=== PATIENT | female | born 1955 | race Caucasian/White ===

== ENCOUNTER → 2018-08-05 07:28 | Outpatient (CLI) | payer MEDICARE, SELFPAY ==
--- NOTE | 2018-08-05 07:38 | CT_ITS ---
STUDY: LOW DOSE CT LUNG CANCER SCREENING REASON FOR EXAM: Female, 63 years old. Patient has a 80 pack-year smoking history. RADIATION DOSAGE (If Supplied By Facility): CTDIvol = ( 2.01 ) mGy, DLP = ( 64.19 ) mGycm TECHNIQUE: No contrast was administered. Low dose technique was utilized (average mAS-38 and kVp 120). 1.25 mm axial source images with a slice interval of 1.25-mm were reconstructed in lung windows. 2.5 mm axial source images with a slice interval of 2.5-mm were reconstructed in lung windows. 5.0 mm axial source images with a slice interval of 5.0-mm were reconstructed in soft tissue windows. Nodule measured using lung windows on PACS and/or independent workstation with automated measurement of minimum and maximum diameter. Nodule measurement reported as average diameter rounded to the nearest whole number. Growth is defined as an increase ins size of greater than 1.5 mm. COMPARISON: None. NODULES: No suspicious nodules seen. Emphysema: Mild degree of emphysematous changes. Aorta: Atherosclerotic plaques of the aortic arch. A vascular stent is seen in the proximal portion of the left subclavian artery. Coronary arteries: Coronary artery calcification. Mediastinal nodes: Small benign-appearing mediastinal lymph nodes. Other chest and abdominal findings: Degenerative changes of the thoracic vertebrae. CT/Low Dose CT Lung Screening IMPRESSION: Lung-RADS category 2 - Continue annual screening with LDCT in 12 months. IMPORTANT NOTES FOR USE: ACR Lung-RADS Version 1.0 Assessment Categories Release Date: February 15, 2014 Category: Coded 0-4 bases on nodule(s) with highest degree of suspicion. Negative screen is defined as categories 1 and 2; a positive screen is defined as categories 3 and 4. Category 3 and 4A nodules that are unchanged on interval CT should be coded as category 2, and individuals returned to screening in 12 months. Category 4X: Category 3 or 4 nodules with additional imaging findings that increase the suspicion of lung cancer, such as spiculation, GGN that doubles in size in 1 year, enlarged lymph notes, etc. Category Modifiers: S (significant finding unrelated to lung cancer) and C (prior history of treated lung cancer) may be added to the 0-4 Lung-RADS Electronically Signed: Nick Cosme MD at 9:35 EDT Tel [phone], Service support ,
== END ==
PROVIDERS: Family Provider Family Medicine; PCP Family Medicine; Referring Provider Family Medicine; Visit Provider Family Medicine
DX: Z87.891 Personal history of nicotine dependence (principal)
CPT/HCPCS: G0297

== ENCOUNTER 2021-07-15 12:16 | Emergency (ER) | payer MEDICARE, SELFPAY ==
[2021-07-15 12:17] VITALS: BP 155/85; PULSE 73; RESP 16; TEMP 36.6; O2SAT 98; BMI 26.6
--- NOTE | 2021-07-15 12:50 | EDS_ITS ---
HPI History of Present Illness Chief Complaint: General Illness Narrative Narrative: 66-year-old female presenting with generalized fatigue, nausea, crampy abdominal pain, headache. Patient states that she initially started having symptoms about 2 weeks ago initially had a fever which is now resolved. She does still have chills and body aches. She denies chest pain. She admits to rhinorrhea and nasal congestion but does not have a significant cough or shortness of breath. Patient states that she has been able to keep down fluids. She is making urine. she states she has been constipated. Patient states that she did meet with her boss who did a rapid Covid today prior to arrival and this was negative. [facility] Medical History FHx: carotid endarterectomy HTN (hypertension) Hyperlipidemia Kidney stone Home Medications amlodipine 5 mg PO DAILY 07/15/21 [History Last Taken Unknown] carvedilol 25 mg PO BID 07/15/21 [History Last Taken Unknown] clopidogrel 75 mg PO DAILY 07/15/21 [History Last Taken Unknown] eszopiclone 3 mg PO QHS 07/15/21 [History Last Taken Unknown] losartan 100 mg PO DAILY 07/15/21 [History Last Taken Unknown] ondansetron 4 mg PO Q8H PRN PRN #14 tab 07/15/21 [Rx Last Taken Unknown] Allergy/AdvReac Type Severity Reaction Status Date / Time codeine AdvReac Nausea/Vom/ Verified 07/15/21 12:18 Diarrhea tramadol AdvReac HALLUCINATI Verified 07/15/21 12:18 ONS Surgical History History of cardiac catheterization History of coronary artery stent placement Hx of cholecystectomy S/P CABG x 1 Social History Smoking Status: Former smoker ROS ROS ED Constitutional Constitutional ED: Reports chills and fever(s) Eyes Eyes: Denies blurry vision or diplopia ENT ENT ED: Reports rhinorrhea and other Details: Nasal congestion Cardiovascular Cardiovascular: Denies chest pain or palpitations Respiratory/Chest Respiratory/Chest: Reports cough; Denies dyspnea or sputum Gastrointestinal Gastrointestinal: Reports abdominal pain, constipation and nausea Genitourinary Genitourinary ED: Denies dysuria Musculoskeletal Musculoskeletal: Reports myalgias; Denies arthralgias, back pain or neck pain Integumentary Denies Abrasions or rash Neurologic Neurologic: Reports headache(s); Denies paresthesias EXAM Physical Exam Const Vital Signs: 07/15/21 12:17 07/15/21 12:45 07/15/21 14:50 Temperature 97.9 F 97.8 F Temperature Source Temporal Oral Pulse Rate 73 71 Respiratory Rate 16 18 Respiratory Effort Short of Breath Respiratory Pattern Normal Blood Pressure 155/85 H 134/77 H Blood Pressure Mean 108 96 Pulse Ox 98 94 Oxygen Delivery Method Room Air Room Air 07/15/21 15:27 Temperature Temperature Source Pulse Rate 68 Respiratory Rate 18 Respiratory Effort Respiratory Pattern Blood Pressure 139/68 H Blood Pressure Mean Pulse Ox Oxygen Delivery Method Positive well nourished General Appearance ED: NAD; Negative for pallor HEENT Reports moist mucous membranes Negative for trauma Eyes PERRL and EOMs intact bilaterally Resp normal respiratory effort and clear to auscultation bilaterally Cardio regular rate and regular rhythm GI non-distended GI Narrative: No focal tenderness. Abdomen nonperitoneal. Palpation: soft Extremity normal to inspection Neuro oriented x3 Sensorium / Orientation: alert Psych mental status grossly normal Skin no rashes or lesions noted General Skin Exam: Negative for jaundice or pallor MDM MDM MDM Narrative Medical decision making narrative: Patient presenting with viral symptoms as well as abdominal pain. I did obtain lab work and she has no leukocytosis and her hemoglobin hematocrit are stable. Renal function and electrolytes unremarkable. LFTs are normal. Lipase is negative. Procalcitonin is negative. Urinalysis urinalysis is negative for infection. Chest x-ray on my interp retation shows no acute cardiopulmonary process and the radiologist does agree. CT of the abdomen pelvis is negative for acute intra-abdominal process. Patient is tested for COVID-19 and this is also negative. She feels improved with Toradol and Zofran. At this point I feel she has a negative work-up and she is safe to be discharged home. She is given return precautions. She will be given a prescription for Zofran for home. Impression: 1. Viral syndrome 2. Abdominal pain Lab Data Attestation: I reviewed the patient's lab results. Labs: Laboratory Results - last 24 hr 07/15/21 07/15/21 07/15/21 13:00 13:00 13:00 WBC 6.4 RBC 3.65 L Hgb 11.2 L Hct 34.4 L MCV 94.2 MCH 30.7 MCHC 32.6 RDW Std Deviation 51.7 H RDW Coeff of Dave 15.0 H Plt Count 202 MPV 12.6 H Immature Gran % (Auto) 0.500 Neut % (Auto) 63.5 Lymph % (Auto) 24.2 [place] % (Auto) 7.5 Eos % (Auto) 4.1 Baso % (Auto) 0.2 Absolute Neuts (auto) 4.0 Absolute Lymphs (auto) 1.54 Nucleated RBC % 0 Sodium 139 Potassium 4.3 Chloride 107 Carbon Dioxide 26.0 Anion Gap 6 BUN 16 Creatinine 1.10 H Estim Creat Clear Calc 36.94 Est GFR (MDRD) Af Amer 64 Est GFR (MDRD) Non-Af 53 L BUN/Creatinine Ratio 14.5 Glucose 93 Calcium 10.0 Total Bilirubin 0.40 AST 24 ALT 21 Alkaline Phosphatase 105 Total Protein 8.6 H Albumin 3.9 Globulin 4.7 H Albumin/Globulin Ratio 0.8 L Lipase 231 Procalcitonin < 0.04 Urine Color Urine Clarity Urine pH Ur Specific [place] Urine Protein Urine Glucose (UA) Urine Ketones Urine Occult Blood Urine Nitrite Urine Bilirubin Urine Urobilinogen Ur Leukocyte Esterase Urine RBC Urine WBC Ur Squamous Epith Cells Urine Bacteria Urine Mucus COVID-19 (TL) 07/15/21 07/15/21 13:11 14:20 WBC RBC Hgb Hct MCV MCH MCHC RDW Std Deviation RDW Coeff of Dave Plt Count MPV Immature Gran % (Auto) Neut % (Auto) Lymph % (Auto) [place] % (Auto) Eos % (Auto) Baso % (Auto) Absolute Neuts (auto) Absolute Lymphs (auto) Nucleated RBC % Sodium Potassium Chloride Carbon Dioxide Anion Gap BUN Creatinine Estim Creat Clear Calc Est GFR (MDRD) Af Amer Est GFR (MDRD) Non-Af BUN/Creatinine Ratio Glucose Calcium Total Bilirubin AST ALT Alkaline Phosphatase Total Protein Albumin Globulin Albumin/Globulin Ratio Lipase Procalcitonin Urine Color Yellow Urine Clarity Clear Urine pH 6.5 Ur Specific [place] 1.010 Urine Protein Negative Urine Glucose (UA) Normal Urine Ketones Negative Urine Occult Blood Negative Urine Nitrite Negative Urine Bilirubin Negative Urine Urobilinogen Normal Ur Leukocyte Esterase Negative Urine RBC 0 SEEN Urine WBC 0 SEEN Ur Squamous Epith Cells 0 SEEN Urine Bacteria 0 SEEN Urine Mucus 0 SEEN COVID-19 (TL) Not Detected Radiography Diagnostic Testing: Radiology Impression Abdomen/Pelvis CT 07/15/21 13:04 IMPRESSION: No acute abnormality. Severe coronary artery disease and atherosclerosis. Electronically Signed: Feli Reeves MD at 15:06 EDT Tel , Service support , Chest X-Ray 07/15/21 13:04 IMPRESSION: Cardiomegaly with no acute or active cardiopulmonary disease. Electronically Signed: Venkata Alcaraz MD at 14:51 EDT , Service support , Discharge Plan Triage Chief Complaint: General Illness ED Provider: Yasir Byrnes Dx/Rx/DC Orders Instructions: Understanding Headache Pain, ED Abdominal Pain Unkn Cause Fem, ED Viral Syndrome (Adult) Prescriptions: New ondansetron 4 mg tablet,disintegrating 4 mg PO Q8H PRN PRN (Reason: Nausea) Qty: 14 RF: 0 No Action carvedilol 25 mg tablet 25 mg PO BID RF: 0 clopidogrel 75 mg tablet 75 mg PO DAILY RF: 0 amlodipine 5 mg tablet 5 mg PO DAILY RF: 0 losartan 100 mg tablet 100 mg PO DAILY RF: 0 eszopiclone 3 mg tablet 3 mg PO QHS RF: 0 Primary Care Provider: Markell Harris NP Referrals: Markell Harris NP, CAT SCANNER OPERATOR-C [Primary Care Provider] - Disposition Disposition: Home, Self Care Discharge Date/Time: 07/15/21 15:29
--- NOTE | 2021-07-15 13:04 | CT_ITS ---
STUDY: CT ABDOMEN AND PELVIS WITH CONTRAST REASON FOR EXAM: Female, 66 years old. Abdominal pain RADIATION DOSAGE (If Supplied By Facility): CTDIvol = ( 14.65 ) mGy, DLP = ( 754.75 ) mGycm TECHNIQUE: CT images were obtained from the dome of the diaphragm to the symphysis pubis without oral contrast. IV 100mL Isovue-370 was administered. Sagittal and coronal images were reconstructed. Individualized dose optimization techniques were used for this CT. COMPARISON: None. FINDINGS: The visualized lung bases are unremarkable. Coronary arteries are severely diseased with stents in the LAD and RCA. Normal liver. There is mild physiologic range extrahepatic biliary dilation. Gallbladder is removed.. Normal spleen. Normal pancreas. Normal bilateral adrenal glands. Normal right kidney. Normal left kidney. There are simple bilateral renal cysts not requiring further diagnostic evaluation. There is no intestinal obstruction. Appendix is not seen. There is sigmoid diverticulosis without diverticulitis. Aorta is normal caliber with heavy calcified plaque burden without aneurysm or stenosis. Normal urinary bladder. Uterus is removed. Normal abdominal wall. There are chronic compression deformities of superior endplates of L1 and L4. CT/Abdomen/Pelvis W IV Cont ONLY IMPRESSION: No acute abnormality. Severe coronary artery disease and atherosclerosis. Electronically Signed: Feli Reeves MD at 15:06 EDT Tel , Service support ,
--- NOTE | 2021-07-15 13:04 | RAD_ITS ---
STUDY: X-RAY CHEST REASON FOR EXAM: Female, 66 years old. Cough. TECHNIQUE: Single frontal view of the chest. COMPARISON: None. FINDINGS: The lungs are clear and expanded. There is no demonstrated pleural abnormality. Cardiomegaly with aortic tortuosity. Normal mediastinum and juventino. Normal visualized pulmonary arteries. There is no demonstrated abnormality of the visualized soft tissue structures of the upper abdomen. RAD/Chest 1 View (Portable) IMPRESSION: Cardiomegaly with no acute or active cardiopulmonary disease. Electronically Signed: Venkata Alcaraz MD at 14:51 EDT , Service support ,
[2021-07-15 13:18] LABS: Absolute Lymphocyte Count 1.54 X10^3/uL (0.83-4.51); Basophil# 0.01 X10^3/uL; Basophil% 0.2 % (0-1); Eosinophil# 0.26 X10^3/uL; Eosinophils% 4.1 % (0-5); Hematocrit 34.4 % (37-47); Hemoglobin 11.2 g/dL (12.0-15.0); Lymphocyte # 1.54 X10^3/ul (0.83-4.51); Lymphocyte % 24.2 % (19-41); Mean Corp Hgb Conc 32.6 g/dL (32-36); Mean Corpuscular Hgb 30.7 pg (27.0-32.0); Mean Corpuscular Volume 94.2 fL (81-99); Mean Platelet Vol. 12.6 fl (6.2-12.0); Monocyte# 0.48 X10^3/uL; Monocyte% 7.5 % (0-10); NRBC Flagged by Analyzer 0 % (0-5); Neutrophil # 4.04 X10^3/uL (2.7-7.7); Neutrophil % 63.5 % (47-70); Platelet Count 202 K/mm3 (150-450); RBC Distribution Width SD 51.7 fl (35.1-43.9); Red Blood Count 3.65 M/mm3 (4.2-5.4); White Blood Count 6.4 K/mm3 (4.4-11.0)
[2021-07-15] MEDS: Ondansetron 4 MG/2 ML Vial IV (13:18)
[2021-07-15] MEDS: Ketorolac 15 MG/ML Vial IV (13:18)
[2021-07-15 13:37] LABS: ALB/GLOB Ratio 0.8 RATIO (0.9-2.4); AST(SGOT) 24 U/L (15-37); Alanine Aminotransfer ALT/SGPT 21 U/L (13-56); Albumin, Serum 3.9 g/dL (3.2-5.0); Alkaline Phosphatase 105 U/L (45-117); Anion Gap 6 (5-15); BUN 16 mg/dL (7-18); BUN/Creat Ratio 14.5 RATIO (10-20); Chloride 107 mmol/L (98-107); EST Glomerular Filtration Rate 53 mL/min (>60); Est Glom Filt Rate - Afr Amer 64 mL/min (>60); Estimated Creatinine Clearance 36.94 ml/min; Globulin 4.7 g/dL (2.2-4.2); Glucose 93 mg/dL (74-106); Lipase 231 U/L (73-393); Potassium 4.3 mmol/L (3.5-5.1); Protein, Total 8.6 g/dL (6.4-8.2); Sodium Level 139 mmol/L (136-145)
[2021-07-15 14:02] LABS: Procalcitonin < 0.04 ng/mL (0.00-0.09)
[2021-07-15 14:50] VITALS: BP 134/77; PULSE 71; RESP 18; TEMP 36.6; O2SAT 94
[2021-07-15 14:58] LABS: Bacteria 0 SEEN /hpf (None Seen); Mucous, Urine 0 SEEN /hpf (<or=2+); Red Blood Cells-Urine 0 SEEN /hpf (0-5); Squamous Epithelial Cells - UA 0 SEEN /hpf (5-10); White Blood Cells 0 SEEN /hpf (0-5)
[2021-07-15 15:02] LABS: Color, Urine Yellow (Yellow); Glucose, Dipstick Normal (Normal); Ketone-Dipstick Negative (Negative); Leukocyte Esterase-Dipstick Negative /ul (Negative); Nitrite-Dipstick Negative (Negative); Occult Blood-Urine Negative /ul (Negative); Protein-Dipstick Negative (Negative); Urine Bilirubin Dipstick Negative (Negative); Urine Clarity Clear (Clear); Urine Urobilinogen Normal (Normal); Urine pH 6.5 (5.0 - 8.0)
[2021-07-15 15:27] VITALS: BP 139/68; PULSE 68; RESP 18
== END 2021-07-15 15:29 | disposition home or self-care (01) ==
PROVIDERS: Emergency Provider Student in an Organized Health Care Education/Training Program; PCP Nurse Practitioner Primary Care
DX: B34.9 Viral infection, unspecified (principal); R05 Cough; M79.10 Myalgia, unspecified site; R10.9 Unspecified abdominal pain; R11.0 Nausea; Z20.822 Contact with and (suspected) exposure to COVID-19; R51.9 Headache, unspecified; R09.81 Nasal congestion; J34.89 Other specified disorders of nose and nasal sinuses; K59.00 Constipation, unspecified; Z79.899 Other long term (current) drug therapy; Z79.02 Long term (current) use of antithrombotics/antiplatelets; Z95.5 Presence of coronary angioplasty implant and graft; Z95.1 Presence of aortocoronary bypass graft; Z87.891 Personal history of nicotine dependence
CPT/HCPCS: 71045; 74177; 80053; 81001; 83690; 84145; 85025; 87635; 96374; 96375; 99284; Q9967; U0005; A4216; J2405; U0003

== ENCOUNTER 2024-04-19 13:08 | Emergency (ER) | payer MEDICARE, SELFPAY ==
[2024-04-19] VITALS (7 sets, daily range): BP systolic 132–163; BP diastolic 58–115; PULSE 64–93; RESP 14–17; TEMP 36.3–37.2; O2SAT 94–98; BMI 26.1
[2024-04-19 13:40] LABS: Absolute Lymphocyte Count 0.74 X10^3/uL (0.83-4.51); Absolute Neutrophil Count 13.1 X10^3/uL (2.0-7.7); Basophil# 0.01 X10^3/uL; Basophil% 0.1 % (0-1); Hematocrit 30.1 % (37-47); Hemoglobin 9.9 g/dL (12.0-15.0); Lymphocyte # 0.74 X10^3/ul (0.83-4.51); Mean Corp Hgb Conc 32.9 g/dL (32-36); Mean Corpuscular Hgb 31.4 pg (27.0-32.0); Mean Corpuscular Volume 95.6 fL (81-99); Mean Platelet Vol. 11.5 fl (6.2-12.0); Monocyte# 0.79 X10^3/uL; Monocyte% 5.4 % (0-10); NRBC Flagged by Analyzer 0 % (0-5); Neutrophil % 88.9 % (47-70); Platelet Count 200 K/mm3 (150-450); RBC Distribution Width CV 15.9 % (11.6-14.6); RBC Distribution Width SD 55.2 fl (35.1-43.9); Red Blood Count 3.15 M/mm3 (4.2-5.4); White Blood Count 14.7 K/mm3 (4.4-11.0)
[2024-04-19 13:58] LABS: ALB/GLOB Ratio 0.5 RATIO (0.9-2.4); AST(SGOT) 34 U/L (15-37); Alanine Aminotransfer ALT/SGPT 41 U/L (13-56); Albumin, Serum 2.8 g/dL (3.2-5.0); Alkaline Phosphatase 153 U/L (45-117); Anion Gap 12 (5-15); BUN 29 mg/dL (7-18); Calcium,Total 9.7 mg/dL (8.5-10.1); Chloride 93 mmol/L (98-107); Creatinine, Serum 1.45 mg/dL (0.55-1.02); EST Glomerular Filtration Rate 38 mL/min (>60); Est Glom Filt Rate - Afr Amer 46 mL/min (>60); Estimated Creatinine Clearance 30.64 ml/min; Globulin 5.4 g/dL (2.2-4.2); Glucose 124 mg/dL (74-106); Lipase 43 U/L (13-75); Potassium 4.4 mmol/L (3.5-5.1); Protein, Total 8.2 g/dL (6.4-8.2); Sodium Level 128 mmol/L (136-145)
--- NOTE | 2024-04-19 14:11 | CT_ITS ---
STUDY: CT Abdomen And Pelvis W/ Contrast Injection 04/19/2024 3:03 PM REASON FOR EXAM: Female, 68 years old. Abdominal pain llq abdominal pain Individualized dose optimization techniques were used for this CT. COMPARISON: 07.15.21 TECHNIQUE: CT Abdomen And Pelvis W/ Contrast Injection IV 70mL Isovue-370 FINDINGS: There are atherosclerotic calcifications of visualized coronary arteries. There are bilateral pleural effusions. There is intrahepatic ductal dilation. There is non-visualization of the gallbladder, which may be secondary to either contraction or a prior cholecystectomy. Normal spleen. Normal pancreas. Dilated common bile duct at 9 mm. Normal bilateral adrenal glands. There are hypodensities in the right kidney. These are consistent for cysts. No follow up required. There are hypodensities in the left kidney. These are consistent for cysts. No follow up required. Normal visualized stomach. Normal small intestine. There are multiple colonic diverticula consistent with diverticulosis. There is non-visualization of the appendix. There are calcifications of the abdominal aorta. This is consistent for atherosclerotic disease. There is NO abdominal aortic aneurysm. Vascular workup can be obtained based on clinical correlation. Normal inferior vena cava. Subcentimeter mesenteric lymph nodes. Normal urinary bladder. There is absence of the uterus consistent with a prior hysterectomy. Normal abdominal wall. Normal osseous structures. CT/Abdomen/Pelvis W IV Cont ONLY IMPRESSION: (NOT LISTED IN ORDER OF SIGNIFICANCE) Dilated common bile duct. MRCP can better evaluate. There is intrahepatic ductal dilation. Stable bilateral renal cysts. Other findings as above. Electronically Signed: Herman Trujillo MD at 15:07 EDT ,
--- NOTE | 2024-04-19 14:14 | EX.ED.DYSGE1 ---
HPI History of Present Illness Chief Complaint: Abd Pain Narrative Narrative: Patient presenting here today with multiple complaints. She states that initially she had an injury to the left hip a few months ago when she fell in the shower and she has been having pain in this left hip since then. She had it imaged initially and she is actually had an MRI as well. She states it continues to hurt when she walks but she is able to ambulate. Initially it was thought maybe she broke the hip but she never had an identified hip fracture. She states that her primary care physician wrote her for some narcotic pain medication but she stopped taking it because it was making her constipated. She has not had a bowel movement in 5 days. She states has been trying laxatives without any relief. Patient states she also has had a fever of with a Tmax of 100.9 over the last couple days. She states when she coughs she does have some green sputum. She does feel rundown. Family states she is not eating and drinking much the last few days. No urinary or vaginal complaints. Denies chest pain or shortness of breath. Patient states that even though she already had an MRI her primary care sent her back for a CT of the hip with IV contrast. This also showed What looked like arthritis. [facility] Medical History Kidney stone FHx: carotid endarterectomy Hyperlipidemia HTN (hypertension) Home Medications ?Medication ?Instructions ?Recorded ?Last Taken ?Type amlodipine 5 mg tablet 5 mg PO DAILY 07/15/21 04/13/24 History carvedilol 25 mg tablet 25 mg PO BID 07/15/21 04/06/24 History clopidogrel 75 mg tablet 75 mg PO DAILY 07/15/21 04/13/24 History eszopiclone 3 mg tablet 3 mg PO QHS 07/15/21 04/06/24 History losartan 100 mg tablet 100 mg PO DAILY 07/15/21 04/06/24 History ondansetron 4 mg disintegrating 4 mg PO Q8H PRN PRN Nausea #14 tabs 07/15/21 04/06/24 Rx tablet Allergy/AdvReac Type Severity Reaction Status Date / Time codeine AdvReac Nausea/Vom/ Verified 04/19/24 15:11 Diarrhea tramadol AdvReac HALLUCINATI Verified 04/19/24 15:11 ONS Surgical History Hx of cholecystectomy S/P CABG x 1 History of coronary artery stent placement History of cardiac catheterization Social History Smoking Status: Former smoker ROS ROS ED Constitutional Constitutional ED: Reports chills and fever(s); Denies sweats Eyes Eyes: Denies blurry vision or change in vision ENT ENT ED: Denies ear pain or sore throat Cardiovascular Cardiovascular: Denies chest pain, palpitations or racing heartbeat Respiratory/Chest Respiratory/Chest: Reports cough; Denies dyspnea, dyspnea on exertion or sputum Gastrointestinal Gastrointestinal: Reports abdominal pain, constipation and nausea; Denies diarrhea or vomiting Genitourinary Genitourinary ED: Denies dysuria, hematuria or urinary frequency Musculoskeletal Musculoskeletal: Denies arthralgias, myalgias or neck pain Integumentary Denies abscess, Abrasions or rash Neurologic Neurologic: Denies headache(s), paresthesias or weakness Psychiatric Psychiatric: Denies anxiety, depression, suicidal ideation or suicidal thoughts Endocrine Endocrinology: Denies polydipsia or polyuria EXAM Physical Exam Const Vital Signs: 04/19/24 13:09 04/19/24 13:09 04/19/24 13:10 Temperature 97.3 F L 97.3 F L Temperature Source Oral Oral Pulse Rate 93 89 93 Respiratory Rate 14 14 14 Blood Pressure 163/115 H 163/115 H 163/115 H Blood Pressure Mean 131 131 131 Pulse Ox 97 97 97 Oxygen Delivery Method Room Air Room Air Room Air 04/19/24 14:10 04/19/24 15:00 04/19/24 15:08 Temperature 98.9 F 98.6 F 98.6 F Temperature Source Temporal Oral Oral Pulse Rate 64 87 87 Respiratory Rate 16 17 17 Blood Pressure 132/76 H 134/58 H 134/58 H Blood Pressure Mean 94 83 83 Pulse Ox 98 95 95 Oxygen Delivery Method Room Air Room Air Room Air 04/19/24 16:00 Temperature 98.6 F Temperature Source Oral Pulse Rate 89 Respiratory Rate 17 Blood Pressure 144/66 H Blood Pressure Mean 92 Pulse Ox 94 Oxygen Delivery Method Room Air Positive well nourished General Appearance ED: NAD; Negative for pallor HEENT Reports moist mucous membranes Eyes PERRL and EOMs intact bilaterally Chest Wall inspection of chest normal Resp normal respiratory effort and clear to auscultation bilaterally Auscultation: Negative for rales, rhonchi or wheezes Cardio regular rate and regular rhythm GI normal to inspection, nondistended, normoactive bowel sounds Extremity Extremity Narrative: There is mild tenderness to palpation to the left hip. Unable to there is some internally actually rotated with minimal limitation. Patient is able to flex the hip on the bed yesterday. On any difficulty. Past no rashes or bruising. Neuro oriented x3 and CN's II-XII intact bilaterally Sensorium / Orientation: alert Psych mental status grossly normal Skin no rashes or lesions noted General Skin Exam: Negative for jaundice or pallor MDM MDM MDM Narrative Medical decision making narrative: Patient presenting with hip pain. She is already had an MRI and a CT. I was able to log into [employer], and I was able to find pertinent medical records available for review to compare to the patient's current lab/imaging/workup. CT head. 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 I cannot find the MRI image. Her CBC showed a white blood cell count of 12.7. Hemoglobin was 10. Platelets were 243. She had an ESR of 109 and a CRP of 5.8. Today her CBC shows a leukocytosis of 14.7. Hemoglobin 9.9 and near her baseline. Creatinine is elevated today at 1.45. Baseline creatinine appears to be 1.27. Patient is given IV fluids. She is given Reglan for nausea. She declines analgesia as she is concerned it might be making her more constipated. Patient presenting with right flank pain. Differential includes colitis, diverticulitis, gastritis, pancreatitis, constipation, UTI, pyelonephritis, renal calculi, ureteral calculi, bowel obstruction, malignancy, dehydration, electrolyte abnormalities. CBC will be obtained to assess white blood cell count, hemoglobin, platelets. CMP to assess renal function, electrolytes, liver function, glucose. Lipase to assess for pancreatitis. Urinalysis to assess for UTI. I held off on imaging of the hip today because she just had a CT scan which I could find. It does appear that she has advanced osteonecrosis based on the CT scan. I do not believe she has a septic hip however. Lipase is normal today. LFTs appear normal. CT of the abdomen pelvis interpreted as dilated common bile ducts and intrahepatic ducts however the patient does have any pain in this region. Her LFTs are normal with exception of an alkaline phosphatase of 153. Patient does not have a gallbladder. COVID, RSV, influenza are negative. I have not found a source of her fever but we discussed this it could be viral. I will send her home with some nausea medicine. I recommended laxatives that she is not having bowel movements. Tylenol and ibuprofen for fevers and myalgias. She has an orthopedic appointment next week for her hip. 1. Abdominal pain 2. Febrile illness 3. Leukocytosis 4. Left hip osteonecrosis Lab Data Attestation: I reviewed the patient's lab results. Labs: Laboratory Results - last 24 hr 04/19/24 04/19/24 13:32 14:27 WBC 14.7 H RBC 3.15 L Hgb 9.9 L Hct 30.1 L MCV 95.6 MCH 31.4 MCHC 32.9 RDW Std Deviation 55.2 H RDW Coeff of Dave 15.9 H Plt Count 200 MPV 11.5 Immature Gran % (Auto) 0.600 Neut % (Auto) 88.9 H Lymph % (Auto) 5.0 L [place] % (Auto) 5.4 Eos % (Auto) 0.0 Baso % (Auto) 0.1 Absolute Neuts (auto) 13.1 H Absolute Lymphs (auto) 0.74 L Nucleated RBC % 0 Sodium 128 L Potassium 4.4 Chloride 93 L Carbon Dioxide 23.0 Anion Gap 12 BUN 29 H Creatinine 1.45 H Estim Creat Clear Calc 30.64 Est GFR (MDRD) Af Amer 46 L Est GFR (MDRD) Non-Af 38 L BUN/Creatinine Ratio 20.0 Glucose 124 H Calcium 9.7 Total Bilirubin 0.80 AST 34 ALT 41 Alkaline Phosphatase 153 H Total Protein 8.2 Albumin 2.8 L Globulin 5.4 H Albumin/Globulin Ratio 0.5 L Lipase 43 Urine Color Yellow Urine Clarity Sl. Cloudy Urine pH 5.0 Ur Specific [place] 1.015 Urine Protein 100 H Urine Glucose (UA) Normal Urine Ketones Negative Urine Occult Blood 50 H Urine Nitrite Negative Urine Bilirubin Negative Urine Urobilinogen Normal Ur Leukocyte Esterase 500 H Urine RBC 0 SEEN Urine WBC 25-50 SEEN Ur Squamous Epith Cells 5-10 SEEN Urine Bacteria 2+ Fine Granular Casts 0-5 SEEN Urine Mucus 0 SEEN Radiography Diagnostic Testing: Clinical Impression(s) from Imaging Studies Abdomen/Pelvis CT 04/19/24 14:11 IMPRESSION: (NOT LISTED IN ORDER OF SIGNIFICANCE) Dilated common bile duct. MRCP can better evaluate. There is intrahepatic ductal dilation. Stable bilateral renal cysts. Other findings as above. Electronically Signed: Herman rTujillo MD at 15:07 EDT , Chest X-Ray 04/19/24 14:43 IMPRESSION: There are no acute findings. Electronically Signed: Herman Trujillo MD at 15:00 EDT , Discharge Plan Triage Chief Complaint: Abd Pain Other Complaint: Back Fever ED Provider: Yasir Byrnes Dx/Rx/DC Orders Prescriptions: No Action carvedilol 25 mg tablet 25 mg PO BID Patient Comments: TAKE 1 TABLET BY MOUTH TWICE DAILY. clopidogrel 75 mg tablet 75 mg PO DAILY Patient Comments: TAKE 1 TABLET BY MOUTH EVERY DAY amlodipine 5 mg tablet 5 mg PO DAILY Patient Comments: TAKE 1 TABLET BY MOUTH EVERY DAY losartan 100 mg tablet 100 mg PO DAILY Patient Comments: TAKE 1 TABLET BY MOUTH EVERY DAY eszopiclone 3 mg tablet 3 mg PO QHS Patient Comments: TAKE ONE TABLET BY MOUTH AT BEDTIME NEEDED FOR INSOMNIA ondansetron 4 mg tablet,disintegrating 4 mg PO Q8H PRN PRN (Reason: Nausea) Qty: 14 0RF Primary Care Provider: Markell Harris NP Referrals: Markell Harris ROOFING SUPERVISOR, ROOFING SUPERVISOR-C [Primary Care Provider] - Print Language: [place] Islander
[2024-04-19] MEDS: 0.9% Normal Saline (1000mL) 1,000 ML 999 ML IV (14:29)
[2024-04-19] MEDS: Metoclopramide 10 MG/2 ML Vial IV (14:29)
[2024-04-19 14:33] LABS: Mucous, Urine 0 SEEN /hpf (<or=2+); Red Blood Cells-Urine 0 SEEN /hpf (0-5)
[2024-04-19 14:34] LABS: Color, Urine Yellow (Yellow); Glucose, Dipstick Normal (Normal); Ketone-Dipstick Negative (Negative); Leukocyte Esterase-Dipstick 500 /ul (Negative); Nitrite-Dipstick Negative (Negative); Occult Blood-Urine 50 /ul (Negative); Protein-Dipstick 100 mg/dl (Negative); Specific Gravity, Urine 1.015 (1.002-1.030); Urine Bilirubin Dipstick Negative (Negative); Urine Clarity Sl. Cloudy (Clear); Urine Urobilinogen Normal (Normal)
[2024-04-19 14:41] LABS: Bacteria 2+ /hpf (None Seen); Squamous Epithelial Cells - UA 5-10 SEEN /hpf (5-10)
[2024-04-19 14:42] LABS: Fine Granular Cast- Urine 0-5 SEEN /lpf (0-5); White Blood Cells 25-50 SEEN /hpf (0-5)
--- NOTE | 2024-04-19 14:43 | RAD_ITS ---
STUDY: XR Chest 1 View 04/19/2024 2:36 PM REASON FOR EXAM: Female, 68 years old. fever COMPARISON: 07/15/2021 TECHNIQUE: XR Chest 1 View FINDINGS: There is no demonstrated pleural abnormality. Normal heart size. Normal mediastinum. Normal juventino. Prominent appearing increased interstitial lung markings. Normal visualized pulmonary arteries. There is atherosclerotic calcification of the aortic arch with tortuosity. There are diffuse degenerative changes of the visualized thoracic spine. There is degenerative osteoarthritis of the bilateral shoulders. There are no acute findings of the upper abdomen. RAD/Chest 1 View IMPRESSION: There are no acute findings. Electronically Signed: Herman Trujillo MD at 15:00 EDT ,
== END 2024-04-19 16:28 | disposition home or self-care (01) ==
PROVIDERS: Emergency Provider Student in an Organized Health Care Education/Training Program; PCP Nurse Practitioner Primary Care; Visit Provider Student in an Organized Health Care Education/Training Program
DX: R10.9 Unspecified abdominal pain (principal); M87.852 Other osteonecrosis, left femur; R50.9 Fever, unspecified; M79.10 Myalgia, unspecified site; R11.0 Nausea; K59.00 Constipation, unspecified; I10 Essential (primary) hypertension; E78.5 Hyperlipidemia, unspecified; R05.9 Cough, unspecified; D72.829 Elevated white blood cell count, unspecified; Z11.52 Encounter for screening for COVID-19; Z79.02 Long term (current) use of antithrombotics/antiplatelets; Z79.899 Other long term (current) drug therapy; Z87.891 Personal history of nicotine dependence; Z95.1 Presence of aortocoronary bypass graft; Z95.5 Presence of coronary angioplasty implant and graft
CPT/HCPCS: 71045; 74177; 80053; 81001; 83690; 85025; 87631; 96361; 96374; 99285; Q9967; A4216

== ENCOUNTER 2024-08-16 17:47 | Observation (INO) | payer MEDICARE, SELFPAY ==
[2024-08-16 17:48] VITALS: BP 125/74; PULSE 77; RESP 18; TEMP 35.9; O2SAT 95; BMI 24.1
--- NOTE | 2024-08-16 18:09 | CT_ITS ---
EXAM: CT HEAD WITHOUT INTRAVENOUS CONTRAST CLINICAL INDICATION: confusion TECHNIQUE: Multiple axial images were obtained of the head without intravenous contrast. This CT exam was performed using one or more of the following dose reduction techniques: automated exposure control, adjustment of the mA and/or kV according to patient size, and/or use of iterative reconstruction technique. RADIATION DOSE: CTDIvol = 44.99 mGy, DLP = 779.24 mGy-cm. COMPARISON: No relevant prior studies available. FINDINGS: BRAIN AND EXTRA-AXIAL SPACES: Mild patchy low attenuation deep periventricular and subcortical chronic white matter changes. Minimal cerebral volume loss. No intra- or extra-axial hemorrhage. No evidence of acute infarct. No intracranial mass or mass effect. There is preservation of the nolasco/white matter interface. Posterior fossa structures are unremarkable. No hydrocephalus. Basal cisterns are patent. BONES/JOINTS: See below. SINUSES: Moderate mucosal thickening filling roughly half of the left maxillary sinus, no fluid levels. Remainder of the completely included paranasal sinuses are well aerated. Large defect in the cartilaginous nasal septum, 1.8 cm AP. MASTOID AIR CELLS: Unremarkable. Clear. ORBITS: Visualized globes, extraocular muscles, optic nerves and retrobulbar fat appear unremarkable. CT/Brain/Head without Contrast IMPRESSION: No acute findings in the head/brain. Mild chronic changes. Electronically Signed: Lois Beckett MD at 21:08 EDT ,
--- NOTE | 2024-08-16 18:09 | EKG12_ITS ---
Test Reason : CONFUSED Blood Pressure : / mmHG Vent. Rate : 071 BPM Atrial Rate : 071 BPM P-R Int : 148 ms QRS Dur : 084 ms QT Int : 434 ms P-R-T Axes : 014 052 063 degrees QTc Int : 471 ms Normal sinus rhythm Normal ECG Confirmed by REGINA ROGERS, RANJITH ([id number]), television news video editor ANN WHITE ([id number]) on 08/18/2024 7:54:27 AM Referred By: Confirmed By:RANJITH TAPIA MD
--- NOTE | 2024-08-16 18:14 | NURSING ---
NO OLD EKGS
--- NOTE | 2024-08-16 18:15 | EX.ED.DYSGE1 ---
HPI <JOSE Ruvalcaba - Last Filed: 08/16/24 22:11> History of Present Illness Chief Complaint: Confusion Narrative Narrative: Patient is a 69-year-old female with history of hypertension, recently had a right hip replacement presents to the [facility] with her daughter for confusion. Patient states that she is currently on oxycodone for pain, she took 1 at roughly 5 PM. She then was staring at the wall, started crying, asking for her mother and was not answering the daughter. Patient states that she sometimes does get sleepy on oxycodone however this was different. They then brought her to the emergency department. Patient does have a pale appearance however did not complain of any other problems. Patient that she has been having dark stools recently. Denies any fever or chills. PFSH <JOSE Ruvalcaba - Last Filed: 08/16/24 22:11> PFSH Medical History Kidney stone FHx: carotid endarterectomy Hyperlipidemia HTN (hypertension) Home Medications ?Medication ?Instructions ?Recorded ?Last Taken ?Type amlodipine 5 mg tablet 5 mg PO DAILY 07/15/21 04/13/24 History carvedilol 25 mg tablet 25 mg PO BID 07/15/21 04/06/24 History clopidogrel 75 mg tablet 75 mg PO DAILY 07/15/21 04/13/24 History eszopiclone 3 mg tablet 3 mg PO QHS 07/15/21 04/06/24 History ondansetron 4 mg disintegrating 4 mg PO Q8H PRN PRN Nausea #14 tabs 07/15/21 04/06/24 Rx tablet apixaban 5 mg tablet (Eliquis) 5 mg PO BID 08/16/24 Unknown History doxycycline hyclate 100 mg capsule 100 mg PO Q12.TCU 08/16/24 Unknown History duloxetine 60 mg capsule,delayed 60 mg PO DAILY 08/16/24 Unknown History release ferrous sulfate PO 08/16/24 Unknown History oxycodone 5 mg tablet 5 - 10 mg PO Q4H PRN PRN pain 08/16/24 Unknown History pantoprazole 40 mg tablet,delayed 40 mg PO DAILY 08/16/24 Unknown History release trazodone 50 mg tablet 50 mg PO QHS 08/16/24 Unknown History verapamil 120 mg tablet,extended 120 mg PO DAILY 08/16/24 Unknown History release Allergy/AdvReac Type Severity Reaction Status Date / Time codeine AdvReac Nausea/Vom/ Verified 08/16/24 17:57 Diarrhea Surgical History Hx of cholecystectomy S/P CABG x 1 History of coronary artery stent placement History of cardiac catheterization Social History Smoking Status: Former smoker ROS <JOSE Ruvalcaba - Last Filed: 08/16/24 22:11> ROS ED ROS Narrative Constitutional: Negative for fever, chills, weight loss. Positive for weakness Eyes: Negative for vision loss, vision change, double vision ENT: Negative for any sore throat, ear pain, congestion Cardiovascular: Negative for any chest pain, tightness, palpitations Respiratory: Negative for any cough, sputum production, hemoptysis, dyspnea, dyspnea on exertion, orthopnea Gastrointestinal: Negative for any abdominal pain, nausea, vomiting, diarrhea, constipation, blood in stool, blood in vomit. Positive for dark stool : Negative for any urinary frequency, dysuria, retention, blood in urine Muscle skeletal: Negative for any neck pain, back pain Neurological: Negative for any headache, syncope, dizziness. Positive for confusion Skin: Negative for any rashes, itching, abrasions, lacerations Psychiatric: Negative for any depression, anxiety, stress, suicidal ideation, homicidal ideation Hematologic: Negative for any excessive bruising, easy bleeding EXAM <JOSE Ruvalcaba - Last Filed: 08/16/24 22:11> Physical Exam Narrative Exam Narrative: Vital signs reviewed. Patient on my initial evaluation had stable vital signs. Patient is alert and orient x 4. Patient does have a significant pale appearance. HEET: Head normocephalic atraumatic, TMs clear bilaterally. Posterior pharynx is clear, dry mucous membranes. Nares clear bilaterally. Pale conjunctiva Neck: Supple with no lymphadenopathy or tenderness. No signs of meningismus. Cardiac: Regular rate and rhythm no murmurs gallops or rubs, equal peripheral pulses bilaterally. Respiratory: Lungs clear to auscultation bilaterally. No chest tenderness. Abdomen: Soft, nontender, nondistended. No abdominal bruit or pulsatile masses. No hepatosplenomegaly Extremities: No peripheral edema, no signs of gross trauma or deformity. Active full range of motion of all extremities. Neuro: Cranial nerves II through XII intact, no focal neurological deficits. Skin: Clean dry and intact with no rash, purpura, petechiae, vesicles or pustules. Backs/flank: No CVA tenderness, no midline spinal tenderness, no deformity. Psych: Normal mood and affect. No SI, HI or acute psychosis. Rectal: Rectal exam completed with female nurse mauro Alegria, there was no dried blood, there was no stool in the rectal vault, there is no stool in my finger. Const Vital Signs: 08/16/24 17:48 08/16/24 19:58 08/16/24 20:45 Temperature 96.7 F L Temperature Source Oral Pulse Rate 77 76 Pulse Rate [Lying] 74 Pulse Rate [Sitting (for 1 minute prior to obtaining)] 79 Pulse Rate [Standing (for 1 minute prior to obtaining)] 80 Respiratory Rate 18 18 Blood Pressure 125/74 H 114/71 Blood Pressure [Lying] 105/84 H Blood Pressure [Sitting (for 1 minute prior to obtaining)] 115/68 Blood Pressure [Standing (for 1 minute prior to obtaining)] 115/62 Blood Pressure Mean 91 85 Blood Pressure Mean [Lying] 91 Blood Pressure Mean [Sitting (for 1 minute prior to obtaining)] 83 Blood Pressure Mean [Standing (for 1 minute prior to obtaining)] 79 Pulse Ox 95 96 Oxygen Delivery Method Room Air Room Air 08/16/24 22:35 Temperature 98.1 F Temperature Source Pulse Rate 75 Pulse Rate [Lying] Pulse Rate [Sitting (for 1 minute prior to obtaining)] Pulse Rate [Standing (for 1 minute prior to obtaining)] Respiratory Rate 17 Blood Pressure 119/78 Blood Pressure [Lying] Blood Pressure [Sitting (for 1 minute prior to obtaining)] Blood Pressure [Standing (for 1 minute prior to obtaining)] Blood Pressure Mean 91 Blood Pressure Mean [Lying] Blood Pressure Mean [Sitting (for 1 minute prior to obtaining)] Blood Pressure Mean [Standing (for 1 minute prior to obtaining)] Pulse Ox 99 Oxygen Delivery Method Positive well nourished and well developed General Appearance ED: well developed <Dr. Gary Pascual MD - Last Filed: 08/16/24 22:51> Physical Exam Const Vital Signs: 08/16/24 17:48 08/16/24 19:58 08/16/24 20:45 Temperature 96.7 F L Temperature Source Oral Pulse Rate 77 76 Pulse Rate [Lying] 74 Pulse Rate [Sitting (for 1 minute prior to obtaining)] 79 Pulse Rate [Standing (for 1 minute prior to obtaining)] 80 Respiratory Rate 18 18 Blood Pressure 125/74 H 114/71 Blood Pressure [Lying] 105/84 H Blood Pressure [Sitting (for 1 minute prior to obtaining)] 115/68 Blood Pressure [Standing (for 1 minute prior to obtaining)] 115/62 Blood Pressure Mean 91 85 Blood Pressure Mean [Lying] 91 Blood Pressure Mean [Sitting (for 1 minute prior to obtaining)] 83 Blood Pressure Mean [Standing (for 1 minute prior to obtaining)] 79 Pulse Ox 95 96 Oxygen Delivery Method Room Air Room Air 08/16/24 22:35 Temperature 98.1 F Temperature Source Pulse Rate 75 Pulse Rate [Lying] Pulse Rate [Sitting (for 1 minute prior to obtaining)] Pulse Rate [Standing (for 1 minute prior to obtaining)] Respiratory Rate 17 Blood Pressure 119/78 Blood Pressure [Lying] Blood Pressure [Sitting (for 1 minute prior to obtaining)] Blood Pressure [Standing (for 1 minute prior to obtaining)] Blood Pressure Mean 91 Blood Pressure Mean [Lying] Blood Pressure Mean [Sitting (for 1 minute prior to obtaining)] Blood Pressure Mean [Standing (for 1 minute prior to obtaining)] Pulse Ox 99 Oxygen Delivery Method [facility] <JOSE Ruvalcaba - Last Filed: 08/16/24 22:11> [facility] Lab Data Labs: Laboratory Results - last 24 hr 08/16/24 08/16/24 18:30 20:00 WBC 11.1 H RBC 2.85 L Hgb 8.8 L Hct 27.7 L MCV 97.2 MCH 30.9 MCHC 31.8 L RDW Std Deviation 55.2 H RDW Coeff of Dave 15.9 H Plt Count 357 MPV 11.1 Immature Gran % (Auto) 0.600 Neut % (Auto) 73.8 H Lymph % (Auto) 14.6 L [place] % (Auto) 7.0 Eos % (Auto) 3.8 Baso % (Auto) 0.2 Absolute Neuts (auto) 8.2 H Absolute Lymphs (auto) 1.62 Nucleated RBC % 0.3 PT 16.7 H INR 1.4 Sodium 135 L Potassium 4.6 Chloride 100 Carbon Dioxide 28.0 Anion Gap 7 BUN 20 H Creatinine 1.31 H Estim Creat Clear Calc 32.26 Est GFR (MDRD) Af Amer 51 L Est GFR (MDRD) Non-Af 43 L BUN/Creatinine Ratio 15.3 Glucose 108 H Lactic Acid 1.1 Calcium 9.5 Total Bilirubin 0.70 AST 32 ALT 18 Alkaline Phosphatase 190 H Troponin I High Sens 6 Total Protein 7.9 Albumin 2.9 L Globulin 5.0 H Albumin/Globulin Ratio 0.6 L Lipase 31 Urine Color Yellow Urine Clarity Clear Urine pH 6.0 Ur Specific Center 1.015 Urine Protein 15 H Urine Glucose (UA) Normal Urine Ketones Negative Urine Occult Blood Negative Urine Nitrite Negative Urine Bilirubin Negative Urine Urobilinogen Normal Ur Leukocyte Esterase 25 H Urine RBC 0 SEEN Urine WBC 5-10 SEEN Ur Squamous Epith Cells 5-10 SEEN Urine Bacteria 1+ Urine Mucus 0 SEEN Radiography Diagnostic Testing: Clinical Impression(s) from Imaging Studies Brain CT 08/16/24 18:09 IMPRESSION: No acute findings in the head/brain. Mild chronic changes. Electronically Signed: Lois Beckett MD at 21:08 EDT , Chest X-Ray 08/16/24 18:35 IMPRESSION: No acute findings in the chest. Electronically Signed: Lois Beckett MD at 19:55 EDT , EKG Normal sinus rhythm, rate 71 bpm: Attestation: I personally reviewed and interpreted this EKG as follows: Interpretation: Sinus Rhythm Comments: Normal sinus rhythm, rate 71 bpm, WA interval 148 ms, QRS duration 84 ms, no acute ST elevation, no acute infarct noted. Treatment and Re-Evaluation :: Differential diagnosis includes however is not limited to: CVA, TIA, electrolyte abnormality, anemia, narcotic medication side effect Patient appears to be in no obvious respiratory distress, patient is pale however does not look toxic. Presenting to the emergency department after a confusion like episode, daughter admits she took a Percocet at 5 PM however this was different. Patient will receive a CT scan of the brain, chest x-ray, cardiac workup as well as laboratory values. Stool occult will be sent. All radiologic examinations were read, reviewed by the emergency department attending. From these reads, a plan of care will be put in place. Patient's CBC shows slight leukocytosis with white blood count 11.1, hemoglobin is 8.8, 4 months ago was 9.9, patient's PT/INR shows a PT of 16.7 INR 1.4 this is stable. Creatinine is 1.3, this appears stable and chronic. Patient's BUN is 20, lipase was negative. Patient's stool occult was negative, urinalysis was negative for any infection. Patient CT scan of the brain was negative for any acute process. Two-view chest x-ray was negative. I did perform orthostatic vital signs, these were negative. However secondary the patient's hemoglobin, symptoms, on Eliquis and history of black stools, we may need to get further lab values from [facility]. <Dr. Gary Pascual MD - Last Filed: 08/16/24 22:51> [facility] Narrative Medical decision making narrative: I have personally performed a face to face assessment of the patient and have reviewed the SHAHBAZ Note. I performed a substantive portion of the visit including all aspects of the following. My ray findings include: History is seemed acutely confused with significant dysarthria, later determined that this occurred maybe an hour after she took 2 Percocet which has happened with that before as far as the speech is concerned. She also admits that her speech is better now, but feeling weak and tired and having black tarry stools without bright red blood, takes Eliquis no abdominal pain, nausea, vomiting. Recent hip replacement doing well. No focal neurologic symptoms right now. Exam is alert and oriented x 3, excellent speech, family agrees it is back to baseline. Nonfocal neurologic exam. Abdomen soft nontender nondistended. No respiratory distress. Medical Decison Making 1 view chest x-ray on my interpretation negative for pneumothorax, pneumonia, free air under the diaphragm. We are obtaining a CT. I reviewed the images and the report which I agree with, it is negative for nothing acute. I do not think she is having an acute stroke or in need of emergent CT angiography of the head or neck. Suspicious for upper GI bleed with patient on apixaban. Awaiting labs and Hemoccult although there was no specimen on TIGRE. Hemoccult was negative but there is no specimen. BUN is 20. Last labs taken. These 2 were 4 months ago. I was able to obtain some old labs from her perioperative period, this was at [facility] where she had her surgery. Her hemoglobin was 8.9 and her BUN was 30 with a creatinine 1.7. This was on 08/05, 11 days ago. We did orthostatics, they are negative. I reevaluated the patient. My plan was to repeat her rectal, or see if we can stimulate her bowels to have a bowel movement and retest since she is anticoagulated for reason of pulmonary emboli and I am not comfortable discontinuing her anticoagulants if she does not truly have GI bleeding. However on reexamination, discussing with her and the daughter, she is currently somewhat delirious. This is new in the past couple hours. She does not have any focal neurologic symptoms or deficits. However she tells me that she is on iron pills that she has been on since April and her stools have been black and tarry ever since then. The daughter states she is not on iron pills, which the nurse agrees is not on her medication list, and that she is not talking clearly and none of this is true to her knowledge. Furthermore she is talking about her own father who is long past, and hallucinating about crumbs on the nearby bedside commode that she wants to get out of bed and clean up. Given this I think admitting her to the hospital for further evaluation and testing is warranted in addition to monitoring stools for occult blood and monitoring her H&H. Discussed with hospitalist. Other additions or changes: [None] History & Record Review Additional record(s) reviewed:: Prior labs Lab Data Labs: Laboratory Results - last 24 hr 08/16/24 08/16/24 18:30 20:00 WBC 11.1 H RBC 2.85 L Hgb 8.8 L Hct 27.7 L MCV 97.2 MCH 30.9 MCHC 31.8 L RDW Std Deviation 55.2 H RDW Coeff of Dave 15.9 H Plt Count 357 MPV 11.1 Immature Gran % (Auto) 0.600 Neut % (Auto) 73.8 H Lymph % (Auto) 14.6 L [place] % (Auto) 7.0 Eos % (Auto) 3.8 Baso % (Auto) 0.2 Absolute Neuts (auto) 8.2 H Absolute Lymphs (auto) 1.62 Nucleated RBC % 0.3 PT 16.7 H INR 1.4 Sodium 135 L Potassium 4.6 Chloride 100 Carbon Dioxide 28.0 Anion Gap 7 BUN 20 H Creatinine 1.31 H Estim Creat Clear Calc 32.26 Est GFR (MDRD) Af Amer 51 L Est GFR (MDRD) Non-Af 43 L BUN/Creatinine Ratio 15.3 Glucose 108 H Lactic Acid 1.1 Calcium 9.5 Total Bilirubin 0.70 AST 32 ALT 18 Alkaline Phosphatase 190 H Troponin I High Sens 6 Total Protein 7.9 Albumin 2.9 L Globulin 5.0 H Albumin/Globulin Ratio 0.6 L Lipase 31 Urine Color Yellow Urine Clarity Clear Urine pH 6.0 Ur Specific Center 1.015 Urine Protein 15 H Urine Glucose (UA) Normal Urine Ketones Negative Urine Occult Blood Negative Urine Nitrite Negative Urine Bilirubin Negative Urine Urobilinogen Normal Ur Leukocyte Esterase 25 H Urine RBC 0 SEEN Urine WBC 5-10 SEEN Ur Squamous Epith Cells 5-10 SEEN Urine Bacteria 1+ Urine Mucus 0 SEEN Radiography Diagnostic Testing: Clinical Impression(s) from Imaging Studies Brain CT 08/16/24 18:09 IMPRESSION: No acute findings in the head/brain. Mild chronic changes. Electronically Signed: Lois Beckett MD at 21:08 EDT , Chest X-Ray 08/16/24 18:35 IMPRESSION: No acute findings in the chest. Electronically Signed: Lois Beckett MD at 19:55 EDT , Management Discussion w/another healthcare provider: Hospitalist Discharge Plan Dx/Rx/DC Orders Clinical Impression: Acute encephalopathy, Anemia, Anticoagulated, Hx of pulmonary embolus Disposition Disposition: Acute Care Hospital [facility]
--- OUTSIDE RECORDS SUMMARY | 2024-08-16 18:17 | XMS RPT_ITS | CCD ---
Author Organization [facility] Care Team Providers Care [employer] Name Role Phone EARL ORO, LUIS Primary Care Physician [phone] EARL ORO, LUIS Attending Unavailabl e BALTES CABLEWAY OPERATOR-DRUM SANDER, [facility] Care Unavailabl e BALTES CABLEWAY OPERATOR-DRUM SANDER, LUIS Attending Unavailabl e BALTES CABLEWAY OPERATOR-DRUM SANDER, [facility] Care Unavailabl e BALTES CABLEWAY OPERATOR-DRUM SANDER, [facility] Care Unavailabl e BALTES CABLEWAY OPERATOR-DRUM SANDER, LUIS Attending UnavailAGUILAR Collins MD Attending Unavaila ble BALTES CABLEWAY OPERATOR-DRUM SANDER, [facility] Unavailabl yvonne JESUS MD, DR PHILLIPS Consulting Unavailab Amanuel ROGERS, CRISTIAN Admitting Unavailable ISIDORO GARLAND MD, DR JAIDEN CHENG Consulting Unavailpalmira YANG MD, CHRISTIAN Consulting Taurus MAYORGA MD, ROXY Gong Consulting Unavailable EARL SMITHN-ESAU, LUIS Attending Unavailabl e BALTES CABLEWAY OPERATOR-DRUM SANDER, [facility] Care Unavailabl e JYOTI CABLEWAY OPERATOR-DRUM SANDERVELMA Attending Unavailab le BALTES CABLEWAY OPERATOR-DRUM SANDER, [facility] Care Unavailabl e BALTES CABLEWAY OPERATOR-DRUM SANDER, [facility] Care Unavailabl e CARMELA MONSON, DR TATIANA Chavis Attending Unavailabl e BALTES CABLEWAY OPERATOR-DRUM SANDER, [facility] Care Unavailabl e SHWETHA KIM Attending Unavailable CANDIDA CABLEWAY OPERATOR-DRUM SANDEROKSANA Consulting Unavaila ble MELISSATES CABLEWAY OPERATOR-DRUM SANDER, [facility] Care Unavailabl e KULWINDER CABLEWAY OPERATOR-DRUM SANDERMEGAN Admitting Unavail VENTURA Crews DO Attending Taurus VELASCO MD, DR ONOFRE Attending Unavailabl e BALTES CABLEWAY OPERATOR-DRUM SANDER, [facility] Care Unavailabl yvonne ALANIS MD, DR STRONG Attending Unavailab le BALTES CABLEWAY OPERATOR-DRUM SANDER, [facility] Care Unavailabl e BALTES CABLEWAY OPERATOR-DRUM SANDER, LUIS Primary Care Unavailabl e YADYWon , ZULY Attending Unavailable BALTES CABLEWAY OPERATOR-[facility], LUIS Attending Unavailabl e BALTES CABLEWAY OPERATOR-[facility], LUIS Primary Care Unavailabl e BALTES CABLEWAY OPERATOR-[facility], LUIS Attending Unavailabl e BALTES CABLEWAY OPERATOR-[facility], [place] Primary Care Unavailabl e Baltes DRUM SANDER, Sallis Primary Care Provider [phone] Velma Reynolds CNP Unavailable JASWINDER SCHMIDT Referring Unavailable BALTES, LUIS Primary Care Unavailable JASWINDER SCHMIDT Attending Unavailable BALTES, LUIS Primary Care Unavailable BALTES CABLEWAY OPERATOR-[facility], [place] Primary Care Unavailabl yvonne PEDRO MD, DR MAGED Chavis Attending Unavailab noemi PEDRO MD, DR MAGED Chavis Admitting Unavailab noemi PEDRO MD, DR MAGED Chavis Attending Unavailab le BALTES CABLEWAY OPERATOR-[facility], [place] Primary Care Unavailabl e BALTES CABLEWAY OPERATOR-[facility], LUIS Consulting Unavailabl e KENNEN CABLEWAY OPERATOR-[facility], SIMA Diaz Consulting Luigi PEDRO MD, DR MAGED Chavis Attending Unavailab le BALTES CABLEWAY OPERATOR-[facility], [place] Primary Care Unavailabl e Allergies Allergy Classification Reported Allergen(s) Allergy Type Date of Onset Reaction(s) Facility (20 sources) Codeine; Translations: [codeine] Drug Allergy 6 nausea [facility] (20 sources) Lisinopril; Translations: [lisinopril] Drug Allergy 0 Other: See Comments [facility] (20 sources) traMADol; Translations: [tramadol] Drug Allergy confusion, Unknown [facility] (2 sources) altram [Other] Propensity to adverse reactions 7 Mental Status Change [facility] (1 source) OTHER; Translations: [OTHER] Propensity to adverse reactions (disorder) 7 [facility] Repository Medications Current Medications Medication Drug Class(es) Dates Sig (Normalized) Sig (Original) acetaminophen 1000 mg oral tablet (20 sources) Start: 08-05-2024 take 1 tablet by mouth once daily Tylenol Dose : 1,000 mg = 2 tab(s), Oral, TID, not to exceed 3000 mg/day, 0 Refill(s) Start Date: 08/05/24 Status: Ordered Start: 01-05-2020 take 2 tablets by [facility] every six hours acetaminophen (TYLENOL) 325 mg tablet Take 2 tablets by mouth every 6 hours. 01/05/2020 Active Start: 07-27-2019 Tylenol Extra Strength 500 mg oral tablet Dose : 1,000 mg = 2 tab(s), Oral, QID, PRN for pain, 0 Refill(s) Start Date: 07/27/19 Status: Ordered amLODIPine 5 mg oral tablet (7 sources) Dihydropyridine Calcium Channel Bandar Start: 07-19-2021 amLODIPine 5 mg oral tablet Dose : 5 mg = 1 tab(s), Oral, qDay, # 90 tab(s), 3 Refill(s), Pharmacy: [facility] #[id number], 155, cm, 05/22/21 13:28:00 EDT, Height, kg, 05/22/21 13:28:00 EDT, Dosing Weight Start Date: 07/19/21 Status: Ordered apixaban 5 mg oral tablet (4 sources) Factor Xa Inhibitor Start: 05-26-2024 Eliquis 5 mg oral tablet Dose : 5 mg = 1 tab(s), Oral, BID, # 60 tab(s), 3 Refill(s), Pharmacy: [facility]/pharmacy #[id number], 155, cm, 05/26/24 14:11:00 EDT, Height, 56.7, kg, 05/26/24 14:11:00 EDT, Dosing Weight Start Date: 05/26/24 Status: Ordered Start: 04-30-2024 Eliquis 5 mg o ral tablet Dose : 5 mg = 1 tab(s), Oral, BID, # 60 tab(s), 0 Refill(s), Pharmacy: [facility]/pharmacy #[id number], 155, cm, 04/24/24 4:14:00 EDT, Height, 65.6, kg, 04/24/24 4:14:00 EDT, Dosing Weight Start Date: 04/30/24 Status: Ordered aspirin 81 mg chewable tablet (11 sources) Platelet Aggregation Inhibitor, Nonsteroidal Anti-inflammatory Drug Start: 03-11-2023 aspirin 81 mg oral tablet, chewable Dose : 81 mg = 1 tab(s), Oral, Daily, # 30 tab(s), 11 Refill(s), Pharmacy: [facility] #[id number], 155, cm, 03/11/23 8:04:00 EDT, Height Start Date: 03/11/23 Status: Ordered atorvastatin 40 mg oral tablet (20 sources) HMG-CoA Reductase Inhibitor Start: 01-05-2020 atorvastatin 40 mg oral tablet Dose : 40 mg = 1 tab(s), Oral, qHS, # 90 tab(s), 3 Refill(s), Pharmacy: [facility], 156, cm, 07/22/24 15:12:00 EDT, Height, kg, 07/22/24 15:12:00 EDT, Dosing Weight Start Date: 07/23/24 Status: Ordered benzonatate 100 mg oral capsule (1 source) Non-narcotic Antitussive Start: 02-27-2024 End: 03-05-2024 take 1-2 capsules by mouth every eight hours as needed for cough benzonatate 100 mg oral capsule See Instructions, PRN as needed for cough, Take 1-2 caps by mouth q8h as needed for cough. do not crush or chew, # 30 cap(s), 0 Refill(s), 03/05/24 5:01:00 PM EDT, Pharmacy: [facility]/pharmacy #[id number], Cough, 159, cm, 02/27/24 16:14:00 EDT, Height, kg, 02/27/24 16:14:00 EDT, Dosing Weight Start Date: 02/27/24 Stop Date: 03/05/24 Status: Ordered calcium carbonate 1500 mg oral tablet (10 sources) Start: 08-29-2023 calcium (as carbonate) 600 mg oral tablet Dose : 1,200 mg = 2 tab(s), Oral, qDay, PRN for control of stomach acid, 0 Refill(s) Start Date: 08/29/23 Status: Ordered 24 HR calcium carbonate 1500 MG / cholecalciferol 500 UNT Extended Release Oral Tablet (6 sources) Vitamin D Start: 08-10-2020 take 1 tablet by mouth once daily in the morning calcium-vitamin D 600 mg-500 intl units (12.5 mcg) oral tablet, extended release Dose = 2 tab(s), Oral, qAM, # 180 tab(s), 0 Refill(s), [id number], Osteopenia Hypocalcemia, 156.21, cm, 08/10/20 8:55:00 EDT, Height, kg, 08/10/20 8:55:00 EDT, Dosing Weight Start Date: 08/10/20 Status: Ordered carvedilol 12.5 mg oral tablet (20 sources) alpha-Adrenergic Bandar, beta-Adrenergic Bandar Start: 07-23-2024 carvedilol 12.5 mg oral tablet Dose : 12.5 mg = 1 tab(s), Oral, BIDM, # 180 tab(s), 3 Refill(s), Pharmacy: [facility], 156, cm, 07/22/24 15:12:00 EDT, Height, kg, 07/22/24 15:12:00 EDT, Dosing Weight Start Date: 07/23/24 Status: Ordered Start: 04-21-2024 carvedilol 12. 5 mg oral tablet Dose : 12.5 mg = 1 tab(s), Oral, BIDM, # 60 tab(s), 0 Refill(s), Pharmacy: [facility]/pharmacy #[id number], 155, cm, 04/20/24 0:46:00 EDT, Height, kg, 04/20/24 0:46:00 EDT, Dosing Weight Start Date: 04/21/24 Status: Ordered Start: 04-27-2021 take 1 tablet by terence twice daily carvedilol 25 mg oral tablet 1 tab(s), Oral, BID, # 180 tab(s), 1 Refill(s), [id number], 157.5, cm, 12/09/23 14:45:00 EST, Height, kg, 12/09/23 14:45:00 EST, Dosing Weight Start Date: 01/31/24 Status: Ordered cefdinir 300 mg oral capsule (1 source) Cephalosporin Antibacterial Start: 04-30-2024 End: 05-14-2024 cefdinir 300 mg oral capsule Dose : 300 mg = 1 cap(s), Oral, q12h, X 14 day(s), # 28 cap(s), 0 Refill(s), 05/14/24 11:48:00 AM EDT, Pharmacy: [facility]/pharmacy #[id number], 155, cm, 04/24/24 4:14:00 EDT, Height, 65.6, kg, 04/24/24 4:14:00 EDT, Dosing Weight Start Date: 04/30/24 Stop Date: 05/14/24 Status: Ordered Clobetasol (11 sources) Corticosteroid Start: 09-17-2022 clobetasol 0.0 5% topical cream Apply 1 juli, Topical, BID, for two weeks then slowly taper down to 1-2 times per week, # 60 gram(s), 3 Refill(s), Pharmacy: [facility] #[id number], Cream, 155, cm, 09/17/22 15:08:00 EST, Height, 62.2 Start Date: 09/17/22 Status: Ordered clopidogrel 75 mg oral tablet (20 sources) [id number] Platelet Inhibitor Start: 07-23-2024 clopidogrel 75 mg oral tablet Dose : 75 mg = 1 tab(s), Oral, qDay, # 90 tab(s), 3 Refill(s), Pharmacy: [facility], 156, cm, 07/22/24 15:12:00 EDT, Height, kg, 07/22/24 15:12:00 EDT, Dosing Weight Start Date: 07/23/24 Status: Ordered Start: 04-24-2017 clopidogrel 75 mg oral tablet Dose : 75 mg = 1 tab(s), Oral, qDay, # 90 tab(s), 3 Refill(s), Pharmacy: [facility] #[id number], 162.6, cm, 03/03/24 16:53:00 EDT, Height, kg, 03/10/24 12:27:00 EDT, Dosing Weight Start Date: 04/06/24 Status: Ordered docusate sodium 100 mg oral tablet (2 sources) Start: 05-21-2024 take 1 dose by mouth twice daily as needed for constipation Dulcolax Stool Softener Dose : 100 mg =, Oral, BID, PRN constipation, 0 Refill(s) Start Date: 05/21/24 Status: Ordered doxycycline hyclate 100 mg oral capsule (1 source) Tetracycline-class Drug Start: 08-05-2024 End: 08-19-2024 doxycycline hyclate 100 mg oral capsule Dose : 100 mg = 1 cap(s), Oral, q12h, X 14 day(s), # 28 cap(s), 0 Refill(s), 08/19/24 9:35:00 AM EDT, Pharmacy: [facility] #[id number], 156, cm, 08/04/24 13:56:00 EDT, Height, 57, kg, 08/04/24 13:56:00 EDT, Dosing Weight Start Date: 08/05/24 Stop Date: 08/19/24 Status: Ordered DULoxetine 60 mg delayed release oral capsule (20 sources) Serotonin and Norepinephrine Reuptake Inhibitor Start: 02-17-2007 DULoxetine 60 mg oral delayed release capsule Dose : 60 mg = 1 cap(s), Oral, qDay, # 90 cap(s), 3 Refill(s), Pharmacy: [facility]/pharmacy #[id number], Depression, 162.6, cm, 03/03/24 16:53:00 EDT, Height, kg, 03/10/24 12:27:00 EDT, Dosing Weight Start Date: 03/20/24 Status: Ordered eszopiclone 3 mg oral tablet (20 sources) Start: 11-29-2023 End: 08-19-2024 eszopiclone 3 mg oral tablet Dose : 3 mg = 1 tab(s), Oral, qHS, OARRS reviewed 05/21, may fill 05/25, # 90 tab(s), 0 Refill(s), Pharmacy: [facility] #[id number], Insomnia, 153.16, cm, 05/21/24 15:05:00 EDT, Height, 57.6, kg, 05/21/24 14:57:00 EDT, Dosing Weight Start Date: 05/21/24 Stop Date: 08/19/24 Status: Ordered Start: 05-29-2023 End: 08-27-2023 eszopiclone 3 mg oral tablet Dose : 3 mg = 1 tab(s), Oral, qHS, OARRS reviewed on 05/29, may fill 06/04., # 90 tab(s), 0 Refill(s), Pharmacy: [facility] #[id number], Insomnia, 155, cm, 05/29/23 15:50:00 EDT, Height, 61.4, kg, 05/29/23 15:50:00 EDT, Dosing Weight Start Date: 05/29/23 Stop Date: 08/27/23 Status: Ordered Start: 09-06-2022 End: 12-05-2022 eszopiclone 3 mg oral tablet Dose : 3 mg = 1 tab(s), Oral, qHS, OARRS reviewed 09/08, may fill 09/08, X 90 day(s), # 90 tab(s), 0 Refill(s), 12/05/22 16:32:00 EST, Pharmacy: [facility] #[id number], Insomnia, 157.5, cm, 09/06/22 15:55:00 EST, Height, 61.8, kg, 09/06/22 15:55:00 EST, Do... Start Date: 09/06/22 Stop Date: 12/05/22 Status: Ordered Start: 01-31-2022 End: 08-26-2022 eszopiclone 3 mg oral tablet Dose : 3 mg = 1 tab(s), Oral, qHS, OARRS reviewed 05/01/22. May refill today, X 30 day(s), # 30 tab(s), 0 Refill(s), 08/26/22 17:05:00 EST, Pharmacy: [facility] #[id number], Insomnia, 157.5, cm, 05/16/22 14:19:00 EDT, Height, 60, kg, 05/16/22 14:19:00 EDT,... Start Date: 07/27/22 Stop Date: 08/26/22 Status: Ordered ferrous sulfate 325 mg delayed release oral tablet (1 source) Start: 07-22-2024 ferrous sulfat e 325 mg (65 mg elemental iron) oral delayed release tablet Dose : 325 mg = 1 tab(s), Oral, qDay, this could be BID, 0 Refill(s) Start Date: 07/22/24 Status: Ordered folic acid 1 mg oral tablet (1 source) Start: 07-22-2024 folic acid 1 m g oral tablet Dose : 1 mg = 1 tab(s), Oral, qDay, 0 Refill(s) Start Date: 07/22/24 Status: Ordered 12 hr guaiFENesin 600 mg extended release oral tablet (1 source) Start: 02-27-2024 End: 03-08-2024 guaiFENesin 600 mg oral tablet, extended release Dose : 600 mg = 1 tab(s), Oral, q12h, X 10 day(s), # 20 tab(s), 0 Refill(s), 03/08/24 5:01:00 PM EDT, Pharmacy: [facility]acy #[id number], Acute rhinosinusitis Cough, 159, cm, 02/27/24 16:14:00 EDT, Height, kg, 02/27/24 16:14:00 EDT, Dosing Weight Start Date: 02/27/24 Stop Date: 03/08/24 Status: Ordered losartan potassium 100 mg oral tablet (19 sources) Angiotensin 2 Receptor Bandar Start: 04-29-2024 take 0.5 tablet by mouth once daily losartan 100 mg oral tablet See Instructions, 1/2 tab(s) Oral Daily, 0 Refill(s) Start Date: 04/29/24 Status: Ordered Start: 01-02-2024 losartan 100 m g oral tablet Dose : 50 mg = 0.5 tab(s), Oral, qDay, # 45 tab(s), 3 Refill(s), Pharmacy: [facility] #[id number], 157.5, cm, 12/09/23 14:45:00 EST, Height, kg, 12/09/23 14:45:00 EST, Dosing Weight Start Date: 01/02/24 Status: Ordered Start: 01-31-2022 losartan 100 m g oral tablet Dose : 100 mg = 1 tab(s), Oral, qDay, # 90 tab(s), 1 Refill(s), Pharmacy: [facility] #[id number], 155, cm, 12/06/22 15:28:00 EST, Height, kg, 12/10/22 15:43:00 EST, Dosing Weight Start Date: 02/21/23 Status: Ordered nitrofurantoin, macrocrystals 25 mg / nitrofurantoin, monohydrate 75 mg oral capsule (2 sources) Nitrofuran Antibacterial Start: 01-31-2022 End: 02-05-2022 Macrobid 100 mg oral capsule Dose : 100 mg = 1 cap(s), Oral, BID, Take with food, X 5 day(s), # 10 cap(s), 0 Refill(s), 02/05/22 9:18:00 EDT, Pharmacy: [facility] #[id number], UTI symptoms, 157.5, cm, 01/31/22 9:01:00 EDT, Height, 61.8 Start Date: 01/31/22 Stop Date: 02/05/22 Status: Ordered nitroglycerin 0.4 mg sublingual tablet (11 sources) Nitrate Vasodilator Start: 11-10-2019 nitroglycerin 0.4 mg sublingual tablet 0.4 mg Dose = 1 tab(s), Sublingual, q5min, PRN for chest pain, # 25 tab(s), 1 Refill(s), [id number] Start Date: 11/10/19 Status: Ordered oxyCODONE hydrochloride 5 mg oral tablet (1 source) Opioid Agonist Start: 08-05-2024 End: 08-12-2024 take 1-2 tablets by mouth every four hours as needed for pain oxyCODONE 5 mg oral tablet ( IMMEDIATE release ) See Instructions, PRN as needed for pain, 1-2 tab(s) Oral q4h, # 42 tab(s), 0 Refill(s), 08/12/24 9:36:00 AM EDT, Pharmacy: [facility] #[id number], S/P total left hip arthroplasty, 156, cm, 08/04/24 13:56:00 EDT, Height, 57, kg, 08/04/24 13:56:00 EDT, Dosing Weight Start Date: 08/05/24 Stop Date: 08/12/24 Status: Ordered pantoprazole 40 mg delayed release oral tablet (1 source) Proton Pump Inhibitor Start: 07-22-2024 pantoprazole 40 mg oral enteric coated tablet Dose : 40 mg = 1 tab(s), Oral, qDay, 0 Refill(s) Start Date: 07/22/24 Status: Ordered polyethylene glycol 3350 38827 mg powder for oral solution (10 sources) Osmotic Laxative Start: 08-29-2023 take 17 doses by mouth once daily MiraLax oral powder for reconstitution Dose : 17 gram(s) =, Oral, qDay, 0 Refill(s) Start Date: 08/29/23 Status: Ordered traZODone hydrochloride 50 mg oral tablet (20 sources) Serotonin Reuptake Inhibitor Start: 07-22-2024 End: 07-17-2025 traZODone 50 mg oral tablet Dose : 50 mg = 1 tab(s), Oral, qHS, # 90 tab(s), 3 Refill(s), Pharmacy: [facility]acy #[id number], Insomnia, 156, cm, 07/22/24 15:12:00 EDT, Height, kg, 07/22/24 15:12:00 EDT, Dosing Weight Start Date: 07/22/24 Stop Date: 07/17/25 Status: Ordered Start: 02-02-2023 End: 08-01-2023 traZODone 50 mg oral tablet Dose : 50 mg = 1 tab(s), Oral, qHS, # 90 tab(s), 3 Refill(s), Pharmacy: [facility] #[id number], Insomnia, 155, cm, 05/29/23 15:50:00 EDT, Height, kg, 05/29/23 15:50:00 EDT, Dosing Weight Start Date: 07/10/23 Status: Ordered Start: 10-27-2021 End: 04-25-2022 traZODone 50 mg oral tablet Dose : 50 mg = 1 tab(s), Oral, qHS, # 90 tab(s), 1 Refill(s), Pharmacy: [facility] #[id number], Insomnia, 157.5, cm, 08/08/21 10:36:00 EDT, Height, kg, 08/08/21 10:36:00 EDT, Dosing Weight Start Date: 10/27/21 Stop Date: 04/25/22 Status: Ordered verapamil hydrochloride 120 mg extended release oral tablet (9 sources) Calcium Channel Bandar Start: 07-23-2024 take 1 tablet by mouth every hour, then take 1 tablet by mouth once daily verapamil 120 mg/12 hours oral tablet, extended release Dose : 120 mg = 1 tab(s), Oral, qDay, # 90 tab(s), 3 Refill(s), Pharmacy: [facility], 156, cm, 07/22/24 15:12:00 EDT, Height, kg, 07/22/24 15:12:00 EDT, Dosing Weight Start Date: 07/23/24 Status: Ordered Start: 01-01-2024 take 1 tablet by terenec once daily verapamil 120 mg/12 hours oral tablet, extended release 1 tab(s), Oral, qDay, # 90 tab(s), 3 Refill(s), Pharmacy: [facility] #[id number], 157.5, cm, 12/09/23 14:45:00 EST, Height, kg, 12/09/23 14:45:00 EST, Dosing Weight Start Date: 01/01/24 Status: Ordered Start: 06-04-2023 take 1 tablet by terence once daily verapamil 120 mg/12 hours oral tablet, extended release 1 tab(s), Oral, qDay, # 90 tab(s), 1 Refill(s), Pharmacy: [facility] #[id number], 155, cm, 05/29/23 15:50:00 EDT, Height, kg, 05/29/23 15:50:00 EDT, Dosing Weight Start Date: 06/04/23 Status: Ordered Start: 04-18-2023 take 1 tablet [address] [facility] once daily verapamil 120 mg/12 hours oral tablet, extended release 1 tab(s), Oral, qDay, # 30 tab(s), 0 Refill(s), Pharmacy: [id number], 155, cm, 03/28/23 13:14:00 EDT, Height, kg, 03/28/23 13:14:00 EDT, Dosing Weight Start Date: 04/18/23 Status: Ordered Start: 08-30-2022 take 1 tablet by terence every hour, then take 1 tablet by mouth once daily verapamil 120 mg/12 hours oral tablet, extended release Dose : 120 mg = 1 tab(s), Oral, qDay, # 30 tab(s), 4 Refill(s), [id number], 157.5, cm, 08/30/22 13:23:00 EST, Height, kg, 08/30/22 13:23:00 EST, Dosing Weight Start Date: 08/30/22 Status: Ordered Vitamin B12 500 mcg oral tab let (10 sources) Start: 11-29-2023 End: 11-23-2024 Vitamin B12 500 mcg oral tab let Dose : 1,000 mcg = 2 tab(s), Oral, qDay, # 180 tab(s), 3 Refill(s), Pharmacy: [facility] #[id number], B12 deficiency anemia, 157.5, cm, 11/29/23 13:31:00 EST, Height, kg, 11/29/23 13:26:00 EST, Dosing Weight Start Date: 11/29/23 Stop Date: 11/23/24 Status: Ordered Vitamin D3 125 mcg (5000 int l units) oral capsule (10 sources) Start: 08-29-2023 Vitamin D3 125 mcg (5000 intl units) oral capsule Dose : 125 mcg = 1 cap(s), Oral, qDay, 0 Refill(s) Start Date: 08/29/23 Status: Ordered Completed/Discontinued Medications Medication Drug Class(es) Dates Sig (Normalized) Sig (Original) fluticasone propionate 0.05 mg/actuat metered dose nasal spray (8 sources) Corticosteroid Start: 02-27-2024 End: 03-28-2024 take 100 ug nasal route once daily fluticasone 50 mcg/inh NASAL spray 100 mcg Dose = 2 spray(s), Nostril, each, qDay, shake well before using, # 16 gram(s), 0 Refill(s), Pharmacy: [facility] #[id number], Acute rhinosinusitis Bilateral serous otitis media, 159, cm, 02/27/24 16:14:00 EDT, Height, kg, 02/27/24 16:14:00 EDT, Dosing Weight Start Date: 02/27/24 Stop Date: 03/28/24 Status: Ordered ondansetron 4 mg disintegrating oral tablet (8 sources) Serotonin-3 Receptor Antagonist Start: 02-27-2024 End: 03-01-2024 ondansetron 4 mg oral tablet, disintegrating Dose : 4 mg = 1 tab(s), Oral, q6hr, PRN as needed for nausea/vomiting, # 12 tab(s), 0 Refill(s), Pharmacy: [facility] #[id number], Nausea with vomiting, 159, cm, 02/27/24 16:14:00 EDT, Height, kg, 02/27/24 16:14:00 EDT, Dosing Weight Start Date: 02/27/24 Stop Date: 03/01/24 Status: Ordered Problems Active Problems Problem Classification Problem Date Documented Date Episodic/Chronic Acute and unspecified renal failure (1 source) Acute renal failure syndrome; Translations: [Acute kidney failure, unspecified] Episodic Acute posthemorrhagic anemia (2 sources) Acute posthemorrhagic anemia; Translations: [Acute posthemorrhagic anemia] 01-05-2020 Episodic Bacterial infection; unspecified site (1 source) Bacteremia; Translations: [Bacteremia] Episodic Chronic kidney disease (18 sources) Chronic kidney disease; Translations: [Chronic kidney disease, unspecified] Onset: 4 Chronic Chronic obstructive pulmonary disease and bronchiectasis (10 sources) Bronchitis 10-01-2023 Episodic Complications of surgical procedures or medical care (2 sources) Hypotension following procedure; Translations: [Postprocedural hypotension] 01-05-2020 Episodic Coronary atherosclerosis and other heart disease (20 sources) Coronary arteriosclerosis; Translations: [Coronary atherosclerosis] Onset: 0 05-10-2020 Chronic Coronary atherosclerosis and other heart disease (20 sources) Patient post percutaneous transluminal coronary angioplasty; Translations: [Aortocoronary bypass graft present] 07-08-2020 Episodic Deficiency and other anemia (1 source) Anemia of chronic renal failure; Translations: [Anemia in chronic kidney disease] Chronic Deficiency and other anemia (20 sources) Anemia; Translations: [Anemia, unspecified] Onset: 4 05-01-2022 Episodic Deficiency and other anemia (10 sources) Nutritional anemia 08-29-2023 Episodic Deficiency and other anemia (3 sources) Megaloblastic anemia due to vitamin B>12< deficiency; Translations: [Vitamin B12 deficiency anemia, unspecified] Onset: 4 Episodic Essential hypertension (20 sources) Essential hypertension; Translations: [Hypertensive disorder] Onset: 4 07-17-2021 Chronic Comment on above: active prior to hosp ital admissiion without ischemic sx or cardiac limitations. Pt denies recent changes in cardiac standpoint or change in medical managament. EKG NSR, old inf, ant Q waves and lateral t wave flattening. No prior EKG present for comparison. took metoprolol yesterday am Fluid and electrolyte disorders (5 sources) Hypo-osmolality and or hyponatremia; Translations: [Hypo-osmolality and hyponatremia] Onset: 4 Episodic Genitourinary symptoms and ill-defined conditions (4 sources) Increased frequency of urination; Translations: [Frequency of micturition] Onset: 4 Episodic Headache; including migraine (20 sources) Headache 03-23-2014 Episodic Hypertension with complications and secondary hypertension (1 source) Chronic kidney disease due to hypertension; Translations: [Hypertensive chronic kidney disease with stage 1 through stage 4 chronic kidney disease, or unspecified chronic kidney disease] Chronic Malaise and fatigue (1 source) Asthenia; Translations: [Weakness] Onset: 4 Episodic Mood disorders (20 sources) Depressive disorder; Translations: [Depression, unspecified] 03-23-2014 Chronic Nausea and vomiting (1 source) Nausea and vomiting; Translations: [Nausea with vomiting, unspecified] Onset: 4 Episodic Occlusion or stenosis of precerebral arteries (20 sources) Carotid artery stenosis; Translations: [Bilateral stenosis of carotid arteries] Onset: 0 11-10-2019 Chronic Open wounds of extremities (1 source) Laceration of hand without foreign body; Translations: [Laceration without foreign body of unspecified hand, initial encounter] Onset: 4 Episodic Osteoarthritis (20 sources) Osteoarthritis; Translations: [Unspecified osteoarthritis, unspecified site] Onset: 4 07-17-2019 Chronic Other and ill-defined heart disease (17 sources) Heart disease 05-16-2022 Chronic Other and unspecified benign neoplasm (19 sources) Lipoma (clinical) 05-01-2022 Episodic Other bone disease and musculoskeletal deformities (3 sources) Avascular necrosis of bone of hip; 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] 05-22-2024 Chronic Other bone disease and musculoskeletal deformities (20 sources) Osteopenia 07-31-2019 Episodic Other connective tissue disease (1 source) Hip joint prosthesis present; Translations: [Presence of left artificial hip joint] Onset: 4 Chronic Other gastrointestinal disorders (20 sources) Irritable bowel syndrome 03-23-2014 Chronic Other gastrointestinal disorders (20 sources) Constipation 03-23-2014 Episodic Other inflammatory condition of skin (2 sources) Lupus erythematosus; Translations: [Discoid lupus erythematosus] Onset: 7 04-30-2024 Chronic Other lower respiratory disease (20 sources) Dyspnea 11-10-2019 Episodic Other lower respiratory disease (1 source) Hypoxemia; Translations: [Hypoxemia] Onset: 4 Episodic Other nervous system disorders (20 sources) Thoracic outlet syndrome 07-17-2019 Chronic Other nervous system disorders (2 sources) Acute postoperative pain; Translations: [Other acute postprocedural pain] 01-05-2020 Episodic Other non-traumatic joint disorders (1 source) Pain of left hip joint; Translations: [Pain in left hip] Onset: 4 Episodic Other upper respiratory disease (20 sources) Seasonal allergy 03-23-2014 Chronic Other upper respiratory infections (1 source) Acute sinusitis, unspecified; Translations: [Acute sinusitis, unspecified] Onset: 4 Episodic Otitis media and related conditions (1 source) Non-suppurative otitis media; Translations: [Unspecified nonsuppurative otitis media, bilateral] Onset: 4 Episodic Pneumonia (except that caused by tuberculosis or sexually transmitted disease) (2 sources) Pneumonia; Translations: [Pneumonia, unspecified organism] Onset: 4 Episodic Prolapse of female genital organs (13 sources) Cystocele 12-06-2022 Chronic Pulmonary heart disease (6 sources) Other pulmonary embolism without acute cor pulmonale; Translations: [Pulmonary embolism] Onset: 4 Episodic Residual codes; unclassified (20 sources) Insomnia; Translations: [Insomnia, unspecified] Onset: 4 05-09-2021 Episodic Respiratory failure; insufficiency; arrest (adult) (1 source) Acute respiratory failure; Translations: [Acute respiratory failure with hypoxia] Episodic Spondylosis; intervertebral disc disorders; other back problems (20 sources) Spasm of back muscles; Translations: [Sciatica] Onset: 4 07-17-2019 Episodic Unclassified (20 sources) Eye glasses, device (physical object) 03-23-2014 Unclassified (20 sources) Patient encounter status 01-11-2021 Unclassified (13 sources) Drug therapy finding 03-06-2023 Unclassified (1 source) Single subsegmental pulmonary embolism without acute cor pulmonale; Translations: [Single subsegmental pulmonary embolism without acute cor pulmonale (HCC)] Onset: Urinary tract infections (2 sources) Tubulointerstitial nephritis; Translations: [Tubulo-interstitial nephritis, not specified as acute or chronic] Episodic Past or Other Problems Problem Classification Problem Date Documented Da te Episodic/Chronic Abdominal hernia (2 sources) Incisional hernia; Translations: [Incisional hernia without obstruction or gangrene] Onset: 02-22-2006 04-30-2024 Episodic Abdominal pain (4 sources) Generalized abdominal pain; Translations: [Generalized abdominal pain] Onset: 02-22-2006 04-30-2024 Episodic Allergic reactions (2 sources) Radiation-induced dermatosis; Translations: [Other skin changes due to chronic exposure to nonionizing radiation] Onset: 02-18-2007 04-30-2024 Episodic Calculus of urinary tract (20 sources) Kidney stone Onset: 10-21-2007 07-09-2018 Episodic Gastritis and duodenitis (6 sources) Acute hemorrhagic gastritis; Translations: [Acute gastritis with bleeding] Onset: 02-22-2006 04-30-2024 Episodic Gastrointestinal hemorrhage (2 sources) Hematochezia; Translations: [Melena] Onset: 02-22-2006 04-30-2024 Episodic Neoplasms of unspecified nature or uncertain behavior (2 sources) Neoplasm of uncertain behavior of skin; Translations: [Neoplasm of uncertain behavior of skin] Onset: 02-27-2007 04-30-2024 Episodic Other inflammatory condition of skin (2 sources) Lichen planus; Translations: [Lichen planus, unspecified] Onset: 02-27-2007 04-30-2024 Episodic Other screening for suspected conditions (not mental disorders or infectious disease) (2 sources) Encounter for screening for osteoporosis; Translations: [Encounter for screening for osteoporosis] Onset: 2023 Episodic Other skin disorders (3 sources) Eruption; Translations: [Rash and other nonspecific skin eruption] Onset: 02-18-2007 Episodic Other skin disorders (2 sources) Actinic keratosis; Translations: [Actinic keratosis] Onset: 02-18-2007 04-30-2024 Episodic Other skin disorders (2 sources) Disorder of skin pigmentation; Translations: [Disorder of pigmentation, unspecified] Onset: 02-18-2007 04-30-2024 Episodic Other skin disorders (2 sources) Scar conditions and fibrosis of skin; Translations: [Scar conditions and fibrosis of skin] Onset: 04-22-2007 04-30-2024 Episodic Results Test Name Value Interpretation Reference Range Facility Final Surgical Pathology Rep miguel 08-06-2024 Final Surgical Pathology Report . Pathology Reports Accession: Collected Date/Time: Received Date/Time: Pathologist: [id number] 08/04/2024 12:09 EDT 08/05/2024 09:58 EDT MICHAEL SKINNER MD Final Surgical Pathology Report DIAGNOSIS: LEFT FEMORAL HEAD: - OSTEONECROSIS WITH SUBARTICULAR COLLAPSE AND TEARING OF THE ARTICULAR CARTILAGE CLINICAL INFORMATION: . Procedure: DIRECT ANTERIOR LEFT TOTAL HIP ARTHROPLASTY Preoperative diagnosis: OTHER OSTEONECROSIS, LEFT FEMUR. UNILATERAL PRIMARY OSTEOARTHRITIS, LEFT HIP Postoperative diagnosis: OTHER OSTEONECROSIS, LEFT FEMUR. UNILATERAL PRIMARY OSTEOARTHRITIS, LEFT HIP SPECIMEN: A LEFT FEMORAL HEAD GROSS DESCRIPTION: All parts labelled with patient name and [id number] Received in formalin labelled left femoral head Is a predominantly round femoral head measuring 4.5 x 4.5 x 4 cm. Articular surface is remarkable for a flap of tissue pulled away from the underlying bone. The femoral head is cleanly transected at the femoral head-neck. Sectioning of the femoral head reveals beneath the flap of articular surface is yellow chalky friable bone measuring 3.5 x 1.8 x 2 cm. Following decalcification. RS-1 Nolan Berg, Pathologists' Indirect Fire Infantryman (ASCP) Performed by NOLAN BERG MICROSCOPIC DESCRIPTION: The microscopic examination is performed, except in the case of Gross Only. Electronically Signed by Pathology Report verified by [facility] [place] MICHAEL SKINNER Sign out Date: 08/06/2024 13:02 Performing Lab: [facility] [place], [address] [place] [address] Pathology Dept Disclaimer If ancillary studies were utilized, the following Laboratory Developed Test (LDT) disclaimer will apply: Under CLIA requirements, [facility] [place] [facility] is qualified to perform high complexity testing. For all ancillary stains, positive and negative controls stain appropriately. Performance characteristics of immunohistochemical and chromogenic in-situ hybridization tests have been determined by [facility] [place] [facility]. These tests are used for clinical purposes, They should not be regarded as investigational or for research. Normal [facility] .Auto Diffon 08-05-2024 Basophil, Absolute 0.0 10 3/mcL Normal 0.0-0.2 [facility] Comment on above: Performed By: #### M RSAPCR #### [address] [address] Basophils/100 WBC (Bld) 0.4 % Normal 0.0-2.5 [facility] Comment on above: Performed By: #### M RSAPCR #### [address] [address] Eosinophil, Absolute 0.0 10 3/mcL Normal 0.0-0.7 [facility] Comment on above: Performed By: #### M RSAPCR #### [address] [address] Eosinophils/100 WBC (Bld) 0.0 % Normal 0.0-7.0 [facility] Comment on above: Performed By: #### M RSAPCR #### [address] [address] Lymphocyte, Absolute 0.8 10 3/mcL Low 0.9-4.3 [facility] Comment on above: Performed By: #### M RSAPCR #### [address] [address] Lymphocytes/100 WBC (Bld) 6.8 % Low 20.0-40.0 [facility] Comment on above: Performed By: #### M RSAPCR #### [address] [address] Monocyte, Absolute 0.6 10 3/mcL Normal 0.1-1.4 [facility] Comment on above: Performed By: #### M RSAPCR #### [address] [address] Monocytes/100 WBC (Bld) 5.3 % Normal 2.0-13.0 [facility] Comment on above: Performed By: #### M RSAPCR #### [address] [address] Neutrophils/100 WBC (Bld) 87.5 % High 50.0-75.0 [facility] Comment on above: Performed By: #### M RSAPCR #### [address] [address] .GFRon 08-05-2024 GFR 35 ml/min/1.73sqm Normal [facility] Comment on above: Result Comment: GFR Population mean for , Non- Americans Ages 20-29 = 116 mL/min/1.73 sq.m. Ages 30-39 = 107 mL/min/1.73 sq.m. Ages 40-49 = 99 mL/min/1.73 sq.m. Ages 50-59 = 93 mL/min/1.73 sq.m. Ages 60-69 = 85 mL/min/1.73 sq.m. Ages 70+ = 75 mL/min/1.73 sq.m. Chronic Kidney Disease: Less than 60 mL/min/1.73 square meters End Stage Renal Disease: Less than 15 mL/min/1.73 square meters Performed By: #### M RSAPCR #### [address] [address] GFR Non- 29 ml/min/1.73sqm Normal [facility] Comment on above: Result Comment: GFR Population mean for , Non- Americans Ages 20-29 = 116 mL/min/1.73 sq.m. Ages 30-39 = 107 mL/min/1.73 sq.m. Ages 40-49 = 99 mL/min/1.73 sq.m. Ages 50-59 = 93 mL/min/1.73 sq.m. Ages 60-69 = 85 mL/min/1.73 sq.m. Ages 70+ = 75 mL/min/1.73 sq.m. Chronic Kidney Disease: Less than 60 mL/min/1.73 square meters End Stage Renal Disease: Less than 15 mL/min/1.73 square meters Performed By: #### M RSAPCR #### [address] [address] .NEUABSon 08-05-2024 Neutrophil, Absolute 9.7 10 3/mcL High 2.3-8.1 [facility] Comment on above: Performed By: #### M RSAPCR #### [address] [address] BMPon 08-05-2024 BUN/Creatinine Ratio 17 ratio Normal 7-27 [facility] Comment on above: Performed By: #### M RSAPCR #### [address] [address] Calcium [Mass/Vol] 9.5 mg/dL Normal 8.4-10.2 [facility] Comment on above: Performed By: #### M RSAPCR #### [address] [address] Chloride [Moles/Vol] 101 mmol/L Normal 98-107 [facility] Comment on above: Performed By: #### M RSAPCR #### [address] [address] CO2 [Moles/Vol] 25 mmol/L Normal 23-31 [facility] Comment on above: Performed By: #### M RSAPCR #### [address] [address] Creatinine [Mass/Vol] 1.72 mg/dL High 0.55-1.02 [facility] Comment on above: Result Comment: Test ing performed on Siemens Dimension EXL analyzer using a modified kinetic Lona technique. Performed By: #### M RSAPCR #### [address] [address] Electrolyte Balance 11.0 mEq/L Normal 4.0-15.0 [facility] Comment on above: Performed By: #### M RSAPCR #### [address] [address] Glucose [Mass/Vol] 158 mg/dL High 83-110 [facility] Comment on above: Performed By: #### M RSAPCR #### [address] [address] Potassium [Moles/Vol] 4.9 mmol/L Normal 3.5-5.1 [facility] Comment on above: Performed By: #### M RSAPCR #### [address] [address] Sodium [Moles/Vol] 137 mmol/L Normal 136-145 [facility] Comment on above: Performed By: #### M RSAPCR #### [place] [id number] Urea nitrogen [Mass/Vol] 30 mg/dL High 7-18 [facility] Comment on above: Performed By: #### M RSAPCR #### [address] [address] CBCon 08-05-2024 Erythrocyte distribution width (RBC) [Ratio] 16.5 % High 11.5-15.5 [facility] Comment on above: Performed By: #### M RSAPCR #### [place] [id number] Hematocrit (Bld) [Volume fraction] 27.2 % Low 34.0-46.0 [facility] Comment on above: Performed By: #### M RSAPCR #### [place] [address] Hgb 8.9 G/dL Low 12.0-16.0 [facility] Comment on above: Performed By: #### M RSAPCR #### [place] [id number] MCH (RBC) [Entitic mass] 31.9 pg Normal 27.0-33.0 [facility] Comment on above: Performed By: #### M RSAPCR #### [place] [address] MCHC 32.8 G/dL Normal 32.0-36.0 [facility] Comment on above: Performed By: #### M RSAPCR #### [place] [id number] MCV (RBC) [Entitic vol] 97.1 fL Normal 80.0-99.0 [facility] Comment on above: Performed By: #### M RSAPCR #### [place] [id number] Platelet 205 10 3/mcL Normal 150-450 [facility] Comment on above: Performed By: #### M RSAPCR #### [address] [address] Platelet mean volume (Bld) [Entitic vol] 10.3 fL Normal 6.6-10.5 [facility] Comment on above: Performed By: #### M RSAPCR #### [address] [address] RBC 2.80 10 6/mcL Low 4.10-5.30 [facility] Comment on above: Performed By: #### M RSAPCR #### [address] [address] WBC 11.1 10 3/mcL High 4.5-10.8 [facility] Comment on above: Performed By: #### M RSAPCR #### [place] [address] LABORATORYOrdered By: SYSTEM SYSTEM on 08-05-2024 Basophils (Bld) [#/Vol] 0.0 103/mcL Normal 0.0 - 0.2 10^3/mcL AO Workflow SS Basophils/100 WBC (Bld) 0.4 % Normal 0.0 - 2.5 % AO Workflow SS Calcium [Mass/Vol] 9.5 mg/dL Normal 8.4 - 10. 2 mg/dL AO ADM SS Chloride [Moles/Vol] 101 mmol/L Normal 98 - 10 7 mmol/L AO ADM SS CO2 [Moles/Vol] 25 mmol/L Normal 23 - 31 mmol/L AO ADM SS Creatinine [Mass/Vol] 1.72 mg/dL High 0.55 - 1.02 mg/dL AO ADM SS Comment on above: Interpretive Data: T esting performed on Siemens Dimension EXL analyzer using a modified kinetic Lona technique. Electrolyte Balance 11.0 mEq/L Normal 4.0 - 15 .0 mEq/L AO ADM SS Eosinophil, Absolute 0.0 103/mcL Normal 0.0 - 0 .7 10^3/mcL AO Workflow SS Eosinophils/100 WBC (Bld) 0.0 % Normal 0.0 - 7.0 % AO Workflow SS Erythrocyte distribution width (RBC) [Ratio] 16.5 % High 11.5 - 15.5 % AO Workflow SS GFR/1.73 sq M.predicted among blacks MDRD (S/P/Bld) [Vol rate/Area] 35 ml/min/1.73sqm Invalid Interpretation Code AO Chemistry S Comment on above: Interpretive Data: GFR Population mean for , Non- Americans Ages 20-29 = 116 mL/min/1.73 sq.m. Ages 30-39 = 107 mL/min/1.73 sq.m. Ages 40-49 = 99 mL/min/1.73 sq.m. Ages 50-59 = 93 mL/min/1.73 sq.m. Ages 60-69 = 85 mL/min/1.73 sq.m. Ages 70+ = 75 mL/min/1.73 sq.m. Chronic Kidney Disease: Less than 60 mL/min/1.73 square meters End Stage Renal Disease: Less than 15 mL/min/1.73 square meters GFR/1.73 sq M.predicted among non-blacks MDRD (S/P/Bld) [Vol rate/Area] 29 ml/min/1.73sqm Invalid Interpretation Code AO Chemistry S Comment on above: Interpretive Data: GFR Population mean for , Non- Americans Ages 20-29 = 116 mL/min/1.73 sq.m. Ages 30-39 = 107 mL/min/1.73 sq.m. Ages 40-49 = 99 mL/min/1.73 sq.m. Ages 50-59 = 93 mL/min/1.73 sq.m. Ages 60-69 = 85 mL/min/1.73 sq.m. Ages 70+ = 75 mL/min/1.73 sq.m. Chronic Kidney Disease: Less than 60 mL/min/1.73 square meters End Stage Renal Disease: Less than 15 mL/min/1.73 square meters Glucose [Mass/Vol] 158 mg/dL High 83 - 110 mg/dL AO ADM SS Hematocrit (Bld) [Volume fraction] 27.2 % Low 34.0 - 46.0 % AO Workflow SS Hemoglobin (Bld) [Mass/Vol] 8.9 G/dL Low 12.0 - 16.0 G/dL AO Workflow SS Lymphocytes (Bld) [#/Vol] 0.8 103/mcL Low 0.9 - 4.3 10^3/mcL AO Workflow SS Lymphocytes/100 WBC (Bld) 6.8 % Low 20.0 - 40.0 % AO Workflow SS MCH (RBC) [Entitic mass] 31.9 pg Normal 27.0 - 33.0 pg AO Workflow SS MCHC 32.8 G/dL Normal 32.0 - 36.0 G/dL AO Workflow SS MCV (RBC) [Entitic vol] 97.1 fL Normal 80.0 - 99.0 fL AO Workflow SS Monocytes (Bld) [#/Vol] 0.6 103/mcL Normal 0.1 - 1.4 10^3/mcL AO Workflow SS Monocytes/100 WBC (Bld) 5.3 % Normal 2.0 - 13.0 % AO Workflow SS Neutrophils (Bld) [#/Vol] 9.7 103/mcL High 2.3 - 8.1 10^3/mcL AO Workflow SS Neutrophils/100 WBC (Bld) 87.5 % High 50.0 - 75.0 % AO Workflow SS Platelet mean volume (Bld) [Entitic vol] 10.3 fL Normal 6.6 - 10.5 fL AO Workflow SS Platelets (Bld) [#/Vol] 205 103/mcL Normal 150 - 450 10^3/mcL AO Workflow SS Potassium [Moles/Vol] 4.9 mmol/L Normal 3.5 - 5.1 mmol/L AO ADM SS RBC (Bld) [#/Vol] 2.80 106/mcL Low 4.10 - 5.3 0 10^6/mcL AO Workflow SS Sodium [Moles/Vol] 137 mmol/L Normal 136 - 145 mmol/L AO ADM SS Urea nitrogen [Mass/Vol] 30 mg/dL High 7 - 18 mg/dL AO ADM SS Urea nitrogen/Creatinine [Mass ratio] 17 ratio Normal 7 - 27 ratio AO ADM SS WBC (Bld) [#/Vol] 11.1 103/mcL High 4.5 - 10.8 10^3/mcL AO Workflow SS ABO/Rh (Gel)on 08-04-2024 ABO/Rh Interp Positive Invalid Interpretation Code [facility] Comment on above: Performed By: #### M RSAPCR #### [address] [address] ABS (Gel)on 08-04-2024 ABSC Interp (Gel) Negative Normal [facility] Comment on above: Performed By: #### M RSAPCR #### [address] [address] LABORATORYOrdered By: Komal Vega on 08-04-2024 ABO and Rh group Nom (Bld) Blood group A Rh(D) positive Invalid Interpretation Code AO BB Auto SS Blood group antibody screen Ql Negative ABSC (08/04/24 9:38 AM) Normal AO BB Auto SS XR FLUORO 1-2 HRS TECH TIMEo n 08-04-2024 XR FLUORO 1-2 HRS TECH TIME ORIGINAL Images acquired, not reported on this accession number. Normal [facility] XR HIP LEFT W/PELVIS 4 VIEWS on 08-04-2024 XR HIP LEFT W/PELVIS 4 VIEWS ORIGINAL HISTORY: Arthroplasty COMPARISON: No FINDINGS: There is an arthroplasty in near anatomic alignment. There is no radiographic evidence of loosening or failure of hardware. There is gas in the overlying soft tissues. IMPRESSION: Left hip arthroplasty with immediate postoperative changes. Interpreted by: Go Valdes MD Preliminary Report By: Go Valdes MD Electronically signed By Go Valdes MD Dictated Date: 08/04/2024 1:19:36 PM Prelim Date: 08/04/2024 1:20:15 PM Sign Date: 08/04/2024 1:20:15 PM Ordering Provider: MAGED PEDRO Normal [facility] MRSAPCRon 07-15-2024 MRSA (PCR) Not detected Normal Not Detected [facility] Comment on above: Result Comment: [place] [id number] Performed By: #### M RSAPCR #### [place] [address] MRSA PCR Int Normal [facility] Comment on above: Result Comment: MRSA DNA not detected by Real-Time Polymerase Chain Reaction (PCR). A negative result may be due to intermittent colonization. Colonization may vary depending on patient treatment, patient status, or exposure to high-risk environments. As with all PCR based in vitro diagnostic tests, extremely low levels of target below the limit of detection of the assay may be detected, but results may not be reproducible. See Below Performed By: #### M RSAPCR #### [place] [address] .Auto Diffon 07-14-2024 Basophil, Absolute 0.0 10 3/mcL Normal 0.0-0.2 [facility] Comment on above: Performed By: #### A LAW, ALB, CBC, BMP, ADIFF, GFR, ABOGEL, ABSGEL #### [address] [address] Basophils/100 WBC (Bld) 0.3 % Normal 0.0-2.5 [facility] Comment on above: Performed By: #### A LAW, ALB, CBC, BMP, ADIFF, GFR, ABOGEL, ABSGEL #### [address] [address] Eosinophil, Absolute 0.2 10 3/mcL Normal 0.0-0.7 [facility] Comment on above: Performed By: #### A LAW, ALB, CBC, BMP, ADIFF, GFR, ABOGEL, ABSGEL #### [address] [address] Eosinophils/100 WBC (Bld) 2.9 % Normal 0.0-7.0 [facility] Comment on above: Performed By: #### A LAW, ALB, CBC, BMP, ADIFF, GFR, ABOGEL, ABSGEL #### [address] [address] Lymphocyte, Absolute 1.5 10 3/mcL Normal 0.9-4.3 [facility] Comment on above: Performed By: #### A LAW, ALB, CBC, BMP, ADIFF, GFR, ABOGEL, ABSGEL #### [address] [address] Lymphocytes/100 WBC (Bld) 25.5 % Normal 20.0-40.0 [facility] Comment on above: Performed By: #### A LAW, ALB, CBC, BMP, ADIFF, GFR, ABOGEL, ABSGEL #### [address] [address] Monocyte, Absolute 0.6 10 3/mcL Normal 0.1-1.4 [facility] Comment on above: Performed By: #### A LAW, ALB, CBC, BMP, ADIFF, GFR, ABOGEL, ABSGEL #### [address] [address] Monocytes/100 WBC (Bld) 10.1 % Normal 2.0-13.0 [facility] Comment on above: Performed By: #### A LAW, ALB, CBC, BMP, ADIFF, GFR, ABOGEL, ABSGEL #### [address] [address] Neutrophils/100 WBC (Bld) 61.2 % Normal 50.0-75.0 [facility] Comment on above: Performed By: #### A LAW, ALB, CBC, BMP, ADIFF, GFR, ABOGEL, ABSGEL #### [address] [address] .GFRon 07-14-2024 GFR 51 ml/min/1.73sqm Normal [facility] Comment on above: Result Comment: GFR Population mean for , Non- Americans Ages 20-29 = 116 mL/min/1.73 sq.m. Ages 30-39 = 107 mL/min/1.73 sq.m. Ages 40-49 = 99 mL/min/1.73 sq.m. Ages 50-59 = 93 mL/min/1.73 sq.m. Ages 60-69 = 85 mL/min/1.73 sq.m. Ages 70+ = 75 mL/min/1.73 sq.m. Chronic Kidney Disease: Less than 60 mL/min/1.73 square meters End Stage Renal Disease: Less than 15 mL/min/1.73 square meters Performed By: #### A LAW, ALB, CBC, BMP, ADIFF, GFR, ABOGEL, ABSGEL #### [place] [address] [place], [place] [address] GFR Non- 42 ml/min/1.73sqm Normal [facility] Comment on above: Result Comment: GFR Population mean for , Non- Americans Ages 20-29 = 116 mL/min/1.73 sq.m. Ages 30-39 = 107 mL/min/1.73 sq.m. Ages 40-49 = 99 mL/min/1.73 sq.m. Ages 50-59 = 93 mL/min/1.73 sq.m. Ages 60-69 = 85 mL/min/1.73 sq.m. Ages 70+ = 75 mL/min/1.73 sq.m. Chronic Kidney Disease: Less than 60 mL/min/1.73 square meters End Stage Renal Disease: Less than 15 mL/min/1.73 square meters Performed By: #### A LAW, ALB, CBC, BMP, ADIFF, GFR, ABOGEL, ABSGEL #### [address] [address] .NEUABSon 07-14-2024 Neutrophil, Absolute 3.5 10 3/mcL Normal 2.3-8.1 [facility] Comment on above: Performed By: #### A LAW, ALB, CBC, BMP, ADIFF, GFR, ABOGEL, ABSGEL #### [address] [address] ABO/Rh (Gel)on 07-14-2024 ABO/Rh Interp Positive Invalid Interpretation Code [facility] Comment on above: Performed By: #### A LAW, ALB, CBC, BMP, ADIFF, GFR, ABOGEL, ABSGEL #### [address] [address] ABS (Gel)on 07-14-2024 ABSC Interp (Gel) Negative Normal [facility] Comment on above: Performed By: #### A LAW, ALB, CBC, BMP, ADIFF, GFR, ABOGEL, ABSGEL #### [address] [address] ALBon 07-14-2024 Albumin Level 3.8 G/dL Normal 3.4-4.8 [facility] Comment on above: Performed By: #### A LAW, ALB, CBC, BMP, ADIFF, GFR, ABOGEL, ABSGEL #### [address] [address] BMPon 07-14-2024 BUN/Creatinine Ratio 9 ratio Normal 7-27 [facility] Comment on above: Performed By: #### A LAW, ALB, CBC, BMP, ADIFF, GFR, ABOGEL, ABSGEL #### [address] [address] Calcium [Mass/Vol] 9.8 mg/dL Normal 8.4-10.2 [facility] Comment on above: Performed By: #### A LAW, ALB, CBC, BMP, ADIFF, GFR, ABOGEL, ABSGEL #### [address] [address] Chloride [Moles/Vol] 105 mmol/L Normal 98-107 [facility] Comment on above: Performed By: #### A LAW, ALB, CBC, BMP, ADIFF, GFR, ABOGEL, ABSGEL #### [address] [address] CO2 [Moles/Vol] 27 mmol/L Normal 23-31 [facility] Comment on above: Performed By: #### A LAW, ALB, CBC, BMP, ADIFF, GFR, ABOGEL, ABSGEL #### [address] [address] Creatinine [Mass/Vol] 1.26 mg/dL High 0.55-1.02 [facility] Comment on above: Result Comment: Test ing performed on Siemens Dimension EXL analyzer using a modified kinetic Lona technique. Performed By: #### A LAW, ALB, CBC, BMP, ADIFF, GFR, ABOGEL, ABSGEL #### [address] [address] Electrolyte Balance 7.0 mEq/L Normal 4.0-15.0 [facility] Comment on above: Performed By: #### A LAW, ALB, CBC, BMP, ADIFF, GFR, ABOGEL, ABSGEL #### [address] [address] Glucose [Mass/Vol] 85 mg/dL Normal 83-110 [facility] Comment on above: Performed By: #### A LAW, ALB, CBC, BMP, ADIFF, GFR, ABOGEL, ABSGEL #### [address] [address] Potassium [Moles/Vol] 4.4 mmol/L Normal 3.5-5.1 [facility] Comment on above: Performed By: #### A LAW, ALB, CBC, BMP, ADIFF, GFR, ABOGEL, ABSGEL #### [address] [address] Sodium [Moles/Vol] 139 mmol/L Normal 136-145 [facility] Comment on above: Performed By: #### A LAW, ALB, CBC, BMP, ADIFF, GFR, ABOGEL, ABSGEL #### [place] [id number] Urea nitrogen [Mass/Vol] 11 mg/dL Normal 7-18 [facility] Comment on above: Performed By: #### A LAW, ALB, CBC, BMP, ADIFF, GFR, ABOGEL, ABSGEL #### [place] [id number] CBCon 07-14-2024 Erythrocyte distribution width (RBC) [Ratio] 17.4 % High 11.5-15.5 [facility] Comment on above: Order Comment: Pre-A dmission Testing Performed By: #### A LAW, ALB, CBC, BMP, ADIFF, GFR, ABOGEL, ABSGEL #### [address] [address] Hematocrit (Bld) [Volume fraction] 33.1 % Low 34.0-46.0 [facility] Comment on above: Order Comment: Pre-A dmission Testing Performed By: #### A LAW, ALB, CBC, BMP, ADIFF, GFR, ABOGEL, ABSGEL #### [address] [address] Hgb 11.0 G/dL Low 12.0-16.0 [facility] Comment on above: Order Comment: Pre-A dmission Testing Performed By: #### A LAW, ALB, CBC, BMP, ADIFF, GFR, ABOGEL, ABSGEL #### [address] [address] MCH (RBC) [Entitic mass] 31.7 pg Normal 27.0-33.0 [facility] Comment on above: Order Comment: Pre-A dmission Testing Performed By: #### A LAW, ALB, CBC, BMP, ADIFF, GFR, ABOGEL, ABSGEL #### [address] [address] MCHC 33.1 G/dL Normal 32.0-36.0 [facility] Comment on above: Order Comment: Pre-A dmission Testing Performed By: #### A LAW, ALB, CBC, BMP, ADIFF, GFR, ABOGEL, ABSGEL #### [address] [address] MCV (RBC) [Entitic vol] 95.7 fL Normal 80.0-99.0 [facility] Comment on above: Order Comment: Pre-A dmission Testing Performed By: #### A LAW, ALB, CBC, BMP, ADIFF, GFR, ABOGEL, ABSGEL #### [address] [address] Platelet 226 10 3/mcL Normal 150-450 [facility] Comment on above: Order Comment: Pre-A dmission Testing Performed By: #### A LAW, ALB, CBC, BMP, ADIFF, GFR, ABOGEL, ABSGEL #### [address] [address] Platelet mean volume (Bld) [Entitic vol] 10.1 fL Normal 6.6-10.5 [facility] Comment on above: Order Comment: Pre-A dmission Testing Performed By: #### A LAW, ALB, CBC, BMP, ADIFF, GFR, ABOGEL, ABSGEL #### [address] [address] RBC 3.46 10 6/mcL Low 4.10-5.30 [facility] Comment on above: Order Comment: Pre-A dmission Testing Performed By: #### A LAW, ALB, CBC, BMP, ADIFF, GFR, ABOGEL, ABSGEL #### [address] [address] WBC 5.8 10 3/mcL Normal 4.5-10.8 [facility] Comment on above: Order Comment: Pre-A dmission Testing Performed By: #### A LAW, ALB, CBC, BMP, ADIFF, GFR, ABOGEL, ABSGEL #### [place] [address] [place], [place] [address] LABORATORYOrdered By: Wilma Lawler on 07-14-2024 ABO and Rh group Nom (Bld) Blood group A Rh(D) positive Invalid Interpretation Code AO BB Auto SS Blood group antibody screen Ql Negative ABSC (07/14/24 1:03 PM) Normal AO BB Auto SS LABORATORYOrdered By: SYSTEM SYSTEM on 07-14-2024 Albumin BCP dye [Mass/Vol] 3.8 G/dL Normal 3.4 - 4.8 G/dL AO ADM SS Basophils (Bld) [#/Vol] 0.0 103/mcL Normal 0.0 - 0.2 10^3/mcL AO Workflow SS Basophils/100 WBC (Bld) 0.3 % Normal 0.0 - 2.5 % AO Workflow SS Calcium [Mass/Vol] 9.8 mg/dL Normal 8.4 - 10. 2 mg/dL AO ADM SS Chloride [Moles/Vol] 105 mmol/L Normal 98 - 10 7 mmol/L AO ADM SS CO2 [Moles/Vol] 27 mmol/L Normal 23 - 31 mmol/L AO ADM SS Creatinine [Mass/Vol] 1.26 mg/dL High 0.55 - 1.02 mg/dL AO ADM SS Comment on above: Interpretive Data: T esting performed on Siemens Dimension EXL analyzer using a modified kinetic Lona technique. Electrolyte Balance 7.0 mEq/L Normal 4.0 - 15 .0 mEq/L AO ADM SS Eosinophil, Absolute 0.2 103/mcL Normal 0.0 - 0 .7 10^3/mcL AO Workflow SS Eosinophils/100 WBC (Bld) 2.9 % Normal 0.0 - 7.0 % AO Workflow SS Erythrocyte distribution width (RBC) [Ratio] 17.4 % High 11.5 - 15.5 % AO Workflow SS GFR/1.73 sq M.predicted among blacks MDRD (S/P/Bld) [Vol rate/Area] 51 ml/min/1.73sqm Invalid Interpretation Code AO Chemistry S Comment on above: Interpretive Data: GFR Population mean for , Non- Americans Ages 20-29 = 116 mL/min/1.73 sq.m. Ages 30-39 = 107 mL/min/1.73 sq.m. Ages 40-49 = 99 mL/min/1.73 sq.m. Ages 50-59 = 93 mL/min/1.73 sq.m. Ages 60-69 = 85 mL/min/1.73 sq.m. Ages 70+ = 75 mL/min/1.73 sq.m. Chronic Kidney Disease: Less than 60 mL/min/1.73 square meters End Stage Renal Disease: Less than 15 mL/min/1.73 square meters GFR/1.73 sq M.predicted among non-blacks MDRD (S/P/Bld) [Vol rate/Area] 42 ml/min/1.73sqm Invalid Interpretation Code AO Chemistry S Comment on above: Interpretive Data: GFR Population mean for , Non- Americans Ages 20-29 = 116 mL/min/1.73 sq.m. Ages 30-39 = 107 mL/min/1.73 sq.m. Ages 40-49 = 99 mL/min/1.73 sq.m. Ages 50-59 = 93 mL/min/1.73 sq.m. Ages 60-69 = 85 mL/min/1.73 sq.m. Ages 70+ = 75 mL/min/1.73 sq.m. Chronic Kidney Disease: Less than 60 mL/min/1.73 square meters End Stage Renal Disease: Less than 15 mL/min/1.73 square meters Glucose [Mass/Vol] 85 mg/dL Normal 83 - 110 mg/dL AO ADM SS Hematocrit (Bld) [Volume fraction] 33.1 % Low 34.0 - 46.0 % AO Workflow SS Hemoglobin (Bld) [Mass/Vol] 11.0 G/dL Low 12.0 - 16.0 G/dL AO Workflow SS Lymphocytes (Bld) [#/Vol] 1.5 103/mcL Normal 0.9 - 4.3 10^3/mcL AO Workflow SS Lymphocytes/100 WBC (Bld) 25.5 % Normal 20.0 - 40.0 % AO Workflow SS MCH (RBC) [Entitic mass] 31.7 pg Normal 27.0 - 33.0 pg AO Workflow SS MCHC 33.1 G/dL Normal 32.0 - 36.0 G/dL AO Workflow SS MCV (RBC) [Entitic vol] 95.7 fL Normal 80.0 - 99.0 fL AO Workflow SS Monocytes (Bld) [#/Vol] 0.6 103/mcL Normal 0.1 - 1.4 10^3/mcL AO Workflow SS Monocytes/100 WBC (Bld) 10.1 % Normal 2.0 - 13.0 % AO Workflow SS Neutrophils (Bld) [#/Vol] 3.5 103/mcL Normal 2.3 - 8.1 10^3/mcL AO Workflow SS Neutrophils/100 WBC (Bld) 61.2 % Normal 50.0 - 75.0 % AO Workflow SS Platelet mean volume (Bld) [Entitic vol] 10.1 fL Normal 6.6 - 10.5 fL AO Workflow SS Platelets (Bld) [#/Vol] 226 103/mcL Normal 150 - 450 10^3/mcL AO Workflow SS Potassium [Moles/Vol] 4.4 mmol/L Normal 3.5 - 5.1 mmol/L AO ADM SS RBC (Bld) [#/Vol] 3.46 106/mcL Low 4.10 - 5.3 0 10^6/mcL AO Workflow SS Sodium [Moles/Vol] 139 mmol/L Normal 136 - 145 mmol/L AO ADM SS Urea nitrogen [Mass/Vol] 11 mg/dL Normal 7 - 18 mg/dL AO ADM SS Urea nitrogen/Creatinine [Mass ratio] 9 ratio Normal 7 - 27 ratio AO ADM SS WBC (Bld) [#/Vol] 5.8 103/mcL Normal 4.5 - 10.8 10^3/mcL AO Workflow SS CNPYanet 06-25-2024 CNPN Telephone (HEMSTEPHANIE) -------- HERB VALDES ([id number]) 1955 F Date Time Provider Department 06/25/24 JASWINDER SCHMIDT During your visit today, we recorded the following information about you: Jaswinder Schmidt DO 06/25/2024 4:08 PM Signed Can let her know that the blood work we did the day of the office visit was suggestive that she still may have ongoing blood clots and she had been off the Eliquis. I spoke with Dr. Pedro. He does not feel comfortable doing her surgery at [facility] so he recommended a referral to a [facility] orthopedic surgeon. We could refer her to see someone at [place] or [facility]. Soonest appointment would be best. Tell her to continue Eliquis for now. Once she is reevaluated for surgery we can devise a plan to bridge her through with anticoagulation. DO Domitila Kelly Kara, LPN 06/25/2024 4:32 PM Signed TC to pt, no answer, no VM set up. Will try again later. Jenna Ramesh LPN 06/26/2024 10:50 AM Signed TC to pt and discussed, she is agreeable to this. She will continue Eliquis and see a [facility] ortho. PSS please assist pt in scheduling with a [facility] ortho to move forward with hip relplacement surgery as Dr Pedro does not feel comfortable doing at [facility].JESSICA Kraus Stephanie 06/26/2024 11:17 AM Signed ATC patient but no answer and voicemail is full. Meghna Griffith 07/01/2024 9:16 AM Signed Spoke with patient. She states he has an appointment this Saturday with Dr. Pedro to discuss. She will call back and schedule with [facility] orth if needed. Patient informed of order/referral. Jaswinder Schmidt DO 08/03/2024 8:33 AM Signed I received a form for surgical clearance for her. See if she is still taking apixaban. DO Eladio Kelly Melanie, LPN 08/03/2024 8:40 AM Signed Attempted to contact patient; VM full, unable to leave a message. JESSICA Mi Heather 08/03/2024 9:24 AM Signed Patient called back. States she NO longer taking that medication. Maribeth Lopez 08/03/2024 1:05 PM Signed Rodrigo called and stated they are needing the surgical clearance SAL because patient is on for surgery tomorrow. I did tell him we were waiting to hear back from the patient but we will get on this as quickly as possible. Maribeth Flores Fabi Sandra FabiMaribeth 08/03/2024 4:44 PM Signed 's office called again stating that there has been some issue getting the surgery clearance form faxed to them so to have Herb cleared for the surgery tomorrow needs to speak with via a phone call. Please call 's cell phone at [phone] when able tonight so Herb can still have surgery tomorrow. Maribeth Flores Tracy Olmedo LPN 08/03/2024 4:[address] Pedro would like to speak with you today concerning surgical clearance for tomorrow. cell number [phone] please call. JESSICA Serna Paul A, DO 08/03/2024 5:14 PM Signed Spoke with Dr. Pedro. I called patient. She was taking apixaban consistently up until last . Held it after that. Surgical clearance provided. We faxed the form to his office. Jaswinder Schmidt DO Allergies As of Date: 06/25/2024 Noted Allergy Reaction LISINOPRIL 01/01/2020 14 - Other: See Comments Comments: Low blood pressure altram [Other] 02/17/2007 1 - Mental Status Change CODEINE 02/22/2006 Date Reviewed: 06/17/2024 Reviewed by: Jaswinder Schmidt DO - Fully Assessed Reason for Visit: Follow Up [171] Primary Visit Diagnosis:Avascular necrosis of bone of left hip (HCC) [M87.052] Order(s):CONSULT TO ORTHOPAEDICS [9026] Order #: [id number]: 1 FUTURE Prescriptions as of 08/04/2024 - acetaminophen (TYLENOL) 325 mg tablet Take 2 tablets by mouth every 6 hours. - atorvastatin (LIPITOR) 40 mg tablet Take 1 tablet by mouth once daily. - clopidogrel (PLAVIX) 75 mg tablet Take 1 tablet by mouth once daily. - carvedilol (COREG) 25 mg tablet Take 25 mg by mouth twice daily with meals. - losartan (COZAAR) 100 mg tablet Take 100 mg by mouth once daily. - traZODone (DESYREL) 50 mg tablet Take 50 mg by mouth daily at bedtime. - eszopiclone (LUNESTA) 3 mg tab Take 3 mg by mouth daily at bedtime. - duloxetine (CYMBALTA) 60 mg ORAL CpDR Take 60 mg by mouth once daily. Problem List As Of Date 06/25/2024 Noted Resolved ACUTE GASTRITIS W HEMORRHAGE [K29.01] 02/22/2006 ABDOMINAL PAIN( Generalized) [R10.84] 02/22/2006 INCISIONAL HERNIA [K43.2] 02/22/2006 MELENA, BLOOD IN STOOL [K92.1] 02/22/2006 ABDOMINAL PAIN UNSPEC SITE [R10.9] 03/19/2006 ACUTE GASTRITIS W/O HEMORRHAGE [K29.00] 03/19/2006 DUODENITIS W/O HEMORRHAGE [K29.80] 03/19/2006 ACTINIC KERATOSIS [L57.0] 02/18/2007 CHR SOLAR SKIN DAMAGE NOS [L57.8] 02/18/2007 EXANTHEM///NONSPECIF SKIN ERUPT NEC [R21] 02/18/2007 LUPUS ERYTHEMATOSUS [L93.0] 02/18/2007 SO (more content not included)... Normal [facility] BETA 2 GLYCOPROTEIN, IGGon 0 06-17-2024 Beta 2 glycoprotein 1 IgG IA Qn <9 Normal <20 [facility] Comment on above: Order Comment: Speci men Type: BLOOD SPECIMEN Ordering Facility: [facility] Address: [address] [place] [address] Result Comment: <20 SGU Negative 20-80 SGU Low Positive >80 SGU High Positive These results were obtained with the 1Rebelva QUANTA Lite B2 GPI IgG ARNULFO. B2 GPI IgG values obtained with different manufacturers' assay methods may not be used interchangeably. The magnitude of the reported IgG levels cannot be correlated to an endpoint titer. Performed By: #### B ETAErnst, FREEDOMGISRA, JEAN, 5076-5 #### [facility] CLIA [id number] [address] [place] [address] [place] BETA 2 GLYCOPROTEIN, IGMon 0 06-17-2024 Beta 2 glycoprotein 1 IgM IA Qn 13 SMU Normal <20 [facility] Comment on above: Order Comment: Asaf reyna Type: BLOOD SPECIMEN Ordering Facility: [facility] Address: [address] [place] [address] Result Comment: <20 SMU Negative 20-80 SMU Low Positive >80 [facility]U High positive These results were obtained with the Inova QUANTA Lite B2 GPI IgM ARNULFO. B2 GPI IgM values obtained with different manufacturers' assay methods may not be used interchangeably. The magnitude of the reported IgM levels cannot be correlated to an endpoint titer. Performed By: #### B ETA2M, BETA2G, CARDIRanijt, CARDI, 5076-5 #### [facility] CLIA [id number] [address] [place] [address] [place] CARDIOLIPIN IGG ABSon 2023 Cardiolipin IgG IA Qn (S) <9.0 Normal <15.0 [facility] Comment on above: Order Comment: Asaf reyna Type: BLOOD SPECIMEN Ordering Facility: [facility] Address: [address] [place] [address] Result Comment: <15 GPL Negative 15-20 GPL Indeterminate >20 GPL Positive The following results were obtained with the Inova QUANTA Lite GUI IgG III ARNULFO. Cardiolipin IgG values obtained with the different manufacturers' assay methods may not be used interchangeably. The magnitude of the reported IgG levels cannot be correlated to an endpoint titer. Performed By: #### B ETA2M, BETA2G, CARDIRanjit, CARDI, 5076-5 #### [facility] CLIA [id number] [address] [place] [address] [place] CARDIOLIPIN IGM ABSon 2023 Cardiolipin IgM IA Qn (S) 14.6 MPL High <12.5 [facility] Comment on above: Order Comment: Asaf reyna Type: BLOOD SPECIMEN Ordering Facility: [facility] Address: [address] [place] [address] Result Comment: <12. 5 MPL Negative 12.5-20 MPL Indeterminate >20 MPL Positive The following results were obtained with the Inova QUANTA Lite GUI IgM III ARNULFO. Cardiolipin IgM values obtained with the different manufacturers' assay methods may not be used interchangeably. The magnitude of the reported IgM levels cannot be correlated to an endpoint titer. ??? Performed By: #### B MASOOD NICHOLE CARDIM, CARDIG, 5076-5 #### [facility] CLIA [id number] [address] [place] [address] OF [place] CNOVSPon 06-17-2024 CNOVSP Visit (SP) Office (HEMAWS) -------- HERB VALDES ([id number]) 1955 F Date Time Provider Department 06/17/24 2:00 PM JASWINDER SCHMIDT During your visit today, we recorded the following information about you: Temperature Pulse Blood pressure Weight 96.7 degrees 71/minute 127/73 57.4 kg Height 1.55 m Jaswinder Schmidt DO 06/17/2024 3:54 PM Signed Patient referred by Dr. Elliott for h/o PE. The impression and plan will be communicated by way of the shared electronic record or faxed under separate cover letter. HPI: The patient is a 68-year-old female with a past medical history as outlined below. The patient recalls today that she had been having symptoms of urinary urgency about 3 weeks prior to her hospitalization on 04/23. She did not have dysuria or gross hematuria. She was taken to the ED at [facility] on 04/19/2020 for 4 complaints of left hip pain (originally started when she fell in the shower a few months previous), low-grade fever with Tmax of 100.9 in the preceding few days as well as feeling generalized fatigue and malaise. Family related that she had not been eating or drinking much in the last few days. She underwent a CT scan of the abdomen pelvis which showed a dilated common bile duct. There was intrahepatic ductal dilation. She was noted to have stable bilateral renal cysts. A chest x-ray was reported as having no acute findings. On April 23, she evidently was disoriented and fell in the bathtub when trying to get out of it. She was then taken to the ED at [facility] that night. CTA of the chest on 04/23/2024 demonstrated a filling defect within the right upper lobe anterior segmental branch distally. Main pulmonary artery was noted to be normal in caliber. There was no evidence of right heart strain. No adenopathy was appreciated. There were trace left and small right pleural effusions with adjacent atelectasis and right middle and lower lobe consolidation. Diffuse groundglass opacities appreciated throughout the lungs bilaterally with scattered interlobar septal thickening. She was transferred to [facility]. She was also diagnosed with E. coli bladder infection and septicemia, chronic kidney disease stage III, anemia and hyponatremia that resolved at the time of discharge. She self discontinued apixaban on May 27 or May 28 because she wants to have the hip replacement surgery. Seeing Dr. Maged Pedro at [facility]. Denies cough and shortness of breath presently. Was advised to use a walker but isn't. PAST MEDICAL HISTORY No date: Abdominal pain, unspecified site 1998: Acute gastritis without mention of hemorrhage No date: Discoid lupus erythematosus 1998: Diverticulosis of colon (without mention of hemorrhage) No date: Duodenitis without mention of hemorrhage No date: History of nephrolithiasis No date: Peripheral vascular disease, unspecified ([facility]) Comment: Peripheral vascular disease 2012: S/P CABG x 1 No date: S/P coronary artery stent placement No date: Stricture of artery ([facility]) Comment: left subclavian No date: Unspecified essential hypertension Comment: Essential hypertension PAST SURGICAL HISTORY 2004: BYP OTH/THN VEIN COMMON-IPSILATERAL CAROTID Comment: Carotid Endarectomy - Left 2012: CABG (1) VEIN GRAFT AND ARTERIAL GRAFT 1972: CHOLECYSTECTOMY 1998: COLONOSCOPY Comment: diverticulosis 03/19/06: COLONOSCOPY FLX DX W/COLLJ SPEC WHEN PFRMD 1997: EGD Comment: Gastritis 03/19/06: EGD TRANSORAL BIOPSY SINGLE/MULTIPLE 1981: PAST SURGICAL HISTORY OF Comment: blocked bowel No date: PAST SURGICAL HISTORY OF Comment: heart stents 08/2000: STENT ARTERIAL EXTREMITY Comment: subclavian 1989: TOTAL ABDOMINAL HYSTERECT W/WO RMVL TUBE OVARY Comment: Hysterectomy, JEANNA ALLERGIES Allergen Reactions Lisinopril Other: See Comments Low blood pressure Altram [Other] Mental Status Change Codeine Current Outpatient Medications Medication Sig acetaminophen (TYLENOL) 325 mg tablet Take 2 tablets by mouth every 6 hours. atorvastatin (LIPITOR) 40 mg tablet Take 1 tablet by mouth once daily. clopidogrel (PLAVIX) 75 mg tablet Take 1 tablet by mouth once daily. carvedilol (COREG) 25 mg tablet Take 25 mg by mouth twice daily with meals. traZODone (DESYREL) 50 mg tablet Take 50 mg by mouth daily at bedtime. eszopiclone (LUNESTA) 3 mg tab Take 3 mg by mouth daily at bedtime. duloxetine (CYMBALTA) 60 mg ORAL CpDR Take 60 mg by mouth once daily. losartan (COZAAR) 100 mg tablet Take 100 mg by mouth once daily. (Patient not taking: Reported on 06/17/2024) No current facility-administered medications for this visit. Social History Tobacco Use Smoking status: Former Current packs/day: 0.00 Average packs/day: 1 pack/day for 30.0 years (30.0 ttl pk-yrs) Types: Cigarettes Start date: 1980 Quit date: 2010 Y (more content not included)... Normal [facility] Cardiolipin IgA Ser IA-aCnco n 06-17-2024 Cardiolipin IgA IA Qn (S) <9.0 Normal <12.0 [facility] Comment on above: Order Comment: Speci men Type: BLOOD SPECIMEN Ordering Facility: [facility] Address: [address] [place] [address] Result Comment: <12 APL Negative 12-20 APL Indeterminate >20 APL Positive The following results were obtained with the 1Rebelva QUANTA Lite GUI IgA III ARNULFO. Cardiolipin IgA values obtained with the different manufacturers' assay methods may not be used interchangeably. The magnitude of the reported IgA levels cannot be correlated to an endpoint titer. Performed By: #### B ETA2M, BETA2G, CARDIRanjit, CARDITara, 5076-5 #### [facility] CLIA [id number] [address] [place] [address] [place] D dimer FEU PPP-mCncon 06-17 Fibrin D-dimer FEU (PPP) [Mass/Vol] 1260 ng/mL FEU High <500 [facility] Comment on above: Order Comment: Speci men Type: BLOOD SPECIMENOrdering Facility: [facility] Address: [address] [place] [address] Result Comment: Froz en Plasma Aliquot Performed By: #### 4 8065-7 ####[facility] [id number] [facility] [address] OF [facility] [id number] [address] OF [place]#### [address]-0, 14523-1 ####[facility] [id number] [address] OF [place] D-DIMEROrdered By: Lien herrera on 06-17-2024 Fibrin D-dimer FEU (PPP) [Mass/Vol] 1260 High [facility] Comment on above: Frozen Plasma Aliquo t Fibrin D-dimer FEU (PPP) [Ma ss/Vol]Ordered By: Lien Art on 06-17-2024 D Dimer Age-related Cutoff 700 ng/mL FEU [facility] Interpretation and review of laboratory results Abnormal [facility] 500 ng/mL FEU is the D Dimer cutoff to exclude DVT (deep vein thrombosis) and PE (pulmonary embolism) in patients with a low pre test probability. Supplemental Comment: In patients over 50 years with a low pre test probability for DVT and/or PE, an age adjusted D dimer cutoff can be calculated as [age x 10] ng/mL FEU. For example, a patient of 88 years would have an age adjusted D dimer cutoff of 880 ng/mL FEU. For patients with a suspected DVT, a D dimer level below 500 ng/mL FEU has a negative predictive value of >98.9%, a sensitivity of >96.9% and a specificity of >35.7%. For patients with a suspected PE, a D dimer level below 500 ng/mL FEU has a negative predictive value of >98.5%, and a sensitivity of >96.5% and a specificity of >38.8%. Reference: Sheldon M, et al. KACIE 2014 311:1117 and Van Ashley N, et al. [facility]a Int Med 2016 165:253. [facility] Fibrin D-dimer FEU (PPP) [Ma ss/Vol]on 06-17-2024 D DIMER AGE-RELATED CUTOFF 700 ng/mL FEU Normal [facility] Comment on above: Order Comment: Speci men Type: BLOOD SPECIMENOrdering Facility: [facility] Address: [address] [place] [address] Performed By: #### 4 8065-7 ####[facility] [id number] [place] [id number] [place] [address] [place]#### 72389-7, 55382-4 ####[facility] [id number] [place] [address] [place] LUPUS PANELon 06-17-2024 aPTT Coag (Bld) [Time] 42.1 s Normal 30.2-43.0 [facility] Comment on above: Order Comment: Speci men Type: BLOOD SPECIMENOrdering Facility: [facility] Address: [address] [place] [address] Performed By: #### L UPPL ####[facility] LABCLIA [id number] [address] [place] aPTT Coag (Bld) [Time] 36.2 s Normal 31.5-38.3 [facility] Comment on above: Order Comment: Speci men Type: BLOOD SPECIMENOrdering Facility: [facility] Address: [address] [place] [address] Performed By: #### L UPPL ####[facility] LABIA [id number] [place] [id number] [place] aPTT Coag (Bld) [Time] 34.3 s Normal 24.0-35.1 [facility] Comment on above: Order Comment: Speci men Type: BLOOD SPECIMENOrdering Facility: [facility] Address: [address] [place] [address] Performed By: #### L UPPL ####[facility] LABCLIA [id number] [place] [address] [place] aPTT W excess hexagonal phase phospholipid Coag (PPP) [Time] 48.9 seconds Normal 34.0-51.8 [facility] Comment on above: Order Comment: Speci men Type: BLOOD SPECIMENOrdering Facility: [facility] Address: [address] [place] [address] Performed By: #### L UPPL ####[facility] LABCLIA [id number] [place] [address] [place] Coagulation factor X activated act Coag Qn (PPP) <0.10 Normal <0.10 [facility] Comment on above: Order Comment: Speci men Type: BLOOD SPECIMENOrdering Facility: [facility] Address: [address] [place] [address] Result Comment: This test was developed and its performance characteristics determined by [facility] [place] ([facility]). It has not been cleared or approved by the FDA. RT-PLMI is regulated under CLIA as qualified to perform high-complexity testing. This test is used for clinical purposes. It should not be regarded as investigational or for research. Performed By: #### L UPPL ####[facility] LABCLIA [id number] [address] [place] Delta dRVVT Coag (PPP) [Time diff] 0.7 delta seconds Normal <7.1 [facility] Comment on above: Order Comment: Speci men Type: BLOOD SPECIMENOrdering Facility: [facility] Address: [address] [place] [address] Performed By: #### L UPPL ####[facility] [id number] [place] [address] [place] dRVVT Coag (PPP) [Time] 42.9 s Normal 32.0-45.7 [facility] Comment on above: Order Comment: Speci men Type: BLOOD SPECIMENOrdering Facility: [facility] Address: [address] [place] [address] Performed By: #### L UPPL ####[facility] [id number] [place] [address] [place] dRVVT factor substitution immediately after 1:2 addition of normal plasma Coag (PPP) [Time] 37.7 seconds Normal 32.0-45.7 [facility] Comment on above: Order Comment: Speci men Type: BLOOD SPECIMENOrdering Facility: [facility] Address: [address] [place] [address] Performed By: #### L UPPL ####[facility] [id number] [place] [address] [place] dRVVT W excess hexagonal phase phospholipid actual/normal Coag (PPP) [Relative time] 48.2 seconds High 34.2-47.9 [facility] Comment on above: Order Comment: Speci men Type: BLOOD SPECIMENOrdering Facility: [facility] Address: [address] [place] [address] Performed By: #### L UPPL ####[facility] [id number] [place] [address] [place] dRVVT/dRVVT.excess phospholipid Coag (PPP) [Ratio] 1.10 Normal <1.32 [facility] Comment on above: Order Comment: Speci men Type: BLOOD SPECIMENOrdering Facility: [facility] Address: [address] [place] [address] Performed By: #### L UPPL ####[facility] [id number] [place] [address] [place] PLATELET NEUT 0.0 Seconds Normal <1.9 [facility] Comment on above: Order Comment: Asaf reyna Type: BLOOD SPECIMENOrdering Facility: [facility] Address: [address] [place] [address] Performed By: #### L UPPL ####[facility] LABCLIA [id number] [address] [place] Thrombin time Coag (PPP) [Time] 17.8 seconds Normal <18.6 [facility] Comment on above: Order Comment: Asaf reyna Type: BLOOD SPECIMENOrdering Facility: [facility] Address: [address] [place] [address] Performed By: #### L UPPL ####[facility] LABCLIA [id number] [address] [place] PT panel Coag (PPP)on 2023 INR Coag (PPP) [Relative time] 1.0 {INR} Normal 0.9-1.3 [facility] Comment on above: Order Comment: Asaf reyna Type: BLOOD SPECIMEN Ordering Facility: [facility] Address: [address] [place] [address] Result Comment: Adri min K Antagonist (VKA) Therapeutic Range: INR 2 to 3 (Target INR of 2.5) Note: For patients treated with VKA drugs, such as warfarin, the [place] [employer] 2012 Guideline recommends a therapeutic INR range of 2 to 3 (target INR of 2.5). This recommendation includes high-risk patients with antiphospholipid syndrome with previous arterial or venous thromboembolism, current-generation mechanical or bioprosthetic aortic heart valve replacement. Note: Patients with mechanical aortic valve replacement and additional risk factors for thromboembolic events (atrial fibrillation, previous thromboembolism, LV dysfunction, hypercoagulable conditions) or an older generation mechanical AVR (i.e., ball in-Cage) or any mechanical MVR should have a INR therapeutic range of 2.5 to 3.5 (target INR of 3). Roly HUTCHISON, et al. Chest 2012, 141:7S-47S Huseyin RA, et al. [facility] 2017, 70: 252-289 Performed By: #### 4 8065-7 #### [facility] LAB CLIA [id number] [address] [place] [address] [place] [facility] CLIA [id number] [address] [place] [address] [place] #### 03838-5, 96318-4 #### [facility] CLIA [id number] [address] [place] [address] [place] PT Coag (PPP) [Time] 10.5 s Normal <13.1 [facility] Comment on above: Order Comment: Speci men Type: BLOOD SPECIMEN Ordering Facility: [facility] Address: [address] [place] [address] Performed By: #### 4 8065-7 #### [facility] LAB CLIA [id number] [address] [place] [address] [place] [facility] CLIA [id number] [address] [place] [address] [place] #### 80240-7, 40708-0 #### [facility] CLIA [id number] [address] [place] [address] [place] aPTT PPPon 06-17-2024 aPTT Coag (PPP) [Time] 26.8 s Normal 23.0-32.4 [facility] Comment on above: Order Comment: Speci men Type: BLOOD SPECIMEN [facility] Address: [address] [place] [address] Performed By: #### 4 8065-7 #### [facility] LAB CLIA [id number] [address] [place] [address] [place] [facility] CLIA [id number] [address] [place] [address] #### 45585-1, 22954-6 #### [facility] CLIA [id number] [address] [place] [address] NM MYOCARDIAL SPECT STRESS/R ESTon 06-02-2024 NM MYOCARDIAL SPECT STRESS/REST ORIGINAL NM MYOCARDIAL SPECT STRESS/REST CLINICAL STATEMENT: SOB, angina, CAD TECHNIQUE: Lexiscan dose:0.4 mg Radiopharmaceutical (stress): Tc-99m Sestamibi Dose:30.9 mCi Radiopharmaceutical (rest): Tc-99m Sestamibi Dose:10.6 mCi SPECT acquisition and processing Reconstruction and reorientation of SPECT images into short axis, vertical and horizontal long axis planes Quantitative LVEF assessment COMPARISON:08/14/2022 REPORT:The LEFT ventricle is normal in size. On gated imaging the ejection fraction is normal at greater than 70% with normal wall motion. On stress images there is a decrease in the uptake of activity in the anterior and anteroseptal wall extending to the apex. There is no significant improvement in the uptake of activity in this area on rest images. There otherwise is relatively homogenous uptake of activity in other areas the myocardium. IMPRESSION: 1. No evidence of significant inducible ischemia or prior myocardial infarction. 2. Normal ejection fraction of greater than 70% with normal wall motion. 3. Breast tissue attenuation artifact. 4. Compared to the prior study there has been no significant interval change. Interpreted By: Wilbur Velasco MD Preliminary Report By: Wilbur Velasco MD Electronically Signed By: Wilbur Velasco MD Dictated Date: 06/02/2024 12:29:09 PM Prelim Date: 06/02/2024 12:29:09 PM Sign Date: 06/02/2024 12:32:18 PM Ordering Provider:Velma Francisco [facility] ([place]) No Panel Informationon 05-16 Culture Urine 10,000 - 50,000 cfu/ ml Mixed growth consistent with normal urogenital katelynn. [facility] .Auto Diffon 04-30-2024 Basophil, Absolute 0.1 10 3/mcL Normal 0.0-0.3 [facility] ([place]) Comment on above: Performed By: #### C BC, BMP, ADIFF, ANEU, GFR ####[address] [address] Basophils/100 WBC (Bld) 0.6 % Normal 0.0-2.5 [facility] ([place]) Comment on above: Performed By: #### C BC, BMP, ADIFF, ANEU, GFR ####[address] [address] Eosinophil, Absolute 0.0 10 3/mcL Normal 0.0-0.7 [facility] ([place]) Comment on above: Performed By: #### C BC, BMP, ADIFF, ANEU, GFR ####[address] [address] Eosinophils/100 WBC (Bld) 0.2 % Normal 0.0-6.0 [facility] ([place]) Comment on above: Performed By: #### C BC, BMP, ADIFF, ANEU, GFR ####[address] [address] Lymphocyte, Absolute 1.4 10 3/mcL Normal 0.9-4.3 [facility] ([place]) Comment on above: Performed By: #### C BC, BMP, ADIFF, ANEU, GFR ####[address] [address] Lymphocytes/100 WBC (Bld) 9.1 % Low 20.0-40.0 [facility] ([place]) Comment on above: Performed By: #### C BC, BMP, ADIFF, ANEU, GFR ####[address] [address] Monocyte, Absolute 0.6 10 3/mcL Normal 0.1-1.4 [facility] ([place]) Comment on above: Performed By: #### C BC, BMP, ADIFF, ANEU, GFR ####[address] [address] Monocytes/100 WBC (Bld) 4.3 % Normal 2.0-13.0 [facility] ([place]) Comment on above: Performed By: #### C BC, BMP, ADIFF, ANEU, GFR ####[address] [address] Neutrophils/100 WBC (Bld) 85.8 % High 50.0-75.0 [facility] ([place]) Comment on above: Performed By: #### C BC, BMP, ADIFF, ANEU, GFR ####[address] [address] .CRYBF Path Reviewon 024 CRYPF Path Review Negative Normal [facility] ([place]) Comment on above: Result Comment: Elec tronically signed by: MICHAEL SKINNER 04.30.2024 13:49 EDT Performed By: #### C RYBFPR, CRYBF, SYNCT ####[place] [address] .GFRon 04-30-2024 GFR >60 Normal [facility] ([place]) Comment on above: Result Comment: GFR Population mean for , Non- Americans Ages 20-29 = 116 mL/min/1.73 sq.m. Ages 30-39 = 107 mL/min/1.73 sq.m. Ages 40-49 = 99 mL/min/1.73 sq.m. Ages 50-59 = 93 mL/min/1.73 sq.m. Ages 60-69 = 85 mL/min/1.73 sq.m. Ages 70+ = 75 mL/min/1.73 sq.m. Chronic Kidney Disease: Less than 60 mL/min/1.73 square meters End Stage Renal Disease: Less than 15 mL/min/1.73 square meters Performed By: #### C BC, BMP, ADIFF, ANEU, GFR ####[address] [address] GFR Non- >60 Normal [facility] ([place]) Comment on above: Result Comment: GFR Population mean for , Non- Americans Ages 20-29 = 116 mL/min/1.73 sq.m. Ages 30-39 = 107 mL/min/1.73 sq.m. Ages 40-49 = 99 mL/min/1.73 sq.m. Ages 50-59 = 93 mL/min/1.73 sq.m. Ages 60-69 = 85 mL/min/1.73 sq.m. Ages 70+ = 75 mL/min/1.73 sq.m. Chronic Kidney Disease: Less than 60 mL/min/1.73 square meters End Stage Renal Disease: Less than 15 mL/min/1.73 square meters Performed By: #### C BC, BMP, ADIFF, ANEU, GFR ####[address] [address] .NEUABSon 04-30-2024 Neutrophil, Absolute 12.9 10 3/mcL High 2.3-8.1 A [facility] ([place]) Comment on above: Performed By: #### C BC, BMP, ADIFF, ANEU, GFR ####[place] [address] BMPon 04-30-2024 BUN/Creatinine Ratio 10.0 ratio Normal 10.0-22.0 [facility] ([place]) Comment on above: Performed By: #### C BC, BMP, ADIFF, ANEU, GFR ####[place] [address] Calcium [Mass/Vol] 8.5 mg/dL Low 8.7-10.4 [facility] ([place]) Comment on above: Performed By: #### C BC, BMP, ADIFF, ANEU, GFR ####[place] [address] Chloride [Moles/Vol] 100 mmol/L Normal 98-110 [facility] ([place]) Comment on above: Performed By: #### C BC, BMP, ADIFF, ANEU, GFR ####[place] [address] CO2 [Moles/Vol] 27 mmol/L Normal 22-32 [facility] ([place]) Comment on above: Performed By: #### C BC, BMP, ADIFF, ANEU, GFR ####[place] [address] Creatinine [Mass/Vol] 0.70 mg/dL Normal 0.50-1.20 [facility] ([place]) Comment on above: Performed By: #### C BC, BMP, ADIFF, ANEU, GFR ####[place] [address] Electrolyte Balance 12.0 mEq/L Normal 4.0-15.0 [facility] ([place]) Comment on above: Performed By: #### C BC, BMP, ADIFF, ANEU, GFR ####[place] [address] Glucose [Mass/Vol] 157 mg/dL High 82-115 [facility] ([place]) Comment on above: Performed By: #### C BC, BMP, ADIFF, ANEU, GFR ####[place] [address] Potassium [Moles/Vol] 3.6 mmol/L Normal 3.5-5.0 [facility] ([place]) Comment on above: Performed By: #### C BC, BMP, ADIFF, ANEU, GFR ####[place] [address] Sodium [Moles/Vol] 139 mmol/L Normal 136-145 [facility] ([place]) Comment on above: Performed By: #### C BC, BMP, ADIFF, ANEU, GFR ####[place] [address] Urea nitrogen [Mass/Vol] 7.0 mg/dL Low 8.0-22.0 [facility] ([place]) Comment on above: Performed By: #### C BC, BMP, ADIFF, ANEU, GFR ####[place] [address] CBCon 04-30-2024 Erythrocyte distribution width (RBC) [Ratio] 17.9 % High 11.5-15.5 [facility] ([place]) Comment on above: Performed By: #### C BC, BMP, ADIFF, ANEU, GFR ####[place] [address] Hematocrit (Bld) [Volume fraction] 32.8 % Low 34.0-46.0 [facility] ([place] Comment on above: Performed By: #### C BC, BMP, ADIFF, ANEU, GFR ####[place] [address] Hgb 10.9 G/dL Low 12.0-16.0 [facility] ([place] Comment on above: Performed By: #### C BC, BMP, ADIFF, ANEU, GFR ####[place] [address] MCH (RBC) [Entitic mass] 31.3 pg Normal 27.0-33.0 [facility] ([place]) Comment on above: Performed By: #### C BC, BMP, ADIFF, ANEU, GFR ####[place] [address] MCHC 33.2 G/dL Normal 32.0-36.0 [facility] ([place]) Comment on above: Performed By: #### C BC, BMP, ADIFF, ANEU, GFR ####[place] [address] MCV (RBC) [Entitic vol] 94.3 fL Normal 80.0-99.0 [facility] ([place]) Comment on above: Performed By: #### C BC, BMP, ADIFF, ANEU, GFR ####[place] [address] Platelet 353 10 3/mcL Normal 150-450 [facility] ([place]) Comment on above: Performed By: #### C BC, BMP, ADIFF, ANEU, GFR ####[place] [address] Platelet mean volume (Bld) [Entitic vol] 9.1 fL Normal 6.6-10.5 [facility] ([place]) Comment on above: Performed By: #### C BC, BMP, ADIFF, ANEU, GFR ####[place] [address] RBC 3.48 10 6/mcL Low 4.10-5.30 [facility] ([place]) Comment on above: Performed By: #### C BC, BMP, ADIFF, ANEU, GFR ####[place] [address] WBC 15.0 10 3/mcL High 4.5-10.8 [facility] ([place]) Comment on above: Performed By: #### C BC, BMP, ADIFF, ANEU, GFR ####[place] [address] LABORATORYOrdered By: SYSTEM SYSTEM on 04-30-2024 Basophils (Bld) [#/Vol] 0.1 103/mcL Normal 0.0 - 0.3 10^3/mcL AH Workflow SS Basophils/100 WBC (Bld) 0.6 % Normal 0.0 - 2.5 % AH Workflow SS Calcium [Mass/Vol] 8.5 mg/dL Low 8.7 - 10. 4 mg/dL AH ADM SS Chloride [Moles/Vol] 100 mmol/L Normal 98 - 11 0 mEq/L ADM SS CO2 [Moles/Vol] 27 mmol/L Normal 22 - 32 mEq/L ADM SS Creatinine [Mass/Vol] 0.70 mg/dL Normal 0.50 - 1.20 mg/dL AH ADM SS Electrolyte Balance 12.0 mEq/L Normal 4.0 - 15 .0 mEq/L AH ADM SS Eosinophils (Bld) [#/Vol] 0.0 103/mcL Normal 0.0 - 0.7 10^3/mcL AH Workflow SS Eosinophils/100 WBC (Bld) 0.2 % Normal 0.0 - 6.0 % AH Workflow SS Erythrocyte distribution width (RBC) [Ratio] 17.9 % High 11.5 - 15.5 % AH Workflow SS GFR/1.73 sq M.predicted among blacks MDRD (S/P/Bld) [Vol rate/Area] ml/min/1.73sqm Invalid Interpretation Code Chemistry S Comment on above: Interpretive Data: GFR Population mean for , Non- Americans Ages 20-29 = 116 mL/min/1.73 sq.m. Ages 30-39 = 107 mL/min/1.73 sq.m. Ages 40-49 = 99 mL/min/1.73 sq.m. Ages 50-59 = 93 mL/min/1.73 sq.m. Ages 60-69 = 85 mL/min/1.73 sq.m. Ages 70+ = 75 mL/min/1.73 sq.m. Chronic Kidney Disease: Less than 60 mL/min/1.73 square meters End Stage Renal Disease: Less than 15 mL/min/1.73 square meters GFR/1.73 sq M.predicted among non-blacks MDRD (S/P/Bld) [Vol rate/Area] ml/min/1.73sqm Invalid Interpretation Code Chemistry S Comment on above: Interpretive Data: GFR Population mean for , Non- Americans Ages 20-29 = 116 mL/min/1.73 sq.m. Ages 30-39 = 107 mL/min/1.73 sq.m. Ages 40-49 = 99 mL/min/1.73 sq.m. Ages 50-59 = 93 mL/min/1.73 sq.m. Ages 60-69 = 85 mL/min/1.73 sq.m. Ages 70+ = 75 mL/min/1.73 sq.m. Chronic Kidney Disease: Less than 60 mL/min/1.73 square meters End Stage Renal Disease: Less than 15 mL/min/1.73 square meters Glucose [Mass/Vol] 157 mg/dL High 82 - 115 mg/dL ADM SS Hematocrit (Bld) [Volume fraction] 32.8 % Low 34.0 - 46.0 % AH Workflow SS Hemoglobin (Bld) [Mass/Vol] 10.9 G/dL Low 12.0 - 16.0 G/dL AH Workflow SS Lymphocytes (Bld) [#/Vol] 1.4 103/mcL Normal 0.9 - 4.3 10^3/mcL AH Workflow SS Lymphocytes/100 WBC (Bld) 9.1 % Low 20.0 - 40.0 % AH Workflow SS MCH (RBC) [Entitic mass] 31.3 pg Normal 27.0 - 33.0 pg AH Workflow SS MCHC 33.2 G/dL Normal 32.0 - 36.0 G/dL AH Workflow SS MCV (RBC) [Entitic vol] 94.3 fL Normal 80.0 - 99.0 fL AH Workflow SS Monocytes (Bld) [#/Vol] 0.6 103/mcL Normal 0.1 - 1.4 10^3/mcL AH Workflow SS Monocytes/100 WBC (Bld) 4.3 % Normal 2.0 - 13.0 % AH Workflow SS Neutrophils (Bld) [#/Vol] 12.9 103/mcL High 2.3 - 8.1 10^3/mcL AH Workflow SS Neutrophils/100 WBC (Bld) 85.8 % High 50.0 - 75.0 % AH Workflow SS Platelet mean volume (Bld) [Entitic vol] 9.1 fL Normal 6.6 - 10.5 fL AH Workflow SS Platelets (Bld) [#/Vol] 353 103/mcL Normal 150 - 450 10^3/mcL AH Workflow SS Potassium [Moles/Vol] 3.6 mmol/L Normal 3.5 - 5.0 mEq/L AH ADM SS RBC (Bld) [#/Vol] 3.48 106/mcL Low 4.10 - 5.3 0 10^6/mcL AH Workflow SS Sodium [Moles/Vol] 139 mmol/L Normal 136 - 145 mEq/L AH ADM SS Urea nitrogen [Mass/Vol] 7.0 mg/dL Low 8.0 - 22.0 mg/dL AH ADM SS Urea nitrogen/Creatinine [Mass ratio] 10.0 ratio Normal 10.0 - 22.0 ratio AH ADM SS WBC (Bld) [#/Vol] 15.0 103/mcL High 4.5 - 10.8 10^3/mcL AH Workflow SS .GFRon 04-29-2024 GFR >60 Normal [facility] ([place]) Comment on above: Result Comment: GFR Population mean for , Non- Americans Ages 20-29 = 116 mL/min/1.73 sq.m. Ages 30-39 = 107 mL/min/1.73 sq.m. Ages 40-49 = 99 mL/min/1.73 sq.m. Ages 50-59 = 93 mL/min/1.73 sq.m. Ages 60-69 = 85 mL/min/1.73 sq.m. Ages 70+ = 75 mL/min/1.73 sq.m. Chronic Kidney Disease: Less than 60 mL/min/1.73 square meters End Stage Renal Disease: Less than 15 mL/min/1.73 square meters Performed By: #### H FP, BMP, MORPH, CBC, DIFF, GFR ####[place] [address] GFR Non- >60 Normal [facility] ([place]) Comment on above: Result Comment: GFR Population mean for , Non- Americans Ages 20-29 = 116 mL/min/1.73 sq.m. Ages 30-39 = 107 mL/min/1.73 sq.m. Ages 40-49 = 99 mL/min/1.73 sq.m. Ages 50-59 = 93 mL/min/1.73 sq.m. Ages 60-69 = 85 mL/min/1.73 sq.m. Ages 70+ = 75 mL/min/1.73 sq.m. Chronic Kidney Disease: Less than 60 mL/min/1.73 square meters End Stage Renal Disease: Less than 15 mL/min/1.73 square meters Performed By: #### H FP, BMP, MORPH, CBC, DIFF, GFR ####[address] [address] .Manual Diffon 04-29-2024 Bands 2.0 % Normal 0.0-5.0 [facility] ([place]) Comment on above: Performed By: #### H FP, BMP, MORPH, CBC, DIFF, GFR ####[place] [address] Basophil %, Manual 0.0 % Normal 0.0-2.5 [facility] ([place]) Comment on above: Performed By: #### H FP, BMP, MORPH, CBC, DIFF, GFR ####[place] [address] Basophil, Abs Manual 0.0 10 3/mcL Normal 0.0-0.3 [facility] ([place]) Comment on above: Performed By: #### H FP, BMP, MORPH, CBC, DIFF, GFR ####[place] [address] Eosinophil %, Manual 2.0 % Normal 0.0-6.0 [facility] ([place]) Comment on above: Performed By: #### H FP, BMP, MORPH, CBC, DIFF, GFR ####[place] [address] Eosinophil, Abs Manual 0.3 10 3/mcL Normal 0.0-0.7 [facility] ([place]) Comment on above: Performed By: #### H FP, BMP, MORPH, CBC, DIFF, GFR ####[place] [address] Lymphocyte %, Manual 5.0 % Low 20.0-40.0 [facility] ([place]) Comment on above: Performed By: #### H FP, BMP, MORPH, CBC, DIFF, GFR ####[address] [address] Lymphocyte, Abs Manual 0.9 10 3/mcL Normal 0.9-4.3 [facility] ([place]) Comment on above: Performed By: #### H FP, BMP, MORPH, CBC, DIFF, GFR ####[place] [address] Monocyte %, Manual 4.0 % Normal 2.0-13.0 [facility] ([place]) Comment on above: Performed By: #### H FP, BMP, MORPH, CBC, DIFF, GFR ####[place] [address] Monocyte, Abs Manual 0.7 10 3/mcL Normal 0.1-1.4 [facility] ([place]) Comment on above: Performed By: #### H FP, BMP, MORPH, CBC, DIFF, GFR ####[address] [address] Myelocyte 1.0 % Normal [facility] ([place]) Comment on above: Performed By: #### H FP, BMP, MORPH, CBC, DIFF, GFR ####[address] [address] Neutrophil %, Manual 86.0 % High 50.0-75.0 [facility] ([place]) Comment on above: Performed By: #### H FP, BMP, MORPH, CBC, DIFF, GFR ####[address] [address] Neutrophil, Abs Manual 15.5 10 3/mcL High 2.3-8.1 [facility] ([place]) Comment on above: Performed By: #### H FP, BMP, MORPH, CBC, DIFF, GFR ####[address] [address] Nucleated RBC 0.0 /100 WBC Normal [facility] ([place]) Comment on above: Performed By: #### H FP, BMP, MORPH, CBC, DIFF, GFR ####[place] [address] .Morphon 04-29-2024 Anisocytosis Ql (Bld) 1+ Normal [facility] ([place]) Comment on above: Performed By: #### H FP, BMP, MORPH, CBC, DIFF, GFR ####[place] [address] Large Platelets Few Normal [facility] ([place]) Comment on above: Performed By: #### H FP, BMP, MORPH, CBC, DIFF, GFR ####[place] [address] Ovalocytes 1+ Normal [facility] ([place]) Comment on above: Performed By: #### H FP, BMP, MORPH, CBC, DIFF, GFR ####[place] [address] Platelet Estimate Normal Normal [facility] ([place]) Comment on above: Performed By: #### H FP, BMP, MORPH, CBC, DIFF, GFR ####[place] [address] Poik 1+ Normal [facility] ([place]) Comment on above: Performed By: #### H FP, BMP, MORPH, CBC, DIFF, GFR ####[place] [address] Polychrom 1+ Normal [facility] ([place]) Comment on above: Performed By: #### H FP, BMP, MORPH, CBC, DIFF, GFR ####[place] [address] Tear Cell 1+ Normal [facility] [facility] ([place]) Comment on above: Performed By: #### H FP, BMP, MORPH, CBC, DIFF, GFR ####[place] [address] Toxic Gran [facility] ([place]) Comment on above: Performed By: #### H FP, BMP, MORPH, CBC, DIFF, GFR ####[place] [address] BMPon 04-29-2024 BUN/Creatinine Ratio 10.5 ratio Normal 10.0-22.0 [facility] ([place]) Comment on above: Performed By: #### H FP, BMP, MORPH, CBC, DIFF, GFR ####[address] [address] Calcium [Mass/Vol] 8.3 mg/dL Low 8.7-10.4 [facility] ([place]) Comment on above: Performed By: #### H FP, BMP, MORPH, CBC, DIFF, GFR ####[place] [address] Chloride [Moles/Vol] 108 mmol/L Normal 98-110 [facility] ([place]) Comment on above: Performed By: #### H FP, BMP, MORPH, CBC, DIFF, GFR ####[place] [address] CO2 [Moles/Vol] 27 mmol/L Normal 22-32 [facility] ([place]) Comment on above: Performed By: #### H FP, BMP, MORPH, CBC, DIFF, GFR ####[place] [address] Creatinine [Mass/Vol] 0.86 mg/dL Normal 0.50-1.20 [facility] ([place]) Comment on above: Performed By: #### H FP, BMP, MORPH, CBC, DIFF, GFR ####[address] [address] Electrolyte Balance 6.0 mEq/L Normal 4.0-15.0 [facility] ([place]) Comment on above: Performed By: #### H FP, BMP, MORPH, CBC, DIFF, GFR ####[address] [address] Glucose [Mass/Vol] 92 mg/dL Normal 82-115 [facility] ([place]) Comment on above: Performed By: #### H FP, BMP, MORPH, CBC, DIFF, GFR ####[place] [address] Potassium [Moles/Vol] 3.5 mmol/L Normal 3.5-5.0 [facility] ([place]) Comment on above: Performed By: #### H FP, BMP, MORPH, CBC, DIFF, GFR ####[place] [address] Sodium [Moles/Vol] 141 mmol/L Normal 136-145 [facility] ([place]) Comment on above: Performed By: #### H FP, BMP, MORPH, CBC, DIFF, GFR ####[place] [address] Urea nitrogen [Mass/Vol] 9.0 mg/dL Normal 8.0-22.0 [facility] ([place]) Comment on above: Performed By: #### H FP, BMP, MORPH, CBC, DIFF, GFR ####[place] [address] CBCon 04-29-2024 Erythrocyte distribution width (RBC) [Ratio] 17.3 % High 11.5-15.5 [facility] ([place]) Comment on above: Performed By: #### H FP, BMP, MORPH, CBC, DIFF, GFR ####[place] [address] Hematocrit (Bld) [Volume fraction] 30.6 % Low 34.0-46.0 [facility] ([place]) Comment on above: Performed By: #### H FP, BMP, MORPH, CBC, DIFF, GFR ####[place] [address] Hgb 10.2 G/dL Low 12.0-16.0 [facility] ([place]) Comment on above: Performed By: #### H FP, BMP, MORPH, CBC, DIFF, GFR ####[place] [address] MCH (RBC) [Entitic mass] 31.5 pg Normal 27.0-33.0 [facility] ([place]) Comment on above: Performed By: #### H FP, BMP, MORPH, CBC, DIFF, GFR ####[place] [address] MCHC 33.3 G/dL Normal 32.0-36.0 [facility] ([place]) Comment on above: Performed By: #### H FP, BMP, MORPH, CBC, DIFF, GFR ####[place] [address] MCV (RBC) [Entitic vol] 94.7 fL Normal 80.0-99.0 [facility] ([place]) Comment on above: Performed By: #### H FP, BMP, MORPH, CBC, DIFF, GFR ####[place] [address] Platelet 337 10 3/mcL Normal 150-450 [facility] ([place]) Comment on above: Performed By: #### H FP, BMP, MORPH, CBC, DIFF, GFR ####[place] [address] Platelet mean volume (Bld) [Entitic vol] 9.0 fL Normal 6.6-10.5 [facility] ([place]) Comment on above: Performed By: #### H FP, BMP, MORPH, CBC, DIFF, GFR ####[place] [address] RBC 3.23 10 6/mcL Low 4.10-5.30 [facility] ([place]) Comment on above: Performed By: #### H FP, BMP, MORPH, CBC, DIFF, GFR ####[place] [address] WBC 17.7 10 3/mcL High 4.5-10.8 [facility] ([place]) Comment on above: Performed By: #### H FP, BMP, MORPH, CBC, DIFF, GFR ####[place] [address] CRYBFon 04-29-2024 Crystal BF Sp Synovial fluid Normal [facility] ([place]) Comment on above: Order Comment: Left hip synovial fluid IR aspiration Performed By: #### C RYBFPR, CRYBF, SYNCT ####[place] [address] HFPon 04-29-2024 Bili Indirect 0.2 mg/dL Normal 0.1-10.0 [facility] ([place]) Comment on above: Performed By: #### H FP, BMP, MORPH, CBC, DIFF, GFR ####[place] [address] Albumin Level 2.1 G/dL Low 3.2-4.8 [facility] ([place] Comment on above: Performed By: #### H FP, BMP, MORPH, CBC, DIFF, GFR ####[address] [address] Albumin/Globulin [Mass ratio] 0.6 {ratio} Low 0.9-1.6 [facility] ([place]) Comment on above: Performed By: #### H FP, BMP, MORPH, CBC, DIFF, GFR ####[place] [address] ALP [Catalytic activity/Vol] 276 U/L High 38-126 [facility] ([place]) Comment on above: Performed By: #### H FP, BMP, MORPH, CBC, DIFF, GFR ####[place] [address] ALT [Catalytic activity/Vol] 110 U/L High 10-49 [facility] ([place]) Comment on above: Performed By: #### H FP, BMP, MORPH, CBC, DIFF, GFR ####[place] [address] AST [Catalytic activity/Vol] 74 U/L High 8-34 [facility] ([place]) Comment on above: Performed By: #### H FP, BMP, MORPH, CBC, DIFF, GFR ####[place] [address] Bili Direct 0.2 mg/dL Normal 0.0-0.4 [facility] ([place]) Comment on above: Result Comment: Use of this assay is not recommended for patients undergoing treatment with eltrombopag due to the potential for falsely elevated results. Performed By: #### H FP, BMP, MORPH, CBC, DIFF, GFR ####[place] [address] Bili Total 0.40 mg/dL Normal 0.20-1.20 [facility] ([place]) Comment on above: Result Comment: Use of this assay is not recommended for patients undergoing treatment with eltrombopag due to the potential for falsely elevated results. Performed By: #### H FP, BMP, MORPH, CBC, DIFF, GFR ####[facility] [place] [place] [address] Globulin 3.6 G/dL Normal 1.5-3.8 [facility] ([place]) Comment on above: Performed By: #### H FP, BMP, MORPH, CBC, DIFF, GFR ####[place] [id number] [address] [place] [address] Total Protein 5.7 G/dL Normal 5.7-8.2 [facility] ([place]) Comment on above: Result Comment: No te - New Reference Range in effect 20 Performed By: #### H FP, BMP, MORPH, CBC, DIFF, GFR ####[place] [id number] [address] [place] [address] LABORATORYOrdered By: Tracy Champion on 04-29-2024 Appearance (Body fld) Cloudy (04/29/24 1:44 PM) Normal AH Manual Heme SS Color (Body fld) Colorless (04/29/24 1:44 PM) Normal AH Manual Heme SS Comment (synovial) See Below 2 (04/29/24 1:44 PM) Normal AH Manual Heme SS Comment on above: Result Comment: Cell count is approximate due to debris and/or cell clumps seen. Fluid Nom (Body fld) Synovial fluid (04/29/24 1:44 PM) Normal AH Manual Heme SS WBC (Body fld) [#/Vol] 270 10*3/uL High 0 - 199 /mm3 AH Manual Heme SS LABORATORYOrdered By: Mary Lou Fontaine on 04-29-2024 Cells Counted Total (Unsp spec) [#] 100 1 Invalid Interpretation Code AH Manual Heme SS Lymphocytes/100 WBC (Body fld) 14 % Invalid Interpretation Code AH Manual Heme SS Monocytes+Macrophage s/100 WBC (Body fld) 10 % Invalid Interpretation Code AH Manual Heme SS Neutrophils/100 WBC (Body fld) 75 % High 0 - 24 % AH Manual Heme SS Synovial Lining Cell (synovial) 1 % Invalid Interpretation Code AH Manual Heme SS LABORATORYOrdered By: MICHAEL SKINNER on 04-29-2024 CRYPF Path Review Negative Invalid Interpretation Code AH Path Review Subsection LABORATORYOrdered By: SYSTEM SYSTEM on 04-29-2024 Albumin BCP dye [Mass/Vol] 2.1 G/dL Low 3.2 - 4.8 G/dL ADM SS Albumin/Globulin [Mass ratio] 0.6 {ratio} Low 0.9 - 1.6 ratio ADM SS ALP [Catalytic activity/Vol] 276 U/L High 38 - 126 U/L ADM SS ALT No additional P-5'-P [Catalytic activity/Vol] 110 U/L High 10 - 49 U/L ADM SS Anisocytosis Ql (Bld) 1+ *NA* (04/29/24 5:25 AM) Invalid Interpretation Code Workflow SS AST [Catalytic activity/Vol] 74 U/L High 8 - 34 U/L ADM SS Band form neutrophils/100 WBC (Bld) 2.0 % Normal 0.0 - 5.0 % Workflow SS Basophils (Bld) [#/Vol] 0.0 103/mcL Normal 0.0 - 0.3 10^3/mcL Workflow SS Basophils/100 WBC (Bld) 0.0 % Normal 0.0 - 2.5 % Workflow SS Bili Indirect 0.2 mg/dL Normal 0.1 - 10.0 mg/dL Chemistry S Bilirubin [Mass/Vol] 0.40 mg/dL Normal 0.20 - 1.20 mg/dL ADM SS Comment on above: Interpretive Data: U se of this assay is not recommended for patients undergoing treatment with eltrombopag due to the potential for falsely elevated results. Bilirubin.conjugated [Mass/Vol] 0.2 mg/dL Normal 0.0 - 0.4 mg/dL ADM SS Comment on above: Interpretive Data: U se of this assay is not recommended for patients undergoing treatment with eltrombopag due to the potential for falsely elevated results. Calcium [Mass/Vol] 8.3 mg/dL Low 8.7 - 10. 4 mg/dL ADM SS Chloride [Moles/Vol] 108 mmol/L Normal 98 - 11 0 mEq/L ADM SS CO2 [Moles/Vol] 27 mmol/L Normal 22 - 32 mEq/L ADM SS Creatinine [Mass/Vol] 0.86 mg/dL Normal 0.50 - 1.20 mg/dL AH ADM SS Electrolyte Balance 6.0 mEq/L Normal 4.0 - 15 .0 mEq/L AH ADM SS Eosinophils (Bld) [#/Vol] 0.3 103/mcL Normal 0.0 - 0.7 10^3/mcL AH Workflow SS Eosinophils/100 WBC (Bld) 2.0 % Normal 0.0 - 6.0 % AH Workflow SS Erythrocyte distribution width (RBC) [Ratio] 17.3 % High 11.5 - 15.5 % AH Workflow SS GFR/1.73 sq M.predicted among blacks MDRD (S/P/Bld) [Vol rate/Area] ml/min/1.73sqm Invalid Interpretation Code Faveous Chemistry S Comment on above: Interpretive Data: GFR Population mean for , Non- Americans Ages 20-29 = 116 mL/min/1.73 sq.m. Ages 30-39 = 107 mL/min/1.73 sq.m. Ages 40-49 = 99 mL/min/1.73 sq.m. Ages 50-59 = 93 mL/min/1.73 sq.m. Ages 60-69 = 85 mL/min/1.73 sq.m. Ages 70+ = 75 mL/min/1.73 sq.m. Chronic Kidney Disease: Less than 60 mL/min/1.73 square meters End Stage Renal Disease: Less than 15 mL/min/1.73 square meters GFR/1.73 sq M.predicted among non-blacks MDRD (S/P/Bld) [Vol rate/Area] ml/min/1.73sqm Invalid Interpretation Code Faveous Chemistry S Comment on above: Interpretive Data: GFR Population mean for , Non- Americans Ages 20-29 = 116 mL/min/1.73 sq.m. Ages 30-39 = 107 mL/min/1.73 sq.m. Ages 40-49 = 99 mL/min/1.73 sq.m. Ages 50-59 = 93 mL/min/1.73 sq.m. Ages 60-69 = 85 mL/min/1.73 sq.m. Ages 70+ = 75 mL/min/1.73 sq.m. Chronic Kidney Disease: Less than 60 mL/min/1.73 square meters End Stage Renal Disease: Less than 15 mL/min/1.73 square meters Globulin 3.6 G/dL Normal 1.5 - 3.8 G/dL AH ADM SS Glucose [Mass/Vol] 92 mg/dL Normal 82 - 115 mg/dL AH ADM SS Hematocrit (Bld) [Volume fraction] 30.6 % Low 34.0 - 46.0 % AH Workflow SS Hemoglobin (Bld) [Mass/Vol] 10.2 G/dL Low 12.0 - 16.0 G/dL AH Workflow SS Large Platelets Few *NA* (04/29/24 5:25 AM) Invalid Interpretation Code AH Workflow SS Lymphocytes (Bld) [#/Vol] 0.9 103/mcL Normal 0.9 - 4.3 10^3/mcL AH Workflow SS Lymphocytes/100 WBC (Bld) 5.0 % Low 20.0 - 40.0 % AH Workflow SS MCH (RBC) [Entitic mass] 31.5 pg Normal 27.0 - 33.0 pg AH Workflow SS MCHC 33.3 G/dL Normal 32.0 - 36.0 G/dL AH Workflow SS MCV (RBC) [Entitic vol] 94.7 fL Normal 80.0 - 99.0 fL AH Workflow SS Monocytes (Bld) [#/Vol] 0.7 103/mcL Normal 0.1 - 1.4 10^3/mcL AH Workflow SS Monocytes/100 WBC (Bld) 4.0 % Normal 2.0 - 13.0 % AH Workflow SS Myelocytes/100 WBC (Bld) 1.0 % Invalid Interpretation Code AH Workflow SS Neutrophils (Bld) [#/Vol] 15.5 103/mcL High 2.3 - 8.1 10^3/mcL AH Workflow SS Neutrophils/100 WBC (Bld) 86.0 % High 50.0 - 75.0 % AH Workflow SS Nucleated RBC 0.0 /100 WBC Invalid Interpretation Code AH Workflow SS Ovalocytes LM Ql (Bld) 1+ *NA* (04/29/24 5:25 AM) Invalid Interpretation Code AH Workflow SS Platelet mean volume (Bld) [Entitic vol] 9.0 fL Normal 6.6 - 10.5 fL AH Workflow SS Platelets (Bld) [#/Vol] 337 103/mcL Normal 150 - 450 10^3/mcL AH Workflow SS Platelets LM Ql (Bld) Normal *NA* (04/29/24 5:25 AM) Invalid Interpretation Code AH Workflow SS Poikilocytosis LM Ql (Bld) 1+ *NA* (04/29/24 5:25 AM) Invalid Interpretation Code AH Workflow SS Polychromasia LM Ql (Bld) 1+ *NA* (04/29/24 5:25 AM) Invalid Interpretation Code AH Workflow SS Potassium [Moles/Vol] 3.5 mmol/L Normal 3.5 - 5.0 mEq/L AH ADM SS Protein [Mass/Vol] 5.7 G/dL Normal 5.7 - 8.2 G/dL AH ADM SS Comment on above: Interpretive Data: * *Note - New Reference Range in effect 20 RBC (Bld) [#/Vol] 3.23 106/mcL Low 4.10 - 5.3 0 10^6/mcL AH Workflow SS Sodium [Moles/Vol] 141 mmol/L Normal 136 - 145 mEq/L AH ADM SS Tear Cell 1+ *NA* (04/29/24 5:25 AM) Invalid Interpretation Code AH Workflow SS Toxic Gran 1+ *NA* (04/29/24 5:25 AM) Invalid Interpretation Code AH Workflow SS Urea nitrogen [Mass/Vol] 9.0 mg/dL Normal 8.0 - 22.0 mg/dL AH ADM SS Urea nitrogen/Creatinine [Mass ratio] 10.5 ratio Normal 10.0 - 22.0 ratio AH ADM SS WBC (Bld) [#/Vol] 17.7 103/mcL High 4.5 - 10.8 10^3/mcL AH Workflow SS No Panel Informationon 04-29 Culture Body Fluid No growth to date [facility] GS Unsedimented No organisms seen. [facility] SYNCTon 04-29-2024 Cells Counted (synovial) 100 Normal [facility] ([place]) Comment on above: Order Comment: Left hip synovial fluid IR aspiration Performed By: #### C MANUEL CRYBF, SYNCT ####[facility] [place] [place] [address] Lymphocytes/100 WBC (Bld) 14 % Normal [facility] ([place]) Comment on above: Order Comment: Left hip synovial fluid IR aspiration Performed By: #### C MANUEL, CRYBF, SYNCT ####[address] [address] Mononuclear Cell % (synovial) 10 % Normal [facility] ([place]) Comment on above: Order Comment: Left hip synovial fluid IR aspiration Performed By: #### C RYBFPR, CRYBF, SYNCT ####[address] [address] Neutrophils/100 WBC (Bld) 75 % High 0-24 [facility] ([place]) Comment on above: Order Comment: Left hip synovial fluid IR aspiration Performed By: #### C RYBFPR, CRYBF, SYNCT ####[address] [address] Synovial Lining Cell (synovial) 1 % Normal [facility] ([place]) Comment on above: Order Comment: Left hip synovial fluid IR aspiration Performed By: #### C RYBFPR, CRYBF, SYNCT ####[address] [address] Clarity (U) Cloudy Normal [facility] ([place]) Comment on above: Order Comment: Left hip synovial fluid IR aspiration Performed By: #### C RYBFPR, CRYBF, SYNCT ####[address] [address] Color (U) Colorless Normal [facility] ([place]) Comment on above: Order Comment: Left hip synovial fluid IR aspiration Performed By: #### C RYBFPR, CRYBF, SYNCT ####[address] [address] Comment (synovial) See Below Normal [facility] ([place]) Comment on above: Order Comment: Left hip synovial fluid IR aspiration Result Comment: Cell count is approximate due to debris and/or cell clumps seen. Performed By: #### C RYBFPR, CRYBF, SYNCT ####[address] [address] White Blood Cells (synovial) 270 /mm3 High 0-199 [facility] ([place]) Comment on above: Order Comment: Left hip synovial fluid IR aspiration Performed By: #### C RYBFPR, CRYBF, SYNCT ####[address] [address] .GFRon 04-28-2024 GFR >60 Normal [facility] ([place]) Comment on above: Result Comment: GFR Population mean for , Non- Americans Ages 20-29 = 116 mL/min/1.73 sq.m. Ages 30-39 = 107 mL/min/1.73 sq.m. Ages 40-49 = 99 mL/min/1.73 sq.m. Ages 50-59 = 93 mL/min/1.73 sq.m. Ages 60-69 = 85 mL/min/1.73 sq.m. Ages 70+ = 75 mL/min/1.73 sq.m. Chronic Kidney Disease: Less than 60 mL/min/1.73 square meters End Stage Renal Disease: Less than 15 mL/min/1.73 square meters Performed By: #### B MP, DIFF, CBC, GFR, MORPH ####[address] [address] GFR Non- 60 ml/min/1.73sqm Normal [facility] ([place]) Comment on above: Result Comment: GFR Population mean for , Non- Americans Ages 20-29 = 116 mL/min/1.73 sq.m. Ages 30-39 = 107 mL/min/1.73 sq.m. Ages 40-49 = 99 mL/min/1.73 sq.m. Ages 50-59 = 93 mL/min/1.73 sq.m. Ages 60-69 = 85 mL/min/1.73 sq.m. Ages 70+ = 75 mL/min/1.73 sq.m. Chronic Kidney Disease: Less than 60 mL/min/1.73 square meters End Stage Renal Disease: Less than 15 mL/min/1.73 square meters Performed By: #### B MP, DIFF, CBC, GFR, MORPH ####[address] [address] .Manual Diffon 04-28-2024 Basophil %, Manual 0.0 % Normal 0.0-2.5 [facility] ([place]) Comment on above: Performed By: #### B MP, DIFF, CBC, GFR, MORPH ####[address] [address] Basophil, Abs Manual 0.0 10 3/mcL Normal 0.0-0.3 [facility] ([place]) Comment on above: Performed By: #### B MP, DIFF, CBC, GFR, MORPH ####[address] [address] Eosinophil %, Manual 1.0 % Normal 0.0-6.0 [facility] ([place]) Comment on above: Performed By: #### B MP, DIFF, CBC, GFR, MORPH ####[address] [address] Eosinophil, Abs Manual 0.2 10 3/mcL Normal 0.0-0.7 [facility] ([place]) Comment on above: Performed By: #### B MP, DIFF, CBC, GFR, MORPH ####[address] [address] Lymphocyte %, Manual 8.0 % Low 20.0-40.0 [facility] ([place] Comment on above: Performed By: #### B MP, DIFF, CBC, GFR, MORPH ####[address] [address] Lymphocyte, Abs Manual 1.5 10 3/mcL Normal 0.9-4.3 [facility] ([place]) Comment on above: Performed By: #### B MP, DIFF, CBC, GFR, MORPH ####[address] [address] Monocyte %, Manual 4.0 % Normal 2.0-13.0 [facility] ([place] Comment on above: Performed By: #### B MP, DIFF, CBC, GFR, MORPH ####[address] [address] Monocyte, Abs Manual 0.8 10 3/mcL Normal 0.1-1.4 [facility] ([place]) Comment on above: Performed By: #### B MP, DIFF, CBC, GFR, MORPH ####[address] [address] Myelocyte 2.0 % Normal [facility] ([place] Comment on above: Performed By: #### B MP, DIFF, CBC, GFR, MORPH ####[place] [address] Neutrophil %, Manual 85.0 % High 50.0-75.0 [facility] ([place] Comment on above: Performed By: #### B MP, DIFF, CBC, GFR, MORPH ####[place] [address] Neutrophil, Abs Manual 16.4 10 3/mcL High 2.3-8.1 [facility] ([place]) Comment on above: Performed By: #### B MP, DIFF, CBC, GFR, MORPH ####[place] [address] Nucleated RBC 1.0 /100 WBC Normal [facility] ([place]) Comment on above: Performed By: #### B MP, DIFF, CBC, GFR, MORPH ####[place] [address] .[place] 04-28-2024 Anisocytosis Ql (Bld) 1+ Normal [facility] ([place] Comment on above: Performed By: #### B MP, DIFF, CBC, GFR, MORPH ####[place] [address] Hypochrom 1+ Normal [facility] ([place] Comment on above: Performed By: #### B MP, DIFF, CBC, GFR, MORPH ####[place] [address] Ovalocytes 1+ Normal [facility] ([place] Comment on above: Performed By: #### B MP, DIFF, CBC, GFR, MORPH ####[place] [address] Platelet Estimate Normal Normal [facility] ([place] Comment on above: Performed By: #### B MP, DIFF, CBC, GFR, MORPH ####[place] [address] Poik 1+ Normal [facility] ([place] Comment on above: Performed By: #### B MP, DIFF, CBC, GFR, MORPH ####[place] [address] Polychrom 1+ Normal [facility] ([place] Comment on above: Performed By: #### B MP, DIFF, CBC, GFR, MORPH ####[place] [address] BMPon 04-28-2024 BUN/Creatinine Ratio 10.8 ratio Normal 10.0-22.0 [facility] ([place] Comment on above: Performed By: #### B MP, DIFF, CBC, GFR, MORPH ####[place] [address] Calcium [Mass/Vol] 8.2 mg/dL Low 8.7-10.4 [facility] ([place] Comment on above: Performed By: #### B MP, DIFF, CBC, GFR, MORPH ####[place] [address] Chloride [[place]oles/Vol] 109 mmol/L Normal 98-110 [facility] ([place] Comment on above: Performed By: #### B MP, DIFF, CBC, GFR, MORPH ####[place] [address] CO2 [Moles/Vol] 24 mmol/L Normal 22-32 [facility] ([place] Comment on above: Performed By: #### B MP, DIFF, CBC, GFR, MORPH ####[place] [address] Creatinine [Mass/Vol] 0.93 mg/dL Normal 0.50-1.20 [facility] ([place] Comment on above: Performed By: #### B MP, DIFF, CBC, GFR, MORPH ####[place] [address] Electrolyte Balance 8.0 mEq/L Normal 4.0-15.0 [facility] ([place] Comment on above: Performed By: #### B MP, DIFF, CBC, GFR, MORPH ####[place] [address] Glucose [Mass/Vol] 75 mg/dL Low 82-115 [facility] ([place] Comment on above: Performed By: #### B MP, DIFF, CBC, GFR, MORPH ####[address] [address] Potassium [Moles/Vol] 3.6 mmol/L Normal 3.5-5.0 [facility] ([place] Comment on above: Performed By: #### B MP, DIFF, CBC, GFR, MORPH ####[address] [address] Sodium [Moles/Vol] 141 mmol/L Normal 136-145 [facility] ([place] Comment on above: Performed By: #### B MP, DIFF, CBC, GFR, MORPH ####[place] [address] Urea nitrogen [Mass/Vol] 10.0 mg/dL Normal 8.0-22.0 [facility] ([place] Comment on above: Performed By: #### B MP, DIFF, CBC, GFR, MORPH ####[place] [address] CBCon 04-28-2024 Erythrocyte distribution width (RBC) [Ratio] 17.6 % High 11.5-15.5 [facility] ([place] Comment on above: Performed By: #### B MP, DIFF, CBC, GFR, MORPH ####[place] [address] Hematocrit (Bld) [Volume fraction] 27.2 % Low 34.0-46.0 [facility] ([place] Comment on above: Performed By: #### B MP, DIFF, CBC, GFR, MORPH ####[place] [address] Hgb 9.2 G/dL Low 12.0-16.0 [facility] ([place] Comment on above: Performed By: #### B MP, DIFF, CBC, GFR, MORPH ####[place] [address] MCH (RBC) [Entitic mass] 32.2 pg Normal 27.0-33.0 [facility] ([place] Comment on above: Performed By: #### B MP, DIFF, CBC, GFR, MORPH ####[place] [address] MCHC 33.9 G/dL Normal 32.0-36.0 [facility] ([place] Comment on above: Performed By: #### B MP, DIFF, CBC, GFR, MORPH ####[place] [address] MCV (RBC) [Entitic vol] 94.9 fL Normal 80.0-99.0 [facility] ([place] Comment on above: Performed By: #### B MP, DIFF, CBC, GFR, MORPH ####[place] [address] Platelet 318 10 3/mcL Normal 150-450 [facility] ([place]) Comment on above: Performed By: #### B MP, DIFF, CBC, GFR, MORPH ####[place] [address] Platelet mean volume (Bld) [Entitic vol] 9.4 fL Normal 6.6-10.5 [facility] ([place] Comment on above: Performed By: #### B MP, DIFF, CBC, GFR, MORPH ####[place] [address] RBC 2.86 10 6/mcL Low 4.10-5.30 [facility] ([place]) Comment on above: Performed By: #### B MP, DIFF, CBC, GFR, MORPH ####[place] [address] WBC 19.4 10 3/mcL High 4.5-10.8 [facility] ([place] Comment on above: Performed By: #### B MP, DIFF, CBC, GFR, MORPH ####[place] [address] LABORATORYOrdered By: SYSTEM SYSTEM on 04-28-2024 Anisocytosis Ql (Bld) 1+ *NA* (04/28/24 5:03 AM) Invalid Interpretation Code AH Workflow SS Basophils (Bld) [#/Vol] 0.0 103/mcL Normal 0.0 - 0.3 10^3/mcL AH Workflow SS Basophils/100 WBC (Bld) 0.0 % Normal 0.0 - 2.5 % AH Workflow SS Calcium [Mass/Vol] 8.2 mg/dL Low 8.7 - 10. 4 mg/dL ADM SS Chloride [Moles/Vol] 109 mmol/L Normal 98 - 11 0 mEq/L ADM SS CO2 [Moles/Vol] 24 mmol/L Normal 22 - 32 mEq/L ADM SS Creatinine [Mass/Vol] 0.93 mg/dL Normal 0.50 - 1.20 mg/dL ADM SS Electrolyte Balance 8.0 mEq/L Normal 4.0 - 15 .0 mEq/L ADM SS Eosinophils (Bld) [#/Vol] 0.2 103/mcL Normal 0.0 - 0.7 10^3/mcL Workflow SS Eosinophils/100 WBC (Bld) 1.0 % Normal 0.0 - 6.0 % Workflow SS Erythrocyte distribution width (RBC) [Ratio] 17.6 % High 11.5 - 15.5 % Workflow SS GFR/1.73 sq M.predicted among blacks MDRD (S/P/Bld) [Vol rate/Area] ml/min/1.73sqm Invalid Interpretation Code [facility] Chemistry S Comment on above: Interpretive Data: GFR Population mean for , Non- Americans Ages 20-29 = 116 mL/min/1.73 sq.m. Ages 30-39 = 107 mL/min/1.73 sq.m. Ages 40-49 = 99 mL/min/1.73 sq.m. Ages 50-59 = 93 mL/min/1.73 sq.m. Ages 60-69 = 85 mL/min/1.73 sq.m. Ages 70+ = 75 mL/min/1.73 sq.m. Chronic Kidney Disease: Less than 60 mL/min/1.73 square meters End Stage Renal Disease: Less than 15 mL/min/1.73 square meters GFR/1.73 sq M.predicted among non-blacks MDRD (S/P/Bld) [Vol rate/Area] 60 ml/min/1.73sqm Invalid Interpretation Code [facility] Chemistry S Comment on above: Interpretive Data: GFR Population mean for , Non- Americans Ages 20-29 = 116 mL/min/1.73 sq.m. Ages 30-39 = 107 mL/min/1.73 sq.m. Ages 40-49 = 99 mL/min/1.73 sq.m. Ages 50-59 = 93 mL/min/1.73 sq.m. Ages 60-69 = 85 mL/min/1.73 sq.m. Ages 70+ = 75 mL/min/1.73 sq.m. Chronic Kidney Disease: Less than 60 mL/min/1.73 square meters End Stage Renal Disease: Less than 15 mL/min/1.73 square meters Glucose [Mass/Vol] 75 mg/dL Low 82 - 115 mg/dL AH ADM SS Hematocrit (Bld) [Volume fraction] 27.2 % Low 34.0 - 46.0 % AH Workflow SS Hemoglobin (Bld) [Mass/Vol] 9.2 G/dL Low 12.0 - 16.0 G/dL AH Workflow SS Hypochromia Ql (Bld) 1+ *NA* (04/28/24 5:03 AM) Invalid Interpretation Code Workflow SS Lymphocytes (Bld) [#/Vol] 1.5 103/mcL Normal 0.9 - 4.3 10^3/mcL AH Workflow SS Lymphocytes/100 WBC (Bld) 8.0 % Low 20.0 - 40.0 % AH Workflow SS MCH (RBC) [Entitic mass] 32.2 pg Normal 27.0 - 33.0 pg AH Workflow SS MCHC 33.9 G/dL Normal 32.0 - 36.0 G/dL AH Workflow SS MCV (RBC) [Entitic vol] 94.9 fL Normal 80.0 - 99.0 fL AH Workflow SS Monocytes (Bld) [#/Vol] 0.8 103/mcL Normal 0.1 - 1.4 10^3/mcL AH Workflow SS Monocytes/100 WBC (Bld) 4.0 % Normal 2.0 - 13.0 % AH Workflow SS Myelocytes/100 WBC (Bld) 2.0 % Invalid Interpretation Code Workflow SS Neutrophils (Bld) [#/Vol] 16.4 103/mcL High 2.3 - 8.1 10^3/mcL AH Workflow SS Neutrophils/100 WBC (Bld) 85.0 % High 50.0 - 75.0 % AH Workflow SS Nucleated RBC 1.0 /100 WBC Invalid Interpretation Code Workflow SS Ovalocytes LM Ql (Bld) 1+ *NA* (04/28/24 5:03 AM) Invalid Interpretation Code AH Workflow SS Platelet mean volume (Bld) [Entitic vol] 9.4 fL Normal 6.6 - 10.5 fL AH Workflow SS Platelets (Bld) [#/Vol] 318 103/mcL Normal 150 - 450 10^3/mcL AH Workflow SS Platelets LM Ql (Bld) Normal *NA* (04/28/24 5:03 AM) Invalid Interpretation Code AH Workflow SS Poikilocytosis LM Ql (Bld) 1+ *NA* (04/28/24 5:03 AM) Invalid Interpretation Code AH Workflow SS Polychromasia LM Ql (Bld) 1+ *NA* (04/28/24 5:03 AM) Invalid Interpretation Code AH Workflow SS Potassium [Moles/Vol] 3.6 mmol/L Normal 3.5 - 5.0 mEq/L AH ADM SS RBC (Bld) [#/Vol] 2.86 106/mcL Low 4.10 - 5.3 0 10^6/mcL AH Workflow SS Sodium [Moles/Vol] 141 mmol/L Normal 136 - 145 mEq/L AH ADM SS Urea nitrogen [Mass/Vol] 10.0 mg/dL Normal 8.0 - 22.0 mg/dL AH ADM SS Urea nitrogen/Creatinine [Mass ratio] 10.8 ratio Normal 10.0 - 22.0 ratio AH ADM SS WBC (Bld) [#/Vol] 19.4 103/mcL High 4.5 - 10.8 10^3/mcL AH Workflow SS .GFRon 04-27-2024 GFR Non- 57 ml/min/1.73sqm Normal [facility] ([place]) Comment on above: Result Comment: GFR Population mean for , Non- Americans Ages 20-29 = 116 mL/min/1.73 sq.m. Ages 30-39 = 107 mL/min/1.73 sq.m. Ages 40-49 = 99 mL/min/1.73 sq.m. Ages 50-59 = 93 mL/min/1.73 sq.m. Ages 60-69 = 85 mL/min/1.73 sq.m. Ages 70+ = 75 mL/min/1.73 sq.m. Chronic Kidney Disease: Less than 60 mL/min/1.73 square meters End Stage Renal Disease: Less than 15 mL/min/1.73 square meters Performed By: #### C ORT, GFR, TSHR, MORPH, BMP, CBC, DIFF ####[address] [address] GFR >60 Normal [facility] ([place]) Comment on above: Result Comment: GFR Population mean for , Non- Americans Ages 20-29 = 116 mL/min/1.73 sq.m. Ages 30-39 = 107 mL/min/1.73 sq.m. Ages 40-49 = 99 mL/min/1.73 sq.m. Ages 50-59 = 93 mL/min/1.73 sq.m. Ages 60-69 = 85 mL/min/1.73 sq.m. Ages 70+ = 75 mL/min/1.73 sq.m. Chronic Kidney Disease: Less than 60 mL/min/1.73 square meters End Stage Renal Disease: Less than 15 mL/min/1.73 square meters Performed By: #### C ORT, GFR, TSHR, MORPH, BMP, CBC, DIFF ####[place] [address] .Manual Diffon 04-27-2024 Bands 1.0 % Normal 0.0-5.0 [facility] ([place]) Comment on above: Performed By: #### C ORT, GFR, TSHR, MORPH, BMP, CBC, DIFF ####[place] [address] Basophil %, Manual 0.0 % Normal 0.0-2.5 [facility] ([place]) Comment on above: Performed By: #### C ORT, GFR, TSHR, MORPH, BMP, CBC, DIFF ####[place] [id number] Basophil, Abs Manual 0.0 10 3/mcL Normal 0.0-0.3 [facility] ([place]) Comment on above: Performed By: #### C ORT, GFR, TSHR, MORPH, BMP, CBC, DIFF ####[place] [address] Eosinophil %, Manual 2.0 % Normal 0.0-6.0 [facility] ([place]) Comment on above: Performed By: #### C ORT, GFR, TSHR, MORPH, BMP, CBC, DIFF ####[address] [address] Eosinophil, Abs Manual 0.4 10 3/mcL Normal 0.0-0.7 [facility] ([place]) Comment on above: Performed By: #### C ORT, GFR, TSHR, MORPH, BMP, CBC, DIFF ####[place] [id number] Lymphocyte %, Manual 4.0 % Low 20.0-40.0 [facility] ([place]) Comment on above: Performed By: #### C ORT, GFR, TSHR, MORPH, BMP, CBC, DIFF ####[address] [address] Lymphocyte, Abs Manual 0.9 10 3/mcL Normal 0.9-4.3 [facility] ([place]) Comment on above: Performed By: #### C ORT, GFR, TSHR, MORPH, BMP, CBC, DIFF ####[place] [address] Metamyelocyte 1.0 % Normal [facility] ([place]) Comment on above: Performed By: #### C ORT, GFR, TSHR, MORPH, BMP, CBC, DIFF ####[place] [address] Monocyte %, Manual 2.0 % Normal 2.0-13.0 [facility] ([place]) Comment on above: Performed By: #### C ORT, GFR, TSHR, MORPH, BMP, CBC, DIFF ####[address] [address] Monocyte, Abs Manual 0.5 10 3/mcL Normal 0.1-1.4 [facility] ([place]) Comment on above: Performed By: #### C ORT, GFR, TSHR, MORPH, BMP, CBC, DIFF ####[address] [address] Neutrophil %, Manual 90.0 % High 50.0-75.0 [facility] ([place]) Comment on above: Performed By: #### C ORT, GFR, TSHR, MORPH, BMP, CBC, DIFF ####[place] [address] Neutrophil, Abs Manual 20.2 10 3/mcL High 2.3-8.1 [facility] ([place]) Comment on above: Performed By: #### C ORT, GFR, TSHR, MORPH, BMP, CBC, DIFF ####[place] [address] Nucleated RBC 0.0 /100 WBC Normal [facility] ([place]) Comment on above: Performed By: #### C ORT, GFR, TSHR, MORPH, BMP, CBC, DIFF ####[place] [address] .Morphon 04-27-2024 Anisocytosis Ql (Bld) 1+ Normal [facility] ([place]) Comment on above: Performed By: #### C ORT, GFR, TSHR, MORPH, BMP, CBC, DIFF ####[place] [address] Ovalocytes 1+ Normal [facility] ([place]) Comment on above: Performed By: #### C ORT, GFR, TSHR, MORPH, BMP, CBC, DIFF ####[place] [address] Platelet Estimate Normal Normal [facility] ([place]) Comment on above: Performed By: #### C ORT, GFR, TSHR, MORPH, BMP, CBC, DIFF ####[place] [address] Poik 1+ Normal [facility] ([place]) Comment on above: Performed By: #### C ORT, GFR, TSHR, MORPH, BMP, CBC, DIFF ####[place] [address] BMPon 04-27-2024 BUN/Creatinine Ratio 13.5 ratio Normal 10.0-22.0 [facility] ([place]) Comment on above: Performed By: #### C ORT, GFR, TSHR, MORPH, BMP, CBC, DIFF ####[place] [address] Calcium [Mass/Vol] 8.0 mg/dL Low 8.7-10.4 [facility] ([place]) Comment on above: Performed By: #### C ORT, GFR, TSHR, MORPH, BMP, CBC, DIFF ####[address] [address] Chloride [Moles/Vol] 109 mmol/L Normal 98-110 [facility] ([place]) Comment on above: Performed By: #### C ORT, GFR, TSHR, MORPH, BMP, CBC, DIFF ####[address] [address] CO2 [Moles/Vol] 24 mmol/L Normal 22-32 [facility] ([place]) Comment on above: Performed By: #### C ORT, GFR, TSHR, MORPH, BMP, CBC, DIFF ####[address] [address] Creatinine [Mass/Vol] 0.96 mg/dL Normal 0.50-1.20 [facility] ([place]) Comment on above: Performed By: #### C ORT, GFR, TSHR, MORPH, BMP, CBC, DIFF ####[address] [address] Electrolyte Balance 5.0 mEq/L Normal 4.0-15.0 [facility] ([place]) Comment on above: Performed By: #### C ORT, GFR, TSHR, MORPH, BMP, CBC, DIFF ####[address] [address] Glucose [Mass/Vol] 81 mg/dL Low 82-115 [facility] ([place]) Comment on above: Performed By: #### C ORT, GFR, TSHR, MORPH, BMP, CBC, DIFF ####[address] [address] Potassium [Moles/Vol] 3.6 mmol/L Normal 3.5-5.0 [facility] ([place]) Comment on above: Performed By: #### C ORT, GFR, TSHR, MORPH, BMP, CBC, DIFF ####[address] [address] Sodium [Moles/Vol] 138 mmol/L Normal 136-145 [facility] ([place]) Comment on above: Performed By: #### C ORT, GFR, TSHR, MORPH, BMP, CBC, DIFF ####[place] [address] Urea nitrogen [Mass/Vol] 13.0 mg/dL Normal 8.0-22.0 [facility] ([place]) Comment on above: Performed By: #### C ORT, GFR, TSHR, MORPH, BMP, CBC, DIFF ####[place] [address] CBCon 04-27-2024 Erythrocyte distribution width (RBC) [Ratio] 17.7 % High 11.5-15.5 [facility] ([place]) Comment on above: Performed By: #### C ORT, GFR, TSHR, MORPH, BMP, CBC, DIFF ####[place] [address] Hematocrit (Bld) [Volume fraction] 25.1 % Low 34.0-46.0 [facility] ([place]) Comment on above: Performed By: #### C ORT, GFR, TSHR, MORPH, BMP, CBC, DIFF ####[place] [address] Hgb 8.3 G/dL Low 12.0-16.0 [facility] ([place]) Comment on above: Performed By: #### C ORT, GFR, TSHR, MORPH, BMP, CBC, DIFF ####[place] [address] MCH (RBC) [Entitic mass] 31.4 pg Normal 27.0-33.0 [facility] ([place]) Comment on above: Performed By: #### C ORT, GFR, TSHR, MORPH, BMP, CBC, DIFF ####[place] [address] MCHC 33.3 G/dL Normal 32.0-36.0 [facility] ([place]) Comment on above: Performed By: #### C ORT, GFR, TSHR, MORPH, BMP, CBC, DIFF ####[place] [address] MCV (RBC) [Entitic vol] 94.4 fL Normal 80.0-99.0 [facility] ([place]) Comment on above: Performed By: #### C ORT, GFR, TSHR, MORPH, BMP, CBC, DIFF ####[place] [address] Platelet 298 10 3/mcL Normal 150-450 [facility] ([place]) Comment on above: Performed By: #### C ORT, GFR, TSHR, MORPH, BMP, CBC, DIFF ####[place] [address] Platelet mean volume (Bld) [Entitic vol] 9.7 fL Normal 6.6-10.5 [facility] ([place]) Comment on above: Performed By: #### C ORT, GFR, TSHR, MORPH, BMP, CBC, DIFF ####[place] [address] RBC 2.66 10 6/mcL Low 4.10-5.30 [facility] ([place]) Comment on above: Performed By: #### C ORT, GFR, TSHR, MORPH, BMP, CBC, DIFF ####[place] [address] WBC 22.3 10 3/mcL High 4.5-10.8 [facility] ([place]) Comment on above: Performed By: #### C ORT, GFR, TSHR, MORPH, BMP, CBC, DIFF ####[place] [address] CORTon 04-27-2024 Cortisol Level 21.0 mcg/dL Normal [facility] ([place]) Comment on above: Result Comment: Jelani isol AM Reference Range 6.5-26.0 mcg/dL Cortisol PM Reference Range 3.5-15.0 mcg/dL Performed By: #### C ORT, GFR, TSHR, MORPH, BMP, CBC, DIFF ####[place] [address] CT ABDOMEN/PELVIS W/CONTRAST on 04-27-2024 CT ABDOMEN/PELVIS W/CONTRAST ORIGINAL EXAMINATION: CT OF THE ABDOMEN AND PELVIS WITH CONTRAST 04/27/2024 8:12 pm TECHNIQUE: CT of the abdomen and pelvis was performed with the administration of intravenous contrast. Multiplanar reformatted images are provided for review. Automated exposure control, iterative reconstruction, and/or weight based adjustment of the mA/kV was utilized to reduce the radiation dose to as low as reasonably achievable. COMPARISON: CTA chest 12/23/2019. Bilateral renal ultrasounds 04/26/2024. HISTORY: ORDERING SYSTEM PROVIDED HISTORY: Reason for Exam: PT STATES ABD PAIN, N/V pyelonephritis, renal mass? FINDINGS: Small bilateral pleural effusions with adjacent atelectasis. The liver is within normal limits for size. No abnormal enhancement. Intra and extrahepatic bile duct dilation is appreciated, similar in appearance to the study from 12/23/2019. Status post cholecystectomy. The spleen, pancreas and adrenal glands are unremarkable. Redemonstration of multiple exophytic cysts arising from the bilateral kidneys. The previously described rounded midpole renal lesion visualized on prior CT demonstrates intermediate fluid density without appreciable septation or soft tissue component. No hydroureteronephrosis or nephroureterolithiasis is identified bilaterally. No significant perinephric stranding. Symmetric parenchymal enhancement. The urinary bladder is incompletely distended. Status post hysterectomy. The stomach is largely decompressed. Bowel gas is noted to the level of the rectum in nonobstructive pattern. Status post appendectomy. No dilated loops of small large bowel are identified. Contrast material is appreciated throughout the bowel. Diverticulosis without acute inflammation. No free air. Trace free fluid and perihepatic ascites. No abdominal or pelvic adenopathy. Extensive calcified atherosclerotic plaque without aneurysm. Vascular structures otherwise unremarkable. Synovial enhancement and effusion is appreciated at the left hip joint. IMPRESSION: 1. Intermediate fluid density cyst within the right renal midpole favored to represent a complex cyst however evaluation is limited on this single phase study. No appreciable soft tissue component. No evidence of pyelonephritis. 2. Left hip effusion with synovial enhancement. Cannot exclude septic arthritis. Consider fluid sampling. 3. Small bilateral pleural effusions with adjacent atelectasis. 4. Trace ascites. 5. Stable intra and extrahepatic bile duct dilation. 6. Sigmoid diverticulosis. Interpreted by: Luis Crump Preliminary Report By: Luis Crump Electronically signed By Luis Crump Dictated Date: 04/27/2024 8:25:55 PM Prelim Date: 04/27/2024 8:45:58 PM Sign Date: 04/27/2024 8:45:58 PM Ordering Provider: AGUILAR Francisco [facility] ([place]) LABORATORYOrdered By: SYSTEM SYSTEM on 04-27-2024 Anisocytosis Ql (Bld) 1+ *NA* (04/27/24 4:55 AM) Invalid Interpretation Code AH Workflow SS Band form neutrophils/100 WBC (Bld) 1.0 % Normal 0.0 - 5.0 % AH Workflow SS Basophils (Bld) [#/Vol] 0.0 103/mcL Normal 0.0 - 0.3 10^3/mcL AH Workflow SS Basophils/100 WBC (Bld) 0.0 % Normal 0.0 - 2.5 % AH Workflow SS Cortisol [Mass/Vol] 21.0 ug/dL Invalid Interpretation Code AH ADM SS Comment on above: Interpretive Data: C ortisol AM Reference Range 6.5-26.0 mcg/dL Cortisol PM Reference Range 3.5-15.0 mcg/dL Eosinophils (Bld) [#/Vol] 0.4 103/mcL Normal 0.0 - 0.7 10^3/mcL AH Workflow SS Eosinophils/100 WBC (Bld) 2.0 % Normal 0.0 - 6.0 % AH Workflow SS Lymphocytes (Bld) [#/Vol] 0.9 103/mcL Normal 0.9 - 4.3 10^3/mcL AH Workflow SS Lymphocytes/100 WBC (Bld) 4.0 % Low 20.0 - 40.0 % AH Workflow SS Metamyelocytes/100 WBC (Bld) 1.0 % Invalid Interpretation Code AH Workflow SS Monocytes (Bld) [#/Vol] 0.5 103/mcL Normal 0.1 - 1.4 10^3/mcL AH Workflow SS Monocytes/100 WBC (Bld) 2.0 % Normal 2.0 - 13.0 % AH Workflow SS Neutrophils (Bld) [#/Vol] 20.2 103/mcL High 2.3 - 8.1 10^3/mcL AH Workflow SS Neutrophils/100 WBC (Bld) 90.0 % High 50.0 - 75.0 % AH Workflow SS Nucleated RBC 0.0 /100 WBC Invalid Interpretation Code AH Workflow SS Ovalocytes LM Ql (Bld) 1+ *NA* (04/27/24 4:55 AM) Invalid Interpretation Code AH Workflow SS Platelets LM Ql (Bld) Normal *NA* (04/27/24 4:55 AM) Invalid Interpretation Code AH Workflow SS Poikilocytosis LM Ql (Bld) 1+ *NA* (04/27/24 4:55 AM) Invalid Interpretation Code AH Workflow SS TSH Qn 4.494 mIU/mL Normal 0.550 - 4.780 mIU/mL AH ADM SS Comment on above: Interpretive Data: * *Note - New Reference Range in effect 20 TSHRon 04-27-2024 TSH 4.494 mIU/mL Normal 0.550-4.780 [facility] ([place]) Comment on above: Result Comment: No te - New Reference Range in effect 20 Performed By: #### C ORT, GFR, TSHR, MORPH, BMP, CBC, DIFF ####[address] [address] .GFRon 04-26-2024 GFR Non- 51 ml/min/1.73sqm Normal [facility] ([place]) Comment on above: Result Comment: GFR Population mean for , Non- Americans Ages 20-29 = 116 mL/min/1.73 sq.m. Ages 30-39 = 107 mL/min/1.73 sq.m. Ages 40-49 = 99 mL/min/1.73 sq.m. Ages 50-59 = 93 mL/min/1.73 sq.m. Ages 60-69 = 85 mL/min/1.73 sq.m. Ages 70+ = 75 mL/min/1.73 sq.m. Chronic Kidney Disease: Less than 60 mL/min/1.73 square meters End Stage Renal Disease: Less than 15 mL/min/1.73 square meters Performed By: #### C BC, BMP, DIFF, GFR, MORPH ####[address] [address] GFR >60 Normal [facility] ([place]) Comment on above: Result Comment: GFR Population mean for , Non- Americans Ages 20-29 = 116 mL/min/1.73 sq.m. Ages 30-39 = 107 mL/min/1.73 sq.m. Ages 40-49 = 99 mL/min/1.73 sq.m. Ages 50-59 = 93 mL/min/1.73 sq.m. Ages 60-69 = 85 mL/min/1.73 sq.m. Ages 70+ = 75 mL/min/1.73 sq.m. Chronic Kidney Disease: Less than 60 mL/min/1.73 square meters End Stage Renal Disease: Less than 15 mL/min/1.73 square meters Performed By: #### C BC, BMP, DIFF, GFR, MORPH ####[place] [address] .Manual Diffon 04-26-2024 Bands 1.0 % Normal 0.0-5.0 [facility] ([place]) Comment on above: Performed By: #### C BC, BMP, DIFF, GFR, MORPH ####[place] [address] Basophil %, Manual 0.0 % Normal 0.0-2.5 [facility] ([place]) Comment on above: Performed By: #### C BC, BMP, DIFF, GFR, MORPH ####[place] [address] Basophil, Abs Manual 0.0 10 3/mcL Normal 0.0-0.3 [facility] ([place]) Comment on above: Performed By: #### C BC, BMP, DIFF, GFR, MORPH ####[place] [address] Eosinophil %, Manual 2.0 % Normal 0.0-6.0 [facility] ([place]) Comment on above: Performed By: #### C BC, BMP, DIFF, GFR, MORPH ####[place] [address] Eosinophil, Abs Manual 0.5 10 3/mcL Normal 0.0-0.7 [facility] ([place]) Comment on above: Performed By: #### C BC, BMP, DIFF, GFR, MORPH ####[place] [address] Lymphocyte %, Manual 5.0 % Low 20.0-40.0 [facility] ([place]) Comment on above: Performed By: #### C BC, BMP, DIFF, GFR, MORPH ####[address] [address] Lymphocyte, Abs Manual 1.3 10 3/mcL Normal 0.9-4.3 [facility] ([place]) Comment on above: Performed By: #### C BC, BMP, DIFF, GFR, MORPH ####[address] [address] Metamyelocyte 1.0 % Normal [facility] ([place]) Comment on above: Performed By: #### C BC, BMP, DIFF, GFR, MORPH ####[address] [address] Monocyte %, Manual 3.0 % Normal 2.0-13.0 [facility] ([place]) Comment on above: Performed By: #### C BC, BMP, DIFF, GFR, MORPH ####[address] [address] Monocyte, Abs Manual 0.8 10 3/mcL Normal 0.1-1.4 [facility] ([place]) Comment on above: Performed By: #### C BC, BMP, DIFF, GFR, MORPH ####[address] [address] Neutrophil %, Manual 88.0 % High 50.0-75.0 [facility] ([place]) Comment on above: Performed By: #### C BC, BMP, DIFF, GFR, MORPH ####[address] [address] Neutrophil, Abs Manual 23.7 10 3/mcL High 2.3-8.1 [facility] ([place]) Comment on above: Performed By: #### C BC, BMP, DIFF, GFR, MORPH ####[address] [address] Nucleated RBC 1.0 /100 WBC Normal [facility] ([place]) Comment on above: Performed By: #### C BC, BMP, DIFF, GFR, MORPH ####[place] [address] .Morphon 04-26-2024 Anisocytosis Ql (Bld) 1+ Normal [facility] ([place]) Comment on above: Performed By: #### C BC, BMP, DIFF, GFR, MORPH ####[place] [address] Ovalocytes 1+ Normal [facility] ([place]) Comment on above: Performed By: #### C BC, BMP, DIFF, GFR, MORPH ####[place] [address] Platelet Estimate Normal Normal [facility] ([place]) Comment on above: Performed By: #### C BC, BMP, DIFF, GFR, MORPH ####[place] [address] Poik 1+ Normal [facility] ([place]) Comment on above: Performed By: #### C BC, BMP, DIFF, GFR, MORPH ####[place] [address] Toxic Gran 1+ Normal [facility] ([place]) Comment on above: Performed By: #### C BC, BMP, DIFF, GFR, MORPH ####[place] [address] APTTon 04-26-2024 aPTT Coag (Bld) [Time] 55.4 s High 25.0-35.0 [facility] ([place]) Comment on above: Result Comment: For Heparin anticoagulation therapy, the recommended therapeutic range is: 54-77 seconds (APTT Correlation with Anti-Xa therapeutic range of 0.3-0.7 units/ml). PLEASE REFERENCE THE PHARMACY PROTOCOL FOR DOSING. Performed By: #### C BC, BMP, DIFF, GFR, MORPH ####[place] [address] Heparin dose (APTT) Heparin IV Normal [facility] ([place]) Comment on above: Performed By: #### C BC, BMP, DIFF, GFR, MORPH ####[place] [address] BMPon 04-26-2024 BUN/Creatinine Ratio 17.0 ratio Normal 10.0-22.0 [facility] ([place]) Comment on above: Performed By: #### C BC, BMP, DIFF, GFR, MORPH ####[address] [address] Calcium [Mass/Vol] 8.3 mg/dL Low 8.7-10.4 [facility] ([place]) Comment on above: Performed By: #### C BC, BMP, DIFF, GFR, MORPH ####[place] [id number] Chloride [Moles/Vol] 105 mmol/L Normal 98-110 [facility] ([place]) Comment on above: Performed By: #### C BC, BMP, DIFF, GFR, MORPH ####[address] [address] CO2 [Moles/Vol] 23 mmol/L Normal 22-32 [facility] ([place]) Comment on above: Performed By: #### C BC, BMP, DIFF, GFR, MORPH ####[place] [address] Creatinine [Mass/Vol] 1.06 mg/dL Normal 0.50-1.20 [facility] ([place]) Comment on above: Performed By: #### C BC, BMP, DIFF, GFR, MORPH ####[address] [address] Electrolyte Balance 8.0 mEq/L Normal 4.0-15.0 [facility] ([place]) Comment on above: Performed By: #### C BC, BMP, DIFF, GFR, MORPH ####[address] [address] Glucose [Mass/Vol] 87 mg/dL Normal 82-115 [facility] ([place]) Comment on above: Performed By: #### C BC, BMP, DIFF, GFR, MORPH ####[address] [address] Potassium [Moles/Vol] 3.6 mmol/L Normal 3.5-5.0 [facility] ([place]) Comment on above: Performed By: #### C BC, BMP, DIFF, GFR, MORPH ####[place] [address] Sodium [Moles/Vol] 136 mmol/L Normal 136-145 [facility] ([place]) Comment on above: Performed By: #### C BC, BMP, DIFF, GFR, MORPH ####[place] [address] Urea nitrogen [Mass/Vol] 18.0 mg/dL Normal 8.0-22.0 [facility] ([place]) Comment on above: Performed By: #### C BC, BMP, DIFF, GFR, MORPH ####[place] [address] CBCon 04-26-2024 Erythrocyte distribution width (RBC) [Ratio] 17.6 % High 11.5-15.5 [facility] ([place]) Comment on above: Performed By: #### C BC, BMP, DIFF, GFR, MORPH ####[place] [address] Hematocrit (Bld) [Volume fraction] 27.5 % Low 34.0-46.0 [facility] ([place]) Comment on above: Performed By: #### C BC, BMP, DIFF, GFR, MORPH ####[place] [address] Hgb 9.0 G/dL Low 12.0-16.0 [facility] ([place]) Comment on above: Performed By: #### C BC, BMP, DIFF, GFR, MORPH ####[place] [address] MCH (RBC) [Entitic mass] 31.1 pg Normal 27.0-33.0 [facility] ([place]) Comment on above: Performed By: #### C BC, BMP, DIFF, GFR, MORPH ####[place] [address] MCHC 32.7 G/dL Normal 32.0-36.0 [facility] ([place]) Comment on above: Performed By: #### C BC, BMP, DIFF, GFR, MORPH ####[place] [address] MCV (RBC) [Entitic vol] 94.9 fL Normal 80.0-99.0 [facility] ([place]) Comment on above: Performed By: #### C BC, BMP, DIFF, GFR, MORPH ####[address] [address] Platelet 276 10 3/mcL Normal 150-450 [facility] ([place]) Comment on above: Performed By: #### C BC, BMP, DIFF, GFR, MORPH ####[place] [address] Platelet mean volume (Bld) [Entitic vol] 10.0 fL Normal 6.6-10.5 [facility] ([place]) Comment on above: Performed By: #### C BC, BMP, DIFF, GFR, MORPH ####[place] [address] RBC 2.89 10 6/mcL Low 4.10-5.30 [facility] ([place]) Comment on above: Performed By: #### C BC, BMP, DIFF, GFR, MORPH ####[place] [address] WBC 26.7 10 3/mcL High 4.5-10.8 [facility] ([place]) Comment on above: Performed By: #### C BC, BMP, DIFF, GFR, MORPH ####[address] [address] LABORATORYOrdered By: Juan on 04-26-2024 aPTT Coag (Bld) [Time] 55.4 s High 25.0 - 35.0 seconds [facility] Comment on above: Interpretive Data: F or Heparin anticoagulation therapy, the recommended therapeutic range is: 54-77 seconds (APTT Correlation with Anti-Xa therapeutic range of 0.3-0.7 units/ml). PLEASE REFERENCE THE PHARMACY PROTOCOL FOR DOSING. Heparin dose (APTT) Heparin IV (04/26/24 6:24 AM) Normal AH Coagulation S LABORATORYOrdered By: SYSTEM SYSTEM on 04-26-2024 Band form neutrophils/100 WBC (Bld) 1.0 % Normal 0.0 - 5.0 % AH Workflow SS Metamyelocytes/100 WBC (Bld) 1.0 % Invalid Interpretation Code Workflow SS Toxic Gran 1+ *NA* (04/26/24 6:24 AM) Invalid Interpretation Code Workflow SS US RENALon 04-26-2024 US RENAL ORIGINAL EXAMINATION: ULTRASOUND OF THE KIDNEYS 04/26/2024 1:44 pm COMPARISON: 05/24/2022 HISTORY: ORDERING SYSTEM PROVIDED HISTORY: Reason for Exam: bacteremia, UTI FINDINGS: Right and left kidneys measure 11.5 x 5.8 x 5.4 cm, and 10.5 x 4.4 x 5.1 cm respectively. The right kidney demonstrates a new isoechoic mass measuring 3.0 x 3.1 x 2.4 cm which does not display significant vascular flow. There is some posterior wall enhancement and through transmission but this does not reflect a simple cyst. There are 3 discrete simple cysts in the right kidney which are unchanged from prior study. There is a solitary 1.2 cm left renal cyst which is stable. There is no shadowing stone or hydronephrosis. Urinary bladder contains a volume of 59 mL of urine without bladder wall abnormality. IMPRESSION: 1. New 3.1 cm isoechoic mass in the right kidney. This does not display significant vascular flow. This may reflect a complex cyst, pyelonephritis, or a solid renal mass. 2. Stable bilateral renal cysts. Interpreted by: Ren Salcedo DO Preliminary Report By: Ren Salcedo DO Electronically signed By Ren Salcedo DO Dictated Date: 04/26/2024 1:45:54 PM Prelim Date: 04/26/2024 1:56:29 PM Sign Date: 04/26/2024 1:56:29 PM Ordering Provider: [facility] ([place]) XR ABDOMEN 2 VIEWS W/ DECUB/ ERECTon 04-26-2024 XR ABDOMEN 2 VIEWS W/ DECUB/ERECT ORIGINAL EXAMINATION: TWO XRAY VIEWS OF THE ABDOMEN 04/26/2024 2:51 pm COMPARISON: None. HISTORY: ORDERING SYSTEM PROVIDED HISTORY: Reason for Exam: abd pain FINDINGS: Nonspecific bowel gas pattern without evidence of obstruction. No abnormal calcifications. No acute osseous abnormality. IMPRESSION: No evidence of bowel obstruction. Interpreted by: Ren Salcedo DO Preliminary Report By: Ren Salcedo DO Electronically signed By Ren Salcedo DO Dictated Date: 04/26/2024 3:23:05 PM Prelim Date: 04/26/2024 3:24:13 PM Sign Date: 04/26/2024 3:24:13 PM Ordering Provider: [facility] ([place]) .GFRon 04-25-2024 GFR Non- 42 ml/min/1.73sqm Normal [facility] ([place]) Comment on above: Result Comment: GFR Population mean for , Non- Americans Ages 20-29 = 116 mL/min/1.73 sq.m. Ages 30-39 = 107 mL/min/1.73 sq.m. Ages 40-49 = 99 mL/min/1.73 sq.m. Ages 50-59 = 93 mL/min/1.73 sq.m. Ages 60-69 = 85 mL/min/1.73 sq.m. Ages 70+ = 75 mL/min/1.73 sq.m. Chronic Kidney Disease: Less than 60 mL/min/1.73 square meters End Stage Renal Disease: Less than 15 mL/min/1.73 square meters Performed By: #### G FR, BMP ####[place] [address] GFR 51 ml/min/1.73sqm Normal [facility] ([place]) Comment on above: Result Comment: GFR Population mean for , Non- Americans Ages 20-29 = 116 mL/min/1.73 sq.m. Ages 30-39 = 107 mL/min/1.73 sq.m. Ages 40-49 = 99 mL/min/1.73 sq.m. Ages 50-59 = 93 mL/min/1.73 sq.m. Ages 60-69 = 85 mL/min/1.73 sq.m. Ages 70+ = 75 mL/min/1.73 sq.m. Chronic Kidney Disease: Less than 60 mL/min/1.73 square meters End Stage Renal Disease: Less than 15 mL/min/1.73 square meters Performed By: #### G FR, BMP ####[place] [id number] .Manual Diffon 04-25-2024 Bands 1.0 % Normal 0.0-5.0 [facility] ([place]) Comment on above: Performed By: #### M ORPH, DIFF, CBC ####[address] [address] Basophil %, Manual 0.0 % Normal 0.0-2.5 [facility] ([place]) Comment on above: Performed By: #### M ORPH, DIFF, CBC ####[address] [address] Basophil, Abs Manual 0.0 10 3/mcL Normal 0.0-0.3 [facility] ([place]) Comment on above: Performed By: #### M ORPH, DIFF, CBC ####[address] [address] Eosinophil %, Manual 1.0 % Normal 0.0-6.0 [facility] ([place]) Comment on above: Performed By: #### M ORPH, DIFF, CBC ####[address] [address] Eosinophil, Abs Manual 0.2 10 3/mcL Normal 0.0-0.7 [facility] ([place]) Comment on above: Performed By: #### M ORPH, DIFF, CBC ####[address] [address] Lymphocyte %, Manual 11.0 % Low 20.0-40.0 [facility] ([place]) Comment on above: Performed By: #### M ORPH, DIFF, CBC ####[address] [address] Lymphocyte, Abs Manual 2.7 10 3/mcL Normal 0.9-4.3 [facility] ([place]) Comment on above: Performed By: #### M ORPH, DIFF, CBC ####[address] [address] Monocyte %, Manual 1.0 % Low 2.0-13.0 [facility] ([place]) Comment on above: Performed By: #### M ORPH, DIFF, CBC ####[address] [address] Monocyte, Abs Manual 0.2 10 3/mcL Normal 0.1-1.4 [facility] ([place]) Comment on above: Performed By: #### M ORPH, DIFF, CBC ####[place] [address] Neutrophil %, Manual 86.0 % High 50.0-75.0 [facility] ([place] Comment on above: Performed By: #### M ORPH, DIFF, CBC ####[place] [address] Neutrophil, Abs Manual 20.9 10 3/mcL High 2.3-8.1 [facility] ([place]) Comment on above: Performed By: #### M ORPH, DIFF, CBC ####[place] [address] Nucleated RBC 0.0 /100 WBC Normal [facility] ([place]) Comment on above: Performed By: #### M ORPH, DIFF, CBC ####[place] [address] .Morphon 04-25-2024 Anisocytosis Ql (Bld) 1+ Normal [facility] ([place]) Comment on above: Performed By: #### M ORPH, DIFF, CBC ####[place] [address] Ovalocytes 1+ Normal [facility] ([place]) Comment on above: Performed By: #### M ORPH, DIFF, CBC ####[place] [address] Platelet Estimate Normal Normal [facility] ([place] Comment on above: Performed By: #### M ORPH, DIFF, CBC ####[place] [address] Poik 1+ Normal [facility] ([place]) Comment on above: Performed By: #### M ORPH, DIFF, CBC ####[place] [address] Polychrom 1+ Normal [facility] ([place]) Comment on above: Performed By: #### M ORPH, DIFF, CBC ####[place] [address] ABO/Rh (Gel)on 04-25-2024 ABO/Rh Interp Positive Invalid Interpretation Code [facility] ([place]) Comment on above: Performed By: #### A JEF ASHFORD ####[place] [address] ABS (Gel)on 04-25-2024 ABSC Interp (Gel) Negative Normal [facility] ([place]) Comment on above: Performed By: #### A JEF ASHFORD ####[place] [address] APTTon 04-25-2024 aPTT Coag (Bld) [Time] 54.6 s High 25.0-35.0 [facility] ([place]) Comment on above: Result Comment: For Heparin anticoagulation therapy, the recommended therapeutic range is: 54-77 seconds (APTT Correlation with Anti-Xa therapeutic range of 0.3-0.7 units/ml). PLEASE REFERENCE THE PHARMACY PROTOCOL FOR DOSING. Heparin dose (APTT) Heparin IV Normal [facility] ([place]) aPTT Coag (Bld) [Time] 65.7 s High 25.0-35.0 [facility] ([place]) Comment on above: Result Comment: For Heparin anticoagulation therapy, the recommended therapeutic range is: 54-77 seconds (APTT Correlation with Anti-Xa therapeutic range of 0.3-0.7 units/ml). PLEASE REFERENCE THE PHARMACY PROTOCOL FOR DOSING. Heparin dose (APTT) Heparin IV Normal [facility] ([place]) aPTT Coag (Bld) [Time] 74.8 s High 25.0-35.0 [facility] ([place]) Comment on above: Result Comment: For Heparin anticoagulation therapy, the recommended therapeutic range is: 54-77 seconds (APTT Correlation with Anti-Xa therapeutic range of 0.3-0.7 units/ml). PLEASE REFERENCE THE PHARMACY PROTOCOL FOR DOSING. Performed By: ###FAIZAN NIXON ####[place] [address] Heparin dose (APTT) Heparin IV Normal [facility] ([place]) Comment on above: Performed By: #### FAIZAN LAMB ####[place] [address] BCIDon 04-25-2024 Acinetobacter michi-baumanii complex Not detected Normal Not Detected [facility] ([place]) Comment on above: Performed By: #### B JARET ####[place] [address] Bacteroides fragilis Not detected Normal Not Detected [facility] ([place]) Comment on above: Performed By: #### B JARET ####[place] [address] BCID Comment See Comment Normal [facility] ([place]) Comment on above: Result Comment: Anti microbial resistance can occur via multiple mechanisms. A Not Detected result for antimicrobial resistance gene(s) does not indicate antimicrobial susceptibility. Culture identification and susceptibility results to follow. If BCID panel was negative ( Not Detected ) for all targets, this does not exclude a blood stream infection. Our blood culture system detected growth. Culture identification and susceptibility testing (if appropriate) to follow. Performed By: #### B JARET ####[place] [address] Virginie albicans Not detected Normal Not Detected [facility] ([place]) Comment on above: Performed By: #### B JARET ####[place] [address] Virginie auris Not detected Normal Not Detected [facility] ([place]) Comment on above: Performed By: #### B JARET ####[place] [address] Virginie glabrata Not detected Normal Not Detected [facility] ([place] Comment on above: Performed By: #### B JARET ####[place] [address] Virginie krusei Not detected Normal Not Detected [facility] ([place] Comment on above: Performed By: #### B JARET ####[place] [address] Virginie parapsilosis Not detected Normal Not Detected [facility] ([place] Comment on above: Performed By: #### B JARET ####[place] [address] Virginie tropicalis Not detected Normal Not Detected [facility] ([place] Comment on above: Performed By: #### B JARET ####[address] [place] [address] Cryptococcus neoformans-gattii Not detected Normal Not Detected [facility] ([place]) Comment on above: Performed By: #### B JARET ####[place] [address] CTX-M (ESBL) Not detected Normal Not Detected [facility] ([place] Comment on above: Performed By: #### B JARET ####[place] [address] E. Coli Detected Abnormal Not Detected [facility] ([place] Comment on above: Performed By: #### B JARET ####[place] [address] Enterobacter cloacae Complex Not detected Normal Not Detected [facility] ([place] Comment on above: Performed By: #### B JARET ####[place] [address] Enterobacterales Detected Abnormal Not Detected [facility] ([place] Comment on above: Performed By: #### B JARET ####[place] [address] Enterococcus faecalis Not detected Normal Not Detected [facility] ([place] Comment on above: Performed By: #### B JARET ####[place] [address] Enterococcus faecium Not detected Normal Not Detected [facility] ([place] Comment on above: Performed By: #### B JARET ####[place] [address] Haemophilus influenzae Not detected Normal Not Detected [facility] ([place] Comment on above: Performed By: #### B JARET ####[place] [address] IMP (Carbapenemase) Not detected Normal Not Detected [facility] ([place] Comment on above: Performed By: #### B JARET ####[place] [address] Klebsiella aerogenes Not detected Normal Not Detected [facility] ([place] Comment on above: Performed By: #### B JARET ####[place] [address] Klebsiella oxytoca Not detected Normal Not Detected [facility] ([place] Comment on above: Performed By: #### B JARET ####[place] [address] Klebsiella pneumoniae group Not detected Normal Not Detected [facility] ([place] Comment on above: Performed By: #### B JARET ####[place] [address] KPC (Carbapenemase) Not detected Normal Not Detected [facility] ([place] Comment on above: Performed By: #### B JARET ####[place] [address] Listeria monocytogenes Not detected Normal Not Detected [facility] ([place] Comment on above: Performed By: #### B JARET ####[place] [address] MCR-1 (Colistin Resistance) Not detected Normal Not Detected [facility] ([place] Comment on above: Performed By: #### B JARET ####[place] [address] Mec A/C Not Applicable Normal Not Detected [facility] ([place] Comment on above: Performed By: #### B JARET ####[place] [address] Mec A/C-MREJ (MRSA) Not Applicable Normal Not Detected [facility] ([place] Comment on above: Performed By: #### B JARET ####[place] [address] NDM (Carbapenemase) Not detected Normal Not Detected [facility] ([place] Comment on above: Performed By: #### B JARET ####[place] [address] Neisseria meningitidis (Encapsalated) Not detected Normal Not Detected [facility] ([place] Comment on above: Performed By: #### B JARET ####[place] [address] OXA-48 like (Carbapenemase) Not detected Normal Not Detected [facility] ([place] Comment on above: Performed By: #### B JARET ####[place] [address] Proteus Not detected Normal Not Detected [facility] ([place] Comment on above: Performed By: #### B JARET ####[place] [address] Pseudomonas aeruginosa Not detected Normal Not Detected [facility] ([place] Comment on above: Performed By: #### B JARET ####[place] [address] S. agalactiae Org specific cx Ql (Vag fld) Not detected Normal Not Detected [facility] ([place] Comment on above: Performed By: #### B JARET ####[place] [address] Salmonella species Not detected Normal Not Detected [facility] ([place] Comment on above: Performed By: #### B JARET ####[place] [address] Serratia marcescens Not detected Normal Not Detected [facility] ([place] Comment on above: Performed By: #### B JARET ####[place] [address] Staphylococcus Not detected Normal Not Detected [facility] ([place] Comment on above: Performed By: #### B JARET ####[place] [address] Staphylococcus aureus Not detected Normal Not Detected [facility] ([place]) Comment on above: Result Comment: If S taphylococcus aureus is Detected , an Infectious Disease physician consult is required on identification. Performed By: #### B JARET ####[place] [address] Staphylococcus epidermidis Not detected Normal Not Detected [facility] ([place]) Comment on above: Performed By: #### B JARET ####[place] [address] Staphylococcus lugdunensis Not detected Normal Not Detected [facility] ([place] Comment on above: Performed By: #### B JARET ####[place] [address] Stenotrophomonas maltophilia Not detected Normal Not Detected [facility] ([place] Comment on above: Performed By: #### B JARET ####[place] [address] Streptococcus Not detected Normal Not Detected [facility] ([place] Comment on above: Performed By: #### B JARET ####[place] [address] Streptococcus pneumoniae Not detected Normal Not Detected [facility] ([place] Comment on above: Performed By: #### B JARET ####[place] [address] Streptococcus pyogenes Not detected Normal Not Detected [facility] ([place] Comment on above: Performed By: #### B JARET ####[place] [address] Van A/B Not Applicable Normal Not Detected [facility] ([place] Comment on above: Performed By: #### B JARET ####[place] [address] VIM (Carbapenemase) Not detected Normal Not Detected [facility] ([place] Comment on above: Performed By: #### B JARET ####[place] [address] BMPon 04-25-2024 BUN/Creatinine Ratio 21.4 ratio Normal 10.0-22.0 [facility] ([place]) Comment on above: Performed By: #### G FR, BMP ####[place] [address] Calcium [Mass/Vol] 7.6 mg/dL Low 8.7-10.4 [facility] ([place]) Comment on above: Performed By: #### G FR, BMP ####[place] [address] Chloride [Moles/Vol] 100 mmol/L Normal 98-110 [facility] ([place] Comment on above: Performed By: #### G FR, BMP ####[place] [id number] CO2 [Moles/Vol] 19 mmol/L Low 22-32 [facility] ([place]) Comment on above: Performed By: #### G FR, BMP ####[address] [address] Creatinine [Mass/Vol] 1.26 mg/dL High 0.50-1.20 [facility] ([place]) Comment on above: Performed By: #### Tara SAMPSON, BMP ####[place] [address] Electrolyte Balance 9.0 mEq/L Normal 4.0-15.0 [facility] ([place] Comment on above: Performed By: #### Tara SAMPSON, BMP ####[place] [address] Glucose [Mass/Vol] 105 mg/dL Normal 82-115 [facility] ([place] Comment on above: Performed By: #### Tara SAMPSON, BMP ####[place] [address] Potassium [Moles/Vol] 3.8 mmol/L Normal 3.5-5.0 [facility] ([place] Comment on above: Performed By: #### Tara SAMPSON, BMP ####[place] [address] Sodium [Moles/Vol] 128 mmol/L Low 136-145 [facility] ([place] Comment on above: Performed By: #### Tara SAMPSON, BMP ####[place] [address] Urea nitrogen [Mass/Vol] 27.0 mg/dL High 8.0-22.0 [facility] ([place] Comment on above: Performed By: #### Tara SAMPSON, BMP ####[place] [address] CBCon 04-25-2024 Erythrocyte distribution width (RBC) [Ratio] 17.1 % High 11.5-15.5 [facility] ([place]) Comment on above: Performed By: #### M ORPH, DIFF, CBC ####[address] [address] Hematocrit (Bld) [Volume fraction] 19.4 % Low 34.0-46.0 [facility] ([place] Comment on above: Performed By: #### M ORPH, DIFF, CBC ####[address] [address] Hgb 6.3 G/dL Critically abnormal 12.0-16.0 [facility] ([place] Comment on above: Performed By: #### M ORPH, DIFF, CBC ####[address] [address] MCH (RBC) [Entitic mass] 31.3 pg Normal 27.0-33.0 [facility] ([place] Comment on above: Performed By: #### M ORPH, DIFF, CBC ####[address] [address] MCHC 32.6 G/dL Normal 32.0-36.0 [facility] ([place] Comment on above: Performed By: #### M ORPH, DIFF, CBC ####[address] [address] MCV (RBC) [Entitic vol] 95.9 fL Normal 80.0-99.0 [facility] ([place] Comment on above: Performed By: #### M ORPH, DIFF, CBC ####[address] [address] Platelet 236 10 3/mcL Normal 150-450 [facility] ([place]) Comment on above: Performed By: #### M ORPH, DIFF, CBC ####[address] [address] Platelet mean volume (Bld) [Entitic vol] 9.6 fL Normal 6.6-10.5 [facility] ([place]) Comment on above: Performed By: #### M ORPH, DIFF, CBC ####[address] [address] RBC 2.02 10 6/mcL Low 4.10-5.30 [facility] ([place]) Comment on above: Performed By: #### M ORPH, DIFF, CBC ####[address] [address] WBC 24.1 10 3/mcL High 4.5-10.8 [facility] ([place] Comment on above: Performed By: #### M ORPH, DIFF, CBC ####[facility] [place] [place] [address] HHon 04-25-2024 Hematocrit (Bld) [Volume fraction] 25.8 % Low 34.0-46.0 [facility] ([place] Comment on above: Performed By: #### O SMOS #### [facility] [place] [address] [place] [address] Hgb 8.6 G/dL Low 12.0-16.0 [facility] ([place] Comment on above: Performed By: #### O SMOS #### [facility] [place] [address] [place] [address] LABORATORYOrdered By: Luis E Duke on 04-25-2024 Osmolality (U) [Osmolality] 111 mosm/kg Low 390 - 1090 mOsm/kg Manual Chem SS Sodium (U) [Moles/Vol] mEq/L Invalid Interpretation Code ADM SS LABORATORYOrdered By: Jonathan Catherine on 04-25-2024 aPTT Coag (Bld) [Time] 54.6 s High 25.0 - 35.0 seconds [facility] SS Comment on above: Interpretive Data: F or Heparin anticoagulation therapy, the recommended therapeutic range is: 54-77 seconds (APTT Correlation with Anti-Xa therapeutic range of 0.3-0.7 units/ml). PLEASE REFERENCE THE PHARMACY PROTOCOL FOR DOSING. Heparin dose (APTT) Heparin IV (04/25/24 3:09 PM) Normal AH Coagulation S LABORATORYOrdered By: Noah Nash on 04-25-2024 aPTT Coag (Bld) [Time] 65.7 s High 25.0 - 35.0 seconds [facility] SS Comment on above: Interpretive Data: F or Heparin anticoagulation therapy, the recommended therapeutic range is: 54-77 seconds (APTT Correlation with Anti-Xa therapeutic range of 0.3-0.7 units/ml). PLEASE REFERENCE THE PHARMACY PROTOCOL FOR DOSING. Heparin dose (APTT) Heparin IV (04/25/24 8:48 AM) Normal AH Coagulation S LABORATORYOrdered By: Chucho Garcia on 04-25-2024 ABO and Rh group Nom (Bld) Blood group A Rh(D) positive Invalid Interpretation Code AH BB Auto SS Blood group antibody screen Ql Negative ABSC (04/25/24 5:47 AM) Normal AH BB Auto SS LABORATORYOrdered By: Tylor Ford on 04-25-2024 RBC Product Ready RBC Ready for Pickup (04/25/24 3:13 AM) Normal AH BB Manual SS LABORATORYOrdered By: SYSTEM SYSTEM on 04-25-2024 Polychromasia LM Ql (Bld) 1+ *NA* (04/25/24 2:44 AM) Invalid Interpretation Code AH Workflow SS NAURon 04-25-2024 U Sodium <10 Normal [facility] ([place]) Comment on above: Performed By: #### O BRANDEE BARRY ####[place] [id number] [address] [place] [address] No Panel Informationon 04-25 Microscopic examination of blood, culture Blood Culture: No Growth at 5 days. [facility] [place] Microscopic examination of blood, culture Blood Culture: No Growth at 5 days. [facility] [place] OSMOUon 04-25-2024 U Osmolality 111 mOsm/kg Low 390-1090 [facility] ([place] Comment on above: Performed By: #### O BRANDEE BARRY ####[address] [address] RBC (Product)on 04-25-2024 RBC Product Ready RBC Ready for Pickup Normal [facility] ([place]) Comment on above: Performed By: #### R BCP #### [address] [address] .GFRon 04-24-2024 GFR 47 ml/min/1.73sqm Normal [facility] ([place]) Comment on above: Result Comment: GFR Population mean for , Non- Americans Ages 20-29 = 116 mL/min/1.73 sq.m. Ages 30-39 = 107 mL/min/1.73 sq.m. Ages 40-49 = 99 mL/min/1.73 sq.m. Ages 50-59 = 93 mL/min/1.73 sq.m. Ages 60-69 = 85 mL/min/1.73 sq.m. Ages 70+ = 75 mL/min/1.73 sq.m. Chronic Kidney Disease: Less than 60 mL/min/1.73 square meters End Stage Renal Disease: Less than 15 mL/min/1.73 square meters Performed By: #### G FR, TROPHS, MG, HFP, LIPID, BMP ####[place] [address] GFR Non- 38 ml/min/1.73sqm Normal [facility] ([place] Comment on above: Result Comment: GFR Population mean for , Non- Americans Ages 20-29 = 116 mL/min/1.73 sq.m. Ages 30-39 = 107 mL/min/1.73 sq.m. Ages 40-49 = 99 mL/min/1.73 sq.m. Ages 50-59 = 93 mL/min/1.73 sq.m. Ages 60-69 = 85 mL/min/1.73 sq.m. Ages 70+ = 75 mL/min/1.73 sq.m. Chronic Kidney Disease: Less than 60 mL/min/1.73 square meters End Stage Renal Disease: Less than 15 mL/min/1.73 square meters Performed By: #### G FR, TROPHS, MG, HFP, LIPID, BMP ####[place] [address] .Manual Diffon 04-24-2024 Bands 2.0 % Normal 0.0-5.0 [facility] ([place]) Comment on above: Performed By: #### O SMOS #### [place] [address] Basophil %, Manual 0.0 % Normal 0.0-2.5 [facility] ([place] Comment on above: Performed By: #### O SMOS #### [place] [address] Basophil, Abs Manual 0.0 10 3/mcL Normal 0.0-0.3 [facility] ([place]) Comment on above: Performed By: #### O SMOS #### [place] [address] Eosinophil %, Manual 0.0 % Normal 0.0-6.0 [facility] ([place] Comment on above: Performed By: #### O SMOS #### [address] [address] Eosinophil, Abs Manual 0.0 10 3/mcL Normal 0.0-0.7 [facility] ([place] Comment on above: Performed By: #### O SMOS #### [address] [address] Lymphocyte %, Manual 5.0 % Low 20.0-40.0 [facility] ([place] Comment on above: Performed By: #### O SMOS #### [address] [address] Lymphocyte, Abs Manual 1.6 10 3/mcL Normal 0.9-4.3 [facility] ([place] Comment on above: Performed By: #### O SMOS #### [address] [address] Monocyte %, Manual 1.0 % Low 2.0-13.0 [facility] ([place] Comment on above: Performed By: #### O SMOS #### [address] [address] Monocyte, Abs Manual 0.3 10 3/mcL Normal 0.1-1.4 [facility] ([place] Comment on above: Performed By: #### O SMOS #### [address] [address] Myelocyte 1.0 % Normal [facility] ([place]) Comment on above: Performed By: #### O SMOS #### [address] [address] Neutrophil %, Manual 91.0 % High 50.0-75.0 [facility] ([place]) Comment on above: Performed By: #### O SMOS #### [address] [address] Neutrophil, Abs Manual 29.4 10 3/mcL High 2.3-8.1 [facility] ([place]) Comment on above: Performed By: #### O SMOS #### [address] [address] Nucleated RBC 1.0 /100 WBC Normal [facility] ([place]) Comment on above: Performed By: #### O SMOS #### [place] [address] .Morphon 04-24-2024 Anisocytosis Ql (Bld) 1+ Normal [facility] ([place]) Comment on above: Performed By: #### O SMOS #### [place] [address] Hypochrom 1+ Normal [facility] ([place]) Comment on above: Performed By: #### O SMOS #### [place] [address] Ovalocytes 1+ Normal [facility] ([place]) Comment on above: Performed By: #### O SMOS #### [place] [address] Platelet Estimate Normal Normal [facility] ([place]) Comment on above: Performed By: #### O SMOS #### [place] [address] Poik 1+ Normal [facility] ([place] Comment on above: Performed By: #### O SMOS #### [place] [address] Polychrom 1+ Normal [facility] ([place] Comment on above: Performed By: #### O SMOS #### [place] [address] Toxic Gran 1+ Normal [facility] ([place] Comment on above: Performed By: #### O SMOS #### [place] [address] APTTon 04-24-2024 aPTT Coag (Bld) [Time] 87.6 s High 25.0-35.0 [facility] ([place]) Comment on above: Result Comment: For Heparin anticoagulation therapy, the recommended therapeutic range is: 54-77 seconds (APTT Correlation with Anti-Xa therapeutic range of 0.3-0.7 units/ml). PLEASE REFERENCE THE PHARMACY PROTOCOL FOR DOSING. Heparin dose (APTT) Heparin IV Normal [facility] ([place]) aPTT Coag (Bld) [Time] 147.9 s Critically abnormal 25.0-35.0 [facility] ([place]) Comment on above: Order Comment: recol lect Result Comment: For Heparin anticoagulation therapy, the recommended therapeutic range is: 54-77 seconds (APTT Correlation with Anti-Xa therapeutic range of 0.3-0.7 units/ml). PLEASE REFERENCE THE PHARMACY PROTOCOL FOR DOSING. Heparin dose (APTT) Heparin IV Normal [facility] ([place] Comment on above: Order Comment: recol lect aPTT Coag (Bld) [Time] 145.4 s Critically abnormal 25.0-35.0 [facility] ([place] Comment on above: Result Comment: For Heparin anticoagulation therapy, the recommended therapeutic range is: 54-77 seconds (APTT Correlation with Anti-Xa therapeutic range of 0.3-0.7 units/ml). PLEASE REFERENCE THE PHARMACY PROTOCOL FOR DOSING. Heparin dose (APTT) Heparin IV Normal [facility] ([place]) aPTT Coag (Bld) [Time] 125.7 s Critically abnormal 25.0-35.0 [facility] ([place] Comment on above: Result Comment: For Heparin anticoagulation therapy, the recommended therapeutic range is: 54-77 seconds (APTT Correlation with Anti-Xa therapeutic range of 0.3-0.7 units/ml). PLEASE REFERENCE THE PHARMACY PROTOCOL FOR DOSING. Performed By: #### O SMOS #### [address] [address] Heparin dose (APTT) Coumadin PO Normal [facility] ([place]) Comment on above: Performed By: #### O SMOS #### [address] [address] BMPon 04-24-2024 BUN/Creatinine Ratio 17.6 ratio Normal 10.0-22.0 [facility] ([place] Comment on above: Performed By: #### G FR, TROPHS, MG, HFP, LIPID, BMP ####[address] [address] Calcium [Mass/Vol] 7.6 mg/dL Low 8.7-10.4 [facility] ([place]) Comment on above: Performed By: #### G FR, TROPHS, MG, HFP, LIPID, BMP ####[address] [address] Chloride [Moles/Vol] 100 mmol/L Normal 98-110 [facility] ([place]) Comment on above: Performed By: #### G FR, TROPHS, MG, HFP, LIPID, BMP ####[address] [address] CO2 [Moles/Vol] 17 mmol/L Low 22-32 [facility] ([place]) Comment on above: Performed By: #### G FR, TROPHS, MG, HFP, LIPID, BMP ####[address] [address] Creatinine [Mass/Vol] 1.36 mg/dL High 0.50-1.20 [facility] ([place]) Comment on above: Performed By: #### G FR, TROPHS, MG, HFP, LIPID, BMP ####[place] [address] Electrolyte Balance 12.0 mEq/L Normal 4.0-15.0 [facility] ([place]) Comment on above: Performed By: #### G FR, TROPHS, MG, HFP, LIPID, BMP ####[place] [address] Glucose [Mass/Vol] 111 mg/dL Normal 82-115 [facility] ([place]) Comment on above: Performed By: #### G FR, TROPHS, MG, HFP, LIPID, BMP ####[place] [address] Potassium [Moles/Vol] 4.0 mmol/L Normal 3.5-5.0 [facility] ([place] Comment on above: Performed By: #### G FR, TROPHS, MG, HFP, LIPID, BMP ####[place] [address] Sodium [Moles/Vol] 129 mmol/L Low 136-145 [facility] ([place] Comment on above: Performed By: #### G FR, TROPHS, MG, HFP, LIPID, BMP ####[place] [address] Urea nitrogen [Mass/Vol] 24.0 mg/dL High 8.0-22.0 [facility] ([place] Comment on above: Performed By: #### G FR, TROPHS, MG, HFP, LIPID, BMP ####[place] [address] CBCon 04-24-2024 Erythrocyte distribution width (RBC) [Ratio] 17.0 % High 11.5-15.5 [facility] ([place] Comment on above: Performed By: #### R BCP #### [place] [address] Hematocrit (Bld) [Volume fraction] 22.1 % Low 34.0-46.0 [facility] ([place] Comment on above: Performed By: #### R BCP #### [place] [address] Hgb 7.3 G/dL Low 12.0-16.0 [facility] ([place] Comment on above: Performed By: #### R BCP #### [place] [address] MCH (RBC) [Entitic mass] 31.7 pg Normal 27.0-33.0 [facility] ([place] Comment on above: Performed By: #### R BCP #### [place] [address] MCHC 33.2 G/dL Normal 32.0-36.0 [facility] ([place] Comment on above: Performed By: #### R BCP #### [place] [address] MCV (RBC) [Entitic vol] 95.6 fL Normal 80.0-99.0 [facility] ([place]) Comment on above: Performed By: #### R BCP #### [place] [address] Platelet 231 10 3/mcL Normal 150-450 [facility] ([place]) Comment on above: Performed By: #### R BCP #### [place] [id number] Platelet mean volume (Bld) [Entitic vol] 9.7 fL Normal 6.6-10.5 [facility] ([place]) Comment on above: Performed By: #### R BCP #### [place] [address] RBC 2.31 10 6/mcL Low 4.10-5.30 [facility] ([place]) Comment on above: Performed By: #### R BCP #### [place] [address] WBC 31.7 10 3/mcL High 4.5-10.8 [facility] ([place] Comment on above: Performed By: #### R BCP #### [place] [address] CVFLURVon 04-24-2024 FLU A PCR Negative Normal Negative [facility] ([place]) Comment on above: Performed By: #### C VFLURV ####[place] [address] FLU B PCR Negative Normal Negative [facility] ([place] Comment on above: Performed By: #### C VFLURV ####[place] [address] RSV PCR Negative Normal Negative [facility] ([place]) Comment on above: Performed By: #### C VFLURV ####[place] [address] SARS-CoV-2 (COVID-19) RNA TL+probe Ql (Unsp spec) Negative Normal Negative [facility] ([place]) Comment on above: Result Comment: This test has been authorized by FDA under an EUA for use by authorized laboratories and has not been FDA cleared or approved. Results from the Xpert Xpress SARS-CoV-2/Flu/RSV or Xpert Xpress SARS-CoV-2 only test should be correlated with the clinical history, epidemiological data, and other data available to the clinician evaluating the patient. Performance of the Xpert Xpress SARS-CoV-2/Flu/RSV or Xpert Xpress SARS-CoV-2 only test has only been established in nasopharyngeal swab specimens. Erroneous test results might occur from improper specimen collection; failure to follow the recommended sample collection, handling, and storage procedures; technical error; or sample mix-up.False negative results may occur if virus is present at levels below the analytical limit of detection. Viral nucleic acid may persist in vivo, independent of virus viability. Detection of analyte target(s) does not imply that the corresponding virus(es) are infectious or are the causative agents for clinical symptoms.Recent patient exposure to FluMist or other live attenuated influenza vaccines may cause inaccurate positive results. Performed By: #### C VFLURV ####[place] [address] Robbin 04-24-2024 Ferritin [Mass/Vol] 440.5 ng/mL High 8.0-252.0 [facility] ([place]) Comment on above: Performed By: #### F ERR, FES ####[place] [address] FESon 04-24-2024 Iron [Mass/Vol] 26 ug/dL Low 50-170 [facility] ([place]) Comment on above: Performed By: #### F ERR, FES ####[place] [address] Iron Sat 15 % Normal [facility] ([place]) Comment on above: Performed By: #### F ERR, FES ####[place] [address] TIBC 168 mcg/dL Low 250-500 [facility] ([place] Comment on above: Performed By: #### F ERR, FES ####[place] [address] HFPon 04-24-2024 Bili Indirect 0.2 mg/dL Normal 0.1-10.0 [facility] ([place]) Comment on above: Performed By: #### G FR, TROPHS, MG, HFP, LIPID, BMP ####[place] [address] Albumin Level 2.0 G/dL Low 3.2-4.8 [facility] ([place] Comment on above: Performed By: #### G FR, TROPHS, MG, HFP, LIPID, BMP ####[address] [address] Albumin/Globulin [Mass ratio] 0.6 {ratio} Low 0.9-1.6 [facility] ([place] Comment on above: Performed By: #### G FR, TROPHS, MG, HFP, LIPID, BMP ####[address] [address] ALP [Catalytic activity/Vol] 151 U/L High 38-126 [facility] ([place] Comment on above: Performed By: #### G FR, TROPHS, MG, HFP, LIPID, BMP ####[address] [address] ALT [Catalytic activity/Vol] 350 U/L High 10-49 [facility] ([place] Comment on above: Performed By: #### G FR, TROPHS, MG, HFP, LIPID, BMP ####[address] [address] AST [Catalytic activity/Vol] 595 U/L High 8-34 [facility] ([place]) Comment on above: Performed By: #### G FR, TROPHS, MG, HFP, LIPID, BMP ####[place] [address] Bili Direct 0.3 mg/dL Normal 0.0-0.4 [facility] ([place]) Comment on above: Result Comment: Use of this assay is not recommended for patients undergoing treatment with eltrombopag due to the potential for falsely elevated results. Performed By: #### G FR, TROPHS, MG, HFP, LIPID, BMP ####[place] [address] Bili Total 0.50 mg/dL Normal 0.20-1.20 [facility] ([place] Comment on above: Result Comment: Use of this assay is not recommended for patients undergoing treatment with eltrombopag due to the potential for falsely elevated results. Performed By: #### G FR, TROPHS, MG, HFP, LIPID, BMP ####[place] [address] Globulin 3.4 G/dL Normal 1.5-3.8 [facility] ([place] Comment on above: Performed By: #### G FR, TROPHS, MG, HFP, LIPID, BMP ####[place] [id number] [address] [place] [address] Total Protein 5.4 G/dL Low 5.7-8.2 [facility] ([place] Comment on above: Result Comment: No te - New Reference Range in effect 20 Performed By: #### G FR, TROPHS, MG, HFP, LIPID, BMP ####[place] [id number] [address] [place] [id number] LABORATORYOrdered By: SYSTEM SYSTEM on 04-24-2024 Troponin I.cardiac DL <= 0.01 ng/mL [Mass/Vol] 370 ng/L High 0 - 34 ng/L ADM Comment on above: Interpretive Data: High Sensitive Troponin I Reference Ranges: Female: 0-34 ng/L Male: 0-54 ng/L Testing performed on [employer] IM analyzer using direct chemiluminescent technology. Troponin I.cardiac DL <= 0.01 ng/mL [Mass/Vol] 374 ng/L High 0 - 34 ng/L ADM Comment on above: Interpretive Data: High Sensitive Troponin I Reference Ranges: Female: 0-34 ng/L Male: 0-54 ng/L Testing performed on [employer] IM analyzer using direct chemiluminescent technology. Ferritin [Mass/Vol] 440.5 ng/mL High 8.0 - 25 2.0 ng/mL ADM SS Iron [Mass/Vol] 26 ug/dL Low 50 - 170 mcg/dL ADM SS Iron binding capacity [Mass/Vol] 168 mcg/dL Low 250 - 500 mcg/dL ADM SS Iron saturation [Mass fraction] 15 % Invalid Interpretation Code ADM SS Troponin I.cardiac DL <= 0.01 ng/mL [Mass/Vol] 456 ng/L High 0 - 34 ng/L ADM SS Comment on above: Interpretive Data: High Sensitive Troponin I Reference Ranges: Female: 0-34 ng/L Male: 0-54 ng/L Testing performed on [employer] IM analyzer using direct chemiluminescent technology. Albumin BCP dye [Mass/Vol] 2.0 G/dL Low 3.2 - 4.8 G/dL ADM SS Albumin/Globulin [Mass ratio] 0.6 {ratio} Low 0.9 - 1.6 ratio AH ADM SS ALP [Catalytic activity/Vol] 151 U/L High 38 - 126 U/L ADM SS ALT No additional P-5'-P [Catalytic activity/Vol] 350 U/L High 10 - 49 U/L ADM SS AST [Catalytic activity/Vol] 595 U/L High 8 - 34 U/L ADM SS Bili Indirect 0.2 mg/dL Normal 0.1 - 10.0 mg/dL Chemistry S Bilirubin [Mass/Vol] 0.50 mg/dL Normal 0.20 - 1.20 mg/dL ADM SS Comment on above: Interpretive Data: U se of this assay is not recommended for patients undergoing treatment with eltrombopag due to the potential for falsely elevated results. Bilirubin.conjugated [Mass/Vol] 0.3 mg/dL Normal 0.0 - 0.4 mg/dL ADM SS Comment on above: Interpretive Data: U se of this assay is not recommended for patients undergoing treatment with eltrombopag due to the potential for falsely elevated results. Globulin 3.4 G/dL Normal 1.5 - 3.8 G/dL ADM SS Hypochromia Ql (Bld) 1+ *NA* (04/24/24 5:26 AM) Invalid Interpretation Code Workflow SS Magnesium [Mass/Vol] 1.6 mg/dL Normal 1.6 - 2 .4 mg/dL ADM SS Myelocytes/100 WBC (Bld) 1.0 % Invalid Interpretation Code Workflow SS Protein [Mass/Vol] 5.4 G/dL Low 5.7 - 8.2 G/dL ADM SS Comment on above: Interpretive Data: * *Note - New Reference Range in effect 20 Toxic Gran 1+ *NA* (04/24/24 5:26 AM) Invalid Interpretation Code Workflow SS LABORATORYOrdered By: Tim Muhammad on 04-24-2024 Osmolality (U) [Osmolality] 315 mosm/kg Low 390 - 1090 mOsm/kg Manual Chem SS LABORATORYOrdered By: Megan brown on 04-24-2024 Osmolality [Osmolality] 269 mosm/kg Low 275 - 300 mOsm/kg Manual Chem SS LABORATORYOrdered By: Pili Solano on 04-24-2024 Cholesterol [Mass/Vol] 71 mg/dL Normal 50 - 199 mg/dL ADM SS Comment on above: Interpretive Data: C holesterol Reference Interval: Less than 200 Desirable 200-239 Borderline high risk 240 and above High risk Cholesterol in HDL [Mass/Vol] 8 mg/dL Low 40 - 59 mg/dL ADM SS Cholesterol in LDL [Mass/Vol] 44 mg/dL Normal 0 - 129 mg/dL ADM SS Triglyceride [Mass/Vol] 96 mg/dL Normal 3 - 149 mg/dL ADM SS LABORATORYOrdered By: Fabienne Moraes on 04-24-2024 FLUAV RNA TL+probe Ql (Resp) Negative (04/24/24 4:37 AM) Normal Negative AH Auto Viro/Sero SS FLUBV RNA TL+probe Ql (Resp) Negative (04/24/24 4:37 AM) Normal Negative AH Auto Viro/Sero SS RSV PCR Negative (04/24/24 4:37 AM) Normal Negative AH Auto Viro/Sero SS SARS-CoV-2 (COVID-19) RNA TL+probe Ql (Resp) Negative 17 (04/24/24 4:37 AM) Normal Negative AH Auto Viro/Sero SS Comment on above: Interpretive Data: T his test has been authorized by FDA under an EUA for use by authorized laboratories and has not been FDA cleared or approved. Results from the Xpert Xpress SARS-CoV-2/Flu/RSV or Xpert Xpress SARS-CoV-2 only test should be correlated with the clinical history, epidemiological data, and other data available to the clinician evaluating the patient. Performance of the Xpert Xpress SARS-CoV-2/Flu/RSV or Xpert Xpress SARS-CoV-2 only test has only been established in nasopharyngeal swab specimens. Erroneous test results might occur from improper specimen collection; failure to follow the recommended sample collection, handling, and storage procedures; technical error; or sample mix-up.False negative results may occur if virus is present at levels below the analytical limit of detection. Viral nucleic acid may persist in vivo, independent of virus viability. Detection of analyte target(s) does not imply that the corresponding virus(es) are infectious or are the causative agents for clinical symptoms.Recent patient exposure to FluMist or other live attenuated influenza vaccines may cause inaccurate positive results. LIPIDon 04-24-2024 Cholesterol [Mass/Vol] 71 mg/dL Normal 50-199 [facility] ([place]) Comment on above: Result Comment: Chol esterol Reference Interval: Less than 200 Desirable 200-239 Borderline high risk 240 and above High risk Performed By: #### G FR, TROPHS, MG, HFP, LIPID, BMP ####[place] [address] Cholesterol in HDL [Mass/Vol] 8 mg/dL Low 40-59 [facility] ([place] Comment on above: Performed By: #### G FR, TROPHS, MG, HFP, LIPID, BMP ####[place] [address] Cholesterol in LDL [Mass/Vol] 44 mg/dL Normal 0-129 [facility] ([place]) Comment on above: Performed By: #### G FR, TROPHS, MG, HFP, LIPID, BMP ####[place] [address] Triglyceride [Mass/Vol] 96 mg/dL Normal 3-149 [facility] ([place] Comment on above: Performed By: #### G FR, TROPHS, MG, HFP, LIPID, BMP ####[place] [address] MGon 04-24-2024 Magnesium [Mass/Vol] 1.6 mg/dL Normal 1.6-2.4 [facility] ([place] Comment on above: Performed By: #### G FR, TROPHS, MG, HFP, LIPID, BMP ####[place] [address] OSMOSon 04-24-2024 Osmolality [Osmolality] 269 mosm/kg Low 275-300 [facility] ([place] Comment on above: Performed By: #### O SMOS ####[place] [address] OSMOUon 04-24-2024 U Osmolality 315 mOsm/kg Low 390-1090 [facility] ([place]) Comment on above: Performed By: #### O SMOS #### [place] [address] TROPHSon 04-24-2024 High Sensitivity Troponin I 370 ng/L High 0-34 [facility] ([place] Comment on above: Result Comment: High Sensitive Troponin I Reference Ranges: Female: 0-34 ng/L Male: 0-54 ng/L Testing performed on [employer] IM analyzer using direct chemiluminescent technology. Performed By: #### T EVELIO ####[address] [address] High Sensitivity Troponin I 374 ng/L High 0-34 [facility] ([place] Comment on above: Result Comment: High Sensitive Troponin I Reference Ranges: Female: 0-34 ng/L Male: 0-54 ng/L Testing performed on [employer] IM analyzer using direct chemiluminescent technology. Performed By: #### T EVELIO ####[place] [address] High Sensitivity Troponin I 456 ng/L High 0-34 [facility] ([place] Comment on above: Result Comment: High Sensitive Troponin I Reference Ranges: Female: 0-34 ng/L Male: 0-54 ng/L Testing performed on [employer] IM analyzer using direct chemiluminescent technology. Performed By: #### T EVELIO ####[place] [address] High Sensitivity Troponin I 611 ng/L High 0-34 [facility] ([place] Comment on above: Result Comment: High Sensitive Troponin I Reference Ranges: Female: 0-34 ng/L Male: 0-54 ng/L Testing performed on [employer] IM analyzer using direct chemiluminescent technology. Performed By: #### G FR, TROPHS, MG, HFP, LIPID, BMP ####[place] [id number] .GFRon 04-23-2024 GFR 38 ml/min/1.73sqm Normal [facility] ([place]) Comment on above: Result Comment: GFR Population mean for , Non- Americans Ages 20-29 = 116 mL/min/1.73 sq.m. Ages 30-39 = 107 mL/min/1.73 sq.m. Ages 40-49 = 99 mL/min/1.73 sq.m. Ages 50-59 = 93 mL/min/1.73 sq.m. Ages 60-69 = 85 mL/min/1.73 sq.m. Ages 70+ = 75 mL/min/1.73 sq.m. Chronic Kidney Disease: Less than 60 mL/min/1.73 square meters End Stage Renal Disease: Less than 15 mL/min/1.73 square meters Performed By: #### M DW, MORPH, TROPHS, PBNP, DIFF, LAC, CBC, BMP, GFR ####[address] [place], [place] [address] GFR Non- 31 ml/min/1.73sqm Normal [facility] ([place]) Comment on above: Result Comment: GFR Population mean for , Non- Americans Ages 20-29 = 116 mL/min/1.73 sq.m. Ages 30-39 = 107 mL/min/1.73 sq.m. Ages 40-49 = 99 mL/min/1.73 sq.m. Ages 50-59 = 93 mL/min/1.73 sq.m. Ages 60-69 = 85 mL/min/1.73 sq.m. Ages 70+ = 75 mL/min/1.73 sq.m. Chronic Kidney Disease: Less than 60 mL/min/1.73 square meters End Stage Renal Disease: Less than 15 mL/min/1.73 square meters Performed By: #### M DW, MORPH, TROPHS, PBNP, DIFF, LAC, CBC, BMP, GFR ####[address] [place], [place] [address] .MDWon 04-23-2024 Monocyte Distribution Width 23.84 High 0.00-20.00 [facility] ([place]) Comment on above: Result Comment: For adults in ED, MDW>20.0 may be associated with a higher risk of sepsis during the first 12hrs of hospital admission The predictive value of MDW for identifying sepsis in patients with hematological abnormalities has not been established Performed By: #### M DW, MORPH, TROPHS, PBNP, DIFF, LAC, CBC, BMP, GFR ####[address] [place], [place] [address] .Manual Diffon 04-23-2024 Bands 3.0 % Normal 0.0-5.0 [facility] ([place] Comment on above: Performed By: #### M DW, MORPH, TROPHS, PBNP, DIFF, LAC, CBC, BMP, GFR ####[address] [place], [place] [address] Basophil %, Manual 0.0 % Normal 0.0-2.5 [facility] ([place] Comment on above: Performed By: #### M DW, MORPH, TROPHS, PBNP, DIFF, LAC, CBC, BMP, GFR ####[address] [place], [place] [address] Basophil, Abs Manual 0.0 10 3/mcL Normal 0.0-0.2 [facility] ([place]) Comment on above: Performed By: #### M DW, MORPH, TROPHS, PBNP, DIFF, LAC, CBC, BMP, GFR ####[address] [place], [place] [address] Eosinophil %, Manual 0.0 % Normal 0.0-7.0 [facility] ([place] Comment on above: Performed By: #### M DW, MORPH, TROPHS, PBNP, DIFF, LAC, CBC, BMP, GFR ####[address] [place], [place] [address] Eosinophil, Abs Manual 0.0 10 3/mcL Normal 0.0-0.4 [facility] ([place] Comment on above: Performed By: #### M DW, MORPH, TROPHS, PBNP, DIFF, LAC, CBC, BMP, GFR ####[address] [place], [place] [address] Lymphocyte %, Manual 7.0 % Low 10.0-50.0 [facility] ([place] Comment on above: Performed By: #### M DW, MORPH, TROPHS, PBNP, DIFF, LAC, CBC, BMP, GFR ####[address] [place], [place] [address] Lymphocyte, Abs Manual 1.7 10 3/mcL Normal 0.8-3.9 [facility] ([place] Comment on above: Performed By: #### M DW, MORPH, TROPHS, PBNP, DIFF, LAC, CBC, BMP, GFR ####[address] [place], [place] [address] Monocyte %, Manual 3.0 % Normal 1.7-13.0 [facility] ([place] Comment on above: Performed By: #### M DW, MORPH, TROPHS, PBNP, DIFF, LAC, CBC, BMP, GFR ####[address] [place], [place] [address] Monocyte, Abs Manual 0.7 10 3/mcL Normal 0.2-1.0 [facility] ([place] Comment on above: Performed By: #### M DW, MORPH, TROPHS, PBNP, DIFF, LAC, CBC, BMP, GFR ####[address] [place], [place] [address] Neutrophil %, Manual 87.0 % High 37.0-80.0 [facility] ([place] Comment on above: Performed By: #### M DW, MORPH, TROPHS, PBNP, DIFF, LAC, CBC, BMP, GFR ####[address] [place], [place] [address] Neutrophil, Abs Manual 21.1 10 3/mcL High 2.9-6.2 [facility] ([place] Comment on above: Performed By: #### M DW, MORPH, TROPHS, PBNP, DIFF, LAC, CBC, BMP, GFR ####[address] [place], [place] [address] Nucleated RBC 0.0 /100 WBC Normal [facility] ([place] Comment on above: Performed By: #### M DW, MORPH, TROPHS, PBNP, DIFF, LAC, CBC, BMP, GFR ####[address] [place], [place] [address] .Morphon 04-23-2024 Anisocytosis Ql (Bld) 1+ Normal [facility] ([place] Comment on above: Performed By: #### M DW, MORPH, TROPHS, PBNP, DIFF, LAC, CBC, BMP, GFR ####[address] [place], [place] [address] Hypochrom 1+ Normal [facility] ([place] Comment on above: Performed By: #### M DW, MORPH, TROPHS, PBNP, DIFF, LAC, CBC, BMP, GFR ####[address] [place], [place] [address] Ovalocytes 1+ Normal [facility] ([place] Comment on above: Performed By: #### M DW, MORPH, TROPHS, PBNP, DIFF, LAC, CBC, BMP, GFR ####[address] [place], [place] [address] Platelet Estimate Normal Normal [facility] ([place] Comment on above: Performed By: #### M DW, MORPH, TROPHS, PBNP, DIFF, LAC, CBC, BMP, GFR ####[address] [place], [place] [id number] APTTon 04-23-2024 aPTT Coag (Bld) [Time] 30.0 s Normal 25.0-35.0 [facility] ([place]) Comment on above: Result Comment: For Heparin anticoagulation therapy, the recommended therapeutic range is: 45.4-75.9 seconds. Patients on heparin therapy may have an extreme result. Performed By: #### P RO ####Shahla [address] [place], [place] [address] Heparin dose (APTT) Unknown Normal [facility] ([place]) Comment on above: Performed By: #### P RO ####Shahla [address] [place], [place] [address] BMPon 04-23-2024 BUN/Creatinine Ratio 15 ratio Normal 7-27 [facility] ([place]) Comment on above: Performed By: #### M DW, MORPH, TROPHS, PBNP, DIFF, LAC, CBC, BMP, GFR ####Shahla [address] [place], [place] [address] Calcium [Mass/Vol] 8.6 mg/dL Normal 8.4-10.2 [facility] ([place]) Comment on above: Performed By: #### M DW, MORPH, TROPHS, PBNP, DIFF, LAC, CBC, BMP, GFR ####Shahla [address] [place], [place] [address] Chloride [Moles/Vol] 93 mmol/L Low 98-107 [facility] ([place]) Comment on above: Performed By: #### M DW, MORPH, TROPHS, PBNP, DIFF, LAC, CBC, BMP, GFR ####Shahla [address] [place], [place] [address] CO2 [Moles/Vol] 20 mmol/L Low 23-31 [facility] ([place]) Comment on above: Performed By: #### M DW, MORPH, TROPHS, PBNP, DIFF, LAC, CBC, BMP, GFR ####Shahla [address] [place], [place] [address] Creatinine [Mass/Vol] 1.62 mg/dL High 0.55-1.02 [facility] ([place]) Comment on above: Performed By: #### M DW, MORPH, TROPHS, PBNP, DIFF, LAC, CBC, BMP, GFR ####Shahla [address] [place], [place] [address] Electrolyte Balance 15.0 mEq/L Normal 4.0-15.0 [facility] ([place]) Comment on above: Performed By: #### M DW, MORPH, TROPHS, PBNP, DIFF, LAC, CBC, BMP, GFR ####Shahla [address] [place], [place] [address] Glucose [Mass/Vol] 119 mg/dL High 83-110 [facility] ([place]) Comment on above: Performed By: #### M DW, MORPH, TROPHS, PBNP, DIFF, LAC, CBC, BMP, GFR ####Shahla [address] [place], [place] [address] Potassium [Moles/Vol] 4.4 mmol/L Normal 3.5-5.1 [facility] ([place]) Comment on above: Performed By: #### M DW, MORPH, TROPHS, PBNP, DIFF, LAC, CBC, BMP, GFR ####Shahla [address] [place], [place] [address] Sodium [Moles/Vol] 128 mmol/L Low 136-145 [facility] ([place] Comment on above: Performed By: #### M DW, MORPH, TROPHS, PBNP, DIFF, LAC, CBC, BMP, GFR ####Shahla [address] [place], [place] [address] Urea nitrogen [Mass/Vol] 25 mg/dL High 7-18 [facility] ([place]) Comment on above: Performed By: #### M DW, MORPH, TROPHS, PBNP, DIFF, LAC, CBC, BMP, GFR ####Shahla [address] [place], [place] [address] CBCon 04-23-2024 Erythrocyte distribution width (RBC) [Ratio] 16.2 % High 11.5-14.5 [facility] ([place]) Comment on above: Performed By: #### M DW, MORPH, TROPHS, PBNP, DIFF, LAC, CBC, BMP, GFR ####Sh[address] [place], [place] [address] Hematocrit (Bld) [Volume fraction] 22.7 % Low 37.0-47.0 [facility] ([place]) Comment on above: Performed By: #### M DW, MORPH, TROPHS, PBNP, DIFF, LAC, CBC, BMP, GFR ####Shahla [address] [place], [place] [address] Hgb 7.6 G/dL Low 12.0-16.0 [facility] ([place]) Comment on above: Performed By: #### M DW, MORPH, TROPHS, PBNP, DIFF, LAC, CBC, BMP, GFR ####Shahla [address] [place], [place] [address] MCH (RBC) [Entitic mass] 32.3 pg High 27.0-31.2 [facility] ([place]) Comment on above: Performed By: #### M DW, MORPH, TROPHS, PBNP, DIFF, LAC, CBC, BMP, GFR ####Shahla [address] [place], [place] [address] MCHC 33.3 G/dL Normal 33.0-37.0 [facility] ([place]) Comment on above: Performed By: #### M DW, MORPH, TROPHS, PBNP, DIFF, LAC, CBC, BMP, GFR ####Shahla [address] [place], [place] [address] MCV (RBC) [Entitic vol] 96.8 fL High 80.0-94.0 [facility] ([place]) Comment on above: Performed By: #### M DW, MORPH, TROPHS, PBNP, DIFF, LAC, CBC, BMP, GFR ####Shahla [address] [place], [place] [address] Platelet 250 10 3/mcL Normal 130-400 [facility] ([place]) Comment on above: Performed By: #### M DW, MORPH, TROPHS, PBNP, DIFF, LAC, CBC, BMP, GFR ####Shahla [address] [place], [place] [address] Platelet mean volume (Bld) [Entitic vol] 9.4 fL Normal 7.4-10.4 [facility] ([place]) Comment on above: Performed By: #### M DW, MORPH, TROPHS, PBNP, DIFF, LAC, CBC, BMP, GFR ####Shahla [address] [place], [place] [address] RBC 2.35 10 6/mcL Low 4.20-5.40 [facility] ([place]) Comment on above: Performed By: #### M DW, MORPH, TROPHS, PBNP, DIFF, LAC, CBC, BMP, GFR ####Shahla [address] [place], [place] [address] WBC 23.5 10 3/mcL High 4.6-10.8 [facility] ([place]) Comment on above: Performed By: #### M DW, MORPH, TROPHS, PBNP, DIFF, LAC, CBC, BMP, GFR ####Shahla [address] [place], [place] [address] CT ANGIOGRAPHY CHEST W/CONTR [place] 04-23-2024 CT ANGIOGRAPHY CHEST W/CONTRAST ORIGINAL EXAMINATION: CTA OF THE CHEST 04/23/2024 11:05 pm TECHNIQUE: CTA of the chest was performed after the administration of intravenous contrast. Multiplanar reformatted images are provided for review. MIP images are provided for review. Automated exposure control, iterative reconstruction, and/or weight based adjustment of the mA/kV was utilized to reduce the radiation dose to as low as reasonably achievable. COMPARISON: CT PE 12/23/2019. HISTORY: ORDERING SYSTEM PROVIDED HISTORY: Reason for Exam: difficulty breathing; suspect PE FINDINGS: Pulmonary Arteries: Pulmonary arteries are adequately opacified for evaluation. The filling defect is appreciated within the right upper lobe anterior segmental branch distally.. Main pulmonary artery is normal in caliber. No evidence of right heart strain. Mediastinum: No evidence of mediastinal lymphadenopathy. The heart and pericardium demonstrate no acute abnormality. There is no acute abnormality of the thoracic aorta, which demonstrates moderate calcified atherosclerotic changes. Lungs/pleura: The tracheobronchial tree is patent without intraluminal mass or obstruction. Trace left and small right pleural effusions are appreciated with adjacent atelectasis and some right middle and lower lobe consolidation. Diffuse ground-glass opacities are appreciated throughout the bilateral lungs with scattered interlobular septal thickening. No pneumothoraces. Upper Abdomen: Limited images of the upper abdomen are unremarkable. Soft Tissues/Bones: No acute bone or soft tissue abnormality. IMPRESSION: 1. Distal right upper lobe anterior segmental pulmonary embolus. No evidence of pulmonary arterial dilation or right heart strain. 2. Small right and trace left pleural effusions with adjacent atelectasis and right lower and middle lobe consolidations. Suggest follow-up 8-12 weeks after resolution of acute symptoms to ensure resolution. Critical results were called by Dr. Luis Crump to Dr. Velasco on 04/23/2024 at 23:17. Interpreted by: Luis Crump Preliminary Report By: Luis Crump Electronically signed By Luis Crump Dictated Date: 04/23/2024 11:06:27 PM Prelim Date: 04/23/2024 11:18:34 PM Sign Date: 04/23/2024 11:18:34 PM Ordering Provider: [facility] ([place]) LABORATORYOrdered By: Isabel Julien on 04-23-2024 aPTT Coag (PPP) [Time] 30.0 s Normal 25.0 - 35.0 seconds AO [facility] SS Comment on above: Interpretive Data: F or Heparin anticoagulation therapy, the recommended therapeutic range is: 45.4-75.9 seconds. Patients on heparin therapy may have an extreme result. Heparin dose (APTT) Unknown (04/23/24 11:31 PM) Normal AO Coagulation S INR Coag (PPP) [Relative time] 1.4 {INR} Invalid Interpretation Code AO [facility] SS Comment on above: Interpretive Data: Won kendrick [employer] (CHEST, 1991, [id number]) recommended therapeutic range for oral anticoagulant therapy is: LOW RISK: Prophylaxis of venous thrombosis INR: 2.0-3.0 Treatment of pulmonary embolism 2.0-3.0 Prevention of systemic embolism 2.0-3.0 HIGH RISK: Mechanical prosthetic valves 2.5-3.5 PT Coag (PPP) [Time] 16.2 s High 9.0 - 1 4.4 seconds AO [facility] SS LABORATORYOrdered By: SYSTEM SYSTEM on 04-23-2024 Troponin I.cardiac DL <= 0.01 ng/mL [Mass/Vol] 478 ng/L High 0 - 51 ng/L AO ADM SS Comment on above: Interpretive Data: H igh Sensitive Troponin I Reference Ranges: Female: 0-51 ng/L Male: 0-76 ng/L Testing performed on [employer] using a homogeneous sandwich chemiluminescent immunoassay based on [employer] technology. Anisocytosis Ql (Bld) 1+ *NA* (04/23/24 9:31 PM) Invalid Interpretation Code AO Workflow SS Bands 3.0 % Normal 0.0 - 5.0 % AO Workflow S S Basophil %, Manual 0.0 % Normal 0.0 - 2.5 % AO Wo rkflow SS Basophil, Abs Manual 0.0 103/mcL Normal 0.0 - 0 .2 10^3/mcL AO Workflow SS Calcium [Mass/Vol] 8.6 mg/dL Normal 8.4 - 10. 2 mg/dL AO ADM SS Chloride [Moles/Vol] 93 mmol/L Low 98 - 10 7 mmol/L AO ADM SS CO2 [Moles/Vol] 20 mmol/L Low 23 - 31 mmol/L AO ADM SS Creatinine [Mass/Vol] 1.62 mg/dL High 0.55 - 1.02 mg/dL AO ADM SS Electrolyte Balance 15.0 mEq/L Normal 4.0 - 15 .0 mEq/L AO ADM SS Eosinophil %, Manual 0.0 % Normal 0.0 - 7.0 % AO Workflow SS Eosinophils (Bld) [#/Vol] 0.0 103/mcL Normal 0.0 - 0.4 10^3/mcL AO Workflow SS Erythrocyte distribution width (RBC) [Ratio] 16.2 % High 11.5 - 14.5 % AO Workflow SS GFR/1.73 sq M.predicted among blacks MDRD (S/P/Bld) [Vol rate/Area] 38 ml/min/1.73sqm Invalid Interpretation Code AO Chemistry S Comment on above: Interpretive Data: GFR Population mean for , Non- Americans Ages 20-29 = 116 mL/min/1.73 sq.m. Ages 30-39 = 107 mL/min/1.73 sq.m. Ages 40-49 = 99 mL/min/1.73 sq.m. Ages 50-59 = 93 mL/min/1.73 sq.m. Ages 60-69 = 85 mL/min/1.73 sq.m. Ages 70+ = 75 mL/min/1.73 sq.m. Chronic Kidney Disease: Less than 60 mL/min/1.73 square meters End Stage Renal Disease: Less than 15 mL/min/1.73 square meters GFR/1.73 sq M.predicted among non-blacks MDRD (S/P/Bld) [Vol rate/Area] 31 ml/min/1.73sqm Invalid Interpretation Code AO Chemistry S Comment on above: Interpretive Data: GFR Population mean for , Non- Americans Ages 20-29 = 116 mL/min/1.73 sq.m. Ages 30-39 = 107 mL/min/1.73 sq.m. Ages 40-49 = 99 mL/min/1.73 sq.m. Ages 50-59 = 93 mL/min/1.73 sq.m. Ages 60-69 = 85 mL/min/1.73 sq.m. Ages 70+ = 75 mL/min/1.73 sq.m. Chronic Kidney Disease: Less than 60 mL/min/1.73 square meters End Stage Renal Disease: Less than 15 mL/min/1.73 square meters Glucose [Mass/Vol] 119 mg/dL High 83 - 110 mg/dL AO ADM SS Hematocrit (Bld) [Volume fraction] 22.7 % Low 37.0 - 47.0 % AO Workflow SS Hemoglobin (Bld) [Mass/Vol] 7.6 G/dL Low 12.0 - 16.0 G/dL AO Workflow SS Hypochromia Ql (Bld) 1+ *NA* (04/23/24 9:31 PM) Invalid Interpretation Code AO Workflow SS Lactate [Moles/Vol] 1.9 mmol/L Normal 0.4 - 2. 0 mmol/L AO ADM SS Lymphocyte %, Manual 7.0 % Low 10.0 - 50.0 % AO Workflow SS Lymphocyte, Abs Manual 1.7 103/mcL Normal 0.8 - 3.9 10^3/mcL AO Workflow SS MCH (RBC) [Entitic mass] 32.3 pg High 27.0 - 31.2 pg AO Workflow SS MCHC 33.3 G/dL Normal 33.0 - 37.0 G/dL AO Workflow SS MCV (RBC) [Entitic vol] 96.8 fL High 80.0 - 94.0 fL AO Workflow SS Monocyte %, Manual 3.0 % Normal 1.7 - 13. 0 % AO Workflow SS Monocyte distribution width Auto (Bld) [Entitic vol] 23.84 1 High 0.00 - 20.00 AO Workflow SS Comment on above: Result Comment: For adults in ED, MDW>20.0 may be associated with a higher risk of sepsis during the first 12hrs of hospital admission The predictive value of MDW for identifying sepsis in patients with hematological abnormalities has not been established Monocyte, Abs Manual 0.7 103/mcL Normal 0.2 - 1 .0 10^3/mcL AO Workflow SS Natriuretic peptide.B prohormone N-Terminal [Mass/Vol] 73918 pg/mL High 0 - 125 pg/mL AO ADM SS Comment on above: Interpretive Data: N T-proBNP results of less than 300 pg/mL effectively rules out acute congestive heart failure with 99% negative predictive value. Neutrophil %, Manual 87.0 % High 37.0 - 80.0 % AO Workflow SS Neutrophil, Abs Manual 21.1 103/mcL High 2.9 - 6.2 10^3/mcL AO Workflow SS Nucleated RBC 0.0 /100 WBC Invalid Interpretation Code AO Workflow SS Ovalocytes LM Ql (Bld) 1+ *NA* (04/23/24 9:31 PM) Invalid Interpretation Code AO Workflow SS Platelet Estimate Normal *NA* (04/23/24 9:31 PM) Invalid Interpretation Code AO Workflow SS Platelet mean volume (Bld) [Entitic vol] 9.4 fL Normal 7.4 - 10.4 fL AO Workflow SS Platelets (Bld) [#/Vol] 250 103/mcL Normal 130 - 400 10^3/mcL AO Workflow SS Potassium [Moles/Vol] 4.4 mmol/L Normal 3.5 - 5.1 mmol/L AO ADM SS RBC (Bld) [#/Vol] 2.35 106/mcL Low 4.20 - 5.4 0 10^6/mcL AO Workflow SS Sodium [Moles/Vol] 128 mmol/L Low 136 - 145 mmol/L AO ADM SS Troponin I.cardiac DL <= 0.01 ng/mL [Mass/Vol] 468 ng/L High 0 - 51 ng/L AO ADM SS Comment on above: Interpretive Data: H igh Sensitive Troponin I Reference Ranges: Female: 0-51 ng/L Male: 0-76 ng/L Testing performed on [employer] using a homogeneous sandwich chemiluminescent immunoassay based on [employer] technology. Urea nitrogen [Mass/Vol] 25 mg/dL High 7 - 18 mg/dL AO ADM SS Urea nitrogen/Creatinine [Mass ratio] 15 ratio Normal 7 - 27 ratio AO ADM SS WBC (Bld) [#/Vol] 23.5 103/mcL High 4.6 - 10.8 10^3/mcL AO Workflow SS LABORATORYOrdered By: Fabienne Moraes on 04-23-2024 ACINETOBACTER CALCOACETICUS-TONE JOCE COMPLEX DNA:PRTHR:PT:BLD.POS GROWTH:ORD:NON-PROBE .AMP.TAR Not Detected *NA* (04/23/24 9:31 PM) Invalid Interpretation Code Not Detected AH Auto Microbiology GL SS BACTERIAL METHICILLIN RESISTANCE MECA+MECC GENES+SCCMEC+ORFX JUNCTION:PRTHR:PT:IS OLATE/SPECIMEN:ORD:M OLGEN Not Applicable *NA* (04/23/24 9:31 PM) Invalid Interpretation Code Not Detected AH Auto Microbiology GL SS BACTEROIDES FRAGILIS DNA:PRTHR:PT:BLD.POS GROWTH:ORD:NON-PROBE .AMP.TAR Not Detected *NA* (04/23/24 9:31 PM) Invalid Interpretation Code Not Detected AH Auto Microbiology GL SS BCID Comment See Comment 2 (04/23/24 9:31 PM) Normal AH Auto Microbiology GL SS Comment on above: Interpretive Data: A ntimicrobial resistance can occur via multiple mechanisms. A Not Detected result for antimicrobial resistance gene(s) does not indicate antimicrobial susceptibility. Culture identification and susceptibility results to follow. If BCID panel was negative ( Not Detected ) for all targets, this does not exclude a blood stream infection. Our blood culture system detected growth. Culture identification and susceptibility testing (if appropriate) to follow. C. albicans DNA TL+non-probe Ql (Pos bld culture) Not Detected *NA* (04/23/24 9:31 PM) Invalid Interpretation Code Not Detected AH Auto Microbiology GL SS C. glabrata DNA TL+non-probe Ql (Pos bld culture) Not Detected *NA* (04/23/24 9:31 PM) Invalid Interpretation Code Not Detected AH Auto Microbiology GL SS C. krusei DNA TL+non-probe Ql (Pos bld culture) Not Detected *NA* (04/23/24 9:31 PM) Invalid Interpretation Code Not Detected AH Auto Microbiology GL SS C. parapsilosis DNA TL+non-probe Ql (Pos bld culture) Not Detected *NA* (04/23/24 9:31 PM) Invalid Interpretation Code Not Detected AH Auto Microbiology GL SS C. tropicalis DNA TL+non-probe Ql (Pos bld culture) Not Detected *NA* (04/23/24 9:31 PM) Invalid Interpretation Code Not Detected AH Auto Microbiology GL SS VIRGINIE AURIS DNA:PRTHR:PT:BLD.POS GROWTH:ORD:NON-PROBE .AMP.TAR Not Detected *NA* (04/23/24 9:31 PM) Invalid Interpretation Code Not Detected AH Auto Microbiology GL SS Carbapenem resistance jun OXA-48-like gene Molgen Ql (Islt/Spec) Not Detected *NA* (04/23/24 9:31 PM) Invalid Interpretation Code Not Detected AH Auto Microbiology GL SS Carbapenem resistance blaIMP gene Molgen Ql (Islt/Spec) Not Detected *NA* (04/23/24 9:31 PM) Invalid Interpretation Code Not Detected AH Auto Microbiology GL SS Carbapenem resistance blaKPC gene Molgen Ql (Islt/Spec) Not Detected *NA* (04/23/24 9:31 PM) Invalid Interpretation Code Not Detected AH Auto Microbiology GL SS Carbapenem resistance blaNDM gene Molgen Ql (Islt/Spec) Not Detected *NA* (04/23/24 9:31 PM) Invalid Interpretation Code Not Detected AH Auto Microbiology GL SS Carbapenem resistance blaVIM gene Molgen Ql (Islt/Spec) Not Detected *NA* (04/23/24 9:31 PM) Invalid Interpretation Code Not Detected AH Auto Microbiology GL SS Cephalosporin resistance jun(CTX-M) gene [employer]gen Ql (Islt/Spec) Not Detected *NA* (04/23/24 9:31 PM) Invalid Interpretation Code Not Detected AH Auto Microbiology GL SS Colistin resistance mcr-1 gene Molgen Ql (Islt/Spec) Not Detected *NA* (04/23/24 9:31 PM) Invalid Interpretation Code Not Detected AH Auto Microbiology GL SS CRYPTOCOCCUS GATTII+NEOFORMANS DNA:PRTHR:PT:BLD.POS GROWTH:ORD:NON-PROBE .AMP.TAR Not Detected *NA* (04/23/24 9:31 PM) Invalid Interpretation Code Not Detected AH Auto Microbiology GL SS E. cloacae complex DNA TL+non-probe Ql (Pos bld culture) Not Detected *NA* (04/23/24 9:31 PM) Invalid Interpretation Code Not Detected AH Auto Microbiology GL SS E. coli DNA TL+non-probe Ql (Pos bld culture) Detected *ABN* (04/23/24 9:31 PM) Invalid Interpretation Code Not Detected AH Auto Microbiology GL SS ENTEROBACTERALES DNA:PRTHR:PT:BLD.POS GROWTH:ORD:NON-PROBE .AMP.TAR Detected *ABN* (04/23/24 9:31 PM) Invalid Interpretation Code Not Detected AH Auto Microbiology GL SS ENTEROCOCCUS FAECALIS DNA:PRTHR:PT:BLD.POS GROWTH:ORD:NON-PROBE .AMP.TAR Not Detected *NA* (04/23/24 9:31 PM) Invalid Interpretation Code Not Detected AH Auto Microbiology GL SS ENTEROCOCCUS FAECIUM DNA:PRTHR:PT:BLD.POS GROWTH:ORD:NON-PROBE .AMP.TAR Not Detected *NA* (04/23/24 9:31 PM) Invalid Interpretation Code Not Detected AH Auto Microbiology GL SS H. influenzae DNA TL+non-probe Ql (Pos bld culture) Not Detected *NA* (04/23/24 9:31 PM) Invalid Interpretation Code Not Detected AH Auto Microbiology GL SS K. oxytoca DNA TL+non-probe Ql (Pos bld culture) Not Detected *NA* (04/23/24 9:31 PM) Invalid Interpretation Code Not Detected AH Auto Microbiology GL SS KLEBSIELLA AEROGENES DNA:PRTHR:PT:BLD.POS GROWTH:ORD:NON-PROBE .AMP.TAR Not Detected *NA* (04/23/24 9:31 PM) Invalid Interpretation Code Not Detected AH Auto Microbiology GL SS KLEBSIELLA PNEUMONIAE+KLEBSIELL A VARIICOLA+KLEBSIELLA QUASIPNEUMONIAE DNA:PRTHR:PT:BLD.POS GROWTH:ORD:NON-PROBE .AMP.TAR Not Detected *NA* (04/23/24 9:31 PM) Invalid Interpretation Code Not Detected AH Auto Microbiology GL SS L. monocytogenes DNA TL+non-probe Ql (Pos bld culture) Not Detected *NA* (04/23/24 9:31 PM) Invalid Interpretation Code Not Detected AH Auto Microbiology GL SS Methicillin resistance mecA+mecC genes Molgen Ql (Islt/Spec) Not Applicable *NA* (04/23/24 9:31 PM) Invalid Interpretation Code Not Detected AH Auto Microbiology GL SS N. meningitidis DNA TL+non-probe Ql (Pos bld culture) Not Detected *NA* (04/23/24 9:31 PM) Invalid Interpretation Code Not Detected AH Auto Microbiology GL SS P. aeruginosa DNA TL+non-probe Ql (Pos bld culture) Not Detected *NA* (04/23/24 9:31 PM) Invalid Interpretation Code Not Detected AH Auto Microbiology GL SS Proteus sp DNA TL+non-probe Ql (Pos bld culture) Not Detected *NA* (04/23/24 9:31 PM) Invalid Interpretation Code Not Detected AH Auto Microbiology GL SS S. agalactiae DNA TL+non-probe Ql (Pos bld culture) Not Detected *NA* (04/23/24 9:31 PM) Invalid Interpretation Code Not Detected AH Auto Microbiology GL SS S. aureus DNA TL+non-probe Ql (Pos bld culture) Not Detected 3 *NA* (04/23/24 9:31 PM) Invalid Interpretation Code Not Detected AH Auto Microbiology GL SS Comment on above: Interpretive Data: I f Staphylococcus aureus is Detected , an Infectious Disease physician consult is required on identification. S. marcescens DNA TL+non-probe Ql (Pos bld culture) Not Detected *NA* (04/23/24 9:31 PM) Invalid Interpretation Code Not Detected AH Auto Microbiology GL SS S. pneumoniae DNA TL+non-probe Ql (Pos bld culture) Not Detected *NA* (04/23/24 9:31 PM) Invalid Interpretation Code Not Detected AH Auto Microbiology GL SS S. pyogenes DNA TL+non-probe Ql (Pos bld culture) Not Detected *NA* (04/23/24 9:31 PM) Invalid Interpretation Code Not Detected AH Auto Microbiology GL SS SALMONELLA SP DNA:PRTHR:PT:BLD.POS GROWTH:ORD:NON-PROBE .AMP.TAR Not Detected *NA* (04/23/24 9:31 PM) Invalid Interpretation Code Not Detected AH Auto Microbiology GL SS STAPHYLOCOCCUS EPIDERMIDIS DNA:PRTHR:PT:BLD.POS GROWTH:ORD:NON-PROBE .AMP.TAR Not Detected *NA* (04/23/24 9:31 PM) Invalid Interpretation Code Not Detected AH Auto Microbiology GL SS STAPHYLOCOCCUS LUGDUNENSIS DNA:PRTHR:PT:BLD.POS GROWTH:ORD:NON-PROBE .AMP.TAR Not Detected *NA* (04/23/24 9:31 PM) Invalid Interpretation Code Not Detected AH Auto Microbiology GL SS Staphylococcus sp DNA TL+non-probe Ql (Pos bld culture) Not Detected *NA* (04/23/24 9:31 PM) Invalid Interpretation Code Not Detected AH Auto Microbiology GL SS STENOTROPHOMONAS MALTOPHILIA DNA:PRTHR:PT:BLD.POS GROWTH:ORD:NON-PROBE .AMP.TAR Not Detected *NA* (04/23/24 9:31 PM) Invalid Interpretation Code Not Detected AH Auto Microbiology GL SS Streptococcus sp DNA TL+non-probe Ql (Pos bld culture) Not Detected *NA* (04/23/24 9:31 PM) Invalid Interpretation Code Not Detected AH Auto Microbiology GL SS Vancomycin resistance Colleen + vanB genes [employer]gen Ql (Islt/Spec) Not Applicable *NA* (04/23/24 9:31 PM) Invalid Interpretation Code Not Detected AH Auto Microbiology GL SS LACon 04-23-2024 Lactic Acid Lvl 1.9 mmol/L Normal 0.4-2.0 [facility] ([place]) Comment on above: Performed By: #### M DW, MORPH, TROPHS, PBNP, DIFF, LAC, CBC, BMP, GFR ####Shahla [address] [place] [id number] No Panel Informationon 04-23 GSANA Gram Negative [facility] Microscopic examination of blood, culture Culture has been received in lab and is no growth to date. Routine cultures are held for 5 days. [facility] PBNPon 04-23-2024 Natriuretic peptide B (Bld) [Mass/Vol] 59495 pg/mL High 0-125 [facility] ([place]) Comment on above: Result Comment: NT-p roBNP results of less than 300 pg/mL effectively rules out acute congestive heart failure with 99% negative predictive value. Performed By: #### M DW, MORPH, TROPHS, PBNP, DIFF, LAC, CBC, BMP, GFR ####Shahla [address] [place], [place] [address] PROon 04-23-2024 PT Coag (PPP) [Time] 16.2 s High 9.0-14.4 [facility] ([place]) Comment on above: Performed By: #### P RO ####[place] [address] [place], [place] [address] PT International Ratio 1.4 Normal [facility] ([place]) Comment on above: Result Comment: [employer] (CHEST, 1992, 102:[id number]) recommended therapeutic range for oral anticoagulant therapy is: LOW RISK: Prophylaxis of venous thrombosis INR: 2.0-3.0 Treatment of pulmonary embolism 2.0-3.0 Prevention of systemic embolism 2.0-3.0 HIGH RISK: Mechanical prosthetic valves 2.5-3.5 Performed By: #### P RO ####[place] [address] [place], [place] [address] TROPHSon 04-23-2024 High Sensitivity Troponin I 478 ng/L High 0-51 [facility] ([place]) Comment on above: Result Comment: High Sensitive Troponin I Reference Ranges: Female: 0-51 ng/L Male: 0-76 ng/L Testing performed on [employer] using a homogeneous sandwich chemiluminescent immunoassay based on [employer] technology. Performed By: #### T ROPHS ####[place] [address] [place], [place] [address] High Sensitivity Troponin I 468 ng/L High 0-51 [facility] ([place]) Comment on above: Result Comment: High Sensitive Troponin I Reference Ranges: Female: 0-51 ng/L Male: 0-76 ng/L Testing performed on [employer] using a homogeneous sandwich chemiluminescent immunoassay based on [employer] technology. Performed By: #### M DW, MORPH, TROPHS, PBNP, DIFF, LAC, CBC, BMP, GFR ####Shahla [address] [place], [place] [address] XR CHEST 1 VIEWon 04-23-2024 XR CHEST 1 VIEW ORIGINAL EXAMINATION: ONE XRAY VIEW OF THE CHEST 04/23/2024 9:42 pm COMPARISON: Radiograph of the chest April 19, 2024 HISTORY: ORDERING SYSTEM PROVIDED HISTORY: Reason for Exam: sob FINDINGS: Cardiomediastinal silhouette is unchanged in size. Costophrenic angles are sharp. No radiographic pneumothorax. Lower lung field opacities and atelectasis. Osseous structures grossly unchanged. IMPRESSION: Lower lung field opacities and atelectasis. If concern for pneumonia, findings could be related. Correlate clinically and follow-up to resolution. Interpreted by: Antoni West Preliminary Report By: Antoni West Electronically signed By Antoni West Dictated Date: 04/23/2024 9:48:31 PM Prelim Date: 04/23/2024 9:49:22 PM Sign Date: 04/23/2024 9:49:22 PM Ordering Provider: [place] [facility] ([place]) .Auto Diffon 04-21-2024 Basophil, Absolute 0.0 10 3/mcL Normal 0.0-0.2 [facility] ([place]) Comment on above: Performed By: #### B 12 ####[address] [address]#### GFR, CBC, ANEU, BMP, MG, ADIFF ####Shahla [address] [place], [place] [address] Basophils/100 WBC (Bld) 0.3 % Normal 0.0-2.5 [facility] ([place]) Comment on above: Performed By: #### B 12 ####[address] [address]#### GFR, CBC, ANEU, BMP, MG, ADIFF ####[facility] [place], [place] [address] Eosinophil, Absolute 0.0 10 3/mcL Normal 0.0-0.4 [facility] ([place]) Comment on above: Performed By: #### B 12 ####[place] [address]#### GFR, CBC, ANEU, BMP, MG, ADIFF ####[facility] [place], [place] [address] Eosinophils/100 WBC (Bld) 0.4 % Normal 0.0-7.0 [facility] ([place]) Comment on above: Performed By: #### B 12 ####[place] [address]#### GFR, CBC, ANEU, BMP, MG, ADIFF ####[address] [address] Lymphocyte, Absolute 0.8 10 3/mcL Normal 0.8-3.9 [facility] ([place]) Comment on above: Performed By: #### B 12 ####[place] [address]#### GFR, CBC, ANEU, BMP, MG, ADIFF ####[address] [address] Lymphocytes/100 WBC (Bld) 7.6 % Low 10.0-50.0 [facility] ([place]) Comment on above: Performed By: #### B 12 ####[place] [address]#### GFR, CBC, ANEU, BMP, MG, ADIFF ####[facility] [place], [place] [address] Monocyte, Absolute 1.0 10 3/mcL Normal 0.2-1.0 [facility] ([place]) Comment on above: Performed By: #### B 12 ####[place] [address]#### GFR, CBC, ANEU, BMP, MG, ADIFF ####[address] [address] Monocytes/100 WBC (Bld) 8.8 % Normal 1.7-13.0 [facility] ([place]) Comment on above: Performed By: #### B 12 ####[address] [address]#### GFR, CBC, ANEU, BMP, MG, ADIFF ####Shahla [address] [place], [place] [address] Neutrophils/100 WBC (Bld) 82.9 % High 37.0-80.0 [facility] ([place]) Comment on above: Performed By: #### B 12 ####[address] [address]#### GFR, CBC, ANEU, BMP, MG, ADIFF ####[facility] [place], [place] [address] .GFRon 04-21-2024 GFR Non- 48 ml/min/1.73sqm Normal [facility] ([place]) Comment on above: Result Comment: GFR Population mean for , Non- Americans Ages 20-29 = 116 mL/min/1.73 sq.m. Ages 30-39 = 107 mL/min/1.73 sq.m. Ages 40-49 = 99 mL/min/1.73 sq.m. Ages 50-59 = 93 mL/min/1.73 sq.m. Ages 60-69 = 85 mL/min/1.73 sq.m. Ages 70+ = 75 mL/min/1.73 sq.m. Chronic Kidney Disease: Less than 60 mL/min/1.73 square meters End Stage Renal Disease: Less than 15 mL/min/1.73 square meters Performed By: #### B 12 ####[address] [address]#### GFR, CBC, ANEU, BMP, MG, ADIFF ####[facility] [place], [place] [address] GFR 58 ml/min/1.73sqm Normal [facility] ([place]) Comment on above: Result Comment: GFR Population mean for , Non- Americans Ages 20-29 = 116 mL/min/1.73 sq.m. Ages 30-39 = 107 mL/min/1.73 sq.m. Ages 40-49 = 99 mL/min/1.73 sq.m. Ages 50-59 = 93 mL/min/1.73 sq.m. Ages 60-69 = 85 mL/min/1.73 sq.m. Ages 70+ = 75 mL/min/1.73 sq.m. Chronic Kidney Disease: Less than 60 mL/min/1.73 square meters End Stage Renal Disease: Less than 15 mL/min/1.73 square meters Performed By: #### B 12 ####[address] [address]#### GFR, CBC, ANEU, BMP, MG, ADIFF ####[place] [address] [place], [place] [address] .NEUABSon 04-21-2024 Neutrophil, Absolute 9.2 10 3/mcL High 2.9-6.2 [facility] ([place]) Comment on above: Performed By: #### B 12 ####[place] [address]#### GFR, CBC, ANEU, BMP, MG, ADIFF ####[place] [address] [place], [place] [address] B12on 04-21-2024 Cobalamin (Vitamin B12) [Mass/Vol] 1197 pg/mL High 211-911 [facility] ([place]) Comment on above: Performed By: #### B 12 ####[place] [address]#### GFR, CBC, ANEU, BMP, MG, ADIFF ####[place] [address] [place], [place] [address] BMPon 04-21-2024 BUN/Creatinine Ratio 17 ratio Normal 7-27 [facility] ([place]) Comment on above: Performed By: #### B 12 ####[address] [address]#### GFR, CBC, ANEU, BMP, MG, ADIFF ####[place] [address] [place], [place] [address] Calcium [Mass/Vol] 8.3 mg/dL Low 8.4-10.2 [facility] ([place]) Comment on above: Performed By: #### B 12 ####[place] [address]#### GFR, CBC, ANEU, BMP, MG, ADIFF ####[place] [address] [place], [place] [address] Chloride [Moles/Vol] 102 mmol/L Normal 98-107 [facility] ([place]) Comment on above: Performed By: #### B 12 ####[place] [address]#### GFR, CBC, ANEU, BMP, MG, ADIFF ####[place] [address] [place] [address] CO2 [Moles/Vol] 21 mmol/L Low 23-31 [facility] ([place]) Comment on above: Performed By: #### B 12 ####[place] [address]#### GFR, CBC, ANEU, BMP, MG, ADIFF ####[place] [address] [place], [place] [address] Creatinine [Mass/Vol] 1.13 mg/dL High 0.55-1.02 [facility] ([place]) Comment on above: Performed By: #### B 12 ####[place] [address]#### GFR, CBC, ANEU, BMP, MG, ADIFF ####[place] [address] [place], [place] [address] Electrolyte Balance 11.0 mEq/L Normal 4.0-15.0 [facility] ([place]) Comment on above: Performed By: #### B 12 ####[place] [address]#### GFR, CBC, ANEU, BMP, MG, ADIFF ####[place] [address] [place], [place] [address] Glucose [Mass/Vol] 91 mg/dL Normal 83-110 [facility] ([place]) Comment on above: Performed By: #### B 12 ####[place] [address]#### GFR, CBC, ANEU, BMP, MG, ADIFF ####[place] [place], [place] [address] Potassium [Moles/Vol] 4.1 mmol/L Normal 3.5-5.1 [facility] ([place]) Comment on above: Performed By: #### B 12 ####[place] [address]#### GFR, CBC, ANEU, BMP, MG, ADIFF ####Sh[place]la [address] [place], [place] [address] Sodium [Moles/Vol] 134 mmol/L Low 136-145 [facility] ([place]) Comment on above: Performed By: #### B 12 ####[place] [address]#### GFR, CBC, ANEU, BMP, MG, ADIFF ####[place] [address] [place], [place] [address] Urea nitrogen [Mass/Vol] 19 mg/dL High 7-18 [facility] ([place]) Comment on above: Performed By: #### B 12 ####[place] [address]#### GFR, CBC, ANEU, BMP, MG, ADIFF ####[place] [address] [place], [place] [address] CBCon 04-21-2024 Erythrocyte distribution width (RBC) [Ratio] 16.4 % High 11.5-14.5 [facility] ([place]) Comment on above: Performed By: #### B 12 ####[place] [address]#### GFR, CBC, ANEU, BMP, MG, ADIFF ####Sh[place] [address] [place], [place] [address] Hematocrit (Bld) [Volume fraction] 23.8 % Low 37.0-47.0 [facility] ([place]) Comment on above: Performed By: #### B 12 ####[place] [address]#### GFR, CBC, ANEU, BMP, MG, ADIFF ####[place] [address] [place], [place] [address] Hgb 8.1 G/dL Low 12.0-16.0 [facility] ([place] Comment on above: Performed By: #### B 12 ####[place] [address]#### GFR, CBC, ANEU, BMP, MG, ADIFF ####[place] [address] [place], [place] [address] MCH (RBC) [Entitic mass] 32.5 pg High 27.0-31.2 [facility] ([place]) Comment on above: Performed By: #### B 12 ####[place] [address]#### GFR, CBC, ANEU, BMP, MG, ADIFF ####[facility] [place] [id number] MCHC 33.8 G/dL Normal 33.0-37.0 [facility] ([place]) Comment on above: Performed By: #### B 12 ####[place] [address]#### GFR, CBC, ANEU, BMP, MG, ADIFF ####[facility] [place], [place] [address] MCV (RBC) [Entitic vol] 96.1 fL High 80.0-94.0 [facility] ([place]) Comment on above: Performed By: #### B 12 ####[place] [address]#### GFR, CBC, ANEU, BMP, MG, ADIFF ####[facility] [place] [id number] Platelet 170 10 3/mcL Normal 130-400 [facility] ([place]) Comment on above: Performed By: #### B 12 ####[place] [address]#### GFR, CBC, ANEU, BMP, MG, ADIFF ####Sh[place]la [address] [place], [place] [address] Platelet mean volume (Bld) [Entitic vol] 9.3 fL Normal 7.4-10.4 [facility] ([place]) Comment on above: Performed By: #### B 12 ####[place] [address]#### GFR, CBC, ANEU, BMP, MG, ADIFF ####[place] [address] [place] [address] RBC 2.48 10 6/mcL Low 4.20-5.40 [facility] ([place]) Comment on above: Performed By: #### B 12 ####[place] [address]#### GFR, CBC, ANEU, BMP, MG, ADIFF ####[place] [address] [place] [address] WBC 11.1 10 3/mcL High 4.6-10.8 [facility] ([place]) Comment on above: Performed By: #### B 12 ####[place] [address]#### GFR, CBC, ANEU, BMP, MG, ADIFF ####[place] [address] [place] [address] LABORATORYOrdered By: SYSTEM SYSTEM on 04-21-2024 Basophil, Absolute 0.0 103/mcL Normal 0.0 - 0.2 10^3/mcL AO Workflow SS Basophils/100 WBC (Bld) 0.3 % Normal 0.0 - 2.5 % AO Workflow SS Cobalamin (Vitamin B12) [Mass/Vol] 1197 pg/mL High 211 - 911 pg/mL AH ADM SS Eosinophil, Absolute 0.0 103/mcL Normal 0.0 - 0 .4 10^3/mcL AO Workflow SS Eosinophils/100 WBC (Bld) 0.4 % Normal 0.0 - 7.0 % AO Workflow SS Erythrocyte distribution width (RBC) [Ratio] 16.4 % High 11.5 - 14.5 % AO Workflow SS GFR/1.73 sq M.predicted among blacks MDRD (S/P/Bld) [Vol rate/Area] 58 ml/min/1.73sqm Invalid Interpretation Code AO Chemistry S Comment on above: Interpretive Data: GFR Population mean for , Non- Americans Ages 20-29 = 116 mL/min/1.73 sq.m. Ages 30-39 = 107 mL/min/1.73 sq.m. Ages 40-49 = 99 mL/min/1.73 sq.m. Ages 50-59 = 93 mL/min/1.73 sq.m. Ages 60-69 = 85 mL/min/1.73 sq.m. Ages 70+ = 75 mL/min/1.73 sq.m. Chronic Kidney Disease: Less than 60 mL/min/1.73 square meters End Stage Renal Disease: Less than 15 mL/min/1.73 square meters GFR/1.73 sq M.predicted among non-blacks MDRD (S/P/Bld) [Vol rate/Area] 48 ml/min/1.73sqm Invalid Interpretation Code AO Chemistry S Comment on above: Interpretive Data: GFR Population mean for , Non- Americans Ages 20-29 = 116 mL/min/1.73 sq.m. Ages 30-39 = 107 mL/min/1.73 sq.m. Ages 40-49 = 99 mL/min/1.73 sq.m. Ages 50-59 = 93 mL/min/1.73 sq.m. Ages 60-69 = 85 mL/min/1.73 sq.m. Ages 70+ = 75 mL/min/1.73 sq.m. Chronic Kidney Disease: Less than 60 mL/min/1.73 square meters End Stage Renal Disease: Less than 15 mL/min/1.73 square meters Hematocrit (Bld) [Volume fraction] 23.8 % Low 37.0 - 47.0 % AO Workflow SS Hemoglobin (Bld) [Mass/Vol] 8.1 G/dL Low 12.0 - 16.0 G/dL AO Workflow SS Lymphocyte, Absolute 0.8 103/mcL Normal 0.8 - 3 .9 10^3/mcL AO Workflow SS Lymphocytes/100 WBC (Bld) 7.6 % Low 10.0 - 50.0 % AO Workflow SS MCH (RBC) [Entitic mass] 32.5 pg High 27.0 - 31.2 pg AO Workflow SS MCHC 33.8 G/dL Normal 33.0 - 37.0 G/dL AO Workflow SS MCV (RBC) [Entitic vol] 96.1 fL High 80.0 - 94.0 fL AO Workflow SS Monocyte, Absolute 1.0 103/mcL Normal 0.2 - 1.0 10^3/mcL AO Workflow SS Monocytes/100 WBC (Bld) 8.8 % Normal 1.7 - 13.0 % AO Workflow SS Neutrophil, Absolute 9.2 103/mcL High 2.9 - 6 .2 10^3/mcL AO Workflow SS Neutrophils/100 WBC (Bld) 82.9 % High 37.0 - 80.0 % AO Workflow SS Platelet mean volume (Bld) [Entitic vol] 9.3 fL Normal 7.4 - 10.4 fL AO Workflow SS Platelets (Bld) [#/Vol] 170 103/mcL Normal 130 - 400 10^3/mcL AO Workflow SS RBC (Bld) [#/Vol] 2.48 106/mcL Low 4.20 - 5.4 0 10^6/mcL AO Workflow SS WBC (Bld) [#/Vol] 11.1 103/mcL High 4.6 - 10.8 10^3/mcL AO Workflow SS LABORATORYOrdered By: Komal Vega on 04-21-2024 Calcium [Mass/Vol] 8.3 mg/dL Low 8.4 - 10. 2 mg/dL AO Chemistry S Chloride [Moles/Vol] 102 mmol/L Normal 98 - 10 7 mmol/L AO Chemistry S CO2 [Moles/Vol] 21 mmol/L Low 23 - 31 mmol/L AO Chemistry S Creatinine [Mass/Vol] 1.13 mg/dL High 0.55 - 1.02 mg/dL AO Chemistry S Electrolyte Balance 11.0 mEq/L Normal 4.0 - 15 .0 mEq/L AO Chemistry S Glucose [Mass/Vol] 91 mg/dL Normal 83 - 110 mg/dL AO Chemistry S Magnesium [Mass/Vol] 1.8 mg/dL Normal 1.8 - 2 .4 mg/dL AO Chemistry S Potassium [Moles/Vol] 4.1 mmol/L Normal 3.5 - 5.1 mmol/L AO Chemistry S Sodium [Moles/Vol] 134 mmol/L Low 136 - 145 mmol/L AO Chemistry S Urea nitrogen [Mass/Vol] 19 mg/dL High 7 - 18 mg/dL AO Chemistry S Urea nitrogen/Creatinine [Mass ratio] 17 ratio Normal 7 - 27 ratio AO Chemistry S MGon 04-21-2024 Magnesium [Mass/Vol] 1.8 mg/dL Normal 1.8-2.4 [facility] ([place]) Comment on above: Performed By: #### B 12 ####[address] [address]#### GFR, CBC, ANEU, BMP, MG, ADIFF ####[facility] [place], [place] [address] .Auto Diffon 04-20-2024 Basophil, Absolute 0.0 10 3/mcL Normal 0.0-0.2 [facility] ([place]) Comment on above: Performed By: #### R BCP #### [address] [address] Basophils/100 WBC (Bld) 0.2 % Normal 0.0-2.5 [facility] ([place]) Comment on above: Performed By: #### R BCP #### [address] [address] Eosinophil, Absolute 0.0 10 3/mcL Normal 0.0-0.4 [facility] ([place]) Comment on above: Performed By: #### R BCP #### [address] [address] Eosinophils/100 WBC (Bld) 0.0 % Normal 0.0-7.0 [facility] ([place]) Comment on above: Performed By: #### R BCP #### [address] [address] Lymphocyte, Absolute 1.0 10 3/mcL Normal 0.8-3.9 [facility] ([place]) Comment on above: Performed By: #### R BCP #### [address] [address] Lymphocytes/100 WBC (Bld) 8.7 % Low 10.0-50.0 [facility] ([place]) Comment on above: Performed By: #### R BCP #### [address] [address] Monocyte, Absolute 1.0 10 3/mcL Normal 0.2-1.0 [facility] ([place]) Comment on above: Performed By: #### R BCP #### [address] [address] Monocytes/100 WBC (Bld) 8.8 % Normal 1.7-13.0 [facility] ([place]) Comment on above: Performed By: #### R BCP #### [address] [address] Neutrophils/100 WBC (Bld) 82.3 % High 37.0-80.0 [facility] ([place]) Comment on above: Performed By: #### R BCP #### [address] [address] .GFRon 04-20-2024 GFR 53 ml/min/1.73sqm Normal [facility] ([place]) Comment on above: Result Comment: GFR Population mean for , Non- Americans Ages 20-29 = 116 mL/min/1.73 sq.m. Ages 30-39 = 107 mL/min/1.73 sq.m. Ages 40-49 = 99 mL/min/1.73 sq.m. Ages 50-59 = 93 mL/min/1.73 sq.m. Ages 60-69 = 85 mL/min/1.73 sq.m. Ages 70+ = 75 mL/min/1.73 sq.m. Chronic Kidney Disease: Less than 60 mL/min/1.73 square meters End Stage Renal Disease: Less than 15 mL/min/1.73 square meters Performed By: #### R BCP #### [address] [address] GFR Non- 44 ml/min/1.73sqm Normal [facility] ([place]) Comment on above: Result Comment: GFR Population mean for , Non- Americans Ages 20-29 = 116 mL/min/1.73 sq.m. Ages 30-39 = 107 mL/min/1.73 sq.m. Ages 40-49 = 99 mL/min/1.73 sq.m. Ages 50-59 = 93 mL/min/1.73 sq.m. Ages 60-69 = 85 mL/min/1.73 sq.m. Ages 70+ = 75 mL/min/1.73 sq.m. Chronic Kidney Disease: Less than 60 mL/min/1.73 square meters End Stage Renal Disease: Less than 15 mL/min/1.73 square meters Performed By: #### R BCP #### [address] [address] .NEUABSon 04-20-2024 Neutrophil, Absolute 9.2 10 3/mcL High 2.9-6.2 [facility] ([place]) Comment on above: Performed By: #### R BCP #### [place] [id number] BMPon 04-20-2024 BUN/Creatinine Ratio 18 ratio Normal 7-27 [facility] ([place]) Comment on above: Performed By: #### R BCP #### [place] [id number] Calcium [Mass/Vol] 8.4 mg/dL Normal 8.4-10.2 [facility] ([place]) Comment on above: Performed By: #### R BCP #### [address] [address] Chloride [Moles/Vol] 95 mmol/L Low 98-107 [facility] ([place]) Comment on above: Performed By: #### R BCP #### [place] [id number] CO2 [Moles/Vol] 22 mmol/L Low 23-31 [facility] ([place]) Comment on above: Performed By: #### R BCP #### [address] [address] Creatinine [Mass/Vol] 1.22 mg/dL High 0.55-1.02 [facility] ([place]) Comment on above: Performed By: #### R BCP #### [place] [id number] Electrolyte Balance 11.0 mEq/L Normal 4.0-15.0 [facility] ([place]) Comment on above: Performed By: #### R BCP #### [address] [address] Glucose [Mass/Vol] 91 mg/dL Normal 83-110 [facility] ([place]) Comment on above: Performed By: #### R BCP #### [place] [id number] Potassium [Moles/Vol] 3.8 mmol/L Normal 3.5-5.1 [facility] ([place]) Comment on above: Performed By: #### R BCP #### [address] [address] Sodium [Moles/Vol] 128 mmol/L Low 136-145 [facility] ([place]) Comment on above: Performed By: #### R BCP #### [place] [id number] Urea nitrogen [Mass/Vol] 22 mg/dL High 7-18 [facility] ([place]) Comment on above: Performed By: #### R BCP #### [place] [id number] CBCon 04-20-2024 Erythrocyte distribution width (RBC) [Ratio] 16.5 % High 11.5-14.5 [facility] ([place]) Comment on above: Performed By: #### R BCP #### [address] [address] Hematocrit (Bld) [Volume fraction] 26.2 % Low 37.0-47.0 [facility] ([place]) Comment on above: Performed By: #### R BCP #### [place] [id number] Hgb 8.9 G/dL Low 12.0-16.0 [facility] ([place]) Comment on above: Performed By: #### R BCP #### [place] [id number] MCH (RBC) [Entitic mass] 32.7 pg High 27.0-31.2 [facility] ([place]) Comment on above: Performed By: #### R BCP #### [place] [id number] MCHC 33.9 G/dL Normal 33.0-37.0 [facility] ([place]) Comment on above: Performed By: #### R BCP #### [address] [address] MCV (RBC) [Entitic vol] 96.6 fL High 80.0-94.0 [facility] ([place]) Comment on above: Performed By: #### R BCP #### [place] [address] Platelet 171 10 3/mcL Normal 130-400 [facility] ([place]) Comment on above: Performed By: #### R BCP #### [place] [address] Platelet mean volume (Bld) [Entitic vol] 9.2 fL Normal 7.4-10.4 [facility] ([place]) Comment on above: Performed By: #### R BCP #### [place] [address] RBC 2.72 10 6/mcL Low 4.20-5.40 [facility] ([place]) Comment on above: Performed By: #### R BCP #### [place] [id number] WBC 11.2 10 3/mcL High 4.6-10.8 [facility] ([place]) Comment on above: Performed By: #### R BCP #### [place] [address] LABORATORYOrdered By: Wilma Lawler on 04-20-2024 Hemoglobin.gastroint estinal Ql (Stl) Negative (04/20/24 8:35 PM) Normal Negative AO Rapid Testing SS LABORATORYOrdered By: Wilma Ziegler on 04-20-2024 Osmolality (U) [Osmolality] 321 mosm/kg Low 390 - 1090 mOsm/kg AH Manual Chem SS Osmolality [Osmolality] 270 mosm/kg Low 275 - 300 mOsm/kg Manual Chem SS LABORATORYOrdered By: SYSTEM SYSTEM on 04-20-2024 Sodium (U) [Moles/Vol] 10 mmol/L Low 20 - 110 mmol/L AO ADM SS Basophil, Absolute 0.0 103/mcL Normal 0.0 - 0.2 10^3/mcL AO Workflow SS Basophils/100 WBC (Bld) 0.2 % Normal 0.0 - 2.5 % AO Workflow SS Calcium [Mass/Vol] 8.4 mg/dL Normal 8.4 - 10. 2 mg/dL AO ADM SS Chloride [Moles/Vol] 95 mmol/L Low 98 - 10 7 mmol/L AO ADM SS CO2 [Moles/Vol] 22 mmol/L Low 23 - 31 mmol/L AO ADM SS Creatinine [Mass/Vol] 1.22 mg/dL High 0.55 - 1.02 mg/dL AO ADM SS Electrolyte Balance 11.0 mEq/L Normal 4.0 - 15 .0 mEq/L AO ADM SS Eosinophil, Absolute 0.0 103/mcL Normal 0.0 - 0 .4 10^3/mcL AO Workflow SS Eosinophils/100 WBC (Bld) 0.0 % Normal 0.0 - 7.0 % AO Workflow SS Erythrocyte distribution width (RBC) [Ratio] 16.5 % High 11.5 - 14.5 % AO Workflow SS GFR/1.73 sq M.predicted among blacks MDRD (S/P/Bld) [Vol rate/Area] 53 ml/min/1.73sqm Invalid Interpretation Code AO Chemistry S Comment on above: Interpretive Data: GFR Population mean for , Non- Americans Ages 20-29 = 116 mL/min/1.73 sq.m. Ages 30-39 = 107 mL/min/1.73 sq.m. Ages 40-49 = 99 mL/min/1.73 sq.m. Ages 50-59 = 93 mL/min/1.73 sq.m. Ages 60-69 = 85 mL/min/1.73 sq.m. Ages 70+ = 75 mL/min/1.73 sq.m. Chronic Kidney Disease: Less than 60 mL/min/1.73 square meters End Stage Renal Disease: Less than 15 mL/min/1.73 square meters GFR/1.73 sq M.predicted among non-blacks MDRD (S/P/Bld) [Vol rate/Area] 44 ml/min/1.73sqm Invalid Interpretation Code AO Chemistry S Comment on above: Interpretive Data: GFR Population mean for , Non- Americans Ages 20-29 = 116 mL/min/1.73 sq.m. Ages 30-39 = 107 mL/min/1.73 sq.m. Ages 40-49 = 99 mL/min/1.73 sq.m. Ages 50-59 = 93 mL/min/1.73 sq.m. Ages 60-69 = 85 mL/min/1.73 sq.m. Ages 70+ = 75 mL/min/1.73 sq.m. Chronic Kidney Disease: Less than 60 mL/min/1.73 square meters End Stage Renal Disease: Less than 15 mL/min/1.73 square meters Glucose [Mass/Vol] 91 mg/dL Normal 83 - 110 mg/dL AO ADM SS Hematocrit (Bld) [Volume fraction] 26.2 % Low 37.0 - 47.0 % AO Workflow SS Hemoglobin (Bld) [Mass/Vol] 8.9 G/dL Low 12.0 - 16.0 G/dL AO Workflow SS Lymphocyte, Absolute 1.0 103/mcL Normal 0.8 - 3 .9 10^3/mcL AO Workflow SS Lymphocytes/100 WBC (Bld) 8.7 % Low 10.0 - 50.0 % AO Workflow SS Magnesium [Mass/Vol] 1.8 mg/dL Normal 1.8 - 2 .4 mg/dL AO ADM SS MCH (RBC) [Entitic mass] 32.7 pg High 27.0 - 31.2 pg AO Workflow SS MCHC 33.9 G/dL Normal 33.0 - 37.0 G/dL AO Workflow SS MCV (RBC) [Entitic vol] 96.6 fL High 80.0 - 94.0 fL AO Workflow SS Monocyte, Absolute 1.0 103/mcL Normal 0.2 - 1.0 10^3/mcL AO Workflow SS Monocytes/100 WBC (Bld) 8.8 % Normal 1.7 - 13.0 % AO Workflow SS Neutrophil, Absolute 9.2 103/mcL High 2.9 - 6 .2 10^3/mcL AO Workflow SS Neutrophils/100 WBC (Bld) 82.3 % High 37.0 - 80.0 % AO Workflow SS Platelet mean volume (Bld) [Entitic vol] 9.2 fL Normal 7.4 - 10.4 fL AO Workflow SS Platelets (Bld) [#/Vol] 171 103/mcL Normal 130 - 400 10^3/mcL AO Workflow SS Potassium [Moles/Vol] 3.8 mmol/L Normal 3.5 - 5.1 mmol/L AO ADM SS RBC (Bld) [#/Vol] 2.72 106/mcL Low 4.20 - 5.4 0 10^6/mcL AO Workflow SS Sodium [Moles/Vol] 128 mmol/L Low 136 - 145 mmol/L AO ADM SS Troponin I.cardiac DL <= 0.01 ng/mL [Mass/Vol] 47 ng/L Normal 0 - 51 ng/L AO ADM SS Comment on above: Interpretive Data: H igh Sensitive Troponin I Reference Ranges: Female: 0-51 ng/L Male: 0-76 ng/L Testing performed on [employer] using a homogeneous sandwich chemiluminescent immunoassay based on [employer] technology. Urea nitrogen [Mass/Vol] 22 mg/dL High 7 - 18 mg/dL AO ADM SS Urea nitrogen/Creatinine [Mass ratio] 18 ratio Normal 7 - 27 ratio AO ADM SS WBC (Bld) [#/Vol] 11.2 103/mcL High 4.6 - 10.8 10^3/mcL AO Workflow SS MGon 04-20-2024 Magnesium [Mass/Vol] 1.8 mg/dL Normal 1.8-2.4 [facility] ([place]) Comment on above: Performed By: #### R BCP #### [place] [address] NAURon 04-20-2024 Sodium [Moles/Vol] 10 mmol/L Low 20-110 [facility] ([place]) Comment on above: Performed By: #### N AUR ####[place]ahla [address] [address]#### OSMOU ####[address] [address] No Panel Informationon 04-20 Culture Urine >100,000 cfu/ml Escherichia coli ILIR to follow [facility] OCC (LAB)on 04-20-2024 Occult Blood Fecal Negative Normal Negative [facility] ([place]) Comment on above: Performed By: #### O CC ####[place] [address] [place], [place] [address] OSMOSon 04-20-2024 Osmolality [Osmolality] 270 mosm/kg Low 275-300 [facility] ([place]) Comment on above: Performed By: #### O SMOS #### [address] [address] OSMOUon 04-20-2024 U Osmolality 321 mOsm/kg Low 390-1090 [facility] ([place]) Comment on above: Performed By: #### N AUR ####[address] [address]#### OSMOU ####[address] [address] TROPHSon 04-20-2024 High Sensitivity Troponin I 47 ng/L Normal 0-51 [facility] ([place]) Comment on above: Result Comment: High Sensitive Troponin I Reference Ranges: Female: 0-51 ng/L Male: 0-76 ng/L Testing performed on [employer] using a homogeneous sandwich chemiluminescent immunoassay based on [employer] technology. Performed By: #### R BCP #### [place] [address] .Auto Diffon 04-19-2024 Basophil, Absolute 0.0 10 3/mcL Normal 0.0-0.2 [facility] ([place]) Comment on above: Performed By: #### C MP, ADIFF, CK, CBC, GFR, MDW, ANEU, TROPHS, LIP ####Shahla [address] [place], [place] [address] Basophils/100 WBC (Bld) 0.4 % Normal 0.0-2.5 [facility] ([place]) Comment on above: Performed By: #### C MP, ADIFF, CK, CBC, GFR, MDW, ANEU, TROPHS, LIP ####Shahla [address] [place], [place] [address] Eosinophil, Absolute 0.0 10 3/mcL Normal 0.0-0.4 [facility] ([place]) Comment on above: Performed By: #### C MP, ADIFF, CK, CBC, GFR, MDW, ANEU, TROPHS, LIP ####Shahla [address] [place], [place] [address] Eosinophils/100 WBC (Bld) 0.1 % Normal 0.0-7.0 [facility] ([place]) Comment on above: Performed By: #### C MP, ADIFF, CK, CBC, GFR, MDW, ANEU, TROPHS, LIP ####Shahla [address] [place], [place] [address] Lymphocyte, Absolute 0.9 10 3/mcL Normal 0.8-3.9 [facility] ([place]) Comment on above: Performed By: #### C MP, ADIFF, CK, CBC, GFR, MDW, ANEU, TROPHS, LIP ####Shahla [address] [place], [place] [address] Lymphocytes/100 WBC (Bld) 7.2 % Low 10.0-50.0 [facility] ([place]) Comment on above: Performed By: #### C MP, ADIFF, CK, CBC, GFR, MDW, ANEU, TROPHS, LIP ####Shahla [address] [place], [place] [address] Monocyte, Absolute 1.2 10 3/mcL High 0.2-1.0 [facility] ([place]) Comment on above: Performed By: #### C MP, ADIFF, CK, CBC, GFR, MDW, ANEU, TROPHS, LIP ####Shahla [address] [place], [place] [address] Monocytes/100 WBC (Bld) 9.9 % Normal 1.7-13.0 [facility] ([place]) Comment on above: Performed By: #### C MP, ADIFF, CK, CBC, GFR, MDW, ANEU, TROPHS, LIP ####Shahla [address] [place], [place] [address] Neutrophils/100 WBC (Bld) 82.4 % High 37.0-80.0 [facility] ([place]) Comment on above: Performed By: #### C MP, ADIFF, CK, CBC, GFR, MDW, ANEU, TROPHS, LIP ####Shahla [address] [place], [place] [address] .GFRon 04-19-2024 GFR 48 ml/min/1.73sqm Normal [facility] ([place]) Comment on above: Result Comment: GFR Population mean for , Non- Americans Ages 20-29 = 116 mL/min/1.73 sq.m. Ages 30-39 = 107 mL/min/1.73 sq.m. Ages 40-49 = 99 mL/min/1.73 sq.m. Ages 50-59 = 93 mL/min/1.73 sq.m. Ages 60-69 = 85 mL/min/1.73 sq.m. Ages 70+ = 75 mL/min/1.73 sq.m. Chronic Kidney Disease: Less than 60 mL/min/1.73 square meters End Stage Renal Disease: Less than 15 mL/min/1.73 square meters Performed By: #### C MP, ADIFF, CK, CBC, GFR, MDW, ANEU, TROPHS, LIP ####Shahla [address] [place], [place] [address] GFR Non- 40 ml/min/1.73sqm Normal [facility] ([place]) Comment on above: Result Comment: GFR Population mean for , Non- Americans Ages 20-29 = 116 mL/min/1.73 sq.m. Ages 30-39 = 107 mL/min/1.73 sq.m. Ages 40-49 = 99 mL/min/1.73 sq.m. Ages 50-59 = 93 mL/min/1.73 sq.m. Ages 60-69 = 85 mL/min/1.73 sq.m. Ages 70+ = 75 mL/min/1.73 sq.m. Chronic Kidney Disease: Less than 60 mL/min/1.73 square meters End Stage Renal Disease: Less than 15 mL/min/1.73 square meters Performed By: #### C MP, ADIFF, CK, CBC, GFR, MDW, ANEU, TROPHS, LIP ####Shahla [address] [place], [place] [address] .Won 04-19-2024 Monocyte Distribution Width Not performed Normal 0.00-20.00 [facility] ([place]) Comment on above: Result Comment: W testing performed only on adult ER patients between the ages of 18-89 years. Performed By: #### C MP, ADIFF, CK, CBC, GFR, MDW, ANEU, TROPHS, LIP ####Shahla [address] [place], [place] [address] .NEUABSon 04-19-2024 Neutrophil, Absolute 9.8 10 3/mcL High 2.9-6.2 [facility] ([place]) Comment on above: Performed By: #### C MP, ADIFF, CK, CBC, GFR, MDW, ANEU, TROPHS, LIP ####Shahla [address] [place], [place] [address] .Urinalysis Microscopic (AO) on 04-19-2024 UA RBC 0-5 Abnormal None Seen [facility] ([place]) Comment on above: Performed By: #### U A, UAMICAO ####Shahla [address] [place] [address] UA Squam Epithelial 0-5 Abnormal None Seen [facility] ([place]) Comment on above: Performed By: #### U A, UAMICAO ####Shahla [address] [place] [address] UA WBC 0-5 Abnormal None Seen [facility] ([place]) Comment on above: Performed By: #### U A, UAMICAO ####Shahla [address] [place] [id number] CBCon 04-19-2024 Erythrocyte distribution width (RBC) [Ratio] 16.4 % High 11.5-14.5 [facility] ([place]) Comment on above: Performed By: #### C MP, ADIFF, CK, CBC, GFR, MDW, ANEU, TROPHS, LIP ####Shahla [address] [place], [place] [address] Hematocrit (Bld) [Volume fraction] 26.7 % Low 37.0-47.0 [facility] ([place]) Comment on above: Performed By: #### C MP, ADIFF, CK, CBC, GFR, MDW, ANEU, TROPHS, LIP ####Shahla [address] [place] [id number] Hgb 8.9 G/dL Low 12.0-16.0 [facility] ([place]) Comment on above: Performed By: #### C MP, ADIFF, CK, CBC, GFR, MDW, ANEU, TROPHS, LIP ####Sahhla [address] [place], [place] [address] MCH (RBC) [Entitic mass] 32.1 pg High 27.0-31.2 [facility] ([place]) Comment on above: Performed By: #### C MP, ADIFF, CK, CBC, GFR, MDW, ANEU, TROPHS, LIP ####Shahla [address] [place], [place] [address] MCHC 33.5 G/dL Normal 33.0-37.0 [facility] ([place]) Comment on above: Performed By: #### C MP, ADIFF, CK, CBC, GFR, MDW, ANEU, TROPHS, LIP ####Shahla [address] [place], [place] [address] MCV (RBC) [Entitic vol] 96.0 fL High 80.0-94.0 [facility] ([place]) Comment on above: Performed By: #### C MP, ADIFF, CK, CBC, GFR, MDW, ANEU, TROPHS, LIP ####Shahla [address] [place], [place] [address] Platelet 183 10 3/mcL Normal 130-400 [facility] ([place]) Comment on above: Performed By: #### C MP, ADIFF, CK, CBC, GFR, MDW, ANEU, TROPHS, LIP ####Shahla [address] [place], [place] [address] Platelet mean volume (Bld) [Entitic vol] 9.0 fL Normal 7.4-10.4 [facility] ([place]) Comment on above: Performed By: #### C MP, ADIFF, CK, CBC, GFR, MDW, ANEU, TROPHS, LIP ####Shahla [address] [place], [place] [address] RBC 2.79 10 6/mcL Low 4.20-5.40 [facility] ([place]) Comment on above: Performed By: #### C MP, ADIFF, CK, CBC, GFR, MDW, ANEU, TROPHS, LIP ####Shahla [address] [place], [place] [address] WBC 11.9 10 3/mcL High 4.6-10.8 [facility] ([place]) Comment on above: Performed By: #### C MP, ADIFF, CK, CBC, GFR, MDW, ANEU, TROPHS, LIP ####Shahla [address] [place], [place] [address] CKon 04-19-2024 CK [Catalytic activity/Vol] 108 U/L Normal 26-192 [facility] ([place]) Comment on above: Performed By: #### C MP, ADIFF, CK, CBC, GFR, MDW, ANEU, TROPHS, LIP ####Shahla [address] [place], [place] [address] CMPon 04-19-2024 Albumin Level 2.7 G/dL Low 3.4-4.8 [facility] ([place]) Comment on above: Performed By: #### C MP, ADIFF, CK, CBC, GFR, MDW, ANEU, TROPHS, LIP ####Shahla [address] [place], [place] [address] Albumin/Globulin [Mass ratio] 0.7 {ratio} Low 1.1-2.5 [facility] ([place]) Comment on above: Performed By: #### C MP, ADIFF, CK, CBC, GFR, MDW, ANEU, TROPHS, LIP ####Shahla [address] [place], [place] [address] ALP [Catalytic activity/Vol] 146 U/L High 40-135 [facility] ([place]) Comment on above: Performed By: #### C MP, ADIFF, CK, CBC, GFR, MDW, ANEU, TROPHS, LIP ####Shahla [address] [place], [place] [address] ALT [Catalytic activity/Vol] 40 U/L Normal 14-59 [facility] ([place]) Comment on above: Performed By: #### C MP, ADIFF, CK, CBC, GFR, MDW, ANEU, TROPHS, LIP ####Shahla [address] [place], [place] [address] AST [Catalytic activity/Vol] 33 U/L Normal 10-40 [facility] ([place]) Comment on above: Performed By: #### C MP, ADIFF, CK, CBC, GFR, MDW, ANEU, TROPHS, LIP ####Shahla [address] [place], [place] [address] Bili Total 0.6 mg/dL Normal 0.2-1.0 [facility] ([place]) Comment on above: Result Comment: Use of this assay is not recommended for patients undergoing treatment with eltrombopag due to the potential for falsely elevated results. Performed By: #### C MP, ADIFF, CK, CBC, GFR, MDW, ANEU, TROPHS, LIP ####Shahla [address] [place], [place] [address] BUN/Creatinine Ratio 21 ratio Normal 7-27 [facility] ([place]) Comment on above: Performed By: #### C MP, ADIFF, CK, CBC, GFR, MDW, ANEU, TROPHS, LIP ####Shahla [address] [place], [place] [address] Calcium [Mass/Vol] 8.9 mg/dL Normal 8.4-10.2 [facility] ([place]) Comment on above: Performed By: #### C MP, ADIFF, CK, CBC, GFR, MDW, ANEU, TROPHS, LIP ####Shahla [address] [place], [place] [address] Chloride [Moles/Vol] 92 mmol/L Low 98-107 [facility] ([place]) Comment on above: Performed By: #### C MP, ADIFF, CK, CBC, GFR, MDW, ANEU, TROPHS, LIP ####Shahla [address] [place], [place] [address] CO2 [Moles/Vol] 24 mmol/L Normal 23-31 [facility] ([place]) Comment on above: Performed By: #### C MP, ADIFF, CK, CBC, GFR, MDW, ANEU, TROPHS, LIP ####Shahla [address] [place], [place] [address] Creatinine [Mass/Vol] 1.32 mg/dL High 0.55-1.02 [facility] ([place]) Comment on above: Performed By: #### C MP, ADIFF, CK, CBC, GFR, MDW, ANEU, TROPHS, LIP ####Shahla [address] [place], [place] [address] Electrolyte Balance 11.0 mEq/L Normal 4.0-15.0 [facility] ([place]) Comment on above: Performed By: #### C MP, ADIFF, CK, CBC, GFR, MDW, ANEU, TROPHS, LIP ####Shahla [address] [place], [place] [address] Globulin 4.1 G/dL Normal [facility] ([place]) Comment on above: Performed By: #### C MP, ADIFF, CK, CBC, GFR, MDW, ANEU, TROPHS, LIP ####Shahla [address] [place], [place] [address] Glucose [Mass/Vol] 95 mg/dL Normal 83-110 [facility] ([place]) Comment on above: Performed By: #### C MP, ADIFF, CK, CBC, GFR, MDW, ANEU, TROPHS, LIP ####Shahla [address] [place], [place] [address] Potassium [Moles/Vol] 4.0 mmol/L Normal 3.5-5.1 [facility] ([place]) Comment on above: Performed By: #### C MP, ADIFF, CK, CBC, GFR, MDW, ANEU, TROPHS, LIP ####Shahla [address] [place], [place] [address] Sodium [Moles/Vol] 127 mmol/L Low 136-145 [facility] ([place]) Comment on above: Performed By: #### C MP, ADIFF, CK, CBC, GFR, MDW, ANEU, TROPHS, LIP ####Shahla [address] [place], [place] [address] Total Protein 6.8 G/dL Normal 6.4-8.2 [facility] ([place]) Comment on above: Performed By: #### C MP, ADIFF, CK, CBC, GFR, MDW, ANEU, TROPHS, LIP ####Shahla [address] [place], [place] [address] Urea nitrogen [Mass/Vol] 28 mg/dL High 7-18 [facility] ([place]) Comment on above: Performed By: #### C MP, ADIFF, CK, CBC, GFR, MDW, ANEU, TROPHS, LIP ####Shahla [address] [place], [place] [address] CT HEAD OR BRAIN W/O CONTRAS Ton 04-19-2024 CT HEAD OR BRAIN W/O CONTRAST ORIGINAL EXAMINATION: CT OF THE HEAD WITHOUT CONTRAST04/19/2024 11:11 pm TECHNIQUE: CT of the head was performed without the administration of intravenous contrast. Automated exposure control, iterative reconstruction, and/or weight based adjustment of the mA/kV was utilized to reduce the radiation dose to as low as reasonably achievable. COMPARISON: CT head 01/23/2016 HISTORY: ORDERING SYSTEM PROVIDED HISTORY: No acute intracranial abnormality. Reason for Exam: head injury FINDINGS: There is no intracranial hemorrhage, mass effect or abnormal extra-axial fluid collection. There is no CT evidence for acute large territorial infarction. Patchy supratentorial white matter hypodensities consistent with moderate chronic microvascular angiopathy. Punctate focus within the inferior left putamen (image 14, series 2), not significantly changed, compatible with a remote lacunar infarct. The ventricles are unremarkable for patient age. The skull base and calvarium demonstrate no acute abnormality. Complete opacification of the left maxillary sinus. Moderate opacification of the left ethmoid sinuses. Some opacification within the left frontal ethmoidal recess. Minimal mucosal thickening of the left sphenoid sinus and to even lesser degree the right sphenoid sinus. Pneumatized pterygoid plates. Mastoid air cells are predominantly clear. IMPRESSION: No acute intracranial abnormality. Left-sided paranasal sinus disease. I have personally reviewed the images of this examination and agree with the resident's findings and interpretation. Interpreted by: Italo Fitzpatrick DO Preliminary Report By: Srikanth Doll Electronically signed By Italo Fitzpatrick DO Dictated Date: 04/19/2024 11:21:59 PM Prelim Date: 04/19/2024 11:31:35 PM Sign Date: 04/19/2024 11:38:20 PM Ordering Provider: KARAN [facility]) CT SPINE CERVICAL W/O CONTRA Forrest 04-19-2024 CT SPINE CERVICAL W/O CONTRAST ORIGINAL EXAMINATION: CT OF THE CERVICAL SPINE WITHOUT CONTRAST04/19/2024 11:[address] CERVICAL SPINE WITHOUT CONTRAST TECHNIQUE: CT of the cervical spine was performed without the administration of intravenous contrast. Multiplanar reformatted images are provided for review. Automated exposure control, iterative reconstruction, and/or weight based adjustment of the mA/kV was utilized to reduce the radiation dose to as low as reasonably achievable. COMPARISON: None available HISTORY: ORDERING SYSTEM PROVIDED HISTORY: Reason for Exam: fall FINDINGS: The cervical vertebral bodies are in normal alignment without acute fracture or subluxation. The vertebral body heights are maintained. There is a decrease within C4-C6 with adjacent endplate hypertrophy. The paraspinal soft tissues are within normal limits. The lung apices are clear. IMPRESSION: 1. No acute osseous injury. 2. Degenerative changes C4-C5 and C5-C6. Interpreted by: Trung Parrish MD Preliminary Report By: Trung Parrish MD Electronically signed By Trung Parrish MD Dictated Date: 04/19/2024 11:31:17 PM Prelim Date: 04/19/2024 11:32:28 PM Sign Date: 04/19/2024 11:32:28 PM Ordering Provider: KARAN [facility]) CVFLURVon 04-19-2024 FLU A PCR Negative Normal Negative [facility]) Comment on above: Performed By: #### C VFLURV ####Shahla [address] [place], [place] [address] FLU B PCR Negative Normal Negative [facility]) Comment on above: Performed By: #### C VFLURV ####Shahla [address] [place], [place] [address] RSV PCR Negative Normal Negative [facility]) Comment on above: Performed By: #### C VFLURV ####Shahla [address] [place], [place] [address] SARS-CoV-2 (COVID-19) RNA TL+probe Ql (Unsp spec) Negative Normal Negative [facility] ([place]) Comment on above: Result Comment: Resu lts from the Xpert Xpress CoV-2/Flu/RSV plus test should be correlated with the clinical history, epidemiological data, and other data available to the clinical evaluating the patient. Performance of the Xpert Xpress CoV-2/Flu/RSV plus test has only been established in nasopharyngeal swab specimen. Erroneous test results might occur from improper specimen collection, failure to follow the recommended sample collection, handling and storage procedures, technical error, or sample mix-up. False negative results may occur if a virus is present at a level below the analytical limit of detection. Viral nucleic acid may persist in vivo, independent of virus viability. Detection of analyte target(s) does not imply that the corresponding virus(es) are infectious or are the causative agents for clinical symptoms. Recent patient exposure to FluMist or other live attenuated influenza vaccines may cause inaccurate positive results. Performed By: #### C [facility] ####Shahla [address] [place], [place] [address] LABORATORYOrdered By: SYSTEM SYSTEM on 04-19-2024 Basophil, Absolute 0.0 103/mcL Normal 0.0 - 0.2 10^3/mcL AO Workflow SS Basophils/100 WBC (Bld) 0.4 % Normal 0.0 - 2.5 % AO Workflow SS Eosinophil, Absolute 0.0 103/mcL Normal 0.0 - 0 .4 10^3/mcL AO Workflow SS Eosinophils/100 WBC (Bld) 0.1 % Normal 0.0 - 7.0 % AO Workflow SS Erythrocyte distribution width (RBC) [Ratio] 16.4 % High 11.5 - 14.5 % AO Workflow SS Hematocrit (Bld) [Volume fraction] 26.7 % Low 37.0 - 47.0 % AO Workflow SS Hemoglobin (Bld) [Mass/Vol] 8.9 G/dL Low 12.0 - 16.0 G/dL AO Workflow SS Lymphocyte, Absolute 0.9 103/mcL Normal 0.8 - 3 .9 10^3/mcL AO Workflow SS Lymphocytes/100 WBC (Bld) 7.2 % Low 10.0 - 50.0 % AO Workflow SS MCH (RBC) [Entitic mass] 32.1 pg High 27.0 - 31.2 pg AO Workflow SS MCHC 33.5 G/dL Normal 33.0 - 37.0 G/dL AO Workflow SS MCV (RBC) [Entitic vol] 96.0 fL High 80.0 - 94.0 fL AO Workflow SS Monocyte distribution width Auto (Bld) [Entitic vol] Not Performed 1 *NA* (04/19/24 10:18 PM) Invalid Interpretation Code 0.00 - 20.00 AO Hematology S Comment on above: Result Comment: MDW testing performed only on adult ER patients between the ages of 18-89 years. Monocyte, Absolute 1.2 103/mcL High 0.2 - 1.0 10^3/mcL AO Workflow SS Monocytes/100 WBC (Bld) 9.9 % Normal 1.7 - 13.0 % AO Workflow SS Neutrophil, Absolute 9.8 103/mcL High 2.9 - 6 .2 10^3/mcL AO Workflow SS Neutrophils/100 WBC (Bld) 82.4 % High 37.0 - 80.0 % AO Workflow SS Platelet mean volume (Bld) [Entitic vol] 9.0 fL Normal 7.4 - 10.4 fL AO Workflow SS Platelets (Bld) [#/Vol] 183 103/mcL Normal 130 - 400 10^3/mcL AO Workflow SS RBC (Bld) [#/Vol] 2.79 106/mcL Low 4.20 - 5.4 0 10^6/mcL AO Workflow SS WBC (Bld) [#/Vol] 11.9 103/mcL High 4.6 - 10.8 10^3/mcL AO Workflow SS Albumin BCP dye [Mass/Vol] 2.7 G/dL Low 3.4 - 4.8 G/dL AO ADM SS Albumin/Globulin [Mass ratio] 0.7 {ratio} Low 1.1 - 2.5 ratio AO ADM SS ALP [Catalytic activity/Vol] 146 U/L High 40 - 135 U/L AO ADM SS ALT With P-5'-P [Catalytic activity/Vol] 40 U/L Normal 14 - 59 U/L AO ADM SS AST With P-5'-P [Catalytic activity/Vol] 33 U/L Normal 10 - 40 U/L AO ADM SS Bilirubin [Mass/Vol] 0.6 mg/dL Normal 0.2 - 1 .0 mg/dL AO ADM SS Comment on above: Interpretive Data: U se of this assay is not recommended for patients undergoing treatment with eltrombopag due to the potential for falsely elevated results. Calcium [Mass/Vol] 8.9 mg/dL Normal 8.4 - 10. 2 mg/dL AO ADM SS Chloride [Moles/Vol] 92 mmol/L Low 98 - 10 7 mmol/L AO ADM SS CK [Catalytic activity/Vol] 108 U/L Normal 26 - 192 U/L AO ADM SS CO2 [Moles/Vol] 24 mmol/L Normal 23 - 31 mmol/L AO ADM SS Creatinine [Mass/Vol] 1.32 mg/dL High 0.55 - 1.02 mg/dL AO ADM SS Electrolyte Balance 11.0 mEq/L Normal 4.0 - 15 .0 mEq/L AO ADM SS GFR/1.73 sq M.predicted among blacks MDRD (S/P/Bld) [Vol rate/Area] 48 ml/min/1.73sqm Invalid Interpretation Code AO Chemistry S Comment on above: Interpretive Data: GFR Population mean for , Non- Americans Ages 20-29 = 116 mL/min/1.73 sq.m. Ages 30-39 = 107 mL/min/1.73 sq.m. Ages 40-49 = 99 mL/min/1.73 sq.m. Ages 50-59 = 93 mL/min/1.73 sq.m. Ages 60-69 = 85 mL/min/1.73 sq.m. Ages 70+ = 75 mL/min/1.73 sq.m. Chronic Kidney Disease: Less than 60 mL/min/1.73 square meters End Stage Renal Disease: Less than 15 mL/min/1.73 square meters GFR/1.73 sq M.predicted among non-blacks MDRD (S/P/Bld) [Vol rate/Area] 40 ml/min/1.73sqm Invalid Interpretation Code AO Chemistry S Comment on above: Interpretive Data: GFR Population mean for , Non- Americans Ages 20-29 = 116 mL/min/1.73 sq.m. Ages 30-39 = 107 mL/min/1.73 sq.m. Ages 40-49 = 99 mL/min/1.73 sq.m. Ages 50-59 = 93 mL/min/1.73 sq.m. Ages 60-69 = 85 mL/min/1.73 sq.m. Ages 70+ = 75 mL/min/1.73 sq.m. Chronic Kidney Disease: Less than 60 mL/min/1.73 square meters End Stage Renal Disease: Less than 15 mL/min/1.73 square meters Globulin 4.1 G/dL Invalid Interpretation Code AO ADM SS Glucose [Mass/Vol] 95 mg/dL Normal 83 - 110 mg/dL AO ADM SS Lipase [Catalytic activity/Vol] 66 U/L Normal 16 - 77 U/L AO ADM SS Potassium [Moles/Vol] 4.0 mmol/L Normal 3.5 - 5.1 mmol/L AO ADM SS Protein [Mass/Vol] 6.8 G/dL Normal 6.4 - 8.2 G/dL AO ADM SS Sodium [Moles/Vol] 127 mmol/L Low 136 - 145 mmol/L AO ADM SS Troponin I.cardiac DL <= 0.01 ng/mL [Mass/Vol] 60 ng/L High 0 - 51 ng/L AO ADM SS Comment on above: Interpretive Data: H igh Sensitive Troponin I Reference Ranges: Female: 0-51 ng/L Male: 0-76 ng/L Testing performed on [employer] using a homogeneous sandwich chemiluminescent immunoassay based on [employer] technology. Urea nitrogen [Mass/Vol] 28 mg/dL High 7 - 18 mg/dL AO ADM SS Urea nitrogen/Creatinine [Mass ratio] 21 ratio Normal 7 - 27 ratio AO ADM SS LABORATORYOrdered By: Isabel Julien on 04-19-2024 Appearance (U) Clear (04/19/24 9:27 PM) Normal Clear AO Auto Urine SS Bilirubin Ql (U) Negative (04/19/24 9:27 PM) Normal Negative AO Auto Urine SS Color (U) Yellow (04/19/24 9:27 PM) Normal AO Auto Urine SS FLUAV RNA TL+probe Ql (Resp) Negative (04/19/24 9:27 PM) Normal Negative AO Auto Urine SS FLUBV RNA TL+probe Ql (Resp) Negative (04/19/24 9:27 PM) Normal Negative AO Auto Urine SS Glucose Test strip (U) [Mass/Vol] Negative Normal Negative AO Auto Urine SS Hemoglobin Auto test strip (U) [Mass/Vol] Moderate *ABN* (04/19/24 9:27 PM) Invalid Interpretation Code Negative AO Auto Urine SS Ketones Ql (U) Negative Normal Negative AO Auto Ur ine SS RSV RNA TL+probe Ql (Resp) Negative (04/19/24 9:27 PM) Normal Negative AO Auto Urine SS SARS-CoV-2 (COVID-19) RNA TL+probe Ql (Resp) Negative 5 (04/19/24 9:27 PM) Normal Negative AO Auto Urine SS Comment on above: Interpretive Data: R esults from the Xpert Xpress CoV-2/Flu/RSV plus test should be correlated with the clinical history, epidemiological data, and other data available to the clinical evaluating the patient. Performance of the Xpert Xpress CoV-2/Flu/RSV plus test has only been established in nasopharyngeal swab specimen. Erroneous test results might occur from improper specimen collection, failure to follow the recommended sample collection, handling and storage procedures, technical error, or sample mix-up. False negative results may occur if a virus is present at a level below the analytical limit of detection. Viral nucleic acid may persist in vivo, independent of virus viability. Detection of analyte target(s) does not imply that the corresponding virus(es) are infectious or are the causative agents for clinical symptoms. Recent patient exposure to FluMist or other live attenuated influenza vaccines may cause inaccurate positive results. UA Leuk Est Negative (04/19/24 9:27 PM) Normal Negative AO Auto Urine SS UA Nitrite Negative (04/19/24 9:27 PM) Normal Negative AO Auto Urine SS UA pH 5.5 (04/19/24 9:27 PM) Normal 5.0 - 8.0 AO Auto Urine SS UA Protein 30 mg/dL Normal Negative AO Auto Urine SS UA RBC 0-5 /HPF Invalid Interpretation Code None Seen AO Auto Urine SS UA Spec Grav 1.010 *ABN* (04/19/24 9:27 PM) Invalid Interpretation Code 1.015-1.025 AO Auto Urine SS UA Specimen Type Clean Catch (04/19/24 9:27 PM) Normal AO Auto Urine SS UA Squam Epithelial 0-5 /HPF Invalid Interpretation Code None Seen AO Auto Urine SS UA Urobilinogen 0.2 E.U./dL Normal 0.2-1.0 AO Auto Urine SS WBC LM.HPF (Urine sed) [#/Area] 0-5 /HPF Invalid Interpretation Code None Seen AO Auto Urine SS LIPon 04-19-2024 Lipase Level 66 U/L Normal 16-77 [facility] ([place]) Comment on above: Performed By: #### C MP, ADIFF, CK, CBC, GFR, MDW, ANEU, TROPHS, LIP ####Shahla [address] [place], [place] [address] TROPHSon 04-19-2024 High Sensitivity Troponin I 60 ng/L High 0-51 [facility] ([place]) Comment on above: Result Comment: High Sensitive Troponin I Reference Ranges: Female: 0-51 ng/L Male: 0-76 ng/L Testing performed on [employer] using a homogeneous sandwich chemiluminescent immunoassay based on [employer] technology. Performed By: #### C MP, ADIFF, CK, CBC, GFR, MDW, ANEU, TROPHS, LIP ####Shahla [address] [place], [place] [address] UAon 04-19-2024 Color (U) Yellow Normal [facility] ([place]) Comment on above: Performed By: #### U A, [place] ####Shahla [address] [place], [place] [address] Glucose (U) [Mass/Vol] Negative Normal Negative [facility] ([place]) Comment on above: Performed By: #### U A, [place] ####Shahla [address] [place], [place] [address] Ketones Ql (U) Negative Normal Negative [facility] ([place]) Comment on above: Performed By: #### U A, UAMICAO ####[address] [place], [place] [address] UA Appear Clear Normal Clear [facility] ([place]) Comment on above: Performed By: #### U A, UAMICAO ####[address] [place], [place] [address] UA Blood Moderate Abnormal Negative [facility] ([place]) Comment on above: Performed By: #### U A, UAMICAO ####[address] [place], [place] [address] UA Leuk Est Negative Normal Negative [facility] ([place]) Comment on above: Performed By: #### U A UAMICAO ####[address] [place], [place] [address] UA Nitrite Negative Normal Negative [facility] ([place]) Comment on above: Performed By: #### U Palmira UAMICAO ####[address] [place], [place] [address] UA pH 5.5 Normal 5.0 - 8.0 [facility] ([place]) Comment on above: Performed By: #### U Palmira UAMICAO ####[address] [place], [place] [address] UA Protein 30 mg/dL Normal Negative [facility] ([place]) Comment on above: Performed By: #### U Palmira UAMICAO ####[address] [place], [place] [address] UA Spec Grav 1.010 Abnormal 1.015-1.025 [facility] ([place]) Comment on above: Performed By: #### Kristen Chavis UAMICAO ####[address] [place], [place] [address] UA Specimen Type Clean Catch Normal [facility] ([place]) Comment on above: Performed By: #### Kristen Chavis UAMICAO ####[address] [place], [place] [address] UA Urobilinogen 0.2 E.U./dL Normal 0.2-1.0 [facility] ([place]) Comment on above: Performed By: #### U Palmira UAMICAO ####[address] [place], [place] [address] Urobilinogen (U) [Mass/Vol] Negative Normal Negative [facility] ([place]) Comment on above: Performed By: #### U Palmira UAMICAO ####[address] [place], [place] [address] XR CHEST 1 VIEWon 04-19-2024 XR CHEST 1 VIEW ORIGINAL EXAMINATION: ONE XRAY VIEW OF THE CHEST04/19/2024 11:09 pm COMPARISON: Chest radiograph 12/23/2019 HISTORY: ORDERING SYSTEM PROVIDED HISTORY: Reason for Exam: chest pain FINDINGS: The cardiomediastinal silhouette is stable. Atherosclerotic calcification of the aortic knob. There is no pulmonary vascular congestion. There is no focal consolidation. No significant volume pleural effusion. No pneumothorax. IMPRESSION: No acute cardiopulmonary process. I have personally reviewed the images of this examination and agree with the resident's findings and interpretation. Interpreted by: Italo Fitzpatrick DO Preliminary Report By: Srikanth Doll Electronically signed By Italo Fitzpatrick DO Dictated Date: 04/19/2024 11:19:42 PM Prelim Date: 04/19/2024 11:20:43 PM Sign Date: 04/19/2024 11:32:35 PM Ordering Provider: KARAN [facility] ([place]) XR HIP LEFT W/PELVIS 4 VIEWS on 04-19-2024 XR HIP LEFT W/PELVIS 4 VIEWS ORIGINAL EXAMINATION: 2 XRAY VIEW OF THE PELVIS AND 2 XRAY VIEWS LEFT HIP04/19/2024 11:10 pm COMPARISON: Hip radiograph 02/17/2024, CT hip 04/16/2024 HISTORY: ORDERING SYSTEM PROVIDED HISTORY: Reason for Exam: pain FINDINGS: No acute fracture or dislocation. The pelvic ring is intact. Sclerosis with slight cortical irregularity of the left femoral head in keeping with known avascular necrosis seen to better advantage on the recent CT. Varying degrees of multifocal degenerative change. Contrast is present within the urinary bladder. IMPRESSION: No acute fracture dislocation. Avascular necrosis of the left femoral head, seen to better advantage on the recent CT. I have personally reviewed the images of this examination and agree with the resident's findings and interpretation. Interpreted by: Italo Fitzpatrick DO Preliminary Report By: Srikanth Doll Electronically signed By Italo Fitzpatrick DO Dictated Date: 04/19/2024 11:14:42 PM Prelim Date: 04/19/2024 11:19:35 PM Sign Date: 04/19/2024 11:31:45 PM Ordering Provider: KARAN [facility] ([place]) .Auto Diffon 04-16-2024 Basophil, Absolute 0.1 10 3/mcL Normal 0.0-0.2 [facility]) Comment on above: Performed By: #### C RP, ESR, CBC, ANEU, ADIFF ####[facility] [place], [place] [address] Basophils/100 WBC (Bld) 0.4 % Normal 0.0-2.5 [facility] ([place]) Comment on above: Performed By: #### C RP, ESR, CBC, ANEU, ADIFF ####[address] [place], [place] [address] Eosinophil, Absolute 0.1 10 3/mcL Normal 0.0-0.4 [facility] ([place]) Comment on above: Performed By: #### C RP, ESR, CBC, ANEU, ADIFF ####[address] [place], [place] [address] Eosinophils/100 WBC (Bld) 0.5 % Normal 0.0-7.0 [facility] ([place]) Comment on above: Performed By: #### C RP, ESR, CBC, ANEU, ADIFF ####[address] [place], [place] [address] Lymphocyte, Absolute 1.3 10 3/mcL Normal 0.8-3.9 [facility] ([place]) Comment on above: Performed By: #### C RP, ESR, CBC, ANEU, ADIFF ####[address] [place], [place] [address] Lymphocytes/100 WBC (Bld) 10.0 % Normal 10.0-50.0 [facility] ([place]) Comment on above: Performed By: #### C RP, ESR, CBC, ANEU, ADIFF ####[address] [place], [place] [address] Monocyte, Absolute 1.0 10 3/mcL Normal 0.2-1.0 [facility] ([place]) Comment on above: Performed By: #### C RP, ESR, CBC, ANEU, ADIFF ####[address] [place], [place] [address] Monocytes/100 WBC (Bld) 8.0 % Normal 1.7-13.0 [facility] ([place]) Comment on above: Performed By: #### C RP, ESR, CBC, ANEU, ADIFF ####[address] [place], [place] [address] Neutrophils/100 WBC (Bld) 81.1 % High 37.0-80.0 [facility] ([place]) Comment on above: Performed By: #### C RP, ESR, CBC, ANEU, ADIFF ####[address] [place], [place] [address] .NEUABSon 04-16-2024 Neutrophil, Absolute 10.3 10 3/mcL High 2.9-6.2 A [facility] ([place]) Comment on above: Performed By: #### C RP, ESR, CBC, ANEU, ADIFF ####[address] [place], [place] [address] CBCon 04-16-2024 Erythrocyte distribution width (RBC) [Ratio] 16.8 % High 11.5-14.5 [facility] ([place]) Comment on above: Performed By: #### C RP, ESR, CBC, ANEU, ADIFF ####[address] [place], [place] [address] Hematocrit (Bld) [Volume fraction] 30.2 % Low 37.0-47.0 [facility] ([place]) Comment on above: Performed By: #### C RP, ESR, CBC, ANEU, ADIFF ####[address] [place], [place] [address] Hgb 10.0 G/dL Low 12.0-16.0 [facility] ([place]) Comment on above: Performed By: #### C RP, ESR, CBC, ANEU, ADIFF ####[address] [place], [place] [address] MCH (RBC) [Entitic mass] 32.5 pg High 27.0-31.2 [facility] ([place]) Comment on above: Performed By: #### C RP, ESR, CBC, ANEU, ADIFF ####[address] [place], [place] [address] MCHC 33.3 G/dL Normal 33.0-37.0 [facility] ([place]) Comment on above: Performed By: #### C RP, ESR, CBC, ANEU, ADIFF ####[address] [place], [place] [address] MCV (RBC) [Entitic vol] 97.6 fL High 80.0-94.0 [facility] ([place]) Comment on above: Performed By: #### C RP, ESR, CBC, ANEU, ADIFF ####[address] [place], [place] [address] Platelet 243 10 3/mcL Normal 130-400 [facility] ([place]) Comment on above: Performed By: #### C RP, ESR, CBC, ANEU, ADIFF ####[address] [place], [place] [address] Platelet mean volume (Bld) [Entitic vol] 9.1 fL Normal 7.4-10.4 [facility] ([place]) Comment on above: Performed By: #### C RP, ESR, CBC, ANEU, ADIFF ####[address] [place], [place] [address] RBC 3.09 10 6/mcL Low 4.20-5.40 [facility] ([place]) Comment on above: Performed By: #### C RP, ESR, CBC, ANEU, ADIFF ####[address] [place], [place] [address] WBC 12.7 10 3/mcL High 4.6-10.8 [facility] ([place]) Comment on above: Performed By: #### C RP, ESR, CBC, ANEU, ADIFF ####[address] [place], [place] [address] CRPon 04-16-2024 C-Reactive Protein 5.8 mg/dL High 0.0-0.3 [facility] ([place]) Comment on above: Performed By: #### C RP, ESR, CBC, ANEU, ADIFF ####[address] [place], [place] [address] CT HIP W/O CONTRAST LEFTon 0 04-16-2024 CT HIP W/O CONTRAST LEFT ORIGINAL EXAMINATION: CT OF THE LEFT HIP WITHOUT CONTRAST04/16/2024 2:19 pm COMPARISON: Radiographs 02/17/2024 TECHNIQUE: CT of the left hip was performed without the administration of intravenous contrast. Multiplanar reformatted images are provided for review. Automated exposure control, iterative reconstruction, and/or weight based adjustment of the mA/kV was utilized to reduce the radiation dose to as low as reasonably achievable. HISTORY: ORDERING SYSTEM PROVIDED HISTORY: Reason for Exam: UNILATERAL PRIMARY OSTEOARTHRITIS LEFT HIP, PAIN LEFT HIP, rule out possible fracture, no history of trauma FINDINGS: There are findings of advanced avascular necrosis in the left femoral head with multiple serpiginous areas of sclerosis in subchondral bone with interspersed subchondral lucent areas also. There is mild cortical collapse in the femoral head best seen on the coronal images. The abnormality involves more than 70% of the articular surface of the femoral head. No acute or aggressive skeletal abnormality is seen. There is mild osteoarthritis of the hip with acetabular marginal spurring but no significant joint space narrowing. There is small to moderate hip joint effusion. There is mild trochanteric enthesopathy and enthesopathy of the posterior margin of the HL tuberosity. Ischial tuberosity. The musculature around the hip is unremarkable and noncontributory. No indicators of femoroacetabular and ischiofemoral impingement. The included pelvic organs show sigmoid diverticulosis and moderate stool in the sigmoid colon and rectum. IMPRESSION: Advanced avascular necrosis in the left femoral head with mild cortical collapse. Mild osteoarthritis and joint effusion. There is subtle sclerosis in the right femoral head on the spotter image and 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 Suggest right hip CT or MRI 2 clarify and exclude this possibility. Interpreted by: Wolf Kenney MD Preliminary Report By: Wolf Kenney MD Electronically signed By Wolf Kenney MD Dictated Date: 04/16/2024 3:29:38 PM Prelim Date: 04/16/2024 3:37:27 PM Sign Date: 04/16/2024 3:37:27 PM Ordering Provider: SHWETHA Francisco [facility] ([place]) ESRon 04-16-2024 Erythrocyte Sed Rate 109 mm/hr High 0-30 [facility] ([place]) Comment on above: Performed By: #### C RP, ESR, CBC, ANEU, ADIFF ####[address] [place], [place] [address] XR HAND MINIMUM 3 VIEWS LEFT on 03-03-2024 XR HAND MINIMUM 3 VIEWS LEFT ORIGINAL EXAMINATION: THREE XRAY VIEWS OF THE LEFT HAND 03/03/2024 4:21 pm COMPARISON: None. HISTORY: ORDERING SYSTEM PROVIDED HISTORY: Reason for Exam: pain FINDINGS: There is no evidence of acute fracture. There is normal alignment. No acute joint abnormality. No focal osseous lesion. No focal soft tissue abnormality. IMPRESSION: No acute osseous abnormality. Interpreted by: Michael Singh Preliminary Report By: Michael Singh Electronically signed By Michael Singh Dictated Date: 03/03/2024 4:30:57 PM Prelim Date: 03/03/2024 4:32:59 PM Sign Date: 03/03/2024 4:32:59 PM Ordering Provider: AKI [facility] ([place]) XR SPINE LUMBAR AP/LATon XR SPINE LUMBAR AP/LAT ORIGINAL EXAMINATION: AP and lateral 3 XRAY VIEWS OF THE LUMBAR SPINE02/21/2024 12:06 pm COMPARISON: CT abdomen pelvis 07/09/2018 HISTORY: ORDERING SYSTEM PROVIDED HISTORY: Reason for Exam: radicular pain, FINDINGS: There are 5 lumbar-type vertebral bodies with normal AP alignment. Mild superior endplate compression deformity of L1 and L4 are nonacute. There is disc space narrowing with endplate spurring at L1-2 and some calcification of the disc, chronic findings. Lower lumbar facet arthropathy. Symmetric SI joints. Moderate calcification of aorta. IMPRESSION: No acute findings. Chronic changes as described above. Interpreted by: Wolf Kenney MD Preliminary Report By: Wolf Kenney MD Electronically signed By Wolf Kenney MD Dictated Date: 02/24/2024 4:18:05 PM Prelim Date: 02/24/2024 4:20:13 PM Sign Date: 02/24/2024 4:20:13 PM Ordering Provider: [facility] ([place]) XR HIP 2-3 VIEWS LEFTon 04-3 XR HIP 2-3 VIEWS LEFT ORIGINAL EXAMINATION: 2 XRAY VIEWS OF THE LEFT HIP 02/17/2024 11:56 am COMPARISON: None. HISTORY: ORDERING SYSTEM PROVIDED HISTORY: Reason for Exam: pain FINDINGS: No acute fracture or dislocation is identified. Soft tissue calcifications noted. Mild joint space loss and spurring. There is no radiopaque foreign body. IMPRESSION: Mild degenerative changes. No fracture Interpreted by: Ren Gastelum MD Preliminary Report By: Ren Gastelum MD Electronically signed By Ren Gastelum MD Dictated Date: 02/18/2024 10:37:18 AM Prelim Date: 02/18/2024 10:38:19 AM Sign Date: 02/18/2024 10:38:19 AM Ordering Provider: LUIS Francisco [facility] ([place]) .Auto Diffon 02-17-2024 Basophil, Absolute 0.0 10 3/mcL Normal 0.0-0.2 [facility] ([place]) Comment on above: Performed By: #### O SMOS #### [address] [address] Basophils/100 WBC (Bld) 0.2 % Normal 0.0-2.5 [facility] ([place]) Comment on above: Performed By: #### O SMOS #### [address] [address] Eosinophil, Absolute 0.1 10 3/mcL Normal 0.0-0.4 [facility] ([place]) Comment on above: Performed By: #### O SMOS #### [address] [address] Eosinophils/100 WBC (Bld) 0.7 % Normal 0.0-7.0 [facility] ([place]) Comment on above: Performed By: #### O SMOS #### [address] [address] Lymphocyte, Absolute 1.5 10 3/mcL Normal 0.8-3.9 [facility] ([place]) Comment on above: Performed By: #### O SMOS #### [address] [address] Lymphocytes/100 WBC (Bld) 17.3 % Normal 10.0-50.0 [facility] ([place]) Comment on above: Performed By: #### O SMOS #### [address] [address] Monocyte, Absolute 0.6 10 3/mcL Normal 0.2-1.0 [facility] ([place]) Comment on above: Performed By: #### O SMOS #### [address] [address] Monocytes/100 WBC (Bld) 7.2 % Normal 1.7-13.0 [facility] ([place]) Comment on above: Performed By: #### O SMOS #### [address] [address] Neutrophils/100 WBC (Bld) 74.6 % Normal 37.0-80.0 [facility] ([place]) Comment on above: Performed By: #### O SMOS #### [address] [address] .GFRon 02-17-2024 GFR 50 ml/min/1.73sqm Normal [facility] ([place]) Comment on above: Result Comment: GFR Population mean for , Non- Americans Ages 20-29 = 116 mL/min/1.73 sq.m. Ages 30-39 = 107 mL/min/1.73 sq.m. Ages 40-49 = 99 mL/min/1.73 sq.m. Ages 50-59 = 93 mL/min/1.73 sq.m. Ages 60-69 = 85 mL/min/1.73 sq.m. Ages 70+ = 75 mL/min/1.73 sq.m. Chronic Kidney Disease: Less than 60 mL/min/1.73 square meters End Stage Renal Disease: Less than 15 mL/min/1.73 square meters Performed By: #### O SMOS #### [address] [address] GFR Non- 42 ml/min/1.73sqm Normal [facility] ([place]) Comment on above: Result Comment: GFR Population mean for , Non- Americans Ages 20-29 = 116 mL/min/1.73 sq.m. Ages 30-39 = 107 mL/min/1.73 sq.m. Ages 40-49 = 99 mL/min/1.73 sq.m. Ages 50-59 = 93 mL/min/1.73 sq.m. Ages 60-69 = 85 mL/min/1.73 sq.m. Ages 70+ = 75 mL/min/1.73 sq.m. Chronic Kidney Disease: Less than 60 mL/min/1.73 square meters End Stage Renal Disease: Less than 15 mL/min/1.73 square meters Performed By: #### O SMOS #### [address] [address] .NEUABSon 02-17-2024 Neutrophil, Absolute 6.4 10 3/mcL High 2.9-6.2 [facility] ([place]) Comment on above: Performed By: #### O SMOS #### [address] [address] BMPon 02-17-2024 BUN/Creatinine Ratio 20 ratio Normal 7-27 [facility] ([place]) Comment on above: Performed By: #### O SMOS #### [place] [id number] Calcium [Mass/Vol] 9.2 mg/dL Normal 8.4-10.2 [facility] ([place]) Comment on above: Performed By: #### O SMOS #### [place] [address] Chloride [Moles/Vol] 104 mmol/L Normal 98-107 [facility] ([place]) Comment on above: Performed By: #### O SMOS #### [place] [address] CO2 [Moles/Vol] 25 mmol/L Normal 23-31 [facility] ([place]) Comment on above: Performed By: #### O SMOS #### [place] [address] Creatinine [Mass/Vol] 1.27 mg/dL High 0.55-1.02 [facility] ([place]) Comment on above: Performed By: #### O SMOS #### [place] [id number] Electrolyte Balance 12.0 mEq/L Normal 4.0-15.0 [facility] ([place]) Comment on above: Performed By: #### O SMOS #### [place] [address] Glucose [Mass/Vol] 111 mg/dL High 83-110 [facility] ([place]) Comment on above: Performed By: #### O SMOS #### [address] [address] Potassium [Moles/Vol] 4.3 mmol/L Normal 3.5-5.1 [facility] ([place]) Comment on above: Performed By: #### O SMOS #### [address] [address] Sodium [Moles/Vol] 141 mmol/L Normal 136-145 [facility] ([place]) Comment on above: Performed By: #### O SMOS #### [address] [address] Urea nitrogen [Mass/Vol] 25 mg/dL High 7-18 [facility] ([place]) Comment on above: Performed By: #### O SMOS #### [address] [address] CBCon 02-17-2024 Erythrocyte distribution width (RBC) [Ratio] 16.5 % High 11.5-14.5 [facility] ([place]) Comment on above: Performed By: #### O SMOS #### [address] [address] Hematocrit (Bld) [Volume fraction] 33.3 % Low 37.0-47.0 [facility] ([place]) Comment on above: Performed By: #### O SMOS #### [address] [address] Hgb 11.1 G/dL Low 12.0-16.0 [facility] ([place]) Comment on above: Performed By: #### O SMOS #### [address] [address] MCH (RBC) [Entitic mass] 31.9 pg High 27.0-31.2 [facility] ([place]) Comment on above: Performed By: #### O SMOS #### [address] [address] MCHC 33.5 G/dL Normal 33.0-37.0 [facility] ([place]) Comment on above: Performed By: #### O SMOS #### [address] [address] MCV (RBC) [Entitic vol] 95.2 fL High 80.0-94.0 [facility] ([place]) Comment on above: Performed By: #### O SMOS #### [address] [address] Platelet 239 10 3/mcL Normal 130-400 [facility] ([place]) Comment on above: Performed By: #### O SMOS #### [address] [address] Platelet mean volume (Bld) [Entitic vol] 9.8 fL Normal 7.4-10.4 [facility] ([place]) Comment on above: Performed By: #### O SMOS #### [place] [id number] RBC 3.49 10 6/mcL Low 4.20-5.40 [facility] ([place]) Comment on above: Performed By: #### O SMOS #### [address] [address] WBC 8.6 10 3/mcL Normal 4.6-10.8 [facility] ([place]) Comment on above: Performed By: #### O SMOS #### [address] [address] LABORATORYOrdered By: SYSTEM SYSTEM on 02-17-2024 Basophil, Absolute 0.0 103/mcL Normal 0.0 - 0.2 10^3/mcL AO Workflow SS Basophils/100 WBC (Bld) 0.2 % Normal 0.0 - 2.5 % AO Workflow SS Calcium [Mass/Vol] 9.2 mg/dL Normal 8.4 - 10. 2 mg/dL AO ADM SS Chloride [Moles/Vol] 104 mmol/L Normal 98 - 10 7 mmol/L AO ADM SS CO2 [Moles/Vol] 25 mmol/L Normal 23 - 31 mmol/L AO ADM SS Creatinine [Mass/Vol] 1.27 mg/dL High 0.55 - 1.02 mg/dL AO ADM SS Electrolyte Balance 12.0 mEq/L Normal 4.0 - 15 .0 mEq/L AO ADM SS Eosinophil, Absolute 0.1 103/mcL Normal 0.0 - 0 .4 10^3/mcL AO Workflow SS Eosinophils/100 WBC (Bld) 0.7 % Normal 0.0 - 7.0 % AO Workflow SS Erythrocyte distribution width (RBC) [Ratio] 16.5 % High 11.5 - 14.5 % AO Workflow SS GFR/1.73 sq M.predicted among blacks MDRD (S/P/Bld) [Vol rate/Area] 50 ml/min/1.73sqm Invalid Interpretation Code AO Chemistry S Comment on above: Interpretive Data: GFR Population mean for , Non- Americans Ages 20-29 = 116 mL/min/1.73 sq.m. Ages 30-39 = 107 mL/min/1.73 sq.m. Ages 40-49 = 99 mL/min/1.73 sq.m. Ages 50-59 = 93 mL/min/1.73 sq.m. Ages 60-69 = 85 mL/min/1.73 sq.m. Ages 70+ = 75 mL/min/1.73 sq.m. Chronic Kidney Disease: Less than 60 mL/min/1.73 square meters End Stage Renal Disease: Less than 15 mL/min/1.73 square meters GFR/1.73 sq M.predicted among non-blacks MDRD (S/P/Bld) [Vol rate/Area] 42 ml/min/1.73sqm Invalid Interpretation Code AO Chemistry S Comment on above: Interpretive Data: GFR Population mean for , Non- Americans Ages 20-29 = 116 mL/min/1.73 sq.m. Ages 30-39 = 107 mL/min/1.73 sq.m. Ages 40-49 = 99 mL/min/1.73 sq.m. Ages 50-59 = 93 mL/min/1.73 sq.m. Ages 60-69 = 85 mL/min/1.73 sq.m. Ages 70+ = 75 mL/min/1.73 sq.m. Chronic Kidney Disease: Less than 60 mL/min/1.73 square meters End Stage Renal Disease: Less than 15 mL/min/1.73 square meters Glucose [Mass/Vol] 111 mg/dL High 83 - 110 mg/dL AO ADM SS Hematocrit (Bld) [Volume fraction] 33.3 % Low 37.0 - 47.0 % AO Workflow SS Hemoglobin (Bld) [Mass/Vol] 11.1 G/dL Low 12.0 - 16.0 G/dL AO Workflow SS Lymphocyte, Absolute 1.5 103/mcL Normal 0.8 - 3 .9 10^3/mcL AO Workflow SS Lymphocytes/100 WBC (Bld) 17.3 % Normal 10.0 - 50.0 % AO Workflow SS MCH (RBC) [Entitic mass] 31.9 pg High 27.0 - 31.2 pg AO Workflow SS MCHC 33.5 G/dL Normal 33.0 - 37.0 G/dL AO Workflow SS MCV (RBC) [Entitic vol] 95.2 fL High 80.0 - 94.0 fL AO Workflow SS Monocyte, Absolute 0.6 103/mcL Normal 0.2 - 1.0 10^3/mcL AO Workflow SS Monocytes/100 WBC (Bld) 7.2 % Normal 1.7 - 13.0 % AO Workflow SS Neutrophil, Absolute 6.4 103/mcL High 2.9 - 6 .2 10^3/mcL AO Workflow SS Neutrophils/100 WBC (Bld) 74.6 % Normal 37.0 - 80.0 % AO Workflow SS Platelet mean volume (Bld) [Entitic vol] 9.8 fL Normal 7.4 - 10.4 fL AO Workflow SS Platelets (Bld) [#/Vol] 239 103/mcL Normal 130 - 400 10^3/mcL AO Workflow SS Potassium [Moles/Vol] 4.3 mmol/L Normal 3.5 - 5.1 mmol/L AO ADM SS RBC (Bld) [#/Vol] 3.49 106/mcL Low 4.20 - 5.4 0 10^6/mcL AO Workflow SS Sodium [Moles/Vol] 141 mmol/L Normal 136 - 145 mmol/L AO ADM SS Urea nitrogen [Mass/Vol] 25 mg/dL High 7 - 18 mg/dL AO ADM SS Urea nitrogen/Creatinine [Mass ratio] 20 ratio Normal 7 - 27 ratio AO ADM SS WBC (Bld) [#/Vol] 8.6 103/mcL Normal 4.6 - 10.8 10^3/mcL AO Workflow SS [place] 08-30-2023 Gastrin 76.7 pg/mL Normal <115.0 [facility] ([place]) Comment on above: Result Comment: The Gastrin test was performed using the Siemens Immulite chemiluminescent immunometric method. Results obtained with different assay methods or kits cannot be used interchangeably. Performed By: [address] [address] Reinforcement Maker: Lucio Chairez III, M.D. CLIA#: [id number] Performed By: #### G AST, RETO ####[address] [place], [place] [address] RETO (AO)on 08-29-2023 Immature Retic Fraction 0.45 IRF Normal 0.20-0.46 [facility] ([place]) Comment on above: Performed By: #### G AST, RETO ####[address] [place], [place] [address] Reticulocytes, Auto 1.0 % Normal 0.2-2.3 [facility] ([place]) Comment on above: Performed By: #### G AST, RETO ####[address] [place], [place] [address] METon 08-06-2023 Methylmalonic Acid, Blood 0.42 umol/l High <=0.40 [facility] ([place]) Comment on above: Result Comment: This test was developed and its performance characteristics determined by [facility] [place] ([facility]). It has not been cleared or approved by the FDA. [facility] is regulated under CLIA as qualified to perform high-complexity testing. This test is used for clinical purposes. It should not be regarded as investigational or for research. Performed By: [address] [address] Reinforcement Maker: Lucio Chairez III, M.D. CLIA#: [id number] Performed By: #### R BCP #### [address] [address] .Auto Diffon 08-01-2023 Basophil, Absolute 0.0 10 3/mcL Normal 0.0-0.2 [facility] ([place] Comment on above: Performed By: #### M MA, ANEU, CBC, GFR, ADIFF, BMP ####Rita [place] [address]#### HOMO ####[address] [address] Basophils/100 WBC (Bld) 0.4 % Normal 0.0-2.5 [facility] ([place]) Comment on above: Performed By: #### Ranjit MA, ANEU, CBC, GFR, ADIFF, BMP ####[place] [address]#### HOMO ####[address] [address] Eosinophil, Absolute 0.1 10 3/mcL Normal 0.0-0.4 [facility] ([place]) Comment on above: Performed By: #### Ranjit MA, ANEU, CBC, GFR, ADIFF, BMP ####[place] [address]#### HOMO ####[address] [address] Eosinophils/100 WBC (Bld) 1.2 % Normal 0.0-7.0 [facility] ([place]) Comment on above: Performed By: #### Ranjit MA, ANEU, CBC, GFR, ADIFF, BMP ####[place] [address]#### HOMO ####[address] [address] Lymphocyte, Absolute 1.7 10 3/mcL Normal 0.8-3.9 [facility] ([place]) Comment on above: Performed By: #### Ranjit MA, ANEU, CBC, GFR, ADIFF, BMP ####[place] [address]#### HOMO ####[address] [address] Lymphocytes/100 WBC (Bld) 17.7 % Normal 10.0-50.0 [facility] ([place]) Comment on above: Performed By: #### Ranjit MA, ANEU, CBC, GFR, ADIFF, BMP ####[place] [address]#### HOMO ####[address] [address] Monocyte, Absolute 0.8 10 3/mcL Normal 0.2-1.0 [facility] ([place]) Comment on above: Performed By: #### Ranjit MA, ANEU, CBC, GFR, ADIFF, BMP ####Shahla [id number] [place], [place] [address]#### HOMO ####[address] [address] Monocytes/100 WBC (Bld) 7.8 % Normal 1.7-13.0 [facility] ([place]) Comment on above: Performed By: #### Ranjit MA, ANEU, CBC, GFR, ADIFF, BMP ####[address] [address]#### HOMO ####[address] [address] Neutrophils/100 WBC (Bld) 72.9 % Normal 37.0-80.0 [facility] ([place]) Comment on above: Performed By: #### M MA, ANEU, CBC, GFR, ADIFF, BMP ####[address] [address]#### HOMO ####[address] [address] .GFRon 08-01-2023 GFR Non- 41 ml/min/1.73sqm Normal [facility] ([place]) Comment on above: Result Comment: GFR Population mean for , Non- Americans Ages 20-29 = 116 mL/min/1.73 sq.m. Ages 30-39 = 107 mL/min/1.73 sq.m. Ages 40-49 = 99 mL/min/1.73 sq.m. Ages 50-59 = 93 mL/min/1.73 sq.m. Ages 60-69 = 85 mL/min/1.73 sq.m. Ages 70+ = 75 mL/min/1.73 sq.m. Chronic Kidney Disease: Less than 60 mL/min/1.73 square meters End Stage Renal Disease: Less than 15 mL/min/1.73 square meters Performed By: #### M MA, ANEU, CBC, GFR, ADIFF, BMP ####[place] [address]#### HOMO ####[address] [address] GFR 50 ml/min/1.73sqm Normal [facility] ([place]) Comment on above: Result Comment: GFR Population mean for , Non- Americans Ages 20-29 = 116 mL/min/1.73 sq.m. Ages 30-39 = 107 mL/min/1.73 sq.m. Ages 40-49 = 99 mL/min/1.73 sq.m. Ages 50-59 = 93 mL/min/1.73 sq.m. Ages 60-69 = 85 mL/min/1.73 sq.m. Ages 70+ = 75 mL/min/1.73 sq.m. Chronic Kidney Disease: Less than 60 mL/min/1.73 square meters End Stage Renal Disease: Less than 15 mL/min/1.73 square meters Performed By: #### Ranjit GARDNER, ANEU, CBC, GFR, ADIFF, BMP ####[place] [address]#### HOMO ####[place] [address] .NEUABSon 08-01-2023 Neutrophil, Absolute 7.0 10 3/mcL High 2.9-6.2 [facility] ([place]) Comment on above: Performed By: #### Ranjit GARDNER ANEU, CBC, GFR, ADIFF, BMP ####[place] [address]#### HOMO ####[place] [address] BMPon 08-01-2023 BUN/Creatinine Ratio 12 ratio Normal 7-27 [facility] ([place]) Comment on above: Performed By: #### Ranjit MA, ANEU, CBC, GFR, ADIFF, BMP ####[place] [address]#### HOMO ####[place] [address] Calcium [Mass/Vol] 9.4 mg/dL Normal 8.4-10.2 [facility] ([place]) Comment on above: Performed By: #### Ranjit GARDNER ANEU, CBC, GFR, ADIFF, BMP ####[place] [address]#### HOMO ####[place] [address] Chloride [Moles/Vol] 105 mmol/L Normal 98-107 [facility] ([place]) Comment on above: Performed By: #### Ranjit GARDNER, ANEU, CBC, GFR, ADIFF, BMP ####[place] [address]#### HOMO ####[place] [address] CO2 [Moles/Vol] 28 mmol/L Normal 23-31 [facility] ([place]) Comment on above: Performed By: #### Ranjit GARDNER ANEU, CBC, GFR, ADIFF, BMP ####[place] [address]#### HOMO ####[place] [address] Creatinine [Mass/Vol] 1.29 mg/dL High 0.55-1.02 [facility] ([place]) Comment on above: Performed By: #### Ranjit GARDNER ANEU, CBC, GFR, ADIFF, BMP ####[place] [address]#### HOMO ####[place] [address] Electrolyte Balance 9.0 mEq/L Normal 4.0-15.0 [facility] ([place]) Comment on above: Performed By: #### Ranjit GARDNER ANEU, CBC, GFR, ADIFF, BMP ####[place] [address]#### HOMO ####[place] [address] Glucose [Mass/Vol] 97 mg/dL Normal 83-110 [facility] ([place]) Comment on above: Performed By: #### Ranjit GARDNER, ANEU, CBC, GFR, ADIFF, BMP ####[address] [address]#### HOMO ####[address] [address] Potassium [Moles/Vol] 4.9 mmol/L Normal 3.5-5.1 [facility] ([place]) Comment on above: Performed By: #### Ranjit GARDNER, ANEU, CBC, GFR, ADIFF, BMP ####[place] [address]#### HOMO ####[place] [address] Sodium [Moles/Vol] 142 mmol/L Normal 136-145 [facility] ([place]) Comment on above: Performed By: #### Ranjit GARDNER, ANEU, CBC, GFR, ADIFF, BMP ####[place] [address]#### HOMO ####[place] [address] Urea nitrogen [Mass/Vol] 15 mg/dL Normal 7-18 [facility] ([place]) Comment on above: Performed By: #### Ranjit GARDNER, ANEU, CBC, GFR, ADIFF, BMP ####[place] [address]#### HOMO ####[place] [address] CBCon 08-01-2023 Erythrocyte distribution width (RBC) [Ratio] 16.3 % High 11.5-14.5 [facility] ([place]) Comment on above: Performed By: #### Ranjit MA, ANEU, CBC, GFR, ADIFF, BMP ####[place] [address]#### HOMO ####[address] [address] Hematocrit (Bld) [Volume fraction] 33.4 % Low 37.0-47.0 [facility] ([place]) Comment on above: Performed By: #### M MA, ANEU, CBC, GFR, ADIFF, BMP ####[place] [address]#### HOMO ####[place] [address] Hgb 11.0 G/dL Low 12.0-16.0 [facility] ([place]) Comment on above: Performed By: #### Ranjit GARDNER, ANEU, CBC, GFR, ADIFF, BMP ####[place] [address]#### HOMO ####[place] [address] MCH (RBC) [Entitic mass] 31.4 pg High 27.0-31.2 [facility] ([place]) Comment on above: Performed By: #### Ranjit GARDNER, ANEU, CBC, GFR, ADIFF, BMP ####[place] [address]#### HOMO ####[place] [address] MCHC 32.9 G/dL Low 33.0-37.0 [facility] ([place]) Comment on above: Performed By: #### Ranjit GARDNER ANEU, CBC, GFR, ADIFF, BMP ####[place] [address]#### HOMO ####[place] [address] MCV (RBC) [Entitic vol] 95.4 fL High 80.0-94.0 [facility] ([place]) Comment on above: Performed By: #### Ranjit GARDNER, ANEU, CBC, GFR, ADIFF, BMP ####[place] [address]#### HOMO ####[place] [address] Platelet 229 10 3/mcL Normal 130-400 [facility] ([place]) Comment on above: Performed By: #### Ranjit GARDNER, ANEU, CBC, GFR, ADIFF, BMP ####[place] [address]#### HOMO ####[place] [address] Platelet mean volume (Bld) [Entitic vol] 10.0 fL Normal 7.4-10.4 [facility] ([place]) Comment on above: Performed By: #### M KENDRA, ANEU, CBC, GFR, ADIFF, BMP ####[id number] [place] [address]#### HOMO ####[place] [address] RBC 3.50 10 6/mcL Low 4.20-5.40 [facility] ([place]) Comment on above: Performed By: #### Ranjit GARDNER, ANEU, CBC, GFR, ADIFF, BMP ####[place]la [id number] [place] [address]#### HOMO ####[place] [address] WBC 9.6 10 3/mcL Normal 4.6-10.8 [facility] ([place]) Comment on above: Performed By: #### Ranjit GARDNER, ANEU, CBC, GFR, ADIFF, BMP ####[place] [address]#### HOMO ####[place] [address] FEon 08-01-2023 Iron [Mass/Vol] 54 ug/dL Normal 50-170 [facility] ([place]) Comment on above: Performed By: #### F E, FERR ####[place] [id number] [place] [id number] [place] 08-01-2023 Ferritin [Mass/Vol] 74.0 ng/mL Normal 8.0-252.0 [facility] ([place]) Comment on above: Performed By: #### F E, FERR ####[place]la [id number] [place] [address] HOMOon 08-01-2023 Homocysteine 16.4 umol/l High 3.7-13.9 [facility] ([place]) Comment on above: Result Comment: No te - New Reference Range in effect 20 Performed By: #### R BCP #### [place] [address] LABORATORYOrdered By: SYSTEM SYSTEM on 08-01-2023 Basophil, Absolute 0.0 103/mcL Invalid Interpretation Code 0.0 - 0.2 10^3/mcL AO Workflow SS Basophils/100 WBC (Bld) 0.4 % Invalid Interpretation Code 0.0 - 2.5 % AO Workflow SS Calcium [Mass/Vol] 9.4 mg/dL Invalid Interpretation Code 8.4 - 10.2 mg/dL AO ADM SS Chloride [Moles/Vol] 105 mmol/L Invalid Interpretation Code 98 - 107 mmol/L AO ADM SS CO2 [Moles/Vol] 28 mmol/L Invalid Interpretation Code 23 - 31 mmol/L AO ADM SS Creatinine [Mass/Vol] 1.29 mg/dL Invalid Interpretation Code 0.55 - 1.02 mg/dL AO ADM SS Electrolyte Balance 9.0 mEq/L Invalid Interpretation Code 4.0 - 15.0 mEq/L AO ADM SS Eosinophil, Absolute 0.1 103/mcL Invalid Interpretation Code 0.0 - 0.4 10^3/mcL AO Workflow SS Eosinophils/100 WBC (Bld) 1.2 % Invalid Interpretation Code 0.0 - 7.0 % AO Workflow SS Erythrocyte distribution width (RBC) [Ratio] 16.3 % Invalid Interpretation Code 11.5 - 14.5 % AO Workflow SS Ferritin [Mass/Vol] 74.0 ng/mL Invalid Interpretation Code 8.0 - 252.0 ng/mL AO ADM SS GFR/1.73 sq M.predicted among blacks MDRD (S/P/Bld) [Vol rate/Area] 50 ml/min/1.73sqm Invalid Interpretation Code AO Chemistry S Comment on above: Interpretive Data: GFR Population mean for , Non- Americans Ages 20-29 = 116 mL/min/1.73 sq.m. Ages 30-39 = 107 mL/min/1.73 sq.m. Ages 40-49 = 99 mL/min/1.73 sq.m. Ages 50-59 = 93 mL/min/1.73 sq.m. Ages 60-69 = 85 mL/min/1.73 sq.m. Ages 70+ = 75 mL/min/1.73 sq.m. Chronic Kidney Disease: Less than 60 mL/min/1.73 square meters End Stage Renal Disease: Less than 15 mL/min/1.73 square meters GFR/1.73 sq M.predicted among non-blacks MDRD (S/P/Bld) [Vol rate/Area] 41 ml/min/1.73sqm Invalid Interpretation Code AO Chemistry S Comment on above: Interpretive Data: GFR Population mean for , Non- Americans Ages 20-29 = 116 mL/min/1.73 sq.m. Ages 30-39 = 107 mL/min/1.73 sq.m. Ages 40-49 = 99 mL/min/1.73 sq.m. Ages 50-59 = 93 mL/min/1.73 sq.m. Ages 60-69 = 85 mL/min/1.73 sq.m. Ages 70+ = 75 mL/min/1.73 sq.m. Chronic Kidney Disease: Less than 60 mL/min/1.73 square meters End Stage Renal Disease: Less than 15 mL/min/1.73 square meters Glucose [Mass/Vol] 97 mg/dL Invalid Interpretation Code 83 - 110 mg/dL AO ADM SS Hematocrit (Bld) [Volume fraction] 33.4 % Invalid Interpretation Code 37.0 - 47.0 % AO Workflow SS Hemoglobin (Bld) [Mass/Vol] 11.0 G/dL Invalid Interpretation Code 12.0 - 16.0 G/dL AO Workflow SS Homocysteine [Moles/Vol] 16.4 umol/L Invalid Interpretation Code 3.7 - 13.9 umol/L AH ADM SS Comment on above: Interpretive Data: * *Note - New Reference Range in effect 20 Iron [Mass/Vol] 54 ug/dL Invalid Interpretation Code 50 - 170 mcg/dL AO ADM SS Lymphocyte, Absolute 1.7 103/mcL Invalid Interpretation Code 0.8 - 3.9 10^3/mcL AO Workflow SS Lymphocytes/100 WBC (Bld) 17.7 % Invalid Interpretation Code 10.0 - 50.0 % AO Workflow SS MCH (RBC) [Entitic mass] 31.4 pg Invalid Interpretation Code 27.0 - 31.2 pg AO Workflow SS MCHC 32.9 G/dL Invalid Interpretation Code 33.0 - 37.0 G/dL AO Workflow SS MCV (RBC) [Entitic vol] 95.4 fL Invalid Interpretation Code 80.0 - 94.0 fL AO Workflow SS Monocyte, Absolute 0.8 103/mcL Invalid Interpretation Code 0.2 - 1.0 10^3/mcL AO Workflow SS Monocytes/100 WBC (Bld) 7.8 % Invalid Interpretation Code 1.7 - 13.0 % AO Workflow SS Neutrophil, Absolute 7.0 103/mcL Invalid Interpretation Code 2.9 - 6.2 10^3/mcL AO Workflow SS Neutrophils/100 WBC (Bld) 72.9 % Invalid Interpretation Code 37.0 - 80.0 % AO Workflow SS Platelet mean volume (Bld) [Entitic vol] 10.0 fL Invalid Interpretation Code 7.4 - 10.4 fL AO Workflow SS Platelets (Bld) [#/Vol] 229 103/mcL Invalid Interpretation Code 130 - 400 10^3/mcL AO Workflow SS Potassium [Moles/Vol] 4.9 mmol/L Invalid Interpretation Code 3.5 - 5.1 mmol/L AO ADM SS RBC (Bld) [#/Vol] 3.50 106/mcL Invalid Interpretation Code 4.20 - 5.40 10^6/mcL AO Workflow SS Sodium [Moles/Vol] 142 mmol/L Invalid Interpretation Code 136 - 145 mmol/L AO ADM SS Urea nitrogen [Mass/Vol] 15 mg/dL Invalid Interpretation Code 7 - 18 mg/dL AO ADM SS Urea nitrogen/Creatinine [Mass ratio] 12 ratio Invalid Interpretation Code 7 - 27 ratio AO ADM SS WBC (Bld) [#/Vol] 9.6 103/mcL Invalid Interpretation Code 4.6 - 10.8 10^3/mcL AO Workflow SS MA MAMMOGRAM SCREENING BILAT ERAL W/TOMOon 06-25-2023 MA MAMMOGRAM SCREENING BILATERAL W/ANTHONY ORIGINAL FROM: [address] [address] PROCEDURE FOR: HERB VALDES [address] [place] [id number] Home: PID#: [id number] Exam#: [id number] : 1955 Age: 68 TO: LUIS ELLIOTT APRN [facility] [place], [place] [address] Fax: NO FAX EXAMINATION: SCREENING DIGITAL BILATERAL MAMMOGRAM WITH TOMOSYNTHESIS, 2023 2:07 pm TECHNIQUE: Screening mammography of the bilateral breasts was performed with tomosynthesis. 2D standard and 3D tomosynthesis combination imaging performed through both breasts in the MLO and CC projection. Computer aided detection was utilized in the interpretation of this exam. COMPARISON: 05/01/2021, 07/24/2019 HISTORY: Breast cancer screening. FINDINGS: BREAST DENSITY: Heterogeneously dense There are benign appearing calcifications in both breasts. There are no significant masses or calcifications. IMPRESSION: No mammographic evidence of malignancy. Continued screening with annual mammograms is recommended. BIRADS: MAMMOGRAM BI-RADS: 2: Benign finding RECALL: 1 year screening RECALL TYPE: mammo LETTER SENT: Normal BI-RADS 1 and 2 Interpreted by: Trung Austin MD Preliminary Report By: Trung Austin MD Electronically signed By Trung Austin MD Dictated Date: 06/25/2023 7:11:18 PM Prelim Date: 06/25/2023 7:12:43 PM Sign Date: 06/25/2023 7:12:43 PM Ordering Provider: LUIS ELLIOTT Sheet Metal Operator: RIA JOHNSON RT (R)(M) letter sent: Normal BI-RADS 1 and 2 Mammogram BI-RADS: 2 Benign Normal [facility] ([place]) BD BONE DENSITY DEXA AXIAL S [facility] 2023 BD BONE DENSITY DEXA AXIAL SKELETON ORIGINAL EXAMINATION: BONE DENSITOMETRY 2023 3:18 pm TECHNIQUE: A bone density dual x-ray absorptiometry (DEXA) scan was performed of the lumbar spine and left hip. COMPARISON: 05/01/2021. HISTORY: ORDERING SYSTEM PROVIDED HISTORY: Reason for Exam: Osteoporosis Screening FINDINGS: T Score Left Femoral Neck: -1.4 Left Femoral Neck: 0.775 (g/cm2) T Score Left Hip: -2.2 Left Hip: 0.607 (g/cm2) T Score Lumbar Spine: -1.7 Lumbar Spine: 0.857 (g/cmd2) BMD change from previous hip:-1.7% BMD change from previous lumbar Spine: 3% FRAX: 10 year fracture risk assessment Major osteoporotic fracture: 20% Hip fracture: 4% IMPRESSION: Osteopenia by WHO criteria. *By the World Health Organization criteria: (Comparing with young normal sex matched population) - Normal: T-score at or above -1 SD (standard deviation) - Osteopenia: T-score between -1 and -2.5 SD - Osteoporosis: T-score at or below -2.5 SD Interpreted by: Trung Maldonado DO Preliminary Report By: Trung Maldonado DO Electronically signed By Trung Maldonado DO Dictated Date: 2023 3:44:16 PM Prelim Date: 2023 3:45:59 PM Sign Date: 2023 3:45:59 PM Ordering Provider: LUIS ELLIOTT [facility] ([place]) LABORATORYOrdered By: Shanna Albarado on 05-29-2023 Albumin DL <= 20 mg/L (U) [Mass/Vol] 3685 mcg/dL Invalid Interpretation Code AO ADM SS Albumin/Creatinine DL <= 20 mg/L (U) [Mass ratio] 14 mcg/mg Invalid Interpretation Code 0 - 30 mcg/mg AO ADM SS Creatinine (U) [Mass/Vol] 271.0 mg/dL Invalid Interpretation Code 28.0 - 117.0 mg/dL AO ADM SS LABORATORYOrdered By: Shanna Albarado on 09-10-2022 Albumin BCP dye [Mass/Vol] 3.9 G/dL Invalid Interpretation Code 3.4 - 4.8 G/dL AO ADM SS Albumin/Globulin [Mass ratio] 1.1 {ratio} Invalid Interpretation Code 1.1 - 2.5 ratio AO ADM SS ALP [Catalytic activity/Vol] 106 U/L Invalid Interpretation Code 40 - 135 U/L AO ADM SS ALT With P-5'-P [Catalytic activity/Vol] 19 U/L Invalid Interpretation Code 14 - 59 U/L AO ADM SS AST With P-5'-P [Catalytic activity/Vol] 18 U/L Invalid Interpretation Code 10 - 40 U/L AO ADM SS Bilirubin [Mass/Vol] 0.4 mg/dL Invalid Interpretation Code 0.2 - 1.0 mg/dL AO ADM SS Calcium [Mass/Vol] 9.3 mg/dL Invalid Interpretation Code 8.4 - 10.2 mg/dL AO ADM SS Chloride [Moles/Vol] 103 mmol/L Invalid Interpretation Code 98 - 107 mmol/L AO ADM SS CO2 [Moles/Vol] 27 mmol/L Invalid Interpretation Code 23 - 31 mmol/L AO ADM SS Creatinine [Mass/Vol] 1.12 mg/dL Invalid Interpretation Code 0.55 - 1.02 mg/dL AO ADM SS Electrolyte Balance 9.0 mEq/L Invalid Interpretation Code 4.0 - 15.0 mEq/L AO ADM SS Globulin 3.6 G/dL Invalid Interpretation Code AO ADM SS Glucose [Mass/Vol] 98 mg/dL Invalid Interpretation Code 80 - 115 mg/dL AO ADM SS Potassium [Moles/Vol] 4.5 mmol/L Invalid Interpretation Code 3.5 - 5.1 mmol/L AO ADM SS Protein [Mass/Vol] 7.5 G/dL Invalid Interpretation Code 6.4 - 8.2 G/dL AO ADM SS Sodium [Moles/Vol] 139 mmol/L Invalid Interpretation Code 136 - 145 mmol/L AO ADM SS Urea nitrogen [Mass/Vol] 17 mg/dL Invalid Interpretation Code 7 - 18 mg/dL AO ADM SS Urea nitrogen/Creatinine [Mass ratio] 15 ratio Invalid Interpretation Code 7 - 27 ratio AO ADM SS LABORATORYOrdered By: Tylor Ford on 09-10-2022 Appearance (U) Clear (09/10/22 3:13 PM) Invalid Interpretation Code Clear AO Auto Urine SS Bilirubin Ql (U) Negative (09/10/22 3:13 PM) Invalid Interpretation Code Negative AO Auto Urine SS Color (U) Yellow (09/10/22 3:13 PM) Invalid Interpretation Code AO Auto Urine SS Glucose Test strip (U) [Mass/Vol] Negative Invalid Interpretation Code Negativemg/ dL AO Auto Urine SS Hemoglobin Auto test strip (U) [Mass/Vol] Trace *ABN* (09/10/22 3:13 PM) Invalid Interpretation Code Negative AO Auto Urine SS Ketones Ql (U) Negative Invalid Interpretation Code Negativemg/ dL AO Auto Urine SS UA Leuk Est Small *ABN* (09/10/22 3:13 PM) Invalid Interpretation Code Negative AO Auto Urine SS UA Nitrite Negative (09/10/22 3:13 PM) Invalid Interpretation Code Negative AO Auto Urine SS UA pH 5.5 (09/10/22 3:13 PM) Invalid Interpretation Code 5.0 - 8.0 AO Auto Urine SS UA Protein Negative Invalid Interpretation Code Negativemg/ dL AO Auto Urine SS UA RBC None Seen /HPF Invalid Interpretation Code None Seen/HPF AO Auto Urine SS UA Spec Grav 1.020 (09/10/22 3:13 PM) Invalid Interpretation Code 1.015-1.025 AO Auto Urine SS UA Specimen Type Clean Catch (09/10/22 3:13 PM) Invalid Interpretation Code AO Auto Urine SS UA Squam Epithelial 0-5 /HPF Invalid Interpretation Code None Seen/HPF AO Auto Urine SS UA Urobilinogen 0.2 E.U./dL Invalid Interpretation Code 0.2-1.0E.U. /dL AO Auto Urine SS WBC LM.HPF (Urine sed) [#/Area] 0-5 /HPF Invalid Interpretation Code None Seen/HPF AO Auto Urine SS LABORATORYOrdered By: Tylor Vasquez on 09-10-2022 Basophil, Absolute 0.0 103/mcL Invalid Interpretation Code 0.0 - 0.2 10^3/mcL AO Workflow SS Basophils/100 WBC (Bld) 0.5 % Invalid Interpretation Code 0.0 - 2.5 % AO Workflow SS Eosinophil, Absolute 0.1 103/mcL Invalid Interpretation Code 0.0 - 0.4 10^3/mcL AO Workflow SS Eosinophils/100 WBC (Bld) 1.9 % Invalid Interpretation Code 0.0 - 7.0 % AO Workflow SS Erythrocyte distribution width (RBC) [Ratio] 16.1 % Invalid Interpretation Code 11.5 - 14.5 % AO Workflow SS Hematocrit (Bld) [Volume fraction] 33.1 % Invalid Interpretation Code 37.0 - 47.0 % AO Workflow SS Hemoglobin (Bld) [Mass/Vol] 11.1 G/dL Invalid Interpretation Code 12.0 - 16.0 G/dL AO Workflow SS Lymphocyte, Absolute 1.9 103/mcL Invalid Interpretation Code 0.8 - 3.9 10^3/mcL AO Workflow SS Lymphocytes/100 WBC (Bld) 26.6 % Invalid Interpretation Code 10.0 - 50.0 % AO Workflow SS MCH (RBC) [Entitic mass] 31.1 pg Invalid Interpretation Code 27.0 - 31.2 pg AO Workflow SS MCHC 33.4 G/dL Invalid Interpretation Code 33.0 - 37.0 G/dL AO Workflow SS MCV (RBC) [Entitic vol] 93.2 fL Invalid Interpretation Code 80.0 - 94.0 fL AO Workflow SS Monocyte, Absolute 0.6 103/mcL Invalid Interpretation Code 0.2 - 1.0 10^3/mcL AO Workflow SS Monocytes/100 WBC (Bld) 7.7 % Invalid Interpretation Code 1.7 - 13.0 % AO Workflow SS Neutrophil, Absolute 4.6 103/mcL Invalid Interpretation Code 2.9 - 6.2 10^3/mcL AO Workflow SS Neutrophils/100 WBC (Bld) 63.3 % Invalid Interpretation Code 37.0 - 80.0 % AO Workflow SS Platelet mean volume (Bld) [Entitic vol] 10.2 fL Invalid Interpretation Code 7.4 - 10.4 fL AO Workflow SS Platelets (Bld) [#/Vol] 167 103/mcL Invalid Interpretation Code 130 - 400 10^3/mcL AO Workflow SS RBC (Bld) [#/Vol] 3.55 106/mcL Invalid Interpretation Code 4.20 - 5.40 10^6/mcL AO Workflow SS WBC (Bld) [#/Vol] 7.3 103/mcL Invalid Interpretation Code 4.6 - 10.8 10^3/mcL AO Workflow SS LABORATORYOrdered By: SYSTEM SYSTEM on 09-10-2022 GFR 58 ml/min/1.73sqm Invalid Interpretation Code AO Chemistry S GFR Non- 48 ml/min/1.73sqm Invalid Interpretation Code AO Chemistry S LABORATORYOrdered By: Tylor Vasquez on 05-02-2022 Appearance (U) Clear (05/02/22 1:57 PM) Invalid Interpretation Code Clear AO Auto Urine SS Bacteria LM.HPF (Urine sed) [#/Area] Trace /HPF Invalid Interpretation Code AO Auto Urine SS Bilirubin Ql (U) Negative (05/02/22 1:57 PM) Invalid Interpretation Code Negative AO Auto Urine SS Color (U) Yellow (05/02/22 1:57 PM) Invalid Interpretation Code AO Auto Urine SS Glucose Test strip (U) [Mass/Vol] Negative Invalid Interpretation Code Negativemg/ dL AO Auto Urine SS Hemoglobin Auto test strip (U) [Mass/Vol] Negative (05/02/22 1:57 PM) Invalid Interpretation Code Negative AO Auto Urine SS Ketones Ql (U) Negative Invalid Interpretation Code Negativemg/ dL AO Auto Urine SS UA Leuk Est Small *ABN* (05/02/22 1:57 PM) Invalid Interpretation Code Negative AO Auto Urine SS UA Nitrite Negative (05/02/22 1:57 PM) Invalid Interpretation Code Negative AO Auto Urine SS UA pH 6.5 (05/02/22 1:57 PM) Invalid Interpretation Code 5.0 - 8.0 AO Auto Urine SS UA Protein Negative Invalid Interpretation Code Negativemg/ dL AO Auto Urine SS UA RBC 0-5 /HPF Invalid Interpretation Code None Seen/HPF AO Auto Urine SS UA Spec Grav 1.025 (05/02/22 1:57 PM) Invalid Interpretation Code 1.015-1.025 AO Auto Urine SS UA Specimen Type Clean Catch (05/02/22 1:57 PM) Invalid Interpretation Code AO Auto Urine SS UA Squam Epithelial 10-15 /HPF Invalid Interpretation Code None Seen/HPF AO Auto Urine SS UA Urobilinogen 0.2 E.U./dL Invalid Interpretation Code 0.2-1.0E.U. /dL AO Auto Urine SS WBC LM.HPF (Urine sed) [#/Area] 0-5 /HPF Invalid Interpretation Code None Seen/HPF AO Auto Urine SS LABORATORYOrdered By: Orly Parsons on 05-01-2022 Basophil, Absolute 0.0 103/mcL Invalid Interpretation Code 0.0 - 0.2 10^3/mcL AO Workflow SS Basophils/100 WBC (Bld) 1.0 % Invalid Interpretation Code 0.0 - 2.5 % AO Workflow SS Eosinophil, Absolute 0.1 103/mcL Invalid Interpretation Code 0.0 - 0.4 10^3/mcL AO Workflow SS Eosinophils/100 WBC (Bld) 2.0 % Invalid Interpretation Code 0.0 - 7.0 % AO Workflow SS Erythrocyte distribution width (RBC) [Ratio] 15.5 % Invalid Interpretation Code 11.5 - 14.5 % AO Workflow SS Hematocrit (Bld) [Volume fraction] 34.1 % Invalid Interpretation Code 37.0 - 47.0 % AO Workflow SS Hemoglobin (Bld) [Mass/Vol] 11.4 G/dL Invalid Interpretation Code 12.0 - 16.0 G/dL AO Workflow SS Lymphocyte, Absolute 1.3 103/mcL Invalid Interpretation Code 0.8 - 3.9 10^3/mcL AO Workflow SS Lymphocytes/100 WBC (Bld) 22.0 % Invalid Interpretation Code 10.0 - 50.0 % AO Workflow SS MCH (RBC) [Entitic mass] 31.7 pg Invalid Interpretation Code 27.0 - 31.2 pg AO Workflow SS MCHC 33.6 G/dL Invalid Interpretation Code 33.0 - 37.0 G/dL AO Workflow SS MCV (RBC) [Entitic vol] 94.5 fL Invalid Interpretation Code 80.0 - 94.0 fL AO Workflow SS Monocyte, Absolute 0.5 103/mcL Invalid Interpretation Code 0.2 - 1.0 10^3/mcL AO Workflow SS Monocytes/100 WBC (Bld) 8.4 % Invalid Interpretation Code 1.7 - 13.0 % AO Workflow SS Neutrophil, Absolute 4.1 103/mcL Invalid Interpretation Code 2.9 - 6.2 10^3/mcL AO Workflow SS Neutrophils/100 WBC (Bld) 66.3 % Invalid Interpretation Code 37.0 - 80.0 % AO Workflow SS Platelet Estimate Normal (05/01/22 10:36 AM) Invalid Interpretation Code AO Hematology S Platelet mean volume (Bld) [Entitic vol] 11.5 fL Invalid Interpretation Code 7.4 - 10.4 fL AO Workflow SS Platelets (Bld) [#/Vol] 188 103/mcL Invalid Interpretation Code 130 - 400 10^3/mcL AO Workflow SS RBC (Bld) [#/Vol] 3.61 106/mcL Invalid Interpretation Code 4.20 - 5.40 10^6/mcL AO Workflow SS WBC 6.2 103/mcL Invalid Interpretation Code 4.6 - 10.8 10^3/mcL AO Workflow SS LABORATORYOrdered By: Zohreh Rene on 01-31-2022 Appearance (U) Clear (01/31/22 9:49 AM) Invalid Interpretation Code Clear AO Auto Urine SS Bilirubin Ql (U) Negative (01/31/22 9:49 AM) Invalid Interpretation Code Negative AO Auto Urine SS Color (U) Yellow (01/31/22 9:49 AM) Invalid Interpretation Code AO Auto Urine SS Glucose Test strip (U) [Mass/Vol] Negative Invalid Interpretation Code Negativemg/ dL AO Auto Urine SS Hemoglobin Auto test strip (U) [Mass/Vol] Negative (01/31/22 9:49 AM) Invalid Interpretation Code Negative AO Auto Urine SS Ketones Ql (U) Negative Invalid Interpretation Code Negativemg/ dL AO Auto Urine SS UA Leuk Est Trace *ABN* (01/31/22 9:49 AM) Invalid Interpretation Code Negative AO Auto Urine SS UA Nitrite Negative (01/31/22 9:49 AM) Invalid Interpretation Code Negative AO Auto Urine SS UA pH 6.0 (01/31/22 9:49 AM) Invalid Interpretation Code 5.0 - 8.0 AO Auto Urine SS UA Protein Negative Invalid Interpretation Code Negativemg/ dL AO Auto Urine SS UA RBC None Seen /HPF Invalid Interpretation Code None Seen/HPF AO Auto Urine SS UA Spec Grav 1.025 (01/31/22 9:49 AM) Invalid Interpretation Code 1.015-1.025 AO Auto Urine SS UA Specimen Type Clean Catch (01/31/22 9:49 AM) Invalid Interpretation Code AO Auto Urine SS UA Squam Epithelial 0-5 /HPF Invalid Interpretation Code None Seen/HPF AO Auto Urine SS UA Urobilinogen 0.2 E.U./dL Invalid Interpretation Code 0.2-1.0E.U. /dL AO Auto Urine SS WBC LM.HPF (Urine sed) [#/Area] 0-5 /HPF Invalid Interpretation Code None Seen/HPF AO Auto Urine SS LABORATORYOrdered By: Cristian Jalloh on 01-31-2022 Albumin BCP dye [Mass/Vol] 3.8 G/dL Invalid Interpretation Code 3.4 - 4.8 G/dL AO ADM SS Albumin/Globulin [Mass ratio] 1.0 {ratio} Invalid Interpretation Code 1.1 - 2.5 ratio AO ADM SS ALP [Catalytic activity/Vol] 105 U/L Invalid Interpretation Code 40 - 135 U/L AO ADM SS ALT With P-5'-P [Catalytic activity/Vol] 18 U/L Invalid Interpretation Code 14 - 59 U/L AO ADM SS AST With P-5'-P [Catalytic activity/Vol] 20 U/L Invalid Interpretation Code 10 - 40 U/L AO ADM SS Bilirubin [Mass/Vol] 0.4 mg/dL Invalid Interpretation Code 0.2 - 1.0 mg/dL AO ADM SS Calcium [Mass/Vol] 9.2 mg/dL Invalid Interpretation Code 8.4 - 10.2 mg/dL AO ADM SS Chloride [Moles/Vol] 107 mmol/L Invalid Interpretation Code 98 - 107 mmol/L AO ADM SS Cholesterol [Mass/Vol] 154 mg/dL Invalid Interpretation Code 0 - 200 mg/dL AO ADM SS Cholesterol in HDL [Mass/Vol] 43 mg/dL Invalid Interpretation Code 40 - 60 mg/dL AO ADM SS Cholesterol in LDL [Mass/Vol] 89 mg/dL Invalid Interpretation Code 0 - 130 mg/dL AO ADM SS CO2 [Moles/Vol] 29 mmol/L Invalid Interpretation Code 23 - 31 mmol/L AO ADM SS Creatinine [Mass/Vol] 1.25 mg/dL Invalid Interpretation Code 0.55 - 1.02 mg/dL AO ADM SS Electrolyte Balance 7.0 mEq/L Invalid Interpretation Code 4.0 - 15.0 mEq/L AO ADM SS Globulin 3.7 G/dL Invalid Interpretation Code AO ADM SS Glucose [Mass/Vol] 94 mg/dL Invalid Interpretation Code 80 - 115 mg/dL AO ADM SS Potassium [Moles/Vol] 4.6 mmol/L Invalid Interpretation Code 3.5 - 5.1 mmol/L AO ADM SS Protein [Mass/Vol] 7.5 G/dL Invalid Interpretation Code 6.4 - 8.2 G/dL AO ADM SS Sodium [Moles/Vol] 143 mmol/L Invalid Interpretation Code 136 - 145 mmol/L AO ADM SS Triglyceride [Mass/Vol] 112 mg/dL Invalid Interpretation Code 0 - 150 mg/dL AO ADM SS Urea nitrogen [Mass/Vol] 19 mg/dL Invalid Interpretation Code 7 - 18 mg/dL AO ADM SS Urea nitrogen/Creatinine [Mass ratio] 15 ratio Invalid Interpretation Code 7 - 27 ratio AO ADM SS LABORATORYOrdered By: Komal Vega on 01-31-2022 Basophil, Absolute 0.00 103/mcL Invalid Interpretation Code 0.00 - 0.19 10^3/mcL AO Auto Heme SS Basophils/100 WBC (Bld) 0.7 % Invalid Interpretation Code 0.0 - 2.5 % AO Auto Heme SS Eosinophil, Absolute 0.20 103/mcL Invalid Interpretation Code 0.00 - 0.40 10^3/mcL AO Auto Heme SS Eosinophils/100 WBC (Bld) 2.6 % Invalid Interpretation Code 0.0 - 7.0 % AO Auto Heme SS Erythrocyte distribution width (RBC) [Ratio] 16.6 % Invalid Interpretation Code 11.5 - 14.5 % AO Auto Heme SS Hematocrit (Bld) [Volume fraction] 31.9 % Invalid Interpretation Code 37.0 - 47.0 % AO Auto Heme SS Hemoglobin (Bld) [Mass/Vol] 10.6 G/dL Invalid Interpretation Code 12.0 - 16.0 G/dL AO Auto Heme SS Lymphocyte, Absolute 1.50 103/mcL Invalid Interpretation Code 0.77 - 3.85 10^3/mcL AO Auto Heme SS Lymphocytes/100 WBC (Bld) 26.1 % Invalid Interpretation Code 10.0 - 50.0 % AO Auto Heme SS MCH (RBC) [Entitic mass] 30.4 pg Invalid Interpretation Code 27.0 - 31.2 pg AO Auto Heme SS MCHC (RBC) [Mass/Vol] 33.1 G/dL Invalid Interpretation Code 33.0 - 37.0 G/dL AO Auto Heme SS MCV (RBC) [Entitic vol] 91.7 fL Invalid Interpretation Code 80.0 - 94.0 fL AO Auto Heme SS Monocyte, Absolute 0.60 103/mcL Invalid Interpretation Code 0.15 - 1.00 10^3/mcL AO Auto Heme SS Monocytes/100 WBC (Bld) 10.3 % Invalid Interpretation Code 1.7 - 13.0 % AO Auto Heme SS Neutrophil, Absolute 3.50 103/mcL Invalid Interpretation Code 2.85 - 6.16 10^3/mcL AO Auto Heme SS Neutrophils/100 WBC (Bld) 60.3 % Invalid Interpretation Code 37.0 - 80.0 % AO Auto Heme SS Platelet mean volume (Bld) [Entitic vol] 10.4 fL Invalid Interpretation Code 7.4 - 10.4 fL AO Auto Heme SS Platelets (Bld) [#/Vol] 186 103/mcL Invalid Interpretation Code 130 - 400 10^3/mcL AO Auto Heme SS RBC (Bld) [#/Vol] 3.48 106/mcL Invalid Interpretation Code 4.20 - 5.40 10^6/mcL AO Auto Heme SS WBC (Bld) [#/Vol] 5.80 103/mcL Invalid Interpretation Code 4.60 - 10.80 10^3/mcL AO Auto Heme SS LABORATORYOrdered By: SYSTEM SYSTEM on 01-31-2022 GFR 52 ml/min/1.73sqm Invalid Interpretation Code AO Chemistry S GFR Non- 43 ml/min/1.73sqm Invalid Interpretation Code AO Chemistry S No Panel Informationon 01-31 Culture Urine 10,000 - 50,000 cfu/ ml Multiple bacterial morphotypes present. Probable Contamination. Suggest recollection if clinically indicated. [facility] Vital Signs Date Time Vital Sign Value Performing Clinician Facility 08-05-2024 11:50-0400 Body temperature 97.7 [degF] DR MAGED PEDRO MD [facility] 08-05-2024 11:50-0400 Diastolic Blood Pressure Non-Invasive 89 mm[Hg] DR MAGED PEDRO MD [facility] 08-05-2024 11:50-0400 Heart rate 78 /min DR MAGED PEDRO MD [facility] 08-05-2024 11:50-0400 Reason For Taking VItal Signs DR MAGED PEDRO MD [facility] 08-05-2024 11:50-0400 Respiratory rate 18 /min DR MAGED PEDRO MD [facility] 08-05-2024 11:50-0400 Systolic Blood Pressure Non-Invasive 159 mm[Hg] DR MAGED PEDRO MD [facility] 08-05-2024 07:10-0400 Body temperature 97.7 [degF] DR MAGED PEDRO MD [facility] 08-05-2024 07:10-0400 Diastolic Blood Pressure Non-Invasive 76 mm[Hg] DR MAGED PEDRO MD [facility] 08-05-2024 07:10-0400 Heart rate 79 /min DR MAGED PEDRO MD [facility] 08-05-2024 07:10-0400 Respiratory rate 16 /min DR MAGED PEDRO MD [facility] 08-05-2024 07:10-0400 Systolic Blood Pressure Non-Invasive 126 mm[Hg] DR MAGED PEDRO MD [facility] 08-05-2024 04:21-0400 Body temperature 97.88 [degF] DR MAGED PEDRO MD [facility] 08-05-2024 04:21-0400 Diastolic Blood Pressure Non-Invasive 72 mm[Hg] DR MAGED PEDRO MD [facility] 08-05-2024 04:21-0400 Heart rate 58 /min DR MAGED PEDRO MD [facility] 08-05-2024 04:21-0400 Respiratory rate 16 /min DR MAGED PEDRO MD [facility] 08-05-2024 04:21-0400 Systolic Blood Pressure Non-Invasive 107 mm[Hg] DR MAGED PEDRO MD [facility] 08-04-2024 22:53-0400 Heart rate 78 /min DR MAGED PDERO MD [facility] 08-04-2024 21:20-0400 Heart rate 78 /min DR MAGED PEDRO MD [facility] 08-04-2024 14:10-0400 Heart rate 70 /min DR MAGED PEDRO MD [facility] 08-04-2024 13:56-0400 Body height [address] MAGED PEDRO MD [facility] 08-04-2024 13:56-0400 Body weight [address] MAGED PEDRO MD [facility] 08-04-2024 13:56-0400 Body weight 23.42 kg/m2 DR MAGED PEDRO MD [facility] 08-04-2024 12:40-0400 Body temperature 96.8 [degF] DR MAGED PEDRO MD [facility] 08-04-2024 12:35-0400 Respiratory Rate - Anes 0 br/min DR MAGED PEDRO MD [facility] 08-04-2024 12:30-0400 Respiratory Rate - Anes 12 br/min DR MAGED PEDRO MD [facility] 08-04-2024 12:25-0400 Respiratory Rate - Anes 12 br/min DR MAGED PEDRO MD [facility] 08-04-2024 09:11-0400 Body height [address] MAGED PEDRO MD [facility] 08-04-2024 09:11-0400 Body temperature 97.16 [degF] DR MAGED PEDRO MD [facility] 08-04-2024 09:11-0400 Body weight [address] MAGED PEDRO MD [facility] 07-14-2024 12:52-0400 Blood Pressure Cuff Size DR MAGED PEDRO MD [facility] 07-14-2024 12:52-[address] MAGED PEDRO MD [facility] 07-14-2024 12:52-[address] MAGED Jimenez [facility] 07-14-2024 12:52-0400 Body height [address] MAGED PEDRO MD [facility] 07-14-2024 12:52-0400 Body weight 57.[address] MAGED PEDRO MD [facility] 07-14-2024 12:52-0400 Body weight 24.06 kg/m2 DR MAGED PEDRO MD [facility] 07-14-2024 12:52-0400 Diastolic Blood Pressure Non-Invasive 88 mm[Hg] DR MAGED PEDRO MD [facility] 07-14-2024 12:52-0400 Heart rate 67 /min DR MAGED PEDRO MD [facility] 07-14-2024 12:52-0400 Systolic Blood Pressure Non-Invasive 167 mm[Hg] DR MAGED PEDRO MD [facility] 06-17-2024 13:58-0400 Body height 155 cm Jaswinder Masci DO Work Phone: [facility] 06-17-2024 13:58-0400 Body mass index (BMI) [Ratio] 23.88 kg/m2 Jaswinder Masci DO Work Phone: [facility] 06-17-2024 13:58-0400 Body temperature 96.69 [degF] Jaswinder Masci DO Work Phone: [facility] 06-17-2024 13:58-0400 Body weight 57.38 kg Jaswinder Masci DO Work Phone: [facility] 06-17-2024 13:58-0400 Diastolic blood pressure 73 mm[Hg] Jaswinder Masci DO Work Phone: [facility] 06-17-2024 13:58-0400 Heart rate 71 /min Jaswinder Masci DO Work Phone: [facility] 06-17-2024 13:58-0400 SaO2% (BldA) [Mass fraction] 99 % Jaswinder Masci DO Work Phone: [facility] 06-17-2024 13:58-0400 Systolic blood pressure 127 mm[Hg] Jaswinder Masci DO Work Phone: [facility] 04-30-2024 14:34-0400 Blood Pressure Cuff Size CRISTIAN SOTO MD [facility] 04-30-2024 14:34-0400 Blood Pressure Location CRISTIAN SOTO MD [facility] 04-30-2024 14:34-0400 Blood Pressure Method CRISTIAN SOTO MD [facility] 04-30-2024 14:34-0400 Body temperature 98.06 [degF] CRISTIAN SOTO MD [facility] 04-30-2024 14:34-0400 Diastolic Blood Pressure Non-Invasive 70 mm[Hg] CRISTIAN SOTO MD [facility] 04-30-2024 14:34-0400 Heart rate 89 /min CRISTIAN SOTO MD [facility] 04-30-2024 14:34-0400 Reason For Taking VItal Signs CRISTIAN SOTO MD [facility] 04-30-2024 14:34-0400 Systolic Blood Pressure Non-Invasive 180 mm[Hg] CRISTIAN SOTO MD [facility] 04-30-2024 09:49-0400 Body temperature 97.88 [degF] CRISTIAN SOTO MD [facility] 04-30-2024 09:49-0400 Diastolic Blood Pressure Non-Invasive 82 mm[Hg] CRISTIAN SOTO MD [facility] 04-30-2024 09:49-0400 Heart rate 81 /min CRISTIAN SOTO MD [facility] 04-30-2024 09:49-0400 Reason For Taking VItal Signs CRISTIAN SOTO MD [facility] 04-30-2024 09:49-0400 Systolic Blood Pressure Non-Invasive 162 mm[Hg] CRISTIAN SOTO MD [facility] 04-30-2024 09:30-0400 Blood Pressure Cuff Size CRISTIAN SOTO MD [facility] 04-30-2024 09:30-0400 Blood Pressure Location CRISTIAN SOTO MD [address] [place] [address] 04-30-2024 09:30-0400 Blood Pressure Method CRISTIAN SOTO MD [address] [place] [address] 04-30-2024 09:30-0400 Diastolic Blood Pressure Non-Invasive 82 mm[Hg] CRISTIAN SOTO MD [address] [place] [address] 04-30-2024 09:30-0400 Systolic Blood Pressure Non-Invasive 162 mm[Hg] CRISTIAN SOTO MD [address] [place] [address] 04-30-2024 07:41-0400 Blood Pressure Cuff Size CRISTIAN SOTO MD [address] [place] [address] 04-30-2024 07:41-0400 Blood Pressure Location CRISTIAN SOTO MD [address] [place] [address] 04-30-2024 07:41-0400 Blood Pressure Method CRISTIAN SOTO MD [facility] 04-30-2024 06:40-0400 Body temperature 97.88 [degF] CRISTIAN SOTO MD [address] [place] [address] 04-30-2024 06:40-0400 Heart rate 81 /min CRISTIAN SOTO MD [facility] [place] 04-30-2024 06:40-0400 Reason For Taking VItal Signs CRISTIAN SOTO MD [address] [place] [address] 04-29-2024 21:29-0400 Heart rate 72 /min CRISTIAN SOTO MD [address] [place] [address] 04-29-2024 21:29-0400 Respiratory rate 18 /min CRISTIAN SOTO MD [facility] 04-29-2024 14:51-0400 Body temperature 97.16 [degF] CRISTIAN SOTO MD [facility] 04-29-2024 14:51-0400 Respiratory rate 20 /min CRISTIAN SOTO MD [facility] 04-29-2024 07:06-0400 Respiratory rate 18 /min CRISTIAN SOTO MD [address] [place] [address] 04-26-2024 17:22-0400 Heart rate 73 /min CRISTIAN SOTO MD [address] [place] [address] 04-26-2024 11:58-0400 Heart rate 72 /min CRISTIAN SOTO MD [address] [place] [address] 04-26-2024 09:41-0400 Heart rate 70 /min CRISTIAN SOTO MD [address] [place] [address] 04-25-2024 15:23-0400 Body temperature 96.26 [degF] CRISTIAN SOTO MD [address] [place] [address] 04-25-2024 15:23-0400 Signs/Symptoms Transfusion Reaction CRISTIAN SOTO MD [address] [place] [address] 04-25-2024 14:35-0400 Body temperature 95 [degF] CRISTIAN SOTO MD [facility] 04-25-2024 14:35-0400 Diastolic blood pressure 58 mm[Hg] CRISTIAN SOTO MD [address] [place] [address] 04-25-2024 14:35-0400 Systolic blood pressure 116 mm[Hg] CRISTIAN SOTO MD [address] [place] [address] 04-25-2024 14:23-0400 Signs/Symptoms Transfusion Reaction No CRISTIAN SOTO MD [address] [place] [address] 04-25-2024 14:13-0400 Signs/Symptoms Transfusion Reaction CRISTIAN SOTO MD [facility] 04-25-2024 12:13-0400 Body temperature 95.18 [degF] CRISTIAN SOTO MD [facility] 04-24-2024 10:42-0400 Body temperature 97.7 [degF] CRISTIAN SOTO MD [facility] 04-24-2024 04:14-0400 Body height 155 cm CRISTIAN SOTO MD [facility] 04-24-2024 04:14-0400 Body weight 65.6 kg CRISTIAN SOTO MD [facility] 04-24-2024 04:14-0400 Body weight 27.3 kg/m2 CRISTIAN SOTO MD [facility] 04-24-2024 03:00-0400 Diastolic Blood Pressure Non-Invasive 84 mm[Hg] DR KINGSTON VELASCO MD [facility] 04-24-2024 03:00-0400 Respiratory rate 24 /min DR KINGSTON VELASCO MD [facility] 04-24-2024 03:00-0400 Systolic Blood Pressure Non-Invasive 171 mm[Hg] DR KINGSTON VELASCO MD [facility] 04-24-2024 02:55-0400 Respiratory rate 26 /min DR KINGSTON VELASCO MD [facility] 04-24-2024 02:28-0400 Blood Pressure Cuff Size DR KINGSTON VELASCO MD [facility] 04-24-2024 02:28-[address] KINGSTON VELASCO MD [facility] 04-24-2024 02:28-[address] KINGSTON VELASCO MD [facility] 04-24-2024 02:28-0400 Diastolic Blood Pressure Non-Invasive 95 mm[Hg] DR KINGSTON VELASCO MD [facility] 04-24-2024 02:28-0400 Heart rate 89 /min DR KINGSTON VELASCO MD [facility] 04-24-2024 02:28-0400 Respiratory rate 20 /min DR KINGSTON VELASCO MD [facility] 04-24-2024 02:28-0400 Systolic Blood Pressure Non-Invasive 178 mm[Hg] DR KINGSTON VELASCO MD [facility] 04-24-2024 01:11-0400 Blood Pressure Cuff Size DR KINGSTON VELASCO MD [facility] 04-24-2024 01:11-[address] KINGSTON VELASCO MD [facility] 04-24-2024 01:11-[address] KINGSTON VELASCO MD [facility] 04-24-2024 01:11-0400 Diastolic Blood Pressure Non-Invasive 77 mm[Hg] DR KINGSTON VELASCO MD [facility] 04-24-2024 01:11-0400 Heart rate 90 /min DR KINGSTON VELASCO MD [facility] 04-24-2024 01:11-0400 Systolic Blood Pressure Non-Invasive 157 mm[Hg] DR KINGSTON VELASCO MD [facility] 04-23-2024 20:03-0400 Body height [address] KINGSTON VELASCO MD [facility] 04-23-2024 20:03-0400 Body temperature 98.24 [degF] DR KINGSTON VELASCO MD [facility] 04-23-2024 20:03-0400 Body weight [address] KINGSTON VELASCO MD [facility] 04-21-2024 11:19-0400 Body temperature 98.24 [degF] MEGAN MIRAMONTES [employer] [facility] 04-21-2024 11:19-0400 Diastolic Blood Pressure Non-Invasive 88 mm[Hg] MEGAN MIRAMONTES [employer] OPERATOR[employer] [facility] 04-21-2024 11:19-0400 Heart rate 75 /min MEGAN MIRAMONTES [employer] OPERATOR[employer] [facility] 04-21-2024 11:19-0400 Respiratory rate 20 /min MEGAN MIRAMONTES [employer] OPERATOR[employer] [facility] 04-21-2024 11:19-0400 Systolic Blood Pressure Non-Invasive 130 mm[Hg] MEGAN MIRAMONTES [employer] OPERATOR[employer] [facility] 04-21-2024 07:44-0400 Blood Pressure Cuff Size MEGAN MIRAMONTES [employer] OPERATOR[employer] [facility] 04-21-2024 07:44-0400 Blood Pressure Location MEGAN MIRAMONTES [employer] OPERATOR[employer] [facility] 04-21-2024 07:44-0400 Blood Pressure Method MEGAN MIRAMONTES [employer] OPERATOR[employer] [facility] 04-21-2024 07:44-0400 Diastolic Blood Pressure Non-Invasive 78 mm[Hg] MEGAN MIRAMONTES [employer] OPERATOR[employer] [facility] 04-21-2024 07:44-0400 Systolic Blood Pressure Non-Invasive 124 mm[Hg] MEGAN MIRAMONTES [employer] OPERATOR[employer] [facility] 04-21-2024 07:30-0400 Body temperature 98.24 [degF] MEGAN MIRAMONTES [employer] OPERATOR[employer] [facility] 04-21-2024 07:30-0400 Diastolic Blood Pressure Non-Invasive 65 mm[Hg] MEGAN MIRAMONTES [employer] OPERATOR[employer] [facility] 04-21-2024 07:30-0400 Heart rate 78 /min MEGAN MIRAMONTES [employer] OPERATOR[employer] [facility] 04-21-2024 07:30-0400 Respiratory rate 20 /min MEGAN MIRAMONTES [employer] OPERATOR[employer] [facility] 04-21-2024 07:30-0400 Systolic Blood Pressure Non-Invasive 99 mm[Hg] MEGAN MIRAMONTES [employer] OPERATOR[employer] [facility] 04-21-2024 03:30-0400 Body temperature 97.7 [degF] MEGAN MIRAMONTES [employer] OPERATOR[employer] [facility] 04-21-2024 03:30-0400 Heart rate 76 /min MEGAN MIRAMONTES [employer] OPERATOR[employer] [facility] 04-21-2024 03:30-0400 Reason For Taking VItal Signs MEGAN MIRAMONTES [employer] OPERATOR[employer] [facility] 04-21-2024 03:30-0400 Respiratory rate 20 /min MEGAN MIRAMONTES [employer] OPERATOR[employer] [facility] 04-20-2024 23:13-0400 Heart rate 69 /min MEGAN MIRAMONTES [employer] OPERATOR[employer] [facility] 04-20-2024 23:13-0400 Reason For Taking VItal Signs MEGAN MIRAMONTES [employer] OPERATOR[employer] [facility] 04-20-2024 19:32-0400 Blood Pressure Cuff Size MEGAN MIRAMONTES [employer] OPERATOR[employer] [facility] 04-20-2024 19:32-0400 Blood Pressure Location MEGAN MIRAMONTES [employer] OPERATOR[employer] [facility] 04-20-2024 19:32-0400 Blood Pressure Method MEGAN MIRAMONTES [employer] OPERATOR[employer] [facility] 04-20-2024 19:24-0400 Reason For Taking VItal Signs MEGAN MIRAMONTES C[employer] OPERATOR[employer] [facility] 04-20-2024 03:34-0400 Heart rate 85 /min MEGAN MIRAMONTES [employer] OPERATOR[employer] [facility] 04-20-2024 00:46-0400 Body height 155 cm MEGAN MIRAMONTES [employer] OPERATOR[employer] [facility] 04-20-2024 00:46-0400 Body weight 61.9 kg MEGAN MIRAMONTES [employer] OPERATOR[employer] [facility] 04-20-2024 00:46-0400 Body weight 25.76 kg/m2 MEGAN MIRAMONTES C[employer] OPERATOR[employer] [facility] 04-20-2024 00:34-0400 Heart rate 86 /min MEGAN MIRAMONTES [employer] OPERATOR[employer] [facility] 04-19-2024 23:40-0400 Heart rate 91 /min MEGAN MIRAMONTES C[employer] OPERATOR[employer] [facility] 04-19-2024 22:20-0400 Heart rate 83 /min MEGAN MIRAMONTES C[employer] OPERATOR[employer] [facility] 06-25-2024 16:43-0400 Body height [address] TAE ALANIS MD [facility] 04-14-2024 16:43-0400 Body temperature 96.8 [degF] DR TAE ALANIS MD [facility] 04-14-2024 16:43-0400 Body weight [address] TAE ALANIS MD [facility] 04-14-2024 16:43-0400 Diastolic Blood Pressure Non-Invasive 66 mm[Hg] DR TAE ALANIS MD [facility] 04-14-2024 16:43-0400 Heart rate 75 /min DR TAE ALANIS MD [facility] 04-14-2024 16:43-0400 Respiratory rate 18 /min DR TAE ALANIS MD [facility] 04-14-2024 16:43-0400 Systolic Blood Pressure Non-Invasive 106 mm[Hg] DR TAE ALANIS MD [facility] 03-03-2024 16:40-0400 Body height 162.6 cm ZULY MASTERSROSENDA DO [facility] 03-03-2024 16:40-0400 Body temperature 97.16 [degF] ZULY FROMRUTH ANNT DO [facility] [facility] 03-03-2024 16:40-0400 Body weight 62 kg ZULY FROMRUTH ANNT DO [facility] 03-03-2024 16:40-0400 Diastolic Blood Pressure Non-Invasive 74 mm[Hg] ZULY FROMMELT DO [facility] 03-03-2024 16:40-0400 Heart rate 111 /min ZULY CASH DO [facility] 03-03-2024 16:40-0400 Respiratory rate 20 /[facility] 03-03-2024 16:40-0400 Systolic Blood Pressure Non-Invasive 120 mm[Hg] [facility] 05-29-2022 08:38-0400 Diastolic blood pressure 74 mm[Hg] DR APRIL PABON MD [facility] 05-29-2022 08:38-0400 Heart rate 60 /min DR APRIL PABON MD [facility] 05-29-2022 08:38-0400 Mean blood pressure 90 mm[Hg] DR APRIL PABON MD [facility] 05-29-2022 08:38-0400 Respiratory rate 16 /min DR APRIL PABON MD [facility] 05-29-2022 08:38-0400 Systolic blood pressure 122 mm[Hg] DR APRIL PABON MD [facility] Encounters Encounter Date Encounter Type Care Provider Facility Start: 08-06-2024 ambulatory LUIS ELLIOTT CABLEWAY OPERATOR-DRUM SANDER Fa cility:[facility] Start: 08-04-2024 End: 08-05-[address] MAGED PEDRO MD Facility:[facility] Start: 08-04-2024 End: 08-05-[address] MAGED PEDRO MD [facility] Start: 07-14-2024 End: 07-14-[address] MAGED PEDRO MD [facility] Start: 07-14-2024 End: 07-14-[address] MAGED PEDRO MD Facility:[facility] Start: 06-25-2024 End: 08-04-2024 Telephone encounter Jaswinder Schmidt DO Work Phone: Hematology/Oncology Comment on above: Follow Up Start: 06-17-2024 End: 06-17-2024 ambulatory Jaswinder Schmidt DO Work Phone: Hematology/Oncology Comment on above: Single subsegmental pulmonary embolism without acute cor pulmonale (HCC) (Primary Dx) Start: 06-17-2024 End: 06-17-2024 Patient encounter procedure Jaswinder Schmidt DO Work Phone: Hematology/Oncology Start: 06-02-2024 End: 06-02-2024 ambulatory VELMA REYNOLDS CABLEWAY OPERATOR-DRUM SANDER Facility:B Start: 05-16-2024 End: 05-20-2024 ambulatory LUIS ELLIOTT CABLEWAY OPERATOR-DRUM SANDER Facility:[facility] Start: 05-16-2024 End: 05-20-[address] TATIANA CASEY DO [facility] Start: 05-01-2024 End: 06-02-2024 ambulatory LUIS ELLIOTT CABLEWAY OPERATOR-DRUM SANDER Facility:R Start: 04-24-2024 End: 04-30-2024 Evaluation and management of inpatient CRISTIAN SOTO MD [facility] Start: 04-23-2024 End: 04-24-2024 Emergency department patient visit DR KINGSTON VELASCO MD [facility] Start: 04-19-2024 End: 04-21-2024 Evaluation and management of inpatient MEGAN MIRAMONTES CABLEWAY OPERATOR-DRUM SANDER [facility] Start: 04-16-2024 End: 04-16-2024 ambulatory LUIS ELLIOTT CABLEWAY OPERATOR-DRUM SANDER Facility:[facility] Start: 04-14-2024 End: 04-14-2024 Emergency department patient visit DR TAE ALANIS MD [facility] Start: 03-03-2024 End: 03-03-2024 Emergency department patient visit ZULY CASH DO [facility] Start: 02-21-2024 End: 02-21-2024 ambulatory LUIS BALTES CABLEWAY OPERATOR-DRUM SANDER Facility:B Start: 02-21-2024 End: 02-21-2024 Patient encounter procedure LUIS BALTES CABLEWAY OPERATOR-DRUM SANDER [facility] Start: 02-17-2024 End: 02-17-2024 ambulatory LUIS BALTES CABLEWAY OPERATOR-DRUM SANDER Facility:B Start: 02-17-2024 End: 02-17-2024 Patient encounter procedure LUIS BALTES CABLEWAY OPERATOR-DRUM SANDER [facility] Start: 08-29-2023 End: 08-29-2023 ambulatory LUIS BALTES CABLEWAY OPERATOR-DRUM SANDER Facility:B Start: 08-01-2023 End: 08-01-2023 ambulatory LUIS BALTES CABLEWAY OPERATOR-DRUM SANDER Facility:B Start: 08-01-2023 End: 08-01-2023 Patient encounter procedure LUIS BALTES CABLEWAY OPERATOR-DRUM SANDER [facility] Start: 2023 End: 2023 ambulatory LUIS BALTES CABLEWAY OPERATOR-DRUM SANDER Facility:B Start: 2023 End: 2023 Patient encounter procedure LUIS BALTES CABLEWAY OPERATOR-DRUM SANDER [facility] Start: 05-29-2023 End: 06-02-2023 Outreach Lab LUIS BALTES CABLEWAY OPERATOR-DRUM SANDER [facility] Start: 09-10-2022 End: 09-10-2022 Patient encounter procedure LUIS BALTES CABLEWAY OPERATOR-DRUM SANDER [facility] Start: 08-14-2022 End: 08-14-2022 Patient encounter procedure VELMA REYNOLDS CABLEWAY OPERATOR-DRUM SANDER [facility] Start: 05-29-2022 End: 05-29-[address] APRIL PABON MD [facility] Start: 05-24-2022 End: 05-24-2022 Patient encounter procedure LUIS TORRESFAITH CABLEWAY OPERATOR-DRUM SANDER [facility] Start: 05-02-2022 End: 05-02-2022 Patient encounter procedure LUIS TORRESFAITH CABLEWAY OPERATOR-DRUM SANDER [facility] Start: 05-01-2022 End: 05-01-2022 Patient encounter procedure LUIS EARL CABLEWAY OPERATOR-DRUM SANDER [facility] Start: 01-31-2022 End: 02-04-2022 Outreach Lab LUIS ELLIOTT CABLEWAY OPERATOR-DRUM SANDER [facility] Start: 01-31-2022 End: 01-31-2022 Patient encounter procedure LUIS TORRESFAITH CABLEWAY OPERATOR-DRUM SANDER [facility] Procedures Date Procedure Procedure Detail Performing Clinician Start: 08-04-2024 Total replacement of left hip joint DR MAGED PEDRO MD Start: 03-11-2023 Cardiac catheterization LUIS ELLIOTT CABLEWAY OPERATOR-DRUM SANDER Start: 03-11-2023 Placement of stent LUIS ELLIOTT CABLEWAY OPERATOR-DRUM SANDER Start: 01-04-2020 Endarterectomy LUIS CUEVAS CABLEWAY OPERATOR-DRUM SANDER Start: 02-06-2017 Nerve conduction study LUIS ELLIOTT CABLEWAY OPERATORMoney360 Comment on above: [facility];abn Start: 12-12-2016 CT angiography of ne ck vessels LUIS ELLIOTT CABLEWAY OPERATOR-Robert Applebaum MD Comment on above: [facility] Start: 11-14-2016 Duplex ultrasound (qualifier value) LUIS ELLIOTT CABLEWAY OPERATORMoney360 Comment on above: abn Start: 10-21-2007 Lithotripsy LUIS Patterson CABLEWAY OPERATORMoney360 Start: 09-06-2000 Lipid 1996 panel - S rach or Plasma Jaswinder Schmidt DO Work Phone: Abdominal hysterectomy LUIS ELLIOTT CABLEWAY OPERATORMoney360 Carotid artery struc ture (body structure) LUIS ELLIOTT CABLEWAY OPERATORMoney360 Comment on above: left side x2 section LUIS ELLIOTT CABLEWAY OPERATORMoney360 Cholecystectomy LUIS ELLIOTT CABLEWAY OPERATORMoney360 Colonoscopy LUIS ELLIOTT APR NMoney360 Coronary artery bypa ss graft CABG - Coronary artery bypass graft( Confirmed ) 1 LUIS ELLIOTT CABLEWAY OPERATORMoney360 Comment on above: prior to CABG, pt st awads she had multiple stents placed for CAD. Remains on plavix for stent/[place] patency Coronary artery bypa ss graft x 1 LUIS ELLIOTT CABLEWAY OPERATORMoney360 Coronary stent site (finding) LUIS ELLIOTT CABLEWAY OPERATORMoney360 History of carotid endarterectomy History of carotid endarterectomy( Confirmed ) LUIS ELLIOTT CABLEWAY OPERATORMoney360 History of coronary artery bypass grafting Hx of CABG( Confirmed ) LUIS ELLIOTT CABLEWAY OPERATORMoney360 History of percutane ous transluminal coronary angioplasty History of PTCA( Confirmed ) LUIS ELLIOTT CABLEWAY OPERATORMoney360 History of percutane ous transluminal coronary angioplasty CRISTIAN SOTO MD [facility] Plan of Treatment Date Care Activity Detail Author Start: 03-03-2034 Urine microalbumin profile DTaP,Tdap,Td Vaccine (2 - Td or Tdap) [facility] Start: 2028 RSV Vaccine (1 - 1-d ose 75+ series) RSV Vaccine (1 - 1-dose 75+ series) [facility] Start: 06-17-2025 BP Controlled (<130/80) BP Controlle d (<130/80) [facility] Start: 12-18-2024 End: 12-18-2024 ambulatory 12/18/2024 2:30 PM EST Visit (SP) Office Hematology/Oncology [address] [place] [address] Jaswinder Schmidt DO [address] [place] [address] 6 MO OV* Hematology/Oncology Comment on above: 6 MO OV* Start: 06-21-2024 Covid-19 Vaccine ( season) Covid-19 Vaccine ( season) [facility] Start: 06-21-2024 Influenza vaccination Influenza Vacc ine (#1) [facility] Start: 06-17-2024 End: 09-16-[address] [facility] Work Phone: Comment on above: Expected: 06/17/2024 , Expires: 09/16/2024 Start: 10-21-2023 Advance Directive Discussion Advance Directive Discussion [facility] Start: 06-21-2023 Covid-19 Vaccine ( season) Covid-19 Vaccine ( season) [facility] Start: 2023 Pneumococcal Vaccine : 65+ (3 of 3 - PPSV23 or PCV20) Pneumococcal Vaccine: 65+ (3 of 3 - PPSV23 or PCV20) [facility] Start: 01-04-2023 Diabetes Screening Diabetes Screenin g [facility] Start: 2018 Screening for osteoporosis Bone Density Screening [facility] Start: 06-09-2016 Shingrix Vaccine (2 of 3) Shingrix Vaccine (2 of 3) [facility] Start: 2013 RSV Vaccine (1 - 1-d ose 60+ series) RSV Vaccine (1 - 1-dose 60+ series) [facility] Start: 09-06-2005 Lipid panel Lipid Screening [facility] Start: 2003 Screening for malign ant neoplasm of lung Lung Cancer Screening [facility] Start: 09-06-2001 Hepatitis B surface antibody level LDL Cholesterol [facility] Start: 1998 Screening for malign ant neoplasm of colon [facility] Start: 1993 Screening for malign ant neoplasm of breast Mammogram Screening [facility] Start: 1971 Annual PCP Team Wall Cleaner lili Disease Visit Annual PCP Team Chronic Disease Visit [facility] Start: 1971 Anxiety Screening Anxiety Screening [facility] Start: 1971 Depression Screening Depression Scre ening [facility] Start: 1971 Hepatitis C screening Hepatitis C Sc kelton [facility] Immunizations Immunization Date Immunization Notes Care Provider Fa roshan 07-15-2024 influenza virus vacc ine, unspecified formulation DR MAGED PEDRO MD [facility] 03-03-2024 tetanus toxoid, redu vani diphtheria toxoid, and acellular pertussis vaccine, adsorbed ZULY FROMROSENDA DO [facility] 07-07-2023 influenza virus vacc ine, unspecified formulation LUIS ELLIOTT CABLEWAY OPERATOR-DRUM SANDER [facility] 07-10-2022 influenza virus vacc ine, unspecified formulation VELMA REYNOLDS CABLEWAY OPERATOR-DRUM SANDER [facility] 07-31-2021 SARS-CoV-2 mRNA (tozinameran) vaccine LUIS ELLIOTT CABLEWAY OPERATOR-DRUM SANDER [facility] 11-22-2020 SARS-CoV-2 mRNA (tozinameran) vaccine LUIS ELLIOTT CABLEWAY OPERATOR-DRUM SANDER [facility] 11-01-2020 SARS-CoV-2 mRNA (topravinnameran) vaccine LUIS ELLIOTT CABLEWAY OPERATOR-DRUM SANDER [facility] 07-08-2020 influenza virus vacc ine, unspecified formulation LUIS ELLIOTT CABLEWAY OPERATOR-DRUM SANDER [facility] 06-15-2019 influenza virus vacc ine, unspecified formulation LUIS BALFAITH CABLEWAY OPERATOR-DRUM SANDER [facility] 2018 influenza virus vacc ine, unspecified formulation LUIS ELLIOTT CABLEWAY OPERATOR-DRUM SANDER [facility] 2018 pneumococcal conjuga te vaccine, 13 valent LUIS ELLIOTT CABLEWAY OPERATOR-DRUM SANDER [facility] 06-28-2017 influenza virus vacc ine, unspecified formulation LUIS ELLIOTT CABLEWAY OPERATOR-DRUM SANDER [facility] 08-10-2016 influenza virus vacc ine, unspecified formulation LUIS ELLIOTT CABLEWAY OPERATOR-DRUM SANDER [facility] 04-14-2016 zoster vaccine, live LUIS BA LTES CABLEWAY OPERATOR-DRUM SANDER [facility] 10-21-2014 zoster vaccine, live LUIS BA LTES CABLEWAY OPERATOR-DRUM SANDER [facility] 09-19-2014 zoster vaccine, live LUIS BA LTES CABLEWAY OPERATOR-DRUM SANDER [facility] 10-21-2012 pneumococcal conjuga te vaccine, 13 valent LUIS ELLIOTT CABLEWAY OPERATOR-DRUM SANDER [facility] 10-21-2012 pneumococcal polysaccharide vaccine, 23 valent LUIS ELLIOTT CABLEWAY OPERATOR-DRUM SANDER [facility] 09-19-2012 pneumococcal polysaccharide vaccine, 23 valent LUIS ELLIOTT CABLEWAY OPERATOR-DRUM SANDER [facility] Payers Date Payer Category Payer Medicare [id number] 2019 Medicare UHC AARP MEDICAR E [facility] MEDICARE PPO [id number] 2019-Present [phone] [address] [address] [place] [address] PPO [id number] 2019 Private Health Insurance [id number] 1955 Unknown [id number] 1955 Unknown [id number] .[id number] Unknown [id number] 1953 Unknown [id number] .62 1953 Unknown [id number] .627 1953 Unknown [id number] [id number] .62 1953 Unknown [id number] .627 1953 Unknown [id number] .627 1953 Unknown [id number] [id number] .627 1953 Unknown [id number] [id number] .627 1953 Unknown [id number] .1955 Unknown [id number] [id number] .7 1953 Unknown [id number] .1955 Unknown [id number] [id number] .7 1955 Unknown [id number] Social History Date Type Detail Facility Start: 07-17-2019 End: 12-06-2022 Tobacco smoking status Ex-smoker (finding) [facility] Comment on above: Quit in 2011 Sex Assigned At Female [facility] Start: 10-21-1980 End: 10-21-2010 History of tobacco use Current smoker [facility] Start: 10-21-1980 End: 10-21-2010 History of tobacco use Cigarette Smoker [facility] Start: 12-04-2019 End: 06-17-2024 Cigarettes smoked current (pack per day) - Reported 1 [facility] Work Phone: Start: 12-04-2019 Tobacco use and exposure Smokeless tobacco non-user [facility] Start: 06-17-2024 Alcoholic beverage intake Current non-drinker of alcohol (finding) [facility] Start: 01-05-2020 End: 06-17-2024 Tobacco use panel [facility] Work Phone: How hard is it for y ou to pay for the very basics like food, housing, medical care, and heating Not hard at all [facility] Work Phone: (I/We) worried wheth er (my/our) food would run out before (I/we) got money to buy more. Never true [facility] Start: 1955 Sex assigned at Not on file [facility] Medical Equipment Procedure Code Equipment Code Equipment Origin al Text Equipment Identifier Dates Graft 4-7mm Standard Rn [facility] 40cm Vascular Line Sterile - [id number] Start: 01-04-2020 Patch Bovine Pericardial Vascular Duravess 8x8 - [id number] Start: 01-04-2020 Comment on above: Description: bovine pericardial patch Functional Status Date Assessment Result Facility 08-05-2024 Functional Status Nurse Smiley medrano q2hrs Performed Other: 7a-12p [facility] 08-05-2024 Functional Status Independent [facility] 08-05-2024 Functional Status Identified as high risk, Fall ID band on, Room located near nursing station, Door open, Non-Slip footwear [facility] 08-05-2024 Functional Status [facility] 08-05-2024 Functional Status [facility] 08-05-2024 Functional Status [facility] 08-04-2024 Functional Status [facility] 08-04-2024 Functional Status [facility] 08-04-2024 Functional Status Single level home [facility] 08-04-2024 Functional Status [facility] 08-04-2024 Functional Status Maintained [facility] 07-14-2024 Functional Status Sensory Deficits None A [facility] 04-30-2024 Functional Status Room check performed [facility] 04-30-2024 Functional Status Lunch Percent 25 [facility] 04-30-2024 Functional Status [facility] 04-30-2024 Functional Status 25 [facility] 04-30-2024 Functional Status [facility] 04-30-2024 Functional Status [facility] 04-30-2024 Functional Status [facility] 04-30-2024 Functional Status Done [facility] 04-29-2024 Functional Status 25 [facility] 04-29-2024 Functional Status [facility] 04-29-2024 Functional Status [facility] 04-28-2024 Functional Status [facility] 04-28-2024 Functional Status Supervision [facility] 04-28-2024 Functional Status [facility] 04-27-2024 Functional Status [facility] 04-27-2024 Functional Status [facility] 04-27-2024 Functional Status [facility] 04-27-2024 Functional Status Hospital bed [facility] 04-26-2024 Functional Status [facility] 04-25-2024 Functional Status Assistive Equi pment elevated on pillows [facility] 04-24-2024 Functional Status Independent [facility] 04-24-2024 Functional Status Single level home [facility] 04-24-2024 Functional Status Sensory Deficits None A [facility] 04-23-2024 Functional Status Awake, Lights dimmed, Resting [facility] 04-21-2024 Functional Status Nurse Smiley medrano q2hrs Performed Other: 7AM - 1PM [facility] 04-21-2024 Functional Status bilateral knee high removed/off [facility] 04-21-2024 Functional Status Identified as high risk, Bed alert on, Non-Slip footwear, Room check performed [facility] 04-21-2024 Functional Status Shahla [facility] 04-21-2024 Functional Status Shahla [facility] 04-20-2024 Functional Status Shahla [facility] 04-20-2024 Functional Status Shahla arellano [facility] 04-20-2024 Functional Status 25 Shahla arellano [facility] 04-20-2024 Functional Status Single level home [facility] 04-20-2024 Functional Status Shahla arellano [facility] 04-20-2024 Functional Status Shahla arellano [facility] 04-20-2024 Functional Status Shahla arellano [facility] 04-20-2024 Functional Status Sensory Deficits None [facility] 03-03-2024 Functional Status Independent Shahla arellano [facility] 05-29-2022 Functional Status Independent Shahla arellano Mental Status Date Assessment Result Facility 08-05-2024 [facility] 08-04-2024 Mental Status [facility] 08-04-2024 Mental Status [facility] 04-30-2024 Mental Status Orientation Oriented x 4 [facility] 04-29-2024 Mental Status [facility] 04-29-2024 Mental Status [facility] 04-28-2024 Mental Status Orientation Asse ssment Oriented x 4 [facility] 04-28-2024 Mental Status [facility] 04-27-2024 Mental Status [facility] 04-23-2024 Mental Status Orientation Oriented x 4 [facility] 04-21-2024 Mental Status Oriented x 4 [facility] 04-20-2024 Mental Status [facility] 04-20-2024 [facility] Status [facility] 03-03-2024 Mental Status Orientation Orie nted x 4, Not oriented to person, Not oriented to place [facility] Clinical Notes 05-29-2022 to 08-05-2024 Telephone Encounter - Jaswinder Schmidt DO - 08/03/2024 5:13 PM EDTTelephone Encounter - Jaswinder Schmidt, - 08/03/2024 5:13 PM EDTTelephone Encounter - Kailee Chavezela JESSICA Patterson - 08/03/2024 4:42 PM EDT Note Date & Type Note Facility 08-05-2024 Hospital Discharge instructions Patient Education 08/05/2024 10:18:25 Total Hip Replacement, Anterior, Care After, Xheq-yh-Caop Total Hip Replacement, Anterior, Care After This sheet gives you information about how to care for yourself after your procedure. Your doctor may also give you more specific instructions. If you have problems or questions, contact your doctor. What can I expect after the procedure? After the procedure, it is common to have: Pain. Stiffness. Discomfort. Follow these instructions at home: Medicines Take zdia-cle-qcyncyp and prescription medicines only as told by your doctor. If you were prescribed a medicine to thin your blood (anticoagulant), take it as told by your doctor. Surgery cut care Follow instructions from your doctor about how to take care of your cut (incision) from surgery. Make sure you: ?Wash your hands with soap and water before you change your bandage (dressing). If you cannot use soap and water, use alcohol-based hand care process manager. ?Change your bandage as told by your doctor. ?Leave stitches (sutures), skin glue, or skin tape (adhesive) strips in place. They may need to stay in place for 2 weeks or longer. If tape strips get loose and curl up, you may trim the loose edges. Do not remove tape strips completely unless your doctor tells you to do that. Check your surgical cut every day for signs of infection. Check for: ?Redness, swelling, or pain. ?Fluid or blood. ?Warmth. ?Pus or a bad smell. Bathing Do not take baths, swim, or use a hot tub until your doctor says it is okay. Keep the bandage dry until your doctor says it can be removed. Managing pain, stiffness, and swelling If directed, put ice on the hip area. ?Put ice in a plastic bag. ?Place a towel between your skin and the bag. ?Leave the ice on for 20 minutes, 2 3 times a day. Move your toes often to avoid stiffness and to lessen swelling. Raise (elevate) your leg above the level of your heart while you are sitting or lying down. Activity Rest as told by your doctor. Do not sit for a long time without moving. Get up to take short walks every 1 2 hours. This is important. Ask for help if you feel weak or unsteady. Do exercises as told by your doctor or physical therapist. Use a walker, crutches, or a cane as told by your doctor. ?You may use your legs to support (bear) your body weight as told by your doctor. Follow instructions about how much weight you may safely support on your affected leg (weight-bearing restrictions). ?A physical therapist may show you how to get out of a bed and chair and how to go up and down stairs. You will first do this with a walker, crutches, or a cane. Then you will do it without any of these devices. ?Once you are able to walk without a limp, you may stop using a walker, crutches, or cane. Return to your normal activities as told by your doctor. Ask your doctor what activities are safe for you. Safety To help prevent falls: ?Keep floors clear of objects you may trip over. ?Place items that you may need within easy reach. Wear an apron or tool belt with pockets for carrying objects. This leaves your hands free to help with your balance. Driving Do not drive or use heavy machinery while taking prescription pain medicine. Ask your doctor when it is safe to drive. General instructions Wear compression stockings as told by your doctor. These help to prevent blood clots and reduce swelling in your legs. Keep doing breathing exercises as told by your doctor. This helps prevent lung infection. If you are taking prescription pain medicine, take actions to prevent or treat constipation. Your doctor may suggest that you: ?Drink enough fluid to keep your pee (urine) pale yellow. ?Eat foods that are high in fiber. These include fresh fruits and vegetables, whole grains, and beans. ?Limit foods that are high in fat and sugar. These include fried or sweet foods. ?Take an bpnn-ufq-phamtnm or prescription medicine for constipation. Do not use any products that have nicotine or tobacco in them, such as cigarettes and e-cigarettes. These can delay bone healing. If you need help quitting, ask your doctor. Tell your doctor if you plan to have dental work. Also: ?Tell your dentist about your joint replacement. ?Ask your doctor if there are instructions you need to follow before dental care and routine cleanings. Keep all follow-up visits as told by your doctor. This is important. Contact a doctor if: You have a fever or chills. You have a cough. You feel short of breath. Your medicine is not helping your pain. You have any of these at or near your cut from surgery: ?Redness, swelling, or pain. ?Fluid or blood. ?An area that feels warm when you touch it. ?Pus or a bad smell. Get help right away if: You have very bad pain. You have trouble breathing. You have chest pain. You have redness, swelling, pain, and warmth in your calf or leg. Summary Follow instructions from your doctor about how to take care of your surgery cut (incision). Do not take baths, swim, or use a hot tub until your doctor says it is okay. Use crutches, a walker, or a cane as told by your doctor. If you were prescribed a medicine to thin your blood (anticoagulant), take it as told by your doctor. This information is not intended to replace advice given to you by your health care provider. Make sure you discuss any questions you have with your health care provider. Document Released: 01/21/2019 Document Revised: 02/15/2020 Document Reviewed: 01/21/2019 [employer] Patient Education 2020 [employer] 08/05/2024 09:34:27 5 - [facility] Post-op Instruction 05/2017 ([id number]) [facility] Post-operative Instructions PLEASE FOLLOW [facility] POST-OP INSTRUCTIONS GIVEN WATCH FOR SIGNS OF INFECTION: call the office ([phone]) if experencing any of the following: (Usually appears 36-48 hours after surgery) Increased temperature (101 degrees Fahrenheit or higher) Redness or swelling Increased uncontrolled pain Foul odor or drainage Calf discomfort Significant swelling Or if having any chest pain, shortness of breath, or difficulty breathing or swallowing call the office or go the nearest Emergency Room. If you have any questions, please call your doctor at the number listed on your follow up instructions. Form: 338A ([id number]) R: 02/24 Follow Up Care 07/06/2024 09:57:10 With:LUIS ELLIOTT Address: [address] [place] [phone] When:08/14/2024 12:30:00 Comments:This is your post-op appointment with PCP to go over labwork results. Please have your labs drawn a few days prior to this appointment. With:TUSHAR SHIELDS PA-C, Orthopedic Address: [address] [place] [address] [address] [facility], [place] [phone] When:08/18/2024 14:00:00 Comments:This is your post-op appointment. Follow-up as scheduled. [facility] 08-05-2024 Note Discharge Instructions Thank you for allowing [facility] to assist you with your healthcare needs. The following is important discharge information regarding your hospital visit. Your Care Team Maged Pedro MD Your Diagnosis Anemia B12 deficiency anemia CAD - Coronary artery disease Chronic kidney disease CKD (chronic kidney disease), stage III Depression History of pulmonary embolism HYPERTENSION, ESSENTIAL Insomnia Insomnia Osteoarthritis S/P total left hip arthroplasty What to do next Instructions From Your Doctor Stable for me Scheduled Follow-Up Appointments 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 When With Where Contact Information StatusPC OV Hospital Follow-Up 08/14/2024 12:30 PM EDT LUIS ELLIOTT [address] [phone] Confirmed PC OV 08/26/2024 02:00 PM EST LUIS ELLIOTT [address] [phone] Confirmed Follow Up Appointments Follow Up with LUIS ELLIOTT When:08/14/2024 12:30 PM EDT Where:[address] [place] [phone] Additional Information: This is your post-op appointment with PCP to go over labwork results. Please have your labs drawn a few days prior to this appointment. Follow Up with TUSHAR SHIELDS PA-C, Orthopedic When:08/18/2024 02:00 PM EDT Where:[address] [facility] [address] [facility], [place] [phone] Additional Information: This is your post-op appointment. Follow-up as scheduled. The Following Activity and Diet Have Been Ordered for You No qualifying data available. No qualifying data available. The Following Treatments Have Been Ordered for You Discharge Labs Discharge Outpatient Labwork - Ordered -- CBC and BMP, Anemia and chronic kidney disease, follow-up within: 1-2 weeks, Results Notify to: LUIS ELLIOTT, 08/05/24 9:33:00 EDT Discharge Radiology No qualifying data available. Other Therapies No qualifying data available. Post Acute Orders No qualifying data available. Allergies codeine nausea lisinopril Cough Medications Please ask your primary doctor or pharmacist before taking any other medication not listed, including over the counter drugs, herbal medications, vitamins and or supplements as they may interact with your home medications. What How Much When Why Instructions Last Dose New doxycycline (doxycycline hyclate 100 mg oral capsule) 1 cap by mouth Every 12 hours Duration: 14 Days Pickup at [facility] #[id number] New oxyCODONE (oxyCODONE 5 mg oral tablet ( IMMEDIATE release )) See instructions S/P total left hip arthroplasty 1-2 tab(s) Oral q4h, As needed for as needed for pain Pickup at [facility] #[id number] Changed acetaminophen (Tylenol) 1,000 Milligram by mouth Three (3) times a day not to exceed 3000 mg/ day Unchanged apixaban (Eliquis 5 mg oral tablet) 1 tab(s) by mouth Two (2) times a day Unchanged atorvastatin (atorvastatin 40 mg oral tablet) 1 tab(s) by mouth Daily at bedtime Unchanged calcium carbonate (calcium (as carbonate) 600 mg oral tablet) 2 tab(s) by mouth Once a day as needed for for control of stomach acid Unchanged carvedilol (carvedilol 12.5 mg oral tablet) 1 tab(s) by mouth Twice daily with meals Unchanged cholecalciferol (Vitamin D3 125 mcg (5000 intl units) oral capsule) 1 cap by mouth Once a day Unchanged clopidogrel (clopidogrel 75 mg oral tablet) 1 tab(s) by mouth Once a day Unchanged cyanocobalamin (Vitamin B12 500 mcg oral tablet) 2 tab(s) by mouth Once a day B12 deficiency anemia Duration: 90 Days Unchanged docusate (Dulcolax Stool Softener) 100 Milligram by mouth Two (2) times a day as needed for constipation Unchanged DULoxetine (DULoxetine 60 mg oral delayed release capsule) 1 cap by mouth Once a day Depression Unchanged eszopiclone (eszopiclone 3 mg oral tablet) 1 tab(s) by mouth Daily at bedtime Insomnia Duration: 90 Days OARRS reviewed 05/21, february fill 05/25 Unchanged ferrous sulfate (ferrous sulfate 325 mg (65 mg elemental iron) oral delayed release tablet) 1 tab(s) by mouth Once a day this could be BID Unchanged fluticasone nasal (fluticasone 50 mcg/ inh NASAL spray) 2 spray(s) each nostril Once a day Acute rhinosinusitis Bilateral serous otitis media Duration: 30 Days shake well before using Unchanged folic acid (folic acid 1 mg oral tablet) 1 tab(s) by mouth Once a day Unchanged ondansetron (ondansetron 4 mg oral tablet, disintegrating) 1 tab(s) by mouth Every 6 hours as needed for as needed for nausea/vomiting Nausea with vomiting Duration: 3 Days Unchanged pantoprazole (pantoprazole 40 mg oral enteric coated tablet) 1 tab(s) by mouth Once a day Unchanged polyethylene glycol 3350 (MiraLax oral powder for reconstitution) 17 gram(s) by mouth Once a day Unchanged traZODone (traZODone 50 mg oral tablet) 1 tab(s) by mouth Daily at bedtime Insomnia Duration: 90 Days Unchanged verapamil (verapamil 120 mg/ 12 hours oral tablet, extended release) 1 tab(s) by mouth Once a day Pharmacy Information [id number]: [address] [place], [place] [phone] What How Much When Comments Stop Taking traMADol (traMADol 50 mg oral tablet) 1 tab(s) by mouth Every 12 hours as needed for for pain Please take this list to your next doctor s visit. Bring all medications you take, including over the counter medications, herbals and other supplements with you to your doctor s visit. Patients and families are reminded to discard old lists and to update any records with all medication providers or retail pharmacies. Medication Leaflets oxycodone (ox i KOE done) Oxaydo, OxyCONTIN, Roxicodone, RoxyBond, Xtampza ER What is the most important information I should know about oxycodone? MISUSE OF OPIOID MEDICINE CAN CAUSE ADDICTION, OVERDOSE, OR . Fatal side effects may occur if you also drink alcohol or use other drugs that cause drowsiness or slow breathing. Using opioid medicine during may cause life-threatening withdrawal symptoms in the . What is oxycodone? Oxycodone is an opioid pain medication used to treat moderate to severe pain. Oxycodone is usually given after other treatments did not work or were not tolerated. Extended-release oxycodone is for damcth-phv-qdviy treatment of severe and chronic pain that requires longer treatment. This medicine is not for use on an as-needed basis. Oxycodone may also be used for purposes not listed in this medication guide. What should I discuss with my healthcare provider before taking oxycodone? You should not use oxycodone if you are allergic to it, or if you have severe asthma, breathing problems or a stomach or bowel obstruction (including paralytic ileus). Tell your doctor if you have ever had: other breathing problems, sleep apnea (breathing that stops during sleep); a head injury, brain tumor, high pressure inside the skull, or seizures, drug or alcohol addiction, or mental illness; if you have used an MAO inhibitor in the past 14 days, such as isocarboxazid, linezolid, methylene blue injection, phenelzine, or tranylcypromine; urination problems, problems with your gallbladder, pancreas, thyroid, or adrenal gland; or liver or kidney disease. Most forms of oxycodone are not approved for use in people under 18 years old. The extended-release tablets should not be given to a child younger than 11 years old. Tell your doctor if you also use stimulant medicine, opioid medicine, herbal products, or medicine for depression, mental illness, Parkinson's disease, migraine headaches, serious infections, or prevention of nausea and vomiting. An interaction with oxycodone could cause a serious condition called serotonin syndrome. May harm an unborn baby. Tell your doctor if you are or plan to become . If you use oxycodone during , your baby could be born with life-threatening withdrawal symptoms, and may need medical treatment for several weeks. Do not breastfeed. Oxycodone in breast milk can cause life-threatening side effects in a nursing baby. Long-term oxycodone may affect fertility in men or women. could be harder to achieve while either parent is using this medicine. How should I take oxycodone? Follow the directions on your prescription label and read all medication guides or instruction sheets. Never use oxycodone in larger amounts, or for longer than prescribed. Tell your doctor if you feel an increased urge to use more of this medicine. Never share opioid medicine with another person, especially someone with a history of drug addiction. MISUSE CAN CAUSE ADDICTION, OVERDOSE, OR . Keep the medicine where others cannot get to it. Selling or giving away this medicine is against the law. Never crush a pill or use the liquid to inhale the mixture or inject it into your vein. This could result in . Your dose needs may change if you switch to a different brand, strength, or form of this medicine. Avoid medication errors by using exactly as directed on the label, or as prescribed by your doctor. Stop taking all other nihbtk-sgn-vkuwh opioid pain medicines when you start taking extended-release oxycodone. Swallow the extended-release forms whole to avoid exposure to a potentially fatal overdose. Do not crush, chew, break, open, or dissolve. Take the extended-release capsules with food. Read and carefully follow the instructions for use on how to prepare and take this medicine if you cannot swallow extended release capsules whole or you use a feeding tube. Ask your doctor or pharmacist if you don't understand these instructions. Measure liquid medicine with the supplied measuring device (not a kitchen spoon). You may be given other medications to help prevent or treat certain side effects. You may have withdrawal symptoms if you stop using oxycodone suddenly. Ask your doctor before stopping the medicine. Store at room temperature away from moisture and heat. Keep your medicine in a place where no one can use it improperly. Do not keep leftover medicine. Just one dose can cause in someone using it accidentally or improperly. Ask your pharmacist about a drug take-back program, or flush the unused medicine down the toilet. What happens if I miss a dose? Since oxycodone is used for pain, you are not likely to miss a dose. Skip any missed dose if it is almost time for your next dose. Do not use two doses at one time. What happens if I overdose? Seek emergency medical attention or call the Poison Help line at . An overdose can be fatal, especially in a child or person using opioid medicine without a prescription. Your doctor may recommend you get naloxone (a medicine to reverse an opioid overdose) and keep it with you at all times. A person caring for you can give the naloxone if you stop breathing or don't wake up. Your caregiver must still get emergency medical help and may need to perform CPR (cardiopulmonary resuscitation) on you while waiting for help to arrive. Anyone can buy naloxone from a pharmacy or local health department. Make sure any person caring for you knows where you keep naloxone and how to use it. What should I avoid while taking oxycodone? Do not drink alcohol or any products that contain alcohol. Dangerous side effects or could occur. Avoid driving or hazardous activity until you know how this medicine will affect you. Dizziness or drowsiness can causing falls, accidents, or severe injuries. Also avoid getting up too fast from a sitting or lying position, or you may feel dizzy. What are the possible side effects of oxycodone? Get emergency medical help if you have signs of an allergic reaction: hives, difficult breathing, swelling of your face, lips, tongue, or throat. Opioid medicine can slow or stop your breathing, and may occur, especially if you drink alcohol or use other drugs that cause drowsiness or slow breathing. A person caring for you should give naloxone and/or seek emergency medical attention if you have slow breathing with long pauses, blue colored lips, or if you are hard to wake up. Call your doctor at once if you have: slow heart rate, weak pulse, fainting, slow breathing (breathing may stop); chest pain, fast or pounding heartbeats; a seizure, extreme drowsiness; or decreased adrenal gland hormones--nausea, vomiting, stomach pain, loss of appetite, feeling tired or light-headed, muscle or joint pain, skin discoloration, craving salty foods. Serious breathing problems may be more likely in older adults and in those who are debilitated or have wasting syndrome or chronic breathing disorders. Seek medical attention right away if you have symptoms of serotonin syndrome, such as: agitation, hallucinations, fever, sweating, shivering, fast heart rate, muscle stiffness, twitching, loss of coordination, nausea, vomiting, or diarrhea. Common side effects may include: sleep problems (insomnia), itching; drowsiness, headache, dizziness, tiredness; or constipation, stomach pain, nausea, vomiting. This is not a complete list of side effects and others may occur. Call your doctor for medical advice about side effects. You may report side effects to FDA at 7-786-YAU-3947. What other drugs will affect oxycodone? You may have a fatal oxycodone overdose if you start or stop using certain medicines. Tell your doctor about all your medications. Tell your doctor about all your medications especially if you use medicine to treat HIV, antibiotic, antifungal medication, or seizure medication. Many other drugs can be dangerous when used with opioid medicine. Tell your doctor if you also use: medicine for allergies, asthma, blood pressure, motion sickness, irritable bowel, or overactive bladder; other opioid medicines, a benzodiazepine sedative like Valium, Klonopin, or Xanax; sleep medicine, muscle relaxers, or other drugs that make you drowsy; or drugs that affect serotonin, such as antidepressants, stimulants, or medicine for migraines or Parkinson's disease. This list is not complete and many other drugs may affect oxycodone. This includes prescription and ogos-ezv-ggzuqmw medicines, vitamins, and herbal products. Not all possible drug interactions are listed here. Where can I get more information? Your doctor or pharmacist can provide more information about oxycodone. Remember, keep this and all other medicines out of the reach of children, never share your medicines with others, and use this medication only for the indication prescribed. Every effort has been made to ensure that the information provided by [employer]') is accurate, up-to-date, and complete, but no guarantee is made to that effect. Drug information contained herein may be time sensitive. [employer] information has been compiled for use by healthcare practitioners and consumers in the [place] and therefore [employer] does not warrant that uses outside of the [place] are appropriate, unless specifically indicated otherwise. [employer]'s drug information does not endorse drugs, diagnose patients or recommend therapy. [employer] drug information is an informational resource designed to assist licensed healthcare practitioners in caring for their patients and/or to serve consumers viewing this service as a supplement to, and not a substitute for, the expertise, skill, knowledge and judgment of healthcare practitioners. The absence of a warning for a given drug or drug combination in no way should be construed to indicate that the drug or drug combination is safe, effective or appropriate for any given patient. [facility] does not assume any responsibility for any aspect of healthcare administered with the aid of information [facility] provides. The information contained herein is not intended to cover all possible uses, directions, precautions, warnings, drug interactions, allergic reactions, or adverse effects. If you have questions about the drugs you are taking, check with your doctor, nurse or pharmacist. Copyright 7044-2999 [facility] [employer]. Version: 17.. Revision Date: 11/12/2023. doxycycline (oral/injection) (DOX steph carroll) Acticlate, Adoxa, Alodox, Avidoxy, Doryx, Doryx MPC, Lymepak, Mondoxyne NL, Monodox, Morgidox, Morgidox [id number], Morgidox [id number], Okebo, Oracea, Targadox, Vibramycin, Vibramycin Monohydrate What is the most important information I should know about doxycycline? You should not take this medicine if you are allergic to any tetracycline antibiotic. Children younger than 8 years old should use doxycycline only in cases of severe or life-threatening conditions. This medicine can cause permanent yellowing or graying of the teeth in children Using doxycycline during could harm the unborn baby or cause permanent tooth discoloration later in the baby's life. What is doxycycline? Doxycycline is a tetracycline antibiotic that Doxycycline is used to treat many different bacterial infections, such as acne, urinary tract infections, intestinal infections, eye infections, gonorrhea, chlamydia, periodontitis (gum disease), and others. Doxycycline is also used to treat blemishes, bumps, and acne-like lesions caused by rosacea. Doxycycline will not treat facial redness caused by rosacea. Some forms of doxycycline are used to prevent malaria, to treat anthrax, or to treat infections caused by mites, ticks, or lice. Doxycycline may also be used for purposes not listed in this medication guide. What should I discuss with my healthcare provider before taking doxycycline? You should not take this medicine if you are allergic to doxycycline or other tetracycline antibiotics such as demeclocycline, minocycline, tetracycline, or tigecycline. Tell your doctor if you have ever had: liver disease; kidney disease; asthma or sulfite allergy; increased pressure inside your skull; or if you also take isotretinoin, seizure medicine, or a blood thinner such as warfarin (Coumadin). If you are using doxycycline to treat gonorrhea, your doctor may test you to make sure you do not also have syphilis, another sexually transmitted disease. Taking this medicine during may affect tooth and bone development in the unborn baby. Taking doxycycline during the last half of can cause permanent tooth discoloration later in the baby's life. Tell your doctor if you are or if you become . Doxycycline can make control pills less effective. Ask your doctor about using a non-hormonal control (condom, diaphragm with spermicide) to prevent . Doxycycline can pass into breast milk and may affect bone and tooth development in a nursing . Do not breastfeed while you are taking doxycycline. Doxycycline can cause permanent yellowing or graying of the teeth in children younger than 8 years old. Children should use doxycycline only in cases of severe or life-threatening conditions such as anthrax or [place] spotted fever. The benefit of treating a serious condition may outweigh any risks to the child's tooth development. How should I take doxycycline? Follow all directions on your prescription label and read all medication guides or instruction sheets. Use the medicine exactly as directed. Take doxycycline with a full glass of water. Drink plenty of liquids while you are taking doxycycline. Read and carefully follow any Instructions for Use provided with your medicine. Ask your doctor or pharmacist if you do not understand these instructions. Most brands of doxycyline may be taken with food or milk if the medicine upsets your stomach. Different brands of doxycycline may have different instructions about taking them with or without food. Take Oracea on an empty stomach, at least 1 hour before or 2 hours after a meal. You may need to split a doxycycline tablet to get the correct dose. Follow your doctor's instructions. Swallow a delayed-release capsule or tablet whole. Do not crush, chew, break, or open it. Measure liquid medicine with the dosing syringe provided, or with a special dose-measuring spoon or medicine cup. If you do not have a dose-measuring device, ask your pharmacist for one. If you take doxycycline to prevent malaria: Start taking the medicine 1 or 2 days before entering an area where malaria is common. Continue taking the medicine every day during your stay and for at least 4 weeks after you leave the area. Doxycycline is usually given by injection only if you are unable to take the medicine by mouth. A healthcare provider will give you this injection as an infusion into a vein. Use this medicine for the full prescribed length of time, even if your symptoms quickly improve. Skipping doses can increase your risk of infection that is resistant to medication. Doxycycline will not treat a viral infection such as the flu or a common cold. Store at room temperature away from moisture, heat, and light. Throw away any unused medicine after the expiration date on the label has passed. Using doxycycline can cause damage to your kidneys. What happens if I miss a dose? Take the medicine as soon as you can, but skip the missed dose if it is almost time for your next dose. Do not take two doses at one time. What happens if I overdose? Seek emergency medical attention or call the Poison Help line at . What should I avoid while taking doxycycline? Do not take iron supplements, multivitamins, calcium supplements, antacids, or laxatives within 2 hours before or after taking doxycycline. Avoid taking any other antibiotics with doxycycline unless your doctor has told you to. Doxycycline could make you sunburn more easily. Avoid sunlight or tanning beds. Wear protective clothing and use sunscreen (SPF 30 or higher) when you are outdoors. Antibiotic medicines can cause diarrhea, which may be a sign of a new infection. If you have diarrhea that is watery or bloody, call your doctor. Do not use anti-diarrhea medicine unless your doctor tells you to. What are the possible side effects of doxycycline? Get emergency medical help if you have signs of an allergic reaction (hives, difficult breathing, swelling in your face or throat) or a severe skin reaction (fever, sore throat, burning in your eyes, skin pain, red or purple skin rash that spreads and causes blistering and peeling). Seek medical treatment if you have a serious drug reaction that can affect many parts of your body. Symptoms may include: skin rash, fever, swollen glands, flu-like symptoms, muscle aches, severe weakness, unusual bruising, or yellowing of your skin or eyes. This reaction may occur several weeks after you began using doxycycline. Call your doctor at once if you have: severe stomach pain, diarrhea that is watery or bloody; throat irritation, trouble swallowing; chest pain, irregular heart rhythm, feeling short of breath; little or no urination; low white blood cell counts--fever, chills, swollen glands, body aches, weakness, pale skin, easy bruising or bleeding; increased pressure inside the skull--severe headaches, ringing in your ears, dizziness, nausea, vision problems, pain behind your eyes; or signs of liver or pancreas problems--loss of appetite, upper stomach pain (that may spread to your back), tiredness, nausea or vomiting, fast heart rate, dark urine, jaundice (yellowing of the skin or eyes). Common side effects may include: nausea, vomiting, upset stomach, loss of appetite; mild diarrhea; skin rash or itching; darkened skin color; or vaginal itching or discharge. This is not a complete list of side effects and others may occur. Call your doctor for medical advice about side effects. You may report side effects to FDA at 1-689-FEW-7278. What other drugs will affect doxycycline? Sometimes it is not safe to use certain medications at the same time. Some drugs can affect your blood levels of other drugs you take, which may increase side effects or make the medications less effective. Other drugs may affect doxycycline, including prescription and efxn-umc-ysebmfs medicines, vitamins, and herbal products. Tell your doctor about all your current medicines and any medicine you start or stop using. Where can I get more information? Your pharmacist can provide more information about doxycycline. Remember, keep this and all other medicines out of the reach of children, never share your medicines with others, and use this medication only for the indication prescribed. Every effort has been made to ensure that the information provided by [employer]. ('[employer]') is accurate, up-to-date, and complete, but no guarantee is made to that effect. Drug information contained herein may be time sensitive. [employer] information has been compiled for use by healthcare practitioners and consumers in the [place] and therefore [employer] does not warrant that uses outside of the [place] are appropriate, unless specifically indicated otherwise. [employer]'s drug information does not endorse drugs, diagnose patients or recommend therapy. [employer]'s drug information is an informational resource designed to assist licensed healthcare practitioners in caring for their patients and/or to serve consumers viewing this service as a supplement to, and not a substitute for, the expertise, skill, knowledge and judgment of healthcare practitioners. The absence of a warning for a given drug or drug combination in no way should be construed to indicate that the drug or drug combination is safe, effective or appropriate for any given patient. [facility] does not assume any responsibility for any aspect of healthcare administered with the aid of information [facility] provides. The information contained herein is not intended to cover all possible uses, directions, precautions, warnings, drug interactions, allergic reactions, or adverse effects. If you have questions about the drugs you are taking, check with your doctor, nurse or pharmacist. Copyright 9118-0225 [employer]. Version: .. Revision Date: 06/26/2023. Education Materials Total Hip Replacement, Anterior, Care After This sheet gives you information about how to care for yourself after your procedure. Your doctor may also give you more specific instructions. If you have problems or questions, contact your doctor. What can I expect after the procedure? After the procedure, it is common to have: Pain. Stiffness. Discomfort. Follow these instructions at home: Medicines Take phkn-bzn-uzqbydl and prescription medicines only as told by your doctor. If you were prescribed a medicine to thin your blood (anticoagulant), take it as told by your doctor. Surgery cut care Follow instructions from your doctor about how to take care of your cut (incision) from surgery. Make sure you: ? Wash your hands with soap and water before you change your bandage (dressing). If you cannot use soap and water, use alcohol-based hand care process manager. ? Change your bandage as told by your doctor. ? Leave stitches (sutures), skin glue, or skin tape (adhesive) strips in place. They may need to stay in place for 2 weeks or longer. If tape strips get loose and curl up, you may trim the loose edges. Do not remove tape strips completely unless your doctor tells you to do that. Check your surgical cut every day for signs of infection. Check for: ? Redness, swelling, or pain. ? Fluid or blood. ? Warmth. ? Pus or a bad smell. Bathing Do not take baths, swim, or use a hot tub until your doctor says it is okay. Keep the bandage dry until your doctor says it can be removed. Managing pain, stiffness, and swelling If directed, put ice on the hip area. ? Put ice in a plastic bag. ? Place a towel between your skin and the bag. ? Leave the ice on for 20 minutes, 2 3 times a day. Move your toes often to avoid stiffness and to lessen swelling. Raise (elevate) your leg above the level of your heart while you are sitting or lying down. Activity Rest as told by your doctor. Do not sit for a long time without moving. Get up to take short walks every 1 2 hours. This is important. Ask for help if you feel weak or unsteady. Do exercises as told by your doctor or physical therapist. Use a walker, crutches, or a cane as told by your doctor. ? You may use your legs to support (bear) your body weight as told by your doctor. Follow instructions about how much weight you may safely support on your affected leg (weight-bearing restrictions). ? A physical therapist may show you how to get out of a bed and chair and how to go up and down stairs. You will first do this with a walker, crutches, or a cane. Then you will do it without any of these devices. ? Once you are able to walk without a limp, you may stop using a walker, crutches, or cane. Return to your normal activities as told by your doctor. Ask your doctor what activities are safe for you. Safety To help prevent falls: ? Keep floors clear of objects you may trip over. ? Place items that you may need within easy reach. Wear an apron or tool belt with pockets for carrying objects. This leaves your hands free to help with your balance. Driving Do not drive or use heavy machinery while taking prescription pain medicine. Ask your doctor when it is safe to drive. General instructions Wear compression stockings as told by your doctor. These help to prevent blood clots and reduce swelling in your legs. Keep doing breathing exercises as told by your doctor. This helps prevent lung infection. If you are taking prescription pain medicine, take actions to prevent or treat constipation. Your doctor may suggest that you: ? Drink enough fluid to keep your pee (urine) pale yellow. ? Eat foods that are high in fiber. These include fresh fruits and vegetables, whole grains, and beans. ? Limit foods that are high in fat and sugar. These include fried or sweet foods. ? Take an gmxj-izd-taltwng or prescription medicine for constipation. Do not use any products that have nicotine or tobacco in them, such as cigarettes and e-cigarettes. These can delay bone healing. If you need help quitting, ask your doctor. Tell your doctor if you plan to have dental work. Also: ? Tell your dentist about your joint replacement. ? Ask your doctor if there are instructions you need to follow before dental care and routine cleanings. Keep all follow-up visits as told by your doctor. This is important. Contact a doctor if: You have a fever or chills. You have a cough. You feel short of breath. Your medicine is not helping your pain. You have any of these at or near your cut from surgery: ? Redness, swelling, or pain. ? Fluid or blood. ? An area that feels warm when you touch it. ? Pus or a bad smell. Get help right away if: You have very bad pain. You have trouble breathing. You have chest pain. You have redness, swelling, pain, and warmth in your calf or leg. Summary Follow instructions from your doctor about how to take care of your surgery cut (incision). Do not take baths, swim, or use a hot tub until your doctor says it is okay. Use crutches, a walker, or a cane as told by your doctor. If you were prescribed a medicine to thin your blood (anticoagulant), take it as told by your doctor. This information is not intended to replace advice given to you by your health care provider. Make sure you discuss any questions you have with your health care provider. Document Released: 01/21/2019 Document Revised: 02/15/2020 Document Reviewed: 01/21/2019 Elsevier Patient Education 2020 [employer] [facility] Post-operative Instructions PLEASE FOLLOW [facility] POST-OP INSTRUCTIONS GIVEN WATCH FOR SIGNS OF INFECTION: call the office ([phone]) if experencing any of the following: (Usually appears 36-48 hours after surgery) Increased temperature (101 degrees Fahrenheit or higher) Redness or swelling Increased uncontrolled pain Foul odor or drainage Calf discomfort Significant swelling Or if having any chest pain, shortness of breath, or difficulty breathing or swallowing call the office or go the nearest Emergency Room. If you have any questions, please call your doctor at the number listed on your follow up instructions. Form: 338A (33921) R: 02/24 Additional Information VACCINATE! IT SAVES LIVES! Members of the community who have not yet received the COVID-19 vaccine and would like to receive it can visit one of [facility] vaccine clinics. There are many vaccine clinic locations within the [facility]. For locations and available times, please visit [email or web address] .[email or web address] It is important to note that some COVID mobile vaccine clinics are held outdoors and may be canceled in rainy or stormy conditions. To learn more about pediatric vaccinations (ages 5-11), we invite you to visit the [facility] webpage. [email or web address]-[email or web address] -[email or web address]-Questions.html To learn more about the COVID-19 vaccine, we invite you to visit the CDC website for a list of frequently asked questions.https://www.cdc.gov/coron avirus/2019-ncov/vaccines/faq.html [employer] [facility] Patient Portal Access Instructions: Stay connected with your healthcare team and access your personal medical information anytime with the [employer] Patient Portal. Please follow the directions below to create your [facility] account: 1.Access the email account you provided upon registration to the hospital/physician office.2.Look for an invitation email from [facility].3.Open the email and access the invitation link: Accept Invitation to [email or web address].4.Fill in the required del real to create your account. To access your account, visit [email or web address]. Click the blue button labeled Access Patient Portal and then log in with the username and password that you created in the steps above. You will be able to view your test results, lab results, a summary of your visits, upcoming appointments and more. There is also a convenient messaging option where you can send secure messages to your provider. In addition, you will have the ability to download any documents or summaries to your computer and/or send the information securely to a physician. Remember that your healthcare information is confidential, so carefully consider who you will allow to register on the [facility] Patient Portal for access to your information. You can also access the [facility] Patient Portal on the [facility] juli. Simply click on Patient Portal and then log into your account. If you would like to receive a full copy of your medical records, please contact the [facility] Medical Records Department by calling [phone], Saturday through Saturday between 8 a.m. and 4:30 p.m. HOW TO SAFELY DISPOSE OF PRESCRIPTION MEDICATIONS Please use one of the following methods to safely dispose of your unused medications. 1.Use a drug disposal kit: the drug disposal pouch allows you to safely discard your old and unused drugs. Ask your nurse to give you one when you are discharged.2.Visit a local take-back location: Many local pharmacies and police departments have programs that collect old and unwanted prescription drugs. Call your local pharmacy or go to http://Likelii/5E9Cd3v to find one close to you.3.Make use of household items: Use cat litter or old coffee grounds to dispose medications if other options are not available. Mix your drugs with these household products, seal them in an airtight container and throw it into the garbage. Call [facility]: [phone] to be sure your drugs can be disposed of in this way. Some medicines may require a different approach.4.Never flush your medications down the toilet. IF YOU HAVE BEEN PRESCRIBED AN OPIOID FOR PAIN If you have been prescribed an opioid (such as hydrocodone, oxycodone or morphine), it is critical to understand the possible side effects and risks of opioid pain medications. Even when taken as directed, opioids can have several side effects including: Tolerance, meaning you might need to take more of a medication for the same pain relief. Nausea, vomiting and/or constipation. Sleepiness, dizziness, dry mouth, confusion, depression or itching. Physical dependence, meaning you have withdrawal symptoms when a medication is stopped, can develop within a few days. KNOW YOUR RESPONSIBILITIES It is important to know exactly how much and how often to take the opioid pain medications you are prescribed. Never take opioids in higher amounts or more often than prescribed. Do not combine opioids with alcohol or other drugs that cause drowsiness, such as benzodiazepines, also known as benzos, including diazepam and alprazolam, muscle relaxants or sleep aids. Never sell or share prescription opioids. This is illegal. Store opioids in a secure place and out of reach of others (including children, family, friends and visitors). The last page of this document has been signed and retained as a CHART COPY. Signatures Patient Education Materials Total Hip Replacement, Anterior, Care After, Bani-vx-Ijar 5 - [facility] Post-op Instruction 05/2017 (22813) Medication Leaflets oxycodone, doxycycline (oral/injection) My discharge plan and instructions have been reviewed and explained to me and I,EHRB VALDES understand my current condition and have read and understand these discharge instructions. I have received a written copy of the plan/instructions. If I have questions, I am aware that I should contact my doctor. Patient/Settlement Clerk Signature: ____ Date/Time: Relationship to Patient: __ Witness Name/Signature: Date/Time: [facility] 08-05-2024 Note Date of Service August 05, 2024 Subjective The patient was sitting in bed upon examination. Patient denies any chest pain, shortness of breath, dizziness, lightheadedness, nausea or vomiting, or calf pain. No adverse overnight events. Pain has been controlled on medications. Patient states she is doing very well this morning and is very pleased with outcome of surgery at this time. The pain she was having prior to surgery is significantly improved. She does complain of soreness in the thigh. Patient also has a sore on her left buttock region that she is currently on antibiotic postoperatively. She also was treated preoperatively on our anemia protocol with ferrous sulfate and folic acid. Patient does have chronic kidney disease and history of pulmonary embolism. She is currently on Eliquis. Objective Vitals and Measurements T: 36.5 C (Oral) TMIN: 36.0 C (Temporal Artery) TMAX: 36.6 C (Oral) HR: 79 (Monitored) RR: 16 BP: 126/76 SpO2: 99% HT: 156 cm WT: 57 kg BMI: 23.42 Intake and Output 7AM Yesterday to 7AM Today Intake and Output (Last 24 hours) Intake Administration Information 985.31 Supplement Intake 600.00 Output Intra-Op EBL 150.00 Urine Count 4.00 Total Summary Total Intake 1585.31 Total Output 150.00 Fluid Balance 1435.31 Physical Exam Vital signs stable, afebrile SCD's and TARUN Hose in place bilaterally Patient is able to plantarflex and dorsiflex actively Sensation is intact to saphenous, sural, superficial and deep peroneal, and tibial distribution Dressings are clean dry and intact Negative signs and symptoms of DVT, negative Homans bilaterally Weight Dosing Weight: 57 kg (08/04/24) Dosing Weight: 57 kg (08/04/24) Medications Medications (28) Active Scheduled: (17) acetaminophen 500 mg Tablet 1,000 mg 2 tab(s), Oral, q6h apixaban 5 mg tablet 5 mg 1 tab(s), Oral, BID atorvastatin 40 mg tablet 40 mg 1 tab(s), Oral, qHS bacitracin/neomycin/polymyxin B topical 400 units-3.5 mg-5000 units/g Ointment 1 juli, Topical, BID carvedilol 12.5 mg tablet 12.5 mg 1 tab(s), Oral, BIDM dexamethasone 10 mg/mL (1mL) SDV 10 mg 1 mL, IV Push, AsDirected docusate sodium 100 mg Capsule 100 mg 1 cap(s), Oral, BID docusate-senna (Senokot S) 50 mg-8.6 mg Tablet 2 tab(s), Oral, BID doxycycline hyclate 100 mg Capsule 100 mg 1 cap(s), Oral, q12h duloxetine [address] capsule 60 mg 2 cap(s), Oral, qDay famotidine 20 mg tablet 20 mg 1 tab(s), Oral, qDay magnesium hydroxide 8% Suspension 30 mL UD 30 mL, Oral, Daily multivitamin (Myadec) with minerals Therapeutic Multiple Vitamins with Minerals Tablet 1 tab(s), Oral, qDayM pantoprazole 20 mg EC tablet 40 mg 2 tab(s), Oral, qDay polyethylene glycol 3350 - UD packet 17 gram(s) 15 mL, Oral, qDay traZODONE 50 mg Tablet 50 mg 1 tab(s), Oral, qHS verapamil 120 mg ER tablet 120 mg 1 tab(s), Oral, qDay Continuous: (0) PRN: (11) acetaminophen 325 mg Tablet 650 mg 2 tab(s), Oral, q4h diphenhydramine 25 mg tablet 25 mg 1 tab(s), Oral, q6h diphenhyDRAMINE 50 mg/mL (1 mL) INJ 25 mg 0.5 mL, IV Push, q6h ketorolac 30 mg/mL (1 mL) vial 15 mg 0.5 mL, IV Push, q6h morphine 2 mg/mL 1 mL syringe 2 mg 1 mL, IV Push, q1h ondansetron 2 mg/ 1 mL 2 mL INJ 4 mg 2 mL, IV Push, q8h oxycodone 5 mg tablet (immediate release) 5 mg 1 tab(s), Oral, q4h oxycodone 5 mg tablet (immediate release) 10 mg 2 tab(s), Oral, q4h prochlorperazine 10 mg/2 mL vial 5 mg 1 mL, IV Push, q6h sodium biphosphate-sodium phosphate 19 gm-7 gm Enema 133 mL, Rectal, qDay zolpidem 5 mg tablet 10 mg 2 tab(s), Oral, qHS Lab Results 08/05 05:46 WBC: 11.1 H Hgb: 8.9 L Hct: 27.2 L Platelet: 205 Neutrophil %: 87.5 H Glucose Level: 158 H Sodium Level: 137 Potassium Level: 4.9 BUN: 30 H Creatinine Lvl (s): 1.72 H EKG No qualifying data available. Assessment/Plan B12 deficiency anemia CAD - Coronary artery disease CKD (chronic kidney disease), stage III Depression History of pulmonary embolism HYPERTENSION, ESSENTIAL Insomnia Insomnia Osteoarthritis 1. Status post left direct anterior total hip arthroplasty postop day #1 2. Continue pain medications: Tylenol and oxycodone. Due to the chronic kidney disease and anticoagulant we are not able to use nonsteroidal anti-inflammatories. Patient reports that she does not have any tramadol at home. I did advise her of not combining to narcotics. We also had to change her pharmacy as her pharmacy in [place] did not have any narcotics for discharge. 3. DVT prophylaxis: Patient is resuming her Eliquis postoperatively and will continue this management by her primary care provider. 4. Physical therapy: Weightbearing as tolerated with walker. Continue anterior hip precautions 5. H & H: 8.9/27.2, asymptomatic. Preoperatively patient was found to be with anemia with her preoperative hemoglobin at 11.0. She currently is asymptomatic and her vitals are stable. She is currently on ferrous sulfate and folic acid. I will have her follow-up with her primary care provider 12 to 14 days postoperatively with repeat labs. I would defer to the primary care provider for further treatment. She voiced understanding and agreement. 6. Reactive Leukocytosis: currently 11.1, afebrile. No clinical signs of infection. 7. Patient will continue with doxycycline for 2 weeks postoperatively due to sore on her left buttock region. I discussed with the patient potential side effects with the doxycycline including hypersensitivity to the sunlight and must take appropriate precautions. Also recommended probiotic while taking the antibiotic for 2 weeks postoperatively. I will have patient follow-up with her primary care provider for continued management of this. Patient was also instructed to use triple antibiotic ointment over this area and do daily cleanses. Patient voiced understanding and agreement. 8. Encouraged incentive spirometry 9. Continue postoperative medical management per medicine 10. Postoperative constipation: Discussed with the patient to continue stool softener until first bowel movement. After first bowel movement patient can then take as needed. They were also instructed that if they are not able to have a bowel movement within 3 days they are to contact our office for change of medication. Patient voiced understanding. 11. Disposition: Plan will be for discharge home this afternoon as long as she remains stable medically, tolerates therapy, and pain is adequately controlled. We will send her medications to [facility]. Due to shortage of pain medication at [facility] we did need to make a change. Case management is currently on board for switching her over to home health physical therapy. I did advise her after 2-3 weeks she be transitioned over to outpatient therapy. She voiced understanding. Home health order will be placed on chart. Patient will follow-up per postoperative instructions. Upon discharge she will contact our office. Case management is involved with setting up postoperative follow-ups with primary care provider. I have reviewed the [place] Automated Rx Reporting System (OARRS) report for this patient for refill pattern and other prescriber involvement as part of the appropriate surveillance for the provision of acute and chronic controlled medications. The report was requested and reviewed on the date of this entry, and was considered in the prescribing process This dictation was created using voice recognition software. Phonetic and/or grammatical errors may exist. Digitally Signed by JAMES MORALES PA-C on 08/05/2024 09:32 AM [facility] 08-05-2024 Pastoral care Progress note Pastoral Care Note Entered On: 08/05/2024 9:00 EDT Performed On: 08/05/2024 8:59 EDT by James Moralez Pastoral Care Type of Pastoral Visit : Initial visit Spiritual Care Visit Initiated by : Pharmaceutical Process Engineer Spiritual Care Reason for Visit : General Spiritual Assessment : Not using [employer] Spiritual Care Emotional Assessment : Optimistic Spiritual Care Intervention : Supportive presence Spiritual Plan of Care : Spiritual Care Declined Pastoral Care Comments : patient states that she is fine, will be going home, and has no concerns Pastoral Care Visit Length : 5 minute(s) James Moralez - 08/05/2024 8:59 EDT Digitally Signed by James Moralez on 08/05/2024 08:59 AM [facility] 08-04-2024 Note ORIGINAL HISTORY: Arthroplasty COMPARISON: No FINDINGS: There is an arthroplasty in near anatomic alignment. There is no radiographic evidence of loosening or failure of hardware. There is gas in the overlying soft tissues. IMPRESSION: Left hip arthroplasty with immediate postoperative changes. Interpreted by: Go Valdes MD Preliminary Report By: Go Valdes MD Electronically signed By Go Valdes MD Dictated Date: 08/04/2024 1:19:36 PM Prelim Date: 08/04/2024 1:20:15 PM Sign Date: 08/04/2024 1:20:15 PM Ordering Provider: MAGED PEDRO [facility] 08-04-2024 Note ORIGINAL Images acquired, not reported on this accession number. [facility] 08-04-2024 Anesthesiology Consult note Patient: HERB VALDES Age: 69 years Sex: Female : 1955 Associated Diagnoses: None Author: LOBITO CRUZ Preoperative Information Time of last food or liquid consumption: 08/04/2024 00:00:00 Anesthesia history Patient's history: negative. Family's history: negative. Review of Systems Ear/Nose/Mouth/Throat: Negative. Respiratory: Shortness of breath. Cardiovascular: anemia, CABG, CAD, HTN. Gastrointestinal: Negative. Genitourinary: CKD. Endocrine: Negative. Musculoskeletal: OA. Integumentary: Negative. Neurologic: Negative. Health Status Allergies: Allergic Reactions (Selected) Severity Not Documented Codeine- Nausea. Lisinopril- Cough., Allergies (2) ActiveSeverityReaction codeinenausea lisinoprilCough Current medications: (Selected) Inpatient Medications Ordered Betadine 10% topical solution: 17.5 mL, mL/hr, Topical (INT), PREOP pharm Cyklokapron IVPB: 2,000 mg, 20 mL, 0 mL/hr, Topical, PREOP pharm Decadron: 10 mg, 1 mL, IV Push, AsDirected LR 1000 mL: 125 mL/hr, Intravenous, Stop: 08/05/24 17:59:00 EDT Naropin 100 mg + Toradol 15 mg + morphine 2.5 mg + EPINEPHrine 0.3 m mg, 20 mL, mL/hr, Other, PREOP pharm Naropin 100 mg + Toradol 15 mg + morphine 2.5 mg + EPINEPHrine 0.3 m mg, 20 mL, mL/hr, Other, PREOP pharm ceFAZolin: 2 gram(s), 200 mL/hr, IV Piggyback, PREOP pharm Outpatient Medications Pending Complete cyanocobalamin 1000 mcg/mL injectable solution: 1,000 mcg, 1 mL, Intramuscular, qWeek Prescriptions Prescribed DULoxetine 60 mg oral delayed release capsule: 60 mg, 1 cap(s), Oral, qDay, 90 cap(s), 3 Refill(s) Eliquis 5 mg oral tablet: 5 mg, 1 tab(s), Oral, BID, 60 tab(s), 3 Refill(s) Vitamin B12 500 mcg oral tablet: 1,000 mcg, 2 tab(s), Oral, qDay, for 90 day(s), 180 tab(s), 3 Refill(s) atorvastatin 40 mg oral tablet: 40 mg, 1 tab(s), Oral, qHS, 90 tab(s), 3 Refill(s) carvedilol 12.5 mg oral tablet: 12.5 mg, 1 tab(s), Oral, BIDM, 180 tab(s), 3 Refill(s) clopidogrel 75 mg oral tablet: 75 mg, 1 tab(s), Oral, qDay, 90 tab(s), 3 Refill(s) eszopiclone 3 mg oral tablet: 3 mg, 1 tab(s), Oral, qHS, for 90 day(s), OARRS reviewed 05/21, february fill 05/25, 90 tab(s), 0 Refill(s) fluticasone 50 mcg/inh NASAL spray: 100 mcg, 2 spray(s), Nostril, each, qDay, for 30 day(s), shake well before using, 16 gram(s), 0 Refill(s) ondansetron 4 mg oral tablet, disintegratin mg, 1 tab(s), Oral, q6hr, for 3 day(s), PRN: as needed for nausea/vomiting, 12 tab(s), 0 Refill(s) traZODone 50 mg oral tablet: 50 mg, 1 tab(s), Oral, qHS, for 90 day(s), 90 tab(s), 3 Refill(s) verapamil 120 mg/12 hours oral tablet, extended release: 120 mg, 1 tab(s), Oral, qDay, 90 tab(s), 3 Refill(s) Documented Medications Documented Dulcolax Stool Softener: 100 mg, Oral, BID, PRN: constipation, 0 Refill(s) MiraLax oral powder for reconstitution: 17 gram(s), Oral, qDay, 0 Refill(s) Tylenol Extra Strength 500 mg oral tablet: 1,000 mg, 2 tab(s), Oral, QID, PRN: for pain, 0 Refill(s) Vitamin D3 125 mcg (5000 intl units) oral capsule: 125 mcg, 1 cap(s), Oral, qDay, 0 Refill(s) calcium (as carbonate) 600 mg oral tablet: 1,200 mg, 2 tab(s), Oral, qDay, PRN: for control of stomach acid, 0 Refill(s) ferrous sulfate 325 mg (65 mg elemental iron) oral delayed release tablet: 325 mg, 1 tab(s), Oral, qDay, this could be BID, 0 Refill(s) folic acid 1 mg oral tablet: 1 mg, 1 tab(s), Oral, qDay, 0 Refill(s) pantoprazole 40 mg oral enteric coated tablet: 40 mg, 1 tab(s), Oral, qDay, 0 Refill(s) traMADol 50 mg oral tablet: 50 mg, 1 tab(s), Oral, q12h, PRN: for pain, 0 Refill(s), Medications (7) Active Scheduled: (6) ceFAZolin 2 gram(s), IV Piggyback, PREOP pharm dexamethasone 10 mg/mL (1mL) SDV 10 mg 1 mL, IV Push, AsDirected povidone iodine topical 17.5 mL, Topical (INT), PREOP pharm ropivacaine 100 mg + ketorolac 15 mg + morphine 2.5 mg + epinephrine 0.3 mg 100 mg 20 mL, Other, PREOP pharm ropivacaine 100 mg + ketorolac 15 mg + morphine 2.5 mg + epinephrine 0.3 mg 100 mg 20 mL, Other, PREOP pharm tranexamic acid 2,000 mg 20 mL, Topical, PREOP pharm Continuous: (1) Lactated Ringers 1000 mL 1,000 mL, Intravenous, 125 mL/hr PRN: (0) Problem list: Medical Anemia / SNOMED CT 982853133 / Confirmed Bronchitis / SNOMED CT 60713330 / Confirmed CABG - Coronary artery bypass graft / SNOMED CT 776561788 / Confirmed CAD - Coronary artery disease / SNOMED CT 7136775615 / Confirmed Carotid stenosis, bilateral / SNOMED CT 521195119 / Confirmed CKD (chronic kidney disease) / SNOMED CT 6072564190 / Confirmed Constipation / SNOMED CT 05599063 / Confirmed Cystocele with prolapse / SNOMED CT 874046269 / Confirmed Depression / SNOMED CT 727732131 / Confirmed High risk medication use / SNOMED CT 165802941 / Confirmed SOB (shortness of breath) / SNOMED CT 521782088 / Confirmed HYPERTENSION, ESSENTIAL / SNOMED CT 83301565 / Confirmed Glasses / SNOMED CT 0102976954 / Confirmed Headache / SNOMED CT 09723010 / Confirmed Heart disease / SNOMED CT 37975965 / Confirmed History of carotid endarterectomy / SNOMED CT 5073667464 / Confirmed Hx of CABG / SNOMED CT 6396347844 / Confirmed History of PTCA / SNOMED CT 6634645194 / Confirmed Hypertension / SNOMED CT [id number] / Confirmed Insomnia / SNOMED CT 577810693 / Confirmed Irritable bowel syndrome / SNOMED CT 18525963 / Confirmed Nephrolithiasis / SNOMED CT 612543455 / Confirmed Lipoma / SNOMED CT 555947959 / Confirmed B12 deficiency anemia / SNOMED CT 944085854 / Confirmed Osteoarthritis / SNOMED CT 4195915729 / Confirmed Osteonecrosis of hip / SNOMED CT 8214223540 / Confirmed Osteopenia of femoral neck / SNOMED CT 790690509 / Confirmed Preop cardiovascular exam / SNOMED CT 574006680 / Confirmed Medicare annual wellness visit, subsequent / SNOMED CT 614959069 / Confirmed S/P PTCA (PERCUTANEOUS TRANSLUMINAL CORONARY ANGIOPLASTY) / SNOMED CT 5190954170 / Confirmed Pulmonary emboli / SNOMED CT 67870483 / Confirmed Seasonal allergy / SNOMED CT 5005276716 / Confirmed Spasm of back muscles / SNOMED CT 624072868 / Confirmed Thoracic outlet syndrome / SNOMED CT 227267494 / Confirmed, Active Problems (35) Anemia B12 deficiency anemia Bronchitis CABG - Coronary artery bypass graft CAD - Coronary artery disease Carotid stenosis, bilateral Chest pain CKD (chronic kidney disease) Constipation Cystocele with prolapse Depression Glasses Headache Heart disease High risk medication use History of carotid endarterectomy History of PTCA Hx of CABG Hypertension HYPERTENSION, ESSENTIAL Insomnia Irritable bowel syndrome Lipoma Medicare annual wellness visit, subsequent Nephrolithiasis Osteoarthritis Osteonecrosis of hip Osteopenia of femoral neck Preop cardiovascular exam Pulmonary emboli S/P PTCA (PERCUTANEOUS TRANSLUMINAL CORONARY ANGIOPLASTY) Seasonal allergy SOB (shortness of breath) Spasm of back muscles Thoracic outlet syndrome Histories Past Medical History: Active Nephrolithiasis (915706433): Onset in 2007 at 52 years. Hypertension ([id number]) Comments: 03/24/2014 EDT 0:25 EDT MARCI MALDONADO MD active prior to hospital admissiion without ischemic sx or cardiac limitations. Pt denies recent changes in cardiac standpoint or change in medical managament. EKG NSR, old inf, ant Q waves and lateral t wave flattening. No prior EKG present for comparison. took metoprolol yesterday am CABG - Coronary artery bypass graft (757257529) Comments: 03/24/2014 EDT 0:27 MARCI PURVIS MD prior to CABG, pt states she had multiple stents placed for CAD. Remains on plavix for stent/shasta patency Seasonal allergy (1543309850) Constipation (29243308) Irritable bowel syndrome (12551661) Headache (44690569) Glasses (0722808814) Depression (622602432) Resolved Bowel obstruction ([id number] ): Resolved. Comments: 03/24/2014 EDT 0:12 MARCI PURVIS MD Admitted earlier today with Abdominal pain, CT scan with suggestion for Bowel obtruction. Insomnia (691538572): Resolved. Chest pain in adult (98384903): Resolved. Family History: Heart disease Mother Sister Brother Cancer Father Sister Brother Procedure history: Cardiac catheterization (10769684) on 03/11/2023 at 67 Years. Placement of stent ([id number]) on 03/11/2023 at 67 Years. Endarterectomy (3045312584) on 01/04/2020 at 64 Years. Nerve conduction study (68659660) on 02/06/2017 at 61 Years. Comments: 12/22/2020 7:[address] [facility];abn CT angiography of neck ([id number]) on 12/12/2016 at 61 Years. Comments: 12/22/2020 8:01 Sharri Whitfield LPN [facility] Duplex ultrasound, carotid (145133544) on 11/14/2016 at 61 Years. Comments: 12/22/2020 8:06 Sharri Whitfield LPN abn Lithotripsy (029711004) in 2008 at 53 Years. section (09868483). Cholecystectomy (57472582). CABG x 1 - Coronary artery bypass graft x 1 (312273813). Colonoscopy (696858258). Abdominal hysterectomy (023118192). Coronary stent site (664664604). Carotid artery (146929017). Comments: 07/09/2018 21:07 EDT - MARCK Mcfadden left side x2 US - Ultrasound carotid (610522649). 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 - 05/21/2024 15:03 - Sharri Ochoa LPN Physical Examination Vital Signs 08/04/2024 11:15 EDT Heart Rate Monitored 71 bpm bpm Respiratory Rate - Anes 0 br/min br/min 08/04/2024 11:10 EDT Heart Rate Monitored 100 bpm bpm Respiratory Rate - Anes 0 br/min br/min Systolic Blood Pressure Non-Invasive 150 mmHg mmHg Diastolic Blood Pressure Non-Invasive 65 mmHg mmHg 08/04/2024 11:05 EDT Respiratory Rate - Anes 0 br/min br/min Systolic Blood Pressure Non-Invasive 145 mmHg mmHg Diastolic Blood Pressure Non-Invasive 71 mmHg mmHg 08/04/2024 9:11 EDT Temperature Temporal Artery 36.2 DegC Peripheral Pulse Rate 76 bpm Respiratory Rate 12 br/min LOW Systolic Blood Pressure Non-Invasive 123 mmHg Diastolic Blood Pressure Non-Invasive 73 mmHg Vital Signs (last 24 hrs) Last Charted Temp Wrtvduyl90.2 DegC (AUG 04 09:11) Heart Rate Fegcjdvcz39 bpm (AUG 04 11:15) LVW573 mmHg (AUG 04 11:10) DBP65 mmHg (AUG 04 11:10) Measurements from flowsheet : Measurements 08/04/2024 9:11 EDT Height 156 cm Admission Weight 57 kg [place] Body Weight 48.76 kg Admission Body Mass Index 23.42 m2 Pain assessment: Pain Assessment 08/04/2024 9:53 EDT Primary Pain Intensity 8 08/04/2024 9:11 EDT Primary Pain Location Hip Primary Pain Laterality Left Primary Pain Intensity 8 Primary Pain Quality Stabbing Pain Scale Type 0-10 Pain scale . General: Alert and oriented. Airway: Normal temporomandibular joint mobility. Mallampati classification: I (soft palate, fauces, uvula, pillars visible). Head: Normocephalic. Dentition Evaluation: Dentures, lower, Dentures, upper. Neck: Supple. Respiratory: Lungs are clear to auscultation. Cardiovascular: Normal rate. Heart Sounds: Normal. Gastrointestinal: Soft. Musculoskeletal Normal range of motion. Integumentary: Intact. Neurologic: Alert, Oriented. Review / Management Results review: No qualifying data available , Lab results 08/04/2024 11:24 EDT SN - AK - Route of Administration Local SN - AK - Route of Administration Local SN - AK - By (Single) SN - AK - By (Single) SN - AK - By (Single) SN - AK - By (Single) 08/04/2024 11:15 EDT Heart Rate Monitored 71 bpm bpm Respiratory Rate - Anes 0 br/min br/min Oxygen Saturation 85 % % 08/04/2024 11:10 EDT Heart Rate Monitored 100 bpm bpm Respiratory Rate - Anes 0 br/min br/min Systolic Blood Pressure Non-Invasive 150 mmHg mmHg Diastolic Blood Pressure Non-Invasive 65 mmHg mmHg 08/04/2024 11:07 EDT SN - XI - X-Ray Type C-Arm 08/04/2024 11:07 EDT SN - Proc - Anesthesia Type Spinal, Local SN - Proc - Actual Procedure DIRECT ANTERIOR LEFT TOTAL HIP ARTHROPLASTY 08/04/2024 11:07 EDT SN - Irl - Irrigant Normal Saline SN - Irl - Irrigant Sterile Water SN - Irl - Irrigant Normal Saline SN - IrI - Volume In 450 mL SN - IrI - Volume In 500 mL SN - Irl - Additive IRRIGATION CHG 0.05% IRRISEPT 12/ [id number] SN - Irl - Additive BETADINE (POVIDONE IODINE) SOLUT SN - IrI - Volume Out 450 mL SN - IrI - Volume Out 50 mL 08/04/2024 11:06 EDT SN - PP - Body Position Supine Standard Intra-op 08/04/2024 11:06 EDT SN - Assess - LOC Alert, Awake SN - Assess - Orientation Oriented X 3 SN - Assess - Post-op Skin Integrity Intact/Dry 08/04/2024 11:05 EDT Respiratory Rate - Anes 0 br/min br/min Systolic Blood Pressure Non-Invasive 145 mmHg mmHg Diastolic Blood Pressure Non-Invasive 71 mmHg mmHg 08/04/2024 10:52 EDT SN - GCD - ASA Class 3 SN - GCD - Post-operative Diagnosis OTHER OSTEONECROSIS, LEFT FEMUR. UNILATERAL PRIMARY OSTEOARTHRITIS, LEFT HIP SN - GCD - Case Level Level 5 08/04/2024 10:52 EDT SN - Cul - Culture Type No Specimen per Surgeon 08/04/2024 10:51 EDT SN - CAt - Case Attendee SN - CAt - Case Attendee SN - CAt - Case Attendee SN - CAt - Case Attendee SN - CAt - Case Attendee SN - CAt - Case Attendee SN - CAt - Case Attendee SN - CAt - Case Attendee SN - CAt - Case Attendee SN - CAt - Case Attendee SN - CAt - Case Attendee SN - CAt - Case Attendee SN - CAt - Case Attendee SN - CAt - Case Attendee SN - CAt - Role Performed Primary Surgeon SN - CAt - Role Performed CHERRY DIPPER SN - CAt - Role Performed Scrub 1 SN - CAt - Role Performed Clinical Support Tech 1 SN - CAt - Role Performed Bid Writer 1 SN - CAt - Role Performed Physician Indirect Fire Infantryman SN - CAt - Role Performed Allergist/Md 08/04/2024 10:03 EDT SN - Preop - CTm Pt in SDS Room 08/04/2024 8:58 SN - Preop - CTm Pt Ready for OR/Proced 08/04/2024 9:58 08/04/2024 10:03 EDT citric acid-sodium citrate Not Done: Other (Not Done) 08/04/2024 9:53 EDT Primary Pain Intensity 8 celecoxib 400 mg mg oxyCODONE 10 mg mg 08/04/2024 9:52 EDT famotidine 20 mg mg Lactated Ringers Injection 1,000 mL mL 08/04/2024 9:50 EDT Forearm Right 22 gauge Peripheral IV Activity: Insert new site Peripheral IV Dressing Condition: Clean, Dry, Intact Peripheral IV Dressing Activity: Transparent dressing Peripheral IV Line Status/Patency: Continuous infusion Peripheral IV Site Condition: No complications Peripheral IV Number of Attempts: 5 08/04/2024 9:38 EDT ABO/Rh Interp A POS ABSC Interp (Gel) Negative ABSC 08/04/2024 9:11 EDT Height 156 cm Admission Weight 57 kg [place] Body Weight 48.76 kg Admission Body Mass Index 23.42 m2 Temperature Temporal Artery 36.2 DegC Peripheral Pulse Rate 76 bpm Respiratory Rate 12 br/min LOW Systolic Blood Pressure Non-Invasive 123 mmHg Diastolic Blood Pressure Non-Invasive 73 mmHg Primary Pain Location Hip Primary Pain Laterality Left Primary Pain Intensity 8 Primary Pain Quality Stabbing Pain Scale Type 0-10 Pain scale Heart Rhythm Regular Dorsalis Pedis Pulse, Left 2+ Normal Dorsalis Pedis Pulse, Right 2+ Normal Respirations Unlabored Respiratory Pattern Regular All Lobes Breath Sounds Clear Oxygen Therapy Room air Oxygen Saturation 98 % Abdomen Description Non-distended, Soft Bowel Sounds All Quadrants Present Skin Temperature Warm Skin Description [place] Skin Integrity Intact Mucous Membrane Color [place] Neurological Symptoms Patient denies Characteristics of Speech Clear Level of Consciousness Alert Strength All Extremities Strong Affect/Behavior Appropriate, Calm, Cooperative Orientation Oriented x 4 Standard Safety ID band on, Allergy Band on, Call device within reach, Bed in low position, Wheels locked, Non-Slip footwear 08/04/2024 9:08 EDT Designated Person #1 We May Share [facility] Zita [phone] Designated Person #1 Relationship Daughter Privacy Restrictions Requested None Status N/A Sensory Deficits None Sleep Apnea Snore No Sleep Apnea Tired No Sleep Apnea Obstruction No Sleep Apnea Pressure Yes Sleep Apnea BMI No Sleep Apnea Age Yes Sleep Apnea Neck No Sleep Apnea Gender No Sleep Apnea Score 2 Diagnosed With Sleep Apnea No Advanced Directives Yes Advance Directive Type [place] Durable Power [place] Personnel [place] Declaration (Living Will) Advance Directive Location Unable to obtain copy Infectious Disease Symptoms Patient states no symptoms Infectious Disease Recent Exposure No Alcohol and Drug Use No Employee of Institutional Living No Health Care Employee No History of Exposure to TB No History of Positive Chest X-Ray for TB No History of Positive TB Skin Test No Homeless No Known Immunosuppression No Recent Immigrant No Resident of Institutional Living No Bloody Sputum No Fatigue No Fever No Loss of Appetite No Night Sweats No Persistent Cough > 3 Weeks No Weight Loss No Patient Aware Date/Time Of Surgery Yes Pre-Op Patient Education NPO after midnight, No makeup, No jewelry, Responsible Democrat, Aware of surgery location, Pre-op education done, 1 bottle CHG wash with instructions given, Instructed to take ordered medications, Total Joint Replacement/Colorectal Book Given, SSI prevention handout given SN - Preprocedure Comments Spoke with patient, Verbalizes/Nonverbally indicates understanding, Other: carvedilolol Barriers to Learning None evident Teaching Method Explanation Preferred Spoken Language Liberian Preferred Written Language Liberian Teaching Evaluation Verbalizes/Nonverbally indicates understanding Total Joint Book Given Yes Safety Brochure Information Reviewed Unable to complete Shahla Engle Video Viewed No Patient's Current Physicians Patient's Current Physicians Discharge To, Anticipated Home independently Prev Test Positive/Diagnosis w/COVID-19 No Current Quarantine/Isolated any Illness No Any Contact with Sick Animals/Birds No Traveled Anywhere in Last 30 Days No Lost Weight Unintentionally Recently No Eat Poorly Due to Decreased Appetite No Total MST Score 0 N/A Personal Devices, Patient Valuables Dentures, lower, Dentures, upper, Glasses Anesthesia/Transfusions Prior anesthesia Admission Note-Nursing Same Day Patient History 08/04/2024 8:58 EDT Urinary Elimination Voiding, no difficulties IV Present Present Allergies Yes Anesthesia Extension Set Applied Yes Consent Form Signed Yes Patient Dressed In Hospital gown CHG Preoperative Wash/Wipe Night before procedure, Day of procedure Preop Nasal Swab Povidone-Iodine CHG Skin Prep Completed for Eligible Surgery History & Physical Update On Chart Yes History & Physical On Chart Yes Obstructive Sleep Apnea Assess Completed Yes Belongings At Bedside Glasses, Necklace, Pants, Shirt, Shoes, Socks Personal Home Medications Received No home medications were brought in NPO Status Maintained Allergy Band on and Verified Yes Patient ID Band on and Verified Yes Implants Verified Yes Pacemaker/AICD Verified Yes Site Verified by Patient/Family Yes Anesthesia Consent Signed Yes Blood Consent Signed Yes Last Fluid Intake 08/03/2024 22:00 Last Food Intake 08/03/2024 22:00 08/04/2024 8:06 EDT IHC At-Risk Indicator YES 08/04/2024 7:06 EDT IHC At-Risk Indicator YES . Assessment and Plan [place] [employer] Anesthesiologists (ASA) physical status classification: Class III. Anesthetic Preoperative Plan Premedication: intravenous. Anesthetic technique: Spinal. Induction: intravenously. Maintenance airway: 40%fm. Special Monitoring. Postoperative pain management: Per surgeon. Risks discussed. Informed consent: signed by patient. Digitally Signed by LOBITO CRUZ on 08/04/2024 11:30 AM [facility] 08-03-2024 Telephone encounter Note Spoke with Dr. Pedro. I called patient. She was taking apixaban consistently up until last . Held it after that. Surgical clearance provided. We faxed the form to his office. Jaswinder Schmidt DO [facility] 08-03-2024 Miscellaneous Notes Spoke with Dr. Pedro. I called patient. She was taking apixaban consistently up until last . Held it after that. Surgical clearance provided. We faxed the form to his office. Jaswinder Schmidt DO DR. Pedro would like to speak with you today concerning surgical clearance for tomorrow. cell number [phone] please call. Tracy Chavez LPN 's office called again stating that there has been some issue getting the surgery clearance form faxed to them so to have Herb cleared for the surgery tomorrow needs to speak with via a phone call. Please call 's cell phone at [phone] when able tonight so Herb can still have surgery tomorrow. Maribeth Belles Pss Rodrigo called and stated they are needing the surgical clearance SAL because patient is on for surgery tomorrow. I did tell him we were waiting to hear back from the patient but we will get on this as quickly as possible. Maribeth Flores Pss Patient called back. States she NO longer taking that medication. Attempted to contact patient; VM full, unable to leave a message. Lynette Hendricks LPN I received a form for surgical clearance for her. See if she is still taking apixaban. Jaswinder Schmidt DO Spoke with patient. She states he has an appointment this Saturday with Dr. Pedro to discuss. She will call back and schedule with [facility] orth if needed. Patient informed of order/referral. ATC patient but no answer and voicemail is full. Moon Ruggiero TC to pt and discussed, she is agreeable to this. She will continue Eliquis and see a [facility] ortho. PSS please assist pt in scheduling with a [facility] ortho to move forward with hip relplacement surgery as Dr Pedro does not feel comfortable doing at [facility].Jenna Ramesh LPN TC to pt, no answer, no VM set up. Will try again later. Can let her know that the blood work we did the day of the office visit was suggestive that she still may have ongoing blood clots and she had been off the Eliquis. I spoke with Dr. Pedro. He does not feel comfortable doing her surgery at [facility] so he recommended a referral to a [facility] [facility]. We could refer her to see someone at [place] or [facility]. Soonest appointment would be best. Tell her to continue Eliquis for now. Once she is reevaluated for surgery we can devise a plan to bridge her through with anticoagulation. Jaswinder Schmidt DO documented in this encounter [facility] 08-03-[address] Pedro would like to speak with you today concerning surgical clearance for tomorrow. cell number [phone] please call. Tracy Chavez LPN [facility] 08-03-2024 Telephone encounter Note 's office called again stating that there has been some issue getting the surgery clearance form faxed to them so to have Hreb cleared for the surgery tomorrow needs to speak with via a phone call. Please call 's cell phone at [phone] when able tonight so Herb can still have surgery tomorrow. Maribeth Dunlap [facility] 08-03-2024 Telephone encounter Note Rodrigo called and stated they are needing the surgical clearance SAL because patient is on for surgery tomorrow. I did tell him we were waiting to hear back from the patient but we will get on this as quickly as possible. Maribeth Flores Pss [facility] 08-03-2024 Telephone encounter Note Patient called back. States she NO longer taking that medication. [facility] 08-03-2024 Telephone encounter Note Attempted to contact patient; VM full, unable to leave a message. Lynette Hendricks LPN [facility] 08-03-2024 Telephone encounter Note I received a form for surgical clearance for her. See if she is still taking apixaban. Jaswinder Schmidt DO [facility] 07-01-2024 Telephone encounter Note Spoke with patient. She states he has an appointment this Saturday with Dr. Pedro to discuss. She will call back and schedule with [facility] orth if needed. Patient informed of order/referral. [facility] Work Phone: 06-26-2024 Telephone encounter Note ATC patient but no answer and voicemail is full. Moon Ruggiero [facility] 06-26-2024 Telephone encounter Note TC to pt and discussed, she is agreeable to this. She will continue Eliquis and see a [facility] ortho. PSS please assist pt in scheduling with a [facility] ortho to move forward with hip relplacement surgery as Dr Pedro does not feel comfortable doing at [facility].Jenna Ramesh LPN [facility] 06-25-2024 Telephone encounter Note TC to pt, no answer, no VM set up. Will try again later. [facility] 06-25-2024 Telephone encounter Note Can let her know that the blood work we did the day of the office visit was suggestive that she still may have ongoing blood clots and she had been off the Eliquis. I spoke with Dr. Pedro. He does not feel comfortable doing her surgery at [facility] so he recommended a referral to a [facility] orthopedic surgeon. We could refer her to see someone at [place] or [facility]. Soonest appointment would be best. Tell her to continue Eliquis for now. Once she is reevaluated for surgery we can devise a plan to bridge her through with anticoagulation. Jaswinder Schmidt DO [facility] 06-17-2024 Note HNO ID: [id number] Author: JASWINDER SCHMIDT DO Service: ? Author Type: Physician Type: Progress Notes Filed: 06/17/2024 15:54 Note Text: Patient referred by Dr. Elliott for h/o PE. The impression and plan will be communicated by way of the shared electronic record or faxed under separate cover letter. HPI: The patient is a 68-year-old female with a past medical history as outlined below. The patient recalls today that she had been having symptoms of urinary urgency about 3 weeks prior to her hospitalization on 04/23. She did not have dysuria or gross hematuria. She was taken to the ED at [facility] on 04/19/2020 for 4 complaints of left hip pain (originally started when she fell in the shower a few months previous), low-grade fever with Tmax of 100.9 in the preceding few days as well as feeling generalized fatigue and malaise. Family related that she had not been eating or drinking much in the last few days. She underwent a CT scan of the abdomen pelvis which showed a dilated common bile duct. There was intrahepatic ductal dilation. She was noted to have stable bilateral renal cysts. A chest x-ray was reported as having no acute findings. On April 23, she evidently was disoriented and fell in the bathtub when trying to get out of it. She was then taken to the ED at [facility] that night. CTA of the chest on 04/23/2024 demonstrated a filling defect within the right upper lobe anterior segmental branch distally. Main pulmonary artery was noted to be normal in caliber. There was no evidence of right heart strain. No adenopathy was appreciated. There were trace left and small right pleural effusions with adjacent atelectasis and right middle and lower lobe consolidation. Diffuse groundglass opacities appreciated throughout the lungs bilaterally with scattered interlobar septal thickening. She was transferred to [facility]. She was also diagnosed with E. coli bladder infection and septicemia, chronic kidney disease stage III, anemia and hyponatremia that resolved at the time of discharge. She self discontinued apixaban on May 27 or May 28 because she wants to have the hip replacement surgery. Seeing Dr. Maged Pedro at [facility]. Denies cough and shortness of breath presently. Was advised to use a walker but isn't. PAST MEDICAL HISTORY No date: Abdominal pain, unspecified site 1998: Acute gastritis without mention of hemorrhage No date: Discoid lupus erythematosus 1998: Diverticulosis of colon (without mention of hemorrhage) No date: Duodenitis without mention of hemorrhage No date: History of nephrolithiasis No date: Peripheral vascular disease, unspecified (HCC) Comment: Peripheral vascular disease 2012: S/P CABG x 1 No date: S/P coronary artery stent placement No date: Stricture of artery (HCC) Comment: left subclavian No date: Unspecified essential hypertension Comment: Essential hypertension PAST SURGICAL HISTORY 2004: BYP OTH/THN VEIN COMMON-IPSILATERAL CAROTID Comment: Carotid Endarectomy - Left 2012: CABG (1) VEIN GRAFT AND ARTERIAL GRAFT 1972: CHOLECYSTECTOMY 1998: COLONOSCOPY Comment: diverticulosis 03/19/06: COLONOSCOPY FLX DX W/COLLJ SPEC WHEN PFRMD 1997: EGD Comment: Gastritis 03/19/06: EGD TRANSORAL BIOPSY SINGLE/MULTIPLE 1981: PAST SURGICAL HISTORY OF Comment: blocked bowel No date: PAST SURGICAL HISTORY OF Comment: heart stents 08/2000: STENT ARTERIAL EXTREMITY Comment: subclavian 1989: TOTAL ABDOMINAL HYSTERECT W/WO RMVL TUBE OVARY Comment: Hysterectomy, JEANNA ALLERGIES Allergen Reactions Lisinopril Other: See Comments Low blood pressure Altram [Other] Mental Status Change Codeine Current Outpatient Medications Medication Sig acetaminophen (TYLENOL) 325 mg tablet Take 2 tablets by mouth every 6 hours. atorvastatin (LIPITOR) 40 mg tablet Take 1 tablet by mouth once daily. clopidogrel (PLAVIX) 75 mg tablet Take 1 tablet by mouth once daily. carvedilol (COREG) 25 mg tablet Take 25 mg by mouth twice daily with meals. traZODone (DESYREL) 50 mg tablet Take 50 mg by mouth daily at bedtime. eszopiclone (LUNESTA) 3 mg tab Take 3 mg by mouth daily at bedtime. duloxetine (CYMBALTA) 60 mg ORAL CpDR Take 60 mg by mouth once daily. losartan (COZAAR) 100 mg tablet Take 100 mg by mouth once daily. (Patient not taking: Reported on 06/17/2024) No current facility-administered medications for this visit. Social History Tobacco Use Smoking status: Former Current packs/day: 0.00 Average packs/day: 1 pack/day for 30.0 years (30.0 ttl pk-yrs) Types: Cigarettes Start date: 1980 Quit date: 2010 Years since quittin.6 Smokeless tobacco: Never Vaping Use Vaping status: Never Used Substance Use Topics Alcohol use: No Drug use: No Family History Problem Relation Age of Onset Heart Mother Cancer Father floor of mouth Cancer Sister floor of mouth Lung Cancer Sister (more content not included)... [facility] 06-17-2024 History of Present illness Narrative Patient referred by Dr. Elliott for h/o PE. The impression and plan will be communicated by way of the shared electronic record or faxed under separate cover letter. HPI: The patient is a 68-year-old female with a past medical history as outlined below. The patient recalls today that she had been having symptoms of urinary urgency about 3 weeks prior to her hospitalization on 04/23. She did not have dysuria or gross hematuria. She was taken to the ED at [facility] on 04/19/2020 for 4 complaints of left hip pain (originally started when she fell in the shower a few months previous), low-grade fever with Tmax of 100.9 in the preceding few days as well as feeling generalized fatigue and malaise. Family related that she had not been eating or drinking much in the last few days. She underwent a CT scan of the abdomen pelvis which showed a dilated common bile duct. There was intrahepatic ductal dilation. She was noted to have stable bilateral renal cysts. A chest x-ray was reported as having no acute findings. On April 23, she evidently was disoriented and fell in the bathtub when trying to get out of it. She was then taken to the ED at [facility] that night. CTA of the chest on 04/23/2024 demonstrated a filling defect within the right upper lobe anterior segmental branch distally. Main pulmonary artery was noted to be normal in caliber. There was no evidence of right heart strain. No adenopathy was appreciated. There were trace left and small right pleural effusions with adjacent atelectasis and right middle and lower lobe consolidation. Diffuse groundglass opacities appreciated throughout the lungs bilaterally with scattered interlobar septal thickening. She was transferred to [facility]. She was also diagnosed with E. coli bladder infection and septicemia, chronic kidney disease stage III, anemia and hyponatremia that resolved at the time of discharge. She self discontinued apixaban on May 27 or May 28 because she wants to have the hip replacement surgery. Seeing Dr. Maged Pedro at [facility] [place]. Denies cough and shortness of breath presently. Was advised to use a walker but isn't. PAST MEDICAL HISTORY No date: Abdominal pain, unspecified site 1998: Acute gastritis without mention of hemorrhage No date: Discoid lupus erythematosus 1998: Diverticulosis of colon (without mention of hemorrhage) No date: Duodenitis without mention of hemorrhage No date: History of nephrolithiasis No date: Peripheral vascular disease, unspecified (HCC) Comment: Peripheral vascular disease 2012: S/P CABG x 1 No date: S/P coronary artery stent placement No date: Stricture of artery (HCC) Comment: left subclavian No date: Unspecified essential hypertension Comment: Essential hypertension PAST SURGICAL HISTORY 2004: BYP OTH/THN VEIN COMMON-IPSILATERAL CAROTID Comment: Carotid Endarectomy - Left 2012: CABG (1) VEIN GRAFT & ARTERIAL GRAFT 1972: CHOLECYSTECTOMY 1998: COLONOSCOPY Comment: diverticulosis 03/19/06: COLONOSCOPY FLX DX W/COLLJ SPEC WHEN PFRMD 1997: EGD Comment: Gastritis 03/19/06: EGD TRANSORAL BIOPSY SINGLE/MULTIPLE 1980: PAST SURGICAL HISTORY OF Comment: blocked bowel No date: PAST SURGICAL HISTORY OF Comment: heart stents 08/2000: STENT ARTERIAL EXTREMITY Comment: subclavian 1989: TOTAL ABDOMINAL HYSTERECT W/WO RMVL TUBE OVARY Comment: Hysterectomy, JEANNA ALLERGIES Allergen Reactions Lisinopril Other: See Comments Low blood pressure Altram [Other] Mental Status Change Codeine Current Outpatient Medications Medication Sig acetaminophen (TYLENOL) 325 mg tablet Take 2 tablets by mouth every 6 hours. atorvastatin (LIPITOR) 40 mg tablet Take 1 tablet by mouth once daily. clopidogrel (PLAVIX) 75 mg tablet Take 1 tablet by mouth once daily. carvedilol (COREG) 25 mg tablet Take 25 mg by mouth twice daily with meals. traZODone (DESYREL) 50 mg tablet Take 50 mg by mouth daily at bedtime. eszopiclone (LUNESTA) 3 mg tab Take 3 mg by mouth daily at bedtime. duloxetine (CYMBALTA) 60 mg ORAL CpDR Take 60 mg by mouth once daily. losartan (COZAAR) 100 mg tablet Take 100 mg by mouth once daily. (Patient not taking: Reported on 06/17/2024) No current facility-administered medications for this visit. Social History Tobacco Use Smoking status: Former Current packs/day: 0.00 Average packs/day: 1 pack/day for 30.0 years (30.0 ttl pk-yrs) Types: Cigarettes Start date: 1980 Quit date: 2011 Years since quittin.6 Smokeless tobacco: Never Vaping Use Vaping status: Never Used Substance Use Topics Alcohol use: No Drug use: No Family History Problem Relation Age of Onset Heart Mother Cancer Father floor of mouth Cancer Sister floor of mouth Lung Cancer Sister Lung Cancer Sister Heart Sister No Known Problems Sister Depression Brother other (cancer throat) Brother Heart Brother Cancer Brother Heart Paternal Grandmother other (cancer stomach) Paternal Grandfather ROS: Constitutional: No fever. No drenching night sweats. Normal appetite. Neuro: No recent HALL, vertigo, dizziness. No symptoms of sensory neuropathy. HEENT: No recent change in voice, vision or hearing. Resp: No cough, wheeze of hemoptysis. No shortness of breath at rest. CVS: No exertional chest pain, PND or orthopnea. GI: No reflux, n/v, change in bowel habits. No abdominal pain, bloating or distension. No black or bloody stools. : No dysuria or gross hematuria. Endo: No hot flashes. Musculoskeletal: Left hip pain. Derm: Longstanding history of patchy, small erythematous lesions. Heme: No unusual bleeding and unexplained bruising. Psych: Normal mood. PHYSICAL EXAM: Vitals: Blood pressure 127/73, pulse 71, temperature (!) 35.9 C (96.7 F), temperature source Temporal, height 155 cm (5' 1.02 ), weight 57.4 kg (126 lb 8 oz), SpO2 99%. Well-appearing and in no acute distress. EYES: Sclerae are anicteric bilaterally. LYMPHATIC: There is no palpable cervical or supraclavicular adenopathy. RESPIRATORY: Inspiratory breath sounds are of normal intensity in all del real. No rales, wheezes or rhonchi. CARDIOVASCULAR: Rhythm is regular. No murmur. ABDOMEN: The abdomen is nondistended. Extremities: No swelling or edema. SKIN: Widespread small erythematous patches measuring 1 to 1-1/2 cm particularly forearms and legs. MUSCULOSKELETAL: Antalgic gait from left hip pain. .ASSESSMENT/PLAN: (I26.93) Single subsegmental pulmonary embolism without acute cor pulmonale (HCC) (primary encounter diagnosis) Assessment: -The patient is a 68-year-old female, former smoker with history of coronary artery disease and peripheral vascular disease who was hospitalized in April for E. coli sepsis, radiographic findings of multifocal pneumonia/pneumonitis and a PE in the anterior segmental branch of the distal right upper lobe pulmonary artery. -Provoked PE--she was in [facility] ED with fever 4 days prior to diagnosis PE. -Discussed with her today that typically we would recommend 3 to 6 months of anticoagulation for a provoked pulmonary embolism. Unfortunately she self discontinued apixaban about 3 weeks ago and has continued Plavix. No respiratory symptoms currently. Plan: -Check D-dimer and lupus anticoagulant panel today (history of discoid lupus). -Restart apixaban today. -Will discuss timing of surgery with Dr. Pedro. I spent a total of 60 minutes on the date of the service which included preparing to see the patient, [id number] patient care, completing clinical documentation, obtaining and/or reviewing separately obtained history, performing a medically appropriate examination, counseling and educating the patient/family/caregiver, ordering medications, tests, or procedures, communicating with other HCPs (not separately reported), and communicating results to the patient/family/caregiver. Jaswinder Schmidt DO documented in this encounter [facility] 05-17-2024 Note . MICRO - Microbiology PROCEDURE: Urine Culture [*1] SOURCE: Urine, Clean Catch BODY SITE: COLLECTED DATE/TIME: 05/16/2024 09:17 EDT RECEIVED DATE/TIME: 05/16/2024 15:47 EDT START DATE/TIME: 05/16/2024 15:47 EDT FREE TEXT SOURCE: FINAL REPORTS Final Report [] Verified Date/Time/Personnel: 05/17/2024 14:17 EDT 10,000 - 50,000 cfu/ml Mixed growth consistent with normal urogenital katelynn. Performing Locations *1: This test was performed at: [address], [facility] , [facility] ([place]) 05-06-2024 Note ORIGINAL PROCEDURE: LEFT HIP ASPIRATION UNDER FLUOROSCOPY CLINICAL STATEMENT: Left hip pain hip pain, known joint effusion noted on recent CT abdomen and pelvis SENIOR CHEMICAL PROCESS ENGINEER: Samantha Gil PA-C ANESTHESIA: Local ASPIRATE: 20 mL cloudy yellow synovial fluid FLUOROSCOPY: 0.2 minutes AIR KERMA DOSE: 1 mGy The procedure, risks, and alternatives, were discussed and all questions were answered. Written informed consent obtained. Accompanying paperwork was verified for accuracy. Directed history and physical exam performed prior to the procedure. Medication reconciliation performed by nursing personnel. Procedure was performed using a cap, sterile gloves, sterile towels, hand hygiene and chlorhexidine for cutaneous antisepsis. The patient was positioned supine on the table and prepped and draped in usual sterile fashion. A critical pause was performed with assisting personnel just prior to the procedure with the patient's identity confirmed using 2 identifiers, confirming site and side. 2% lidocaine was injected into the puncture site for local anesthesia. A 22-gauge spinal needle was then used to access the joint cavity by anterior approach. Once access needle was in the appropriate position, synovial fluid was aspirated from the joint. This was documented with fluoroscopic image. Synovial fluid sample was submitted to lab for analysis. COMPLICATIONS: None EBL: Minimal PATIENT CONDITION: Stable, unchanged IMPRESSION: Successful fluoroscopic guided left hip aspiration. The procedure was performed by Samantha Gil PA-C. I concur with the contents of her report. Interpreted by: Love Cutler MD Preliminary Report By: Samantha Gil PA-C Electronically signed By Love Cutler MD Dictated Date: 04/29/2024 3:46:55 PM Prelim Date: 04/29/2024 3:49:03 PM Sign Date: 05/06/2024 3:01:40 PM Ordering Provider: [facility] 05-06-2024 Note . MICRO - Microbiology PROCEDURE: Culture Body Fluid with Gram Stain [O1 *1] SOURCE: Body Fluid, BODY SITE: Miscellaneous COLLECTED DATE/TIME: 04/29/2024 13:44 EDT RECEIVED DATE/TIME: 04/29/2024 14:04 EDT START DATE/TIME: 04/29/2024 14:04 EDT FREE TEXT SOURCE: synovial fluid left hip FINAL REPORTS Final Report [] Verified Date/Time/Personnel: 05/06/2024 07:29 EDT No aerobes or anaerobes isolated at 7 days. PRELIMINARY REPORTS Preliminary Report [] Verified Date/Time/Personnel: 04/30/2024 09:49 EDT No growth to date Preliminary Report [] Verified Date/Time/Personnel: 04/29/2024 14:59 EDT Culture has been received in lab and is no growth to date. Routine cultures are held for 5 days. STAINS GS [] Verified Date/Time/Personnel: 04/29/2024 14:52 EDT Unsedimented No organisms seen. Order Comments O1: Culture Body Fluid with Gram Stain (Body Fluid Culture with Gram Stain) Left hip synovial fluid IR aspiration Performing Locations *1: This test was performed at: [facility] [place], [address] [place] [address], [id number] , [facility] ([place]) 04-30-2024 Hospital Discharge instructions Patient Education 04/30/2024 12:34:47 Pulmonary Embolism Pulmonary Embolism A pulmonary embolism (PE) is a sudden blockage or decrease of blood flow in one or both lungs. Most blockages come from a blood clot that forms in the vein of a lower leg, thigh, or arm (deep vein thrombosis, DVT) and travels to the lungs. A clot is blood that has thickened into a gel or solid. PE is a dangerous and life-threatening condition that needs to be treated right away. What are the causes? This condition is usually caused by a blood clot that forms in a vein and moves to the lungs. In rare cases, it may be caused by air, fat, part of a tumor, or other tissue that moves through the veins and into the lungs. What increases the risk? The following factors may make you more likely to develop this condition: Experiencing a traumatic injury, such as breaking a hip or leg. Having: ?A spinal cord injury. ?Orthopedic surgery, especially hip or knee replacement. ?Any major surgery. ?A stroke. ?DVT. ?Blood clots or blood clotting disease. ?Long-term (chronic) lung or heart disease. ?Cancer treated with chemotherapy. ?A central venous catheter. Taking medicines that contain estrogen. These include control pills and hormone replacement therapy. Being: ?. ?In the period of time after your baby is delivered (). ?Older than age 60. ?Overweight. ?A smoker, especially if you have other risks. What are the signs or symptoms? Symptoms of this condition usually start suddenly and include: Shortness of breath during activity or at rest. Coughing, coughing up blood, or coughing up blood-tinged mucus. Chest pain that is often worse with deep breaths. Rapid or irregular heartbeat. Feeling light-headed or dizzy. Fainting. Feeling anxious. Fever. Sweating. Pain and swelling in a leg. This is a symptom of DVT, which can lead to PE. How is this diagnosed? This condition may be diagnosed based on: Your medical history. A physical exam. Blood tests. CT pulmonary angiogram. This test checks blood flow in and around your lungs. Ventilation-perfusion scan, also called a lung VQ scan. This test measures air flow and blood flow to the lungs. An ultrasound of the legs. How is this treated? Treatment for this condition depends on many factors, such as the cause of your PE, your risk for bleeding or developing more clots, and other medical conditions you have. Treatment aims to remove, dissolve, or stop blood clots from forming or growing larger. Treatment may include: Medicines, such as: ?Blood thinning medicines (anticoagulants) to stop clots from forming. ?Medicines that dissolve clots (thrombolytics). Procedures, such as: ?Using a flexible tube to remove a blood clot (embolectomy) or to deliver medicine to destroy it (catheter-directed thrombolysis). ?Inserting a filter into a large vein that carries blood to the heart (inferior vena cava). This filter (vena cava filter) catches blood clots before they reach the lungs. ?Surgery to remove the clot (surgical embolectomy). This is rare. You may need a combination of immediate, long-term (up to 3 months after diagnosis), and extended (more than 3 months after diagnosis) treatments. Your treatment may continue for several months (maintenance therapy). You and your health care provider will work together to choose the treatment program that is best for you. Follow these instructions at home: Medicines Take [id number] and prescription medicines only as told by your health care provider. If you are taking an anticoagulant medicine: ?Take the medicine every day at the same time each day. ?Understand what foods and drugs interact with your medicine. ?Understand the side effects of this medicine, including excessive bruising or bleeding. Ask your health care provider or pharmacist about other side effects. General instructions Wear a medical alert bracelet or carry a medical alert card that says you have had a PE and lists what medicines you take. Ask your health care provider when you may return to your normal activities. Avoid sitting or lying for a long time without moving. Maintain a healthy weight. Ask your health care provider what weight is healthy for you. Do not use any products that contain nicotine or tobacco, such as cigarettes, e-cigarettes, and chewing tobacco. If you need help quitting, ask your health care provider. Talk with your health care provider about any travel plans. It is important to make sure that you are still able to take your medicine while on trips. Keep all follow-up visits as told by your health care provider. This is important. Contact a health care provider if: You missed a dose of your blood thinner medicine. Get help right away if: You have: ?New or increased pain, swelling, warmth, or redness in an arm or leg. ?Numbness or tingling in an arm or leg. ?Shortness of breath during activity or at rest. ?A fever. ?Chest pain. ?A rapid or irregular heartbeat. ?A severe headache. ?Vision changes. ?A serious fall or accident, or you hit your head. ?Stomach (abdominal) pain. ?Blood in your vomit, stool, or urine. ?A cut that will not stop bleeding. You cough up blood. You feel light-headed or dizzy. You cannot move your arms or legs. You are confused or have memory loss. These symptoms may represent a serious problem that is an emergency. Do not wait to see if the symptoms will go away. Get medical help right away. Call your local emergency services (871 in the [place] Do not drive yourself to the hospital. Summary A pulmonary embolism (PE) is a sudden blockage or decrease of blood flow in one or both lungs. PE is a dangerous and life-threatening condition that needs to be treated right away. Treatments for this condition usually include medicines to thin your blood (anticoagulants) or medicines to break apart blood clots (thrombolytics). If you are given blood thinners, it is important to take the medicine every day at the same time each day. Understand what foods and drugs interact with any medicines that you are taking. If you have signs of PE or DVT, call your local emergency services (911 in the [place] This information is not intended to replace advice given to you by your health care provider. Make sure you discuss any questions you have with your health care provider. Document Released: 10/04/2001 Document Revised: 07/15/2019 Document Reviewed: 07/15/2019 [employer] Patient Education 2020 [employer]. Follow Up Care 04/23/2024 23:53:31 With:JAIDEN ABDUL BA, MD, Infectious Disease, Infectious Disease Group Address: [facility] [id number] [place] [address]- [phone] When:Within 2 Week(s) With:KAYDEN SANDERS DO, Orthopedic Address: [address] [place] [address] [phone] When:Within 3 Week(s) With:LUIS ELLIOTT Address: [address] [place] [address]- Business (1) When:1-2 days Comments:Please call the office to schedule a hospital follow-up appointment. With:SHWETHA WATTERS MD, Orthopedic Address: [address] [facility], [place] [address]- [phone] When:Within 2 Week(s) Comments:for L hip AVN With:[facility] Address:Unknown When: Unknown Comments:They will call you before they come out. Call [phone] with any questions or concerns. Home Physical and occupational therapy will resume and an RN has been added. [facility] 04-30-2024 Discharge summary Date of Service 04/30/2024 Discharge Diagnosis 1. Acute hypoxic respiratory failure secondary to acute PE, improving. 2. Acute pulmonary emboli. 3. E. coli UTI. 4. Pyelonephritis. 5. Complex right renal cyst. 6. Bacteremia with E. coli. 7. Chronic kidney disease stage III. 8. Acute over chronic anemia. 9. Acute hyponatremia, resolved. 10. Left hip osteoarthritis with left hip effusion. 11. Sigmoid diverticulosis. Tubulo-interstitial nephritis, not specified as acute or chronic (N12 - ICD-10-CM) Other pulmonary embolism without acute cor pulmonale (I26.99 - ICD-10-CM) Pneumonia, unspecified organism (J18.9 - ICD-10-CM) Acute respiratory failure with hypoxia (J96.01 - ICD-10-CM) Bacteremia (R78.81 - ICD-10-CM) Urinary tract infection, site not specified (N39.0 - ICD-10-CM) Hypo-osmolality and hyponatremia (E87.1 - ICD-10-CM) Acidosis, unspecified (E87.20 - ICD-10-CM) Acute kidney failure, unspecified (N17.9 - ICD-10-CM) Presence of aortocoronary bypass graft (Z95.1 - ICD-10-CM) Presence of coronary angioplasty implant and graft (Z95.5 - ICD-10-CM) Anemia in chronic kidney disease (D63.1 - ICD-10-CM) Depression, unspecified (F32.A - ICD-10-CM) Atherosclerotic heart disease of kashia coronary artery without angina pectoris (I25.10 - ICD-10-CM) Chronic kidney disease, stage 3 unspecified (N18.30 - ICD-10-CM) Dehydration (E86.0 - ICD-10-CM) Hypertensive chronic kidney disease with stage 1 through stage 4 chronic kidney disease, or unspecified chronic kidney disease (I12.9 - ICD-10-CM) Acute rhinosinusitis (J01.90 - ICD-10-CM) B12 deficiency anemia (D51.9 - ICD-10-CM) Bilateral serous otitis media (H65.93 - ICD-10-CM) Depression (F32.9 - ICD-10-CM) Insomnia (G47.00 - ICD-10-CM) Insomnia (G47.00 - ICD-10-CM) Additional Orders: Other status: BMP,04/30/24 5:00:00 EDT, Next AM Draw (one day only), Blood, Once, Preferred Lab: [facility], Stop date 04/30/24 5:00:00 EDT(Complete) Other status: CBC,04/30/24 5:00:00 EDT, Next AM Draw (one day only), Blood, Once, Preferred Lab: [facility], Stop date 04/30/24 5:00:00 EDT(Complete) Other status: Consult Home Health - OT,04/30/24 11:59:00 EDT, Home Therapy Order: OT Eval & Treat, Home Therapy Instruction: Full weight bearing, Reason: General Debility(Complete) Other status: Consult Home Health - PT,04/30/24 11:59:00 EDT, Home Therapy Order: PT Eval & Treat, Reason: General Debility, Home Therapy Instruction: Full weight bearing(Complete) Other status: Consult Home Health - RN,04/30/24 11:59:00 EDT, Reason: Disease management(Complete) Ordered: Discharge,04/30/24 11:59:00 EDT, Discharged to: Home Ordered: Discharge Activity,Resume your pre-hospitalization activity, 04/30/24 11:59:00 EDT Ordered: Discharge Diet,Type of Diet: Regular, 04/30/24 11:59:00 EDT Ordered: Eliquis 5 mg oral tablet,Dose : 5 mg = 1 tab(s), Oral, BID, # 60 tab(s), 0 Refill(s), Pharmacy: [facility]/pharmacy #[id number], 155, cm, 04/24/24 4:14:00 EDT, Height, 65.6, kg, 04/24/24 4:14:00 EDT, Dosing Weight Ordered: cefdinir 300 mg oral capsule,Dose : 300 mg = 1 cap(s), Oral, q12h, X 14 day(s), # 28 cap(s), 0 Refill(s), 05/14/24 11:48:00 EDT, Pharmacy: [facility]/pharmacy #[id number], 155, cm, 04/24/24 4:14:00 EDT, Height, 65.6, kg, 04/24/24 4:14:00 EDT, Dosing Weight Hospital Course 68-year-old female with multiple medical problems listed above presented to the hospital with shortness of breath was found to have acute pulmonary emboli, started on heparin drip then transition to Eliquis, patient was found to have E. coli bacteremia and UTI, was started on IV antibiotics, infectious disease team is consulted, recommended to continue with IV Rocephin, CAT scan of abdomen pelvis showed complex right renal cyst, urology team evaluated the patient, and also CAT scan showed left hip effusion, patient underwent IR aspiration of the joint on 2023, fluid analysis was not concerning for any septic joint etiology according to the orthopedic team who recommended to follow-up as an outpatient, and they signed off. Physical therapy and Occupational Therapy evaluated the patient, they recommended home physical therapy and Occupational Therapy. Patient was examined and evaluated by me today, she was awake alert and oriented x 3, denying any chest pain shortness of breath cough fever chills, denied any abdominal pain nausea or vomiting, no headache lightheadedness or dizziness, patient was tolerating diet fairly well, patient will be discharged home today, the discharge antibiotic plan was discussed with infectious disease team who recommended cefdinir for 2 weeks, and close follow-up as an outpatient. Allergies Ultram confusion codeine nausea lisinopril Cough traMADol Unknown Procedures Left hip joint effusion aspiration on 04/29/2024 Consults Consult to Physician - Ordered -- 04/24/24 4:12:00 EDT, ALAN JESUS MD, Routine, nstemi, t wave inversion on ekg/elevated troponin Consult to Physician - Ordered -- 04/25/24 8:10:00 EDT, ROXY MAYORGA MD, Routine, avascular necrosis of the hip Consult to Physician - Ordered -- 04/26/24 8:53:00 EDT, CHRISTIAN YANG MD, Routine, uti, bactermia Consult to Physician - Ordered -- 04/28/24 13:43:00 EDT, ROXY MAYORGA MD, Routine, ct scan with concern of hip septic joint Imaging Results and Diagnostics Please see Cerner Objective Vitals and Measurements T: 36.6 C (Oral) TMIN: 36.2 C (Axillary) TMAX: 36.7 C (Oral) HR: 81 RR: 18 BP: 162/82 SpO2: 97% Weight Dosing Weight: 65.6 kg (04/24/24) Head: atraumatic normocephalic Neck: supple no JVD Lungs: clear to auscultation bilaterally, no wheezes no accessory muscle use. Heart: S1-S2 regular rate and rhythm, no murmurs Abdomen: soft nontender nondistended, bowel sounds are present all 4 quadrants Lower extremities: no cyanosis, no chronic skin changes, pulse palpable +1 bilaterally, no edema Skin: showed no rash Neurological: patient is awake alert and oriented 3, no focal neurological deficit. Pending Labs and Studies None Code Status Code Status - Ordered -- 04/24/24 4:05:00 EDT, Full Code, Constant Order Admission Date 04/24/2024 Discharge Date 04/30/2024 Medications New Prescription apixaban (Eliquis 5 mg oral tablet)1 tab(s) by mouth two (2) times a day. Refills: 0. cefdinir (cefdinir 300 mg oral capsule)1 cap by mouth every 12 hours for 14 Days. Refills: 0. Unchanged acetaminophen (Tylenol Extra Strength 500 mg oral tablet)2 tab(s) by mouth four (4) times a day as needed for pain. aspirin (aspirin 81 mg oral tablet, chewable)1 tab(s) by mouth every day. Refills: 11. atorvastatin (atorvastatin 40 mg oral tablet)1 tab(s) by mouth daily at bedtime. Refills: 3. calcium carbonate (calcium (as carbonate) 600 mg oral tablet)2 tab(s) by mouth once a day as needed for control of stomach acid. carvedilol (carvedilol 12.5 mg oral tablet)1 tab(s) by mouth twice daily with meals. Refills: 0. cholecalciferol (Vitamin D3 125 mcg (5000 intl units) oral capsule)1 cap by mouth once a day. clobetasol topical (clobetasol 0.05% topical cream)1 application Topical two (2) times a day. for two weeks then slowly taper down to 1-2 times per week. Refills: 3. clopidogrel (clopidogrel 75 mg oral tablet)1 tab(s) by mouth once a day. Refills: 3. cyanocobalamin (Vitamin B12 500 mcg oral tablet)2 tab(s) by mouth once a day for 90 Days. Refills: 3. DULoxetine (DULoxetine 60 mg oral delayed release capsule)1 cap by mouth once a day. Refills: 3. eszopiclone (eszopiclone 3 mg oral tablet)1 tab(s) by mouth daily at bedtime for 90 Days. OARRS reviewed 02/19, may fill 02/25. Refills: 0. fluticasone nasal (fluticasone 50 mcg/inh NASAL spray)2 spray(s) each nostril once a day for 30 Days. shake well before using. Refills: 0. losartan (losartan 100 mg oral tablet)1/2 tab(s) Oral Daily. ondansetron (ondansetron 4 mg oral tablet, disintegrating)1 tab(s) by mouth every 6 hours as needed as needed for nausea/vomiting for 3 Days. Refills: 0. polyethylene glycol 3350 (MiraLax oral powder for reconstitution)17 gram(s) by mouth once a day. traZODone (traZODone 50 mg oral tablet)1 tab(s) by mouth daily at bedtime. Refills: 3. Follow Up Follow Up with JAIDEN ABDUL BA, MD, Infectious Disease, Infectious Disease Group When:In 2 weeks Where:[facility] [id number] [place] [address]- [phone] Follow Up with KAYDEN SANDERS DO, Orthopedic When:In 3 weeks Where:[address] [facility], [place] [address]- [phone] Follow Up with LUIS ELLIOTT When:Within 1-2 days Where:[address] [place] [address]- Business (1) Additional Information: Please call the office to schedule a hospital follow-up appointment. Follow Up with SHWETHA WATTERS MD, Orthopedic When:In 2 weeks Where:[address] [facility], [place] [address]- [phone] Additional Information: for L hip AVN Follow Up with [facility] Additional Information: They will call you before they come out. Call [phone] with any questions or concerns. Home Physical and occupational therapy will resume and an RN has been added. Follow Up Appointments No qualifying data available. Follow Up Labs/Studies Discharge Labs No Follow-up Labs Discharge Studies No Follow-up Studies Discharge Diet Discharge Diet - Ordered -- Type of Diet: Regular, 04/30/24 11:59:00 EDT Discharge Activity Discharge Activity - Ordered -- Resume your pre-hospitalization activity, 04/30/24 11:59:00 EDT Condition on Discharge stable Readmission Risk/Palliative Score No qualifying data available. Discharge Disposition home Time Spent 32 min Digitally Signed by RYAN CAMPBELL MD on 04/30/2024 02:09 PM [facility] 04-30-2024 Note Discharge Instructions Thank you for allowing [facility] to assist you with your healthcare needs. The following is important discharge information regarding your hospital visit. 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-[facility] [address] [place] [phone] Confirmed CV OV 06/15/2024 03:00 PM EDT VELMA REYNOLDS [facility] Confirmed Follow Up Appointments Follow Up with JAIDEN ABUDL BA, MD, Infectious Disease, Infectious Disease Group When:In 2 weeks Where:[facility] [id number] [place] [address]- [phone] Follow Up with KAYDEN SANDERS DO, Orthopedic When:In 3 weeks Where:[address] [facility], [place] [address]- [phone] Follow Up with LUIS ELLIOTT When:Within 1-2 days Where:[address] [place] [phone]- Business (1) Additional Information: Please call the office to schedule a hospital follow-up appointment. Follow Up with SHWETHA WATTERS MD, Orthopedic When:In 2 weeks Where:[address] [facility], [place] [address]- [phone] Additional Information: for L hip AVN Follow Up with [facility] Additional Information: They will call you before they come out. Call [phone] with any questions or concerns. Home Physical and occupational therapy will resume and an RN has been added. The Following Activity and Diet Have Been Ordered for You Discharge Activity - Ordered -- Resume your pre-hospitalization activity, 04/30/24 11:59:00 EDT Discharge Diet - Ordered -- Type of Diet: Regular, 04/30/24 11:59:00 EDT The Following Equipment Has Been Ordered for You No qualifying data available. The Following Treatments Have Been Ordered for You Discharge Labs No qualifying data available. Discharge Radiology No qualifying data available. Other Therapies No qualifying data available. Post Acute Orders No qualifying data available. Someone Will Contact You Regarding These Home Health Referrals Consult Home Health - OT - Ordered -- 04/30/24 11:59:00 EDT, Home Therapy Order: OT Eval & Treat, Home Therapy Instruction: Full weight bearing, Reason: General Debility Consult Home Health - PT - Ordered -- 04/30/24 11:59:00 EDT, Home Therapy Order: PT Eval & Treat, Reason: General Debility, Home Therapy Instruction: Full weight bearing Consult Home Health - RN - Ordered -- 04/30/24 11:59:00 EDT, Reason: Disease management Allergies Ultram confusion codeine nausea lisinopril Cough traMADol Unknown Medications Please ask your primary doctor or pharmacist before taking any other medication not listed, including over the counter drugs, herbal medications, vitamins and or supplements as they may interact with your home medications. What How Much When Why Instructions Last Dose New apixaban (Eliquis 5 mg oral tablet) 1 tab(s) by mouth Two (2) times a day Pickup at [facility]/pharmacy #[id number] New cefdinir (cefdinir 300 mg oral capsule) 1 cap by mouth Every 12 hours Duration: 14 Days Pickup at [facility]/pharmacy #[id number] Unchanged acetaminophen (Tylenol Extra Strength 500 mg oral tablet) 2 tab(s) by mouth Four (4) times a day as needed for for pain Unchanged aspirin (aspirin 81 mg oral tablet, chewable) 1 tab(s) by mouth Every day Unchanged atorvastatin (atorvastatin 40 mg oral tablet) 1 tab(s) by mouth Daily at bedtime Unchanged calcium carbonate (calcium (as carbonate) 600 mg oral tablet) 2 tab(s) by mouth Once a day as needed for for control of stomach acid Unchanged carvedilol (carvedilol 12.5 mg oral tablet) 1 tab(s) by mouth Twice daily with meals Unchanged cholecalciferol (Vitamin D3 125 mcg (5000 intl units) oral capsule) 1 cap by mouth Once a day Unchanged clobetasol topical (clobetasol 0.05% topical cream) 1 application Topical Two (2) times a day Lichen sclerosus for two weeks then slowly taper down to 1-2 times per week Unchanged clopidogrel (clopidogrel 75 mg oral tablet) 1 tab(s) by mouth Once a day Unchanged cyanocobalamin (Vitamin B12 500 mcg oral tablet) 2 tab(s) by mouth Once a day B12 deficiency anemia Duration: 90 Days Unchanged DULoxetine (DULoxetine 60 mg oral delayed release capsule) 1 cap by mouth Once a day Depression Unchanged eszopiclone (eszopiclone 3 mg oral tablet) 1 tab(s) by mouth Daily at bedtime Insomnia Duration: 90 Days OARRS reviewed 02/19, may fill 02/25 Unchanged fluticasone nasal (fluticasone 50 mcg/ inh NASAL spray) 2 spray(s) each nostril Once a day Acute rhinosinusitis Bilateral serous otitis media Duration: 30 Days shake well before using Unchanged losartan (losartan 100 mg oral tablet) See instructions 10/22 tab(s) Oral Daily Unchanged ondansetron (ondansetron 4 mg oral tablet, disintegrating) 1 tab(s) by mouth Every 6 hours as needed for as needed for nausea/vomiting Nausea with vomiting Duration: 3 Days Unchanged polyethylene glycol 3350 (MiraLax oral powder for reconstitution) 17 gram(s) by mouth Once a day Unchanged traZODone (traZODone 50 mg oral tablet) 1 tab(s) by mouth Daily at bedtime Insomnia Pharmacy Information [facility]/pharmacy #[id number]: [address], [place] [phone] Please take this list to your next doctor s visit. Bring all medications you take, including over the counter medications, herbals and other supplements with you to your doctor s visit. Patients and families are reminded to discard old lists and to update any records with all medication providers or retail pharmacies. Medication Leaflets cefdinir ( mark carter) What is the most important information I should know about cefdinir? Do not take this medicine if you are allergic to cefdinir, or to similar antibiotics, such as Ceftin, Cefzil, Keflex, and others. What is cefdinir? Cefdinir is a cephalosporin (SEF a low spor in) antibiotic that is used to treat many different types of infections caused by bacteria. Cefdinir may also be used for purposes not listed in this medication guide. What should I discuss with my healthcare provider before taking cefdinir? You should not take this medicine if you are allergic to cefdinir or any other cephalosporin antibiotic (cefadroxil, cefprozil, cefazolin, cefalexin, Keflex, and others). Tell your doctor if you have ever had: kidney disease (or if you are on dialysis); intestinal problems, such as colitis; or an allergy to any drugs (especially penicillins). Cefdinir liquid contains sucrose. Talk to your doctor before using this form of cefdinir if you have diabetes. Tell your doctor if you are or . How should I take cefdinir? Follow all directions on your prescription label and read all medicine guides or instruction sheets. Use the medicine exactly as directed. Shake the oral suspension (liquid) before you measure a dose. Use the dosing syringe provided, or use a medicine dose-measuring device (not a kitchen spoon). You may take cefdinir with or without food. Use this medicine for the full prescribed length of time, even if your symptoms quickly improve. Skipping doses can increase your risk of infection that is resistant to medication. Cefdinir will not treat a viral infection such as the flu or a common cold. Cefdinir can affect the results of certain medical tests. Tell any doctor who treats you that you are using cefdinir. Store at room temperature away from moisture and heat. Throw away any unused cefdinir liquid that is older than 10 days. What happens if I miss a dose? Take the medicine as soon as you can, but skip the missed dose if it is almost time for your next dose. Do not take two doses at one time. What happens if I overdose? Seek emergency medical attention or call the Poison Help line at . Overdose symptoms may include nausea, vomiting, stomach pain, diarrhea, or a seizure. What should I avoid while taking cefdinir? Avoid using antacids or mineral supplements that contain aluminum, magnesium, or iron within 2 hours before or after taking cefdinir. Antacids or iron can make it harder for your body to absorb cefdinir. This does not include baby formula fortified with iron. Antibiotic medicines can cause diarrhea, which may be a sign of a new infection. If you have diarrhea that is watery or bloody, call your doctor before using anti-diarrhea medicine. What are the possible side effects of cefdinir? Get emergency medical help if you have signs of an allergic reaction (hives, difficult breathing, swelling in your face or throat) or a severe skin reaction (fever, sore throat, burning eyes, skin pain, red or purple skin rash with blistering and peeling). Call your doctor at once if you have: severe stomach pain, diarrhea that is watery or bloody (even if it occurs months after your last dose); fever, chills, body aches, flu symptoms; pale skin, easy bruising, unusual bleeding; seizure (convulsions); fever, weakness, confusion; dark colored urine, jaundice (yellowing of the skin or eyes); or kidney problems--little or no urination, swelling in your feet or ankles, feeling tired or short of breath. Common side effects may include: nausea, vomiting, stomach pain, diarrhea; vaginal itching or discharge; headache; or rash (including diaper rash in an taking liquid cefdinir. This is not a complete list of side effects and others may occur. Call your doctor for medical advice about side effects. You may report side effects to FDA at 8-842-SKJ-3848. What other drugs will affect cefdinir? Tell your doctor about all your other medicines, especially: probenecid; or vitamin or mineral supplements that contain iron. This list is not complete. Other drugs may affect cefdinir, including prescription and kalo-xvt-cgcyxci medicines, vitamins, and herbal products. Not all possible drug interactions are listed here. Where can I get more information? Your pharmacist can provide more information about cefdinir. Remember, keep this and all other medicines out of the reach of children, never share your medicines with others, and use this medication only for the indication prescribed. Every effort has been made to ensure that the information provided by [employer] ('[employer]') is accurate, up-to-date, and complete, but no guarantee is made to that effect. Drug information contained herein may be time sensitive. [employer] information has been compiled for use by healthcare practitioners and consumers in the [place] and therefore [employer] does not warrant that uses outside of the [place] are appropriate, unless specifically indicated otherwise. [employer] drug information does not endorse drugs, diagnose patients or recommend therapy. [employer] drug information is an informational resource designed to assist licensed healthcare practitioners in caring for their patients and/or to serve consumers viewing this service as a supplement to, and not a substitute for, the expertise, skill, knowledge and judgment of healthcare practitioners. The absence of a warning for a given drug or drug combination in no way should be construed to indicate that the drug or drug combination is safe, effective or appropriate for any given patient. [employer] does not assume any responsibility for any aspect of healthcare administered with the aid of information [employer] provides. The information contained herein is not intended to cover all possible uses, directions, precautions, warnings, drug interactions, allergic reactions, or adverse effects. If you have questions about the drugs you are taking, check with your doctor, nurse or pharmacist. Copyright 0922-5537 [employer]. Version: 9.01. Revision Date: 05/24/2023. apixaban (a PIX a ban) Andrew What is the most important information I should know about apixaban? Apixaban increases your risk of severe or fatal bleeding, especially if you take certain medicines at the same time (including some cdcy-dft-ojioobx medicines). Tell your doctor about all medicines you have recently used. Call your doctor at once if you have signs of bleeding such as: easy bruising, unusual bleeding, unexpected pain or swelling, feeling very weak or dizzy, bleeding gums, nosebleeds, heavy menstrual bleeding, blood in your urine or stools, coughing up blood or vomit that looks like coffee grounds, or any bleeding that will not stop. Apixaban can cause a very serious blood clot around your spinal cord that can lead to long-term or permanent paralysis. This type of blood clot can occur during a spinal tap or spinal anesthesia (epidural), especially if you have a genetic spinal defect, if you use a spinal catheter, if you've had spinal surgery or repeated spinal taps, or if you use other drugs that can affect blood clotting. Get emergency medical help if you have symptoms of a spinal cord blood clot such as tingling, numbness, or muscle weakness especially in your legs and feet. Do not stop taking apixaban unless your doctor tells you to. Stopping suddenly can increase your risk of blood clot or stroke. What is apixaban? Apixaban is used to lower the risk of stroke caused by a blood clot in people with a heart rhythm disorder called atrial fibrillation. Apixaban is also used after hip or knee replacement surgery to prevent a type of blood clot called deep vein thrombosis (DVT), which can lead to blood clots in the lungs (pulmonary embolism). Apixaban is also used to treat DVT or pulmonary embolism (PE), and to lower your risk of having a repeat DVT or PE. Apixaban may also be used for purposes not listed in this medication guide. What should I discuss with my healthcare provider before taking apixaban? You should not take apixaban if you are allergic to it, or if you have active bleeding from a surgery, injury, or other cause. Apixaban may cause you to bleed more easily, especially if you have a bleeding disorder that is inherited or caused by disease. Tell your doctor if you have an artificial heart valve, or if you have ever had: bleeding problems; antiphospholipid syndrome, especially if you have a triple positive antibody test; or liver or kidney disease. Apixaban can cause a very serious blood clot around your spinal cord if you undergo a spinal tap or receive spinal anesthesia (epidural). This type of blood clot could cause long-term paralysis, and may be more likely to occur if: you have a spinal catheter in place or if a catheter has been recently removed; you have a history of spinal surgery or repeated spinal taps; you have recently had a spinal tap or epidural anesthesia; you take aspirin or other NSAIDs (nonsteroidal anti-inflammatory drugs)--ibuprofen (Advil, Motrin), naproxen (Aleve), diclofenac, indomethacin, meloxicam, and others; or you are using other medicines to treat or prevent blood clots. Taking apixaban may increase the risk of bleeding while you are or during your delivery. Tell your doctor if you are or plan to become . Do not breastfeed. How should I take apixaban? Follow all directions on your prescription label and read all medication guides or instruction sheets. Your doctor may occasionally change your dose. Use the medicine exactly as directed. You may take apixaban with or without food. If you cannot swallow a tablet whole, crush it and mix with water, apple juice, or applesauce. Swallow the mixture right away without chewing. A crushed tablet mixture may also be given through a nasogastric (NG) feeding tube. Read and carefully follow any Instructions for Use provided with your medicine. Apixaban can make it easier for you to bleed, even from a minor injury. Seek medical attention if you have bleeding that will not stop. Tell your doctor if you have a planned surgery or dental work. You may need to stop taking apixaban for a short time. Do not stop taking apixaban unless your doctor tells you to. If you stop taking apixaban for any reason, your doctor may prescribe another medicine to prevent blood clots. Store at room temperature away from moisture and heat. What happens if I miss a dose? Take the missed dose on the same day you remember it. Take your next dose at the regular time and stay on your twice-daily schedule. Do not take two doses at one time. Get your prescription refilled before you run out of medicine completely. What happens if I overdose? Seek emergency medical attention or call the Poison Help line at . What should I avoid while taking apixaban? Avoid activities that may increase your risk of bleeding or injury. Use extra care while shaving or brushing your teeth. What are the possible side effects of apixaban? Get emergency medical help if you have signs of an allergic reaction: hives; chest pain, wheezing, difficult breathing; feeling light-headed; swelling of your face, lips, tongue, or throat. Also seek emergency medical attention if you have symptoms of a spinal blood clot such as tingling, numbness, or muscle weakness especially in your legs and feet. Call your doctor at once if you have: easy bruising, unusual bleeding (nose, mouth, vagina, or rectum), bleeding from wounds or needle injections, any bleeding that will not stop; heavy menstrual bleeding; headache, dizziness, weakness, feeling like you might pass out; urine that looks red, pink, or brown; or black or bloody stools, coughing up blood or vomit that looks like coffee grounds. This is not a complete list of side effects and others may occur. Call your doctor for medical advice about side effects. You may report side effects to FDA at 4-162-ZHD-6629. What other drugs will affect apixaban? Sometimes it is not safe to use certain medications at the same time. Some drugs can affect your blood levels of other drugs you take, which may increase side effects or make the medications less effective. Many other drugs (including some sqql-oio-whczqcv medicines) can increase your risk of bleeding or blood clots. Tell your doctor about all medicines you have recently used, especially: any other medicines to treat or prevent blood clots; a blood thinner such as heparin or warfarin (Coumadin, Jantoven); an antidepressant; or aspirin or other NSAID (nonsteroidal anti-inflammatory drug) used intermediate accountant. This list is not complete and many other drugs may affect apixaban. This includes prescription and hbne-jrk-xgvukeg medicines, vitamins, and herbal products. Not all possible drug interactions are listed here. Where can I get more information? Your pharmacist can provide more information about apixaban. Remember, keep this and all other medicines out of the reach of children, never share your medicines with others, and use this medication only for the indication prescribed. Every effort has been made to ensure that the information provided by [employer]. ('[employer]') is accurate, up-to-date, and complete, but no guarantee is made to that effect. Drug information contained herein may be time sensitive. [employer] information has been compiled for use by healthcare practitioners and consumers in the [place] and therefore [employer] does not warrant that uses outside of the [place] are appropriate, unless specifically indicated otherwise. [employer] drug information does not endorse drugs, diagnose patients or recommend therapy. [employer] drug information is an informational resource designed to assist licensed healthcare practitioners in caring for their patients and/or to serve consumers viewing this service as a supplement to, and not a substitute for, the expertise, skill, knowledge and judgment of healthcare practitioners. The absence of a warning for a given drug or drug combination in no way should be construed to indicate that the drug or drug combination is safe, effective or appropriate for any given patient. [employer] does not assume any responsibility for any aspect of healthcare administered with the aid of information [employer] provides. The information contained herein is not intended to cover all possible uses, directions, precautions, warnings, drug interactions, allergic reactions, or adverse effects. If you have questions about the drugs you are taking, check with your doctor, nurse or pharmacist. Copyright 4130-3543 [employer]. Version: 6.01. Revision Date: 06/13/2021. Education Materials Pulmonary Embolism A pulmonary embolism (PE) is a sudden blockage or decrease of blood flow in one or both lungs. Most blockages come from a blood clot that forms in the vein of a lower leg, thigh, or arm (deep vein thrombosis, DVT) and travels to the lungs. A clot is blood that has thickened into a gel or solid. PE is a dangerous and life-threatening condition that needs to be treated right away. What are the causes? This condition is usually caused by a blood clot that forms in a vein and moves to the lungs. In rare cases, it may be caused by air, fat, part of a tumor, or other tissue that moves through the veins and into the lungs. What increases the risk? The following factors may make you more likely to develop this condition: Experiencing a traumatic injury, such as breaking a hip or leg. Having: ? A spinal cord injury. ? Orthopedic surgery, especially hip or knee replacement. ? Any major surgery. ? A stroke. ? DVT. ? Blood clots or blood clotting disease. ? Long-term (chronic) lung or heart disease. ? Cancer treated with chemotherapy. ? A central venous catheter. Taking medicines that contain estrogen. These include control pills and hormone replacement therapy. Being: ? . ? In the period of time after your baby is delivered (). ? Older than age 60. ? Overweight. ? A smoker, especially if you have other risks. What are the signs or symptoms? Symptoms of this condition usually start suddenly and include: Shortness of breath during activity or at rest. Coughing, coughing up blood, or coughing up blood-tinged mucus. Chest pain that is often worse with deep breaths. Rapid or irregular heartbeat. Feeling light-headed or dizzy. Fainting. Feeling anxious. Fever. Sweating. Pain and swelling in a leg. This is a symptom of DVT, which can lead to PE. How is this diagnosed? This condition may be diagnosed based on: Your medical history. A physical exam. Blood tests. CT pulmonary angiogram. This test checks blood flow in and around your lungs. Ventilation-perfusion scan, also called a lung VQ scan. This test measures air flow and blood flow to the lungs. An ultrasound of the legs. How is this treated? Treatment for this condition depends on many factors, such as the cause of your PE, your risk for bleeding or developing more clots, and other medical conditions you have. Treatment aims to remove, dissolve, or stop blood clots from forming or growing larger. Treatment may include: Medicines, such as: ? Blood thinning medicines (anticoagulants) to stop clots from forming. ? Medicines that dissolve clots (thrombolytics). Procedures, such as: ? Using a flexible tube to remove a blood clot (embolectomy) or to deliver medicine to destroy it (catheter-directed thrombolysis). ? Inserting a filter into a large vein that carries blood to the heart (inferior vena cava). This filter (vena cava filter) catches blood clots before they reach the lungs. ? Surgery to remove the clot (surgical embolectomy). This is rare. You may need a combination of immediate, long-term (up to 3 months after diagnosis), and extended (more than 3 months after diagnosis) treatments. Your treatment may continue for several months (maintenance therapy). You and your health care provider will work together to choose the treatment program that is best for you. Follow these instructions at home: Medicines Take noxx-rqp-edlsyny and prescription medicines only as told by your health care provider. If you are taking an anticoagulant medicine: ? Take the medicine every day at the same time each day. ? Understand what foods and drugs interact with your medicine. ? Understand the side effects of this medicine, including excessive bruising or bleeding. Ask your health care provider or pharmacist about other side effects. General instructions Wear a medical alert bracelet or carry a medical alert card that says you have had a PE and lists what medicines you take. Ask your health care provider when you may return to your normal activities. Avoid sitting or lying for a long time without moving. Maintain a healthy weight. Ask your health care provider what weight is healthy for you. Do not use any products that contain nicotine or tobacco, such as cigarettes, e-cigarettes, and chewing tobacco. If you need help quitting, ask your health care provider. Talk with your health care provider about any travel plans. It is important to make sure that you are still able to take your medicine while on trips. Keep all follow-up visits as told by your health care provider. This is important. Contact a health care provider if: You missed a dose of your blood thinner medicine. Get help right away if: You have: ? New or increased pain, swelling, warmth, or redness in an arm or leg. ? Numbness or tingling in an arm or leg. ? Shortness of breath during activity or at rest. ? A fever. ? Chest pain. ? A rapid or irregular heartbeat. ? A severe headache. ? Vision changes. ? A serious fall or accident, or you hit your head. ? Stomach (abdominal) pain. ? Blood in your vomit, stool, or urine. ? A cut that will not stop bleeding. You cough up blood. You feel light-headed or dizzy. You cannot move your arms or legs. You are confused or have memory loss. These symptoms may represent a serious problem that is an emergency. Do not wait to see if the symptoms will go away. Get medical help right away. Call your local emergency services (911 in the [place] Do not drive yourself to the hospital. Summary A pulmonary embolism (PE) is a sudden blockage or decrease of blood flow in one or both lungs. PE is a dangerous and life-threatening condition that needs to be treated right away. Treatments for this condition usually include medicines to thin your blood (anticoagulants) or medicines to break apart blood clots (thrombolytics). If you are given blood thinners, it is important to take the medicine every day at the same time each day. Understand what foods and drugs interact with any medicines that you are taking. If you have signs of PE or DVT, call your local emergency services (911 in the [place] This information is not intended to replace advice given to you by your health care provider. Make sure you discuss any questions you have with your health care provider. Document Released: 10/04/2001 Document Revised: 07/15/2019 Document Reviewed: 07/15/2019 [employer] Patient Education 2020 [employer]. Additional Information VACCINATE! IT SAVES LIVES! Members of the community who have not yet received the COVID-19 vaccine and would like to receive it can visit one of [facility] vaccine clinics. There are many vaccine clinic locations within the [facility]. For locations and available times, please visit [email or web address].[place] .gov/. It is important to note that some COVID mobile vaccine clinics are held outdoors and may be canceled in rainy or stormy conditions. To learn more about pediatric vaccinations (ages 5-11), we invite you to visit the [facility] webpage. [email or web address]-[email or web address] -[email or web address]-Questions.[email or web address] To learn more about the COVID-19 vaccine, we invite you to visit the CDC website for a list of frequently asked questions.https://www.cdc.gov/coron avirus/2019-ncov/vaccines/faq.html [facility] Patient Portal Access Instructions: Stay connected with your healthcare team and access your personal medical information anytime with the [employer] Patient Portal. Please follow the directions below to create your [facility] account: 1.Access the email account you provided upon registration to the hospital/physician office.2.Look for an invitation email from [facility].3.Open the email and access the invitation link: Accept Invitation to [facility].4.Fill in the required del real to create your account. To access your account, visit [email or web address]. Click the blue button labeled Access Patient Portal and then log in with the username and password that you created in the steps above. You will be able to view your test results, lab results, a summary of your visits, upcoming appointments and more. There is also a convenient messaging option where you can send secure messages to your provider. In addition, you will have the ability to download any documents or summaries to your computer and/or send the information securely to a physician. Remember that your healthcare information is confidential, so carefully consider who you will allow to register on the [facility] Patient Portal for access to your information. You can also access the [facility] Patient Portal on the [facility]. Simply click on Patient Portal and then log into your account. If you would like to receive a full copy of your medical records, please contact the [facility] Medical Records Department by calling [phone], Saturday through Saturday between 8 a.m. and 4:30 p.m. HOW TO SAFELY DISPOSE OF PRESCRIPTION MEDICATIONS Please use one of the following methods to safely dispose of your unused medications. 1.Use a drug disposal kit: the drug disposal pouch allows you to safely discard your old and unused drugs. Ask your nurse to give you one when you are discharged.2.Visit a local take-back location: Many local pharmacies and police departments have programs that collect old and unwanted prescription drugs. Call your local pharmacy or go to http://bit.ly/1Q6Sh4h to find one close to you.3.Make use of household items: Use cat litter or old coffee grounds to dispose medications if other options are not available. Mix your drugs with these household products, seal them in an airtight container and throw it into the garbage. Call [facility]: [phone] to be sure your drugs can be disposed of in this way. Some medicines may require a different approach.4.Never flush your medications down the toilet. IF YOU HAVE BEEN PRESCRIBED AN OPIOID FOR PAIN If you have been prescribed an opioid (such as hydrocodone, oxycodone or morphine), it is critical to understand the possible side effects and risks of opioid pain medications. Even when taken as directed, opioids can have several side effects including: Tolerance, meaning you might need to take more of a medication for the same pain relief. Nausea, vomiting and/or constipation. Sleepiness, dizziness, dry mouth, confusion, depression or itching. Physical dependence, meaning you have withdrawal symptoms when a medication is stopped, can develop within a few days. KNOW YOUR RESPONSIBILITIES It is important to know exactly how much and how often to take the opioid pain medications you are prescribed. Never take opioids in higher amounts or more often than prescribed. Do not combine opioids with alcohol or other drugs that cause drowsiness, such as benzodiazepines, also known as benzos, including diazepam and alprazolam, muscle relaxants or sleep aids. Never sell or share prescription opioids. This is illegal. Store opioids in a secure place and out of reach of others (including children, family, friends and visitors). The last page of this document has been signed and retained as a CHART COPY. Signatures Patient Education Materials Pulmonary Embolism Medication Leaflets cefdinir, apixaban My discharge plan and instructions have been reviewed and explained to me and IAMANDA MARGARET J understand my current condition and have read and understand these discharge instructions. I have received a written copy of the plan/instructions. If I have questions, I am aware that I should contact my doctor. Patient/Settlement Clerk Signature: ____ Date/Time: Relationship to Patient: __ Witness Name/Signature: Date/Time: [facility] 04-30-2024 Note Discharge Instructions Thank you for allowing [facility] to assist you with your healthcare needs. The following is important discharge information regarding your hospital visit. Your Care Team LUIS ELLIOTT Your Diagnosis Acute rhinosinusitis B12 deficiency anemia Bilateral serous otitis media Depression Insomnia Insomnia What to do next Scheduled Follow-Up Appointments 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 When With Where Contact Information StatusPC OV 05/21/2024 03:00 PM EDT LUIS ELLIOTT [address] [id number] Confirmed CV OV 06/15/2024 03:00 PM EDT VELMA REYNOLDS [facility] Confirmed Follow Up Appointments Follow Up with JAIDEN ABDUL BA, MD, Infectious Disease, Infectious Disease Group When:In 2 weeks Where:[facility] [id number] [place] [address]- [phone] Follow Up with KAYDEN SANDERS DO, Orthopedic When:In 3 weeks Where:[address] [facility], [place] [address]- [phone] Follow Up with LUIS ELLIOTT When:Within 1-2 days Where:[address] [place] [phone]- Business (1) Additional Information: Please call the office to schedule a hospital follow-up appointment. Follow Up with SHWETHA WATTERS MD, Orthopedic When:In 2 weeks Where:[address] [facility], [place] [address] [phone] Additional Information: for L hip AVN Follow Up with [facility] Additional Information: They will call you before they come out. Call [phone] with any questions or concerns. Home Physical and occupational therapy will resume and an RN has been added. The Following Activity and Diet Have Been Ordered for You Discharge Activity - Ordered -- Resume your pre-hospitalization activity, 04/30/24 11:59:00 EDT Discharge Diet - Ordered -- Type of Diet: Regular, 04/30/24 11:59:00 EDT The Following Equipment Has Been Ordered for You No qualifying data available. The Following Treatments Have Been Ordered for You Discharge Labs No qualifying data available. Discharge Radiology No qualifying data available. Other Therapies No qualifying data available. Post Acute Orders No qualifying data available. Someone Will Contact You Regarding These Home Health Referrals Consult Home Health - OT - Ordered -- 04/30/24 11:59:00 EDT, Home Therapy Order: OT Eval & Treat, Home Therapy Instruction: Full weight bearing, Reason: General Debility Consult Home Health - PT - Ordered -- 04/30/24 11:59:00 EDT, Home Therapy Order: PT Eval & Treat, Reason: General Debility, Home Therapy Instruction: Full weight bearing Consult Home Health - RN - Ordered -- 04/30/24 11:59:00 EDT, Reason: Disease management Allergies Ultram confusion codeine nausea lisinopril Cough traMADol Unknown Medications Please ask your primary doctor or pharmacist before taking any other medication not listed, including over the counter drugs, herbal medications, vitamins and or supplements as they may interact with your home medications. What How Much When Why Instructions Last Dose New apixaban (Eliquis 5 mg oral tablet) 1 tab(s) by mouth Two (2) times a day Pickup at [facility]/pharmacy #[id number] New cefdinir (cefdinir 300 mg oral capsule) 1 cap by mouth Every 12 hours Duration: 14 Days Pickup at [facility]/pharmacy #[id number] Unchanged acetaminophen (Tylenol Extra Strength 500 mg oral tablet) 2 tab(s) by mouth Four (4) times a day as needed for for pain Unchanged aspirin (aspirin 81 mg oral tablet, chewable) 1 tab(s) by mouth Every day Unchanged atorvastatin (atorvastatin 40 mg oral tablet) 1 tab(s) by mouth Daily at bedtime Unchanged calcium carbonate (calcium (as carbonate) 600 mg oral tablet) 2 tab(s) by mouth Once a day as needed for for control of stomach acid Unchanged carvedilol (carvedilol 12.5 mg oral tablet) 1 tab(s) by mouth Twice daily with meals Unchanged cholecalciferol (Vitamin D3 125 mcg (5000 intl units) oral capsule) 1 cap by mouth Once a day Unchanged clobetasol topical (clobetasol 0.05% topical cream) 1 application Topical Two (2) times a day Lichen sclerosus for two weeks then slowly taper down to 1-2 times per week Unchanged clopidogrel (clopidogrel 75 mg oral tablet) 1 tab(s) by mouth Once a day Unchanged cyanocobalamin (Vitamin B12 500 mcg oral tablet) 2 tab(s) by mouth Once a day B12 deficiency anemia Duration: 90 Days Unchanged DULoxetine (DULoxetine 60 mg oral delayed release capsule) 1 cap by mouth Once a day Depression Unchanged eszopiclone (eszopiclone 3 mg oral tablet) 1 tab(s) by mouth Daily at bedtime Insomnia Duration: 90 Days OARRS reviewed 02/19, may fill 02/25 Unchanged fluticasone nasal (fluticasone 50 mcg/ inh NASAL spray) 2 spray(s) each nostril Once a day Acute rhinosinusitis Bilateral serous otitis media Duration: 30 Days shake well before using Unchanged losartan (losartan 100 mg oral tablet) See instructions 10/22 tab(s) Oral Daily Unchanged ondansetron (ondansetron 4 mg oral tablet, disintegrating) 1 tab(s) by mouth Every 6 hours as needed for as needed for nausea/vomiting Nausea with vomiting Duration: 3 Days Unchanged polyethylene glycol 3350 (MiraLax oral powder for reconstitution) 17 gram(s) by mouth Once a day Unchanged traZODone (traZODone 50 mg oral tablet) 1 tab(s) by mouth Daily at bedtime Insomnia Pharmacy Information [facility]/pharmacy #[id number]: [address], [place] [phone] Please take this list to your next doctor s visit. Bring all medications you take, including over the counter medications, herbals and other supplements with you to your doctor s visit. Patients and families are reminded to discard old lists and to update any records with all medication providers or retail pharmacies. Medication Leaflets cefdinir ([facility] mark carter) What is the most important information I should know about cefdinir? Do not take this medicine if you are allergic to cefdinir, or to similar antibiotics, such as Ceftin, Cefzil, Keflex, and others. What is cefdinir? Cefdinir is a cephalosporin (SEF a low spor in) antibiotic that is used to treat many different types of infections caused by bacteria. Cefdinir may also be used for purposes not listed in this medication guide. What should I discuss with my healthcare provider before taking cefdinir? You should not take this medicine if you are allergic to cefdinir or any other cephalosporin antibiotic (cefadroxil, cefprozil, cefazolin, cefalexin, Keflex, and others). Tell your doctor if you have ever had: kidney disease (or if you are on dialysis); intestinal problems, such as colitis; or an allergy to any drugs (especially penicillins). Cefdinir liquid contains sucrose. Talk to your doctor before using this form of cefdinir if you have diabetes. Tell your doctor if you are or . How should I take cefdinir? Follow all directions on your prescription label and read all medicine guides or instruction sheets. Use the medicine exactly as directed. Shake the oral suspension (liquid) before you measure a dose. Use the dosing syringe provided, or use a medicine dose-measuring device (not a kitchen spoon). You may take cefdinir with or without food. Use this medicine for the full prescribed length of time, even if your symptoms quickly improve. Skipping doses can increase your risk of infection that is resistant to medication. Cefdinir will not treat a viral infection such as the flu or a common cold. Cefdinir can affect the results of certain medical tests. Tell any doctor who treats you that you are using cefdinir. Store at room temperature away from moisture and heat. Throw away any unused cefdinir liquid that is older than 10 days. What happens if I miss a dose? Take the medicine as soon as you can, but skip the missed dose if it is almost time for your next dose. Do not take two doses at one time. What happens if I overdose? Seek emergency medical attention or call the Poison Help line at . Overdose symptoms may include nausea, vomiting, stomach pain, diarrhea, or a seizure. What should I avoid while taking cefdinir? Avoid using antacids or mineral supplements that contain aluminum, magnesium, or iron within 2 hours before or after taking cefdinir. Antacids or iron can make it harder for your body to absorb cefdinir. This does not include baby formula fortified with iron. Antibiotic medicines can cause diarrhea, which may be a sign of a new infection. If you have diarrhea that is watery or bloody, call your doctor before using anti-diarrhea medicine. What are the possible side effects of cefdinir? Get emergency medical help if you have signs of an allergic reaction (hives, difficult breathing, swelling in your face or throat) or a severe skin reaction (fever, sore throat, burning eyes, skin pain, red or purple skin rash with blistering and peeling). Call your doctor at once if you have: severe stomach pain, diarrhea that is watery or bloody (even if it occurs months after your last dose); fever, chills, body aches, flu symptoms; pale skin, easy bruising, unusual bleeding; seizure (convulsions); fever, weakness, confusion; dark colored urine, jaundice (yellowing of the skin or eyes); or kidney problems--little or no urination, swelling in your feet or ankles, feeling tired or short of breath. Common side effects may include: nausea, vomiting, stomach pain, diarrhea; vaginal itching or discharge; headache; or rash (including diaper rash in an taking liquid cefdinir. This is not a complete list of side effects and others may occur. Call your doctor for medical advice about side effects. You may report side effects to FDA at 5-921-LNP-4262. What other drugs will affect cefdinir? Tell your doctor about all your other medicines, especially: probenecid; or vitamin or mineral supplements that contain iron. This list is not complete. Other drugs may affect cefdinir, including prescription and mmrr-shx-zzrkrzw medicines, vitamins, and herbal products. Not all possible drug interactions are listed here. Where can I get more information? Your pharmacist can provide more information about cefdinir. Remember, keep this and all other medicines out of the reach of children, never share your medicines with others, and use this medication only for the indication prescribed. Every effort has been made to ensure that the information provided by [employer] is accurate, up-to-date, and complete, but no guarantee is made to that effect. Drug information contained herein may be time sensitive. [employer] information has been compiled for use by healthcare practitioners and consumers in the [place] and therefore [employer] does not warrant that uses outside of the [place] are appropriate, unless specifically indicated otherwise. [employer]'s drug information does not endorse drugs, diagnose patients or recommend therapy. [employer] drug information is an informational resource designed to assist licensed healthcare practitioners in caring for their patients and/or to serve consumers viewing this service as a supplement to, and not a substitute for, the expertise, skill, knowledge and judgment of healthcare practitioners. The absence of a warning for a given drug or drug combination in no way should be construed to indicate that the drug or drug combination is safe, effective or appropriate for any given patient. [facility] does not assume any responsibility for any aspect of healthcare administered with the aid of information [facility] provides. The information contained herein is not intended to cover all possible uses, directions, precautions, warnings, drug interactions, allergic reactions, or adverse effects. If you have questions about the drugs you are taking, check with your doctor, nurse or pharmacist. Copyright 9672-0902 [facility]. Version: 9.. Revision Date: 05/24/2023. apixaban (a PIX a ban) Andrew What is the most important information I should know about apixaban? Apixaban increases your risk of severe or fatal bleeding, especially if you take certain medicines at the same time (including some trzc-wvr-rjneuqv medicines). Tell your doctor about all medicines you have recently used. Call your doctor at once if you have signs of bleeding such as: easy bruising, unusual bleeding, unexpected pain or swelling, feeling very weak or dizzy, bleeding gums, nosebleeds, heavy menstrual bleeding, blood in your urine or stools, coughing up blood or vomit that looks like coffee grounds, or any bleeding that will not stop. Apixaban can cause a very serious blood clot around your spinal cord that can lead to long-term or permanent paralysis. This type of blood clot can occur during a spinal tap or spinal anesthesia (epidural), especially if you have a genetic spinal defect, if you use a spinal catheter, if you've had spinal surgery or repeated spinal taps, or if you use other drugs that can affect blood clotting. Get emergency medical help if you have symptoms of a spinal cord blood clot such as tingling, numbness, or muscle weakness especially in your legs and feet. Do not stop taking apixaban unless your doctor tells you to. Stopping suddenly can increase your risk of blood clot or stroke. What is apixaban? Apixaban is used to lower the risk of stroke caused by a blood clot in people with a heart rhythm disorder called atrial fibrillation. Apixaban is also used after hip or knee replacement surgery to prevent a type of blood clot called deep vein thrombosis (DVT), which can lead to blood clots in the lungs (pulmonary embolism). Apixaban is also used to treat DVT or pulmonary embolism (PE), and to lower your risk of having a repeat DVT or PE. Apixaban may also be used for purposes not listed in this medication guide. What should I discuss with my healthcare provider before taking apixaban? You should not take apixaban if you are allergic to it, or if you have active bleeding from a surgery, injury, or other cause. Apixaban may cause you to bleed more easily, especially if you have a bleeding disorder that is inherited or caused by disease. Tell your doctor if you have an artificial heart valve, or if you have ever had: bleeding problems; antiphospholipid syndrome, especially if you have a triple positive antibody test; or liver or kidney disease. Apixaban can cause a very serious blood clot around your spinal cord if you undergo a spinal tap or receive spinal anesthesia (epidural). This type of blood clot could cause long-term paralysis, and may be more likely to occur if: you have a spinal catheter in place or if a catheter has been recently removed; you have a history of spinal surgery or repeated spinal taps; you have recently had a spinal tap or epidural anesthesia; you take aspirin or other NSAIDs (nonsteroidal anti-inflammatory drugs)--ibuprofen (Advil, Motrin), naproxen (Aleve), diclofenac, indomethacin, meloxicam, and others; or you are using other medicines to treat or prevent blood clots. Taking apixaban may increase the risk of bleeding while you are or during your delivery. Tell your doctor if you are or plan to become . Do not breastfeed. How should I take apixaban? Follow all directions on your prescription label and read all medication guides or instruction sheets. Your doctor may occasionally change your dose. Use the medicine exactly as directed. You may take apixaban with or without food. If you cannot swallow a tablet whole, crush it and mix with water, apple juice, or applesauce. Swallow the mixture right away without chewing. A crushed tablet mixture may also be given through a nasogastric (NG) feeding tube. Read and carefully follow any Instructions for Use provided with your medicine. Apixaban can make it easier for you to bleed, even from a minor injury. Seek medical attention if you have bleeding that will not stop. Tell your doctor if you have a planned surgery or dental work. You may need to stop taking apixaban for a short time. Do not stop taking apixaban unless your doctor tells you to. If you stop taking apixaban for any reason, your doctor may prescribe another medicine to prevent blood clots. Store at room temperature away from moisture and heat. What happens if I miss a dose? Take the missed dose on the same day you remember it. Take your next dose at the regular time and stay on your twice-daily schedule. Do not take two doses at one time. Get your prescription refilled before you run out of medicine completely. What happens if I overdose? Seek emergency medical attention or call the Poison Help line at . What should I avoid while taking apixaban? Avoid activities that may increase your risk of bleeding or injury. Use extra care while shaving or brushing your teeth. What are the possible side effects of apixaban? Get emergency medical help if you have signs of an allergic reaction: hives; chest pain, wheezing, difficult breathing; feeling light-headed; swelling of your face, lips, tongue, or throat. Also seek emergency medical attention if you have symptoms of a spinal blood clot such as tingling, numbness, or muscle weakness especially in your legs and feet. Call your doctor at once if you have: easy bruising, unusual bleeding (nose, mouth, vagina, or rectum), bleeding from wounds or needle injections, any bleeding that will not stop; heavy menstrual bleeding; headache, dizziness, weakness, feeling like you might pass out; urine that looks red, pink, or brown; or black or bloody stools, coughing up blood or vomit that looks like coffee grounds. This is not a complete list of side effects and others may occur. Call your doctor for medical advice about side effects. You may report side effects to FDA at 5-211-LCW-9138. What other drugs will affect apixaban? Sometimes it is not safe to use certain medications at the same time. Some drugs can affect your blood levels of other drugs you take, which may increase side effects or make the medications less effective. Many other drugs (including some xhnv-uid-nsxbfin medicines) can increase your risk of bleeding or blood clots. Tell your doctor about all medicines you have recently used, especially: any other medicines to treat or prevent blood clots; a blood thinner such as heparin or warfarin (Coumadin, Jantoven); an antidepressant; or aspirin or other NSAID (nonsteroidal anti-inflammatory drug) used residential. This list is not complete and many other drugs may affect apixaban. This includes prescription and iuhg-lvl-iiidsbm medicines, vitamins, and herbal products. Not all possible drug interactions are listed here. Where can I get more information? Your pharmacist can provide more information about apixaban. Remember, keep this and all other medicines out of the reach of children, never share your medicines with others, and use this medication only for the indication prescribed. Every effort has been made to ensure that the information provided by [employer] is accurate, up-to-date, and complete, but no guarantee is made to that effect. Drug information contained herein may be time sensitive. [employer] information has been compiled for use by healthcare practitioners and consumers in the [place] and therefore [employer] does not warrant that uses outside of the [place] are appropriate, unless specifically indicated otherwise. [employer]'s drug information does not endorse drugs, diagnose patients or recommend therapy. [employer] drug information is an informational resource designed to assist licensed healthcare practitioners in caring for their patients and/or to serve consumers viewing this service as a supplement to, and not a substitute for, the expertise, skill, knowledge and judgment of healthcare practitioners. The absence of a warning for a given drug or drug combination in no way should be construed to indicate that the drug or drug combination is safe, effective or appropriate for any given patient. [employer] does not assume any responsibility for any aspect of healthcare administered with the aid of information [employer] provides. The information contained herein is not intended to cover all possible uses, directions, precautions, warnings, drug interactions, allergic reactions, or adverse effects. If you have questions about the drugs you are taking, check with your doctor, nurse or pharmacist. Copyright 6194-0587 [employer]. Version: 6.01. Revision Date: 06/13/2021. Education Materials Pulmonary Embolism A pulmonary embolism (PE) is a sudden blockage or decrease of blood flow in one or both lungs. Most blockages come from a blood clot that forms in the vein of a lower leg, thigh, or arm (deep vein thrombosis, DVT) and travels to the lungs. A clot is blood that has thickened into a gel or solid. PE is a dangerous and life-threatening condition that needs to be treated right away. What are the causes? This condition is usually caused by a blood clot that forms in a vein and moves to the lungs. In rare cases, it may be caused by air, fat, part of a tumor, or other tissue that moves through the veins and into the lungs. What increases the risk? The following factors may make you more likely to develop this condition: Experiencing a traumatic injury, such as breaking a hip or leg. Having: ? A spinal cord injury. ? Orthopedic surgery, especially hip or knee replacement. ? Any major surgery. ? A stroke. ? DVT. ? Blood clots or blood clotting disease. ? Long-term (chronic) lung or heart disease. ? Cancer treated with chemotherapy. ? A central venous catheter. Taking medicines that contain estrogen. These include control pills and hormone replacement therapy. Being: ? . ? In the period of time after your baby is delivered (). ? Older than age 60. ? Overweight. ? A smoker, especially if you have other risks. What are the signs or symptoms? Symptoms of this condition usually start suddenly and include: Shortness of breath during activity or at rest. Coughing, coughing up blood, or coughing up blood-tinged mucus. Chest pain that is often worse with deep breaths. Rapid or irregular heartbeat. Feeling light-headed or dizzy. Fainting. Feeling anxious. Fever. Sweating. Pain and swelling in a leg. This is a symptom of DVT, which can lead to PE. How is this diagnosed? This condition may be diagnosed based on: Your medical history. A physical exam. Blood tests. CT pulmonary angiogram. This test checks blood flow in and around your lungs. Ventilation-perfusion scan, also called a lung VQ scan. This test measures air flow and blood flow to the lungs. An ultrasound of the legs. How is this treated? Treatment for this condition depends on many factors, such as the cause of your PE, your risk for bleeding or developing more clots, and other medical conditions you have. Treatment aims to remove, dissolve, or stop blood clots from forming or growing larger. Treatment may include: Medicines, such as: ? Blood thinning medicines (anticoagulants) to stop clots from forming. ? Medicines that dissolve clots (thrombolytics). Procedures, such as: ? Using a flexible tube to remove a blood clot (embolectomy) or to deliver medicine to destroy it (catheter-directed thrombolysis). ? Inserting a filter into a large vein that carries blood to the heart (inferior vena cava). This filter (vena cava filter) catches blood clots before they reach the lungs. ? Surgery to remove the clot (surgical embolectomy). This is rare. You may need a combination of immediate, long-term (up to 3 months after diagnosis), and extended (more than 3 months after diagnosis) treatments. Your treatment may continue for several months (maintenance therapy). You and your health care provider will work together to choose the treatment program that is best for you. Follow these instructions at home: Medicines Take kjto-xou-kvnxdlr and prescription medicines only as told by your health care provider. If you are taking an anticoagulant medicine: ? Take the medicine every day at the same time each day. ? Understand what foods and drugs interact with your medicine. ? Understand the side effects of this medicine, including excessive bruising or bleeding. Ask your health care provider or pharmacist about other side effects. General instructions Wear a medical alert bracelet or carry a medical alert card that says you have had a PE and lists what medicines you take. Ask your health care provider when you may return to your normal activities. Avoid sitting or lying for a long time without moving. Maintain a healthy weight. Ask your health care provider what weight is healthy for you. Do not use any products that contain nicotine or tobacco, such as cigarettes, e-cigarettes, and chewing tobacco. If you need help quitting, ask your health care provider. Talk with your health care provider about any travel plans. It is important to make sure that you are still able to take your medicine while on trips. Keep all follow-up visits as told by your health care provider. This is important. Contact a health care provider if: You missed a dose of your blood thinner medicine. Get help right away if: You have: ? New or increased pain, swelling, warmth, or redness in an arm or leg. ? Numbness or tingling in an arm or leg. ? Shortness of breath during activity or at rest. ? A fever. ? Chest pain. ? A rapid or irregular heartbeat. ? A severe headache. ? Vision changes. ? A serious fall or accident, or you hit your head. ? Stomach (abdominal) pain. ? Blood in your vomit, stool, or urine. ? A cut that will not stop bleeding. You cough up blood. You feel light-headed or dizzy. You cannot move your arms or legs. You are confused or have memory loss. These symptoms may represent a serious problem that is an emergency. Do not wait to see if the symptoms will go away. Get medical help right away. Call your local emergency services (911 in the [place] Do not drive yourself to the hospital. Summary A pulmonary embolism (PE) is a sudden blockage or decrease of blood flow in one or both lungs. PE is a dangerous and life-threatening condition that needs to be treated right away. Treatments for this condition usually include medicines to thin your blood (anticoagulants) or medicines to break apart blood clots (thrombolytics). If you are given blood thinners, it is important to take the medicine every day at the same time each day. Understand what foods and drugs interact with any medicines that you are taking. If you have signs of PE or DVT, call your local emergency services (911 in the [place] This information is not intended to replace advice given to you by your health care provider. Make sure you discuss any questions you have with your health care provider. Document Released: 10/04/2001 Document Revised: 07/15/2019 Document Reviewed: 07/15/2019 [employer] Patient Education 2020 [employer] Additional Information VACCINATE! IT SAVES LIVES! Members of the community who have not yet received the COVID-19 vaccine and would like to receive it can visit one of [facility] vaccine clinics. There are many vaccine clinic locations within the [facility]. For locations and available times, please visit [email or web address] It is important to note that some COVID mobile vaccine clinics are held outdoors and may be canceled in rainy or stormy conditions. To learn more about pediatric vaccinations (ages 5-11), we invite you to visit the [facility] webpage. [email or web address] To learn more about the COVID-19 vaccine, we invite you to visit the CDC website for a list of frequently asked questions.https://www.cdc.gov/coron avirus/2019-ncov/vaccines/faq.html [facility] Patient Portal Access Instructions: Stay connected with your healthcare team and access your personal medical information anytime with the [email or web address] Patient Portal. Please follow the directions below to create your [employer] account: 1.Access the email account you provided upon registration to the hospital/physician office.2.Look for an invitation email from [facility].3.Open the email and access the invitation link: Accept Invitation to [email or web address].4.Fill in the required del real to create your account. To access your account, visit [employer]. Click the blue button labeled Access Patient Portal and then log in with the username and password that you created in the steps above. You will be able to view your test results, lab results, a summary of your visits, upcoming appointments and more. There is also a convenient messaging option where you can send secure messages to your provider. In addition, you will have the ability to download any documents or summaries to your computer and/or send the information securely to a physician. Remember that your healthcare information is confidential, so carefully consider who you will allow to register on the [email or web address] Patient Portal for access to your information. You can also access the [email or web address] Patient Portal on the [employer] juli. Simply click on Patient Portal and then log into your account. If you would like to receive a full copy of your medical records, please contact the [facility] Medical Records Department by calling [phone], Saturday through Saturday between 8 a.m. and 4:30 p.m. HOW TO SAFELY DISPOSE OF PRESCRIPTION MEDICATIONS Please use one of the following methods to safely dispose of your unused medications. 1.Use a drug disposal kit: the drug disposal pouch allows you to safely discard your old and unused drugs. Ask your nurse to give you one when you are discharged.2.Visit a local take-back location: Many local pharmacies and police departments have programs that collect old and unwanted prescription drugs. Call your local pharmacy or go to http://Act[employer].com.[employer]/9A8Oq8z to find one close to you.3.Make use of household items: Use cat litter or old coffee grounds to dispose medications if other options are not available. Mix your drugs with these household products, seal them in an airtight container and throw it into the garbage. Call [facility]: [phone] to be sure your drugs can be disposed of in this way. Some medicines may require a different approach.4.Never flush your medications down the toilet. IF YOU HAVE BEEN PRESCRIBED AN OPIOID FOR PAIN If you have been prescribed an opioid (such as hydrocodone, oxycodone or morphine), it is critical to understand the possible side effects and risks of opioid pain medications. Even when taken as directed, opioids can have several side effects including: Tolerance, meaning you might need to take more of a medication for the same pain relief. Nausea, vomiting and/or constipation. Sleepiness, dizziness, dry mouth, confusion, depression or itching. Physical dependence, meaning you have withdrawal symptoms when a medication is stopped, can develop within a few days. KNOW YOUR RESPONSIBILITIES It is important to know exactly how much and how often to take the opioid pain medications you are prescribed. Never take opioids in higher amounts or more often than prescribed. Do not combine opioids with alcohol or other drugs that cause drowsiness, such as benzodiazepines, also known as benzos, including diazepam and alprazolam, muscle relaxants or sleep aids. Never sell or share prescription opioids. This is illegal. Store opioids in a secure place and out of reach of others (including children, family, friends and visitors). The last page of this document has been signed and retained as a CHART COPY. Signatures Patient Education Materials Pulmonary Embolism Medication Leaflets cefdinir, apixaban My discharge plan and instructions have been reviewed and explained to me and IAMANDA MARGARET J understand my current condition and have read and understand these discharge instructions. I have received a written copy of the plan/instructions. If I have questions, I am aware that I should contact my doctor. Patient/Settlement Clerk Signature: ____ Date/Time: Relationship to Patient: __ Witness Name/Signature: Date/Time: [facility] 04-30-2024 Infectious disease Progress note Date of Service 04/30/2024 Objective Vitals and Measurements T: 36.6 C (Oral) TMIN: 36.2 C (Axillary) TMAX: 36.7 C (Oral) HR: 81 RR: 18 BP: 168/80 SpO2: 97% Physical Exam Chart reviewed, patient examined. Patient is arousable with verbal stimulation, appears alert and oriented x3, appears mildly forgetful but FSC, drowsy, but does alert and converse with this RN, resting in bed. No c/o NVD, reports ongoing lack of appetite and decreased PO intake but denies nausea. Patient with 0 documented BMs in the last 24 hours. Denies SOB, reports occasional nonproductive cough. Denies chills or sweats. Reports mild tenderness to left hip/groin from procedure yesterday-ecchymosis noted. Reports lower back discomfort. No other new complaints this AM, patient reports she would really like to discharge home today as she will rest better at home, Respirations easy and nonlabored, 97% on NC2L. Patient has remained afebrile for the last 24 hours. 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, left groin/hip procedure site with ecchymosis and bloody drainage noted SHU INCISIONS/DRESSINGS: None EXTREMITIES: BUE skin discolorations/rash-chronic, generalized weakness/fatigue-improving, left groin ecchymosis/bloody drainage noted LINES/TUBES/DRAINS: RAC & RFA IV dressings dry & intact, scant sanguinous drainage, no erythema at sites CURRENT ANTIBIOTICS: Doxycycline 100mg IV Q12h 04/24 - 04/25 Rocephin 2g IV Q24h 04/24 - 04/28 CULTURE RESULTS/ILIR: 04/20 Urine Culture -F >100,000 cfu/ml Escherichia coli 04/23 Blood Cultures -F 10/22 Bottle: Escherichia coli &Escherichia coli #2 10/22 Botle: Escherichia coli 04/25 Blood Cultures 11/22 no growth to date -P 04/29 Culture Body Fluid (left hip) -P Unsedimented No organisms seen Culture Results Pending Weight Dosing Weight: 65.6 kg (04/24/24) Medications Medications (24) Active Scheduled: (14) apixaban 5 mg tablet 10 mg 2 tab(s), Oral, BID apixaban 5 mg tablet 5 mg 1 tab(s), Oral, BID atorvastatin 40 mg tablet 40 mg 1 tab(s), Oral, qHS calcium carbonate 1250 mg (500 mg calcium) tablet 1,250 mg 1 tab(s), Oral, qDay carvedilol 12.5 mg tablet 12.5 mg 1 tab(s), Oral, BIDM cefTRIAXone IVP syringe 2 gram(s) 20 mL, IV Push (INT), q24h cholecalciferol 125 mcg capsule (Vit D3 5000 unit(s)) 125 mcg 1 cap(s), Oral, qDay clopidogrel 75 mg Tablet 75 mg 1 tab(s), Oral, qDay cyanocobalamin 500 mcg Tablet 1,000 mcg 2 tab(s), Oral, qDay eszopiclone 3 mg tablet 3 mg 1 tab(s), Oral, qHS fluticasone nasal 0.05 mg/inh [place] 100 mcg 2 spray(s), Nostril, each, qDay losartan 50 mg tablet 50 mg 1 tab(s), Oral, qDay pantoprazole 40 mg VIAL 40 mg, IV Push, qDayAC traZODONE 50 mg Tablet 50 mg 1 tab(s), Oral, qHS Continuous: (0) PRN: (10) acetaminophen 325 mg Tablet 650 mg 2 tab(s), Oral, q4h acetaminophen-OXYcodone 325 mg-5 mg Tablet 2 tab(s), Oral, q4h albuterol - ipratropium 2.5 mg-0.5 mg/3 mL Inhal Laura UD 3 mL, Inhalation, q4hRT dextrose 50% Solution Disp syringe 50 mL 12.5 gram(s) 25 mL, IV Push, AsDirected hydromorphone 1 mg/mL (1mL) INJ 1 mg 1 mL, IV Push, q3h melatonin 3 mg tablet 3 mg 1 tab(s), Oral, qHS melatonin 3 mg tablet 3 mg 1 tab(s), Oral, qHS polyethylene glycol 3350 - UD packet 17 gram(s) 15 mL, Oral, qDay prochlorperazine 10 mg/2 mL vial 5 mg 1 mL, IV Push, q6hr trimethobenzamide 200 mg/2 mL Solution 200 mg 2 mL, Intramuscular, q6h Lab Results 04/29 05:25 WBC: 17.7 H Hgb: 10.2 L Hct: 30.6 L Platelet: 337 Glucose Level: 92 Sodium Level: 141 Potassium Level: 3.5 BUN: 9.0 Creatinine Lvl (s): 0.86 Imaging Results and Diagnostics IR Joint Aspiration Result Date: April 29, 2024 Verified By: CLINICAL STATEMENT: IMPRESSION: CT Abdomen/Pelvis w/Contrast Result Date: April 27, 2024 Verified By: LUIS CRUMP DO CLINICAL STATEMENT: IMPRESSION: 1. Intermediate fluid density cyst within the right renal midpole favored torepresent a complex cyst however evaluation is limited on this single phasestudy. No appreciable soft tissue component. No evidence of pyelonephritis.2. Left hip effusion with synovial enhancement. Cannot exclude septicarthritis. Consider fluid sampling.3. Small bilateral pleural effusions with adjacent atelectasis.4. Trace ascites.5. Stable intra and extrahepatic bile duct dilation.6. Sigmoid diverticulosis. XR Abdomen 2 Views w/ Decub/Erect Result Date: April 26, 2024 Verified By: REN SALCEDO DO CLINICAL STATEMENT: IMPRESSION: No evidence of bowel obstruction. US Renal Result Date: April 26, 2024 Verified By: REN SALCEDO DO CLINICAL STATEMENT: IMPRESSION: 1. New 3.1 cm isoechoic mass in the right kidney. This does not displaysignificant vascular flow. This may reflect a complex cyst, pyelonephritis,or a solid renal mass.2. Stable bilateral renal cysts. 04/24 TTE Summary: 1. Left ventricle: The cavity size is normal. Wall thickness is mildly increased. Systolic function is vigorous. The estimated ejection fraction is 65-70%. Wall motion is normal; there are no regional wall motion abnormalities. Normal diastolic function. 2. Ventricular septum: Thickness is mildly increased. 3. Aortic valve: There is moderate regurgitation. There is no holodiastolic reversal in descending and abdominal aorta. 4. Left atrium: The atrium is mildly dilated. 5. Right ventricle: The RV systolic pressure by Doppler is 38 mm Hg. 6. Right atrium: The estimated right atrial pressure is 15 mm Hg. Problem List 1. E. coli UTI 2. Bacteremia-E. coli 3. Acute PE 4. Acute hypoxic respiratory failure 5. CKD stage III 6. Transaminitis Digitally Signed by Lisa Jimenez RN on 04/30/2024 09:25 AM [facility] 04-30-2024 Infectious disease Progress note Date of Service 04/30/2024 Objective Vitals and Measurements T: 36.6 C (Oral) TMIN: 36.2 C (Axillary) TMAX: 36.7 C (Oral) HR: 81 RR: 18 BP: 168/80 SpO2: 97% Physical Exam Chart reviewed, patient examined. Patient is arousable with verbal stimulation, appears alert and oriented x3, appears mildly forgetful but FSC, drowsy, but does alert and converse with this RN, resting in bed. No c/o NVD, reports ongoing lack of appetite and decreased PO intake but denies nausea. Patient with 0 documented BMs in the last 24 hours. Denies SOB, reports occasional nonproductive cough. Denies chills or sweats. Reports mild tenderness to left hip/groin from procedure yesterday-ecchymosis noted. Reports lower back discomfort. No other new complaints this AM, patient reports she would really like to discharge home today as she will rest better at home, Respirations easy and nonlabored, 97% on NC2L. Patient has remained afebrile for the last 24 hours. 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, left groin/hip procedure site with ecchymosis and bloody drainage 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/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: None EXTREMITIES: BUE skin discolorations/rash-chronic, generalized weakness/fatigue-improving, left groin ecchymosis/bloody drainage noted LINES/TUBES/DRAINS: RAC & RFA IV dressings dry & intact, scant sanguinous drainage, no erythema at sites CURRENT ANTIBIOTICS: Doxycycline 100mg IV Q12h 04/24 - 04/25 Rocephin 2g IV Q24h 04/24 - 04/28 CULTURE RESULTS/ILIR: 04/20 Urine Culture -F >100,000 cfu/ml Escherichia coli 04/23 Blood Cultures -F 10/22 Bottle: Escherichia coli &Escherichia coli #2 10/22 Botle: Escherichia coli 04/25 Blood Cultures 11/22 no growth to date -P 04/29 Culture Body Fluid (left hip) -P Unsedimented No organisms seen Culture Results Pending Weight Dosing Weight: 65.6 kg (04/24/24) Medications Medications (24) Active Scheduled: (14) apixaban 5 mg tablet 10 mg 2 tab(s), Oral, BID apixaban 5 mg tablet 5 mg 1 tab(s), Oral, BID atorvastatin 40 mg tablet 40 mg 1 tab(s), Oral, qHS calcium carbonate 1250 mg (500 mg calcium) tablet 1,250 mg 1 tab(s), Oral, qDay carvedilol 12.5 mg tablet 12.5 mg 1 tab(s), Oral, BIDM cefTRIAXone IVP syringe 2 gram(s) 20 mL, IV Push (INT), q24h cholecalciferol 125 mcg capsule (Vit D3 5000 unit(s)) 125 mcg 1 cap(s), Oral, qDay clopidogrel 75 mg Tablet 75 mg 1 tab(s), Oral, qDay cyanocobalamin 500 mcg Tablet 1,000 mcg 2 tab(s), Oral, qDay eszopiclone 3 mg tablet 3 mg 1 tab(s), Oral, qHS fluticasone nasal 0.05 mg/inh [place] 100 mcg 2 spray(s), Nostril, each, qDay losartan 50 mg tablet 50 mg 1 tab(s), Oral, qDay pantoprazole 40 mg VIAL 40 mg, IV Push, qDayAC traZODONE 50 mg Tablet 50 mg 1 tab(s), Oral, qHS Continuous: (0) PRN: (10) acetaminophen 325 mg Tablet 650 mg 2 tab(s), Oral, q4h acetaminophen-OXYcodone 325 mg-5 mg Tablet 2 tab(s), Oral, q4h albuterol - ipratropium 2.5 mg-0.5 mg/3 mL Inhal Laura UD 3 mL, Inhalation, q4hRT dextrose 50% Solution Disp syringe 50 mL 12.5 gram(s) 25 mL, IV Push, AsDirected hydromorphone 1 mg/mL (1mL) INJ 1 mg 1 mL, IV Push, q3h melatonin 3 mg tablet 3 mg 1 tab(s), Oral, qHS melatonin 3 mg tablet 3 mg 1 tab(s), Oral, qHS polyethylene glycol 3350 - UD packet 17 gram(s) 15 mL, Oral, qDay prochlorperazine 10 mg/2 mL vial 5 mg 1 mL, IV Push, q6hr trimethobenzamide 200 mg/2 mL Solution 200 mg 2 mL, Intramuscular, q6h Lab Results 04/29 05:25 WBC: 17.7 H Hgb: 10.2 L Hct: 30.6 L Platelet: 337 Glucose Level: 92 Sodium Level: 141 Potassium Level: 3.5 BUN: 9.0 Creatinine Lvl (s): 0.86 Imaging Results and Diagnostics IR Joint Aspiration Result Date: April 29, 2024 Verified By: CLINICAL STATEMENT: IMPRESSION: CT Abdomen/Pelvis w/Contrast Result Date: April 27, 2024 Verified By: LUIS CRUMP DO CLINICAL STATEMENT: IMPRESSION: 1. Intermediate fluid density cyst within the right renal midpole favored torepresent a complex cyst however evaluation is limited on this single phasestudy. No appreciable soft tissue component. No evidence of pyelonephritis.2. Left hip effusion with synovial enhancement. Cannot exclude septicarthritis. Consider fluid sampling.3. Small bilateral pleural effusions with adjacent atelectasis.4. Trace ascites.5. Stable intra and extrahepatic bile duct dilation.6. Sigmoid diverticulosis. XR Abdomen 2 Views w/ Decub/Erect Result Date: April 26, 2024 Verified By: REN SALCEDO DO CLINICAL STATEMENT: IMPRESSION: No evidence of bowel obstruction. US Renal Result Date: April 26, 2024 Verified By: REN SALCEDO DO CLINICAL STATEMENT: IMPRESSION: 1. New 3.1 cm isoechoic mass in the right kidney. This does not displaysignificant vascular flow. This may reflect a complex cyst, pyelonephritis,or a solid renal mass.2. Stable bilateral renal cysts. 04/24 TTE Summary: 1. Left ventricle: The cavity size is normal. Wall thickness is mildly increased. Systolic function is vigorous. The estimated ejection fraction is 65-70%. Wall motion is normal; there are no regional wall motion abnormalities. Normal diastolic function. 2. Ventricular septum: Thickness is mildly increased. 3. Aortic valve: There is moderate regurgitation. There is no holodiastolic reversal in descending and abdominal aorta. 4. Left atrium: The atrium is mildly dilated. 5. Right ventricle: The RV systolic pressure by Doppler is 38 mm Hg. 6. Right atrium: The estimated right atrial pressure is 15 mm Hg. Problem List 1. E. coli UTI 2. Bacteremia-E. coli 3. Acute PE 4. Acute hypoxic respiratory failure 5. CKD stage III 6. Transaminitis Digitally Signed by Lisa Jimenez RN on 04/30/2024 09:25 AM [facility] 04-30-2024 Orthopaedic surgery Progress note Date of Service 04/30/2024 Orthopedic Surgery has reviewed body fluid cultures. There is no growth to date. WBC count of the body fluid was 270. There is no concern for septic joint infection. Orthopedics to sign off at this time. Continue symptomatic treatment. Continue PT/OT for mobilization. Patient will follow up with Dr. Eddy or [facility] for further evaluation and management of her left hip avascular necrosis. Thank you for allowing me to participate in this patient's care Digitally Signed by BIB ARTIS DO on 04/30/2024 07:13 AM [facility] 04-30-2024 Orthopaedic surgery Progress note Date of Service 04/30/2024 Orthopedic Surgery has reviewed body fluid cultures. There is no growth to date. WBC count of the body fluid was 270. There is no concern for septic joint infection. Orthopedics to sign off at this time. Continue symptomatic treatment. Continue PT/OT for mobilization. Patient will follow up with Dr. Eddy or [facility] for further evaluation and management of her left hip avascular necrosis. Thank you for allowing me to participate in this patient's care Digitally Signed by BIB ARTIS DO on 04/30/2024 07:13 AM [facility] 04-30-2024 Orthopaedic surgery Progress note Date of Service 04/30/2024 Orthopedic Surgery has reviewed body fluid cultures. There is no growth to date. WBC count of the body fluid was 270. There is no concern for septic joint infection. Orthopedics to sign off at this time. Continue symptomatic treatment. Continue PT/OT for mobilization. Patient will follow up with Dr. Eddy or [facility] for further evaluation and management of her left hip avascular necrosis. Thank you for allowing me to participate in this patient's care Digitally Signed by BIB ARTIS DO on 04/30/2024 07:13 AM [facility] 04-30-2024 Note . MICRO - Microbiology PROCEDURE: Blood Culture (bacterial) [*1] SOURCE: Blood BODY SITE: COLLECTED DATE/TIME: 04/25/2024 02:44 EDT RECEIVED DATE/TIME: 04/25/2024 03:29 EDT START DATE/TIME: 04/25/2024 03:29 EDT FREE TEXT SOURCE: FINAL REPORTS Final Report [] Verified Date/Time/Personnel: 04/30/2024 03:59 EDT Blood Culture: No Growth at 5 days. PRELIMINARY REPORTS Preliminary Report [] Verified Date/Time/Personnel: 04/25/2024 04:59 EDT Culture has been received in lab and is no growth to date. Routine cultures are held for 5 days. Performing Locations *1: This test was performed at: [facility], [address] [place] [address], [id number] , [facility] ([place]) 04-30-2024 Note . MICRO - Microbiology PROCEDURE: Blood Culture (bacterial) [*1] SOURCE: Blood BODY SITE: COLLECTED DATE/TIME: 04/25/2024 02:45 EDT RECEIVED DATE/TIME: 04/25/2024 03:29 EDT START DATE/TIME: 04/25/2024 03:29 EDT FREE TEXT SOURCE: FINAL REPORTS Final Report [] Verified Date/Time/Personnel: 04/30/2024 03:59 EDT Blood Culture: No Growth at 5 days. PRELIMINARY REPORTS Preliminary Report [] Verified Date/Time/Personnel: 04/25/2024 04:59 EDT Culture has been received in lab and is no growth to date. Routine cultures are held for 5 days. Performing Locations *1: This test was performed at: [facility], [address] [place] [address], [facility] , [facility] ([place]) 04-29-2024 Procedure note IR Brief Post Procedure Note Preprocedure Dx: left hip pain Post Procedure Dx: Same Procedure: LEFT hip aspiration Anesthesia: Local EBL: Minimal Complications: None Status: Unchanged Findings: 1. Successful LEFT hip aspiration. Collected 20mL cloudy yellow synovial fluid. Plan: 1. Synovial fluid sent to lab. Full report to follow. Samantha Gil PA-C Interventional Radiology Pager: [phone] IR dept: [id number] Available on [employer] Digitally Signed by SAMANTHA GIL PA-C on 04/29/2024 01:52 PM [facility] 04-29-2024 Note IR Procedure Record Summary Primary Physician: SAMANTHA GIL PA-C Finalized Date/Time: 04/29/24 13:51:11 Pt. Name: HERB VALDES/Sex: 1955 Female Med Rec #: [id number] Physician: CRISTIAN SOTO MD Financial #: [id number] Pt. Type: I Room/Bed: 66/A Admit/Disch: 04/24/24 04:02:00 - Institution: Allergies identified in patient's electronic medical record at time of printing on 04/29/24 Entry 1 Entry 2 Entry 3 Substance Ultram codeine lisinopril Reaction Type Allergy Allergy Allergy Last Modified By: MARCK Beltrán Sharri Pena LPN 03/23/14 13:50:14 03/23/14 13:49:49 07/17/19 16:30:55 Entry 4 Substance traMADol Reaction Type Allergy Last Modified By: Litzy Escobar 07/08/20 10:41:33 Case Attendance- IR Entry 1 Entry 2 Entry 3 Case Attendee SAMANTHA GIL PA-C, Kelsey Leggett, Brandon L Role Performed Primary Surgeon Scrub Technologist Circulating Technologist Details Time In 04/29/24 13:29:00 04/29/24 13:29:00 04/29/24 13:29:00 Time Out 04/29/24 13:51:00 04/29/24 13:51:00 04/29/24 13:51:00 Procedure/Preference IR Joint Aspiration (SN) IR Joint Aspiration (SN) IR Joint Aspiration (SN) Card Last Modified By: MARCK Pitts RN Corey Snider, RN Corey 04/29/24 13:49:07 04/29/24 13:49:07 04/29/24 13:49:07 Entry 4 Entry 5 Case Attendee Shonna Martel RN Corey Tech Role Performed Circulating Technologist Clinical Support Tech 1 Details Time In 04/29/24 13:29:00 04/29/24 13:29:00 Time Out 04/29/24 13:51:00 04/29/24 13:51:00 Procedure/Preference IR Joint Aspiration (SN) IR Joint Aspiration (SN) Card Last Modified By: MARCK Pitts RN Corey 04/29/24 13:49:07 04/29/24 13:49:07 Radiology Procedures- IR Entry 1 Procedure/Preference IR Joint Aspiration (SN) Actual Procedure Left hip aspiration Card Primary Procedure Yes Primary Surgeon SAMANTHA GIL PA-C Anesthesia/Sedation Local Type Additional Procedure Times Start 04/29/24 13:42:00 Stop 04/29/24 13:48:00 Specialty Service SN Radiology Procedure EBL 0 mL Last Modified By: MARCK Pitts 04/29/24 13:49:11 Radiology Procedure Details - IR Entry 1 Radiology Sedation Case Times Sedation Total Time 0 Radiology - Fluid/Drainage Radiology Contrast Contrast Used? No Radiology Flouroscopy Fluoroscopy Used? Yes Fluoro Dose (mGy) 1 Fluoro Time 0.2min Radiology Local Local Used? Yes Local Type: lidocaine 2% Local Dose 7ml Radiology Procedure Site Site/Location left hip Site Condition No complications Dressing Type Bandaids Technologist Notes 20ml cloudy , yellow synovial fluid collected Last Modified By: MARCK Pitts 04/29/24 13:50:17 Cultures and Specimens- IR Entry 1 Kind Specimen Type Fluid Date/Time 04/29/24 13:44:00 Source left hip joint Comments 20ml cloudy, ye;;ow Last Modified By: MARCK Pitts 04/29/24 13:46:54 General Case Data - IR Entry 1 Case Information Room AH IR 18 Case Level IR Level 1 Wound Class None Specialty SN Radiology Procedure ASA Class None Diagnosis Preop Diagnosis pe, nstemi, uti, Postop Same As Preop Yes pneumonia Postop Diagnosis pe, nstemi, uti, pneumonia Last Modified By: MARCK Pitts 04/29/24 13:47:36 Procedure Case Times- IR Entry 1 Patient In Procedure Patient In OR 04/29/24 13:29:00 Patient Out of OR 04/29/24 13:51:00 Procedure Start/Stop Procedure Start Time 04/29/24 13:42:00 Procedure Stop Time 04/29/24 13:48:00 Last Modified By: MARCK Pitts 04/29/24 13:49:05 Immediate Post Procedure Note - IR Entry 1 Immediate Post Yes Findings LEFT hip aspiration Procedure Note displayed for Physician to review Closure Technique Closure Technique Other than Primary Last Modified By: MARCK Pitts 04/29/24 13:47:01 Immediate Post Procedure Note - IR Signed By: SAMANTHA GIL PA-C 04/29/24 13:45 Allergy Information- IR Entry 1 Allergies Reviewed? Yes Allergies Reviewed Patient With Last Modified By: MARCK Pitts 04/29/24 13:40:31 Radiology Protocols/Time Out- IR Entry 1 Preprocedure Clinician Verifies Correct patient ID When Clinically Confirmation of correct using name & date Indicated side(s) and site(s), or MRN, Accurate Correct diagnostic and procedure, complete radiology tests Informed Consent, H & P available, Required update immediately blood products, prior to procedure, if implants, devices applicable and/or special equipment available OR/Procedure Room/Bedside Time 04/29/24 13:42:00 Clinician Verifies Correct patient identity including EMR & records using name and date or medical record number, Accurate procedure consent form, Correct patient position, Necessary equipment is available, Anticipated non-routine events with surgical team (case duration, estimated blood loss, patient specific concerns)., [place] patient factors for recovery and management identified with surgical team. When Applicable Confirmation correct Team Members SAMANTHA GIL PA-C, side and site marked, Present for Time Out Jolly Dutta Leggett, Relevant images and Delonte Aguilar, results are properly Shonna Goowy, labeled and MARCK Pitts appropriately displayed, Alcohol based prep dry, Double verification of sterility indicators complete Instrument Sterility Team Members SAMANTHA GIL PA-C, Verifying Sterility Jolly Dutta Procedure IR Joint Aspiration (SN) Last Modified By: MARCK Pitts 04/29/24 13:42:49 Skin Prep- IR Entry 1 Procedure IR Joint Aspiration (SN) Skin Prep Prep Area Hip Side Left, Anterior By Jolly Dutta Prep Agents Chloraprep Hair Removal Method N/A Last Modified By: MARCK Pitts 04/29/24 13:43:18 Patient Positioning- IR Entry 1 Procedure IR Joint Aspiration (SN) Body Position OP Supine Feet Uncrossed? Yes Pressure Points Yes Checked Last Modified By: MARCK Pitts 04/29/24 13:43:26 Radiology Procedure Plan - IR Entry 1 Radiology - Nursing Care Plan Outcome Statement The patient Outcome Statement The patient receives demonstrates knowledge Cont. appropriate of the expected medication(s), safely responses to the administered during the operative/invasive perioperative/invasive procedure., The period., The patient is patient's value system, free from signs and lifestyle, ethnicity, symptoms of injury and culture are caused by extraneous considered, respected, objects (equipment, and incorporated in the instrumentation, perioperative plan of sponges, or sharps). care., The patient is free from signs and symptoms of infection., The patient is free from signs and symptoms of injury related to positioning. Radiology - Action Plan Outcomes Met? Yes [employer] MARCK Pitts Completing Procedure Plan Last Modified By: MARCK Pitts 04/29/24 13:47:14 Case Comments Finalized By: MARCK Pitts Document Signatures Signed By: MARCK Pitts 04/29/24 13:51 [facility] [place] 04-29-2024 Note Subjective: Patient seen for acute pulmonary emboli, pyelonephritis, bacteremia patient was examined and evaluated today, patient denies chest pain, no shortness of breath, no cough, no fever or chills, still complaining of abdominal discomfort, the pain in the left hip area has improved, patient is tolerating diet fairly well, no nausea or vomiting, bowels are moving, patient stated that she feels a little bit better compared to yesterday Vitals Signs(Last 24 hrs)__Last Charted Minimum Max imum Temp36.7(APR 29:)36.7(APR 29:)36.7(APR 28:) SBPH 169(APR 29)H 166(APR 28:)H 169(APR 29) DBP70(APR 29)70(APR 29:)73(APR 28:) Physical examination: HEENT, is atraumatic normocephalic, pupils are equal, no pallor Neck supple no JVD Lungs clear to auscultation bilaterally, no wheezes, no rhonchi, no accessory muscle use Heart S1-S2 regular Abdomen soft nontender nondistended bowel sounds are present all 4 quadrants Lower extremities show no edema, no cyanosis, pulses palpable +2 bilaterally Skin showed no rash Neurological examination patient is awake alert and oriented 3, cranial nerves are grossly intact, no focal neurological defect could be appreciated Assessment and plan: 1. Acute hypoxic respiratory failure secondary to acute PE, improving. 2. Acute pulmonary emboli. 3. E. coli UTI. 4. Pyelonephritis. 5. Complex right renal cyst. 6. Bacteremia with E. coli. 7. Chronic kidney disease stage III. 8. Acute over chronic anemia. 9. Acute hyponatremia, resolved. 10. Left hip osteoarthritis with left hip effusion. 11. Sigmoid diverticulosis. Plan: 1. Continue with IV antibiotics, will follow further recommendations from infectious disease team. 2. Orthopedic team has evaluated the patient for the left hip effusion indicated that the patient has avascular necrosis, recommended IR aspiration and culture and Gram stain., 3. Continue to monitor patient clinically as well as her labs Patient understood her plan of care all questions were answered, all concerns were addressed, again today I did speak to her daughter, I updated her about the patient's condition all her questions were answered. Labs: Basic Metabolic Profile Glucose Level: 92 mg/dL (04/29/24 05:25:00) Sodium Level: 141 mEq/L (04/29/24 05:25:00) Potassium Level: 3.5 mEq/L (04/29/24 05:25:00) Chloride: 108 mEq/L (04/29/24 05:25:00) CO2: 27 mEq/L (04/29/24 05:25:00) BUN/Creatinine Ratio: 10.5 ratio (04/29/24 05:25:00) Complete Blood Count WBC: 17.7 10^3/mcL High (04/29/24 05:25:00) RBC: 3.23 10^6/mcL Low (04/29/24 05:25:00) Hgb: 10.2 G/dL Low (04/29/24 05:25:00) Hct: 30.6 % Low (04/29/24 05:25:00) MCV: 94.7 fL (04/29/24 05:25:00) MCH: 31.5 pg (04/29/24 05:25:00) MCHC: 33.3 G/dL (04/29/24 05:25:00) RDW: 17.3 % High (04/29/24 05:25:00) Platelet: 337 10^3/mcL (04/29/24 05:25:00) MPV: 9 fL (04/29/24 05:25:00) Medications (22) Active Scheduled: (12) apixaban 5 mg tablet 10 mg 2 tab(s), Oral, BID apixaban 5 mg tablet 5 mg 1 tab(s), Oral, BID atorvastatin 40 mg tablet 40 mg 1 tab(s), Oral, qHS calcium carbonate 1250 mg (500 mg calcium) tablet 1,250 mg 1 tab(s), Oral, qDay carvedilol 12.5 mg tablet 12.5 mg 1 tab(s), Oral, BIDM cholecalciferol 125 mcg capsule (Vit D3 5000 unit(s)) 125 mcg 1 cap(s), Oral, qDay clopidogrel 75 mg Tablet 75 mg 1 tab(s), Oral, qDay cyanocobalamin 500 mcg Tablet 1,000 mcg 2 tab(s), Oral, qDay eszopiclone 3 mg tablet 3 mg 1 tab(s), Oral, qHS fluticasone nasal 0.05 mg/inh [place] 100 mcg 2 spray(s), Nostril, each, qDay pantoprazole 40 mg VIAL 40 mg, IV Push, qDayAC traZODONE 50 mg Tablet 50 mg 1 tab(s), Oral, qHS Continuous: (0) PRN: (10) acetaminophen 325 mg Tablet 650 mg 2 tab(s), Oral, q4h acetaminophen-OXYcodone 325 mg-5 mg Tablet 2 tab(s), Oral, q4h albuterol - ipratropium 2.5 mg-0.5 mg/3 mL Inhal Laura UD 3 mL, Inhalation, q4hRT dextrose 50% Solution Disp syringe 50 mL 12.5 gram(s) 25 mL, IV Push, AsDirected hydromorphone 1 mg/mL (1mL) INJ 1 mg 1 mL, IV Push, q3h melatonin 3 mg tablet 3 mg 1 tab(s), Oral, qHS melatonin 3 mg tablet 3 mg 1 tab(s), Oral, qHS polyethylene glycol 3350 - UD packet 17 gram(s) 15 mL, Oral, qDay prochlorperazine 10 mg/2 mL vial 5 mg 1 mL, IV Push, q6hr trimethobenzamide 200 mg/2 mL Solution 200 mg 2 mL, Intramuscular, q6h Signature: Ryan Campbell MD Digitally Signed by RYAN CAMPBELL MD on 04/29/2024 01:20 PM [facility] [place] 04-29-2024 Orthopaedic surgery Consult note Date of Service 04/28/2024 Reason for Consultation Left hip CT findings Referring Physician ID History of Present Illness Patient is a 68-year-old female who presents to [facility] [place] for other medical conditions, however was noted to have avascular necrosis on CT scan of her left hip. Orthopedics consulted. Patient seen and examined at bedside. She reports her left hip has been hurting for about 6 months. She reports no inciting injury or trauma to the left hip. She reports that it continue to progress in severity. She reports she does not walk with a cane or walker, and has been walking on the hip as recently as today without too much issue. She reports pain with ambulation. Pt provides she was able to work with PT today and that she just use the restroom prior to our arrival. She notes that she has seen Dr. Eddy for this issue in October 2023 as well as multiple times in the emergency department for similar complaint. She notes that she was told that she would need a left total hip replacement and that her pain improved with rest or time. She reports no trauma to the hip. No recent falls. Reports she lives at home. Has assistance at home. Reports no orthopedic history about the left lower extremity. Reports no other needs at this time. Reports no history of steroid use, thyroid issues, anemia, diabetes, sickle cell. Review of Systems Pertinent positives and negative were listed above. All other systems reviewed were negative. Physical Exam Vitals and Measurements T: 36.7 C (Oral) TMIN: 36.3 C (Oral) TMAX: 36.7 C (Oral) HR: 79 RR: 20 BP: 166/73 SpO2: 94% Weight Dosing Weight: 65.6 kg (04/24/24) General: NAD, A&Ox3 HEENT: normocephalic, atraumatic, EOMI intact CV: pulses regular throughout, brisk cap refill throughout, Pulm: normal work of breathing, equal chest rise bilaterally, no intercostal retractions or conversational dyspnea GI: abdomen is soft, nontender, nondistended, no rigidity or guarding Psych: calm and cooperative Left lower extremity: -Skin pink and well perfused -Sensation intact to light touch L3-S1 -Gross motor function intact to dorsi/plantarflexion of ankle and toes -DP, TP pulses palpable -Compartments are soft and compressible -No calf tenderness Lab Results 04/28 05:03 WBC: 19.4 H Hgb: 9.2 L Hct: 27.2 L Platelet: 318 Glucose Level: 75 L Sodium Level: 141 Potassium Level: 3.6 BUN: 10.0 Creatinine Lvl (s): 0.93 04/27 04:55 WBC: 22.3 H Hgb: 8.3 L Hct: 25.1 L Platelet: 298 Glucose Level: 81 L Sodium Level: 138 Potassium Level: 3.6 BUN: 13.0 Creatinine Lvl (s): 0.96 Imaging Results and Diagnostics I independently reviewed the following imaging: CT Abdomen and Pelvis: There is AVN of the left femoral head with subchondral collapse and fragmentation. There is an associated minimal fluid collection surrounding the femoral head/neck. Assessment/Plan 1. Left hip avascular necrosis -Orthopedic consultation performed on 04/25 for left hip AVN, patient had effusion at that time on CT scan as well on 04/16 - Repeat CT scan yesterday demonstrating the same without any significant changes - No acute surgical intervention from orthopedic surgery. - Patient needs a total hip arthroplasty in an outpatient setting. She is established with Dr. Eddy at [facility] - Weightbearing as tolerated, PT OT as able - Infectious disease concern for infectious hip. Will order IR aspiration with culture and gram stain. -Orthopedics will follow in the periphery. Otherwise patient should follow-up outpatient with her established orthopedic surgeon. Discussed with Dr. [facility] to sign off, please page with further concerns Problem List/Past Medical History Ongoing Anemia B12 deficiency anemia Bronchitis CABG - Coronary artery bypass graft CAD - Coronary artery disease Carotid stenosis, bilateral CKD (chronic kidney disease) Constipation Cystocele with prolapse Depression Glasses Headache Heart disease High risk medication use History of carotid endarterectomy History of PTCA Hx of CABG Hypertension HYPERTENSION, ESSENTIAL Insomnia Irritable bowel syndrome Lipoma Medicare annual wellness visit, subsequent Nephrolithiasis Osteoarthritis Osteopenia of femoral neck Preop cardiovascular exam S/P PTCA (PERCUTANEOUS TRANSLUMINAL CORONARY ANGIOPLASTY) Seasonal allergy SOB (shortness of breath) Spasm of back muscles Thoracic outlet syndrome Historical Bowel obstruction Chest pain in adult Insomnia Procedure/Surgical History Cardiac catheterization: 03/11/23 Endarterectomy: 01/04/20 Nerve conduction study: 02/06/17 Duplex ultrasound, carotid: 11/14/16 Lithotripsy: 2007 CABG x 1 - Coronary artery bypass graft x 1 Colonoscopy Abdominal hysterectomy section Cholecystectomy Carotid artery Medications Inpatient atorvastatin, 40 mg= 1 tab(s), Oral, qHS calcium carbonate, 1250 mg= 1 tab(s), Oral, qDay carvedilol 12.5 mg oral tablet, 12.5 mg= 1 tab(s), Oral, BIDM clopidogrel, 75 mg= 1 tab(s), Oral, qDay Compazine, 5 mg= 1 mL, IV Push, q6hr, PRN Dextrose 50% IV Push, 12.5 gram(s)= 25 mL, IV Push, AsDirected, PRN Dilaudid, 1 mg= 1 mL, IV Push, q3h, PRN DuoNeb, 3 mL, Inhalation, q4hRT, PRN Eliquis, 10 mg= 2 tab(s), Oral, BID Eliquis, 5 mg= 1 tab(s), Oral, BID eszopiclone, 3 mg= 1 tab(s), Oral, qHS fluticasone 50 mcg/inh NASAL spray, 100 mcg= 2 spray(s), Nostril, each, qDay melatonin, 3 mg= 1 tab(s), Oral, qHS, PRN melatonin, 3 mg= 1 tab(s), Oral, qHS, PRN Miralax Powder Packet, 17 gram(s)= 15 mL, Oral, qDay, PRN pantoprazole IV Push, 40 mg, IV Push, qDayAC Percocet 325/5, 2 tab(s), Oral, q4h, PRN Rocephin, 2 gram(s)= 20 mL, IV Push (INT), qDay Tigan, 200 mg= 2 mL, Intramuscular, q6h, PRN traZODone, 50 mg= 1 tab(s), Oral, qHS Tylenol, 650 mg= 2 tab(s), Oral, q4h, PRN Vitamin B12, 1000 mcg= 2 tab(s), Oral, qDay Vitamin D3 125 mcg (5000 intl units) oral capsule, 125 mcg= 1 cap(s), Oral, qDay Home aspirin 81 mg oral tablet, chewable, 81 mg= 1 tab(s), Oral, Daily, 11 refills atorvastatin 40 mg oral tablet, 40 mg= 1 tab(s), Oral, qHS, 3 refills calcium (as carbonate) 600 mg oral tablet, 1200 mg= 2 tab(s), Oral, qDay, PRN carvedilol 12.5 mg oral tablet, 12.5 mg= 1 tab(s), Oral, BIDM clobetasol 0.05% topical cream, 1 juli, Topical, BID, 3 refills, Not taking clopidogrel 75 mg oral tablet, 75 mg= 1 tab(s), Oral, qDay, 3 refills DULoxetine 60 mg oral delayed release capsule, 60 mg= 1 cap(s), Oral, qDay, 3 refills eszopiclone 3 mg oral tablet, 3 mg= 1 tab(s), Oral, qHS fluticasone 50 mcg/inh NASAL spray, 100 mcg= 2 spray(s), Nostril, each, qDay MiraLax oral powder for reconstitution, 17 gram(s), Oral, qDay ondansetron 4 mg oral tablet, disintegrating, 4 mg= 1 tab(s), Oral, q6hr, PRN traZODone 50 mg oral tablet, 50 mg= 1 tab(s), Oral, qHS, 3 refills Tylenol Extra Strength 500 mg oral tablet, 1000 mg= 2 tab(s), Oral, QID, PRN Vitamin B12 500 mcg oral tablet, 1000 mcg= 2 tab(s), Oral, qDay, 3 refills Vitamin D3 125 mcg (5000 intl units) oral capsule, 125 mcg= 1 cap(s), Oral, qDay Allergies Ultram confusion codeine nausea lisinopril Cough traMADol Unknown Social History Smoking Status - 07/09/2018 Never smoker Alcohol - Denies Alcohol Use, 07/09/2018 Use: Never., 07/17/2019 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 Appetite Good. Eating Difficulties None. Caffeine intake amount: None., 05/01/2022 Substance Abuse - Denies Substance Abuse, 07/09/2018 Use: Never., 07/17/2019 Tobacco Nicotine Use: Former smoker, quit more than 30 days ago., 12/06/2022 Family History Cancer: Father, Sister and Brother. Heart disease: Mother, Sister and Brother. Health Status Family Member(s) Immunizations pneumococcal 13-valent conjugate vaccine: 0.5 unknown unit (06/19/18) pneumococcal 13-valent conjugate vaccine: 0 unknown unit (10/21/12) pneumococcal 23-valent vaccine(Pneumovax: 0 unknown unit (09/19/12) SARS-CoV-2 mRNA (tozinameran) vaccine: 0.3 unknown unit (07/31/21) SARS-CoV-2 mRNA (tozinameran) vaccine: 0.3 unknown unit (11/22/20) SARS-CoV-2 mRNA (tozinameran) vaccine: 0.3 unknown unit (11/01/20) tetanus/diphth/pertuss (Tdap) adult/adol: 0.5 mL (03/03/24) zoster vaccine live: 0 unknown unit (04/14/16) zoster vaccine live: 0 unknown unit (09/19/14) Digitally Signed by BIB ARTIS DO on 04/28/2024 04:58 PM [facility] [place] 04-28-2024 Orthopaedic surgery Consult note Date of Service 04/28/2024 Reason for Consultation Left hip CT findings Referring Physician ID History of Present Illness Patient is a 68-year-old female who presents to [facility] [place] for other medical conditions, however was noted to have avascular necrosis on CT scan of her left hip. Orthopedics consulted. Patient seen and examined at bedside. She reports her left hip has been hurting for about 6 months. She reports no inciting injury or trauma to the left hip. She reports that it continue to progress in severity. She reports she does not walk with a cane or walker, and has been walking on the hip as recently as today without too much issue. She reports pain with ambulation. Pt provides she was able to work with PT today and that she just use the restroom prior to our arrival. She notes that she has seen Dr. Eddy for this issue in October 2023 as well as multiple times in the emergency department for similar complaint. She notes that she was told that she would need a left total hip replacement and that her pain improved with rest or time. She reports no trauma to the hip. No recent falls. Reports she lives at home. Has assistance at home. Reports no orthopedic history about the left lower extremity. Reports no other needs at this time. Reports no history of steroid use, thyroid issues, anemia, diabetes, sickle cell. Review of Systems Pertinent positives and negative were listed above. All other systems reviewed were negative. Physical Exam Vitals and Measurements T: 36.7 C (Oral) TMIN: 36.3 C (Oral) TMAX: 36.7 C (Oral) HR: 79 RR: 20 BP: 166/73 SpO2: 94% Weight Dosing Weight: 65.6 kg (04/24/24) General: NAD, A&Ox3 HEENT: normocephalic, atraumatic, EOMI intact CV: pulses regular throughout, brisk cap refill throughout, Pulm: normal work of breathing, equal chest rise bilaterally, no intercostal retractions or conversational dyspnea GI: abdomen is soft, nontender, nondistended, no rigidity or guarding Psych: calm and cooperative Left lower extremity: -Skin pink and well perfused -Sensation intact to light touch L3-S1 -Gross motor function intact to dorsi/plantarflexion of ankle and toes -DP, TP pulses palpable -Compartments are soft and compressible -No calf tenderness Lab Results 04/28 05:03 WBC: 19.4 H Hgb: 9.2 L Hct: 27.2 L Platelet: 318 Glucose Level: 75 L Sodium Level: 141 Potassium Level: 3.6 BUN: 10.0 Creatinine Lvl (s): 0.93 04/27 04:55 WBC: 22.3 H Hgb: 8.3 L Hct: 25.1 L Platelet: 298 Glucose Level: 81 L Sodium Level: 138 Potassium Level: 3.6 BUN: 13.0 Creatinine Lvl (s): 0.96 Imaging Results and Diagnostics I independently reviewed the following imaging: CT Abdomen and Pelvis: There is AVN of the left femoral head with subchondral collapse and fragmentation. There is an associated minimal fluid collection surrounding the femoral head/neck. Assessment/Plan 1. Left hip avascular necrosis -Orthopedic consultation performed on 04/25 for left hip AVN, patient had effusion at that time on CT scan as well on 04/16 - Repeat CT scan yesterday demonstrating the same without any significant changes - No acute surgical intervention from orthopedic surgery. - Patient needs a total hip arthroplasty in an outpatient setting. She is established with Dr. Eddy at [facility] - Weightbearing as tolerated, PT OT as able - Infectious disease concern for infectious hip. Will order IR aspiration with culture and gram stain. -Orthopedics will follow in the periphery. Otherwise patient should follow-up outpatient with her established orthopedic surgeon. Discussed with Dr. [facility] to sign off, please page with further concerns Problem List/Past Medical History Ongoing Anemia B12 deficiency anemia Bronchitis CABG - Coronary artery bypass graft CAD - Coronary artery disease Carotid stenosis, bilateral CKD (chronic kidney disease) Constipation Cystocele with prolapse Depression Glasses Headache Heart disease High risk medication use History of carotid endarterectomy History of PTCA Hx of CABG Hypertension HYPERTENSION, ESSENTIAL Insomnia Irritable bowel syndrome Lipoma Medicare annual wellness visit, subsequent Nephrolithiasis Osteoarthritis Osteopenia of femoral neck Preop cardiovascular exam S/P PTCA (PERCUTANEOUS TRANSLUMINAL CORONARY ANGIOPLASTY) Seasonal allergy SOB (shortness of breath) Spasm of back muscles Thoracic outlet syndrome Historical Bowel obstruction Chest pain in adult Insomnia Procedure/Surgical History Cardiac catheterization: 03/11/23 Endarterectomy: 01/04/20 Nerve conduction study: 02/06/17 Duplex ultrasound, carotid: 11/14/16 Lithotripsy: 2007 CABG x 1 - Coronary artery bypass graft x 1 Colonoscopy Abdominal hysterectomy section Cholecystectomy Carotid artery Medications Inpatient atorvastatin, 40 mg= 1 tab(s), Oral, qHS calcium carbonate, 1250 mg= 1 tab(s), Oral, qDay carvedilol 12.5 mg oral tablet, 12.5 mg= 1 tab(s), Oral, BIDM clopidogrel, 75 mg= 1 tab(s), Oral, qDay Compazine, 5 mg= 1 mL, IV Push, q6hr, PRN Dextrose 50% IV Push, 12.5 gram(s)= 25 mL, IV Push, AsDirected, PRN Dilaudid, 1 mg= 1 mL, IV Push, q3h, PRN DuoNeb, 3 mL, Inhalation, q4hRT, PRN Eliquis, 10 mg= 2 tab(s), Oral, BID Eliquis, 5 mg= 1 tab(s), Oral, BID eszopiclone, 3 mg= 1 tab(s), Oral, qHS fluticasone 50 mcg/inh NASAL spray, 100 mcg= 2 spray(s), Nostril, each, qDay melatonin, 3 mg= 1 tab(s), Oral, qHS, PRN melatonin, 3 mg= 1 tab(s), Oral, qHS, PRN Miralax Powder Packet, 17 gram(s)= 15 mL, Oral, qDay, PRN pantoprazole IV Push, 40 mg, IV Push, qDayAC Percocet 325/5, 2 tab(s), Oral, q4h, PRN Rocephin, 2 gram(s)= 20 mL, IV Push (INT), qDay Tigan, 200 mg= 2 mL, Intramuscular, q6h, PRN traZODone, 50 mg= 1 tab(s), Oral, qHS Tylenol, 650 mg= 2 tab(s), Oral, q4h, PRN Vitamin B12, 1000 mcg= 2 tab(s), Oral, qDay Vitamin D3 125 mcg (5000 intl units) oral capsule, 125 mcg= 1 cap(s), Oral, qDay Home aspirin 81 mg oral tablet, chewable, 81 mg= 1 tab(s), Oral, Daily, 11 refills atorvastatin 40 mg oral tablet, 40 mg= 1 tab(s), Oral, qHS, 3 refills calcium (as carbonate) 600 mg oral tablet, 1200 mg= 2 tab(s), Oral, qDay, PRN carvedilol 12.5 mg oral tablet, 12.5 mg= 1 tab(s), Oral, BIDM clobetasol 0.05% topical cream, 1 juli, Topical, BID, 3 refills, Not taking clopidogrel 75 mg oral tablet, 75 mg= 1 tab(s), Oral, qDay, 3 refills DULoxetine 60 mg oral delayed release capsule, 60 mg= 1 cap(s), Oral, qDay, 3 refills eszopiclone 3 mg oral tablet, 3 mg= 1 tab(s), Oral, qHS fluticasone 50 mcg/inh NASAL spray, 100 mcg= 2 spray(s), Nostril, each, qDay MiraLax oral powder for reconstitution, 17 gram(s), Oral, qDay ondansetron 4 mg oral tablet, disintegrating, 4 mg= 1 tab(s), Oral, q6hr, PRN traZODone 50 mg oral tablet, 50 mg= 1 tab(s), Oral, qHS, 3 refills Tylenol Extra Strength 500 mg oral tablet, 1000 mg= 2 tab(s), Oral, QID, PRN Vitamin B12 500 mcg oral tablet, 1000 mcg= 2 tab(s), Oral, qDay, 3 refills Vitamin D3 125 mcg (5000 intl units) oral capsule, 125 mcg= 1 cap(s), Oral, qDay Allergies Ultram confusion codeine nausea lisinopril Cough traMADol Unknown Social History Smoking Status - 07/09/2018 Never smoker Alcohol - Denies Alcohol Use, 07/09/2018 Use: Never., 07/17/2019 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 Appetite Good. Eating Difficulties None. Caffeine intake amount: None., 05/01/2022 Substance Abuse - Denies Substance Abuse, 07/09/2018 Use: Never., 07/17/2019 Tobacco Nicotine Use: Former smoker, quit more than 30 days ago., 12/06/2022 Family History Cancer: Father, Sister and Brother. Heart disease: Mother, Sister and Brother. Health Status Family Member(s) Immunizations pneumococcal 13-valent conjugate vaccine: 0.5 unknown unit (06/19/18) pneumococcal 13-valent conjugate vaccine: 0 unknown unit (10/21/12) pneumococcal 23-valent vaccine(Pneumovax: 0 unknown unit (09/19/12) SARS-CoV-2 mRNA (tozinameran) vaccine: 0.3 unknown unit (07/31/21) SARS-CoV-2 mRNA (tozinameran) vaccine: 0.3 unknown unit (11/22/20) SARS-CoV-2 mRNA (tozinameran) vaccine: 0.3 unknown unit (11/01/20) tetanus/diphth/pertuss (Tdap) adult/adol: 0.5 mL (03/03/24) zoster vaccine live: 0 unknown unit (04/14/16) zoster vaccine live: 0 unknown unit (09/19/14) Digitally Signed by BIB ARTIS DO on 04/28/2024 04:58 PM [facility] [place] 04-28-2024 Orthopaedic surgery Consult note Date of Service 04/28/2024 Reason for Consultation Left hip CT findings Referring Physician ID History of Present Illness Patient is a 68-year-old female who presents to [facility] [place] for other medical conditions, however was noted to have avascular necrosis on CT scan of her left hip. Orthopedics consulted. Patient seen and examined at bedside. She reports her left hip has been hurting for about 6 months. She reports no inciting injury or trauma to the left hip. She reports that it continue to progress in severity. She reports she does not walk with a cane or walker, and has been walking on the hip as recently as today without too much issue. She reports pain with ambulation. Pt provides she was able to work with PT today and that she just use the restroom prior to our arrival. She notes that she has seen Dr. Eddy for this issue in October 2023 as well as multiple times in the emergency department for similar complaint. She notes that she was told that she would need a left total hip replacement and that her pain improved with rest or time. She reports no trauma to the hip. No recent falls. Reports she lives at home. Has assistance at home. Reports no orthopedic history about the left lower extremity. Reports no other needs at this time. Reports no history of steroid use, thyroid issues, anemia, diabetes, sickle cell. Review of Systems Pertinent positives and negative were listed above. All other systems reviewed were negative. Physical Exam Vitals and Measurements T: 36.7 C (Oral) TMIN: 36.3 C (Oral) TMAX: 36.7 C (Oral) HR: 79 RR: 20 BP: 166/73 SpO2: 94% Weight Dosing Weight: 65.6 kg (04/24/24) General: NAD, A&Ox3 HEENT: normocephalic, atraumatic, EOMI intact CV: pulses regular throughout, brisk cap refill throughout, Pulm: normal work of breathing, equal chest rise bilaterally, no intercostal retractions or conversational dyspnea GI: abdomen is soft, nontender, nondistended, no rigidity or guarding Psych: calm and cooperative Left lower extremity: -Skin pink and well perfused -Sensation intact to light touch L3-S1 -Gross motor function intact to dorsi/plantarflexion of ankle and toes -DP, TP pulses palpable -Compartments are soft and compressible -No calf tenderness Lab Results 04/28 05:03 WBC: 19.4 H Hgb: 9.2 L Hct: 27.2 L Platelet: 318 Glucose Level: 75 L Sodium Level: 141 Potassium Level: 3.6 BUN: 10.0 Creatinine Lvl (s): 0.93 04/27 04:55 WBC: 22.3 H Hgb: 8.3 L Hct: 25.1 L Platelet: 298 Glucose Level: 81 L Sodium Level: 138 Potassium Level: 3.6 BUN: 13.0 Creatinine Lvl (s): 0.96 Imaging Results and Diagnostics I independently reviewed the following imaging: CT Abdomen and Pelvis: There is AVN of the left femoral head with subchondral collapse and fragmentation. There is an associated minimal fluid collection surrounding the femoral head/neck. Assessment/Plan 1. Left hip avascular necrosis -Orthopedic consultation performed on 04/25 for left hip AVN, patient had effusion at that time on CT scan as well on 04/16 - Repeat CT scan yesterday demonstrating the same without any significant changes - No acute surgical intervention from orthopedic surgery. - Patient needs a total hip arthroplasty in an outpatient setting. She is established with Dr. Eddy at [facility] - Weightbearing as tolerated, PT OT as able - Infectious disease concern for infectious hip. Will order IR aspiration with culture and gram stain. -Orthopedics will follow in the periphery. Otherwise patient should follow-up outpatient with her established orthopedic surgeon. Discussed with Dr. Aparicio [facility] to sign off, please page with further concerns Problem List/Past Medical History Ongoing Anemia B12 deficiency anemia Bronchitis CABG - Coronary artery bypass graft CAD - Coronary artery disease Carotid stenosis, bilateral CKD (chronic kidney disease) Constipation Cystocele with prolapse Depression Glasses Headache Heart disease High risk medication use History of carotid endarterectomy History of PTCA Hx of CABG Hypertension HYPERTENSION, ESSENTIAL Insomnia Irritable bowel syndrome Lipoma Medicare annual wellness visit, subsequent Nephrolithiasis Osteoarthritis Osteopenia of femoral neck Preop cardiovascular exam S/P PTCA (PERCUTANEOUS TRANSLUMINAL CORONARY ANGIOPLASTY) Seasonal allergy SOB (shortness of breath) Spasm of back muscles Thoracic outlet syndrome Historical Bowel obstruction Chest pain in adult Insomnia Procedure/Surgical History Cardiac catheterization: 03/11/23 Endarterectomy: 01/04/20 Nerve conduction study: 02/06/17 Duplex ultrasound, carotid: 11/14/16 Lithotripsy: 2007 CABG x 1 - Coronary artery bypass graft x 1 Colonoscopy Abdominal hysterectomy section Cholecystectomy Carotid artery Medications Inpatient atorvastatin, 40 mg= 1 tab(s), Oral, qHS calcium carbonate, 1250 mg= 1 tab(s), Oral, qDay carvedilol 12.5 mg oral tablet, 12.5 mg= 1 tab(s), Oral, BIDM clopidogrel, 75 mg= 1 tab(s), Oral, qDay Compazine, 5 mg= 1 mL, IV Push, q6hr, PRN Dextrose 50% IV Push, 12.5 gram(s)= 25 mL, IV Push, AsDirected, PRN Dilaudid, 1 mg= 1 mL, IV Push, q3h, PRN DuoNeb, 3 mL, Inhalation, q4hRT, PRN Eliquis, 10 mg= 2 tab(s), Oral, BID Eliquis, 5 mg= 1 tab(s), Oral, BID eszopiclone, 3 mg= 1 tab(s), Oral, qHS fluticasone 50 mcg/inh NASAL spray, 100 mcg= 2 spray(s), Nostril, each, qDay melatonin, 3 mg= 1 tab(s), Oral, qHS, PRN melatonin, 3 mg= 1 tab(s), Oral, qHS, PRN Miralax Powder Packet, 17 gram(s)= 15 mL, Oral, qDay, PRN pantoprazole IV Push, 40 mg, IV Push, qDayAC Percocet 325/5, 2 tab(s), Oral, q4h, PRN Rocephin, 2 gram(s)= 20 mL, IV Push (INT), qDay Tigan, 200 mg= 2 mL, Intramuscular, q6h, PRN traZODone, 50 mg= 1 tab(s), Oral, qHS Tylenol, 650 mg= 2 tab(s), Oral, q4h, PRN Vitamin B12, 1000 mcg= 2 tab(s), Oral, qDay Vitamin D3 125 mcg (5000 intl units) oral capsule, 125 mcg= 1 cap(s), Oral, qDay Home aspirin 81 mg oral tablet, chewable, 81 mg= 1 tab(s), Oral, Daily, 11 refills atorvastatin 40 mg oral tablet, 40 mg= 1 tab(s), Oral, qHS, 3 refills calcium (as carbonate) 600 mg oral tablet, 1200 mg= 2 tab(s), Oral, qDay, PRN carvedilol 12.5 mg oral tablet, 12.5 mg= 1 tab(s), Oral, BIDM clobetasol 0.05% topical cream, 1 juli, Topical, BID, 3 refills, Not taking clopidogrel 75 mg oral tablet, 75 mg= 1 tab(s), Oral, qDay, 3 refills DULoxetine 60 mg oral delayed release capsule, 60 mg= 1 cap(s), Oral, qDay, 3 refills eszopiclone 3 mg oral tablet, 3 mg= 1 tab(s), Oral, qHS fluticasone 50 mcg/inh NASAL spray, 100 mcg= 2 spray(s), Nostril, each, qDay MiraLax oral powder for reconstitution, 17 gram(s), Oral, qDay ondansetron 4 mg oral tablet, disintegrating, 4 mg= 1 tab(s), Oral, q6hr, PRN traZODone 50 mg oral tablet, 50 mg= 1 tab(s), Oral, qHS, 3 refills Tylenol Extra Strength 500 mg oral tablet, 1000 mg= 2 tab(s), Oral, QID, PRN Vitamin B12 500 mcg oral tablet, 1000 mcg= 2 tab(s), Oral, qDay, 3 refills Vitamin D3 125 mcg (5000 intl units) oral capsule, 125 mcg= 1 cap(s), Oral, qDay Allergies Ultram confusion codeine nausea lisinopril Cough traMADol Unknown Social History Smoking Status - 07/09/2018 Never smoker Alcohol - Denies Alcohol Use, 07/09/2018 Use: Never., 07/17/2019 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 Appetite Good. Eating Difficulties None. Caffeine intake amount: None., 05/01/2022 Substance Abuse - Denies Substance Abuse, 07/09/2018 Use: Never., 07/17/2019 Tobacco Nicotine Use: Former smoker, quit more than 30 days ago., 12/06/2022 Family History Cancer: Father, Sister and Brother. Heart disease: Mother, Sister and Brother. Health Status Family Member(s) Immunizations pneumococcal 13-valent conjugate vaccine: 0.5 unknown unit (06/19/18) pneumococcal 13-valent conjugate vaccine: 0 unknown unit (10/21/12) pneumococcal 23-valent vaccine(Pneumovax: 0 unknown unit (09/19/12) SARS-CoV-2 mRNA (tozinameran) vaccine: 0.3 unknown unit (07/31/21) SARS-CoV-2 mRNA (tozinameran) vaccine: 0.3 unknown unit (11/22/20) SARS-CoV-2 mRNA (tozinameran) vaccine: 0.3 unknown unit (11/01/20) tetanus/diphth/pertuss (Tdap) adult/adol: 0.5 mL (03/03/24) zoster vaccine live: 0 unknown unit (04/14/16) zoster vaccine live: 0 unknown unit (09/19/14) Digitally Signed by BIB ARTIS DO on 04/28/2024 04:58 PM [facility] [place] 04-28-2024 Note Subjective: Patient seen for acute pulmonary emboli, pyelonephritis, bacteremia patient was examined and evaluated today, patient denies chest pain, no shortness of breath, no cough, no fever or chills, still complaining of abdominal discomfort, complaining of some pain in her left hip area, tolerating diet fairly well, no nausea or vomiting, stated that her bowels were moving okay, feeling weak tired and fatigued. Vitals Signs(Last 24 hrs)__Last Charted Minimum Max imum Temp36.6(APR 28:43)36.6(APR 28:43)36.5(APR 27:41) SBPH 147(APR 28:43)128(APR 27 15:41)H 171(APR 27 21:10) DBP60(APR 28:43)60(APR 27 15:41)80(APR 27 21:10) Physical examination: HEENT, is atraumatic normocephalic, pupils are equal, no pallor Neck supple no JVD Lungs clear to auscultation bilaterally, no wheezes, no rhonchi, no accessory muscle use Heart S1-S2 regular Abdomen soft nontender nondistended bowel sounds are present all 4 quadrants Lower extremities show no edema, no cyanosis, pulses palpable +2 bilaterally Skin showed no rash Neurological examination patient is awake alert and oriented 3, cranial nerves are grossly intact, no focal neurological defect could be appreciated Assessment and plan: 1. Acute hypoxic respiratory failure secondary to acute PE, improving. 2. Acute pulmonary emboli. 3. E. coli UTI. 4. Pyelonephritis. 5. Complex right renal cyst. 6. Bacteremia with E. coli. 7. Chronic kidney disease stage III. 8. Acute over chronic anemia. 9. Acute hyponatremia, resolved. 10. Left hip osteoarthritis with left hip effusion. 11. Sigmoid diverticulosis. Plan: 1. Continue with IV antibiotics. 2. Follow further recommendations from infectious disease team. 3. To monitor the patient's clinically as well as her labs. Patient understood her plan of care all questions were answered, all concerns were addressed, I did speak to her daughter, I updated her about the patient's condition all her questions were answered. Labs: Basic Metabolic Profile Glucose Level: 75 mg/dL Low (04/28/24 05:03:00) Sodium Level: 141 mEq/L (04/28/24 05:03:00) Potassium Level: 3.6 mEq/L (04/28/24 05:03:00) Chloride: 109 mEq/L (04/28/24 05:03:00) CO2: 24 mEq/L (04/28/24 05:03:00) BUN/Creatinine Ratio: 10.8 ratio (04/28/24 05:03:00) Complete Blood Count WBC: 19.4 10^3/mcL High (04/28/24 05:03:00) RBC: 2.86 10^6/mcL Low (04/28/24 05:03:00) Hgb: 9.2 G/dL Low (04/28/24 05:03:00) Hct: 27.2 % Low (04/28/24 05:03:00) MCV: 94.9 fL (04/28/24 05:03:00) MCH: 32.2 pg (04/28/24 05:03:00) MCHC: 33.9 G/dL (04/28/24 05:03:00) RDW: 17.6 % High (04/28/24 05:03:00) Platelet: 318 10^3/mcL (04/28/24 05:03:00) MPV: 9.4 fL (04/28/24 05:03:00) Medications (23) Active Scheduled: (13) apixaban 5 mg tablet 10 mg 2 tab(s), Oral, BID apixaban 5 mg tablet 5 mg 1 tab(s), Oral, BID atorvastatin 40 mg tablet 40 mg 1 tab(s), Oral, qHS calcium carbonate 1250 mg (500 mg calcium) tablet 1,250 mg 1 tab(s), Oral, qDay carvedilol 12.5 mg tablet 12.5 mg 1 tab(s), Oral, BIDM cefTRIAXone IVP syringe 2 gram(s) 20 mL, IV Push (INT), qDay cholecalciferol 125 mcg capsule (Vit D3 5000 unit(s)) 125 mcg 1 cap(s), Oral, qDay clopidogrel 75 mg Tablet 75 mg 1 tab(s), Oral, qDay cyanocobalamin 500 mcg Tablet 1,000 mcg 2 tab(s), Oral, qDay eszopiclone 3 mg tablet 3 mg 1 tab(s), Oral, qHS fluticasone nasal 0.05 mg/inh [place] 100 mcg 2 spray(s), Nostril, each, qDay pantoprazole 40 mg VIAL 40 mg, IV Push, qDayAC traZODONE 50 mg Tablet 50 mg 1 tab(s), Oral, qHS Continuous: (0) PRN: (10) acetaminophen 325 mg Tablet 650 mg 2 tab(s), Oral, q4h acetaminophen-OXYcodone 325 mg-5 mg Tablet 2 tab(s), Oral, q4h albuterol - ipratropium 2.5 mg-0.5 mg/3 mL Inhal Laura UD 3 mL, Inhalation, q4hRT dextrose 50% Solution Disp syringe 50 mL 12.5 gram(s) 25 mL, IV Push, AsDirected hydromorphone 1 mg/mL (1mL) INJ 1 mg 1 mL, IV Push, q3h melatonin 3 mg tablet 3 mg 1 tab(s), Oral, qHS melatonin 3 mg tablet 3 mg 1 tab(s), Oral, qHS polyethylene glycol 3350 - UD packet 17 gram(s) 15 mL, Oral, qDay prochlorperazine 10 mg/2 mL vial 5 mg 1 mL, IV Push, q6hr trimethobenzamide 200 mg/2 mL Solution 200 mg 2 mL, Intramuscular, q6h Signature: Ryan Campbell MD Digitally Signed by RYAN CAMPBELL MD on 04/28/2024 01:38 PM [facility] [place] 04-28-2024 Infectious disease Progress note Date of Service 04/28/2024 Objective Vitals and Measurements T: 36.6 C (Oral) TMIN: 36.3 C (Oral) TMAX: 36.6 C (Oral) HR: 73 RR: 18 BP: 147/60 SpO2: 94% Physical Exam Chart reviewed, patient examined. Patient is arousable with verbal stimulation, appears alert and oriented x3, appears mildly forgetful but FSC, drowsy, resting in bed. No c/o NVD, reports previous NV appears resolved, although reports lack in appetite this morning for breakfast. Patient with 0 documented BMs in the last 24 hours. Denies SOB, reports occasional cough. Denies chills or sweats, denies pain at this time. No other new complaints this AM, patient reports feeling improvement overall since admission. Respirations easy and nonlabored, 94% on NC1L. Patient has remained afebrile for the last 24 hours. Labs: SARS COVID negative Flu A/B negative RSV negative BC ID PCR- Enterobacterales, E Coli detected 04/23/2024 FOCUSED ASSESSMENT: CVS: Regular S1S2 LUNGS: Clear bilaterally, denies SOB, occasional cough, on NC1L ABDOMEN: Rounded, soft, nontender, + bowel sounds, passing gas, resolved NV, 0 documented BMs in the last 24 hours, decreased appetite this morning SKIN: BUE skin discolorations/rash noted SHU-patient reports this is chronic INCISIONS/DRESSINGS: None EXTREMITIES: +1 BLE/ankle edema, BUE skin discolorations/rash-chronic, generalized weakness/fatigue-improving LINES/TUBES/DRAINS: RAC & RFA IV dressings dry & intact, no drainage or erythema at sites CURRENT ANTIBIOTICS: Doxycycline 100mg IV Q12h 04/24 - 04/25 Rocephin 2g IV Q24h 04/24 - 04/28 CULTURE RESULTS/ILIR: 04/20 Urine Culture -F >100,000 cfu/ml Escherichia coli 04/23 Blood Cultures -F 10/22 Bottle: Escherichia coli &Escherichia coli #2 10/22 Botle: Escherichia coli 04/25 Blood Cultures 11/22 no growth to date -P Weight Dosing Weight: 65.6 kg (04/24/24) Medications Medications (23) Active Scheduled: (13) apixaban 5 mg tablet 10 mg 2 tab(s), Oral, BID apixaban 5 mg tablet 5 mg 1 tab(s), Oral, BID atorvastatin 40 mg tablet 40 mg 1 tab(s), Oral, qHS calcium carbonate 1250 mg (500 mg calcium) tablet 1,250 mg 1 tab(s), Oral, qDay carvedilol 12.5 mg tablet 12.5 mg 1 tab(s), Oral, BIDM cefTRIAXone IVP syringe 2 gram(s) 20 mL, IV Push (INT), qDay cholecalciferol 125 mcg capsule (Vit D3 5000 unit(s)) 125 mcg 1 cap(s), Oral, qDay clopidogrel 75 mg Tablet 75 mg 1 tab(s), Oral, qDay cyanocobalamin 500 mcg Tablet 1,000 mcg 2 tab(s), Oral, qDay eszopiclone 3 mg tablet 3 mg 1 tab(s), Oral, qHS fluticasone nasal 0.05 mg/inh [place] 100 mcg 2 spray(s), Nostril, each, qDay pantoprazole 40 mg VIAL 40 mg, IV Push, qDayAC traZODONE 50 mg Tablet 50 mg 1 tab(s), Oral, qHS Continuous: (0) PRN: (10) acetaminophen 325 mg Tablet 650 mg 2 tab(s), Oral, q4h acetaminophen-OXYcodone 325 mg-5 mg Tablet 2 tab(s), Oral, q4h albuterol - ipratropium 2.5 mg-0.5 mg/3 mL Inhal Laura UD 3 mL, Inhalation, q4hRT dextrose 50% Solution Disp syringe 50 mL 12.5 gram(s) 25 mL, IV Push, AsDirected hydromorphone 1 mg/mL (1mL) INJ 1 mg 1 mL, IV Push, q3h melatonin 3 mg tablet 3 mg 1 tab(s), Oral, qHS melatonin 3 mg tablet 3 mg 1 tab(s), Oral, qHS polyethylene glycol 3350 - UD packet 17 gram(s) 15 mL, Oral, qDay prochlorperazine 10 mg/2 mL vial 5 mg 1 mL, IV Push, q6hr trimethobenzamide 200 mg/2 mL Solution 200 mg 2 mL, Intramuscular, q6h Lab Results 04/28 05:03 WBC: 19.4 H Hgb: 9.2 L Hct: 27.2 L Platelet: 318 Glucose Level: 75 L Sodium Level: 141 Potassium Level: 3.6 BUN: 10.0 Creatinine Lvl (s): 0.93 04/27 04:55 WBC: 22.3 H Hgb: 8.3 L Hct: 25.1 L Platelet: 298 Glucose Level: 81 L Sodium Level: 138 Potassium Level: 3.6 BUN: 13.0 Creatinine Lvl (s): 0.96 Imaging Results and Diagnostics CT Abdomen/Pelvis w/Contrast Result Date: April 27, 2024 Verified By: LIUS CRUMP DO CLINICAL STATEMENT: IMPRESSION: 1. Intermediate fluid density cyst within the right renal midpole favored torepresent a complex cyst however evaluation is limited on this single phasestudy. No appreciable soft tissue component. No evidence of pyelonephritis.2. Left hip effusion with synovial enhancement. Cannot exclude septicarthritis. Consider fluid sampling.3. Small bilateral pleural effusions with adjacent atelectasis.4. Trace ascites.5. Stable intra and extrahepatic bile duct dilation.6. Sigmoid diverticulosis. XR Abdomen 2 Views w/ Decub/Erect Result Date: April 26, 2024 Verified By: REN SALCEDO DO CLINICAL STATEMENT: IMPRESSION: No evidence of bowel obstruction. US Renal Result Date: April 26, 2024 Verified By: REN SALCEDO DO CLINICAL STATEMENT: IMPRESSION: 1. New 3.1 cm isoechoic mass in the right kidney. This does not displaysignificant vascular flow. This may reflect a complex cyst, pyelonephritis,or a solid renal mass.2. Stable bilateral renal cysts. 04/24 TTE Summary: 1. Left ventricle: The cavity size is normal. Wall thickness is mildly increased. Systolic function is vigorous. The estimated ejection fraction is 65-70%. Wall motion is normal; there are no regional wall motion abnormalities. Normal diastolic function. 2. Ventricular septum: Thickness is mildly increased. 3. Aortic valve: There is moderate regurgitation. There is no holodiastolic reversal in descending and abdominal aorta. 4. Left atrium: The atrium is mildly dilated. 5. Right ventricle: The RV systolic pressure by Doppler is 38 mm Hg. 6. Right atrium: The estimated right atrial pressure is 15 mm Hg. Problem List 1. E. coli UTI 2. Bacteremia-E. coli 3. Acute PE 4. Acute hypoxic respiratory failure 5. CKD stage III 6. Transaminitis Digitally Signed by Lisa Jimenez RN on 04/28/2024 10:05 AM [facility] [place] 04-28-2024 Infectious disease Progress note Date of Service 04/28/2024 Objective Vitals and Measurements T: 36.6 C (Oral) TMIN: 36.3 C (Oral) TMAX: 36.6 C (Oral) HR: 73 RR: 18 BP: 147/60 SpO2: 94% Physical Exam Chart reviewed, patient examined. Patient is arousable with verbal stimulation, appears alert and oriented x3, appears mildly forgetful but FSC, drowsy, resting in bed. No c/o NVD, reports previous NV appears resolved, although reports lack in appetite this morning for breakfast. Patient with 0 documented BMs in the last 24 hours. Denies SOB, reports occasional cough. Denies chills or sweats, denies pain at this time. No other new complaints this AM, patient reports feeling improvement overall since admission. Respirations easy and nonlabored, 94% on NC1L. Patient has remained afebrile for the last 24 hours. Labs: SARS COVID negative Flu A/B negative RSV negative BC ID PCR- Enterobacterales, E Coli detected 04/23/2024 FOCUSED ASSESSMENT: CVS: Regular S1S2 LUNGS: Clear bilaterally, denies SOB, occasional cough, on NC1L ABDOMEN: Rounded, soft, nontender, + bowel sounds, passing gas, resolved NV, 0 documented BMs in the last 24 hours, decreased appetite this morning SKIN: BUE skin discolorations/rash noted [employer]-patient reports this is chronic INCISIONS/DRESSINGS: None EXTREMITIES: +1 BLE/ankle edema, BUE skin discolorations/rash-chronic, generalized weakness/fatigue-improving LINES/TUBES/DRAINS: RAC & RFA IV dressings dry & intact, no drainage or erythema at sites CURRENT ANTIBIOTICS: Doxycycline 100mg IV Q12h 04/24 - 04/25 Rocephin 2g IV Q24h 04/24 - 04/28 CULTURE RESULTS/ILIR: 04/20 Urine Culture -F >100,000 cfu/ml Escherichia coli 04/23 Blood Cultures -F 10/22 Bottle: Escherichia coli &Escherichia coli #2 10/22 Botle: Escherichia coli 04/25 Blood Cultures 11/22 no growth to date -P Weight Dosing Weight: 65.6 kg (04/24/24) Medications Medications (23) Active Scheduled: (13) apixaban 5 mg tablet 10 mg 2 tab(s), Oral, BID apixaban 5 mg tablet 5 mg 1 tab(s), Oral, BID atorvastatin 40 mg tablet 40 mg 1 tab(s), Oral, qHS calcium carbonate 1250 mg (500 mg calcium) tablet 1,250 mg 1 tab(s), Oral, qDay carvedilol 12.5 mg tablet 12.5 mg 1 tab(s), Oral, BIDM cefTRIAXone IVP syringe 2 gram(s) 20 mL, IV Push (INT), qDay cholecalciferol 125 mcg capsule (Vit D3 5000 unit(s)) 125 mcg 1 cap(s), Oral, qDay clopidogrel 75 mg Tablet 75 mg 1 tab(s), Oral, qDay cyanocobalamin 500 mcg Tablet 1,000 mcg 2 tab(s), Oral, qDay eszopiclone 3 mg tablet 3 mg 1 tab(s), Oral, qHS fluticasone nasal 0.05 mg/inh [place] 100 mcg 2 spray(s), Nostril, each, qDay pantoprazole 40 mg VIAL 40 mg, IV Push, qDayAC traZODONE 50 mg Tablet 50 mg 1 tab(s), Oral, qHS Continuous: (0) PRN: (10) acetaminophen 325 mg Tablet 650 mg 2 tab(s), Oral, q4h acetaminophen-OXYcodone 325 mg-5 mg Tablet 2 tab(s), Oral, q4h albuterol - ipratropium 2.5 mg-0.5 mg/3 mL Inhal Laura UD 3 mL, Inhalation, q4hRT dextrose 50% Solution Disp syringe 50 mL 12.5 gram(s) 25 mL, IV Push, AsDirected hydromorphone 1 mg/mL (1mL) INJ 1 mg 1 mL, IV Push, q3h melatonin 3 mg tablet 3 mg 1 tab(s), Oral, qHS melatonin 3 mg tablet 3 mg 1 tab(s), Oral, qHS polyethylene glycol 3350 - UD packet 17 gram(s) 15 mL, Oral, qDay prochlorperazine 10 mg/2 mL vial 5 mg 1 mL, IV Push, q6hr trimethobenzamide 200 mg/2 mL Solution 200 mg 2 mL, Intramuscular, q6h Lab Results 04/28 05:03 WBC: 19.4 H Hgb: 9.2 L Hct: 27.2 L Platelet: 318 Glucose Level: 75 L Sodium Level: 141 Potassium Level: 3.6 BUN: 10.0 Creatinine Lvl (s): 0.93 04/27 04:55 WBC: 22.3 H Hgb: 8.3 L Hct: 25.1 L Platelet: 298 Glucose Level: 81 L Sodium Level: 138 Potassium Level: 3.6 BUN: 13.0 Creatinine Lvl (s): 0.96 Imaging Results and Diagnostics CT Abdomen/Pelvis w/Contrast Result Date: April 27, 2024 Verified By: LUIS CRUMP DO CLINICAL STATEMENT: IMPRESSION: 1. Intermediate fluid density cyst within the right renal midpole favored torepresent a complex cyst however evaluation is limited on this single phasestudy. No appreciable soft tissue component. No evidence of pyelonephritis.2. Left hip effusion with synovial enhancement. Cannot exclude septicarthritis. Consider fluid sampling.3. Small bilateral pleural effusions with adjacent atelectasis.4. Trace ascites.5. Stable intra and extrahepatic bile duct dilation.6. Sigmoid diverticulosis. XR Abdomen 2 Views w/ Decub/Erect Result Date: April 26, 2024 Verified By: REN SALCEDO DO CLINICAL STATEMENT: IMPRESSION: No evidence of bowel obstruction. US Renal Result Date: April 26, 2024 Verified By: REN SALCEDO DO CLINICAL STATEMENT: IMPRESSION: 1. New 3.1 cm isoechoic mass in the right kidney. This does not displaysignificant vascular flow. This may reflect a complex cyst, pyelonephritis,or a solid renal mass.2. Stable bilateral renal cysts. 04/24 TTE Summary: 1. Left ventricle: The cavity size is normal. Wall thickness is mildly increased. Systolic function is vigorous. The estimated ejection fraction is 65-70%. Wall motion is normal; there are no regional wall motion abnormalities. Normal diastolic function. 2. Ventricular septum: Thickness is mildly increased. 3. Aortic valve: There is moderate regurgitation. There is no holodiastolic reversal in descending and abdominal aorta. 4. Left atrium: The atrium is mildly dilated. 5. Right ventricle: The RV systolic pressure by Doppler is 38 mm Hg. 6. Right atrium: The estimated right atrial pressure is 15 mm Hg. Problem List 1. E. coli UTI 2. Bacteremia-E. coli 3. Acute PE 4. Acute hypoxic respiratory failure 5. CKD stage III 6. Transaminitis Digitally Signed by Lisa Jimenez RN on 04/28/2024 10:05 AM [facility] [place] 04-28-2024 Note . MICRO - Microbiology PROCEDURE: Blood Culture (bacterial) [*1] SOURCE: Blood BODY SITE: COLLECTED DATE/TIME: 04/23/2024 21:31 EDT RECEIVED DATE/TIME: 04/24/2024 14:11 EDT START DATE/TIME: 04/24/2024 14:11 EDT FREE TEXT SOURCE: FINAL REPORTS Final Report [] Verified Date/Time/Personnel: 04/28/2024 07:53 EDT Escherichia coli Isolated from anaerobe bottle only. Refer to previous culture for susceptibility. [id number] Escherichia coli #2 Isolated from anaerobe bottle only. PRELIMINARY REPORTS Preliminary Report [] Verified Date/Time/Personnel: 04/27/2024 09:10 EDT Escherichia coli Isolated from anaerobe bottle only. Refer to previous culture for susceptibility. [id number] Escherichia coli #2 Isolated from anaerobe bottle only. ILIR to follow Preliminary Report [] Verified Date/Time/Personnel: 04/24/2024 14:59 EDT Culture has been received in lab and is no growth to date. Routine cultures are held for 5 days. STAINS GSANA [] Verified Date/Time/Personnel: 04/25/2024 05:37 EDT Gram Negative Rods SUSCEPTIBILITY RESULTS Escherichia coli Antibiotic ILIR Dilut ILIR Inter ID Panel Not Not Applicable Applicable Escherichia coli #2 Antibiotic ILIR Dilut ILIR Inter Amikacin <=16 Susceptible Amoxicillin/ <=8/4 Susceptible Clavulanate Ampicillin >16 Resistant Ampicillin/ <=4/2 Susceptible Sulbactam Aztreonam <=4 Susceptible Cefazolin <=2 Susceptible Cefotaxime <=2 Susceptible Ciprofloxacin <=0.25 Susceptible Ertapenem <=0.5 Susceptible Gentamicin <=2 Susceptible ID Panel Not Not Applicable Applicable Imipenem <=1 Susceptible Levofloxacin <=0.5 Susceptible Meropenem <=1 Susceptible Minocycline 8 Intermediate Moxifloxacin <=2 Susceptible Piperacillin/ <=8 Susceptible Tazobactam Tetracycline >8 Resistant MICRO - Microbiology SUSCEPTIBILITY RESULTS Escherichia coli #2 Antibiotic ILIR Dilut ILIR Inter Trimethoprim/ >2/38 Resistant Sulfa Performing Locations *1: This test was performed at: [facility], [address] [place] [address], [facility] , [facility] ([place]) 04-27-2024 Note ORIGINAL EXAMINATION: CT OF THE ABDOMEN AND PELVIS WITH CONTRAST 04/27/2024 8:12 pm TECHNIQUE: CT of the abdomen and pelvis was performed with the administration of intravenous contrast. Multiplanar reformatted images are provided for review. Automated exposure control, iterative reconstruction, and/or weight based adjustment of the mA/kV was utilized to reduce the radiation dose to as low as reasonably achievable. COMPARISON: CTA chest 12/23/2019. Bilateral renal ultrasounds 04/26/2024. HISTORY: ORDERING SYSTEM PROVIDED HISTORY: Reason for Exam: PT STATES ABD PAIN, N/V pyelonephritis, renal mass? FINDINGS: Small bilateral pleural effusions with adjacent atelectasis. The liver is within normal limits for size. No abnormal enhancement. Intra and extrahepatic bile duct dilation is appreciated, similar in appearance to the study from 12/23/2019. Status post cholecystectomy. The spleen, pancreas and adrenal glands are unremarkable. Redemonstration of multiple exophytic cysts arising from the bilateral kidneys. The previously described rounded midpole renal lesion visualized on prior CT demonstrates intermediate fluid density without appreciable septation or soft tissue component. No hydroureteronephrosis or nephroureterolithiasis is identified bilaterally. No significant perinephric stranding. Symmetric parenchymal enhancement. The urinary bladder is incompletely distended. Status post hysterectomy. The stomach is largely decompressed. Bowel gas is noted to the level of the rectum in nonobstructive pattern. Status post appendectomy. No dilated loops of small large bowel are identified. Contrast material is appreciated throughout the bowel. Diverticulosis without acute inflammation. No free air. Trace free fluid and perihepatic ascites. No abdominal or pelvic adenopathy. Extensive calcified atherosclerotic plaque without aneurysm. Vascular structures otherwise unremarkable. Synovial enhancement and effusion is appreciated at the left hip joint. IMPRESSION: 1. Intermediate fluid density cyst within the right renal midpole favored to represent a complex cyst however evaluation is limited on this single phase study. No appreciable soft tissue component. No evidence of pyelonephritis. 2. Left hip effusion with synovial enhancement. Cannot exclude septic arthritis. Consider fluid sampling. 3. Small bilateral pleural effusions with adjacent atelectasis. 4. Trace ascites. 5. Stable intra and extrahepatic bile duct dilation. 6. Sigmoid diverticulosis. Interpreted by: Luis Crump Preliminary Report By: Luis Crump Electronically signed By Luis Crump Dictated Date: 04/27/2024 8:25:55 PM Prelim Date: 04/27/2024 8:45:58 PM Sign Date: 04/27/2024 8:45:58 PM Ordering Provider: AGUILARRENITA LOPEZ [facility] 04-27-2024 Note Date of Service April 27, 2024 Chief Complaint UTI Subjective 68-year-old female with past medical history significant for coronary artery disease status post CABG stent placement, bilateral carotid artery stenosis status post carotid endarterectomy, hypertension, chronic kidney disease, thoracic outlet syndrome who presents with shortness of breath. Patient found to have acute pulmonary emboli started heparin drip and transitioned to Eliquis. Patient also found to have E. coli UTI and bacteremia. Patient has been seen by infectious disease and is undergoing further workup. Patient is currently pending CT abdomen/pelvis and final recommendations. She remains on IV antibiotics. Plan for home health care at discharge. Evaluation today, patient decayed she is feeling better. Yesterday she was unable to tolerate really any oral intake except a popsicle and was having multiple episodes of nausea and emesis. She indicates she is feeling much better today. Abdominal pain is improved. Denies any further nausea or emesis. Able to tolerate more oral intake. No other acute events overnight. Objective Vitals and Measurements T: 36.5 C (Oral) TMIN: 36.3 C (Oral) TMAX: 36.7 C (Oral) HR: 71 RR: 18 BP: 128/60 SpO2: 94% Intake and Output 7AM Yesterday to 7AM Today Intake and Output (Last 24 hours) Intake Oral Intake 780.00 Output Stool Count 0.00 Urine Count 6.00 Emesis Count 0.00 Total Summary Total Intake 780.00 Total Output 0.00 Fluid Balance 780.00 Physical Exam General Appearance: Alert, oriented Head: Normocephalic, atraumatic EENT: PERRLA, EOMI. Neck: Supple, no JVD Cardiac: Regular rate and rhythm. Normal S1/S2. Lungs: Lungs clear to auscultation bilaterally. Abdomen: Soft, nontender, nondistended. BS *4. Extremities: No LE edema. Neurological: AO*3, CN 2-12 intact. Weight Dosing Weight: 65.6 kg (07/05/24) Medications Medications (23) Active Scheduled: (13) apixaban 5 mg tablet 10 mg 2 tab(s), Oral, BID apixaban 5 mg tablet 5 mg 1 tab(s), Oral, BID atorvastatin 40 mg tablet 40 mg 1 tab(s), Oral, qHS calcium carbonate 1250 mg (500 mg calcium) tablet 1,250 mg 1 tab(s), Oral, qDay carvedilol 12.5 mg tablet 12.5 mg 1 tab(s), Oral, BIDM cefTRIAXone IVP syringe 2 gram(s) 20 mL, IV Push (INT), qDay cholecalciferol 125 mcg capsule (Vit D3 5000 unit(s)) 125 mcg 1 cap(s), Oral, qDay clopidogrel 75 mg Tablet 75 mg 1 tab(s), Oral, qDay cyanocobalamin 500 mcg Tablet 1,000 mcg 2 tab(s), Oral, qDay eszopiclone 3 mg tablet 3 mg 1 tab(s), Oral, qHS fluticasone nasal 0.05 mg/inh [place] 100 mcg 2 spray(s), Nostril, each, qDay pantoprazole 40 mg VIAL 40 mg, IV Push, qDayAC traZODONE 50 mg Tablet 50 mg 1 tab(s), Oral, qHS Continuous: (0) PRN: (10) acetaminophen 325 mg Tablet 650 mg 2 tab(s), Oral, q4h acetaminophen-OXYcodone 325 mg-5 mg Tablet 2 tab(s), Oral, q4h albuterol - ipratropium 2.5 mg-0.5 mg/3 mL Inhal Laura UD 3 mL, Inhalation, q4hRT dextrose 50% Solution Disp syringe 50 mL 12.5 gram(s) 25 mL, IV Push, AsDirected hydromorphone 1 mg/mL (1mL) INJ 1 mg 1 mL, IV Push, q3h melatonin 3 mg tablet 3 mg 1 tab(s), Oral, qHS melatonin 3 mg tablet 3 mg 1 tab(s), Oral, qHS polyethylene glycol 3350 - UD packet 17 gram(s) 15 mL, Oral, qDay prochlorperazine 10 mg/2 mL vial 5 mg 1 mL, IV Push, q6hr trimethobenzamide 200 mg/2 mL Solution 200 mg 2 mL, Intramuscular, q6h Lab Results 04/27 04:55 WBC: 22.3 H Hgb: 8.3 L Hct: 25.1 L Platelet: 298 Glucose Level: 81 L Sodium Level: 138 Potassium Level: 3.6 BUN: 13.0 Creatinine Lvl (s): 0.96 Assessment/Plan Acute hypoxic respiratory failure Acute pulmonary emboli E. coli urinary tract infection Pyelonephritis Bacteremia Elevated troponin Acute hyponatremia Chronic kidney disease stage III Acute on chronic normocytic anemia Patient presented with acute hypoxic respiratory failure and required up to 2 L oxygen via nasal cannula. CT angiography with distal right upper lobe anterior segmental pulmonary embolus. No evidence of pulmonary arterial dilatation or right heart strain. Patient weaned to room air. Patient transitioned from heparin drip to Eliquis. Patient also has noted urinary tract infection. She was experiencing urinary symptoms with dysuria and increased frequency and urgency of urination. Urine culture positive for E. coli. Patient with CVA tenderness. Renal ultrasound concerning for pyelonephritis over there is also questionable renal mass. Will evaluate further with CT. Blood cultures from 04/23 positive for E. coli. Repeat blood cultures negative to date. Echocardiogram with normal systolic function and no signs of endocarditis. Continue patient on Rocephin. Defer to infectious disease regarding final recommendations. Regarding hyponatremia, patient had hyponatremia during recent hospitalization oral. At the time of this that the patient was dehydrated and had hypovolemic hyponatremia. She was fluid resuscitated during hospitalization and sodium was 134 at discharge. Patient's initial urine studies this time again consistent with hypovolemic hyponatremia. Patient received IV fluids with resolution of hyponatremia. Duloxetine held and thyroid and cortisol studies within normal limits. Repeat urine studies not obtained. Sitter resuming duloxetine for full dose and repeating BMP as an outpatient. Patient has noted acute on chronic normocytic anemia and hemoglobin decreased to 6.3 on 04/25. Patient received 1 unit packed red blood cell with improvement of hemoglobin to 9. Patient's B12 high and iron studies were consistent with chronic disease. Patient does have chronic kidney disease likely contributing. Patient with no active bleeding. She can follow-up with hematology as an outpatient for further evaluation as she has not seen them previously. 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 Subtle sclerosis in the right femoral head on the imaging may indicate early right hip avascular necrosis as well. Orthopedic surgery evaluated patient per family request indicated patient to follow as an outpatient for consideration of total hip replacement. CT chest demonstrates small right and trace left pleural effusions with adjacent atelectasis and right lower and middle lobe consolidations. Suggest follow-up in 8 to 12 weeks after resolution of acute symptoms. Clinically no concern for pneumonia. Anticipated Date of Discharge Discharge pending CT abdomen/pelvis and follow-up recommendations from infectious disease. Time Spent >35 minutes Digitally Signed by AGUILAR LOPEZ MD on 04/27/2024 08:00 PM [facility] 04-27-2024 Infectious disease Progress note Date of Service 04/27/2024 Objective Vitals and Measurements T: 36.3 C (Oral) TMIN: 36.3 C (Oral) TMAX: 36.9 C (Oral) HR: 70 RR: 18 BP: 151/68 SpO2: 95% Physical Exam Chart reviewed, patient examined. Patient is arousable with verbal stimulation, appears alert and oriented x3, appears mildly forgetful but FSC, assisted to bathroom from bed. No c/o NVD today, reports NV yesterday. Reports diarrhea last night although patient with 0 documented BMs in the last 24 hours. Denies SOB at this time, reports SOB appears much improved this morning. Reports occasional cough. Denies chills or sweats, denies pain at this time. No other new complaints this AM, patient reports feeling pain overall this morning. Respirations easy and nonlabored, 95% on NC1L. Patient has remained afebrile for the last 24 hours. Labs: SARS COVID negative Flu A/B negative RSV negative BC ID PCR- Enterobacterales, E Coli detected 04/23/2024 FOCUSED ASSESSMENT: CVS: Regular S1S2 LUNGS: Clear diminished bilaterally, improved SOB, occasional cough, on NC1L ABDOMEN: Rounded, soft, nontender, + bowel sounds, passing gas, resolved NV today, diarrhea yesterday, 0 documented BMs in the last 24 hours SKIN: BUE skin discolorations/rash noted [employer]-patient reports this is chronic INCISIONS/DRESSINGS: None EXTREMITIES: +1 BLE/ankle edema, BUE skin discolorations/rash, generalized weakness/fatigue-improving LINES/TUBES/DRAINS: RAC & RFA IV dressings dry & intact, no drainage or erythema at sites. Hat to toilet noted with darker yellow urine after assistance to use bathroom. CURRENT ANTIBIOTICS: Doxycycline 100mg IV Q12h 04/24 - 04/25 Rocephin 2g IV Q24h 04/24 - 04/28 CULTURE RESULTS/ILIR: 04/20 Urine Culture -F >100,000 cfu/ml Escherichia coli 04/23 Blood Cultures -P 10/22 Bottle: Escherichia coli &Escherichia coli #2 10/22 Botle: Escherichia coli 04/25 Blood Cultures 11/22 no growth to date -P Weight Dosing Weight: 65.6 kg (04/24/24) Medications Medications (23) Active Scheduled: (13) apixaban 5 mg tablet 10 mg 2 tab(s), Oral, BID apixaban 5 mg tablet 5 mg 1 tab(s), Oral, BID atorvastatin 40 mg tablet 40 mg 1 tab(s), Oral, qHS calcium carbonate 1250 mg (500 mg calcium) tablet 1,250 mg 1 tab(s), Oral, qDay carvedilol 12.5 mg tablet 12.5 mg 1 tab(s), Oral, BIDM cefTRIAXone IVP syringe 2 gram(s) 20 mL, IV Push (INT), qDay cholecalciferol 125 mcg capsule (Vit D3 5000 unit(s)) 125 mcg 1 cap(s), Oral, qDay clopidogrel 75 mg Tablet 75 mg 1 tab(s), Oral, qDay cyanocobalamin 500 mcg Tablet 1,000 mcg 2 tab(s), Oral, qDay eszopiclone 3 mg tablet 3 mg 1 tab(s), Oral, qHS fluticasone nasal 0.05 mg/inh [place] 100 mcg 2 spray(s), Nostril, each, qDay pantoprazole 40 mg VIAL 40 mg, IV Push, qDayAC traZODONE 50 mg Tablet 50 mg 1 tab(s), Oral, qHS Continuous: (0) PRN: (10) acetaminophen 325 mg Tablet 650 mg 2 tab(s), Oral, q4h acetaminophen-OXYcodone 325 mg-5 mg Tablet 2 tab(s), Oral, q4h albuterol - ipratropium 2.5 mg-0.5 mg/3 mL Inhal Laura UD 3 mL, Inhalation, q4hRT dextrose 50% Solution Disp syringe 50 mL 12.5 gram(s) 25 mL, IV Push, AsDirected hydromorphone 1 mg/mL (1mL) INJ 1 mg 1 mL, IV Push, q3h melatonin 3 mg tablet 3 mg 1 tab(s), Oral, qHS melatonin 3 mg tablet 3 mg 1 tab(s), Oral, qHS polyethylene glycol 3350 - UD packet 17 gram(s) 15 mL, Oral, qDay prochlorperazine 10 mg/2 mL vial 5 mg 1 mL, IV Push, q6hr trimethobenzamide 200 mg/2 mL Solution 200 mg 2 mL, Intramuscular, q6h Lab Results 04/27 04:55 WBC: 22.3 H Hgb: 8.3 L Hct: 25.1 L Platelet: 298 Glucose Level: 81 L Sodium Level: 138 Potassium Level: 3.6 BUN: 13.0 Creatinine Lvl (s): 0.96 04/26 06:24 WBC: 26.7 H Hgb: 9.0 L Hct: 27.5 L Platelet: 276 Glucose Level: 87 Sodium Level: 136 Potassium Level: 3.6 BUN: 18.0 Creatinine Lvl (s): 1.06 Imaging Results and Diagnostics XR Abdomen 2 Views w/ Decub/Erect Result Date: April 26, 2024 Verified By: REN SALCEDO DO CLINICAL STATEMENT: IMPRESSION: No evidence of bowel obstruction. US Renal Result Date: April 26, 2024 Verified By: REN SALCEDO DO CLINICAL STATEMENT: IMPRESSION: 1. New 3.1 cm isoechoic mass in the right kidney. This does not displaysignificant vascular flow. This may reflect a complex cyst, pyelonephritis,or a solid renal mass.2. Stable bilateral renal cysts. 04/24 TTE Summary: 1. Left ventricle: The cavity size is normal. Wall thickness is mildly increased. Systolic function is vigorous. The estimated ejection fraction is 65-70%. Wall motion is normal; there are no regional wall motion abnormalities. Normal diastolic function. 2. Ventricular septum: Thickness is mildly increased. 3. Aortic valve: There is moderate regurgitation. There is no holodiastolic reversal in descending and abdominal aorta. 4. Left atrium: The atrium is mildly dilated. 5. Right ventricle: The RV systolic pressure by Doppler is 38 mm Hg. 6. Right atrium: The estimated right atrial pressure is 15 mm Hg. 04/27/2024 CT Abdomen/Pelvis Pending completion and results Problem List 1. E. coli UTI 2. Bacteremia 3. Acute PE 4. Acute hypoxic respiratory failure 5. CKD stage III Digitally Signed by Lisa Jimenez RN on 04/27/2024 09:31 AM [facility] 04-27-2024 Infectious disease Progress note Date of Service 04/27/2024 Objective Vitals and Measurements T: 36.3 C (Oral) TMIN: 36.3 C (Oral) TMAX: 36.9 C (Oral) HR: 70 RR: 18 BP: 151/68 SpO2: 95% Physical Exam Chart reviewed, patient examined. Patient is arousable with verbal stimulation, appears alert and oriented x3, appears mildly forgetful but FSC, assisted to bathroom from bed. No c/o NVD today, reports NV yesterday. Reports diarrhea last night although patient with 0 documented BMs in the last 24 hours. Denies SOB at this time, reports SOB appears much improved this morning. Reports occasional cough. Denies chills or sweats, denies pain at this time. No other new complaints this AM, patient reports feeling pain overall this morning. Respirations easy and nonlabored, 95% on NC1L. Patient has remained afebrile for the last 24 hours. Labs: SARS COVID negative Flu A/B negative RSV negative BC ID PCR- Enterobacterales, E Coli detected 04/23/2024 FOCUSED ASSESSMENT: CVS: Regular S1S2 LUNGS: Clear diminished bilaterally, improved SOB, occasional cough, on NC1L ABDOMEN: Rounded, soft, nontender, + bowel sounds, passing gas, resolved NV today, diarrhea yesterday, 0 documented BMs in the last 24 hours SKIN: BUE skin discolorations/rash noted [employer]-patient reports this is chronic INCISIONS/DRESSINGS: None EXTREMITIES: +1 BLE/ankle edema, BUE skin discolorations/rash, generalized weakness/fatigue-improving LINES/TUBES/DRAINS: RAC & RFA IV dressings dry & intact, no drainage or erythema at sites. Hat to toilet noted with darker yellow urine after assistance to use bathroom. CURRENT ANTIBIOTICS: Doxycycline 100mg IV Q12h 04/24 - 04/25 Rocephin 2g IV Q24h 04/24 - 04/28 CULTURE RESULTS/ILIR: 04/20 Urine Culture -F >100,000 cfu/ml Escherichia coli 04/23 Blood Cultures -P 10/22 Bottle: Escherichia coli &Escherichia coli #2 1/2 Botle: Escherichia coli 04/25 Blood Cultures 11/22 no growth to date -P Weight Dosing Weight: 65.6 kg (04/24/24) Medications Medications (23) Active Scheduled: (13) apixaban 5 mg tablet 10 mg 2 tab(s), Oral, BID apixaban 5 mg tablet 5 mg 1 tab(s), Oral, BID atorvastatin 40 mg tablet 40 mg 1 tab(s), Oral, qHS calcium carbonate 1250 mg (500 mg calcium) tablet 1,250 mg 1 tab(s), Oral, qDay carvedilol 12.5 mg tablet 12.5 mg 1 tab(s), Oral, BIDM cefTRIAXone IVP syringe 2 gram(s) 20 mL, IV Push (INT), qDay cholecalciferol 125 mcg capsule (Vit D3 5000 unit(s)) 125 mcg 1 cap(s), Oral, qDay clopidogrel 75 mg Tablet 75 mg 1 tab(s), Oral, qDay cyanocobalamin 500 mcg Tablet 1,000 mcg 2 tab(s), Oral, qDay eszopiclone 3 mg tablet 3 mg 1 tab(s), Oral, qHS fluticasone nasal 0.05 mg/inh [place] 100 mcg 2 spray(s), Nostril, each, qDay pantoprazole 40 mg VIAL 40 mg, IV Push, qDayAC traZODONE 50 mg Tablet 50 mg 1 tab(s), Oral, qHS Continuous: (0) PRN: (10) acetaminophen 325 mg Tablet 650 mg 2 tab(s), Oral, q4h acetaminophen-OXYcodone 325 mg-5 mg Tablet 2 tab(s), Oral, q4h albuterol - ipratropium 2.5 mg-0.5 mg/3 mL Inhal Laura UD 3 mL, Inhalation, q4hRT dextrose 50% Solution Disp syringe 50 mL 12.5 gram(s) 25 mL, IV Push, AsDirected hydromorphone 1 mg/mL (1mL) INJ 1 mg 1 mL, IV Push, q3h melatonin 3 mg tablet 3 mg 1 tab(s), Oral, qHS melatonin 3 mg tablet 3 mg 1 tab(s), Oral, qHS polyethylene glycol 3350 - UD packet 17 gram(s) 15 mL, Oral, qDay prochlorperazine 10 mg/2 mL vial 5 mg 1 mL, IV Push, q6hr trimethobenzamide 200 mg/2 mL Solution 200 mg 2 mL, Intramuscular, q6h Lab Results 04/27 04:55 WBC: 22.3 H Hgb: 8.3 L Hct: 25.1 L Platelet: 298 Glucose Level: 81 L Sodium Level: 138 Potassium Level: 3.6 BUN: 13.0 Creatinine Lvl (s): 0.96 04/26 06:24 WBC: 26.7 H Hgb: 9.0 L Hct: 27.5 L Platelet: 276 Glucose Level: 87 Sodium Level: 136 Potassium Level: 3.6 BUN: 18.0 Creatinine Lvl (s): 1.06 Imaging Results and Diagnostics XR Abdomen 2 Views w/ Decub/Erect Result Date: April 26, 2024 Verified By: REN SALCEDO DO CLINICAL STATEMENT: IMPRESSION: No evidence of bowel obstruction. US Renal Result Date: April 26, 2024 Verified By: REN SALCEDO DO CLINICAL STATEMENT: IMPRESSION: 1. New 3.1 cm isoechoic mass in the right kidney. This does not displaysignificant vascular flow. This may reflect a complex cyst, pyelonephritis,or a solid renal mass.2. Stable bilateral renal cysts. 04/24 TTE Summary: 1. Left ventricle: The cavity size is normal. Wall thickness is mildly increased. Systolic function is vigorous. The estimated ejection fraction is 65-70%. Wall motion is normal; there are no regional wall motion abnormalities. Normal diastolic function. 2. Ventricular septum: Thickness is mildly increased. 3. Aortic valve: There is moderate regurgitation. There is no holodiastolic reversal in descending and abdominal aorta. 4. Left atrium: The atrium is mildly dilated. 5. Right ventricle: The RV systolic pressure by Doppler is 38 mm Hg. 6. Right atrium: The estimated right atrial pressure is 15 mm Hg. 04/27/2024 CT Abdomen/Pelvis Pending completion and results Problem List 1. E. coli UTI 2. Bacteremia 3. Acute PE 4. Acute hypoxic respiratory failure 5. CKD stage III Digitally Signed by Lisa Jimenez RN on 04/27/2024 09:31 AM [facility] [place] 04-26-2024 Orthopaedic surgery Consult note Date of Service 04/25 Reason for Consultation Left hip avascular necrosis Referring Physician Medicine History of Present Illness Patient is a 68-year-old female who presents to [facility] for other medical conditions, however was noted to have avascular necrosis on CT scan of her left hip. Orthopedics consulted. Patient seen and examined at bedside. She reports her left hip has been hurting for about 6 months. She reports no inciting injury or trauma to the left hip. She reports that it continue to progress in severity. She reports she does not walk with a cane or walker, and has been walking on the hip as recently as today without too much issue. She reports pain with ambulation. She reports no trauma to the hip. No recent falls. Reports she lives at home. Has assistance at home. Reports no orthopedic history about the left lower extremity. Reports no other needs at this time. Reports no history of steroid use, thyroid issues, anemia, diabetes, sickle cell. Review of Systems Pertinent positives and negative were listed above. All other systems reviewed were negative. Physical Exam Vitals and Measurements T: 35.7 C (Rectal) TMIN: 35.0 C (Rectal) TMAX: 36.5 C (Oral) HR: 70 RR: 16 BP: 134/66 SpO2: 95% Weight Dosing Weight: 65.6 kg (04/24/24) General: NAD, A&Ox3 HEENT: normocephalic, atraumatic, EOMI intact CV: pulses regular throughout, brisk cap refill throughout, Pulm: normal work of breathing, equal chest rise bilaterally, no intercostal retractions or conversational dyspnea GI: abdomen is soft, nontender, nondistended, no rigidity or guarding Psych: calm and cooperative Left lower extremity: -Skin pink and well perfused -Sensation intact to light touch L3-S1 -Gross motor function intact to dorsi/plantarflexion of ankle and toes -DP, TP pulses palpable -Compartments are soft and compressible -No calf tenderness Lab Results 04/25 02:44 WBC: 24.1 H Hgb: 6.3 C Hct: 19.4 L Platelet: 236 Glucose Level: 105 Sodium Level: 128 L Potassium Level: 3.8 BUN: 27.0 H Creatinine Lvl (s): 1.26 H 04/24 05:26 WBC: 31.7 H Hgb: 7.3 L Hct: 22.1 L Platelet: 231 Glucose Level: 111 Sodium Level: 129 L Potassium Level: 4.0 BUN: 24.0 H Creatinine Lvl (s): 1.36 H Imaging Results and Diagnostics I independently reviewed the following imaging: AP pelvis: Demonstrates bilateral arthritis in the hips CT angio: Demonstrates left femoral head AVN Assessment/Plan 1. Left hip avascular necrosis -No acute surgical intervention from orthopedic surgery. -Patient likely needs to be followed for a total hip arthroplasty evaluation in outpatient setting. Referral provided in discharge instructions. -Weightbearing as tolerated, PT OT as able -Remainder of care per primary discussed with Dr. [facility] to sign off, please page with further concerns Problem List/Past Medical History Ongoing Anemia B12 deficiency anemia Bronchitis CABG - Coronary artery bypass graft CAD - Coronary artery disease Carotid stenosis, bilateral CKD (chronic kidney disease) Constipation Cystocele with prolapse Depression Glasses Headache Heart disease High risk medication use History of carotid endarterectomy History of PTCA Hx of CABG Hypertension HYPERTENSION, ESSENTIAL Insomnia Irritable bowel syndrome Lipoma Medicare annual wellness visit, subsequent Nephrolithiasis Osteoarthritis Osteopenia of femoral neck Preop cardiovascular exam S/P PTCA (PERCUTANEOUS TRANSLUMINAL CORONARY ANGIOPLASTY) Seasonal allergy SOB (shortness of breath) Spasm of back muscles Thoracic outlet syndrome Historical Bowel obstruction Chest pain in adult Insomnia Procedure/Surgical History Cardiac catheterization: 03/11/23 Endarterectomy: 01/04/20 Nerve conduction study: 02/06/17 Duplex ultrasound, carotid: 11/14/16 Lithotripsy: 2007 CABG x 1 - Coronary artery bypass graft x 1 Colonoscopy Abdominal hysterectomy section Cholecystectomy Carotid artery Medications Inpatient atorvastatin, 40 mg= 1 tab(s), Oral, qHS calcium carbonate, 1250 mg= 1 tab(s), Oral, qDay carvedilol 12.5 mg oral tablet, 12.5 mg= 1 tab(s), Oral, BIDM clopidogrel, 75 mg= 1 tab(s), Oral, qDay Compazine, 5 mg= 1 mL, IV Push, q6hr, PRN Dextrose 50% IV Push, 12.5 gram(s)= 25 mL, IV Push, AsDirected, PRN Dilaudid, 1 mg= 1 mL, IV Push, q3h, PRN DuoNeb, 3 mL, Inhalation, q4hRT, PRN eszopiclone, 3 mg= 1 tab(s), Oral, qHS fluticasone 50 mcg/inh NASAL spray, 100 mcg= 2 spray(s), Nostril, each, qDay Heparin for IV 25,000 unit(s) [18 unit(s)/kg/hr] + Dextrose 5% Premix Diluent 250 mL Heparin HBW Bolus 5000 units/mL, 4270 unit(s)= 0.85 mL, 70 unit(s)/kg, IV Push, q6h, PRN Heparin HBW Bolus 5000 units/mL, 2440 unit(s)= 0.49 mL, 40 unit(s)/kg, IV Push, q6h, PRN melatonin, 3 mg= 1 tab(s), Oral, qHS, PRN melatonin, 3 mg= 1 tab(s), Oral, qHS, PRN Miralax Powder Packet, 17 gram(s)= 15 mL, Oral, qDay, PRN NS 1,000 mL, 1000 mL, Intravenous pantoprazole IV Push, 40 mg, IV Push, qDayAC Percocet 325/5, 2 tab(s), Oral, q4h, PRN Rocephin, 2 gram(s)= 20 mL, IV Push (INT), qDay Tigan, 200 mg= 2 mL, Intramuscular, q6h, PRN traZODone, 50 mg= 1 tab(s), Oral, qHS Tylenol, 650 mg= 2 tab(s), Oral, q4h, PRN Vitamin B12, 1000 mcg= 2 tab(s), Oral, qDay Vitamin D3 125 mcg (5000 intl units) oral capsule, 125 mcg= 1 cap(s), Oral, qDay Home aspirin 81 mg oral tablet, chewable, 81 mg= 1 tab(s), Oral, Daily, 11 refills atorvastatin 40 mg oral tablet, 40 mg= 1 tab(s), Oral, qHS, 3 refills calcium (as carbonate) 600 mg oral tablet, 1200 mg= 2 tab(s), Oral, qDay, PRN carvedilol 12.5 mg oral tablet, 12.5 mg= 1 tab(s), Oral, BIDM clobetasol 0.05% topical cream, 1 juli, Topical, BID, 3 refills, Not taking clopidogrel 75 mg oral tablet, 75 mg= 1 tab(s), Oral, qDay, 3 refills DULoxetine 60 mg oral delayed release capsule, 60 mg= 1 cap(s), Oral, qDay, 3 refills eszopiclone 3 mg oral tablet, 3 mg= 1 tab(s), Oral, qHS fluticasone 50 mcg/inh NASAL spray, 100 mcg= 2 spray(s), Nostril, each, qDay MiraLax oral powder for reconstitution, 17 gram(s), Oral, qDay ondansetron 4 mg oral tablet, disintegrating, 4 mg= 1 tab(s), Oral, q6hr, PRN traZODone 50 mg oral tablet, 50 mg= 1 tab(s), Oral, qHS, 3 refills Tylenol Extra Strength 500 mg oral tablet, 1000 mg= 2 tab(s), Oral, QID, PRN Vitamin B12 500 mcg oral tablet, 1000 mcg= 2 tab(s), Oral, qDay, 3 refills Vitamin D3 125 mcg (5000 intl units) oral capsule, 125 mcg= 1 cap(s), Oral, qDay Allergies Ultram confusion codeine nausea lisinopril Cough traMADol Unknown Social History Smoking Status - 07/09/2018 Never smoker Alcohol - Denies Alcohol Use, 07/09/2018 Use: Never., 07/17/2019 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 Appetite Good. Eating Difficulties None. Caffeine intake amount: None., 05/01/2022 Substance Abuse - Denies Substance Abuse, 07/09/2018 Use: Never., 07/17/2019 Tobacco Nicotine Use: Former smoker, quit more than 30 days ago., 12/06/2022 Family History Cancer: Father, Sister and Brother. Heart disease: Mother, Sister and Brother. Health Status Family Member(s) Immunizations pneumococcal 13-valent conjugate vaccine: 0.5 unknown unit (06/19/18) pneumococcal 13-valent conjugate vaccine: 0 unknown unit (10/21/12) pneumococcal 23-valent vaccine(Pneumovax: 0 unknown unit (09/19/12) SARS-CoV-2 mRNA (tozinameran) vaccine: 0.3 unknown unit (07/31/21) SARS-CoV-2 mRNA (tozinameran) vaccine: 0.3 unknown unit (11/22/20) SARS-CoV-2 mRNA (tozinameran) vaccine: 0.3 unknown unit (11/01/20) tetanus/diphth/pertuss (Tdap) adult/adol: 0.5 mL (03/03/24) zoster vaccine live: 0 unknown unit (04/14/16) zoster vaccine live: 0 unknown unit (09/19/14) Digitally Signed by APRIL CARO DO on 04/25/2024 05:03 PM [facility] [place] 04-26-2024 Infectious disease Consult note Date of Service Reason for Consultation UTI, bacteremia Referring Physician Dr. Lopez History of Present Illness 68-year-old female with past medical history of coronary artery disease status post CABG, bilateral carotid stenosis status post carotid enterectomy, hypertension, chronic anemia, CKD, depression, thoracic outlet syndrome, recent avascular necrosis of the left hip as a transfer from [place] with shortness of breath, altered mental status, nausea, vomiting and chills. She recently had fall last week and injured her left hip and was seen initially in the ER due to this and was found to have avascular necrosis and was sent home. A few days later, patient developed the above symptoms so came to the ER and was transferred from [place]. She does have history of cholecystectomy. Patient was found to be hypoxic requiring 2 L nasal cannula. Labs on admission significant for leukocytosis of 31,000, creatinine 1.62, proBNP 10,946, troponin 468, transaminitis with alk phos 151, AST 595 and ALT 350. Chest x-ray shows low lung field opacities, atelectasis. CTA of the chest shows right upper lobe PE, small right and trace left pleural effusions with atelectasis. On previous admission, urinalysis was unremarkable. Urine culture grew E. coli. Blood cultures x 2 positive for E. coli. Repeat blood cultures show no growth to date. Empirically on ceftriaxone. ID consulted for UTI, bacteremia. Patient seen and independently evaluated at bedside. She is resting up in the chair comfortably in no acute distress. Complains of left hip pain and low back pain. Initially complained of urinary urgency. No dysuria or urinary frequency. Complains of abdominal pain, nausea, vomiting. No diarrhea. No back or joint pain. No shortness of breath or cough. Endorses chills, no fever or night sweats. Review of Systems Pertinent positives included within the HPI. Physical Exam Vitals and Measurements T: 36.2 C (Oral) TMIN: 35.0 C (Rectal) TMAX: 36.4 C (Oral) HR: 70 (Monitored) RR: 16 BP: 119/67 SpO2: 91% Weight Dosing Weight: 65.6 kg (04/24/24) General: No acute distress. Alert and Appropriate Skin: No rash. Warm, Dry, Intact HEENT: Head is normocephalic and atraumatic. No lesions. Pupils equal in size. Extraocular movements within normal limits. Nose: No septal deviation. Mouth: Oropharynx mucosa is without lesion. Neck: Supple. No lymphadenopathy, thyromegaly noted. Lungs: Respirations are unlabored, bilaterally clear breath sounds with no crepitation or wheeze. Cardiovascular: Heart is regular rhythm, S1S2, no murmur Abdomen: Abdomen is soft, tender in all quadrants and rounded. Bowel sounds positive all four quadrants. CVA tenderness is noted. Extremities: No clubbing, cyanosis or edema. Peripheral pulses palpable. Adequate peripheral circulation. Neurological: The patient is awake, oriented to person, place and time. Following simple commands, moving all extremities. Lab Results 04/26 06:24 WBC: 26.7 H Hgb: 9.0 L Hct: 27.5 L Platelet: 276 Glucose Level: 87 Sodium Level: 136 Potassium Level: 3.6 BUN: 18.0 Creatinine Lvl (s): 1.06 04/25 18:42 Hgb: 8.6 L Hct: 25.8 L 04/25 02:44 WBC: 24.1 H Hgb: 6.3 C Hct: 19.4 L Platelet: 236 Glucose Level: 105 Sodium Level: 128 L Potassium Level: 3.8 BUN: 27.0 H Creatinine Lvl (s): 1.26 H Imaging Results and Diagnostics NA Assessment/Plan 1. E. coli UTI 2. Bacteremia 3. Acute PE 4. Acute hypoxic respiratory failure 5. CKD stage III 68-year-old female with past medical history of multiple cardiac comorbidities, CKD presents with shortness of breath, nausea, vomiting and chills. Patient was found to be hypoxic requiring 2 L. Labs significant for leukocytosis of 31,000, creatinine 1.62, troponin 468, transaminitis. Found to have PE, UTI and bacteremia. ID has been consulted for UTI, bacteremia. #1 complicated UTI. Urinalysis is unremarkable. Urine culture grew E. coli with sensitivities. Complains of nausea, vomiting, fever and chills. CVA tenderness is noted. #2 bacteremia. Blood cultures x 2 positive for E. coli. Likely source of infection as complicated UTI. Repeat blood cultures show no growth to date. Leukocytosis trending downward to 23,000 and remains afebrile. Plan Recommend to obtain renal US to evaluate for intraabdominal source. Continue ceftriaxone. Recommend obtaining 2 sets of repeat blood cultures. Plan of care discussed in depth with patient. All questions answered. Dr. Abdul to resume service in the a.m. This is a shared/split visit with my collaborating physician Dr. Christian Yang. Any changes to the plan will be added to end as an addendum. Problem List/Past Medical History Ongoing Anemia B12 deficiency anemia Bronchitis CABG - Coronary artery bypass graft CAD - Coronary artery disease Carotid stenosis, bilateral CKD (chronic kidney disease) Constipation Cystocele with prolapse Depression Glasses Headache Heart disease High risk medication use History of carotid endarterectomy History of PTCA Hx of CABG Hypertension HYPERTENSION, ESSENTIAL Insomnia Irritable bowel syndrome Lipoma Medicare annual wellness visit, subsequent Nephrolithiasis Osteoarthritis Osteopenia of femoral neck Preop cardiovascular exam S/P PTCA (PERCUTANEOUS TRANSLUMINAL CORONARY ANGIOPLASTY) Seasonal allergy SOB (shortness of breath) Spasm of back muscles Thoracic outlet syndrome Historical Bowel obstruction Chest pain in adult Insomnia Procedure/Surgical History Cardiac catheterization: 03/11/23 Endarterectomy: 01/04/20 Nerve conduction study: 02/06/17 Duplex ultrasound, carotid: 11/14/16 Lithotripsy: 2007 CABG x 1 - Coronary artery bypass graft x 1 Colonoscopy Abdominal hysterectomy section Cholecystectomy Carotid artery Medications Inpatient atorvastatin, 40 mg= 1 tab(s), Oral, qHS calcium carbonate, 1250 mg= 1 tab(s), Oral, qDay carvedilol 12.5 mg oral tablet, 12.5 mg= 1 tab(s), Oral, BIDM clopidogrel, 75 mg= 1 tab(s), Oral, qDay Compazine, 5 mg= 1 mL, IV Push, q6hr, PRN Dextrose 50% IV Push, 12.5 gram(s)= 25 mL, IV Push, AsDirected, PRN Dilaudid, 1 mg= 1 mL, IV Push, q3h, PRN DuoNeb, 3 mL, Inhalation, q4hRT, PRN Eliquis, 10 mg= 2 tab(s), Oral, BID Eliquis, 5 mg= 1 tab(s), Oral, BID eszopiclone, 3 mg= 1 tab(s), Oral, qHS fluticasone 50 mcg/inh NASAL spray, 100 mcg= 2 spray(s), Nostril, each, qDay melatonin, 3 mg= 1 tab(s), Oral, qHS, PRN melatonin, 3 mg= 1 tab(s), Oral, qHS, PRN Miralax Powder Packet, 17 gram(s)= 15 mL, Oral, qDay, PRN pantoprazole IV Push, 40 mg, IV Push, qDayAC Percocet 325/5, 2 tab(s), Oral, q4h, PRN Rocephin, 2 gram(s)= 20 mL, IV Push (INT), qDay Tigan, 200 mg= 2 mL, Intramuscular, q6h, PRN traZODone, 50 mg= 1 tab(s), Oral, qHS Tylenol, 650 mg= 2 tab(s), Oral, q4h, PRN Vitamin B12, 1000 mcg= 2 tab(s), Oral, qDay Vitamin D3 125 mcg (5000 intl units) oral capsule, 125 mcg= 1 cap(s), Oral, qDay Home aspirin 81 mg oral tablet, chewable, 81 mg= 1 tab(s), Oral, Daily, 11 refills atorvastatin 40 mg oral tablet, 40 mg= 1 tab(s), Oral, qHS, 3 refills calcium (as carbonate) 600 mg oral tablet, 1200 mg= 2 tab(s), Oral, qDay, PRN carvedilol 12.5 mg oral tablet, 12.5 mg= 1 tab(s), Oral, BIDM clobetasol 0.05% topical cream, 1 juli, Topical, BID, 3 refills, Not taking clopidogrel 75 mg oral tablet, 75 mg= 1 tab(s), Oral, qDay, 3 refills DULoxetine 60 mg oral delayed release capsule, 60 mg= 1 cap(s), Oral, qDay, 3 refills eszopiclone 3 mg oral tablet, 3 mg= 1 tab(s), Oral, qHS fluticasone 50 mcg/inh NASAL spray, 100 mcg= 2 spray(s), Nostril, each, qDay MiraLax oral powder for reconstitution, 17 gram(s), Oral, qDay ondansetron 4 mg oral tablet, disintegrating, 4 mg= 1 tab(s), Oral, q6hr, PRN traZODone 50 mg oral tablet, 50 mg= 1 tab(s), Oral, qHS, 3 refills Tylenol Extra Strength 500 mg oral tablet, 1000 mg= 2 tab(s), Oral, QID, PRN Vitamin B12 500 mcg oral tablet, 1000 mcg= 2 tab(s), Oral, qDay, 3 refills Vitamin D3 125 mcg (5000 intl units) oral capsule, 125 mcg= 1 cap(s), Oral, qDay Allergies Ultram confusion codeine nausea lisinopril Cough traMADol Unknown Social History Smoking Status - 07/09/2018 Never smoker Alcohol - Denies Alcohol Use, 07/09/2018 Use: Never., 07/17/2019 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 Appetite Good. Eating Difficulties None. Caffeine intake amount: None., 05/01/2022 Substance Abuse - Denies Substance Abuse, 07/09/2018 Use: Never., 07/17/2019 Tobacco Nicotine Use: Former smoker, quit more than 30 days ago., 12/06/2022 Family History Cancer: Father, Sister and Brother. Heart disease: Mother, Sister and Brother. Health Status Family Member(s) Immunizations pneumococcal 13-valent conjugate vaccine: 0.5 unknown unit (06/19/18) pneumococcal 13-valent conjugate vaccine: 0 unknown unit (10/21/12) pneumococcal 23-valent vaccine(Pneumovax: 0 unknown unit (09/19/12) SARS-CoV-2 mRNA (tozinameran) vaccine: 0.3 unknown unit (07/31/21) SARS-CoV-2 mRNA (tozinameran) vaccine: 0.3 unknown unit (11/22/20) SARS-CoV-2 mRNA (tozinameran) vaccine: 0.3 unknown unit (11/01/20) tetanus/diphth/pertuss (Tdap) adult/adol: 0.5 mL (03/03/24) zoster vaccine live: 0 unknown unit (04/14/16) zoster vaccine live: 0 unknown unit (09/19/14) Digitally Signed by ELIZABETH LARA on 04/26/2024 12:49 PM [facility] [place] 04-26-2024 Note ORIGINAL EXAMINATION: TWO XRAY VIEWS OF THE ABDOMEN 04/26/2024 2:51 pm COMPARISON: None. HISTORY: ORDERING SYSTEM PROVIDED HISTORY: Reason for Exam: abd pain FINDINGS: Nonspecific bowel gas pattern without evidence of obstruction. No abnormal calcifications. No acute osseous abnormality. IMPRESSION: No evidence of bowel obstruction. Interpreted by: Ren Salcedo DO Preliminary Report By: Ren Salcedo DO Electronically signed By Ren Salcedo DO Dictated Date: 04/26/2024 3:23:05 PM Prelim Date: 04/26/2024 3:24:13 PM Sign Date: 04/26/2024 3:24:13 PM Ordering Provider: AGUILAR LOPEZ [facility] [place] 04-26-2024 Note ORIGINAL EXAMINATION: ULTRASOUND OF THE KIDNEYS 04/26/2024 1:44 pm COMPARISON: 05/24/2022 HISTORY: ORDERING SYSTEM PROVIDED HISTORY: Reason for Exam: bacteremia, UTI FINDINGS: Right and left kidneys measure 11.5 x 5.8 x 5.4 cm, and 10.5 x 4.4 x 5.1 cm respectively. The right kidney demonstrates a new isoechoic mass measuring 3.0 x 3.1 x 2.4 cm which does not display significant vascular flow. There is some posterior wall enhancement and through transmission but this does not reflect a simple cyst. There are 3 discrete simple cysts in the right kidney which are unchanged from prior study. There is a solitary 1.2 cm left renal cyst which is stable. There is no shadowing stone or hydronephrosis. Urinary bladder contains a volume of 59 mL of urine without bladder wall abnormality. IMPRESSION: 1. New 3.1 cm isoechoic mass in the right kidney. This does not display significant vascular flow. This may reflect a complex cyst, pyelonephritis, or a solid renal mass. 2. Stable bilateral renal cysts. Interpreted by: Ren Salcedo DO Preliminary Report By: Ren Salcedo DO Electronically signed By Ren Salcedo DO Dictated Date: 04/26/2024 1:45:54 PM Prelim Date: 04/26/2024 1:56:29 PM Sign Date: 04/26/2024 1:56:29 PM Ordering Provider: ELIZABETH [facility] 04-26-2024 Infectious disease Consult note Date of Service Reason for Consultation UTI, bacteremia Referring Physician Dr. Lopez History of Present Illness 68-year-old female with past medical history of coronary artery disease status post CABG, bilateral carotid stenosis status post carotid enterectomy, hypertension, chronic anemia, CKD, depression, thoracic outlet syndrome, recent avascular necrosis of the left hip as a transfer from [place] with shortness of breath, altered mental status, nausea, vomiting and chills. She recently had fall last week and injured her left hip and was seen initially in the ER due to this and was found to have avascular necrosis and was sent home. A few days later, patient developed the above symptoms so came to the ER and was transferred from [place]. She does have history of cholecystectomy. Patient was found to be hypoxic requiring 2 L nasal cannula. Labs on admission significant for leukocytosis of 31,000, creatinine 1.62, proBNP 10,946, troponin 468, transaminitis with alk phos 151, AST 595 and ALT 350. Chest x-ray shows low lung field opacities, atelectasis. CTA of the chest shows right upper lobe PE, small right and trace left pleural effusions with atelectasis. On previous admission, urinalysis was unremarkable. Urine culture grew E. coli. Blood cultures x 2 positive for E. coli. Repeat blood cultures show no growth to date. Empirically on ceftriaxone. ID consulted for UTI, bacteremia. Patient seen and independently evaluated at bedside. She is resting up in the chair comfortably in no acute distress. Complains of left hip pain and low back pain. Initially complained of urinary urgency. No dysuria or urinary frequency. Complains of abdominal pain, nausea, vomiting. No diarrhea. No back or joint pain. No shortness of breath or cough. Endorses chills, no fever or night sweats. Review of Systems Pertinent positives included within the HPI. Physical Exam Vitals and Measurements T: 36.2 C (Oral) TMIN: 35.0 C (Rectal) TMAX: 36.4 C (Oral) HR: 70 (Monitored) RR: 16 BP: 119/67 SpO2: 91% Weight Dosing Weight: 65.6 kg (04/24/24) General: No acute distress. Alert and Appropriate Skin: No rash. Warm, Dry, Intact HEENT: Head is normocephalic and atraumatic. No lesions. Pupils equal in size. Extraocular movements within normal limits. Nose: No septal deviation. Mouth: Oropharynx mucosa is without lesion. Neck: Supple. No lymphadenopathy, thyromegaly noted. Lungs: Respirations are unlabored, bilaterally clear breath sounds with no crepitation or wheeze. Cardiovascular: Heart is regular rhythm, S1S2, no murmur Abdomen: Abdomen is soft, tender in all quadrants and rounded. Bowel sounds positive all four quadrants. CVA tenderness is noted. Extremities: No clubbing, cyanosis or edema. Peripheral pulses palpable. Adequate peripheral circulation. Neurological: The patient is awake, oriented to person, place and time. Following simple commands, moving all extremities. Lab Results 04/26 06:24 WBC: 26.7 H Hgb: 9.0 L Hct: 27.5 L Platelet: 276 Glucose Level: 87 Sodium Level: 136 Potassium Level: 3.6 BUN: 18.0 Creatinine Lvl (s): 1.06 04/25 18:42 Hgb: 8.6 L Hct: 25.8 L 04/25 02:44 WBC: 24.1 H Hgb: 6.3 C Hct: 19.4 L Platelet: 236 Glucose Level: 105 Sodium Level: 128 L Potassium Level: 3.8 BUN: 27.0 H Creatinine Lvl (s): 1.26 H Imaging Results and Diagnostics NA Assessment/Plan 1. E. coli UTI 2. Bacteremia 3. Acute PE 4. Acute hypoxic respiratory failure 5. CKD stage III 68-year-old female with past medical history of multiple cardiac comorbidities, CKD presents with shortness of breath, nausea, vomiting and chills. Patient was found to be hypoxic requiring 2 L. Labs significant for leukocytosis of 31,000, creatinine 1.62, troponin 468, transaminitis. Found to have PE, UTI and bacteremia. ID has been consulted for UTI, bacteremia. #1 complicated UTI. Urinalysis is unremarkable. Urine culture grew E. coli with sensitivities. Complains of nausea, vomiting, fever and chills. CVA tenderness is noted. #2 bacteremia. Blood cultures x 2 positive for E. coli. Likely source of infection as complicated UTI. Repeat blood cultures show no growth to date. Leukocytosis trending downward to 23,000 and remains afebrile. Plan Recommend to obtain renal US to evaluate for intraabdominal source. Continue ceftriaxone. Recommend obtaining 2 sets of repeat blood cultures. Plan of care discussed in depth with patient. All questions answered. Dr. Abdul to resume service in the a.m. This is a shared/split visit with my collaborating physician Dr. Christian Yang. Any changes to the plan will be added to end as an addendum. Problem List/Past Medical History Ongoing Anemia B12 deficiency anemia Bronchitis CABG - Coronary artery bypass graft CAD - Coronary artery disease Carotid stenosis, bilateral CKD (chronic kidney disease) Constipation Cystocele with prolapse Depression Glasses Headache Heart disease High risk medication use History of carotid endarterectomy History of PTCA Hx of CABG Hypertension HYPERTENSION, ESSENTIAL Insomnia Irritable bowel syndrome Lipoma Medicare annual wellness visit, subsequent Nephrolithiasis Osteoarthritis Osteopenia of femoral neck Preop cardiovascular exam S/P PTCA (PERCUTANEOUS TRANSLUMINAL CORONARY ANGIOPLASTY) Seasonal allergy SOB (shortness of breath) Spasm of back muscles Thoracic outlet syndrome Historical Bowel obstruction Chest pain in adult Insomnia Procedure/Surgical History Cardiac catheterization: 03/11/23 Endarterectomy: 01/04/20 Nerve conduction study: 02/06/17 Duplex ultrasound, carotid: 11/14/16 Lithotripsy: 2007 CABG x 1 - Coronary artery bypass graft x 1 Colonoscopy Abdominal hysterectomy section Cholecystectomy Carotid artery Medications Inpatient atorvastatin, 40 mg= 1 tab(s), Oral, qHS calcium carbonate, 1250 mg= 1 tab(s), Oral, qDay carvedilol 12.5 mg oral tablet, 12.5 mg= 1 tab(s), Oral, BIDM clopidogrel, 75 mg= 1 tab(s), Oral, qDay Compazine, 5 mg= 1 mL, IV Push, q6hr, PRN Dextrose 50% IV Push, 12.5 gram(s)= 25 mL, IV Push, AsDirected, PRN Dilaudid, 1 mg= 1 mL, IV Push, q3h, PRN DuoNeb, 3 mL, Inhalation, q4hRT, PRN Eliquis, 10 mg= 2 tab(s), Oral, BID Eliquis, 5 mg= 1 tab(s), Oral, BID eszopiclone, 3 mg= 1 tab(s), Oral, qHS fluticasone 50 mcg/inh NASAL spray, 100 mcg= 2 spray(s), Nostril, each, qDay melatonin, 3 mg= 1 tab(s), Oral, qHS, PRN melatonin, 3 mg= 1 tab(s), Oral, qHS, PRN Miralax Powder Packet, 17 gram(s)= 15 mL, Oral, qDay, PRN pantoprazole IV Push, 40 mg, IV Push, qDayAC Percocet 325/5, 2 tab(s), Oral, q4h, PRN Rocephin, 2 gram(s)= 20 mL, IV Push (INT), qDay Tigan, 200 mg= 2 mL, Intramuscular, q6h, PRN traZODone, 50 mg= 1 tab(s), Oral, qHS Tylenol, 650 mg= 2 tab(s), Oral, q4h, PRN Vitamin B12, 1000 mcg= 2 tab(s), Oral, qDay Vitamin D3 125 mcg (5000 intl units) oral capsule, 125 mcg= 1 cap(s), Oral, qDay Home aspirin 81 mg oral tablet, chewable, 81 mg= 1 tab(s), Oral, Daily, 11 refills atorvastatin 40 mg oral tablet, 40 mg= 1 tab(s), Oral, qHS, 3 refills calcium (as carbonate) 600 mg oral tablet, 1200 mg= 2 tab(s), Oral, qDay, PRN carvedilol 12.5 mg oral tablet, 12.5 mg= 1 tab(s), Oral, BIDM clobetasol 0.05% topical cream, 1 juli, Topical, BID, 3 refills, Not taking clopidogrel 75 mg oral tablet, 75 mg= 1 tab(s), Oral, qDay, 3 refills DULoxetine 60 mg oral delayed release capsule, 60 mg= 1 cap(s), Oral, qDay, 3 refills eszopiclone 3 mg oral tablet, 3 mg= 1 tab(s), Oral, qHS fluticasone 50 mcg/inh NASAL spray, 100 mcg= 2 spray(s), Nostril, each, qDay MiraLax oral powder for reconstitution, 17 gram(s), Oral, qDay ondansetron 4 mg oral tablet, disintegrating, 4 mg= 1 tab(s), Oral, q6hr, PRN traZODone 50 mg oral tablet, 50 mg= 1 tab(s), Oral, qHS, 3 refills Tylenol Extra Strength 500 mg oral tablet, 1000 mg= 2 tab(s), Oral, QID, PRN Vitamin B12 500 mcg oral tablet, 1000 mcg= 2 tab(s), Oral, qDay, 3 refills Vitamin D3 125 mcg (5000 intl units) oral capsule, 125 mcg= 1 cap(s), Oral, qDay Allergies Ultram confusion codeine nausea lisinopril Cough traMADol Unknown Social History Smoking Status - 07/09/2018 Never smoker Alcohol - Denies Alcohol Use, 07/09/2018 Use: Never., 07/17/2019 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 Appetite Good. Eating Difficulties None. Caffeine intake amount: None., 05/01/2022 Substance Abuse - Denies Substance Abuse, 07/09/2018 Use: Never., 07/17/2019 Tobacco Nicotine Use: Former smoker, quit more than 30 days ago., 12/06/2022 Family History Cancer: Father, Sister and Brother. Heart disease: Mother, Sister and Brother. Health Status Family Member(s) Immunizations pneumococcal 13-valent conjugate vaccine: 0.5 unknown unit (06/19/18) pneumococcal 13-valent conjugate vaccine: 0 unknown unit (10/21/12) pneumococcal 23-valent vaccine(Pneumovax: 0 unknown unit (09/19/12) SARS-CoV-2 mRNA (tozinameran) vaccine: 0.3 unknown unit (07/31/21) SARS-CoV-2 mRNA (tozinameran) vaccine: 0.3 unknown unit (11/22/20) SARS-CoV-2 mRNA (tozinameran) vaccine: 0.3 unknown unit (11/01/20) tetanus/diphth/pertuss (Tdap) adult/adol: 0.5 mL (03/03/24) zoster vaccine live: 0 unknown unit (04/14/16) zoster vaccine live: 0 unknown unit (09/19/14) Digitally Signed by ELIZABETH LARA on 04/26/2024 12:49 PM [facility] 04-26-2024 Note . MICRO - Microbiology PROCEDURE: Blood Culture (bacterial) [*1] SOURCE: Blood BODY SITE: COLLECTED DATE/TIME: 04/23/2024 21:31 EDT RECEIVED DATE/TIME: 04/24/2024 14:11 EDT START DATE/TIME: 04/24/2024 14:11 EDT FREE TEXT SOURCE: FINAL REPORTS Final Report [] Verified Date/Time/Personnel: 04/26/2024 07:36 EDT Escherichia coli Isolated from anaerobe bottle only. PRELIMINARY REPORTS Preliminary Report [] Verified Date/Time/Personnel: 04/25/2024 11:01 EDT Escherichia coli Isolated from anaerobe bottle only. ILIR to follow Preliminary Report [] Verified Date/Time/Personnel: 04/24/2024 14:59 EDT Culture has been received in lab and is no growth to date. Routine cultures are held for 5 days. STAINS GSANA [] Verified Date/Time/Personnel: 04/24/2024 22:46 EDT Gram Negative Rods SUSCEPTIBILITY RESULTS Escherichia coli Antibiotic ILIR Dilut ILIR Inter Amikacin <=16 Susceptible Amoxicillin/ <=8/4 Susceptible Clavulanate Ampicillin >16 Resistant Ampicillin/ 16/8 Intermediate Sulbactam Aztreonam <=4 Susceptible Cefazolin <=2 Susceptible Cefotaxime <=2 Susceptible Ciprofloxacin <=0.25 Susceptible Ertapenem <=0.5 Susceptible Gentamicin <=2 Susceptible ID Panel Not Not Applicable Applicable Imipenem <=1 Susceptible Levofloxacin <=0.5 Susceptible Meropenem <=1 Susceptible Minocycline >8 Resistant Moxifloxacin <=2 Susceptible Piperacillin/ <=8 Susceptible Tazobactam Tetracycline >8 Resistant Trimethoprim/ >2/38 Resistant Sulfa Performing Locations *1: This test was performed at: [facility], [address] [place] [address], [id number] , [facility] ([place]) 04-25-2024 Orthopaedic surgery Consult note Date of Service 04/25 Reason for Consultation Left hip avascular necrosis Referring Physician Medicine History of Present Illness Patient is a 68-year-old female who presents to [facility] for other medical conditions, however was noted to have avascular necrosis on CT scan of her left hip. Orthopedics consulted. Patient seen and examined at bedside. She reports her left hip has been hurting for about 6 months. She reports no inciting injury or trauma to the left hip. She reports that it continue to progress in severity. She reports she does not walk with a cane or walker, and has been walking on the hip as recently as today without too much issue. She reports pain with ambulation. She reports no trauma to the hip. No recent falls. Reports she lives at home. Has assistance at home. Reports no orthopedic history about the left lower extremity. Reports no other needs at this time. Reports no history of steroid use, thyroid issues, anemia, diabetes, sickle cell. Review of Systems Pertinent positives and negative were listed above. All other systems reviewed were negative. Physical Exam Vitals and Measurements T: 35.7 C (Rectal) TMIN: 35.0 C (Rectal) TMAX: 36.5 C (Oral) HR: 70 RR: 16 BP: 134/66 SpO2: 95% Weight Dosing Weight: 65.6 kg (04/24/24) General: NAD, A&Ox3 HEENT: normocephalic, atraumatic, EOMI intact CV: pulses regular throughout, brisk cap refill throughout, Pulm: normal work of breathing, equal chest rise bilaterally, no intercostal retractions or conversational dyspnea GI: abdomen is soft, nontender, nondistended, no rigidity or guarding Psych: calm and cooperative Left lower extremity: -Skin pink and well perfused -Sensation intact to light touch L3-S1 -Gross motor function intact to dorsi/plantarflexion of ankle and toes -DP, TP pulses palpable -Compartments are soft and compressible -No calf tenderness Lab Results 04/25 02:44 WBC: 24.1 H Hgb: 6.3 C Hct: 19.4 L Platelet: 236 Glucose Level: 105 Sodium Level: 128 L Potassium Level: 3.8 BUN: 27.0 H Creatinine Lvl (s): 1.26 H 04/24 05:26 WBC: 31.7 H Hgb: 7.3 L Hct: 22.1 L Platelet: 231 Glucose Level: 111 Sodium Level: 129 L Potassium Level: 4.0 BUN: 24.0 H Creatinine Lvl (s): 1.36 H Imaging Results and Diagnostics I independently reviewed the following imaging: AP pelvis: Demonstrates bilateral arthritis in the hips CT angio: Demonstrates left femoral head AVN Assessment/Plan 1. Left hip avascular necrosis -No acute surgical intervention from orthopedic surgery. -Patient likely needs to be followed for a total hip arthroplasty evaluation in outpatient setting. Referral provided in discharge instructions. -Weightbearing as tolerated, PT OT as able -Remainder of care per primary discussed with Dr. [facility] to sign off, please page with further concerns Problem List/Past Medical History Ongoing Anemia B12 deficiency anemia Bronchitis CABG - Coronary artery bypass graft CAD - Coronary artery disease Carotid stenosis, bilateral CKD (chronic kidney disease) Constipation Cystocele with prolapse Depression Glasses Headache Heart disease High risk medication use History of carotid endarterectomy History of PTCA Hx of CABG Hypertension HYPERTENSION, ESSENTIAL Insomnia Irritable bowel syndrome Lipoma Medicare annual wellness visit, subsequent Nephrolithiasis Osteoarthritis Osteopenia of femoral neck Preop cardiovascular exam S/P PTCA (PERCUTANEOUS TRANSLUMINAL CORONARY ANGIOPLASTY) Seasonal allergy SOB (shortness of breath) Spasm of back muscles Thoracic outlet syndrome Historical Bowel obstruction Chest pain in adult Insomnia Procedure/Surgical History Cardiac catheterization: 03/11/23 Endarterectomy: 01/04/20 Nerve conduction study: 02/06/17 Duplex ultrasound, carotid: 11/14/16 Lithotripsy: 2007 CABG x 1 - Coronary artery bypass graft x 1 Colonoscopy Abdominal hysterectomy section Cholecystectomy Carotid artery Medications Inpatient atorvastatin, 40 mg= 1 tab(s), Oral, qHS calcium carbonate, 1250 mg= 1 tab(s), Oral, qDay carvedilol 12.5 mg oral tablet, 12.5 mg= 1 tab(s), Oral, BIDM clopidogrel, 75 mg= 1 tab(s), Oral, qDay Compazine, 5 mg= 1 mL, IV Push, q6hr, PRN Dextrose 50% IV Push, 12.5 gram(s)= 25 mL, IV Push, AsDirected, PRN Dilaudid, 1 mg= 1 mL, IV Push, q3h, PRN DuoNeb, 3 mL, Inhalation, q4hRT, PRN eszopiclone, 3 mg= 1 tab(s), Oral, qHS fluticasone 50 mcg/inh NASAL spray, 100 mcg= 2 spray(s), Nostril, each, qDay Heparin for IV 25,000 unit(s) [18 unit(s)/kg/hr] + Dextrose 5% Premix Diluent 250 mL Heparin HBW Bolus 5000 units/mL, 4270 unit(s)= 0.85 mL, 70 unit(s)/kg, IV Push, q6h, PRN Heparin HBW Bolus 5000 units/mL, 2440 unit(s)= 0.49 mL, 40 unit(s)/kg, IV Push, q6h, PRN melatonin, 3 mg= 1 tab(s), Oral, qHS, PRN melatonin, 3 mg= 1 tab(s), Oral, qHS, PRN Miralax Powder Packet, 17 gram(s)= 15 mL, Oral, qDay, PRN NS 1,000 mL, 1000 mL, Intravenous pantoprazole IV Push, 40 mg, IV Push, qDayAC Percocet 325/5, 2 tab(s), Oral, q4h, PRN Rocephin, 2 gram(s)= 20 mL, IV Push (INT), qDay Tigan, 200 mg= 2 mL, Intramuscular, q6h, PRN traZODone, 50 mg= 1 tab(s), Oral, qHS Tylenol, 650 mg= 2 tab(s), Oral, q4h, PRN Vitamin B12, 1000 mcg= 2 tab(s), Oral, qDay Vitamin D3 125 mcg (5000 intl units) oral capsule, 125 mcg= 1 cap(s), Oral, qDay Home aspirin 81 mg oral tablet, chewable, 81 mg= 1 tab(s), Oral, Daily, 11 refills atorvastatin 40 mg oral tablet, 40 mg= 1 tab(s), Oral, qHS, 3 refills calcium (as carbonate) 600 mg oral tablet, 1200 mg= 2 tab(s), Oral, qDay, PRN carvedilol 12.5 mg oral tablet, 12.5 mg= 1 tab(s), Oral, BIDM clobetasol 0.05% topical cream, 1 juli, Topical, BID, 3 refills, Not taking clopidogrel 75 mg oral tablet, 75 mg= 1 tab(s), Oral, qDay, 3 refills DULoxetine 60 mg oral delayed release capsule, 60 mg= 1 cap(s), Oral, qDay, 3 refills eszopiclone 3 mg oral tablet, 3 mg= 1 tab(s), Oral, qHS fluticasone 50 mcg/inh NASAL spray, 100 mcg= 2 spray(s), Nostril, each, qDay MiraLax oral powder for reconstitution, 17 gram(s), Oral, qDay ondansetron 4 mg oral tablet, disintegrating, 4 mg= 1 tab(s), Oral, q6hr, PRN traZODone 50 mg oral tablet, 50 mg= 1 tab(s), Oral, qHS, 3 refills Tylenol Extra Strength 500 mg oral tablet, 1000 mg= 2 tab(s), Oral, QID, PRN Vitamin B12 500 mcg oral tablet, 1000 mcg= 2 tab(s), Oral, qDay, 3 refills Vitamin D3 125 mcg (5000 intl units) oral capsule, 125 mcg= 1 cap(s), Oral, qDay Allergies Ultram confusion codeine nausea lisinopril Cough traMADol Unknown Social History Smoking Status - 07/09/2018 Never smoker Alcohol - Denies Alcohol Use, 07/09/2018 Use: Never., 07/17/2019 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 Appetite Good. Eating Difficulties None. Caffeine intake amount: None., 05/01/2022 Substance Abuse - Denies Substance Abuse, 07/09/2018 Use: Never., 07/17/2019 Tobacco Nicotine Use: Former smoker, quit more than 30 days ago., 12/06/2022 Family History Cancer: Father, Sister and Brother. Heart disease: Mother, Sister and Brother. Health Status Family Member(s) Immunizations pneumococcal 13-valent conjugate vaccine: 0.5 unknown unit (06/19/18) pneumococcal 13-valent conjugate vaccine: 0 unknown unit (10/21/12) pneumococcal 23-valent vaccine(Pneumovax: 0 unknown unit (09/19/12) SARS-CoV-2 mRNA (tozinameran) vaccine: 0.3 unknown unit (07/31/21) SARS-CoV-2 mRNA (tozinameran) vaccine: 0.3 unknown unit (11/22/20) SARS-CoV-2 mRNA (tozinameran) vaccine: 0.3 unknown unit (11/01/20) tetanus/diphth/pertuss (Tdap) adult/adol: 0.5 mL (03/03/24) zoster vaccine live: 0 unknown unit (04/14/16) zoster vaccine live: 0 unknown unit (09/19/14) Digitally Signed by APRIL CARO DO on 04/25/2024 05:03 PM [facility] 04-25-2024 Cardiology Consult note Date of Service April 20, 2024 Reason for Consultation Elevated troponin Referring Physician Hospitalist History of Present Illness 68-year-old female with medical history significant for history of stents to the RCA failed stent to the LAD and up with MIDCAB, MIDCAB COTO to LAD in 2011, PCI to RCA February 2023, hypertension, carotid stenosis status post left carotid endarterectomy x 2, presents to the ER on 04/24/2024 with complaints of shortness of breath. Was recently discharged from [facility] due to decreased ambulation left hip pain, diagnosed to have avascular necrosis unknown provoking factor, CTA on admission showed distal right upper lobe segmental pulmonary embolus no right heart strain. Cardiology has been consulted for elevated troponins, 468--->[phone]--->611 then trended down CATH February 2023 Percutaneous intervention on the 70% stenosis in the mid right coronary. Balloon angioplasty. Stent placement. SUMMARY: 1. 1st lesion: Stent placement was performed. A 3.5 mm (D) x 28 mm (L), Synergy XD stent was used. The stent was advanced across the lesion and deployed with two inflations and a maximum pressure of 12 rigoberto. 2. Left ventricle: Systolic function is normal. The estimated ejection fraction is 55-60%. Hypokinesis of the inferolateral myocardium. 3. LAD: Proximal vessel lesion: There is an 80% stenosis. Mid-vessel lesion: There is a 100% chronic total occlusion. 4. Right coronary: Mid-vessel lesion: The diagnostic study demonstrated a diffuse, 70% stenosis. The distal vessel supplies a moderate-sized vascular territory. The lesion is a likely culprit for the patient's clinical presentation. The lesion presents an ACC/AHA type B moderate risk lesion for intervention. Stent placement was performed, with balloon angioplasty, resulting in an excellent angiographic appearance (see 1st lesion). Following intervention, there is a residual 0% stenosis with MONIQUE grade 3 flow (brisk flow). IMPRESSIONS: Severe CAD in kashia. Patent COTO to LAD. Patent Left subclavian stent. Severe Stenosis involving the RCA distal to the prior stent s/p PCI with SONIA. Stress test Lexiscan Jul 2022 (prior to cath) IMPRESSION: 1. Possible small area of mild ischemia involving distal lateral segment versus shifting breast attenuation artifact. 2. Normal systolic function with ejection fraction greater than 70%. 3. Prior study in 2019 had similar but less reversible defect in the apical lateral segment suggesting this is likely artifactual. Review of Systems 12 point ROS negative unless mentioned in HPI Physical Exam Vitals and Measurements T: 36.2 C (Oral) HR: 82 (Monitored) RR: 36 BP: 116/54 SpO2: 93% HT: 155 cm WT: 65.6 kg BMI: 27.3 Weight Dosing Weight: 65.6 kg (04/24/24) Constitutional: Oriented to time, place, and person - well developed - well nourished Cardiovascular: JVD not elevated, S1 S2 present,No added sounds, no lower extremity edema Abdomen: soft Musculoskeletal system: general/bilateral Normal movement of all extremities. Skin: color and pigmentation is normal Lab Results 04/24 05:26 WBC: 31.7 H Hgb: 7.3 L Hct: 22.1 L Platelet: 231 Glucose Level: 111 Sodium Level: 129 L Potassium Level: 4.0 BUN: 24.0 H Creatinine Lvl (s): 1.36 H Assessment/Plan Elevated troponin History of CAD status post MIDCAB, PCI to RCA February 2023 Hypertension Carotid stenosis status post left carotid endarterectomy Transaminitis, unclear reason for elevation CRYSTAL on CKD stag baseline Cr 1.2-1.3, improving Acute on chronic anemia baseline around 10 to 10 to 11 mg per DL, currently around 7.3 We are consulted due to elevated troponins and EKG changes. Patient's PE does not seem to explain the T wave inversions on EKG. Echocardiogram preliminary appears normal EF without significant RV strain. Troponin trend fairly flat However given the fact that her hemoglobin is trending down to 7.3, patient has no complaints of gross bleeding, this will need to be worked up prior to last pursuing any workup. Whenever she has required stents in the past her predominant symptom has been shortness of breath rather than chest pain. We will order iron studies, discussed with primary team regarding anemia as well. When switching over from IV heparin to Eliquis, aspirin can be stopped, patient can be discharged with Eliquis and Plavix (PCI to mid RCA was in February 2023 hence a year ago however as she is still a vasculopath with endarterectomy, she should ideally be continued with Plavix) Will follow her as an outpatient in order to determine if she needs further workup, discussed with hospitalist team. No further workup from a cardiac standpoint, thank you for allowing us to participate in this patient's care, cardiology will sign off Problem List/Past Medical History Ongoing Anemia B12 deficiency anemia Bronchitis CABG - Coronary artery bypass graft CAD - Coronary artery disease Carotid stenosis, bilateral CKD (chronic kidney disease) Constipation Cystocele with prolapse Depression Glasses Headache Heart disease High risk medication use History of carotid endarterectomy History of PTCA Hx of CABG Hypertension HYPERTENSION, ESSENTIAL Insomnia Irritable bowel syndrome Lipoma Medicare annual wellness visit, subsequent Nephrolithiasis Osteoarthritis Osteopenia of femoral neck Preop cardiovascular exam S/P PTCA (PERCUTANEOUS TRANSLUMINAL CORONARY ANGIOPLASTY) Seasonal allergy SOB (shortness of breath) Spasm of back muscles Thoracic outlet syndrome Historical Bowel obstruction Chest pain in adult Insomnia Procedure/Surgical History Cardiac catheterization: 03/11/23 Endarterectomy: 01/04/20 Nerve conduction study: 02/06/17 Duplex ultrasound, carotid: 11/14/16 Lithotripsy: 2007 CABG x 1 - Coronary artery bypass graft x 1 Colonoscopy Abdominal hysterectomy section Cholecystectomy Carotid artery Medications Inpatient aspirin 81 mg oral tablet, chewable, 81 mg= 1 tab(s), Oral, Daily atorvastatin, 40 mg= 1 tab(s), Oral, qHS calcium carbonate, 1250 mg= 1 tab(s), Oral, qDay carvedilol 12.5 mg oral tablet, 12.5 mg= 1 tab(s), Oral, BIDM clopidogrel, 75 mg= 1 tab(s), Oral, qDay Dextrose 50% IV Push, 12.5 gram(s)= 25 mL, IV Push, AsDirected, PRN Dilaudid, 1 mg= 1 mL, IV Push, q3h, PRN doxycycline DULoxetine, 60 mg= 1 cap(s), Oral, qDay DuoNeb, 3 mL, Inhalation, q4hRT, PRN eszopiclone, 3 mg= 1 tab(s), Oral, qHS fluticasone 50 mcg/inh NASAL spray, 100 mcg= 2 spray(s), Nostril, each, qDay Heparin for IV 25,000 unit(s) [18 unit(s)/kg/hr] + Dextrose 5% Premix Diluent 250 mL Heparin HBW Bolus 5000 units/mL, 4270 unit(s)= 0.85 mL, 70 unit(s)/kg, IV Push, q6h, PRN Heparin HBW Bolus 5000 units/mL, 2440 unit(s)= 0.49 mL, 40 unit(s)/kg, IV Push, q6h, PRN melatonin, 3 mg= 1 tab(s), Oral, qHS, PRN melatonin, 3 mg= 1 tab(s), Oral, qHS, PRN Miralax Powder Packet, 17 gram(s)= 15 mL, Oral, qDay, PRN Percocet 325/5, 2 tab(s), Oral, q4h, PRN Rocephin, 2 gram(s)= 20 mL, IV Push (INT), qDay traZODone, 50 mg= 1 tab(s), Oral, qHS Tylenol, 650 mg= 2 tab(s), Oral, q4h, PRN Vitamin B12, 1000 mcg= 2 tab(s), Oral, qDay Vitamin D3 125 mcg (5000 intl units) oral capsule, 125 mcg= 1 cap(s), Oral, qDay Zofran, 4 mg= 2 mL, IV Push, q4h, PRN Home aspirin 81 mg oral tablet, chewable, 81 mg= 1 tab(s), Oral, Daily, 11 refills atorvastatin 40 mg oral tablet, 40 mg= 1 tab(s), Oral, qHS, 3 refills calcium (as carbonate) 600 mg oral tablet, 1200 mg= 2 tab(s), Oral, qDay, PRN carvedilol 12.5 mg oral tablet, 12.5 mg= 1 tab(s), Oral, BIDM clobetasol 0.05% topical cream, 1 juli, Topical, BID, 3 refills, Not taking clopidogrel 75 mg oral tablet, 75 mg= 1 tab(s), Oral, qDay, 3 refills DULoxetine 60 mg oral delayed release capsule, 60 mg= 1 cap(s), Oral, qDay, 3 refills eszopiclone 3 mg oral tablet, 3 mg= 1 tab(s), Oral, qHS fluticasone 50 mcg/inh NASAL spray, 100 mcg= 2 spray(s), Nostril, each, qDay MiraLax oral powder for reconstitution, 17 gram(s), Oral, qDay ondansetron 4 mg oral tablet, disintegrating, 4 mg= 1 tab(s), Oral, q6hr, PRN traZODone 50 mg oral tablet, 50 mg= 1 tab(s), Oral, qHS, 3 refills Tylenol Extra Strength 500 mg oral tablet, 1000 mg= 2 tab(s), Oral, QID, PRN Vitamin B12 500 mcg oral tablet, 1000 mcg= 2 tab(s), Oral, qDay, 3 refills Vitamin D3 125 mcg (5000 intl units) oral capsule, 125 mcg= 1 cap(s), Oral, qDay Allergies Ultram confusion codeine nausea lisinopril Cough traMADol Unknown Social History Smoking Status - 07/09/2018 Never smoker Alcohol - Denies Alcohol Use, 07/09/2018 Use: Never., 07/17/2019 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 Appetite Good. Eating Difficulties None. Caffeine intake amount: None., 05/01/2022 Substance Abuse - Denies Substance Abuse, 07/09/2018 Use: Never., 07/17/2019 Tobacco Nicotine Use: Former smoker, quit more than 30 days ago., 12/06/2022 Family History Cancer: Father, Sister and Brother. Heart disease: Mother, Sister and Brother. Health Status Family Member(s) Immunizations pneumococcal 13-valent conjugate vaccine: 0.5 unknown unit (06/19/18) pneumococcal 13-valent conjugate vaccine: 0 unknown unit (10/21/12) pneumococcal 23-valent vaccine(Pneumovax: 0 unknown unit (09/19/12) SARS-CoV-2 mRNA (tozinameran) vaccine: 0.3 unknown unit (07/31/21) SARS-CoV-2 mRNA (tozinameran) vaccine: 0.3 unknown unit (11/22/20) SARS-CoV-2 mRNA (tozinameran) vaccine: 0.3 unknown unit (11/01/20) tetanus/diphth/pertuss (Tdap) adult/adol: 0.5 mL (03/03/24) zoster vaccine live: 0 unknown unit (04/14/16) zoster vaccine live: 0 unknown unit (09/19/14) Digitally Signed by LOUIS RUBIO MD on 04/24/2024 03:45 PM [facility] 04-24-2024 Evaluation + Plan note Extrac tarun from: Title:History and Physical Author:CRISTIAN SOTO Date:04/24/24 68-year-old female with a hi story of CAD status post stent placement 02/2023 preceded by CABG, bilateral carotid stenosis status post carotid endarterectomy, hypertension, CKD, chronic anemia, with recent admission for decreased ambulation secondary to avascular necrosis of the hip is presenting with shortness of breath secondary to pulmonary emboli found to have a troponin elevation and EKG changes suggestive of an NSTEMI. Pulmonary emboli heparin drip, pain control, nasal cannula support and echocardiogram CAD with recent stent 02/2023 having an NSTEMI with T wave inversions in leads V1 V2 will cycle EKGs and cardiac enzymes and consult cardiology Elevated BNP getting echo as above ?Pneumonia ceftriaxone doxycycline check an RVP droplet precautions Avascular necrosis unclear etiology, patient denies history of alcohol use, will likely need PT OT reassessment once medically stable for SNF versus home with home health E. coli UTI on ceftriaxone as above Hyponatremia will check a urine and serum osmolality Chronic anemia monitor H&H while on heparin drip Bilateral carotid stenosis status post carotid endarterectomy Hypertension stable CRYSTAL on CKD monitor renal function with repeat labs in the morning Thoracic outlet syndrome stable Depression stable DVT prophylaxis patient on heparin drip as above Full code patient was readmitted for pulmonary emboli with NSTEMI it did not seem that she complained of shortness of breath during her recent admission she likely developed PEs while being bedbound at home. Future Appointments Appointment Date:05/21/2024 03:00:00 PM Scheduled Provider:LUIS ELLIOTT Location:[facility] 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:PC OV Appointment Date:06/15/2024 03:00:00 PM Scheduled Provider:VELMA REYNOLDS Location:[facility] 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:CV OV Diagnostic Tests Pending * Sodium Random Urine 04/26/24 * Osmolality Urine 04/26/24 Future Scheduled Tests Laboratory* Complete Blood Count 10/03/23 Radiology* BD Bone Density DEXA Axial Skeleton 06/19/23 [facility] 07-05-2024 Note* Exam Date Time Procedure Performing Provider Status 04/24/24 10:53 AM Echocardiogram, Adult - CV Auth (Verified) [facility] 07-05-2024 NoteSinus rhythm Inferior infarct, old Prolonged QT interval Electronic Signature: DANIELLE VARNER MD 04/24/2024 20:41:20[facility] 07-05-2024 Cardiology Consult note Date of Service April 20, 2024 Reason for Consultation Elevated troponin Referring Physician Hospitalist History of Present Illness 68-year-old female with medical history significant for history of stents to the RCA failed stent to the LAD and up with MIDCAB, MIDCAB COTO to LAD in 2011, PCI to RCA February 2023, hypertension, carotidstenosis status post left carotid endarterectomy x 2, presents to the ER on 04/24/2024 with complaints of shortness of breath. Was recently discharged from [facility] due to decreased ambulationleft hip pain, diagnosed to have avascular necrosis unknown provoking factor, CTA on admission showed distal right upper lobe segmental pulmonary embolus no right heart strain. Cardiology has been consulted for elevated troponins, 468--->478--->611 then trended down CATH February 2023 Percutaneous intervention on the 70% stenosis in the mid right coronary. Balloon angioplasty. Stentplacement. SUMMARY: 1. 1st lesion: Stent placement was performed. A 3.5 mm (D) x 28 mm (L), Synergy XD stent was used. The stent was advanced across the lesion and deployed with two inflations and a maximum pressure of 12 rigoberto. 2. Left ventricle: Systolic function is normal. The estimated ejection fraction is 55-60%. Hypokinesis of the inferolateral myocardium. 3. LAD: Proximal vessel lesion: There is an 80% stenosis. Mid-vessel lesion: There is a 100% chronic total occlusion. 4. Right coronary: Mid-vessel lesion: The diagnostic study demonstrated a diffuse, 70% stenosis. The distal vessel supplies a moderate-sized vascular territory. The lesion is a likely culprit for the patient's clinical presentation. The lesion presents an ACC/AHA type B moderate risk lesion for intervention. Stent placement was performed, with balloon angioplasty, resulting in an excellent angiographic appearance (see 1st lesion). Following intervention, there is a residual 0% stenosis with MONIQUE grade 3 flow (brisk flow). IMPRESSIONS: Severe CAD in kashia. Patent COTO to LAD. Patent Left subclavian stent. Severe Stenosis involving the RCA distal to the prior stent s/p PCI with SONIA. Stress test Lexiscan Jul 2022 (prior to cath) IMPRESSION: 1. Possible small area of mild ischemia involving distal lateral segment versus shifting breast attenuation artifact. 2. Normal systolic function with ejection fraction greater than 70%. 3. Prior study in 2019 had similar but less reversible defect in the apical lateral segment suggesting this is likely artifactual. Review of Systems 12 point ROS negative unless mentioned in HPI Physical Exam Vitals and Measurements T: 36.2 C (Oral) HR: 82 (Monitored) RR: 36 BP: 116/54 SpO2: 93% HT: 155 cm WT: 65.6 kg BMI: 27.3 Weight Dosing Weight: 65.6 kg (04/24/24) Constitutional: Oriented to time, place, and person - well developed - well nourished Cardiovascular: JVD not elevated, S1 S2 present,No added sounds, no lower extremity edema Abdomen: soft Musculoskeletal system: general/bilateral Normal movement of all extremities. Skin: color and pigmentation is normal Lab Results 04/24 05:26 WBC: 31.7 H Hgb: 7.3 L Hct: 22.1 L Platelet: 231 Glucose Level: 111 Sodium Level: 129 L Potassium Level: 4.0 BUN: 24.0 H Creatinine Lvl (s): 1.36 H Assessment/Plan Elevated troponin History of CAD status post MIDCAB, PCI to RCA February 2023 Hypertension Carotid stenosis status post left carotid endarterectomy Transaminitis, unclear reason for elevation CRYSTAL on CKD stag baseline Cr 1.2-1.3, improving Acute on chronic anemia baseline around 10 to 10 to 11 mg per DL, currently around 7.3 We are consulted due to elevated troponins and EKG changes. Patient's PE does not seem to explain the T wave inversions on EKG. Echocardiogram preliminary appears normal EF without significant RV strain. Troponin trend fairly flat However given the fact that her hemoglobin is trending down to 7.3, patient has no complaints of gross bleeding, this will need to be worked up prior to last pursuing any workup. Whenever she has required stents in the past her predominant symptom has been shortness of breath rather than chest pain. We will order iron studies, discussed with primary team regarding anemia as well. When switching over from IV heparin to Eliquis, aspirin can be stopped, patient can be discharged with Eliquis and Plavix (PCI to mid RCA was in February 2023 hence a year ago however as she is still a vasculopath with endarterectomy, she should ideally be continued with Plavix) Will follow her as an outpatient in order to determine if she needs further workup, discussed with hospitalist team. No further workup from a cardiac standpoint, thank you for allowing us to participate in this patient's care, cardiology will sign off Problem List/Past Medical History Ongoing Anemia B12 deficiency anemia Bronchitis CABG - Coronary artery bypass graft CAD - Coronary artery disease Carotid stenosis, bilateral CKD (chronic kidney disease) Constipation Cystocele with prolapse Depression Glasses Headache Heart disease High risk medication use History of carotid endarterectomy History of PTCA Hx of CABG Hypertension HYPERTENSION, ESSENTIAL Insomnia Irritable bowel syndrome Lipoma Medicare annual wellness visit, subsequent Nephrolithiasis Osteoarthritis Osteopenia of femoral neck Preop cardiovascular exam S/P PTCA (PERCUTANEOUS TRANSLUMINAL CORONARY ANGIOPLASTY) Seasonal allergy SOB (shortness of breath) Spasm of back muscles Thoracic outlet syndrome Historical Bowel obstruction Chest pain in adult Insomnia Procedure/Surgical History Cardiac catheterization: 03/11/23 Endarterectomy: 01/04/20 Nerve conduction study: 02/06/17 Duplex ultrasound, carotid: 11/14/16 Lithotripsy: 2007 CABG x 1 - Coronary artery bypass graft x 1 Colonoscopy Abdominal hysterectomy section Cholecystectomy Carotid artery Medications Inpatient aspirin 81 mg oral tablet, chewable, 81 mg= 1 tab(s), Oral, Daily atorvastatin, 40 mg= 1 tab(s), Oral, qHS calcium carbonate, 1250 mg= 1 tab(s), Oral, qDay carvedilol 12.5 mg oral tablet, 12.5 mg= 1 tab(s), Oral, BIDM clopidogrel, 75 mg= 1 tab(s), Oral, qDay Dextrose 50% IV Push, 12.5 gram(s)= 25 mL, IV Push, AsDirected, PRN Dilaudid, 1 mg= 1 mL, IV Push, q3h, PRN doxycycline DULoxetine, 60 mg= 1 cap(s), Oral, qDay DuoNeb, 3 mL, Inhalation, q4hRT, PRN eszopiclone, 3 mg= 1 tab(s), Oral, qHS fluticasone 50 mcg/inh NASAL spray, 100 mcg= 2 spray(s), Nostril, each, qDay Heparin for IV 25,000 unit(s) [18 unit(s)/kg/hr] + Dextrose 5% Premix Diluent 250 mL Heparin HBW Bolus 5000 units/mL, 4270 unit(s)= 0.85 mL, 70 unit(s)/kg, IV Push, q6h, PRN Heparin HBW Bolus 5000 units/mL, 2440 unit(s)= 0.49 mL, 40 unit(s)/kg, IV Push, q6h, PRN melatonin, 3 mg= 1 tab(s), Oral, qHS, PRN melatonin, 3 mg= 1 tab(s), Oral, qHS, PRN Miralax Powder Packet, 17 gram(s)= 15 mL, Oral, qDay, PRN Percocet 325/5, 2 tab(s), Oral, q4h, PRN Rocephin, 2 gram(s)= 20 mL, IV Push (INT), qDay traZODone, 50 mg= 1 tab(s), Oral, qHS Tylenol, 650 mg= 2 tab(s), Oral, q4h, PRN Vitamin B12, 1000 mcg= 2 tab(s), Oral, qDay Vitamin D3 125 mcg (5000 intl units) oral capsule, 125 mcg= 1 cap(s), Oral, qDay Zofran, 4 mg= 2 mL, IV Push, q4h, PRN Home aspirin 81 mg oral tablet, chewable, 81 mg= 1 tab(s), Oral, Daily, 11 refills atorvastatin 40 mg oral tablet, 40 mg= 1 tab(s), Oral, qHS, 3 refills calcium (as carbonate) 600 mg oral tablet, 1200 mg= 2 tab(s), Oral, qDay, PRN carvedilol 12.5 mg oral tablet, 12.5 mg= 1 tab(s), Oral, BIDM clobetasol 0.05% topical cream, 1 juli, Topical, BID, 3 refills, Not taking clopidogrel 75 mg oral tablet, 75 mg= 1 tab(s), Oral, qDay, 3 refills DULoxetine 60 mg oral delayed release capsule, 60 mg= 1 cap(s), Oral, qDay, 3 refills eszopiclone 3 mg oral tablet, 3 mg= 1 tab(s), Oral, qHS fluticasone 50 mcg/inh NASAL spray, 100 mcg= 2 spray(s), Nostril, each, qDay MiraLax oral powder for reconstitution, 17 gram(s), Oral, qDay ondansetron 4 mg oral tablet, disintegrating, 4 mg= 1 tab(s), Oral, q6hr, PRN traZODone 50 mg oral tablet, 50 mg= 1 tab(s), Oral, qHS, 3 refills Tylenol Extra Strength 500 mg oral tablet, 1000 mg= 2 tab(s), Oral, QID, PRN Vitamin B12 500 mcg oral tablet, 1000 mcg= 2 tab(s), Oral, qDay, 3 refills Vitamin D3 125 mcg (5000 intl units) oral capsule, 125 mcg= 1 cap(s), Oral, qDay Allergies Ultram confusion codeine nausea lisinopril Cough traMADol Unknown Social History Smoking Status - 07/09/2018 Never smoker Alcohol - Denies Alcohol Use, 07/09/2018 Use: Never., 07/17/2019 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 Appetite Good. Eating Difficulties None. Caffeine intake amount: None., 05/01/2022 Substance Abuse - Denies Substance Abuse, 07/09/2018 Use: Never., 07/17/2019 Tobacco Nicotine Use: Former smoker, quit more than 30 days ago., 12/06/2022 Family History Cancer: Father, Sister and Brother. Heart disease: Mother, Sister and Brother. Health Status Family Member(s) Immunizations pneumococcal 13-valent conjugate vaccine: 0.5 unknown unit (06/19/18) pneumococcal 13-valent conjugate vaccine: 0 unknown unit (10/21/12) pneumococcal 23-valent vaccine(Pneumovax: 0 unknown unit (09/19/12) SARS-CoV-2 mRNA (tozinameran) vaccine: 0.3 unknown unit (07/31/21) SARS-CoV-2 mRNA (tozinameran) vaccine: 0.3 unknown unit (11/22/20) SARS-CoV-2 mRNA (tozinameran) vaccine: 0.3 unknown unit (11/01/20) tetanus/diphth/pertuss (Tdap) adult/adol: 0.5 mL (03/03/24) zoster vaccine live: 0 unknown unit (04/14/16) zoster vaccine live: 0 unknown unit (09/19/14) Digitally Signed by LOUIS RUBIO MD on 04/24/2024 03:45 PM [id number] NoteSinus rhythm Inferior infarct, old Electronic Signature: DANIELLE VARNER MD 04/24/2024 20:34:33[facility] 07-05-2024 NoteSinus rhythm Inferior infarct, old Abnormal T, consider ischemia, anterior leads Prolonged QT interval Electronic Signature: DANIELLE VARNER MD 04/24/2024 08:36:54[facility] 07-05-2024 History and physical note Date of Service 04/24/2024 Chief Complaint shortness of breath History of Present Illness 68-year-old female with a history of CAD status post CABG followed by stent placement 02/2023, bilateral carotid stenosis status post carotid endarterectomy, hypertension, chronic anemia, CKD, depression, thoracic outlet syndrome recently admitted to [facility] fo decreased ambulation and left hip pain found to have avascular necrosis of the left hip seen by PT OT recommended home with home health is presenting with shortness of breath. Patient was discharged 3 days ago and since then has not been moving much complained of nausea and short of breath family became concerned and advised that she return to the emergency department In the emergency department Vital signs significant for hypoxia to 87% requiring 4 L nasal cannula, tachypnea with a respiratory 24 Chest x-ray lower lung field opacities and atelectasis. If concern for pneumonia, findings could berelated. CT PE 1. Distal right upper lobe anterior segmental pulmonary embolus. No evidence of pulmonary arterial dilation or right heart strain. 2. Small right and trace left pleural effusions with adjacent atelectasis and right lower and middle lobe consolidations. Suggest follow-up 8-12 weeks after resolution of acute symptoms to ensure resolution. BMP significant for hyponatremia 128 acidosis with a CO2 of 20 hypochloride of 93 CRYSTAL with a creatinine 1.6 above baseline 1.1 CBC significant for leukocytosis of 23 anemia with an H&H of 7.6/22 which is slightly less thanprior 8.1/23 platelets 250 BNP 10,946 High-sensitivity troponin 468 repeat 478 EKG which I personally reviewed interpreted showed a sinus rhythm with T wave inversion in contiguous leads V1 and V2 which were not present on prior Lactic acid 1.9 Started on a heparin drip, ceftriaxone and azithromycin by the ED physician I personally spoke to the ED physician Dr. Velasco regarding the patient's presentation Patient was seen and examined upon arrival to the floor she says she does not feel good, has not felt good since leaving the hospital has not ambulated much since leaving the hospital but she does try denies alcohol use Of note during her recent admission she had a UA which was negative for nitrites or leuk esterase but her urine culture grew 100,000 E. coli bacteria which was sensitive to cephalosporins Review of Systems All pertinent positive and negative review of systems as per HPI, all other review of systems reviewed and negative Physical Exam Vitals and Measurements No qualifying data available. GENERAL: Frail moderate distress but nontoxic ASSISTIVE DEVICES: None PSYCHIATRIC: Depressed HEENT moist mucous membranes extraocular muscles intact CARDIOVASCULAR: Sinus tach RESPIRATORY: Moderate air entry ABDOMEN soft, no guarding, nontender, nondistended, positive bowel sounds, NEURO: no focal deficits DERM: no acute rash Lab Results No 36 Hour Lab Data Assessment/Plan 68-year-old female with a history of CAD status post stent placement 02/2023 preceded by CABG, bilateral carotid stenosis status post carotid endarterectomy, hypertension, CKD, chronic anemia, with recent admission for decreased ambulation secondary to avascular necrosis of the hip is presenting with shortness of breath secondary to pulmonary emboli found to have a troponin elevation and EKG changes suggestive of an NSTEMI. Pulmonary emboli heparin drip, pain control, nasal cannula support and echocardiogram CAD with recent stent 02/2023 having an NSTEMI with T wave inversions in leads V1 V2 will cycle EKGs and cardiac enzymes and consult cardiology Elevated BNP getting echo as above ?Pneumonia ceftriaxone doxycycline check an RVP droplet precautions Avascular necrosis unclear etiology, patient denies history of alcohol use, will likely need PT OT reassessment once medically stable for SNF versus home with home health E. coli UTI on ceftriaxone as above Hyponatremia will check a urine and serum osmolality Chronic anemia monitor H&H while on heparin drip Bilateral carotid stenosis status post carotid endarterectomy Hypertension stable CRYSTAL on CKD monitor renal function with repeat labs in the morning Thoracic outlet syndrome stable Depression stable DVT prophylaxis patient on heparin drip as above Full code patient was readmitted for pulmonary emboli with NSTEMI it did not seem that she complained of shortness of breath during her recent admission she likely developed PEs while being bedbound at home. Problem List/Past Medical History Ongoing Anemia B12 deficiency anemia Bronchitis CABG - Coronary artery bypass graft CAD - Coronary artery disease Carotid stenosis, bilateral CKD (chronic kidney disease) Constipation Cystocele with prolapse Depression Glasses Headache Heart disease High risk medication use History of carotid endarterectomy History of PTCA Hx of CABG Hypertension HYPERTENSION, ESSENTIAL Insomnia Irritable bowel syndrome Lipoma Medicare annual wellness visit, subsequent Nephrolithiasis Osteoarthritis Osteopenia of femoral neck Preop cardiovascular exam S/P PTCA (PERCUTANEOUS TRANSLUMINAL CORONARY ANGIOPLASTY) Seasonal allergy SOB (shortness of breath) Spasm of back muscles Thoracic outlet syndrome Historical Bowel obstruction Chest pain in adult Insomnia Procedure/Surgical History Cardiac catheterization: 03/11/23 Endarterectomy: 01/04/20 Nerve conduction study: 02/06/17 Duplex ultrasound, carotid: 11/14/16 Lithotripsy: 2007 CABG x 1 - Coronary artery bypass graft x 1 Colonoscopy Abdominal hysterectomy section Cholecystectomy Carotid artery Medications Home Medications (15) Active aspirin 81 mg oral tablet, chewable 81 mg = 1 tab(s), Oral, Daily atorvastatin 40 mg oral tablet 40 mg = 1 tab(s), Oral, qHS calcium (as carbonate) 600 mg oral tablet 1,200 mg = 2 tab(s), PRN, Oral, qDay carvedilol 12.5 mg oral tablet 12.5 mg = 1 tab(s), Oral, BIDM clobetasol 0.05% topical cream 1 juli, Topical, BID clopidogrel 75 mg oral tablet 75 mg = 1 tab(s), Oral, qDay DULoxetine 60 mg oral delayed release capsule 60 mg = 1 cap(s), Oral, qDay eszopiclone 3 mg oral tablet 3 mg = 1 tab(s), Oral, qHS fluticasone 50 mcg/inh NASAL spray 100 mcg = 2 spray(s), Nostril, each, qDay MiraLax oral powder for reconstitution 17 gram(s), Oral, qDay ondansetron 4 mg oral tablet, disintegrating 4 mg = 1 tab(s), PRN, Oral, q6hr traZODone 50 mg oral tablet 50 mg = 1 tab(s), Oral, qHS Tylenol Extra Strength 500 mg oral tablet 1,000 mg = 2 tab(s), PRN, Oral, QID Vitamin B12 500 mcg oral tablet 1,000 mcg = 2 tab(s), Oral, qDay Vitamin D3 125 mcg (5000 intl units) oral capsule 125 mcg = 1 cap(s), Oral, qDay Allergies Ultram confusion codeine nausea lisinopril Cough traMADol Unknown Social History Smoking Status - 07/09/2018 Never smoker Alcohol - Denies Alcohol Use, 07/09/2018 Use: Never., 07/17/2019 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 Appetite Good. Eating Difficulties None. Caffeine intake amount: None., 05/01/2022 Substance Abuse - Denies Substance Abuse, 07/09/2018 Use: Never., 07/17/2019 Tobacco Nicotine Use: Former smoker, quit more than 30 days ago., 12/06/2022 Family History Cancer: Father, Sister and Brother. Heart disease: Mother, Sister and Brother. Health Status Family Member(s) Immunizations pneumococcal 13-valent conjugate vaccine: 0.5 unknown unit (06/19/18) pneumococcal 13-valent conjugate vaccine: 0 unknown unit (10/21/12) pneumococcal 23-valent vaccine(Pneumovax: 0 unknown unit (09/19/12) SARS-CoV-2 mRNA (tozinameran) vaccine: 0.3 unknown unit (07/31/21) SARS-CoV-2 mRNA (tozinameran) vaccine: 0.3 unknown unit (11/22/20) SARS-CoV-2 mRNA (tozinameran) vaccine: 0.3 unknown unit (11/01/20) tetanus/diphth/pertuss (Tdap) adult/adol: 0.5 mL (03/03/24) zoster vaccine live: 0 unknown unit (04/14/16) zoster vaccine live: 0 unknown unit (09/19/14) Code Status Code Status - Ordered -- 04/24/24 4:05:00 EDT, Full Code, Constant Order Digitally Signed by CRISTIAN SOTO MD on 04/24/2024 05:14 AM [id number] Note ORIGINAL EXAMINATION: CTA OF THE CHEST 04/23/2024 11:05 pm TECHNIQUE: CTA of the chest was performed after the administration of intravenous contrast. Multiplanar reformatted images are provided for review. MIP images are provided for review. Automated exposure control, iterative reconstruction, and/or weight based adjustment of the mA/kV was utilized to reduce the radiation dose to as low as reasonably achievable. COMPARISON: CT PE 12/23/2019. HISTORY: ORDERING SYSTEM PROVIDED HISTORY: Reason for Exam: difficulty breathing; suspect PE FINDINGS: Pulmonary Arteries: Pulmonary arteries are adequately opacified for evaluation. The filling defect is appreciated within the right upper lobe anterior segmental branch distally.. Main pulmonary artery is normal in caliber. No evidence of right heart strain. Mediastinum: No evidence of mediastinal lymphadenopathy. The heart and pericardium demonstrate no acute abnormality. There is no acute abnormality of the thoracic aorta, which demonstrates moderate calcified atherosclerotic changes. Lungs/pleura: The tracheobronchial tree is patent without intraluminal mass or obstruction. Trace left and small right pleural effusions are appreciated with adjacent atelectasis and some right middle and lower lobe consolidation. Diffuse ground-glass opacities are appreciated throughout the bilateral lungs with scattered interlobular septal thickening. No pneumothoraces. Upper Abdomen: Limited images of the upper abdomen are unremarkable. Soft Tissues/Bones: No acute bone or soft tissue abnormality. IMPRESSION: 1. Distal right upper lobe anterior segmental pulmonary embolus. No evidence of pulmonary arterial dilation or right heart strain. 2. Small right and trace left pleural effusions with adjacent atelectasis and right lower and middle lobe consolidations. Suggest follow-up 8-12 weeks after resolution of acute symptoms to ensure resolution. Critical results were called by Dr. Luis Crump to Dr. Velasco on 04/23/2024 at 23:17. Interpreted by: Luis Crump Preliminary Report By: Luis Crump Electronically signed By Luis Crump Dictated Date: 04/23/2024 11:06:27 PM Prelim Date: 04/23/2024 11:18:34 PM Sign Date: 04/23/2024 11:18:34 PM Ordering Provider: [facility]07-04-2024 Note ORIGINAL EXAMINATION: ONE XRAY VIEW OF THE CHEST 04/23/2024 9:42 pm COMPARISON: Radiograph of the chest April 19, 2024 HISTORY: ORDERING SYSTEM PROVIDED HISTORY: Reason for Exam: sob FINDINGS: Cardiomediastinal silhouette is unchanged in size. Costophrenic angles are sharp. No radiographic pneumothorax. Lower lung field opacities and atelectasis. Osseous structures grossly unchanged. IMPRESSION: Lower lung field opacities and atelectasis. If concern for pneumonia, findings could be related. Correlate clinically and follow-up to resolution. Interpreted by: Antoni West Preliminary Report By: Antoni West Electronically signed By Antoni West Dictated Date: 04/23/2024 9:48:31 PM Prelim Date: 04/23/2024 9:49:22 PM Sign Date: 04/23/2024 9:49:22 PM [facility] NoteSinus rhythm Inferior infarct, old Electronic Signature: KINGSTON VELASCO MD 04/23/2024 21:15:31[facility] 07-03-[facility] Note. MICRO - Microbiology PROCEDURE: Urine Culture [*1] SOURCE: Urine, Clean Catch BODY SITE: COLLECTED DATE/TIME: 04/20/2024 09:47 EDT RECEIVED DATE/TIME: 04/20/2024 19:26 EDT START DATE/TIME: 04/20/2024 19:27 EDT FREE TEXT SOURCE: FINAL REPORTS Final Report [] Verified Date/Time/Personnel: 04/22/2024 08:37 EDT >100,000 cfu/ml Escherichia coli PRELIMINARY REPORTS Preliminary Report [] Verified Date/Time/Personnel: 04/21/2024 12:50 EDT >100,000 cfu/ml Escherichia coli ILIR to follow SUSCEPTIBILITY RESULTS Escherichia coli Antibiotic ILIR Dilut ILIR Inter Ampicillin >16 Resistant Ampicillin/ 8/4 Susceptible Sulbactam Aztreonam <=4 Susceptible Cefazolin <=2 Susceptible Ciprofloxacin <=0.25 Susceptible Ertapenem <=0.5 Susceptible Gentamicin <=2 Susceptible ID Panel Not Not Applicable Applicable Imipenem <=1 Susceptible Levofloxacin <=0.5 Susceptible Meropenem <=1 Susceptible Minocycline >8 Resistant Nitrofurantoin <=32 Susceptible Piperacillin/ <=8 Susceptible Tazobactam Trimethoprim/ >2/38 Resistant Sulfa Performing Locations *1: This test was performed at: [facility], [address] [place] [address], [facility] , [facility] ([place]04-21-2024 Hospital Discharge instructions Patient Education 04/21/2024 11:41:36 Vitamin B12 Deficiency, [id number] Vitamin B12 Deficiency Vitamin B12 deficiency means that your body does not have enough vitamin B12. The body needs this vitamin: To make red blood cells. To make genes (DNA). To help the nerves work. If you do not have enough vitamin B12 in your body, you can have health problems. What are the causes? Not eating enough foods that contain vitamin B12. Not being able to absorb vitamin B12 from the food that you eat. Certain digestive system diseases. A condition in which the body does not make enough of a certain protein, which results in too few red blood cells (pernicious anemia). Having a surgery in which part of the stomach or small intestine is removed. Taking medicines that make it hard for the body to absorb vitamin B12. These medicines include: ?Heartburn medicines. ?Some antibiotic medicines. ?Other medicines that are used to treat certain conditions. What increases the risk? Being older than age 50. Eating a vegetarian or vegan diet, especially while you are . Eating a poor diet while you are . Taking certain medicines. Having alcoholism. What are the signs or symptoms? In some cases, there are no symptoms. If the condition leads to too few blood cells or nerve damage, symptoms can occur, such as: Feeling weak. Feeling tired (fatigued). Not being hungry. Weight loss. A loss of feeling (numbness) or tingling in your hands and feet. Redness and burning of the tongue. Being mixed up (confused) or having memory problems. Sadness (depression). Problems with your senses. This can include color blindness, ringing in the ears, or loss of taste. Watery poop (diarrhea) or trouble pooping (constipation). Trouble walking. If anemia is very bad, symptoms can include: Being short of breath. Being dizzy. Having a very fast heartbeat. How is this treated? Changing the way you eat and drink, such as: ?Eating more foods that contain vitamin B12. ?Drinking little or no alcohol. Getting vitamin B12 shots. Taking vitamin B12 supplements. Your doctor will tell you the dose that is best for you. Follow these instructions at home: Eating and drinking Eat lots of healthy foods that contain vitamin B12. These include: ?Meats and poultry, such as beef, pork, chicken, turkey, and organ meats, such as liver. ?Seafood, such as clams, rainbow trout, salmon, tuna, and levy. ?Eggs. ?Cereal and dairy products that have vitamin B12 added to them. Check the label. The items listed above may not be a complete list of what you can eat and drink. Contact a dietitian for more options. General instructions Get any shots as told by your doctor. Take supplements only as told by your doctor. Do not drink alcohol if your doctor tells you not to. In some cases, you may only be asked to limitalcohol use. Keep all follow-up visits as told by your doctor. This is important. Contact a doctor if: Your symptoms come back. Get help right away if: You have trouble breathing. You have a very fast heartbeat. You have chest pain. You get dizzy. You pass out. Summary Vitamin B12 deficiency means that your body is not getting enough vitamin B12. In some cases, there are no symptoms of this condition. Treatment may include making a change in the way you eat and drink, getting vitamin B12 shots, or taking supplements. Eat lots of healthy foods that contain vitamin B12. This information is not intended to replace advice given to you by your health care provider. Make sure you discuss any questions you have with your health care provider. Document Released: 09/25/2012 Document Revised: 06/16/2019 Document Reviewed: 06/16/2019 [employer] Patient Education 2020 [employer]. 04/21/2024 11:41:27 Anemia Anemia Anemia is a condition in which you do not have enough red blood cells or hemoglobin. Hemoglobin is a substance in red blood cells that carries oxygen. When you do not have enough red blood cells or hemoglobin (are anemic), your body cannot get enough oxygen and your organs may not work properly. Asa result, you may feel very tired or have other problems. What are the causes? Common causes of anemia include: Excessive bleeding. Anemia can be caused by excessive bleeding inside or outside the body, including bleeding from the intestine or from periods in women. Poor nutrition. Long-lasting (chronic) kidney, thyroid, and liver disease. Bone marrow disorders. Cancer and treatments for cancer. HIV (human immunodeficiency virus) and AIDS (acquired immunodeficiency syndrome). Treatments for HIV and AIDS. Spleen problems. Blood disorders. Infections, medicines, and autoimmune disorders that destroy red blood cells. What are the signs or symptoms? Symptoms of this condition include: Minor weakness. Dizziness. Headache. Feeling heartbeats that are irregular or faster than normal (palpitations). Shortness of breath, especially with exercise. Paleness. Cold sensitivity. Indigestion. Nausea. Difficulty sleeping. Difficulty concentrating. Symptoms may occur suddenly or develop slowly. If your anemia is mild, you may not have symptoms. How is this diagnosed? This condition is diagnosed based on: Blood tests. Your medical history. A physical exam. Bone marrow biopsy. Your health care provider may also check your stool (feces) for blood and may do additional testingto look for the cause of your bleeding. You may also have other tests, including: Imaging tests, such as a CT scan or MRI. Endoscopy. Colonoscopy. How is this treated? Treatment for this condition depends on the cause. If you continue to lose a lot of blood, you may need to be treated at a hospital. Treatment may include: Taking supplements of iron, vitamin B12, or folic acid. Taking a hormone medicine (erythropoietin) that can help to stimulate red blood cell growth. Having a blood transfusion. This may be needed if you lose a lot of blood. Making changes to your diet. Having surgery to remove your spleen. Follow these instructions at home: Take fwmm-ste-ppgiuse and prescription medicines only as told by your health care provider. Take supplements only as told by your health care provider. Follow any diet instructions that you were given. Keep all follow-up visits as told by your health care provider. This is important. Contact a health care provider if: You develop new bleeding anywhere in the body. Get help right away if: You are very weak. You are short of breath. You have pain in your abdomen or chest. You are dizzy or feel faint. You have trouble concentrating. You have bloody or black, tarry stools. You vomit repeatedly or you vomit up blood. Summary Anemia is a condition in which you do not have enough red blood cells or enough of a substance in your red blood cells that carries oxygen (hemoglobin). Symptoms may occur suddenly or develop slowly. If your anemia is mild, you may not have symptoms. This condition is diagnosed with blood tests as well as a medical history and physical exam. Other tests may be needed. Treatment for this condition depends on the cause of the anemia. This information is not intended to replace advice given to you by your health care provider. Make sure you discuss any questions you have with your health care provider. Document Released: 11/14/2005 Document Revised: 09/19/2018 Document Reviewed: 11/08/2017 [employer] Patient Education 2020 [employer]. 04/21/2024 11:41:21 Nausea and Vomiting, Adult, Cjta-ld-Luwq Nausea and Vomiting, Adult Nausea is feeling sick to your stomach or feeling that you are about to throw up (vomit). Vomiting is when food in your stomach is thrown up and out of the mouth. Throwing up can make you feel weak. It can also make you lose too much water in your body (get dehydrated). If you lose too much water in your body, you may: Feel tired. Feel thirsty. Have a dry mouth. Have cracked lips. Go pee (urinate) less often. Older adults and people with other diseases or a weak body defense system (immune system) are at higher risk for losing too much water in the body. If you feel sick to your stomach and you throw up, it is important to follow instructions from your doctor about how to take care of yourself. Follow these instructions at home: Watch your symptoms for any changes. Tell your doctor about them. Follow these instructions to carefor yourself at home. Eating and drinking Take an ORS (oral rehydration solution). This is a drink that is sold at pharmacies and stores. Drink clear fluids in small amounts as you are able, such as: ?Water. ?Ice chips. ?Fruit juice that has water added (diluted fruit juice). ?Low-calorie sports drinks. Eat bland, coui-mc-dfxuml foods in small amounts as you are able, such as: ?Bananas. ?Applesauce. ?Rice. ?Low-fat (lean) meats. ?[place]. ?Crackers. Avoid drinking fluids that have a lot of sugar or caffeine in them. This includes energy drinks, sports drinks, and soda. Avoid alcohol. Avoid spicy or fatty foods. General instructions Take eams-sjj-wifucpn and prescription medicines only as told by your doctor. Drink enough fluid to keep your pee (urine) pale yellow. Wash your hands often with soap and water. If you cannot use soap and water, use hand care process manager. Make sure that all people in your home wash their hands well and often. Rest at home while you get better. Watch your condition for any changes. Take slow and deep breaths when you feel sick to your stomach. Keep all follow-up visits as told by your doctor. This is important. Contact a doctor if: Your symptoms get worse. You have new symptoms. You have a fever. You cannot drink fluids without throwing up. You feel sick to your stomach for more than 2 days. You feel light-headed or dizzy. You have a headache. You have muscle cramps. You have a rash. You have pain while peeing. Get help right away if: You have pain in your chest, neck, arm, or jaw. You feel very weak or you pass out (faint). You throw up again and again. You have throw up that is bright red or looks like black coffee grounds. You have bloody or black poop (stools) or poop that looks like tar. You have a very bad headache, a stiff neck, or both. You have very bad pain, cramping, or bloating in your belly (abdomen). You have trouble breathing. You are breathing very quickly. Your heart is beating very quickly. Your skin feels cold and clammy. You feel confused. You have signs of losing too much water in your body, such as: ?Dark pee, very little pee, or no pee. ?Cracked lips. ?Dry mouth. ?Sunken eyes. ?Sleepiness. ?Weakness. These symptoms may be an emergency. Do not wait to see if the symptoms will go away. Get medical help right away. Call your local emergency services (911 in the [place] Do not drive yourself to the hospital. Summary Nausea is feeling sick to your stomach or feeling that you are about to throw up (vomit). Vomiting is when food in your stomach is thrown up and out of the mouth. Follow instructions from your doctor about eating and drinking to keep from losing too much water in your body. Take xfuj-wri-kopsovg and prescription medicines only as told by your doctor. Contact your doctor if your symptoms get worse or you have new symptoms. Keep all follow-up visits as told by your doctor. This is important. This information is not intended to replace advice given to you by your health care provider. Make sure you discuss any questions you have with your health care provider. Document Released: 03/25/2009 Document Revised: 01/29/2020 Document Reviewed: 03/17/2019 [employer] Patient Education 2020 [employer] 04/21/2024 11:41:15 Hyponatremia, Zhqi-uh-Xfow Hyponatremia Hyponatremia is when the amount of salt (sodium) in your blood is too low. When salt levels are low, your body may take in extra water. This can cause swelling throughout the body. The swelling oftenaffects the brain. What are the causes? This condition may be caused by: Certain medical problems or conditions. Vomiting a lot. Having watery poop (diarrhea) often. Certain medicines or illegal drugs. Not having enough water in the body (dehydration). Drinking too much water. Eating a diet that is low in salt. Large goyal on your body. Too much sweating. What increases the risk? You are more likely to get this condition if you: Have long-term (chronic) kidney disease. Have heart failure. Have a medical condition that causes you to have watery poop often. Do very hard exercises. Take medicines that affect the amount of salt is in your blood. What are the signs or symptoms? Symptoms of this condition include: Headache. Feeling like you may vomit (nausea). Vomiting. Being very tired (lethargic). Muscle weakness and cramps. Not wanting to eat as much as normal (loss of appetite). Feeling weak or light-headed. Severe symptoms of this condition include: Confusion. Feeling restless (agitation). Having a fast heart rate. Passing out (fainting). Seizures. Coma. How is this treated? Treatment for this condition depends on the cause. Treatment may include: Getting fluids through an IV tube that is put into one of your veins. Taking medicines to fix the salt levels in your blood. If medicines are causing the problem, your medicines will need to be changed. Limiting how much water or fluid you take in. Monitoring in the hospital to watch your symptoms. Follow these instructions at home: Take xsgq-bpf-zybbxey and prescription medicines only as told by your doctor. Many medicines can make this condition worse. Talk with your doctor about any medicines that you are taking. Eat and drink exactly as you are told by your doctor. ?Eat only the foods you are told to eat. ?Limit how much fluid you take. Do not drink alcohol. Keep all follow-up visits as told by your doctor. This is important. Contact a doctor if: You feel more like you may vomit. You feel more tired. Your headache gets worse. You feel more confused. You feel weaker. Your symptoms go away and then they come back. You have trouble following the diet instructions. Get help right away if: You have a seizure. You pass out. You keep having watery poop. You keep vomiting. Summary Hyponatremia is when the amount of salt in your blood is too low. When salt levels are low, you can have swelling throughout the body. The swelling mostly affects the brain. Treatment depends on the cause. Treatment may include getting IV fluids, medicines, or not drinkingas much fluid. This information is not intended to replace advice given to you by your health care provider. Make sure you discuss any questions you have with your health care provider. Document Released: 06/18/2012 Document Revised: 12/24/2019 Document Reviewed: 09/10/2019 [employer] Patient Education 2020 [employer] Follow Up Care 04/19/2024 21:05:26 With:VELMA REYNOLDS APRN-[facility] Address: [address] [facility] [address] [facility] [place] [address] [phone] When:04/28/2024 14:15:00 Comments:This is your post-hospital follow-up appointment. With:LUIS ELLIOTT Address: [address] [place] [address] [phone] When:04/28/2024 11:30:00 Comments:This is your post-hospital appointment. Follow-up as scheduled. [facility] 07-02-2024 Note Discharge Instructions Thank you for allowing [facility] to assist you with your healthcare needs. The following is importantdischarge information regarding your hospital visit. Your Care Team LUIS ELLIOTT LISA APRN-CNP Your Diagnosis Anemia B12 deficiency anemia CKD (chronic kidney disease) Depression Hyponatremia Nausea & vomiting Pain of left hip joint Weakness What to do next Instructions From Your Doctor You were admitted due to weakness and hyponatremia. We believe the hyponatremia was caused by dehydration from nausea and vomiting as well as poor intake. Your sodium improved to 134 today with IV fluids. We are unsure what is causing your nausea and vomiting. You had said you were ill for about 4 days but then said really you had been nauseated for about a month. It is possible that starting theoxycodone for your left hip pain could have caused this most recent episode of nausea but does not explain why you have had nausea for a month. We recommend a referral to GI as you may benefit from an EGD to make sure there are no ulcers or other issues with your stomach. We will discharge you on zofran PRN for nausea. Please may sure you are taking in adequate fluids every day and increase your diet as you are able. You have anemia at baseline. Your hemoglobin was 10 on arrival to the ED but then dropped to 8.9 and then 8.1. It is possible that the hemoglobin of 10 was mildly elevated due to dehydration and thendecreased to the 8 range with IV fluids. You have a past history of B12 deficiency and had stated that you were not taking any of your medications at home due to nausea/vomiting. We did check a B12 level but this is still pending. We checked stool for occult blood and this was negative. Please makesure you are taking your cholecalciferol and cyanocobalamin to keep your B12 levels up in the normal range. Your B12 level should be resulted by the time you follow-up with Luis Elliott CNP next week. Please get his recommendation on whether your cyanocobalamin dose needs adjusted. The low hemoglobin could be causing increased feeling of weakness and tiredness. Your blood pressures were fine yesterday but then dropped to a systolic in the 80's after your medications were given. We spoke to Velma Reynolds CNP, today and she advised us to stop your losartan and verapamil and decrease your Coreg to 12.5 mg oral twice daily. She wants to follow-up with you next week to recheck your blood pressures and make further adjustments. We checked orthostatic vitals today and partial orthostatic vitals yesterday and they were negative. If you blood pressure has beenrunning low at home, this may cause you to feel nauseated and weak. You had a fall at home and increased weakness. We had PT and OT see you and they recommended home health PT and OT after discharge but did not feel that you needed a skilled stay. We checked a urinalysis on evaluation in the ED but it really did not appear to be infected. Your family was concerned though that you have a UTI. We sent urine for culture but it is still pending. We will continue to follow the culture and contact you if you have a UTI and need an antibiotic. Please follow-up with Luis Elliott CNP and Yesika Reynolds CNP next week (both on April 28) for further recommendations. If you haveany new or worsening symptoms, please return to the ED. Scheduled Follow-Up Appointments 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 When With Where Contact Information StatusPC OV Hospital Follow-Up 04/28/2024 11:30 AM LUIS COBOS [address] [phone] Confirmed CV OV Hospital Follow Up 04/28/2024 02:15 PM EDVELMA LAO [facility] Confirmed PC OV 05/21/2024 03:00 PM EDT LUIS ELLIOTT [address] [phone] Confirmed CV OV 06/15/2024 03:00 PM EDT VELMA REYNOLDS [facility] Confirmed Follow Up Appointments Follow Up with LUIS ELLIOTT When:04/28/2024 11:30 AM EDT Where:[address] [place] [phone] Additional Information: This is your post-hospital appointment. Follow-up as scheduled. Follow Up with VELMA REYNOLDS When:04/28/2024 02:15 PM EDT Where:[address] [facility] [place] [phone] Additional Information: This is your post-hospital follow-up appointment. The Following Activity and Diet Have Been Ordered for You Discharge Activity - Ordered -- Resume your pre-hospitalization activity, 04/21/24 12:14:00 EDT Discharge Diet - Ordered -- No changes were made to your diet during your hospital stay. Please resume your pre hospitalization diet on discharge., 04/21/24 12:14:00 EDT Someone Will Contact You Regarding These Home Health Referrals Consult Home Health - OT (Home Health OT Consult) - Ordered -- 04/21/24 12:14:00 EDT, Home Therapy Order: OT Eval & Treat, Home Therapy Instruction: Full weight bearing, Reason: ADL assistance Consult Home Health - PT (Home Health PT Consult) - Ordered -- 04/21/24 12:14:00 EDT, Home Therapy Order: PT Eval & Treat, Reason: General Debility, Home Therapy Instruction: Full weight bearing Allergies Ultram confusion codeine nausea lisinopril Cough traMADol Unknown Medications Please ask your primary doctor or pharmacist before taking any other medication not listed, including over the counter drugs, herbal medications, vitamins and or supplements as they may interact withyour home medications. What How Much When Why Instructions Last Dose Changed carvedilol (carvedilol 12.5 mg oral tablet) 1 tab(s) by mouth Twice daily with meals Pickup at [facility]/pharmacy #[id number] DID NOT TAKE TODAY Unchanged acetaminophen (Tylenol Extra Strength 500 mg oral tablet) 2 tab(s) by mouth Four (4) times a day as needed for for pain DID NOT TAKE Unchanged aspirin (aspirin 81 mg oral tablet, chewable) 1 tab(s) by mouth Every day TODAY @ 9AM Unchanged atorvastatin (atorvastatin 40 mg oral tablet) 1 tab(s) by mouth Daily at bedtime DID NOT TAKE Unchanged calcium carbonate (calcium (as carbonate) 600 mg oral tablet) 2 tab(s) by mouth Once a day as needed for for control of stomach acid DID NOT TAKE Unchanged cholecalciferol (Vitamin D3 125 mcg (5000 intl units) oral capsule) 1 cap by mouth Once a day TODAY @ 9AM Unchanged clobetasol topical (clobetasol 0.05% topical cream) 1 application Topical Two (2) times a day Lichen sclerosus for two weeks then slowly taper down to 1-2 times per week DID NOT TAKE Unchanged clopidogrel (clopidogrel 75 mg oral tablet) 1 tab(s) by mouth Once a day DID NOT TAKE Unchanged cyanocobalamin (Vitamin B12 500 mcg oral tablet) 2 tab(s) by mouth Once a day B12 deficiency anemia Duration: 90 Days TODAY @ 9AM Unchanged DULoxetine (DULoxetine 60 mg oral delayed release capsule) 1 cap by mouth Once a day Depression TODAY @ 9AM Unchanged eszopiclone (eszopiclone 3 mg oral tablet) 1 tab(s) by mouth Daily at bedtime Insomnia Duration: 90 Days OARRS reviewed 02/19, february DID NOT TAKE Unchanged fluticasone nasal (fluticasone 50 mcg/ inh NASAL spray) 2 spray(s) each nostril Once a day Acute rhinosinusitis Bilateral serous otitis media Duration: 30 Days shake well before using DID NOT TAKE Unchanged ondansetron (ondansetron 4 mg oral tablet, disintegrating) 1 tab(s) by mouth Every 6 hours as needed for as needed for nausea/vomiting Nausea with vomiting Duration: 3 Days 04/20/2024 @ 8:30AM Unchanged polyethylene glycol 3350 (MiraLax oral powder for reconstitution) 17 gram(s) by mouth Once a day DID NOT TAKE Unchanged traZODone (traZODone 50 mg oral tablet) 1 tab(s) by mouth Daily at bedtime Insomnia DID NOT TAKE Pharmacy Information [facility]/pharmacy #[id number]: [address] [place], [place] [id number] [phone] What How Much When Comments Stop Taking losartan (losartan 100 mg oral tablet) 0.5 tab(s) by mouth Once a day Stop Taking verapamil (verapamil 120 mg/ 12 hours oral tablet, extended release) 1 tab(s) by mouth Once a day Please take this list to your next doctor s visit. Bring all medications you take, including over the counter medications, herbals and other supplements with you to your doctor s visit. Patients and families are reminded to discard old lists and to update any records with all medication providers or retail pharmacies. Medication Leaflets cyanocobalamin (oral) (sye AN oh koe BAL a min) B-12, Vitafusion B-12 Gummies, Vitamin B-12, Vitamin B-12 Time Release What is the most important information I should know about oral cyanocobalamin? Follow all directions on the product label and package. Tell each of your healthcare providers about all your medical conditions, allergies, and all medicines you use. What is oral cyanocobalamin? Cyanocobalamin, also known as Vitamin B12, is a form of vitamin B found in foods. Vitamin B12 is important for growth, cell reproduction and energy, healthy red blood cell formation and to keep your nerve cells healthy. Cyanocobalamin is likely effective in alternative medicine as an aid in treating or preventing low levels of vitamin B12 in your body. Low levels of Vitamin B12 can be caused by an autoimmune disease, pernicious anemia, certain types of surgery, stomach disorders, or malnutrition. Cyanocobalamin has been used in alternative medicine as a possibly effective aid in treating cankersores, and may help lower homocysteine levels in blood (a risk factor for heart disease). Cyanocobalamin has also been used to treat memory and thinking problems, Alzheimer's disease, reduce falls, help with bone health, cataracts, and sleep disorders. However, research has shown that cyanocobalamin may not be effective in treating these conditions. Cyanocobalamin may also be used for purposes not listed in this medication guide. What should I discuss with my healthcare provider before using oral cyanocobalamin? You should not use cyanocobalamin if you are allergic to vitamin B12, cobalamin, or cobalt. Ask a doctor, pharmacist, or other healthcare provider if it is safe for you to use this product ifyou have ever had: any condition that makes it hard for your body to absorb nutrients from food (malabsorption); cancer; or if you use a blood thinner (such as warfarin). Ask a doctor before using cyanocobalamin if you are or . Do not give cyanocobalamin to a child without medical advice. How should I use oral cyanocobalamin? When considering the use of cyanocobalamin, seek the advice of your doctor. You may also consider consulting a practitioner who is trained in the use of herbal/health supplements. If you choose to use cyanocobalamin, use it as directed on the package or as directed by your doctor, pharmacist, or other healthcare provider. Do not use more of this product than is recommended on the label. Do not use different forms of cyanocobalamin (pills, liquids, and others) at the same time or you could have an overdose. Carefully follow instructions about whether to take your cyanocobalamin with or without food. Swallow the extended-release tablet whole and do not crush, chew, or break it. You must chew the chewable tablet thoroughly before you swallow it. Measure cyanocobalamin liquid with the supplied measuring device (not a kitchen spoon). Do not swallow a lozenge, disintegrating tablet, or sublingual tablet whole. Allow it to dissolve in your mouth without chewing. sublingual tablet or liquid should be placed under your tongue. If you need surgery, tell the surgeon ahead of time that you are using cyanocobalamin. You may needto stop using cyanocobalamin for a short time. Cyanocobalamin can affect the results of certain lab tests. Tell any doctor who treats you that youare using cyanocobalamin. The recommended daily dose of cyanocobalamin changes with age. Follow your healthcare provider's instructions. You may also consult the Office of Dietary Supplements of the NIH, or the USDA Nutrient Database of recommended daily allowances for more information. Call your doctor if the condition you are treating with cyanocobalamin does not improve, or if it gets worse while using this product. Store at room temperature away from moisture, heat, and light. Store the cyanocobalamin liquid in the refrigerator after opening for best results. What happens if I miss a dose? Use cyanocobalamin as soon as you can, but skip the missed dose if it is almost time for your next dose. Do not use two doses at one time. What happens if I overdose? Seek emergency medical attention or call the Poison Help line at . What should I avoid while using oral cyanocobalamin? Avoid drinking large amounts of alcohol. Heavy drinking can make it harder for your body to absorb cyanocobalamin. What are the possible side effects of oral cyanocobalamin? Get emergency medical help if you have signs of an allergic reaction: hives, difficult breathing, swelling of your face, lips, tongue, or throat. Less serious side effects may be more likely, and you may have none at all. This is not a complete list of side effects and others may occur. Call your doctor for medical advice about side effects. You may report side effects to FDA at 6-541-WXK-2101. What other drugs will affect oral cyanocobalamin? Do not use cyanocobalamin without medical advice if you are using any of the following medications: vitamin C supplements; folic acid; potassium supplements; oral diabetes medicine that contains metformin; or medicines that reduce stomach acid, such as cimetidine, omeprazole, lansoprazole, Nexium, Prevacid,Prilosec, Zantac, and others. This list is not complete. Other drugs may affect cyanocobalamin, including prescription and hhsj-kgo-okxgahd medicines, vitamins, and herbal products. Not all possible drug interactions are listed here. Where can I get more information? Consult with a licensed healthcare professional before using any herbal/health supplement. Whether you are treated by a medical doctor or a practitioner trained in the use of natural medicines/supplements, make sure all your healthcare providers know about all of your medical conditions and treatments. Remember, keep this and all other medicines out of the reach of children, never share your medicines with others, and use this medication only for the indication prescribed. Every effort has been made to ensure that the information provided by [employer] is accurate, up-to-date, and complete, but no guarantee is made to that effect. Drug information contained herein may be time sensitive. [employer] information has been compiled for use by healthcare practitioners and consumers in the [place] and therefore [employer] does not warrant that uses outside of the [place] are appropriate, unless specifically indicated otherwise. [employer]'s drug information does not endorse drugs, diagnose patients or recommend therapy. [facility] information isan informational resource designed to assist licensed healthcare practitioners in caring for their p atients and/or to serve consumers viewing this service as a supplement to, and not a substitute for, the expertise, skill, knowledge and judgment of healthcare practitioners. The absence of a warningfor a given drug or drug combination in no way should be construed to indicate that the drug or drug combination is safe, effective or appropriate for any given patient. [facility] does not assume any responsibility for any aspect of healthcare administered with the aid of information [facility] provides. The information contained herein is not intended to cover all possible uses, directions, precautions, warnings, drug interactions, allergic reactions, or adverse effects. If you have questions about the drugs you are taking, check with your doctor, nurse or pharmacist. Copyright 5080-4544 [employer]. Version: 9.. Revision Date: 07/23/2023. carvedilol (SERA ve dil ole) Coreg, Coreg CR What is the most important information I should know about carvedilol? You should not take carvedilol if you have asthma, bronchitis, emphysema, severe liver disease, or a serious heart condition such as heart block, 'sick sinus syndrome,' or slow heart rate (unless youhave a pacemaker). What is carvedilol? Carvedilol is a beta-bandar that is used to treat heart failure and hypertension (high blood pressure). Carvedilol is also used after a heart attack that has caused your heart not to pump as well. Carvedilol may also be used for purposes not listed in this medication guide. What should I discuss with my healthcare provider before taking carvedilol? You should not take carvedilol if you are allergic to it, or if you have: asthma, bronchitis, emphysema; severe liver disease; or a serious heart condition such as severe heart failure, heart block, 'sick sinus syndrome,' or slowheart rate (unless you have a pacemaker). Tell your doctor if you have ever had: coronary artery disease (clogged arteries); slow heartbeats that have caused you to faint; fluid retention; asthma or other lung problems; angina (chest pain); diabetes (taking carvedilol can make it harder for you to tell when you have low blood sugar); a thyroid disorder; kidney disease; circulation problems (such as Raynaud's syndrome); or pheochromocytoma (tumor of the adrenal gland). Tell your doctor if you are or . Carvedilol is not approved for use by anyone younger than 18 years old. How should I take carvedilol? Follow all directions on your prescription label and read all medication guides or instruction sheets. Your doctor may occasionally change your dose. Use the medicine exactly as directed. Carvedilol works best if you take it with food, at the same time every day. Swallow the extended-release capsule whole and do not crush, chew, break, or open it. If you cannot swallow a capsule whole, open it and sprinkle the medicine into a spoonful of cold applesauce. Swallow the mixture right away without chewing. Do not save it for later use. If you are switched from carvedilol tablets to carvedilol extended-release capsules (Coreg CR), your daily total dose of this medicine may be higher or lower than before. Older adults may be more likely to become dizzy or feel faint when switching from tablets to extended-release capsules. Follow your doctor's instructions. Your blood pressure will need to be checked often. If you need surgery (including cataract surgery), tell your surgeon you currently use this medicine. You may need to stop for a short time. You should not stop using carvedilol suddenly. Stopping suddenly may cause chest pain or a heart attack. Follow your doctor's instructions about tapering your dose. If you are being treated for high blood pressure, keep using this medication even if you feel well.High blood pressure often has no symptoms. You may need to use blood pressure medication for the rest of your life. Carvedilol is only part of a complete treatment program that may also include diet, exercise, and weight control. Follow your doctor's instructions very closely. Store at room temperature away from moisture and heat. What happens if I miss a dose? Take the medicine as soon as you can, but skip the missed dose if it is almost time for your next dose. Do not take two doses at one time. What happens if I overdose? Seek emergency medical attention or call the Poison Help line at . Overdose symptoms may include uneven heartbeats, shortness of breath, bluish- colored fingernails, dizziness, weakness, fainting, and seizure (convulsions). What should I avoid while taking carvedilol? Avoid driving or hazardous activity until you know how this medicine will affect you. Your reactions could be impaired. Avoid getting up too fast from a sitting or lying position, or you may feel dizzy. What are the possible side effects of carvedilol? Get emergency medical help if you have signs of an allergic reaction: hives; difficulty breathing; swelling of your face, lips, tongue, or throat. Call your doctor at once if you have: a light-headed feeling, like you might pass out; slow or uneven heartbeats; cold feeling or numbness in your fingers or toes; chest pain, dry cough, wheezing, chest tightness; heart problems--swelling, rapid weight gain, feeling short of breath; or high blood sugar--increased thirst, increased urination, dry mouth, fruity breath odor. Common side effects may include: dizziness; slow heartbeats; diarrhea; weight gain; dry eyes; or problems wearing contact lenses. This is not a complete list of side effects and others may occur. Call your doctor for medical advice about side effects. You may report side effects to FDA at 7-632-LJH-3766. What other drugs will affect carvedilol? Sometimes it is not safe to use certain medications at the same time. Some drugs can affect your blood levels of other drugs you take, which may increase side effects or make the medications less effective. Other drugs may affect carvedilol, including prescription and aspy-puw-bknmrth medicines, vitamins,and herbal products. Tell your doctor about all your current medicines and any medicine you start or stop using. Where can I get more information? Your pharmacist can provide more information about carvedilol. Remember, keep this and all other medicines out of the reach of children, never share your medicines with others, and use this medication only for the indication prescribed. Every effort has been made to ensure that the information provided by [employer] is accurate, up-to-date, and complete, but no guarantee is made to that effect. Drug information contained herein may be time sensitive. [employer] information has been compiled for use by healthcare practitioners and consumers in the [place] and therefore [employer] does not warrant that uses outside of the [place] are appropriate, unless specifically indicated otherwise. [employer] drug information does not endorse drugs, diagnose patients or recommend therapy. [employer] drug information isan informational resource designed to assist licensed healthcare practitioners in caring for their p atients and/or to serve consumers viewing this service as a supplement to, and not a substitute for, the expertise, skill, knowledge and judgment of healthcare practitioners. The absence of a warningfor a given drug or drug combination in no way should be construed to indicate that the drug or drug combination is safe, effective or appropriate for any given patient. [employer] does not assume any responsibility for any aspect of healthcare administered with the aid of information [employer] provides. The information contained herein is not intended to cover all possible uses, directions, precautions, warnings, drug interactions, allergic reactions, or adverse effects. If you have questions about the drugs you are taking, check with your doctor, nurse or pharmacist. Copyright 8395-7739 [employer]. Version: 16.01. Revision Date: 02/12/2019. ondansetron (oral) (on RIDDHI se ramón) What is the most important information I should know about ondansetron? You should not use ondansetron if you are also using apomorphine (Apokyn). What is ondansetron? Ondansetron blocks the actions of chemicals in the body that can trigger nausea and vomiting. Ondansetron is used to prevent nausea and vomiting that may be caused by surgery, cancer chemotherapy, or radiation treatment. Ondansetron may be used for purposes not listed in this medication guide. What should I discuss with my health care provider before taking ondansetron? You should not use ondansetron if: you are also using apomorphine (Apokyn); or you are allergic to ondansetron or similar medicines (dolasetron, granisetron, palonosetron). To make sure ondansetron is safe for you, tell your doctor if you have: liver disease; an electrolyte imbalance (such as low levels of potassium or magnesium in your blood); congestive heart failure, slow heartbeats; a personal or family history of long QT syndrome; or a blockage in your digestive tract (stomach or intestines). Ondansetron is not expected to harm an unborn baby. Tell your doctor if you are . It is not known whether ondansetron passes into breast milk or if it could harm a nursing baby. Tell your doctor if you are breast-feeding a baby. Ondansetron is not approved for use by anyone younger than 4 years old. Ondansetron orally disintegrating tablets may contain phenylalanine. Tell your doctor if you have phenylketonuria (PKU). How should I take ondansetron? Follow all directions on your prescription label. Do not take this medicine in larger or smaller amounts or for longer than recommended. Ondansetron can be taken with or without food. The first dose of ondansetron is usually taken before the start of your surgery, chemotherapy, or radiation treatment. Follow your doctor's dosing instructions very carefully. Take the ondansetron regular tablet with a full glass of water. To take the orally disintegrating tablet (Zofran ODT): Keep the tablet in its blister pack until you are ready to take it. Open the package and peel back the foil. Do not push a tablet through the foil or you may damage the tablet. Use dry hands to remove the tablet and place it in your mouth. Do not swallow the tablet whole. Allow it to dissolve in your mouth without chewing. Swallow several times as the tablet dissolves. To use ondansetron oral soluble film (strip) (Zuplenz): Keep the strip in the foil pouch until you are ready to use the medicine. Using dry hands, remove the strip and place it on your tongue. It will begin to dissolve right away. Do not swallow the strip whole. Allow it to dissolve in your mouth without chewing. Swallow several times after the strip dissolves. If desired, you may drink liquid to help swallow the dissolved strip. Wash your hands after using Zuplenz. Measure liquid medicine with the dosing syringe provided, or with a special dose-measuring spoon ormedicine cup. If you do not have a dose-measuring device, ask your pharmacist for one. Store at room temperature away from moisture, heat, and light. Store liquid medicine in an upright position. What happens if I miss a dose? Take the missed dose as soon as you remember. Skip the missed dose if it is almost time for your next scheduled dose. Do not take extra medicine to make up the missed dose. What happens if I overdose? Seek emergency medical attention or call the Poison Help line at . Overdose symptoms may include sudden loss of vision, severe constipation, feeling light-headed, or fainting. What should I avoid while taking ondansetron? Ondansetron may impair your thinking or reactions. Be careful if you drive or do anything that requires you to be alert. What are the possible side effects of ondansetron? Get emergency medical help if you have signs of an allergic reaction: rash, hives; fever, chills, difficult breathing; swelling of your face, lips, tongue, or throat. Call your doctor at once if you have: severe constipation, stomach pain, or bloating; headache with chest pain and severe dizziness, fainting, fast or pounding heartbeats; fast or pounding heartbeats; jaundice (yellowing of the skin or eyes); blurred vision or temporary vision loss (lasting from only a few minutes to several hours); high levels of serotonin in the body--agitation, hallucinations, fever, fast heart rate, overactivereflexes, nausea, vomiting, diarrhea, loss of coordination, fainting. Common side effects may include: diarrhea or constipation; headache; drowsiness; or tired feeling. This is not a complete list of side effects and others may occur. Call your doctor for medical advice about side effects. You may report side effects to FDA at 5-154-HEH-2788. What other drugs will affect ondansetron? Ondansetron can cause a serious heart problem, especially if you use certain medicines at the same time, including antibiotics, antidepressants, heart rhythm medicine, antipsychotic medicines, and medicines to treat cancer, malaria, HIV or AIDS. Tell your doctor about all medicines you use, and those you start or stop using during your treatment with ondansetron. Taking ondansetron while you are using certain other medicines can cause high levels of serotonin to build up in your body, a condition called 'serotonin syndrome,' which can be fatal. Tell your doctor if you also use: medicine to treat depression; medicine to treat a psychiatric disorder; a narcotic (opioid) medication; or medicine to prevent nausea and vomiting. This list is not complete and many other drugs can interact with ondansetron. This includes prescription and vatr-zpw-bbdtgje medicines, vitamins, and herbal products. Give a list of all your medicines to any healthcare provider who treats you. Where can I get more information? Your pharmacist can provide more information about ondansetron. Remember, keep this and all other medicines out of the reach of children, never share your medicines with others, and use this medication only for the indication prescribed. Every effort has been made to ensure that the information provided by [employer] is accurate, up-to-date, and complete, but no guarantee is made to that effect. Drug information contained herein may be time sensitive. [employer] information has been compiled for use by healthcare practitioners and consumers in the [place] and therefore [employer] does not warrant that uses outside of the [place] are appropriate, unless specifically indicated otherwise. [employer] drug information does not endorse drugs, diagnose patients or recommend therapy. [employer] drug information isan informational resource designed to assist licensed healthcare practitioners in caring for their p atients and/or to serve consumers viewing this service as a supplement to, and not a substitute for, the expertise, skill, knowledge and judgment of healthcare practitioners. The absence of a warningfor a given drug or drug combination in no way should be construed to indicate that the drug or drug combination is safe, effective or appropriate for any given patient. [employer] does not assume any responsibility for any aspect of healthcare administered with the aid of information [employer] provides. The information contained herein is not intended to cover all possible uses, directions, precautions, warnings, drug interactions, allergic reactions, or adverse effects. If you have questions about the drugs you are taking, check with your doctor, nurse or pharmacist. Copyright 6310-9981 [employer]. Version: 16.. Revision Date: 05/23/2023. Education Materials Vitamin B12 Deficiency Vitamin B12 deficiency means that your body does not have enough vitamin B12. The body needs this vitamin: To make red blood cells. To make genes (DNA). To help the nerves work. If you do not have enough vitamin B12 in your body, you can have health problems. What are the causes? Not eating enough foods that contain vitamin B12. Not being able to absorb vitamin B12 from the food that you eat. Certain digestive system diseases. A condition in which the body does not make enough of a certain protein, which results in too few red blood cells (pernicious anemia). Having a surgery in which part of the stomach or small intestine is removed. Taking medicines that make it hard for the body to absorb vitamin B12. These medicines include: ? Heartburn medicines. ? Some antibiotic medicines. ? Other medicines that are used to treat certain conditions. What increases the risk? Being older than age 50. Eating a vegetarian or vegan diet, especially while you are . Eating a poor diet while you are . Taking certain medicines. Having alcoholism. What are the signs or symptoms? In some cases, there are no symptoms. If the condition leads to too few blood cells or nerve damage, symptoms can occur, such as: Feeling weak. Feeling tired (fatigued). Not being hungry. Weight loss. A loss of feeling (numbness) or tingling in your hands and feet. Redness and burning of the tongue. Being mixed up (confused) or having memory problems. Sadness (depression). Problems with your senses. This can include color blindness, ringing in the ears, or loss of taste. Watery poop (diarrhea) or trouble pooping (constipation). Trouble walking. If anemia is very bad, symptoms can include: Being short of breath. Being dizzy. Having a very fast heartbeat. How is this treated? Changing the way you eat and drink, such as: ? Eating more foods that contain vitamin B12. ? Drinking little or no alcohol. Getting vitamin B12 shots. Taking vitamin B12 supplements. Your doctor will tell you the dose that is best for you. Follow these instructions at home: Eating and drinking Eat lots of healthy foods that contain vitamin B12. These include: ? Meats and poultry, such as beef, pork, chicken, turkey, and organ meats, such as liver. ? Seafood, such as clams, rainbow trout, salmon, tuna, and levy. ? Eggs. ? Cereal and dairy products that have vitamin B12 added to them. Check the label. The items listed above may not be a complete list of what you can eat and drink. Contact a dietitian for more options. General instructions Get any shots as told by your doctor. Take supplements only as told by your doctor. Do not drink alcohol if your doctor tells you not to. In some cases, you may only be asked to limitalcohol use. Keep all follow-up visits as told by your doctor. This is important. Contact a doctor if: Your symptoms come back. Get help right away if: You have trouble breathing. You have a very fast heartbeat. You have chest pain. You get dizzy. You pass out. Summary Vitamin B12 deficiency means that your body is not getting enough vitamin B12. In some cases, there are no symptoms of this condition. Treatment may include making a change in the way you eat and drink, getting vitamin B12 shots, or taking supplements. Eat lots of healthy foods that contain vitamin B12. This information is not intended to replace advice given to you by your health care provider. Make sure you discuss any questions you have with your health care provider. Document Released: 09/25/2012 Document Revised: 06/16/2019 Document Reviewed: 06/16/2019 [employer] Patient Education 2020 [employer]. Anemia Anemia is a condition in which you do not have enough red blood cells or hemoglobin. Hemoglobin is a substance in red blood cells that carries oxygen. When you do not have enough red blood cells or hemoglobin (are anemic), your body cannot get enough oxygen and your organs may not work properly. Asa result, you may feel very tired or have other problems. What are the causes? Common causes of anemia include: Excessive bleeding. Anemia can be caused by excessive bleeding inside or outside the body, including bleeding from the intestine or from periods in women. Poor nutrition. Long-lasting (chronic) kidney, thyroid, and liver disease. Bone marrow disorders. Cancer and treatments for cancer. HIV (human immunodeficiency virus) and AIDS (acquired immunodeficiency syndrome). Treatments for HIV and AIDS. Spleen problems. Blood disorders. Infections, medicines, and autoimmune disorders that destroy red blood cells. What are the signs or symptoms? Symptoms of this condition include: Minor weakness. Dizziness. Headache. Feeling heartbeats that are irregular or faster than normal (palpitations). Shortness of breath, especially with exercise. Paleness. Cold sensitivity. Indigestion. Nausea. Difficulty sleeping. Difficulty concentrating. Symptoms may occur suddenly or develop slowly. If your anemia is mild, you may not have symptoms. How is this diagnosed? This condition is diagnosed based on: Blood tests. Your medical history. A physical exam. Bone marrow biopsy. Your health care provider may also check your stool (feces) for blood and may do additional testingto look for the cause of your bleeding. You may also have other tests, including: Imaging tests, such as a CT scan or MRI. Endoscopy. Colonoscopy. How is this treated? Treatment for this condition depends on the cause. If you continue to lose a lot of blood, you may need to be treated at a hospital. Treatment may include: Taking supplements of iron, vitamin B12, or folic acid. Taking a hormone medicine (erythropoietin) that can help to stimulate red blood cell growth. Having a blood transfusion. This may be needed if you lose a lot of blood. Making changes to your diet. Having surgery to remove your spleen. Follow these instructions at home: Take [id number] and prescription medicines only as told by your health care provider. Take supplements only as told by your health care provider. Follow any diet instructions that you were given. Keep all follow-up visits as told by your health care provider. This is important. Contact a health care provider if: You develop new bleeding anywhere in the body. Get help right away if: You are very weak. You are short of breath. You have pain in your abdomen or chest. You are dizzy or feel faint. You have trouble concentrating. You have bloody or black, tarry stools. You vomit repeatedly or you vomit up blood. Summary Anemia is a condition in which you do not have enough red blood cells or enough of a substance in your red blood cells that carries oxygen (hemoglobin). Symptoms may occur suddenly or develop slowly. If your anemia is mild, you may not have symptoms. This condition is diagnosed with blood tests as well as a medical history and physical exam. Other tests may be needed. Treatment for this condition depends on the cause of the anemia. This information is not intended to replace advice given to you by your health care provider. Make sure you discuss any questions you have with your health care provider. Document Released: 11/14/2005 Document Revised: 09/19/2018 Document Reviewed: 11/08/2017 [employer] Patient Education 2020 [employer] Nausea and Vomiting, Adult Nausea is feeling sick to your stomach or feeling that you are about to throw up (vomit). Vomiting is when food in your stomach is thrown up and out of the mouth. Throwing up can make you feel weak. It can also make you lose too much water in your body (get dehydrated). If you lose too much water in your body, you may: Feel tired. Feel thirsty. Have a dry mouth. Have cracked lips. Go pee (urinate) less often. Older adults and people with other diseases or a weak body defense system (immune system) are at higher risk for losing too much water in the body. If you feel sick to your stomach and you throw up, it is important to follow instructions from your doctor about how to take care of yourself. Follow these i (more content not included)... [facility]07-01-2024 Note Date of Service 04/20/2024 Chief Complaint pt arrived with [facility] with c/o a fall. was seen this morning at [facility] for nausea and abd pain. everything was negative at [facility]. tonight she fell and couldnt get out of the tub. History of Present Illness Patient is a 68-year-old female, who follows with Luis Elliott CNP with a past medical history significant for CAD s/p PTCA and CABG, hypertension, chronic kidney disease, and depression[facility]. Patient has an active history recently for ED visits as well as PCP visits. She states that she presented to [facility] ED yesterday morning due to nausea/vomiting and left hip pain. She has been bedbound for about 4 days due to nausea and vomiting and generally not feeling well. 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 Patient was referred to [facility] who plans for surgery in the future and was started on oxycodone for pain. She states that [facility] ED did some lab work and repeated CT of her left hip and discharged her home. This provider unable to access patient's records at this time but due to a 3 day difference between CTs there was undoubtedly little to no change in the reading. Patient went home and decided to take a bath. While in the bathtub she fell twice and hit her head at least once. She denies any loss ofconsciousness. Patient reported that she felt very weak on arrival to the ED. She was again complaining of severe pain in her left hip. Patient states that she had a sinus infection a few days ago but did not feel that that was related to her not feeling well. She denies any fever, chills, cough, shortness of breath, chest pain, abdominal pain, or dysuria. All questions. In the emergency department, CT of the head revealed no acute intracranial abnormality. Left-sided paranasal sinus disease. CT of the cervical spine revealed no acute osseous abnormality, degenerative changes. Chest x-ray revealed no acute cardiopulmonary process. X-ray of the left hip revealed no a cute fracture and the known avascular necrosis of the femoral head. White blood cell count 11.9. CBC remarkable for hemoglobin 8.9 and hematocrit 26.7. BMP significant for sodium 127, BUN 28 and creatinine 1.32. Lipase negative. Troponin mildly elevated 60 but then trended down to 47. COVID-19, RSVand Flu A and B negative. Patient was administered 1 liter of NS, 4 mg zofran IV and 50 mcg fentanyl IV in the ED. The case was discussed with the ED physician who recommended admission for treatmentof hyponatremia and weakness. Patient was transferred to medical surgical unit for further evaluation and treatment. We will continue NS @ 75cc/hr. We will check urine sodium, urine osmolality, and se rum osmolality. We will send a urine for culture at granddaughter's request. Consult placed to PT and OT to evaluate and treat. Repeat CBC and BMP in the am. Patient seen and evaluated this morning while resting in bed, granddaughter at the bedside. Granddaughter states that patient has had nausea and vomiting for about a month. She states patient has seen her PCP for this and has been worked up for possible causes. All testing was done at [facility] should beavailable in the system. The last 4 days have been the worst with patient refusing to get out of bed and not eating or drinking much. Granddaughter states that patient has not been taking her medications for at least 4 days. Patient denies any recent medication changes, although, she was just started on oxycodone on 04/16 for the left hip pain. Patient denies a history of diabetes. Granddaughter concerned because patient's urine the other day was very dark and foul-smelling. Urinalysis did not look infected but we can send urine for culture. Patient advised that a low sodium can cause weaknessand, in extreme lows, nausea and vomiting. Her sodium is not that low that we would think it would cause those symptoms. Discussed plan with patient and granddaughter and they are agreeable with thisplan. They are also aware that, if patient has had issues with ongoing nausea and vomiting, she likely needs an EGD and that cannot be done at [facility] inpatient. She will have to be referred to GI. All questions answered. UPDATE: Was notified later that patient had a low blood pressure and, per granddaughter, was confused again. Will give patient an NS bolus. Review of Systems Review of Systems: Reviewed in detail, including general health, HEENT, cardiovascular, respiratory, gastrointestinal, genitourinary, endocrine, musculoskeletal, neurologic, vascular, skin, and psychiatric. All are negative except for those listed in the History of Present Illness. Physical Exam Vitals and Measurements T: 36.7 C (Oral) TMIN: 36.6 C (Oral) TMAX: 37.7 C (Oral) HR: 76 (Monitored) RR: 20 BP: 100/78 SpO2:95% HT: 155 cm WT: 61.9 kg BMI: 25.76 Weight Dosing Weight: 61.9 kg (04/20/24) General: No acute distress. Patient is alert, chronically ill-appearing. Skin: No rash. Skin is warm, dry and intact. HEENT: Head is normocephalic, atraumatic. Pupils are equal, round and reactive. Neck: Supple. No lymphadenopathy, thyromegaly. Lungs: Bilaterally clear but diminished without crepitation or wheeze. Unlabored. Heart: Heart is regular rhythm, S1, S2. No murmurs, gallops or rubs. Abdomen: Abdomen is soft, nontender. Bowels sounds present in all quadrants. Extremities: No clubbing, cyanosis, or edema. Peripheral pulses palpable. No calf tenderness. Neurological: Patient is awake and alert to person, place and time. Following simple commands, moving all extremities. Lab Results 04/20 05:40 WBC: 11.2 H Hgb: 8.9 L Hct: 26.2 L Platelet: 171 Neutrophil %: 82.3 H Glucose Level: 91 Sodium Level: 128 L Potassium Level: 3.8 BUN: 22 H Creatinine Lvl (s): 1.22 H 04/19 22:18 WBC: 11.9 H Hgb: 8.9 L Hct: 26.7 L Platelet: 183 Neutrophil %: 82.4 H 04/19 21:27 Glucose Level: 95 Sodium Level: 127 L Potassium Level: 4.0 BUN: 28 H Creatinine Lvl (s): 1.32 H Imaging Results and Diagnostics XR Hip Left w/Pelvis 4 Views Result Date: April 19, 2024 Verified By: ITALO FITZPATRICK DO CLINICAL STATEMENT: IMPRESSION: No acute fracture dislocation. Avascular necrosis of the left femoral head, seen to better advantage on the recent CT. I have personally reviewed the images of this examination and agree with the resident's findings and interpretation. XR Chest 1 View Result Date: April 19, 2024 Verified By: ITALO FITZPATRICK DO CLINICAL STATEMENT: IMPRESSION: No acute cardiopulmonary process. I have personally reviewed the images of this examination and agree with the resident's findings and interpretation. CT Spine Cervical w/o Contrast Result Date: April 19, 2024 Verified By: FAUSTINA Perez CLINICAL STATEMENT: IMPRESSION: 1. No acute osseous injury. 2. Degenerative changes C4-C5 and C5-C6. CT Head or Brain w/o Contrast Result Date: April 19, 2024 Verified By: ITALO FITZPATRICK DO CLINICAL STATEMENT: IMPRESSION: No acute intracranial abnormality. Left-sided paranasal sinus disease. I have personally reviewed the images of this examination and agree with the resident's findings and interpretation. Assessment/Plan 1. Hyponatremia Acute, new onset, likely secondary to dehydration. Continue NS @ 75cc/hr for 24 hours. Encourage POintake. Check urine sodium, urine osmolality, and serum osmolality. Repeat BMP in the am. 2. Nausea & vomiting Acute on chronic. Patient reports that she has been nauseated for about a month. She also reports that she has had spells of nausea in the past and is not sure why. She was started on a narcotic for her chronic hip pain on 04/16 so that possibly worsened it. Patient may need to see GI as an outpatient to have an EGD. Continue Zofran 4 mg IV PRN. 3. Anemia Chronic, secondary to B12 deficiency. Hemoglobin baseline 11 range- down to 8.9 this am. This may be secondary to patient not taking her medications. Check B12 level in am. 4. Weakness Acute, likely secondary to poor intake from n/v and hyponatremia. Consult placed to PT and OT to evaluate and treat - stated can go home with HH PT/OT. Continue plan as above. 5. CKD (chronic kidney disease) Chronic, at baseline. GFR runs 42-48 - 44 today. 6. Depression Chronic. Continue current home medications. 7. Pain of left hip joint Chronic. Continue oxycodone for pain. Has follow-up scheduled with [facility]. DVT prophylaxis with SCDs. Code status: Full Code. Labs, diagnostic test and progress notes reviewed as noted in HPI. Plan of care discussed with patient. All questions answered. Patient verbalizes understanding and is agreeable with plan of care. This case was discussed with collaborating physician, Dr. Ventura Marcano. 75 minutes spent reviewing past diagnostic tests, reviewing lab results, vital sign trends, medicalhistory, reviewing medications and ordering home medications, examining patient, discussed plan of care with care team, collaborating with physician, and documenting in chart. Problem List/Past Medical History Ongoing Anemia B12 deficiency anemia Bronchitis CABG - Coronary artery bypass graft CAD - Coronary artery disease Carotid stenosis, bilateral CKD (chronic kidney disease) Constipation Cystocele with prolapse Depression Glasses Headache Heart disease High risk medication use History of carotid endarterectomy History of PTCA Hx of CABG Hypertension HYPERTENSION, ESSENTIAL Insomnia Irritable bowel syndrome Lipoma Medicare annual wellness visit, subsequent Nephrolithiasis Osteoarthritis Osteopenia of femoral neck Preop cardiovascular exam S/P PTCA (PERCUTANEOUS TRANSLUMINAL CORONARY ANGIOPLASTY) Seasonal allergy SOB (shortness of breath) Spasm of back muscles Thoracic outlet syndrome Historical Bowel obstruction Chest pain in adult Insomnia Procedure/Surgical History Cardiac catheterization: 03/11/23 Endarterectomy: 01/04/20 Nerve conduction study: 02/06/17 Duplex ultrasound, carotid: 11/14/16 Lithotripsy: 2007 CABG x 1 - Coronary artery bypass graft x 1 Colonoscopy Abdominal hysterectomy section Cholecystectomy Carotid artery Medications Home Medications (17) Active aspirin 81 mg oral tablet, chewable 81 mg = 1 tab(s), Oral, Daily atorvastatin 40 mg oral tablet 40 mg = 1 tab(s), Oral, qHS calcium (as carbonate) 600 mg oral tablet 1,200 mg = 2 tab(s), PRN, Oral, qDay carvedilol 25 mg oral tablet 1 tab(s), Oral, BID clobetasol 0.05% topical cream 1 juli, Topical, BID clopidogrel 75 mg oral tablet 75 mg = 1 tab(s), Oral, qDay DULoxetine 60 mg oral delayed release capsule 60 mg = 1 cap(s), Oral, qDay eszopiclone 3 mg oral tablet 3 mg = 1 tab(s), Oral, qHS fluticasone 50 mcg/inh NASAL spray 100 mcg = 2 spray(s), Nostril, each, qDay losartan 100 mg oral tablet 50 mg = 0.5 tab(s), Oral, qDay MiraLax oral powder for reconstitution 17 gram(s), Oral, qDay ondansetron 4 mg oral tablet, disintegrating 4 mg = 1 tab(s), PRN, Oral, q6hr traZODone 50 mg oral tablet 50 mg = 1 tab(s), Oral, qHS Tylenol Extra Strength 500 mg oral tablet 1,000 mg = 2 tab(s), PRN, Oral, QID verapamil 120 mg/12 hours oral tablet, extended release 1 tab(s), Oral, qDay Vitamin B12 500 mcg oral tablet 1,000 mcg = 2 tab(s), Oral, qDay Vitamin D3 125 mcg (5000 intl units) oral capsule 125 mcg = 1 cap(s), Oral, qDay Allergies Ultram confusion codeine nausea lisinopril Cough traMADol Unknown Social History Smoking Status - 07/09/2018 Never smoker Alcohol - Denies Alcohol Use, 07/09/2018 Use: Never., 07/17/2019 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 Appetite Good. Eating Difficulties None. Caffeine intake amount: None., 05/01/2022 Substance Abuse - Denies Substance Abuse, 07/09/2018 Use: Never., 07/17/2019 Tobacco Nicotine Use: Former smoker, quit more than 30 days ago., 12/06/2022 Family History Cancer: Father, Sister and Brother. Heart disease: Mother, Sister and Brother. Health Status Family Member(s) Immunizations pneumococcal 13-valent conjugate vaccine: 0.5 unknown unit (06/19/18) pneumococcal 13-valent conjugate vaccine: 0 unknown unit (10/21/12) pneumococcal 23-valent vaccine(Pneumovax: 0 unknown unit (09/19/12) SARS-CoV-2 mRNA (tozinameran) vaccine: 0.3 unknown unit (07/31/21) SARS-CoV-2 mRNA (tozinameran) vaccine: 0.3 unknown unit (11/22/20) SARS-CoV-2 mRNA (tozinameran) vaccine: 0.3 unknown unit (11/01/20) tetanus/diphth/pertuss (Tdap) adult/adol: 0.5 mL (03/03/24) zoster vaccine live: 0 unknown unit (04/14/16) zoster vaccine live: 0 unknown unit (09/19/14) Code Status Code Status - Ordered -- 04/19/24 23:42:00 EDT, Full Code, Constant Order Digitally Signed by OKSANA TIRADO on 04/20/2024 03:27 PM [facility]07-01-2024 Evaluation + Plan noteExtracted from: Title:History and Physical Author:OKSANA TIRADO Date:04/20/24 1. Hyponatremia Acute, new onset, likely secondary to dehydration. Continue NS @ 75cc/hr for 24 hours. Encourage PO intake. Check urine sodium, urine osmolality, and serum osmolality. Repeat BMP in the am. 2. Nausea & vomiting Acute on chronic. Patient reports that she has been nauseated for about a month. She also reports that she has had spells of nausea in the past and is not sure why. She was started on a narcotic for her chronic hip pain on 04/16 so that possibly worsened it. Patient may need to see GI as an outpatient to have an EGD. Continue Zofran 4 mg IV PRN. 3. Anemia Chronic, secondary to B12 deficiency. Hemoglobin baseline 11 range- down to 8.9 this am. This may be secondary to patient not taking her medications. Check B12 level in am. 4. Weakness Acute, likely secondary to poor intake from n/v and hyponatremia. Consult placed to PT and OT to evaluate and treat - stated can go home with PT/OT. Continue plan as above. 5. CKD (chronic kidney disease) Chronic, at baseline. GFR runs 42-48 - 44 today. 6. Depression Chronic. Continue current home medications. 7. Pain of left hip joint Chronic. Continue oxycodone for pain. Has follow-up scheduled with [facility]. DVT prophylaxis with SCDs. Code status: Full Code. Labs, diagnostic test and progress notes reviewed as noted in HPI. Plan of care discussed with patient. All questions answered. Patient verbalizes understanding and is agreeable with plan of care. This case was discussed with collaborating physician, Dr. Ventura Marcano. 75 minutes spent reviewing past diagnostic tests, reviewing lab results, vital sign trends, medical history, reviewing medications and ordering home medications, examining patient, discussed plan of care with care team, collaborating with physician, and documenting in chart. Future Appointments Appointment Date:04/28/2024 11:30:00 AM Scheduled Provider:LUIS ELLIOTT Location:[facility] 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:[facility] Hospital Follow-Up Appointment Date:04/28/2024 02:15:00 PM Scheduled Provider:VELMA REYNOLDS Location:[facility] 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:[facility] Hospital Follow Up Appointment Date:05/21/2024 03:00:00 PM Scheduled Provider:LUIS ELLIOTT Location:[facility] 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: OV Appointment Date:06/15/2024 03:00:00 PM Scheduled Provider:VELMA REYNOLDS Location:[facility] 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:[facility] Future Scheduled Tests Laboratory* Complete Blood Count 10/03/23 Radiology* BD Bone Density DEXA Axial Skeleton 06/19/23 [facility] 06-30-2024 Note ORIGINAL EXAMINATION: CT OF THE CERVICAL SPINE WITHOUT CONTRAST04/19/2024 11:[address] CERVICAL SPINE WITHOUT CONTRAST TECHNIQUE: CT of the cervical spine was performed without the administration of intravenous contrast. Multiplanar reformatted images are provided for review. Automated exposure control, iterative reconstruction, and/or weight based adjustment of the mA/kV was utilized to reduce the radiation dose to as low as reasonably achievable. COMPARISON: None available HISTORY: ORDERING SYSTEM PROVIDED HISTORY: Reason for Exam: fall FINDINGS: The cervical vertebral bodies are in normal alignment without acute fracture or subluxation. The vertebral body heights are maintained. There is a decrease within C4-C6 with adjacent endplate hypertrophy. The paraspinal soft tissues are within normal limits. The lung apices are clear. IMPRESSION: 1. No acute osseous injury. 2. Degenerative changes C4-C5 and C5-C6. Interpreted by: Trung Parrish MD Preliminary Report By: Trung Parrish MD Electronically signed By Trung Parrish MD Dictated Date: 04/19/2024 11:31:17 PM Prelim Date: 04/19/2024 11:32:28 PM Sign Date: 04/19/2024 11:32:28 PM Ordering Provider: [facility]06-30-2024 Note ORIGINAL EXAMINATION: CT OF THE HEAD WITHOUT CONTRAST04/19/2024 11:11 pm TECHNIQUE: CT of the head was performed without the administration of intravenous contrast. Automated exposure control, iterative reconstruction, and/or weight based adjustment of the mA/kV was utilized to reduce the radiation dose to as low as reasonably achievable. COMPARISON: CT head 01/23/2016 HISTORY: ORDERING SYSTEM PROVIDED HISTORY: No acute intracranial abnormality. Reason for Exam: head injury FINDINGS: There is no intracranial hemorrhage, mass effect or abnormal extra-axial fluid collection. There is no CT evidence for acute large territorial infarction. Patchy supratentorial white matter hypodensities consistent with moderate chronic microvascular angiopathy. Punctate focus within the inferior left putamen (image 14, series 2), not significantly changed, compatible with a remote lacunar infarct. The ventricles are unremarkable for patient age. The skull base and calvarium demonstrate no acute abnormality. Complete opacification of the left maxillary sinus. Moderate opacification of the left ethmoid sinuses. Some opacification within the left frontal ethmoidal recess. Minimal mucosal thickening of the left sphenoid sinus and to even lesser degree the right sphenoid sinus. Pneumatized pterygoid plates. Mastoid air cells are predominantly clear. IMPRESSION: No acute intracranial abnormality. Left-sided paranasal sinus disease. I have personally reviewed the images of this examination and agree with the resident's findings and interpretation. Interpreted by: Italo Fitzpatrick DO Preliminary Report By: Srikanth Doll Electronically signed By Italo Fitzpatrick DO Dictated Date: 04/19/2024 11:21:59 PM Prelim Date: 04/19/2024 11:31:35 PM Sign Date: 04/19/2024 11:38:20 PM Ordering Provider: [facility]06-30-2024 Note ORIGINAL EXAMINATION: 2 XRAY VIEW OF THE PELVIS AND 2 XRAY VIEWS LEFT HIP04/19/2024 11:10 pm COMPARISON: Hip radiograph 02/17/2024, CT hip 04/16/2024 HISTORY: ORDERING SYSTEM PROVIDED HISTORY: Reason for Exam: pain FINDINGS: No acute fracture or dislocation. The pelvic ring is intact. Sclerosis with slight cortical irregularity of the left femoral head in keeping with known avascular necrosis seen to better advantage on the recent CT. Varying degrees of multifocal degenerative change. Contrast is present within the urinary bladder. IMPRESSION: No acute fracture dislocation. Avascular necrosis of the left femoral head, seen to better advantage on the recent CT. I have personally reviewed the images of this examination and agree with the resident's findings and interpretation. Interpreted by: Italo Fitzpatrick DO Preliminary Report By: Srikanth Doll Electronically signed By Italo Fitzpatrick DO Dictated Date: 04/19/2024 11:14:42 PM Prelim Date: 04/19/2024 11:19:35 PM Sign Date: 04/19/2024 11:31:45 PM Ordering Provider: [facility]06-30-2024 Note ORIGINAL EXAMINATION: ONE XRAY VIEW OF THE CHEST04/19/2024 11:09 pm COMPARISON: Chest radiograph 12/23/2019 HISTORY: ORDERING SYSTEM PROVIDED HISTORY: Reason for Exam: chest pain FINDINGS: The cardiomediastinal silhouette is stable. Atherosclerotic calcification of the aortic knob. There is no pulmonary vascular congestion. There is no focal consolidation. No significant volume pleural effusion. No pneumothorax. IMPRESSION: No acute cardiopulmonary process. I have personally reviewed the images of this examination and agree with the resident's findings and interpretation. Interpreted by: Italo Fitzpatrick DO Preliminary Report By: Srikanth Doll Electronically signed By Italo Fitzpatrick DO Dictated Date: 04/19/2024 11:19:42 PM Prelim Date: 04/19/2024 11:20:43 PM Sign Date: 04/19/2024 11:32:35 PM Ordering Provider: [facility]06-30-2024 NoteSinus rhythm Inferior infarct, old Baseline wander in lead(s) II,III,aVR,aVF Electronic Signature: KARAN FRANCOIS DO 04/19/2024 21:30:18[facility] 06-25-2024 Hospital Discharge instructions Patient Education 04/14/2024 17:19:03 Sciatica Sciatica Sciatica is a condition that causes pain in the lower back that spreads down into the buttock, hip,and leg. Sometimes the leg pain can happen without any back pain. Sciatica happens when a spinal nerve is irritated or has pressure put on it as comes out of the spinal canal in the lower back. This most often happens when a bulge or rupture of a nearby spinal disk presses on the nerve. Sciatica can also be caused by a narrowing of the spinal canal (spinal stenosis) or spasm of the muscle in the buttocks that the sciatic nerve passes through (pyriform muscle). Sciatica is also called lumbar radiculopathy. Sciatica may begin after a sudden twisting or bending force, such as in a car accident. Or it can happen after a simple awkward movement. In either case, muscle spasm often also happens. Muscle spasmmakes the pain worse. A healthcare provider makes a diagnosis of sciatica from your symptoms and a physical exam. Unless you had an injury from a car accident or fall, you usually won t have X-rays taken at this time. This is because the nerves and disks in your back can t be seen on an X-ray. If the provider sees signsof a compressed nerve, you will need to schedule an MRI scan as an outpatient. Signs of a compressed nerve include loss of strength in a leg. Most sciatica gets better with medicine, exercise, and physical therapy. If your symptoms continue after at least 3 months of medical treatment, you may need surgery or injections to your lower back. Home care Follow these tips when caring for yourself at home: You may need to stay in bed the first few days. But as soon as possible, begin sitting up or walking. This will help you avoid problems that come from staying in bed for long periods. When in bed, try to find a position that is comfortable. A firm mattress is best. Try lying flat onyour back with pillows under your knees. You can also try lying on your side with your knees bent up toward your chest and a pillow between your knees. Avoid sitting for long periods. This puts more stress on your lower back than standing or walking. Use heat from a hot shower, hot bath, or heating pad to help ease pain. Massage can also help. You can also try using an ice pack. You can make your own ice pack by putting ice cubes in a plastic bag. Wrap the bag in a thin towel. Try both heat and cold to see which works best. Use the method that feels best for 20 minutes several times a day. You may use acetaminophen or ibuprofen to ease pain, unless another pain medicine was prescribed. Note: If you have chronic liver or kidney disease, talk with your healthcare provider before taking these medicines. Also talk with your provider if you ve had a stomach ulcer or gastrointestinal bleeding. Use safe lifting methods. Don t lift anything heavier than 15 pounds until all of the pain is gone. Follow-up care Follow up with your healthcare provider, or as advised. You may need physical therapy or additionaltests. If X-rays were taken, a radiologist will look at them. You will be told of any new findings that may affect your care. When to seek medical advice Call your healthcare provider right away if any of these occur: Pain gets worse even after taking prescribed medicine Weakness or numbness in 1 or both legs or hips Numbness in your groin or genital area You can t control your bowel or bladder Fever Redness or swelling over your back or spine [id number] [employer]. [address] [place] [address]. All rights reserved. This information is not intended as a substitute for professional medical care. Always follow yourhealthcare professional's instructions. Follow Up Care 04/14/2024 16:32:09 With:KRISTINE WRIGHT MD, Neurosurgery Address: [address] [place] [address] [place] [address] [phone] When:2-4 days only if needed [facility] Address: [address] [place] [phone] [phone] When:2-4 days [facility] 06-25-2024 Note Discharge Instructions Thank you for allowing [facility] to assist you with your healthcare needs. The following is importantdischarge information regarding your hospital visit. Diagnosis from Today's Visit Sciatic pain What to Do Next Instructions from Your Care Team No qualifying data available. Post Acute Orders No qualifying data available. You Need to Schedule the Following Appointments Follow Up with KRISTINE WRIGHT MD, Neurosurgery When:Within 2-4 days, only if needed Where:[address] [place] [address] [phone] Follow Up with LUIS ELLIOTT When:Within 2-4 days Where:[address] [facility] [place] [phone] Allergies Ultram confusion codeine nausea lisinopril Cough traMADol Unknown Medications Please ask your primary doctor or pharmacist before taking any other medication not listed, including over the counter drugs, herbal medications, vitamins and or supplements as they may interact withyour home medications. What How Much When Why Instructions Last Dose Unchanged acetaminophen (Tylenol Extra Strength 500 mg oral tablet) 2 tab(s) by mouth Four (4) times a day as needed for for pain Unchanged aspirin (aspirin 81 mg oral tablet, chewable) 1 tab(s) by mouth Every day Unchanged atorvastatin (atorvastatin 40 mg oral tablet) 1 tab(s) by mouth Daily at bedtime Unchanged calcium carbonate (calcium (as carbonate) 600 mg oral tablet) 2 tab(s) by mouth Once a day as needed for for control of stomach acid Unchanged carvedilol (carvedilol 25 mg oral tablet) 1 tab(s) by mouth Two (2) times a day Unchanged cholecalciferol (Vitamin D3 125 mcg (5000 intl units) oral capsule) 1 cap by mouth Once a day Unchanged clobetasol topical (clobetasol 0.05% topical cream) 1 application Topical Two (2) times a day Lichen sclerosus for two weeks then slowly taper down to 1-2 times per week Unchanged clopidogrel (clopidogrel 75 mg oral tablet) 1 tab(s) by mouth Once a day Unchanged cyanocobalamin (Vitamin B12 500 mcg oral tablet) 2 tab(s) by mouth Once a day B12 deficiency anemia Duration: 90 Days Unchanged DULoxetine (DULoxetine 60 mg oral delayed release capsule) 1 cap by mouth Once a day Depression Unchanged eszopiclone (eszopiclone 3 mg oral tablet) 1 tab(s) by mouth Daily at bedtime Insomnia Duration: 90 Days OARRS reviewed 02/19, february fill 02/25 Unchanged fluticasone nasal (fluticasone 50 mcg/ inh NASAL spray) 2 spray(s) each nostril Once a day Acute rhinosinusitis Bilateral serous otitis media Duration: 30 Days shake well before using Unchanged losartan (losartan 100 mg oral tablet) 0.5 tab(s) by mouth Once a day Unchanged ondansetron (ondansetron 4 mg oral tablet, disintegrating) 1 tab(s) by mouth Every 6 hours as needed for as needed for nausea/vomiting Nausea with vomiting Duration: 3 Days Unchanged polyethylene glycol 3350 (MiraLax oral powder for reconstitution) 17 gram(s) by mouth Once a day Unchanged traZODone (traZODone 50 mg oral tablet) 1 tab(s) by mouth Daily at bedtime Insomnia Unchanged verapamil (verapamil 120 mg/ 12 hours oral tablet, extended release) 1 tab(s) by mouth Once a day Please take this list to your next doctor s visit. Bring all medications you take, including over the counter medications, herbals and other supplements with you to your doctor s visit. Patients and families are reminded to discard old lists and to update any records with all medication providers or retail pharmacies. Education Materials Sciatica Sciatica is a condition that causes pain in the lower back that spreads down into the buttock, hip,and leg. Sometimes the leg pain can happen without any back pain. Sciatica happens when a spinal nerve is irritated or has pressure put on it as comes out of the spinal canal in the lower back. This most often happens when a bulge or rupture of a nearby spinal disk presses on the nerve. Sciatica can also be caused by a narrowing of the spinal canal (spinal stenosis) or spasm of the muscle in the buttocks that the sciatic nerve passes through (pyriform muscle). Sciatica is also called lumbar radiculopathy. Sciatica may begin after a sudden twisting or bending force, such as in a car accident. Or it can happen after a simple awkward movement. In either case, muscle spasm often also happens. Muscle spasmmakes the pain worse. A healthcare provider makes a diagnosis of sciatica from your symptoms and a physical exam. Unless you had an injury from a car accident or fall, you usually won t have X-rays taken at this time. This is because the nerves and disks in your back can t be seen on an X-ray. If the provider sees signsof a compressed nerve, you will need to schedule an MRI scan as an outpatient. Signs of a compressed nerve include loss of strength in a leg. Most sciatica gets better with medicine, exercise, and physical therapy. If your symptoms continue after at least 3 months of medical treatment, you may need surgery or injections to your lower back. Home care Follow these tips when caring for yourself at home: You may need to stay in bed the first few days. But as soon as possible, begin sitting up or walking. This will help you avoid problems that come from staying in bed for long periods. When in bed, try to find a position that is comfortable. A firm mattress is best. Try lying flat onyour back with pillows under your knees. You can also try lying on your side with your knees bent up toward your chest and a pillow between your knees. Avoid sitting for long periods. This puts more stress on your lower back than standing or walking. Use heat from a hot shower, hot bath, or heating pad to help ease pain. Massage can also help. You can also try using an ice pack. You can make your own ice pack by putting ice cubes in a plastic bag. Wrap the bag in a thin towel. Try both heat and cold to see which works best. Use the method that feels best for 20 minutes several times a day. You may use acetaminophen or ibuprofen to ease pain, unless another pain medicine was prescribed. Note: If you have chronic liver or kidney disease, talk with your healthcare provider before taking these medicines. Also talk with your provider if you ve had a stomach ulcer or gastrointestinal bleeding. Use safe lifting methods. Don t lift anything heavier than 15 pounds until all of the pain is gone. Follow-up care Follow up with your healthcare provider, or as advised. You may need physical therapy or additionaltests. If X-rays were taken, a radiologist will look at them. You will be told of any new findings that may affect your care. When to seek medical advice Call your healthcare provider right away if any of these occur: Pain gets worse even after taking prescribed medicine Weakness or numbness in 1 or both legs or hips Numbness in your groin or genital area You can t control your bowel or bladder Fever Redness or swelling over your back or spine [id number] [employer]. [address] [place] [address], [place] [address]. All rights reserved. This information is not intended as a substitute for professional medical care. Always follow yourhealthcare professional's instructions. Additional Information VACCINATE! IT SAVES LIVES! Members of the community who have not yet received the COVID-19 vaccine and would like to receive it can visit one of [facility] vaccine clinics. There are many vaccine clinic locations within the [facility]. For locations and available times, please visit [email or web address]/. It is important to note that some COVID mobile vaccine clinics are held outdoors and may be canceled in rainy or stormy conditions. To learn more about pediatric vaccinations (ages 5-11), we invite you to visit the [facility] webpage. [email or web address] learn more about the COVID-19 vaccine, we invite you to visit the CDC website for a list of frequently asked questions. https://www.cdc.gov/coronavirus/2019-ncov/vaccines/faq.html [email or web address] Patient Portal Access Instructions: Stay connected with your healthcare team and access your personal medical information anytime with the [email or web address] Patient Portal. If you would like a full copy of your medical records please contact the [facility] Medical Records Department Saturday through Saturday between 8a.m. and 4:30p.m. Please follow the directions below to access the portal: 1.Access the email account you provided upon registration to the hospital.2.Look for an invitation email from [facility].3.Open the email and access the invitation link: Accept Invitation to [email or web address].Fill in the required del real to create your account. Sign into www.[email or web address] with your username and password that you created in the above steps to stay up to date. You can then view a summary of results, a summary of your visits, and the ability to download your summaries to your computer or send the information securely to a physician. Remember that your healthcare information is confidential, so carefully consider who you will allow to register on the [email or web address] Patient Portal for access to your information. You can also access the [employer] Patient Portal on the [employer]. Simply click on Health Records under [employer] and then click on the [employer] logo. HOW TO SAFELY DISPOSE OF PRESCRIPTION MEDICATIONS Please use one of the following methods to safely dispose of your unused medications. 1.Use a drug disposal kit: the drug disposal pouch allows you to safely discard your old and unuseddrugs. Ask your nurse to give you one when you are discharged.2.Visit a local take-back location: Many local pharmacies and police departments have programs that collect old and unwanted prescriptiondrugs. Call your local pharmacy or go to http://[email or web address].[employer]/4P4Vj8l to find one close to you.3.Make use of household items: Use cat litter or old coffee grounds to dispose medications if other options arenot available. Mix your drugs with these household products, seal them in an airtight container andthrow it into the garbage. Call [facility]: [phone] to be sure your drugs can be disposed of in this way. Some medicines may require a different approach.4.Never flush your medications down the toilet. IF YOU HAVE BEEN PRESCRIBED AN OPIOIDS FOR PAIN If you have been prescribed an opioid (such as hydrocodone, oxycodone or morphine), it is critical to understand the possible side effects and risks of opioid pain medications. Even when taken as directed, opioids can have several side effects including: Tolerance, meaning you might need to take more of a medication for the same pain relief. Nausea, vomiting and/or constipation. Sleepiness, dizziness, dry mouth, confusion, depression or itching. Physical dependence, meaning you have withdrawal symptoms when a medication is stopped ? this can develop within a few days. KNOW YOUR RESPONSIBILITIES It is important to know exactly how much and how often to take the opioid pain medications you are prescribed. Never take opioids in higher amounts or more often than prescribed. Do not combine opioids with alcohol or other drugs that cause drowsiness, such as benzodiazepines, also known as benzos,including diazepam and alprazolam, muscle relaxants or sleep aids. Never sell or share prescriptionopioids. This is illegal. Store opioids in a secure place and out of reach of others (including children, family, friends and visitors). The last page(s) of this document has been signed and retained as a CHART COPY Signatures Patient Education Materials Sciatica Medication Leaflets My discharge plan and instructions have been reviewed and explained to me and IAMANDA MARGARET J understand my current condition and have read and understand these discharge instructions. I have received a written copy of the plan/instructions. If I have questions, I am aware that I should contactmy doctor. Patient/Settlement Clerk Signature: Date/Time: Relationship to Patient: Witness Name/Signature: Date/Time: [facility]05-14-2024 Hospital Discharge instructions Patient Education 03/03/2024 17:42:11 Laceration, Hand: All Closures Hand Laceration: All Closures A laceration is a cut through the skin. Deep cuts usually require stitches. Minor cuts may be closed with surgical tape or skin adhesive. X-rays may be done if something may have entered the skin through the cut, such as broken glass. You may also be given a tetanus shot if you are not up to date on this vaccination and the object thatcut you may carry tetanus. Home care Your healthcare provider may prescribe an antibiotic. This is to help prevent infection. Follow allinstructions for taking this medicine. Take the medicine every day until it is gone or you are toldto stop. You should not have any left over. The healthcare provider may prescribe medicines for pain. Follow instructions for taking them. Follow the healthcare provider s instructions on how to care for the cut. Keep the wound clean and dry. Don't get the wound wet until you are told it is OK to do so. If the bandage gets wet, remove it. Gently pat the wound dry with a clean cloth. Then put on a clean, dry bandage. To help prevent infection, wash your hands with soap and water before and after caring for the wound. Caring for stiches: Once you no longer need to keep the stitches dry, clean the wound daily. First,remove the bandage. Then wash the area gently with soap and warm water, or as directed by the healthcare provider. Use a wet cotton swab to loosen and remove any blood or crust that forms. After cleaning, apply a thin layer of antibiotic ointment if advised. Then put on a new bandage unless you aretold not to. Caring for skin glue: Don t put apply liquid, ointment, or cream on the wound while the glue is in place. Avoid activities that cause heavy sweating. Protect the wound from sunlight. Don't scratch, rub, or pick at the adhesive film. Don't place tape directly over the film. The glue should peel off within 5 to 10 days. Caring for surgical tape: Keep the area dry. If it gets wet, blot it dry with a clean towel. Surgical tape usually falls off within 7 to 10 days. If it has not fallen off after 10 days, you can take it off yourself. Put mineral oil or petroleum jelly on a cotton ball and gently rub the tape until it is removed. Once you can get the wound wet, you may shower as usual, but don't soak the wound in water. This means no tub baths or swimming. Even with proper treatment, a wound infection may sometimes occur. Check the wound daily for signs of infection listed below. Follow-up care Follow up with your healthcare provider, or as advised. If you have stitches, be sure to return as directed to have them removed. When to seek medical advice Call your healthcare provider right away if any of these occur: Wound bleeding not controlled by direct pressure Signs of infection, including increasing pain in the wound, increasing wound redness or swelling, or pus or bad odor coming from the wound Fever of 100.4 F (38. C) o higher, or as directed by your healthcare provider Stitches come apart or fall out or surgical tape falls off before 7 days Wound edges reopen Wound changes colors Numbness or weakness in the affected hand Decreased movement of the hand [id number] [employer]. [address] [place] [address], [place] [address]. All rights reserved. This information is not intended as a substitute for professional medical care. Always follow yourhealthcare professional's instructions. Follow Up Care 03/03/2024 15:47:45 With:Go to emergency room if symptoms worsen Address:Unknown When:2-4 days With:LUIS ELLIOTT APRN-[facility] Address: [address] [place], [place] [address], [place] [address]- [phone] When:5 to 7 days [facility] 05-14-2024 Note Discharge Instructions Thank you for allowing [facility] to assist you with your healthcare needs. The following is importantdischarge information regarding your hospital visit. Diagnosis from Today's Visit Hand laceration Hand laceration repair What to Do Next Instructions from Your Care Team please follow up for suture removal in 5-7 days. No qualifying data available. Post Acute Orders No qualifying data available. You Need to Schedule the Following Appointments Follow Up with Go to emergency room if symptoms worsen When Within 2-4 days Follow Up with LUIS ELLIOTT When Within 5 to 7 days Where: [address] [place] [address]- [phone] Allergies Ultram (confusion) codeine (nausea) lisinopril (Cough) traMADol (Unknown) Immunizations This Visit Given Vaccine Datetetanus/diphth/pertuss (Tdap) adult/adol 03/03/2024 Medications Please ask your primary doctor or pharmacist before taking any other medication not listed, including over the counter drugs, herbal medications, vitamins and or supplements as they may interact withyour home medications. What How Much When Why Instructions Last Dose Unchanged acetaminophen (Tylenol Extra Strength 500 mg oral tablet) 2 tab(s) by mouth Four (4) times a day as needed for for pain Unchanged aspirin (aspirin 81 mg oral tablet, chewable) 1 tab(s) by mouth Every day Unchanged atorvastatin (atorvastatin 40 mg oral tablet) 1 tab(s) by mouth Daily at bedtime Unchanged benzonatate (benzonatate 100 mg oral capsule) See instructions Cough Take 1-2 caps by mouth q8h as needed for cough. do not crush or chew Unchanged calcium carbonate (calcium (as carbonate) 600 mg oral tablet) 2 tab(s) by mouth Once a day as needed for for control of stomach acid Unchanged carvedilol (carvedilol 25 mg oral tablet) 1 tab(s) by mouth Two (2) times a day Unchanged cholecalciferol (Vitamin D3 125 mcg (5000 intl units) oral capsule) 1 cap by mouth Once a day Unchanged clobetasol topical (clobetasol 0.05% topical cream) 1 application Topical Two (2) times a day Lichen sclerosus for two weeks then slowly taper down to 1-2 times per week Unchanged clopidogrel (clopidogrel 75 mg oral tablet) 1 tab(s) by mouth Once a day Unchanged cyanocobalamin (Vitamin B12 500 mcg oral tablet) 2 tab(s) by mouth Once a day B12 deficiency anemia Duration: 90 Days Unchanged DULoxetine (DULoxetine 60 mg oral delayed release capsule) 1 cap by mouth Once a day Depression Unchanged eszopiclone (eszopiclone 3 mg oral tablet) 1 tab(s) by mouth Daily at bedtime Insomnia Duration: 90 Days OARRS reviewed 02/19, february fill 02/25 Unchanged fluticasone nasal (fluticasone 50 mcg/ inh NASAL spray) 2 spray(s) each nostril Once a day Acute rhinosinusitis Bilateral serous otitis media Duration: 30 Days shake well before using Unchanged guaiFENesin (guaiFENesin 600 mg oral tablet, extended release) 1 tab(s) by mouth Every 12 hours Acute rhinosinusitis Cough Duration: 10 Days Unchanged losartan (losartan 100 mg oral tablet) 0.5 tab(s) by mouth Once a day Unchanged ondansetron (ondansetron 4 mg oral tablet, disintegrating) 1 tab(s) by mouth Every 6 hours as needed for as needed for nausea/vomiting Nausea with vomiting Duration: 3 Days Unchanged polyethylene glycol 3350 (MiraLax oral powder for reconstitution) 17 gram(s) by mouth Once a day Unchanged traZODone (traZODone 50 mg oral tablet) 1 tab(s) by mouth Daily at bedtime Insomnia Unchanged verapamil (verapamil 120 mg/ 12 hours oral tablet, extended release) 1 tab(s) by mouth Once a day Please take this list to your next doctor s visit. Bring all medications you take, including over the counter medications, herbals and other supplements with you to your doctor s visit. Patients and families are reminded to discard old lists and to update any records with all medication providers or retail pharmacies. Education Materials Hand Laceration: All Closures A laceration is a cut through the skin. Deep cuts usually require stitches. Minor cuts may be closed with surgical tape or skin adhesive. X-rays may be done if something may have entered the skin through the cut, such as broken glass. You may also be given a tetanus shot if you are not up to date on this vaccination and the object thatcut you may carry tetanus. Home care Your healthcare provider may prescribe an antibiotic. This is to help prevent infection. Follow allinstructions for taking this medicine. Take the medicine every day until it is gone or you are toldto stop. You should not have any left over. The healthcare provider may prescribe medicines for pain. Follow instructions for taking them. Follow the healthcare provider s instructions on how to care for the cut. Keep the wound clean and dry. Don't get the wound wet until you are told it is OK to do so. If the bandage gets wet, remove it. Gently pat the wound dry with a clean cloth. Then put on a clean, dry bandage. To help prevent infection, wash your hands with soap and water before and after caring for the wound. Caring for stiches: Once you no longer need to keep the stitches dry, clean the wound daily. First,remove the bandage. Then wash the area gently with soap and warm water, or as directed by the healthcare provider. Use a wet cotton swab to loosen and remove any blood or crust that forms. After cleaning, apply a thin layer of antibiotic ointment if advised. Then put on a new bandage unless you aretold not to. Caring for skin glue: Don t put apply liquid, ointment, or cream on the wound while the glue is in place. Avoid activities that cause heavy sweating. Protect the wound from sunlight. Don't scratch, rub, or pick at the adhesive film. Don't place tape directly over the film. The glue should peel off within 5 to 10 days. Caring for surgical tape: Keep the area dry. If it gets wet, blot it dry with a clean towel. Surgical tape usually falls off within 7 to 10 days. If it has not fallen off after 10 days, you can take it off yourself. Put mineral oil or petroleum jelly on a cotton ball and gently rub the tape until it is removed. Once you can get the wound wet, you may shower as usual, but don't soak the wound in water. This means no tub baths or swimming. Even with proper treatment, a wound infection may sometimes occur. Check the wound daily for signs of infection listed below. Follow-up care Follow up with your healthcare provider, or as advised. If you have stitches, be sure to return as directed to have them removed. When to seek medical advice Call your healthcare provider right away if any of these occur: Wound bleeding not controlled by direct pressure Signs of infection, including increasing pain in the wound, increasing wound redness or swelling, or pus or bad odor coming from the wound Fever of 100.4 F (38. C) o higher, or as directed by your healthcare provider Stitches come apart or fall out or surgical tape falls off before 7 days Wound edges reopen Wound changes colors Numbness or weakness in the affected hand Decreased movement of the hand 5624-0236 [employer]. [address] [place] [address], [place] [address]. All rights reserved. This information is not intended as a substitute for professional medical care. Always follow yourhealthcare professional's instructions. Additional Information VACCINATE! IT SAVES LIVES! Members of the community who have not yet received the COVID-19 vaccine and would like to receive it can visit one of [facility] vaccine clinics. There are many vaccine clinic locations within the [facility]. For locations and available times, please visit [email or web address] It is important to note that some COVID mobile vaccine clinics are held outdoors and may be canceled in rainy or stormy conditions. To learn more about pediatric vaccinations (ages 5-11), we invite you to visit the [facility] webpage. [email or web address]/pages/[email or web address]-[email or web address] [email or web address].htmlTo learn more about the COVID-19 vaccine, we invite you to visit the CDC website for a list of frequently asked questions. https://www.cdc.gov/coronavirus/2019-ncov/vaccines/faq.html [facility] [facility] Patient Portal Access Instructions: Stay connected with your healthcare team and access your personal medical information anytime with the [facility] Patient Portal. If you would like a full copy of your medical records please contact the [facility] Medical Records Department Saturday through Saturday between 8a.m. and 4:30p.m. Please follow the directions below to access the portal: 1.Access the email account you provided upon registration to the [facility].2.Look for an invitation email from [facility].3.Open the email and access the invitation link: Accept Invitation to [email or web address].Fill in the required del real to create your account. Sign into [email or web address] with your username and password that you created in the above steps to stay up to date. You can then view a summary of results, a summary of your visits, and the ability to download your summaries to your computer or send the information securely to a physician. Remember that your healthcare information is confidential, so carefully consider who you will allow to register on the [facility] Patient Portal for access to your information. You can also access the [email or web address] Patient Portal on the [employer]. Simply click on Health Records under [employer] and then click on the [facility] logo. HOW TO SAFELY DISPOSE OF PRESCRIPTION MEDICATIONS Please use one of the following methods to safely dispose of your unused medications. 1.Use a drug disposal kit: the drug disposal pouch allows you to safely discard your old and unuseddrugs. Ask your nurse to give you one when you are discharged.2.Visit a local take-back location: Many local pharmacies and police departments have programs that collect old and unwanted prescriptiondrugs. Call your local pharmacy or go to http://Activism.com.Realtime Games/6N2Hz1v to find one close to you.3.Make use of household items: Use cat litter or old coffee grounds to dispose medications if other options arenot available. Mix your drugs with these household products, seal them in an airtight container andthrow it into the garbage. Call [facility]: [phone] to be sure your drugs can be disposed of in this way. Some medicines may require a different approach.4.Never flush your medications down the toilet. IF YOU HAVE BEEN PRESCRIBED AN OPIOIDS FOR PAIN If you have been prescribed an opioid (such as hydrocodone, oxycodone or morphine), it is critical to understand the possible side effects and risks of opioid pain medications. Even when taken as directed, opioids can have several side effects including: Tolerance, meaning you might need to take more of a medication for the same pain relief. Nausea, vomiting and/or constipation. Sleepiness, dizziness, dry mouth, confusion, depression or itching. Physical dependence, meaning you have withdrawal symptoms when a medication is stopped ? this can develop within a few days. KNOW YOUR RESPONSIBILITIES It is important to know exactly how much and how often to take the opioid pain medications you are prescribed. Never take opioids in higher amounts or more often than prescribed. Do not combine opioids with alcohol or other drugs that cause drowsiness, such as benzodiazepines, also known as benzos,including diazepam and alprazolam, muscle relaxants or sleep aids. Never sell or share prescriptionopioids. This is illegal. Store opioids in a secure place and out of reach of others (including children, family, friends and visitors). The last page(s) of this document has been signed and retained as a CHART COPY Signatures Patient Education Materials Sharron Munguia: All Closures Medication Leaflets My discharge plan and instructions have been reviewed and explained to me and IAMANDA MARGARET J understand my current condition and have read and understand these discharge instructions. I have received a written copy of the plan/instructions. If I have questions, I am aware that I should contactmy doctor. Patient/Settlement Clerk Signature: Date/Time: Relationship to Patient: Witness Name/Signature: Date/Time: [facility]05-14-2024 Note Discharge Instructions Thank you for allowing [facility] to assist you with your healthcare needs. The following is importantdischarge information regarding your hospital visit. Diagnosis from Today's Visit Hand laceration Hand laceration repair What to Do Next Instructions from Your Care Team No qualifying data available. Post Acute Orders No qualifying data available. You Need to Schedule the Following Appointments Follow Up with Go to emergency room if symptoms worsen When Within 2-4 days Follow Up with LUIS LELIOTT When Within 5 to 7 days Where: [address] [facility] [place] [address] [phone] Allergies Ultram (confusion) codeine (nausea) lisinopril (Cough) traMADol (Unknown) Immunizations This Visit Given Vaccine Datetetanus/diphth/pertuss (Tdap) adult/adol 03/03/2024 Medications Please ask your primary doctor or pharmacist before taking any other medication not listed, including over the counter drugs, herbal medications, vitamins and or supplements as they may interact withyour home medications. What How Much When Why Instructions Last Dose Unchanged acetaminophen (Tylenol Extra Strength 500 mg oral tablet) 2 tab(s) by mouth Four (4) times a day as needed for for pain Unchanged aspirin (aspirin 81 mg oral tablet, chewable) 1 tab(s) by mouth Every day Unchanged atorvastatin (atorvastatin 40 mg oral tablet) 1 tab(s) by mouth Daily at bedtime Unchanged benzonatate (benzonatate 100 mg oral capsule) See instructions Cough Take 1-2 caps by mouth q8h as needed for cough. do not crush or chew Unchanged calcium carbonate (calcium (as carbonate) 600 mg oral tablet) 2 tab(s) by mouth Once a day as needed for for control of stomach acid Unchanged carvedilol (carvedilol 25 mg oral tablet) 1 tab(s) by mouth Two (2) times a day Unchanged cholecalciferol (Vitamin D3 125 mcg (5000 intl units) oral capsule) 1 cap by mouth Once a day Unchanged clobetasol topical (clobetasol 0.05% topical cream) 1 application Topical Two (2) times a day Lichen sclerosus for two weeks then slowly taper down to 1-2 times per week Unchanged clopidogrel (clopidogrel 75 mg oral tablet) 1 tab(s) by mouth Once a day Unchanged cyanocobalamin (Vitamin B12 500 mcg oral tablet) 2 tab(s) by mouth Once a day B12 deficiency anemia Duration: 90 Days Unchanged DULoxetine (DULoxetine 60 mg oral delayed release capsule) 1 cap by mouth Once a day Depression Unchanged eszopiclone (eszopiclone 3 mg oral tablet) 1 tab(s) by mouth Daily at bedtime Insomnia Duration: 90 Days OARRS reviewed 02/19, may fill 02/25 Unchanged fluticasone nasal (fluticasone 50 mcg/ inh NASAL spray) 2 spray(s) each nostril Once a day Acute rhinosinusitis Bilateral serous otitis media Duration: 30 Days shake well before using Unchanged guaiFENesin (guaiFENesin 600 mg oral tablet, extended release) 1 tab(s) by mouth Every 12 hours Acute rhinosinusitis Cough Duration: 10 Days Unchanged losartan (losartan 100 mg oral tablet) 0.5 tab(s) by mouth Once a day Unchanged ondansetron (ondansetron 4 mg oral tablet, disintegrating) 1 tab(s) by mouth Every 6 hours as needed for as needed for nausea/vomiting Nausea with vomiting Duration: 3 Days Unchanged polyethylene glycol 3350 (MiraLax oral powder for reconstitution) 17 gram(s) by mouth Once a day Unchanged traZODone (traZODone 50 mg oral tablet) 1 tab(s) by mouth Daily at bedtime Insomnia Unchanged verapamil (verapamil 120 mg/ 12 hours oral tablet, extended release) 1 tab(s) by mouth Once a day Please take this list to your next doctor s visit. Bring all medications you take, including over the counter medications, herbals and other supplements with you to your doctor s visit. Patients and families are reminded to discard old lists and to update any records with all medication providers or retail pharmacies. Education Materials Hand Laceration: All Closures A laceration is a cut through the skin. Deep cuts usually require stitches. Minor cuts may be closed with surgical tape or skin adhesive. X-rays may be done if something may have entered the skin through the cut, such as broken glass. You may also be given a tetanus shot if you are not up to date on this vaccination and the object thatcut you may carry tetanus. Home care Your healthcare provider may prescribe an antibiotic. This is to help prevent infection. Follow allinstructions for taking this medicine. Take the medicine every day until it is gone or you are toldto stop. You should not have any left over. The healthcare provider may prescribe medicines for pain. Follow instructions for taking them. Follow the healthcare provider s instructions on how to care for the cut. Keep the wound clean and dry. Don't get the wound wet until you are told it is OK to do so. If the bandage gets wet, remove it. Gently pat the wound dry with a clean cloth. Then put on a clean, dry bandage. To help prevent infection, wash your hands with soap and water before and after caring for the wound. Caring for stiches: Once you no longer need to keep the stitches dry, clean the wound daily. First,remove the bandage. Then wash the area gently with soap and warm water, or as directed by the healthcare provider. Use a wet cotton swab to loosen and remove any blood or crust that forms. After cleaning, apply a thin layer of antibiotic ointment if advised. Then put on a new bandage unless you aretold not to. Caring for skin glue: Don t put apply liquid, ointment, or cream on the wound while the glue is in place. Avoid activities that cause heavy sweating. Protect the wound from sunlight. Don't scratch, rub, or pick at the adhesive film. Don't place tape directly over the film. The glue should peel off within 5 to 10 days. Caring for surgical tape: Keep the area dry. If it gets wet, blot it dry with a clean towel. Surgical tape usually falls off within 7 to 10 days. If it has not fallen off after 10 days, you can take it off yourself. Put mineral oil or petroleum jelly on a cotton ball and gently rub the tape until it is removed. Once you can get the wound wet, you may shower as usual, but don't soak the wound in water. This means no tub baths or swimming. Even with proper treatment, a wound infection may sometimes occur. Check the wound daily for signs of infection listed below. Follow-up care Follow up with your healthcare provider, or as advised. If you have stitches, be sure to return as directed to have them removed. When to seek medical advice Call your healthcare provider right away if any of these occur: Wound bleeding not controlled by direct pressure Signs of infection, including increasing pain in the wound, increasing wound redness or swelling, or pus or bad odor coming from the wound Fever of 100.4 F (38. C) o higher, or as directed by your healthcare provider Stitches come apart or fall out or surgical tape falls off before 7 days Wound edges reopen Wound changes colors Numbness or weakness in the affected hand Decreased movement of the hand [id number] [employer]. [address] [place] [address], [place] [address]. All rights reserved. This information is not intended as a substitute for professional medical care. Always follow yourhealthcare professional's instructions. Additional Information VACCINATE! IT SAVES LIVES! Members of the community who have not yet received the COVID-19 vaccine and would like to receive it can visit one of [facility] vaccine clinics. There are many vaccine clinic locations within the [facility]. For locations and available times, please visit www.[email or web address]/. It is important to note that some COVID mobile vaccine clinics are held outdoors and may be canceled in rainy or stormy conditions. To learn more about pediatric vaccinations (ages 5-11), we invite you to visit the [facility] webpage. https://[email or web address]/pages/[email or web address] [email or web address] learn more about the COVID-19 vaccine, we invite you to visit the CDC website for a list of frequently asked questions. https://www.cdc.gov/coronavirus/2019-ncov/vaccines/faq.html [facility] Patient Portal Access Instructions: Stay connected with your healthcare team and access your personal medical information anytime with the [email or web address] Patient Portal. If you would like a full copy of your medical records please contact the [facility] Medical Records Department Saturday through Saturday between 8a.m. and 4:30p.m. Please follow the directions below to access the portal: 1.Access the email account you provided upon registration to the hospital.2.Look for an invitation email from [facility].3.Open the email and access the invitation link: Accept Invitation to [facility]4.Fill in the required del real to create your account. Sign into [email or web address] with your username and password that you created in the above steps to stay up to date. You can then view a summary of results, a summary of your visits, and the ability to download your summaries to your computer or send the information securely to a physician. Remember that your healthcare information is confidential, so carefully consider who you will allow to register on the [facility] Patient Portal for access to your information. You can also access the [facility] Patient Portal on the [employer]. Simply click on Health Records under [employer] and then click on the [employer] logo. HOW TO SAFELY DISPOSE OF PRESCRIPTION MEDICATIONS Please use one of the following methods to safely dispose of your unused medications. 1.Use a drug disposal kit: the drug disposal pouch allows you to safely discard your old and unuseddrugs. Ask your nurse to give you one when you are discharged.2.Visit a local take-back location: Many local pharmacies and police departments have programs that collect old and unwanted prescriptiondrugs. Call your local pharmacy or go to http://Activism.com.Realtime Games/4M4Kr0f to find one close to you.3.Make use of household items: Use cat litter or old coffee grounds to dispose medications if other options arenot available. Mix your drugs with these household products, seal them in an airtight container andthrow it into the garbage. Call [facility]: [phone] to be sure your drugs can be disposed of in this way. Some medicines may require a different approach.4.Never flush your medications down the toilet. IF YOU HAVE BEEN PRESCRIBED AN OPIOIDS FOR PAIN If you have been prescribed an opioid (such as hydrocodone, oxycodone or morphine), it is critical to understand the possible side effects and risks of opioid pain medications. Even when taken as directed, opioids can have several side effects including: Tolerance, meaning you might need to take more of a medication for the same pain relief. Nausea, vomiting and/or constipation. Sleepiness, dizziness, dry mouth, confusion, depression or itching. Physical dependence, meaning you have withdrawal symptoms when a medication is stopped ? this can develop within a few days. KNOW YOUR RESPONSIBILITIES It is important to know exactly how much and how often to take the opioid pain medications you are prescribed. Never take opioids in higher amounts or more often than prescribed. Do not combine opioids with alcohol or other drugs that cause drowsiness, such as benzodiazepines, also known as benzos,including diazepam and alprazolam, muscle relaxants or sleep aids. Never sell or share prescriptionopioids. This is illegal. Store opioids in a secure place and out of reach of others (including children, family, friends and visitors). The last page(s) of this document has been signed and retained as a CHART COPY Signatures Patient Education Materials Sharron Munguia: All Closures Medication Leaflets My discharge plan and instructions have been reviewed and explained to me and I,SHORT, HERB Santana understand my current condition and have read and understand these discharge instructions. I have received a written copy of the plan/instructions. If I have questions, I am aware that I should contactmy doctor. Patient/Settlement Clerk Signature: Date/Time: Relationship to Patient: Witness Name/Signature: Date/Time: [facility]05-14-2024 Note ORIGINAL EXAMINATION: THREE XRAY VIEWS OF THE LEFT HAND 03/03/2024 4:21 pm COMPARISON: None. HISTORY: ORDERING SYSTEM PROVIDED HISTORY: Reason for Exam: pain FINDINGS: There is no evidence of acute fracture. There is normal alignment. No acute joint abnormality. No focal osseous lesion. No focal soft tissue abnormality. IMPRESSION: No acute osseous abnormality. Interpreted by: Michael Singh Preliminary Report By: Michael Singh Electronically signed By Michael Singh Dictated Date: 03/03/2024 4:30:57 PM Prelim Date: 03/03/2024 4:32:59 PM Sign Date: 03/03/2024 4:32:59 PM Ordering Provider: [facility]08-30-2023 Note ORIGINAL EXAMINATION: BONE DENSITOMETRY 2023 3:18 pm TECHNIQUE: A bone density dual x-ray absorptiometry (DEXA) scan was performed of the lumbar spine and left hip. COMPARISON: 05/01/2021. HISTORY: ORDERING SYSTEM PROVIDED HISTORY: Reason for Exam: Osteoporosis Screening FINDINGS: T Score Left Femoral Neck: -1.4 Left Femoral Neck: 0.775 (g/cm2) T Score Left Hip: -2.2 Left Hip: 0.607 (g/cm2) T Score Lumbar Spine: -1.7 Lumbar Spine: 0.857 (g/cmd2) BMD change from previous hip:-1.7% BMD change from previous lumbar Spine: 3% FRAX: 10 year fracture risk assessment Major osteoporotic fracture: 20% Hip fracture: 4% IMPRESSION: Osteopenia by WHO criteria. *By the World Health Organization criteria: (Comparing with young normal sex matched population) - Normal: T-score at or above -1 SD (standard deviation) - Osteopenia: T-score between -1 and -2.5 SD - Osteoporosis: T-score at or below -2.5 SD Interpreted by: Trung Maldonado DO Preliminary Report By: Trung Maldonado DO Electronically signed By Trung Maldonado DO Dictated Date: 2023 3:44:16 PM Prelim Date: 2023 3:45:59 PM Sign Date: 2023 3:45:59 PM Ordering Provider: LUIS [facility]10-25-2022 Note ORIGINAL NM MYOCARDIAL SPECT STRESS/REST CLINICAL STATEMENT: CP, CAD TECHNIQUE: Lexiscan dose:0.4 mg Radiopharmaceutical (stress): Tc-99m Sestamibi Dose:32.9 mCi Radiopharmaceutical (rest): Tc-99m Sestamibi Dose:10.5 mCi SPECT acquisition and processing Reconstruction and reorientation of SPECT images into short axis, vertical and horizontal long axisplanes Quantitative LVEF assessment COMPARISON:11/23/2019 REPORT:SPECT perfusion images demonstrate small partially reversible defect in the distal lateral segment. No evidence of transit ischemic dilatation. Gated SPECT images demonstrate normal wall motion and wall thickening. End-diastolic volume is 54 mL. Ejection fraction is 75%. IMPRESSION: 1. Possible small area of mild ischemia involving distal lateral segment versus shifting breast attenuation artifact. 2. Normal systolic function with ejection fraction greater than 70%. 3. Prior study in 2019 had similar but less reversible defect in the apical lateral segment suggesting this is likely artifactual. Interpreted By: Nikkie Linares MD Preliminary Report By: Nikkie Linares MD Electronically Signed By: Nikkie Linares MD Dictated Date: 08/14/2022 4:21:41 PM Prelim Date: 08/14/2022 4:21:41 PM Sign Date: 08/14/2022 4:22:45 PM Ordering Provider:Velma [facility]10-25-2022 Note ORIGINAL NM MYOCARDIAL SPECT STRESS/REST CLINICAL STATEMENT: CP, CAD TECHNIQUE: Lexiscan dose:0.4 mg Radiopharmaceutical (stress): Tc-99m Sestamibi Dose:32.9 mCi Radiopharmaceutical (rest): Tc-99m Sestamibi Dose:10.5 mCi SPECT acquisition and processing Reconstruction and reorientation of SPECT images into short axis, vertical and horizontal long axisplanes Quantitative LVEF assessment COMPARISON:11/23/2019 REPORT:SPECT perfusion images demonstrate small partially reversible defect in the distal lateral segment. No evidence of transit ischemic dilatation. Gated SPECT images demonstrate normal wall motion and wall thickening. End-diastolic volume is 54 mL. Ejection fraction is 75%. IMPRESSION: 1. Possible small area of mild ischemia involving distal lateral segment versus shifting breast attenuation artifact. 2. Normal systolic function with ejection fraction greater than 70%. 3. Prior study in 2019 had similar but less reversible defect in the apical lateral segment suggesting this is likely artifactual. Interpreted By: Nikkie Linares MD Preliminary Report By: Nikkie Linares MD Electronically Signed By: Nikkie Linares MD Dictated Date: 08/14/2022 4:21:41 PM Prelim Date: 08/14/2022 4:21:41 PM Sign Date: 08/14/2022 4:22:45 PM Ordering Provider:[facility] Hospital Discharge instructions Patient Education 05/29/2022 08:53:26 2-OPD Minor Surgery (Steri-Strips) (08/2018) (CUSTOM) Minor Surgery Discharge Instructions __X__ Keep the incision clean and dry until tomorrow and then you may shower. Leave the steri strips on until your follow-up appointment or until the edges begin to curl. No soaking the incision sitein a bathtub or hot tub until the follow-up appointment. __X__ The incision can be left open to air starting tomorrow. If clothing irritates the site, then a dressing may be applied and changed daily. __X__ Gently cleanse the incision site with soap and water daily and pat dry. __X__ Report any fever, redness or severe pain of the operative area to your doctor promptly. __X__Over the counter Tylenol or ibuprofen may be used for incision site pain. Follow the package instructions. __X__ Make your follow-up appointment as instructed If you have any questions, please call your doctor at the number listed on your follow-up instructions. Follow all instructions given to you by your doctor. Follow Up Care 05/17/2022 09:54:02 With:APRIL PABON JR, MD, Surgery Address: [address] [place] [phone] When: Unknown [facility] 08-09-2022 Summary of episode note Discharge Instructions Thank you for allowing [facility] to assist you with your healthcare needs. The following is importantdischarge information regarding your hospital visit. Your Care Team LUIS ELLIOTT What to do next Scheduled Follow-Up Appointments 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 When With Where Contact InformationPC OV Follow Up 07/31/2022 10:00 AM LUIS COBOS [address] [id number] Follow Up Appointments Follow Up with ARPIL PABON JR, MD, Surgery When Where: [address] [place] [phone] Education Materials Minor Surgery Discharge Instructions __X__ Keep the incision clean and dry until tomorrow and then you may shower. Leave the steri strips on until your follow-up appointment or until the edges begin to curl. No soaking the incision sitein a bathtub or hot tub until the follow-up appointment. __X__ The incision can be left open to air starting tomorrow. If clothing irritates the site, then a dressing may be applied and changed daily. __X__ Gently cleanse the incision site with soap and water daily and pat dry. __X__ Report any fever, redness or severe pain of the operative area to your doctor promptly. __X__Over the counter Tylenol or ibuprofen may be used for incision site pain. Follow the package instructions. __X__ Make your follow-up appointment as instructed If you have any questions, please call your doctor at the number listed on your follow-up instructions. Follow all instructions given to you by your doctor. Additional Information VACCINATE! IT SAVES LIVES! Members of the community who have not yet received the COVID-19 vaccine and would like to receive it can visit one of [facility] vaccine clinics. There are many vaccine clinic locations within the [facility]. For locations and available times, please visit [email or web address].gov/. It is important to note that some COVID mobile vaccine clinics are held outdoors and may be canceled in rainy or stormy conditions. To learn more about pediatric vaccinations (ages 5-11), we invite you to visit the [facility] webpage. https://www.[facility].org/pages/7801-Auepb-Ilmjckzcckp-Yhjiwcdnay-Cplnc-Amd stions.htmlTo learn more about the COVID-19 vaccine, we invite you to visit the [facility] website for a list of frequently asked questions. https://[employer]/assets/Tzoniype-uac-Hlsgabui/femss-Kpuihqu-Qyhttonjvr _Asked-Questions.pdf [facility] Patient Portal Access Instructions: Stay connected with your healthcare team and access your personal medical information anytime with the [email or web address] Patient Portal.If you would like a full copy of your medical records, please contact the [facility] Medical Records Department, Saturday through Saturday between 8a.m. and 4:30p.m. Please follow the directions below to access the portal: 1.Access the email account you provided upon registration to the [facility].2.Look for an invitation email from [facility].3.Open the email and access the invitation link: Accept Invitation to [email or web address].Fill in the required del real to create your account. Sign into www.[employer] with your username and password that you created in the above steps to stay up to date. You can then view a summary of results, a summary of your visits, and the ability to download your summaries to your computer or send the information securely to a physician. Remember that your healthcare information is confidential, so carefully consider who you will allow to register on the [email or web address] Patient Portal for access to your information. You can also access the [employer] Patient Portal on the [employer] juli. Simply click on Health Records under [employer] and then click on the [employer] logo. HOW TO SAFELY DISPOSE OF PRESCRIPTION MEDICATIONS Please use one of the following methods to safely dispose of your unused medications. 1.Use a drug disposal kit: the drug disposal pouch allows you to safely discard your old and unuseddrugs. Ask your nurse to give you one when you are discharged.2.Visit a local take-back location: Many local pharmacies and police departments have programs that collect old and unwanted prescriptiondrugs. Call your local pharmacy or go to http://Activism.com.Realtime Games/1D3Fp1c to find one close to you.3.Make use of household items: Use cat litter or old coffee grounds to dispose medications if other options arenot available. Mix your drugs with these household products, seal them in an airtight container andthrow it into the garbage. Call [facility]: [phone] to be sure your drugs can be disposed of in this way. Some medicines may require a different approach.4.Never flush your medications down the toilet. IF YOU HAVE BEEN PRESCRIBED AN OPIOID FOR PAIN If you have been prescribed an opioid (such as hydrocodone, oxycodone or morphine), it is critical to understand the possible side effects and risks of opioid pain medications. Even when taken as directed, opioids can have several side effects including: Tolerance, meaning you might need to take more of a medication for the same pain relief. Nausea, vomiting and/or constipation. Sleepiness, dizziness, dry mouth, confusion, depression or itching. Physical dependence, meaning you have withdrawal symptoms when a medication is stopped, can develop within a few days. KNOW YOUR RESPONSIBILITIES It is important to know exactly how much and how often to take the opioid pain medications you are prescribed. Never take opioids in higher amounts or more often than prescribed. Do not combine opioids with alcohol or other drugs that cause drowsiness, such as benzodiazepines, also known as benzos, including diazepam and alprazolam, muscle relaxants or sleep aids. Never sell or share prescription opioids. This is illegal. Store opioids in a secure place and out of reach of others (including children, family, friends and visitors). The last page of this document has been signed and retained as a CHART COPY. Signatures Patient Education Materials 2-OPD Minor Surgery (Steri-Strips) (08/2018) (CUSTOM) Medication Leaflets My discharge plan and instructions have been reviewed and explained to me and I,HERB VALDES understand my current condition and have read and understand these discharge instructions. I have received a written copy of the plan/instructions. If I have questions, I am aware that I should contactmy doctor. Patient/Settlement Clerk Signature: Date/Time: Relationship to Patient: Witness Name/Signature: Date[facility]Time[facility] Future Appointments Appointment Date:05/01/2022 09:00:00 AM Scheduled Provider:LUIS ELLIOTT Location:[facility] 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:PC OV [facility] Evaluation + Plan note Future Appointments Appointment Date:07/31/2022 10:00:00 AM Scheduled Provider:LUIS ELLIOTT Location:[facility] 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: OV Follow Up Future Scheduled Tests Laboratory* Urinalysis 05/01/22 * Urine Culture 05/01/22 Radiology* US Soft Tissue Mass 05/01/22 [facility] Evaluation + Plan note Future Appointments Appointment Date:07/31/2022 10:00:00 AM Scheduled Provider:LUIS ELLIOTT Location:[facility] 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: OV Follow Up Diagnostic Tests Pending * Folate Level 05/02/22 * Vitamin B12 Level 05/02/22 * Urine Culture 05/02/22 Future Scheduled Tests Laboratory* Urinalysis 05/01/22 * Urine Culture 05/01/22 Radiology* US Soft Tissue Mass 05/01/22 [facility] Evaluation + Plan note Future Appointments Appointment Date:07/31/2022 10:00:00 AM Scheduled Provider:LUIS ELLIOTT Location:[facility] 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:PC OV Follow Up Future Scheduled Tests Laboratory* Urinalysis 05/01/22 * Urine Culture 05/01/22 [facility] Evaluation + Plan note Future Appointments Appointment Date:08/30/2022 01:00:00 PM Scheduled Provider:VELMA REYNOLDS Location:[facility] 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:CV OV Appointment Date:09/06/2022 03:30:00 PM Scheduled Provider:LUIS ELLIOTT Location:[facility] 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:PC OV Future Scheduled Tests Laboratory* Urinalysis 05/01/22 * Thyroid Stimulating Hormone 07/30/22 * Urine Culture 05/01/22 * Complete Blood Count 07/30/22 * Lipid Profile 07/30/22 * Complete Metabolic Panel 07/30/22 [facility] Evaluation + Plan note Future Appointments Appointment Date:09/17/2022 03:15:00 PM Scheduled Provider:ANUM GUY MD Location:[facility] 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: 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 Appointment Date:10/11/2022 02:30:00 PM Scheduled Provider:VELMA REYNOLDS Location:[facility] 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:CV OV Appointment Date:12/06/2022 03:30:00 PM Scheduled Provider:LUIS ELLIOTT Location:[facility] 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:PC OV Follow Up Diagnostic Tests Pending * Urine Culture 09/10/22 * Antinuclear Antibody Screen, Serum 09/10/22 Future Scheduled Tests Laboratory* Urinalysis 05/01/22 * Thyroid Stimulating Hormone 07/30/22 * Urine Culture 05/01/22 * Complete Blood Count 07/30/22 * Lipid Profile 07/30/22 * Complete Metabolic Panel 07/30/22 [facility] Evaluation + Plan note Future Appointments Appointment Date:08/29/2023 03:30:00 PM Scheduled Provider:LUIS ELLIOTT Location:[facility] 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:PC Wellness Medicare Appointment Date:12/09/2023 03:00:00 PM Scheduled Provider:VELMA REYNOLDS Location:[facility] 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:CV OV Future Scheduled Tests Laboratory* Basic Metabolic Panel 09/06/23 * Ferritin 09/15/22 * Iron Level 09/15/22 * Thyroid Stimulating Hormone 07/30/22 * Thyroid Stimulating Hormone 09/15/22 * Complete Blood Count 07/30/22 * Complete Blood Count 09/06/23 * Lipid Profile 07/30/22 * Methylmalonic Acid 09/06/23 * Homocysteine 09/06/23 * Complete Metabolic Panel 07/30/22 Radiology* MA Mammo Screening Bilateral w/ Anthony 05/29/23 * BD Bone Density DEXA Axial Skeleton 05/29/23 [facility] Evaluation + Plan note Future Appointments Appointment Date:08/29/2023 03:30:00 PM Scheduled Provider:LUIS ELLIOTT Location:[facility] 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:PC Wellness Medicare Appointment Date:12/09/2023 03:00:00 PM Scheduled Provider:VELMA REYNOLDS Location:[facility] 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:CV OV Future Scheduled Tests Laboratory* Basic Metabolic Panel 09/06/23 * Ferritin 09/15/22 * Iron Level 09/15/22 * Thyroid Stimulating Hormone 07/30/22 * Thyroid Stimulating Hormone 09/15/22 * Complete Blood Count 07/30/22 * Complete Blood Count 09/06/23 * Lipid Profile 07/30/22 * Methylmalonic Acid 09/06/23 * Homocysteine 09/06/23 * Complete Metabolic Panel 07/30/22 Radiology* BD Bone Density DEXA Axial Skeleton 06/19/23 [facility] Evaluation + Plan note Future Appointments Appointment Date:08/29/2023 03:30:00 PM Scheduled Provider:LUIS ELLIOTT Location:[facility] 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:PC Wellness Medicare Appointment Date:12/09/2023 03:00:00 PM Scheduled Provider:VELMA REYNOLDS Location:[facility] 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:CV OV Diagnostic Tests Pending * Methylmalonic Acid 08/01/23 Future Scheduled Tests Laboratory* Thyroid Stimulating Hormone 09/15/22 Radiology* BD Bone Density DEXA Axial Skeleton 06/19/23 [facility] evaluation + Plan note Future Appointments Appointment Date:02/20/2024 02:00:00 PM Scheduled Provider:LUIS ELLIOTT Location:[facility] 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:PC OV Appointment Date:06/15/2024 03:00:00 PM Scheduled Provider:VELMA REYNOLDS Location:[facility] 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:CV OV Future Scheduled Tests Laboratory* Complete Blood Count 10/03/23 Radiology* BD Bone Density DEXA Axial Skeleton 06/19/23 [facility] evaluation + Plan note Future Appointments Appointment Date:05/21/2024 03:00:00 PM Scheduled Provider:LUIS ELLIOTT Location:[facility] 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:PC OV Appointment Date:06/15/2024 03:00:00 PM Scheduled Provider:VELMA REYNOLDS Location:[facility] 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:CV OV Future Scheduled Tests Laboratory* Complete Blood Count 10/03/23 Radiology* BD Bone Density DEXA Axial Skeleton 06/19/23 [facility] evaluation + Plan note Future Appointments Appointment Date:04/28/2024 11:30:00 AM Scheduled Provider:LUIS ELLIOTT Location:[facility] 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:PC OV Hospital Follow-Up Appointment Date:04/28/2024 02:15:00 PM Scheduled Provider:VELMA REYNOLDS Location:[facility] 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:CV OV Hospital Follow Up Appointment Date:05/21/2024 03:00:00 PM Scheduled Provider:LUIS ELLIOTT Location:[facility] 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:PC OV Appointment Date:06/15/2024 03:00:00 PM Scheduled Provider:VELMA REYNOLDS Location:[facility] 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:CV OV Future Scheduled Tests Laboratory* Complete Blood Count 12/14/23 Radiology* BD Bone Density DEXA Axial Skeleton 06/19/23 [facility] Evaluation + Plan note Future Appointments Appointment Date:07/22/2024 03:30:00 PM Scheduled Provider:LUIS ELLIOTT Location:[facility] 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: OV Pre Op Appointment Date:08/26/2024 02:00:00 PM Scheduled Provider:LUIS ELLIOTT Location:[facility] 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: OV Diagnostic Tests Pending * MRSA (PCR) 07/14/24 Future Scheduled Tests Laboratory* Ferritin 05/21/24 * Folate Level 05/21/24 * Iron Level 05/21/24 * Thyroid Stimulating Hormone 05/21/24 * Vitamin B12 Level 05/21/24 * Complete Blood Count 05/21/24 * Complete Blood Count 10/03/23 * Vitamin D Level 05/21/24 * Complete Metabolic Panel 05/21/24 [facility] Evaluation + Plan note Future Appointments Appointment Date:08/14/2024 12:30:00 PM Scheduled Provider:LUIS ELLIOTT Location:[facility] 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:[facility] Hospital Follow-Up Appointment Date:08/26/2024 02:00:00 PM Scheduled Provider:LUIS ELLIOTT Location:[facility] 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: OV Future Scheduled Tests Laboratory* Ferritin 05/21/24 * Folate Level 05/21/24 * Iron Level 05/21/24 * Thyroid Stimulating Hormone 05/21/24 * Vitamin B12 Level 05/21/24 * Complete Blood Count 05/21/24 * Complete Blood Count 10/03/23 * Vitamin D Level 05/21/24 * Complete Metabolic Panel 05/21/24 [facility] Evaluation note* Diagnosis Single subsegmental pulmonary embolism without acute cor pulmonale (HCC)- [facility] Diagnosis Avascular necrosis of bone of left hip (HCC)- Primary [facility] Narrative No data available for this section [facility] Hospital Discharge instructions No data available for this section [facility] Nurse Progress note* ASIYA Salazar: PERFORM Event Display: Progress Note-Nurse Authored Date: [id number] [facility] Progress note No data available for this section [facility] Summary note* ASIYA Salazar: PERFORM Event Display: Patient Summary Documents Authored Date: [id number] [facility] Summary Purpose Family History No Family History Records Found Advance Directives No Advanced Directives Records FoundNo Advanced Directives Records FoundNo Advanced Directives Records FoundNo Advanced Directives Records Found Reason for Referral Specialty Diagnoses / Procedures Referred By Jordon upton Referred To Contact Orthopedics Diagnoses Avascular necrosis of bone of left hip (HCC) Procedures CONSULT TO ORTHOPAEDICS OFFICE/OUTPATIENT [facility] 60 MINUTES Jaswinder Schmidt, [address] [place] [address] Referral ID Status Reason Start Date Expiration Date Visits Requested Visits Authorized [id number] Authorized PCP Requested Referral 06/25/2024 06/25/2025 1 1 Additional Source Comments Care Team (unrecognized sect ion and content) [employer] Relationship Specialty Start Date End Date Luis Elliott CNP [address] [place] [address] PCP - General Family Medicine 12/24/19 Velma Reynolds CNP [address] [place] [address] Family Medicine 06/17/24 [employer] Relationship Specialty Start Date End Date Luis Elliott CNP [address] [place] [address] PCP - General Family Medicine 12/24/19 Velma Reynolds CNP [address] [place] [phone] Family Medicine 06/17/24 Care Team (unrecognized sect ion and content) Care Team Personnel Name: LUIS ELLIOTT Position: P4 Advanced Practice Nurse Med Service: Active Provider Member Role: Primary Care Physician Address: Address: [address] [place] [address]- Name: VELMA REYNOLDS Position: P4 Advanced Practice Nurse Med Service: Active Provider Member Role: Electronic Die Maker Address: Address: [address] [place] [address]- Name: MOLINA COPELAND MD Position: Physician Med Service: Admitting Member Role: Compensation Coordinator Address: Address: [address] [place] [address]- Care Team Related Persons Name: PIA VALDESER Address: Home [address] [place], [place] [phone] [place] Care Team Personnel Name: LUIS ELLIOTT Position: P4 Advanced Practice Nurse Med Service: Active Provider Member Role: Primary Care Physician Address: Address: [address] [place] [id number] [place] [address] Name: VELMA REYNOLDS Position: P4 Advanced Practice Nurse Med Service: Active Provider Member Role: Electronic Die Maker Address: Address: [address] [place] [address]- Name: MOLINA COPELAND MD Position: Physician Med Service: Admitting Member Role: Compensation Coordinator Address: Address: [facility] [address] [address]- Care Team Related Persons Name: PIA VALDESER Address: Home [address] [place], [place] [phone] [place] Care Team Personnel Name: LUIS ELLIOTT Position: P4 Advanced Practice Nurse Med Service: Active Provider Member Role: Primary Care Physician Address: Address: [address] [place] [address]- [place] Name: VELMA REYNOLDS Position: P4 Advanced Practice Nurse Med Service: Active Provider Member Role: Electronic Die Maker Address: Address: [address] [place] [address] [address] [place] [address]- Name: MOLINA COPELAND MD Position: Physician Med Service: Admitting Member Role: Compensation Coordinator Address: Address: [address] [facility] [address] [place] [address]- [place] Care Team Related Persons Name: AMANDA HOOPESTON Address: Home [address] [place], [place] [phone] [place] Care Team Personnel Name: LUIS ELLIOTT Position: P4 Advanced Practice Nurse Med Service: Active Provider Member Role: Primary Care Physician Address: Address: [address] [place] [address]- Name: VELMA REYNOLDS Position: P4 Advanced Practice Nurse Med Service: Active Provider Member Role: Electronic Die Maker Address: Address: [address] [place] [address] [place] [address]- Name: MOLINA COPELAND MD Position: Physician Med Service: Admitting Member Role: Compensation Coordinator Address: Address: [address] [facility] [address] [place] [address]- Care Team Related Persons Name: BEE VALDES Address: Home [address] [place], [place] [phone] [place] Care Team Personnel Name: LUIS ELLIOTT Position: P4 Advanced Practice Nurse Member Role: Primary Care Physician Address: Address: [address] [place] [address]- Name: VELMA REYNOLDS Position: P4 Advanced Practice Nurse Member Role: Electronic Die Maker Address: Address: [address] [facility] [address] [place] [address]- [place] Name: MOLINA COPELAND MD Position: Physician Member Role: Compensation Coordinator Address: Address: [address] [facility] [address] [place] [address]- [place] Care Team Related Persons Name: BEE VALDES Address: Home [address] [place] [place], [place] [phone] Care Team Personnel Name: LUIS ELLIOTT GAMADRUM SANDER Position: P4 Advanced Practice Nurse Member Role: Primary Care Physician Address: Address: [address] [facility] [place] [address]- [place] Name: JYOTI VELMA APRN-DRUM SANDER Position: P4 Advanced Practice Nurse Member Role: Electronic Die Maker Address: Address: [address] [place] [address] [address] [facility] [place] [address]- [place] Name: MOLINA COPELAND MD Position: Physician Member Role: Compensation Coordinator Address: Address: [address] [facility] [address] [place] [address]- Care Team Related Persons Name: BEE VALDES Address: Home [address] [place], [place] [phone] INFORMATION SOURCE (unrecogn ized section and content) DATE CREATED AUTHOR 06/12/2024 [facility] ([place]) DATE CREATED AUTHOR AUTHOR'S ORGANIZ ATION 08/06/2024 [facility] DATE CREATED AUTHOR AUTHOR'S ORGANIZ ATION 08/09/2024 [facility] DATE CREATED AUTHOR AUTHOR'S ORGANIZ ATION 08/13/2024 [facility] Source Comments (unrecognize d section and content) In the event this informatio n is protected by the Federal Confidentiality of Alcohol and Drug Abuse Patient Records regulations: The Federal rules restrict any use of the information to criminally investigate or prosecute any alcohol or drug abuse patient.[facility] the event this information is protected by the Federal Confidentiality of Alcohol and Drug Abuse Patient Records regulations: The Federal rules restrict any use of the information to criminally investigate or prosecute any alcohol or drug abuse patient.[facility] [facility] Reason for Visit (unrecogniz ed section and content) Reason Comments New Patient Reason Comments Follow Up FOR RECORDS PERTAINING TO PATIENTS WHO ARE OR HAVE BEEN ENROLLED IN A CHEMICAL DEPENDENCY/SUBSTANCEABUSE PROGRAM, SOME INFORMATION MAY BE OMITTED. This clinical summary was aggregated from multiple sources. Caution should be exercised in using it in the provision of clinical care. This summary normalizes information from multiple sources, and as a consequence, information in this document may materially change the coding, format and clinical context of patient data. In addition, data may be omitted in some cases. CLINICAL DECISIONS SHOULD BE BASED ON THE PRIMARY CLINICAL RECORDS. [employer] [facility]. provides no warranty or guarantee of the accuracy or completeness of information in this document.
--- NOTE | 2024-08-16 18:35 | RAD_ITS ---
EXAM: XR CHEST, 1 VIEW CLINICAL INDICATION: cough TECHNIQUE: Frontal view of the chest. COMPARISON: April 19, 2024 FINDINGS: LUNGS AND PLEURAL SPACES: Unremarkable. No consolidation or edema. No pneumothorax. No effusion. HEART: Coronary artery stents again project over the left heart. MEDIASTINUM: Central airways and mediastinal contour are unremarkable. BONES/JOINTS: Unremarkable. No acute fracture. SOFT TISSUES: Unremarkable. RAD/Chest 1 View (Portable) IMPRESSION: No acute findings in the chest. Electronically Signed: Lois Beckett MD at 19:55 EDT ,
[2024-08-16 18:38] LABS: Absolute Lymphocyte Count 1.62 X10^3/uL (0.83-4.51); Absolute Neutrophil Count 8.2 X10^3/uL (2.0-7.7); Basophil# 0.02 X10^3/uL; Basophil% 0.2 % (0-1); Eosinophil# 0.42 X10^3/uL; Eosinophils% 3.8 % (0-5); Hematocrit 27.7 % (37-47); Hemoglobin 8.8 g/dL (12.0-15.0); Lymphocyte # 1.62 X10^3/ul (0.83-4.51); Lymphocyte % 14.6 % (19-41); Mean Corp Hgb Conc 31.8 g/dL (32-36); Mean Corpuscular Hgb 30.9 pg (27.0-32.0); Mean Corpuscular Volume 97.2 fL (81-99); Mean Platelet Vol. 11.1 fl (6.2-12.0); Monocyte# 0.78 X10^3/uL; NRBC Flagged by Analyzer 0.3 % (0-5); Neutrophil % 73.8 % (47-70); Platelet Count 357 K/mm3 (150-450); RBC Distribution Width CV 15.9 % (11.6-14.6); RBC Distribution Width SD 55.2 fl (35.1-43.9); Red Blood Count 2.85 M/mm3 (4.2-5.4); White Blood Count 11.1 K/mm3 (4.4-11.0)
[2024-08-16 19:24] LABS: International Normalized Ratio 1.4; Prothrombin Time (Protime)PT. 16.7 SECONDS (11.7-14.9)
[2024-08-16 19:51] LABS: ALB/GLOB Ratio 0.6 RATIO (0.9-2.4); AST(SGOT) 32 U/L (15-37); Alanine Aminotransfer ALT/SGPT 18 U/L (13-56); Albumin, Serum 2.9 g/dL (3.2-5.0); Alkaline Phosphatase 190 U/L (45-117); Anion Gap 7 (5-15); BUN 20 mg/dL (7-18); BUN/Creat Ratio 15.3 RATIO (10-20); Calcium,Total 9.5 mg/dL (8.5-10.1); Chloride 100 mmol/L (98-107); Creatinine, Serum 1.31 mg/dL (0.55-1.02); EST Glomerular Filtration Rate 43 mL/min (>60); Est Glom Filt Rate - Afr Amer 51 mL/min (>60); Estimated Creatinine Clearance 32.26 ml/min; Glucose 108 mg/dL (74-106); Lactic Acid 1.1 mmol/L (0.4-1.9); Lipase 31 U/L (13-75); Potassium 4.6 mmol/L (3.5-5.1); Protein, Total 7.9 g/dL (6.4-8.2); Sodium Level 135 mmol/L (136-145); Troponin-I HS 6 pg/mL (3.0-54.0)
[2024-08-16 19:58] VITALS: BP 114/71; PULSE 76; RESP 18; O2SAT 96
[2024-08-16 20:09] LABS: Mucous, Urine 0 SEEN /hpf (<or=2+); Red Blood Cells-Urine 0 SEEN /hpf (0-5)
[2024-08-16 20:10] LABS: Color, Urine Yellow (Yellow); Glucose, Dipstick Normal (Normal); Ketone-Dipstick Negative (Negative); Leukocyte Esterase-Dipstick 25 /ul (Negative); Nitrite-Dipstick Negative (Negative); Occult Blood-Urine Negative /ul (Negative); Protein-Dipstick 15 mg/dl (Negative); Specific Gravity, Urine 1.015 (1.002-1.030); Urine Bilirubin Dipstick Negative (Negative); Urine Clarity Clear (Clear); Urine Urobilinogen Normal (Normal)
[2024-08-16 20:28] LABS: Bacteria 1+ /hpf (None Seen); Squamous Epithelial Cells - UA 5-10 SEEN /hpf (5-10); White Blood Cells 5-10 SEEN /hpf (0-5)
[2024-08-16 20:45] VITALS: BP 105/84; BP 115/62; BP 115/68; PULSE 74; PULSE 79; PULSE 80
--- NOTE | 2024-08-16 20:48 | ED.RN ---
called CT to inquire about results
[2024-08-16 22:35] VITALS: BP 119/78; PULSE 75; RESP 17; TEMP 36.7; O2SAT 99
--- NOTE | 2024-08-16 22:45 | HP.PCM.HOS_ITS ---
[facility] - General General Date of Admission: 08/16/24 Date of Service: 08/16/24 Chief Complaint: Confusion, Slurred Speech and Dark Stools. [facility] Narrative HERB VALDES, is a 69 F with a past medical history of essential hypertension, hyperlipidemia, CAD; s/p CABG x 1 with subsequent coronary artery stent placement, history of PE; on Eliquis, history of carotid stenosis; s/p endarterectomy, chronic HENRIETTA, GERD, history of renal calculi, history of depression; on Duloxetine, history of cholecystectomy and history of AVN of the Right hip; s/p recent Right THR at [facility] ~2 weeks ago; on oxycodone every 4 hours as needed who presents to [facility] ER complaining of confusion, slurred speech and dark stools. Ms. Valdes is not a fully-reliable historian at this time as information was gathered from chart, medical staff and computer. According to the records her symptoms began approximately 5 PM earlier today after she took oxycodone for pain and was subsequently noted to be confused with slurred speech. The patient's daughter informed the ER staff that she typically has sleepiness and some slurred speech on oxycodone with the patient slurred speech resolving in the ER. The daughter also informed the ER staff that her mother was pale in appearance along with dark stools, which patient claims are chronic due to her iron supplementation. There was no report of fever, chills, nausea, vomiting, diarrhea, focal neurologic weakness or headache. Ms. Valdes does live at home alone. In the ER she was noted to have a UA positive for evidence of Acute Cystitis; without hematuria with Leukocytosis of 11.1 K present on admission complicated by clinical evidence of Metabolic Encephalopathy likely due to Adverse Drug Reaction to oxycodone after recent hip surgery (with UDS positive for opiates and MDMA) along with dark stools with Hemoccult negative in ER and no evidence of recent bleeding on Plavix and Eliquis. She was then admitted to the PCU under observation status for ongoing care for stay that is expected to be less than 2 midnights. COUNTS INCLUDE 234 BEDS AT THE [facility] Medical History (Updated 08/16/24 @ 23:[address] Trung Deleon, DO) Kidney stone FHx: carotid endarterectomy Hyperlipidemia HTN (hypertension) Home Medications ?Medication ?Instructions ?Recorded ?Last Taken ?Type amlodipine 5 mg tablet 5 mg PO DAILY blood pressure 07/15/21 08/16/24 20:00 History carvedilol 25 mg tablet 25 mg PO BID blood pressure 07/15/21 08/16/24 20:19 History clopidogrel 75 mg tablet 75 mg PO DAILY 07/15/21 08/16/24 08:19 History eszopiclone 3 mg tablet 3 mg PO QHS sleep 07/15/21 08/15/24 20:20 History ondansetron 4 mg disintegrating 4 mg PO Q8H PRN PRN Nausea #14 tabs 07/15/21 04/06/24 Rx tablet apixaban 5 mg tablet (Eliquis) 5 mg PO BID blood thinner 08/16/24 08/16/24 20:18 History doxycycline hyclate 100 mg capsule 100 mg PO Q12.TCU 08/16/24 08/16/24 20:19 History duloxetine 60 mg capsule,delayed 60 mg PO DAILY depression 08/16/24 08/16/24 08:20 History release ferrous sulfate PO 08/16/24 Unknown History oxycodone 5 mg tablet 5 - 10 mg PO Q4H PRN PRN pain 08/16/24 08/16/24 17:21 History pantoprazole 40 mg tablet,delayed 40 mg PO DAILY GERD 08/16/24 08/16/24 08:21 History release trazodone 50 mg tablet 50 mg PO QHS sleep 08/16/24 08/15/24 20:21 History verapamil 120 mg tablet,extended 120 mg PO DAILY blood pressure 08/16/24 08/16/24 08:22 History release Allergy/AdvReac Type Severity Reaction Status Date / Time codeine AdvReac Nausea/Vom/ Verified 08/16/24 17:57 Diarrhea Surgical History (Updated 08/16/24 @ 23:[address] Trung Deleon DO) Hx of cholecystectomy S/P CABG x 1 History of coronary artery stent placement History of cardiac catheterization Social History Smoking Status: Former smoker ROS ROS Narrative Review of systems: Constitutional: Patient denies fever or chills. Eyes: Patient denies visual changes or discharge from eyes. ENT: Patient denies runny nose, sore throat or ear pain. Resp: Patient denies shortness of breath or cough. CV: Patient denies chest pain, palpitations or heart racing. GI: Patient admits to dark stools but denies recent obvious bleeding. She denies nausea, vomiting, diarrhea or constipation. : Patient denies dysuria or hematuria. MSK: Patient denies neck pain or back pain. Skin: Patient denies rash, abscess or jaundice. Psych: Patient denies symptoms of uncontrolled depression or anxiety. Neuro: Patient admits to slurred speech and transient confusion after oxycodone as per HPI. Patient denies headache or focal motor weakness. Allergy: Patient denies lip swelling, tongue swelling or urticaria. Hematology: Patient admits to dark stools. Endocrinology: Patient denies polyuria, polydipsia or polyphagia. 14 point review of systems otherwise negative save for positives noted above in HPI. Vital Signs Vital Signs Vital Signs: 08/16/24 17:48 08/16/24 19:58 08/16/24 20:45 Temperature 96.7 F L Temperature Source Oral Pulse Rate 77 76 Pulse Rate [Lying] 74 Pulse Rate [Sitting (for 1 minute prior to obtaining)] 79 Pulse Rate [Standing (for 1 minute prior to obtaining)] 80 Respiratory Rate 18 18 Blood Pressure 125/74 H 114/71 Blood Pressure [Lying] 105/84 H Blood Pressure [Sitting (for 1 minute prior to obtaining)] 115/68 Blood Pressure [Standing (for 1 minute prior to obtaining)] 115/62 Blood Pressure Mean 91 85 Blood Pressure Mean [Lying] 91 Blood Pressure Mean [Sitting (for 1 minute prior to obtaining)] 83 Blood Pressure Mean [Standing (for 1 minute prior to obtaining)] 79 Pulse Ox 95 96 Oxygen Delivery Method Room Air Room Air 08/16/24 22:35 Temperature 98.1 F Temperature Source Pulse Rate 75 Pulse Rate [Lying] Pulse Rate [Sitting (for 1 minute prior to obtaining)] Pulse Rate [Standing (for 1 minute prior to obtaining)] Respiratory Rate 17 Blood Pressure 119/78 Blood Pressure [Lying] Blood Pressure [Sitting (for 1 minute prior to obtaining)] Blood Pressure [Standing (for 1 minute prior to obtaining)] Blood Pressure Mean 91 Blood Pressure Mean [Lying] Blood Pressure Mean [Sitting (for 1 minute prior to obtaining)] Blood Pressure Mean [Standing (for 1 minute prior to obtaining)] Pulse Ox 99 Oxygen Delivery Method Weight Weight: 127 lb 13.89 oz Body Mass Index (BMI) 24.1 Physical Exam Const alert, oriented x3, no apparent distress and average body habitus General Appearance: cooperative HEENT normocephalic, head/scalp atraumatic, hearing grossly normal bilaterally and moist oral mucous membranes Eyes PERRL and EOMs intact bilaterally Neck no lymphadenopathy and supple Resp normal respiratory effort, no retractions, no use of accessory muscles and clear to auscultation bilaterally Cardio regular rate and regular rhythm GI normal to inspection, nondistended, normoactive bowel sounds, soft to palpation, non-tender and non-distended Extremity Extremity Narrative: Evidence of recent Right total hip replacement with scar healing without signs of infection, dehiscence or vascular compromise. Skin Skin Narrative: Patient has no evidence of rash, abscess or jaundice. Neuro oriented x3, CN's II-XII intact bilaterally, moves all extremities and no focal motor deficits Sensorium / Orientation: awake, alert, oriented to person, oriented to place and oriented to time Speech: speech normal Psych affect normal Results Medical Records Data Attestation: I reviewed the patient's medical records Lab / Micro Data Attestation: I reviewed the patient's lab results. 08/17/24 05:19 08/16/24 18:30 Labs: Laboratory Results - last 24 hr 08/16/24 18:30: WBC 11.1 H, RBC 2.85 L, Hgb 8.8 L, Hct 27.7 L, MCV 97.2, MCH 30.9, MCHC 31.8 L, RDW Std Deviation 55.2 H, RDW Coeff of Dave 15.9 H, Plt Count 357, MPV 11.1, Immature Gran % (Auto) 0.600, Neut % (Auto) 73.8 H, Lymph % (Auto) 14.6 L, [place] % (Auto) 7.0, Eos % (Auto) 3.8, Baso % (Auto) 0.2, Absolute Neuts (auto) 8.2 H, Absolute Lymphs (auto) 1.62, Nucleated RBC % 0.3, PT 16.7 H, INR 1.4, Sodium 135 L, Potassium 4.6, Chloride 100, Carbon Dioxide 28.0, Anion Gap 7, BUN 20 H, Creatinine 1.31 H, Estim Creat Clear Calc 32.26, Est GFR (MDRD) Af Amer 51 L, Est GFR (MDRD) Non-Af 43 L, BUN/Creatinine Ratio 15.3, Glucose 108 H, Lactic Acid 1.1, Calcium 9.5, Total Bilirubin 0.70, AST 32, ALT 18, Alkaline Phosphatase 190 H, Troponin I High Sens 6, Total Protein 7.9, Albumin 2.9 L, G lobulin 5.0 H, Albumin/Globulin Ratio 0.6 L, Lipase 31 08/16/24 20:00: Urine Color Yellow, Urine Clarity Clear, Urine pH 6.0, Ur Specific [place] 1.015, Urine Protein 15 H, Urine Glucose (UA) Normal, Urine Ketones Negative, Urine Occult Blood Negative, Urine Nitrite Negative, Urine Bilirubin Negative, Urine Urobilinogen Normal, Ur Leukocyte Esterase 25 H, Urine RBC 0 SEEN, Urine WBC 5-10 SEEN, Ur Squamous Epith Cells 5-10 SEEN, Urine Bacteria 1+, Urine Mucus 0 SEEN Micro: Microbiology 08/16/24 18:45 Stool Stool Occult Blood (IL[facility]) - Final Imaging Radiology Impression Brain CT 08/16/24 18:09 IMPRESSION: No acute findings in the head/brain. Mild chronic changes. Electronically Signed: Lois Beckett MD at 21:08 EDT , Chest X-Ray 08/16/24 18:35 IMPRESSION: No acute findings in the chest. Electronically Signed: Lois Beckett MD at 19:55 EDT , Assessment & Plan Assessment/Plan (1) Acute cystitis without hematuria: (2) Metabolic encephalopathy: (3) Adverse drug reaction: QUALIFIERS: Encounter type: initial encounter Qualified Code(s): T50.905A - Adverse effect of unspecified drugs, medicaments and biological substances, initial encounter (4) Dark stools: (5) Hx of pulmonary embolus: (6) Anticoagulated: (7) S/P CABG x 1: (8) Anemia: QUALIFIERS: Anemia type: unspecified type Qualified Code(s): D 64.9 - Anemia, unspecified (9) FHx: carotid endarterectomy: (10) S/P CABG x 1: PLAN: Plan 1. UA positive for evidence of Acute Cystitis; without hematuria with Leukocytosis of 11.1 K present on admission - Admit to PCU under observation status. Start empiric Rocephin 1 g IV daily and await culture and sensitivity data. Give Tylenol as needed pain or fever. 2. Adverse Drug Reaction to oxycodone after recent Right hip surgery done for AVN at [facility] ~2 weeks ago; already on Plavix and Eliquis at time of admission (with UDS potitive for opiates and MDMA) complicating #1 - Noted. Hold oxycodone and monitor for improvement. Consider starting alternative agent or sharply decreased dose and frequency to prevent recurrence. I also spoke with the pharmacist on-call and reviewed her medication list with the only likely culprit medication to possibly trigger UDS positive for MDMA is suspected to be eszopiclone which should also likely be stopped outpatient too. 3. Metabolic Encephalopathy arising from #1 & #2 - Minimize MAINTAINER OPERATOR-active medications and monitor for improvement. Check TSH, B12, folate and UDS to evaluate for potentially reversible causes of confusion. 4. Dark stools with patient notably on iron supplementation used to treat chronic HENRIETTA with no evidence of recent bleeding with normal BUN and Hemoccult negative stools in ER - Noted. Watch for any objective evidence of active bleeding overnight. Finally, we will place consult to gastroenterology to see this patient on rounds in the a.m. for further recommendations without appreciated in advance. 5. History of depression; on Duloxetine - Noted. Continue duloxetine as previous. 6. History of PE; on Eliquis - Hold Eliquis for the time being and then restart once it is confirmed patient has no evidence of active bleeding. 6. CAD; s/p CABG x 1 with subsequent coronary artery stent placement - Noted. Restart Plavix once no active GI bleeding is present. 7. History of carotid stenosis; s/p endarterectomy - Apparently stable. Nevertheless, we will check carotid Doppler this admission to check current status and evaluate for recurrence. 8. Essential hypertension - Hold scheduled antihypertensives until MRI confirmed negative for acute neurologic insult. 9. Hyperlipidemia - Resume statin and check lipid profile. 10. GERD - Resume PPI as previous. 11. History of renal calculi - Noted with no signs of recurrence at this time. 12. History of cholecystectomy - Noted. 13. DVT prophylaxis - Place SCDs for now. Restart Eliquis as previous once active GI bleeding is ruled out. Total time: Approximately (but not less than) 75 minutes. Charges/Coding Visit Charges OBSV E&M: 88751 Observ/hosp same date L2
[2024-08-16 23:00] VITALS: BP 139/73; PULSE 77; RESP 16; O2SAT 98
--- OUTSIDE RECORDS SUMMARY | 2024-08-16 23:11 | XMS RPT_ITS | CCD ---
Author Organization [facility] Informat ion Partnership [facility] Care Team Providers Care Typewriter Operator Automatic Name Role Phone EARL ORO, LUIS Primary Care Physician EARL ORO, LUIS Attending Unavailabl e BALTES RUBBER ROLLER GRINDER-RECEIVER/LABORER, [facility] Care Unavailabl e BALTES RUBBER ROLLER GRINDER-RECEIVER/LABORER, LUIS Attending Unavailabl e BALTES RUBBER ROLLER GRINDER-RECEIVER/LABORER, [facility] Care Unavailabl e BALTES RUBBER ROLLER GRINDER-RECEIVER/LABORER, [facility] Care Unavailabl e BALTES RUBBER ROLLER GRINDER-RECEIVER/LABORER, LUIS Attending UnavailAGUILAR Collins MD Attending Unavaila ble BALTES RUBBER ROLLER GRINDER-RECEIVER/LABORER, [facility] Unavailabl yvonne JESUS MD, DR PHILLIPS Consulting Unavailab Amanuel ROGERS, CRISTIAN Admitting Unavailable ISIDORO GARLAND MD, DR JAIDEN CHENG Consulting Unavailpalmira YANG MD, CHRISTIAN Consulting Taurus MAYORGA MD, ROXY Gong Consulting Unavailable EARL SMITHN-ESAU, LUIS Attending Unavailabl e BALTES RUBBER ROLLER GRINDER-RECEIVER/LABORER, [facility] Care Unavailabl e JYOTI RUBBER ROLLER GRINDER-RECEIVER/LABORERVELMA Attending Unavailab le BALTES RUBBER ROLLER GRINDER-RECEIVER/LABORER, [facility] Care Unavailabl e BALTES RUBBER ROLLER GRINDER-RECEIVER/LABORER, [facility] Care Unavailabl e CARMELA MONSON, DR TATIANA Chavis Attending Unavailabl e BALTES RUBBER ROLLER GRINDER-RECEIVER/LABORER, [facility] Care Unavailabl e SHWETHA KIM Attending Unavailable CANDIDA RUBBER ROLLER GRINDER-RECEIVER/LABOREROKSANA Consulting Unavaila ble MELISSATES RUBBER ROLLER GRINDER-RECEIVER/LABORER, [facility] Care Unavailabl e KULWINDER RUBBER ROLLER GRINDER-RECEIVER/LABORERMEGAN Admitting Unavail VENTURA Crews DO Attending Taurus VELASCO MD, DR ONOFRE Attending Unavailabl e BALTES RUBBER ROLLER GRINDER-RECEIVER/LABORER, [facility] Care Unavailabl yvonne ALANIS MD, DR STRONG Attending Unavailab le BALTES RUBBER ROLLER GRINDER-RECEIVER/LABORER, [facility] Care Unavailabl e BALTES RUBBER ROLLER GRINDER-RECEIVER/LABORER, LUIS Primary Care Unavailabl e YADYWon , ZULY Attending Unavailable BALTES RUBBER ROLLER GRINDER-[facility], LUIS Attending Unavailabl e BALTES RUBBER ROLLER GRINDER-[facility], LUIS Primary Care Unavailabl e BALTES RUBBER ROLLER GRINDER-[facility], LUIS Attending Unavailabl e BALTES RUBBER ROLLER GRINDER-[facility] [place] Primary Care Unavailabl e Baltes RECEIVER/LABORER, [place] Primary Care Provider Velma Reynolds CNP Unavailable JASWINDER SCHMIDT Referring Unavailable BALTES, LUIS Primary Care Unavailable JASWINDER SCHMIDT Attending Unavailable BALTES, LUIS Primary Care Unavailable BALTES RUBBER ROLLER GRINDER-[facility] [place] Primary Care Unavailabl yvonne PEDRO MD, DR MAGED Chavis Attending Unavailab noemi PEDRO MD, DR MAGED Chavis Admitting Unavailab noemi PEDRO MD, DR MAGED Chavis Attending Unavailab le BALTES RUBBER ROLLER GRINDER-[facility] [place] Primary Care Unavailabl e BALTES RUBBER ROLLER GRINDER-[facility], LUIS Consulting Unavailabl e KENNEN RUBBER ROLLER GRINDER-[facility], SIMA Diaz Consulting Luigi PEDRO MD, DR MAGED Chavis Attending Unavailab le BALTES RUBBER ROLLER GRINDER-[facility] [place] Primary Care Unavailabl e Allergies Allergy Classification Reported Allergen(s) Allergy Type Date of Onset Reaction(s) Facility (20 sources) Codeine; Translations: [codeine] Drug Allergy 6 nausea [facility] (20 sources) Lisinopril; Translations: [lisinopril] Drug Allergy 0 Other: See Comments [facility] (20 sources) traMADol; Translations: [tramadol] Drug Allergy confusion, Unknown [facility] (2 sources) altram [Other] Propensity to adverse reactions 7 Mental Status Change [facility] (1 source) OTHER; Translations: [OTHER] Propensity to adverse reactions (disorder) 7 [facility] Repository Medications Current Medications Medication Drug Class(es) Dates Sig (Normalized) Sig (Original) acetaminophen 1000 mg oral tablet (20 sources) Start: 08-05-2024 take 1 tablet by mouth once daily Tylenol Dose : 1,000 mg = 2 tab(s), Oral, TID, not to exceed 3000 mg/day, 0 Refill(s) Start Date: 08/05/24 Status: Ordered Start: 01-05-2020 take 2 tablets by [facility] every six hours acetaminophen (TYLENOL) 325 mg [...] qDay, # 90 tab(s), 3 Refill(s), Pharmacy: [facility] #[id number], 155, cm, 05/22/21 13:28:00 EDT, Height, kg, 05/22/21 13:28:00 EDT, Dosing Weight Start Date: 07/19/21 Status: Ordered apixaban 5 mg oral tablet (4 sources) Factor Xa Inhibitor Start: 05-26-2024 Eliquis 5 mg oral tablet Dose : 5 mg = 1 tab(s), Oral, BID, # 60 tab(s), 3 Refill(s), Pharmacy: [facility]/pharmacy #[id number], 155, cm, 05/26/24 14:11:00 EDT, Height, 56.7, kg, 05/26/24 14:11:00 EDT, Dosing Weight Start Date: 05/26/24 Status: Ordered Start: 04-30-2024 Eliquis 5 mg o ral tablet Dose : 5 mg = 1 tab(s), Oral, BID, # 60 tab(s), 0 Refill(s), Pharmacy: [facility]/pharmacy #[id number], 155, cm, 04/24/24 4:14:00 EDT, Height, 65.6, kg, 04/24/24 4:14:00 EDT, Dosing Weight Start Date: 04/30/24 Status: Ordered aspirin 81 mg chewable tablet (11 sources) Platelet Aggregation Inhibitor, Nonsteroidal Anti-inflammatory Drug Start: 03-11-2023 aspirin 81 mg oral tablet, chewable Dose : 81 mg = 1 tab(s), Oral, Daily, # 30 tab(s), 11 Refill(s), Pharmacy: [facility] #[id number], 155, cm, 03/11/23 8:04:00 EDT, Height Start Date: 03/11/23 Status: Ordered atorvastatin 40 mg oral tablet (20 sources) HMG-CoA Reductase Inhibitor Start: 01-05-2020 atorvastatin 40 mg oral tablet Dose : 40 mg = 1 tab(s), Oral, qHS, # 90 tab(s), 3 Refill(s), Pharmacy: [facility], 156, cm, 07/22/24 15:12:00 EDT, Height, [...] 0 Refill(s), 03/05/24 5:01:00 PM EDT, Pharmacy: [facility]/pharmacy #[id number], Cough, 159, cm, 02/27/24 16:14:00 EDT, [...] # 180 tab(s), 0 Refill(s), [id number], Osteopenia Hypocalcemia, 156.21, cm, 08/10/20 8:55:00 EDT, Height, kg, 08/10/20 8:55:00 EDT, Dosing Weight Start Date: 08/10/20 Status: Ordered carvedilol 12.5 mg oral tablet (20 sources) alpha-Adrenergic Bandar, beta-Adrenergic Bandar Start: 07-23-2024 carvedilol 12.5 mg oral tablet Dose : 12.5 mg = 1 tab(s), Oral, BIDM, # 180 tab(s), 3 Refill(s), Pharmacy: [facility], 156, cm, 07/22/24 15:12:00 EDT, Height, kg, 07/22/24 15:12:00 EDT, Dosing Weight Start Date: 07/23/24 Status: Ordered Start: 04-21-2024 carvedilol 12. 5 mg oral tablet Dose : 12.5 mg = 1 tab(s), Oral, BIDM, # 60 tab(s), 0 Refill(s), Pharmacy: [facility]/pharmacy #[id number], 155, cm, 04/20/24 0:46:00 EDT, Height, kg, 04/20/24 0:46:00 EDT, Dosing Weight Start Date: 04/21/24 Status: Ordered Start: 04-27-2021 take 1 tablet by terence twice daily carvedilol 25 mg oral tablet 1 tab(s), Oral, BID, # 180 tab(s), 1 Refill(s), [id number], 157.5, cm, 12/09/23 14:45:00 EST, Height, kg, 12/09/23 14:45:00 EST, Dosing Weight Start Date: 01/31/24 Status: Ordered cefdinir 300 mg oral capsule (1 source) Cephalosporin Antibacterial Start: 04-30-2024 End: 05-14-2024 cefdinir 300 mg oral capsule Dose : 300 mg = 1 cap(s), Oral, q12h, X 14 day(s), # 28 cap(s), 0 Refill(s), 05/14/24 11:48:00 AM EDT, Pharmacy: [facility]/pharmacy #[id number], 155, cm, 04/24/24 4:14:00 EDT, Height, [...] qDay, # 90 tab(s), 3 Refill(s), Pharmacy: [facility], 156, cm, 07/22/24 15:12:00 EDT, Height, kg, 07/22/24 15:12:00 EDT, Dosing Weight Start Date: 07/23/24 Status: Ordered Start: 04-24-2017 clopidogrel 75 mg oral tablet Dose : 75 mg = 1 tab(s), Oral, qDay, # 90 tab(s), 3 Refill(s), Pharmacy: [email or web address] #[id number], 162.6, cm, 03/03/24 16:53:00 EDT, Height, kg, [...] qDay, # 90 cap(s), 3 Refill(s), Pharmacy: [facility]/pharmacy #[id number], Depression, 162.6, cm, 03/03/24 16:53:00 EDT, [...] 0 Refill(s), 03/08/24 5:01:00 PM EDT, Pharmacy: [facility]/pharmacy #[id number], Acute rhinosinusitis Cough, 159, cm, 02/27/24 [...] qDay, # 45 tab(s), 3 Refill(s), Pharmacy: [facility] #[id number], 157.5, cm, 12/09/23 14:45:00 EST, Height, kg, 12/09/23 14:45:00 EST, Dosing Weight Start Date: 01/02/24 Status: Ordered Start: 01-31-2022 losartan 100 m g oral tablet Dose : 100 mg = 1 tab(s), Oral, qDay, # 90 tab(s), 1 Refill(s), Pharmacy: [facility] #[id number], 155, cm, 12/06/22 15:28:00 EST, Height, kg, [...] # 25 tab(s), 1 Refill(s), [id number] Start Date: 11/10/19 Status: Ordered oxyCODONE hydrochloride [...] Date: 07/22/24 Status: Ordered polyethylene glycol 3350 75052 mg powder for oral solution (10 sources) [...] qHS, # 90 tab(s), 3 Refill(s), Pharmacy: [facility]/pharmacy #[id number], Insomnia, 156, cm, 07/22/24 15:12:00 EDT, Height, kg, 07/22/24 15:12:00 EDT, Dosing Weight Start Date: 07/22/24 Stop Date: 07/17/25 Status: Ordered Start: 02-02-2023 End: 08-01-2023 traZODone 50 mg oral tablet Dose : 50 mg = 1 tab(s), Oral, qHS, # 90 tab(s), 3 Refill(s), Pharmacy: [facility] #[id number], Insomnia, 155, cm, 05/29/23 15:50:00 EDT, Height, kg, 05/29/23 15:50:00 EDT, Dosing Weight Start Date: 07/10/23 Status: Ordered Start: 10-27-2021 End: 04-25-2022 traZODone 50 mg oral tablet Dose : 50 mg = 1 tab(s), Oral, qHS, # 90 tab(s), 1 Refill(s), Pharmacy: [facility] #[id number], Insomnia, 157.5, cm, 08/08/21 10:36:00 EDT, Height, [...] Ordered Start: 01-01-2024 take 1 tablet by terence once daily [...] Ordered Start: 04-18-2023 take 1 tablet by [facility] once daily verapamil 120 mg/12 hours oral tablet, extended release 1 tab(s), Oral, qDay, # 30 tab(s), 0 Refill(s), Pharmacy: [email or web address] #[id number], 155, cm, 03/28/23 13:14:00 EDT, Height, kg, 03/28/23 13:14:00 EDT, Dosing Weight Start Date: 04/18/23 Status: Ordered Start: 08-30-2022 take 1 tablet by terence every hour, then take 1 tablet by mouth once daily verapamil 120 mg/12 hours oral tablet, extended release Dose : 120 mg = 1 tab(s), Oral, qDay, # 30 tab(s), 4 Refill(s), [email or web address] #[id number], 157.5, cm, 08/30/22 13:23:00 EST, Height, kg, [...] using, # 16 gram(s), 0 Refill(s), Pharmacy: [facility]/pharmacy #4605, Acute rhinosinusitis Bilateral serous otitis media, [...] nausea/vomiting, # 12 tab(s), 0 Refill(s), Pharmacy: [facility]/pharmacy #[id number], Nausea with vomiting, 159, cm, 02/27/24 [...] Reports Accession: Collected Date/Time: Received Date/Time: Pathologist: [id number] 08/04/2024 12:09 EDT 08/05/2024 09:58 EDT MICHAEL [...] All parts labelled with patient name and [id number] Received in formalin labelled left femoral head [...] cm. Following decalcification. RS-1 Nolan Berg, Pathologists' Business Team Leader (ASCP) Performed by NOLAN BERG MICROSCOPIC DESCRIPTION: The microscopic examination is performed, except in the case of Gross Only. Electronically Signed by Pathology Report verified by [facility] MICHAEL SKINNER Sign out Date: 08/06/2024 13:02 Performing Lab: [facility], [address] [place] [address] Pathology Dept Disclaimer If ancillary studies were utilized, the following Laboratory Developed Test (LDT) disclaimer will apply: Under CLIA requirements, [facility] is qualified to perform high complexity testing. For all ancillary stains, positive and negative controls stain appropriately. Performance characteristics of immunohistochemical and chromogenic in-situ hybridization tests have been determined by [facility]. These tests are used for clinical purposes, They should not be regarded as investigational or for research. Normal [facility] .Auto Diffon 08-05-2024 Basophil, Absolute 0.0 10 3/mcL Normal 0.0-0.2 [facility] Comment on above: Performed By: #### M RSAPCR #### [address] [address] Basophils/100 WBC (Bld) 0.4 % Normal 0.0-2.5 [facility] Comment on above: Performed By: #### M RSAPCR #### [address] [address] Eosinophil, Absolute 0.0 10 3/mcL Normal 0.0-0.7 [facility] Comment on above: Performed By: #### M RSAPCR #### [address] [address] Eosinophils/100 WBC (Bld) 0.0 % Normal 0.0-7.0 [facility] Comment on above: Performed By: #### M RSAPCR #### [address] [address] Lymphocyte, Absolute 0.8 10 3/mcL Low 0.9-4.3 [facility] Comment on above: Performed By: #### M RSAPCR #### [address] [address] Lymphocytes/100 WBC (Bld) 6.8 % Low 20.0-40.0 [facility] Comment on above: Performed By: #### M RSAPCR #### [address] [address] Monocyte, Absolute 0.6 10 3/mcL Normal 0.1-1.4 [facility] Comment on above: Performed By: #### M RSAPCR #### [address] [address] Monocytes/100 WBC (Bld) 5.3 % Normal 2.0-13.0 [facility] Comment on above: Performed By: #### M RSAPCR #### [address] [address] Neutrophils/100 WBC (Bld) 87.5 % High 50.0-75.0 [facility] Comment on above: Performed By: #### M RSAPCR #### [address] [address] .GFRon 08-05-2024 GFR 35 ml/min/1.73sqm Normal [facility] Comment on above: Result Comment: GFR Population [...] meters Performed By: #### M RSAPCR #### [address] [address] GFR Non- 29 ml/min/1.73sqm Normal [facility] Comment on above: Result Comment: GFR Population [...] meters Performed By: #### M RSAPCR #### [address] [address] .NEUABSon 08-05-2024 Neutrophil, Absolute 9.7 10 3/mcL High 2.3-8.1 [facility] Comment on above: Performed By: #### M RSAPCR #### [address] [address] BMPon 08-05-2024 BUN/Creatinine Ratio 17 ratio Normal 7-27 [facility] Comment on above: Performed By: #### M RSAPCR #### [address] [address] Calcium [Mass/Vol] 9.5 mg/dL Normal 8.4-10.2 [facility] Comment on above: Performed By: #### M RSAPCR #### [address] [address] Chloride [Moles/Vol] 101 mmol/L Normal 98-107 [facility] Comment on above: Performed By: #### M RSAPCR #### [address] [address] CO2 [Moles/Vol] 25 mmol/L Normal 23-31 [facility] Comment on above: Performed By: #### M RSAPCR #### [address] [address] Creatinine [Mass/Vol] 1.72 mg/dL High 0.55-1.02 [facility] Comment on above: Result Comment: Test ing performed on Siemens Dimension EXL analyzer using a modified kinetic Lona technique. Performed By: #### M RSAPCR #### [address] [address] Electrolyte Balance 11.0 mEq/L Normal 4.0-15.0 [facility] Comment on above: Performed By: #### M RSAPCR #### [address] [address] Glucose [Mass/Vol] 158 mg/dL High 83-110 [facility] Comment on above: Performed By: #### M RSAPCR #### [address] [address] Potassium [Moles/Vol] 4.9 mmol/L Normal 3.5-5.1 [facility] Comment on above: Performed By: #### M RSAPCR #### [address] [address] Sodium [Moles/Vol] 137 mmol/L Normal 136-145 [facility] Comment on above: Performed By: #### M RSAPCR #### [place] [id number] Urea nitrogen [Mass/Vol] 30 mg/dL High 7-18 [facility] Comment on above: Performed By: #### M RSAPCR #### [address] [address] CBCon 08-05-2024 Erythrocyte distribution width (RBC) [Ratio] 16.5 % High 11.5-15.5 [facility] Comment on above: Performed By: #### M RSAPCR #### [place] [id number] Hematocrit (Bld) [Volume fraction] 27.2 % Low 34.0-46.0 [facility] Comment on above: Performed By: #### M RSAPCR #### [place] [address] Hgb 8.9 G/dL Low 12.0-16.0 [facility] Comment on above: Performed By: #### M RSAPCR #### [place] [id number] MCH (RBC) [Entitic mass] 31.9 pg Normal 27.0-33.0 [facility] Comment on above: Performed By: #### M RSAPCR #### [place] [address] MCHC 32.8 G/dL Normal 32.0-36.0 [facility] Comment on above: Performed By: #### M RSAPCR #### [place] [id number] MCV (RBC) [Entitic vol] 97.1 fL Normal 80.0-99.0 [facility] Comment on above: Performed By: #### M RSAPCR #### [place] [id number] Platelet 205 10 3/mcL Normal 150-450 [facility] Comment on above: Performed By: #### M RSAPCR #### [address] [address] Platelet mean volume (Bld) [Entitic vol] 10.3 fL Normal 6.6-10.5 [facility] Comment on above: Performed By: #### M RSAPCR #### [address] [address] RBC 2.80 10 6/mcL Low 4.10-5.30 [facility] Comment on above: Performed By: #### M RSAPCR #### [address] [address] WBC 11.1 10 3/mcL High 4.5-10.8 [facility] Comment on above: Performed By: #### M RSAPCR #### [place] [address] LABORATORYOrdered By: SYSTEM SYSTEM on 08-05-2024 Basophils [...] 08-04-2024 ABO/Rh Interp Positive Invalid Interpretation Code [facility] Comment on above: Performed By: #### M RSAPCR #### [address] [address] ABS (Gel)on 08-04-2024 ABSC Interp (Gel) Negative Normal [facility] Comment on above: Performed By: #### M RSAPCR #### [address] [address] LABORATORYOrdered By: Komal Vega on 08-04-2024 ABO and Rh group Nom (Bld) Blood group A Rh(D) positive Invalid Interpretation Code AO BB Auto SS Blood group antibody screen Ql Negative ABSC (08/04/24 9:38 AM) Normal AO BB Auto SS XR FLUORO 1-2 HRS TECH TIMEo n 08-04-2024 XR FLUORO 1-2 HRS TECH TIME ORIGINAL Images acquired, not reported on this accession number. Normal [facility] XR HIP LEFT W/PELVIS 4 VIEWS on [...] 1:20:15 PM Ordering Provider: MAGED PEDRO Normal [facility] MRSAPCRon 07-15-2024 MRSA (PCR) Not detected Normal Not Detected [facility] Comment on above: Result Comment: [place] [id number] Performed By: #### M RSAPCR #### [place] [address] MRSA PCR Int Normal [facility] Comment on above: Result Comment: MRSA DNA [...] Below Performed By: #### M RSAPCR #### [place] [address] .Auto Diffon 07-14-2024 Basophil, Absolute 0.0 10 3/mcL Normal 0.0-0.2 [facility] Comment on above: Performed By: #### A LAW, ALB, CBC, BMP, ADIFF, GFR, ABOGEL, ABSGEL #### [address] [address] Basophils/100 WBC (Bld) 0.3 % Normal 0.0-2.5 [facility] Comment on above: Performed By: #### A LAW, ALB, CBC, BMP, ADIFF, GFR, ABOGEL, ABSGEL #### [address] [address] Eosinophil, Absolute 0.2 10 3/mcL Normal 0.0-0.7 [facility] Comment on above: Performed By: #### A LAW, ALB, CBC, BMP, ADIFF, GFR, ABOGEL, ABSGEL #### [address] [address] Eosinophils/100 WBC (Bld) 2.9 % Normal 0.0-7.0 [facility] Comment on above: Performed By: #### A LAW, ALB, CBC, BMP, ADIFF, GFR, ABOGEL, ABSGEL #### [address] [address] Lymphocyte, Absolute 1.5 10 3/mcL Normal 0.9-4.3 [facility] Comment on above: Performed By: #### A LAW, ALB, CBC, BMP, ADIFF, GFR, ABOGEL, ABSGEL #### [address] [address] Lymphocytes/100 WBC (Bld) 25.5 % Normal 20.0-40.0 [facility] Comment on above: Performed By: #### A LAW, ALB, CBC, BMP, ADIFF, GFR, ABOGEL, ABSGEL #### [address] [address] Monocyte, Absolute 0.6 10 3/mcL Normal 0.1-1.4 [facility] Comment on above: Performed By: #### A LAW, ALB, CBC, BMP, ADIFF, GFR, ABOGEL, ABSGEL #### [address] [address] Monocytes/100 WBC (Bld) 10.1 % Normal 2.0-13.0 [facility] Comment on above: Performed By: #### A LAW, ALB, CBC, BMP, ADIFF, GFR, ABOGEL, ABSGEL #### [address] [address] Neutrophils/100 WBC (Bld) 61.2 % Normal 50.0-75.0 [facility] Comment on above: Performed By: #### A LAW, ALB, CBC, BMP, ADIFF, GFR, ABOGEL, ABSGEL #### [address] [address] .GFRon 07-14-2024 GFR 51 ml/min/1.73sqm Normal [facility] Comment on above: Result Comment: GFR Population [...] CBC, BMP, ADIFF, GFR, ABOGEL, ABSGEL #### [place] [id number] [place], [place] [address] GFR Non- 42 ml/min/1.73sqm Normal [facility] Comment on above: Result Comment: GFR Population [...] CBC, BMP, ADIFF, GFR, ABOGEL, ABSGEL #### [address] [address] .NEUABSon 07-14-2024 Neutrophil, Absolute 3.5 10 3/mcL Normal 2.3-8.1 [facility] Comment on above: Performed By: #### A LAW, ALB, CBC, BMP, ADIFF, GFR, ABOGEL, ABSGEL #### [address] [address] ABO/Rh (Gel)on 07-14-2024 ABO/Rh Interp Positive Invalid Interpretation Code [facility] Comment on above: Performed By: #### A LAW, ALB, CBC, BMP, ADIFF, GFR, ABOGEL, ABSGEL #### [address] [address] ABS (Gel)on 07-14-2024 ABSC Interp (Gel) Negative Normal [facility] Comment on above: Performed By: #### A LAW, ALB, CBC, BMP, ADIFF, GFR, ABOGEL, ABSGEL #### [address] [address] ALBon 07-14-2024 Albumin Level 3.8 G/dL Normal 3.4-4.8 [facility] Comment on above: Performed By: #### A LAW, ALB, CBC, BMP, ADIFF, GFR, ABOGEL, ABSGEL #### [address] [address] BMPon 07-14-2024 BUN/Creatinine Ratio 9 ratio Normal 7-27 [facility] Comment on above: Performed By: #### A LAW, ALB, CBC, BMP, ADIFF, GFR, ABOGEL, ABSGEL #### [address] [address] Calcium [Mass/Vol] 9.8 mg/dL Normal 8.4-10.2 [facility] Comment on above: Performed By: #### A LAW, ALB, CBC, BMP, ADIFF, GFR, ABOGEL, ABSGEL #### [address] [address] Chloride [Moles/Vol] 105 mmol/L Normal 98-107 [facility] Comment on above: Performed By: #### A LAW, ALB, CBC, BMP, ADIFF, GFR, ABOGEL, ABSGEL #### [address] [address] CO2 [Moles/Vol] 27 mmol/L Normal 23-31 [facility] Comment on above: Performed By: #### A LAW, ALB, CBC, BMP, ADIFF, GFR, ABOGEL, ABSGEL #### [address] [address] Creatinine [Mass/Vol] 1.26 mg/dL High 0.55-1.02 [facility] Comment on above: Result Comment: Test ing performed on Siemens Dimension EXL analyzer using a modified kinetic Loan technique. Performed By: #### A LAW, ALB, CBC, BMP, ADIFF, GFR, ABOGEL, ABSGEL #### [address] [address] Electrolyte Balance 7.0 mEq/L Normal 4.0-15.0 [facility] Comment on above: Performed By: #### A LAW, ALB, CBC, BMP, ADIFF, GFR, ABOGEL, ABSGEL #### [address] [address] Glucose [Mass/Vol] 85 mg/dL Normal 83-110 [facility] Comment on above: Performed By: #### A LAW, ALB, CBC, BMP, ADIFF, GFR, ABOGEL, ABSGEL #### [address] [address] Potassium [Moles/Vol] 4.4 mmol/L Normal 3.5-5.1 [facility] Comment on above: Performed By: #### A LAW, ALB, CBC, BMP, ADIFF, GFR, ABOGEL, ABSGEL #### [address] [address] Sodium [Moles/Vol] 139 mmol/L Normal 136-145 [facility] Comment on above: Performed By: #### A LAW, ALB, CBC, BMP, ADIFF, GFR, ABOGEL, ABSGEL #### [place] [id number] Urea nitrogen [Mass/Vol] 11 mg/dL Normal 7-18 [facility] Comment on above: Performed By: #### A LAW, ALB, CBC, BMP, ADIFF, GFR, ABOGEL, ABSGEL #### [place] [id number] CBCon 07-14-2024 Erythrocyte distribution width (RBC) [Ratio] 17.4 % High 11.5-15.5 [facility] Comment on above: Order Comment: Pre-A dmission Testing Performed By: #### A LAW, ALB, CBC, BMP, ADIFF, GFR, ABOGEL, ABSGEL #### [address] [address] Hematocrit (Bld) [Volume fraction] 33.1 % Low 34.0-46.0 [facility] Comment on above: Order Comment: Pre-A dmission Testing Performed By: #### A LAW, ALB, CBC, BMP, ADIFF, GFR, ABOGEL, ABSGEL #### [address] [address] Hgb 11.0 G/dL Low 12.0-16.0 [facility] Comment on above: Order Comment: Pre-A dmission Testing Performed By: #### A LAW, ALB, CBC, BMP, ADIFF, GFR, ABOGEL, ABSGEL #### [address] [address] MCH (RBC) [Entitic mass] 31.7 pg Normal 27.0-33.0 [facility] Comment on above: Order Comment: Pre-A dmission Testing Performed By: #### A LAW, ALB, CBC, BMP, ADIFF, GFR, ABOGEL, ABSGEL #### [address] [address] MCHC 33.1 G/dL Normal 32.0-36.0 [facility] Comment on above: Order Comment: Pre-A dmission Testing Performed By: #### A LAW, ALB, CBC, BMP, ADIFF, GFR, ABOGEL, ABSGEL #### [address] [address] MCV (RBC) [Entitic vol] 95.7 fL Normal 80.0-99.0 [facility] Comment on above: Order Comment: Pre-A dmission Testing Performed By: #### A LAW, ALB, CBC, BMP, ADIFF, GFR, ABOGEL, ABSGEL #### [address] [address] Platelet 226 10 3/mcL Normal 150-450 [facility] Comment on above: Order Comment: Pre-A dmission Testing Performed By: #### A LAW, ALB, CBC, BMP, ADIFF, GFR, ABOGEL, ABSGEL #### [address] [address] Platelet mean volume (Bld) [Entitic vol] 10.1 fL Normal 6.6-10.5 [facility] Comment on above: Order Comment: Pre-A dmission Testing Performed By: #### A LAW, ALB, CBC, BMP, ADIFF, GFR, ABOGEL, ABSGEL #### [address] [address] RBC 3.46 10 6/mcL Low 4.10-5.30 [facility] Comment on above: Order Comment: Pre-A dmission Testing Performed By: #### A LAW, ALB, CBC, BMP, ADIFF, GFR, ABOGEL, ABSGEL #### [address] [address] WBC 5.8 10 3/mcL Normal 4.5-10.8 [facility] Comment on above: Order Comment: Pre-A dmission Testing Performed By: #### A LAW, ALB, CBC, BMP, ADIFF, GFR, ABOGEL, ABSGEL #### [place] [address] [place], [place] [address] LABORATORYOrdered By: Wilma Lawler on 07-14-2024 ABO [...] 06-25-2024 CNPN Telephone (HEMSTEPHANIE) -------- HERB VALDES ([id number]) 1955 F Date Time Provider Department 06/25/24 [...] not feel comfortable doing her surgery at [facility] so he recommended a referral to a [facility] orthopedic surgeon. We could refer her to see someone at [place] or [facility]. Soonest appointment would be best. Tell her [...] Pedro does not feel comfortable doing at [facility].JESSICA Kraus Stephanie 06/26/2024 11:17 AM Signed [...] call. Please call 's cell phone at [phone] when able tonight so Herb can still have surgery tomorrow. Maribeth Flores Tracy Olmedo LPN 08/03/2024 4:[address] Pedro would like to speak with you today concerning surgical clearance for tomorrow. cell number [phone] please call. JESSICA Serna Paul A, DO [...] [M87.052] Order(s):CONSULT TO ORTHOPAEDICS [9026] Order #: [id number]: 1 FUTURE Prescriptions as of 08/04/2024 - [...] SO (more content not included)... Normal [facility] BETA 2 GLYCOPROTEIN, IGGon 0 06-17-2024 Beta 2 glycoprotein 1 IgG IA Qn <9 Normal <20 [facility] Comment on above: Order Comment: Speci men Type: BLOOD SPECIMEN Ordering Facility: [facility] Address: [address] [place] [address] Result Comment: <20 SGU Negative 20-80 SGU Low Positive >80 SGU High Positive These results were obtained with the Amimonva QUANTA Lite B2 GPI IgG ARNULFO. B2 GPI IgG values obtained with different manufacturers' assay methods may not be used interchangeably. The magnitude of the reported IgG levels cannot be correlated to an endpoint titer. Performed By: #### B ETAErnst, FREEDOMGISRA, JEAN, 5076-5 #### [facility] CLIA [id number] [address] [place] [address] [place] BETA 2 GLYCOPROTEIN, IGMon 0 06-17-2024 Beta 2 glycoprotein 1 IgM IA Qn 13 SMU Normal <20 [facility] Comment on above: Order Comment: Asaf reyna Type: BLOOD SPECIMEN Ordering Facility: [facility] Address: [address] [place] [address] Result Comment: <20 SMU Negative 20-80 [facility]U [...] B ETA2M, BETA2G, CARDIRanjit, CARDI, 5076-5 #### [facility] CLIA [id number] [address] [place] [address] [place] CARDIOLIPIN IGG ABSon 2023 Cardiolipin IgG IA Qn (S) <9.0 Normal <15.0 [facility] Comment on above: Order Comment: Asaf reyna Type: BLOOD SPECIMEN Ordering Facility: [facility] Address: [address] [place] [address] Result Comment: <15 GPL Negative 15-20 GPL [...] B ETA2M, BETA2G, CARDIRanjit, CARDI, 5076-5 #### [facility] CLIA [id number] [address] [place] [address] [place] CARDIOLIPIN IGM ABSon 2023 Cardiolipin IgM IA Qn (S) 14.6 MPL High <12.5 [facility] Comment on above: Order Comment: Asaf reyna Type: BLOOD SPECIMEN Ordering Facility: [facility] Address: [address] [place] [address] Result Comment: <12. 5 MPL Negative 12.5-20 [...] B MASOOD NICHOLE CARDIM, CARDIG, 5076-5 #### [facility] CLIA [id number] [address] [place] [address] OF [facility] CNOVSPon 06-17-2024 CNOVSP Visit (SP) Office (HEMAWS) -------- HERB VALDES ([id number]) 1955 F Date Time Provider Department 06/17/24 [...] She was taken to the ED at [facility] on 04/19/2020 for 4 complaints of [...] was then taken to the ED at [facility] that night. CTA of the chest [...] interlobar septal thickening. She was transferred to [facility]. She was also diagnosed with E. coli bladder infection and septicemia, chronic kidney disease stage III, anemia and hyponatremia that resolved at the time of discharge. She self discontinued apixaban on May 27 or May 28 because she wants to have the hip replacement surgery. [facility] Maged [facility]. Denies cough and shortness of breath presently. Was advised to use a walker but isn't. 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 Normal [facility] Cardiolipin IgA Ser IA-aCnco n 06-17-2024 Cardiolipin IgA IA Qn (S) <9.0 Normal <12.0 [facility] Comment on above: Order Comment: Speci men Type: BLOOD SPECIMEN Ordering Facility: [facility] Address: [address] [place] [address] Result Comment: <12 APL Negative 12-20 APL Indeterminate >20 APL Positive The following results were obtained with the Amimonva QUANTA Lite GUI IgA III ARNULFO. Cardiolipin IgA values obtained with the different manufacturers' assay methods may not be used interchangeably. The magnitude of the reported IgA levels cannot be correlated to an endpoint titer. Performed By: #### B ETA2M, BETA2G, CARDIRanjit, CARDITara, 5076-5 #### [facility] CLIA [id number] [address] [place] [address] [place] D dimer FEU PPP-mCncon 06-17 Fibrin D-dimer FEU (PPP) [Mass/Vol] 1260 ng/mL FEU High <500 [facility] Comment on above: Order Comment: Speci men Type: BLOOD SPECIMENOrdering Facility: [facility] Address: [address] [place] [address] Result Comment: Froz en Plasma Aliquot Performed By: #### 4 8065-7 ####[facility]IA [id number] [facility] [id number] OF [facility] [id number] [address] OF [facility]#### 61868-5, 61859-0 ####[facility] [id number] [address] OF [facility] D-DIMEROrdered By: Lien herrera on 06-17-2024 Fibrin D-dimer FEU (PPP) [Mass/Vol] 1260 High [facility] Comment on above: Frozen Plasma Aliquo t Fibrin D-dimer FEU (PPP) [Ma ss/Vol]Ordered By: Lien Art on 06-17-2024 D Dimer Age-related Cutoff 700 ng/mL FEU [facility] Interpretation and review of laboratory results Abnormal [facility] 500 ng/mL FEU is the D Dimer [...] et al. [facility] Int Med 2016 165:253. [facility] Fibrin D-dimer FEU (PPP) [Ma ss/Vol]on 06-17-2024 D DIMER AGE-RELATED CUTOFF 700 ng/mL FEU Normal [facility] Comment on above: Order Comment: Speci men Type: BLOOD SPECIMENOrdering Facility: [facility] Address: [address] [place] [address] Performed By: #### 4 8065-7 ####[facility] LABCLIA [id number] [place] [id number] [place] [address] [place]#### 81516-9, 71573-2 ####[facility] [id number] [place] [address] [place] LUPUS PANELon 06-17-2024 aPTT Coag (Bld) [Time] 42.1 s Normal 30.2-43.0 [facility] Comment on above: Order Comment: Speci men Type: BLOOD SPECIMENOrdering Facility: [facility] Address: [address] [place] [address] Performed By: #### L UPPL ####[facility] LABCLIA [id number] [address] [place] aPTT Coag (Bld) [Time] 36.2 s Normal 31.5-38.3 [facility] Comment on above: Order Comment: Speci men Type: BLOOD SPECIMENOrdering Facility: [facility] Address: [address] [place] [address] Performed By: #### L UPPL ####[facility] LABIA [id number] [place] [id number] [place] aPTT Coag (Bld) [Time] 34.3 s Normal 24.0-35.1 [facility] Comment on above: Order Comment: Speci men Type: BLOOD SPECIMENOrdering Facility: [facility] Address: [address] [place] [address] Performed By: #### L UPPL ####[facility] LABCLIA [id number] [place] [address] [place] aPTT W excess hexagonal phase phospholipid Coag (PPP) [Time] 48.9 seconds Normal 34.0-51.8 [facility] Comment on above: Order Comment: Speci men Type: BLOOD SPECIMENOrdering Facility: [facility] Address: [address] [place] [address] Performed By: #### L UPPL ####[facility] LABCLIA [id number] [place] [address] [place] Coagulation factor X activated act Coag Qn (PPP) <0.10 Normal <0.10 [facility] Comment on above: Order Comment: Speci men Type: BLOOD SPECIMENOrdering Facility: [facility] Address: [address] [place] [address] Result Comment: This test was developed and its performance characteristics determined by [facility]'s [facility] E[facility] ([facility]). It has not been cleared or approved by the FDA. RT-PLMI is regulated under CLIA as qualified to perform high-complexity testing. This test is used for clinical purposes. It should not be regarded as investigational or for research. Performed By: #### L UPPL ####[facility] LABCLIA [id number] [address] [place] Delta dRVVT Coag (PPP) [Time diff] 0.7 delta seconds Normal <7.1 [facility] Comment on above: Order Comment: Speci men Type: BLOOD SPECIMENOrdering Facility: [facility] Address: [address] [place] [address] Performed By: #### L UPPL ####[facility] LABW[facility] [id number] [place] [address] [place] dRVVT Coag (PPP) [Time] 42.9 s Normal 32.0-45.7 [facility] Comment on above: Order Comment: Speci men Type: BLOOD SPECIMENOrdering Facility: [facility] Address: [address] [place] [address] Performed By: #### L UPPL ####[facility] [id number] [place] [address] [place] dRVVT factor substitution immediately after 1:2 addition of normal plasma Coag (PPP) [Time] 37.7 seconds Normal 32.0-45.7 [facility] Comment on above: Order Comment: Speci men Type: BLOOD SPECIMENOrdering Facility: [facility] Address: [address] [place] [address] Performed By: #### L UPPL ####[facility] [id number] [place] [address] [place] dRVVT W excess hexagonal phase phospholipid actual/normal Coag (PPP) [Relative time] 48.2 seconds High 34.2-47.9 [facility] Comment on above: Order Comment: Speci men Type: BLOOD SPECIMENOrdering Facility: [facility] Address: [address] [place] [address] Performed By: #### L UPPL ####[facility] [id number] [place] [address] [place] dRVVT/dRVVT.excess phospholipid Coag (PPP) [Ratio] 1.10 Normal <1.32 [facility] Comment on above: Order Comment: Speci men Type: BLOOD SPECIMENOrdering Facility: [facility] Address: [address] [place] [address] Performed By: #### L UPPL ####[facility] [id number] [place] [address] [place] PLATELET NEUT 0.0 Seconds Normal <1.9 [facility] Comment on above: Order Comment: Asaf reyna Type: BLOOD SPECIMENOrdering Facility: [facility] Address: [address] [place] [address] Performed By: #### L UPPL ####[facility] LABCLIA [id number] [address] [place] Thrombin time Coag (PPP) [Time] 17.8 seconds Normal <18.6 [facility] Comment on above: Order Comment: Asaf reyna Type: BLOOD SPECIMENOrdering Facility: [facility] Address: [address] [place] [address] Performed By: #### L UPPL ####[facility] LABCLIA [id number] [address] [place] PT panel Coag (PPP)on 2023 INR Coag (PPP) [Relative time] 1.0 {INR} Normal 0.9-1.3 [facility] Comment on above: Order Comment: Asaf reyna Type: BLOOD SPECIMEN Ordering Facility: [facility] Address: [address] [place] [address] Result Comment: Adri min K Antagonist (VKA) Therapeutic Range: INR 2 to 3 (Target INR of 2.5) Note: For patients treated with VKA drugs, such as warfarin, the [place] [employer] 2012 Guideline recommends [...] Chest 2012, 141:7S-47S Huseyin RA, et al. [facility] 2017, 70: 252-289 Performed By: #### 4 8065-7 #### [facility] CLIA [id number] [address] [place] [address] [place] [facility] CLIA [id number] [address] [place] [address] [place] #### 22328-1, 19031-0 #### [facility] CLIA [id number] [address] [place] [address] [place] PT Coag (PPP) [Time] 10.5 s Normal <13.1 [facility] Comment on above: Order Comment: Speci men Type: BLOOD SPECIMEN Ordering Facility: [facility] Address: [address] [place] [address] Performed By: #### 4 8065-7 #### [facility] CLIA [id number] [address] [place] [address] [place] [facility] CLIA [id number] [address] [place] [address] [place] #### 92166-4, 18787-1 #### [facility] CLIA [id number] [address] [place] [address] [place] aPTT PPPon 06-17-2024 aPTT Coag (PPP) [Time] 26.8 s Normal 23.0-32.4 [facility] Comment on above: Order Comment: Speci men Type: BLOOD SPECIMEN Ordering Facility: [facility] Address: [address] [place] [address] Performed By: #### 4 8065-7 #### [facility] CLIA [id number] [address] [place] [address] [place] [facility] CLIA [id number] [address] [place] [address] #### 47572-7, 16061-8 #### [facility] CLIA [id number] [address] [place] [address] [place] MYOCARDIAL SPECT STRESS/R ESTon 06-02-2024 NM [...] Date: 06/02/2024 12:32:18 PM Ordering Provider:Velma [facility] ([place] No Panel Informationon 05-16 Culture Urine 10,000 - 50,000 cfu/ ml Mixed growth consistent with normal urogenital katelynn. [facility] .Auto Diffon 04-30-2024 Basophil, Absolute 0.1 10 3/mcL Normal 0.0-0.3 [facility] ([place]) Comment on above: Performed By: #### C BC, BMP, ADIFF, ANEU, GFR ####[address] [address] Basophils/100 WBC (Bld) 0.6 % Normal 0.0-2.5 [facility] ([place] Comment on above: Performed By: #### C BC, BMP, ADIFF, ANEU, GFR ####[address] [address] Eosinophil, Absolute 0.0 10 3/mcL Normal 0.0-0.7 [facility] ([place]) Comment on above: Performed By: #### C BC, BMP, ADIFF, ANEU, GFR ####[address] [address] Eosinophils/100 WBC (Bld) 0.2 % Normal 0.0-6.0 [facility] ([place] Comment on above: Performed By: #### C BC, BMP, ADIFF, ANEU, GFR ####[address] [address] Lymphocyte, Absolute 1.4 10 3/mcL Normal 0.9-4.3 [facility] ([place] Comment on above: Performed By: #### C BC, BMP, ADIFF, ANEU, GFR ####[address] [address] Lymphocytes/100 WBC (Bld) 9.1 % Low 20.0-40.0 [facility] ([place] Comment on above: Performed By: #### C BC, BMP, ADIFF, ANEU, GFR ####[address] [address] Monocyte, Absolute 0.6 10 3/mcL Normal 0.1-1.4 [facility] ([place] Comment on above: Performed By: #### C BC, BMP, ADIFF, ANEU, GFR ####[address] [address] Monocytes/100 WBC (Bld) 4.3 % Normal 2.0-13.0 [facility] ([place] Comment on above: Performed By: #### C BC, BMP, ADIFF, ANEU, GFR ####[address] [address] Neutrophils/100 WBC (Bld) 85.8 % High 50.0-75.0 [facility] ([place] Comment on above: Performed By: #### C BC, BMP, ADIFF, ANEU, GFR ####[address] [address] .CRYBF Path Reviewon 024 CRYPF Path Review Negative Normal [facility] ([place]) Comment on above: Result Comment: Elec tronically signed by: MICHAEL SKINNER 04.30.2024 13:49 EDT Performed By: #### C RYBFPR, CRYBF, SYNCT ####[place] [address] .GFRon 04-30-2024 GFR >60 Normal [facility] ([place] Comment on above: Result Comment: GFR Population [...] #### C BC, BMP, ADIFF, ANEU, GFR ####[address] [address] GFR Non- >60 Normal [facility] ([place] Comment on above: Result Comment: GFR Population [...] #### C BC, BMP, ADIFF, ANEU, GFR ####[address] [address] .NEUABSon 04-30-2024 Neutrophil, Absolute 12.9 10 3/mcL High 2.3-8.1 [facility] ([place]) Comment on above: Performed By: #### C BC, BMP, ADIFF, ANEU, GFR ####[place] [address] BMPon 04-30-2024 BUN/Creatinine Ratio 10.0 ratio Normal 10.0-22.0 [facility] ([place] Comment on above: Performed By: #### C BC, BMP, ADIFF, ANEU, GFR ####[place] [address] Calcium [Mass/Vol] 8.5 mg/dL Low 8.7-10.4 [facility] ([place]) Comment on above: Performed By: #### C BC, BMP, ADIFF, ANEU, GFR ####[place] [address] Chloride [Moles/Vol] 100 mmol/L Normal 98-110 [facility] ([place]) Comment on above: Performed By: #### C BC, BMP, ADIFF, ANEU, GFR ####[place] [address] CO2 [Moles/Vol] 27 mmol/L Normal 22-32 [facility] ([place]) Comment on above: Performed By: #### C BC, BMP, ADIFF, ANEU, GFR ####[place] [address] Creatinine [Mass/Vol] 0.70 mg/dL Normal 0.50-1.20 [facility] ([place] Comment on above: Performed By: #### C BC, BMP, ADIFF, ANEU, GFR ####[place] [address] Electrolyte Balance 12.0 mEq/L Normal 4.0-15.0 [facility] ([place]) Comment on above: Performed By: #### C BC, BMP, ADIFF, ANEU, GFR ####[place] [address] Glucose [Mass/Vol] 157 mg/dL High 82-115 [facility] ([place]) Comment on above: Performed By: #### C BC, BMP, ADIFF, ANEU, GFR ####[place] [address] Potassium [Moles/Vol] 3.6 mmol/L Normal 3.5-5.0 [facility] ([place] Comment on above: Performed By: #### C BC, BMP, ADIFF, ANEU, GFR ####[place] [address] Sodium [Moles/Vol] 139 mmol/L Normal 136-145 [facility] ([place]) Comment on above: Performed By: #### C BC, BMP, ADIFF, ANEU, GFR ####[place] [address] Urea nitrogen [Mass/Vol] 7.0 mg/dL Low 8.0-22.0 [facility] ([place] Comment on above: Performed By: #### C BC, BMP, ADIFF, ANEU, GFR ####[place] [address] CBCon 04-30-2024 Erythrocyte distribution width (RBC) [Ratio] 17.9 % High 11.5-15.5 [facility] ([place] Comment on above: Performed By: #### C BC, BMP, ADIFF, ANEU, GFR ####[place] [address] Hematocrit (Bld) [Volume fraction] 32.8 % Low 34.0-46.0 [facility] ([place] Comment on above: Performed By: #### C BC, BMP, ADIFF, ANEU, GFR ####[place] [address] Hgb 10.9 G/dL Low 12.0-16.0 [facility] ([place] Comment on above: Performed By: #### C BC, BMP, ADIFF, ANEU, GFR ####[place] [address] MCH (RBC) [Entitic mass] 31.3 pg Normal 27.0-33.0 [facility] ([place] Comment on above: Performed By: #### C BC, BMP, ADIFF, ANEU, GFR ####[place] [address] MCHC 33.2 G/dL Normal 32.0-36.0 [facility] ([place] Comment on above: Performed By: #### C BC, BMP, ADIFF, ANEU, GFR ####[place] [address] MCV (RBC) [Entitic vol] 94.3 fL Normal 80.0-99.0 [facility] ([place] Comment on above: Performed By: #### C BC, BMP, ADIFF, ANEU, GFR ####[place] [address] Platelet 353 10 3/mcL Normal 150-450 [facility] ([place]) Comment on above: Performed By: #### C BC, BMP, ADIFF, ANEU, GFR ####[place] [address] Platelet mean volume (Bld) [Entitic vol] 9.1 fL Normal 6.6-10.5 [facility] ([place]) Comment on above: Performed By: #### C BC, BMP, ADIFF, ANEU, GFR ####[place] [address] RBC 3.48 10 6/mcL Low 4.10-5.30 [facility] ([place]) Comment on above: Performed By: #### C BC, BMP, ADIFF, ANEU, GFR ####[place] [address] WBC 15.0 10 3/mcL High 4.5-10.8 [facility] ([place]) Comment on above: Performed By: #### C BC, BMP, ADIFF, ANEU, GFR ####[place] [address] LABORATORYOrdered By: SYSTEM SYSTEM on 04-30-2024 Basophils [...] Workflow SS .GFRon 04-29-2024 GFR >60 Normal [facility] ([place]) Comment on above: Result Comment: GFR Population [...] H FP, BMP, MORPH, CBC, DIFF, GFR ####[place] [address] GFR Non- >60 Normal [facility] ([place] Comment on above: Result Comment: GFR Population [...] H FP, BMP, MORPH, CBC, DIFF, GFR ####[address] [address] .Manual Diffon 04-29-2024 Bands 2.0 % Normal 0.0-5.0 [facility] ([place] Comment on above: Performed By: #### H FP, BMP, MORPH, CBC, DIFF, GFR ####[place] [address] Basophil %, Manual 0.0 % Normal 0.0-2.5 [facility] ([place]) Comment on above: Performed By: #### H FP, BMP, MORPH, CBC, DIFF, GFR ####[place] [address] Basophil, Abs Manual 0.0 10 3/mcL Normal 0.0-0.3 [facility] ([place]) Comment on above: Performed By: #### H FP, BMP, MORPH, CBC, DIFF, GFR ####[place] [address] Eosinophil %, Manual 2.0 % Normal 0.0-6.0 [facility] ([place] Comment on above: Performed By: #### H FP, BMP, MORPH, CBC, DIFF, GFR ####[place] [address] Eosinophil, Abs Manual 0.3 10 3/mcL Normal 0.0-0.7 [facility] [place] Comment on above: Performed By: #### H FP, BMP, MORPH, CBC, DIFF, GFR ####[place] [address] Lymphocyte %, Manual 5.0 % Low 20.0-40.0 [facility] ([place]) Comment on above: Performed By: #### H FP, BMP, MORPH, CBC, DIFF, GFR ####[address] [address] Lymphocyte, Abs Manual 0.9 10 3/mcL Normal 0.9-4.3 [facility] [place] Comment on above: Performed By: #### H FP, BMP, MORPH, CBC, DIFF, GFR ####[place] [address] Monocyte %, Manual 4.0 % Normal 2.0-13.0 [facility] ([place]) Comment on above: Performed By: #### H FP, BMP, MORPH, CBC, DIFF, GFR ####[place] [address] Monocyte, Abs Manual 0.7 10 3/mcL Normal 0.1-1.4 [facility] ([place]) Comment on above: Performed By: #### H FP, BMP, MORPH, CBC, DIFF, GFR ####[address] [address] Myelocyte 1.0 % Normal [facility] [place] Comment on above: Performed By: #### H FP, BMP, MORPH, CBC, DIFF, GFR ####[address] [address] Neutrophil %, Manual 86.0 % High 50.0-75.0 [facility] ([place] Comment on above: Performed By: #### H FP, BMP, MORPH, CBC, DIFF, GFR ####[address] [address] Neutrophil, Abs Manual 15.5 10 3/mcL High 2.3-8.1 [facility] [place] Comment on above: Performed By: #### H FP, BMP, MORPH, CBC, DIFF, GFR ####[address] [address] Nucleated RBC 0.0 /100 WBC Normal [facility] ([place]) Comment on above: Performed By: #### H FP, BMP, MORPH, CBC, DIFF, GFR ####[place] [address] .Morphon 04-29-2024 Anisocytosis Ql (Bld) 1+ Normal [facility] [place] Comment on above: Performed By: #### H FP, BMP, MORPH, CBC, DIFF, GFR ####[place] [address] Large Platelets Few Normal [facility] ([place] Comment on above: Performed By: #### H FP, BMP, MORPH, CBC, DIFF, GFR ####[place] [address] Ovalocytes 1+ Normal [facility] [place] Comment on above: Performed By: #### H FP, BMP, MORPH, CBC, DIFF, GFR ####[place] [address] Platelet Estimate Normal Normal [facility] ([place] Comment on above: Performed By: #### H FP, BMP, MORPH, CBC, DIFF, GFR ####[place] [address] Poik 1+ Normal [facility] [place] Comment on above: Performed By: #### H FP, BMP, MORPH, CBC, DIFF, GFR ####[place] [address] Polychrom 1+ Normal [facility] [place] Comment on above: Performed By: #### H FP, BMP, MORPH, CBC, DIFF, GFR ####[place] [address] Tear Cell 1+ Normal [facility] [place] Comment on above: Performed By: #### H FP, BMP, MORPH, CBC, DIFF, GFR ####[place] [address] Toxic Gran 1+ [facility] ([place] Comment on above: Performed By: #### H FP, BMP, MORPH, CBC, DIFF, GFR ####[place] [address] BMPon 04-29-2024 BUN/Creatinine Ratio 10.5 ratio Normal 10.0-22.0 [facility] ([place] Comment on above: Performed By: #### H FP, BMP, MORPH, CBC, DIFF, GFR ####[address] [address] Calcium [Mass/Vol] 8.3 mg/dL Low 8.7-10.4 [facility] ([place] Comment on above: Performed By: #### H FP, BMP, MORPH, CBC, DIFF, GFR ####[place] [address] Chloride [Moles/Vol] 108 mmol/L Normal 98-110 [facility] ([place] Comment on above: Performed By: #### H FP, BMP, MORPH, CBC, DIFF, GFR ####[place] [address] CO2 [Moles/Vol] 27 mmol/L Normal 22-32 [facility] ([place] Comment on above: Performed By: #### H FP, BMP, MORPH, CBC, DIFF, GFR ####[place] [address] Creatinine [Mass/Vol] 0.86 mg/dL Normal 0.50-1.20 [facility] [place] Comment on above: Performed By: #### H FP, BMP, MORPH, CBC, DIFF, GFR ####[address] [address] Electrolyte Balance 6.0 mEq/L Normal 4.0-15.0 [facility] ([place] Comment on above: Performed By: #### H FP, BMP, MORPH, CBC, DIFF, GFR ####[address] [address] Glucose [Mass/Vol] 92 mg/dL Normal 82-115 [facility] ([place]) Comment on above: Performed By: #### H FP, BMP, MORPH, CBC, DIFF, GFR ####[place] [address] Potassium [Moles/Vol] 3.5 mmol/L Normal 3.5-5.0 [facility] [place] Comment on above: Performed By: #### H FP, BMP, MORPH, CBC, DIFF, GFR ####[place] [address] Sodium [Moles/Vol] 141 mmol/L Normal 136-145 [facility] ([place]) Comment on above: Performed By: #### H FP, BMP, MORPH, CBC, DIFF, GFR ####[place] [address] Urea nitrogen [Mass/Vol] 9.0 mg/dL Normal 8.0-22.0 [facility] [place] Comment on above: Performed By: #### H FP, BMP, MORPH, CBC, DIFF, GFR ####[place] [address] CBCon 04-29-2024 Erythrocyte distribution width (RBC) [Ratio] 17.3 % High 11.5-15.5 [facility] [place] Comment on above: Performed By: #### H FP, BMP, MORPH, CBC, DIFF, GFR ####[place] [address] Hematocrit (Bld) [Volume fraction] 30.6 % Low 34.0-46.0 [facility] [place] Comment on above: Performed By: #### H FP, BMP, MORPH, CBC, DIFF, GFR ####[place] [address] Hgb 10.2 G/dL Low 12.0-16.0 [facility] [place] Comment on above: Performed By: #### H FP, BMP, MORPH, CBC, DIFF, GFR ####[place] [address] MCH (RBC) [Entitic mass] 31.5 pg Normal 27.0-33.0 [facility] [place] Comment on above: Performed By: #### H FP, BMP, MORPH, CBC, DIFF, GFR ####[place] [address] MCHC 33.3 G/dL Normal 32.0-36.0 [facility] [place] Comment on above: Performed By: #### H FP, BMP, MORPH, CBC, DIFF, GFR ####[place] [address] MCV (RBC) [Entitic vol] 94.7 fL Normal 80.0-99.0 [facility] [place] Comment on above: Performed By: #### H FP, BMP, MORPH, CBC, DIFF, GFR ####[place] [address] Platelet 337 10 3/mcL Normal 150-450 [facility] ([place]) Comment on above: Performed By: #### H FP, BMP, MORPH, CBC, DIFF, GFR ####[place] [address] Platelet mean volume (Bld) [Entitic vol] 9.0 fL Normal 6.6-10.5 [facility] ([place]) Comment on above: Performed By: #### H FP, BMP, MORPH, CBC, DIFF, GFR ####[place] [address] RBC 3.23 10 6/mcL Low 4.10-5.30 [facility] ([place]) Comment on above: Performed By: #### H FP, BMP, MORPH, CBC, DIFF, GFR ####[place] [address] WBC 17.7 10 3/mcL High 4.5-10.8 [facility] ([place]) Comment on above: Performed By: #### H FP, BMP, MORPH, CBC, DIFF, GFR ####[place] [address] CRYBFon 04-29-2024 Crystal BF Sp Synovial fluid Normal [facility] ([place] Comment on above: Order Comment: Left hip synovial fluid IR aspiration Performed By: #### C RYBFPR, CRYBF, SYNCT ####[place] [address] HFPon 04-29-2024 Bili Indirect 0.2 mg/dL Normal 0.1-10.0 [facility] ([place]) Comment on above: Performed By: #### H FP, BMP, MORPH, CBC, DIFF, GFR ####[place] [address] Albumin Level 2.1 G/dL Low 3.2-4.8 [facility] ([place]) Comment on above: Performed By: #### H FP, BMP, MORPH, CBC, DIFF, GFR ####[address] [address] Albumin/Globulin [Mass ratio] 0.6 {ratio} Low 0.9-1.6 [facility] [place] Comment on above: Performed By: #### H FP, BMP, MORPH, CBC, DIFF, GFR ####[place] [address] ALP [Catalytic activity/Vol] 276 U/L High 38-126 [facility] [place] Comment on above: Performed By: #### H FP, BMP, MORPH, CBC, DIFF, GFR ####[place] [address] ALT [Catalytic activity/Vol] 110 U/L High 10-49 [facility] [place] Comment on above: Performed By: #### H FP, BMP, MORPH, CBC, DIFF, GFR ####[place] [address] AST [Catalytic activity/Vol] 74 U/L High 8-34 [facility] ([place] Comment on above: Performed By: #### H FP, BMP, MORPH, CBC, DIFF, GFR ####[place] [address] Bili Direct 0.2 mg/dL Normal 0.0-0.4 [facility] ([place]) Comment on above: Result Comment: Use of this assay is not recommended for patients undergoing treatment with eltrombopag due to the potential for falsely elevated results. Performed By: #### H FP, BMP, MORPH, CBC, DIFF, GFR ####[place] [address] Bili Total 0.40 mg/dL Normal 0.20-1.20 [facility] [place] Comment on above: Result Comment: Use of this assay is not recommended for patients undergoing treatment with eltrombopag due to the potential for falsely elevated results. Performed By: #### H FP, BMP, MORPH, CBC, DIFF, GFR ####[facility] [place] [address] Globulin 3.6 G/dL Normal 1.5-3.8 [facility] ([place] Comment on above: Performed By: #### H FP, BMP, MORPH, CBC, DIFF, GFR ####[place] [id number] [place] [address] Total Protein 5.7 G/dL Normal 5.7-8.2 [facility] ([place]) Comment on above: Result Comment: No te - New Reference Range in effect 20 Performed By: #### H FP, BMP, MORPH, CBC, DIFF, GFR ####[place] [id number] [place] [address] LABORATORYOrdered By: Tracy Champion on 04-29-2024 Appearance [...] (S/P/Bld) [Vol rate/Area] ml/min/1.73sqm Invalid Interpretation Code Appsee Chemistry S Comment on above: Interpretive Data: [...] (S/P/Bld) [Vol rate/Area] ml/min/1.73sqm Invalid Interpretation Code Appsee Chemistry S Comment on above: Interpretive Data: [...] Culture Body Fluid No growth to date [facility] GS Unsedimented No organisms seen. [facility] SYNCTon 04-29-2024 Cells Counted (synovial) 100 Normal [facility] ([place] Comment on above: Order Comment: Left hip synovial fluid IR aspiration Performed By: #### C MANUEL CRYBF, SYNCT ####[facility] [place] [address] Lymphocytes/100 WBC (Bld) 14 % Normal [facility] ([place]) Comment on above: Order Comment: Left hip synovial fluid IR aspiration Performed By: #### C MANUEL, CRYBF, SYNCT ####[address] [address] Mononuclear Cell % (synovial) 10 % Normal [facility] [place] Comment on above: Order Comment: Left hip synovial fluid IR aspiration Performed By: #### C RYBFPR, CRYBF, SYNCT ####[address] [address] Neutrophils/100 WBC (Bld) 75 % High 0-24 [facility] ([place] Comment on above: Order Comment: Left hip synovial fluid IR aspiration Performed By: #### C RYBFPR, CRYBF, SYNCT ####[address] [address] Synovial Lining Cell (synovial) 1 % Normal [facility] [place] Comment on above: Order Comment: Left hip synovial fluid IR aspiration Performed By: #### C RYBFPR, CRYBF, SYNCT ####[address] [address] Clarity (U) Cloudy Normal [facility] ([place]) Comment on above: Order Comment: Left hip synovial fluid IR aspiration Performed By: #### C RYBFPR, CRYBF, SYNCT ####[address] [address] Color (U) Colorless Normal [facility] ([place] Comment on above: Order Comment: Left hip synovial fluid IR aspiration Performed By: #### C RYBFPR, CRYBF, SYNCT ####[address] [address] Comment (synovial) See Below Normal [facility] ([place]) Comment on above: Order Comment: Left hip synovial fluid IR aspiration Result Comment: Cell count is approximate due to debris and/or cell clumps seen. Performed By: #### C RYBFPR, CRYBF, SYNCT ####[address] [address] White Blood Cells (synovial) 270 /mm3 High 0-199 [facility] [place] Comment on above: Order Comment: Left hip synovial fluid IR aspiration Performed By: #### C RYBFPR, CRYBF, SYNCT ####[address] [address] .GFRon 04-28-2024 GFR >60 Normal [facility] ([place]) Comment on above: Result Comment: GFR Population [...] #### B MP, DIFF, CBC, GFR, MORPH ####[address] [address] GFR Non- 60 ml/min/1.73sqm Normal [facility] [place] Comment on above: Result Comment: GFR Population [...] #### B MP, DIFF, CBC, GFR, MORPH ####[address] [address] .Manual Diffon 04-28-2024 Basophil %, Manual 0.0 % Normal 0.0-2.5 [facility] ([place]) Comment on above: Performed By: #### B MP, DIFF, CBC, GFR, MORPH ####[address] [address] Basophil, Abs Manual 0.0 10 3/mcL Normal 0.0-0.3 [facility] ([place] Comment on above: Performed By: #### B MP, DIFF, CBC, GFR, MORPH ####[address] [address] Eosinophil %, Manual 1.0 % Normal 0.0-6.0 [facility] ([place] Comment on above: Performed By: #### B MP, DIFF, CBC, GFR, MORPH ####[address] [address] Eosinophil, Abs Manual 0.2 10 3/mcL Normal 0.0-0.7 [facility] [place] Comment on above: Performed By: #### B MP, DIFF, CBC, GFR, MORPH ####[address] [address] Lymphocyte %, Manual 8.0 % Low 20.0-40.0 [facility] ([place] Comment on above: Performed By: #### B MP, DIFF, CBC, GFR, MORPH ####[address] [address] Lymphocyte, Abs Manual 1.5 10 3/mcL Normal 0.9-4.3 [facility] [place] Comment on above: Performed By: #### B MP, DIFF, CBC, GFR, MORPH ####[address] [address] Monocyte %, Manual 4.0 % Normal 2.0-13.0 [facility] ([place] Comment on above: Performed By: #### B MP, DIFF, CBC, GFR, MORPH ####[address] [address] Monocyte, Abs Manual 0.8 10 3/mcL Normal 0.1-1.4 [facility] ([place] Comment on above: Performed By: #### B MP, DIFF, CBC, GFR, MORPH ####[address] [address] Myelocyte 2.0 % Normal [facility] [place] Comment on above: Performed By: #### B MP, DIFF, CBC, GFR, MORPH ####[place] [address] Neutrophil %, Manual 85.0 % High 50.0-75.0 [facility] ([place] Comment on above: Performed By: #### B MP, DIFF, CBC, GFR, MORPH ####[place] [address] Neutrophil, Abs Manual 16.4 10 3/mcL High 2.3-8.1 [facility] [place] Comment on above: Performed By: #### B MP, DIFF, CBC, GFR, MORPH ####[place] [address] Nucleated RBC 1.0 /100 WBC Normal [facility] ([place] Comment on above: Performed By: #### B MP, DIFF, CBC, GFR, MORPH ####[place] [address] .Morphon 04-28-2024 Anisocytosis Ql (Bld) 1+ Normal [facility] [place] Comment on above: Performed By: #### B MP, DIFF, CBC, GFR, MORPH ####[place] [address] Hypochrom 1+ Normal [facility] [place] Comment on above: Performed By: #### B MP, DIFF, CBC, GFR, MORPH ####[place] [address] Ovalocytes 1+ Normal [facility] [place] Comment on above: Performed By: #### B MP, DIFF, CBC, GFR, MORPH ####[place] [address] Platelet Estimate Normal Normal [facility] ([place] Comment on above: Performed By: #### B MP, DIFF, CBC, GFR, MORPH ####[place] [address] Poik 1+ Normal [facility] [place] Comment on above: Performed By: #### B MP, DIFF, CBC, GFR, MORPH ####[place] [address] Polychrom 1+ Normal [facility] [place] Comment on above: Performed By: #### B MP, DIFF, CBC, GFR, MORPH ####[place] [address] BMPon 04-28-2024 BUN/Creatinine Ratio 10.8 ratio Normal 10.0-22.0 [facility] ([place] Comment on above: Performed By: #### B MP, DIFF, CBC, GFR, MORPH ####[place] [address] Calcium [Mass/Vol] 8.2 mg/dL Low 8.7-10.4 [facility] ([place] Comment on above: Performed By: #### B MP, DIFF, CBC, GFR, MORPH ####[place] [address] Chloride [Moles/Vol] 109 mmol/L Normal 98-110 [facility] ([place] Comment on above: Performed By: #### B MP, DIFF, CBC, GFR, MORPH ####[place] [address] CO2 [Moles/Vol] 24 mmol/L Normal 22-32 [facility] ([place] Comment on above: Performed By: #### B MP, DIFF, CBC, GFR, MORPH ####[place] [address] Creatinine [Mass/Vol] 0.93 mg/dL Normal 0.50-1.20 [facility] [place] Comment on above: Performed By: #### B MP, DIFF, CBC, GFR, MORPH ####[place] [address] Electrolyte Balance 8.0 mEq/L Normal 4.0-15.0 [facility] ([place] Comment on above: Performed By: #### B MP, DIFF, CBC, GFR, MORPH ####[place] [address] Glucose [Mass/Vol] 75 mg/dL Low 82-115 [facility] ([place] Comment on above: Performed By: #### B MP, DIFF, CBC, GFR, MORPH ####[address] [address] Potassium [Moles/Vol] 3.6 mmol/L Normal 3.5-5.0 [facility] [place] Comment on above: Performed By: #### B MP, DIFF, CBC, GFR, MORPH ####[address] [address] Sodium [Moles/Vol] 141 mmol/L Normal 136-145 [facility] ([place] Comment on above: Performed By: #### B MP, DIFF, CBC, GFR, MORPH ####[place] [address] Urea nitrogen [Mass/Vol] 10.0 mg/dL Normal 8.0-22.0 [facility] [place] Comment on above: Performed By: #### B MP, DIFF, CBC, GFR, MORPH ####[place] [address] CBCon 04-28-2024 Erythrocyte distribution width (RBC) [Ratio] 17.6 % High 11.5-15.5 [facility] [place] Comment on above: Performed By: #### B MP, DIFF, CBC, GFR, MORPH ####[place] [address] Hematocrit (Bld) [Volume fraction] 27.2 % Low 34.0-46.0 [facility] [place] Comment on above: Performed By: #### B MP, DIFF, CBC, GFR, MORPH ####[place] [address] Hgb 9.2 G/dL Low 12.0-16.0 [facility] [place] Comment on above: Performed By: #### B MP, DIFF, CBC, GFR, MORPH ####[place] [address] MCH (RBC) [Entitic mass] 32.2 pg Normal 27.0-33.0 [facility] [place] Comment on above: Performed By: #### B MP, DIFF, CBC, GFR, MORPH ####[place] [address] MCHC 33.9 G/dL Normal 32.0-36.0 [facility] [place] Comment on above: Performed By: #### B MP, DIFF, CBC, GFR, MORPH ####[place] [address] MCV (RBC) [Entitic vol] 94.9 fL Normal 80.0-99.0 [facility] [place] Comment on above: Performed By: #### B MP, DIFF, CBC, GFR, MORPH ####[place] [address] Platelet 318 10 3/mcL Normal 150-450 [facility] ([place] Comment on above: Performed By: #### B MP, DIFF, CBC, GFR, MORPH ####[place] [address] Platelet mean volume (Bld) [Entitic vol] 9.4 fL Normal 6.6-10.5 [facility] ([place] Comment on above: Performed By: #### B MP, DIFF, CBC, GFR, MORPH ####[place] [address] RBC 2.86 10 6/mcL Low 4.10-5.30 [facility] ([place] Comment on above: Performed By: #### B MP, DIFF, CBC, GFR, MORPH ####[place] [address] WBC 19.4 10 3/mcL High 4.5-10.8 [facility] ([place] Comment on above: Performed By: #### B MP, DIFF, CBC, GFR, MORPH ####[place] [address] LABORATORYOrdered By: SYSTEM SYSTEM on 04-28-2024 Anisocytosis [...] (S/P/Bld) [Vol rate/Area] ml/min/1.73sqm Invalid Interpretation Code Appsee Chemistry S Comment on above: Interpretive Data: [...] [Vol rate/Area] 60 ml/min/1.73sqm Invalid Interpretation Code Appsee Chemistry S Comment on above: Interpretive Data: [...] .GFRon 04-27-2024 GFR Non- 57 ml/min/1.73sqm Normal [facility] [place] Comment on above: Result Comment: GFR Population [...] ORT, GFR, TSHR, MORPH, BMP, CBC, DIFF ####[address] [address] GFR >60 Normal [facility] ([place] Comment on above: Result Comment: GFR Population [...] ORT, GFR, TSHR, MORPH, BMP, CBC, DIFF ####[place] [address] .Manual Diffon 04-27-2024 Bands 1.0 % Normal 0.0-5.0 [facility] [place] Comment on above: Performed By: #### C ORT, GFR, TSHR, MORPH, BMP, CBC, DIFF ####[place] [address] Basophil %, Manual 0.0 % Normal 0.0-2.5 [facility] ([place] Comment on above: Performed By: #### C ORT, GFR, TSHR, MORPH, BMP, CBC, DIFF ####[place] [id number] Basophil, Abs Manual 0.0 10 3/mcL Normal 0.0-0.3 [facility] ([place] Comment on above: Performed By: #### C ORT, GFR, TSHR, MORPH, BMP, CBC, DIFF ####[place] [address] Eosinophil %, Manual 2.0 % Normal 0.0-6.0 [facility] ([place] Comment on above: Performed By: #### C ORT, GFR, TSHR, MORPH, BMP, CBC, DIFF ####[address] [address] Eosinophil, Abs Manual 0.4 10 3/mcL Normal 0.0-0.7 [facility] [place] Comment on above: Performed By: #### C ORT, GFR, TSHR, MORPH, BMP, CBC, DIFF ####[place] [id number] Lymphocyte %, Manual 4.0 % Low 20.0-40.0 [facility] ([place] Comment on above: Performed By: #### C ORT, GFR, TSHR, MORPH, BMP, CBC, DIFF ####[address] [address] Lymphocyte, Abs Manual 0.9 10 3/mcL Normal 0.9-4.3 [facility] [place] Comment on above: Performed By: #### C ORT, GFR, TSHR, MORPH, BMP, CBC, DIFF ####[place] [address] Metamyelocyte 1.0 % Normal [facility] ([place]) Comment on above: Performed By: #### C ORT, GFR, TSHR, MORPH, BMP, CBC, DIFF ####[place] [address] Monocyte %, Manual 2.0 % Normal 2.0-13.0 [facility] ([place] Comment on above: Performed By: #### C ORT, GFR, TSHR, MORPH, BMP, CBC, DIFF ####[address] [address] Monocyte, Abs Manual 0.5 10 3/mcL Normal 0.1-1.4 [facility] ([place] Comment on above: Performed By: #### C ORT, GFR, TSHR, MORPH, BMP, CBC, DIFF ####[address] [address] Neutrophil %, Manual 90.0 % High 50.0-75.0 [facility] ([place] Comment on above: Performed By: #### C ORT, GFR, TSHR, MORPH, BMP, CBC, DIFF ####[place] [address] Neutrophil, Abs Manual 20.2 10 3/mcL High 2.3-8.1 [facility] [place] Comment on above: Performed By: #### C ORT, GFR, TSHR, MORPH, BMP, CBC, DIFF ####[place] [address] Nucleated RBC 0.0 /100 WBC Normal [facility] ([place] Comment on above: Performed By: #### C ORT, GFR, TSHR, MORPH, BMP, CBC, DIFF ####[place] [address] .Morphon 04-27-2024 Anisocytosis Ql (Bld) 1+ Normal [facility] [place] Comment on above: Performed By: #### C ORT, GFR, TSHR, MORPH, BMP, CBC, DIFF ####[place] [address] Ovalocytes 1+ Normal [facility] [place] Comment on above: Performed By: #### C ORT, GFR, TSHR, MORPH, BMP, CBC, DIFF ####[place] [address] Platelet Estimate Normal Normal [facility] [place] Comment on above: Performed By: #### C ORT, GFR, TSHR, MORPH, BMP, CBC, DIFF ####[place] [address] Poik 1+ Normal [facility] [place] Comment on above: Performed By: #### C ORT, GFR, TSHR, MORPH, BMP, CBC, DIFF ####[place] [address] BMPon 04-27-2024 BUN/Creatinine Ratio 13.5 ratio Normal 10.0-22.0 [facility] ([place] Comment on above: Performed By: #### C ORT, GFR, TSHR, MORPH, BMP, CBC, DIFF ####[place] [address] Calcium [Mass/Vol] 8.0 mg/dL Low 8.7-10.4 [facility] ([place] Comment on above: Performed By: #### C ORT, GFR, TSHR, MORPH, BMP, CBC, DIFF ####[address] [address] Chloride [Moles/Vol] 109 mmol/L Normal 98-110 [facility] ([place] Comment on above: Performed By: #### C ORT, GFR, TSHR, MORPH, BMP, CBC, DIFF ####[address] [address] CO2 [Moles/Vol] 24 mmol/L Normal 22-32 [facility] ([place] Comment on above: Performed By: #### C ORT, GFR, TSHR, MORPH, BMP, CBC, DIFF ####[address] [address] Creatinine [Mass/Vol] 0.96 mg/dL Normal 0.50-1.20 [facility] [place] Comment on above: Performed By: #### C ORT, GFR, TSHR, MORPH, BMP, CBC, DIFF ####[address] [address] Electrolyte Balance 5.0 mEq/L Normal 4.0-15.0 [facility] ([place] Comment on above: Performed By: #### C ORT, GFR, TSHR, MORPH, BMP, CBC, DIFF ####[address] [address] Glucose [Mass/Vol] 81 mg/dL Low 82-115 [facility] ([place] Comment on above: Performed By: #### C ORT, GFR, TSHR, MORPH, BMP, CBC, DIFF ####[address] [address] Potassium [Moles/Vol] 3.6 mmol/L Normal 3.5-5.0 [facility] [place] Comment on above: Performed By: #### C ORT, GFR, TSHR, MORPH, BMP, CBC, DIFF ####[address] [address] Sodium [Moles/Vol] 138 mmol/L Normal 136-145 [facility] ([place] Comment on above: Performed By: #### C ORT, GFR, TSHR, MORPH, BMP, CBC, DIFF ####[place] [address] Urea nitrogen [Mass/Vol] 13.0 mg/dL Normal 8.0-22.0 [facility] [place] Comment on above: Performed By: #### C ORT, GFR, TSHR, MORPH, BMP, CBC, DIFF ####[place] [address] CBCon 04-27-2024 Erythrocyte distribution width (RBC) [Ratio] 17.7 % High 11.5-15.5 [facility] [place] Comment on above: Performed By: #### C ORT, GFR, TSHR, MORPH, BMP, CBC, DIFF ####[place] [address] Hematocrit (Bld) [Volume fraction] 25.1 % Low 34.0-46.0 [facility] [place] Comment on above: Performed By: #### C ORT, GFR, TSHR, MORPH, BMP, CBC, DIFF ####[place] [address] Hgb 8.3 G/dL Low 12.0-16.0 [facility] [place] Comment on above: Performed By: #### C ORT, GFR, TSHR, MORPH, BMP, CBC, DIFF ####[place] [address] MCH (RBC) [Entitic mass] 31.4 pg Normal 27.0-33.0 [facility] Comment on above: Performed By: #### C ORT, GFR, TSHR, MORPH, BMP, CBC, DIFF ####[place] [address] MCHC 33.3 G/dL Normal 32.0-36.0 [facility] Comment on above: Performed By: #### C ORT, GFR, TSHR, MORPH, BMP, CBC, DIFF ####[place] [address] MCV (RBC) [Entitic vol] 94.4 fL Normal 80.0-99.0 [facility] [facility] [place] Comment on above: Performed By: #### C ORT, GFR, TSHR, MORPH, BMP, CBC, DIFF ####[place] [address] Platelet 298 10 3/mcL Normal 150-450 [facility] ([place]) Comment on above: Performed By: #### C ORT, GFR, TSHR, MORPH, BMP, CBC, DIFF ####[place] [address] Platelet mean volume (Bld) [Entitic vol] 9.7 fL Normal 6.6-10.5 [facility] ([place]) Comment on above: Performed By: #### C ORT, GFR, TSHR, MORPH, BMP, CBC, DIFF ####[place] [address] RBC 2.66 10 6/mcL Low 4.10-5.30 [facility] ([place]) Comment on above: Performed By: #### C ORT, GFR, TSHR, MORPH, BMP, CBC, DIFF ####[place] [address] WBC 22.3 10 3/mcL High 4.5-10.8 [facility] ([place]) Comment on above: Performed By: #### C ORT, GFR, TSHR, MORPH, BMP, CBC, DIFF ####[place] [address] CORTon 04-27-2024 Cortisol Level 21.0 mcg/dL Normal [facility] ([place]) Comment on above: Result Comment: Jelani isol AM Reference Range 6.5-26.0 mcg/dL Cortisol PM Reference Range 3.5-15.0 mcg/dL Performed By: #### C ORT, GFR, TSHR, MORPH, BMP, CBC, DIFF ####[place] [address] CT ABDOMEN/PELVIS W/CONTRAST on 04-27-2024 CT ABDOMEN/PELVIS [...] 04/27/2024 8:45:58 PM Ordering Provider: AGUILAR [facility] ([place]) LABORATORYOrdered By: SYSTEM SYSTEM on 04-27-2024 Anisocytosis [...] TSHRon 04-27-2024 TSH 4.494 mIU/mL Normal 0.550-4.780 [facility] ([place]) Comment on above: Result Comment: No te - New Reference Range in effect 20 Performed By: #### C ORT, GFR, TSHR, MORPH, BMP, CBC, DIFF ####[address] [address] .GFRon 04-26-2024 GFR Non- 51 ml/min/1.73sqm [facility] ([place] Comment on above: Result Comment: GFR Population [...] #### C BC, BMP, DIFF, GFR, MORPH ####[address] [address] GFR >60 Normal [facility] ([place]) Comment on above: Result Comment: GFR Population [...] #### C BC, BMP, DIFF, GFR, MORPH ####[place] [address] .Manual Diffon 04-26-2024 Bands 1.0 % Normal 0.0-5.0 [facility] [place] Comment on above: Performed By: #### C BC, BMP, DIFF, GFR, MORPH ####[place] [address] Basophil %, Manual 0.0 % Normal 0.0-2.5 [facility] ([place]) Comment on above: Performed By: #### C BC, BMP, DIFF, GFR, MORPH ####[place] [address] Basophil, Abs Manual 0.0 10 3/mcL Normal 0.0-0.3 [facility] ([place]) Comment on above: Performed By: #### C BC, BMP, DIFF, GFR, MORPH ####[place] [address] Eosinophil %, Manual 2.0 % Normal 0.0-6.0 [facility] ([place] Comment on above: Performed By: #### C BC, BMP, DIFF, GFR, MORPH ####[place] [address] Eosinophil, Abs Manual 0.5 10 3/mcL Normal 0.0-0.7 [facility] [place] Comment on above: Performed By: #### C BC, BMP, DIFF, GFR, MORPH ####[place] [address] Lymphocyte %, Manual 5.0 % Low 20.0-40.0 [facility] ([place] Comment on above: Performed By: #### C BC, BMP, DIFF, GFR, MORPH ####[address] [address] Lymphocyte, Abs Manual 1.3 10 3/mcL Normal 0.9-4.3 [facility] [place] Comment on above: Performed By: #### C BC, BMP, DIFF, GFR, MORPH ####[address] [address] Metamyelocyte 1.0 % Normal [facility] ([place] Comment on above: Performed By: #### C BC, BMP, DIFF, GFR, MORPH ####[address] [address] Monocyte %, Manual 3.0 % Normal 2.0-13.0 [facility] ([place]) Comment on above: Performed By: #### C BC, BMP, DIFF, GFR, MORPH ####[address] [address] Monocyte, Abs Manual 0.8 10 3/mcL Normal 0.1-1.4 [facility] ([place] Comment on above: Performed By: #### C BC, BMP, DIFF, GFR, MORPH ####[address] [address] Neutrophil %, Manual 88.0 % High 50.0-75.0 [facility] ([place] Comment on above: Performed By: #### C BC, BMP, DIFF, GFR, MORPH ####[address] [address] Neutrophil, Abs Manual 23.7 10 3/mcL High 2.3-8.1 [facility] [place] Comment on above: Performed By: #### C BC, BMP, DIFF, GFR, MORPH ####[address] [address] Nucleated RBC 1.0 /100 WBC Normal [facility] ([place] Comment on above: Performed By: #### C BC, BMP, DIFF, GFR, MORPH ####[place] [address] .Morphon 04-26-2024 Anisocytosis Ql (Bld) 1+ Normal [facility] [place] Comment on above: Performed By: #### C BC, BMP, DIFF, GFR, MORPH ####[place] [address] Ovalocytes 1+ Normal [facility] [place] Comment on above: Performed By: #### C BC, BMP, DIFF, GFR, MORPH ####[place] [address] Platelet Estimate Normal Normal [facility] ([place] Comment on above: Performed By: #### C BC, BMP, DIFF, GFR, MORPH ####[place] [address] Poik 1+ Normal [facility] [place] Comment on above: Performed By: #### C BC, BMP, DIFF, GFR, MORPH ####[place] [address] Toxic Gran 1+ Normal [facility] [place] Comment on above: Performed By: #### C BC, BMP, DIFF, GFR, MORPH ####[place] [address] APTTon 04-26-2024 aPTT Coag (Bld) [Time] 55.4 s High 25.0-35.0 [facility] ([place] Comment on above: Result Comment: For Heparin anticoagulation therapy, the recommended therapeutic range is: 54-77 seconds (APTT Correlation with Anti-Xa therapeutic range of 0.3-0.7 units/ml). PLEASE REFERENCE THE PHARMACY PROTOCOL FOR DOSING. Performed By: #### C BC, BMP, DIFF, GFR, MORPH ####[place] [address] Heparin dose (APTT) Heparin IV Normal [facility] ([place] Comment on above: Performed By: #### C BC, BMP, DIFF, GFR, MORPH ####[place] [address] BMPon 04-26-2024 BUN/Creatinine Ratio 17.0 ratio Normal 10.0-22.0 [facility] ([place] Comment on above: Performed By: #### C BC, BMP, DIFF, GFR, MORPH ####[address] [address] Calcium [Mass/Vol] 8.3 mg/dL Low 8.7-10.4 [facility] ([place]) Comment on above: Performed By: #### C BC, BMP, DIFF, GFR, MORPH ####[place] [id number] Chloride [Moles/Vol] 105 mmol/L Normal 98-110 [facility] ([place]) Comment on above: Performed By: #### C BC, BMP, DIFF, GFR, MORPH ####[address] [address] CO2 [Moles/Vol] 23 mmol/L Normal 22-32 [facility] ([place]) Comment on above: Performed By: #### C BC, BMP, DIFF, GFR, MORPH ####[place] [address] Creatinine [Mass/Vol] 1.06 mg/dL Normal 0.50-1.20 [facility] [place] Comment on above: Performed By: #### C BC, BMP, DIFF, GFR, MORPH ####[address] [address] Electrolyte Balance 8.0 mEq/L Normal 4.0-15.0 [facility] ([place] Comment on above: Performed By: #### C BC, BMP, DIFF, GFR, MORPH ####[address] [address] Glucose [Mass/Vol] 87 mg/dL Normal 82-115 [facility] ([place]) Comment on above: Performed By: #### C BC, BMP, DIFF, GFR, MORPH ####[address] [address] Potassium [Moles/Vol] 3.6 mmol/L Normal 3.5-5.0 [facility] [place] Comment on above: Performed By: #### C BC, BMP, DIFF, GFR, MORPH ####[place] [address] Sodium [Moles/Vol] 136 mmol/L Normal 136-145 [facility] ([place]) Comment on above: Performed By: #### C BC, BMP, DIFF, GFR, MORPH ####[place] [address] Urea nitrogen [Mass/Vol] 18.0 mg/dL Normal 8.0-22.0 [facility] ([place] Comment on above: Performed By: #### C BC, BMP, DIFF, GFR, MORPH ####[place] [address] CBCon 04-26-2024 Erythrocyte distribution width (RBC) [Ratio] 17.6 % High 11.5-15.5 [facility] ([place] Comment on above: Performed By: #### C BC, BMP, DIFF, GFR, MORPH ####[place] [address] Hematocrit (Bld) [Volume fraction] 27.5 % Low 34.0-46.0 [facility] ([place] Comment on above: Performed By: #### C BC, BMP, DIFF, GFR, MORPH ####[place] [address] Hgb 9.0 G/dL Low 12.0-16.0 [facility] ([place] Comment on above: Performed By: #### C BC, BMP, DIFF, GFR, MORPH ####[place] [address] MCH (RBC) [Entitic mass] 31.1 pg Normal 27.0-33.0 [facility] ([place] Comment on above: Performed By: #### C BC, BMP, DIFF, GFR, MORPH ####[place] [address] MCHC 32.7 G/dL Normal 32.0-36.0 [facility] [place] Comment on above: Performed By: #### C BC, BMP, DIFF, GFR, MORPH ####[place] [address] MCV (RBC) [Entitic vol] 94.9 fL Normal 80.0-99.0 [facility] ([place] Comment on above: Performed By: #### C BC, BMP, DIFF, GFR, MORPH ####[address] [address] Platelet 276 10 3/mcL Normal 150-450 [facility] ([place]) Comment on above: Performed By: #### C BC, BMP, DIFF, GFR, MORPH ####[place] [address] Platelet mean volume (Bld) [Entitic vol] 10.0 fL Normal 6.6-10.5 [facility] ([place]) Comment on above: Performed By: #### C BC, BMP, DIFF, GFR, MORPH ####[place] [address] RBC 2.89 10 6/mcL Low 4.10-5.30 [facility] ([place]) Comment on above: Performed By: #### C BC, BMP, DIFF, GFR, MORPH ####[place] [address] WBC 26.7 10 3/mcL High 4.5-10.8 [facility] ([place]) Comment on above: Performed By: #### C BC, BMP, DIFF, GFR, MORPH ####[address] [address] LABORATORYOrdered By: Juan on 04-26-2024 aPTT Coag [...] 04/26/2024 1:56:29 PM Ordering Provider: EL[facility]ABETH [facility] ([place]) XR ABDOMEN 2 VIEWS W/ DECUB/ ERECTon [...] 04/26/2024 3:24:13 PM Ordering Provider: AGUILAR [facility] ([place]) .GFRon 04-25-2024 GFR Non- 42 ml/min/1.73sqm [facility] ([place] Comment on above: Result Comment: GFR Population [...] meters Performed By: #### G FR, BMP ####[place] [address] GFR 51 ml/min/1.73sqm Normal [facility] ([place] Comment on above: Result Comment: GFR Population [...] meters Performed By: #### G FR, BMP ####[place] [id number] .Manual Diffon 04-25-2024 Bands 1.0 % Normal 0.0-5.0 [facility] ([place] Comment on above: Performed By: #### M ORPH, DIFF, CBC ####[address] [address] Basophil %, Manual 0.0 % Normal 0.0-2.5 [facility] ([place]) Comment on above: Performed By: #### M ORPH, DIFF, CBC ####[address] [address] Basophil, Abs Manual 0.0 10 3/mcL Normal 0.0-0.3 [facility] ([place] Comment on above: Performed By: #### M ORPH, DIFF, CBC ####[address] [address] Eosinophil %, Manual 1.0 % Normal 0.0-6.0 [facility] ([place] Comment on above: Performed By: #### M ORPH, DIFF, CBC ####[address] [address] Eosinophil, Abs Manual 0.2 10 3/mcL Normal 0.0-0.7 [facility] [place] Comment on above: Performed By: #### M ORPH, DIFF, CBC ####[address] [address] Lymphocyte %, Manual 11.0 % Low 20.0-40.0 [facility] ([place] Comment on above: Performed By: #### M ORPH, DIFF, CBC ####[address] [address] Lymphocyte, Abs Manual 2.7 10 3/mcL Normal 0.9-4.3 [facility] [place] Comment on above: Performed By: #### M ORPH, DIFF, CBC ####[address] [address] Monocyte %, Manual 1.0 % Low 2.0-13.0 [facility] ([place] Comment on above: Performed By: #### M ORPH, DIFF, CBC ####[address] [address] Monocyte, Abs Manual 0.2 10 3/mcL Normal 0.1-1.4 [facility] ([place] Comment on above: Performed By: #### M ORPH, DIFF, CBC ####[place] [address] Neutrophil %, Manual 86.0 % High 50.0-75.0 [facility] ([place] Comment on above: Performed By: #### M ORPH, DIFF, CBC ####[place] [address] Neutrophil, Abs Manual 20.9 10 3/mcL High 2.3-8.1 [facility] [place] Comment on above: Performed By: #### M ORPH, DIFF, CBC ####[place] [address] Nucleated RBC 0.0 /100 WBC Normal [facility] ([place] Comment on above: Performed By: #### M ORPH, DIFF, CBC ####[place] [address] .Morphon 04-25-2024 Anisocytosis Ql (Bld) 1+ Normal [facility] [place] Comment on above: Performed By: #### M ORPH, DIFF, CBC ####[place] [address] Ovalocytes 1+ Normal [facility] [place] Comment on above: Performed By: #### M ORPH, DIFF, CBC ####[place] [address] Platelet Estimate Normal Normal [facility] ([place] Comment on above: Performed By: #### M ORPH, DIFF, CBC ####[place] [address] Poik 1+ Normal [facility] ([place] Comment on above: Performed By: #### M ORPH, DIFF, CBC ####[place] [address] Polychrom 1+ Normal [facility] [place] Comment [place] above: Performed By: #### M ORPH, DIFF, CBC ####[place] [address] ABO/Rh (Gel)on 04-25-2024 ABO/Rh Interp Positive Invalid Interpretation Code [facility] [place] Comment [place]: Performed By: #### A JEF ASHFORD ####[place] [address] ABS (Gel)on 04-25-2024 ABSC Interp (Gel) Negative Normal [facility] ([place] Comment [place]: Performed By: #### A JEF ASHFORD ####[place] [address] APTTon 04-25-2024 aPTT Coag (Bld) [Time] 54.6 s High 25.0-35.0 [facility] [place] Comment [place] above: Result Comment: For Heparin anticoagulation therapy, the recommended therapeutic range is: 54-77 seconds (APTT Correlation with Anti-Xa therapeutic range of 0.3-0.7 units/ml). PLEASE REFERENCE THE PHARMACY PROTOCOL FOR DOSING. Heparin dose (APTT) Heparin IV Normal [facility] ([place]) aPTT Coag (Bld) [Time] 65.7 s High 25.0-35.0 [facility] [place] Comment on above: Result Comment: For Heparin anticoagulation therapy, the recommended therapeutic range is: 54-77 seconds (APTT Correlation with Anti-Xa therapeutic range of 0.3-0.7 units/ml). PLEASE REFERENCE THE PHARMACY PROTOCOL FOR DOSING. Heparin dose (APTT) Heparin IV Normal [facility] ([place] aPTT Coag (Bld) [Time] 74.8 s High 25.0-35.0 [facility] [place] Comment on above: Result Comment: For Heparin anticoagulation therapy, the recommended therapeutic range is: 54-77 seconds (APTT Correlation with Anti-Xa therapeutic range of 0.3-0.7 units/ml). PLEASE REFERENCE THE PHARMACY PROTOCOL FOR DOSING. Performed By: ###FAIZAN NIXON ####[place] [address] Heparin dose (APTT) Heparin IV Normal [facility] ([place] Comment on above: Performed By: #### FAIZAN LAMB ####[place] [address] BCIDon 04-25-2024 Acinetobacter michi-baumanii complex Not detected Normal Not Detected [facility] ([place] Comment on above: Performed By: #### B JARET ####[place] [address] Bacteroides fragilis Not detected Normal Not Detected [facility] [place] Comment [place]: Performed By: #### B JARET ####[place] [address] BCID Comment See Comment Normal [facility] ([place]) Comment on above: Result Comment: [...] to follow. Performed By: #### B JARET ####[place] [address] Virginie albicans Not detected Normal Not Detected [facility] ([place] Comment on above: Performed By: #### B JARET ####[place] [address] Virginie auris Not detected Normal Not Detected [facility] [place] Comment [place]: Performed By: #### B JARET ####[place] [address] Virginie glabrata Not detected Normal Not Detected [facility] [place] Comment [place]: Performed By: #### B JARET ####[place] [address] Virginie krusei Not detected Normal Not Detected [facility] [place] Comment [place] above: Performed By: #### B JARET ####[place] [address] Virginie parapsilosis Not detected Normal Not Detected [facility] [place] Comment [place] above: Performed By: #### B JARET ####[place] [address] Virginie tropicalis Not detected Normal Not Detected [facility] [place] Comment [place]: Performed By: #### B JARET ####[address] [place] [address] Cryptococcus neoformans-gattii Not detected Normal Not Detected [facility] ([place] Comment on above: Performed By: #### B JARET ####[place] [address] CTX-M (ESBL) Not detected Normal Not Detected [facility] [place] Comment [place]: Performed By: #### B JARET ####[place] [address] E. Coli Detected Abnormal Not Detected [facility] [place] Comment [place]: Performed By: #### B JARET ####[place] [address] Enterobacter cloacae Complex Not detected Normal Not Detected [facility] [place] Comment [place] above: Performed By: #### B JARET ####[place] [address] Enterobacterales Detected Abnormal Not Detected [facility] [place] Comment [place]: Performed By: #### B JARET ####[place] [address] Enterococcus faecalis Not detected Normal Not Detected [facility] [place] Comment [place] above: Performed By: #### B JARET ####[place] [address] Enterococcus faecium Not detected Normal Not Detected [facility] [place] Comment [place] above: Performed By: #### B JARET ####[place] [address] Haemophilus influenzae Not detected Normal Not Detected [facility] [place] Comment [place] above: Performed By: #### B JARET ####[place] [address] IMP (Carbapenemase) Not detected Normal Not Detected [facility] [place] Comment [place]: Performed By: #### B JARET ####[place] [address] Klebsiella aerogenes Not detected Normal Not Detected [facility] [place] Comment [place]: Performed By: #### B JARET ####[place] [address] Klebsiella oxytoca Not detected Normal Not Detected [facility] [place] Comment [place] above: Performed By: #### B JARET ####[place] [address] Klebsiella pneumoniae group Not detected Normal Not Detected [facility] [place] Comment [place] above: Performed By: #### B JARET ####[place] [address] KPC (Carbapenemase) Not detected Normal Not Detected [facility] [place] Comment [place] above: Performed By: #### B JARET ####[place] [address] Listeria monocytogenes Not detected Normal Not Detected [facility] [place] Comment [place] above: Performed By: #### B JARET ####[place] [address] MCR-1 (Colistin Resistance) Not detected Normal Not Detected [facility] [place] Comment [place]: Performed By: #### B JARET ####[place] [address] Mec A/C Not Applicable Normal Not Detected [facility] [place] Comment [place]: Performed By: #### B JARET ####[place] [address] Mec A/C-MREJ (MRSA) Not Applicable Normal Not Detected [facility] [place] Comment [place] above: Performed By: #### B JARET ####[place] [address] NDM (Carbapenemase) Not detected Normal Not Detected [facility] [place] Comment on above: Performed By: #### B JARET ####[place] [address] Neisseria meningitidis (Encapsalated) Not detected Normal Not Detected [facility] [place] Comment [place]: Performed By: #### B JARET ####[place] [address] OXA-48 like (Carbapenemase) Not detected Normal Not Detected [facility] [place] Comment [place] above: Performed By: #### B JARET ####[place] [address] Proteus Not detected Normal Not Detected [facility] [place] Comment [place]: Performed By: #### B JARET ####[place] [address] Pseudomonas aeruginosa Not detected Normal Not Detected [facility] [place] Comment [place]: Performed By: #### B JARET ####[place] [address] S. agalactiae Org specific cx Ql (Vag fld) Not detected Normal Not Detected [facility] [place] Comment [place]: Performed By: #### B JARET ####[place] [address] Salmonella species Not detected Normal Not Detected [facility] [place] Comment [place] above: Performed By: #### B JARET ####[place] [address] Serratia marcescens Not detected Normal Not Detected [facility] [place] Comment [place] above: Performed By: #### B JARET ####[place] [address] Staphylococcus Not detected Normal Not Detected [facility] [place] Comment [place] above: Performed By: #### B JARET ####[place] [address] Staphylococcus aureus Not detected Normal Not Detected [facility] [place] Comment [place]: Result Comment: If S taphylococcus aureus is Detected , an Infectious Disease physician consult is required on identification. Performed By: #### B JARET ####[place] [address] Staphylococcus epidermidis Not detected Normal Not Detected [facility] [place] Comment [place] above: Performed By: #### B JARET ####[place] [address] Staphylococcus lugdunensis Not detected Normal Not Detected [facility] [place] Comment [place] above: Performed By: #### B JARET ####[place] [address] Stenotrophomonas maltophilia Not detected Normal Not Detected [facility] [place] Comment [place] above: Performed By: #### B JARET ####[place] [address] Streptococcus Not detected Normal Not Detected [facility] [place] Comment [place] above: Performed By: #### B JARET ####[place] [address] Streptococcus pneumoniae Not detected Normal Not Detected [facility] [place] Comment [place] above: Performed By: #### B JARET ####[place] [address] Streptococcus pyogenes Not detected Normal Not Detected [facility] [place] Comment [place] above: Performed By: #### B JARET ####[place] [address] Van A/B Not Applicable Normal Not Detected [facility] [place] Comment [place] above: Performed By: #### B JARET ####[place] [address] VIM (Carbapenemase) Not detected Normal Not Detected [facility] [place] Comment on above: Performed By: #### B JARET ####[place] [address] BMPon 04-25-2024 BUN/Creatinine Ratio 21.4 ratio Normal 10.0-22.0 [facility] ([place] Comment [place] above: Performed By: #### G FR, BMP ####[place] [address] Calcium [Mass/Vol] 7.6 mg/dL Low 8.7-10.4 [facility] ([place] Comment [place] above: Performed By: #### G FR, BMP ####[place] [address] Chloride [Moles/Vol] 100 mmol/L Normal 98-110 [facility] ([place] Comment on above: Performed By: #### G FR, BMP ####[place] [id number] CO2 [Moles/Vol] 19 mmol/L Low 22-32 [facility] ([place] Comment on above: Performed By: #### G FR, BMP ####[address] [address] Creatinine [Mass/Vol] 1.26 mg/dL High 0.50-1.20 [facility] [place] Comment [place]: Performed By: #### Tara SAMPSON, BMP ####[place] [address] Electrolyte Balance 9.0 mEq/L Normal 4.0-15.0 [facility] ([place] Comment on above: Performed By: #### Tara SAMPSON, BMP ####[place] [address] Glucose [Mass/Vol] 105 mg/dL Normal 82-115 [facility] ([place] Comment on above: Performed By: #### Tara SAMPSON, BMP ####[place] [address] Potassium [Moles/Vol] 3.8 mmol/L Normal 3.5-5.0 [facility] [place] Comment [place]: Performed By: #### Tara SAMPSON, BMP ####[place] [address] Sodium [Moles/Vol] 128 mmol/L Low 136-145 [facility] ([place] Comment on above: Performed By: #### Tara SAMPSON, BMP ####[place] [address] Urea nitrogen [Mass/Vol] 27.0 mg/dL High 8.0-22.0 [facility] [place] Comment [place] above: Performed By: #### Tara SAMPSON, BMP ####[place] [address] CBCon 04-25-2024 Erythrocyte distribution width (RBC) [Ratio] 17.1 % High 11.5-15.5 [facility] [place] Comment [place] above: Performed By: #### M ORPH, DIFF, CBC ####[address] [address] Hematocrit (Bld) [Volume fraction] 19.4 % Low 34.0-46.0 [facility] [place] Comment [place]: Performed By: #### M ORPH, DIFF, CBC ####[address] [address] Hgb 6.3 G/dL Critically abnormal 12.0-16.0 [facility] [place] Comment on above: Performed By: #### M ORPH, DIFF, CBC ####[address] [address] MCH (RBC) [Entitic mass] 31.3 pg Normal 27.0-33.0 [facility] [place] Comment [place] above: Performed By: #### M ORPH, DIFF, CBC ####[address] [address] MCHC 32.6 G/dL Normal 32.0-36.0 [facility] [place] Comment on above: Performed By: #### M ORPH, DIFF, CBC ####[address] [address] MCV (RBC) [Entitic vol] 95.9 fL Normal 80.0-99.0 [facility] [place] Comment on above: Performed By: #### M ORPH, DIFF, CBC ####[address] [address] Platelet 236 10 3/mcL Normal 150-450 [facility] ([place] Comment on above: Performed By: #### M ORPH, DIFF, CBC ####[address] [address] Platelet mean volume (Bld) [Entitic vol] 9.6 fL Normal 6.6-10.5 [facility] ([place] Comment on above: Performed By: #### M ORPH, DIFF, CBC ####[address] [address] RBC 2.02 10 6/mcL Low 4.10-5.30 [facility] ([place] Comment on above: Performed By: #### M ORPH, DIFF, CBC ####[address] [address] WBC 24.1 10 3/mcL High 4.5-10.8 [facility] ([place] Comment on above: Performed By: #### M ORPH, DIFF, CBC ####[facility] [place] [address] HHon 04-25-2024 Hematocrit (Bld) [Volume fraction] 25.8 % Low 34.0-46.0 [facility] [place] Comment [place]: Performed By: #### O SMOS #### [facility] [address] [place] [address] Hgb 8.6 G/dL Low 12.0-16.0 [facility] [place] Comment on above: Performed By: #### O SMOS #### [facility] [address] [place] [id number] LABORATORYOrdered By: Luis E Duke on 04-25-2024 [...] SS NAURon 04-25-2024 U Sodium <10 [facility] [place] Comment on above: Performed By: #### O BRANDEE BARRY ####[place] [id number] [place] [address] No Panel Informationon 04-25 Microscopic examination of blood, culture Blood Culture: No Growth at 5 days. [facility] Microscopic examination of blood, culture Blood Culture: No Growth at 5 days. [facility] OSMOUon 04-25-2024 U Osmolality 111 mOsm/kg Low 390-1090 [facility] ([place]) Comment on above: Performed By: #### O BRANDEE BARRY ####[address] [address] RBC (Product)on 04-25-2024 RBC Product Ready RBC Ready for Pickup Normal [facility] [place] Comment on above: Performed By: #### R BCP #### [address] [address] .GFRon 04-24-2024 GFR 47 ml/min/1.73sqm [facility] [place] Comment on above: Result Comment: GFR Population [...] G FR, TROPHS, MG, HFP, LIPID, BMP ####[place] [address] GFR Non- 38 ml/min/1.73sqm Normal [facility] [place] Comment on above: Result Comment: GFR Population [...] G FR, TROPHS, MG, HFP, LIPID, BMP ####[place] [address] .Manual Diffon 04-24-2024 Bands 2.0 % Normal 0.0-5.0 [facility] [place] Comment on above: Performed By: #### O SMOS #### [place] [address] Basophil %, Manual 0.0 % Normal 0.0-2.5 [facility] ([place]) Comment on above: Performed By: #### O SMOS #### [place] [address] Basophil, Abs Manual 0.0 10 3/mcL Normal 0.0-0.3 [facility] ([place] Comment on above: Performed By: #### O SMOS #### [place] [address] Eosinophil %, Manual 0.0 % Normal 0.0-6.0 [facility] ([place]) Comment on above: Performed By: #### O SMOS #### [address] [address] Eosinophil, Abs Manual 0.0 10 3/mcL Normal 0.0-0.7 [facility] [place] Comment on above: Performed By: #### O SMOS #### [address] [address] Lymphocyte %, Manual 5.0 % Low 20.0-40.0 [facility] ([place] Comment on above: Performed By: #### O SMOS #### [address] [address] Lymphocyte, Abs Manual 1.6 10 3/mcL Normal 0.9-4.3 [facility] [place] Comment on above: Performed By: #### O SMOS #### [address] [address] Monocyte %, Manual 1.0 % Low 2.0-13.0 [facility] ([place] Comment on above: Performed By: #### O SMOS #### [address] [address] Monocyte, Abs Manual 0.3 10 3/mcL Normal 0.1-1.4 [facility] ([place] Comment on above: Performed By: #### O SMOS #### [address] [address] Myelocyte 1.0 % Normal [facility] [place] Comment on above: Performed By: #### O SMOS #### [address] [address] Neutrophil %, Manual 91.0 % High 50.0-75.0 [facility] ([place] Comment on above: Performed By: #### O SMOS #### [address] [address] Neutrophil, Abs Manual 29.4 10 3/mcL High 2.3-8.1 [facility] [place] Comment on above: Performed By: #### O SMOS #### [address] [address] Nucleated RBC 1.0 /100 WBC Normal [facility] ([place] Comment on above: Performed By: #### O SMOS #### [place] [address] .Morphon 04-24-2024 Anisocytosis Ql (Bld) 1+ Normal [facility] [place] Comment on above: Performed By: #### O SMOS #### [place] [address] Hypochrom 1+ Normal [facility] [place] Comment on above: Performed By: #### O SMOS #### [place] [address] Ovalocytes 1+ Normal [facility] [place] Comment on above: Performed By: #### O SMOS #### [place] [address] Platelet Estimate Normal Normal [facility] [place] Comment on above: Performed By: #### O SMOS #### [place] [address] Poik 1+ Normal [facility] [place] Comment on above: Performed By: #### O SMOS #### [place] [address] Polychrom 1+ Normal [facility] [place] Comment on above: Performed By: #### O SMOS #### [place] [address] Toxic Gran 1+ Normal [facility] [place] Comment on above: Performed By: #### O SMOS #### [place] [address] APTTon 04-24-2024 aPTT Coag (Bld) [Time] 87.6 s High 25.0-35.0 [facility] [place] Comment on above: Result Comment: For Heparin anticoagulation therapy, the recommended therapeutic range is: 54-77 seconds (APTT Correlation with Anti-Xa therapeutic range of 0.3-0.7 units/ml). PLEASE REFERENCE THE PHARMACY PROTOCOL FOR DOSING. Heparin dose (APTT) Heparin IV Normal [facility] ([place]) aPTT Coag (Bld) [Time] 147.9 s Critically abnormal 25.0-35.0 [facility] [place] Comment on above: Order Comment: recol lect Result Comment: For Heparin anticoagulation therapy, the recommended therapeutic range is: 54-77 seconds (APTT Correlation with Anti-Xa therapeutic range of 0.3-0.7 units/ml). PLEASE REFERENCE THE PHARMACY PROTOCOL FOR DOSING. Heparin dose (APTT) Heparin IV Normal [facility] ([place] Comment on above: Order Comment: recol lect aPTT Coag (Bld) [Time] 145.4 s Critically abnormal 25.0-35.0 [facility] [place] Comment on above: Result Comment: For Heparin anticoagulation therapy, the recommended therapeutic range is: 54-77 seconds (APTT Correlation with Anti-Xa therapeutic range of 0.3-0.7 units/ml). PLEASE REFERENCE THE PHARMACY PROTOCOL FOR DOSING. Heparin dose (APTT) Heparin IV Normal [facility] ([place] aPTT Coag (Bld) [Time] 125.7 s Critically abnormal 25.0-35.0 [facility] [place] Comment on above: Result Comment: For Heparin anticoagulation therapy, the recommended therapeutic range is: 54-77 seconds (APTT Correlation with Anti-Xa therapeutic range of 0.3-0.7 units/ml). PLEASE REFERENCE THE PHARMACY PROTOCOL FOR DOSING. Performed By: #### O SMOS #### [address] [address] Heparin dose (APTT) Coumadin PO Normal [facility] ([place] Comment on above: Performed By: #### O SMOS #### [address] [address] BMPon 04-24-2024 BUN/Creatinine Ratio 17.6 ratio Normal 10.0-22.0 [facility] ([place] Comment on above: Performed By: #### G FR, TROPHS, MG, HFP, LIPID, BMP ####[address] [address] Calcium [Mass/Vol] 7.6 mg/dL Low 8.7-10.4 [facility] ([place]) Comment on above: Performed By: #### G FR, TROPHS, MG, HFP, LIPID, BMP ####[address] [address] Chloride [Moles/Vol] 100 mmol/L Normal 98-110 [facility] ([place] Comment on above: Performed By: #### G FR, TROPHS, MG, HFP, LIPID, BMP ####[address] [address] CO2 [Moles/Vol] 17 mmol/L Low 22-32 [facility] ([place]) Comment on above: Performed By: #### G FR, TROPHS, MG, HFP, LIPID, BMP ####[address] [address] Creatinine [Mass/Vol] 1.36 mg/dL High 0.50-1.20 [facility] [place] Comment on above: Performed By: #### G FR, TROPHS, MG, HFP, LIPID, BMP ####[place] [address] Electrolyte Balance 12.0 mEq/L Normal 4.0-15.0 [facility] ([place] Comment on above: Performed By: #### G FR, TROPHS, MG, HFP, LIPID, BMP ####[place] [address] Glucose [Mass/Vol] 111 mg/dL Normal 82-115 [facility] ([place] Comment on above: Performed By: #### G FR, TROPHS, MG, HFP, LIPID, BMP ####[place] [address] Potassium [Moles/Vol] 4.0 mmol/L Normal 3.5-5.0 [facility] [place] Comment on above: Performed By: #### G FR, TROPHS, MG, HFP, LIPID, BMP ####[place] [address] Sodium [Moles/Vol] 129 mmol/L Low 136-145 [facility] ([place]) Comment on above: Performed By: #### G FR, TROPHS, MG, HFP, LIPID, BMP ####[place] [address] Urea nitrogen [Mass/Vol] 24.0 mg/dL High 8.0-22.0 [facility] ([place] Comment on above: Performed By: #### G FR, TROPHS, MG, HFP, LIPID, BMP ####[place] [address] CBCon 04-24-2024 Erythrocyte distribution width (RBC) [Ratio] 17.0 % High 11.5-15.5 [facility] [place] Comment on above: Performed By: #### R BCP #### [place] [address] Hematocrit (Bld) [Volume fraction] 22.1 % Low 34.0-46.0 [facility] [place] Comment on above: Performed By: #### R BCP #### [place] [address] Hgb 7.3 G/dL Low 12.0-16.0 [facility] [place] Comment on above: Performed By: #### R BCP #### [place] [address] MCH (RBC) [Entitic mass] 31.7 pg Normal 27.0-33.0 [facility] [place] Comment on above: Performed By: #### R BCP #### [place] [address] MCHC 33.2 G/dL Normal 32.0-36.0 [facility] [place] Comment on above: Performed By: #### R BCP #### [place] [address] MCV (RBC) [Entitic vol] 95.6 fL Normal 80.0-99.0 [facility] [place] Comment on above: Performed By: #### R BCP #### [place] [address] Platelet 231 10 3/mcL Normal 150-450 [facility] ([place]) Comment on above: Performed By: #### R BCP #### [place] [id number] Platelet mean volume (Bld) [Entitic vol] 9.7 fL Normal 6.6-10.5 [facility] ([place]) Comment on above: Performed By: #### R BCP #### [place] [address] RBC 2.31 10 6/mcL Low 4.10-5.30 [facility] ([place]) Comment on above: Performed By: #### R BCP #### [place] [address] WBC 31.7 10 3/mcL High 4.5-10.8 [facility] ([place] Comment on above: Performed By: #### R BCP #### [place] [address] CVFLURVon 04-24-2024 FLU A PCR Negative Normal Negative [facility] [place] Comment on above: Performed By: #### C VFLURV ####[place] [address] FLU B PCR Negative Normal Negative [facility] ([place] Comment on above: Performed By: #### C VFLURV ####[place] [address] RSV PCR Negative Normal Negative [facility] ([place] Comment on above: Performed By: #### C VFLURV ####[place] [address] SARS-CoV-2 (COVID-19) RNA TL+probe Ql (Unsp spec) Negative Normal Negative [facility] ([place] Comment on above: Result Comment: This test [...] positive results. Performed By: #### C VFLURV ####[place] [address] Robbin 04-24-2024 Ferritin [Mass/Vol] 440.5 ng/mL High 8.0-252.0 [facility] ([place]) Comment on above: Performed By: #### F ERR, FES ####[place] [address] FESon 04-24-2024 Iron [Mass/Vol] 26 ug/dL Low 50-170 [facility] ([place]) Comment on above: Performed By: #### F ERR, FES ####[place] [address] Iron Sat 15 % Normal [facility] ([place] Comment on above: Performed By: #### F ERR, FES ####[place] [address] TIBC 168 mcg/dL Low 250-500 [facility] [place] Comment on above: Performed By: #### F ERR, FES ####[place] [address] HFPon 04-24-2024 Bili Indirect 0.2 mg/dL Normal 0.1-10.0 [facility] ([place] Comment on above: Performed By: #### G FR, TROPHS, MG, HFP, LIPID, BMP ####[place] [address] Albumin Level 2.0 G/dL Low 3.2-4.8 [facility] ([place] Comment on above: Performed By: #### G FR, TROPHS, MG, HFP, LIPID, BMP ####[address] [address] Albumin/Globulin [Mass ratio] 0.6 {ratio} Low 0.9-1.6 [facility] [place] Comment on above: Performed By: #### G FR, TROPHS, MG, HFP, LIPID, BMP ####[address] [address] ALP [Catalytic activity/Vol] 151 U/L High 38-126 [facility] [place] Comment on above: Performed By: #### G FR, TROPHS, MG, HFP, LIPID, BMP ####[address] [address] ALT [Catalytic activity/Vol] 350 U/L High 10-49 [facility] ([place] Comment on above: Performed By: #### G FR, TROPHS, MG, HFP, LIPID, BMP ####[address] [address] AST [Catalytic activity/Vol] 595 U/L High 8-34 [facility] ([place] Comment on above: Performed By: #### G FR, TROPHS, MG, HFP, LIPID, BMP ####[place] [address] Bili Direct 0.3 mg/dL Normal 0.0-0.4 [facility] ([place]) Comment on above: Result Comment: Use of this assay is not recommended for patients undergoing treatment with eltrombopag due to the potential for falsely elevated results. Performed By: #### G FR, TROPHS, MG, HFP, LIPID, BMP ####[place] [address] Bili Total 0.50 mg/dL Normal 0.20-1.20 [facility] [place] Comment on above: Result Comment: Use of this assay is not recommended for patients undergoing treatment with eltrombopag due to the potential for falsely elevated results. Performed By: #### G FR, TROPHS, MG, HFP, LIPID, BMP ####[place] [address] Globulin 3.4 G/dL Normal 1.5-3.8 [facility] [place] Comment on above: Performed By: #### G FR, TROPHS, MG, HFP, LIPID, BMP ####[place] [id number] [place] [address] Total Protein 5.4 G/dL Low 5.7-8.2 [facility] ([place]) Comment on above: Result Comment: No te - New Reference Range in effect 20 Performed By: #### G FR, TROPHS, MG, HFP, LIPID, BMP ####[place] [address] [place] [address] LABORATORYOrdered By: SYSTEM SYSTEM on 04-24-2024 Troponin [...] 04-24-2024 Cholesterol [Mass/Vol] 71 mg/dL Normal 50-199 [facility] [place] Comment on above: Result Comment: Chol esterol Reference Interval: Less than 200 Desirable 200-239 Borderline high risk 240 and above High risk Performed By: #### G FR, TROPHS, MG, HFP, LIPID, BMP ####[place] [address] Cholesterol in HDL [Mass/Vol] 8 mg/dL Low 40-59 [facility] [place] Comment on above: Performed By: #### G FR, TROPHS, MG, HFP, LIPID, BMP ####[place] [address] Cholesterol in LDL [Mass/Vol] 44 mg/dL Normal 0-129 [facility] [place] Comment on above: Performed By: #### G FR, TROPHS, MG, HFP, LIPID, BMP ####[place] [address] Triglyceride [Mass/Vol] 96 mg/dL Normal 3-149 [facility] [place] Comment on above: Performed By: #### G FR, TROPHS, MG, HFP, LIPID, BMP ####[place] [address] MGon 04-24-2024 Magnesium [Mass/Vol] 1.6 mg/dL Normal 1.6-2.4 [facility] ([place] Comment on above: Performed By: #### G FR, TROPHS, MG, HFP, LIPID, BMP ####[place] [address] OSMOSon 04-24-2024 Osmolality [Osmolality] 269 mosm/kg Low 275-300 [facility] [place] Comment on above: Performed By: #### O SMOS ####[place] [address] OSMOUon 04-24-2024 U Osmolality 315 mOsm/kg Low 390-1090 [facility] ([place] Comment on above: Performed By: #### O SMOS #### [place] [address] TROPHSon 04-24-2024 High Sensitivity Troponin I 370 ng/L High 0-34 [facility] [place] Comment on above: Result Comment: High Sensitive Troponin I Reference Ranges: Female: 0-34 ng/L Male: 0-54 ng/L Testing performed on [employer] IM analyzer using direct chemiluminescent technology. Performed By: #### T EVELIO ####[address] [address] High Sensitivity Troponin I 374 ng/L High 0-34 [facility] [place] Comment on above: Result Comment: High Sensitive Troponin I Reference Ranges: Female: 0-34 ng/L Male: 0-54 ng/L Testing performed on [employer] IM analyzer using direct chemiluminescent technology. Performed By: #### T EVELIO ####[place] [address] High Sensitivity Troponin I 456 ng/L High 0-34 [facility] [place] Comment on above: Result Comment: High Sensitive Troponin I Reference Ranges: Female: 0-34 ng/L Male: 0-54 ng/L Testing performed on [employer] IM analyzer using direct chemiluminescent technology. Performed By: #### T EVELIO ####[place] [address] High Sensitivity Troponin I 611 ng/L High 0-34 [facility] [place] Comment on above: Result Comment: High Sensitive Troponin I Reference Ranges: Female: 0-34 ng/L Male: 0-54 ng/L Testing performed on [employer] IM analyzer using direct chemiluminescent technology. Performed By: #### G FR, TROPHS, MG, HFP, LIPID, BMP ####[place] [id number] .GFRon 04-23-2024 GFR 38 ml/min/1.73sqm Normal [facility] [place] Comment on above: Result Comment: GFR Population [...] DIFF, LAC, CBC, BMP, GFR ####[place] [address] [place], [place] [address] GFR Non- 31 ml/min/1.73sqm Normal [facility] [place] Comment on above: Result Comment: GFR Population [...] PBNP, DIFF, LAC, CBC, BMP, GFR ####[place] [address] [place], [place] [address] .MDWon 04-23-2024 Monocyte Distribution Width 23.84 High 0.00-20.00 [facility] ([place]) Comment on above: Result Comment: For adults in ED, MDW>20.0 may be associated with a higher risk of sepsis during the first 12hrs of hospital admission The predictive value of MDW for identifying sepsis in patients with hematological abnormalities has not been established Performed By: #### M DW, MORPH, TROPHS, PBNP, DIFF, LAC, CBC, BMP, GFR ####[place] [address] [place], [place] [address] .Manual Diffon 04-23-2024 Bands 3.0 % Normal 0.0-5.0 [facility] [place] Comment on above: Performed By: #### M DW, MORPH, TROPHS, PBNP, DIFF, LAC, CBC, BMP, GFR ####[place] [address] [place], [place] [address] Basophil %, Manual 0.0 % Normal 0.0-2.5 [facility] ([place]) Comment on above: Performed By: #### M DW, MORPH, TROPHS, PBNP, DIFF, LAC, CBC, BMP, GFR ####[place] [address] [place], [place] [address] Basophil, Abs Manual 0.0 10 3/mcL Normal 0.0-0.2 [facility] ([place] Comment on above: Performed By: #### M DW, MORPH, TROPHS, PBNP, DIFF, LAC, CBC, BMP, GFR ####[place] [address] [place], [place] [address] Eosinophil %, Manual 0.0 % Normal 0.0-7.0 [facility] ([place] Comment on above: Performed By: #### M DW, MORPH, TROPHS, PBNP, DIFF, LAC, CBC, BMP, GFR ####[place] [address] [place], [place] [address] Eosinophil, Abs Manual 0.0 10 3/mcL Normal 0.0-0.4 [facility] [place] Comment on above: Performed By: #### M DW, MORPH, TROPHS, PBNP, DIFF, LAC, CBC, BMP, GFR ####[place] [address] [place], [place] [address] Lymphocyte %, Manual 7.0 % Low 10.0-50.0 [facility] ([place] Comment on above: Performed By: #### M DW, MORPH, TROPHS, PBNP, DIFF, LAC, CBC, BMP, GFR ####[place] [address] [place], [place] [address] Lymphocyte, Abs Manual 1.7 10 3/mcL Normal 0.8-3.9 [facility] [place] Comment on above: Performed By: #### M DW, MORPH, TROPHS, PBNP, DIFF, LAC, CBC, BMP, GFR ####[place] [address] [place], [place] [address] Monocyte %, Manual 3.0 % Normal 1.7-13.0 [facility] ([place] Comment on above: Performed By: #### M DW, MORPH, TROPHS, PBNP, DIFF, LAC, CBC, BMP, GFR ####[place] [address] [place], [place] [address] Monocyte, Abs Manual 0.7 10 3/mcL Normal 0.2-1.0 [facility] ([place] Comment on above: Performed By: #### M DW, MORPH, TROPHS, PBNP, DIFF, LAC, CBC, BMP, GFR ####[address] [place], [place] [address] Neutrophil %, Manual 87.0 % High 37.0-80.0 [facility] ([place] Comment on above: Performed By: #### M DW, MORPH, TROPHS, PBNP, DIFF, LAC, CBC, BMP, GFR ####[address] [place], [place] [address] Neutrophil, Abs Manual 21.1 10 3/mcL High 2.9-6.2 [facility] [place] Comment on above: Performed By: #### M DW, MORPH, TROPHS, PBNP, DIFF, LAC, CBC, BMP, GFR ####[address] [place], [place] [address] Nucleated RBC 0.0 /100 WBC Normal [facility] ([place] Comment on above: Performed By: #### M DW, MORPH, TROPHS, PBNP, DIFF, LAC, CBC, BMP, GFR ####[address] [place], [place] [address] .Morphon 04-23-2024 Anisocytosis Ql (Bld) 1+ Normal [facility] [place] Comment on above: Performed By: #### M DW, MORPH, TROPHS, PBNP, DIFF, LAC, CBC, BMP, GFR ####[address] [place], [place] [address] Hypochrom 1+ Normal [facility] [place] Comment on above: Performed By: #### M DW, MORPH, TROPHS, PBNP, DIFF, LAC, CBC, BMP, GFR ####[address] [place], [place] [address] Ovalocytes 1+ Normal [facility] ([place] Comment on above: Performed By: #### M DW, MORPH, TROPHS, PBNP, DIFF, LAC, CBC, BMP, GFR ####[place] [place], [place] [address] Platelet Estimate Normal Normal [facility] ([place] Comment on above: Performed By: #### M DW, MORPH, TROPHS, PBNP, DIFF, LAC, CBC, BMP, GFR ####[address] [place], [place] [address] APTTon 04-23-2024 aPTT Coag (Bld) [Time] 30.0 s Normal 25.0-35.0 [facility] [place] Comment on above: Result Comment: For Heparin anticoagulation therapy, the recommended therapeutic range is: 45.4-75.9 seconds. Patients on heparin therapy may have an extreme result. Performed By: #### P RO ####[address] [place], [place] [address] Heparin dose (APTT) Unknown Normal [facility] ([place] Comment on above: Performed By: #### P RO ####[address] [place], [place] [address] BMPon 04-23-2024 BUN/Creatinine Ratio 15 ratio Normal 7-27 [facility] ([place] Comment on above: Performed By: #### M DW, MORPH, TROPHS, PBNP, DIFF, LAC, CBC, BMP, GFR ####[address] [place], [place] [address] Calcium [Mass/Vol] 8.6 mg/dL Normal 8.4-10.2 [facility] ([place] Comment on above: Performed By: #### M DW, MORPH, TROPHS, PBNP, DIFF, LAC, CBC, BMP, GFR ####[address] [place], [place] [address] Chloride [Moles/Vol] 93 mmol/L Low 98-107 [facility] ([place] Comment on above: Performed By: #### M DW, MORPH, TROPHS, PBNP, DIFF, LAC, CBC, BMP, GFR ####[address] [place], [place] [address] CO2 [Moles/Vol] 20 mmol/L Low 23-31 [facility] ([place] Comment on above: Performed By: #### M DW, MORPH, TROPHS, PBNP, DIFF, LAC, CBC, BMP, GFR ####[address] [place], [place] [address] Creatinine [Mass/Vol] 1.62 mg/dL High 0.55-1.02 [facility] [place] Comment on above: Performed By: #### M DW, MORPH, TROPHS, PBNP, DIFF, LAC, CBC, BMP, GFR ####[address] [place], [place] [address] Electrolyte Balance 15.0 mEq/L Normal 4.0-15.0 [facility] ([place] Comment on above: Performed By: #### M DW, MORPH, TROPHS, PBNP, DIFF, LAC, CBC, BMP, GFR ####[address] [place], [place] [address] Glucose [Mass/Vol] 119 mg/dL High 83-110 [facility] ([place] Comment on above: Performed By: #### M DW, MORPH, TROPHS, PBNP, DIFF, LAC, CBC, BMP, GFR ####[address] [place], [place] [address] Potassium [Moles/Vol] 4.4 mmol/L Normal 3.5-5.1 [facility] [place] Comment on above: Performed By: #### M DW, MORPH, TROPHS, PBNP, DIFF, LAC, CBC, BMP, GFR ####[address] [place], [place] [address] Sodium [Moles/Vol] 128 mmol/L Low 136-145 [facility] ([place] Comment on above: Performed By: #### M DW, MORPH, TROPHS, PBNP, DIFF, LAC, CBC, BMP, GFR ####[address] [place], [place] [address] Urea nitrogen [Mass/Vol] 25 mg/dL High 7-18 [facility] [place] Comment on above: Performed By: #### M DW, MORPH, TROPHS, PBNP, DIFF, LAC, CBC, BMP, GFR ####[address] [place], [place] [address] CBCon 04-23-2024 Erythrocyte distribution width (RBC) [Ratio] 16.2 % High 11.5-14.5 [facility] [place] Comment on above: Performed By: #### M DW, MORPH, TROPHS, PBNP, DIFF, LAC, CBC, BMP, GFR ####[address] [place], [place] [address] Hematocrit (Bld) [Volume fraction] 22.7 % Low 37.0-47.0 [facility] [place] Comment on above: Performed By: #### M DW, MORPH, TROPHS, PBNP, DIFF, LAC, CBC, BMP, GFR ####[address] [place], [place] [address] Hgb 7.6 G/dL Low 12.0-16.0 [facility] [place] Comment on above: Performed By: #### M DW, MORPH, TROPHS, PBNP, DIFF, LAC, CBC, BMP, GFR ####[address] [place], [place] [address] MCH (RBC) [Entitic mass] 32.3 pg High 27.0-31.2 [facility] [place] Comment on above: Performed By: #### M DW, MORPH, TROPHS, PBNP, DIFF, LAC, CBC, BMP, GFR ####[address] [place], [place] [address] MCHC 33.3 G/dL Normal 33.0-37.0 [facility] [place] Comment on above: Performed By: #### M DW, MORPH, TROPHS, PBNP, DIFF, LAC, CBC, BMP, GFR ####[address] [place], [place] [address] MCV (RBC) [Entitic vol] 96.8 fL High 80.0-94.0 [facility] [place] Comment on above: Performed By: #### M DW, MORPH, TROPHS, PBNP, DIFF, LAC, CBC, BMP, GFR ####[address] [place], [place] [address] Platelet 250 10 3/mcL Normal 130-400 [facility] ([place] Comment on above: Performed By: #### M DW, MORPH, TROPHS, PBNP, DIFF, LAC, CBC, BMP, GFR ####[address] [place], [place] [address] Platelet mean volume (Bld) [Entitic vol] 9.4 fL Normal 7.4-10.4 [facility] ([place] Comment on above: Performed By: #### M DW, MORPH, TROPHS, PBNP, DIFF, LAC, CBC, BMP, GFR ####[address] [place], [place] [address] RBC 2.35 10 6/mcL Low 4.20-5.40 [facility] ([place] Comment on above: Performed By: #### M DW, MORPH, TROPHS, PBNP, DIFF, LAC, CBC, BMP, GFR ####[address] [place], [place] [address] WBC 23.5 10 3/mcL High 4.6-10.8 [facility] ([place] Comment on above: Performed By: #### M DW, MORPH, TROPHS, PBNP, DIFF, LAC, CBC, BMP, GFR ####[address]la [address] [place], [place] [address] CT ANGIOGRAPHY CHEST W/CONTR [place] 04-23-2024 CT [...] 04/23/2024 11:18:34 PM Ordering Provider: [facility] ([place]) LABORATORYOrdered By: Isabel Julien on 04-23-2024 aPTT [...] Comment on above: Interpretive Data: Won kendrick [employer] (CHEST, 1991, 102:312S-25S) [...] ng/L Male: 0-76 ng/L Testing performed on Tigerlily using a homogeneous sandwich chemiluminescent immunoassay based on [employer] technology. Anisocytosis Ql (Bld) 1+ *NA* (04/23/24 [...] Workflow SS Natriuretic peptide.B prohormone N-Terminal [Mass/Vol] 25738 pg/mL High 0 - 125 pg/mL AO [...] ng/L Male: 0-76 ng/L Testing performed on Tigerlily using a homogeneous sandwich chemiluminescent immunoassay based on [employer] technology. Urea nitrogen [Mass/Vol] 25 mg/dL High [...] Lactic Acid Lvl 1.9 mmol/L Normal 0.4-2.0 [facility] ([place]) Comment on above: Performed By: #### M DW, MORPH, TROPHS, PBNP, DIFF, LAC, CBC, BMP, GFR ####Shahla [address] [place] [id number] No Panel Informationon 04-23 GSANA Gram Negative [facility] Microscopic examination of blood, culture Culture has been received in lab and is no growth to date. Routine cultures are held for 5 days. [facility] PBNPon 04-23-2024 Natriuretic peptide B (Bld) [Mass/Vol] 13264 pg/mL High 0-125 [facility] ([place]) Comment on above: Result Comment: NT-p roBNP results of less than 300 pg/mL effectively rules out acute congestive heart failure with 99% negative predictive value. Performed By: #### M DW, MORPH, TROPHS, PBNP, DIFF, LAC, CBC, BMP, GFR ####Shahla Lrtokvbq[address] [place], [place] [address] PROon 04-23-2024 PT Coag (PPP) [Time] 16.2 s High 9.0-14.4 [facility] ([place]) Comment on above: Performed By: #### P RO ####[place] [address] [place], [place] [address] PT International Ratio 1.4 [facility] ([place]) Comment on above: Result Comment: [employer] (CHEST, 1992, 102:312S-25S) recommended therapeutic range for oral anticoagulant therapy is: LOW RISK: Prophylaxis of venous thrombosis INR: 2.0-3.0 Treatment of pulmonary embolism 2.0-3.0 Prevention of systemic embolism 2.0-3.0 HIGH RISK: Mechanical prosthetic valves 2.5-3.5 Performed By: #### P RO ####[place] [address] [place], [place] [address] TROPHSon 04-23-2024 High Sensitivity Troponin I 478 ng/L High 0-51 [facility] ([place] Comment on above: Result Comment: High Sensitive Troponin I Reference Ranges: Female: 0-51 ng/L Male: 0-76 ng/L Testing performed on Tigerlily using a homogeneous sandwich chemiluminescent immunoassay based on [employer] technology. Performed By: #### T ROPHS ####[place] [address] [place], [place] [address] High Sensitivity Troponin I 468 ng/L High 0-51 [facility] ([place] Comment on above: Result Comment: High Sensitive Troponin I Reference Ranges: Female: 0-51 ng/L Male: 0-76 ng/L Testing performed on Tigerlily using a homogeneous sandwich chemiluminescent immunoassay based on [employer] technology. Performed By: #### M DW, MORPH, TROPHS, PBNP, DIFF, LAC, CBC, BMP, GFR ####Shahla Qyjobdko[address] [place], [place] [address] XR CHEST 1 VIEWon 04-23-2024 XR CHEST [...] 04/23/2024 9:49:22 PM Ordering Provider: [facility] ([place]) .Auto Diffon 04-21-2024 Basophil, Absolute 0.0 10 3/mcL Normal 0.0-0.2 [facility] ([place]) Comment on above: Performed By: #### B 12 ####[address] [address]#### GFR, CBC, ANEU, BMP, MG, ADIFF ####Shahla S[address]zweuf[address] [place], [place] [address] Basophils/100 WBC (Bld) 0.3 % Normal 0.0-2.5 [facility] ([place] Comment on above: Performed By: #### B 12 ####[address] [address]#### GFR, CBC, ANEU, BMP, MG, ADIFF ####[facility]832 [place], [place] [address] Eosinophil, Absolute 0.0 10 3/mcL Normal 0.0-0.4 [facility] ([place]) Comment on above: Performed By: #### B 12 ####[place] [address]#### GFR, CBC, ANEU, BMP, MG, ADIFF ####[facility]832 [place], [place] [address] Eosinophils/100 WBC (Bld) 0.4 % Normal 0.0-7.0 [facility] ([place] Comment on above: Performed By: #### B 12 ####[place] [address]#### GFR, CBC, ANEU, BMP, MG, ADIFF ####[address] [address] Lymphocyte, Absolute 0.8 10 3/mcL Normal 0.8-3.9 [facility] ([place]) Comment on above: Performed By: #### B 12 ####[place] [address]#### GFR, CBC, ANEU, BMP, MG, ADIFF ####[address] [address] Lymphocytes/100 WBC (Bld) 7.6 % Low 10.0-50.0 [facility] ([place] Comment on above: Performed By: #### B 12 ####[place] [address]#### GFR, CBC, ANEU, BMP, MG, ADIFF ####[facility]832 [place], [place] [address] Monocyte, Absolute 1.0 10 3/mcL Normal 0.2-1.0 [facility] ([place]) Comment on above: Performed By: #### B 12 ####[place] [address]#### GFR, CBC, ANEU, BMP, MG, ADIFF ####[address] [address] Monocytes/100 WBC (Bld) 8.8 % Normal 1.7-13.0 [facility] ([place] Comment on above: Performed By: #### B 12 ####[address] [address]#### GFR, CBC, ANEU, BMP, MG, ADIFF ####Shahla Pesng[address]pm[address] [place], [place] [address] Neutrophils/100 WBC (Bld) 82.9 % High 37.0-80.0 [facility] ([place]) Comment on above: Performed By: #### B 12 ####[address] [address]#### GFR, CBC, ANEU, BMP, MG, ADIFF ####[facility]832 [place], [place] [address] .GFRon 04-21-2024 GFR Non- 48 ml/min/1.73sqm Normal [facility] ([place] Comment on above: Result Comment: GFR Population [...] square meters Performed By: #### B 12 ####[address] [address]#### GFR, CBC, ANEU, BMP, MG, ADIFF ####[facility]832 [place], [place] [address] GFR 58 ml/min/1.73sqm Normal [facility] ([place] Comment on above: Result Comment: GFR Population [...] square meters Performed By: #### B 12 ####[address] [address]#### GFR, CBC, ANEU, BMP, MG, ADIFF ####[place] [address] [place], [place] [address] .NEUABSon 04-21-2024 Neutrophil, Absolute 9.2 10 3/mcL High 2.9-6.2 [facility] ([place]) Comment on above: Performed By: #### B 12 ####[place] [address]#### GFR, CBC, ANEU, BMP, MG, ADIFF ####[place] [address] [place], [place] [address] B12on 04-21-2024 Cobalamin (Vitamin B12) [Mass/Vol] 1197 pg/mL High 211-911 [facility] ([place] Comment on above: Performed By: #### B 12 ####[place] [address]#### GFR, CBC, ANEU, BMP, MG, ADIFF ####[place] [address] [place], [place] [address] BMPon 04-21-2024 BUN/Creatinine Ratio 17 ratio Normal 7-27 [facility] ([place]) Comment on above: Performed By: #### B 12 ####[address] [address]#### GFR, CBC, ANEU, BMP, MG, ADIFF ####[place] [address] [place], [place] [address] Calcium [Mass/Vol] 8.3 mg/dL Low 8.4-10.2 [facility] ([place]) Comment on above: Performed By: #### B 12 ####[place] [address]#### GFR, CBC, ANEU, BMP, MG, ADIFF ####[place] [address] [place], [place] [address] Chloride [Moles/Vol] 102 mmol/L Normal 98-107 [facility] ([place]) Comment on above: Performed By: #### B 12 ####[place] [address]#### GFR, CBC, ANEU, BMP, MG, ADIFF ####[place] [address]kx[address] [place] [address] CO2 [Moles/Vol] 21 mmol/L Low 23-31 [facility] ([place]) Comment on above: Performed By: #### B 12 ####[place] [address]#### GFR, CBC, ANEU, BMP, MG, ADIFF ####[place] [address]svsrxay[address] [place], [place] [address] Creatinine [Mass/Vol] 1.13 mg/dL High 0.55-1.02 [facility] ([place] Comment on above: Performed By: #### B 12 ####[place] [address]#### GFR, CBC, ANEU, BMP, MG, ADIFF ####[place] [address]qds[address] [place], [place] [address] Electrolyte Balance 11.0 mEq/L Normal 4.0-15.0 [facility] ([place]) Comment on above: Performed By: #### B 12 ####[place] [address]#### GFR, CBC, ANEU, BMP, MG, ADIFF ####[place] [address] [place], [place] [address] Glucose [Mass/Vol] 91 mg/dL Normal 83-110 [facility] ([place]) Comment on above: Performed By: #### B 12 ####[place] [address]#### GFR, CBC, ANEU, BMP, MG, ADIFF ####[place] [address] [place], [place] [address] Potassium [Moles/Vol] 4.1 mmol/L Normal 3.5-5.1 [facility] ([place] Comment on above: Performed By: #### B 12 ####[place] [address]#### GFR, CBC, ANEU, BMP, MG, ADIFF ####[place] [address]zjdm[address] [place], [place] [address] Sodium [Moles/Vol] 134 mmol/L Low 136-145 [facility] ([place]) Comment on above: Performed By: #### B 12 ####[place] [address]#### GFR, CBC, ANEU, BMP, MG, ADIFF ####[place] Frpagebl[address] [place], [place] [address] Urea nitrogen [Mass/Vol] 19 mg/dL High 7-18 [facility] ([place] Comment on above: Performed By: #### B 12 ####[place] [address]#### GFR, CBC, ANEU, BMP, MG, ADIFF ####[place] [address]sktgjpk[address] [place], [place] [address] CBCon 04-21-2024 Erythrocyte distribution width (RBC) [Ratio] 16.4 % High 11.5-14.5 [facility] ([place] Comment on above: Performed By: #### B 12 ####[place] [address]#### GFR, CBC, ANEU, BMP, MG, ADIFF ####Sh[place]la Lvzvneqv9[address] [place], [place] [address] Hematocrit (Bld) [Volume fraction] 23.8 % Low 37.0-47.0 [facility] ([place] Comment on above: Performed By: #### B 12 ####[place] [address]#### GFR, CBC, ANEU, BMP, MG, ADIFF ####[place] [address] [place], [place] [address] Hgb 8.1 G/dL Low 12.0-16.0 [facility] ([place] Comment on above: Performed By: #### B 12 ####[place] [address]#### GFR, CBC, ANEU, BMP, MG, ADIFF ####Sh[place]la Qwkerkql[address] [place], [place] [address] MCH (RBC) [Entitic mass] 32.5 pg High 27.0-31.2 [facility] ([place] Comment on above: Performed By: #### B 12 ####[place] [address]#### GFR, CBC, ANEU, BMP, MG, ADIFF ####[facility]832 [place] [phone] MCHC 33.8 G/dL Normal 33.0-37.0 [facility] ([place] Comment on above: Performed By: #### B 12 ####[place] [address]#### GFR, CBC, ANEU, BMP, MG, ADIFF ####[facility]832 [place], [place] [address] MCV (RBC) [Entitic vol] 96.1 fL High 80.0-94.0 [facility] ([place] Comment on above: Performed By: #### B 12 ####[place] [address]#### GFR, CBC, ANEU, BMP, MG, ADIFF ####[facility]832 [place] [phone] Platelet 170 10 3/mcL Normal 130-400 [facility] ([place]) Comment on above: Performed By: #### B 12 ####[place] [address]#### GFR, CBC, ANEU, BMP, MG, ADIFF ####Sh[place]la E[address] [place], [place] [address] Platelet mean volume (Bld) [Entitic vol] 9.3 fL Normal 7.4-10.4 [facility] ([place]) Comment on above: Performed By: #### B 12 ####[place] [address]#### GFR, CBC, ANEU, BMP, MG, ADIFF ####Sh[place]la Meelexso[address] [place] [address] RBC 2.48 10 6/mcL Low 4.20-5.40 [facility] ([place]) Comment on above: Performed By: #### B 12 ####[place] [address]#### GFR, CBC, ANEU, BMP, MG, ADIFF ####[place] S[address]re[address] [place] [address] WBC 11.1 10 3/mcL High 4.6-10.8 [facility] ([place]) Comment on above: Performed By: #### B 12 ####[place] [address]#### GFR, CBC, ANEU, BMP, MG, ADIFF ####Sh[place]la Argqrvul[address] [place] [address] LABORATORYOrdered By: SYSTEM SYSTEM on 04-21-2024 Basophil, [...] 04-21-2024 Magnesium [Mass/Vol] 1.8 mg/dL Normal 1.8-2.4 [facility] ([place]) Comment on above: Performed By: #### B 12 ####[address] [address]#### GFR, CBC, ANEU, BMP, MG, ADIFF ####[facility]832 [place], [place] [address] .Auto Diffon 04-20-2024 Basophil, Absolute 0.0 10 3/mcL Normal 0.0-0.2 [facility] ([place]) Comment on above: Performed By: #### R BCP #### [address] [address] Basophils/100 WBC (Bld) 0.2 % Normal 0.0-2.5 [facility] ([place] Comment on above: Performed By: #### R BCP #### [address] [address] Eosinophil, Absolute 0.0 10 3/mcL Normal 0.0-0.4 [facility] ([place]) Comment on above: Performed By: #### R BCP #### [address] [address] Eosinophils/100 WBC (Bld) 0.0 % Normal 0.0-7.0 [facility] ([place] Comment on above: Performed By: #### R BCP #### [address] [address] Lymphocyte, Absolute 1.0 10 3/mcL Normal 0.8-3.9 [facility] ([place]) Comment on above: Performed By: #### R BCP #### [address] [address] Lymphocytes/100 WBC (Bld) 8.7 % Low 10.0-50.0 [facility] ([place] Comment on above: Performed By: #### R BCP #### [address] [address] Monocyte, Absolute 1.0 10 3/mcL Normal 0.2-1.0 [facility] ([place]) Comment on above: Performed By: #### R BCP #### [address] [address] Monocytes/100 WBC (Bld) 8.8 % Normal 1.7-13.0 [facility] ([place] Comment on above: Performed By: #### R BCP #### [address] [address] Neutrophils/100 WBC (Bld) 82.3 % High 37.0-80.0 [facility] ([place] Comment on above: Performed By: #### R BCP #### [address] [address] .GFRon 04-20-2024 GFR 53 ml/min/1.73sqm Normal [facility] ([place] Comment on above: Result Comment: [...] meters Performed By: #### R BCP #### [address] [address] GFR Non- 44 ml/min/1.73sqm Normal [facility] ([place] Comment on above: Result Comment: [...] meters Performed By: #### R BCP #### [address] [address] .NEUABSon 04-20-2024 Neutrophil, Absolute 9.2 10 3/mcL High 2.9-6.2 [facility] ([place] Comment on above: Performed By: #### R BCP #### [place] [id number] BMPon 04-20-2024 BUN/Creatinine Ratio 18 ratio Normal 7-27 [facility] ([place] Comment on above: Performed By: #### R BCP #### [place] [phone] Calcium [Mass/Vol] 8.4 mg/dL Normal 8.4-10.2 [facility] ([place] Comment on above: Performed By: #### R BCP #### [address] [address] Chloride [Moles/Vol] 95 mmol/L Low 98-107 [facility] ([place] Comment on above: Performed By: #### R BCP #### [place] [id number] CO2 [Moles/Vol] 22 mmol/L Low 23-31 [facility] ([place] Comment on above: Performed By: #### R BCP #### [address] [address] Creatinine [Mass/Vol] 1.22 mg/dL High 0.55-1.02 [facility] ([place] Comment on above: Performed By: #### R BCP #### [place] [id number] Electrolyte Balance 11.0 mEq/L Normal 4.0-15.0 [facility] ([place] Comment on above: Performed By: #### R BCP #### [address] [address] Glucose [Mass/Vol] 91 mg/dL Normal 83-110 [facility] ([place] Comment on above: Performed By: #### R BCP #### [place] [id number] Potassium [Moles/Vol] 3.8 mmol/L Normal 3.5-5.1 [facility] [place] Comment on above: Performed By: #### R BCP #### [address] [address] Sodium [Moles/Vol] 128 mmol/L Low 136-145 [facility] ([place] Comment on above: Performed By: #### R BCP #### [place] [phone] Urea nitrogen [Mass/Vol] 22 mg/dL High 7-18 [facility] [place] Comment on above: Performed By: #### R BCP #### [place] [id number] CBCon 04-20-2024 Erythrocyte distribution width (RBC) [Ratio] 16.5 % High 11.5-14.5 [facility] [place] Comment on above: Performed By: #### R BCP #### [address] [address] Hematocrit (Bld) [Volume fraction] 26.2 % Low 37.0-47.0 [facility] [place] Comment on above: Performed By: #### R BCP #### [place] [id number] Hgb 8.9 G/dL Low 12.0-16.0 [facility] [place] Comment on above: Performed By: #### R BCP #### [place] [id number] MCH (RBC) [Entitic mass] 32.7 pg High 27.0-31.2 [facility] [place] Comment on above: Performed By: #### R BCP #### [place] [phone] MCHC 33.9 G/dL Normal 33.0-37.0 [facility] [place] Comment on above: Performed By: #### R BCP #### [address] [address] MCV (RBC) [Entitic vol] 96.6 fL High 80.0-94.0 [facility] [place] Comment on above: Performed By: #### R BCP #### [place] [address] Platelet 171 10 3/mcL Normal 130-400 [facility] ([place] Comment on above: Performed By: #### R BCP #### [place] [address] Platelet mean volume (Bld) [Entitic vol] 9.2 fL Normal 7.4-10.4 [facility] ([place] Comment on above: Performed By: #### R BCP #### [place] [address] RBC 2.72 10 6/mcL Low 4.20-5.40 [facility] ([place] Comment on above: Performed By: #### R BCP #### [place] [id number] WBC 11.2 10 3/mcL High 4.6-10.8 [facility] ([place] Comment on above: Performed By: #### R BCP #### [place] [address] LABORATORYOrdered By: Wilma Lawler on 04-20-2024 Hemoglobin.gastroint [...] ng/L Male: 0-76 ng/L Testing performed on [place] using a homogeneous sandwich chemiluminescent immunoassay based on [employer] technology. Urea nitrogen [Mass/Vol] 22 mg/dL High 7 - 18 mg/dL AO ADM SS Urea nitrogen/Creatinine [Mass ratio] 18 ratio Normal 7 - 27 ratio AO ADM SS WBC (Bld) [#/Vol] 11.2 103/mcL High 4.6 - 10.8 10^3/mcL AO Workflow SS MGon 04-20-2024 Magnesium [Mass/Vol] 1.8 mg/dL Normal 1.8-2.4 [facility] ([place] Comment on above: Performed By: #### R BCP #### [place] [address] NAURon 04-20-2024 Sodium [Moles/Vol] 10 mmol/L Low 20-110 [facility] ([place] Comment on above: Performed By: #### N AUR ####Shahla [address] [address]#### OSMOU ####[address] [address] No Panel Informationon 04-20 Culture Urine >100,000 cfu/ml Escherichia coli ILIR to follow [facility] OCC (LAB)on 04-20-2024 Occult Blood Fecal Negative Normal Negative [facility] ([place] Comment on above: Performed By: #### O CC ####[place] [address] [place], [place] [address] OSMOSon 04-20-2024 Osmolality [Osmolality] 270 mosm/kg Low 275-300 [facility] [place] Comment on above: Performed By: #### O SMOS #### [address] [address] OSMOUon 04-20-2024 U Osmolality 321 mOsm/kg Low 390-1090 [facility] ([place] Comment on above: Performed By: #### N AUR ####[address] [address]#### OSMOU ####[address] [address] TROPHSon 04-20-2024 High Sensitivity Troponin I 47 ng/L Normal 0-51 [facility] ([place] Comment on above: Result Comment: High Sensitive Troponin I Reference Ranges: Female: 0-51 ng/L Male: 0-76 ng/L Testing performed on [place] using a homogeneous sandwich chemiluminescent immunoassay based on [employer] technology. Performed By: #### R BCP #### [place] [address] .Auto Diffon 04-19-2024 Basophil, Absolute 0.0 10 3/mcL Normal 0.0-0.2 [facility] ([place] Comment on above: Performed By: #### C MP, ADIFF, CK, CBC, GFR, MDW, ANEU, TROPHS, LIP ####[place] [address] [place], [place] [address] Basophils/100 WBC (Bld) 0.4 % Normal 0.0-2.5 [facility] [place] Comment on above: Performed By: #### C MP, ADIFF, CK, CBC, GFR, MDW, ANEU, TROPHS, LIP ####[place] [address] [place], [place] [address] Eosinophil, Absolute 0.0 10 3/mcL Normal 0.0-0.4 [facility] ([place] Comment on above: Performed By: #### C MP, ADIFF, CK, CBC, GFR, MDW, ANEU, TROPHS, LIP ####[place] [address] [place], [place] [address] Eosinophils/100 WBC (Bld) 0.1 % Normal 0.0-7.0 [facility] [place] Comment on above: Performed By: #### C MP, ADIFF, CK, CBC, GFR, MDW, ANEU, TROPHS, LIP ####Sh[place]la [address]af[address] [place], [place] [address] Lymphocyte, Absolute 0.9 10 3/mcL Normal 0.8-3.9 [facility] ([place] Comment on above: Performed By: #### C MP, ADIFF, CK, CBC, GFR, MDW, ANEU, TROPHS, LIP ####Sh[place] S[address]znxnb[address] [place], [place] [address] Lymphocytes/100 WBC (Bld) 7.2 % Low 10.0-50.0 [facility] [place] Comment on above: Performed By: #### C MP, ADIFF, CK, CBC, GFR, MDW, ANEU, TROPHS, LIP ####[place] [address] [place], [place] [address] Monocyte, Absolute 1.2 10 3/mcL High 0.2-1.0 [facility] ([place] Comment on above: Performed By: #### C MP, ADIFF, CK, CBC, GFR, MDW, ANEU, TROPHS, LIP ####[place] [address] [place], [place] [address] Monocytes/100 WBC (Bld) 9.9 % Normal 1.7-13.0 [facility] [place] Comment on above: Performed By: #### C MP, ADIFF, CK, CBC, GFR, MDW, ANEU, TROPHS, LIP ####Sh[place]la [address] [place], [place] [address] Neutrophils/100 WBC (Bld) 82.4 % High 37.0-80.0 [facility] [place] Comment on above: Performed By: #### C MP, ADIFF, CK, CBC, GFR, MDW, ANEU, TROPHS, LIP ####Sh[place]la [address] [place], [place] [address] .GFRon 04-19-2024 GFR 48 ml/min/1.73sqm Normal [facility] [place] Comment on above: Result Comment: GFR Population [...] CBC, GFR, MDW, ANEU, TROPHS, LIP ####Sh[place]la [address] [place], [place] [address] GFR Non- 40 ml/min/1.73sqm Normal [facility] [place] Comment on above: Result Comment: GFR Population [...] CBC, GFR, MDW, ANEU, TROPHS, LIP ####Shahla Btgghxom[address] [place], [place] [address] .Won 04-19-2024 Monocyte Distribution Width Not performed Normal 0.00-20.00 [facility] ([place]) Comment on above: Result Comment: W testing performed only on adult ER patients between the ages of 18-89 years. Performed By: #### C MP, ADIFF, CK, CBC, GFR, MDW, ANEU, TROPHS, LIP ####[place] [address] [place], [place] [address] .NEUABSon 04-19-2024 Neutrophil, Absolute 9.8 10 3/mcL High 2.9-6.2 [facility] ([place] Comment on above: Performed By: #### C MP, ADIFF, CK, CBC, GFR, MDW, ANEU, TROPHS, LIP ####Shahla [address] [place], [place] [address] .Urinalysis Microscopic (AO) on 04-19-2024 UA RBC 0-5 Abnormal None Seen [facility] [place] Comment on above: Performed By: #### U A, UAMICAO ####[place] [address] [place] [address] UA Squam Epithelial 0-5 Abnormal None Seen [facility] ([place] Comment on above: Performed By: #### U A, UAMICAO ####[place] [address] [place] [address] UA WBC 0-5 Abnormal None Seen [facility] [place] Comment on above: Performed By: #### U A, UAMICAO ####Shahla [address] [place] [id number] CBCon 04-19-2024 Erythrocyte distribution width (RBC) [Ratio] 16.4 % High 11.5-14.5 [facility] [place] Comment on above: Performed By: #### C MP, ADIFF, CK, CBC, GFR, MDW, ANEU, TROPHS, LIP ####Shahla [address]em[address] [place], [place] [address] Hematocrit (Bld) [Volume fraction] 26.7 % Low 37.0-47.0 [facility] [place] Comment on above: Performed By: #### C MP, ADIFF, CK, CBC, GFR, MDW, ANEU, TROPHS, LIP ####[place] [address] [place] [id number] Hgb 8.9 G/dL Low 12.0-16.0 [facility] [place] Comment on above: Performed By: #### C MP, ADIFF, CK, CBC, GFR, MDW, ANEU, TROPHS, LIP ####[place] [address] [place], [place] [address] MCH (RBC) [Entitic mass] 32.1 pg High 27.0-31.2 [facility] [place] Comment on above: Performed By: #### C MP, ADIFF, CK, CBC, GFR, MDW, ANEU, TROPHS, LIP ####[place] [address] [place], [place] [address] MCHC 33.5 G/dL Normal 33.0-37.0 [facility] [place] Comment on above: Performed By: #### C MP, ADIFF, CK, CBC, GFR, MDW, ANEU, TROPHS, LIP ####[place] [address] [place], [place] [address] MCV (RBC) [Entitic vol] 96.0 fL High 80.0-94.0 [facility] [place] Comment on above: Performed By: #### C MP, ADIFF, CK, CBC, GFR, MDW, ANEU, TROPHS, LIP ####[place] [address] [place], [place] [address] Platelet 183 10 3/mcL Normal 130-400 [facility] ([place] Comment on above: Performed By: #### C MP, ADIFF, CK, CBC, GFR, MDW, ANEU, TROPHS, LIP ####Shahla [address] [place], [place] [address] Platelet mean volume (Bld) [Entitic vol] 9.0 fL Normal 7.4-10.4 [facility] ([place]) Comment on above: Performed By: #### C MP, ADIFF, CK, CBC, GFR, MDW, ANEU, TROPHS, LIP ####Shahla [address]zbhgldq[address] [place], [place] [address] RBC 2.79 10 6/mcL Low 4.20-5.40 [facility] ([place] Comment on above: Performed By: #### C MP, ADIFF, CK, CBC, GFR, MDW, ANEU, TROPHS, LIP ####Sh[place] [place], [place] [address] WBC 11.9 10 3/mcL High 4.6-10.8 [facility] ([place] Comment on above: Performed By: #### C MP, ADIFF, CK, CBC, GFR, MDW, ANEU, TROPHS, LIP ####Sh[place] [place], [place] [address] CKon 04-19-2024 CK [Catalytic activity/Vol] 108 U/L Normal 26-192 [facility] [place] Comment on above: Performed By: #### C MP, ADIFF, CK, CBC, GFR, MDW, ANEU, TROPHS, LIP ####Sh[address] [place], [place] [address] CMPon 04-19-2024 Albumin Level 2.7 G/dL Low 3.4-4.8 [facility] ([place] Comment on above: Performed By: #### C MP, ADIFF, CK, CBC, GFR, MDW, ANEU, TROPHS, LIP ####[place] [place], [place] [address] Albumin/Globulin [Mass ratio] 0.7 {ratio} Low 1.1-2.5 [facility] [place] Comment on above: Performed By: #### C MP, ADIFF, CK, CBC, GFR, MDW, ANEU, TROPHS, LIP ####[address] [place], [place] [address] ALP [Catalytic activity/Vol] 146 U/L High 40-135 [facility] [place] Comment on above: Performed By: #### C MP, ADIFF, CK, CBC, GFR, MDW, ANEU, TROPHS, LIP ####Shahla Ljnafr[address] [place], [place] [address] ALT [Catalytic activity/Vol] 40 U/L Normal 14-59 [facility] ([place] Comment on above: Performed By: #### C MP, ADIFF, CK, CBC, GFR, MDW, ANEU, TROPHS, LIP ####Shahla Q[address] [place], [place] [address] AST [Catalytic activity/Vol] 33 U/L Normal 10-40 [facility] [place] Comment on above: Performed By: #### C MP, ADIFF, CK, CBC, GFR, MDW, ANEU, TROPHS, LIP ####Shahla Brh[address]zd[address] [place], [place] [address] Bili Total 0.6 mg/dL Normal 0.2-1.0 [facility] [place] Comment on above: Result Comment: Use of this assay is not recommended for patients undergoing treatment with eltrombopag due to the potential for falsely elevated results. Performed By: #### C MP, ADIFF, CK, CBC, GFR, MDW, ANEU, TROPHS, LIP ####Shahla Xjxwf[address] [place], [place] [address] BUN/Creatinine Ratio 21 ratio Normal 7-27 [facility] ([place]) Comment on above: Performed By: #### C MP, ADIFF, CK, CBC, GFR, MDW, ANEU, TROPHS, LIP ####Shahla [address]ofbf[address] [place], [place] [address] Calcium [Mass/Vol] 8.9 mg/dL Normal 8.4-10.2 [facility] ([place]) Comment on above: Performed By: #### C MP, ADIFF, CK, CBC, GFR, MDW, ANEU, TROPHS, LIP ####Shahla V[address]fw[address] [place], [place] [address] Chloride [Moles/Vol] 92 mmol/L Low 98-107 [facility] ([place]) Comment on above: Performed By: #### C MP, ADIFF, CK, CBC, GFR, MDW, ANEU, TROPHS, LIP ####Shahla Zaarjkwg[address] [place], [place] [address] CO2 [Moles/Vol] 24 mmol/L Normal 23-31 [facility] ([place]) Comment on above: Performed By: #### C MP, ADIFF, CK, CBC, GFR, MDW, ANEU, TROPHS, LIP ####Shahla [address]qj[address] [place], [place] [address] Creatinine [Mass/Vol] 1.32 mg/dL High 0.55-1.02 [facility] [place] Comment on above: Performed By: #### C MP, ADIFF, CK, CBC, GFR, MDW, ANEU, TROPHS, LIP ####Shahla [address] [place], [place] [address] Electrolyte Balance 11.0 mEq/L Normal 4.0-15.0 [facility] ([place]) Comment on above: Performed By: #### C MP, ADIFF, CK, CBC, GFR, MDW, ANEU, TROPHS, LIP ####Shahla Gillis[address] [place], [place] [address] Globulin 4.1 G/dL Normal [facility] ([place] Comment on above: Performed By: #### C MP, ADIFF, CK, CBC, GFR, MDW, ANEU, TROPHS, LIP ####Shahla [address] [place], [place] [address] Glucose [Mass/Vol] 95 mg/dL Normal 83-110 [facility] ([place]) Comment on above: Performed By: #### C MP, ADIFF, CK, CBC, GFR, MDW, ANEU, TROPHS, LIP ####Shahla [address] [place], [place] [address] Potassium [Moles/Vol] 4.0 mmol/L Normal 3.5-5.1 [facility] [place] Comment on above: Performed By: #### C MP, ADIFF, CK, CBC, GFR, MDW, ANEU, TROPHS, LIP ####Shahla [address] [place], [place] [address] Sodium [Moles/Vol] 127 mmol/L Low 136-145 [facility] ([place]) Comment on above: Performed By: #### C MP, ADIFF, CK, CBC, GFR, MDW, ANEU, TROPHS, LIP ####Shahla [address] [place], [place] [address] Total Protein 6.8 G/dL Normal 6.4-8.2 [facility] ([place]) Comment on above: Performed By: #### C MP, ADIFF, CK, CBC, GFR, MDW, ANEU, TROPHS, LIP ####Shahla Lxex[address]wj[address] [place], [place] [address] Urea nitrogen [Mass/Vol] 28 mg/dL High 7-18 [facility] [place] Comment on above: Performed By: #### C MP, ADIFF, CK, CBC, GFR, MDW, ANEU, TROPHS, LIP ####Shahla Icushqqs[address] [place], [place] [address] CT HEAD OR BRAIN W/O CONTRAS Ton [...] Date: 04/19/2024 11:38:20 PM Ordering Provider: KARAN [facility]) CT SPINE CERVICAL W/O CONTRA Forrest [...] Date: 04/19/2024 11:32:28 PM Ordering Provider: KARAN [facility]) CVFLURVon 04-19-2024 FLU A PCR Negative Normal Negative [facility]) Comment on above: Performed By: #### C VFLURV ####Shahla [address]hlxjt[address] [place], [place] [address] FLU B PCR Negative Normal Negative [facility]) Comment on above: Performed By: #### C VFLURV ####Shahla [address]rzo[address] [place], [place] [address] RSV PCR Negative Normal Negative [facility]) Comment on above: Performed By: #### C VFLURV ####Shahla Zxgacvzd[address] [place], [place] [address] SARS-CoV-2 (COVID-19) RNA TL+probe Ql (Unsp spec) Negative Normal Negative [facility] ([place]) Comment on above: Result Comment: Resu lts [...] inaccurate positive results. Performed By: #### C [facility] ####Shahla Iprkwcbm[address] [place], [place] [address] LABORATORYOrdered By: SYSTEM SYSTEM on 04-19-2024 Basophil, [...] ng/L Male: 0-76 ng/L Testing performed on Tigerlily using a homogeneous sandwich chemiluminescent immunoassay based on [employer] technology. Urea nitrogen [Mass/Vol] 28 mg/dL High [...] Level 66 U/L Normal 16-77 [facility] ([place]) Comment on above: Performed By: #### C MP, ADIFF, CK, CBC, GFR, MDW, ANEU, TROPHS, LIP ####Shahla Dgzbccbl[address] [place], [place] [address] TROPHSon 04-19-2024 High Sensitivity Troponin I 60 ng/L High 0-51 [facility] [place] Comment on above: Result Comment: High Sensitive Troponin I Reference Ranges: Female: 0-51 ng/L Male: 0-76 ng/L Testing performed on Tigerlily using a homogeneous sandwich chemiluminescent immunoassay based on [employer] technology. Performed By: #### C MP, ADIFF, CK, CBC, GFR, MDW, ANEU, TROPHS, LIP ####Shahla [address]zkaed[address] [place], [place] [address] UAon 04-19-2024 Color (U) Yellow Normal [facility] ([place]) Comment on above: Performed By: #### U A, UAMICAO ####Shahla [address] [place], [place] [address] Glucose (U) [Mass/Vol] Negative Normal Negative [facility] ([place]) Comment on above: Performed By: #### U A, UAMICAO ####Shahla [address] [place], [place] [address] Ketones Ql (U) Negative Normal Negative [facility] ([place]) Comment on above: Performed By: #### U A, UAMICAO ####Shahla [address] [place], [place] [address] UA Appear Clear Normal Clear [facility] ([place] Comment on above: Performed By: #### U A, UAMICAO ####Shahla [address] [place], [place] [address] UA Blood Moderate Abnormal Negative [facility] ([place] Comment on above: Performed By: #### U A, UAMICAO ####Shahla [address] [place], [place] [address] UA Leuk Est Negative Normal Negative [facility] ([place]) Comment on above: Performed By: #### U A UAMICAO ####Shahla [address] [place], [place] [address] UA Nitrite Negative Normal Negative [facility] ([place] Comment on above: Performed By: #### U Palmira UAMICAO ####Shahla [address] [place], [place] [address] UA pH 5.5 Normal 5.0 - 8.0 [facility] ([place] Comment on above: Performed By: #### U Palmira UAMICAO ####Shahla [address] [place], [place] [address] UA Protein 30 mg/dL Normal Negative [facility] ([place]) Comment on above: Performed By: #### U Palmira UAMICAO ####Shahla [address] [place], [place] [address] UA Spec Grav 1.010 Abnormal 1.015-1.025 [facility] ([place]) Comment on above: Performed By: #### Kristen Chavis UAMICAO ####Sh[address] [place], [place] [address] UA Specimen Type Clean Catch Normal [facility] ([place] Comment on above: Performed By: #### Kristen Chavis UAMICAO ####Sh[address] [place], [place] [address] UA Urobilinogen 0.2 E.U./dL Normal 0.2-1.0 [facility] ([place] Comment on above: Performed By: #### U Palmira UAMICAO ####Shahla [address] [place], [place] [address] Urobilinogen (U) [Mass/Vol] Negative Normal Negative [facility] ([place] Comment on above: Performed By: #### U Palmira UAMICAO ####Shahla [address] [place], [place] [address] XR CHEST 1 VIEWon 04-19-2024 XR CHEST [...] Date: 04/19/2024 11:32:35 PM Ordering Provider: KARAN [facility] ([place]) XR HIP LEFT W/PELVIS 4 VIEWS on [...] Date: 04/19/2024 11:31:45 PM Ordering Provider: KARAN [facility] ([place]) .Auto Diffon 04-16-2024 Basophil, Absolute 0.1 10 3/mcL Normal 0.0-0.2 [facility]) Comment on above: Performed By: #### C RP, ESR, CBC, ANEU, ADIFF ####[facility] [place], [place] [address] Basophils/100 WBC (Bld) 0.4 % Normal 0.0-2.5 [facility] ([place] Comment on above: Performed By: #### C RP, ESR, CBC, ANEU, ADIFF ####Shahla [address] [place], [place] [address] Eosinophil, Absolute 0.1 10 3/mcL Normal 0.0-0.4 [facility] ([place]) Comment on above: Performed By: #### C RP, ESR, CBC, ANEU, ADIFF ####Shahla [address] [place], [place] [address] Eosinophils/100 WBC (Bld) 0.5 % Normal 0.0-7.0 [facility] ([place] Comment on above: Performed By: #### C RP, ESR, CBC, ANEU, ADIFF ####Shahla [address] [place], [place] [address] Lymphocyte, Absolute 1.3 10 3/mcL Normal 0.8-3.9 [facility] ([place]) Comment on above: Performed By: #### C RP, ESR, CBC, ANEU, ADIFF ####Shahla [address] [place], [place] [address] Lymphocytes/100 WBC (Bld) 10.0 % Normal 10.0-50.0 [facility] ([place] Comment on above: Performed By: #### C RP, ESR, CBC, ANEU, ADIFF ####Shahla [address] [place], [place] [address] Monocyte, Absolute 1.0 10 3/mcL Normal 0.2-1.0 [facility] ([place]) Comment on above: Performed By: #### C RP, ESR, CBC, ANEU, ADIFF ####Shahla [address] [place], [place] [address] Monocytes/100 WBC (Bld) 8.0 % Normal 1.7-13.0 [facility] ([place]) Comment on above: Performed By: #### C RP, ESR, CBC, ANEU, ADIFF ####Shahla [address] [place], [place] [address] Neutrophils/100 WBC (Bld) 81.1 % High 37.0-80.0 [facility] ([place]) Comment on above: Performed By: #### C RP, ESR, CBC, ANEU, ADIFF ####Shahla [address] [place], [place] [address] .NEUABSon 04-16-2024 Neutrophil, Absolute 10.3 10 3/mcL High 2.9-6.2 [facility] ([place]) Comment on above: Performed By: #### C RP, ESR, CBC, ANEU, ADIFF ####Shahla [address] [place], [place] [address] CBCon 04-16-2024 Erythrocyte distribution width (RBC) [Ratio] 16.8 % High 11.5-14.5 [facility] ([place] Comment on above: Performed By: #### C RP, ESR, CBC, ANEU, ADIFF ####Shahla [address] [place], [place] [address] Hematocrit (Bld) [Volume fraction] 30.2 % Low 37.0-47.0 [facility] ([place] Comment on above: Performed By: #### C RP, ESR, CBC, ANEU, ADIFF ####Shahla [address] [place], [place] [address] Hgb 10.0 G/dL Low 12.0-16.0 [facility] ([place] Comment on above: Performed By: #### C RP, ESR, CBC, ANEU, ADIFF ####Shahla [address] [place], [place] [address] MCH (RBC) [Entitic mass] 32.5 pg High 27.0-31.2 [facility] ([place] Comment on above: Performed By: #### C RP, ESR, CBC, ANEU, ADIFF ####Shahla [address] [place], [place] [address] MCHC 33.3 G/dL Normal 33.0-37.0 [facility] ([place] Comment on above: Performed By: #### C RP, ESR, CBC, ANEU, ADIFF ####Shahla [address] [place], [place] [address] MCV (RBC) [Entitic vol] 97.6 fL High 80.0-94.0 [facility] ([place] Comment on above: Performed By: #### C RP, ESR, CBC, ANEU, ADIFF ####Shahla [address] [place], [place] [address] Platelet 243 10 3/mcL Normal 130-400 [facility] ([place]) Comment on above: Performed By: #### C RP, ESR, CBC, ANEU, ADIFF ####Shahla [address] [place], [place] [address] Platelet mean volume (Bld) [Entitic vol] 9.1 fL Normal 7.4-10.4 [facility] ([place]) Comment on above: Performed By: #### C RP, ESR, CBC, ANEU, ADIFF ####Shahla [address] [place], [place] [address] RBC 3.09 10 6/mcL Low 4.20-5.40 [facility] ([place]) Comment on above: Performed By: #### C RP, ESR, CBC, ANEU, ADIFF ####Shahla [address] [place], [place] [address] WBC 12.7 10 3/mcL High 4.6-10.8 [facility] ([place]) Comment on above: Performed By: #### C RP, ESR, CBC, ANEU, ADIFF ####Shahla [address] [place], [place] [address] CRPon 04-16-2024 C-Reactive Protein 5.8 mg/dL High 0.0-0.3 [facility] ([place]) Comment on above: Performed By: #### C RP, ESR, CBC, ANEU, ADIFF ####Shahla [address] [place], [place] [address] CT HIP W/O CONTRAST LEFTon 0 04-16-2024 [...] in the right femoral head on the steel checker image and 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 Suggest right hip CT or MRI 2 clarify and exclude this possibility. Interpreted by: Wolf Kenney MD Preliminary Report By: Wolf Kenney MD Electronically signed By Wolf Kenney MD Dictated Date: 04/16/2024 3:29:38 PM Prelim Date: 04/16/2024 3:37:27 PM Sign Date: 04/16/2024 3:37:27 PM Ordering Provider: SHWETHA [facility] ([place]) ESRon 04-16-2024 Erythrocyte Sed Rate 109 mm/hr High 0-30 [facility] ([place]) Comment on above: Performed By: #### C RP, ESR, CBC, ANEU, ADIFF ####Shahla [address] [place], [place] [address] XR HAND MINIMUM 3 VIEWS LEFT on [...] 03/03/2024 4:32:59 PM Ordering Provider: AKI TADEO [facility] ([place]) XR SPINE LUMBAR AP/LATon XR SPINE LUMBAR [...] 02/24/2024 4:20:13 PM Ordering Provider: LUIS ELLIOTT [facility] ([place]) XR HIP 2-3 VIEWS LEFTon 04-3 XR [...] 02/18/2024 10:38:19 AM Ordering Provider: LUIS [facility] ([place]) .Auto Diffon 02-17-2024 Basophil, Absolute 0.0 10 3/mcL Normal 0.0-0.2 [facility] ([place]) Comment on above: Performed By: #### O SMOS #### [address] [address] Basophils/100 WBC (Bld) 0.2 % Normal 0.0-2.5 [facility] ([place] Comment on above: Performed By: #### O SMOS #### [address] [address] Eosinophil, Absolute 0.1 10 3/mcL Normal 0.0-0.4 [facility] ([place]) Comment on above: Performed By: #### O SMOS #### [address] [address] Eosinophils/100 WBC (Bld) 0.7 % Normal 0.0-7.0 [facility] [place] Comment on above: Performed By: #### O SMOS #### [address] [address] Lymphocyte, Absolute 1.5 10 3/mcL Normal 0.8-3.9 [facility] ([place]) Comment on above: Performed By: #### O SMOS #### [address] [address] Lymphocytes/100 WBC (Bld) 17.3 % Normal 10.0-50.0 [facility] ([place] Comment on above: Performed By: #### O SMOS #### [address] [address] Monocyte, Absolute 0.6 10 3/mcL Normal 0.2-1.0 [facility] ([place]) Comment on above: Performed By: #### O SMOS #### [address] [address] Monocytes/100 WBC (Bld) 7.2 % Normal 1.7-13.0 [facility] ([place]) Comment on above: Performed By: #### O SMOS #### [address] [address] Neutrophils/100 WBC (Bld) 74.6 % Normal 37.0-80.0 [facility] ([place]) Comment on above: Performed By: #### O SMOS #### [address] [address] .GFRon 02-17-2024 GFR 50 ml/min/1.73sqm Normal [facility] ([place]) Comment on above: Result Comment: [...] meters Performed By: #### O SMOS #### [address] [address] GFR Non- 42 ml/min/1.73sqm Normal [facility] ([place] Comment on above: Result Comment: [...] meters Performed By: #### O SMOS #### [address] [address] .NEUABSon 02-17-2024 Neutrophil, Absolute 6.4 10 3/mcL High 2.9-6.2 [facility] ([place]) Comment on above: Performed By: #### O SMOS #### [address] [address] BMPon 02-17-2024 BUN/Creatinine Ratio 20 ratio Normal 7-27 [facility] ([place] Comment on above: Performed By: #### O SMOS #### [place] [id number] Calcium [Mass/Vol] 9.2 mg/dL Normal 8.4-10.2 [facility] ([place]) Comment on above: Performed By: #### O SMOS #### [place] [address] Chloride [Moles/Vol] 104 mmol/L Normal 98-107 [facility] ([place] Comment on above: Performed By: #### O SMOS #### [place] [address] CO2 [Moles/Vol] 25 mmol/L Normal 23-31 [facility] ([place]) Comment on above: Performed By: #### O SMOS #### [place] [address] Creatinine [Mass/Vol] 1.27 mg/dL High 0.55-1.02 [facility] [place] Comment on above: Performed By: #### O SMOS #### [place] [id number] Electrolyte Balance 12.0 mEq/L Normal 4.0-15.0 [facility] ([place] Comment on above: Performed By: #### O SMOS #### [place] [address] Glucose [Mass/Vol] 111 mg/dL High 83-110 [facility] ([place]) Comment on above: Performed By: #### O SMOS #### [address] [address] Potassium [Moles/Vol] 4.3 mmol/L Normal 3.5-5.1 [facility] [place] Comment on above: Performed By: #### O SMOS #### [address] [address] Sodium [Moles/Vol] 141 mmol/L Normal 136-145 [facility] ([place]) Comment on above: Performed By: #### O SMOS #### [address] [address] Urea nitrogen [Mass/Vol] 25 mg/dL High 7-18 [facility] [place] Comment on above: Performed By: #### O SMOS #### [address] [address] CBCon 02-17-2024 Erythrocyte distribution width (RBC) [Ratio] 16.5 % High 11.5-14.5 [facility] [place] Comment on above: Performed By: #### O SMOS #### [address] [address] Hematocrit (Bld) [Volume fraction] 33.3 % Low 37.0-47.0 [facility] [place] Comment on above: Performed By: #### O SMOS #### [address] [address] Hgb 11.1 G/dL Low 12.0-16.0 [facility] [place] Comment on above: Performed By: #### O SMOS #### [address] [address] MCH (RBC) [Entitic mass] 31.9 pg High 27.0-31.2 [facility] [place] Comment on above: Performed By: #### O SMOS #### [address] [address] MCHC 33.5 G/dL Normal 33.0-37.0 [facility] [place] Comment on above: Performed By: #### O SMOS #### [address] [address] MCV (RBC) [Entitic vol] 95.2 fL High 80.0-94.0 [facility] [place] Comment on above: Performed By: #### O SMOS #### [address] [address] Platelet 239 10 3/mcL Normal 130-400 [facility] ([place]) Comment on above: Performed By: #### O SMOS #### [address] [address] Platelet mean volume (Bld) [Entitic vol] 9.8 fL Normal 7.4-10.4 [facility] ([place]) Comment on above: Performed By: #### O SMOS #### [place] [id number] RBC 3.49 10 6/mcL Low 4.20-5.40 [facility] ([place]) Comment on above: Performed By: #### O SMOS #### [address] [address] WBC 8.6 10 3/mcL Normal 4.6-10.8 [facility] ([place]) Comment on above: Performed By: #### O SMOS #### [address] [address] LABORATORYOrdered By: SYSTEM SYSTEM on 02-17-2024 Basophil, [...] [place] 08-30-2023 Gastrin 76.7 pg/mL Normal <115.0 [facility] [place] Comment on above: Result Comment: The Gastrin test was performed using the Siemens Immulite chemiluminescent immunometric method. Results obtained with different assay methods or kits cannot be used interchangeably. Performed By: [address] [address] [employer] Supervisor: Lucio Chairez III, M.D. CLIA#: [id number] Performed By: #### G AST, RETO ####Shahla [address] [place], [place] [address] RETO (AO)on 08-29-2023 Immature Retic Fraction 0.45 IRF Normal 0.20-0.46 [facility] [place] Comment on above: Performed By: #### G AST, RETO ####Shahla [address] [place], [place] [address] Reticulocytes, Auto 1.0 % Normal 0.2-2.3 [facility] ([place]) Comment on above: Performed By: #### G AST, RETO ####Shahla [address] [place], [place] [address] METon 08-06-2023 Methylmalonic Acid, Blood 0.42 umol/l High <=0.40 [facility] [place] Comment on above: Result Comment: This test was developed and its performance characteristics determined by [facility] ([facility] It has not been cleared or approved by the FDA. [facility] is regulated under CLIA as qualified to perform high-complexity testing. This test is used for clinical purposes. It should not be regarded as investigational or for research. Performed By: [address] [address] [employer] Supervisor: Lucio Chairez III, M.D. CLIA#: [id number] Performed By: #### R BCP #### [address] [address] .Auto Diffon 08-01-2023 Basophil, Absolute 0.0 10 3/mcL Normal 0.0-0.2 [facility] ([place]) Comment on above: Performed By: #### M MA, ANEU, CBC, GFR, ADIFF, BMP ####[place] [address]#### HOMO ####[address] [address] Basophils/100 WBC (Bld) 0.4 % Normal 0.0-2.5 [facility] [place] Comment on above: Performed By: #### Ranjit MA, ANEU, CBC, GFR, ADIFF, BMP ####[place] [address]#### HOMO ####[address] [address] Eosinophil, Absolute 0.1 10 3/mcL Normal 0.0-0.4 [facility] ([place]) Comment on above: Performed By: #### Ranjit MA, ANEU, CBC, GFR, ADIFF, BMP ####[place] [address]#### HOMO ####[address] [address] Eosinophils/100 WBC (Bld) 1.2 % Normal 0.0-7.0 [facility] ([place]) Comment on above: Performed By: #### Ranjit MA, ANEU, CBC, GFR, ADIFF, BMP ####[place] [address]#### HOMO ####[address] [address] Lymphocyte, Absolute 1.7 10 3/mcL Normal 0.8-3.9 [facility] ([place]) Comment on above: Performed By: #### Ranjit MA, ANEU, CBC, GFR, ADIFF, BMP ####[place] [address]#### HOMO ####[address] [address] Lymphocytes/100 WBC (Bld) 17.7 % Normal 10.0-50.0 [facility] ([place] Comment on above: Performed By: #### Ranjit MA, ANEU, CBC, GFR, ADIFF, BMP ####[address] [place] [address]#### HOMO ####[address] [address] Monocyte, Absolute 0.8 10 3/mcL Normal 0.2-1.0 [facility] ([place]) Comment on above: Performed By: #### Ranjit MA, ANEU, CBC, GFR, ADIFF, BMP ####Shahla [address] [place], [place] [address]#### HOMO ####[address] [address] Monocytes/100 WBC (Bld) 7.8 % Normal 1.7-13.0 [facility] [place] Comment on above: Performed By: #### Ranjit MA, ANEU, CBC, GFR, ADIFF, BMP ####Shahla [address] [address]#### HOMO ####[address] [address] Neutrophils/100 WBC (Bld) 72.9 % Normal 37.0-80.0 [facility] [place] Comment on above: Performed By: #### M MA, ANEU, CBC, GFR, ADIFF, BMP ####[address] [address]#### HOMO ####[address] [address] .GFRon 08-01-2023 GFR Non- 41 ml/min/1.73sqm Normal [facility] [place] Comment on above: Result Comment: GFR Population [...] M MA, ANEU, CBC, GFR, ADIFF, BMP ####[place] [address]#### HOMO ####[address] [address] GFR 50 ml/min/1.73sqm Normal [facility] [place] Comment on above: Result Comment: GFR Population [...] Ranjit GARDNER, ANEU, CBC, GFR, ADIFF, BMP ####[place] [address]#### HOMO ####[place] [address] .NEUABSon 08-01-2023 Neutrophil, Absolute 7.0 10 3/mcL High 2.9-6.2 [facility] ([place] Comment on above: Performed By: #### Ranjit GARDNER ANEU, CBC, GFR, ADIFF, BMP ####[place] [address]#### HOMO ####[place] [address] BMPon 08-01-2023 BUN/Creatinine Ratio 12 ratio Normal 7-27 [facility] ([place] Comment on above: Performed By: #### Ranjit MA, ANEU, CBC, GFR, ADIFF, BMP ####[place] [address]#### HOMO ####[place] [address] Calcium [Mass/Vol] 9.4 mg/dL Normal 8.4-10.2 [facility] ([place] Comment on above: Performed By: #### Ranjit GARDNER ANEU, CBC, GFR, ADIFF, BMP ####[place] [address]#### HOMO ####[place] [address] Chloride [Moles/Vol] 105 mmol/L Normal 98-107 [facility] ([place] Comment on above: Performed By: #### Ranjit GARDNER, ANEU, CBC, GFR, ADIFF, BMP ####[place] [address]#### HOMO ####[place] [address] CO2 [Moles/Vol] 28 mmol/L Normal 23-31 [facility] ([place] Comment on above: Performed By: #### Ranjit GARDNER ANEU, CBC, GFR, ADIFF, BMP ####[address] [place] [address]#### HOMO ####[place] [address] Creatinine [Mass/Vol] 1.29 mg/dL High 0.55-1.02 [facility] [place] Comment on above: Performed By: #### Ranjit GARDNER ANEU, CBC, GFR, ADIFF, BMP ####[place] [address]#### HOMO ####[place] [address] Electrolyte Balance 9.0 mEq/L Normal 4.0-15.0 [facility] ([place] Comment on above: Performed By: #### Ranjit GARDNER ANEU, CBC, GFR, ADIFF, BMP ####[place] [address]#### HOMO ####[place] [address] Glucose [Mass/Vol] 97 mg/dL Normal 83-110 [facility] ([place] Comment on above: Performed By: #### Ranjit GARDNER, ANEU, CBC, GFR, ADIFF, BMP ####[address] [address]#### HOMO ####[address] [address] Potassium [Moles/Vol] 4.9 mmol/L Normal 3.5-5.1 [facility] [place] Comment on above: Performed By: #### Ranjit GARDNER, ANEU, CBC, GFR, ADIFF, BMP ####[place] [address]#### HOMO ####[place] [address] Sodium [Moles/Vol] 142 mmol/L Normal 136-145 [facility] ([place] Comment on above: Performed By: #### Ranjit GARDNER, ANEU, CBC, GFR, ADIFF, BMP ####[place] [address]#### HOMO ####[place] [address] Urea nitrogen [Mass/Vol] 15 mg/dL Normal 7-18 [facility] Comment on above: Performed By: #### Ranjit GARDNER, ANEU, CBC, GFR, ADIFF, BMP ####[place] [address]#### HOMO ####[place] [address] CBCon 08-01-2023 Erythrocyte distribution width (RBC) [Ratio] 16.3 % High 11.5-14.5 [facility] [place] Comment on above: Performed By: #### Ranjit MA, ANEU, CBC, GFR, ADIFF, BMP ####[place] [address]#### HOMO ####[address] [address] Hematocrit (Bld) [Volume fraction] 33.4 % Low 37.0-47.0 [facility] [place] Comment on above: Performed By: #### M MA, ANEU, CBC, GFR, ADIFF, BMP ####[place] [address]#### HOMO ####[place] [address] Hgb 11.0 G/dL Low 12.0-16.0 [facility] ([place] Comment on above: Performed By: #### Ranjit GARDNER, ANEU, CBC, GFR, ADIFF, BMP ####[place] [address]#### HOMO ####[place] [address] MCH (RBC) [Entitic mass] 31.4 pg High 27.0-31.2 [facility] [place] Comment on above: Performed By: #### Ranjit GARDNER, ANEU, CBC, GFR, ADIFF, BMP ####[place] [address]#### HOMO ####[place] [address] MCHC 32.9 G/dL Low 33.0-37.0 [facility] [place] Comment on above: Performed By: #### Ranjit GARDENR ANEU, CBC, GFR, ADIFF, BMP ####[place] [address]#### HOMO ####[place] [address] MCV (RBC) [Entitic vol] 95.4 fL High 80.0-94.0 [facility] ([place] Comment on above: Performed By: #### Ranjit GARDNER, ANEU, CBC, GFR, ADIFF, BMP ####[place] [address]#### HOMO ####[place] [address] Platelet 229 10 3/mcL Normal 130-400 [facility] ([place]) Comment on above: Performed By: #### Ranjit GARDNER, ANEU, CBC, GFR, ADIFF, BMP ####[place] [address]#### HOMO ####[place] [address] Platelet mean volume (Bld) [Entitic vol] 10.0 fL Normal 7.4-10.4 [facility] ([place]) Comment on above: Performed By: #### M KENDRA, ANEU, CBC, GFR, ADIFF, BMP ####[place] [id number] [place] [address]#### HOMO ####[place] [address] RBC 3.50 10 6/mcL Low 4.20-5.40 [facility] ([place]) Comment on above: Performed By: #### Ranjit GARDNER, ANEU, CBC, GFR, ADIFF, BMP ####[place]ah[place] [id number] [place] [address]#### HOMO ####[place] [address] WBC 9.6 10 3/mcL Normal 4.6-10.8 [facility] ([place]) Comment on above: Performed By: #### Ranjit GARDNER, ANEU, CBC, GFR, ADIFF, BMP ####[place] [address]#### HOMO ####[place] [address] FEon 08-01-2023 Iron [Mass/Vol] 54 ug/dL Normal 50-170 [facility] ([place]) Comment on above: Performed By: #### F E, FERR ####[place] [id number] [place] [id number] Robbin 08-01-2023 Ferritin [Mass/Vol] 74.0 ng/mL Normal 8.0-252.0 [facility] ([place]) Comment on above: Performed By: #### F E, FERR ####[place] [id number] [place] [id number] HOMOon 08-01-2023 Homocysteine 16.4 umol/l High 3.7-13.9 [facility] ([place]) Comment on above: Result Comment: No te - New Reference Range in effect 20 Performed By: #### R BCP #### [place] [address] LABORATORYOrdered By: SYSTEM SYSTEM on 08-01-2023 Basophil, [...] MA MAMMOGRAM SCREENING BILATERAL W/ANTHONY ORIGINAL FROM: [address] [address] PROCEDURE FOR: HERB VALDES [address] [place] [id number] Home: PID#: [id number] Exam#: [id number] : 1955 Age: 68 TO: LUIS ELLIOTT APRN [facility] [place], [place] [address] Fax: NO FAX EXAMINATION: SCREENING DIGITAL BILATERAL [...] 06/25/2023 7:12:43 PM Ordering Provider: LUIS ELLIOTT [employer] Checker: RIA JOHNSON RT (R)(M) letter sent: Normal BI-RADS 1 and 2 Mammogram BI-RADS: 2 Benign Normal [facility] BD BONE DENSITY DEXA AXIAL S [facility] 2023 BD BONE DENSITY DEXA AXIAL [...] 2023 3:45:59 PM Ordering Provider: LUIS ELL[facility] ([place]) LABORATORYOrdered By: Shanna Albarado on 05-29-2023 Albumin [...] Probable Contamination. Suggest recollection if clinically indicated. [facility] Vital Signs Date Time Vital Sign Value Performing Clinician Facility 08-05-2024 11:50-0400 Body temperature 97.7 [degF] DR MAGED PEDRO MD [facility] 08-05-2024 11:50-0400 Diastolic Blood Pressure Non-Invasive 89 mm[Hg] DR MAGED PEDRO MD [facility] 08-05-2024 11:50-0400 Heart rate 78 /min DR MAGED PEDRO MD [facility] 08-05-2024 11:50-0400 Reason For Taking VItal Signs DR MAGED PEDRO MD [facility] 08-05-2024 11:50-0400 Respiratory rate 18 /min DR MAGED PEDRO MD [facility] 08-05-2024 11:50-0400 Systolic Blood Pressure Non-Invasive 159 mm[Hg] DR MAGED PEDRO MD [facility] 08-05-2024 07:10-0400 Body temperature 97.7 [degF] DR MAGED PEDRO MD [facility] 08-05-2024 07:10-0400 Diastolic Blood Pressure Non-Invasive 76 mm[Hg] DR MAGED PEDRO MD [facility] 08-05-2024 07:10-0400 Heart rate 79 /min DR MAGED PEDRO MD [facility] 08-05-2024 07:10-0400 Respiratory rate 16 /min DR MAGED PEDRO MD [facility] 08-05-2024 07:10-0400 Systolic Blood Pressure Non-Invasive 126 mm[Hg] DR MAGED PEDRO MD [facility] 08-05-2024 04:21-0400 Body temperature 97.88 [degF] DR MAGED PEDRO MD [facility] 08-05-2024 04:21-0400 Diastolic Blood Pressure Non-Invasive 72 mm[Hg] DR MAGED PEDRO MD [facility] 08-05-2024 04:21-0400 Heart rate 58 /min DR MAGED PEDRO MD [facility] 08-05-2024 04:21-0400 Respiratory rate 16 /min DR MAGED PEDRO MD [facility] 08-05-2024 04:21-0400 Systolic Blood Pressure Non-Invasive 107 mm[Hg] DR MAGED PEDRO MD [facility] 08-04-2024 22:53-0400 Heart rate 78 /min DR MAGED PEDRO MD [facility] 08-04-2024 21:20-0400 Heart rate 78 /min DR MAGED PEDRO MD [facility] 08-04-2024 14:10-0400 Heart rate 70 /min DR MAGED PEDRO MD [facility] 08-04-2024 13:56-0400 Body height [address] MAGED PEDRO MD [facility] 08-04-2024 13:56-0400 Body weight [address] MGAED PEDRO MD [facility] 08-04-2024 13:56-0400 Body weight 23.42 kg/m2 DR MAGED PEDRO MD [facility] 08-04-2024 12:40-0400 Body temperature 96.8 [degF] DR MAGED PEDRO MD [facility] 08-04-2024 12:35-0400 Respiratory Rate - Anes 0 br/min DR MAGED PEDRO MD [facility] 08-04-2024 12:30-0400 Respiratory Rate - Anes 12 br/min DR MAGED PEDRO MD [facility] 08-04-2024 12:25-0400 Respiratory Rate - Anes 12 br/min DR MAGED PEDRO MD [facility] 08-04-2024 09:11-0400 Body height [address] MAGED PEDRO MD [facility] 08-04-2024 09:11-0400 Body temperature 97.16 [degF] DR MAGED PEDRO MD [facility] 08-04-2024 09:11-0400 Body weight [address] MAGED PEDRO MD [facility] 07-14-2024 12:52-0400 Blood Pressure Cuff Size DR MAGED PEDRO MD [facility] 07-14-2024 12:52-[address] MAGED PEDRO MD [facility] 07-14-2024 12:52-[address] MAGED Jimenez [facility] 07-14-2024 12:52-0400 Body height [address] MAGED PEDRO MD [facility] 07-14-2024 12:52-0400 Body weight 57.[address] MAGED PEDRO MD [facility] 07-14-2024 12:52-0400 Body weight 24.06 kg/m2 DR MAGED PEDRO MD [facility] 07-14-2024 12:52-0400 Diastolic Blood Pressure Non-Invasive 88 mm[Hg] DR MAGED PEDRO MD [facility] 07-14-2024 12:52-0400 Heart rate 67 /min DR MAGED PEDRO MD [facility] 07-14-2024 12:52-0400 Systolic Blood Pressure Non-Invasive 167 mm[Hg] DR MAGED PEDRO MD [facility] 06-17-2024 13:58-0400 Body height 155 cm Jaswinder Masci DO Work Phone: [facility] 06-17-2024 13:58-0400 Body mass index (BMI) [Ratio] 23.88 kg/m2 Jaswinder Masci DO Work Phone: [facility] 06-17-2024 13:58-0400 Body temperature 96.69 [degF] Jaswinder Masci DO Work Phone: [facility] 06-17-2024 13:58-0400 Body weight 57.38 kg Jaswinder Masci DO Work Phone: [facility] 06-17-2024 13:58-0400 Diastolic blood pressure 73 mm[Hg] Jaswinder Masci DO Work Phone: [facility] 06-17-2024 13:58-0400 Heart rate 71 /min Jaswinder Masci DO Work Phone: [facility] 06-17-2024 13:58-0400 SaO2% (BldA) [Mass fraction] 99 % Jaswinder Masci DO Work Phone: [facility] 06-17-2024 13:58-0400 Systolic blood pressure 127 mm[Hg] Jaswinder Masci DO Work Phone: [facility] 04-30-2024 14:34-0400 Blood Pressure Cuff Size CRISTIAN SOTO MD [facility] 04-30-2024 14:34-0400 Blood Pressure Location CRISTIAN SOTO MD [facility] 04-30-2024 14:34-0400 Blood Pressure Method CRISTIAN SOTO MD [facility] 04-30-2024 14:34-0400 Body temperature 98.06 [degF] CRISTIAN SOTO MD [facility] 04-30-2024 14:34-0400 Diastolic Blood Pressure Non-Invasive 70 mm[Hg] CRISTIAN SOTO MD [facility] 04-30-2024 14:34-0400 Heart rate 89 /min CRISTIAN SOTO MD [facility] 04-30-2024 14:34-0400 Reason For Taking VItal Signs CRISTIAN SOTO MD [facility] 04-30-2024 14:34-0400 Systolic Blood Pressure Non-Invasive 180 mm[Hg] CRISTIAN SOTO MD [facility] 04-30-2024 09:49-0400 Body temperature 97.88 [degF] CRISTIAN SOTO MD [facility] 04-30-2024 09:49-0400 Diastolic Blood Pressure Non-Invasive 82 mm[Hg] CRISITAN SOTO MD [facility] 04-30-2024 09:49-0400 Heart rate 81 /min CRISTIAN SOTO MD [facility] 04-30-2024 09:49-0400 Reason For Taking VItal Signs CRISTIAN SOTO MD [facility] 04-30-2024 09:49-0400 Systolic Blood Pressure Non-Invasive 162 mm[Hg] CRISTIAN SOTO MD [facility] 04-30-2024 09:30-0400 Blood Pressure Cuff Size CRISTIAN SOTO MD [facility] 04-30-2024 09:30-0400 Blood Pressure Location CRISTIAN SOTO MD [address] [place] [address] 04-30-2024 09:30-0400 Blood Pressure Method CRISTIAN SOTO MD [address] [place] [address] 04-30-2024 09:30-0400 Diastolic Blood Pressure Non-Invasive 82 mm[Hg] CRISTIAN SOTO MD [address] [place] [address] 04-30-2024 09:30-0400 Systolic Blood Pressure Non-Invasive 162 mm[Hg] CRISTIAN SOTO MD [address] [place] [address] 04-30-2024 07:41-0400 Blood Pressure Cuff Size CRISTIAN SOTO MD [address] [place] [address] 04-30-2024 07:41-0400 Blood Pressure Location CRISTIAN SOTO MD [address] [place] [address] 04-30-2024 07:41-0400 Blood Pressure Method CRISTIAN SOTO MD [facility] 04-30-2024 06:40-0400 Body temperature 97.88 [degF] CRISTIAN SOTO MD [address] [place] [address] 04-30-2024 06:40-0400 Heart rate 81 /min CRISTIAN SOTO MD [facility] 04-30-2024 06:40-0400 Reason For Taking VItal Signs CRISTIAN SOTO MD [address] [place] [address] 04-29-2024 21:29-0400 Heart rate 72 /min CRISTIAN SOTO MD [address] [place] [address] 04-29-2024 21:29-0400 Respiratory rate 18 /min CRISTIAN SOTO MD [facility] 04-29-2024 14:51-0400 Body temperature 97.16 [degF] CRISTIAN SOTO MD [facility] 04-29-2024 14:51-0400 Respiratory rate 20 /min CRISTIAN SOTO MD [facility] 04-29-2024 07:06-0400 Respiratory rate 18 /min CRISTIAN SOTO MD [address] [place] [address] 04-26-2024 17:22-0400 Heart rate 73 /min CRISTIAN SOTO MD [address] [place] [address] 04-26-2024 11:58-0400 Heart rate 72 /min CRISTIAN SOTO MD [address] [place] [address] 04-26-2024 09:41-0400 Heart rate 70 /min CRISTIAN SOTO MD [address] [place] [address] 04-25-2024 15:23-0400 Body temperature 96.26 [degF] CRISTIAN SOTO MD [address] [place] [address] 04-25-2024 15:23-0400 Signs/Symptoms Transfusion Reaction CRISTIAN SOTO MD [address] [place] [address] 04-25-2024 14:35-0400 Body temperature 95 [degF] CRISTIAN SOTO MD [facility] 04-25-2024 14:35-0400 Diastolic blood pressure 58 mm[Hg] CRISTIAN SOTO MD [address] [place] [address] 04-25-2024 14:35-0400 Systolic blood pressure 116 mm[Hg] CRISTIAN SOTO MD [address] [place] [address] 04-25-2024 14:23-0400 Signs/Symptoms Transfusion Reaction No CRISTIAN SOTO MD [address] [place] [address] 04-25-2024 14:13-0400 Signs/Symptoms Transfusion Reaction CRISTIAN SOTO MD [facility] 04-25-2024 12:13-0400 Body temperature 95.18 [degF] CRISTIAN SOTO MD [facility] 04-24-2024 10:42-0400 Body temperature 97.7 [degF] CRISTIAN SOTO MD [facility] 04-24-2024 04:14-0400 Body height 155 cm CRISTIAN SOTO MD [facility] 04-24-2024 04:14-0400 Body weight 65.6 kg CRISTIAN SOTO MD [facility] 04-24-2024 04:14-0400 Body weight 27.3 kg/m2 CRISTIAN SOTO MD [facility] 04-24-2024 03:00-0400 Diastolic Blood Pressure Non-Invasive 84 mm[Hg] DR KINGSTON VELASCO MD [facility] 04-24-2024 03:00-0400 Respiratory rate 24 /min DR KINGSTON VELASCO MD [facility] 04-24-2024 03:00-0400 Systolic Blood Pressure Non-Invasive 171 mm[Hg] DR KINGSTON VELASCO MD [facility] 04-24-2024 02:55-0400 Respiratory rate 26 /min DR KINGSTON VELASCO MD [facility] 04-24-2024 02:28-0400 Blood Pressure Cuff Size DR KINGSTON VELASCO MD [facility] 04-24-2024 02:28-[address] KINGSTON VELASCO MD [facility] 04-24-2024 02:28-[address] KINGSTON VELASCO MD [facility] 04-24-2024 02:28-0400 Diastolic Blood Pressure Non-Invasive 95 mm[Hg] DR KINGSTON VELASCO MD [facility] 04-24-2024 02:28-0400 Heart rate 89 /min DR KINGSTON VELASCO MD [facility] 04-24-2024 02:28-0400 Respiratory rate 20 /min DR KINGSTON VELASCO MD [facility] 04-24-2024 02:28-0400 Systolic Blood Pressure Non-Invasive 178 mm[Hg] DR KINGSTON VELASCO MD [facility] 04-24-2024 01:11-0400 Blood Pressure Cuff Size DR KINGSTON VELASCO MD [facility] 04-24-2024 01:11-[address] KINGSTON VELASCO MD [facility] 04-24-2024 01:11-[address] KINGSTON VELASCO MD [facility] 04-24-2024 01:11-0400 Diastolic Blood Pressure Non-Invasive 77 mm[Hg] DR KINGSTON VELASCO MD [facility] 04-24-2024 01:11-0400 Heart rate 90 /min DR KINGSTON VELASCO MD [facility] 04-24-2024 01:11-0400 Systolic Blood Pressure Non-Invasive 157 mm[Hg] DR KINGSTON VELASCO MD [facility] 04-23-2024 20:03-0400 Body height [address] KINGSTON VELASCO MD [facility] 04-23-2024 20:03-0400 Body temperature 98.24 [degF] DR KINGSTON VELASCO MD [facility] 04-23-2024 20:03-0400 Body weight [address] KINGSTON VELASCO MD [facility] 04-21-2024 11:19-0400 Body temperature 98.24 [degF] MEGAN MIRAMONTES RU[employer]ER ROLLER GRINDER-RECEIVER/LABORER [facility] 04-21-2024 11:19-0400 Diastolic Blood Pressure Non-Invasive 88 mm[Hg] MEGNA MIRAMONTES RU[employer]ER ROLLER GRINDER-RECEIVER/LABORER [facility] 04-21-2024 11:19-0400 Heart rate 75 /min MEGAN MIRAMONTES RU[employer]ER ROLLER GRINDER-RECEIVER/LABORER [facility] 04-21-2024 11:19-0400 Respiratory rate 20 /min MEGAN MIRAMONTES RU[employer]ER ROLLER GRINDER-RECEIVER/LABORER [facility] 04-21-2024 11:19-0400 Systolic Blood Pressure Non-Invasive 130 mm[Hg] MEGAN MIRAMONTES RU[employer]ER RO[employer]ER GRINDER-RECEIVER/LABORER [facility] 04-21-2024 07:44-0400 Blood Pressure Cuff Size MEGAN MIRAMONTES RU[employer]ER ROLLER GRINDER-RECEIVER/LABORER [facility] 04-21-2024 07:44-0400 Blood Pressure Location MEGAN MIRAMONTES RU[employer]ER ROLLER GRINDER-RECEIVER/LABORER [facility] 04-21-2024 07:44-0400 Blood Pressure Method MEGAN MIRAMONTES RU[employer]ER RO[employer]ER GRINDER-RECEIVER/LABORER [facility] 04-21-2024 07:44-0400 Diastolic Blood Pressure Non-Invasive 78 mm[Hg] MEGAN MIRAMONTES RU[employer]ER RO[employer]ER GRINDER-RECEIVER/LABORER [facility] 04-21-2024 07:44-0400 Systolic Blood Pressure Non-Invasive 124 mm[Hg] MEGAN MIRAMONTES RU[employer]ER ROLLER GRINDER-RECEIVER/LABORER [facility] 04-21-2024 07:30-0400 Body temperature 98.24 [degF] MEGAN MIRAMONTES RU[employer]ER ROLLER GRINDER-RECEIVER/LABORER [facility] 04-21-2024 07:30-0400 Diastolic Blood Pressure Non-Invasive 65 mm[Hg] MEGAN MIRAMONTES RU[employer]ER RO[employer]ER GRINDER-RECEIVER/LABORER [facility] 04-21-2024 07:30-0400 Heart rate 78 /min MEGAN MIRAMONTES RU[employer]ER RO[employer]ER GRINDER-RECEIVER/LABORER [facility] 04-21-2024 07:30-0400 Respiratory rate 20 /min MEGAN MIRAMONTES RU[employer]ER RO[employer]ER GRINDER-RECEIVER/LABORER [facility] 04-21-2024 07:30-0400 Systolic Blood Pressure Non-Invasive 99 mm[Hg] MEGAN MIRAMONTES RU[employer]ER RO[employer]ER GRINDER-RECEIVER/LABORER [facility] 04-21-2024 03:30-0400 Body temperature 97.7 [degF] MEGAN MIRAMONTES RU[employer]ER RO[employer]ER GRINDER-RECEIVER/LABORER [facility] 04-21-2024 03:30-0400 Heart rate 76 /min MEGAN MIRAMONTES RU[employer]ER RO[employer]ER GRINDER-RECEIVER/LABORER [facility] 04-21-2024 03:30-0400 Reason For Taking VItal Signs MEGAN MIRAMONTES RU[employer]ER RO[employer]ER GRINDER-RECEIVER/LABORER [facility] 04-21-2024 03:30-0400 Respiratory rate 20 /min MEGAN MIRAMONTES RU[employer]ER ROLLER GRINDER-RECEIVER/LABORER [facility] 04-20-2024 23:13-0400 Heart rate 69 /min MEGAN MIRAMONTES RU[employer]ER ROLLER GRINDER-RECEIVER/LABORER [facility] 04-20-2024 23:13-0400 Reason For Taking VItal Signs MEGAN MIRAMONTES RU[employer]ER ROLLER GRINDER-RECEIVER/LABORER [facility] 04-20-2024 19:32-0400 Blood Pressure Cuff Size MEGAN MIRAMONTES RU[employer]ER RO[employer]ER GRINDER-RECEIVER/LABORER [facility] 04-20-2024 19:32-0400 Blood Pressure Location MEGAN MIRAMONTES RU[employer]ER RO[employer]ER GRINDER-RECEIVER/LABORER [facility] 04-20-2024 19:32-0400 Blood Pressure Method MEGAN MIRAMONTES RU[employer]ER ROLLER GRINDER-RECEIVER/LABORER [facility] 04-20-2024 19:24-0400 Reason For Taking VItal Signs MEGAN MIRAMONTES RU[employer]ER ROLLER GRINDER-RECEIVER/LABORER [facility] 04-20-2024 03:34-0400 Heart rate 85 /min MEGAN MIRAMONTES RU[employer]ER RO[employer]ER GRINDER-RECEIVER/LABORER [facility] 04-20-2024 00:46-0400 Body height 155 cm MEGAN MIRAMONTES RU[employer]ER RO[employer]ER GRINDER-RECEIVER/LABORER [facility] 04-20-2024 00:46-0400 Body weight 61.9 kg MEGAN MIRAMONTES RU[employer]ER RO[employer]ER GRINDER-RECEIVER/LABORER [facility] 04-20-2024 00:46-0400 Body weight 25.76 kg/m2 MEGAN MIRAMONTES RU[employer]ER RO[employer]ER GRINDER-RECEIVER/LABORER [facility] 04-20-2024 00:34-0400 Heart rate 86 /min MEGAN MIRAMONTES RU[employer]ER RO[employer]ER GRINDER-RECEIVER/LABORER [facility] 04-19-2024 23:40-0400 Heart rate 91 /min MEGAN MIRAMONTES RUBBER ROLLER GRINDER-RECEIVER/LABORER [facility] 04-19-2024 22:20-0400 Heart rate 83 /min MEGAN MIRAMONTES RU[employer]ER ROLLER GRINDER-RECEIVER/LABORER [facility] 06-25-2024 16:43-0400 Body height [address] TAE ALANIS MD [facility] 04-14-2024 16:43-0400 Body temperature 96.8 [degF] DR TAE ALANIS MD [facility] 04-14-2024 16:43-0400 Body weight [address] TAE ALANIS MD [facility] 04-14-2024 16:43-0400 Diastolic Blood Pressure Non-Invasive 66 mm[Hg] DR TAE ALANIS MD [facility] 04-14-2024 16:43-0400 Heart rate 75 /min DR TAE ALANIS MD [facility] 04-14-2024 16:43-0400 Respiratory rate 18 /min DR TAE ALANIS MD [facility] 04-14-2024 16:43-0400 Systolic Blood Pressure Non-Invasive 106 mm[Hg] DR TAE ALANIS MD [facility] 03-03-2024 16:40-0400 Body height 162.6 cm ZULY MASTERSROSENDA DO [facility] 03-03-2024 16:40-0400 Body temperature 97.16 [degF] ZULY FROMRUTH ANNT DO [facility] 03-03-2024 16:40-0400 Body weight 62 kg ZULY FROMRUTH ANNT DO [facility] 03-03-2024 16:40-0400 Diastolic Blood Pressure Non-Invasive 74 mm[Hg] ZULY FROMMELT DO [facility] 03-03-2024 16:40-0400 Heart rate 111 /min ZULY CASH DO [facility] 03-03-2024 16:40-0400 Respiratory rate 20 /min [facility] 03-03-2024 16:40-0400 Systolic Blood Pressure Non-Invasive 120 mm[Hg] [facility] 05-29-2022 08:38-0400 Diastolic blood pressure 74 mm[Hg] DR APRIL PABON MD [facility] 05-29-2022 08:38-0400 Heart rate 60 /min DR APRIL PABON MD [facility] 05-29-2022 08:38-0400 Mean blood pressure 90 mm[Hg] DR APRIL PABON MD [facility] 05-29-2022 08:38-0400 Respiratory rate 16 /min DR APRIL PABON MD [facility] 05-29-2022 08:38-0400 Systolic blood pressure 122 mm[Hg] DR APRIL PABON MD [facility] Encounters Encounter Date Encounter Type Care Provider Facility Start: 08-06-2024 ambulatory LUIS ELLIOTT RU[employer] RO[employer] GRINDER-RECEIVER/LABORER Fa cility:[facility] Start: 08-04-2024 End: 08-05-[address] MAGED PEDRO MD Facility:[facility] Start: 08-04-2024 End: 08-05-[address] MAGED PEDRO MD [facility] Start: 07-14-2024 End: 07-14-[address] MAGED PEDRO MD [facility] Start: 07-14-2024 End: 07-14-[address] MAGED PEDRO MD Facility:[facility] Start: 06-25-2024 End: 08-04-2024 Telephone encounter Jaswinder Schmidt DO Work Phone: Hematology/Oncology Comment on above: Follow Up Start: 06-17-2024 End: 06-17-2024 ambulatory Jaswinder Schmidt DO Work Phone: Hematology/Oncology Comment on above: Single subsegmental pulmonary embolism without acute cor pulmonale (HCC) (Primary Dx) Start: 06-17-2024 End: 06-17-2024 Patient encounter procedure Jaswinder Schmidt DO Work Phone: Hematology/Oncology Start: 06-02-2024 End: 06-02-2024 ambulatory VELMA REYNOLDS RU[employer]ER RO[employer]ER GRINDER-RECEIVER/LABORER Facility:[facility] Start: 05-16-2024 End: 05-20-2024 ambulatory LUIS ELLIOTT [employer]ER GRINDER-RECEIVER/LABORER Facility:[facility] Start: 05-16-2024 End: 05-20-[address] TATIANA CASEY DO [facility] Start: 05-01-2024 End: 06-02-2024 ambulatory LUIS ELLIOTT [employer] GRINDER-RECEIVER/LABORER Facility:R Start: 04-24-2024 End: 04-30-2024 Evaluation and management of inpatient CRISTIAN SOTO MD [facility] Start: 04-23-2024 End: 04-24-2024 Emergency department patient visit DR KINGSTON VELASCO MD [facility] Start: 04-19-2024 End: 04-21-2024 Evaluation and management of inpatient MEGAN MIRAMONTES [employer] GRINDER-RECEIVER/LABORER [facility] Start: 04-16-2024 End: 04-16-2024 ambulatory LUIS ELLIOTT [employer] GRINDER-RECEIVER/LABORER Facility:B Start: 04-14-2024 End: 04-14-2024 Emergency department patient visit DR TAE ALANIS MD [facility] Start: 03-03-2024 End: 03-03-2024 Emergency department patient visit ZULY CASH DO [facility] Start: 02-21-2024 End: 02-21-2024 ambulatory LUIS BALTES [employer]ER GRINDER-RECEIVER/LABORER Facility:B Start: 02-21-2024 End: 02-21-2024 Patient encounter procedure LUIS BALTES RUBBER ROLLER GRINDER-RECEIVER/LABORER [facility] Start: 02-17-2024 End: 02-17-2024 ambulatory LUIS BALTES RUBBER ROLLER GRINDER-RECEIVER/LABORER Facility:B Start: 02-17-2024 End: 02-17-2024 Patient encounter procedure LUIS BALTES RUBBER ROLLER GRINDER-RECEIVER/LABORER [facility] Start: 08-29-2023 End: 08-29-2023 ambulatory LUIS BALTES RUBBER ROLLER GRINDER-RECEIVER/LABORER Facility:B Start: 08-01-2023 End: 08-01-2023 ambulatory LUIS BALTES RUBBER ROLLER GRINDER-RECEIVER/LABORER Facility:B Start: 08-01-2023 End: 08-01-2023 Patient encounter procedure LUIS BALTES RUBBER ROLLER GRINDER-RECEIVER/LABORER [facility] Start: 2023 End: 2023 ambulatory LUIS BALTES RUBBER ROLLER GRINDER-RECEIVER/LABORER Facility:B Start: 2023 End: 2023 Patient encounter procedure LUIS BALTES RUBBER ROLLER GRINDER-RECEIVER/LABORER [facility] Start: 05-29-2023 End: 06-02-2023 Outreach Lab LUIS BALTES RUBBER ROLLER GRINDER-RECEIVER/LABORER [facility] Start: 09-10-2022 End: 09-10-2022 Patient encounter procedure LUIS BALTES RUBBER ROLLER GRINDER-RECEIVER/LABORER [facility] Start: 08-14-2022 End: 08-14-2022 Patient encounter procedure VELMA REYNOLDS RUBBER ROLLER GRINDER-RECEIVER/LABORER [facility] Start: 05-29-2022 End: 05-29-[address] APRIL PABON MD [facility] Start: 05-24-2022 End: 05-24-2022 Patient encounter procedure LUIS TORRESFAITH RUBBER ROLLER GRINDER-RECEIVER/LABORER [facility] Start: 05-02-2022 End: 05-02-2022 Patient encounter procedure LUIS TORRESFAITH RUBBER ROLLER GRINDER-RECEIVER/LABORER [facility] Start: 05-01-2022 End: 05-01-2022 Patient encounter procedure LUIS EARL RUBBER ROLLER GRINDER-RECEIVER/LABORER [facility] Start: 01-31-2022 End: 02-04-2022 Outreach Lab LUIS ELLIOTT RUBBER ROLLER GRINDER-RECEIVER/LABORER [facility] Start: 01-31-2022 End: 01-31-2022 Patient encounter procedure LUIS TORRESFAITH RUBBER ROLLER GRINDER-RECEIVER/LABORER [facility] Procedures Date Procedure Procedure Detail Performing Clinician Start: 08-04-2024 Total replacement of left hip joint DR MAGED PEDRO MD Start: 03-11-2023 Cardiac catheterization LUIS ELLIOTT RUBBER ROLLER GRINDER-RECEIVER/LABORER Start: 03-11-2023 Placement of stent LUIS ELLIOTT RUBBER ROLLER GRINDER-RECEIVER/LABORER Start: 01-04-2020 Endarterectomy LUIS CUEVAS RUBBER ROLLER GRINDER-RECEIVER/LABORER Start: 02-06-2017 Nerve conduction study LUIS ELLIOTT RUBBER ROLLER GRINDERHydrophi Comment on above: [facility]n Start: 12-12-2016 CT angiography of ne ck vessels LUIS ELLIOTT RUBBER ROLLER GRINDER-Tripleseat Comment on above: [facility] Start: 11-14-2016 Duplex ultrasound (qualifier value) LUIS ELLIOTT RUBBER ROLLER GRINDERHydrophi Comment on above: abn Start: 10-21-2007 Lithotripsy LUIS Patterson RUBBER ROLLER GRINDERHydrophi Start: 09-06-2000 Lipid 1996 panel - S rach or Plasma aJswinder Schmidt DO Work Phone: Abdominal hysterectomy LUIS ELLIOTT RUBBER ROLLER GRINDERHydrophi Carotid artery struc ture (body structure) LUIS ELLIOTT RUBBER ROLLER GRINDERHydrophi Comment on above: left side x2 section LUIS ELLIOTT RUBBER ROLLER GRINDERHydrophi Cholecystectomy LUIS ELLIOTT RUBBER ROLLER GRINDERHydrophi Colonoscopy LUIS ELLIOTT APR NHydrophi Coronary artery bypa ss graft CABG - Coronary artery bypass graft( Confirmed ) 1 LUIS ELLIOTT RUBBER ROLLER GRINDERHydrophi Comment on above: prior to CABG, pt st awads she had multiple stents placed for CAD. Remains on plavix for stent/shasta patency Coronary artery bypa ss graft x 1 LUIS ELLIOTT RUBBER ROLLER GRINDERHydrophi Coronary stent site (finding) LUIS ELLIOTT RUBBER ROLLER GRINDERHydrophi History of carotid endarterectomy History of carotid endarterectomy( Confirmed ) LUIS ELLIOTT RUBBER ROLLER GRINDERHydrophi History of coronary artery bypass grafting Hx of CABG( Confirmed ) LUIS ELLIOTT RUBBER ROLLER GRINDERHydrophi History of percutane ous transluminal coronary angioplasty History of PTCA( Confirmed ) LUIS ELLIOTT RUBBER ROLLER GRINDERHydrophi History of percutane ous transluminal coronary angioplasty CRISTIAN SOTO MD Malcolm ORO Plan of Treatment Date Care Activity Detail Author Start: 03-03-2034 Urine microalbumin profile DTaP,Tdap,Td Vaccine (2 - Td or Tdap) [facility] Start: 2028 RSV Vaccine (1 - 1-d ose 75+ series) RSV Vaccine (1 - 1-dose 75+ series) [facility] Start: 06-17-2025 BP Controlled (<130/80) BP Controlle d (<130/80) [facility] Start: 12-18-2024 End: 12-18-2024 ambulatory 12/18/2024 2:30 PM EST Visit (SP) Office Hematology/Oncology [address] [place] [address] Jaswinder Schmidt DO [address] [facility] [address] 6 MO OV* Hematology/Oncology Comment on above: 6 MO OV* Start: 06-21-2024 Covid-19 Vaccine ( season) Covid-19 Vaccine ( season) [facility] Start: 06-21-2024 Influenza vaccination Influenza Vacc ine (#1) [facility] Start: 06-17-2024 End: 09-16-[address] [facility] Work Phone: Comment on above: Expected: 06/17/2024 , Expires: 09/16/2024 Start: 10-21-2023 Advance Directive Discussion Advance Directive Discussion [facility] Start: 06-21-2023 Covid-19 Vaccine ( season) Covid-19 Vaccine ( season) [facility] Start: 2023 Pneumococcal Vaccine : 65+ (3 of 3 - PPSV23 or PCV20) Pneumococcal Vaccine: 65+ (3 of 3 - PPSV23 or PCV20) [facility] Start: 01-04-2023 Diabetes Screening Diabetes Screenin g [facility] Start: 2018 Screening for osteoporosis Bone Density Screening [facility] Start: 06-09-2016 Shingrix Vaccine (2 of 3) Shingrix Vaccine (2 of 3) [facility] Start: 2013 RSV Vaccine (1 - 1-d ose 60+ series) RSV Vaccine (1 - 1-dose 60+ series) [facility] Start: 09-06-2005 Lipid panel Lipid Screening [facility] Start: 2003 Screening for malign ant neoplasm of lung Lung Cancer Screening [facility] Start: 09-06-2001 Hepatitis B surface antibody level LDL Cholesterol [facility] Start: 1998 Screening for malign ant neoplasm of colon [facility] Start: 1993 Screening for malign ant neoplasm of breast Mammogram Screening [facility] Start: 1971 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 General lili Disease Visit Annual PCP Team Chronic Disease Visit [facility] Start: 1971 Anxiety Screening Anxiety Screening [facility] Start: 1971 Depression Screening Depression Scre ening [facility] Start: 1971 Hepatitis C screening Hepatitis C Sc [place] [facility] Immunizations Immunization Date Immunization Notes Care Provider Fa roshan 07-15-2024 influenza virus vacc ine, unspecified formulation DR MAGED PEDRO MD [facility] 03-03-2024 tetanus toxoid, redu vani diphtheria toxoid, and acellular pertussis vaccine, adsorbed ZULY FROMROSENDA DO [facility] 07-07-2023 influenza virus vacc ine, unspecified formulation LUIS ELLIOTT RUBBER ROLLER GRINDER-RECEIVER/LABORER [facility] 07-10-2022 influenza virus vacc ine, unspecified formulation VELMA REYNOLDS RUBBER ROLLER GRINDER-RECEIVER/LABORER [facility] 07-31-2021 SARS-CoV-2 mRNA (tozinameran) vaccine LUIS ELLIOTT RUBBER ROLLER GRINDER-RECEIVER/LABORER [facility] 11-22-2020 SARS-CoV-2 mRNA (tozinameran) vaccine LUIS ELLIOTT RUBBER ROLLER GRINDER-RECEIVER/LABORER [facility] 11-01-2020 SARS-CoV-2 mRNA (topravinnameran) vaccine LUIS ELLIOTT RUBBER ROLLER GRINDER-RECEIVER/LABORER [facility] 07-08-2020 influenza virus vacc ine, unspecified formulation LUIS ELLIOTT RUBBER ROLLER GRINDER-RECEIVER/LABORER [facility] 06-15-2019 influenza virus vacc ine, unspecified formulation LUIS BALFAITH RUBBER ROLLER GRINDER-RECEIVER/LABORER [facility] 2018 influenza virus vacc ine, unspecified formulation LUIS ELLIOTT RUBBER ROLLER GRINDER-RECEIVER/LABORER [facility] 2018 pneumococcal conjuga te vaccine, 13 valent LUIS ELLIOTT RUBBER ROLLER GRINDER-RECEIVER/LABORER [facility] 06-28-2017 influenza virus vacc ine, unspecified formulation LUIS ELLIOTT RUBBER ROLLER GRINDER-RECEIVER/LABORER [facility] 08-10-2016 influenza virus vacc ine, unspecified formulation LUIS ELLIOTT RUBBER ROLLER GRINDER-RECEIVER/LABORER [facility] 04-14-2016 zoster vaccine, live LUIS BA LTES RUBBER ROLLER GRINDER-RECEIVER/LABORER [facility] 10-21-2014 zoster vaccine, live LUIS BA LTES RUBBER ROLLER GRINDER-RECEIVER/LABORER [facility] 09-19-2014 zoster vaccine, live LUIS BA LTES RUBBER ROLLER GRINDER-RECEIVER/LABORER [facility] 10-21-2012 pneumococcal conjuga te vaccine, 13 valent LUIS ELLIOTT RUBBER ROLLER GRINDER-RECEIVER/LABORER [facility] 10-21-2012 pneumococcal polysaccharide vaccine, 23 valent LUIS ELLIOTT RUBBER ROLLER GRINDER-RECEIVER/LABORER [facility] 09-19-2012 pneumococcal polysaccharide vaccine, 23 valent LUIS ELLIOTT RUBBER ROLLER GRINDER-RECEIVER/LABORER [facility] Payers Date Payer Category Payer Medicare [id number] 2019 Medicare UHC AARP MEDICAR E [facility] MED[facility] PPO [id number] 2019-Present [phone] [address] [address] [place] [address] PPO [id number] 2019 Private Health Insurance [id number] 1953 Unknown [id number] .62 1955 Unknown [id number] .1953 Unknown [id number] 2.840.1.689486.3.579.2 .627 1953 Unknown [id number] 2.840.1.742053.3.579.2 .62 1953 Unknown [id number] 2.840.1.562177.3.579.2 .627 1953 Unknown [id number] 2.840.1.421959.3.579.2 .62 1953 Unknown [id number] 2.16.840.1.434864.3.579.2 .627 1953 Unknown [id number] 2.16.840.1.681865.3.579.2 .627 1953 Unknown [id number] 2.16.840.1.228608.3.579.2 .627 1953 Unknown [id number] 2.16.840.1.549558.3.579.2 .627 1953 Unknown [id number] 2.16.840.1.905807.3.579.2 .1955 Unknown [id number] 2.16.840.1.914337.3.579.2 .7 1953 Unknown [id number] 2.16.840.1.736525.3.579.2 .1953 Unknown [id number] 2.16.840.1.591962.3.579.2 .7 1953 Unknown [id number] 2.16.840.1.878975.3.579.2 .627 Social History Date Type Detail Facility Start: 07-17-2019 End: 12-06-2022 Tobacco smoking status Ex-smoker (finding) [facility] Comment on above: Quit in 2011 Sex Assigned At Female [facility] Start: 10-21-1980 End: 10-21-2010 History of tobacco use Current smoker [facility] Start: 10-21-1980 End: 10-21-2010 History of tobacco use Cigarette Smoker [facility] Start: 12-04-2019 End: 06-17-2024 Cigarettes smoked current (pack per day) - Reported 1 [facility] Work Phone: Start: 12-04-2019 Tobacco use and exposure Smokeless tobacco non-user [facility] Start: 06-17-2024 Alcoholic beverage intake Current non-drinker of alcohol (finding) [facility] Start: 01-05-2020 End: 06-17-2024 Tobacco use panel [facility] Work Phone: How hard is it for y ou to pay for the very basics like food, housing, medical care, and heating Not hard at all [facility] Work Phone: (I/We) worried wheth er (my/our) food would run out before (I/we) got money to buy more. Never true [facility] Start: 1955 Sex assigned at Not on file [facility] Medical Equipment Procedure Code Equipment Code Equipment Origin al Text Equipment Identifier Dates Graft 4-7mm Standard Shaper Set Up Operator Harwood-Robinson 40cm Vascular Line Sterile - [id number] Start: 01-04-2020 Patch Bovine Pericardial Vascular Duravess 8x8 - [id number] Start: 01-04-2020 Comment on above: Description: bovine pericardial patch Functional Status Date Assessment Result Facility 08-05-2024 Functional Status Nurse Smiley medrano q2hrs Performed Other: 7a-12p [facility] 08-05-2024 Functional Status Independent [facility] 08-05-2024 Functional Status Identified as high risk, Fall ID band on, Room located near nursing station, Door open, Non-Slip footwear [facility] 08-05-2024 Functional Status [facility] 08-05-2024 Functional Status [facility] 08-05-2024 Functional Status [facility] 08-04-2024 Functional Status [facility] 08-04-2024 Functional Status [facility] 08-04-2024 Functional Status Single level home [facility] 08-04-2024 Functional Status [facility] 08-04-2024 Functional Status Maintained [facility] 07-14-2024 Functional Status Sensory Deficits None A [facility] 04-30-2024 Functional Status Room check performed [facility] 04-30-2024 Functional Status Lunch Percent 25 [facility] 04-30-2024 Functional Status Shahla Manuel [...] Status Assistive Equi pment elevated on pillows [facility] 04-24-2024 Functional Status Independent [facility] Functional Status Single level home [facility] 04-24-2024 Functional Status Sensory Deficits None A [facility] 04-23-2024 Functional Status Awake, Lights dimmed, Resting [facility] 04-21-2024 Functional Status Nurse Smiley medrano q2hrs Performed Other: 7AM - 1PM [facility] 04-21-2024 Functional Status bilateral knee high removed/off [facility] 04-21-2024 Functional Status Identified as high risk, Bed alert on, Non-Slip footwear, Room check performed [facility] 04-21-2024 Functional Status Shahla [facility] 04-21-2024 Functional Status Shahla [facility] 04-20-[address] [facility] 04-20-2024 Functional Status Sahhla arellano [facility] 04-20-2024 Functional Status 25 Shahla arellano [facility] 04-20-2024 Functional Status Single level home [facility] 04-20-2024 Functional Status Shahla arellano [facility] 04-20-2024 Functional Status Shahla arellano [facility] 04-20-2024 Functional Status Shahla arellano [facility] 04-20-2024 Functional Status Sensory Deficits None [facility] 03-03-2024 Functional Status Independent Shahla arellano [facility] 05-29-2022 Functional Status Independent Shahla arellano Mental Status Date Assessment Result Facility 08-05-2024 [facility] 08-04-2024 Mental Status [facility] 08-04-2024 Mental Status [facility] 04-30-2024 Mental Status Orientation Oriented x 4 [facility] 04-29-2024 Mental Status [facility] 04-29-2024 Mental Status [facility] 04-28-2024 Mental Status Orientation Asse ssment Oriented x 4 [facility] 04-28-2024 Mental Status [facility] 04-27-2024 Mental Status [facility] 04-23-2024 Mental Status Orientation Oriented x 4 [facility] 04-21-2024 Mental Status Oriented x 4 [facility] 04-20-2024 Mental Status [facility]20[facility] Status [facility] 03-03-2024 Mental Status Orientation Orie nted x 4, Not oriented to person, Not oriented to place [facility] Clinical Notes 05-29-2022 to 08-05-2024 Telephone Encounter - Jaswinder Schmidt DO - 08/03/2024 5:13 PM EDTTelephone Encounter - Jaswinder Schmidt, - 08/03/2024 5:13 PM EDTTelephone Encounter - Kailee Chavezela JESSICA Patterson - 08/03/2024 4:42 PM EDT Note Date & Type Note Facility 08-05-2024 Hospital Discharge instructions Patient Education 08/05/2024 10:18:25 Total Hip Replacement, Anterior, Care After, Qvoy-pq-Zmso Total Hip Replacement, Anterior, Care After This sheet gives you information about how to care for yourself after your procedure. Your doctor may also give you more specific instructions. If you have problems or questions, contact your doctor. What can I expect after the procedure? After the procedure, it is common to have: Pain. Stiffness. Discomfort. Follow these instructions at home: Medicines Take iamz-rhc-bnlgrzc and prescription medicines only as told by [...] use soap and water, use alcohol-based hand emergency medical technician/driver. ?Change your bandage as told by your [...] include fried or sweet foods. ?Take an euud-uot-siuafig or prescription medicine for constipation. Do not [...] 01/21/2019 Document Revised: 02/15/2020 Document Reviewed: 01/21/2019 [employer] Patient Education 2020 [employer] 08/05/2024 09:34:27 5 - [facility] Post-op Instruction 05/2017 (18318) [facility] Post-operative Instructions PLEASE FOLLOW [facility] POST-OP INSTRUCTIONS GIVEN WATCH FOR SIGNS OF INFECTION: call the office ([phone]) if experencing any of the following: (Usually [...] on your follow up instructions. Form: 338A (55382) R: 02/24 Follow Up Care 07/06/2024 09:57:10 With:LUIS ELLIOTT Address: [address] [place] [phone] When:08/14/2024 12:30:00 Comments:This is your post-op appointment with PCP to go over labwork results. Please have your labs drawn a few days prior to this appointment. With:TUSHAR SHIELDS PA-C, Orthopedic Address: [address] [place] [address] [address] [facility], [place] [address] [phone] When:08/18/2024 14:00:00 Comments:This is your post-op appointment. Follow-up as scheduled. [facility] 08-05-2024 Note Discharge Instructions Thank you for allowing [facility] to assist you with your healthcare needs. [...] next Instructions From Your Doctor Stable for il Scheduled Follow-Up Appointments 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 When With Where Contact Information StatusPC OV Hospital Follow-Up 08/14/2024 12:30 PM EDT LUIS ELLIOTT [address] [phone] Confirmed PC OV 08/26/2024 02:00 PM EST LUIS ELLIOTT [address] [phone] Confirmed Follow Up Appointments Follow Up with LUIS ELLIOTT When:08/14/2024 12:30 PM EDT Where:[address] [place] [phone] Additional Information: This is your post-op appointment with PCP to go over labwork results. Please have your labs drawn a few days prior to this appointment. Follow Up with TUSHAR SHIELDS PA-C, Orthopedic When:08/18/2024 02:00 PM EDT Where:[address] [facility] [address] [facility], [place] [phone] Additional Information: This is your post-op appointment. [...] 12 hours Duration: 14 Days Pickup at [facility] New oxyCODONE (oxyCODONE 5 mg oral tablet ( IMMEDIATE release )) See instructions S/P total left hip arthroplasty 1-2 tab(s) Oral q4h, As needed for as needed for pain Pickup at [facility] Changed acetaminophen (Tylenol) 1,000 Milligram by [...] Pharmacy Information [id number]: [address] [place], [place] [phone] What How Much When Comments Stop Taking [...] were not tolerated. Extended-release oxycodone is for iyciye-rlr-npgcb treatment of severe and chronic pain that [...] by your doctor. Stop taking all other qucgfp-bjf-wagen opioid pain medicines when you start taking [...] may report side effects to FDA at 4-215-JUX-0416. What other drugs will affect oxycodone? You [...] may affect oxycodone. This includes prescription and piwy-kgv-mrvbsjt medicines, vitamins, and herbal products. Not all [...] to ensure that the information provided by [employer]. ('[employer]') is accurate, up-to-date, and complete, but no guarantee is made to that effect. Drug information contained herein may be time sensitive. [employer] information has been compiled for use by healthcare practitioners and consumers in the [place] and therefore [employer] does not warrant that uses outside of the [place] are appropriate, unless specifically indicated otherwise. [employer]'s drug information does not endorse drugs, diagnose patients or recommend therapy. [employer] drug information is an informational resource designed [...] effective or appropriate for any given patient. [facility] does not assume any responsibility for any aspect of healthcare administered with the aid of information [facility] provides. The information contained herein is not intended to cover all possible uses, directions, precautions, warnings, drug interactions, allergic reactions, or adverse effects. If you have questions about the drugs you are taking, check with your doctor, nurse or pharmacist. Copyright 8528-7652 [facility] HospitalCloudy.frPulse 8. Version: 17.. Revision Date: 11/12/2023. doxycycline (oral/injection) (DOX steph carroll) Acticlate, Adoxa, Alodox, Avidoxy, Doryx, Doryx MPC, Lymepak, Mondoxyne NL, Monodox, Morgidox, Morgidox 4z948dl, Morgidox 4u686mx, Okebo, Oracea, Targadox, Vibramycin, Vibramycin Monohydrate What [...] or life-threatening conditions such as anthrax or [place] spotted fever. The benefit of treating a [...] may report side effects to FDA at 9-687-TAD-7135. What other drugs will affect doxycycline? Sometimes it is not safe to use certain medications at the same time. Some drugs can affect your blood levels of other drugs you take, which may increase side effects or make the medications less effective. Other drugs may affect doxycycline, including prescription and hafe-gdy-zjdlmbs medicines, vitamins, and herbal products. Tell your [...] to ensure that the information provided by [employer]. ('[employer]') is accurate, up-to-date, and complete, but no guarantee is made to that effect. Drug information contained herein may be time sensitive. [employer] information has been compiled for use by healthcare practitioners and consumers in the [place] and therefore [employer] does not warrant that uses outside of the [place] are appropriate, unless specifically indicated otherwise. [employer]'s drug information does not endorse drugs, diagnose patients or recommend therapy. [employer]'s drug information is an informational resource designed [...] effective or appropriate for any given patient. [facility] does not assume any responsibility for any aspect of healthcare administered with the aid of information [facility] provides. The information contained herein is not intended to cover all possible uses, directions, precautions, warnings, drug interactions, allergic reactions, or adverse effects. If you have questions about the drugs you are taking, check with your doctor, nurse or pharmacist. Copyright 0973-7168 [employer]. Version: .. Revision Date: 06/26/2023. Education Materials [...] Follow these instructions at home: Medicines Take wvjt-oqz-tifpdcy and prescription medicines only as told by [...] use soap and water, use alcohol-based hand emergency medical technician/driver. ? Change your bandage as told by [...] fried or sweet foods. ? Take an luyk-usn-nvskvpx or prescription medicine for constipation. Do not [...] Document Reviewed: 01/21/2019 Elsevier Patient Education 2020 [employer] [facility] Post-operative Instructions PLEASE FOLLOW [facility] POST-OP INSTRUCTIONS GIVEN WATCH FOR SIGNS OF INFECTION: call the office ([phone]) if experencing any of the following: (Usually [...] on your follow up instructions. Form: 338A (34027) R: 02/24 Additional Information VACCINATE! IT SAVES LIVES! Members of the community who have not yet received the COVID-19 vaccine and would like to receive it can visit one of [facility] vaccine clinics. There are many vaccine clinic locations within the [facility]. For locations and available times, please visit [email or web address].[place] .[email or web address] It is important to note that some COVID mobile vaccine clinics are held outdoors and may be canceled in rainy or stormy conditions. To learn more about pediatric vaccinations (ages 5-11), we invite you to visit the [employer] webpage. [email or web address]-[email or web address]-Frequently -[email or web address]-Questions.html To learn more about the COVID-19 vaccine, we invite you to visit the CDC website for a list of frequently asked questions.https://www.cdc.gov/coron avirus/2019-ncov/vaccines/faq.html [facility] Patient Portal Access Instructions: Stay connected with your healthcare team and access your personal medical information anytime with the [facility] Patient Portal. Please follow the directions below to create your [employer] account: 1.Access the email account you provided upon registration to the hospital/physician office.2.Look for an invitation email from [facility].3.Open the email and access the invitation link: Accept Invitation to [employer].4.Fill in the required del real to create your account. To access your account, visit [email or web address]. Click the blue button labeled Access Patient [...] you will allow to register on the [facility] Patient Portal for access to your information. You can also access the [facility] Patient Portal on the [facility] Anywhere juli. Simply click on Patient Portal and then log into your account. If you would like to receive a full copy of your medical records, please contact the [facility] Medical Records Department by calling [phone], Saturday through Saturday between 8 a.m. and [...] Call your local pharmacy or go to [email or web address] to find one close to you.3.Make use of household items: Use cat litter or old coffee grounds to dispose medications if other options are not available. Mix your drugs with these household products, seal them in an airtight container and throw it into the garbage. Call [facility]: [phone] to be sure your drugs can be [...] Materials Total Hip Replacement, Anterior, Care After, Ycgf-fm-Saok 5 - [facility] Post-op Instruction 05/2017 (41096) Medication Leaflets oxycodone, doxycycline (oral/injection) My discharge plan and instructions have been reviewed and explained to me and I,HERB VALDES understand my current condition and have read and understand these discharge instructions. I have received a written copy of the plan/instructions. If I have questions, I am aware that I should contact my doctor. Patient/Bridge Club Manager Signature: ____ Date/Time: Relationship to Patient: __ Witness Name/Signature: Date/Time: [facility] 08-05-2024 Note Date of Service August [...] change her pharmacy as her pharmacy in [place] did not have any narcotics for discharge. [...] send her medications to elle Paige in [facility]. Due to shortage of pain medication at [facility] we did need to make a [...] primary care provider. I have reviewed the [place] Automated Rx Reporting System (OARRS) report for [...] JAMES MORALES PA-C on 08/05/2024 09:32 AM [facility] 08-05-2024 Pastoral care Progress note Pastoral Care Note Entered On: 08/05/2024 9:00 EDT Performed On: 08/05/2024 8:59 EDT by James Moralez Pastoral Care Type of Pastoral Visit : Initial visit Spiritual Care Visit Initiated by : Lactation Specialist Spiritual Care Reason for Visit : General [...] by James Moralez on 08/05/2024 08:59 AM [facility] 08-04-2024 Note ORIGINAL HISTORY: Arthroplasty COMPARISON: [...] 08/04/2024 1:20:15 PM Ordering Provider: MAGED PEDRO [facility] 08-04-2024 Note ORIGINAL Images acquired, not reported on this accession number. [facility] 08-04-2024 Anesthesiology Consult note Patient: HERB [...] Problem list: Medical Anemia / SNOMED CT 621997963 / Confirmed Bronchitis / SNOMED CT 70665769 / Confirmed CABG - Coronary artery bypass graft / SNOMED CT 463851261 / Confirmed CAD - Coronary artery disease / SNOMED CT 2792124999 / Confirmed Carotid stenosis, bilateral / SNOMED CT 338659435 / Confirmed CKD (chronic kidney disease) / SNOMED CT 1642121670 / Confirmed Constipation / SNOMED CT 96488558 / Confirmed Cystocele with prolapse / SNOMED CT 653656085 / Confirmed Depression / SNOMED CT 670060228 / Confirmed High risk medication use / SNOMED CT 536519151 / Confirmed SOB (shortness of breath) / SNOMED CT 266263745 / Confirmed HYPERTENSION, ESSENTIAL / SNOMED CT 54647952 / Confirmed Glasses / SNOMED CT 9627477888 / Confirmed Headache / SNOMED CT 71005174 / Confirmed Heart disease / SNOMED CT 21309552 / Confirmed History of carotid endarterectomy / SNOMED CT 3295925649 / Confirmed Hx of CABG / SNOMED CT 2542762427 / Confirmed History of PTCA / SNOMED CT 8176312286 / Confirmed Hypertension / SNOMED CT [id number] 4 / Confirmed Insomnia / SNOMED CT 311445565 / Confirmed Irritable bowel syndrome / SNOMED CT 10367380 / Confirmed Nephrolithiasis / SNOMED CT 099410443 / Confirmed Lipoma / SNOMED CT 245473919 / Confirmed B12 deficiency anemia / SNOMED CT 546953960 / Confirmed Osteoarthritis / SNOMED CT 5241266099 / Confirmed Osteonecrosis of hip / SNOMED CT 1602403175 / Confirmed Osteopenia of femoral neck / SNOMED CT 557133726 / Confirmed Preop cardiovascular exam / SNOMED CT 700669847 / Confirmed Medicare annual wellness visit, subsequent / SNOMED CT 758978405 / Confirmed S/P PTCA (PERCUTANEOUS TRANSLUMINAL CORONARY ANGIOPLASTY) / SNOMED CT 2242963597 / Confirmed Pulmonary emboli / SNOMED CT 28790875 / Confirmed Seasonal allergy / SNOMED CT 7496274057 / Confirmed Spasm of back muscles / SNOMED CT 672745675 / Confirmed Thoracic outlet syndrome / SNOMED CT 856757075 / Confirmed, Active Problems (35) Anemia B12 [...] syndrome Histories Past Medical History: Active Nephrolithiasis (695689598): Onset in 2007 at 52 years. Hypertension ([id number]) Comments: 03/24/2014 EDT 0:25 EDT MARCI MALDONADO MD active prior to hospital admissiion without ischemic sx or cardiac limitations. Pt denies recent changes in cardiac standpoint or change in medical managament. EKG NSR, old inf, ant Q waves and lateral t wave flattening. No prior EKG present for comparison. took metoprolol yesterday am CABG - Coronary artery bypass graft ([id number]) Comments: 03/24/2014 EDT 0:27 MARCI PURVIS MD prior to CABG, pt states she had multiple stents placed for CAD. Remains on plavix for stent/shasta patency Seasonal allergy (4411837008) Constipation (99551306) Irritable bowel syndrome (50615492) Headache (91607520) Glasses (5626197129) Depression (489857481) Resolved Bowel obstruction ([id number] ): Resolved. Comments: 03/24/2014 EDT 0:12 MARCI PURVIS MD Admitted earlier today with Abdominal pain, CT scan with suggestion for Bowel obtruction. Insomnia (846253212): Resolved. Chest pain in adult (23838089): Resolved. Family History: Heart disease Mother Sister Brother Cancer Father Sister Brother Procedure history: Cardiac catheterization (72871491) on 03/11/2023 at 67 Years. Placement of stent ([id number]) on 03/11/2023 at 67 Years. Endarterectomy (6842979374) on 01/04/2020 at 64 Years. Nerve conduction study (42248404) on 02/06/2017 at 61 Years. Comments: 12/22/2020 7:59 Sharri Whitfield LPN [facility];abn CT angiography of neck (0291083772) on 12/12/2016 at 61 Years. Comments: 12/22/2020 8:01 Sharri Whitfield LPN [facility] Duplex ultrasound, carotid (697384270) on 11/14/2016 at 61 Years. Comments: 12/22/2020 8:06 Sharri Whitfield LPN abn Lithotripsy (221079654) in 2008 at 53 Years. section (12456324). Cholecystectomy (19909886). CABG x 1 - Coronary artery bypass graft x 1 (393384844). Colonoscopy (908150437). Abdominal hysterectomy (594775901). Coronary stent site (299696555). Carotid artery (924812210). Comments: 07/09/2018 21:07 EDT - MARCK Mcfadden left side x2 US - Ultrasound carotid (845463314). 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 Vp Digital Marketing: grand dtr and her dad live w/her [...] Signs (last 24 hrs) Last Charted Temp Eunnwqav79.2 DegC (AUG 04 09:11) Heart Rate Oxrzjufgp97 bpm (AUG 04 11:15) BQC460 mmHg (AUG 04 11:10) DBP65 mmHg (AUG 04 11:10) Measurements from flowsheet : Measurements 08/04/2024 9:11 EDT Height 156 cm Admission Weight 57 kg [place] Body Weight 48.76 kg Admission Body Mass [...] Lab results 08/04/2024 11:24 EDT SN - CO - Route of Administration Local SN - CO - Route of Administration Local SN - CO - By (Single) SN - CO - By (Single) SN - CO - By (Single) SN - CO - By (Single) 08/04/2024 11:15 EDT Heart [...] - Additive IRRIGATION CHG 0.05% IRRISEPT 12/ [id number] SN - Irl - Additive BETADINE (POVIDONE [...] Surgeon SN - CAt - Role Performed AERODYNAMICS ENGINEER SN - CAt - Role Performed Scrub 1 SN - CAt - Role Performed Family Day Carer 1 SN - CAt - Role Performed Assessment Expert 1 SN - CAt - Role Performed Physician Business Team Leader SN - CAt - Role Performed Filling Hand 08/04/2024 10:03 EDT SN - Preop - [...] Height 156 cm Admission Weight 57 kg [place] Body Weight 48.76 kg Admission Body Mass [...] Quadrants Present Skin Temperature Warm Skin Description [place] Skin Integrity Intact Mucous Membrane Color [place] Neurological Symptoms Patient denies Characteristics of Speech Clear Level of Consciousness Alert Strength All Extremities Strong Affect/Behavior Appropriate, Calm, Cooperative Orientation Oriented x 4 Standard Safety ID band on, Allergy Band on, Call device within reach, Bed in low position, Wheels locked, Non-Slip footwear 08/04/2024 9:08 EDT Designated Person #1 We May Share [facility] Zita [phone] Designated Person #1 Relationship Daughter Privacy Restrictions Requested None Status N/A Sensory Deficits None Sleep Apnea Snore No Sleep Apnea Tired No Sleep Apnea Obstruction No Sleep Apnea Pressure Yes Sleep Apnea BMI No Sleep Apnea Age Yes Sleep Apnea Neck No Sleep Apnea Gender No Sleep Apnea Score 2 Diagnosed With Sleep Apnea No Advanced Directives Yes Advance Directive Type [place] Durable Power of Wood Turning Lathe Operator for [facility] [place], [place] Declaration (Living Will) Advance Directive Location [...] after midnight, No makeup, No jewelry, Responsible Green Party, Aware of surgery location, Pre-op education done, 1 bottle CHG wash with instructions given, Instructed to take ordered medications, Total Joint Replacement/Colorectal Book Given, SSI prevention handout given SN - Preprocedure Comments Spoke with patient, Verbalizes/Nonverbally indicates understanding, Other: carvedilolol Barriers to Learning None evident Teaching Method Explanation Preferred Spoken Language Panamanian Preferred Written Language Panamanian Teaching Evaluation Verbalizes/Nonverbally indicates understanding Total Joint [...] At-Risk Indicator YES . Assessment and Plan [place] Society of Anesthesiologists (ASA) physical status classification: Class III. Anesthetic Preoperative Plan Premedication: intravenous. Anesthetic technique: Spinal. Induction: intravenously. Maintenance airway: 40%fm. Special Monitoring. Postoperative pain management: Per surgeon. Risks discussed. Informed consent: signed by patient. Digitally Signed by LOBITO CRUZ on 08/04/2024 11:30 AM [facility] 08-03-2024 Telephone encounter Note Spoke with Dr. Pedro. I called patient. She was taking apixaban consistently up until last . Held it after that. Surgical clearance provided. We faxed the form to his office. Jaswinder Schmidt DO [facility] 08-03-2024 Miscellaneous Notes Spoke with Dr. Pedro. I called patient. She was taking apixaban consistently up until last . Held it after that. Surgical clearance provided. We faxed the form to his office. Jaswinder Schmidt DO DR. Pedro would like to speak with you today concerning surgical clearance for tomorrow. cell number [phone] please call. Tracy Chavez LPN 's office called again stating that there has been some issue getting the surgery clearance form faxed to them so to have Herb cleared for the surgery tomorrow needs to speak with via a phone call. Please call 's cell phone at [phone] when able tonight so Herb can still [...] Pedro does not feel comfortable doing at [facility].Jenna Ramesh LPN TC to pt, no answer, no VM set up. Will try again later. Can let her know that the blood work we did the day of the office visit was suggestive that she still may have ongoing blood clots and she had been off the Eliquis. I spoke with Dr. Pedro. He does not feel comfortable doing her surgery at [facility] so he recommended a referral to a [facility] orthopedic surgeon. We could refer her to see someone at [facility] or [facility]. Soonest appointment would be best. Tell her to continue Eliquis for now. Once she is reevaluated for surgery we can devise a plan to bridge her through with anticoagulation. Jaswinder Schmidt DO documented in this encounter [facility] 08-03-[address] Pedro would like to speak with you today concerning surgical clearance for tomorrow. cell number [phone] please call. Tracy Chavez LPN [facility] 08-03-2024 Telephone encounter Note 's office called again stating that there has been some issue getting the surgery clearance form faxed to them so to have Herb cleared for the surgery tomorrow needs to speak with via a phone call. Please call 's cell phone at [phone] when able tonight so Herb can still have surgery tomorrow. Maribeth Dunlap [facility] 08-03-2024 Telephone encounter Note Rodrigo called and stated they are needing the surgical clearance SAL because patient is on for surgery tomorrow. I did tell him we were waiting to hear back from the patient but we will get on this as quickly as possible. Maribeth Flores Pss [facility] 08-03-2024 Telephone encounter Note Patient called back. States she NO longer taking that medication. [facility] 08-03-2024 Telephone encounter Note Attempted to contact patient; VM full, unable to leave a message. Lynette Hendricks LPN [facility] 08-03-2024 Telephone encounter Note I received a form for surgical clearance for her. See if she is still taking apixaban. Jaswinder Schmidt DO [facility] 07-01-2024 Telephone encounter Note Spoke with patient. She states he has an appointment this Saturday with Dr. Pedro to discuss. She will call back and schedule with [facility] orth if needed. Patient informed of order/referral. [facility] Work Phone: 06-26-2024 Telephone encounter Note ATC patient but no answer and voicemail is full. Moon Ruggiero [facility] 06-26-2024 Telephone encounter Note TC to pt and discussed, she is agreeable to this. She will continue Eliquis and see a [facility] ortho. PSS please assist pt in scheduling with a [facility] ortho to move forward with hip relplacement surgery as Dr Pedro does not feel comfortable doing at [facility].Jenna Ramesh LPN [facility] 06-25-2024 Telephone encounter Note TC to pt, no answer, no VM set up. Will try again later. [facility] 06-25-2024 Telephone encounter Note Can let her know that the blood work we did the day of the office visit was suggestive that she still may have ongoing blood clots and she had been off the Eliquis. I spoke with Dr. Pedro. He does not feel comfortable doing her surgery at [facility] so he recommended a referral to a [facility] orthopedic surgeon. We could refer her to see someone at [facility] or [facility]. Soonest appointment would be best. Tell her to continue Eliquis for now. Once she is reevaluated for surgery we can devise a plan to bridge her through with anticoagulation. Jaswinder Schmidt DO [facility] 06-17-2024 Note HNO ID: [id number] Author: JASWINDER SCHMIDT DO Service: ? Author [...] She was taken to the ED at [facility] on 04/19/2020 for 4 complaints of [...] was then taken to the ED at [facility] that night. CTA of the chest [...] interlobar septal thickening. She was transferred to [facility]. She was also diagnosed with E. coli bladder infection and septicemia, chronic kidney disease stage III, anemia and hyponatremia that resolved at the time of discharge. She self discontinued apixaban on May 27 or May 28 because she wants to have the hip replacement surgery. [facility]. Denies cough and shortness of breath presently. [...] Cancer Sister (more content not included)... [facility] 06-17-2024 History of Present illness Narrative [...] She was taken to the ED at [facility] on 04/19/2020 for 4 complaints of [...] was then taken to the ED at [facility] that night. CTA of the chest [...] interlobar septal thickening. She was transferred to [facility]. She was also diagnosed with E. coli bladder infection and septicemia, chronic kidney disease stage III, anemia and hyponatremia that resolved at the time of discharge. She self discontinued apixaban on May 27 or May 28 because she wants to have the hip replacement surgery. Seeing Dr. Maged Pedro at [facility]. Denies cough and shortness of breath presently. [...] lobe pulmonary artery. -Provoked PE--she was in [facility] ED with fever 4 days prior [...] which included preparing to see the patient, ziid-if-tfco patient care, completing clinical documentation, obtaining and/or reviewing separately obtained history, performing a medically appropriate examination, counseling and educating the patient/family/caregiver, ordering medications, tests, or procedures, communicating with other HCPs (not separately reported), and communicating results to the patient/family/caregiver. Jaswinder Schmidt DO documented in this encounter [facility] 05-17-2024 Note . MICRO - Microbiology PROCEDURE: Urine Culture [*1] SOURCE: Urine, Clean Catch BODY SITE: COLLECTED DATE/TIME: 05/16/2024 09:17 EDT RECEIVED DATE/TIME: 05/16/2024 15:47 EDT START DATE/TIME: 05/16/2024 15:47 EDT FREE TEXT SOURCE: FINAL REPORTS Final Report [] Verified Date/Time/Personnel: 05/17/2024 14:17 EDT 10,000 - 50,000 cfu/ml Mixed growth consistent with normal urogenital katelynn. Performing Locations *1: This test was performed at: [address], [facility] , [facility] 05-06-2024 Note ORIGINAL PROCEDURE: LEFT HIP ASPIRATION UNDER FLUOROSCOPY CLINICAL STATEMENT: Left hip pain hip pain, known joint effusion noted on recent CT abdomen and pelvis TRAIN GATEMAN: Samantha Gil PA-C ANESTHESIA: Local ASPIRATE: 20 [...] Sign Date: 05/06/2024 3:01:40 PM Ordering Provider: [facility] 05-06-2024 Note . MICRO - Microbiology PROCEDURE: [...] Locations *1: This test was performed at: [facility], [address] [place] [address], [phone] , [facility] 04-30-2024 Hospital Discharge instructions Patient Education 04/30/2024 [...] Follow these instructions at home: Medicines Take gvaw-yvw-xgwysqn and prescription medicines only as told by [...] right away. Call your local emergency services (511 in the [place] Do not drive yourself [...] 10/04/2001 Document Revised: 07/15/2019 Document Reviewed: 07/15/2019 [employer] Patient Education 2020 [employer]. Follow Up Care 04/23/2024 23:53:31 With:JAIDEN ABDUL BA, MD, Infectious Disease, Infectious Disease Group Address: [facility] [address] [place] [address]- [phone] When:Within 2 Week(s) With:KAYDEN SANDERS DO, Orthopedic Address: [address] [place] [address] [phone] When:Within 3 Week(s) With:LUIS ELLIOTT Address: [address] [place] [address]- Business (1) When:1-2 days Comments:Please call the office to schedule a hospital follow-up appointment. With:SHWETHA WATTERS MD, Orthopedic Address: [address] [facility], [place] [address]- [phone] When:Within 2 Week(s) Comments:for L hip AVN With:[facility] Address:Unknown When: Unknown Comments:They will call you before they come out. Call [phone] with any questions or concerns. Home Physical and occupational therapy will resume and an RN has been added. [facility] 04-30-2024 Discharge summary Date of Service 04/30/2024 [...] (F32.A - ICD-10-CM) Atherosclerotic heart disease of [place] coronary artery without angina pectoris (I25.10 - [...] (one day only), Blood, Once, Preferred Lab: [facility], Stop date 04/30/24 5:00:00 EDT(Complete) Other status: CBC,04/30/24 5:00:00 EDT, Next AM Draw (one day only), Blood, Once, Preferred Lab: [facility], Stop date 04/30/24 5:00:00 EDT(Complete) Other status: [...] BID, # 60 tab(s), 0 Refill(s), Pharmacy: [facility]/pharmacy #[id number], 155, cm, 04/24/24 4:14:00 EDT, Height, 65.6, kg, 04/24/24 4:14:00 EDT, Dosing Weight Ordered: cefdinir 300 mg oral capsule,Dose : 300 mg = 1 cap(s), Oral, q12h, X 14 day(s), # 28 cap(s), 0 Refill(s), 05/14/24 11:48:00 EDT, Pharmacy: [facility]/pharmacy #[id number], 155, cm, 04/24/24 4:14:00 EDT, Height, [...] Physician - Ordered -- 04/28/24 13:43:00 EDT, ORXY MAYORGA MD, Routine, ct scan with concern [...] Where:[facility] [address] [place] [address]- [phone] Follow Up with KAYDEN SANDERS DO, Orthopedic When:In 3 weeks Where:[address] [facility], [place] [address]- [phone] Follow Up with LIUS ELLIOTT When:Within 1-2 days Where:[address] [place] [address]- Business (1) Additional Information: Please call the office to schedule a hospital follow-up appointment. Follow Up with SHWETHA WATTERS MD, Orthopedic When:In 2 weeks Where:[address] [facility], [place] [address]- [phone] Additional Information: for L hip AVN Follow Up with [facility] Additional Information: They will call you before they come out. Call [phone] with any questions or concerns. Home Physical [...] RYAN CAMPBELL MD on 04/30/2024 02:09 PM [facility] 04-30-2024 Note Discharge Instructions Thank you for allowing [facility] to assist you with your healthcare needs. The following is important discharge information regarding your hospital visit. Your Care Team LUIS ELLIOTT Your Diagnosis Acute rhinosinusitis B12 deficiency anemia Bilateral serous otitis media Depression Insomnia Insomnia What to do next Scheduled Follow-Up Appointments 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 When With Where Contact Information StatusPC OV 05/21/2024 03:00 PM EDT BALTES, LUIS RUBBER ROLLER GRINDER-[facility] [address] [place] [phone] Confirmed CV OV 06/15/2024 03:00 PM EDT VELMA REYNOLDS [facility]AK-[facility] Confirmed Follow Up Appointments Follow Up with JAIDEN ABDUL BA, MD, Infectious Disease, Infectious Disease Group When:In 2 weeks Where:[facility] [address] [place] [address]- [phone] Follow Up with KAYDEN SANDERS DO, Orthopedic When:In 3 weeks Where:[address] [facility], [place] [address]- [phone] Follow Up with LUIS ELLIOTT When:Within 1-2 days Where:[address] [place] [phone]- Business (1) Additional Information: Please call the office to schedule a hospital follow-up appointment. Follow Up with SHWETHA WATTERS MD, Orthopedic When:In 2 weeks Where:[address] [facility], [place] [address]- [phone] Additional Information: for L hip AVN Follow Up with [facility] Additional Information: They will call you before they come out. Call [phone] with any questions or concerns. Home Physical [...] Two (2) times a day Pickup at [facility]/pharmacy #4605 New cefdinir (cefdinir 300 mg oral capsule) 1 cap by mouth Every 12 hours Duration: 14 Days Pickup at [facility]/pharmacy #4605 Unchanged acetaminophen (Tylenol Extra Strength 500 [...] mouth Daily at bedtime [facility] Pharmacy Information [facility]/pharmacy #4605: [address], [place] [phone] Please take this list to your next [...] may report side effects to FDA at 6-874-WSF-0901. What other drugs will affect cefdinir? Tell your doctor about all your other medicines, especially: probenecid; or vitamin or mineral supplements that contain iron. This list is not complete. Other drugs may affect cefdinir, including prescription and xbuk-qlv-rzgzgga medicines, vitamins, and herbal products. Not all [...] to ensure that the information provided by Netvibes. ('Dreamisetum') is accurate, up-to-date, and complete, but no guarantee is made to that effect. Drug information contained herein may be time sensitive. [employer] information has been compiled for use by healthcare practitioners and consumers in the [place] and therefore [employer] does not warrant that uses outside of the [place] are appropriate, unless specifically indicated otherwise. iCatapults drug information does not endorse drugs, diagnose patients or recommend therapy. iCatapults drug information is an informational resource designed [...] effective or appropriate for any given patient. [employer] does not assume any responsibility for any aspect of healthcare administered with the aid of information [employer] provides. The information contained herein is not intended to cover all possible uses, directions, precautions, warnings, drug interactions, allergic reactions, or adverse effects. If you have questions about the drugs you are taking, check with your doctor, nurse or pharmacist. Copyright 5827-9154 Netvibes. Version: 9.01. Revision Date: 05/24/2023. apixaban (a PIX a ban) Andrew What is the most important information I should know about apixaban? Apixaban increases your risk of severe or fatal bleeding, especially if you take certain medicines at the same time (including some ragl-rus-vmpoenk medicines). Tell your doctor about all medicines [...] may report side effects to FDA at 8-616-AFP-6963. What other drugs will affect apixaban? Sometimes it is not safe to use certain medications at the same time. Some drugs can affect your blood levels of other drugs you take, which may increase side effects or make the medications less effective. Many other drugs (including some ddek-hcg-vzoyorg medicines) can increase your risk of bleeding or blood clots. Tell your doctor about all medicines you have recently used, especially: any other medicines to treat or prevent blood clots; a blood thinner such as heparin or warfarin (Coumadin, Jantoven); an antidepressant; or aspirin or other NSAID (nonsteroidal anti-inflammatory drug) used buttermaker helper. This list is not complete and many other drugs may affect apixaban. This includes prescription and kmoa-ycc-finavwb medicines, vitamins, and herbal products. Not all [...] to ensure that the information provided by Netvibes. ('Multum') is accurate, up-to-date, and complete, but no guarantee is made to that effect. Drug information contained herein may be time sensitive. [employer] information has been compiled for use by healthcare practitioners and consumers in the [place] and therefore [employer] does not warrant that uses outside of the [place] are appropriate, unless specifically indicated otherwise. iCatapults drug information does not endorse drugs, diagnose patients or recommend therapy. iCatapults drug information is an informational resource designed [...] effective or appropriate for any given patient. [employer] does not assume any responsibility for any aspect of healthcare administered with the aid of information [employer] provides. The information contained herein is not intended to cover all possible uses, directions, precautions, warnings, drug interactions, allergic reactions, or adverse effects. If you have questions about the drugs you are taking, check with your doctor, nurse or pharmacist. Copyright 1339-7054 Netvibes. Version: 6.01. Revision Date: 06/13/2021. Education Materials [...] Follow these instructions at home: Medicines Take ewyx-pbk-yaeuzod and prescription medicines only as told by [...] 10/04/2001 Document Revised: 07/15/2019 Document Reviewed: 07/15/2019 StudyApps Patient Education 2020 Crowdasaurus. Additional Information VACCINATE! IT SAVES LIVES! Members of the community who have not yet received the COVID-19 vaccine and would like to receive it can visit one of [facility] vaccine clinics. There are many vaccine clinic locations within the [facility]. For locations and available times, please visit https://[email or web address].[place] .gov/. It is important to note that some COVID mobile vaccine clinics are held outdoors and may be canceled in rainy or stormy conditions. To learn more about pediatric vaccinations (ages 5-11), we invite you to visit the [facility] webpage. https://www.[facility].org/page s/5212-Ytzsz-Yipuggpcpqy-Frequently -Asked-Questions.html To learn more about the COVID-19 vaccine, we invite you to visit the CDC website for a list of frequently asked questions.https://www.cdc.gov/coron avirus/2019-ncov/vaccines/faq.html Med[employer]ch Patient Portal Access Instructions: Stay connected with your healthcare team and access your personal medical information anytime with the Meditech Patient Portal. Please follow the directions below to create your [facility] account: 1.Access the email account you provided upon registration to the hospital/physician office.2.Look for an invitation email from [facility].3.Open the email and access the invitation link: Accept Invitation to [facility].4.Fill in the required del real to create your account. To access your account, visit [email or web address]. Click the blue button labeled Access Patient [...] you will allow to register on the [facility] Patient Portal for access to your information. You can also access the [facility] [employer] Patient Portal on the [facility] [employer]where juli. Simply click on Patient Portal and then log into your account. If you would like to receive a full copy of your medical records, please contact the [facility] Medical Records Department by calling [phone], Saturday through Saturday between 8 a.m. and [...] Call your local pharmacy or go to http://bit.ly/7F4Qf8a to find one close to you.3.Make use of household items: Use cat litter or old coffee grounds to dispose medications if other options are not available. Mix your drugs with these household products, seal them in an airtight container and throw it into the garbage. Call [facility]: [phone] to be sure your drugs can be [...] aware that I should contact my doctor. Patient/Bridge Club Manager Signature: ____ Date/Time: Relationship to Patient: __ Witness Name/Signature: Date/Time: [facility] 04-30-2024 Note Discharge Instructions Thank you for [...] OV 05/21/2024 03:00 PM EDT LUIS ELLIOTT [address] [phone] Confirmed CV OV 06/15/2024 03:00 PM EDT VELMA REYNOLDS PREETHI [facility] CVC Confirmed Follow Up Appointments Follow Up with JAIDEN ABDUL BA, MD, Infectious Disease, Infectious Disease Group When:In 2 weeks Where:[facility] [address] [place] [address]- [phone] Follow Up with KAYDEN SANDERS DO, Orthopedic When:In 3 weeks Where:[address] [facility], [place] [phone] Follow Up with LUIS ELLIOTT When:Within 1-2 days Where:[address] [place] [address]- Business (1) Additional Information: Please call the office to schedule a hospital follow-up appointment. Follow Up with SHWETHA WATTERS MD, Orthopedic When:In 2 weeks Where:[address] [facility], [place] [phone] Additional Information: for L hip AVN Follow Up with [facility] Additional Information: They will call you before they come out. Call [phone] with any questions or concerns. Home Physical [...] Two (2) times a day Pickup at [facility]/pharmacy #4605 New cefdinir (cefdinir 300 mg oral capsule) 1 cap by mouth Every 12 hours Duration: 14 Days Pickup at [facility]/pharmacy #4605 Unchanged acetaminophen (Tylenol Extra Strength 500 [...] mouth Daily at bedtime [facility] Pharmacy Information [facility]/pharmacy #4605: [address], [place] [phone] Please take this list to your next doctor s visit. Bring all medications you take, including over the counter medications, herbals and other supplements with you to your doctor s visit. Patients and families are reminded to discard old lists and to update any records with all medication providers or retail pharmacies. Medication Leaflets cefdinir ([facility] mark carter) What is the most important [...] may report side effects to FDA at 2-744-RMO-4896. What other drugs will affect cefdinir? Tell your doctor about all your other medicines, especially: probenecid; or vitamin or mineral supplements that contain iron. This list is not complete. Other drugs may affect cefdinir, including prescription and igyc-qqh-tsqfdun medicines, vitamins, and herbal products. Not all [...] to ensure that the information provided by Netvibes. ('Multum') is accurate, up-to-date, and complete, but no guarantee is made to that effect. Drug information contained herein may be time sensitive. [employer] information has been compiled for use by healthcare practitioners and consumers in the [place] and therefore [employer] does not warrant that uses outside of the [place] are appropriate, unless specifically indicated otherwise. [employer]'s drug information does not endorse drugs, diagnose patients or recommend therapy. iCatapults drug information is an informational resource designed [...] effective or appropriate for any given patient. [facility] does not assume any responsibility for any aspect of healthcare administered with the aid of information [facility] provides. The information contained herein is not intended to cover all possible uses, directions, precautions, warnings, drug interactions, allergic reactions, or adverse effects. If you have questions about the drugs you are taking, check with your doctor, nurse or pharmacist. Copyright 5908-3572 [facility]. Version: 9.. Revision Date: 05/24/2023. apixaban (a PIX a ban) Andrew What is the most important information I should know about apixaban? Apixaban increases your risk of severe or fatal bleeding, especially if you take certain medicines at the same time (including some phug-lnh-msvqxlq medicines). Tell your doctor about all medicines [...] may report side effects to FDA at 1-199-DRD-8746. What other drugs will affect apixaban? Sometimes it is not safe to use certain medications at the same time. Some drugs can affect your blood levels of other drugs you take, which may increase side effects or make the medications less effective. Many other drugs (including some vkxd-veg-bwadeqe medicines) can increase your risk of bleeding or blood clots. Tell your doctor about all medicines you have recently used, especially: any other medicines to treat or prevent blood clots; a blood thinner such as heparin or warfarin (Coumadin, Jantoven); an antidepressant; or aspirin or other NSAID (nonsteroidal anti-inflammatory drug) used fdc. This list is not complete and many other drugs may affect apixaban. This includes prescription and gjpd-xja-xgdigyc medicines, vitamins, and herbal products. Not all [...] to ensure that the information provided by Netvibes. ('Multum') is accurate, up-to-date, and complete, but no guarantee is made to that effect. Drug information contained herein may be time sensitive. [employer] information has been compiled for use by healthcare practitioners and consumers in the [place] and therefore [employer] does not warrant that uses outside of the [place] are appropriate, unless specifically indicated otherwise. [employer]'s drug information does not endorse drugs, diagnose patients or recommend therapy. iCatapults drug information is an informational resource designed [...] effective or appropriate for any given patient. [employer] does not assume any responsibility for any aspect of healthcare administered with the aid of information [employer] provides. The information contained herein is not intended to cover all possible uses, directions, precautions, warnings, drug interactions, allergic reactions, or adverse effects. If you have questions about the drugs you are taking, check with your doctor, nurse or pharmacist. Copyright 9890-9037 Netvibes. Version: 6.01. Revision Date: 06/13/2021. Education Materials [...] Follow these instructions at home: Medicines Take dgbo-icj-mgttqvd and prescription medicines only as told by [...] 10/04/2001 Document Revised: 07/15/2019 Document Reviewed: 07/15/2019 ElseKaggle Patient Education 2020 StudyApps Inc. Additional Information VACCINATE! IT SAVES LIVES! Members of the community who have not yet received the COVID-19 vaccine and would like to receive it can visit one of [facility] vaccine clinics. There are many vaccine clinic locations within the [facility]. For locations and available times, please visit https://[email or web address].[place] .gov/. It is important to note that some COVID mobile vaccine clinics are held outdoors and may be canceled in rainy or stormy conditions. To learn more about pediatric vaccinations (ages 5-11), we invite you to visit the [facility] webpage. https://www.[facility].org/page s/3652-Vhpqr-Wzzbdsjpzni-Frequently -Asked-Questions.html To learn more about the COVID-19 vaccine, we invite you to visit the CDC website for a list of frequently asked questions.https://www.cdc.gov/coron avirus/2019-ncov/vaccines/faq.html [facility] Patient Portal Access Instructions: Stay connected with your healthcare team and access your personal medical information anytime with the [employer] Patient Portal. Please follow the directions below to create your [facility]ch account: 1.Access the email account you provided upon registration to the hospital/physician office.2.Look for an invitation email from [facility].3.Open the email and access the invitation link: Accept Invitation to [employer].4.Fill in the required del real to create your account. To access your account, visit [email or web address]. Click the blue button labeled Access Patient [...] you will allow to register on the [facility] [facility] Patient Portal for access to your information. You can also access the [facility] [facility] Patient Portal on the [employer]where juli. Simply click on Patient Portal and then log into your account. If you would like to receive a full copy of your medical records, please contact the [facility] Medical Records Department by calling [phone], Saturday through Saturday between 8 a.m. and [...] Call your local pharmacy or go to [email or web address].Virtual Goods Market/[email or web address] to find one close to you.3.Make use of household items: Use cat litter or old coffee grounds to dispose medications if other options are not available. Mix your drugs with these household products, seal them in an airtight container and throw it into the garbage. Call [facility]: [phone] to be sure your drugs can be [...] aware that I should contact my doctor. 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, left groin/hip procedure [...] tab(s), Oral, qHS fluticasone nasal 0.05 mg/inh [place] 100 mcg 2 spray(s), Nostril, each, qDay [...] Lisa Jimenez RN on 04/30/2024 09:25 AM [facility] 04-30-2024 Infectious disease Progress note Date of [...] 24 hours SKIN: BUE/facial 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, left groin/hip procedure site with ecchymosis and bloody drainage noted 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 INCISIONS/DRESSINGS: None EXTREMITIES: BUE skin discolorations/rash-chronic, generalized [...] tab(s), Oral, qHS fluticasone nasal 0.05 mg/inh [place] 100 mcg 2 spray(s), Nostril, each, qDay [...] Lisa Jimenez RN on 04/30/2024 09:25 AM [facility] 04-30-2024 Orthopaedic surgery Progress note Date of [...] BIB ARTIS DO on 04/30/2024 07:13 AM [facility] 04-30-2024 Orthopaedic surgery Progress note Date of [...] BIB ARTIS DO on 04/30/2024 07:13 AM [facility] 04-30-2024 Orthopaedic surgery Progress note Date of [...] BIB ARTIS DO on 04/30/2024 07:13 AM [facility] 04-30-2024 Note . MICRO - Microbiology PROCEDURE: [...] Locations *1: This test was performed at: [facility], [address] [place] [address], [address] , [facility] 04-30-2024 Note . MICRO - Microbiology PROCEDURE: [...] Locations *1: This test was performed at: [facility], [address] [place] [address], [facility] , [facility] 04-29-2024 Procedure note IR Brief Post Procedure Note Preprocedure Dx: left hip pain Post Procedure Dx: Same Procedure: LEFT hip aspiration Anesthesia: Local EBL: Minimal Complications: None Status: Unchanged Findings: 1. Successful LEFT hip aspiration. Collected 20mL cloudy yellow synovial fluid. Plan: 1. Synovial fluid sent to lab. Full report to follow. Samantha Gil PA-C Interventional Radiology Pager: [phone] IR dept: [id number] Available on [facility] Digitally Signed by SAMANTHA GIL PA-C on 04/29/2024 01:52 PM [facility] 04-29-2024 Note IR Procedure Record Summary Primary Physician: SAMANTHA GIL PA-C Finalized Date/Time: 04/29/24 13:51:11 Pt. Name: HERB VALDES/Sex: 1955 Female Med Rec #: [id number] Physician: CRISTIAN SOTO MD Financial #: [id number] Pt. Type: I Room/Bed: 66/A Admit/Disch: 04/24/24 [...] RN Corey Tech Role Performed Circulating Technologist Family Day Carer 1 Details Time In 04/29/24 13:29:00 04/29/24 [...] and Delonte Aguilar, results are properly Shonna [employer], labeled and MARCK Pitts appropriately displayed, Alcohol [...] Radiology - Action Plan Outcomes Met? Yes Typewriter Operator Automatic MARCK Pitts Completing Procedure Plan Last Modified By: MARCK Pitts 04/29/24 13:47:14 Case Comments Finalized By: MARCK Pitts Document Signatures Signed By: MACRK Pitts 04/29/24 13:51 [facility] 04-29-2024 Note Subjective: Patient seen for acute [...] tab(s), Oral, qHS fluticasone nasal 0.05 mg/inh [place] 100 mcg 2 spray(s), Nostril, each, qDay [...] RYAN CAMPBELL MD on 04/29/2024 01:20 PM [facility] 04-29-2024 Orthopaedic surgery Consult note Date of Service 04/28/2024 Reason for Consultation Left hip CT findings Referring Physician ID History of Present Illness Patient is a 68-year-old female who presents to [facility] for other medical conditions, however was noted [...] She is established with Dr. Eddy at [facility] - Weightbearing as tolerated, PT OT [...] Use, 07/09/2018 Use: Never., 07/17/2019 Home/Environment Primary Vp Digital Marketing: Self, lives alone., 10/01/2023 Nutrition/Health Type of [...] BIB ARTIS DO on 04/28/2024 04:58 PM [facility] 04-28-2024 Orthopaedic surgery Consult note Date of Service 04/28/2024 Reason for Consultation Left hip CT findings Referring Physician ID History of Present Illness Patient is a 68-year-old female who presents to [facility] for other medical conditions, however was noted [...] She is established with Dr. Eddy at [facility] - Weightbearing as tolerated, PT OT [...] Use, 07/09/2018 Use: Never., 07/17/2019 Home/Environment Primary Vp Digital Marketing: Self, lives alone., 10/01/2023 Nutrition/Health Type of [...] BIB ARTIS DO on 04/28/2024 04:58 PM [facility] 04-28-2024 Orthopaedic surgery Consult note Date of Service 04/28/2024 Reason for Consultation Left hip CT findings Referring Physician ID History of Present Illness Patient is a 68-year-old female who presents to [facility] for other medical conditions, however was noted [...] She is established with Dr. Eddy at [facility] - Weightbearing as tolerated, PT OT [...] Use, 07/09/2018 Use: Never., 07/17/2019 Home/Environment Primary Vp Digital Marketing: Self, lives alone., 10/01/2023 Nutrition/Health Type of [...] BIB ARTIS DO on 04/28/2024 04:58 PM [facility] 04-28-2024 Note Subjective: Patient seen for acute [...] tab(s), Oral, qHS fluticasone nasal 0.05 mg/inh [place] 100 mcg 2 spray(s), Nostril, each, qDay [...] RYAN CAMPBELL MD on 04/28/2024 01:38 PM [facility] 04-28-2024 Infectious disease Progress note Date of [...] tab(s), Oral, qHS fluticasone nasal 0.05 mg/inh [place] 100 mcg 2 spray(s), Nostril, each, qDay [...] Lisa Jimenez RN on 04/28/2024 10:05 AM [facility] 04-28-2024 Infectious disease Progress note Date of [...] this morning SKIN: 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 MICRO - Microbiology PROCEDURE: Blood Culture (bacterial) [*1] SOURCE: Blood BODY SITE: COLLECTED DATE/TIME: 04/23/2024 21:31 EDT RECEIVED DATE/TIME: 04/24/2024 14:11 EDT START DATE/TIME: 04/24/2024 14:11 EDT FREE TEXT SOURCE: FINAL REPORTS Final Report [] Verified Date/Time/Personnel: 04/28/2024 07:53 EDT Escherichia coli Isolated from anaerobe bottle only. Refer to previous culture for susceptibility. [id number] Escherichia coli #2 Isolated from anaerobe bottle only. PRELIMINARY REPORTS Preliminary Report [] Verified Date/Time/Personnel: 04/27/2024 09:10 EDT Escherichia coli Isolated from anaerobe bottle only. Refer to previous culture for susceptibility. [id number] Escherichia coli #2 Isolated from anaerobe bottle [...] Locations *1: This test was performed at: [facility], [address] [place] [address], [facility] , [facility] ([place]) 04-27-2024 Note ORIGINAL EXAMINATION: CT OF THE [...] 04/27/2024 8:45:58 PM Ordering Provider: AGUILARRENITA LOPEZ [facility] 04-27-2024 Note Date of Service April 27, [...] tab(s), Oral, qHS fluticasone nasal 0.05 mg/inh [place] 100 mcg 2 spray(s), Nostril, each, qDay [...] AGUILAR LOPEZ MD on 04/27/2024 08:00 PM [facility] 04-27-2024 Infectious disease Progress note Date of [...] 24 hours SKIN: 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 INCISIONS/DRESSINGS: None EXTREMITIES: [...] tab(s), Oral, qHS fluticasone nasal 0.05 mg/inh [place] 100 mcg 2 spray(s), Nostril, each, qDay [...] Lisa Jimenez RN on 04/27/2024 09:31 AM [facility] 04-27-2024 Infectious disease Progress note Date of [...] 24 hours SKIN: 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 INCISIONS/DRESSINGS: None EXTREMITIES: [...] tab(s), Oral, qHS fluticasone nasal 0.05 mg/inh [place] 100 mcg 2 spray(s), Nostril, each, qDay [...] Lisa Jimenez RN on 04/27/2024 09:31 AM [facility] 04-26-2024 Orthopaedic surgery Consult note Date of Service 04/25 Reason for Consultation Left hip avascular necrosis Referring Physician Medicine History of Present Illness Patient is a 68-year-old female who presents to [facility] for other medical conditions, however was noted [...] Use, 07/09/2018 Use: Never., 07/17/2019 Home/Environment Primary Vp Digital Marketing: Self, lives alone., 10/01/2023 Nutrition/Health Type of [...] APRIL CARO DO on 04/25/2024 05:03 PM [facility] 04-26-2024 Infectious disease Consult note Date of Service Reason for Consultation UTI, bacteremia Referring Physician Dr. Lopez History of Present Illness 68-year-old female with past medical history of coronary artery disease status post CABG, bilateral carotid stenosis status post carotid enterectomy, hypertension, chronic anemia, CKD, depression, thoracic outlet syndrome, recent avascular necrosis of the left hip as a transfer from [place] with shortness of breath, altered mental status, nausea, vomiting and chills. She recently had fall last week and injured her left hip and was seen initially in the ER due to this and was found to have avascular necrosis and was sent home. A few days later, patient developed the above symptoms so came to the ER and was transferred from [place]. She does have history of cholecystectomy. Patient [...] Use, 07/09/2018 Use: Never., 07/17/2019 Home/Environment Primary Vp Digital Marketing: Self, lives alone., 10/01/2023 Nutrition/Health Type of [...] by ELIZABETH LARA on 04/26/2024 12:49 PM [facility] 04-26-2024 Note ORIGINAL EXAMINATION: TWO XRAY VIEWS [...] 04/26/2024 3:24:13 PM Ordering Provider: AGUILAR LOPEZ [facility] 04-26-2024 Note ORIGINAL EXAMINATION: ULTRASOUND OF THE [...] Date: 04/26/2024 1:56:29 PM Ordering Provider: ELIZABETH [facility] 04-26-2024 Infectious disease Consult note Date of Service Reason for Consultation UTI, bacteremia Referring Physician Dr. Lopez History of Present Illness 68-year-old female with past medical history of coronary artery disease status post CABG, bilateral carotid stenosis status post carotid enterectomy, hypertension, chronic anemia, CKD, depression, thoracic outlet syndrome, recent avascular necrosis of the left hip as a transfer from [place] with shortness of breath, altered mental status, nausea, vomiting and chills. She recently had fall last week and injured her left hip and was seen initially in the ER due to this and was found to have avascular necrosis and was sent home. A few days later, patient developed the above symptoms so came to the ER and was transferred from [place]. She does have history of cholecystectomy. Patient [...] Use, 07/09/2018 Use: Never., 07/17/2019 Home/Environment Primary Vp Digital Marketing: Self, lives alone., 10/01/2023 Nutrition/Health Type of [...] by ELIZABETH LARA on 04/26/2024 12:49 PM [facility] 04-26-2024 Note . MICRO - Microbiology PROCEDURE: [...] Locations *1: This test was performed at: [facility], [address] [place] [address], [id number] , [facility] ([place] 04-25-2024 Orthopaedic surgery Consult note Date of Service 04/25 Reason for Consultation Left hip avascular necrosis Referring Physician Medicine History of Present Illness Patient is a 68-year-old female who presents to [facility] for other medical conditions, however was noted [...] Use, 07/09/2018 Use: Never., 07/17/2019 Home/Environment Primary Vp Digital Marketing: Self, lives alone., 10/01/2023 Nutrition/Health Type of [...] APRIL CARO DO on 04/25/2024 05:03 PM [facility] 04-25-2024 Cardiology Consult note Date of Service [...] shortness of breath. Was recently discharged from [facility] due to decreased ambulation left hip pain, [...] flow (brisk flow). IMPRESSIONS: Severe CAD in [place]. Patent COTO to LAD. Patent Left subclavian [...] Use, 07/09/2018 Use: Never., 07/17/2019 Home/Environment Primary Vp Digital Marketing: Self, lives alone., 10/01/2023 Nutrition/Health Type of [...] LOUIS RUBIO MD on 04/24/2024 03:45 PM [facility] 04-24-2024 Evaluation + Plan note Extrac tarun [...] Appointment Date:05/21/2024 03:00:00 PM Scheduled Provider:LUIS ELLIOTT Location:[facility] 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:PC OV Appointment Date:06/15/2024 03:00:00 PM Scheduled Provider:VELMA REYNOLDS Location:[facility] 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:CV OV Diagnostic Tests Pending * Sodium Random Urine 04/26/24 * Osmolality Urine 04/26/24 Future Scheduled Tests Laboratory* Complete Blood Count 10/03/23 Radiology* BD Bone Density DEXA Axial Skeleton 06/19/23 [facility] 07-05-2024 Note* Exam Date Time Procedure Performing Provider Status 04/24/24 10:53 AM Echocardiogram, Adult - CV Auth (Verified) [facility] 07-05-2024 NoteSinus rhythm Inferior infarct, old Prolonged QT interval Electronic Signature: DANIELLE VARNER MD 04/24/2024 20:41:20[facility] 07-05-2024 Cardiology Consult note Date of Service [...] shortness of breath. Was recently discharged from [facility] due to decreased ambulationleft hip pain, diagnosed [...] flow (brisk flow). IMPRESSIONS: Severe CAD in [place]. Patent COTO to LAD. Patent Left subclavian [...] Use, 07/09/2018 Use: Never., 07/17/2019 Home/Environment Primary Vp Digital Marketing: Self, lives alone., 10/01/2023 Nutrition/Health Type of [...] LOUIS RUBIO MD on 04/24/2024 03:45 PM [id number] NoteSinus rhythm Inferior infarct, old Electronic Signature: DANIELLE VARNER MD 04/24/2024 20:34:33[facility] 07-05-2024 NoteSinus rhythm Inferior infarct, old Abnormal T, consider ischemia, anterior leads Prolonged QT interval Electronic Signature: DANIELLE VARNER MD 04/24/2024 08:36:54[facility] 07-05-2024 History and physical note Date of Service 04/24/2024 Chief Complaint shortness of breath History of Present Illness 68-year-old female with a history of CAD status post CABG followed by stent placement 02/2023, bilateral carotid stenosis status post carotid endarterectomy, hypertension, chronic anemia, CKD, depression, thoracic outlet syndrome recently admitted to [place] fo decreased ambulation and left hip pain [...] Use, 07/09/2018 Use: Never., 07/17/2019 Home/Environment Primary Vp Digital Marketing: Self, lives alone., 10/01/2023 Nutrition/Health Type of [...] CRISTIAN SOTO MD on 04/24/2024 05:14 AM [id number] Note ORIGINAL EXAMINATION: CTA OF THE CHEST [...] By: Luis Crump Electronically signed By Luis rCump Dictated Date: 04/23/2024 11:06:27 PM Prelim Date: 04/23/2024 11:18:34 PM Sign Date: 04/23/2024 11:18:34 PM Ordering Provider: KINGSTON [facility]07-04-2024 Note ORIGINAL EXAMINATION: ONE XRAY VIEW OF [...] Date: 04/23/2024 9:49:22 PM Ordering [facility] NoteSinus rhythm Inferior infarct, old Electronic Signature: KINGSTON VELASCO MD 04/23/2024 21:15:31[facility] 07-03-2024 Note. MICRO - Microbiology PROCEDURE: [...] Locations *1: This test was performed at: [facility], [address] [place] [address], [facility] , [facility] ([place])04-21-2024 Hospital Discharge instructions Patient Education 04/21/2024 11:41:36 Vitamin B12 Deficiency, Npie-zp-Gyvp Vitamin B12 Deficiency Vitamin B12 deficiency means [...] 09/25/2012 Document Revised: 06/16/2019 Document Reviewed: 06/16/2019 StudyApps Patient Education 2020 [employer]. 04/21/2024 11:41:27 Anemia Anemia Anemia is a [...] spleen. Follow these instructions at home: Take opej-qzm-togzist and prescription medicines only as told by [...] 11/14/2005 Document Revised: 09/19/2018 Document Reviewed: 11/08/2017 [employer]Apps Patient Education 2020 [employer]. 04/21/2024 11:41:21 Nausea and Vomiting, Adult, Warb-xt-Oqxy Nausea and Vomiting, Adult Nausea is feeling [...] fruit juice). ?Low-calorie sports drinks. Eat bland, uoee-oh-zzplkr foods in small amounts as you are able, such as: ?Bananas. ?Applesauce. ?Rice. ?Low-fat (lean) meats. ?[place]. ?Crackers. Avoid drinking fluids that have a lot of sugar or caffeine in them. This includes energy drinks, sports drinks, and soda. Avoid alcohol. Avoid spicy or fatty foods. General instructions Take wzwx-ekt-hkcnahn and prescription medicines only as told by your doctor. Drink enough fluid to keep your pee (urine) pale yellow. Wash your hands often with soap and water. If you cannot use soap and water, use hand emergency medical technician/driver. Make sure that all people in your [...] too much water in your body. Take clsd-llf-dkjwlrr and prescription medicines only as told by [...] 03/25/2009 Document Revised: 01/29/2020 Document Reviewed: 03/17/2019 [employer]Apps Patient Education 2020 [employer]. 04/21/2024 11:41:15 Hyponatremia, Cefc-yq-Bhzx Hyponatremia Hyponatremia is when the amount of [...] symptoms. Follow these instructions at home: Take nexm-gls-yksmkdy and prescription medicines only as told by [...] 06/18/2012 Document Revised: 12/24/2019 Document Reviewed: 09/10/2019 [employer]Apps Patient Education 2020 [employer] Follow Up Care 04/19/2024 21:05:26 With:VELMA REYNOLDS APRN-[facility] Address: [address] [facility] [address] [facility] [place] [phone] When:04/28/2024 14:15:00 Comments:This is your post-hospital follow-up appointment. With:LUIS ELLIOTT Address: [address] [place] [phone] When:04/28/2024 11:30:00 Comments:This is your post-hospital appointment. Follow-up as scheduled. [facility] 07-02-2024 Note Discharge Instructions Thank you for allowing [facility] to assist you with your healthcare needs. [...] Hospital Follow-Up 04/28/2024 11:30 AM LUIS COBOS [address] [phone] Confirmed CV OV Hospital Follow Up 04/28/2024 02:15 PM EDVELMA LAO [place] Confirmed PC OV 05/21/2024 03:00 PM EDT LUIS ELLIOTT [address] [phone] Confirmed CV OV 06/15/2024 03:00 PM EDT VELMA REYNOLDS [place] Confirmed Follow Up Appointments Follow Up with LUIS ELLIOTT When:04/28/2024 11:30 AM EDT Where:[address] [place] [phone] Additional Information: This is your post-hospital appointment. Follow-up as scheduled. Follow Up with VELMA REYNOLDS When:04/28/2024 02:15 PM EDT Where:[address] [facility] [place] [phone] Additional Information: This is your post-hospital follow-up [...] mouth Twice daily with meals Pickup at [facility]/pharmacy #[id number] DID NOT TAKE TODAY Unchanged acetaminophen (Tylenol [...] bedtime Insomnia DID NOT TAKE Pharmacy Information [facility]/pharmacy #[id number]: [address] [place], [place] [phone] What How Much When Comments Stop Taking [...] may report side effects to FDA at 1-312-TBT-5405. What other drugs will affect oral cyanocobalamin? [...] drugs may affect cyanocobalamin, including prescription and xeqn-ywu-awtauqh medicines, vitamins, and herbal products. Not all [...] to ensure that the information provided by [employer]. ('[employer]') is accurate, up-to-date, and complete, but no guarantee is made to that effect. Drug information contained herein may be time sensitive. [employer] information has been compiled for use by healthcare practitioners and consumers in the [place] and therefore [employer] does not warrant that uses outside of the [place] are appropriate, unless specifically indicated otherwise. [employer]'s drug information does not endorse drugs, diagnose patients or recommend therapy. [facility] drug information isan informational resource designed to [...] effective or appropriate for any given patient. [facility] does not assume any responsibility for any aspect of healthcare administered with the aid of information [facility] provides. The information contained herein is not intended to cover all possible uses, directions, precautions, warnings, drug interactions, allergic reactions, or adverse effects. If you have questions about the drugs you are taking, check with your doctor, nurse or pharmacist. Copyright 8065-7930 [employer]. Version: 9.. Revision Date: 07/23/2023. carvedilol (SERA [...] may report side effects to FDA at 6-555-RTN-0460. What other drugs will affect carvedilol? Sometimes it is not safe to use certain medications at the same time. Some drugs can affect your blood levels of other drugs you take, which may increase side effects or make the medications less effective. Other drugs may affect carvedilol, including prescription and ibvy-phx-ubfrjkh medicines, vitamins,and herbal products. Tell your doctor [...] to ensure that the information provided by [employer]. ('[employer]') is accurate, up-to-date, and complete, but no guarantee is made to that effect. Drug information contained herein may be time sensitive. [employer] information has been compiled for use by healthcare practitioners and consumers in the [place] and therefore [employer] does not warrant that uses outside of the [place] are appropriate, unless specifically indicated otherwise. [employer] drug information does not endorse drugs, diagnose patients or recommend therapy. [employer] drug information isan informational resource designed to [...] effective or appropriate for any given patient. [employer] does not assume any responsibility for any aspect of healthcare administered with the aid of information [employer] provides. The information contained herein is not intended to cover all possible uses, directions, precautions, warnings, drug interactions, allergic reactions, or adverse effects. If you have questions about the drugs you are taking, check with your doctor, nurse or pharmacist. Copyright 4373-4495 [employer]. Version: 16.01. Revision Date: 02/12/2019. ondansetron (oral) [...] may report side effects to FDA at 0-726-KLB-2840. What other drugs will affect ondansetron? Ondansetron [...] interact with ondansetron. This includes prescription and yfnd-uhi-qgnihvf medicines, vitamins, and herbal products. Give a [...] to ensure that the information provided by [employer]. ('[employer]') is accurate, up-to-date, and complete, but no guarantee is made to that effect. Drug information contained herein may be time sensitive. [employer] information has been compiled for use by healthcare practitioners and consumers in the [place] and therefore [employer] does not warrant that uses outside of the [place] are appropriate, unless specifically indicated otherwise. [employer] drug information does not endorse drugs, diagnose patients or recommend therapy. [employer] drug information isan informational resource designed to [...] effective or appropriate for any given patient. [employer] does not assume any responsibility for any aspect of healthcare administered with the aid of information [employer] provides. The information contained herein is not intended to cover all possible uses, directions, precautions, warnings, drug interactions, allergic reactions, or adverse effects. If you have questions about the drugs you are taking, check with your doctor, nurse or pharmacist. Copyright 1483-2174 [employer]. Version: 16.. Revision Date: 05/23/2023. Education Materials [...] 09/25/2012 Document Revised: 06/16/2019 Document Reviewed: 06/16/2019 StudyApps Patient Education 2020 [employer]. Anemia Anemia is a condition in which [...] spleen. Follow these instructions at home: Take hwad-qlt-waxbevg and prescription medicines only as told by [...] 11/14/2005 Document Revised: 09/19/2018 Document Reviewed: 11/08/2017 StudyApps Patient Education 2020 [employer]. Nausea and Vomiting, Adult Nausea is [...] Follow these i (more content not included)... [facility]07-01-2024 Note Date of Service 04/20/2024 Chief Complaint pt arrived with [facility] with c/o a fall. was seen this morning at [place] for nausea and abd pain. everything was negative at [place]. tonight she fell and couldnt get out of the tub. History of Present Illness Patient is a 68-year-old female, who follows with Luis Elliott CNP with a past medical history significant for CAD s/p PTCA and CABG, hypertension, chronic kidney disease, and depression[facility]. Patient has an active history recently for ED visits as well as PCP visits. She states that she presented to [facility] ED yesterday morning due to nausea/vomiting and left hip pain. She has been bedbound for about 4 days due to nausea and vomiting and generally not feeling well. 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 Patient was referred to [facility] who plans for surgery in the future and was started on oxycodone for pain. She states that [facility] ED did some lab work and [...] possible causes. All testing was done at [facility] should beavailable in the system. The [...] EGD and that cannot be done at [facility] inpatient. She will have to be [...] oxycodone for pain. Has follow-up scheduled with [facility]. DVT prophylaxis with SCDs. Code status: [...] Use, 07/09/2018 Use: Never., 07/17/2019 Home/Environment Primary Vp Digital Marketing: Self, lives alone., 10/01/2023 Nutrition/Health Type of [...] by OKSANA TIRADO on 04/20/2024 03:27 PM [facility]07-01-2024 Evaluation + Plan noteExtracted from: Title:History [...] oxycodone for pain. Has follow-up scheduled with [facility]. DVT prophylaxis with SCDs. Code status: [...] Appointment Date:04/28/2024 11:30:00 AM Scheduled Provider:LUIS ELLIOTT Location:[facility] 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:[facility] Hospital Follow-Up Appointment Date:04/28/2024 02:15:00 PM Scheduled Provider:VELMA REYNOLDS Location:[facility] 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:[facility] Hospital Follow Up Appointment Date:05/21/2024 03:00:00 PM Scheduled Provider:LUIS ELLIOTT Location:[facility] 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: OV Appointment Date:06/15/2024 03:00:00 PM Scheduled Provider:VELMA REYNOLDS Location:[facility] 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:[facility] Future Scheduled Tests Laboratory* Complete Blood Count 10/03/23 Radiology* BD Bone Density DEXA Axial Skeleton 06/19/23 [facility] 06-30-2024 Note ORIGINAL EXAMINATION: CT OF [...] Sign Date: 04/19/2024 11:32:28 PM Ordering Provider: [facility]06-30-2024 Note ORIGINAL EXAMINATION: CT OF THE HEAD [...] Report By: Srikanth Doll Electronically signed By tIalo Fitzpatrick DO Dictated Date: 04/19/2024 11:21:59 PM Prelim Date: 04/19/2024 11:31:35 PM Sign Date: 04/19/2024 11:38:20 PM Ordering Provider: [facility]06-30-2024 Note ORIGINAL EXAMINATION: 2 XRAY VIEW OF [...] Sign Date: 04/19/2024 11:31:45 PM Ordering Provider: [facility]06-30-2024 Note ORIGINAL EXAMINATION: ONE XRAY VIEW OF [...] by: Italo Fitzpatrick DO Preliminary Report By: Sriknath Doll Electronically signed By Italo Fitzpatrick DO Dictated Date: 04/19/2024 11:19:42 PM Prelim Date: 04/19/2024 11:20:43 PM Sign Date: 04/19/2024 11:32:35 PM Ordering Provider: [facility]06-30-2024 NoteSinus rhythm Inferior infarct, old Baseline wander in lead(s) II,III,aVR,aVF Electronic Signature: KARAN FRANCOIS DO 04/19/2024 21:30:18[facility] 06-25-2024 Hospital Discharge instructions Patient Education [...] or swelling over your back or spine [phone] [employer]. [address] [place] [address]. All rights reserved. This information is not intended as a substitute for professional medical care. Always follow yourhealthcare professional's instructions. Follow Up Care 04/14/2024 16:32:09 With:KRISTINE WRIGHT MD, Neurosurgery Address: [address] [place] [address] [place] [address] [phone] When:2-4 days only if needed [facility] Address: [address] [place] [phone] When:2-4 days [facility] 06-25-2024 Note Discharge Instructions Thank you for allowing [facility] to assist you with your healthcare needs. The following is importantdischarge information regarding your hospital visit. Diagnosis from Today's Visit Sciatic pain What to Do Next Instructions from Your Care Team No qualifying data available. Post Acute Orders No qualifying data available. You Need to Schedule the Following Appointments Follow Up with KRISTINE WRIGHT MD, Neurosurgery When:Within 2-4 days, only if needed Where:[address] [place] [phone] Follow Up with LUIS ELLIOTT When:Within 2-4 days Where:[address] [facility] [place] [phone] Allergies Ultram confusion codeine nausea lisinopril Cough [...] or swelling over your back or spine [phone] [employer]. [address] [place] [address], [place] [address]. All rights reserved. This information is not intended as a substitute for professional medical care. Always follow yourhealthcare professional's instructions. Additional Information VACCINATE! IT SAVES LIVES! Members of the community who have not yet received the COVID-19 vaccine and would like to receive it can visit one of [facility] vaccine clinics. There are many vaccine clinic locations within the [facility]. For locations and available times, please visit [email or web address] It is important to note that some COVID mobile vaccine clinics are held outdoors and may be canceled in rainy or stormy conditions. To learn more about pediatric vaccinations (ages 5-11), we invite you to visit the [employer] [facility] webpage. https://www.akjudge.mes.org/pages/3752-Qaven-Uqpcmodpowi-Qzwdanktjc-Gzkjy-Bfk stions.htmlTo learn more about the COVID-19 vaccine, we invite you to visit the CDC website for a list of frequently asked questions. https://www.cdc.gov/coronavirus/2019-ncov/vaccines/faq.html [facility] Patient Portal Access Instructions: Stay connected with your healthcare team and access your personal medical information anytime with the [facility] Patient Portal. If you would like a full copy of your medical records please contact the [facility] Medical Records Department Saturday through Saturday between 8a.m. and 4:30p.m. Please follow the directions below to access the portal: 1.Access the email account you provided upon registration to the hospital.2.Look for an invitation email from [facility].3.Open the email and access the invitation link: Accept Invitation to [facility]4.Fill in the required del real to create your account. Sign into [email or web address] with your username and password that you [...] you will allow to register on the [facility] Patient Portal for access to your information. You can also access the [facility] Patient Portal on the Net[employer]ia. Simply click on Health Records under [employer]Kst[employer] and then click on the Face.com logo. HOW TO SAFELY DISPOSE OF PRESCRIPTION [...] Call your local pharmacy or go to http://[employer].Virtual Goods Market/5S7Et5c to find one close to you.3.Make use of household items: Use cat litter or old coffee grounds to dispose medications if other options arenot available. Mix your drugs with these household products, seal them in an airtight container andthrow it into the garbage. Call [facility]: [phone] to be sure your drugs can be [...] am aware that I should contactmy doctor. 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 [address] [place] [address], [place] [address]. All rights reserved. This information is not intended as a substitute for professional medical care. Always follow yourhealthcare professional's instructions. Follow Up Care 03/03/2024 15:47:45 With:Go to emergency room if symptoms worsen Address:Unknown When:2-4 days With:LUIS ELLIOTT APRN-RECEIVER/LABORER Address: [address] [place], [place] [address], [place] [address]- [phone] When:5 to 7 days [facility] 05-14-2024 Note Discharge Instructions Thank you [...] Within 5 to 7 days Where: [address] [place] [address] [phone] Allergies Ultram (confusion) codeine (nausea) lisinopril (Cough) [...] affected hand Decreased movement of the hand 4212-9033 [employer]. [address] [place] [address], [place] [address]. All rights reserved. This information is not intended as a substitute for professional medical care. Always follow yourhealthcare professional's instructions. Additional Information VACCINATE! IT SAVES LIVES! Members of the community who have not yet received the COVID-19 vaccine and would like to receive it can visit one of [facility] vaccine clinics. There are many vaccine clinic locations within the [facility]. For locations and available times, please visit www.gettheshot.coronavirus.[place].gov/. It is important to note that some COVID mobile vaccine clinics are held outdoors and may be canceled in rainy or stormy conditions. To learn more about pediatric vaccinations (ages 5-11), we invite you to visit the [facility] webpage. https://www.[facility].org/pages/4425-Ihdgr-Mcymfcpfnrm-Qwpvxidamo-Nspig-Qxo stions.htmlTo learn more about the COVID-19 vaccine, we invite you to visit the CDC website for a list of frequently asked questions. https://www.cdc.gov/coronavirus/2019-ncov/vaccines/faq.html [facility] Patient Portal Access Instructions: Stay connected with your healthcare team and access your personal medical information anytime with the [facility] Patient Portal. If you would like a full copy of your medical records please contact the [facility] Medical Records Department Saturday through Saturday between 8a.m. and 4:30p.m. Please follow the directions below to access the portal: 1.Access the email account you provided upon registration to the [facility].2.Look for an invitation email from [facility].3.Open the email and access the invitation link: Accept Invitation to [facility]4.Fill in the required del real to create [...] you will allow to register on the [facility] Patient Portal for access to your information. You can also access the [facility] Patient Portal on the Netcordia. Simply click on Health Records under KakKstati and then click on the [facility] logo. [...] Call your local pharmacy or go to http://[employer].Virtual Goods Market/2F7Vm6i to find one close to you.3.Make use of household items: Use cat litter or old coffee grounds to dispose medications if other options arenot available. Mix your drugs with these household products, seal them in an airtight container andthrow it into the garbage. Call [facility]: [phone] to be sure your drugs can be [...] am aware that I should contactmy doctor. Patient/Bridge Club Manager Signature: Date/Time: Relationship to Patient: Witness Name/Signature: Date/Time: [facility]05-14-2024 Note Discharge Instructions Thank you for allowing [facility] to assist you with your healthcare needs. [...] Within 5 to 7 days Where: [address] [facility] [place] [address] [phone] Allergies Ultram (confusion) codeine (nausea) lisinopril (Cough) [...] affected hand Decreased movement of the hand 6960-2733 [employer]. [address] [place] [address], [place] [address]. All rights reserved. This information is not intended as a substitute for professional medical care. Always follow yourhealthcare professional's instructions. Additional Information VACCINATE! IT SAVES LIVES! Members of the community who have not yet received the COVID-19 vaccine and would like to receive it can visit one of [facility] vaccine clinics. There are many vaccine clinic locations within the [facility]. For locations and available times, please visit www.gettheshot.coronavirus.[place].gov/. It is important to note that some COVID mobile vaccine clinics are held outdoors and may be canceled in rainy or stormy conditions. To learn more about pediatric vaccinations (ages 5-11), we invite you to visit the [facility] webpage. https://www.akjudge.mes.org/pages/1696-Pjqda-Uutaomlrgid-Ighgyffxbu-Drpal-Qwy stions.htmlTo learn more about the COVID-19 vaccine, we invite you to visit the CDC website for a list of frequently asked questions. https://www.cdc.gov/coronavirus/2019-ncov/vaccines/faq.html [facility] Patient Portal Access Instructions: Stay connected with your healthcare team and access your personal medical information anytime with the [facility] Patient Portal. If you would like a full copy of your medical records please contact the [facility] Medical Records Department Saturday through Saturday between 8a.m. and 4:30p.m. Please follow the directions below to access the portal: 1.Access the email account you provided upon registration to the hospital.2.Look for an invitation email from [facility].3.Open the email and access the invitation link: Accept Invitation to [facility]4.Fill in the required del real to create your account. Sign into [email or web address] with your username and password that you [...] you will allow to register on the [facility] Patient Portal for access to your information. You can also access the [facility] Patient Portal on the Net[employer]ia. Simply click on Health Records under [employer] and then click on the Face.com logo. HOW TO SAFELY DISPOSE OF PRESCRIPTION [...] Call your local pharmacy or go to http://[employer].Virtual Goods Market/0G5Uo7x to find one close to you.3.Make use of household items: Use cat litter or old coffee grounds to dispose medications if other options arenot available. Mix your drugs with these household products, seal them in an airtight container andthrow it into the garbage. Call [facility]: [phone] to be sure your drugs can be [...] am aware that I should contactmy doctor. Patient/Bridge Club Manager Signature: Date/Time: Relationship to Patient: Witness Name/Signature: Date/Time: [facility]05-14-2024 Note ORIGINAL EXAMINATION: THREE XRAY VIEWS [...] Date: 03/03/2024 4:32:59 PM Ordering Provider: AKI [facility]08-30-2023 Note ORIGINAL EXAMINATION: BONE DENSITOMETRY 2023 3:18 [...] Date: 2023 3:45:59 PM Ordering Provider: LUIS [facility]10-25-2022 Note ORIGINAL NM MYOCARDIAL SPECT STRESS/REST CLINICAL [...] Sign Date: 08/14/2022 4:22:45 PM Ordering Provider:Velma [facility]10-25-2022 Note ORIGINAL NM MYOCARDIAL SPECT STRESS/REST CLINICAL [...] Sign Date: 08/14/2022 4:22:45 PM Ordering Provider:Velma [facility]08-09-2022 Hospital Discharge instructions Patient Education 05/29/2022 08:53:26 [...] 09:54:02 With:APRIL PABON JR, MD, Surgery Address: [address] [place] [phone] [phone] When: Unknown [facility] 08-09-2022 Summary of episode note Discharge Instructions Thank you for allowing [facility] to assist you with your healthcare needs. The following is importantdischarge information regarding your hospital visit. Your Care Team LUIS ELLIOTT What to do next Scheduled Follow-Up Appointments 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 When With Where Contact InformationPC OV Follow Up 07/31/2022 10:00 AM LUIS COBOS [address] [phone] Follow Up Appointments Follow Up with APRIL PABON JR, MD, Surgery When Where: [address] [place] [phone] Education Materials Minor Surgery Discharge Instructions __X__ [...] to receive it can visit one of [facility] vaccine clinics. There are many vaccine clinic locations within the [facility]. For locations and available times, please visit https://gettheshot.coronavirus.[place].gov/. It is important to note that some COVID mobile vaccine clinics are held outdoors and may be canceled in rainy or stormy conditions. To learn more about pediatric vaccinations (ages 5-11), we invite you to visit the [facility] webpage. https://www.akjudge.mes.org/pages/6492-Flslm-Zdwygjdgcfk-Oybzviuxzg-Xwffp-Nrz stions.htmlTo learn more about the COVID-19 vaccine, we invite you to visit the [facility] website for a list of frequently asked questions. https://Lookback/assets/Gfdicruv-ajq-Nvxltlmo/cwkyu-Lpvesxz-Kwdlhrwqjz _Asked-Questions.pdf [facility] Patient Portal Access Instructions: Stay connected with your healthcare team and access your personal medical information anytime with the [facility] Patient Portal.If you would like a full copy of your medical records, please contact the [facility] Medical Records Department, Saturday through Saturday between 8a.m. and 4:30p.m. Please follow the directions below to access the portal: 1.Access the email account you provided upon registration to the [facility].2.Look for an invitation email from [facility].3.Open the email and access the invitation link: Accept Invitation to [facility]4.Fill in the required del real to create your account. Sign into [email or web address] with your username and password that you [...] you will allow to register on the [facility] Patient Portal for access to your information. You can also access the [facility] Patient Portal on the [employer] juli. Simply click on Health Records under [employer]st[employer] and then click on the Face.com logo. HOW TO SAFELY DISPOSE OF PRESCRIPTION [...] Call your local pharmacy or go to http://[employer].Virtual Goods Market/6D8Og9g to find one close to you.3.Make use of household items: Use cat litter or old coffee grounds to dispose medications if other options arenot available. Mix your drugs with these household products, seal them in an airtight container andthrow it into the garbage. Call [facility]: [phone] to be sure your drugs can be [...] am aware that I should contactmy doctor. Patient/Bridge Club Manager Signature: Date/Time: Relationship to Patient: Witness Name/Signature: [facility]Time[facility] App[facility]ments Appointment Date:05/01/2022 09:00:00 AM Scheduled Provider:LUIS ELLIOTT Location:[facility] 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:PC OV [facility] Evaluation + Plan note Future Appointments Appointment Date:07/31/2022 10:00:00 AM Scheduled Provider:LUIS ELLIOTT Location:[facility] 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: OV Follow Up Future Scheduled Tests Laboratory* Urinalysis 05/01/22 * Urine Culture 05/01/22 Radiology* US Soft Tissue Mass 05/01/22 [facility] Evaluation + Plan note Future Appointments Appointment Date:07/31/2022 10:00:00 AM Scheduled Provider:LUIS ELLIOTT Location:[facility] 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: OV Follow Up Diagnostic Tests Pending * Folate Level 05/02/22 * Vitamin B12 Level 05/02/22 * Urine Culture 05/02/22 Future Scheduled Tests Laboratory* Urinalysis 05/01/22 * Urine Culture 05/01/22 Radiology* US Soft Tissue Mass 05/01/22 [facility] Evaluation + Plan note Future Appointments Appointment Date:07/31/2022 10:00:00 AM Scheduled Provider:LUIS ELLIOTT Location:[facility] 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:PC OV Follow Up Future Scheduled Tests Laboratory* Urinalysis 05/01/22 * Urine Culture 05/01/22 [facility] Evaluation + Plan note Future Appointments Appointment Date:08/30/2022 01:00:00 PM Scheduled Provider:VELMA REYNOLDS Location:[facility] 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:CV OV Appointment Date:09/06/2022 03:30:00 PM Scheduled Provider:LUIS ELLIOTT Location:[facility] 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:PC OV Future Scheduled Tests Laboratory* Urinalysis 05/01/22 * Thyroid Stimulating Hormone 07/30/22 * Urine Culture 05/01/22 * Complete Blood Count 07/30/22 * Lipid Profile 07/30/22 * Complete Metabolic Panel 07/30/22 [facility] Evaluation + Plan note Future Appointments Appointment Date:09/17/2022 03:15:00 PM Scheduled Provider:ANUM GUY MD Location:[facility] 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: IT APPLICATIONS ANALYST Appointment Date:10/11/2022 02:30:00 PM Scheduled Provider:VELMA REYNOLDS Location:[facility] 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:CV OV Appointment Date:12/06/2022 03:30:00 PM Scheduled Provider:LUIS ELLIOTT Location:[facility] 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:PC OV Follow Up Diagnostic Tests Pending * Urine Culture 09/10/22 * Antinuclear Antibody Screen, Serum 09/10/22 Future Scheduled Tests Laboratory* Urinalysis 05/01/22 * Thyroid Stimulating Hormone 07/30/22 * Urine Culture 05/01/22 * Complete Blood Count 07/30/22 * Lipid Profile 07/30/22 * Complete Metabolic Panel 07/30/22 [facility] Evaluation + Plan note Future Appointments Appointment Date:08/29/2023 03:30:00 PM Scheduled Provider:LUIS ELLIOTT Location:[facility] 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:PC Wellness Medicare Appointment Date:12/09/2023 03:00:00 PM Scheduled Provider:VELMA REYNOLDS Location:[facility] 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:CV OV Future Scheduled Tests Laboratory* [...] BD Bone Density DEXA Axial Skeleton 05/29/23 [facility] Evaluation + Plan note Future Appointments Appointment Date:08/29/2023 03:30:00 PM Scheduled Provider:LUIS ELLIOTT Location:[facility] 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:PC Wellness Medicare Appointment Date:12/09/2023 03:00:00 PM Scheduled Provider:VELMA REYNOLDS Location:[facility] 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:CV OV Future Scheduled Tests Laboratory* Basic Metabolic Panel 09/06/23 * Ferritin 09/15/22 * Iron Level 09/15/22 * Thyroid Stimulating Hormone 07/30/22 * Thyroid Stimulating Hormone 09/15/22 * Complete Blood Count 07/30/22 * Complete Blood Count 09/06/23 * Lipid Profile 07/30/22 * Methylmalonic Acid 09/06/23 * Homocysteine 09/06/23 * Complete Metabolic Panel 07/30/22 Radiology* BD Bone Density DEXA Axial Skeleton 06/19/23 [facility] Evaluation + Plan note Future Appointments Appointment Date:08/29/2023 03:30:00 PM Scheduled Provider:LUIS ELLIOTT Location:[facility] 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:PC Wellness Medicare Appointment Date:12/09/2023 03:00:00 PM Scheduled Provider:VELMA REYNOLDS Location:[facility] 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:CV OV Diagnostic Tests Pending * Methylmalonic Acid 08/01/23 Future Scheduled Tests Laboratory* Thyroid Stimulating Hormone 09/15/22 Radiology* BD Bone Density DEXA Axial Skeleton 06/19/23 [facility] evaluation + Plan note Future Appointments Appointment Date:02/20/2024 02:00:00 PM Scheduled Provider:LUIS ELLIOTT Location:[facility] 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:PC OV Appointment Date:06/15/2024 03:00:00 PM Scheduled Provider:VELMA REYNOLDS Location:[facility] 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:CV OV Future Scheduled Tests Laboratory* Complete Blood Count 10/03/23 Radiology* BD Bone Density DEXA Axial Skeleton 06/19/23 [facility] evaluation + Plan note Future Appointments Appointment Date:05/21/2024 03:00:00 PM Scheduled Provider:LUIS ELLIOTT Location:[facility] 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:PC OV Appointment Date:06/15/2024 03:00:00 PM Scheduled Provider:VELMA REYNOLDS Location:[facility] 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:CV OV Future Scheduled Tests Laboratory* Complete Blood Count 10/03/23 Radiology* BD Bone Density DEXA Axial Skeleton 06/19/23 [facility] evaluation + Plan note Future Appointments Appointment Date:04/28/2024 11:30:00 AM Scheduled Provider:LUIS ELLIOTT Location:[facility] 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:PC OV Hospital Follow-Up Appointment Date:04/28/2024 02:15:00 PM Scheduled Provider:VELMA REYNOLDS Location:[facility] 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:CV OV Hospital Follow Up Appointment Date:05/21/2024 03:00:00 PM Scheduled Provider:LUIS ELLIOTT Location:[facility] 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:PC OV Appointment Date:06/15/2024 03:00:00 PM Scheduled Provider:VELMA REYNOLDS Location:[facility] 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:CV OV Future Scheduled Tests Laboratory* Complete Blood Count 12/14/23 Radiology* BD Bone Density DEXA Axial Skeleton 06/19/23 [facility] Evaluation + Plan note Future Appointments Appointment Date:07/22/2024 03:30:00 PM Scheduled Provider:LUIS ELLIOTT Location:[facility] 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: OV Pre Op Appointment Date:08/26/2024 02:00:00 PM Scheduled Provider:LUIS ELLIOTT Location:[facility] 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: OV Diagnostic Tests Pending * MRSA (PCR) 07/14/24 Future Scheduled Tests Laboratory* Ferritin 05/21/24 * Folate Level 05/21/24 * Iron Level 05/21/24 * Thyroid Stimulating Hormone 05/21/24 * Vitamin B12 Level 05/21/24 * Complete Blood Count 05/21/24 * Complete Blood Count 10/03/23 * Vitamin D Level 05/21/24 * Complete Metabolic Panel 05/21/24 [facility] Evaluation + Plan note Future Appointments Appointment Date:08/14/2024 12:30:00 PM Scheduled Provider:LUIS ELLIOTT Location:[facility] 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:[facility] Hospital Follow-Up Appointment Date:08/26/2024 02:00:00 PM Scheduled Provider:LUIS ELLIOTT Location:[facility] 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: OV Future Scheduled Tests Laboratory* Ferritin 05/21/24 * Folate Level 05/21/24 * Iron Level 05/21/24 * Thyroid Stimulating Hormone 05/21/24 * Vitamin B12 Level 05/21/24 * Complete Blood Count 05/21/24 * Complete Blood Count 10/03/23 * Vitamin D Level 05/21/24 * Complete Metabolic Panel 05/21/24 [facility] Evaluation note* Diagnosis Single subsegmental pulmonary embolism without acute cor pulmonale (HCC)- [facility] Avascular necrosis of bone of left hip (HCC)- [facility] Narrative No data available for this section [facility] Hospital Discharge instructions No data available for this section [facility] Nurse Progress note* ASIYA Salazar: PERFORM Event Display: Progress Note-Nurse Authored Date: [id number] [facility] Progress note No data available for this section [facility] Summary note* ASIYA Salazar: PERFORM Event Display: Patient Summary Documents Authored Date: [id number] [facility] Summary Purpose Family History No Family History Records Found Advance Directives No Advanced Directives Records FoundNo Advanced Directives Records FoundNo Advanced Directives Records FoundNo Advanced Directives Records Found Reason for Referral Specialty Diagnoses / Procedures Referred By Jordon upton Referred To Contact Orthopedics Diagnoses Avascular necrosis of bone of left hip (HCC) Procedures CONSULT TO ORTHOPAEDICS OFFICE/OUTPATIENT [facility] 60 MINUTES Jaswinder Schmidt, [address] [place] [address] Referral ID Status Reason Start Date Expiration Date Visits Requested Visits Authorized [id number] Authorized PCP Requested Referral 06/25/2024 06/25/2025 1 1 Additional Source Comments Care Team (unrecognized sect ion and content) Typewriter Operator Automatic Relationship Specialty Start Date End Date Luis Elliott CNP [address] [place] [address] PCP - General Family Medicine 12/24/19 Velma Reynolds CNP [address] [place] [address] Family Medicine 06/17/24 Typewriter Operator Automatic Relationship Specialty Start Date End Date Luis Elliott CNP [address] [place] [address] PCP - General Family Medicine 12/24/19 Velma Reynolds CNP [address] [place] [phone] Family Medicine 06/17/24 Care Team (unrecognized sect ion and content) Care Team Personnel Name: LUIS ELLIOTT Position: P4 Advanced Practice Nurse Med Service: Active Provider Member Role: Primary Care Physician Address: Address: [address] [place] [address]- Name: VELMA REYNOLDS Position: P4 Advanced Practice Nurse Med Service: Active Provider Member Role: Microstrategy Reports Developer Address: Address: [address] [place] [address]- Name: MOLINA COPELAND MD Position: Physician Med Service: Admitting Member Role: Casing Blower Address: Address: [address] [place] [address]- Care Team Related Persons Name: PIA VALDESER Address: Home [address], [place] [phone] [place] Care Team Personnel Name: LUIS ELLIOTT Position: P4 Advanced Practice Nurse Med Service: Active Provider Member Role: Primary Care Physician Address: Address: [address] [place] [id number] [place] [address] Name: VELMA REYNOLDS Position: P4 Advanced Practice Nurse Med Service: Active Provider Member Role: Microstrategy Reports Developer Address: Address: [address] [place] [address]- Name: MOLINA COPELAND MD Position: Physician Med Service: Admitting Member Role: Casing Blower Address: Address: [facility] [address] [address]- Care Team Related Persons Name: PIA VALDESER Address: Home [address], [place] [phone] [place] Care Team Personnel Name: LUIS ELLIOTT Position: P4 Advanced Practice Nurse Med Service: Active Provider Member Role: Primary Care Physician Address: Address: [address] [place] [address] [place] Name: VELMA REYNOLDS Position: P4 Advanced Practice Nurse Med Service: Active Provider Member Role: Microstrategy Reports Developer Address: Address: [address] [place] [address] [address] [place] [id number]- Name: MOLINA COPELAND MD Position: Physician Med Service: Admitting Member Role: Casing Blower Address: Address: [address] [facility] [address] [place] [address]- [place] Care Team Related Persons Name: AMANDA VIDALIA Address: Home [address] [place], [place] [phone] [place] Care Team Personnel Name: LUIS ELLIOTT Position: P4 Advanced Practice Nurse Med Service: Active Provider Member Role: Primary Care Physician Address: Address: [address] [place] [address]- Name: VELMA REYNOLDS Position: P4 Advanced Practice Nurse Med Service: Active Provider Member Role: Microstrategy Reports Developer Address: Address: [address] [place] [address] [place] [address]- Name: MOLINA COPELAND MD Position: Physician Med Service: Admitting Member Role: Casing Blower Address: Address: [address] [facility] [address] [place] [address]- Care Team Related Persons Name: BEE VALDES Address: Home [address] [place], [place] [phone] [place] Care Team Personnel Name: LUIS ELLIOTT Position: P4 Advanced Practice Nurse Member Role: Primary Care Physician Address: Address: [address] [place] [address]- Name: VELMA REYNOLDS Position: P4 Advanced Practice Nurse Member Role: Microstrategy Reports Developer Address: Address: [address] [facility] [address] [place] [address]- [place] Name: MOLINA COPELAND MD Position: Physician Member Role: Casing Blower Address: Address: [address] [facility] [address] [place] [address]- [place] Care Team Related Persons Name: BEE VALDES Address: Home [address] [place], [place] [id number] Care Team Personnel Name: LUIS ELLIOTT GAMARECEIVER/LABORER Position: P4 Advanced Practice Nurse Member Role: Primary Care Physician Address: Address: [address] [facility] [place] [address]- [place] Name: JYOTI VELMA APRN-RECEIVER/LABORER Position: P4 Advanced Practice Nurse Member Role: Microstrategy Reports Developer Address: Address: [address] [place] [address] [address] [facility] [place] [address]- [place] Name: MOLINA COPELAND MD Position: Physician Member Role: Casing Blower Address: Address: [address] [facility] [address] [place] [address]- Care Team Related Persons Name: BEE VALDES Address: Home [address] [place], [place] [phone] INFORMATION SOURCE (unrecogn ized section and content) DATE CREATED AUTHOR 06/12/2024 [facility] ([place]) DATE CREATED AUTHOR AUTHOR'S ORGANIZ ATION 08/06/2024 [facility] DATE CREATED AUTHOR AUTHOR'S ORGANIZ ATION 08/09/2024 [facility] DATE CREATED AUTHOR AUTHOR'S ORGANIZ ATION 08/13/2024 [facility] Source Comments (unrecognize d section and content) In the event this informatio n is protected by the Federal Confidentiality of Alcohol and Drug Abuse Patient Records regulations: The Federal rules restrict any use of the information to criminally investigate or prosecute any alcohol or drug abuse patient.[facility] the event this information is protected by the Federal Confidentiality of Alcohol and Drug Abuse Patient Records regulations: The Federal rules restrict any use of the information to criminally investigate or prosecute any alcohol or drug abuse patient[facility] Reason for Visit (unrecogniz ed section and [...] BE BASED ON THE PRIMARY CLINICAL RECORDS. [facility]. provides no warranty or guarantee of the accuracy or completeness of information in this document.
--- NOTE | 2024-08-16 23:56 | ECHOCS_ITS ---
Reason For Study: TIA Procedure This was a 2D Doppler, Color Flow transthoracic echocardiogram. The study was technically difficult. Patient was scanned supine due to recent hip replacement. Contrast injection was performed. Exam performed portable in patient room. Left Ventricle Normal LV size. Left ventricular systolic function is normal. The left ventricular ejection fraction is 60 %. Stage 1 diastolic dysfunction. No regional wall motion abnormalities noted. Right Ventricle Normal RV size. Normal systolic function. Atria Normal left atrium. Normal right atrium. Bubble contrast study negative for right to left interatrial shunt. Mitral Valve Normal mitral valve. Tricuspid Valve Normal tricuspid valve. Aortic Valve Trisinus/trileaflet aortic valve. Mild (1+) aortic valve insufficiency. Pulmonic Valve Normal pulmonic valve. Great Vessels Normal aortic root. The pulmonary artery is normal size. Inferior vena cava collapse with respiration. Pericardium/Pleural No pericardial effusion. Medication Diluted definity 2ml given slow IV push to enhance endocardial definition. Performed a rapid injection of agitated mix of 9 cc saline and 1cc air to assess for atrial septal defect. MMode/2D Measurements & Calculations LVIDd: 3.7 cm IVSd: 1.00 cm LVOT diam: 1.8 cm LVIDs: 1.9 cm LVPWd: 0.96 cm RVDd: 2.2 cm FS: 47.7 % LVOT area: 2.5 cm2 asc Aorta Diam: 3.2 cm LAV(MOD-bp): 32.1 ml LVAd ap4: 25.8 cm2 LAV(MOD-bp) Indexed: 22.0 ml/m2 LVLd ap4: 7.2 cm LAV(MOD-sp2): 31.7 ml EDV(MOD-sp4): 75.3 ml LAV(MOD-sp4): 30.0 ml EDV(sp4-el): 78.6 ml LVAs ap4: 14.7 cm2 LVLs ap4: 5.6 cm ESV(MOD-sp4): 32.0 ml ESV(sp4-el): 32.9 ml EF(MOD-sp4): 57.5 % EF(sp4-el): 58.1 % LVAd ap2: 23.1 cm2 SV(MOD-sp4): 43.3 ml SV(MOD-sp2): 35.8 ml LVLd ap2: 7.1 cm EDV(MOD-sp2): 62.0 ml EDV(sp2-el): 64.0 ml LVAs ap2: 13.3 cm2 LVLs ap2: 5.7 cm ESV(MOD-sp2): 26.3 ml ESV(sp2-el): 26.5 ml EF(MOD-sp2): 57.7 % SV(sp4-el): 45.7 ml Ao sinus diam: 2.[address] Junction: 2.1 cm LA dimension(2D): 2.8 cm LA A4 area: 12.5 cm2 RA A4 area: 9.2 cm2 TAPSE: 2.1 cm Time Measurements MV dec time: 0.27 sec Doppler Measurements & Calculations MV E max raghu: 94.4 cm/sec Lat Peak E' Raghu: 7.8 cm/sec Med Peak E' Raghu: 5.3 cm/sec MV A max raghu: 106.5 cm/sec E/E' lat: 12.1 E/E' med: 17.9 MV E/A: 0.89 MV dec slope: 347.2 cm/sec2 Ao V2 max: 172.8 cm/sec AI max raghu: 403.9 cm/sec Ao max P.4 mmHg AI max P.2 mmHg Ao V2 mean: 112.5 cm/sec AI dec slope: 215.9 cm/sec2 Ao mean P.9 mmHg AI P1/2t: 547.9 msec Ao V2 VTI: 36.6 cm AV (velocity ratio): 0.87 LISA(I,D): 2.2 cm2 LISA(V,D): 2.0 cm2 LV V1 max: 141.4 cm/sec SV(LVOT): 79.1 ml PA V2 max: 102.4 cm/sec LV V1 max P.0 mmHg PA max PG (full): 0.36 mmHg LV V1 mean P.9 mmHg LV V1 mean: 106.1 cm/sec LV V1 VTI: 31.8 cm ECHO/Echo Complete W/ Contrast Interpretation Summary Normal LV size. Left ventricular systolic function is normal. The left ventricular ejection fraction is 60 %. Stage 1 diastolic dysfunction. Contrast injection was performed. Ordering Physician: Trung Deleon Performed By: Katherine Saucedo RDCS and Student
--- NOTE | 2024-08-16 23:56 | CDU_ITS ---
Reason For Study: Altered mental status Rt. Velocities/BP Lt. Velocities/BP Prox CCA 83.4/15.4 cm/sec. Prox CCA 101.1/21.2 cm/sec. Mid CCA 104.7/21.2 cm/sec. Mid CCA 101.1/18.8 cm/sec. Dist CCA 66.3/11.3 cm/sec. Dist CCA 155.8/24.3 cm/sec. Prox ICA 131.3/23.6 cm/sec. Prox ICA 79/9 cm/sec. Mid ICA 123/26.6 cm/sec. Mid ICA 114.6/26.2 cm/sec. Dist ICA 124.7/24.3 cm/sec. Dist ICA 86.3/22.5 cm/sec. Rt. ICA/CCA = 1.25. Lt. ICA/CCA = 1.13. Prox ECA 240.2/13.9 cm/sec. Prox ECA 155.8/11.5 cm/sec. Lt. Vert. 14.6/3.9 cm/sec. Right Extracranial There is heterogeneous, irregular atherosclerotic plaque noted in the right common carotid artery. There is heterogeneous, irregular atherosclerotic plaque noted in the right internal carotid artery. There is heterogeneous, irregular atherosclerotic plaque noted in the right external carotid artery. Bidirectional flow noted in the right vertebral artery. Left Extracranial There is heterogeneous, irregular atherosclerotic plaque noted in the left common carotid artery. There is homogeneous, smooth atherosclerotic plaque noted in the left internal carotid artery. There is heterogeneous, irregular atherosclerotic plaque noted in the left external carotid artery. Antegrade flow is noted in the left vertebral artery. Procedure Carotid Duplex [id number]. This is a Carotid Duplex examination using B-mode, color flow and specral Doppler. Exam performed portable in patient room. VL/Carotid Duplex Ultrasound Interpretation Summary Moderate (50-69%) stenosis right extracranial internal carotid. Mild (<50%) stenosis left extracranial internal carotid. The Right vertebral flow is bidirectional. The Left vertebral is patent and antegrade. Ordering Physician: Trung Deleon Referring Physician: Markell Harris Performed By: Latanya Tran RVT
--- OUTSIDE RECORDS SUMMARY | 2024-08-16 23:56 | XMS RPT_ITS | CCD ---
Author Organization [facility] Informat ion Partnership [facility] Care Team Providers Care Equipment Associate Name Role Phone EARL ORO, LUIS Primary Care Physician EARL ORO, LUIS Attending Unavailabl e BALTES NEEDLE LOOM WEAVER-BUSINESS IMPROVEMENT MANAGER, [facility] Unavailabl e BALTES NEEDLE LOOM WEAVER-BUSINESS IMPROVEMENT MANAGER, LUIS Attending Unavailabl e BALTES NEEDLE LOOM WEAVER-BUSINESS IMPROVEMENT MANAGER, [facility] Unavailabl e BALTES NEEDLE LOOM WEAVER-BUSINESS IMPROVEMENT MANAGER, [facility] Unavailabl e BALTES NEEDLE LOOM WEAVER-BUSINESS IMPROVEMENT MANAGER, LUIS Attending UnavailAGUILAR Collins MD Attending Unavaila ble BALTES NEEDLE LOOM WEAVER-BUSINESS IMPROVEMENT MANAGER, [facility] Unavailabl yvonne JESUS MD, DR PHILLIPS Consulting Unavailab Amanuel ROGERS, CRISTIAN Admitting Unavailable ISIDORO GARLAND MD, DR JAIDEN CHENG Consulting Unavailpalmira YANG MD, CHRISTIAN Consulting Taurus MAYORGA MD, ROXY Gong Consulting Unavailable EARL SMITHN-ESAU, LUIS Attending Unavailabl e BALTES NEEDLE LOOM WEAVER-BUSINESS IMPROVEMENT MANAGER, [facility] Unavailabl e JYOTI NEEDLE LOOM WEAVER-BUSINESS IMPROVEMENT MANAGERVELMA Attending Unavailab le BALTES NEEDLE LOOM WEAVER-BUSINESS IMPROVEMENT MANAGER, [facility] Unavailabl e BALTES NEEDLE LOOM WEAVER-BUSINESS IMPROVEMENT MANAGER, [facility] Unavailabl e CARMELA MONSON, DR TATIANA Chavis Attending Unavailabl e BALTES NEEDLE LOOM WEAVER-BUSINESS IMPROVEMENT MANAGER, [facility] Unavailabl e SHWETHA KIM Attending Unavailable CANDIDA NEEDLE LOOM WEAVER-BUSINESS IMPROVEMENT MANAGEROKSANA Consulting Unavaila ble MELISSATES NEEDLE LOOM WEAVER-BUSINESS IMPROVEMENT MANAGER, [facility] Unavailabl e KULWINDER NEEDLE LOOM WEAVER-BUSINESS IMPROVEMENT MANAGERMEGAN Admitting Unavail VENTURA Crews DO Attending Taurus VELASCO MD, DR ONOFRE Attending Unavailabl e BALTES NEEDLE LOOM WEAVER-BUSINESS IMPROVEMENT MANAGER, [facility] Unavailabl yvonne ALANIS MD, DR STRONG Attending Unavailab le BALTES NEEDLE LOOM WEAVER-BUSINESS IMPROVEMENT MANAGER, [facility] Unavailabl e BALTES NEEDLE LOOM WEAVER-BUSINESS IMPROVEMENT MANAGER, LUIS Primary Care Unavailabl e YADYWon , ZULY Attending Unavailable BALTES NEEDLE LOOM WEAVER-[facility], LUIS Attending Unavailabl e BALTES NEEDLE LOOM WEAVER-[facility], LUIS Primary Care Unavailabl e BALTES NEEDLE LOOM WEAVER-[facility], LUIS Attending Unavailabl e BALTES NEEDLE LOOM WEAVER-[facility], [place] Primary Care Unavailabl e Baltes BUSINESS IMPROVEMENT MANAGER, [place] Primary Care Provider Velma Reynolds CNP Unavailable JASWINDER SCHMIDT Referring Unavailable BALTES, LUIS Primary Care Unavailable JASWINDER SCHMIDT Attending Unavailable BALTES, LUIS Primary Care Unavailable BALTES NEEDLE LOOM WEAVER-[facility], [place] Primary Care Unavailabl yvonne PEDRO MD, DR MAGED Chavis Attending Unavailab noemi PEDRO MD, DR MAGED Chavis Admitting Unavailab noemi PEDRO MD, DR MAGED Chavis Attending Unavailab le BALTES NEEDLE LOOM WEAVER-[facility], [place] Primary Care Unavailabl e BALTES NEEDLE LOOM WEAVER-[facility], LUIS Consulting Unavailabl e KENNEN NEEDLE LOOM WEAVER-[facility], SIMA Diaz Consulting Luigi PEDRO MD, DR MAGED Chavis Attending Unavailab le BALTES NEEDLE LOOM WEAVER-[facility], [place] Primary Care Unavailabl e Allergies Allergy Classification Reported Allergen(s) Allergy Type Date of Onset Reaction(s) Facility (20 sources) Codeine; Translations: [codeine] Drug Allergy 6 nausea [facility] (20 sources) Lisinopril; Translations: [lisinopril] Drug Allergy 0 Other: See Comments [facility] (20 sources) traMADol; Translations: [tramadol] Drug Allergy confusion, Unknown [facility] (2 sources) altram [Other] Propensity to adverse reactions 7 Mental Status Change [facility] (1 source) OTHER; Translations: [OTHER] Propensity to adverse reactions (disorder) 7 [facility] Repository Medications Current Medications Medication Drug Class(es) Dates Sig (Normalized) Sig (Original) acetaminophen 1000 mg oral tablet (20 sources) Start: 08-05-2024 take 1 tablet by mouth once daily Tylenol Dose : 1,000 mg = 2 tab(s), Oral, TID, not to exceed 3000 mg/day, 0 Refill(s) Start Date: 08/05/24 Status: Ordered Start: 01-05-2020 take 2 tablets by [facility] every six hours acetaminophen (TYLENOL) 325 mg [...] qDay, # 90 tab(s), 3 Refill(s), Pharmacy: [facility] #[id number], 155, cm, 05/22/21 13:28:00 EDT, Height, kg, 05/22/21 13:28:00 EDT, Dosing Weight Start Date: 07/19/21 Status: Ordered apixaban 5 mg oral tablet (4 sources) Factor Xa Inhibitor Start: 05-26-2024 Eliquis 5 mg oral tablet Dose : 5 mg = 1 tab(s), Oral, BID, # 60 tab(s), 3 Refill(s), Pharmacy: [facility]/pharmacy #[id number], 155, cm, 05/26/24 14:11:00 EDT, Height, 56.7, kg, 05/26/24 14:11:00 EDT, Dosing Weight Start Date: 05/26/24 Status: Ordered Start: 04-30-2024 Eliquis 5 mg o ral tablet Dose : 5 mg = 1 tab(s), Oral, BID, # 60 tab(s), 0 Refill(s), Pharmacy: [facility]/pharmacy #[id number], 155, cm, 04/24/24 4:14:00 EDT, Height, 65.6, kg, 04/24/24 4:14:00 EDT, Dosing Weight Start Date: 04/30/24 Status: Ordered aspirin 81 mg chewable tablet (11 sources) Platelet Aggregation Inhibitor, Nonsteroidal Anti-inflammatory Drug Start: 03-11-2023 aspirin 81 mg oral tablet, chewable Dose : 81 mg = 1 tab(s), Oral, Daily, # 30 tab(s), 11 Refill(s), Pharmacy: [facility] #[id number], 155, cm, 03/11/23 8:04:00 EDT, Height Start Date: 03/11/23 Status: Ordered atorvastatin 40 mg oral tablet (20 sources) HMG-CoA Reductase Inhibitor Start: 01-05-2020 atorvastatin 40 mg oral tablet Dose : 40 mg = 1 tab(s), Oral, qHS, # 90 tab(s), 3 Refill(s), Pharmacy: [facility], 156, cm, 07/22/24 15:12:00 EDT, [...] 0 Refill(s), 03/05/24 5:01:00 PM EDT, Pharmacy: [facility]/pharmacy #[id number], Cough, 159, cm, 02/27/24 16:14:00 [...] qAM, # 180 tab(s), 0 Refill(s), [id number], Osteopenia Hypocalcemia, 156.21, cm, 08/10/20 8:55:00 EDT, Height, kg, 08/10/20 8:55:00 EDT, Dosing Weight Start Date: 08/10/20 Status: Ordered carvedilol 12.5 mg oral tablet (20 sources) alpha-Adrenergic Bandar, beta-Adrenergic Bandar Start: 07-23-2024 carvedilol 12.5 mg oral tablet Dose : 12.5 mg = 1 tab(s), Oral, BIDM, # 180 tab(s), 3 Refill(s), Pharmacy: [facility], 156, cm, 07/22/24 15:12:00 EDT, Height, kg, 07/22/24 15:12:00 EDT, Dosing Weight Start Date: 07/23/24 Status: Ordered Start: 04-21-2024 carvedilol 12. 5 mg oral tablet Dose : 12.5 mg = 1 tab(s), Oral, BIDM, # 60 tab(s), 0 Refill(s), Pharmacy: [facility]/pharmacy #[id number], 155, cm, 04/20/24 0:46:00 EDT, Height, kg, 04/20/24 0:46:00 EDT, Dosing Weight Start Date: 04/21/24 Status: Ordered Start: 04-27-2021 take 1 tablet by terence twice daily carvedilol 25 mg oral tablet 1 tab(s), Oral, BID, # 180 tab(s), 1 Refill(s), [id number], 157.5, cm, 12/09/23 14:45:00 EST, Height, kg, 12/09/23 14:45:00 EST, Dosing Weight Start Date: 01/31/24 Status: Ordered cefdinir 300 mg oral capsule (1 source) Cephalosporin Antibacterial Start: 04-30-2024 End: 05-14-2024 cefdinir 300 mg oral capsule Dose : 300 mg = 1 cap(s), Oral, q12h, X 14 day(s), # 28 cap(s), 0 Refill(s), 05/14/24 11:48:00 AM EDT, Pharmacy: [facility]/pharmacy #[id number], 155, cm, 04/24/24 4:14:00 EDT, [...] qDay, # 90 tab(s), 3 Refill(s), Pharmacy: [facility], 156, cm, 07/22/24 15:12:00 EDT, Height, kg, 07/22/24 15:12:00 EDT, Dosing Weight Start Date: 07/23/24 Status: Ordered Start: 04-24-2017 clopidogrel 75 mg oral tablet Dose : 75 mg = 1 tab(s), Oral, qDay, # 90 tab(s), 3 Refill(s), Pharmacy: [facility] #[id number], 162.6, cm, 03/03/24 16:53:00 EDT, Height, kg, [...] qDay, # 90 cap(s), 3 Refill(s), Pharmacy: [facility]/pharmacy #[id number], Depression, 162.6, cm, 03/03/24 16:53:00 [...] 0 Refill(s), 03/08/24 5:01:00 PM EDT, Pharmacy: [facility]/pharmacy #[id number], Acute rhinosinusitis Cough, 159, cm, [...] qDay, # 45 tab(s), 3 Refill(s), Pharmacy: [facility] #[id number], 157.5, cm, 12/09/23 14:45:00 EST, Height, kg, 12/09/23 14:45:00 EST, Dosing Weight Start Date: 01/02/24 Status: Ordered Start: 01-31-2022 losartan 100 m g oral tablet Dose : 100 mg = 1 tab(s), Oral, qDay, # 90 tab(s), 1 Refill(s), Pharmacy: [facility] #[id number], 155, cm, 12/06/22 15:28:00 EST, Height, kg, [...] pain, # 25 tab(s), 1 Refill(s), [id number] Start Date: 11/10/19 Status: Ordered oxyCODONE hydrochloride [...] Date: 07/22/24 Status: Ordered polyethylene glycol 3350 68744 mg powder for oral solution (10 sources) [...] qHS, # 90 tab(s), 3 Refill(s), Pharmacy: [facility]/pharmacy #[id number], Insomnia, 156, cm, 07/22/24 15:12:00 EDT, Height, kg, 07/22/24 15:12:00 EDT, Dosing Weight Start Date: 07/22/24 Stop Date: 07/17/25 Status: Ordered Start: 02-02-2023 End: 08-01-2023 traZODone 50 mg oral tablet Dose : 50 mg = 1 tab(s), Oral, qHS, # 90 tab(s), 3 Refill(s), Pharmacy: [facility] #[id number], Insomnia, 155, cm, 05/29/23 15:50:00 EDT, Height, kg, 05/29/23 15:50:00 EDT, Dosing Weight Start Date: 07/10/23 Status: Ordered Start: 10-27-2021 End: 04-25-2022 traZODone 50 mg oral tablet Dose : 50 mg = 1 tab(s), Oral, qHS, # 90 tab(s), 1 Refill(s), Pharmacy: [facility] #[id number], Insomnia, 157.5, cm, 08/08/21 10:36:00 EDT, Height, [...] Ordered Start: 04-18-2023 take 1 tablet by [facility] once daily verapamil 120 mg/12 hours oral tablet, extended release 1 tab(s), Oral, qDay, # 30 tab(s), 0 Refill(s), Pharmacy: [facility] #[id number], 155, cm, 03/28/23 13:14:00 EDT, Height, kg, 03/28/23 13:14:00 EDT, Dosing Weight Start Date: 04/18/23 Status: Ordered Start: 08-30-2022 take 1 tablet by terence every hour, then take 1 tablet by mouth once daily verapamil 120 mg/12 hours oral tablet, extended release Dose : 120 mg = 1 tab(s), Oral, qDay, # 30 tab(s), 4 Refill(s), [facility] #[id number], 157.5, cm, 08/30/22 13:23:00 EST, Height, kg, [...] using, # 16 gram(s), 0 Refill(s), Pharmacy: [facility]/pharmacy #[id number], Acute rhinosinusitis Bilateral serous otitis [...] nausea/vomiting, # 12 tab(s), 0 Refill(s), Pharmacy: [facility]/pharmacy #[id number], Nausea with vomiting, 159, cm, [...] Reports Accession: Collected Date/Time: Received Date/Time: Pathologist: [id number] 08/04/2024 12:09 EDT 08/05/2024 09:58 EDT MICHAEL [...] All parts labelled with patient name and [id number] Received in formalin labelled left femoral head [...] cm. Following decalcification. RS-1 Nolan Berg, Pathologists' Embedded Software Engineer (ASCP) Performed by NOLAN BERG MICROSCOPIC DESCRIPTION: The microscopic examination is performed, except in the case of Gross Only. Electronically Signed by Pathology Report verified by [facility] MICHAEL SKINNER Sign out Date: 08/06/2024 13:02 Performing Lab: [facility], [address] [place] [address] Pathology Dept Disclaimer If ancillary studies were utilized, the following Laboratory Developed Test (LDT) disclaimer will apply: Under CLIA requirements, [facility] is qualified to perform high complexity testing. For all ancillary stains, positive and negative controls stain appropriately. Performance characteristics of immunohistochemical and chromogenic in-situ hybridization tests have been determined by [facility]. These tests are used for clinical purposes, They should not be regarded as investigational or for research. Normal [facility] .Auto Diffon 08-05-2024 Basophil, Absolute 0.0 10 3/mcL Normal 0.0-0.2 [facility] Comment on above: Performed By: #### M RSAPCR #### [address] [address] Basophils/100 WBC (Bld) 0.4 % Normal 0.0-2.5 [facility] Comment on above: Performed By: #### M RSAPCR #### [address] [address] Eosinophil, Absolute 0.0 10 3/mcL Normal 0.0-0.7 [facility] Comment on above: Performed By: #### M RSAPCR #### [address] [address] Eosinophils/100 WBC (Bld) 0.0 % Normal 0.0-7.0 [facility] Comment on above: Performed By: #### M RSAPCR #### [address] [address] Lymphocyte, Absolute 0.8 10 3/mcL Low 0.9-4.3 [facility] Comment on above: Performed By: #### M RSAPCR #### [address] [address] Lymphocytes/100 WBC (Bld) 6.8 % Low 20.0-40.0 [facility] Comment on above: Performed By: #### M RSAPCR #### [address] [address] Monocyte, Absolute 0.6 10 3/mcL Normal 0.1-1.4 [facility] Comment on above: Performed By: #### M RSAPCR #### [address] [address] Monocytes/100 WBC (Bld) 5.3 % Normal 2.0-13.0 [facility] Comment on above: Performed By: #### M RSAPCR #### [address] [address] Neutrophils/100 WBC (Bld) 87.5 % High 50.0-75.0 [facility] Comment on above: Performed By: #### M RSAPCR #### [address] [address] .GFRon 08-05-2024 GFR 35 ml/min/1.73sqm Normal [facility] Comment on above: Result Comment: GFR Population [...] meters Performed By: #### M RSAPCR #### [address] [address] GFR Non- 29 ml/min/1.73sqm Normal [facility] Comment on above: Result Comment: GFR Population [...] meters Performed By: #### M RSAPCR #### [address] [address] .NEUABSon 08-05-2024 Neutrophil, Absolute 9.7 10 3/mcL High 2.3-8.1 [facility] Comment on above: Performed By: #### M RSAPCR #### [address] [address] BMPon 08-05-2024 BUN/Creatinine Ratio 17 ratio Normal 7-27 [facility] Comment on above: Performed By: #### M RSAPCR #### [address] [address] Calcium [Mass/Vol] 9.5 mg/dL Normal 8.4-10.2 [facility] Comment on above: Performed By: #### M RSAPCR #### [address] [address] Chloride [Moles/Vol] 101 mmol/L Normal 98-107 [facility] Comment on above: Performed By: #### M RSAPCR #### [address] [address] CO2 [Moles/Vol] 25 mmol/L Normal 23-31 [facility] Comment on above: Performed By: #### M RSAPCR #### [address] [address] Creatinine [Mass/Vol] 1.72 mg/dL High 0.55-1.02 [facility] Comment on above: Result Comment: Test ing performed on Siemens Dimension EXL analyzer using a modified kinetic Lona technique. Performed By: #### M RSAPCR #### [address] [address] Electrolyte Balance 11.0 mEq/L Normal 4.0-15.0 [facility] Comment on above: Performed By: #### M RSAPCR #### [address] [address] Glucose [Mass/Vol] 158 mg/dL High 83-110 [facility] Comment on above: Performed By: #### M RSAPCR #### [address] [address] Potassium [Moles/Vol] 4.9 mmol/L Normal 3.5-5.1 [facility] Comment on above: Performed By: #### M RSAPCR #### [address] [address] Sodium [Moles/Vol] 137 mmol/L Normal 136-145 [facility] Comment on above: Performed By: #### M RSAPCR #### [place] [id number] Urea nitrogen [Mass/Vol] 30 mg/dL High 7-18 [facility] Comment on above: Performed By: #### M RSAPCR #### [address] [address] CBCon 08-05-2024 Erythrocyte distribution width (RBC) [Ratio] 16.5 % High 11.5-15.5 [facility] Comment on above: Performed By: #### M RSAPCR #### [place] [id number] Hematocrit (Bld) [Volume fraction] 27.2 % Low 34.0-46.0 [facility] Comment on above: Performed By: #### M RSAPCR #### [place] [address] Hgb 8.9 G/dL Low 12.0-16.0 [facility] Comment on above: Performed By: #### M RSAPCR #### [place] [id number] MCH (RBC) [Entitic mass] 31.9 pg Normal 27.0-33.0 [facility] Comment on above: Performed By: #### M RSAPCR #### [place] [address] MCHC 32.8 G/dL Normal 32.0-36.0 [facility] Comment on above: Performed By: #### M RSAPCR #### [place] [id number] MCV (RBC) [Entitic vol] 97.1 fL Normal 80.0-99.0 [facility] Comment on above: Performed By: #### M RSAPCR #### [place] [id number] Platelet 205 10 3/mcL Normal 150-450 [facility] Comment on above: Performed By: #### M RSAPCR #### [address] [address] Platelet mean volume (Bld) [Entitic vol] 10.3 fL Normal 6.6-10.5 [facility] Comment on above: Performed By: #### M RSAPCR #### [address] [address] RBC 2.80 10 6/mcL Low 4.10-5.30 [facility] Comment on above: Performed By: #### M RSAPCR #### [address] [address] WBC 11.1 10 3/mcL High 4.5-10.8 [facility] Comment on above: Performed By: #### M RSAPCR #### [place] [address] LABORATORYOrdered By: SYSTEM SYSTEM on 08-05-2024 Basophils [...] 08-04-2024 ABO/Rh Interp Positive Invalid Interpretation Code [facility] Comment on above: Performed By: #### M RSAPCR #### [address] [address] ABS (Gel)on 08-04-2024 ABSC Interp (Gel) Negative Normal [facility] Comment on above: Performed By: #### M RSAPCR #### [address] [address] LABORATORYOrdered By: Komal Vega on 08-04-2024 ABO and Rh group Nom (Bld) Blood group A Rh(D) positive Invalid Interpretation Code AO BB Auto SS Blood group antibody screen Ql Negative ABSC (08/04/24 9:38 AM) Normal AO BB Auto SS XR FLUORO 1-2 HRS TECH TIMEo n 08-04-2024 XR FLUORO 1-2 HRS TECH TIME ORIGINAL Images acquired, not reported on this accession number. Normal [facility] XR HIP LEFT W/PELVIS 4 VIEWS on [...] Sign Date: 08/04/2024 1:20:15 PM Ordering Provider: MAGDE PEDRO Normal [facility] MRSAPCRon 07-15-2024 MRSA (PCR) Not detected Normal Not Detected [facility] Comment on above: Result Comment: [place] [id number] Performed By: #### M RSAPCR #### [place] [address] MRSA PCR Int Normal [facility] Comment on above: Result Comment: MRSA DNA [...] Below Performed By: #### M RSAPCR #### [place] [address] .Auto Diffon 07-14-2024 Basophil, Absolute 0.0 10 3/mcL Normal 0.0-0.2 [facility] Comment on above: Performed By: #### A LAW, ALB, CBC, BMP, ADIFF, GFR, ABOGEL, ABSGEL #### [address] [address] Basophils/100 WBC (Bld) 0.3 % Normal 0.0-2.5 [facility] Comment on above: Performed By: #### A LAW, ALB, CBC, BMP, ADIFF, GFR, ABOGEL, ABSGEL #### [address] [address] Eosinophil, Absolute 0.2 10 3/mcL Normal 0.0-0.7 [facility] Comment on above: Performed By: #### A LAW, ALB, CBC, BMP, ADIFF, GFR, ABOGEL, ABSGEL #### [address] [address] Eosinophils/100 WBC (Bld) 2.9 % Normal 0.0-7.0 [facility] Comment on above: Performed By: #### A LAW, ALB, CBC, BMP, ADIFF, GFR, ABOGEL, ABSGEL #### [address] [address] Lymphocyte, Absolute 1.5 10 3/mcL Normal 0.9-4.3 [facility] Comment on above: Performed By: #### A LAW, ALB, CBC, BMP, ADIFF, GFR, ABOGEL, ABSGEL #### [address] [address] Lymphocytes/100 WBC (Bld) 25.5 % Normal 20.0-40.0 [facility] Comment on above: Performed By: #### A LAW, ALB, CBC, BMP, ADIFF, GFR, ABOGEL, ABSGEL #### [address] [address] Monocyte, Absolute 0.6 10 3/mcL Normal 0.1-1.4 [facility] Comment on above: Performed By: #### A LAW, ALB, CBC, BMP, ADIFF, GFR, ABOGEL, ABSGEL #### [address] [address] Monocytes/100 WBC (Bld) 10.1 % Normal 2.0-13.0 [facility] Comment on above: Performed By: #### A LAW, ALB, CBC, BMP, ADIFF, GFR, ABOGEL, ABSGEL #### [address] [address] Neutrophils/100 WBC (Bld) 61.2 % Normal 50.0-75.0 [facility] Comment on above: Performed By: #### A LAW, ALB, CBC, BMP, ADIFF, GFR, ABOGEL, ABSGEL #### [address] [address] .GFRon 07-14-2024 GFR 51 ml/min/1.73sqm Normal [facility] Comment on above: Result Comment: GFR Population [...] CBC, BMP, ADIFF, GFR, ABOGEL, ABSGEL #### [place] [address] [place], [place] [address] GFR Non- 42 ml/min/1.73sqm Normal [facility] Comment on above: Result Comment: GFR Population [...] CBC, BMP, ADIFF, GFR, ABOGEL, ABSGEL #### [address] [address] .NEUABSon 07-14-2024 Neutrophil, Absolute 3.5 10 3/mcL Normal 2.3-8.1 [facility] Comment on above: Performed By: #### A LAW, ALB, CBC, BMP, ADIFF, GFR, ABOGEL, ABSGEL #### [address] [address] ABO/Rh (Gel)on 07-14-2024 ABO/Rh Interp Positive Invalid Interpretation Code [facility] Comment on above: Performed By: #### A LAW, ALB, CBC, BMP, ADIFF, GFR, ABOGEL, ABSGEL #### [address] [address] ABS (Gel)on 07-14-2024 ABSC Interp (Gel) Negative Normal [facility] Comment on above: Performed By: #### A LAW, ALB, CBC, BMP, ADIFF, GFR, ABOGEL, ABSGEL #### [address] [address] ALBon 07-14-2024 Albumin Level 3.8 G/dL Normal 3.4-4.8 [facility] Comment on above: Performed By: #### A LAW, ALB, CBC, BMP, ADIFF, GFR, ABOGEL, ABSGEL #### [address] [address] BMPon 07-14-2024 BUN/Creatinine Ratio 9 ratio Normal 7-27 [facility] Comment on above: Performed By: #### A LAW, ALB, CBC, BMP, ADIFF, GFR, ABOGEL, ABSGEL #### [address] [address] Calcium [Mass/Vol] 9.8 mg/dL Normal 8.4-10.2 [facility] Comment on above: Performed By: #### A LAW, ALB, CBC, BMP, ADIFF, GFR, ABOGEL, ABSGEL #### [address] [address] Chloride [Moles/Vol] 105 mmol/L Normal 98-107 [facility] Comment on above: Performed By: #### A LAW, ALB, CBC, BMP, ADIFF, GFR, ABOGEL, ABSGEL #### [address] [address] CO2 [Moles/Vol] 27 mmol/L Normal 23-31 [facility] Comment on above: Performed By: #### A LAW, ALB, CBC, BMP, ADIFF, GFR, ABOGEL, ABSGEL #### [address] [address] Creatinine [Mass/Vol] 1.26 mg/dL High 0.55-1.02 [facility] Comment on above: Result Comment: Test ing performed on Siemens Dimension EXL analyzer using a modified kinetic Lona technique. Performed By: #### A LAW, ALB, CBC, BMP, ADIFF, GFR, ABOGEL, ABSGEL #### [address] [address] Electrolyte Balance 7.0 mEq/L Normal 4.0-15.0 [facility] Comment on above: Performed By: #### A LAW, ALB, CBC, BMP, ADIFF, GFR, ABOGEL, ABSGEL #### [address] [address] Glucose [Mass/Vol] 85 mg/dL Normal 83-110 [facility] Comment on above: Performed By: #### A LAW, ALB, CBC, BMP, ADIFF, GFR, ABOGEL, ABSGEL #### [address] [address] Potassium [Moles/Vol] 4.4 mmol/L Normal 3.5-5.1 [facility] Comment on above: Performed By: #### A LAW, ALB, CBC, BMP, ADIFF, GFR, ABOGEL, ABSGEL #### [address] [address] Sodium [Moles/Vol] 139 mmol/L Normal 136-145 [facility] Comment on above: Performed By: #### A LAW, ALB, CBC, BMP, ADIFF, GFR, ABOGEL, ABSGEL #### [place] [id number] Urea nitrogen [Mass/Vol] 11 mg/dL Normal 7-18 [facility] Comment on above: Performed By: #### A LAW, ALB, CBC, BMP, ADIFF, GFR, ABOGEL, ABSGEL #### [place] [id number] [facility]Con 07-14-2024 Erythrocyte distribution width (RBC) [Ratio] 17.4 % High 11.5-15.5 [facility] Comment on above: Order Comment: Pre-A dmission Testing Performed By: #### A LAW, ALB, CBC, BMP, ADIFF, GFR, ABOGEL, ABSGEL #### [address] [id number] Hematocrit (Bld) [Volume fraction] 33.1 % Low 34.0-46.0 [facility] Comment on above: Order Comment: Pre-A dmission Testing Performed By: #### A LAW, ALB, CBC, BMP, ADIFF, GFR, ABOGEL, ABSGEL #### [address] [address] Hgb 11.0 G/dL Low 12.0-16.0 [facility] Comment on above: Order Comment: Pre-A dmission Testing Performed By: #### A LAW, ALB, CBC, BMP, ADIFF, GFR, ABOGEL, ABSGEL #### [address] [address] MCH (RBC) [Entitic mass] 31.7 pg Normal 27.0-33.0 [facility] Comment on above: Order Comment: Pre-A dmission Testing Performed By: #### A LAW, ALB, CBC, BMP, ADIFF, GFR, ABOGEL, ABSGEL #### [address] [address] MCHC 33.1 G/dL Normal 32.0-36.0 [facility] Comment on above: Order Comment: Pre-A dmission Testing Performed By: #### A LAW, ALB, CBC, BMP, ADIFF, GFR, ABOGEL, ABSGEL #### [address] [address] MCV (RBC) [Entitic vol] 95.7 fL Normal 80.0-99.0 [facility] Comment on above: Order Comment: Pre-A dmission Testing Performed By: #### A LAW, ALB, CBC, BMP, ADIFF, GFR, ABOGEL, ABSGEL #### [address] [address] Platelet 226 10 3/mcL Normal 150-450 [facility] Comment on above: Order Comment: Pre-A dmission Testing Performed By: #### A LAW, ALB, CBC, BMP, ADIFF, GFR, ABOGEL, ABSGEL #### [address] [address] Platelet mean volume (Bld) [Entitic vol] 10.1 fL Normal 6.6-10.5 [facility] Comment on above: Order Comment: Pre-A dmission Testing Performed By: #### A LAW, ALB, CBC, BMP, ADIFF, GFR, ABOGEL, ABSGEL #### [address] [address] RBC 3.46 10 6/mcL Low 4.10-5.30 [facility] Comment on above: Order Comment: Pre-A dmission Testing Performed By: #### A LAW, ALB, CBC, BMP, ADIFF, GFR, ABOGEL, ABSGEL #### [address] [address] WBC 5.8 10 3/mcL Normal 4.5-10.8 [facility] Comment on above: Order Comment: Pre-A dmission Testing Performed By: #### A LAW, ALB, CBC, BMP, ADIFF, GFR, ABOGEL, ABSGEL #### [place] [address] [place], [place] [address] LABORATORYOrdered By: Wilma Lawler on 07-14-2024 ABO [...] 06-25-2024 CNPN Telephone (HEMSTEPHANIE) -------- HERB VALDES ([id number]) 1955 F Date Time Provider Department 06/25/24 [...] not feel comfortable doing her surgery at [facility] so he recommended a referral to a [facility] orthopedic surgeon. We could refer her to see someone at [place] or [facility]. Soonest appointment would be best. [...] Pedro does not feel comfortable doing at [facility].JESSICA Kraus Stephanie 06/26/2024 11:17 AM Signed [...] call. Please call 's cell phone at [phone] when able tonight so Herb can still have surgery tomorrow. Maribeth Flores Tracy Olmedo LPN 08/03/2024 4:[address] Pedro would like to speak with you today concerning surgical clearance for tomorrow. cell number [phone] please call. JESSICA Serna Paul A, DO [...] [M87.052] Order(s):CONSULT TO ORTHOPAEDICS [9026] Order #: [id number]: 1 FUTURE Prescriptions as of 08/04/2024 - [...] 02/18/2007 SO (more content not included)... Normal [facility] BETA 2 GLYCOPROTEIN, IGGon 0 06-17-2024 Beta 2 glycoprotein 1 IgG IA Qn <9 Normal <20 [facility] Comment on above: Order Comment: Speci men Type: BLOOD SPECIMEN Ordering Facility: [facility] Address: [address] [place] [address] Result Comment: <20 SGU Negative 20-80 SGU Low Positive >80 SGU High Positive These results were obtained with the [employer] QUANTA Lite B2 GPI IgG ARNULFO. B2 GPI IgG values obtained with different manufacturers' assay methods may not be used interchangeably. The magnitude of the reported IgG levels cannot be correlated to an endpoint titer. Performed By: #### B ETAErnst, FREEDOMGISRA, JEAN, 5076-5 #### [facility] CLIA [id number] [address] [place] [address] [place] BETA 2 GLYCOPROTEIN, IGMon 0 06-17-2024 Beta 2 glycoprotein 1 IgM IA Qn 13 [facility] Normal <20 [facility] Comment on above: Order Comment: Asaf reyna Type: BLOOD SPECIMEN Ordering Facility: [facility] Address: [address] [place] [address] Result Comment: <20 [facility] Negative 20-80 [facility] [...] B ETA2M, BETA2G, CARDIRanjit, CARDI, 5076-5 #### [facility] CLIA [id number] [address] [place] [address] [place] CARDIOLIPIN IGG ABSon 2023 Cardiolipin IgG IA Qn (S) <9.0 Normal <15.0 [facility] Comment on above: Order Comment: Asaf reyna Type: BLOOD SPECIMEN Ordering Facility: [facility] Address: [address] [place] [address] Result Comment: <15 GPL Negative 15-20 GPL [...] B ETA2M, BETA2G, CARDIRanjit, CARDI, 5076-5 #### [facility] CLIA [id number] [address] [place] [address] [place] CARDIOLIPIN IGM ABSon 2023 Cardiolipin IgM IA Qn (S) 14.6 MPL High <12.5 [facility] Comment on above: Order Comment: Asaf reyna Type: BLOOD SPECIMEN Ordering Facility: [facility] Address: [address] [place] [address] Result Comment: <12. 5 MPL Negative 12.5-20 [...] B MASOOD NICHOLE CARDIM, CARDIG, 5076-5 #### [facility] CLIA [id number] [address] [place] [address] OF [facility] CNOVSPon 06-17-2024 CNOVSP Visit (SP) Office (HEMAWS) -------- HERB VALDES ([id number]) 1955 F Date Time Provider Department 06/17/24 [...] She was taken to the ED at [facility] on 04/19/2020 for 4 complaints of left [...] was then taken to the ED at [facility] that night. CTA of the chest on [...] interlobar septal thickening. She was transferred to [facility]. She was also diagnosed with E. coli bladder infection and septicemia, chronic kidney disease stage III, anemia and hyponatremia that resolved at the time of discharge. She self discontinued apixaban on May 27 or May 28 because she wants to have the hip replacement surgery. Seeing Dr. Maged Pedro at [facility]. Denies cough and shortness of breath presently. Was advised to use a walker but isn't. 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 Normal [facility] Cardiolipin IgA Ser IA-aCnco n 06-17-2024 Cardiolipin IgA IA Qn (S) <9.0 Normal <12.0 [facility] Comment on above: Order Comment: Speci men Type: BLOOD SPECIMEN Ordering Facility: [facility] Address: [address] [place] [address] Result Comment: <12 APL Negative 12-20 APL Indeterminate >20 APL Positive The following results were obtained with the [employer] QUANTA Lite GUI IgA III ARNULFO. Cardiolipin IgA values obtained with the different manufacturers' assay methods may not be used interchangeably. The magnitude of the reported IgA levels cannot be correlated to an endpoint titer. Performed By: #### B ETA2M, BETA2G, CARDIRanjit, CARDITara, 5076-5 #### [facility] CLIA [id number] [address] [place], [place] [address] [place] D dimer FEU PPP-mCncon 06-17 Fibrin D-dimer FEU (PPP) [Mass/Vol] 1260 ng/mL FEU High <500 [facility] Comment on above: Order Comment: Speci men Type: BLOOD SPECIMENOrdering Facility: [facility] Address: [address] [place] [address] Result Comment: Froz en Plasma Aliquot Performed By: #### 4 8065-7 ####[facility] LABCLIA [id number] [facility] [address] OF [facility] [id number] [address] OF [facility]#### 37489-3, 49928-7 ####[facility] [id number] [address] OF [facility] D-DIMEROrdered By: Lien herrera on 06-17-2024 Fibrin D-dimer FEU (PPP) [Mass/Vol] 1260 High [facility] Comment on above: Frozen Plasma Aliquo t Fibrin D-dimer FEU (PPP) [Ma ss/Vol]Ordered By: Lien Art on 06-17-2024 D Dimer Age-related Cutoff 700 ng/mL FEU [facility] Interpretation and review of laboratory results Abnormal [facility] 500 ng/mL FEU is the D Dimer [...] et al. [facility] Int Med 2016 165:253. [facility] Fibrin D-dimer FEU (PPP) [Ma ss/Vol]on 06-17-2024 D DIMER AGE-RELATED CUTOFF 700 ng/mL FEU Normal [facility] Comment on above: Order Comment: Speci men Type: BLOOD SPECIMENOrdering Facility: [facility] Address: [address] [place] [address] Performed By: #### 4 8065-7 ####[facility] LABCLIA [id number] [place] [id number] [place] [address] [place]#### 138[address]-6, 82567-6 ####[facility] [id number] [place] [address] [place] LUPUS PANELon 06-17-2024 aPTT Coag (Bld) [Time] 42.1 s Normal 30.2-43.0 [facility] Comment on above: Order Comment: Speci men Type: BLOOD SPECIMENOrdering Facility: [facility] Address: [address] [place] [address] Performed By: #### L UPPL ####[facility] LABCLIA [id number] [address] [place] aPTT Coag (Bld) [Time] 36.2 s Normal 31.5-38.3 [facility] Comment on above: Order Comment: Speci men Type: BLOOD SPECIMENOrdering Facility: [facility] Address: [address] [place] [address] Performed By: #### L UPPL ####[facility] LABIA [id number] [place] [id number] [place] aPTT Coag (Bld) [Time] 34.3 s Normal 24.0-35.1 [facility] Comment on above: Order Comment: Speci men Type: BLOOD SPECIMENOrdering Facility: [facility] Address: [address] [place] [address] Performed By: #### L UPPL ####[facility] LABCLIA [id number] [place] [address] [place] aPTT W excess hexagonal phase phospholipid Coag (PPP) [Time] 48.9 seconds Normal 34.0-51.8 [facility] Comment on above: Order Comment: Speci men Type: BLOOD SPECIMENOrdering Facility: [facility] Address: [address] [place] [address] Performed By: #### L UPPL ####[facility] LABCLIA [id number] [place] [address] [place] Coagulation factor X activated act Coag Qn (PPP) <0.10 Normal <0.10 [facility] Comment on above: Order Comment: Speci men Type: BLOOD SPECIMENOrdering Facility: [facility] Address: [address] [place] [address] Result Comment: This test was developed and its performance characteristics determined by [facility] [place] ([facility]). It has not been cleared or approved by the FDA. [facility] is regulated under CLIA as qualified to perform high-complexity testing. This test is used for clinical purposes. It should not be regarded as investigational or for research. Performed By: #### L UPPL ####[facility] LABCLIA [id number] [address] [place] Delta dRVVT Coag (PPP) [Time diff] 0.7 delta seconds Normal <7.1 [facility] Comment on above: Order Comment: Speci men Type: BLOOD SPECIMENOrdering Facility: [facility] Address: [address] [place] [address] Performed By: #### L UPPL ####[facility] [id number] [place] [address] [place] dRVVT Coag (PPP) [Time] 42.9 s Normal 32.0-45.7 [facility] Comment on above: Order Comment: Speci men Type: BLOOD SPECIMENOrdering Facility: [facility] Address: [address] [place] [address] Performed By: #### L UPPL ####[facility] [id number] [place] [address] [place] dRVVT factor substitution immediately after 1:2 addition of normal plasma Coag (PPP) [Time] 37.7 seconds Normal 32.0-45.7 [facility] Comment on above: Order Comment: Speci men Type: BLOOD SPECIMENOrdering Facility: [facility] Address: [address] [place] [address] Performed By: #### L UPPL ####[facility] [id number] [place] [address] [place] dRVVT W excess hexagonal phase phospholipid actual/normal Coag (PPP) [Relative time] 48.2 seconds High 34.2-47.9 [facility] Comment on above: Order Comment: Speci men Type: BLOOD SPECIMENOrdering Facility: [facility] Address: [address] [place] [address] Performed By: #### L UPPL ####[facility] [id number] [place] [address] [place] dRVVT/dRVVT.excess phospholipid Coag (PPP) [Ratio] 1.10 Normal <1.32 [facility] Comment on above: Order Comment: Speci men Type: BLOOD SPECIMENOrdering Facility: [facility] Address: [address] [place] [address] Performed By: #### L UPPL ####[facility] [id number] [place] [address] [place] PLATELET NEUT 0.0 Seconds Normal <1.9 [facility] Comment on above: Order Comment: Asaf reyna Type: BLOOD SPECIMENOrdering Facility: [facility] Address: [address] [place] [address] Performed By: #### L UPPL ####[facility] LABCLIA [id number] [address] [place] Thrombin time Coag (PPP) [Time] 17.8 seconds Normal <18.6 [facility] Comment on above: Order Comment: Asaf reyna Type: BLOOD SPECIMENOrdering Facility: [facility] Address: [address] [place] [address] Performed By: #### L UPPL ####[facility] LABCLIA [id number] [address] [place] PT panel Coag (PPP)on 2023 INR Coag (PPP) [Relative time] 1.0 {INR} Normal 0.9-1.3 [facility] Comment on above: Order Comment: Asaf reyna Type: BLOOD SPECIMEN Ordering Facility: [facility] Address: [address] [place] [address] Result Comment: Adri min K Antagonist (VKA) Therapeutic Range: INR 2 to 3 (Target INR of 2.5) Note: For patients treated with VKA drugs, such as warfarin, the [employer] [employer] 2012 Guideline recommends [...] Chest 2012, 141:7S-47S Huseyin RA, et al. [facility] 2017, 70: 252-289 Performed By: #### 4 8065-7 #### [facility] CLIA [id number] [address] [place] [address] [place] [facility] CLIA [id number] [address] [place] [address] [place] #### 97979-2, 66748-7 #### [facility] CLIA [id number] [address] [place] [address] [place] PT Coag (PPP) [Time] 10.5 s Normal <13.1 [facility] Comment on above: Order Comment: Speci men Type: BLOOD SPECIMEN Ordering Facility: [facility] Address: [address] [place] [address] Performed By: #### 4 8065-7 #### [facility] CLIA [id number] [address] [place] [address] [place] [facility] CLIA [id number] [address] [place] [address] [place] #### 86549-7, 57614-7 #### [facility] CLIA [id number] [address] [place] [address] [place] aPTT PPPon 06-17-2024 aPTT Coag (PPP) [Time] 26.8 s Normal 23.0-32.4 [facility] Comment on above: Order Comment: Speci men Type: BLOOD SPECIMEN Ordering Facility: [facility] Address: [address] [place] [address] Performed By: #### 4 8065-7 #### [facility] CLIA [id number] [address] [place] [address] [place] [facility] CLIA [id number] [address] [place] [address] #### 46956-6, 29259-8 #### [facility] CLIA [id number] [address] [place] [address] NM MYOCARDIAL SPECT STRESS/R ESTon 06-02-2024 NM [...] Date: 06/02/2024 12:32:18 PM Ordering Provider:Velma Francisco [facility] ([place]) No Panel Informationon 05-16 Culture Urine 10,000 - 50,000 cfu/ ml Mixed growth consistent with normal urogenital katelynn. [facility] .Auto Diffon 04-30-2024 Basophil, Absolute 0.1 10 3/mcL Normal 0.0-0.3 [facility] ([place]) Comment on above: Performed By: #### C BC, BMP, ADIFF, ANEU, GFR ####[address] [address] Basophils/100 WBC (Bld) 0.6 % Normal 0.0-2.5 [facility] ([place]) Comment on above: Performed By: #### C BC, BMP, ADIFF, ANEU, GFR ####[address] [address] Eosinophil, Absolute 0.0 10 3/mcL Normal 0.0-0.7 [facility] ([place]) Comment on above: Performed By: #### C BC, BMP, ADIFF, ANEU, GFR ####[address] [address] Eosinophils/100 WBC (Bld) 0.2 % Normal 0.0-6.0 [facility] ([place]) Comment on above: Performed By: #### C BC, BMP, ADIFF, ANEU, GFR ####[address] [address] Lymphocyte, Absolute 1.4 10 3/mcL Normal 0.9-4.3 [facility] ([place]) Comment on above: Performed By: #### C BC, BMP, ADIFF, ANEU, GFR ####[address] [address] Lymphocytes/100 WBC (Bld) 9.1 % Low 20.0-40.0 [facility] ([place]) Comment on above: Performed By: #### C BC, BMP, ADIFF, ANEU, GFR ####[address] [address] Monocyte, Absolute 0.6 10 3/mcL Normal 0.1-1.4 [facility] ([place]) Comment on above: Performed By: #### C BC, BMP, ADIFF, ANEU, GFR ####[address] [address] Monocytes/100 WBC (Bld) 4.3 % Normal 2.0-13.0 [facility] ([place]) Comment on above: Performed By: #### C BC, BMP, ADIFF, ANEU, GFR ####[address] [address] Neutrophils/100 WBC (Bld) 85.8 % High 50.0-75.0 [facility] ([place]) Comment on above: Performed By: #### C BC, BMP, ADIFF, ANEU, GFR ####[address] [address] .CRYBF Path Reviewon 024 CRYPF Path Review Negative Normal [facility] ([place]) Comment on above: Result Comment: Elec tronically signed by: MICHAEL SKINNER 04.30.2024 13:49 EDT Performed By: #### C RYBFPR, CRYBF, SYNCT ####[place] [address] .GFRon 04-30-2024 GFR >60 Normal [facility] ([place]) Comment on above: Result Comment: GFR Population [...] #### C BC, BMP, ADIFF, ANEU, GFR ####[address] [address] GFR Non- >60 Normal [facility] ([place]) Comment on above: Result Comment: GFR Population [...] #### C BC, BMP, ADIFF, ANEU, GFR ####[address] [address] .NEUABSon 04-30-2024 Neutrophil, Absolute 12.9 10 3/mcL High 2.3-8.1 A [facility] ([place]) Comment on above: Performed By: #### C BC, BMP, ADIFF, ANEU, GFR ####[place] [address] BMPon 04-30-2024 BUN/Creatinine Ratio 10.0 ratio Normal 10.0-22.0 [facility] ([place]) Comment on above: Performed By: #### C BC, BMP, ADIFF, ANEU, GFR ####[place] [address] Calcium [Mass/Vol] 8.5 mg/dL Low 8.7-10.4 [facility] ([place]) Comment on above: Performed By: #### C BC, BMP, ADIFF, ANEU, GFR ####[place] [address] Chloride [Moles/Vol] 100 mmol/L Normal 98-110 [facility] ([place]) Comment on above: Performed By: #### C BC, BMP, ADIFF, ANEU, GFR ####[place] [address] CO2 [Moles/Vol] 27 mmol/L Normal 22-32 [facility] ([place]) Comment on above: Performed By: #### C BC, BMP, ADIFF, ANEU, GFR ####[place] [address] Creatinine [Mass/Vol] 0.70 mg/dL Normal 0.50-1.20 [facility] ([place]) Comment on above: Performed By: #### C BC, BMP, ADIFF, ANEU, GFR ####[place] [address] Electrolyte Balance 12.0 mEq/L Normal 4.0-15.0 [facility] ([place]) Comment on above: Performed By: #### C BC, BMP, ADIFF, ANEU, GFR ####[place] [address] Glucose [Mass/Vol] 157 mg/dL High 82-115 [facility] ([place]) Comment on above: Performed By: #### C BC, BMP, ADIFF, ANEU, GFR ####[place] [address] Potassium [Moles/Vol] 3.6 mmol/L Normal 3.5-5.0 [facility] ([place]) Comment on above: Performed By: #### C BC, BMP, ADIFF, ANEU, GFR ####[place] [address] Sodium [Moles/Vol] 139 mmol/L Normal 136-145 [facility] ([place]) Comment on above: Performed By: #### C BC, BMP, ADIFF, ANEU, GFR ####[place] [address] Urea nitrogen [Mass/Vol] 7.0 mg/dL Low 8.0-22.0 [facility] ([place]) Comment on above: Performed By: #### C BC, BMP, ADIFF, ANEU, GFR ####[place] [address] CBCon 04-30-2024 Erythrocyte distribution width (RBC) [Ratio] 17.9 % High 11.5-15.5 [facility] ([place]) Comment on above: Performed By: #### C BC, BMP, ADIFF, ANEU, GFR ####[place] [address] Hematocrit (Bld) [Volume fraction] 32.8 % Low 34.0-46.0 [facility] ([place]) Comment on above: Performed By: #### C BC, BMP, ADIFF, ANEU, GFR ####[place] [address] Hgb 10.9 G/dL Low 12.0-16.0 [facility] ([place]) Comment on above: Performed By: #### C BC, BMP, ADIFF, ANEU, GFR ####[place] [address] MCH (RBC) [Entitic mass] 31.3 pg Normal 27.0-33.0 [facility] ([place]) Comment on above: Performed By: #### C BC, BMP, ADIFF, ANEU, GFR ####[place] [address] MCHC 33.2 G/dL Normal 32.0-36.0 [facility] ([place]) Comment on above: Performed By: #### C BC, BMP, ADIFF, ANEU, GFR ####[place] [address] MCV (RBC) [Entitic vol] 94.3 fL Normal 80.0-99.0 [facility] ([place]) Comment on above: Performed By: #### C BC, BMP, ADIFF, ANEU, GFR ####[place] [address] Platelet 353 10 3/mcL Normal 150-450 [facility] ([place]) Comment on above: Performed By: #### C BC, BMP, ADIFF, ANEU, GFR ####[place] [address] Platelet mean volume (Bld) [Entitic vol] 9.1 fL Normal 6.6-10.5 [facility] ([place]) Comment on above: Performed By: #### C BC, BMP, ADIFF, ANEU, GFR ####[place] [address] RBC 3.48 10 6/mcL Low 4.10-5.30 [facility] ([place]) Comment on above: Performed By: #### C BC, BMP, ADIFF, ANEU, GFR ####[place] [address] WBC 15.0 10 3/mcL High 4.5-10.8 [facility] ([place]) Comment on above: Performed By: #### C BC, BMP, ADIFF, ANEU, GFR ####[place] [address] LABORATORYOrdered By: SYSTEM SYSTEM on 04-30-2024 Basophils [...] Workflow SS .GFRon 04-29-2024 GFR >60 Normal [facility] ([place]) Comment on above: Result Comment: GFR Population [...] H FP, BMP, MORPH, CBC, DIFF, GFR ####[place] [address] GFR Non- >60 Normal [facility] ([place]) Comment on above: Result Comment: GFR Population [...] H FP, BMP, MORPH, CBC, DIFF, GFR ####[address] [address] .Manual Diffon 04-29-2024 Bands 2.0 % Normal 0.0-5.0 [facility] ([place]) Comment on above: Performed By: #### H FP, BMP, MORPH, CBC, DIFF, GFR ####[place] [address] Basophil %, Manual 0.0 % Normal 0.0-2.5 [facility] ([place]) Comment on above: Performed By: #### H FP, BMP, MORPH, CBC, DIFF, GFR ####[place] [address] Basophil, Abs Manual 0.0 10 3/mcL Normal 0.0-0.3 [facility] ([place]) Comment on above: Performed By: #### H FP, BMP, MORPH, CBC, DIFF, GFR ####[place] [address] Eosinophil %, Manual 2.0 % Normal 0.0-6.0 [facility] ([place]) Comment on above: Performed By: #### H FP, BMP, MORPH, CBC, DIFF, GFR ####[place] [address] Eosinophil, Abs Manual 0.3 10 3/mcL Normal 0.0-0.7 [facility] ([place]) Comment on above: Performed By: #### H FP, BMP, MORPH, CBC, DIFF, GFR ####[place] [address] Lymphocyte %, Manual 5.0 % Low 20.0-40.0 [facility] ([place]) Comment on above: Performed By: #### H FP, BMP, MORPH, CBC, DIFF, GFR ####[address] [address] Lymphocyte, Abs Manual 0.9 10 3/mcL Normal 0.9-4.3 [facility] ([place]) Comment on above: Performed By: #### H FP, BMP, MORPH, CBC, DIFF, GFR ####[place] [address] Monocyte %, Manual 4.0 % Normal 2.0-13.0 [facility] ([place]) Comment on above: Performed By: #### H FP, BMP, MORPH, CBC, DIFF, GFR ####[place] [address] Monocyte, Abs Manual 0.7 10 3/mcL Normal 0.1-1.4 [facility] ([place]) Comment on above: Performed By: #### H FP, BMP, MORPH, CBC, DIFF, GFR ####[address] [address] Myelocyte 1.0 % Normal [facility] ([place]) Comment on above: Performed By: #### H FP, BMP, MORPH, CBC, DIFF, GFR ####[address] [address] Neutrophil %, Manual 86.0 % High 50.0-75.0 [facility] ([place]) Comment on above: Performed By: #### H FP, BMP, MORPH, CBC, DIFF, GFR ####[address] [address] Neutrophil, Abs Manual 15.5 10 3/mcL High 2.3-8.1 [facility] ([place]) Comment on above: Performed By: #### H FP, BMP, MORPH, CBC, DIFF, GFR ####[address] [address] Nucleated RBC 0.0 /100 WBC Normal [facility] ([place]) Comment on above: Performed By: #### H FP, BMP, MORPH, CBC, DIFF, GFR ####[place] [address] .Morphon 04-29-2024 Anisocytosis Ql (Bld) 1+ Normal [facility] ([place]) Comment on above: Performed By: #### H FP, BMP, MORPH, CBC, DIFF, GFR ####[place] [address] Large Platelets Few Normal [facility] ([place]) Comment on above: Performed By: #### H FP, BMP, MORPH, CBC, DIFF, GFR ####[place] [address] Ovalocytes 1+ Normal [facility] ([place]) Comment on above: Performed By: #### H FP, BMP, MORPH, CBC, DIFF, GFR ####[place] [address] Platelet Estimate Normal Normal [facility] ([place]) Comment on above: Performed By: #### H FP, BMP, MORPH, CBC, DIFF, GFR ####[place] [address] Poik 1+ Normal [facility] ([place]) Comment on above: Performed By: #### H FP, BMP, MORPH, CBC, DIFF, GFR ####[place] [address] Polychrom 1+ Normal [facility] ([place]) Comment on above: Performed By: #### H FP, BMP, MORPH, CBC, DIFF, GFR ####[place] [address] Tear Cell 1+ Normal [facility] ([place]) Comment on above: Performed By: #### H FP, BMP, MORPH, CBC, DIFF, GFR ####[place] [address] Toxic Gran 1+ [facility] ([place]) Comment on above: Performed By: #### H FP, BMP, MORPH, CBC, DIFF, GFR ####[place] [address] BMPon 04-29-2024 BUN/Creatinine Ratio 10.5 ratio Normal 10.0-22.0 [facility] ([place]) Comment on above: Performed By: #### H FP, BMP, MORPH, CBC, DIFF, GFR ####[address] [address] Calcium [Mass/Vol] 8.3 mg/dL Low 8.7-10.4 [facility] ([place]) Comment on above: Performed By: #### H FP, BMP, MORPH, CBC, DIFF, GFR ####[place] [address] Chloride [Moles/Vol] 108 mmol/L Normal 98-110 [facility] ([place]) Comment on above: Performed By: #### H FP, BMP, MORPH, CBC, DIFF, GFR ####[place] [address] CO2 [Moles/Vol] 27 mmol/L Normal 22-32 [facility] ([place]) Comment on above: Performed By: #### H FP, BMP, MORPH, CBC, DIFF, GFR ####[place] [address] Creatinine [Mass/Vol] 0.86 mg/dL Normal 0.50-1.20 [facility] ([place]) Comment on above: Performed By: #### H FP, BMP, MORPH, CBC, DIFF, GFR ####[address] [address] Electrolyte Balance 6.0 mEq/L Normal 4.0-15.0 [facility] ([place]) Comment on above: Performed By: #### H FP, BMP, MORPH, CBC, DIFF, GFR ####[address] [address] Glucose [Mass/Vol] 92 mg/dL Normal 82-115 [facility] ([place]) Comment on above: Performed By: #### H FP, BMP, MORPH, CBC, DIFF, GFR ####[place] [address] Potassium [Moles/Vol] 3.5 mmol/L Normal 3.5-5.0 [facility] ([place]) Comment on above: Performed By: #### H FP, BMP, MORPH, CBC, DIFF, GFR ####[place] [address] Sodium [Moles/Vol] 141 mmol/L Normal 136-145 [facility] ([place]) Comment on above: Performed By: #### H FP, BMP, MORPH, CBC, DIFF, GFR ####[place] [address] Urea nitrogen [Mass/Vol] 9.0 mg/dL Normal 8.0-22.0 [facility] ([place]) Comment on above: Performed By: #### H FP, BMP, MORPH, CBC, DIFF, GFR ####[place] [address] CBCon 04-29-2024 Erythrocyte distribution width (RBC) [Ratio] 17.3 % High 11.5-15.5 [facility] ([place]) Comment on above: Performed By: #### H FP, BMP, MORPH, CBC, DIFF, GFR ####[place] [address] Hematocrit (Bld) [Volume fraction] 30.6 % Low 34.0-46.0 [facility] ([place]) Comment on above: Performed By: #### H FP, BMP, MORPH, CBC, DIFF, GFR ####[place] [address] Hgb 10.2 G/dL Low 12.0-16.0 [facility] ([place]) Comment on above: Performed By: #### H FP, BMP, MORPH, CBC, DIFF, GFR ####[place] [address] MCH (RBC) [Entitic mass] 31.5 pg Normal 27.0-33.0 [facility] ([place]) Comment on above: Performed By: #### H FP, BMP, MORPH, CBC, DIFF, GFR ####[place] [address] MCHC 33.3 G/dL Normal 32.0-36.0 [facility] ([place]) Comment on above: Performed By: #### H FP, BMP, MORPH, CBC, DIFF, GFR ####[place] [address] MCV (RBC) [Entitic vol] 94.7 fL Normal 80.0-99.0 [facility] ([place]) Comment on above: Performed By: #### H FP, BMP, MORPH, CBC, DIFF, GFR ####[place] [address] Platelet 337 10 3/mcL Normal 150-450 [facility] ([place]) Comment on above: Performed By: #### H FP, BMP, MORPH, CBC, DIFF, GFR ####[place] [address] Platelet mean volume (Bld) [Entitic vol] 9.0 fL Normal 6.6-10.5 [facility] ([place]) Comment on above: Performed By: #### H FP, BMP, MORPH, CBC, DIFF, GFR ####[place] [address] RBC 3.23 10 6/mcL Low 4.10-5.30 [facility] ([place]) Comment on above: Performed By: #### H FP, BMP, MORPH, CBC, DIFF, GFR ####[place] [address] WBC 17.7 10 3/mcL High 4.5-10.8 [facility] ([place]) Comment on above: Performed By: #### H FP, BMP, MORPH, CBC, DIFF, GFR ####[place] [address] CRYBFon 04-29-2024 Crystal BF Sp Synovial fluid Normal [facility] ([place]) Comment on above: Order Comment: Left hip synovial fluid IR aspiration Performed By: #### C RYBFPR, CRYBF, SYNCT ####[place] [address] HFPon 04-29-2024 Bili Indirect 0.2 mg/dL Normal 0.1-10.0 [facility] ([place]) Comment on above: Performed By: #### H FP, BMP, MORPH, CBC, DIFF, GFR ####[place] [address] Albumin Level 2.1 G/dL Low 3.2-4.8 [facility] ([place]) Comment on above: Performed By: #### H FP, BMP, MORPH, CBC, DIFF, GFR ####[address] [address] Albumin/Globulin [Mass ratio] 0.6 {ratio} Low 0.9-1.6 [facility] ([place]) Comment on above: Performed By: #### H FP, BMP, MORPH, CBC, DIFF, GFR ####[place] [address] ALP [Catalytic activity/Vol] 276 U/L High 38-126 [facility] ([place]) Comment on above: Performed By: #### H FP, BMP, MORPH, CBC, DIFF, GFR ####[place] [address] ALT [Catalytic activity/Vol] 110 U/L High 10-49 [facility] ([place]) Comment on above: Performed By: #### H FP, BMP, MORPH, CBC, DIFF, GFR ####[place] [address] AST [Catalytic activity/Vol] 74 U/L High 8-34 [facility] ([place]) Comment on above: Performed By: #### H FP, BMP, MORPH, CBC, DIFF, GFR ####[place] [address] Bili Direct 0.2 mg/dL Normal 0.0-0.4 [facility] ([place]) Comment on above: Result Comment: Use of this assay is not recommended for patients undergoing treatment with eltrombopag due to the potential for falsely elevated results. Performed By: #### H FP, BMP, MORPH, CBC, DIFF, GFR ####[place] [address] Bili Total 0.40 mg/dL Normal 0.20-1.20 [facility] ([place]) Comment on above: Result Comment: Use of this assay is not recommended for patients undergoing treatment with eltrombopag due to the potential for falsely elevated results. Performed By: #### H FP, BMP, MORPH, CBC, DIFF, GFR ####[facility] [place] [address] Globulin 3.6 G/dL Normal 1.5-3.8 [facility] ([place]) Comment on above: Performed By: #### H FP, BMP, MORPH, CBC, DIFF, GFR ####[place] [address] [address] [place] [address] Total Protein 5.7 G/dL Normal 5.7-8.2 [facility] ([place]) Comment on above: Result Comment: No te - New Reference Range in effect 20 Performed By: #### H FP, BMP, MORPH, CBC, DIFF, GFR ####[place] [address] [address] [place] [address] LABORATORYOrdered By: Tracy Champion on 04-29-2024 Appearance [...] (S/P/Bld) [Vol rate/Area] ml/min/1.73sqm Invalid Interpretation Code [employer] S Comment on above: Interpretive Data: [...] (S/P/Bld) [Vol rate/Area] ml/min/1.73sqm Invalid Interpretation Code [employer] S Comment on above: Interpretive Data: [...] Culture Body Fluid No growth to date [facility] GS Unsedimented No organisms seen. [facility] SYNCTon 04-29-2024 Cells Counted (synovial) 100 Normal [facility] ([place]) Comment on above: Order Comment: Left hip synovial fluid IR aspiration Performed By: #### C MANUEL CRYBF, SYNCT ####[facility] [place] [address] Lymphocytes/100 WBC (Bld) 14 % Normal [facility] ([place]) Comment on above: Order Comment: Left hip synovial fluid IR aspiration Performed By: #### C MANUEL, CRYBF, SYNCT ####[address] [address] Mononuclear Cell % (synovial) 10 % Normal [facility] ([place]) Comment on above: Order Comment: Left hip synovial fluid IR aspiration Performed By: #### C RYBFPR, CRYBF, SYNCT ####[address] [address] Neutrophils/100 WBC (Bld) 75 % High 0-24 [facility] ([place]) Comment on above: Order Comment: Left hip synovial fluid IR aspiration Performed By: #### C RYBFPR, CRYBF, SYNCT ####[address] [address] Synovial Lining Cell (synovial) 1 % Normal [facility] ([place]) Comment on above: Order Comment: Left hip synovial fluid IR aspiration Performed By: #### C RYBFPR, CRYBF, SYNCT ####[address] [address] Clarity (U) Cloudy Normal [facility] ([place]) Comment on above: Order Comment: Left hip synovial fluid IR aspiration Performed By: #### C RYBFPR, CRYBF, SYNCT ####[address] [address] Color (U) Colorless Normal [facility] ([place]) Comment on above: Order Comment: Left hip synovial fluid IR aspiration Performed By: #### C RYBFPR, CRYBF, SYNCT ####[address] [address] Comment (synovial) See Below Normal [facility] ([place]) Comment on above: Order Comment: Left hip synovial fluid IR aspiration Result Comment: Cell count is approximate due to debris and/or cell clumps seen. Performed By: #### C RYBFPR, CRYBF, SYNCT ####[address] [address] White Blood Cells (synovial) 270 /mm3 High 0-199 [facility] ([place]) Comment on above: Order Comment: Left hip synovial fluid IR aspiration Performed By: #### C RYBFPR, CRYBF, SYNCT ####[address] [address] .GFRon 04-28-2024 GFR >60 Normal [facility] ([place]) Comment on above: Result Comment: GFR Population [...] #### B MP, DIFF, CBC, GFR, MORPH ####[address] [address] GFR Non- 60 ml/min/1.73sqm Normal [facility] ([place]) Comment on above: Result Comment: GFR Population [...] #### B MP, DIFF, CBC, GFR, MORPH ####[address] [address] .Manual Diffon 04-28-2024 Basophil %, Manual 0.0 % Normal 0.0-2.5 [facility] ([place]) Comment on above: Performed By: #### B MP, DIFF, CBC, GFR, MORPH ####[address] [address] Basophil, Abs Manual 0.0 10 3/mcL Normal 0.0-0.3 [facility] ([place]) Comment on above: Performed By: #### B MP, DIFF, CBC, GFR, MORPH ####[address] [address] Eosinophil %, Manual 1.0 % Normal 0.0-6.0 [facility] ([place]) Comment on above: Performed By: #### B MP, DIFF, CBC, GFR, MORPH ####[address] [address] Eosinophil, Abs Manual 0.2 10 3/mcL Normal 0.0-0.7 [facility] ([place]) Comment on above: Performed By: #### B MP, DIFF, CBC, GFR, MORPH ####[address] [address] Lymphocyte %, Manual 8.0 % Low 20.0-40.0 [facility] ([place]) Comment on above: Performed By: #### B MP, DIFF, CBC, GFR, MORPH ####[address] [address] Lymphocyte, Abs Manual 1.5 10 3/mcL Normal 0.9-4.3 [facility] ([place]) Comment on above: Performed By: #### B MP, DIFF, CBC, GFR, MORPH ####[address] [address] Monocyte %, Manual 4.0 % Normal 2.0-13.0 [facility] ([place]) Comment on above: Performed By: #### B MP, DIFF, CBC, GFR, MORPH ####[address] [address] Monocyte, Abs Manual 0.8 10 3/mcL Normal 0.1-1.4 [facility] ([place]) Comment on above: Performed By: #### B MP, DIFF, CBC, GFR, MORPH ####[address] [address] Myelocyte 2.0 % Normal [facility] ([place]) Comment on above: Performed By: #### B MP, DIFF, CBC, GFR, MORPH ####[place] [address] Neutrophil %, Manual 85.0 % High 50.0-75.0 [facility] ([place]) Comment on above: Performed By: #### B MP, DIFF, CBC, GFR, MORPH ####[place] [address] Neutrophil, Abs Manual 16.4 10 3/mcL High 2.3-8.1 [facility] ([place]) Comment on above: Performed By: #### B MP, DIFF, CBC, GFR, MORPH ####[place] [address] Nucleated RBC 1.0 /100 WBC Normal [facility] ([place]) Comment on above: Performed By: #### B MP, DIFF, CBC, GFR, MORPH ####[place] [address] .Morphon 04-28-2024 Anisocytosis Ql (Bld) 1+ Normal [facility] ([place]) Comment on above: Performed By: #### B MP, DIFF, CBC, GFR, MORPH ####[place] [address] Hypochrom 1+ Normal [facility] ([place]) Comment on above: Performed By: #### B MP, DIFF, CBC, GFR, MORPH ####[place] [address] Ovalocytes 1+ Normal [facility] ([place]) Comment on above: Performed By: #### B MP, DIFF, CBC, GFR, MORPH ####[place] [address] Platelet Estimate Normal Normal [facility] ([place]) Comment on above: Performed By: #### B MP, DIFF, CBC, GFR, MORPH ####[place] [address] Poik 1+ Normal [facility] ([place]) Comment on above: Performed By: #### B MP, DIFF, CBC, GFR, MORPH ####[place] [address] Polychrom 1+ Normal [facility] ([place]) Comment on above: Performed By: #### B MP, DIFF, CBC, GFR, MORPH ####[place] [address] BMPon 04-28-2024 BUN/Creatinine Ratio 10.8 ratio Normal 10.0-22.0 [facility] ([place]) Comment on above: Performed By: #### B MP, DIFF, CBC, GFR, MORPH ####[place] [address] Calcium [Mass/Vol] 8.2 mg/dL Low 8.7-10.4 [facility] ([place]) Comment on above: Performed By: #### B MP, DIFF, CBC, GFR, MORPH ####[place] [address] Chloride [Moles/Vol] 109 mmol/L Normal 98-110 [facility] ([place]) Comment on above: Performed By: #### B MP, DIFF, CBC, GFR, MORPH ####[place] [address] CO2 [Moles/Vol] 24 mmol/L Normal 22-32 [facility] ([place]) Comment on above: Performed By: #### B MP, DIFF, CBC, GFR, MORPH ####[place] [address] Creatinine [Mass/Vol] 0.93 mg/dL Normal 0.50-1.20 [facility] ([place]) Comment on above: Performed By: #### B MP, DIFF, CBC, GFR, MORPH ####[place] [address] Electrolyte Balance 8.0 mEq/L Normal 4.0-15.0 [facility] ([place]) Comment on above: Performed By: #### B MP, DIFF, CBC, GFR, MORPH ####[place] [address] Glucose [Mass/Vol] 75 mg/dL Low 82-115 [facility] ([place]) Comment on above: Performed By: #### B MP, DIFF, CBC, GFR, MORPH ####[address] [address] Potassium [Moles/Vol] 3.6 mmol/L Normal 3.5-5.0 [facility] ([place]) Comment on above: Performed By: #### B MP, DIFF, CBC, GFR, MORPH ####[address] [address] Sodium [Moles/Vol] 141 mmol/L Normal 136-145 [facility] ([place]) Comment on above: Performed By: #### B MP, DIFF, CBC, GFR, MORPH ####[place] [address] Urea nitrogen [Mass/Vol] 10.0 mg/dL Normal 8.0-22.0 [facility] ([place]) Comment on above: Performed By: #### B MP, DIFF, CBC, GFR, MORPH ####[place] [address] CBCon 04-28-2024 Erythrocyte distribution width (RBC) [Ratio] 17.6 % High 11.5-15.5 [facility] ([place]) Comment on above: Performed By: #### B MP, DIFF, CBC, GFR, MORPH ####[place] [address] Hematocrit (Bld) [Volume fraction] 27.2 % Low 34.0-46.0 [facility] ([place]) Comment on above: Performed By: #### B MP, DIFF, CBC, GFR, MORPH ####[place] [address] Hgb 9.2 G/dL Low 12.0-16.0 [facility] ([place]) Comment on above: Performed By: #### B MP, DIFF, CBC, GFR, MORPH ####[place] [address] MCH (RBC) [Entitic mass] 32.2 pg Normal 27.0-33.0 [facility] ([place]) Comment on above: Performed By: #### B MP, DIFF, CBC, GFR, MORPH ####[place] [address] MCHC 33.9 G/dL Normal 32.0-36.0 [facility] ([place]) Comment on above: Performed By: #### B MP, DIFF, CBC, GFR, MORPH ####[place] [address] MCV (RBC) [Entitic vol] 94.9 fL Normal 80.0-99.0 [facility] ([place]) Comment on above: Performed By: #### B MP, DIFF, CBC, GFR, MORPH ####[place] [address] Platelet 318 10 3/mcL Normal 150-450 [facility] ([place]) Comment on above: Performed By: #### B MP, DIFF, CBC, GFR, MORPH ####[place] [address] Platelet mean volume (Bld) [Entitic vol] 9.4 fL Normal 6.6-10.5 [facility] ([place]) Comment on above: Performed By: #### B MP, DIFF, CBC, GFR, MORPH ####[place] [address] RBC 2.86 10 6/mcL Low 4.10-5.30 [facility] ([place]) Comment on above: Performed By: #### B MP, DIFF, CBC, GFR, MORPH ####[place] [address] WBC 19.4 10 3/mcL High 4.5-10.8 [facility] ([place]) Comment on above: Performed By: #### B MP, DIFF, CBC, GFR, MORPH ####[place] [address] LABORATORYOrdered By: SYSTEM SYSTEM on 04-28-2024 Anisocytosis [...] (S/P/Bld) [Vol rate/Area] ml/min/1.73sqm Invalid Interpretation Code [employer] Chemistry S Comment on above: Interpretive Data: [...] [Vol rate/Area] 60 ml/min/1.73sqm Invalid Interpretation Code [employer] S Comment on above: Interpretive Data: [...] .GFRon 04-27-2024 GFR Non- 57 ml/min/1.73sqm Normal [facility] ([place]) Comment on above: Result Comment: GFR Population [...] ORT, GFR, TSHR, MORPH, BMP, CBC, DIFF ####[address] [address] GFR >60 Normal [facility] ([place]) Comment on above: Result Comment: GFR Population [...] ORT, GFR, TSHR, MORPH, BMP, CBC, DIFF ####[place] [address] .Manual Diffon 04-27-2024 Bands 1.0 % Normal 0.0-5.0 [facility] ([place]) Comment on above: Performed By: #### C ORT, GFR, TSHR, MORPH, BMP, CBC, DIFF ####[place] [address] Basophil %, Manual 0.0 % Normal 0.0-2.5 [facility] ([place]) Comment on above: Performed By: #### C ORT, GFR, TSHR, MORPH, BMP, CBC, DIFF ####[place] [id number] Basophil, Abs Manual 0.0 10 3/mcL Normal 0.0-0.3 [facility] ([place]) Comment on above: Performed By: #### C ORT, GFR, TSHR, MORPH, BMP, CBC, DIFF ####[place] [address] Eosinophil %, Manual 2.0 % Normal 0.0-6.0 [facility] ([place]) Comment on above: Performed By: #### C ORT, GFR, TSHR, MORPH, BMP, CBC, DIFF ####[address] [address] Eosinophil, Abs Manual 0.4 10 3/mcL Normal 0.0-0.7 [facility] ([place]) Comment on above: Performed By: #### C ORT, GFR, TSHR, MORPH, BMP, CBC, DIFF ####[place] [id number] Lymphocyte %, Manual 4.0 % Low 20.0-40.0 [facility] ([place]) Comment on above: Performed By: #### C ORT, GFR, TSHR, MORPH, BMP, CBC, DIFF ####[address] [address] Lymphocyte, Abs Manual 0.9 10 3/mcL Normal 0.9-4.3 [facility] ([place]) Comment on above: Performed By: #### C ORT, GFR, TSHR, MORPH, BMP, CBC, DIFF ####[place] [address] Metamyelocyte 1.0 % Normal [facility] ([place]) Comment on above: Performed By: #### C ORT, GFR, TSHR, MORPH, BMP, CBC, DIFF ####[place] [address] Monocyte %, Manual 2.0 % Normal 2.0-13.0 [facility] ([place]) Comment on above: Performed By: #### C ORT, GFR, TSHR, MORPH, BMP, CBC, DIFF ####[address] [address] Monocyte, Abs Manual 0.5 10 3/mcL Normal 0.1-1.4 [facility] ([place]) Comment on above: Performed By: #### C ORT, GFR, TSHR, MORPH, BMP, CBC, DIFF ####[address] [address] Neutrophil %, Manual 90.0 % High 50.0-75.0 [facility] ([place]) Comment on above: Performed By: #### C ORT, GFR, TSHR, MORPH, BMP, CBC, DIFF ####[place] [address] Neutrophil, Abs Manual 20.2 10 3/mcL High 2.3-8.1 [facility] ([place]) Comment on above: Performed By: #### C ORT, GFR, TSHR, MORPH, BMP, CBC, DIFF ####[place] [address] Nucleated RBC 0.0 /100 WBC Normal [facility] ([place]) Comment on above: Performed By: #### C ORT, GFR, TSHR, MORPH, BMP, CBC, DIFF ####[place] [address] .Morphon 04-27-2024 Anisocytosis Ql (Bld) 1+ Normal [facility] ([place]) Comment on above: Performed By: #### C ORT, GFR, TSHR, MORPH, BMP, CBC, DIFF ####[place] [address] Ovalocytes 1+ Normal [facility] ([place]) Comment on above: Performed By: #### C ORT, GFR, TSHR, MORPH, BMP, CBC, DIFF ####[place] [address] Platelet Estimate Normal Normal [facility] ([place]) Comment on above: Performed By: #### C ORT, GFR, TSHR, MORPH, BMP, CBC, DIFF ####[place] [address] Poik 1+ Normal [facility] ([place]) Comment on above: Performed By: #### C ORT, GFR, TSHR, MORPH, BMP, CBC, DIFF ####[place] [address] BMPon 04-27-2024 BUN/Creatinine Ratio 13.5 ratio Normal 10.0-22.0 [facility] ([place]) Comment on above: Performed By: #### C ORT, GFR, TSHR, MORPH, BMP, CBC, DIFF ####[place] [address] Calcium [Mass/Vol] 8.0 mg/dL Low 8.7-10.4 [facility] ([place]) Comment on above: Performed By: #### C ORT, GFR, TSHR, MORPH, BMP, CBC, DIFF ####[address] [address] Chloride [Moles/Vol] 109 mmol/L Normal 98-110 [facility] ([place]) Comment on above: Performed By: #### C ORT, GFR, TSHR, MORPH, BMP, CBC, DIFF ####[address] [address] CO2 [Moles/Vol] 24 mmol/L Normal 22-32 [facility] ([place]) Comment on above: Performed By: #### C ORT, GFR, TSHR, MORPH, BMP, CBC, DIFF ####[address] [address] Creatinine [Mass/Vol] 0.96 mg/dL Normal 0.50-1.20 [facility] ([place]) Comment on above: Performed By: #### C ORT, GFR, TSHR, MORPH, BMP, CBC, DIFF ####[address] [address] Electrolyte Balance 5.0 mEq/L Normal 4.0-15.0 [facility] ([place]) Comment on above: Performed By: #### C ORT, GFR, TSHR, MORPH, BMP, CBC, DIFF ####[address] [address] Glucose [Mass/Vol] 81 mg/dL Low 82-115 [facility] ([place]) Comment on above: Performed By: #### C ORT, GFR, TSHR, MORPH, BMP, CBC, DIFF ####[address] [address] Potassium [Moles/Vol] 3.6 mmol/L Normal 3.5-5.0 [facility] ([place]) Comment on above: Performed By: #### C ORT, GFR, TSHR, MORPH, BMP, CBC, DIFF ####[address] [address] Sodium [Moles/Vol] 138 mmol/L Normal 136-145 [facility] ([place]) Comment on above: Performed By: #### C ORT, GFR, TSHR, MORPH, BMP, CBC, DIFF ####[place] [address] Urea nitrogen [Mass/Vol] 13.0 mg/dL Normal 8.0-22.0 [facility] ([place]) Comment on above: Performed By: #### C ORT, GFR, TSHR, MORPH, BMP, CBC, DIFF ####[place] [address] CBCon 04-27-2024 Erythrocyte distribution width (RBC) [Ratio] 17.7 % High 11.5-15.5 [facility] ([place]) Comment on above: Performed By: #### C ORT, GFR, TSHR, MORPH, BMP, CBC, DIFF ####[place] [address] Hematocrit (Bld) [Volume fraction] 25.1 % Low 34.0-46.0 [facility] ([place]) Comment on above: Performed By: #### C ORT, GFR, TSHR, MORPH, BMP, CBC, DIFF ####[place] [address] Hgb 8.3 G/dL Low 12.0-16.0 [facility] ([place]) Comment on above: Performed By: #### C ORT, GFR, TSHR, MORPH, BMP, CBC, DIFF ####[place] [address] MCH (RBC) [Entitic mass] 31.4 pg Normal 27.0-33.0 [facility] ([place]) Comment on above: Performed By: #### C ORT, GFR, TSHR, MORPH, BMP, CBC, DIFF ####[place] [address] MCHC 33.3 G/dL Normal 32.0-36.0 [facility] ([place]) Comment on above: Performed By: #### C ORT, GFR, TSHR, MORPH, BMP, CBC, DIFF ####[place] [address] MCV (RBC) [Entitic vol] 94.4 fL Normal 80.0-99.0 [facility] ([place]) Comment on above: Performed By: #### C ORT, GFR, TSHR, MORPH, BMP, CBC, DIFF ####[place] [address] Platelet 298 10 3/mcL Normal 150-450 [facility] ([place]) Comment on above: Performed By: #### C ORT, GFR, TSHR, MORPH, BMP, CBC, DIFF ####[place] [address] Platelet mean volume (Bld) [Entitic vol] 9.7 fL Normal 6.6-10.5 [facility] ([place]) Comment on above: Performed By: #### C ORT, GFR, TSHR, MORPH, BMP, CBC, DIFF ####[place] [address] RBC 2.66 10 6/mcL Low 4.10-5.30 [facility] ([place]) Comment on above: Performed By: #### C ORT, GFR, TSHR, MORPH, BMP, CBC, DIFF ####[place] [address] WBC 22.3 10 3/mcL High 4.5-10.8 [facility] ([place]) Comment on above: Performed By: #### C ORT, GFR, TSHR, MORPH, BMP, CBC, DIFF ####[place] [address] CORTon 04-27-2024 Cortisol Level 21.0 mcg/dL Normal [facility] ([place]) Comment on above: Result Comment: Jelani isol AM Reference Range 6.5-26.0 mcg/dL Cortisol PM Reference Range 3.5-15.0 mcg/dL Performed By: #### C ORT, GFR, TSHR, MORPH, BMP, CBC, DIFF ####[place] [address] CT ABDOMEN/PELVIS W/CONTRAST on 04-27-2024 CT ABDOMEN/PELVIS [...] 04/27/2024 8:45:58 PM Ordering Provider: AGUILAR Francisco [facility] ([place]) LABORATORYOrdered By: SYSTEM SYSTEM on 04-27-2024 Anisocytosis [...] TSHRon 04-27-2024 TSH 4.494 mIU/mL Normal 0.550-4.780 [facility] ([place]) Comment on above: Result Comment: No te - New Reference Range in effect 20 Performed By: #### C ORT, GFR, TSHR, MORPH, BMP, CBC, DIFF ####[address] [address] .GFRon 04-26-2024 GFR Non- 51 ml/min/1.73sqm Normal [facility] ([place]) Comment on above: Result Comment: GFR Population [...] #### C BC, BMP, DIFF, GFR, MORPH ####[address] [address] GFR >60 Normal [facility] ([place]) Comment on above: Result Comment: GFR Population [...] #### C BC, BMP, DIFF, GFR, MORPH ####[place] [address] .Manual Diffon 04-26-2024 Bands 1.0 % Normal 0.0-5.0 [facility] ([place]) Comment on above: Performed By: #### C BC, BMP, DIFF, GFR, MORPH ####[place] [address] Basophil %, Manual 0.0 % Normal 0.0-2.5 [facility] ([place]) Comment on above: Performed By: #### C BC, BMP, DIFF, GFR, MORPH ####[place] [address] Basophil, Abs Manual 0.0 10 3/mcL Normal 0.0-0.3 [facility] ([place]) Comment on above: Performed By: #### C BC, BMP, DIFF, GFR, MORPH ####[place] [address] Eosinophil %, Manual 2.0 % Normal 0.0-6.0 [facility] ([place]) Comment on above: Performed By: #### C BC, BMP, DIFF, GFR, MORPH ####[place] [address] Eosinophil, Abs Manual 0.5 10 3/mcL Normal 0.0-0.7 [facility] ([place]) Comment on above: Performed By: #### C BC, BMP, DIFF, GFR, MORPH ####[place] [address] Lymphocyte %, Manual 5.0 % Low 20.0-40.0 [facility] ([place]) Comment on above: Performed By: #### C BC, BMP, DIFF, GFR, MORPH ####[address] [address] Lymphocyte, Abs Manual 1.3 10 3/mcL Normal 0.9-4.3 [facility] ([place]) Comment on above: Performed By: #### C BC, BMP, DIFF, GFR, MORPH ####[address] [address] Metamyelocyte 1.0 % Normal [facility] ([place]) Comment on above: Performed By: #### C BC, BMP, DIFF, GFR, MORPH ####[address] [address] Monocyte %, Manual 3.0 % Normal 2.0-13.0 [facility] ([place]) Comment on above: Performed By: #### C BC, BMP, DIFF, GFR, MORPH ####[address] [address] Monocyte, Abs Manual 0.8 10 3/mcL Normal 0.1-1.4 [facility] ([place]) Comment on above: Performed By: #### C BC, BMP, DIFF, GFR, MORPH ####[address] [address] Neutrophil %, Manual 88.0 % High 50.0-75.0 [facility] ([place]) Comment on above: Performed By: #### C BC, BMP, DIFF, GFR, MORPH ####[address] [address] Neutrophil, Abs Manual 23.7 10 3/mcL High 2.3-8.1 [facility] ([place]) Comment on above: Performed By: #### C BC, BMP, DIFF, GFR, MORPH ####[address] [address] Nucleated RBC 1.0 /100 WBC Normal [facility] ([place]) Comment on above: Performed By: #### C BC, BMP, DIFF, GFR, MORPH ####[place] [address] .Morphon 04-26-2024 Anisocytosis Ql (Bld) 1+ Normal [facility] ([place]) Comment on above: Performed By: #### C BC, BMP, DIFF, GFR, MORPH ####[place] [address] Ovalocytes 1+ Normal [facility] ([place]) Comment on above: Performed By: #### C BC, BMP, DIFF, GFR, MORPH ####[place] [address] Platelet Estimate Normal Normal [facility] ([place]) Comment on above: Performed By: #### C BC, BMP, DIFF, GFR, MORPH ####[place] [address] Poik 1+ Normal [facility] ([place]) Comment on above: Performed By: #### C BC, BMP, DIFF, GFR, MORPH ####[place] [address] Toxic Gran 1+ Normal [facility] ([place]) Comment on above: Performed By: #### C BC, BMP, DIFF, GFR, MORPH ####[place] [address] APTTon 04-26-2024 aPTT Coag (Bld) [Time] 55.4 s High 25.0-35.0 [facility] ([place]) Comment on above: Result Comment: For Heparin anticoagulation therapy, the recommended therapeutic range is: 54-77 seconds (APTT Correlation with Anti-Xa therapeutic range of 0.3-0.7 units/ml). PLEASE REFERENCE THE PHARMACY PROTOCOL FOR DOSING. Performed By: #### C BC, BMP, DIFF, GFR, MORPH ####[place] [address] Heparin dose (APTT) Heparin IV Normal [facility] ([place]) Comment on above: Performed By: #### C BC, BMP, DIFF, GFR, MORPH ####[place] [address] BMPon 04-26-2024 BUN/Creatinine Ratio 17.0 ratio Normal 10.0-22.0 [facility] ([place]) Comment on above: Performed By: #### C BC, BMP, DIFF, GFR, MORPH ####[address] [address] Calcium [Mass/Vol] 8.3 mg/dL Low 8.7-10.4 [facility] ([place]) Comment on above: Performed By: #### C BC, BMP, DIFF, GFR, MORPH ####[place] [id number] Chloride [Moles/Vol] 105 mmol/L Normal 98-110 [facility] ([place]) Comment on above: Performed By: #### C BC, BMP, DIFF, GFR, MORPH ####[address] [address] CO2 [Moles/Vol] 23 mmol/L Normal 22-32 [facility] ([place]) Comment on above: Performed By: #### C BC, BMP, DIFF, GFR, MORPH ####[place] [address] Creatinine [Mass/Vol] 1.06 mg/dL Normal 0.50-1.20 [facility] ([place]) Comment on above: Performed By: #### C BC, BMP, DIFF, GFR, MORPH ####[address] [address] Electrolyte Balance 8.0 mEq/L Normal 4.0-15.0 [facility] ([place]) Comment on above: Performed By: #### C BC, BMP, DIFF, GFR, MORPH ####[address] [address] Glucose [Mass/Vol] 87 mg/dL Normal 82-115 [facility] ([place]) Comment on above: Performed By: #### C BC, BMP, DIFF, GFR, MORPH ####[address] [address] Potassium [Moles/Vol] 3.6 mmol/L Normal 3.5-5.0 [facility] ([place]) Comment on above: Performed By: #### C BC, BMP, DIFF, GFR, MORPH ####[place] [address] Sodium [Moles/Vol] 136 mmol/L Normal 136-145 [facility] ([place]) Comment on above: Performed By: #### C BC, BMP, DIFF, GFR, MORPH ####[place] [address] Urea nitrogen [Mass/Vol] 18.0 mg/dL Normal 8.0-22.0 [facility] ([place]) Comment on above: Performed By: #### C BC, BMP, DIFF, GFR, MORPH ####[place] [address] CBCon 04-26-2024 Erythrocyte distribution width (RBC) [Ratio] 17.6 % High 11.5-15.5 [facility] ([place]) Comment on above: Performed By: #### C BC, BMP, DIFF, GFR, MORPH ####[place] [address] Hematocrit (Bld) [Volume fraction] 27.5 % Low 34.0-46.0 [facility] ([place]) Comment on above: Performed By: #### C BC, BMP, DIFF, GFR, MORPH ####[place] [address] Hgb 9.0 G/dL Low 12.0-16.0 [facility] ([place]) Comment on above: Performed By: #### C BC, BMP, DIFF, GFR, MORPH ####[place] [address] MCH (RBC) [Entitic mass] 31.1 pg Normal 27.0-33.0 [facility] ([place]) Comment on above: Performed By: #### C BC, BMP, DIFF, GFR, MORPH ####[place] [address] MCHC 32.7 G/dL Normal 32.0-36.0 [facility] ([place]) Comment on above: Performed By: #### C BC, BMP, DIFF, GFR, MORPH ####[place] [address] MCV (RBC) [Entitic vol] 94.9 fL Normal 80.0-99.0 [facility] ([place]) Comment on above: Performed By: #### C BC, BMP, DIFF, GFR, MORPH ####[address] [address] Platelet 276 10 3/mcL Normal 150-450 [facility] ([place]) Comment on above: Performed By: #### C BC, BMP, DIFF, GFR, MORPH ####[place] [address] Platelet mean volume (Bld) [Entitic vol] 10.0 fL Normal 6.6-10.5 [facility] ([place]) Comment on above: Performed By: #### C BC, BMP, DIFF, GFR, MORPH ####[place] [address] RBC 2.89 10 6/mcL Low 4.10-5.30 [facility] ([place]) Comment on above: Performed By: #### C BC, BMP, DIFF, GFR, MORPH ####[place] [address] WBC 26.7 10 3/mcL High 4.5-10.8 [facility] ([place]) Comment on above: Performed By: #### C BC, BMP, DIFF, GFR, MORPH ####[address] [address] LABORATORYOrdered By: Juan on 04-26-2024 aPTT Coag [...] 04/26/2024 1:56:29 PM Ordering Provider: ELIZABETH LARA [facility] ([place]) XR ABDOMEN 2 VIEWS W/ DECUB/ ERECTon [...] 04/26/2024 3:24:13 PM Ordering Provider: AGUILAR LOPEZ [facility] ([place]) .GFRon 04-25-2024 GFR Non- 42 ml/min/1.73sqm Normal [facility] ([place]) Comment on above: Result Comment: GFR Population [...] meters Performed By: #### G FR, BMP ####[place] [address] GFR 51 ml/min/1.73sqm Normal [facility] ([place]) Comment on above: Result Comment: GFR Population [...] meters Performed By: #### G FR, BMP ####[place] [id number] .Manual Diffon 04-25-2024 Bands 1.0 % Normal 0.0-5.0 [facility] ([place]) Comment on above: Performed By: #### M ORPH, DIFF, CBC ####[address] [address] Basophil %, Manual 0.0 % Normal 0.0-2.5 [facility] ([place]) Comment on above: Performed By: #### M ORPH, DIFF, CBC ####[address] [address] Basophil, Abs Manual 0.0 10 3/mcL Normal 0.0-0.3 [facility] ([place]) Comment on above: Performed By: #### M ORPH, DIFF, CBC ####[address] [address] Eosinophil %, Manual 1.0 % Normal 0.0-6.0 [facility] ([place]) Comment on above: Performed By: #### M ORPH, DIFF, CBC ####[address] [address] Eosinophil, Abs Manual 0.2 10 3/mcL Normal 0.0-0.7 [facility] ([place]) Comment on above: Performed By: #### M ORPH, DIFF, CBC ####[address] [address] Lymphocyte %, Manual 11.0 % Low 20.0-40.0 [facility] ([place] Comment on above: Performed By: #### M ORPH, DIFF, CBC ####[address] [address] Lymphocyte, Abs Manual 2.7 10 3/mcL Normal 0.9-4.3 [facility] ([place]) Comment on above: Performed By: #### M ORPH, DIFF, CBC ####[address] [address] Monocyte %, Manual 1.0 % Low 2.0-13.0 [facility] ([place]) Comment on above: Performed By: #### M ORPH, DIFF, CBC ####[address] [address] Monocyte, Abs Manual 0.2 10 3/mcL Normal 0.1-1.4 [facility] ([place]) Comment on above: Performed By: #### M ORPH, DIFF, CBC ####[place] [address] Neutrophil %, Manual 86.0 % High 50.0-75.0 [facility] ([place]) Comment on above: Performed By: #### M ORPH, DIFF, CBC ####[place] [address] Neutrophil, Abs Manual 20.9 10 3/mcL High 2.3-8.1 [facility] ([place]) Comment on above: Performed By: #### M ORPH, DIFF, CBC ####[place] [address] Nucleated RBC 0.0 /100 WBC Normal [facility] ([place]) Comment on above: Performed By: #### M ORPH, DIFF, CBC ####[place] [address] .Morphon 04-25-2024 Anisocytosis Ql (Bld) 1+ Normal [facility] ([place]) Comment on above: Performed By: #### M ORPH, DIFF, CBC ####[place] [address] Ovalocytes 1+ Normal [facility] ([place]) Comment on above: Performed By: #### M ORPH, DIFF, CBC ####[place] [address] Platelet Estimate Normal Normal [facility] ([place]) Comment on above: Performed By: #### M ORPH, DIFF, CBC ####[place] [address] Poik 1+ Normal [facility] ([place]) Comment on above: Performed By: #### M ORPH, DIFF, CBC ####[place] [address] Polychrom 1+ Normal [facility] ([place]) Comment on above: Performed By: #### M ORPH, DIFF, CBC ####[place] [address] ABO/Rh (Gel)on 04-25-2024 ABO/Rh Interp Positive Invalid Interpretation Code [facility] ([place]) Comment on above: Performed By: #### A JEF ASHFORD ####[place] [address] ABS (Gel)on 04-25-2024 ABSC Interp (Gel) Negative Normal [facility] ([place]) Comment on above: Performed By: #### A JEF ASHFORD ####[place] [address] APTTon 04-25-2024 aPTT Coag (Bld) [Time] 54.6 s High 25.0-35.0 [facility] ([place]) Comment on above: Result Comment: For Heparin anticoagulation therapy, the recommended therapeutic range is: 54-77 seconds (APTT Correlation with Anti-Xa therapeutic range of 0.3-0.7 units/ml). PLEASE REFERENCE THE PHARMACY PROTOCOL FOR DOSING. Heparin dose (APTT) Heparin IV Normal [facility] ([place]) aPTT Coag (Bld) [Time] 65.7 s High 25.0-35.0 [facility] ([place]) Comment on above: Result Comment: For Heparin anticoagulation therapy, the recommended therapeutic range is: 54-77 seconds (APTT Correlation with Anti-Xa therapeutic range of 0.3-0.7 units/ml). PLEASE REFERENCE THE PHARMACY PROTOCOL FOR DOSING. Heparin dose (APTT) Heparin IV Normal [facility] ([place]) aPTT Coag (Bld) [Time] 74.8 s High 25.0-35.0 [facility] ([place]) Comment on above: Result Comment: For Heparin anticoagulation therapy, the recommended therapeutic range is: 54-77 seconds (APTT Correlation with Anti-Xa therapeutic range of 0.3-0.7 units/ml). PLEASE REFERENCE THE PHARMACY PROTOCOL FOR DOSING. Performed By: ###FAIZAN NIXON ####[place] [address] Heparin dose (APTT) Heparin IV Normal [facility] ([place]) Comment on above: Performed By: #### FAIZAN LAMB ####[place] [address] BCIDon 04-25-2024 Acinetobacter michi-baumanii complex Not detected Normal Not Detected [facility] ([place]) Comment on above: Performed By: #### B JARET ####[place] [address] Bacteroides fragilis Not detected Normal Not Detected [facility] ([place]) Comment on above: Performed By: #### B JARET ####[place] [address] BCID Comment See Comment Normal [facility] ([place]) Comment on above: Result [...] to follow. Performed By: #### B JARET ####[place] [address] Virginie albicans Not detected Normal Not Detected [facility] ([place]) Comment on above: Performed By: #### B JARET ####[place] [address] Virginie auris Not detected Normal Not Detected [facility] ([place] Comment on above: Performed By: #### B JARET ####[place] [address] Virginie glabrata Not detected Normal Not Detected [facility] ([place]) Comment on above: Performed By: #### B JARET ####[place] [address] Virginie krusei Not detected Normal Not Detected [facility] ([place]) Comment on above: Performed By: #### B JARET ####[place] [address] Virginie parapsilosis Not detected Normal Not Detected [facility] ([place] Comment on above: Performed By: #### B JARET ####[place] [address] Virginie tropicalis Not detected Normal Not Detected [facility] ([place]) Comment on above: Performed By: #### B JARET ####[id number] [place] [address] Cryptococcus neoformans-gattii Not detected Normal Not Detected [facility] ([place]) Comment on above: Performed By: #### B JARET ####[place] [address] CTX-M (ESBL) Not detected Normal Not Detected [facility] ([place] Comment on above: Performed By: #### B JARET ####[place] [address] E. Coli Detected Abnormal Not Detected [facility] ([place] Comment on above: Performed By: #### B JARET ####[place] [address] Enterobacter cloacae Complex Not detected Normal Not Detected [facility] ([place] Comment on above: Performed By: #### B JARET ####[place] [address] Enterobacterales Detected Abnormal Not Detected [facility] ([place] Comment on above: Performed By: #### B JARET ####[place] [address] Enterococcus faecalis Not detected Normal Not Detected [facility] ([place] Comment on above: Performed By: #### B JARET ####[place] [address] Enterococcus faecium Not detected Normal Not Detected [facility] ([place] Comment on above: Performed By: #### B JARET ####[place] [address] Haemophilus influenzae Not detected Normal Not Detected [facility] ([place] Comment on above: Performed By: #### B JARET ####[place] [address] IMP (Carbapenemase) Not detected Normal Not Detected [facility] ([place] Comment on above: Performed By: #### B JARET ####[place] [address] Klebsiella aerogenes Not detected Normal Not Detected [facility] ([place] Comment on above: Performed By: #### B JARET ####[place] [address] Klebsiella oxytoca Not detected Normal Not Detected [facility] ([place] Comment on above: Performed By: #### B JARET ####[place] [address] Klebsiella pneumoniae group Not detected Normal Not Detected [facility] ([place] Comment on above: Performed By: #### B JARET ####[place] [address] KPC (Carbapenemase) Not detected Normal Not Detected [facility] ([place] Comment on above: Performed By: #### B JARET ####[place] [address] Listeria monocytogenes Not detected Normal Not Detected [facility] ([place] Comment on above: Performed By: #### B JARET ####[place] [address] MCR-1 (Colistin Resistance) Not detected Normal Not Detected [facility] ([place] Comment on above: Performed By: #### B JARET ####[place] [address] Mec A/C Not Applicable Normal Not Detected [facility] ([place] Comment on above: Performed By: #### B JARET ####[place] [address] Mec A/C-MREJ (MRSA) Not Applicable Normal Not Detected [facility] ([place] Comment on above: Performed By: #### B JARET ####[place] [address] NDM (Carbapenemase) Not detected Normal Not Detected [facility] ([place] Comment on above: Performed By: #### B JARET ####[place] [address] Neisseria meningitidis (Encapsalated) Not detected Normal Not Detected [facility] ([place] Comment on above: Performed By: #### B JARET ####[place] [address] OXA-48 like (Carbapenemase) Not detected Normal Not Detected [facility] ([place] Comment on above: Performed By: #### B JARET ####[place] [address] Proteus Not detected Normal Not Detected [facility] ([place] Comment on above: Performed By: #### B JARET ####[place] [address] Pseudomonas aeruginosa Not detected Normal Not Detected [facility] ([place] Comment on above: Performed By: #### B JARET ####[place] [address] S. agalactiae Org specific cx Ql (Vag fld) Not detected Normal Not Detected [facility] ([place] Comment on above: Performed By: #### B JARET ####[place] [address] Salmonella species Not detected Normal Not Detected [facility] ([place] Comment on above: Performed By: #### B JARET ####[place] [address] Serratia marcescens Not detected Normal Not Detected [facility] ([place] Comment on above: Performed By: #### B JARET ####[place] [address] Staphylococcus Not detected Normal Not Detected [facility] ([place] Comment on above: Performed By: #### B JARET ####[place] [address] Staphylococcus aureus Not detected Normal Not Detected [facility] ([place]) Comment on above: Result Comment: If S taphylococcus aureus is Detected , an Infectious Disease physician consult is required on identification. Performed By: #### B JARET ####[place] [address] Staphylococcus epidermidis Not detected Normal Not Detected [facility] ([place] Comment on above: Performed By: #### B JARET ####[place] [address] Staphylococcus lugdunensis Not detected Normal Not Detected [facility] ([place] Comment on above: Performed By: #### B JARET ####[place] [address] Stenotrophomonas maltophilia Not detected Normal Not Detected [facility] ([place] Comment on above: Performed By: #### B JARET ####[place] [address] Streptococcus Not detected Normal Not Detected [facility] ([place] Comment on above: Performed By: #### B JARET ####[place] [address] Streptococcus pneumoniae Not detected Normal Not Detected [facility] ([place] Comment on above: Performed By: #### B JARET ####[place] [address] Streptococcus pyogenes Not detected Normal Not Detected [facility] ([place] Comment on above: Performed By: #### B JARET ####[place] [address] Van A/B Not Applicable Normal Not Detected [facility] ([place] Comment on above: Performed By: #### B JARET ####[place] [address] VIM (Carbapenemase) Not detected Normal Not Detected [facility] ([place] Comment on above: Performed By: #### B JARET ####[place] [address] BMPon 04-25-2024 BUN/Creatinine Ratio 21.4 ratio Normal 10.0-22.0 [facility] ([place] Comment on above: Performed By: #### G FR, BMP ####[place] [address] Calcium [Mass/Vol] 7.6 mg/dL Low 8.7-10.4 [facility] ([place]) Comment on above: Performed By: #### G FR, BMP ####[place] [address] Chloride [Moles/Vol] 100 mmol/L Normal 98-110 [facility] ([place] Comment on above: Performed By: #### G FR, BMP ####[place] [id number] CO2 [Moles/Vol] 19 mmol/L Low 22-32 [facility] ([place]) Comment on above: Performed By: #### G FR, BMP ####[address] [address] Creatinine [Mass/Vol] 1.26 mg/dL High 0.50-1.20 [facility] ([place]) Comment on above: Performed By: #### Tara SAMPSON, BMP ####[place] [address] Electrolyte Balance 9.0 mEq/L Normal 4.0-15.0 [facility] ([place]) Comment on above: Performed By: #### Tara SAMPSON, BMP ####[place] [address] Glucose [Mass/Vol] 105 mg/dL Normal 82-115 [facility] ([place] Comment on above: Performed By: #### Tara SAMPSON, BMP ####[place] [address] Potassium [Moles/Vol] 3.8 mmol/L Normal 3.5-5.0 [facility] ([place]) Comment on above: Performed By: #### Tara SAMPSON, BMP ####[place] [address] Sodium [Moles/Vol] 128 mmol/L Low 136-145 [facility] ([place] Comment on above: Performed By: #### Tara SAMPSON, BMP ####[place] [address] Urea nitrogen [Mass/Vol] 27.0 mg/dL High 8.0-22.0 [facility] ([place]) Comment on above: Performed By: #### Tara SAMPSON, BMP ####[place] [address] CBCon 04-25-2024 Erythrocyte distribution width (RBC) [Ratio] 17.1 % High 11.5-15.5 [facility] ([place]) Comment on above: Performed By: #### M ORPH, DIFF, CBC ####[address] [address] Hematocrit (Bld) [Volume fraction] 19.4 % Low 34.0-46.0 [facility] ([place]) Comment on above: Performed By: #### M ORPH, DIFF, CBC ####[address] [address] Hgb 6.3 G/dL Critically abnormal 12.0-16.0 [facility] ([place]) Comment on above: Performed By: #### M ORPH, DIFF, CBC ####[address] [address] MCH (RBC) [Entitic mass] 31.3 pg Normal 27.0-33.0 [facility] ([place]) Comment on above: Performed By: #### M ORPH, DIFF, CBC ####[address] [address] MCHC 32.6 G/dL Normal 32.0-36.0 [facility] ([place]) Comment on above: Performed By: #### M ORPH, DIFF, CBC ####[address] [address] MCV (RBC) [Entitic vol] 95.9 fL Normal 80.0-99.0 [facility] ([place]) Comment on above: Performed By: #### M ORPH, DIFF, CBC ####[address] [address] Platelet 236 10 3/mcL Normal 150-450 [facility] ([place]) Comment on above: Performed By: #### M ORPH, DIFF, CBC ####[address] [address] Platelet mean volume (Bld) [Entitic vol] 9.6 fL Normal 6.6-10.5 [facility] ([place]) Comment on above: Performed By: #### M ORPH, DIFF, CBC ####[address] [address] RBC 2.02 10 6/mcL Low 4.10-5.30 [facility] ([place]) Comment on above: Performed By: #### M ORPH, DIFF, CBC ####[address] [address] WBC 24.1 10 3/mcL High 4.5-10.8 [facility] ([place]) Comment on above: Performed By: #### M ORPH, DIFF, CBC ####[facility] [place] [address] HHon 04-25-2024 Hematocrit (Bld) [Volume fraction] 25.8 % Low 34.0-46.0 [facility] ([place]) Comment on above: Performed By: #### O SMOS #### [facility] [address] [place] [address] Hgb 8.6 G/dL Low 12.0-16.0 [facility] ([place]) Comment on above: Performed By: #### O SMOS #### [facility] [address] [place] [id number] LABORATORYOrdered By: Luis E Duke on 04-25-2024 [...] SS NAURon 04-25-2024 U Sodium <10 Normal [facility] ([place]) Comment on above: Performed By: #### O BRANDEE BARRY ####[place] [address] [place] [id number] No Panel Informationon 04-25 Microscopic examination of blood, culture Blood Culture: No Growth at 5 days. [facility] Microscopic examination of blood, culture Blood Culture: No Growth at 5 days. [facility] OSMOUon 04-25-2024 U Osmolality 111 mOsm/kg Low 390-1090 [facility] ([place]) Comment on above: Performed By: #### O BRANDEE BARRY ####[address] [address] RBC (Product)on 04-25-2024 RBC Product Ready RBC Ready for Pickup Normal [facility] ([place]) Comment on above: Performed By: #### R BCP #### [address] [address] .GFRon 04-24-2024 GFR 47 ml/min/1.73sqm Normal [facility] ([place]) Comment on above: Result Comment: GFR Population [...] G FR, TROPHS, MG, HFP, LIPID, BMP ####[place] [address] GFR Non- 38 ml/min/1.73sqm Normal [facility] ([place]) Comment on above: Result Comment: GFR Population [...] G FR, TROPHS, MG, HFP, LIPID, BMP ####[place] [address] .Manual Diffon 04-24-2024 Bands 2.0 % Normal 0.0-5.0 [facility] ([place]) Comment on above: Performed By: #### O SMOS #### [place] [address] Basophil %, Manual 0.0 % Normal 0.0-2.5 [facility] ([place]) Comment on above: Performed By: #### O SMOS #### [place] [address] Basophil, Abs Manual 0.0 10 3/mcL Normal 0.0-0.3 [facility] ([place]) Comment on above: Performed By: #### O SMOS #### [place] [address] Eosinophil %, Manual 0.0 % Normal 0.0-6.0 [facility] ([place]) Comment on above: Performed By: #### O SMOS #### [address] [address] Eosinophil, Abs Manual 0.0 10 3/mcL Normal 0.0-0.7 [facility] ([place]) Comment on above: Performed By: #### O SMOS #### [address] [address] Lymphocyte %, Manual 5.0 % Low 20.0-40.0 [facility] ([place]) Comment on above: Performed By: #### O SMOS #### [address] [address] Lymphocyte, Abs Manual 1.6 10 3/mcL Normal 0.9-4.3 [facility] ([place]) Comment on above: Performed By: #### O SMOS #### [address] [address] Monocyte %, Manual 1.0 % Low 2.0-13.0 [facility] ([place]) Comment on above: Performed By: #### O SMOS #### [address] [address] Monocyte, Abs Manual 0.3 10 3/mcL Normal 0.1-1.4 [facility] ([place]) Comment on above: Performed By: #### O SMOS #### [address] [address] Myelocyte 1.0 % Normal [facility] ([place]) Comment on above: Performed By: #### O SMOS #### [address] [address] Neutrophil %, Manual 91.0 % High 50.0-75.0 [facility] ([place]) Comment on above: Performed By: #### O SMOS #### [address] [address] Neutrophil, Abs Manual 29.4 10 3/mcL High 2.3-8.1 [facility] ([place]) Comment on above: Performed By: #### O SMOS #### [address] [address] Nucleated RBC 1.0 /100 WBC Normal [facility] ([place]) Comment on above: Performed By: #### O SMOS #### [place] [address] .Morphon 04-24-2024 Anisocytosis Ql (Bld) 1+ Normal [facility] ([place]) Comment on above: Performed By: #### O SMOS #### [place] [address] Hypochrom 1+ Normal [facility] ([place]) Comment on above: Performed By: #### O SMOS #### [place] [address] Ovalocytes 1+ Normal [facility] ([place]) Comment on above: Performed By: #### O SMOS #### [place] [address] Platelet Estimate Normal Normal [facility] ([place]) Comment on above: Performed By: #### O SMOS #### [place] [address] Poik 1+ Normal [facility] ([place]) Comment on above: Performed By: #### O SMOS #### [place] [address] Polychrom 1+ Normal [facility] ([place]) Comment on above: Performed By: #### O SMOS #### [place] [address] Toxic Gran 1+ Normal [facility] ([place]) Comment on above: Performed By: #### O SMOS #### [place] [address] APTTon 04-24-2024 aPTT Coag (Bld) [Time] 87.6 s High 25.0-35.0 [facility] ([place]) Comment on above: Result Comment: For Heparin anticoagulation therapy, the recommended therapeutic range is: 54-77 seconds (APTT Correlation with Anti-Xa therapeutic range of 0.3-0.7 units/ml). PLEASE REFERENCE THE PHARMACY PROTOCOL FOR DOSING. Heparin dose (APTT) Heparin IV Normal [facility] ([place]) aPTT Coag (Bld) [Time] 147.9 s Critically abnormal 25.0-35.0 [facility] ([place]) Comment on above: Order Comment: recol lect Result Comment: For Heparin anticoagulation therapy, the recommended therapeutic range is: 54-77 seconds (APTT Correlation with Anti-Xa therapeutic range of 0.3-0.7 units/ml). PLEASE REFERENCE THE PHARMACY PROTOCOL FOR DOSING. Heparin dose (APTT) Heparin IV Normal [facility] ([place]) Comment on above: Order Comment: recol lect aPTT Coag (Bld) [Time] 145.4 s Critically abnormal 25.0-35.0 [facility] ([place]) Comment on above: Result Comment: For Heparin anticoagulation therapy, the recommended therapeutic range is: 54-77 seconds (APTT Correlation with Anti-Xa therapeutic range of 0.3-0.7 units/ml). PLEASE REFERENCE THE PHARMACY PROTOCOL FOR DOSING. Heparin dose (APTT) Heparin IV Normal [facility] ([place]) aPTT Coag (Bld) [Time] 125.7 s Critically abnormal 25.0-35.0 [facility] ([place]) Comment on above: Result Comment: For Heparin anticoagulation therapy, the recommended therapeutic range is: 54-77 seconds (APTT Correlation with Anti-Xa therapeutic range of 0.3-0.7 units/ml). PLEASE REFERENCE THE PHARMACY PROTOCOL FOR DOSING. Performed By: #### O SMOS #### [address] [address] Heparin dose (APTT) Coumadin PO Normal [facility] ([place]) Comment on above: Performed By: #### O SMOS #### [address] [address] BMPon 04-24-2024 BUN/Creatinine Ratio 17.6 ratio Normal 10.0-22.0 [facility] ([place]) Comment on above: Performed By: #### G FR, TROPHS, MG, HFP, LIPID, BMP ####[address] [address] Calcium [Mass/Vol] 7.6 mg/dL Low 8.7-10.4 [facility] ([place]) Comment on above: Performed By: #### G FR, TROPHS, MG, HFP, LIPID, BMP ####[address] [address] Chloride [Moles/Vol] 100 mmol/L Normal 98-110 [facility] ([place]) Comment on above: Performed By: #### G FR, TROPHS, MG, HFP, LIPID, BMP ####[address] [address] CO2 [Moles/Vol] 17 mmol/L Low 22-32 [facility] ([place]) Comment on above: Performed By: #### G FR, TROPHS, MG, HFP, LIPID, BMP ####[address] [address] Creatinine [Mass/Vol] 1.36 mg/dL High 0.50-1.20 [facility] ([place]) Comment on above: Performed By: #### G FR, TROPHS, MG, HFP, LIPID, BMP ####[place] [address] Electrolyte Balance 12.0 mEq/L Normal 4.0-15.0 [facility] ([place]) Comment on above: Performed By: #### G FR, TROPHS, MG, HFP, LIPID, BMP ####[place] [address] Glucose [Mass/Vol] 111 mg/dL Normal 82-115 [facility] ([place]) Comment on above: Performed By: #### G FR, TROPHS, MG, HFP, LIPID, BMP ####[place] [address] Potassium [Moles/Vol] 4.0 mmol/L Normal 3.5-5.0 [facility] ([place]) Comment on above: Performed By: #### G FR, TROPHS, MG, HFP, LIPID, BMP ####[place] [address] Sodium [Moles/Vol] 129 mmol/L Low 136-145 [facility] ([place]) Comment on above: Performed By: #### G FR, TROPHS, MG, HFP, LIPID, BMP ####[place] [address] Urea nitrogen [Mass/Vol] 24.0 mg/dL High 8.0-22.0 [facility] ([place]) Comment on above: Performed By: #### G FR, TROPHS, MG, HFP, LIPID, BMP ####[place] [address] CBCon 04-24-2024 Erythrocyte distribution width (RBC) [Ratio] 17.0 % High 11.5-15.5 [facility] ([place]) Comment on above: Performed By: #### R BCP #### [place] [address] Hematocrit (Bld) [Volume fraction] 22.1 % Low 34.0-46.0 [facility] ([place]) Comment on above: Performed By: #### R BCP #### [place] [address] Hgb 7.3 G/dL Low 12.0-16.0 [facility] ([place]) Comment on above: Performed By: #### R BCP #### [place] [address] MCH (RBC) [Entitic mass] 31.7 pg Normal 27.0-33.0 [facility] ([place]) Comment on above: Performed By: #### R BCP #### [place] [address] MCHC 33.2 G/dL Normal 32.0-36.0 [facility] ([place]) Comment on above: Performed By: #### R BCP #### [place] [address] MCV (RBC) [Entitic vol] 95.6 fL Normal 80.0-99.0 [facility] ([place]) Comment on above: Performed By: #### R BCP #### [place] [address] Platelet 231 10 3/mcL Normal 150-450 [facility] ([place]) Comment on above: Performed By: #### R BCP #### [place] [id number] Platelet mean volume (Bld) [Entitic vol] 9.7 fL Normal 6.6-10.5 [facility] ([place]) Comment on above: Performed By: #### R BCP #### [place] [address] RBC 2.31 10 6/mcL Low 4.10-5.30 [facility] ([place]) Comment on above: Performed By: #### R BCP #### [place] [address] WBC 31.7 10 3/mcL High 4.5-10.8 [facility] ([place]) Comment on above: Performed By: #### R BCP #### [place] [address] CVFLURVon 04-24-2024 FLU A PCR Negative Normal Negative [facility] ([place]) Comment on above: Performed By: #### C VFLURV ####[place] [address] FLU B PCR Negative Normal Negative [facility] ([place]) Comment on above: Performed By: #### C VFLURV ####[place] [address] RSV PCR Negative Normal Negative [facility] ([place]) Comment on above: Performed By: #### C VFLURV ####[place] [address] SARS-CoV-2 (COVID-19) RNA TL+probe Ql (Unsp spec) Negative Normal Negative [facility] ([place]) Comment on above: Result Comment: This test [...] positive results. Performed By: #### C VFLURV ####[place] [address] Robbin 04-24-2024 Ferritin [Mass/Vol] 440.5 ng/mL High 8.0-252.0 [facility] ([place]) Comment on above: Performed By: #### F ERR, FES ####[place] [address] FESon 04-24-2024 Iron [Mass/Vol] 26 ug/dL Low 50-170 [facility] ([place]) Comment on above: Performed By: #### F ERR, FES ####[place] [address] Iron Sat 15 % Normal [facility] ([place]) Comment on above: Performed By: #### F ERR, FES ####[place] [address] TIBC 168 mcg/dL Low 250-500 [facility] ([place]) Comment on above: Performed By: #### F ERR, FES ####[place] [address] HFPon 04-24-2024 Bili Indirect 0.2 mg/dL Normal 0.1-10.0 [facility] ([place]) Comment on above: Performed By: #### G FR, TROPHS, MG, HFP, LIPID, BMP ####[place] [address] Albumin Level 2.0 G/dL Low 3.2-4.8 [facility] ([place]) Comment on above: Performed By: #### G FR, TROPHS, MG, HFP, LIPID, BMP ####[address] [address] Albumin/Globulin [Mass ratio] 0.6 {ratio} Low 0.9-1.6 [facility] ([place]) Comment on above: Performed By: #### G FR, TROPHS, MG, HFP, LIPID, BMP ####[address] [address] ALP [Catalytic activity/Vol] 151 U/L High 38-126 [facility] ([place]) Comment on above: Performed By: #### G FR, TROPHS, MG, HFP, LIPID, BMP ####[address] [address] ALT [Catalytic activity/Vol] 350 U/L High 10-49 [facility] ([place]) Comment on above: Performed By: #### G FR, TROPHS, MG, HFP, LIPID, BMP ####[address] [address] AST [Catalytic activity/Vol] 595 U/L High 8-34 [facility] ([place]) Comment on above: Performed By: #### G FR, TROPHS, MG, HFP, LIPID, BMP ####[place] [address] Bili Direct 0.3 mg/dL Normal 0.0-0.4 [facility] ([place]) Comment on above: Result Comment: Use of this assay is not recommended for patients undergoing treatment with eltrombopag due to the potential for falsely elevated results. Performed By: #### G FR, TROPHS, MG, HFP, LIPID, BMP ####[place] [address] Bili Total 0.50 mg/dL Normal 0.20-1.20 [facility] ([place]) Comment on above: Result Comment: Use of this assay is not recommended for patients undergoing treatment with eltrombopag due to the potential for falsely elevated results. Performed By: #### G FR, TROPHS, MG, HFP, LIPID, BMP ####[place] [address] Globulin 3.4 G/dL Normal 1.5-3.8 [facility] ([place]) Comment on above: Performed By: #### G FR, TROPHS, MG, HFP, LIPID, BMP ####[place] [address] [place] [address] Total Protein 5.4 G/dL Low 5.7-8.2 [facility] ([place]) Comment on above: Result Comment: No te - New Reference Range in effect 20 Performed By: #### G FR, TROPHS, MG, HFP, LIPID, BMP ####[place] [address] [place] [address] LABORATORYOrdered By: SYSTEM SYSTEM on 04-24-2024 Troponin [...] 04-24-2024 Cholesterol [Mass/Vol] 71 mg/dL Normal 50-199 [facility] ([place]) Comment on above: Result Comment: Chol esterol Reference Interval: Less than 200 Desirable 200-239 Borderline high risk 240 and above High risk Performed By: #### G FR, TROPHS, MG, HFP, LIPID, BMP ####[place] [address] Cholesterol in HDL [Mass/Vol] 8 mg/dL Low 40-59 [facility] ([place]) Comment on above: Performed By: #### G FR, TROPHS, MG, HFP, LIPID, BMP ####[place] [address] Cholesterol in LDL [Mass/Vol] 44 mg/dL Normal 0-129 [facility] ([place]) Comment on above: Performed By: #### G FR, TROPHS, MG, HFP, LIPID, BMP ####[place] [address] Triglyceride [Mass/Vol] 96 mg/dL Normal 3-149 [facility] ([place]) Comment on above: Performed By: #### G FR, TROPHS, MG, HFP, LIPID, BMP ####[place] [address] MGon 04-24-2024 Magnesium [Mass/Vol] 1.6 mg/dL Normal 1.6-2.4 [facility] ([place]) Comment on above: Performed By: #### G FR, TROPHS, MG, HFP, LIPID, BMP ####[place] [address] OSMOSon 04-24-2024 Osmolality [Osmolality] 269 mosm/kg Low 275-300 [facility] ([place]) Comment on above: Performed By: #### O SMOS ####[place] [address] OSMOUon 04-24-2024 U Osmolality 315 mOsm/kg Low 390-1090 [facility] ([place]) Comment on above: Performed By: #### O SMOS #### [place] [address] TROPHSon 04-24-2024 High Sensitivity Troponin I 370 ng/L High 0-34 [facility] ([place]) Comment on above: Result Comment: High Sensitive Troponin I Reference Ranges: Female: 0-34 ng/L Male: 0-54 ng/L Testing performed on [employer] IM analyzer using direct chemiluminescent technology. Performed By: #### T EVELIO ####[address] [address] High Sensitivity Troponin I 374 ng/L High 0-34 [facility] ([place]) Comment on above: Result Comment: High Sensitive Troponin I Reference Ranges: Female: 0-34 ng/L Male: 0-54 ng/L Testing performed on [employer] IM analyzer using direct chemiluminescent technology. Performed By: #### T EVELIO ####[place] [address] High Sensitivity Troponin I 456 ng/L High 0-34 [facility] ([place]) Comment on above: Result Comment: High Sensitive Troponin I Reference Ranges: Female: 0-34 ng/L Male: 0-54 ng/L Testing performed on [employer] IM analyzer using direct chemiluminescent technology. Performed By: #### T EVELIO ####[place] [address] High Sensitivity Troponin I 611 ng/L High 0-34 [facility] ([place]) Comment on above: Result Comment: High Sensitive Troponin I Reference Ranges: Female: 0-34 ng/L Male: 0-54 ng/L Testing performed on [employer] IM analyzer using direct chemiluminescent technology. Performed By: #### G FR, TROPHS, MG, HFP, LIPID, BMP ####[place] [id number] .GFRon 04-23-2024 GFR 38 ml/min/1.73sqm Normal [facility] ([place]) Comment on above: Result Comment: GFR Population [...] DIFF, LAC, CBC, BMP, GFR ####[address] [place], [place] [address] GFR Non- 31 ml/min/1.73sqm Normal [facility] ([place]) Comment on above: Result Comment: GFR Population [...] PBNP, DIFF, LAC, CBC, BMP, GFR ####[address] [place], [place] [address] .MDWon 04-23-2024 Monocyte Distribution Width 23.84 High 0.00-20.00 [facility] ([place]) Comment on above: Result Comment: For adults in ED, MDW>20.0 may be associated with a higher risk of sepsis during the first 12hrs of hospital admission The predictive value of MDW for identifying sepsis in patients with hematological abnormalities has not been established Performed By: #### M DW, MORPH, TROPHS, PBNP, DIFF, LAC, CBC, BMP, GFR ####[address] [place], [place] [address] .Manual Diffon 04-23-2024 Bands 3.0 % Normal 0.0-5.0 [facility] ([place]) Comment on above: Performed By: #### M DW, MORPH, TROPHS, PBNP, DIFF, LAC, CBC, BMP, GFR ####[address] [place], [place] [address] Basophil %, Manual 0.0 % Normal 0.0-2.5 [facility] ([place]) Comment on above: Performed By: #### M DW, MORPH, TROPHS, PBNP, DIFF, LAC, CBC, BMP, GFR ####[address] [place], [place] [address] Basophil, Abs Manual 0.0 10 3/mcL Normal 0.0-0.2 [facility] ([place]) Comment on above: Performed By: #### M DW, MORPH, TROPHS, PBNP, DIFF, LAC, CBC, BMP, GFR ####[address] [place], [place] [address] Eosinophil %, Manual 0.0 % Normal 0.0-7.0 [facility] ([place]) Comment on above: Performed By: #### M DW, MORPH, TROPHS, PBNP, DIFF, LAC, CBC, BMP, GFR ####[address] [place], [place] [address] Eosinophil, Abs Manual 0.0 10 3/mcL Normal 0.0-0.4 [facility] ([place]) Comment on above: Performed By: #### M DW, MORPH, TROPHS, PBNP, DIFF, LAC, CBC, BMP, GFR ####[address] [place], [place] [address] Lymphocyte %, Manual 7.0 % Low 10.0-50.0 [facility] ([place]) Comment on above: Performed By: #### M DW, MORPH, TROPHS, PBNP, DIFF, LAC, CBC, BMP, GFR ####[address] [place], [place] [address] Lymphocyte, Abs Manual 1.7 10 3/mcL Normal 0.8-3.9 [facility] ([place]) Comment on above: Performed By: #### M DW, MORPH, TROPHS, PBNP, DIFF, LAC, CBC, BMP, GFR ####[address] [place], [place] [address] Monocyte %, Manual 3.0 % Normal 1.7-13.0 [facility] ([place]) Comment on above: Performed By: #### M DW, MORPH, TROPHS, PBNP, DIFF, LAC, CBC, BMP, GFR ####[address] [place], [place] [address] Monocyte, Abs Manual 0.7 10 3/mcL Normal 0.2-1.0 [facility] ([place]) Comment on above: Performed By: #### M DW, MORPH, TROPHS, PBNP, DIFF, LAC, CBC, BMP, GFR ####[address] [place], [place] [address] Neutrophil %, Manual 87.0 % High 37.0-80.0 [facility] ([place]) Comment on above: Performed By: #### M DW, MORPH, TROPHS, PBNP, DIFF, LAC, CBC, BMP, GFR ####[address] [place], [place] [address] Neutrophil, Abs Manual 21.1 10 3/mcL High 2.9-6.2 [facility] ([place]) Comment on above: Performed By: #### M DW, MORPH, TROPHS, PBNP, DIFF, LAC, CBC, BMP, GFR ####[address] [place], [place] [address] Nucleated RBC 0.0 /100 WBC Normal [facility] ([place]) Comment on above: Performed By: #### M DW, MORPH, TROPHS, PBNP, DIFF, LAC, CBC, BMP, GFR ####[address] [place], [place] [address] .Morphon 04-23-2024 Anisocytosis Ql (Bld) 1+ Normal [facility] ([place]) Comment on above: Performed By: #### M DW, MORPH, TROPHS, PBNP, DIFF, LAC, CBC, BMP, GFR ####[address] [place], [place] [address] Hypochrom 1+ Normal [facility] ([place]) Comment on above: Performed By: #### M DW, MORPH, TROPHS, PBNP, DIFF, LAC, CBC, BMP, GFR ####[address] [place], [place] [address] Ovalocytes 1+ Normal [facility] ([place]) Comment on above: Performed By: #### M DW, MORPH, TROPHS, PBNP, DIFF, LAC, CBC, BMP, GFR ####[address] [place], [place] [address] Platelet Estimate Normal Normal [facility] ([place]) Comment on above: Performed By: #### M DW, MORPH, TROPHS, PBNP, DIFF, LAC, CBC, BMP, GFR ####[address] [place], [place] [address] APTTon 04-23-2024 aPTT Coag (Bld) [Time] 30.0 s Normal 25.0-35.0 [facility] ([place]) Comment on above: Result Comment: For Heparin anticoagulation therapy, the recommended therapeutic range is: 45.4-75.9 seconds. Patients on heparin therapy may have an extreme result. Performed By: #### P RO ####[address] [place], [place] [address] Heparin dose (APTT) Unknown Normal [facility] ([place]) Comment on above: Performed By: #### P RO ####[address] [place], [place] [address] BMPon 04-23-2024 BUN/Creatinine Ratio 15 ratio Normal 7-27 [facility] ([place]) Comment on above: Performed By: #### M DW, MORPH, TROPHS, PBNP, DIFF, LAC, CBC, BMP, GFR ####[address] [place], [place] [address] Calcium [Mass/Vol] 8.6 mg/dL Normal 8.4-10.2 [facility] ([place]) Comment on above: Performed By: #### M DW, MORPH, TROPHS, PBNP, DIFF, LAC, CBC, BMP, GFR ####[address] [place], [place] [address] Chloride [Moles/Vol] 93 mmol/L Low 98-107 [facility] ([place]) Comment on above: Performed By: #### M DW, MORPH, TROPHS, PBNP, DIFF, LAC, CBC, BMP, GFR ####[address] [place], [place] [address] CO2 [Moles/Vol] 20 mmol/L Low 23-31 [facility] ([place]) Comment on above: Performed By: #### M DW, MORPH, TROPHS, PBNP, DIFF, LAC, CBC, BMP, GFR ####[address] [place], [place] [address] Creatinine [Mass/Vol] 1.62 mg/dL High 0.55-1.02 [facility] ([place]) Comment on above: Performed By: #### M DW, MORPH, TROPHS, PBNP, DIFF, LAC, CBC, BMP, GFR ####[address] [place], [place] [address] Electrolyte Balance 15.0 mEq/L Normal 4.0-15.0 [facility] ([place]) Comment on above: Performed By: #### M DW, MORPH, TROPHS, PBNP, DIFF, LAC, CBC, BMP, GFR ####[address] [place], [place] [address] Glucose [Mass/Vol] 119 mg/dL High 83-110 [facility] ([place]) Comment on above: Performed By: #### M DW, MORPH, TROPHS, PBNP, DIFF, LAC, CBC, BMP, GFR ####[address] [place], [place] [address] Potassium [Moles/Vol] 4.4 mmol/L Normal 3.5-5.1 [facility] ([place]) Comment on above: Performed By: #### M DW, MORPH, TROPHS, PBNP, DIFF, LAC, CBC, BMP, GFR ####[address] [place], [place] [address] Sodium [Moles/Vol] 128 mmol/L Low 136-145 [facility] ([place]) Comment on above: Performed By: #### M DW, MORPH, TROPHS, PBNP, DIFF, LAC, CBC, BMP, GFR ####[address] [place], [place] [address] Urea nitrogen [Mass/Vol] 25 mg/dL High 7-18 [facility] ([place]) Comment on above: Performed By: #### M DW, MORPH, TROPHS, PBNP, DIFF, LAC, CBC, BMP, GFR ####[address] [place], [place] [address] CBCon 04-23-2024 Erythrocyte distribution width (RBC) [Ratio] 16.2 % High 11.5-14.5 [facility] ([place]) Comment on above: Performed By: #### M DW, MORPH, TROPHS, PBNP, DIFF, LAC, CBC, BMP, GFR ####[address] [place], [place] [address] Hematocrit (Bld) [Volume fraction] 22.7 % Low 37.0-47.0 [facility] ([place]) Comment on above: Performed By: #### M DW, MORPH, TROPHS, PBNP, DIFF, LAC, CBC, BMP, GFR ####[address] [place], [place] [address] Hgb 7.6 G/dL Low 12.0-16.0 [facility] ([place]) Comment on above: Performed By: #### M DW, MORPH, TROPHS, PBNP, DIFF, LAC, CBC, BMP, GFR ####[address] [place], [place] [address] MCH (RBC) [Entitic mass] 32.3 pg High 27.0-31.2 [facility] ([place]) Comment on above: Performed By: #### M DW, MORPH, TROPHS, PBNP, DIFF, LAC, CBC, BMP, GFR ####[address] [place], [place] [address] MCHC 33.3 G/dL Normal 33.0-37.0 [facility] ([place]) Comment on above: Performed By: #### M DW, MORPH, TROPHS, PBNP, DIFF, LAC, CBC, BMP, GFR ####[address] [place], [place] [address] MCV (RBC) [Entitic vol] 96.8 fL High 80.0-94.0 [facility] ([place]) Comment on above: Performed By: #### M DW, MORPH, TROPHS, PBNP, DIFF, LAC, CBC, BMP, GFR ####[address] [place], [place] [address] Platelet 250 10 3/mcL Normal 130-400 [facility] ([place]) Comment on above: Performed By: #### M DW, MORPH, TROPHS, PBNP, DIFF, LAC, CBC, BMP, GFR ####Shahla [address] [place], [place] [address] Platelet mean volume (Bld) [Entitic vol] 9.4 fL Normal 7.4-10.4 [facility] ([place]) Comment on above: Performed By: #### M DW, MORPH, TROPHS, PBNP, DIFF, LAC, CBC, BMP, GFR ####Shahla [address] [place], [place] [address] RBC 2.35 10 6/mcL Low 4.20-5.40 [facility] ([place]) Comment on above: Performed By: #### M DW, MORPH, TROPHS, PBNP, DIFF, LAC, CBC, BMP, GFR ####Shahla [address] [place], [place] [address] WBC 23.5 10 3/mcL High 4.6-10.8 [facility] ([place]) Comment on above: Performed By: #### M DW, MORPH, TROPHS, PBNP, DIFF, LAC, CBC, BMP, GFR ####Shahla [address] [place], [place] [address] CT ANGIOGRAPHY CHEST W/CONTR [place] 04-23-2024 CT [...] 04/23/2024 11:18:34 PM Ordering Provider: KINGSTON VELASCO [facility] ([place]) LABORATORYOrdered By: Isabel Julien on 04-23-2024 aPTT [...] Comment on above: Interpretive Data: Won kendrick [employer] (CHEST, 1991, 102:312S-25S) [...] ng/L Male: 0-76 ng/L Testing performed on [employer] using a homogeneous sandwich chemiluminescent immunoassay based on [employer] technology. Anisocytosis Ql (Bld) 1+ *NA* (04/23/24 [...] Workflow SS Natriuretic peptide.B prohormone N-Terminal [Mass/Vol] 07005 pg/mL High 0 - 125 pg/mL AO [...] ng/L Male: 0-76 ng/L Testing performed on [employer] using a homogeneous sandwich chemiluminescent immunoassay based on [employer] technology. Urea nitrogen [Mass/Vol] 25 mg/dL High [...] Lactic Acid Lvl 1.9 mmol/L Normal 0.4-2.0 [facility] ([place]) Comment on above: Performed By: #### M DW, MORPH, TROPHS, PBNP, DIFF, LAC, CBC, BMP, GFR ####Shahla [address] [place] [id number] No Panel Informationon 04-23 GSANA Gram Negative Rods [facility] Microscopic examination of blood, culture Culture has been received in lab and is no growth to date. Routine cultures are held for 5 days. [facility] PBNPon 04-23-2024 Natriuretic peptide B (Bld) [Mass/Vol] 67285 pg/mL High 0-125 [facility] ([place]) Comment on above: Result Comment: NT-p roBNP results of less than 300 pg/mL effectively rules out acute congestive heart failure with 99% negative predictive value. Performed By: #### M DW, MORPH, TROPHS, PBNP, DIFF, LAC, CBC, BMP, GFR ####Shahla [address] [place], [place] [address] PROon 04-23-2024 PT Coag (PPP) [Time] 16.2 s High 9.0-14.4 [facility] ([place]) Comment on above: Performed By: #### P RO ####[place] [place], [place] [address] PT International Ratio 1.4 Normal [facility] ([place]) Comment on above: Result Comment: [employer] (CHEST, 1992, 102:312S-25S) recommended therapeutic range for oral anticoagulant therapy is: LOW RISK: Prophylaxis of venous thrombosis INR: 2.0-3.0 Treatment of pulmonary embolism 2.0-3.0 Prevention of systemic embolism 2.0-3.0 HIGH RISK: Mechanical prosthetic valves 2.5-3.5 Performed By: #### P RO ####[place] [address] [place], [place] [address] TROPHSon 04-23-2024 High Sensitivity Troponin I 478 ng/L High 0-51 [facility] ([place]) Comment on above: Result Comment: High Sensitive Troponin I Reference Ranges: Female: 0-51 ng/L Male: 0-76 ng/L Testing performed on [employer] using a homogeneous sandwich chemiluminescent immunoassay based on [employer] technology. Performed By: #### T ROPHS ####[place] [address] [place], [place] [address] High Sensitivity Troponin I 468 ng/L High 0-51 [facility] ([place]) Comment on above: Result Comment: High Sensitive Troponin I Reference Ranges: Female: 0-51 ng/L Male: 0-76 ng/L Testing performed on [employer] using a homogeneous sandwich chemiluminescent immunoassay based on [employer] technology. Performed By: #### M DW, MORPH, TROPHS, PBNP, DIFF, LAC, CBC, BMP, GFR ####Shahla [address] [place], [place] [address] XR CHEST 1 VIEWon 04-23-2024 XR CHEST [...] 04/23/2024 9:49:22 PM Ordering Provider: KINGSTON Francisco [facility] ([place]) .Auto Diffon 04-21-2024 Basophil, Absolute 0.0 10 3/mcL Normal 0.0-0.2 [facility] ([place]) Comment on above: Performed By: #### B 12 ####[address] [address]#### GFR, CBC, ANEU, BMP, MG, ADIFF ####Shahla [address] [place], [place] [address] Basophils/100 WBC (Bld) 0.3 % Normal 0.0-2.5 [facility] ([place]) Comment on above: Performed By: #### B 12 ####[address] [address]#### GFR, CBC, ANEU, BMP, MG, ADIFF ####[facility] [place], [place] [address] Eosinophil, Absolute 0.0 10 3/mcL Normal 0.0-0.4 [facility] ([place]) Comment on above: Performed By: #### B 12 ####[place] [address]#### GFR, CBC, ANEU, BMP, MG, ADIFF ####[facility] [place], [place] [address] Eosinophils/100 WBC (Bld) 0.4 % Normal 0.0-7.0 [facility] ([place]) Comment on above: Performed By: #### B 12 ####[place] [address]#### GFR, CBC, ANEU, BMP, MG, ADIFF ####[address] [address] Lymphocyte, Absolute 0.8 10 3/mcL Normal 0.8-3.9 [facility] ([place]) Comment on above: Performed By: #### B 12 ####[place] [address]#### GFR, CBC, ANEU, BMP, MG, ADIFF ####[address] [address] Lymphocytes/100 WBC (Bld) 7.6 % Low 10.0-50.0 [facility] ([place]) Comment on above: Performed By: #### B 12 ####[place] [address]#### GFR, CBC, ANEU, BMP, MG, ADIFF ####[facility] [place], [place] [address] Monocyte, Absolute 1.0 10 3/mcL Normal 0.2-1.0 [facility] ([place]) Comment on above: Performed By: #### B 12 ####[place] [address]#### GFR, CBC, ANEU, BMP, MG, ADIFF ####[address] [address] Monocytes/100 WBC (Bld) 8.8 % Normal 1.7-13.0 [facility] ([place]) Comment on above: Performed By: #### B 12 ####[address] [address]#### GFR, CBC, ANEU, BMP, MG, ADIFF ####Shahla [address] [place], [place] [address] Neutrophils/100 WBC (Bld) 82.9 % High 37.0-80.0 [facility] ([place]) Comment on above: Performed By: #### B 12 ####[address] [address]#### GFR, CBC, ANEU, BMP, MG, ADIFF ####[facility] [place], [place] [address] .GFRon 04-21-2024 GFR Non- 48 ml/min/1.73sqm Normal [facility] ([place]) Comment on above: Result Comment: GFR Population [...] square meters Performed By: #### B 12 ####[address] [address]#### GFR, CBC, ANEU, BMP, MG, ADIFF ####[facility] [place], [place] [address] GFR 58 ml/min/1.73sqm Normal [facility] ([place]) Comment on above: Result Comment: GFR Population [...] square meters Performed By: #### B 12 ####[address] [address]#### GFR, CBC, ANEU, BMP, MG, ADIFF ####[place] [address] [place], [place] [address] .NEUABSon 04-21-2024 Neutrophil, Absolute 9.2 10 3/mcL High 2.9-6.2 [facility] ([place]) Comment on above: Performed By: #### B 12 ####[place] [address]#### GFR, CBC, ANEU, BMP, MG, ADIFF ####[place] [address] [place], [place] [address] B12on 04-21-2024 Cobalamin (Vitamin B12) [Mass/Vol] 1197 pg/mL High 211-911 [facility] ([place]) Comment on above: Performed By: #### B 12 ####[place] [address]#### GFR, CBC, ANEU, BMP, MG, ADIFF ####[place] [address] [place], [place] [address] BMPon 04-21-2024 BUN/Creatinine Ratio 17 ratio Normal 7-27 [facility] ([place]) Comment on above: Performed By: #### B 12 ####[address] [address]#### GFR, CBC, ANEU, BMP, MG, ADIFF ####[place] [address] [place], [place] [address] Calcium [Mass/Vol] 8.3 mg/dL Low 8.4-10.2 [facility] ([place]) Comment on above: Performed By: #### B 12 ####[place] [address]#### GFR, CBC, ANEU, BMP, MG, ADIFF ####[place] [address] [place], [place] [address] Chloride [Moles/Vol] 102 mmol/L Normal 98-107 [facility] ([place]) Comment on above: Performed By: #### B 12 ####[place] [address]#### GFR, CBC, ANEU, BMP, MG, ADIFF ####[place] [address] [place] [address] CO2 [Moles/Vol] 21 mmol/L Low 23-31 [facility] ([place]) Comment on above: Performed By: #### B 12 ####[place] [address]#### GFR, CBC, ANEU, BMP, MG, ADIFF ####[place] [address] [place], [place] [address] Creatinine [Mass/Vol] 1.13 mg/dL High 0.55-1.02 [facility] ([place]) Comment on above: Performed By: #### B 12 ####[place] [address]#### GFR, CBC, ANEU, BMP, MG, ADIFF ####[place] [address] [place], [place] [address] Electrolyte Balance 11.0 mEq/L Normal 4.0-15.0 [facility] ([place]) Comment on above: Performed By: #### B 12 ####[place] [address]#### GFR, CBC, ANEU, BMP, MG, ADIFF ####[place] [address] [place], [place] [address] Glucose [Mass/Vol] 91 mg/dL Normal 83-110 [facility] ([place]) Comment on above: Performed By: #### B 12 ####[place] [address]#### GFR, CBC, ANEU, BMP, MG, ADIFF ####Shahla [address] [place], [place] [address] Potassium [Moles/Vol] 4.1 mmol/L Normal 3.5-5.1 [facility] ([place]) Comment on above: Performed By: #### B 12 ####[place] [address]#### GFR, CBC, ANEU, BMP, MG, ADIFF ####Shahla [address] [place], [place] [address] Sodium [Moles/Vol] 134 mmol/L Low 136-145 [facility] ([place]) Comment on above: Performed By: #### B 12 ####[place] [address]#### GFR, CBC, ANEU, BMP, MG, ADIFF ####Shahla [address] [place], [place] [address] Urea nitrogen [Mass/Vol] 19 mg/dL High 7-18 [facility] ([place]) Comment on above: Performed By: #### B 12 ####[place] [address]#### GFR, CBC, ANEU, BMP, MG, ADIFF ####Shahla [address] [place], [place] [address] CBCon 04-21-2024 Erythrocyte distribution width (RBC) [Ratio] 16.4 % High 11.5-14.5 [facility] ([place]) Comment on above: Performed By: #### B 12 ####[place] [address]#### GFR, CBC, ANEU, BMP, MG, ADIFF ####Shahla [address] [place], [place] [address] Hematocrit (Bld) [Volume fraction] 23.8 % Low 37.0-47.0 [facility] ([place]) Comment on above: Performed By: #### B 12 ####[place] [address]#### GFR, CBC, ANEU, BMP, MG, ADIFF ####[place] [address] [place], [place] [address] Hgb 8.1 G/dL Low 12.0-16.0 [facility] ([place]) Comment on above: Performed By: #### B 12 ####[place] [address]#### GFR, CBC, ANEU, BMP, MG, ADIFF ####Shahla [address] [place], [place] [address] MCH (RBC) [Entitic mass] 32.5 pg High 27.0-31.2 [facility] ([place]) Comment on above: Performed By: #### B 12 ####[place] [address]#### GFR, CBC, ANEU, BMP, MG, ADIFF ####[facility] [place] [id number] MCHC 33.8 G/dL Normal 33.0-37.0 [facility] ([place]) Comment on above: Performed By: #### B 12 ####[place] [address]#### GFR, CBC, ANEU, BMP, MG, ADIFF ####[facility] [place], [place] [address] MCV (RBC) [Entitic vol] 96.1 fL High 80.0-94.0 [facility] ([place]) Comment on above: Performed By: #### B 12 ####[place] [address]#### GFR, CBC, ANEU, BMP, MG, ADIFF ####[facility] [place] [id number] Platelet 170 10 3/mcL Normal 130-400 [facility] ([place]) Comment on above: Performed By: #### B 12 ####[place] [address]#### GFR, CBC, ANEU, BMP, MG, ADIFF ####Shahla [address] [place], [place] [address] Platelet mean volume (Bld) [Entitic vol] 9.3 fL Normal 7.4-10.4 [facility] ([place]) Comment on above: Performed By: #### B 12 ####[place] [address]#### GFR, CBC, ANEU, BMP, MG, ADIFF ####Shahla [address] [place] [address] RBC 2.48 10 6/mcL Low 4.20-5.40 [facility] ([place]) Comment on above: Performed By: #### B 12 ####[place] [address]#### GFR, CBC, ANEU, BMP, MG, ADIFF ####[place] [address] [place] [address] WBC 11.1 10 3/mcL High 4.6-10.8 [facility] ([place]) Comment on above: Performed By: #### B 12 ####[place] [address]#### GFR, CBC, ANEU, BMP, MG, ADIFF ####Shahla [address] [place] [address] LABORATORYOrdered By: SYSTEM SYSTEM on 04-21-2024 Basophil, [...] 04-21-2024 Magnesium [Mass/Vol] 1.8 mg/dL Normal 1.8-2.4 [facility] ([place]) Comment on above: Performed By: #### B 12 ####[address] [address]#### GFR, CBC, ANEU, BMP, MG, ADIFF ####[facility] [place], [place] [address] .Auto Diffon 04-20-2024 Basophil, Absolute 0.0 10 3/mcL Normal 0.0-0.2 [facility] ([place]) Comment on above: Performed By: #### R BCP #### [address] [address] Basophils/100 WBC (Bld) 0.2 % Normal 0.0-2.5 [facility] ([place]) Comment on above: Performed By: #### R BCP #### [address] [address] Eosinophil, Absolute 0.0 10 3/mcL Normal 0.0-0.4 [facility] ([place]) Comment on above: Performed By: #### R BCP #### [address] [address] Eosinophils/100 WBC (Bld) 0.0 % Normal 0.0-7.0 [facility] ([place]) Comment on above: Performed By: #### R BCP #### [address] [address] Lymphocyte, Absolute 1.0 10 3/mcL Normal 0.8-3.9 [facility] ([place]) Comment on above: Performed By: #### R BCP #### [address] [address] Lymphocytes/100 WBC (Bld) 8.7 % Low 10.0-50.0 [facility] ([place]) Comment on above: Performed By: #### R BCP #### [address] [address] Monocyte, Absolute 1.0 10 3/mcL Normal 0.2-1.0 [facility] ([place]) Comment on above: Performed By: #### R BCP #### [address] [address] Monocytes/100 WBC (Bld) 8.8 % Normal 1.7-13.0 [facility] ([place]) Comment on above: Performed By: #### R BCP #### [address] [address] Neutrophils/100 WBC (Bld) 82.3 % High 37.0-80.0 [facility] ([place]) Comment on above: Performed By: #### R BCP #### [address] [address] .GFRon 04-20-2024 GFR 53 ml/min/1.73sqm Normal [facility] ([place]) Comment on above: Result Comment: [...] meters Performed By: #### R BCP #### [address] [address] GFR Non- 44 ml/min/1.73sqm Normal [facility] ([place]) Comment on above: Result Comment: [...] meters Performed By: #### R BCP #### [address] [address] .NEUABSon 04-20-2024 Neutrophil, Absolute 9.2 10 3/mcL High 2.9-6.2 [facility] ([place]) Comment on above: Performed By: #### R BCP #### [place] [id number] BMPon 04-20-2024 BUN/Creatinine Ratio 18 ratio Normal 7-27 [facility] ([place]) Comment on above: Performed By: #### R BCP #### [place] [phone] Calcium [Mass/Vol] 8.4 mg/dL Normal 8.4-10.2 [facility] ([place]) Comment on above: Performed By: #### R BCP #### [address] [address] Chloride [Moles/Vol] 95 mmol/L Low 98-107 [facility] ([place]) Comment on above: Performed By: #### R BCP #### [place] [phone] CO2 [Moles/Vol] 22 mmol/L Low 23-31 [facility] ([place]) Comment on above: Performed By: #### R BCP #### [address] [address] Creatinine [Mass/Vol] 1.22 mg/dL High 0.55-1.02 [facility] ([place]) Comment on above: Performed By: #### R BCP #### [place] [phone] Electrolyte Balance 11.0 mEq/L Normal 4.0-15.0 [facility] ([place]) Comment on above: Performed By: #### R BCP #### [address] [address] Glucose [Mass/Vol] 91 mg/dL Normal 83-110 [facility] ([place]) Comment on above: Performed By: #### R BCP #### [place] [phone] Potassium [Moles/Vol] 3.8 mmol/L Normal 3.5-5.1 [facility] ([place]) Comment on above: Performed By: #### R BCP #### [address] [address] Sodium [Moles/Vol] 128 mmol/L Low 136-145 [facility] ([place]) Comment on above: Performed By: #### R BCP #### [place] [phone] Urea nitrogen [Mass/Vol] 22 mg/dL High 7-18 [facility] ([place]) Comment on above: Performed By: #### R BCP #### [place] [id number] CBCon 04-20-2024 Erythrocyte distribution width (RBC) [Ratio] 16.5 % High 11.5-14.5 [facility] ([place]) Comment on above: Performed By: #### R BCP #### [address] [address] Hematocrit (Bld) [Volume fraction] 26.2 % Low 37.0-47.0 [facility] ([place]) Comment on above: Performed By: #### R BCP #### [place] [phone] Hgb 8.9 G/dL Low 12.0-16.0 [facility] ([place]) Comment on above: Performed By: #### R BCP #### [place] [phone] MCH (RBC) [Entitic mass] 32.7 pg High 27.0-31.2 [facility] ([place]) Comment on above: Performed By: #### R BCP #### [place] [phone] MCHC 33.9 G/dL Normal 33.0-37.0 [facility] ([place]) Comment on above: Performed By: #### R BCP #### [address] [address] MCV (RBC) [Entitic vol] 96.6 fL High 80.0-94.0 [facility] ([place]) Comment on above: Performed By: #### R BCP #### [place] [address] Platelet 171 10 3/mcL Normal 130-400 [facility] ([place]) Comment on above: Performed By: #### R BCP #### [place] [address] Platelet mean volume (Bld) [Entitic vol] 9.2 fL Normal 7.4-10.4 [facility] ([place]) Comment on above: Performed By: #### R BCP #### [place] [address] RBC 2.72 10 6/mcL Low 4.20-5.40 [facility] ([place]) Comment on above: Performed By: #### R BCP #### [place] [phone] WBC 11.2 10 3/mcL High 4.6-10.8 [facility] ([place]) Comment on above: Performed By: #### R BCP #### [place] [address] LABORATORYOrdered By: Wilma Lawler on 04-20-2024 Hemoglobin.gastroint [...] ng/L Male: 0-76 ng/L Testing performed on [employer] using a homogeneous sandwich chemiluminescent immunoassay based on [employer] technology. Urea nitrogen [Mass/Vol] 22 mg/dL High 7 - 18 mg/dL AO ADM SS Urea nitrogen/Creatinine [Mass ratio] 18 ratio Normal 7 - 27 ratio AO ADM SS WBC (Bld) [#/Vol] 11.2 103/mcL High 4.6 - 10.8 10^3/mcL AO Workflow SS MGon 04-20-2024 Magnesium [Mass/Vol] 1.8 mg/dL Normal 1.8-2.4 [facility] ([place]) Comment on above: Performed By: #### R BCP #### [place] [address] NAURon 04-20-2024 Sodium [Moles/Vol] 10 mmol/L Low 20-110 [facility] ([place]) Comment on above: Performed By: #### N AUR ####Shahla [address] [address]#### OSMOU ####[address] [address] No Panel Informationon 04-20 Culture Urine >100,000 cfu/ml Escherichia coli ILIR to follow [facility] OCC (LAB)on 04-20-2024 Occult Blood Fecal Negative Normal Negative [facility] ([place]) Comment on above: Performed By: #### O CC ####[place] [address] [place], [place] [address] OSMOSon 04-20-2024 Osmolality [Osmolality] 270 mosm/kg Low 275-300 [facility] ([place]) Comment on above: Performed By: #### O SMOS #### [address] [address] OSMOUon 04-20-2024 U Osmolality 321 mOsm/kg Low 390-1090 [facility] ([place]) Comment on above: Performed By: #### N AUR ####[address] [address]#### OSMOU ####[address] [address] TROPHSon 04-20-2024 High Sensitivity Troponin I 47 ng/L Normal 0-51 [facility] ([place]) Comment on above: Result Comment: High Sensitive Troponin I Reference Ranges: Female: 0-51 ng/L Male: 0-76 ng/L Testing performed on [employer] using a homogeneous sandwich chemiluminescent immunoassay based on [employer] technology. Performed By: #### R BCP #### [place] [address] .Auto Diffon 04-19-2024 Basophil, Absolute 0.0 10 3/mcL Normal 0.0-0.2 [facility] ([place]) Comment on above: Performed By: #### C MP, ADIFF, CK, CBC, GFR, MDW, ANEU, TROPHS, LIP ####Shahla [address] [place], [place] [address] Basophils/100 WBC (Bld) 0.4 % Normal 0.0-2.5 [facility] ([place]) Comment on above: Performed By: #### C MP, ADIFF, CK, CBC, GFR, MDW, ANEU, TROPHS, LIP ####Shahla [address] [place], [place] [address] Eosinophil, Absolute 0.0 10 3/mcL Normal 0.0-0.4 [facility] ([place]) Comment on above: Performed By: #### C MP, ADIFF, CK, CBC, GFR, MDW, ANEU, TROPHS, LIP ####Shahla [address] [place], [place] [address] Eosinophils/100 WBC (Bld) 0.1 % Normal 0.0-7.0 [facility] ([place]) Comment on above: Performed By: #### C MP, ADIFF, CK, CBC, GFR, MDW, ANEU, TROPHS, LIP ####Shahla [address] [place], [place] [address] Lymphocyte, Absolute 0.9 10 3/mcL Normal 0.8-3.9 [facility] ([place]) Comment on above: Performed By: #### C MP, ADIFF, CK, CBC, GFR, MDW, ANEU, TROPHS, LIP ####Shahla [address] [place], [place] [address] Lymphocytes/100 WBC (Bld) 7.2 % Low 10.0-50.0 [facility] ([place]) Comment on above: Performed By: #### C MP, ADIFF, CK, CBC, GFR, MDW, ANEU, TROPHS, LIP ####Sh[address]la [address] [place], [place] [address] Monocyte, Absolute 1.2 10 3/mcL High 0.2-1.0 [facility] ([place]) Comment on above: Performed By: #### C MP, ADIFF, CK, CBC, GFR, MDW, ANEU, TROPHS, LIP ####Shahla [address] [place], [place] [address] Monocytes/100 WBC (Bld) 9.9 % Normal 1.7-13.0 [facility] ([place]) Comment on above: Performed By: #### C MP, ADIFF, CK, CBC, GFR, MDW, ANEU, TROPHS, LIP ####Shahla [address] [place], [place] [address] Neutrophils/100 WBC (Bld) 82.4 % High 37.0-80.0 [facility] ([place]) Comment on above: Performed By: #### C MP, ADIFF, CK, CBC, GFR, MDW, ANEU, TROPHS, LIP ####Shahla [address] [place], [place] [address] .GFRon 04-19-2024 GFR 48 ml/min/1.73sqm Normal [facility] ([place]) Comment on above: Result Comment: GFR Population [...] CBC, GFR, MDW, ANEU, TROPHS, LIP ####Shahla [address] [place], [place] [address] GFR Non- 40 ml/min/1.73sqm Normal [facility] ([place]) Comment on above: Result Comment: GFR Population [...] CBC, GFR, MDW, ANEU, TROPHS, LIP ####Shahla [address] [place], [place] [address] .Won 04-19-2024 Monocyte Distribution Width Not performed Normal 0.00-20.00 [facility] ([place]) Comment on above: Result Comment: W testing performed only on adult ER patients between the ages of 18-89 years. Performed By: #### C MP, ADIFF, CK, CBC, GFR, MDW, ANEU, TROPHS, LIP ####Shahla [address] [place], [place] [address] .NEUABSon 04-19-2024 Neutrophil, Absolute 9.8 10 3/mcL High 2.9-6.2 [facility] ([place]) Comment on above: Performed By: #### C MP, ADIFF, CK, CBC, GFR, MDW, ANEU, TROPHS, LIP ####Shahla [address] [place], [place] [address] .Urinalysis Microscopic (AO) on 04-19-2024 UA RBC 0-5 Abnormal None Seen [facility] ([place]) Comment on above: Performed By: #### U A, UAMICAO ####Sh[address]la [address] [place] [address] UA Squam Epithelial 0-5 Abnormal None Seen [facility] ([place]) Comment on above: Performed By: #### U A, UAMICAO ####Shahla [address] [place] [address] UA WBC 0-5 Abnormal None Seen [facility] ([place]) Comment on above: Performed By: #### U A, UAMICAO ####Shahla [address] [place] [id number] CBCon 04-19-2024 Erythrocyte distribution width (RBC) [Ratio] 16.4 % High 11.5-14.5 [facility] ([place]) Comment on above: Performed By: #### C MP, ADIFF, CK, CBC, GFR, MDW, ANEU, TROPHS, LIP ####Shahla [address] [place], [place] [address] Hematocrit (Bld) [Volume fraction] 26.7 % Low 37.0-47.0 [facility] ([place]) Comment on above: Performed By: #### C MP, ADIFF, CK, CBC, GFR, MDW, ANEU, TROPHS, LIP ####Shahla [address] [place] [id number] Hgb 8.9 G/dL Low 12.0-16.0 [facility] ([place]) Comment on above: Performed By: #### C MP, ADIFF, CK, CBC, GFR, MDW, ANEU, TROPHS, LIP ####Shahla [address] [place], [place] [address] MCH (RBC) [Entitic mass] 32.1 pg High 27.0-31.2 [facility] ([place]) Comment on above: Performed By: #### C MP, ADIFF, CK, CBC, GFR, MDW, ANEU, TROPHS, LIP ####Shahla [address] [place], [place] [address] MCHC 33.5 G/dL Normal 33.0-37.0 [facility] ([place]) Comment on above: Performed By: #### C MP, ADIFF, CK, CBC, GFR, MDW, ANEU, TROPHS, LIP ####Shahla [address] [place], [place] [address] MCV (RBC) [Entitic vol] 96.0 fL High 80.0-94.0 [facility] ([place]) Comment on above: Performed By: #### C MP, ADIFF, CK, CBC, GFR, MDW, ANEU, TROPHS, LIP ####[address] [place], [place] [address] Platelet 183 10 3/mcL Normal 130-400 [facility] ([place]) Comment on above: Performed By: #### C MP, ADIFF, CK, CBC, GFR, MDW, ANEU, TROPHS, LIP ####[id number] [place], [place] [address] Platelet mean volume (Bld) [Entitic vol] 9.0 fL Normal 7.4-10.4 [facility] ([place]) Comment on above: Performed By: #### C MP, ADIFF, CK, CBC, GFR, MDW, ANEU, TROPHS, LIP ####[address] [place], [place] [address] RBC 2.79 10 6/mcL Low 4.20-5.40 [facility] ([place]) Comment on above: Performed By: #### C MP, ADIFF, CK, CBC, GFR, MDW, ANEU, TROPHS, LIP ####Sh[address]la [address] [place], [place] [address] WBC 11.9 10 3/mcL High 4.6-10.8 [facility] ([place]) Comment on above: Performed By: #### C MP, ADIFF, CK, CBC, GFR, MDW, ANEU, TROPHS, LIP ####Sh[address]la [address] [place], [place] [address] CKon 04-19-2024 CK [Catalytic activity/Vol] 108 U/L Normal 26-192 [facility] ([place]) Comment on above: Performed By: #### C MP, ADIFF, CK, CBC, GFR, MDW, ANEU, TROPHS, LIP ####Sh[address] [place], [place] [address] CMPon 04-19-2024 Albumin Level 2.7 G/dL Low 3.4-4.8 [facility] ([place]) Comment on above: Performed By: #### C MP, ADIFF, CK, CBC, GFR, MDW, ANEU, TROPHS, LIP ####Sh[address] [place], [place] [address] Albumin/Globulin [Mass ratio] 0.7 {ratio} Low 1.1-2.5 [facility] ([place]) Comment on above: Performed By: #### C MP, ADIFF, CK, CBC, GFR, MDW, ANEU, TROPHS, LIP ####Sh[address] [place], [place] [address] ALP [Catalytic activity/Vol] 146 U/L High 40-135 [facility] ([place]) Comment on above: Performed By: #### C MP, ADIFF, CK, CBC, GFR, MDW, ANEU, TROPHS, LIP ####Shahla [address] [place], [place] [address] ALT [Catalytic activity/Vol] 40 U/L Normal 14-59 [facility] ([place]) Comment on above: Performed By: #### C MP, ADIFF, CK, CBC, GFR, MDW, ANEU, TROPHS, LIP ####Shahla [address] [place], [place] [address] AST [Catalytic activity/Vol] 33 U/L Normal 10-40 [facility] ([place]) Comment on above: Performed By: #### C MP, ADIFF, CK, CBC, GFR, MDW, ANEU, TROPHS, LIP ####Shahla [address] [place], [place] [address] Bili Total 0.6 mg/dL Normal 0.2-1.0 [facility] ([place]) Comment on above: Result Comment: Use of this assay is not recommended for patients undergoing treatment with eltrombopag due to the potential for falsely elevated results. Performed By: #### C MP, ADIFF, CK, CBC, GFR, MDW, ANEU, TROPHS, LIP ####Shahla [address] [place], [place] [address] BUN/Creatinine Ratio 21 ratio Normal 7-27 [facility] ([place]) Comment on above: Performed By: #### C MP, ADIFF, CK, CBC, GFR, MDW, ANEU, TROPHS, LIP ####Sh[address]la [address] [place], [place] [address] Calcium [Mass/Vol] 8.9 mg/dL Normal 8.4-10.2 [facility] ([place]) Comment on above: Performed By: #### C MP, ADIFF, CK, CBC, GFR, MDW, ANEU, TROPHS, LIP ####Shahla [address] [place], [place] [address] Chloride [Moles/Vol] 92 mmol/L Low 98-107 [facility] ([place]) Comment on above: Performed By: #### C MP, ADIFF, CK, CBC, GFR, MDW, ANEU, TROPHS, LIP ####Shahla [address] [place], [place] [address] CO2 [Moles/Vol] 24 mmol/L Normal 23-31 [facility] ([place]) Comment on above: Performed By: #### C MP, ADIFF, CK, CBC, GFR, MDW, ANEU, TROPHS, LIP ####Sh[address]la [address] [place], [place] [address] Creatinine [Mass/Vol] 1.32 mg/dL High 0.55-1.02 [facility] ([place]) Comment on above: Performed By: #### C MP, ADIFF, CK, CBC, GFR, MDW, ANEU, TROPHS, LIP ####[address] [place], [place] [address] Electrolyte Balance 11.0 mEq/L Normal 4.0-15.0 [facility] ([place]) Comment on above: Performed By: #### C MP, ADIFF, CK, CBC, GFR, MDW, ANEU, TROPHS, LIP ####Sh[address]la [address] [place], [place] [address] Globulin 4.1 G/dL Normal [facility] ([place]) Comment on above: Performed By: #### C MP, ADIFF, CK, CBC, GFR, MDW, ANEU, TROPHS, LIP ####Sh[address] [place], [place] [address] Glucose [Mass/Vol] 95 mg/dL Normal 83-110 [facility] ([place]) Comment on above: Performed By: #### C MP, ADIFF, CK, CBC, GFR, MDW, ANEU, TROPHS, LIP ####[address] [place], [place] [address] Potassium [Moles/Vol] 4.0 mmol/L Normal 3.5-5.1 [facility] ([place]) Comment on above: Performed By: #### C MP, ADIFF, CK, CBC, GFR, MDW, ANEU, TROPHS, LIP ####[address] [place], [place] [address] Sodium [Moles/Vol] 127 mmol/L Low 136-145 [facility] ([place]) Comment on above: Performed By: #### C MP, ADIFF, CK, CBC, GFR, MDW, ANEU, TROPHS, LIP ####Sh[address] [place], [place] [address] Total Protein 6.8 G/dL Normal 6.4-8.2 [facility] ([place]) Comment on above: Performed By: #### C MP, ADIFF, CK, CBC, GFR, MDW, ANEU, TROPHS, LIP ####Shahla [address] [place], [place] [address] Urea nitrogen [Mass/Vol] 28 mg/dL High 7-18 [facility] ([place]) Comment on above: Performed By: #### C MP, ADIFF, CK, CBC, GFR, MDW, ANEU, TROPHS, LIP ####Shahla [address] [place], [place] [address] CT HEAD OR BRAIN W/O CONTRAS Ton [...] Date: 04/19/2024 11:38:20 PM Ordering Provider: KARAN [facility]) CT SPINE CERVICAL W/O CONTRA Forrest [...] Date: 04/19/2024 11:32:28 PM Ordering Provider: KARAN [facility]) CVFLURVon 04-19-2024 FLU A PCR Negative Normal Negative [facility]) Comment on above: Performed By: #### C VFLURV ####Shahla [address] [place], [place] [address] FLU B PCR Negative Normal Negative [facility]) Comment on above: Performed By: #### C VFLURV ####Shahla [address] [place], [place] [address] RSV PCR Negative Normal Negative [facility]) Comment on above: Performed By: #### C VFLURV ####Sh[address]la [address] [place], [place] [address] SARS-CoV-2 (COVID-19) RNA TL+probe Ql (Unsp spec) Negative Normal Negative [facility] ([place]) Comment on above: Result Comment: Resu lts [...] inaccurate positive results. Performed By: #### C [facility] ####Shahla [address] [place], [place] [address] LABORATORYOrdered By: SYSTEM SYSTEM on 04-19-2024 Basophil, [...] ng/L Male: 0-76 ng/L Testing performed on [employer]anc[employer] using a homogeneous sandwich chemiluminescent immunoassay based on [employer] technology. Urea nitrogen [Mass/Vol] 28 mg/dL High [...] 04-19-2024 Lipase Level 66 U/L Normal 16-77 [facility] ([place]) Comment on above: Performed By: #### C MP, ADIFF, CK, CBC, GFR, MDW, ANEU, TROPHS, LIP ####Sh[address] [place], [place] [address] TROPHSon 04-19-2024 High Sensitivity Troponin I 60 ng/L High 0-51 [facility] ([place]) Comment on above: Result Comment: High Sensitive Troponin I Reference Ranges: Female: 0-51 ng/L Male: 0-76 ng/L Testing performed on [employer] using a homogeneous sandwich chemiluminescent immunoassay based on [employer] technology. Performed By: #### C MP, ADIFF, CK, CBC, GFR, MDW, ANEU, TROPHS, LIP ####Shahla [address] [place], [place] [address] UAon 04-19-2024 Color (U) Yellow Normal [facility] ([place]) Comment on above: Performed By: #### U A, UAMICAO ####[address] [place], [place] [address] Glucose (U) [Mass/Vol] Negative Normal Negative [facility] ([place]) Comment on above: Performed By: #### U A, UAMICAO ####[address] [place], [place] [address] Ketones Ql (U) Negative Normal Negative [facility] ([place]) Comment on above: Performed By: #### U A, UAMICAO ####[address] [place], [place] [address] UA Appear Clear Normal Clear [facility] ([place]) Comment on above: Performed By: #### U A, UAMICAO ####[address] [place], [place] [address] UA Blood Moderate Abnormal Negative [facility] ([place]) Comment on above: Performed By: #### U A, UAMICAO ####Shal[address] [place], [place] [address] UA Leuk Est Negative Normal Negative [facility] ([place]) Comment on above: Performed By: #### U A UAMICAO ####[address] [place], [place] [address] UA Nitrite Negative Normal Negative [facility] ([place]) Comment on above: Performed By: #### U Palmira UAMICAO ####Sh[address] [place], [place] [address] UA pH 5.5 Normal 5.0 - 8.0 [facility] ([place]) Comment on above: Performed By: #### U Palmira UAMICAO ####[address] [place], [place] [address] UA Protein 30 mg/dL Normal Negative [facility] ([place]) Comment on above: Performed By: #### U Palmira UAMICAO ####Sh[address] [place], [place] [address] UA Spec Grav 1.010 Abnormal 1.015-1.025 [facility] ([place]) Comment on above: Performed By: #### Kristen Chavis UAMICAO ####[address] [place], [place] [address] UA Specimen Type Clean Catch Normal [facility] ([place]) Comment on above: Performed By: #### Kristen Chavis UAMICAO ####[address] [place], [place] [address] UA Urobilinogen 0.2 E.U./dL Normal 0.2-1.0 [facility] ([place]) Comment on above: Performed By: #### U Palmira UAMICAO ####[address] [place], [place] [address] Urobilinogen (U) [Mass/Vol] Negative Normal Negative [facility] ([place]) Comment on above: Performed By: #### U Palmira UAMICAO ####[address] [place], [place] [address] XR CHEST 1 VIEWon 04-19-2024 XR CHEST [...] Date: 04/19/2024 11:32:35 PM Ordering Provider: KARAN [facility] ([place]) XR HIP LEFT W/PELVIS 4 VIEWS on [...] Date: 04/19/2024 11:31:45 PM Ordering Provider: KARAN [facility] ([place]) .Auto Diffon 04-16-2024 Basophil, Absolute 0.1 10 3/mcL Normal 0.0-0.2 [facility]) Comment on above: Performed By: #### C RP, ESR, CBC, ANEU, ADIFF ####[facility] [place], [place] [address] Basophils/100 WBC (Bld) 0.4 % Normal 0.0-2.5 [facility] ([place]) Comment on above: Performed By: #### C RP, ESR, CBC, ANEU, ADIFF ####Sh[address] [place], [place] [address] Eosinophil, Absolute 0.1 10 3/mcL Normal 0.0-0.4 [facility] ([place]) Comment on above: Performed By: #### C RP, ESR, CBC, ANEU, ADIFF ####Sh[address] [place], [place] [address] Eosinophils/100 WBC (Bld) 0.5 % Normal 0.0-7.0 [facility] ([place]) Comment on above: Performed By: #### C RP, ESR, CBC, ANEU, ADIFF ####Sh[address] [place], [place] [address] Lymphocyte, Absolute 1.3 10 3/mcL Normal 0.8-3.9 [facility] ([place]) Comment on above: Performed By: #### C RP, ESR, CBC, ANEU, ADIFF ####Sh[address] [place], [place] [address] Lymphocytes/100 WBC (Bld) 10.0 % Normal 10.0-50.0 [facility] ([place]) Comment on above: Performed By: #### C RP, ESR, CBC, ANEU, ADIFF ####Sh[address] [place], [place] [address] Monocyte, Absolute 1.0 10 3/mcL Normal 0.2-1.0 [facility] ([place]) Comment on above: Performed By: #### C RP, ESR, CBC, ANEU, ADIFF ####Sh[address] [place], [place] [address] Monocytes/100 WBC (Bld) 8.0 % Normal 1.7-13.0 [facility] ([place]) Comment on above: Performed By: #### C RP, ESR, CBC, ANEU, ADIFF ####[address] [place], [place] [address] Neutrophils/100 WBC (Bld) 81.1 % High 37.0-80.0 [facility] ([place]) Comment on above: Performed By: #### C RP, ESR, CBC, ANEU, ADIFF ####[address] [place], [place] [address] .NEUABSon 04-16-2024 Neutrophil, Absolute 10.3 10 3/mcL High 2.9-6.2 A [facility] ([place]) Comment on above: Performed By: #### C RP, ESR, CBC, ANEU, ADIFF ####[address] [place], [place] [address] CBCon 04-16-2024 Erythrocyte distribution width (RBC) [Ratio] 16.8 % High 11.5-14.5 [facility] ([place]) Comment on above: Performed By: #### C RP, ESR, CBC, ANEU, ADIFF ####Sh[address] [place], [place] [address] Hematocrit (Bld) [Volume fraction] 30.2 % Low 37.0-47.0 [facility] ([place]) Comment on above: Performed By: #### C RP, ESR, CBC, ANEU, ADIFF ####Sh[address] [place], [place] [address] Hgb 10.0 G/dL Low 12.0-16.0 [facility] ([place]) Comment on above: Performed By: #### C RP, ESR, CBC, ANEU, ADIFF ####[address] [place], [place] [address] MCH (RBC) [Entitic mass] 32.5 pg High 27.0-31.2 [facility] ([place]) Comment on above: Performed By: #### C RP, ESR, CBC, ANEU, ADIFF ####Sh[address] [place], [place] [address] MCHC 33.3 G/dL Normal 33.0-37.0 [facility] ([place]) Comment on above: Performed By: #### C RP, ESR, CBC, ANEU, ADIFF ####Sh[address] [place], [place] [address] MCV (RBC) [Entitic vol] 97.6 fL High 80.0-94.0 [facility] ([place]) Comment on above: Performed By: #### C RP, ESR, CBC, ANEU, ADIFF ####Shahla [address] [place], [place] [address] Platelet 243 10 3/mcL Normal 130-400 [facility] ([place]) Comment on above: Performed By: #### C RP, ESR, CBC, ANEU, ADIFF ####Sh[address]la [address] [place], [place] [address] Platelet mean volume (Bld) [Entitic vol] 9.1 fL Normal 7.4-10.4 [facility] ([place]) Comment on above: Performed By: #### C RP, ESR, CBC, ANEU, ADIFF ####Sh[address] [place], [place] [address] RBC 3.09 10 6/mcL Low 4.20-5.40 [facility] ([place]) Comment on above: Performed By: #### C RP, ESR, CBC, ANEU, ADIFF ####Sh[address]la [address] [place], [place] [address] WBC 12.7 10 3/mcL High 4.6-10.8 [facility] ([place]) Comment on above: Performed By: #### C RP, ESR, CBC, ANEU, ADIFF ####Sh[address] [place], [place] [address] CRPon 04-16-2024 C-Reactive Protein 5.8 mg/dL High 0.0-0.3 [facility] ([place]) Comment on above: Performed By: #### C RP, ESR, CBC, ANEU, ADIFF ####Shahla [address] [place], [place] [address] CT HIP W/O CONTRAST LEFTon 0 04-16-2024 [...] in the right femoral head on the supervisor customer records division image and 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 Suggest right hip CT or MRI 2 clarify and exclude this possibility. Interpreted by: Wolf Kenney MD Preliminary Report By: Wolf Kenney MD Electronically signed By Wolf Kenney MD Dictated Date: 04/16/2024 3:29:38 PM Prelim Date: 04/16/2024 3:37:27 PM Sign Date: 04/16/2024 3:37:27 PM Ordering Provider: SHWETHA Francisco [facility] ([place]) ESRon 04-16-2024 Erythrocyte Sed Rate 109 mm/hr High 0-30 [facility] ([place]) Comment on above: Performed By: #### C RP, ESR, CBC, ANEU, ADIFF ####Shahla [address] [place], [place] [address] XR HAND MINIMUM 3 VIEWS LEFT on [...] 03/03/2024 4:32:59 PM Ordering Provider: AKI TADEO [facility] ([place]) XR SPINE LUMBAR AP/LATon XR SPINE LUMBAR [...] 02/24/2024 4:20:13 PM Ordering Provider: LUIS ELLIOTT [facility] ([place]) XR HIP 2-3 VIEWS LEFTon 04-3 XR [...] Ren Gastelum MD Electronically signed By Ren Gasteulm MD Dictated Date: 02/18/2024 10:37:18 AM Prelim Date: 02/18/2024 10:38:19 AM Sign Date: 02/18/2024 10:38:19 AM Ordering Provider: LUIS Francisco [facility] ([place]) .Auto Diffon 02-17-2024 Basophil, Absolute 0.0 10 3/mcL Normal 0.0-0.2 [facility] ([place]) Comment on above: Performed By: #### O SMOS #### [address] [address] Basophils/100 WBC (Bld) 0.2 % Normal 0.0-2.5 [facility] ([place]) Comment on above: Performed By: #### O SMOS #### [address] [address] Eosinophil, Absolute 0.1 10 3/mcL Normal 0.0-0.4 [facility] ([place]) Comment on above: Performed By: #### O SMOS #### [address] [address] Eosinophils/100 WBC (Bld) 0.7 % Normal 0.0-7.0 [facility] ([place]) Comment on above: Performed By: #### O SMOS #### [address] [address] Lymphocyte, Absolute 1.5 10 3/mcL Normal 0.8-3.9 [facility] ([place]) Comment on above: Performed By: #### O SMOS #### [address] [address] Lymphocytes/100 WBC (Bld) 17.3 % Normal 10.0-50.0 [facility] ([place]) Comment on above: Performed By: #### O SMOS #### [address] [address] Monocyte, Absolute 0.6 10 3/mcL Normal 0.2-1.0 [facility] ([place]) Comment on above: Performed By: #### O SMOS #### [address] [address] Monocytes/100 WBC (Bld) 7.2 % Normal 1.7-13.0 [facility] ([place]) Comment on above: Performed By: #### O SMOS #### [address] [address] Neutrophils/100 WBC (Bld) 74.6 % Normal 37.0-80.0 [facility] ([place]) Comment on above: Performed By: #### O SMOS #### [address] [address] .GFRon 02-17-2024 GFR 50 ml/min/1.73sqm Normal [facility] ([place]) Comment on above: Result Comment: [...] meters Performed By: #### O SMOS #### [address] [address] GFR Non- 42 ml/min/1.73sqm Normal [facility] ([place]) Comment on above: Result Comment: [...] meters Performed By: #### O SMOS #### [address] [address] .NEUABSon 02-17-2024 Neutrophil, Absolute 6.4 10 3/mcL High 2.9-6.2 [facility] ([place]) Comment on above: Performed By: #### O SMOS #### [address] [address] BMPon 02-17-2024 BUN/Creatinine Ratio 20 ratio Normal 7-27 [facility] ([place]) Comment on above: Performed By: #### O SMOS #### [place] [id number] Calcium [Mass/Vol] 9.2 mg/dL Normal 8.4-10.2 [facility] ([place]) Comment on above: Performed By: #### O SMOS #### [place] [address] Chloride [Moles/Vol] 104 mmol/L Normal 98-107 [facility] ([place]) Comment on above: Performed By: #### O SMOS #### [place] [address] CO2 [Moles/Vol] 25 mmol/L Normal 23-31 [facility] ([place]) Comment on above: Performed By: #### O SMOS #### [place] [address] Creatinine [Mass/Vol] 1.27 mg/dL High 0.55-1.02 [facility] ([place]) Comment on above: Performed By: #### O SMOS #### [place] [id number] Electrolyte Balance 12.0 mEq/L Normal 4.0-15.0 [facility] ([place]) Comment on above: Performed By: #### O SMOS #### [place] [address] Glucose [Mass/Vol] 111 mg/dL High 83-110 [facility] ([place]) Comment on above: Performed By: #### O SMOS #### [address] [address] Potassium [Moles/Vol] 4.3 mmol/L Normal 3.5-5.1 [facility] ([place]) Comment on above: Performed By: #### O SMOS #### [address] [address] Sodium [Moles/Vol] 141 mmol/L Normal 136-145 [facility] ([place]) Comment on above: Performed By: #### O SMOS #### [address] [address] Urea nitrogen [Mass/Vol] 25 mg/dL High 7-18 [facility] ([place]) Comment on above: Performed By: #### O SMOS #### [address] [address] CBCon 02-17-2024 Erythrocyte distribution width (RBC) [Ratio] 16.5 % High 11.5-14.5 [facility] ([place]) Comment on above: Performed By: #### O SMOS #### [address] [address] Hematocrit (Bld) [Volume fraction] 33.3 % Low 37.0-47.0 [facility] ([place]) Comment on above: Performed By: #### O SMOS #### [address] [address] Hgb 11.1 G/dL Low 12.0-16.0 [facility] ([place]) Comment on above: Performed By: #### O SMOS #### [address] [address] MCH (RBC) [Entitic mass] 31.9 pg High 27.0-31.2 [facility] ([place]) Comment on above: Performed By: #### O SMOS #### [address] [address] MCHC 33.5 G/dL Normal 33.0-37.0 [facility] ([place]) Comment on above: Performed By: #### O SMOS #### [address] [address] MCV (RBC) [Entitic vol] 95.2 fL High 80.0-94.0 [facility] ([place]) Comment on above: Performed By: #### O SMOS #### [address] [address] Platelet 239 10 3/mcL Normal 130-400 [facility] ([place] Comment on above: Performed By: #### O SMOS #### [address] [address] Platelet mean volume (Bld) [Entitic vol] 9.8 fL Normal 7.4-10.4 [facility] ([place]) Comment on above: Performed By: #### O SMOS #### [place] [id number] RBC 3.49 10 6/mcL Low 4.20-5.40 [facility] ([place]) Comment on above: Performed By: #### O SMOS #### [address] [address] WBC 8.6 10 3/mcL Normal 4.6-10.8 [facility] ([place]) Comment on above: Performed By: #### O SMOS #### [address] [address] LABORATORYOrdered By: SYSTEM SYSTEM on 02-17-2024 Basophil, [...] [place] 08-30-2023 Gastrin 76.7 pg/mL Normal <115.0 [facility] ([place]) Comment on above: Result Comment: The Gastrin test was performed using the Siemens Immulite chemiluminescent immunometric method. Results obtained with different assay methods or kits cannot be used interchangeably. Performed By: [address] [address] Data Entry Operator: Lucio Chairez III, M.D. CLIA#: [id number] Performed By: #### G AST, RETO ####[address] [place], [place] [address] RETO (AO)on 08-29-2023 Immature Retic Fraction 0.45 IRF Normal 0.20-0.46 [facility] ([place]) Comment on above: Performed By: #### G AST, RETO ####Sh[address] [place], [place] [address] Reticulocytes, Auto 1.0 % Normal 0.2-2.3 [facility] ([place]) Comment on above: Performed By: #### G AST, RETO ####Sh[address] [place], [place] [address] METon 08-06-2023 Methylmalonic Acid, Blood 0.42 umol/l High <=0.40 [facility] ([place]) Comment on above: Result Comment: This test was developed and its performance characteristics determined by [facility] [place] [facility] It has not been cleared or approved by the FDA. [facility] is regulated under CLIA as qualified to perform high-complexity testing. This test is used for clinical purposes. It should not be regarded as investigational or for research. Performed By: [address] [address] Data Entry Operator: Lucio Chairez III, M.D. CLIA#: [id number] Performed By: #### R BCP #### [address] [address] .Auto Diffon 08-01-2023 Basophil, Absolute 0.0 10 3/mcL Normal 0.0-0.2 [facility] ([place]) Comment on above: Performed By: #### M MA, ANEU, CBC, GFR, ADIFF, BMP ####[place] [address]#### HOMO ####[address] [address] Basophils/100 WBC (Bld) 0.4 % Normal 0.0-2.5 [facility] ([place]) Comment on above: Performed By: #### Ranjit MA, ANEU, CBC, GFR, ADIFF, BMP ####[place] [address]#### HOMO ####[address] [address] Eosinophil, Absolute 0.1 10 3/mcL Normal 0.0-0.4 [facility] ([place]) Comment on above: Performed By: #### Ranjit MA, ANEU, CBC, GFR, ADIFF, BMP ####[place] [address]#### HOMO ####[address] [address] Eosinophils/100 WBC (Bld) 1.2 % Normal 0.0-7.0 [facility] ([place]) Comment on above: Performed By: #### Ranjit MA, ANEU, CBC, GFR, ADIFF, BMP ####[place] [address]#### HOMO ####[address] [address] Lymphocyte, Absolute 1.7 10 3/mcL Normal 0.8-3.9 [facility] ([place]) Comment on above: Performed By: #### Ranjit MA, ANEU, CBC, GFR, ADIFF, BMP ####[place] [address]#### HOMO ####[address] [address] Lymphocytes/100 WBC (Bld) 17.7 % Normal 10.0-50.0 [facility] ([place]) Comment on above: Performed By: #### Ranjit MA, ANEU, CBC, GFR, ADIFF, BMP ####Shahla [place] [address]#### HOMO ####[address] [address] Monocyte, Absolute 0.8 10 3/mcL Normal 0.2-1.0 [facility] ([place]) Comment on above: Performed By: #### Ranjit MA, ANEU, CBC, GFR, ADIFF, BMP ####Shahla [address] [place], [place] [address]#### HOMO ####[address] [address] Monocytes/100 WBC (Bld) 7.8 % Normal 1.7-13.0 [facility] ([place]) Comment on above: Performed By: #### Ranjit MA, ANEU, CBC, GFR, ADIFF, BMP ####Shahla [address] [address]#### HOMO ####[address] [address] Neutrophils/100 WBC (Bld) 72.9 % Normal 37.0-80.0 [facility] ([place]) Comment on above: Performed By: #### M MA, ANEU, CBC, GFR, ADIFF, BMP ####[address] [address]#### HOMO ####[address] [address] .GFRon 08-01-2023 GFR Non- 41 ml/min/1.73sqm Normal [facility] ([place]) Comment on above: Result Comment: GFR Population [...] M MA, ANEU, CBC, GFR, ADIFF, BMP ####[place] [address]#### HOMO ####[address] [address] GFR 50 ml/min/1.73sqm Normal [facility] ([place]) Comment on above: Result Comment: GFR Population [...] Ranjit GARDNER, ANEU, CBC, GFR, ADIFF, BMP ####[place] [address]#### HOMO ####[place] [address] .NEUABSon 08-01-2023 Neutrophil, Absolute 7.0 10 3/mcL High 2.9-6.2 [facility] ([place]) Comment on above: Performed By: #### Ranjit GARDNER ANEU, CBC, GFR, ADIFF, BMP ####[place] [address]#### HOMO ####[place] [address] BMPon 08-01-2023 BUN/Creatinine Ratio 12 ratio Normal 7-27 [facility] ([place]) Comment on above: Performed By: #### Ranjit MA, ANEU, CBC, GFR, ADIFF, BMP ####[place] [address]#### HOMO ####[place] [address] Calcium [Mass/Vol] 9.4 mg/dL Normal 8.4-10.2 [facility] ([place]) Comment on above: Performed By: #### Ranjit GARDNER ANEU, CBC, GFR, ADIFF, BMP ####[place] [address]#### HOMO ####[place] [address] Chloride [Moles/Vol] 105 mmol/L Normal 98-107 [facility] ([place]) Comment on above: Performed By: #### Ranjit GARDNER, ANEU, CBC, GFR, ADIFF, BMP ####[place] [address]#### HOMO ####[place] [address] CO2 [Moles/Vol] 28 mmol/L Normal 23-31 [facility] ([place]) Comment on above: Performed By: #### Ranjit GARDNER ANEU, CBC, GFR, ADIFF, BMP ####[place] [address]#### HOMO ####[place] [address] Creatinine [Mass/Vol] 1.29 mg/dL High 0.55-1.02 [facility] ([place]) Comment on above: Performed By: #### Ranjit GARDNER ANEU, CBC, GFR, ADIFF, BMP ####[place] [address]#### HOMO ####[place] [address] Electrolyte Balance 9.0 mEq/L Normal 4.0-15.0 [facility] ([place]) Comment on above: Performed By: #### Ranjit GADRNER ANEU, CBC, GFR, ADIFF, BMP ####[place] [address]#### HOMO ####[place] [address] Glucose [Mass/Vol] 97 mg/dL Normal 83-110 [facility] ([place]) Comment on above: Performed By: #### Ranjit GARDNER, ANEU, CBC, GFR, ADIFF, BMP ####[address] [address]#### HOMO ####[address] [address] Potassium [Moles/Vol] 4.9 mmol/L Normal 3.5-5.1 [facility] ([place]) Comment on above: Performed By: #### Ranjit GARDNER, ANEU, CBC, GFR, ADIFF, BMP ####[place] [address]#### HOMO ####[place] [address] Sodium [Moles/Vol] 142 mmol/L Normal 136-145 [facility] ([place]) Comment on above: Performed By: #### Ranjit GARDNER, ANEU, CBC, GFR, ADIFF, BMP ####[place] [address]#### HOMO ####[place] [address] Urea nitrogen [Mass/Vol] 15 mg/dL Normal 7-18 [facility] ([place]) Comment on above: Performed By: #### Ranjit GARDNER, ANEU, CBC, GFR, ADIFF, BMP ####[place] [address]#### HOMO ####[place] [address] CBCon 08-01-2023 Erythrocyte distribution width (RBC) [Ratio] 16.3 % High 11.5-14.5 [facility] ([place]) Comment on above: Performed By: #### Ranjit MA, ANEU, CBC, GFR, ADIFF, BMP ####[place] [address]#### HOMO ####[address] [address] Hematocrit (Bld) [Volume fraction] 33.4 % Low 37.0-47.0 [facility] ([place]) Comment on above: Performed By: #### M MA, ANEU, CBC, GFR, ADIFF, BMP ####[place] [address]#### HOMO ####[place] [address] Hgb 11.0 G/dL Low 12.0-16.0 [facility] ([place]) Comment on above: Performed By: #### Ranjit GARDNER, ANEU, CBC, GFR, ADIFF, BMP ####[place] [address]#### HOMO ####[place] [address] MCH (RBC) [Entitic mass] 31.4 pg High 27.0-31.2 [facility] ([place]) Comment on above: Performed By: #### Ranjit GARDNER, ANEU, CBC, GFR, ADIFF, BMP ####[place] [address]#### HOMO ####[place] [address] MCHC 32.9 G/dL Low 33.0-37.0 [facility] ([place]) Comment on above: Performed By: #### Ranjit GARDNER ANEU, CBC, GFR, ADIFF, BMP ####[place] [address]#### HOMO ####[place] [address] MCV (RBC) [Entitic vol] 95.4 fL High 80.0-94.0 [facility] ([place]) Comment on above: Performed By: #### Ranjit GARDNER, ANEU, CBC, GFR, ADIFF, BMP ####[place] [address]#### HOMO ####[place] [address] Platelet 229 10 3/mcL Normal 130-400 [facility] ([place]) Comment on above: Performed By: #### Ranjit GARDNER, ANEU, CBC, GFR, ADIFF, BMP ####[place] [address]#### HOMO ####[place] [address] Platelet mean volume (Bld) [Entitic vol] 10.0 fL Normal 7.4-10.4 [facility] ([place]) Comment on above: Performed By: #### M KENDRA, ANEU, CBC, GFR, ADIFF, BMP ####[place] [id number] [place] [address]#### HOMO ####[place] [address] RBC 3.50 10 6/mcL Low 4.20-5.40 [facility] ([place]) Comment on above: Performed By: #### Ranjit GARDNER, ANEU, CBC, GFR, ADIFF, BMP ####Shahla [id number] [place] [address]#### HOMO ####[place] [address] WBC 9.6 10 3/mcL Normal 4.6-10.8 [facility] ([place]) Comment on above: Performed By: #### Ranjit GARDNER, ANEU, CBC, GFR, ADIFF, BMP ####[place] [address]#### HOMO ####[place] [address] FEon 08-01-2023 Iron [Mass/Vol] 54 ug/dL Normal 50-170 [facility] ([place]) Comment on above: Performed By: #### F E, FERR ####Shahla [id number] [place] [id number] Robbin 08-01-2023 Ferritin [Mass/Vol] 74.0 ng/mL Normal 8.0-252.0 [facility] ([place]) Comment on above: Performed By: #### F E, FERR ####Shahla [id number] [place] [id number] HOMOon 08-01-2023 Homocysteine 16.4 umol/l High 3.7-13.9 [facility] ([place]) Comment on above: Result Comment: No te - New Reference Range in effect 20 Performed By: #### R BCP #### [place] [address] LABORATORYOrdered By: SYSTEM SYSTEM on 08-01-2023 Basophil, [...] MA MAMMOGRAM SCREENING BILATERAL W/ANTHONY ORIGINAL FROM: [address] [address] PROCEDURE FOR: HERB VALDES [address] [place] [id number] Home: PID#: [id number] Exam#: [id number] : 1955 Age: 68 TO: LUIS ELLIOTT APRN [facility] [place], [place] [address] Fax: NO FAX EXAMINATION: SCREENING DIGITAL BILATERAL [...] 06/25/2023 7:12:43 PM Ordering Provider: LUIS ELLIOTT Precision Machine Operator: RIA JOHNSON RT (R)(M) letter sent: Normal BI-RADS 1 and 2 Mammogram BI-RADS: 2 Benign Normal [facility] ([place]) BD BONE DENSITY DEXA AXIAL S [facility] 2023 BD BONE DENSITY DEXA AXIAL [...] 2023 3:45:59 PM Ordering Provider: LUIS ELLIOTT [facility] ([place]) LABORATORYOrdered By: Shanna Albarado on 05-29-2023 Albumin [...] Probable Contamination. Suggest recollection if clinically indicated. [facility] Vital Signs Date Time Vital Sign Value Performing Clinician Facility 08-05-2024 11:50-0400 Body temperature 97.7 [degF] DR MAGED PEDRO MD [facility] 08-05-2024 11:50-0400 Diastolic Blood Pressure Non-Invasive 89 mm[Hg] DR MAGED PEDRO MD [facility] 08-05-2024 11:50-0400 Heart rate 78 /min DR MAGED PEDRO MD [facility] 08-05-2024 11:50-0400 Reason For Taking VItal Signs DR MAGED PEDRO MD [facility] 08-05-2024 11:50-0400 Respiratory rate 18 /min DR MAGED PEDRO MD [facility] 08-05-2024 11:50-0400 Systolic Blood Pressure Non-Invasive 159 mm[Hg] DR MAGED PEDRO MD [facility] 08-05-2024 07:10-0400 Body temperature 97.7 [degF] DR MAGED PEDRO MD [facility] 08-05-2024 07:10-0400 Diastolic Blood Pressure Non-Invasive 76 mm[Hg] DR MAGED PEDRO MD [facility] 08-05-2024 07:10-0400 Heart rate 79 /min DR MAGED PEDRO MD [facility] 08-05-2024 07:10-0400 Respiratory rate 16 /min DR MAGED PEDRO MD [facility] 08-05-2024 07:10-0400 Systolic Blood Pressure Non-Invasive 126 mm[Hg] DR MAGED PEDRO MD [facility] 08-05-2024 04:21-0400 Body temperature 97.88 [degF] DR MAGED PEDRO MD [facility] 08-05-2024 04:21-0400 Diastolic Blood Pressure Non-Invasive 72 mm[Hg] DR MAGED PEDRO MD [facility] 08-05-2024 04:21-0400 Heart rate 58 /min DR MAGED PEDRO MD [facility] 08-05-2024 04:21-0400 Respiratory rate 16 /min DR MAGED PEDRO MD [facility] 08-05-2024 04:21-0400 Systolic Blood Pressure Non-Invasive 107 mm[Hg] DR MAGED PEDRO MD [facility] 08-04-2024 22:53-0400 Heart rate 78 /min DR MAGED PEDRO MD [facility] 08-04-2024 21:20-0400 Heart rate 78 /min DR MAGED PEDRO MD [facility] 08-04-2024 14:10-0400 Heart rate 70 /min DR MAGED PEDRO MD [facility] 08-04-2024 13:56-0400 Body height [address] MAGED PEDRO MD [facility] 08-04-2024 13:56-0400 Body weight [address] MAGED PEDRO MD [facility] 08-04-2024 13:56-0400 Body weight 23.42 kg/m2 DR MAGED PEDRO MD [facility] 08-04-2024 12:40-0400 Body temperature 96.8 [degF] DR MAGED PEDRO MD [facility] 08-04-2024 12:35-0400 Respiratory Rate - Anes 0 br/min DR MAGED PEDRO MD [facility] 08-04-2024 12:30-0400 Respiratory Rate - Anes 12 br/min DR MAGED PEDRO MD [facility] 08-04-2024 12:25-0400 Respiratory Rate - Anes 12 br/min DR MAGED PEDRO MD [facility] 08-04-2024 09:11-0400 Body height [address] MAGED PEDRO MD [facility] 08-04-2024 09:11-0400 Body temperature 97.16 [degF] DR MAGED PEDRO MD [facility] 08-04-2024 09:11-0400 Body weight [address] MAGED PEDRO MD [facility] 07-14-2024 12:52-0400 Blood Pressure Cuff Size DR MAGED PEDRO MD [facility] 07-14-2024 12:52-[address] MAGED PEDRO MD [facility] 07-14-2024 12:52-[address] MAGED Jimenez [facility] 07-14-2024 12:52-0400 Body height [address] MAGED PEDRO MD [facility] 07-14-2024 12:52-0400 Body weight 57.[address] MAGED PEDRO MD [facility] 07-14-2024 12:52-0400 Body weight 24.06 kg/m2 DR MAGED PEDRO MD [facility] 07-14-2024 12:52-0400 Diastolic Blood Pressure Non-Invasive 88 mm[Hg] DR MAGED PEDRO MD [facility] 07-14-2024 12:52-0400 Heart rate 67 /min DR MAGED PEDRO MD [facility] 07-14-2024 12:52-0400 Systolic Blood Pressure Non-Invasive 167 mm[Hg] DR MAGED PEDRO MD [facility] 06-17-2024 13:58-0400 Body height 155 cm Jaswinder Masci DO Work Phone: [facility] 06-17-2024 13:58-0400 Body mass index (BMI) [Ratio] 23.88 kg/m2 Jaswinder Masci DO Work Phone: [facility] 06-17-2024 13:58-0400 Body temperature 96.69 [degF] Jaswinder Masci DO Work Phone: [facility] 06-17-2024 13:58-0400 Body weight 57.38 kg Jaswinder Masci DO Work Phone: [facility] 06-17-2024 13:58-0400 Diastolic blood pressure 73 mm[Hg] Jaswinder Masci DO Work Phone: [facility] 06-17-2024 13:58-0400 Heart rate 71 /min Jaswinder Masci DO Work Phone: [facility] 06-17-2024 13:58-0400 SaO2% (BldA) [Mass fraction] 99 % Jaswinder Masci DO Work Phone: [facility] 06-17-2024 13:58-0400 Systolic blood pressure 127 mm[Hg] Jaswinder Masci DO Work Phone: [facility] 04-30-2024 14:34-0400 Blood Pressure Cuff Size CRISTIAN SOTO MD [facility] 04-30-2024 14:34-0400 Blood Pressure Location CRISTIAN SOTO MD [facility] 04-30-2024 14:34-0400 Blood Pressure Method CRISTIAN SOTO MD [facility] 04-30-2024 14:34-0400 Body temperature 98.06 [degF] CRISTIAN SOTO MD [facility] 04-30-2024 14:34-0400 Diastolic Blood Pressure Non-Invasive 70 mm[Hg] CRISTIAN SOTO MD [facility] 04-30-2024 14:34-0400 Heart rate 89 /min CRISTIAN SOTO MD [facility] 04-30-2024 14:34-0400 Reason For Taking VItal Signs CRISTIAN SOTO MD [facility] 04-30-2024 14:34-0400 Systolic Blood Pressure Non-Invasive 180 mm[Hg] CRISTIAN SOTO MD [facility] 04-30-2024 09:49-0400 Body temperature 97.88 [degF] CRISTIAN SOTO MD [facility] 04-30-2024 09:49-0400 Diastolic Blood Pressure Non-Invasive 82 mm[Hg] CRISTIAN SOTO MD [facility] 04-30-2024 09:49-0400 Heart rate 81 /min CRISTIAN SOTO MD [facility] 04-30-2024 09:49-0400 Reason For Taking VItal Signs CRISTIAN SOTO MD [facility] 04-30-2024 09:49-0400 Systolic Blood Pressure Non-Invasive 162 mm[Hg] CRISTIAN SOTO MD [facility] 04-30-2024 09:30-0400 Blood Pressure Cuff Size CRISTIAN SOTO MD [facility] 04-30-2024 09:30-0400 Blood Pressure Location CRISTIAN SOTO MD [address] [place] [address] 04-30-2024 09:30-0400 Blood Pressure Method CRISTIAN SOTO MD [address] [place] [address] 04-30-2024 09:30-0400 Diastolic Blood Pressure Non-Invasive 82 mm[Hg] CRISTIAN SOTO MD [address] [place] [address] 04-30-2024 09:30-0400 Systolic Blood Pressure Non-Invasive 162 mm[Hg] CRISTIAN SOTO MD [address] [place] [address] 04-30-2024 07:41-0400 Blood Pressure Cuff Size CRISTIAN SOTO MD [address] [place] [address] 04-30-2024 07:41-0400 Blood Pressure Location CRISTIAN SOTO MD [address] [place] [address] 04-30-2024 07:41-0400 Blood Pressure Method CRISTIAN SOTO MD [facility] 04-30-2024 06:40-0400 Body temperature 97.88 [degF] CRISTIAN SOTO MD [address] [place] [address] 04-30-2024 06:40-0400 Heart rate 81 /min CRISTIAN SOTO MD [facility] 04-30-2024 06:40-0400 Reason For Taking VItal Signs CRISTIAN SOTO MD [address] [place] [address] 04-29-2024 21:29-0400 Heart rate 72 /min CRISTIAN SOTO MD [address] [place] [address] 04-29-2024 21:29-0400 Respiratory rate 18 /min CRISTIAN SOTO MD [facility] 04-29-2024 14:51-0400 Body temperature 97.16 [degF] CRISTIAN SOTO MD [facility] 04-29-2024 14:51-0400 Respiratory rate 20 /min CRISTIAN SOTO MD [facility] 04-29-2024 07:06-0400 Respiratory rate 18 /min CRISTIAN SOTO MD [address] [place] [address] 04-26-2024 17:22-0400 Heart rate 73 /min CRISTIAN SOTO MD [address] [place] [address] 04-26-2024 11:58-0400 Heart rate 72 /min CRISTIAN SOTO MD [address] [place] [address] 04-26-2024 09:41-0400 Heart rate 70 /min CRISTIAN SOTO MD [address] [place] [address] 04-25-2024 15:23-0400 Body temperature 96.26 [degF] CRISTIAN SOTO MD [address] [place] [address] 04-25-2024 15:23-0400 Signs/Symptoms Transfusion Reaction CRISTIAN SOTO MD [address] [place] [address] 04-25-2024 14:35-0400 Body temperature 95 [degF] CRISTIAN SOTO MD [facility] 04-25-2024 14:35-0400 Diastolic blood pressure 58 mm[Hg] CRISTIAN SOTO MD [address] [place] [address] 04-25-2024 14:35-0400 Systolic blood pressure 116 mm[Hg] CRISTIAN SOTO MD [address] [place] [address] 04-25-2024 14:23-0400 Signs/Symptoms Transfusion Reaction No CRISTIAN SOTO MD [address] [place] [address] 04-25-2024 14:13-0400 Signs/Symptoms Transfusion Reaction CRISTIAN SOTO MD [facility] 04-25-2024 12:13-0400 Body temperature 95.18 [degF] CRISTIAN SOTO MD [facility] 04-24-2024 10:42-0400 Body temperature 97.7 [degF] CRISTIAN SOTO MD [facility] 04-24-2024 04:14-0400 Body height 155 cm CRISTIAN SOTO MD [facility] 04-24-2024 04:14-0400 Body weight 65.6 kg CRISTIAN SOTO MD [facility] 04-24-2024 04:14-0400 Body weight 27.3 kg/m2 CRISTIAN SOTO MD [facility] 04-24-2024 03:00-0400 Diastolic Blood Pressure Non-Invasive 84 mm[Hg] DR KINGSTON VELASCO MD [facility] 04-24-2024 03:00-0400 Respiratory rate 24 /min DR KINGSTON VELASCO MD [facility] 04-24-2024 03:00-0400 Systolic Blood Pressure Non-Invasive 171 mm[Hg] DR KINGSTON VELASCO MD [facility] 04-24-2024 02:55-0400 Respiratory rate 26 /min DR KINGSTON VELASCO MD [facility] 04-24-2024 02:28-0400 Blood Pressure Cuff Size DR KINGSTON VELASCO MD [facility] 04-24-2024 02:28-[address] KINGSTON VELASCO MD [facility] 04-24-2024 02:28-[address] KINGSTON VELASCO MD [facility] 04-24-2024 02:28-0400 Diastolic Blood Pressure Non-Invasive 95 mm[Hg] DR KINGSTON VELASCO MD [facility] 04-24-2024 02:28-0400 Heart rate 89 /min DR KINGSTON VELASCO MD [facility] 04-24-2024 02:28-0400 Respiratory rate 20 /min DR KINGSTON VELASCO MD [facility] 04-24-2024 02:28-0400 Systolic Blood Pressure Non-Invasive 178 mm[Hg] DR KINGSTON VELASCO MD [facility] 04-24-2024 01:11-0400 Blood Pressure Cuff Size DR KINGSTON VELASCO MD [facility] 04-24-2024 01:11-[address] KINGSTON VELASCO MD [facility] 04-24-2024 01:11-[address] KINGSTON VELASCO MD [facility] 04-24-2024 01:11-0400 Diastolic Blood Pressure Non-Invasive 77 mm[Hg] DR KINGSTON VELASCO MD [facility] 04-24-2024 01:11-0400 Heart rate 90 /min DR KINGSTON VELASCO MD [facility] 04-24-2024 01:11-0400 Systolic Blood Pressure Non-Invasive 157 mm[Hg] DR KINGSTON VELASCO MD [facility] 04-23-2024 20:03-0400 Body height [address] KINGSTON VELASCO MD [facility] 04-23-2024 20:03-0400 Body temperature 98.24 [degF] DR KINGSTON VELASCO MD [facility] 04-23-2024 20:03-0400 Body weight [address] KINGSTON VELASCO MD [facility] 04-21-2024 11:19-0400 Body temperature 98.24 [degF] MEGAN MIRAMONTES [employer] WE[employer]ER[employer]BUSINESS IMPROVEMENT MANAGER [facility] 04-21-2024 11:19-0400 Diastolic Blood Pressure Non-Invasive 88 mm[Hg] MEGAN MIRAMONTES [employer] WEAVER-BUSINESS IMPROVEMENT MANAGER [facility] 04-21-2024 11:19-0400 Heart rate 75 /min MEGAN MIRAMONTES [employer] WEAVER-BUSINESS IMPROVEMENT MANAGER [facility] 04-21-2024 11:19-0400 Respiratory rate 20 /min MEGAN MIRAMONTES [employer] LO[employer] WEAVER-BUSINESS IMPROVEMENT MANAGER [facility] 04-21-2024 11:19-0400 Systolic Blood Pressure Non-Invasive 130 mm[Hg] MEGAN MIRAMONTES [employer] LO[employer] WEAVER-BUSINESS IMPROVEMENT MANAGER [facility] 04-21-2024 07:44-0400 Blood Pressure Cuff Size MEGAN MIRAMONTES [employer] WEAVER-BUSINESS IMPROVEMENT MANAGER [facility] 04-21-2024 07:44-0400 Blood Pressure Location MEGAN MIRAMONTES [employer] WEAVER-BUSINESS IMPROVEMENT MANAGER [facility] 04-21-2024 07:44-0400 Blood Pressure Method MEGAN MIRAMONTES [employer] WEAVER-BUSINESS IMPROVEMENT MANAGER [facility] 04-21-2024 07:44-0400 Diastolic Blood Pressure Non-Invasive 78 mm[Hg] MEGAN MIRAMONTES [employer] WEAVER-BUSINESS IMPROVEMENT MANAGER [facility] 04-21-2024 07:44-0400 Systolic Blood Pressure Non-Invasive 124 mm[Hg] MEGAN MIRAMONTES [employer] WEAVER-BUSINESS IMPROVEMENT MANAGER [facility] 04-21-2024 07:30-0400 Body temperature 98.24 [degF] MEGAN MIRAMONTES [employer] WEAVER-BUSINESS IMPROVEMENT MANAGER [facility] 04-21-2024 07:30-0400 Diastolic Blood Pressure Non-Invasive 65 mm[Hg] MEGAN MIRAMONTES [employer] WEAVER-BUSINESS IMPROVEMENT MANAGER [facility] 04-21-2024 07:30-0400 Heart rate 78 /min MEGAN MIRAMONTES [employer] WEAVER-BUSINESS IMPROVEMENT MANAGER [facility] 04-21-2024 07:30-0400 Respiratory rate 20 /min MEGAN MIRAMONTES [employer] WEAVER-BUSINESS IMPROVEMENT MANAGER [facility] 04-21-2024 07:30-0400 Systolic Blood Pressure Non-Invasive 99 mm[Hg] MEGAN MIRAMONTES [employer] WEAVER-BUSINESS IMPROVEMENT MANAGER [facility] 04-21-2024 03:30-0400 Body temperature 97.7 [degF] MEGAN MIRAMONTES [employer] WEAVER-BUSINESS IMPROVEMENT MANAGER [facility] 04-21-2024 03:30-0400 Heart rate 76 /min MEGAN MIRAMONTES [employer] WEAVER-BUSINESS IMPROVEMENT MANAGER [facility] 04-21-2024 03:30-0400 Reason For Taking VItal Signs MEGAN MIRAMONTES [employer] WEAVER-BUSINESS IMPROVEMENT MANAGER [facility] 04-21-2024 03:30-0400 Respiratory rate 20 /min MEGAN MIRAMONTES [employer] LO[employer] WEAVER-BUSINESS IMPROVEMENT MANAGER [facility] 04-20-2024 23:13-0400 Heart rate 69 /min MEGAN MIRAMONTES [employer]LE LO[employer] WEAVER-BUSINESS IMPROVEMENT MANAGER [facility] 04-20-2024 23:13-0400 Reason For Taking VItal Signs MEGAN MIRAMONTES [employer]LE LO[employer] WEAVER-BUSINESS IMPROVEMENT MANAGER [facility] 04-20-2024 19:32-0400 Blood Pressure Cuff Size MEGAN MIRAMONTES [employer] WEAVER-BUSINESS IMPROVEMENT MANAGER [facility] 04-20-2024 19:32-0400 Blood Pressure Location MEGAN MIRAMONTES [employer] WEAVER-BUSINESS IMPROVEMENT MANAGER [facility] 04-20-2024 19:32-0400 Blood Pressure Method MEGAN MIRAMONTES [employer] WEAVER-BUSINESS IMPROVEMENT MANAGER [facility] 04-20-2024 19:24-0400 Reason For Taking VItal Signs MEGAN MIRAMONTES [employer] LO[employer] WEAVER-BUSINESS IMPROVEMENT MANAGER [facility] 04-20-2024 03:34-0400 Heart rate 85 /min MEGAN MIRAMONTES [employer] WEAVER-BUSINESS IMPROVEMENT MANAGER [facility] 04-20-2024 00:46-0400 Body height 155 cm MEGAN MIRAMONTES [employer] LO[employer] WEAVER-BUSINESS IMPROVEMENT MANAGER [facility] 04-20-2024 00:46-0400 Body weight 61.9 kg MEGAN MIRAMONTES [employer] WEAVER-BUSINESS IMPROVEMENT MANAGER [facility] 04-20-2024 00:46-0400 Body weight 25.76 kg/m2 MEGAN MIRAMONTES [employer] WEAVER-BUSINESS IMPROVEMENT MANAGER [facility] 04-20-2024 00:34-0400 Heart rate 86 /min MEGAN MIRAMONTES [employer] WEAVER-BUSINESS IMPROVEMENT MANAGER [facility] 04-19-2024 23:40-0400 Heart rate 91 /min MEGAN MIRAMONTES [employer] LOOM WEAVER-BUSINESS IMPROVEMENT MANAGER [facility] 04-19-2024 22:20-0400 Heart rate 83 /min MEGAN MIRAMONTES [employer] LO[employer] WEAVER-BUSINESS IMPROVEMENT MANAGER [facility] 06-25-2024 16:43-0400 Body height [address] TAE ALANIS MD [facility] 04-14-2024 16:43-0400 Body temperature 96.8 [degF] DR TAE ALANIS MD [facility] 04-14-2024 16:43-0400 Body weight [address] TAE ALANIS MD [facility] 04-14-2024 16:43-0400 Diastolic Blood Pressure Non-Invasive 66 mm[Hg] DR TAE ALANIS MD [facility] 04-14-2024 16:43-0400 Heart rate 75 /min DR TAE ALANIS MD [facility] 04-14-2024 16:43-0400 Respiratory rate 18 /min DR TAE ALANIS MD [facility] 04-14-2024 16:43-0400 Systolic Blood Pressure Non-Invasive 106 mm[Hg] DR TAE ALANIS MD [facility] 03-03-2024 16:40-0400 Body height 162.6 cm ZULY MASTERSROSENDA DO [facility] 03-03-2024 16:40-0400 Body temperature 97.16 [degF] ZULY FROMRUTH ANNT DO [facility] 03-03-2024 16:40-0400 Body weight 62 kg ZULY FROMRUTH ANNT DO [facility] 03-03-2024 16:40-0400 Diastolic Blood Pressure Non-Invasive 74 mm[Hg] ZULY FROMMELT DO [facility] 03-03-2024 16:40-0400 Heart rate 111 /min ZULY CASH DO [facility] 03-03-2024 16:40-0400 Respiratory rate 20 /min [facility] 03-03-2024 16:40-0400 Systolic Blood Pressure Non-Invasive 120 mm[Hg] [facility] 05-29-2022 08:38-0400 Diastolic blood pressure 74 mm[Hg] DR APRIL PABON MD [facility] 05-29-2022 08:38-0400 Heart rate 60 /min DR APRIL PABON MD [facility] 05-29-2022 08:38-0400 Mean blood pressure 90 mm[Hg] DR APRIL PABON MD [facility] 05-29-2022 08:38-0400 Respiratory rate 16 /min DR APRIL PABON MD [facility] 05-29-2022 08:38-0400 Systolic blood pressure 122 mm[Hg] DR APRIL PABON MD [facility] Encounters Encounter Date Encounter Type Care Provider Facility Start: 08-06-2024 ambulatory LUIS ELLIOTT NEEDLE LOOM WEAVER-BUSINESS IMPROVEMENT MANAGER Fa cility:[facility] Start: 08-04-2024 End: 08-05-[address] MAGED PEDRO MD Facility:[facility] Start: 08-04-2024 End: 08-05-[address] MAGED PEDRO MD [facility] Start: 07-14-2024 End: 07-14-[address] MAGED PEDRO MD [facility] Start: 07-14-2024 End: 07-14-[address] MAGED PEDRO MD Facility:[facility] Start: 06-25-2024 End: 08-04-2024 Telephone encounter Jaswinder Schmidt DO Work Phone: Hematology/Oncology Comment on above: Follow Up Start: 06-17-2024 End: 06-17-2024 ambulatory Jaswinder Schmidt DO Work Phone: Hematology/Oncology Comment on above: Single subsegmental pulmonary embolism without acute cor pulmonale (HCC) (Primary Dx) Start: 06-17-2024 End: 06-17-2024 Patient encounter procedure Jaswinder Schmidt DO Work Phone: Hematology/Oncology Start: 06-02-2024 End: 06-02-2024 ambulatory VELMA REYNOLDS NEEDLE LOOM WEAVER-BUSINESS IMPROVEMENT MANAGER Facility:B Start: 05-16-2024 End: 05-20-2024 ambulatory LUIS ELLIOTT NEEDLE LOOM WEAVER-BUSINESS IMPROVEMENT MANAGER Facility:B Start: 05-16-2024 End: 05-20-[address] TATIANA ACSEY DO [facility] Start: 05-01-2024 End: 06-02-2024 ambulatory LUIS ELLIOTT NEEDLE LOOM WEAVER-BUSINESS IMPROVEMENT MANAGER Facility:R Start: 04-24-2024 End: 04-30-2024 Evaluation and management of inpatient CRISTIAN SOTO MD [facility] Start: 04-23-2024 End: 04-24-2024 Emergency department patient visit DR KINGSTON VELASCO MD [facility] Start: 04-19-2024 End: 04-21-2024 Evaluation and management of inpatient MEGAN MIRAMONTES NEEDLE LOOM WEAVER-BUSINESS IMPROVEMENT MANAGER [facility] Start: 04-16-2024 End: 04-16-2024 ambulatory LUIS ELLIOTT NEEDLE LOOM WEAVER-BUSINESS IMPROVEMENT MANAGER Facility:B Start: 04-14-2024 End: 04-14-2024 Emergency department patient visit DR TAE ALANIS MD [facility] Start: 03-03-2024 End: 03-03-2024 Emergency department patient visit ZULY CASH DO [facility] Start: 02-21-2024 End: 02-21-2024 ambulatory LUIS BALTES NEEDLE LOOM WEAVER-BUSINESS IMPROVEMENT MANAGER Facility:B Start: 02-21-2024 End: 02-21-2024 Patient encounter procedure LUIS BALTES NEEDLE LOOM WEAVER-BUSINESS IMPROVEMENT MANAGER [facility] Start: 02-17-2024 End: 02-17-2024 ambulatory LUIS BALTES NEEDLE LOOM WEAVER-BUSINESS IMPROVEMENT MANAGER Facility:B Start: 02-17-2024 End: 02-17-2024 Patient encounter procedure LUIS BALTES NEEDLE LOOM WEAVER-BUSINESS IMPROVEMENT MANAGER [facility] Start: 08-29-2023 End: 08-29-2023 ambulatory LUIS BALTES NEEDLE LOOM WEAVER-BUSINESS IMPROVEMENT MANAGER Facility:B Start: 08-01-2023 End: 08-01-2023 ambulatory LUIS BALTES NEEDLE LOOM WEAVER-BUSINESS IMPROVEMENT MANAGER Facility:B Start: 08-01-2023 End: 08-01-2023 Patient encounter procedure LUIS BALTES NEEDLE LOOM WEAVER-BUSINESS IMPROVEMENT MANAGER [facility] Start: 2023 End: 2023 ambulatory LUIS BALTES NEEDLE LOOM WEAVER-BUSINESS IMPROVEMENT MANAGER Facility:B Start: 2023 End: 2023 Patient encounter procedure LUIS BALTES NEEDLE LOOM WEAVER-BUSINESS IMPROVEMENT MANAGER [facility] Start: 05-29-2023 End: 06-02-2023 Outreach Lab LUIS BALTES NEEDLE LOOM WEAVER-BUSINESS IMPROVEMENT MANAGER [facility] Start: 09-10-2022 End: 09-10-2022 Patient encounter procedure LUIS BALTES NEEDLE LOOM WEAVER-BUSINESS IMPROVEMENT MANAGER [facility] Start: 08-14-2022 End: 08-14-2022 Patient encounter procedure VELMA REYNOLDS NEEDLE LOOM WEAVER-BUSINESS IMPROVEMENT MANAGER [facility] Start: 05-29-2022 End: 05-29-[address] APRIL PABON MD [facility] Start: 05-24-2022 End: 05-24-2022 Patient encounter procedure LUIS TORRESFAITH NEEDLE LOOM WEAVER-BUSINESS IMPROVEMENT MANAGER [facility] Start: 05-02-2022 End: 05-02-2022 Patient encounter procedure LUIS TORRESFAITH NEEDLE LOOM WEAVER-BUSINESS IMPROVEMENT MANAGER [facility] Start: 05-01-2022 End: 05-01-2022 Patient encounter procedure LUIS EARL NEEDLE LOOM WEAVER-BUSINESS IMPROVEMENT MANAGER [facility] Start: 01-31-2022 End: 02-04-2022 Outreach Lab LUIS ELLIOTT NEEDLE LOOM WEAVER-BUSINESS IMPROVEMENT MANAGER [facility] Start: 01-31-2022 End: 01-31-2022 Patient encounter procedure LUIS TORRESFAITH NEEDLE LOOM WEAVER-BUSINESS IMPROVEMENT MANAGER [facility] Procedures Date Procedure Procedure Detail Performing Clinician Start: 08-04-2024 Total replacement of left hip joint DR MAGED PEDRO MD Start: 03-11-2023 Cardiac catheterization LUIS ELLIOTT NEEDLE LOOM WEAVER-BUSINESS IMPROVEMENT MANAGER Start: 03-11-2023 Placement of stent LUIS ELLIOTT NEEDLE LOOM WEAVER-BUSINESS IMPROVEMENT MANAGER Start: 01-04-2020 Endarterectomy LUIS CUEVAS NEEDLE LOOM WEAVER-BUSINESS IMPROVEMENT MANAGER Start: 02-06-2017 Nerve conduction study LUIS ELLIOTT [employer] Comment on above: [facility];abn Start: 12-12-2016 CT angiography of ne ck vessels LUIS ELLIOTT NEEDLE LOOM WEAVER-[employer] Comment on above: [employer] Start: 11-14-2016 Duplex ultrasound (qualifier value) LUIS ELLIOTT [employer] Comment on above: abn Start: 10-21-2007 Lithotripsy LUIS Patterson [employer] Start: 09-06-2000 Lipid 1996 panel - S rach or Plasma Jaswinder Schmidt DO Work Phone: Abdominal hysterectomy LUIS ELLIOTT [employer] Carotid artery struc ture (body structure) LUIS ELLIOTT [employer] Comment on above: left side x2 section LUIS ELLIOTT [employer] Cholecystectomy LUIS ELLIOTT [employer] Colonoscopy [facility]IS ELLIOTT APR [employer] [employer] Coronary artery bypa ss graft CABG - Coronary artery bypass graft( Confirmed ) 1 LUIS ELLIOTT [employer] Comment on above: prior to CABG, pt st awads she had multiple stents placed for CAD. Remains on plavix for stent/shasta patency Coronary artery bypa ss graft x 1 LUIS ELLIOTT [employer] Coronary stent site (finding) LUIS ELLIOTT [employer] History of carotid endarterectomy History of carotid endarterectomy( Confirmed ) LUIS ELLIOTT [employer] History of coronary artery bypass grafting Hx of CABG( Confirmed ) LUIS ELLIOTT [employer] History of percutane ous transluminal coronary angioplasty History of PTCA( Confirmed ) LUIS ELLIOTT [employer] History of percutane ous transluminal coronary angioplasty CRISTIAN SOTO MD [facility] Plan of Treatment Date Care Activity Detail Author Start: 03-03-2034 Urine microalbumin profile DTaP,Tdap,Td Vaccine (2 - Td or Tdap) [facility] Start: 2028 RSV Vaccine (1 - 1-d ose 75+ series) RSV Vaccine (1 - 1-dose 75+ series) [facility] Start: 06-17-2025 BP Controlled (<130/80) BP Controlle d (<130/80) [facility] Start: 12-18-2024 End: 12-18-2024 ambulatory 12/18/2024 2:30 PM EST Visit (SP) Office Hematology/Oncology [address] [place] [address] Jaswinder Schmidt DO [address] [facility] [facility] [place] [address] 6 MO OV* Hematology/Oncology Comment on above: 6 MO OV* Start: 06-21-2024 Covid-19 Vaccine ( season) Covid-19 Vaccine ( season) [facility] Start: 06-21-2024 Influenza vaccination Influenza Vacc ine (#1) [facility] Start: 06-17-2024 End: 09-16-[address] [facility] Work Phone: Comment on above: Expected: 06/17/2024 , Expires: 09/16/2024 Start: 10-21-2023 Advance Directive Discussion Advance Directive Discussion [facility] Start: 06-21-2023 Covid-19 Vaccine ( season) Covid-19 Vaccine ( season) [facility] Start: 2023 Pneumococcal Vaccine : 65+ (3 of 3 - PPSV23 or PCV20) Pneumococcal Vaccine: 65+ (3 of 3 - PPSV23 or PCV20) [facility] Start: 01-04-2023 Diabetes Screening Diabetes Screenin g [facility] Start: 2018 Screening for osteoporosis Bone Density Screening [facility] Start: 06-09-2016 Shingrix Vaccine (2 of 3) Shingrix Vaccine (2 of 3) [facility] Start: 2013 RSV Vaccine (1 - 1-d ose 60+ series) RSV Vaccine (1 - 1-dose 60+ series) [facility] Start: 09-06-2005 Lipid panel Lipid Screening [facility] Start: 2003 Screening for malign ant neoplasm of lung Lung Cancer Screening [facility] Start: 09-06-2001 Hepatitis B surface antibody level LDL Cholesterol [facility] Start: 1998 Screening for malign ant neoplasm of colon [facility] Start: 1993 Screening for malign ant neoplasm of breast Mammogram Screening [facility] Start: 1971 Annual PCP Team Geosciences Associate Professor lili Disease Visit Annual PCP Team Chronic Disease Visit [facility] Start: 1971 Anxiety Screening Anxiety Screening [facility] Start: 1971 Depression Screening Depression Scre ening [facility] Start: 1971 Hepatitis C screening Hepatitis C Sc [place] [facility] Immunizations Immunization Date Immunization Notes Care Provider Fa roshan 07-15-2024 influenza virus vacc ine, unspecified formulation DR MAGED PEDRO MD [facility] 03-03-2024 tetanus toxoid, redu vani diphtheria toxoid, and acellular pertussis vaccine, adsorbed ZULY FROMROSENDA DO [facility] 07-07-2023 influenza virus vacc ine, unspecified formulation LUIS ELLIOTT NEEDLE LOOM WEAVER-BUSINESS IMPROVEMENT MANAGER [facility] 07-10-2022 influenza virus vacc ine, unspecified formulation VELMA REYNOLDS NEEDLE LOOM WEAVER-BUSINESS IMPROVEMENT MANAGER [facility] 07-31-2021 SARS-CoV-2 mRNA (tozinameran) vaccine LUIS ELLIOTT NEEDLE LOOM WEAVER-BUSINESS IMPROVEMENT MANAGER [facility] 11-22-2020 SARS-CoV-2 mRNA (tozinameran) vaccine LUIS ELLIOTT NEEDLE LOOM WEAVER-BUSINESS IMPROVEMENT MANAGER [facility] 11-01-2020 SARS-CoV-2 mRNA (topravinnameran) vaccine LUIS ELLIOTT NEEDLE LOOM WEAVER-BUSINESS IMPROVEMENT MANAGER [facility] 07-08-2020 influenza virus vacc ine, unspecified formulation LUIS ELLIOTT NEEDLE LOOM WEAVER-BUSINESS IMPROVEMENT MANAGER [facility] 06-15-2019 influenza virus vacc ine, unspecified formulation LUIS BALFAITH NEEDLE LOOM WEAVER-BUSINESS IMPROVEMENT MANAGER [facility] 2018 influenza virus vacc ine, unspecified formulation LUIS ELLIOTT NEEDLE LOOM WEAVER-BUSINESS IMPROVEMENT MANAGER [facility] 2018 pneumococcal conjuga te vaccine, 13 valent LUIS ELLIOTT NEEDLE LOOM WEAVER-BUSINESS IMPROVEMENT MANAGER [facility] 06-28-2017 influenza virus vacc ine, unspecified formulation LUIS ELLIOTT NEEDLE LOOM WEAVER-BUSINESS IMPROVEMENT MANAGER [facility] 08-10-2016 influenza virus vacc ine, unspecified formulation LUIS ELLIOTT NEEDLE LOOM WEAVER-BUSINESS IMPROVEMENT MANAGER [facility] 04-14-2016 zoster vaccine, live LUIS BA LTES NEEDLE LOOM WEAVER-BUSINESS IMPROVEMENT MANAGER [facility] 10-21-2014 zoster vaccine, live LUIS BA LTES NEEDLE LOOM WEAVER-BUSINESS IMPROVEMENT MANAGER [facility] 09-19-2014 zoster vaccine, live LUIS BA LTES NEEDLE LOOM WEAVER-BUSINESS IMPROVEMENT MANAGER [facility] 10-21-2012 pneumococcal conjuga te vaccine, 13 valent LUIS ELLIOTT NEEDLE LOOM WEAVER-BUSINESS IMPROVEMENT MANAGER [facility] 10-21-2012 pneumococcal polysaccharide vaccine, 23 valent LUIS ELLIOTT NEEDLE LOOM WEAVER-BUSINESS IMPROVEMENT MANAGER [facility] 09-19-2012 pneumococcal polysaccharide vaccine, 23 valent LUIS ELLIOTT NEEDLE LOOM WEAVER-BUSINESS IMPROVEMENT MANAGER [facility] Payers Date Payer Category Payer Medicare [id number] 2019 Medicare UHC AARP MEDICAR E [facility] MEDICARE PPO [id number] 2019-Present [phone] [address] [address] [place] [address] PPO [id number] 2019 Private Health Insurance [id number] 1955 Unknown [id number] .62 1955 Unknown [id number] .1955 Unknown [id number] [id number] .627 1953 Unknown [id number] 2.840.1.626390.3.579.2 .62 1953 Unknown [id number] 2.840.1.082510.3.579.2 .627 1953 Unknown [id number] 2.840.1.643709.3.579.2 .62 1953 Unknown [id number] 2.16.840.1.385212.3.579.2 .627 1953 Unknown [id number] 2.16.840.1.257491.3.579.2 .627 1953 Unknown [id number] 2.16.840.1.977592.3.579.2 .627 1953 Unknown [id number] 2.16.840.1.208526.3.579.2 .627 1953 Unknown [id number] 2.16.840.1.373840.3.579.2 .1955 Unknown [id number] 2.16.840.1.139581.3.579.2 .7 1953 Unknown [id number] 2.16.840.1.605527.3.579.2 .1953 Unknown [id number] 2.16.840.1.127393.3.579.2 .7 1953 Unknown [id number] [id number] .627 Social History Date Type Detail Facility Start: 07-17-2019 End: 12-06-2022 Tobacco smoking status Ex-smoker (finding) [facility] Comment on above: Quit in 2011 Sex Assigned At Female [facility] Start: 10-21-1980 End: 10-21-2010 History of tobacco use Current smoker [facility] Start: 10-21-1980 End: 10-21-2010 History of tobacco use Cigarette Smoker [facility] Start: 12-04-2019 End: 06-17-2024 Cigarettes smoked current (pack per day) - Reported 1 [facility] Work Phone: Start: 12-04-2019 Tobacco use and exposure Smokeless tobacco non-user [facility] Start: 06-17-2024 Alcoholic beverage intake Current non-drinker of alcohol (finding) [facility] Start: 01-05-2020 End: 06-17-2024 Tobacco use panel [facility] Work Phone: How hard is it for y ou to pay for the very basics like food, housing, medical care, and heating Not hard at all [facility] Work Phone: (I/We) worried wheth er (my/our) food would run out before (I/we) got money to buy more. Never true [facility] Start: 1955 Sex assigned at Not on file C [facility] Medical Equipment Procedure Code Equipment Code Equipment Origin al Text Equipment Identifier Dates Graft 4-7mm Standard Map And Chart Mounter Kalaheo-Robinson 40cm Vascular Line Sterile - [id number] Start: 01-04-2020 Patch Bovine Pericardial Vascular Duravess 8x8 - [id number] Start: 01-04-2020 Comment on above: Description: bovine pericardial patch Functional Status Date Assessment Result Facility 08-05-2024 Functional Status Nurse Smiley medrano q2hrs Performed Other: 7a-12p [facility] 08-05-2024 Functional Status Independent [facility] 08-05-2024 Functional Status Identified as high risk, Fall ID band on, Room located near nursing station, Door open, Non-Slip footwear [facility] 08-05-2024 Functional Status [facility] 08-05-2024 Functional Status [facility] 08-05-2024 Functional Status [facility] 08-04-2024 Functional Status [facility] 08-04-2024 Functional Status [facility] 08-04-2024 Functional Status Single level home [facility] 08-04-2024 Functional Status [facility] 08-04-2024 Functional Status Maintained [facility] 07-14-2024 Functional Status Sensory Deficits None A [facility] 04-30-2024 Functional Status Room check performed [facility] 04-30-2024 Functional Status Lunch Percent [address] [facility] 04-30-2024 Functional Status Shahla Manuel spital [...] Status Assistive Equi pment elevated on pillows [facility] 04-24-2024 Functional Status Independent [facility] 04-24-2024 Functional Status Single level home [facility] 04-24-2024 Functional Status Sensory Deficits None A [facility] 04-23-2024 Functional Status Awake, Lights dimmed, Resting [facility] 04-21-2024 Functional Status Nurse Smiley medrano q2hrs Performed Other: 7AM - 1PM [facility] 04-21-2024 Functional Status bilateral knee high removed/off [facility] 04-21-2024 Functional Status Identified as high risk, Bed alert on, Non-Slip footwear, Room check performed [facility] 04-21-[address] [facility] 04-21-[address] [facility] 04-20-2024 Functional Status Shahla [facility] 04-20-2024 Functional Status Shahla arellano [facility] 04-20-2024 Functional Status 25 Shahla arellano [facility] 04-20-2024 Functional Status Single level home [facility] 04-20-2024 Functional Status Shahla arellano [facility] 04-20-2024 Functional Status Shahla arellano [facility] 04-20-2024 Functional Status Shahla arellano [facility] 04-20-2024 Functional Status Sensory Deficits None [facility] 03-03-2024 Functional Status Independent Shahla arellano [facility] 05-29-2022 Functional Status Independent Shahla arellano Mental Status Date Assessment Result Facility 08-05-2024 [facility] 08-04-2024 Mental Status [facility] 08-04-2024 Mental Status [facility] 04-30-2024 Mental Status Orientation Oriented x 4 [facility] 04-29-2024 [facility] 04-29-[facility]24 Mental Status [facility] 04-28-2024 Mental Status Orientation Asse ssment Oriented x 4 [facility] 04-28-2024 Mental Status [facility] 04-27-2024 Mental Status [facility] 04-23-2024 Mental Status Orientation Oriented x 4 [facility] 04-21-2024 Mental Status Oriented x 4 [facility] 04-20-2024 Mental Status [facility] 04-20-2024 [facility] Status [facility] 03-03-2024 Mental Status Orientation Orie nted x 4, Not oriented to person, Not oriented to place [facility] Clinical Notes 05-29-2022 to 08-05-2024 Telephone Encounter - Jaswinder Schmidt DO - 08/03/2024 5:13 PM EDTTelephone Encounter - Jaswinder Schmidt, - 08/03/2024 5:13 PM EDTTelephone Encounter - Kailee Chavezela JESSICA Patterson - 08/03/2024 4:42 PM EDT Note Date & Type Note Facility 08-05-2024 Hospital Discharge instructions Patient Education 08/05/2024 10:18:25 Total Hip Replacement, Anterior, Care After, Pjrz-ye-Mzii Total Hip Replacement, Anterior, Care After This sheet gives you information about how to care for yourself after your procedure. Your doctor may also give you more specific instructions. If you have problems or questions, contact your doctor. What can I expect after the procedure? After the procedure, it is common to have: Pain. Stiffness. Discomfort. Follow these instructions at home: Medicines Take kemj-zaa-fpsyoym and prescription medicines only as told by [...] use soap and water, use alcohol-based hand supervisor record press. ?Change your bandage as told by your [...] include fried or sweet foods. ?Take an dgsj-apd-oiqiebe or prescription medicine for constipation. Do not [...] 01/21/2019 Document Revised: 02/15/2020 Document Reviewed: 01/21/2019 [employer] Patient Education 2020 [employer] 08/05/2024 09:34:27 5 - [facility] Post-op Instruction 05/2017 (70965) [facility] Post-operative Instructions PLEASE FOLLOW [facility] POST-OP INSTRUCTIONS GIVEN WATCH FOR SIGNS OF INFECTION: call the office ([phone]) if experencing any of the following: (Usually [...] on your follow up instructions. Form: 338A (36183) R: 02/24 Follow Up Care 07/06/2024 09:57:10 With:LUIS ELLIOTT Address: [address] [place] [phone] When:08/14/2024 12:30:00 Comments:This is your post-op appointment with PCP to go over labwork results. Please have your labs drawn a few days prior to this appointment. With:TUSHAR SHIELDS PA-C, Orthopedic Address: [address] [place] [address] [address] [facility], [place] [address] [phone] When:08/18/2024 14:00:00 Comments:This is your post-op appointment. Follow-up as scheduled. [facility] 08-05-2024 Note Discharge Instructions Thank you for allowing [facility] to assist you with your healthcare needs. [...] next Instructions From Your Doctor Stable for w[place] Scheduled Follow-Up Appointments 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 When With Where Contact Information StatusPC OV Hospital Follow-Up 08/14/2024 12:30 PM EDT LUIS ELLIOTT [address] [phone] Confirmed PC OV 08/26/2024 02:00 PM EST LUIS ELLIOTT [address] [phone] Confirmed Follow Up Appointments Follow Up with LUIS ELLIOTT When:08/14/2024 12:30 PM EDT Where:[address] [place] [phone] Additional Information: This is your post-op appointment with PCP to go over labwork results. Please have your labs drawn a few days prior to this appointment. Follow Up with TUSHAR SHIELDS PA-C, Orthopedic When:08/18/2024 02:00 PM EDT Where:[address] [facility] [address] [facility], [place] [phone] Additional Information: This is your post-op appointment. [...] 12 hours Duration: 14 Days Pickup at [facility] New oxyCODONE (oxyCODONE 5 mg oral tablet ( IMMEDIATE release )) See instructions S/P total left hip arthroplasty 1-2 tab(s) Oral q4h, As needed for as needed for pain Pickup at [facility] Changed acetaminophen (Tylenol) 1,000 Milligram by [...] Pharmacy Information [id number]: [address] [place], [place] [id number] [phone] What How Much When Comments Stop Taking [...] were not tolerated. Extended-release oxycodone is for acyzla-vqm-yujyl treatment of severe and chronic pain that [...] by your doctor. Stop taking all other nkdcoy-mpo-keksn opioid pain medicines when you start taking [...] may report side effects to FDA at 9-032-QOD-8445. What other drugs will affect oxycodone? You [...] may affect oxycodone. This includes prescription and lbqf-cho-kgnvdrp medicines, vitamins, and herbal products. Not all [...] to ensure that the information provided by [employer]. ('[employer]') is accurate, up-to-date, and complete, but no guarantee is made to that effect. Drug information contained herein may be time sensitive. [employer] information has been compiled for use by healthcare practitioners and consumers in the [place] and therefore [employer] does not warrant that uses outside of the [place] are appropriate, unless specifically indicated otherwise. [employer]'s drug information does not endorse drugs, diagnose patients or recommend therapy. [employer] drug information is an informational resource designed [...] effective or appropriate for any given patient. [facility] does not assume any responsibility for any aspect of healthcare administered with the aid of information [facility] provides. The information contained herein is not intended to cover all possible uses, directions, precautions, warnings, drug interactions, allergic reactions, or adverse effects. If you have questions about the drugs you are taking, check with your doctor, nurse or pharmacist. Copyright 3055-9629 [facility] Holdings[facility]. Version: 17.. Revision Date: 11/12/2023. doxycycline (oral/injection) (DOX steph carroll) Acticlate, Adoxa, Alodox, Avidoxy, Doryx, Doryx MPC, Lymepak, Mondoxyne NL, Monodox, Morgidox, Morgidox 3m791en, Morgidox 6t201cz, Okebo, Oracea, Targadox, Vibramycin, Vibramycin Monohydrate What [...] or life-threatening conditions such as anthrax or [place] spotted fever. The benefit of treating a [...] may report side effects to FDA at 3-847-YWY-0309. What other drugs will affect doxycycline? Sometimes it is not safe to use certain medications at the same time. Some drugs can affect your blood levels of other drugs you take, which may increase side effects or make the medications less effective. Other drugs may affect doxycycline, including prescription and lkue-jsr-gpfjegf medicines, vitamins, and herbal products. Tell your [...] to ensure that the information provided by [employer]box. ('Multum') is accurate, up-to-date, and complete, but no guarantee is made to that effect. Drug information contained herein may be time sensitive. [employer] information has been compiled for use by healthcare practitioners and consumers in the [place] and therefore [employer] does not warrant that uses outside of the [place] are appropriate, unless specifically indicated otherwise. [employer]'s drug information does not endorse drugs, diagnose patients or recommend therapy. In[employer]'s drug information is an informational resource designed [...] effective or appropriate for any given patient. [facility] does not assume any responsibility for any aspect of healthcare administered with the aid of information [facility] provides. The information contained herein is not intended to cover all possible uses, directions, precautions, warnings, drug interactions, allergic reactions, or adverse effects. If you have questions about the drugs you are taking, check with your doctor, nurse or pharmacist. Copyright 5126-1864 [employer]. Version: .. Revision Date: 06/26/2023. Education Materials [...] Follow these instructions at home: Medicines Take vrif-mga-rmxnmth and prescription medicines only as told by [...] use soap and water, use alcohol-based hand supervisor record press. ? Change your bandage as told by [...] fried or sweet foods. ? Take an rixs-rcv-vttalzv or prescription medicine for constipation. Do not [...] Document Reviewed: 01/21/2019 Elsevier Patient Education 2020 [employer] Inc. [facility] Post-operative Instructions PLEASE FOLLOW [facility] POST-OP INSTRUCTIONS GIVEN WATCH FOR SIGNS OF INFECTION: call the office ([phone]) if experencing any of the following: (Usually [...] on your follow up instructions. Form: 338A (15561) R: 02/24 Additional Information VACCINATE! IT SAVES LIVES! Members of the community who have not yet received the COVID-19 vaccine and would like to receive it can visit one of [facility] vaccine clinics. There are many vaccine clinic locations within the [facility]. For locations and available times, please visit [email or web address].[place] .[email or web address] It is important to note that some COVID mobile vaccine clinics are held outdoors and may be canceled in rainy or stormy conditions. To learn more about pediatric vaccinations (ages 5-11), we invite you to visit the [employer] webpage. [email or web address]/page [email or web address]-Kqaaz-Ieessmiczyu-Frequently -Asked-Questions.html To learn more about the COVID-19 vaccine, we invite you to visit the CDC website for a list of frequently asked questions.https://www.cdc.gov/coron avirus/2019-ncov/vaccines/faq.html [employer] Patient Portal Access Instructions: Stay connected with your healthcare team and access your personal medical information anytime with the [employer] Patient Portal. Please follow the directions below to create your [employer] account: 1.Access the email account you provided upon registration to the hospital/physician office.2.Look for an invitation email from [facility].3.Open the email and access the invitation link: Accept Invitation to [email or web address].4.Fill in the required del real to create your account. To access your account, visit [email or web address]. Click the blue button labeled Access Patient [...] you will allow to register on the [facility] One[facility] Patient Portal for access to your information. You can also access the [facility] One[facility] Patient Portal on the [facility] Anywhere juli. Simply click on Patient Portal and then log into your account. If you would like to receive a full copy of your medical records, please contact the [facility] Medical Records Department by calling [phone], Saturday through Saturday between 8 a.m. and [...] Call your local pharmacy or go to [email or web address] to find one close to you.3.Make use of household items: Use cat litter or old coffee grounds to dispose medications if other options are not available. Mix your drugs with these household products, seal them in an airtight container and throw it into the garbage. Call [facility]: [phone] to be sure your drugs can be [...] Materials Total Hip Replacement, Anterior, Care After, Oizj-dh-Xbtm 5 - [facility] Post-op Instruction 05/2017 (26939) Medication Leaflets oxycodone, doxycycline (oral/injection) My discharge plan and instructions have been reviewed and explained to me and I,HERB VALDES understand my current condition and have read and understand these discharge instructions. I have received a written copy of the plan/instructions. If I have questions, I am aware that I should contact my doctor. Patient/Complex Manager Signature: ____ Date/Time: Relationship to Patient: __ Witness Name/Signature: Date/Time: [facility] 08-05-2024 Note Date of Service August 05, [...] change her pharmacy as her pharmacy in [place] did not have any narcotics for discharge. [...] send her medications to [facility] in [facility]. Due to shortage of pain medication at [facility] we did need to make a [...] primary care provider. I have reviewed the [place] Automated Rx Reporting System (OARRS) report for [...] grammatical errors may exist. Digitally Signed by JMAES MORALES PA-C on 08/05/2024 09:32 AM [facility] 08-05-2024 Pastoral care Progress note Pastoral Care Note Entered On: 08/05/2024 9:00 EDT Performed On: 08/05/2024 8:59 EDT by James Moralez Pastoral Care Type of Pastoral Visit : Initial visit Spiritual Care Visit Initiated by : Clerical Support Spiritual Care Reason for Visit : General [...] by James Moralez on 08/05/2024 08:59 AM [facility] 08-04-2024 Note ORIGINAL HISTORY: Arthroplasty COMPARISON: No [...] 08/04/2024 1:20:15 PM Ordering Provider: MAGED PEDRO [facility] 08-04-2024 Note ORIGINAL Images acquired, not reported on this accession number. [facility] 08-04-2024 Anesthesiology Consult note Patient: HERB VALDES [...] Problem list: Medical Anemia / SNOMED CT 043755696 / Confirmed Bronchitis / SNOMED CT 25838948 / Confirmed CABG - Coronary artery bypass graft / SNOMED CT 441334481 / Confirmed CAD - Coronary artery disease / SNOMED CT 5542896453 / Confirmed Carotid stenosis, bilateral / SNOMED CT 816534691 / Confirmed CKD (chronic kidney disease) / SNOMED CT 2106724460 / Confirmed Constipation / SNOMED CT 03942213 / Confirmed Cystocele with prolapse / SNOMED CT 476966766 / Confirmed Depression / SNOMED CT 697318238 / Confirmed High risk medication use / SNOMED CT 472145715 / Confirmed SOB (shortness of breath) / SNOMED CT 628311475 / Confirmed HYPERTENSION, ESSENTIAL / SNOMED CT 62779986 / Confirmed Glasses / SNOMED CT 9125240615 / Confirmed Headache / SNOMED CT 65494392 / Confirmed Heart disease / SNOMED CT 71828228 / Confirmed History of carotid endarterectomy / SNOMED CT 7212645958 / Confirmed Hx of CABG / SNOMED CT 0711950824 / Confirmed History of PTCA / SNOMED CT 2699527679 / Confirmed Hypertension / SNOMED CT [id number]-[id number] 4 / Confirmed Insomnia / SNOMED CT 492430430 / Confirmed Irritable bowel syndrome / SNOMED CT 46295077 / Confirmed Nephrolithiasis / SNOMED CT 612372680 / Confirmed Lipoma / SNOMED CT 503550924 / Confirmed B12 deficiency anemia / SNOMED CT 981085857 / Confirmed Osteoarthritis / SNOMED CT 5202968563 / Confirmed Osteonecrosis of hip / SNOMED CT 1883269755 / Confirmed Osteopenia of femoral neck / SNOMED CT 098716580 / Confirmed Preop cardiovascular exam / SNOMED CT 949565207 / Confirmed Medicare annual wellness visit, subsequent / SNOMED CT 220468070 / Confirmed S/P PTCA (PERCUTANEOUS TRANSLUMINAL CORONARY ANGIOPLASTY) / SNOMED CT 6705024725 / Confirmed Pulmonary emboli / SNOMED CT 94523882 / Confirmed Seasonal allergy / SNOMED CT 1780941544 / Confirmed Spasm of back muscles / SNOMED CT 165026669 / Confirmed Thoracic outlet syndrome / SNOMED CT 420091643 / Confirmed, Active Problems (35) Anemia B12 [...] syndrome Histories Past Medical History: Active Nephrolithiasis (553928266): Onset in 2007 at 52 years. Hypertension ([id number]) Comments: 03/24/2014 EDT 0:25 EDT MARCI MALDONADO MD active prior to hospital admissiion without ischemic sx or cardiac limitations. Pt denies recent changes in cardiac standpoint or change in medical managament. EKG NSR, old inf, ant Q waves and lateral t wave flattening. No prior EKG present for comparison. took metoprolol yesterday am CABG - Coronary artery bypass graft ([id number]) Comments: 03/24/2014 EDT 0:27 MARCI PURVIS MD prior to CABG, pt states she had multiple stents placed for CAD. Remains on plavix for stent/shasta patency Seasonal allergy (0803214671) Constipation (50432340) Irritable bowel syndrome (25326797) Headache (27233773) Glasses (5108914919) Depression (980418634) Resolved Bowel obstruction ([id number] ): Resolved. Comments: 03/24/2014 EDT 0:12 MARCI PURVIS MD Admitted earlier today with Abdominal pain, CT scan with suggestion for Bowel obtruction. Insomnia (651745802): Resolved. Chest pain in adult (38045437): Resolved. Family History: Heart disease Mother Sister Brother Cancer Father Sister Brother Procedure history: Cardiac catheterization (08511102) on 03/11/2023 at 67 Years. Placement of stent ([id number]) on 03/11/2023 at 67 Years. Endarterectomy (7084140895) on 01/04/2020 at 64 Years. Nerve conduction study (50532378) on 02/06/2017 at 61 Years. Comments: 12/22/2020 7:59 Sharri Whitfiedl LPN [facility];abn CT angiography of neck (7541328316) on 12/12/2016 at 61 Years. Comments: 12/22/2020 8:01 Sharri Whitfield LPN [facility] Duplex ultrasound, carotid (645686741) on 11/14/2016 at 61 Years. Comments: 12/22/2020 8:06 Sharri Whitfield LPN abn Lithotripsy (875188966) in 2008 at 53 Years. section (07788133). Cholecystectomy (42981824). CABG x 1 - Coronary artery bypass graft x 1 (434990639). Colonoscopy (997189339). Abdominal hysterectomy (572225624). Coronary stent site (259978620). Carotid artery (127907148). Comments: 07/09/2018 21:07 EDT - MARCK Mcfadden left side x2 US - Ultrasound carotid (960004281). 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 Shellac Polisher: grand dtr and her dad live w/her [...] Signs (last 24 hrs) Last Charted Temp Egbrskzc63.2 DegC (AUG 04 09:11) Heart Rate Gltjjayuh54 bpm (AUG 04 11:15) GHJ023 mmHg (AUG 04 11:10) DBP65 mmHg (AUG 04 11:10) Measurements from flowsheet : Measurements 08/04/2024 9:11 EDT Height 156 cm Admission Weight 57 kg Martell Body Weight 48.76 kg Admission Body Mass [...] Lab results 08/04/2024 11:24 EDT SN - [place] - Route of Administration Local SN - [place] - Route of Administration Local SN - [place] - By (Single) SN - WV - By (Single) SN - WV - By (Single) SN - [place] - By (Single) 08/04/2024 11:15 EDT Heart [...] - Additive IRRIGATION CHG 0.05% IRRISEPT 12/ [id number] SN - Irl - Additive BETADINE (POVIDONE [...] Surgeon SN - CAt - Role Performed DYNAMITE RECLAIMER SN - CAt - Role Performed Scrub 1 SN - CAt - Role Performed Subscription Crew Leader 1 SN - CAt - Role Performed Sole Tier 1 SN - CAt - Role Performed Physician Embedded Software Engineer SN - CAt - Role Performed Pie Filling Mixer 08/04/2024 10:03 EDT SN - Preop - [...] Height 156 cm Admission Weight 57 kg Martell Body Weight 48.76 kg Admission Body Mass [...] Quadrants Present Skin Temperature Warm Skin Description [place] Skin Integrity Intact Mucous Membrane Color [place] Neurological Symptoms Patient denies Characteristics of Speech Clear Level of Consciousness Alert Strength All Extremities Strong Affect/Behavior Appropriate, Calm, Cooperative Orientation Oriented x 4 Standard Safety ID band on, Allergy Band on, Call device within reach, Bed in low position, Wheels locked, Non-Slip footwear 08/04/2024 9:08 EDT Designated Person #1 We May Share [facility] Zita [phone] Designated Person #1 Relationship Daughter Privacy Restrictions Requested None Status N/A Sensory Deficits None Sleep Apnea Snore No Sleep Apnea Tired No Sleep Apnea Obstruction No Sleep Apnea Pressure Yes Sleep Apnea BMI No Sleep Apnea Age Yes Sleep Apnea Neck No Sleep Apnea Gender No Sleep Apnea Score 2 Diagnosed With Sleep Apnea No Advanced Directives Yes Advance Directive Type [place] Durable Power of [place] Alarm As[place] Declaration (Living Will) Advance Directive Location [...] after midnight, No makeup, No jewelry, Responsible Libertarian, Aware of surgery location, Pre-op education done, 1 bottle CHG wash with instructions given, Instructed to take ordered medications, Total Joint Replacement/Colorectal Book Given, SSI prevention handout given SN - Preprocedure Comments Spoke with patient, Verbalizes/Nonverbally indicates understanding, Other: carvedilolol Barriers to Learning None evident Teaching Method Explanation Preferred Spoken Language Uzbek Preferred Written Language Uzbek Teaching Evaluation Verbalizes/Nonverbally indicates understanding Total Joint [...] At-Risk Indicator YES . Assessment and Plan [place] Society of Anesthesiologists (ASA) physical status classification: Class III. Anesthetic Preoperative Plan Premedication: intravenous. Anesthetic technique: Spinal. Induction: intravenously. Maintenance airway: 40%fm. Special Monitoring. Postoperative pain management: Per surgeon. Risks discussed. Informed consent: signed by patient. Digitally Signed by LOBITO CRUZ on 08/04/2024 11:30 AM [facility] 08-03-2024 Telephone encounter Note Spoke with Dr. Pedro. I called patient. She was taking apixaban consistently up until last . Held it after that. Surgical clearance provided. We faxed the form to his office. Jaswinder Schmidt DO [facility] 08-03-2024 Miscellaneous Notes Spoke with Dr. Pedro. I called patient. She was taking apixaban consistently up until last . Held it after that. Surgical clearance provided. We faxed the form to his office. Jaswinder Schmidt DO DR. Pedro would like to speak with you today concerning surgical clearance for tomorrow. cell number [phone] please call. Tracy Chavez LPN 's office called again stating that there has been some issue getting the surgery clearance form faxed to them so to have Herb cleared for the surgery tomorrow needs to speak with via a phone call. Please call 's cell phone at [phone] when able tonight so Herb can still [...] Pedro does not feel comfortable doing at [facility].Jenna Ramesh LPN TC to pt, no answer, no VM set up. Will try again later. Can let her know that the blood work we did the day of the office visit was suggestive that she still may have ongoing blood clots and she had been off the Eliquis. I spoke with Dr. Pedro. He does not feel comfortable doing her surgery at [facility] so he recommended a referral to a [facility] orthopedic surgeon. We could refer her to see someone at [facility] or [facility]. Soonest appointment would be best. Tell her to continue Eliquis for now. Once she is reevaluated for surgery we can devise a plan to bridge her through with anticoagulation. Jaswinder Schmidt DO documented in this encounter [facility] 08-03-[address] Pedro would like to speak with you today concerning surgical clearance for tomorrow. cell number [phone] please call. Tracy Chavez LPN [facility] 08-03-2024 Telephone encounter Note 's office called again stating that there has been some issue getting the surgery clearance form faxed to them so to have Herb cleared for the surgery tomorrow needs to speak with via a phone call. Please call 's cell phone at [phone] when able tonight so Herb can still have surgery tomorrow. Maribeth Dunlap [facility] 08-03-2024 Telephone encounter Note Rodrigo called and stated they are needing the surgical clearance SAL because patient is on for surgery tomorrow. I did tell him we were waiting to hear back from the patient but we will get on this as quickly as possible. Maribeth Flores Pss [facility] 08-03-2024 Telephone encounter Note Patient called back. States she NO longer taking that medication. [facility] 08-03-2024 Telephone encounter Note Attempted to contact patient; VM full, unable to leave a message. Lynette Hendricks LPN [facility] 08-03-2024 Telephone encounter Note I received a form for surgical clearance for her. See if she is still taking apixaban. Jaswinder Schmidt DO [facility] 07-01-2024 Telephone encounter Note Spoke with patient. She states he has an appointment this Saturday with Dr. Pedro to discuss. She will call back and schedule with [facility] orth if needed. Patient informed of order/referral. [facility] Work Phone: 06-26-2024 Telephone encounter Note ATC patient but no answer and voicemail is full. Moon Ruggiero [facility] 06-26-2024 Telephone encounter Note TC to pt and discussed, she is agreeable to this. She will continue Eliquis and see a [facility] ortho. PSS please assist pt in scheduling with a [facility] ortho to move forward with hip relplacement surgery as Dr Pedro does not feel comfortable doing at [facility].Jenna Ramesh LPN [facility] 06-25-2024 Telephone encounter Note TC to pt, no answer, no VM set up. Will try again later. [facility] 06-25-2024 Telephone encounter Note Can let her know that the blood work we did the day of the office visit was suggestive that she still may have ongoing blood clots and she had been off the Eliquis. I spoke with Dr. Pedro. He does not feel comfortable doing her surgery at [facility] so he recommended a referral to a [facility] orthopedic surgeon. We could refer her to see someone at [facility] or [facility]. Soonest appointment would be best. Tell her to continue Eliquis for now. Once she is reevaluated for surgery we can devise a plan to bridge her through with anticoagulation. Jaswinder Schmidt DO [facility] 06-17-2024 Note HNO ID: [id number] Author: JASWINDER SCHMIDT DO Service: ? Author [...] She was taken to the ED at [facility] on 04/19/2020 for 4 complaints of left [...] was then taken to the ED at [facility] that night. CTA of the chest on [...] interlobar septal thickening. She was transferred to [facility]. She was also diagnosed with E. coli bladder infection and septicemia, chronic kidney disease stage III, anemia and hyponatremia that resolved at the time of discharge. She self discontinued apixaban on May 27 or May 28 because she wants to have the hip replacement surgery. Seeing Dr. Maged Pedro at [facility]. Denies cough and shortness of breath presently. [...] Lung Cancer Sister (more content not included)... [facility] 06-17-2024 History of Present illness Narrative [...] She was taken to the ED at [facility] on 04/19/2020 for 4 complaints of left [...] was then taken to the ED at [facility] that night. CTA of the chest on [...] interlobar septal thickening. She was transferred to [facility]. She was also diagnosed with E. coli bladder infection and septicemia, chronic kidney disease stage III, anemia and hyponatremia that resolved at the time of discharge. She self discontinued apixaban on May 27 or May 28 because she wants to have the hip replacement surgery. Seeing Dr. Maged Pedro at [facility]. Denies cough and shortness of breath presently. [...] lobe pulmonary artery. -Provoked PE--she was in [facility] ED with fever 4 days prior [...] which included preparing to see the patient, pkmc-pf-ljbg patient care, completing clinical documentation, obtaining and/or reviewing separately obtained history, performing a medically appropriate examination, counseling and educating the patient/family/caregiver, ordering medications, tests, or procedures, communicating with other HCPs (not separately reported), and communicating results to the patient/family/caregiver. Jaswinder Schmidt DO documented in this encounter [facility] 05-17-2024 Note . MICRO - Microbiology PROCEDURE: Urine Culture [*1] SOURCE: Urine, Clean Catch BODY SITE: COLLECTED DATE/TIME: 05/16/2024 09:17 EDT RECEIVED DATE/TIME: 05/16/2024 15:47 EDT START DATE/TIME: 05/16/2024 15:47 EDT FREE TEXT SOURCE: FINAL REPORTS Final Report [] Verified Date/Time/Personnel: 05/17/2024 14:17 EDT 10,000 - 50,000 cfu/ml Mixed growth consistent with normal urogenital katelynn. Performing Locations *1: This test was performed at: [address], [facility] , [facility] ([place]) 05-06-2024 Note ORIGINAL PROCEDURE: LEFT HIP ASPIRATION UNDER FLUOROSCOPY CLINICAL STATEMENT: Left hip pain hip pain, known joint effusion noted on recent CT abdomen and pelvis LENS COATING TECHNICIAN: Samantha Gil PA-C ANESTHESIA: Local ASPIRATE: 20 [...] aspiration. The procedure was performed by Samantha Gli PA-C. I concur with the contents of her report. Interpreted by: Love Cutler MD Preliminary Report By: Samantha Gil PA-C Electronically signed By Love Cutler MD Dictated Date: 04/29/2024 3:46:55 PM Prelim Date: 04/29/2024 3:49:03 PM Sign Date: 05/06/2024 3:01:40 PM Ordering Provider: [facility] 05-06-2024 Note . MICRO - Microbiology PROCEDURE: [...] Locations *1: This test was performed at: [facility], [address] [place] [address], [id number] , [facility] ([place]) 04-30-2024 Hospital Discharge instructions Patient Education 04/30/2024 [...] Follow these instructions at home: Medicines Take mrod-hif-borplyv and prescription medicines only as told by [...] right away. Call your local emergency services (721 in the [place] Do not drive yourself [...] 10/04/2001 Document Revised: 07/15/2019 Document Reviewed: 07/15/2019 [employer] Patient Education 2020 [employer]. Follow Up Care 04/23/2024 23:53:31 With:JAIDEN ABDUL BA, MD, Infectious Disease, Infectious Disease Group Address: [facility] [place] [id number] [place] [address] [phone] When:Within 2 Week(s) With:KAYDEN SANDERS DO, Orthopedic Address: [address] [place] [address] [phone] When:Within 3 Week(s) With:LUIS ELLIOTT Address: [address] [place] [address]- Business (1) When:1-2 days Comments:Please call the office to schedule a hospital follow-up appointment. With:SHWETHA WATTERS MD, Orthopedic Address: [address] [facility], [place] [address] [phone] When:Within 2 Week(s) Comments:for L hip AVN With:[facility] Address:Unknown When: Unknown Comments:They will call you before they come out. Call [phone] with any questions or concerns. Home Physical and occupational therapy will resume and an RN has been added. [facility] 04-30-2024 Discharge summary Date of Service 04/30/2024 [...] (F32.A - ICD-10-CM) Atherosclerotic heart disease of [place] coronary artery without angina pectoris (I25.10 - [...] (one day only), Blood, Once, Preferred Lab: [facility], Stop date 04/30/24 5:00:00 EDT(Complete) Other status: CBC,04/30/24 5:00:00 EDT, Next AM Draw (one day only), Blood, Once, Preferred Lab: [facility], Stop date 04/30/24 5:00:00 EDT(Complete) Other [...] BID, # 60 tab(s), 0 Refill(s), Pharmacy: [facility]/pharmacy #[id number], 155, cm, 04/24/24 4:14:00 EDT, Height, 65.6, kg, 04/24/24 4:14:00 EDT, Dosing Weight Ordered: cefdinir 300 mg oral capsule,Dose : 300 mg = 1 cap(s), Oral, q12h, X 14 day(s), # 28 cap(s), 0 Refill(s), 05/14/24 11:48:00 EDT, Pharmacy: [facility]/pharmacy #[id number], 155, cm, 04/24/24 4:14:00 EDT, [...] Where:[facility] [place] [address] [place] [address]- [phone] Follow Up with KAYDEN SANDERS DO, Orthopedic When:In 3 weeks Where:[address] [facility], [place] [address]- [phone] Follow Up with LUIS ELLIOTT When:Within 1-2 days Where:[address] [place] [address]- Business (1) Additional Information: Please call the office to schedule a hospital follow-up appointment. Follow Up with SHWETHA WATTERS MD, Orthopedic When:In 2 weeks Where:[address] [facility], [place] [address]- [phone] Additional Information: for L hip AVN Follow Up with [facility] Additional Information: They will call you before they come out. Call [phone] with any questions or concerns. Home Physical [...] RYAN CAMPBELL MD on 04/30/2024 02:09 PM [facility] 04-30-2024 Note Discharge Instructions Thank you for allowing [facility] to assist you with your healthcare needs. The following is important discharge information regarding your hospital visit. Your Care Team LUIS ELLIOTT Your Diagnosis Acute rhinosinusitis B12 deficiency anemia Bilateral serous otitis media Depression Insomnia Insomnia What to do next Scheduled Follow-Up Appointments 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 When With Where Contact Information StatusPC OV 05/21/2024 03:00 PM EDT BALTES, LUIS NEEDLE [facility] [address] [place] [phone] Confirmed CV OV 06/15/2024 03:00 PM EDT VELMA REYNOLDS [facility] CVC Confirmed Follow Up Appointments Follow Up with JAIDEN ABDUL BA, MD, Infectious Disease, Infectious Disease Group When:In 2 weeks Where:[facility] [place] [address] [place] [address]- [phone] Follow Up with KAYDEN SANDERS DO, Orthopedic When:In 3 weeks Where:[address] [facility], [place] [address]- [phone] Follow Up with LUIS ELLIOTT When:Within 1-2 days Where:[address] [place] [address]- Business (1) Additional Information: Please call the office to schedule a hospital follow-up appointment. Follow Up with SHWETHA WATTERS MD, Orthopedic When:In 2 weeks Where:[address] [facility], [place] [address]- [phone] Additional Information: for L hip AVN Follow Up with [facility] Additional Information: They will call you before they come out. Call [phone] with any questions or concerns. Home Physical [...] Two (2) times a day Pickup at [facility]/pharmacy #[id number] New cefdinir (cefdinir 300 mg oral capsule) 1 cap by mouth Every 12 hours Duration: 14 Days Pickup at [facility]/pharmacy #[id number] Unchanged acetaminophen (Tylenol Extra Strength [...] mouth Daily at bedtime Insomnia Pharmacy Information [facility]/pharmacy #[id number]: [address] [place], [place] [phone] Please take this list to your next [...] may report side effects to FDA at 1-409-ZSZ-1908. What other drugs will affect cefdinir? Tell your doctor about all your other medicines, especially: probenecid; or vitamin or mineral supplements that contain iron. This list is not complete. Other drugs may affect cefdinir, including prescription and daey-vja-qnrhvwg medicines, vitamins, and herbal products. Not all [...] to ensure that the information provided by Medbox. ('[employer]') is accurate, up-to-date, and complete, but no guarantee is made to that effect. Drug information contained herein may be time sensitive. Inventalator information has been compiled for use by healthcare practitioners and consumers in the [place] and therefore Inventalator does not warrant that uses outside of the [place] are appropriate, unless specifically indicated otherwise. tagWALLETs drug information does not endorse drugs, diagnose patients or recommend therapy. tagWALLETs drug information is an informational resource designed [...] effective or appropriate for any given patient. In[employer]alator does not assume any responsibility for any aspect of healthcare administered with the aid of information In[employer]alator provides. The information contained herein is not intended to cover all possible uses, directions, precautions, warnings, drug interactions, allergic reactions, or adverse effects. If you have questions about the drugs you are taking, check with your doctor, nurse or pharmacist. Copyright 0267-5485 Medbox. Version: 9.01. Revision Date: 05/24/2023. apixaban (a PIX a ban) Andrew What is the most important information I should know about apixaban? Apixaban increases your risk of severe or fatal bleeding, especially if you take certain medicines at the same time (including some irqb-bcq-wdthlha medicines). Tell your doctor about all medicines [...] may report side effects to FDA at 7-507-EKV-1329. What other drugs will affect apixaban? Sometimes it is not safe to use certain medications at the same time. Some drugs can affect your blood levels of other drugs you take, which may increase side effects or make the medications less effective. Many other drugs (including some iwlq-hhn-gmzirnr medicines) can increase your risk of bleeding or blood clots. Tell your doctor about all medicines you have recently used, especially: any other medicines to treat or prevent blood clots; a blood thinner such as heparin or warfarin (Coumadin, Jantoven); an antidepressant; or aspirin or other NSAID (nonsteroidal anti-inflammatory drug) used long term care administrator. This list is not complete and many other drugs may affect apixaban. This includes prescription and pbxf-qsz-ctsdqnr medicines, vitamins, and herbal products. Not all [...] to ensure that the information provided by Medbox. ('Multum') is accurate, up-to-date, and complete, but no guarantee is made to that effect. Drug information contained herein may be time sensitive. Inventalator information has been compiled for use by healthcare practitioners and consumers in the [place] and therefore Inventalator does not warrant that uses outside of the [place] are appropriate, unless specifically indicated otherwise. tagWALLETs drug information does not endorse drugs, diagnose patients or recommend therapy. tagWALLETs drug information is an informational resource designed [...] effective or appropriate for any given patient. Inventalator does not assume any responsibility for any aspect of healthcare administered with the aid of information Inventalator provides. The information contained herein is not intended to cover all possible uses, directions, precautions, warnings, drug interactions, allergic reactions, or adverse effects. If you have questions about the drugs you are taking, check with your doctor, nurse or pharmacist. Copyright 5979-3113 Medbox. Version: 6.01. Revision Date: 06/13/2021. Education Materials [...] Follow these instructions at home: Medicines Take jmgs-pqv-ayttwyw and prescription medicines only as told by [...] 10/04/2001 Document Revised: 07/15/2019 Document Reviewed: 07/15/2019 Evolution Mobile Platform Patient Education 2020 [employer]. Additional Information VACCINATE! IT SAVES LIVES! Members of the community who have not yet received the COVID-19 vaccine and would like to receive it can visit one of [facility] vaccine clinics. There are many vaccine clinic locations within the [facility]. For locations and available times, please visit https://[email or web address].[place] .gov/. It is important to note that some COVID mobile vaccine clinics are held outdoors and may be canceled in rainy or stormy conditions. To learn more about pediatric vaccinations (ages 5-11), we invite you to visit the [facility] webpage. https://www.[facility].org/page s/7882-Yipwf-Subkvwywuvl-Frequently -Asked-Questions.html To learn more about the COVID-19 vaccine, we invite you to visit the CDC website for a list of frequently asked questions.https://www.cdc.gov/coron avirus/2019-ncov/vaccines/faq.html [employer] Patient Portal Access Instructions: Stay connected with your healthcare team and access your personal medical information anytime with the [employer] Patient Portal. Please follow the directions below to create your [facility] account: 1.Access the email account you provided upon registration to the hospital/physician office.2.Look for an invitation email from [facility].3.Open the email and access the invitation link: Accept Invitation to [facility].4.Fill in the required dle real to create your account. To access your account, visit silver [facility]/Pra[facility] City[facility]iczohart. Click the blue button labeled Access Patient [...] you will allow to register on the [facility] Patient Portal for access to your information. You can also access the [facility] [employer] Patient Portal on the [facility] Watch[facility]where juli. Simply click on Patient Portal and then log into your account. If you would like to receive a full copy of your medical records, please contact the [facility] Medical Records Department by calling [phone], Saturday through Saturday between 8 a.m. and [...] Call your local pharmacy or go to http://bit.ly/5F2Pl1u to find one close to you.3.Make use of household items: Use cat litter or old coffee grounds to dispose medications if other options are not available. Mix your drugs with these household products, seal them in an airtight container and throw it into the garbage. Call [facility]: [phone] to be sure your drugs can be [...] aware that I should contact my doctor. Patient/Complex Manager Signature: ____ Date/Time: Relationship to Patient: __ Witness Name/Signature: Date/Time: [facility] 04-30-2024 Note Discharge Instructions Thank you for [...] OV 05/21/2024 03:00 PM EDT LUIS ELLIOTT [address] [phone] Confirmed CV OV 06/15/2024 03:00 PM EDT VELMA REYNOLDS [facility] CVC Confirmed Follow Up Appointments Follow Up with JAIDEN ABDUL BA, MD, Infectious Disease, Infectious Disease Group When:In 2 weeks Where:[facility] [place] [address] [place] [address]- [phone] Follow Up with KAYDEN SANDERS DO, Orthopedic When:In 3 weeks Where:[address] [facility], [place] [address]- [phone] Follow Up with LUIS ELLIOTT When:Within 1-2 days Where:[address] [place] [address]- Business (1) Additional Information: Please call the office to schedule a hospital follow-up appointment. Follow Up with SHWETHA WATTERS MD, Orthopedic When:In 2 weeks Where:[address] [facility], [place] [phone] Additional Information: for L hip AVN Follow Up with [facility] Additional Information: They will call you before they come out. Call [phone] with any questions or concerns. Home Physical [...] Two (2) times a day Pickup at [facility]/pharmacy #4605 New cefdinir (cefdinir 300 mg oral capsule) 1 cap by mouth Every 12 hours Duration: 14 Days Pickup at [facility]/pharmacy #4605 Unchanged acetaminophen (Tylenol Extra Strength [...] mouth Daily at bedtime Insomnia Pharmacy Information [facility]/pharmacy #4605: [address], [place] [phone] Please take this list to your next doctor s visit. Bring all medications you take, including over the counter medications, herbals and other supplements with you to your doctor s visit. Patients and families are reminded to discard old lists and to update any records with all medication providers or retail pharmacies. Medication Leaflets cefdinir ([facility] mark carter) What is [...] may report side effects to FDA at 6-877-ZDM-3688. What other drugs will affect cefdinir? Tell your doctor about all your other medicines, especially: probenecid; or vitamin or mineral supplements that contain iron. This list is not complete. Other drugs may affect cefdinir, including prescription and cybz-jwb-aqtwknf medicines, vitamins, and herbal products. Not all [...] to ensure that the information provided by Medbox. ('Multum') is accurate, up-to-date, and complete, but no guarantee is made to that effect. Drug information contained herein may be time sensitive. Inventalator information has been compiled for use by healthcare practitioners and consumers in the [place] and therefore Inventalator does not warrant that uses outside of the [place] are appropriate, unless specifically indicated otherwise. Inventalator's drug information does not endorse drugs, diagnose patients or recommend therapy. tagWALLETs drug information is an informational resource designed [...] effective or appropriate for any given patient. [facility] does not assume any responsibility for any aspect of healthcare administered with the aid of information [facility] provides. The information contained herein is not intended to cover all possible uses, directions, precautions, warnings, drug interactions, allergic reactions, or adverse effects. If you have questions about the drugs you are taking, check with your doctor, nurse or pharmacist. Copyright 3668-6634 [facility]. Version: 9.. Revision Date: 05/24/2023. apixaban (a PIX a ban) Andrew What is the most important information I should know about apixaban? Apixaban increases your risk of severe or fatal bleeding, especially if you take certain medicines at the same time (including some ijjd-yaj-tkizsyx medicines). Tell your doctor about all medicines [...] may report side effects to FDA at 0-886-XRE-8600. What other drugs will affect apixaban? Sometimes it is not safe to use certain medications at the same time. Some drugs can affect your blood levels of other drugs you take, which may increase side effects or make the medications less effective. Many other drugs (including some ojek-fhd-ranhcce medicines) can increase your risk of bleeding or blood clots. Tell your doctor about all medicines you have recently used, especially: any other medicines to treat or prevent blood clots; a blood thinner such as heparin or warfarin (Coumadin, Jantoven); an antidepressant; or aspirin or other NSAID (nonsteroidal anti-inflammatory drug) used mcc. This list is not complete and many other drugs may affect apixaban. This includes prescription and fvvs-wxk-gfzvgbt medicines, vitamins, and herbal products. Not all [...] to ensure that the information provided by Medbox. ('Multum') is accurate, up-to-date, and complete, but no guarantee is made to that effect. Drug information contained herein may be time sensitive. Inventalator information has been compiled for use by healthcare practitioners and consumers in the [place] and therefore Inventalator does not warrant that uses outside of the [place] are appropriate, unless specifically indicated otherwise. Inventalator's drug information does not endorse drugs, diagnose patients or recommend therapy. tagWALLETs drug information is an informational resource designed [...] effective or appropriate for any given patient. Inventalator does not assume any responsibility for any aspect of healthcare administered with the aid of information Inventalator provides. The information contained herein is not intended to cover all possible uses, directions, precautions, warnings, drug interactions, allergic reactions, or adverse effects. If you have questions about the drugs you are taking, check with your doctor, nurse or pharmacist. Copyright 3092-9977 Medbox. Version: 6.01. Revision Date: 06/13/2021. Education Materials [...] Follow these instructions at home: Medicines Take tcbb-xrf-vhaknki and prescription medicines only as told by [...] 10/04/2001 Document Revised: 07/15/2019 Document Reviewed: 07/15/2019 ElseRazorGator Patient Education 2020 Evolution Mobile Platform Inc. Additional Information VACCINATE! IT SAVES LIVES! Members of the community who have not yet received the COVID-19 vaccine and would like to receive it can visit one of [facility] vaccine clinics. There are many vaccine clinic locations within the [facility]. For locations and available times, please visit https://[email or web address].[place] .gov/. It is important to note that some COVID mobile vaccine clinics are held outdoors and may be canceled in rainy or stormy conditions. To learn more about pediatric vaccinations (ages 5-11), we invite you to visit the [facility] webpage. https://www.[facility].org/page s/0882-Zmzvp-Expjdzynvjc-Frequently -Asked-Questions.html To learn more about the COVID-19 vaccine, we invite you to visit the CDC website for a list of frequently asked questions.https://www.cdc.gov/coron avirus/2019-ncov/vaccines/faq.html [facility] Patient Portal Access Instructions: Stay connected with your healthcare team and access your personal medical information anytime with the [email or web address] Patient Portal. Please follow the directions below to create your [employer] account: 1.Access the email account you provided upon registration to the hospital/physician office.2.Look for an invitation email from [facility].3.Open the email and access the invitation link: Accept Invitation to [email or web address].4.Fill in the required del real to create your account. To access your account, visit MailMeNetwork/[employer]S Consultinghart. Click the blue button labeled Access Patient [...] you will allow to register on the [email or web address] Patient Portal for access to your information. You can also access the [email or web address] Patient Portal on the SkyGridwhere juli. Simply click on Patient Portal and then log into your account. If you would like to receive a full copy of your medical records, please contact the [facility] Medical Records Department by calling [phone], Saturday through Saturday between 8 a.m. and [...] Call your local pharmacy or go to http://Shenzhen Just[employer]ide [employer].appsplit/1V2Gu0w to find one close to you.3.Make use of household items: Use cat litter or old coffee grounds to dispose medications if other options are not available. Mix your drugs with these household products, seal them in an airtight container and throw it into the garbage. Call [facility]: [phone] to be sure your drugs can be [...] aware that I should contact my doctor. 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, left groin/hip procedure [...] tab(s), Oral, qHS fluticasone nasal 0.05 mg/inh Santa 100 mcg 2 spray(s), Nostril, each, qDay [...] Lisa Jimenez RN on 04/30/2024 09:25 AM [facility] 04-30-2024 Infectious disease Progress note Date of [...] 24 hours SKIN: BUE/facial skin discolorations/rash noted 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, left groin/hip procedure site with ecchymosis and bloody drainage noted TIRE BUILDER INCISIONS/DRESSINGS: None EXTREMITIES: BUE skin discolorations/rash-chronic, generalized [...] tab(s), Oral, qHS fluticasone nasal 0.05 mg/inh Santa 100 mcg 2 spray(s), Nostril, each, qDay [...] Lisa Jimenez RN on 04/30/2024 09:25 AM [facility] 04-30-2024 Orthopaedic surgery Progress note Date of [...] BIB ARTIS DO on 04/30/2024 07:13 AM [facility] 04-30-2024 Orthopaedic surgery Progress note Date of [...] BIB ARTIS DO on 04/30/2024 07:13 AM [facility] 04-30-2024 Orthopaedic surgery Progress note Date of [...] BIB ARTIS DO on 04/30/2024 07:13 AM [facility] 04-30-2024 Note . MICRO - Microbiology PROCEDURE: [...] Locations *1: This test was performed at: [facility], [address] [place] [address], [address] , [facility] ([place]) 04-30-2024 Note . MICRO - Microbiology PROCEDURE: [...] Locations *1: This test was performed at: [facility], [address] [place] [address], [facility] , [facility] ([place]) 04-29-2024 Procedure note IR Brief Post Procedure Note Preprocedure Dx: left hip pain Post Procedure Dx: Same Procedure: LEFT hip aspiration Anesthesia: Local EBL: Minimal Complications: None Status: Unchanged Findings: 1. Successful LEFT hip aspiration. Collected 20mL cloudy yellow synovial fluid. Plan: 1. Synovial fluid sent to lab. Full report to follow. Samantha Gil PA-C Interventional Radiology Pager: [phone] IR dept: [id number] Available on [employer] Digitally Signed by SAMANTHA GIL PA-C on 04/29/2024 01:52 PM [facility] 04-29-2024 Note IR Procedure Record Summary Primary Physician: SAMANTHA GIL PA-C Finalized Date/Time: 04/29/24 13:51:11 Pt. Name: HERB VALDES/Sex: 1955 Female Med Rec #: [id number] Physician: CRISTIAN SOTO MD Financial #: [id number] Pt. Type: I Room/Bed: 66/A Admit/Disch: 04/24/24 [...] RN Corey Tech Role Performed Circulating Technologist Subscription Crew Leader 1 Details Time In 04/29/24 13:29:00 04/29/24 [...] and Delonte Aguilar, results are properly Shonna Mobile Shareholder, labeled and MARCK Pitts appropriately displayed, Alcohol [...] Radiology - Action Plan Outcomes Met? Yes Equipment Associate MARCK Pitts Completing Procedure Plan Last Modified By: MARCK Pitts 04/29/24 13:47:14 Case Comments Finalized By: MARCK Pitts Document Signatures Signed By: MARCK Pitts 04/29/24 13:51 [facility] 04-29-2024 Note Subjective: Patient seen for acute [...] tab(s), Oral, qHS fluticasone nasal 0.05 mg/inh Santa 100 mcg 2 spray(s), Nostril, each, qDay [...] Ryan Campbell MD Digitally Signed by RYAN CAMPBLEL MD on 04/29/2024 01:20 PM [facility] 04-29-2024 Orthopaedic surgery Consult note Date of Service 04/28/2024 Reason for Consultation Left hip CT findings Referring Physician ID History of Present Illness Patient is a 68-year-old female who presents to [facility] for other medical conditions, however was noted [...] She is established with Dr. 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., 10/01/2023 Nutrition/Health Type of [...] BIB ARTIS DO on 04/28/2024 04:58 PM [facility] 04-28-2024 Note Subjective: Patient seen for acute [...] tab(s), Oral, qHS fluticasone nasal 0.05 mg/inh Santa 100 mcg 2 spray(s), Nostril, each, qDay [...] RYAN CAMPBELL MD on 04/28/2024 01:38 PM [facility] 04-28-2024 Infectious disease Progress note Date of [...] tab(s), Oral, qHS fluticasone nasal 0.05 mg/inh Santa 100 mcg 2 spray(s), Nostril, each, qDay [...] Lisa Jimenez RN on 04/28/2024 10:05 AM [facility] 04-28-2024 Infectious disease Progress note Date of [...] this morning SKIN: BUE skin discolorations/rash noted 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 MICRO - Microbiology PROCEDURE: Blood Culture (bacterial) [*1] SOURCE: Blood BODY SITE: COLLECTED DATE/TIME: 04/23/2024 21:31 EDT RECEIVED DATE/TIME: 04/24/2024 14:11 EDT START DATE/TIME: 04/24/2024 14:11 EDT FREE TEXT SOURCE: FINAL REPORTS Final Report [] Verified Date/Time/Personnel: 04/28/2024 07:53 EDT Escherichia coli Isolated from anaerobe bottle only. Refer to previous culture for susceptibility. [id number] Escherichia coli #2 Isolated from anaerobe bottle only. PRELIMINARY REPORTS Preliminary Report [] Verified Date/Time/Personnel: 04/27/2024 09:10 EDT Escherichia coli Isolated from anaerobe bottle only. Refer to previous culture for susceptibility. [id number] Escherichia coli #2 Isolated from anaerobe bottle [...] Locations *1: This test was performed at: [facility], [address] [place] [address], [facility] , [facility] ([place]) 04-27-2024 Note ORIGINAL EXAMINATION: CT OF THE [...] 04/27/2024 8:45:58 PM Ordering Provider: AGUILARRENITA LOPEZ [facility] 04-27-2024 Note Date of Service April 27, [...] tab(s), Oral, qHS fluticasone nasal 0.05 mg/inh Santa 100 mcg 2 spray(s), Nostril, each, qDay [...] AGUILAR LOPEZ MD on 04/27/2024 08:00 PM [facility] 04-27-2024 Infectious disease Progress note Date of [...] 24 hours SKIN: BUE skin discolorations/rash noted 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 INCISIONS/DRESSINGS: None EXTREMITIES: [...] tab(s), Oral, qHS fluticasone nasal 0.05 mg/inh Santa 100 mcg 2 spray(s), Nostril, each, qDay [...] Lisa Jimenez RN on 04/27/2024 09:31 AM [facility] 04-27-2024 Infectious disease Progress note Date of [...] 24 hours SKIN: BUE skin discolorations/rash noted 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 INCISIONS/DRESSINGS: None EXTREMITIES: [...] tab(s), Oral, qHS fluticasone nasal 0.05 mg/inh Santa 100 mcg 2 spray(s), Nostril, each, qDay [...] Lisa Jimenez RN on 04/27/2024 09:31 AM [facility] 04-26-2024 Orthopaedic surgery Consult note Date of Service 04/25 Reason for Consultation Left hip avascular necrosis Referring Physician Medicine History of Present Illness Patient is a 68-year-old female who presents to [facility] for other medical conditions, however was noted [...] Use, 07/09/2018 Use: Never., 07/17/2019 Home/Environment 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 Lopez History of Present Illness 68-year-old female with past medical history of coronary artery disease status post CABG, bilateral carotid stenosis status post carotid enterectomy, hypertension, chronic anemia, CKD, depression, thoracic outlet syndrome, recent avascular necrosis of the left hip as a transfer from [place] with shortness of breath, altered mental status, nausea, vomiting and chills. She recently had fall last week and injured her left hip and was seen initially in the ER due to this and was found to have avascular necrosis and was sent home. A few days later, patient developed the above symptoms so came to the ER and was transferred from [place]. She does have history of cholecystectomy. 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 Lopez History of Present Illness 68-year-old female with past medical history of coronary artery disease status post CABG, bilateral carotid stenosis status post carotid enterectomy, hypertension, chronic anemia, CKD, depression, thoracic outlet syndrome, recent avascular necrosis of the left hip as a transfer from [place] with shortness of breath, altered mental status, nausea, vomiting and chills. She recently had fall last week and injured her left hip and was seen initially in the ER due to this and was found to have avascular necrosis and was sent home. A few days later, patient developed the above symptoms so came to the ER and was transferred from [place]. She does have history of cholecystectomy. 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 Was recently discharged from [facility] due to decreased ambulation left hip pain, [...] flow (brisk flow). IMPRESSIONS: Severe CAD in [place]. Patent COTO to LAD. 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., 10/01/2023 Nutrition/Health Type of [...] LOUIS RUBIO MD on 04/24/2024 03:45 PM [facility] 04-24-2024 Evaluation + Plan note Extrac tarun [...] Appointment Date:05/21/2024 03:00:00 PM Scheduled Provider:LUIS ELLIOTT Location:[facility] 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:PC OV Appointment Date:06/15/2024 03:00:00 PM Scheduled Provider:VELMA REYNOLDS Location:[facility] 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:CV OV Diagnostic Tests Pending * Sodium Random Urine 04/26/24 * Osmolality Urine 04/26/24 Future Scheduled Tests Laboratory* Complete Blood Count 10/03/23 Radiology* BD Bone Density DEXA Axial Skeleton 06/19/23 [facility] 07-05-2024 Note* Exam Date Time Procedure Performing Provider Status 04/24/24 10:53 AM Echocardiogram, Adult - CV Auth (Verified) [facility] 07-05-2024 NoteSinus rhythm Inferior infarct, old Prolonged QT interval Electronic Signature: DANIELLE VARNER MD 04/24/2024 20:41:20[facility] 07-05-2024 Cardiology Consult note Date of Service [...] shortness of breath. Was recently discharged from [facility] due to decreased ambulationleft hip pain, diagnosed [...] flow (brisk flow). IMPRESSIONS: Severe CAD in ch[place]. Patent COTO to LAD. 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., 10/01/2023 Nutrition/Health Type of [...] LOUIS RUBIO MD on 04/24/2024 03:45 PM [id number] NoteSinus rhythm Inferior infarct, old Electronic Signature: DANIELLE VARNER MD 04/24/2024 20:34:33[facility] 07-05-2024 NoteSinus rhythm Inferior infarct, old Abnormal T, consider ischemia, anterior leads Prolonged QT interval Electronic Signature: DANIELLE VARNER MD 04/24/2024 08:36:54[facility] 07-05-2024 History and physical note Date of Service 04/24/2024 Chief Complaint shortness of breath History of Present Illness 68-year-old female with a history of CAD status post CABG followed by stent placement 02/2023, bilateral carotid stenosis status post carotid endarterectomy, hypertension, chronic anemia, CKD, depression, thoracic outlet syndrome recently admitted to [place] fo decreased ambulation and left hip pain [...] Use, 07/09/2018 Use: Never., 07/17/2019 Home/Environment 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, 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 MICRO - Microbiology PROCEDURE: Urine [...] Locations *1: This test was performed at: [facility], [address] [place] [address], [facility] , [facility] ([place])04-21-2024 Hospital Discharge instructions Patient Education 04/21/2024 11:41:36 Vitamin B12 Deficiency, Sjlf-pc-Ubbf Vitamin B12 Deficiency Vitamin B12 deficiency means [...] 09/25/2012 Document Revised: 06/16/2019 Document Reviewed: 06/16/2019 [employer] Patient Education 2020 [employer]. 04/21/2024 11:41:27 Anemia Anemia Anemia is a [...] spleen. Follow these instructions at home: Take dgps-sru-ymasrnk and prescription medicines only as told by [...] 11/14/2005 Document Revised: 09/19/2018 Document Reviewed: 11/08/2017 [employer] Patient Education 2020 [employer]. 04/21/2024 11:41:21 Nausea and Vomiting, Adult, Hnqe-ms-Otxx Nausea and Vomiting, Adult Nausea is feeling [...] fruit juice). ?Low-calorie sports drinks. Eat bland, jfab-rf-gncsay foods in small amounts as you are able, such as: ?Bananas. ?Applesauce. ?Rice. ?Low-fat (lean) meats. ?[place]. ?Crackers. Avoid drinking fluids that have a lot of sugar or caffeine in them. This includes energy drinks, sports drinks, and soda. Avoid alcohol. Avoid spicy or fatty foods. General instructions Take xtwp-kvu-dlxhdhy and prescription medicines only as told by your doctor. Drink enough fluid to keep your pee (urine) pale yellow. Wash your hands often with soap and water. If you cannot use soap and water, use hand supervisor record press. Make sure that all people in your [...] too much water in your body. Take ejkg-wqy-kbqzuhd and prescription medicines only as told by [...] 03/25/2009 Document Revised: 01/29/2020 Document Reviewed: 03/17/2019 [employer] Patient Education 2020 [employer] 04/21/2024 11:41:15 Hyponatremia, Dkwd-uh-Cbdt Hyponatremia Hyponatremia is when the amount of [...] symptoms. Follow these instructions at home: Take tvuy-mho-yaougwq and prescription medicines only as told by [...] 06/18/2012 Document Revised: 12/24/2019 Document Reviewed: 09/10/2019 [employer] Patient Education 2020 [employer] Follow Up Care 04/19/2024 21:05:26 With:VELMA REYNOLDS APRN-[facility] Address: [address] [place] [address] [phone] When:04/28/2024 14:15:00 Comments:This is your post-hospital follow-up appointment. With:LUIS ELLIOTT Address: [address] [place] [phone] When:04/28/2024 11:30:00 Comments:This is your post-hospital appointment. Follow-up as scheduled. [facility] 07-02-2024 Note Discharge Instructions Thank you for allowing [facility] to assist you with your healthcare needs. [...] Hospital Follow-Up 04/28/2024 11:30 AM LUIS COBOS [address] [phone] Confirmed CV OV Hospital Follow Up 04/28/2024 02:15 PM EDVELMA LAO [facility] Confirmed PC OV 05/21/2024 03:00 PM EDT LUIS ELLIOTT [address] [id number] Confirmed CV OV 06/15/2024 03:00 PM EDT VELMA REYNOLDS [facility] Confirmed Follow Up Appointments Follow Up with LUIS ELLIOTT When:04/28/2024 11:30 AM EDT Where:[address] [place] [phone] Additional Information: This is your post-hospital appointment. Follow-up as scheduled. Follow Up with VELMA REYNOLDS When:04/28/2024 02:15 PM EDT Where:[address] [facility] [place] [phone] Additional Information: This is your post-hospital follow-up [...] mouth Twice daily with meals Pickup at [facility]/pharmacy #[id number] DID NOT TAKE TODAY Unchanged acetaminophen (Tylenol [...] bedtime Insomnia DID NOT TAKE Pharmacy Information [facility]/pharmacy #[id number]: [address] [place], [place] [phone] What How Much When Comments Stop Taking [...] may report side effects to FDA at 0-533-PQO-3422. What other drugs will affect oral cyanocobalamin? [...] drugs may affect cyanocobalamin, including prescription and fsdx-lyk-hsxgvze medicines, vitamins, and herbal products. Not all [...] to ensure that the information provided by [employer]. ('[employer]') is accurate, up-to-date, and complete, but no guarantee is made to that effect. Drug information contained herein may be time sensitive. [employer] information has been compiled for use by healthcare practitioners and consumers in the [place] and therefore [employer] does not warrant that uses outside of the [place] are appropriate, unless specifically indicated otherwise. [employer]'s drug information does not endorse drugs, diagnose patients or recommend therapy. [facility] drug information isan informational resource designed to [...] effective or appropriate for any given patient. [facility] does not assume any responsibility for any aspect of healthcare administered with the aid of information [facility] provides. The information contained herein is not intended to cover all possible uses, directions, precautions, warnings, drug interactions, allergic reactions, or adverse effects. If you have questions about the drugs you are taking, check with your doctor, nurse or pharmacist. Copyright 7623-0587 [employer]. Version: 9.. Revision Date: 07/23/2023. carvedilol (SERA [...] may report side effects to FDA at 2-066-QHQ-8131. What other drugs will affect carvedilol? Sometimes it is not safe to use certain medications at the same time. Some drugs can affect your blood levels of other drugs you take, which may increase side effects or make the medications less effective. Other drugs may affect carvedilol, including prescription and qocx-sst-jmrpnzz medicines, vitamins,and herbal products. Tell your doctor [...] to ensure that the information provided by [employer]. ('[employer]') is accurate, up-to-date, and complete, but no guarantee is made to that effect. Drug information contained herein may be time sensitive. [employer] information has been compiled for use by healthcare practitioners and consumers in the [place] and therefore [employer] does not warrant that uses outside of the [place] are appropriate, unless specifically indicated otherwise. [employer] drug information does not endorse drugs, diagnose patients or recommend therapy. [employer] drug information isan informational resource designed to [...] effective or appropriate for any given patient. [employer] does not assume any responsibility for any aspect of healthcare administered with the aid of information [employer] provides. The information contained herein is not intended to cover all possible uses, directions, precautions, warnings, drug interactions, allergic reactions, or adverse effects. If you have questions about the drugs you are taking, check with your doctor, nurse or pharmacist. Copyright 9073-8008 [employer]. Version: 16.01. Revision Date: 02/12/2019. ondansetron (oral) [...] may report side effects to FDA at 9-532-JBS-5587. What other drugs will affect ondansetron? Ondansetron [...] interact with ondansetron. This includes prescription and epnf-dwx-ybkoorm medicines, vitamins, and herbal products. Give a [...] to ensure that the information provided by [employer]. ('[employer]') is accurate, up-to-date, and complete, but no guarantee is made to that effect. Drug information contained herein may be time sensitive. [employer] information has been compiled for use by healthcare practitioners and consumers in the [place] and therefore [employer] does not warrant that uses outside of the [place] are appropriate, unless specifically indicated otherwise. [employer] drug information does not endorse drugs, diagnose patients or recommend therapy. [employer] drug information isan informational resource designed to [...] effective or appropriate for any given patient. [employer] does not assume any responsibility for any aspect of healthcare administered with the aid of information [employer] provides. The information contained herein is not intended to cover all possible uses, directions, precautions, warnings, drug interactions, allergic reactions, or adverse effects. If you have questions about the drugs you are taking, check with your doctor, nurse or pharmacist. Copyright 0504-3545 [employer]. Version: 16.. Revision Date: 05/23/2023. Education Materials [...] 09/25/2012 Document Revised: 06/16/2019 Document Reviewed: 06/16/2019 [employer] Patient Education 2020 [employer]. Anemia Anemia is a condition in which [...] spleen. Follow these instructions at home: Take qtcb-afp-hwcyisd and prescription medicines only as told by [...] 11/14/2005 Document Revised: 09/19/2018 Document Reviewed: 11/08/2017 [employer] Patient Education 2020 [employer] Nausea and Vomiting, Adult Nausea is [...] Follow these i (more content not included)... [facility]07-01-2024 Note Date of Service 04/20/2024 Chief Complaint pt [facility] with [facility]/o a fall. was seen this morning at [place] for nausea and abd pain. everything was negative at [place]. tonight she fell and couldnt get out of the tub. History of Present Illness Patient is a 68-year-old female, who follows with Luis Elliott CNP with a past medical history significant for CAD s/p PTCA and CABG, hypertension, chronic kidney disease, and depression[facility]. Patient has an active history recently for ED visits as well as PCP visits. She states that she presented to [facility] ED yesterday morning due to nausea/vomiting and left hip pain. She has been bedbound for about 4 days due to nausea and vomiting and generally not feeling well. 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 Patient was referred to [facility] who plans for surgery in the future and was started on oxycodone for pain. She states that [facility] ED did some lab work and [...] causes. All testing was done at [facility] should beavailable in the system. The last [...] and that cannot be done at [facility] inpatient. She will have to be referred [...] oxycodone for pain. Has follow-up scheduled with [facility]. DVT prophylaxis with SCDs. 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 Has follow-up scheduled with [facility]. DVT prophylaxis with SCDs. Code status: [...] Appointment Date:04/28/2024 11:30:00 AM Scheduled Provider:LUIS ELLIOTT Location:[facility] 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:[facility] Hospital Follow-Up Appointment Date:04/28/2024 02:15:00 PM Scheduled Provider:VELMA REYNOLDS Location:[facility] 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:[facility] Hospital Follow Up Appointment Date:05/21/2024 03:00:00 PM Scheduled Provider:LUIS ELLIOTT Location:[facility] 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: OV Appointment Date:06/15/2024 03:00:00 PM Scheduled Provider:VELMA REYNOLDS Location:[facility] 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:[facility] Future Scheduled Tests Laboratory* Complete Blood Count 10/03/23 Radiology* BD Bone Density DEXA Axial Skeleton 06/19/23 [facility] 06-30-2024 Note ORIGINAL EXAMINATION: CT OF THE [...] Sign Date: 04/19/2024 11:32:28 PM Ordering Provider: [facility]06-30-2024 Note ORIGINAL EXAMINATION: CT OF [...] Sign Date: 04/19/2024 11:38:20 PM Ordering Provider: [facility]06-30-2024 Note ORIGINAL EXAMINATION: 2 XRAY [...] Sign Date: 04/19/2024 11:31:45 PM Ordering Provider: [facility]06-30-2024 Note ORIGINAL EXAMINATION: ONE XRAY [...] Sign Date: 04/19/2024 11:32:35 PM Ordering Provider: [facility]06-30-2024 NoteSinus rhythm Inferior infarct, old Baseline wander in lead(s) II,III,aVR,aVF Electronic Signature: KARAN FRANCOIS DO 04/19/2024 21:30:18[facility] 06-25-2024 Hospital Discharge instructions Patient Education 04/14/2024 [...] or swelling over your back or spine [id number] [employer]. [address] [place] [address]. All rights reserved. This information is not intended as a substitute for professional medical care. Always follow yourhealthcare professional's instructions. Follow Up Care 04/14/2024 16:32:09 With:KRISTINE WRIGHT MD, Neurosurgery Address: [address] [place] [address] [place] [address]- [phone] When:2-4 days only if needed With:[facility]LLI[facility] Address: [address] [place] [phone] [phone] When:2-4 days [facility] 06-25-2024 Note Discharge Instructions Thank you for allowing [facility] to assist you with your healthcare needs. The following is importantdischarge information regarding your hospital visit. Diagnosis from Today's Visit Sciatic pain What to Do Next Instructions from Your Care Team No qualifying data available. Post Acute Orders No qualifying data available. You Need to Schedule the Following Appointments Follow Up with KRISTINE WRIGHT MD, Neurosurgery When:Within 2-4 days, only if needed Where:[address] [place] [address] [phone] Follow Up with LUIS ELLIOTT When:Within 2-4 days Where:[address] [facility] [place] [address]- [phone] Allergies Ultram confusion codeine nausea lisinopril Cough [...] or swelling over your back or spine [phone] [employer]. [address] [place] [address], [place] [address]. All rights reserved. This information is not intended as a substitute for professional medical care. Always follow yourhealthcare professional's instructions. Additional Information VACCINATE! IT SAVES LIVES! Members of the community who have not yet received the COVID-19 vaccine and would like to receive it can visit one of [facility] vaccine clinics. There are many vaccine clinic locations within the [facility]. For locations and available times, please visit www.gettheshot.coronavirus.[place].gov/. It is important to note that some COVID mobile vaccine clinics are held outdoors and may be canceled in rainy or stormy conditions. To learn more about pediatric vaccinations (ages 5-11), we invite you to visit the [facility] webpage. https://www.[employer]erations.org/pages/8529-Cyuhz-Bazhoygaksa-Nbxsxyxnuh-Ydhai-Pcz stions.htmlTo learn more about the COVID-19 vaccine, we invite you to visit the CDC website for a list of frequently asked questions. https://www.cdc.gov/coronavirus/2019-ncov/vaccines/faq.html [email or web address] Patient Portal Access Instructions: Stay connected with your healthcare team and access your personal medical information anytime with the [email or web address] Patient Portal. If you would like a full copy of your medical records please contact the [facility] Medical Records Department Saturday through Saturday between 8a.m. and 4:30p.m. Please follow the directions below to access the portal: 1.Access the email account you provided upon registration to the hospital.2.Look for an invitation email from [facility].3.Open the email and access the invitation link: Accept Invitation to [email or web address].Fill in the required del real to create your account. Sign into [email or web address] with your username and password that you [...] you will allow to register on the [email or web address] Patient Portal for access to your information. You can also access the [employer] Patient Portal on the [employer]ak. Simply click on Health Records under [employer] and then click on the SuppreMol logo. HOW TO SAFELY DISPOSE OF PRESCRIPTION [...] Call your local pharmacy or go to http://[employer].appsplit/7A9Bg0o to find one close to you.3.Make use of household items: Use cat litter or old coffee grounds to dispose medications if other options arenot available. Mix your drugs with these household products, seal them in an airtight container andthrow it into the garbage. Call [facility]: [phone] to be sure your drugs can be [...] am aware that I should contactmy doctor. Patient/Complex Manager Signature: Date/Time: Relationship to Patient: Witness Name/Signature: Date/Time: [facility]05-14-2024 Hospital Discharge instructions Patient Education 03/03/2024 17:42:11 [...] affected hand Decreased movement of the hand [phone] [employer]. [address] [place] [address], [place] [address]. All rights reserved. This information is not intended as a substitute for professional medical care. Always follow yourhealthcare professional's instructions. Follow Up Care 03/03/2024 15:47:45 With:Go to emergency room if symptoms worsen Address:Unknown When:2-4 days With:LUIS ELLIOTT APRN-BUSINESS IMPROVEMENT MANAGER Address: [address] [place], [place] [address], [place] [address]- [phone] When:5 to 7 days [facility] 05-14-2024 Note Discharge Instructions Thank you for [...] Within 5 to 7 days Where: [address] [place] [address]- [phone] Allergies Ultram (confusion) codeine (nausea) lisinopril (Cough) [...] affected hand Decreased movement of the hand [phone] [employer]. [address] [place] [address], [place] [address]. All rights reserved. This information is not intended as a substitute for professional medical care. Always follow yourhealthcare professional's instructions. Additional Information VACCINATE! IT SAVES LIVES! Members of the community who have not yet received the COVID-19 vaccine and would like to receive it can visit one of [facility] vaccine clinics. There are many vaccine clinic locations within the [facility]. For locations and available times, please visit www.gettheshot.coronavirus.[place].gov/. It is important to note that some COVID mobile vaccine clinics are held outdoors and may be canceled in rainy or stormy conditions. To learn more about pediatric vaccinations (ages 5-11), we invite you to visit the [facility] webpage. https://www.[facility].org/pages/9213-Nnicg-Owbqbjvbznw-Ctfoprrnpy-Epoxy-Zbv stions.htmlTo learn more about the COVID-19 vaccine, we invite you to visit the CDC website for a list of frequently asked questions. https://www.cdc.gov/coronavirus/2019-ncov/vaccines/faq.html [facility] Patient Portal Access Instructions: Stay connected with your healthcare team and access your personal medical information anytime with the [facility] Patient Portal. If you would like a full copy of your medical records please contact the [facility] Medical Records Department Saturday through Saturday between 8a.m. and 4:30p.m. Please follow the directions below to access the portal: 1.Access the email account you provided upon registration to the [facility].2.Look for an invitation email from [facility].3.Open the email and access the invitation link: Accept Invitation to [email or web address].Fill in the required del real to create [...] you will allow to register on the [facility] Patient Portal for access to your information. You can also access the [email or web address] Patient Portal on the [employer]ak. Simply click on Health Records under [employer] and then click on the [employer]la logo. [...] Call your local pharmacy or go to http://[employer].appsplit/5C1Dm5a to find one close to you.3.Make use of household items: Use cat litter or old coffee grounds to dispose medications if other options arenot available. Mix your drugs with these household products, seal them in an airtight container andthrow it into the garbage. Call [facility]: [phone] to be sure your drugs can be [...] am aware that I should contactmy doctor. Patient/Complex Manager Signature: Date/Time: Relationship to Patient: Witness Name/Signature: Date/Time: [facility]05-14-2024 Note Discharge Instructions Thank you for allowing [facility] to assist you with your healthcare needs. [...] Within 5 to 7 days Where: [address] [facility] [place] [address] [phone] Allergies Ultram (confusion) codeine (nausea) lisinopril (Cough) [...] affected hand Decreased movement of the hand [phone] [employer]. [address] [place] [address], [place] [address]. All rights reserved. This information is not intended as a substitute for professional medical care. Always follow yourhealthcare professional's instructions. Additional Information VACCINATE! IT SAVES LIVES! Members of the community who have not yet received the COVID-19 vaccine and would like to receive it can visit one of [facility] vaccine clinics. There are many vaccine clinic locations within the [facility]. For locations and available times, please visit www.gettheshot.coronavirus.[place].gov/. It is important to note that some COVID mobile vaccine clinics are held outdoors and may be canceled in rainy or stormy conditions. To learn more about pediatric vaccinations (ages 5-11), we invite you to visit the [facility] webpage. https://www.[employer]erations.org/pages/2830-Osejz-Ehjiwqpdbxl-Yzgihrakcq-Aaayz-Wbf stions.htmlTo learn more about the COVID-19 vaccine, we invite you to visit the CDC website for a list of frequently asked questions. https://www.cdc.gov/coronavirus/2019-ncov/vaccines/faq.html [employer] [facility] Patient Portal Access Instructions: Stay connected with your healthcare team and access your personal medical information anytime with the [email or web address] Patient Portal. If you would like a full copy of your medical records please contact the [facility] Medical Records Department Saturday through Saturday between 8a.m. and 4:30p.m. Please follow the directions below to access the portal: 1.Access the email account you provided upon registration to the hospital.2.Look for an invitation email from [facility].3.Open the email and access the invitation link: Accept Invitation to [facility]4.Fill in the required del real to create your account. Sign into [email or web address] with your username and password that you [...] you will allow to register on the [employer] Patient Portal for access to your information. You can also access the [employer] Patient Portal on the ScoreStreak. Simply click on Health Records under [employer] and then click on the SuppreMol logo. HOW TO SAFELY DISPOSE OF PRESCRIPTION [...] Call your local pharmacy or go to http://[employer].appsplit/4S9Cy8a to find one close to you.3.Make use of household items: Use cat litter or old coffee grounds to dispose medications if other options arenot available. Mix your drugs with these household products, seal them in an airtight container andthrow it into the garbage. Call [facility]: [phone] to be sure your drugs can be [...] am aware that I should contactmy doctor. Patient/Complex Manager Signature: Date/Time: Relationship to Patient: Witness Name/Signature: Date/Time: [facility]05-14-2024 Note ORIGINAL EXAMINATION: THREE XRAY VIEWS OF [...] Date: 03/03/2024 4:32:59 PM Ordering Provider: AKI [facility]08-30-2023 Note ORIGINAL EXAMINATION: BONE DENSITOMETRY 2023 3:18 [...] Date: 2023 3:45:59 PM Ordering Provider: LUIS [facility]10-25-2022 Note ORIGINAL NM MYOCARDIAL SPECT STRESS/REST CLINICAL [...] Sign Date: 08/14/2022 4:22:45 PM Ordering Provider:Velma [facility]10-25-2022 Note ORIGINAL NM MYOCARDIAL SPECT STRESS/REST CLINICAL [...] Sign Date: 08/14/2022 4:22:45 PM Ordering Provider:Velma [facility]08-09-2022 Hospital Discharge instructions Patient Education 05/29/2022 08:53:26 [...] 09:54:02 With:APRIL PABON JR, MD, Surgery Address: [address] [place] [phone] When: Unknown [facility] 08-09-2022 Summary of episode note Discharge Instructions Thank you for allowing [facility] to assist you with your healthcare needs. The following is importantdischarge information regarding your hospital visit. Your Care Team LUIS ELLIOTT What to do next Scheduled Follow-Up Appointments 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 When With Where Contact InformationPC OV Follow Up 07/31/2022 10:00 AM LUIS COBOS [address] [address] Follow Up Appointments Follow Up with APRIL PABON JR, MD, Surgery When Where: [address] [place] [phone] Education Materials Minor Surgery Discharge Instructions __X__ [...] are many vaccine clinic locations within the [facility]. For locations and available times, please visit https://gettheshot.coronavirus.[place].gov/. It is important to note that some COVID mobile vaccine clinics are held outdoors and may be canceled in rainy or stormy conditions. To learn more about pediatric vaccinations (ages 5-11), we invite you to visit the [facility] webpage. https://www.[employer]erations.org/pages/7484-Eosvk-Xzqucvbjsnd-Wojtapxzha-Xllrk-Pxq stions.htmlTo learn more about the COVID-19 vaccine, we invite you to visit the [facility] website for a list of frequently asked questions. https://MailMeNetwork/assets/Mieldipo-dif-Wflhkyjj/fkizi-Unjfhkh-Zcbgiwhbbk _Asked-Questions.pdf [facility] Patient Portal Access Instructions: Stay connected with your healthcare team and access your personal medical information anytime with the [email or web address] Patient Portal.If you would like a full copy of your medical records, please contact the [facility] Records Department, Saturday through Saturday between 8a.m. and 4:30p.m. Please follow the directions below to access the portal: 1.Access the email account you provided upon registration to the [facility].2.Look for an invitation email from [facility].3.Open the email and access the invitation link: Accept Invitation to [email or web address].Fill in the required del real to create your account. Sign into [email or web address] with your username and password that you [...] you will allow to register on the [email or web address] Patient Portal for access to your information. You can also access the [employer] [facility] Patient Portal on the Degreed juli. Simply click on Health Records under [employer] and then click on the SuppreMol logo. HOW TO SAFELY DISPOSE OF PRESCRIPTION [...] Call your local pharmacy or go to http://[employer].appsplit/0Q8Rz0r to find one close to you.3.Make use of household items: Use cat litter or old coffee grounds to dispose medications if other options arenot available. Mix your drugs with these household products, seal them in an airtight container andthrow it into the garbage. Call [facility]: [phone] to be sure your drugs can be [...] am aware that I should contactmy doctor. Patient/Complex Manager Signature: Date/Time: Relationship to Patient: Witness Name/Signature: [facility] App[facility]ments Appointment Date:05/01/2022 09:00:00 AM Scheduled Provider:LUIS ELLIOTT Location:[facility] 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:PC OV [facility] Evaluation + Plan note Future Appointments Appointment Date:07/31/2022 10:00:00 AM Scheduled Provider:LUIS ELLIOTT Location:[facility] 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: OV Follow Up Future Scheduled Tests Laboratory* Urinalysis 05/01/22 * Urine Culture 05/01/22 Radiology* US Soft Tissue Mass 05/01/22 [facility] Evaluation + Plan note Future Appointments Appointment Date:07/31/2022 10:00:00 AM Scheduled Provider:LUIS ELLIOTT Location:[facility] 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: OV Follow Up Diagnostic Tests Pending * Folate Level 05/02/22 * Vitamin B12 Level 05/02/22 * Urine Culture 05/02/22 Future Scheduled Tests Laboratory* Urinalysis 05/01/22 * Urine Culture 05/01/22 Radiology* US Soft Tissue Mass 05/01/22 [facility] Evaluation + Plan note Future Appointments Appointment Date:07/31/2022 10:00:00 AM Scheduled Provider:LUIS ELLIOTT Location:[facility] 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:PC OV Follow Up Future Scheduled Tests Laboratory* Urinalysis 05/01/22 * Urine Culture 05/01/22 [facility] Evaluation + Plan note Future Appointments Appointment Date:08/30/2022 01:00:00 PM Scheduled Provider:VELMA REYNOLDS Location:[facility] 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:CV OV Appointment Date:09/06/2022 03:30:00 PM Scheduled Provider:LUIS ELLIOTT Location:[facility] 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:PC OV Future Scheduled Tests Laboratory* Urinalysis 05/01/22 * Thyroid Stimulating Hormone 07/30/22 * Urine Culture 05/01/22 * Complete Blood Count 07/30/22 * Lipid Profile 07/30/22 * Complete Metabolic Panel 07/30/22 [facility] Evaluation + Plan note Future Appointments Appointment Date:09/17/2022 03:15:00 PM Scheduled Provider:ANUM GUY MD Location:[facility] 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: CREDIT RATING INSPECTOR Appointment Date:10/11/2022 02:30:00 PM Scheduled Provider:VELMA REYNOLDS Location:[facility] 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:CV OV Appointment Date:12/06/2022 03:30:00 PM Scheduled Provider:LUIS ELLIOTT Location:[facility] 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:PC OV Follow Up Diagnostic Tests Pending * Urine Culture 09/10/22 * Antinuclear Antibody Screen, Serum 09/10/22 Future Scheduled Tests Laboratory* Urinalysis 05/01/22 * Thyroid Stimulating Hormone 07/30/22 * Urine Culture 05/01/22 * Complete Blood Count 07/30/22 * Lipid Profile 07/30/22 * Complete Metabolic Panel 07/30/22 [facility] Evaluation + Plan note Future Appointments Appointment Date:08/29/2023 03:30:00 PM Scheduled Provider:LUIS ELLIOTT Location:[facility] 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:PC Wellness Medicare Appointment Date:12/09/2023 03:00:00 PM Scheduled Provider:VELMA REYNOLDS Location:[facility] 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:CV OV Future Scheduled Tests Laboratory* [...] BD Bone Density DEXA Axial Skeleton 05/29/23 [facility] Evaluation + Plan note Future Appointments Appointment Date:08/29/2023 03:30:00 PM Scheduled Provider:LUIS ELLIOTT Location:[facility] 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:PC Wellness Medicare Appointment Date:12/09/2023 03:00:00 PM Scheduled Provider:VELMA REYNOLDS Location:[facility] 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:CV OV Future Scheduled Tests Laboratory* Basic Metabolic Panel 09/06/23 * Ferritin 09/15/22 * Iron Level 09/15/22 * Thyroid Stimulating Hormone 07/30/22 * Thyroid Stimulating Hormone 09/15/22 * Complete Blood Count 07/30/22 * Complete Blood Count 09/06/23 * Lipid Profile 07/30/22 * Methylmalonic Acid 09/06/23 * Homocysteine 09/06/23 * Complete Metabolic Panel 07/30/22 Radiology* BD Bone Density DEXA Axial Skeleton 06/19/23 [facility] Evaluation + Plan note Future Appointments Appointment Date:08/29/2023 03:30:00 PM Scheduled Provider:LUIS ELLIOTT Location:[facility] 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:PC Wellness Medicare Appointment Date:12/09/2023 03:00:00 PM Scheduled Provider:VELMA REYNOLDS Location:[facility] 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:CV OV Diagnostic Tests Pending * Methylmalonic Acid 08/01/23 Future Scheduled Tests Laboratory* Thyroid Stimulating Hormone 09/15/22 Radiology* BD Bone Density DEXA Axial Skeleton 06/19/23 [facility] evaluation + Plan note Future Appointments Appointment Date:02/20/2024 02:00:00 PM Scheduled Provider:LUIS ELLIOTT Location:[facility] 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:PC OV Appointment Date:06/15/2024 03:00:00 PM Scheduled Provider:VELMA REYNOLDS Location:[facility] 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:CV OV Future Scheduled Tests Laboratory* Complete Blood Count 10/03/23 Radiology* BD Bone Density DEXA Axial Skeleton 06/19/23 [facility] evaluation + Plan note Future Appointments Appointment Date:05/21/2024 03:00:00 PM Scheduled Provider:LUIS ELLIOTT Location:[facility] 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:PC OV Appointment Date:06/15/2024 03:00:00 PM Scheduled Provider:VELMA REYNOLDS Location:[facility] 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:CV OV Future Scheduled Tests Laboratory* Complete Blood Count 10/03/23 Radiology* BD Bone Density DEXA Axial Skeleton 06/19/23 [facility] evaluation + Plan note Future Appointments Appointment Date:04/28/2024 11:30:00 AM Scheduled Provider:LUIS ELLIOTT Location:[facility] 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:PC OV Hospital Follow-Up Appointment Date:04/28/2024 02:15:00 PM Scheduled Provider:VELMA REYNOLDS Location:[facility] 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:CV OV Hospital Follow Up Appointment Date:05/21/2024 03:00:00 PM Scheduled Provider:LUIS ELLIOTT Location:[facility] 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:PC OV Appointment Date:06/15/2024 03:00:00 PM Scheduled Provider:VELMA REYNOLDS Location:[facility] 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:CV OV Future Scheduled Tests Laboratory* Complete Blood Count 12/14/23 Radiology* BD Bone Density DEXA Axial Skeleton 06/19/23 [facility] Evaluation + Plan note Future Appointments Appointment Date:07/22/2024 03:30:00 PM Scheduled Provider:LUIS ELLIOTT Location:[facility] 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: OV Pre Op Appointment Date:08/26/2024 02:00:00 PM Scheduled Provider:LUIS ELLIOTT Location:[facility] 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: OV Diagnostic Tests Pending * MRSA (PCR) 07/14/24 Future Scheduled Tests Laboratory* Ferritin 05/21/24 * Folate Level 05/21/24 * Iron Level 05/21/24 * Thyroid Stimulating Hormone 05/21/24 * Vitamin B12 Level 05/21/24 * Complete Blood Count 05/21/24 * Complete Blood Count 10/03/23 * Vitamin D Level 05/21/24 * Complete Metabolic Panel 05/21/24 [facility] Evaluation + Plan note Future Appointments Appointment Date:08/14/2024 12:30:00 PM Scheduled Provider:LUIS ELLIOTT Location:[facility] 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:[facility] Hospital Follow-Up Appointment Date:08/26/2024 02:00:00 PM Scheduled Provider:LUIS ELLIOTT Location:[facility] 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: OV Future Scheduled Tests Laboratory* Ferritin 05/21/24 * Folate Level 05/21/24 * Iron Level 05/21/24 * Thyroid Stimulating Hormone 05/21/24 * Vitamin B12 Level 05/21/24 * Complete Blood Count 05/21/24 * Complete Blood Count 10/03/23 * Vitamin D Level 05/21/24 * Complete Metabolic Panel 05/21/24 [facility] Evaluation note* Diagnosis Single subsegmental pulmonary embolism without acute cor pulmonale (HCC)- [facility] Avascular necrosis of bone of left hip (HCC)- [facility] Narrative No data available for this section [facility] Hospital Discharge instructions No data available for this section [facility] Nurse Progress note* ASIYA Salazar: PERFORM Event Display: Progress Note-Nurse Authored Date: [id number] [facility] Progress note No data available for this section [facility] Summary note* ASIYA Salazar: PERFORM Event Display: Patient Summary Documents Authored Date: [id number] [facility] Summary Purpose Family History No Family History Records Found Advance Directives No Advanced Directives Records FoundNo Advanced Directives Records FoundNo Advanced Directives Records FoundNo Advanced Directives Records Found Reason for Referral Specialty Diagnoses / Procedures Referred By Jordon upton Referred To Contact Orthopedics Diagnoses Avascular necrosis of bone of left hip (HCC) Procedures CONSULT TO ORTHOPAEDICS OFFICE/OUTPATIENT [facility] 60 MINUTES Jaswinder Schmidt, [address] [place] [address] Referral ID Status Reason Start Date Expiration Date Visits Requested Visits Authorized [id number] Authorized PCP Requested Referral 06/25/2024 06/25/2025 1 1 Additional Source Comments Care Team (unrecognized sect ion and content) Equipment Associate Relationship Specialty Start Date End Date Luis Elliott CNP [address] [place] [address] PCP - General Family Medicine 12/24/19 Velma Reynolds CNP [address] [place] [id number] Family Medicine 06/17/24 Equipment Associate Relationship Specialty Start Date End Date Luis Elliott CNP [address] [place] [address] PCP - General Family Medicine 12/24/19 Velma Reynolds CNP [address] [place] [id number] Family Medicine 06/17/24 Care Team (unrecognized sect ion and content) Care Team Personnel Name: LUIS ELLIOTT Position: P4 Advanced Practice Nurse Med Service: Active Provider Member Role: Primary Care Physician Address: Address: [address] [place] [address]- Name: VELMA REYNOLDS Position: P4 Advanced Practice Nurse Med Service: Active Provider Member Role: Extruder Address: Address: [address] [place] [address]- Name: MOLINA COPELAND MD Position: Physician Med Service: Admitting Member Role: Digital Commentator Address: Address: [address] [place] [address]- Care Team Related Persons Name: PIA VALDESER Address: Home [address] [place], [place] [phone] [place] Care Team Personnel Name: LUIS ELLIOTT Position: P4 Advanced Practice Nurse Med Service: Active Provider Member Role: Primary Care Physician Address: Address: [address] [place] [id number] [place] [address] Name: VELMA REYNOLDS Position: P4 Advanced Practice Nurse Med Service: Active Provider Member Role: Extruder Address: Address: [address] [place] [address]- Name: MOLINA COPELAND MD Position: Physician Med Service: Admitting Member Role: Digital Commentator Address: Address: [facility] [address] [address]- Care Team Related Persons Name: PIA VALDESER Address: Home [address] [place], [place] [phone] [place] Care Team Personnel Name: LUIS ELLIOTT Position: P4 Advanced Practice Nurse Med Service: Active Provider Member Role: Primary Care Physician Address: Address: [address] [place] [address]- [place] Name: VELMA REYNOLDS Position: P4 Advanced Practice Nurse Med Service: Active Provider Member Role: Extruder Address: Address: [address] [place] [address] [address] [place] [address]- Name: MOLINA COPELAND MD Position: Physician Med Service: Admitting Member Role: Digital Commentator Address: Address: [address] [facility] [address] [place] [address]- [place] Care Team Related Persons Name: AMANDA FLORHAM PARK Address: Home [address] [place], [place] [phone] [place] Care Team Personnel Name: LUIS ELLIOTT Position: P4 Advanced Practice Nurse Med Service: Active Provider Member Role: Primary Care Physician Address: Address: [address] [place] [address]- Name: VELMA REYNOLDS Position: P4 Advanced Practice Nurse Med Service: Active Provider Member Role: Extruder Address: Address: [address] [place] [address] [place] [address]- Name: MOLINA COPELAND MD Position: Physician Med Service: Admitting Member Role: Digital Commentator Address: Address: [address] [facility] [address] [place] [address]- Care Team Related Persons Name: BEE VALDES Address: Home [address] [place], [place] [phone] [place] Care Team Personnel Name: LUIS ELLIOTT Position: P4 Advanced Practice Nurse Member Role: Primary Care Physician Address: Address: [address] [place] [address]- Name: VELMA REYNOLDS Position: P4 Advanced Practice Nurse Member Role: Extruder Address: Address: [address] [facility] [address] [place] [address]- [place] Name: MOLINA COPELAND MD Position: Physician Member Role: Digital Commentator Address: Address: [address] [facility] [address] [place] [address]- [place] Care Team Related Persons Name: BEE VALDES Address: Home [address] [place], [place] [phone] Care Team Personnel Name: LUIS ELLIOTT GAMABUSINESS IMPROVEMENT MANAGER Position: P4 Advanced Practice Nurse Member Role: Primary Care Physician Address: Address: [address] [facility] [place] [address]- [place] Name: JYOTI VELMA APRN-BUSINESS IMPROVEMENT MANAGER Position: P4 Advanced Practice Nurse Member Role: Extruder Address: Address: [address] [place] [address] [address] [facility] [place] [address]- [place] Name: MOLINA COPELAND MD Position: Physician Member Role: Digital Commentator Address: Address: [address] [facility] [address] [place] [address]- Care Team Related Persons Name: BEE VALDES Address: Home [address] [place], [place] [phone] INFORMATION SOURCE (unrecogn ized section and content) DATE CREATED AUTHOR 06/12/2024 [facility] ([place]) DATE CREATED AUTHOR AUTHOR'S ORGANIZ ATION 08/06/2024 [facility] DATE CREATED AUTHOR AUTHOR'S ORGANIZ ATION 08/09/2024 [facility] DATE CREATED AUTHOR AUTHOR'S ORGANIZ ATION 08/13/2024 [facility] Source Comments (unrecognize d section and content) In the event this informatio n is protected by the Federal Confidentiality of Alcohol and Drug Abuse Patient Records regulations: The Federal rules restrict any use of the information to criminally investigate or prosecute any alcohol or drug abuse patient.[facility] the event this information is protected by the Federal Confidentiality of Alcohol and Drug Abuse Patient Records regulations: The Federal rules restrict any use of the information to criminally investigate or prosecute any alcohol or drug abuse patient.[facility] Reason for Visit (unrecogniz ed section and [...] BE BASED ON THE PRIMARY CLINICAL RECORDS. [facility]. provides no warranty or guarantee of the accuracy or completeness of information in this document.
--- OUTSIDE RECORDS SUMMARY | 2024-08-16 23:57 | XMS RPT_ITS | CCD ---
Author Organization [facility] Care Team Providers Care Mason Helper Name Role Phone EARL ORO, LUIS Primary Care Physician EARL ORO, LUIS Attending Unavailabl e BALTES MANAGER MONEY-INDUSTRIAL TECH INSTRUCTOR, [facility] Care Unavailabl e BALTES MANAGER [employer] IN[employer], LUIS Attending Unavailabl e BALTES MANAGER MONEY-INDUSTRIAL TECH INSTRUCTOR, [facility] Care Unavailabl e BALTES MANAGER MONEY-INDUSTRIAL TECH INSTRUCTOR, [facility] Care Unavailabl e BALTES MANAGER [employer]ONE[employer] IN[employer], LUIS Attending UnavailAGUILAR Collins MD Attending Unavaila ble BALTES MANAGER MONEY-INDUSTRIAL TECH INSTRUCTOR, [facility] Unavailabl yvonne JESUS MD, DR PHILLIPS Consulting Unavailab Amanuel ROGERS, CRISTIAN Admitting Unavailable ISIDORO GARLAND MD, DR JAIDEN CHENG Consulting Unavailpalmira YANG MD, CHRISTIAN Consulting Taurus MAYORGA MD, ROXY Gong Consulting Unavailable EARL SMITHN-ESAU, LUIS Attending Unavailabl e BALTES MANAGER MONEY-INDUSTRIAL TECH INSTRUCTOR, [facility] Care Unavailabl e JYOTI MANAGER MONEY-INDUSTRIAL TECH INSTRUCTORVELMA Attending Unavailab le BALTES MANAGER MONEY-INDUSTRIAL TECH INSTRUCTOR, [facility] Care Unavailabl e BALTES MANAGER MONEY-INDUSTRIAL TECH INSTRUCTOR, [facility] Care Unavailabl e CARMELA MONSON, DR TATIANA Chavis Attending Unavailabl e BALTES MANAGER MONEY-INDUSTRIAL TECH INSTRUCTOR, [facility] Care Unavailabl e SHWETHA KIM Attending Unavailable CANDIDA MANAGER MONEY-INDUSTRIAL TECH INSTRUCTOROKSANA Consulting Unavaila ble MELISSATES MANAGER MONEY-INDUSTRIAL TECH INSTRUCTOR, [facility] Care Unavailabl e KULWINDER MANAGER MONEY-INDUSTRIAL TECH INSTRUCTORMEGAN Admitting Unavail VENTURA Crews DO Attending Taurus VELASCO MD, DR ONOFRE Attending Unavailabl e BALTES MANAGER MONEY-INDUSTRIAL TECH INSTRUCTOR, [facility] Care Unavailabl yvonne ALANIS MD, DR STRONG Attending Unavailab le BALTES MANAGER MONEY-INDUSTRIAL TECH INSTRUCTOR, [facility] Care Unavailabl e BALTES MANAGER MONEY-INDUSTRIAL TECH INSTRUCTOR, LUIS Primary Care Unavailabl e YADYWon , ZULY Attending Unavailable BALTES MANAGER [facility], LUIS Attending Unavailabl e BALTES MANAGER [facility], LUIS Primary Care Unavailabl e BALTES MANAGER [facility], LUIS Attending Unavailabl e BALTES MANAGER [facility], [place] Primary Care Unavailabl e Baltes INDUSTRIAL TECH INSTRUCTOR, Eola Primary Care Provider [phone] Velma Reynolds CNP Unavailable JASWINDER SCHMIDT Referring Unavailable BALTES, LUIS Primary Care Unavailable JASWINDER SCHMIDT Attending Unavailable BALTES, LUIS Primary Care Unavailable BALTES MANAGER [facility], [place] Primary Care Unavailabl yvonne PEDRO MD, DR MAGED Chavis Attending Unavailab noemi PEDRO MD, DR MAGED Chavis Admitting Unavailab noemi PEDRO MD, DR MAGED Chavis Attending Unavailab le BALTES MANAGER [facility], [place] Primary Care Unavailabl e BALTES MANAGER [facility], LUIS Consulting Unavailabl e KENNEN MANAGER [facility], SIMA Diaz Consulting Luigi PEDRO MD, DR MAGED Chavis Attending Unavailab le BALTES MANAGER [facility], [place] Primary Care Unavailabl e Allergies Allergy Classification Reported Allergen(s) Allergy Type Date of Onset Reaction(s) Facility (20 sources) Codeine; Translations: [codeine] Drug Allergy 6 nausea [facility] (20 sources) Lisinopril; Translations: [lisinopril] Drug Allergy 0 Other: See Comments [facility] (20 sources) traMADol; Translations: [tramadol] Drug Allergy confusion, Unknown [facility] (2 sources) altram [Other] Propensity to adverse reactions [address] [facility] (1 source) OTHER; Translations: [OTHER] Propensity to adverse reactions (disorder) [address] [facility] Repository Medications Current Medications Medication Drug Class(es) Dates Sig (Normalized) Sig (Original) acetaminophen 1000 mg oral tablet (20 sources) Start: 08-05-2024 take 1 tablet by mouth once daily Tylenol Dose : 1,000 mg = 2 tab(s), Oral, TID, not to exceed 3000 mg/day, 0 Refill(s) Start Date: 08/05/24 Status: Ordered Start: 01-05-2020 take 2 tablets by [facility] every six hours acetaminophen (TYLENOL) 325 mg [...] qDay, # 90 tab(s), 3 Refill(s), Pharmacy: [facility] #[id number], 155, cm, 05/22/21 13:28:00 EDT, Height, kg, 05/22/21 13:28:00 EDT, Dosing Weight Start Date: 07/19/21 Status: Ordered apixaban 5 mg oral tablet (4 sources) Factor Xa Inhibitor Start: 05-26-2024 Eliquis 5 mg oral tablet Dose : 5 mg = 1 tab(s), Oral, BID, # 60 tab(s), 3 Refill(s), Pharmacy: [facility]/pharmacy #[id number], 155, cm, 05/26/24 14:11:00 EDT, Height, 56.7, kg, 05/26/24 14:11:00 EDT, Dosing Weight Start Date: 05/26/24 Status: Ordered Start: 04-30-2024 Eliquis 5 mg o ral tablet Dose : 5 mg = 1 tab(s), Oral, BID, # 60 tab(s), 0 Refill(s), Pharmacy: [facility]/pharmacy #[id number], 155, cm, 04/24/24 4:14:00 EDT, Height, 65.6, kg, 04/24/24 4:14:00 EDT, Dosing Weight Start Date: 04/30/24 Status: Ordered aspirin 81 mg chewable tablet (11 sources) Platelet Aggregation Inhibitor, Nonsteroidal Anti-inflammatory Drug Start: 03-11-2023 aspirin 81 mg oral tablet, chewable Dose : 81 mg = 1 tab(s), Oral, Daily, # 30 tab(s), 11 Refill(s), Pharmacy: [facility] #[id number], 155, cm, 03/11/23 8:04:00 EDT, Height Start Date: 03/11/23 Status: Ordered atorvastatin 40 mg oral tablet (20 sources) HMG-CoA Reductase Inhibitor Start: 01-05-2020 atorvastatin 40 mg oral tablet Dose : 40 mg = 1 tab(s), Oral, qHS, # 90 tab(s), 3 Refill(s), Pharmacy: [facility], 156, cm, 07/22/24 15:12:00 EDT, [...] 0 Refill(s), 03/05/24 5:01:00 PM EDT, Pharmacy: [facility]/pharmacy #[id number], Cough, 159, cm, 02/27/24 16:14:00 EDT, [...] qAM, # 180 tab(s), 0 Refill(s), [id number], Osteopenia Hypocalcemia, 156.21, cm, 08/10/20 8:55:00 EDT, Height, kg, 08/10/20 8:55:00 EDT, Dosing Weight Start Date: 08/10/20 Status: Ordered carvedilol 12.5 mg oral tablet (20 sources) alpha-Adrenergic Bandar, beta-Adrenergic Bandar Start: 07-23-2024 carvedilol 12.5 mg oral tablet Dose : 12.5 mg = 1 tab(s), Oral, BIDM, # 180 tab(s), 3 Refill(s), Pharmacy: [facility], 156, cm, 07/22/24 15:12:00 EDT, Height, kg, 07/22/24 15:12:00 EDT, Dosing Weight Start Date: 07/23/24 Status: Ordered Start: 04-21-2024 carvedilol 12. 5 mg oral tablet Dose : 12.5 mg = 1 tab(s), Oral, BIDM, # 60 tab(s), 0 Refill(s), Pharmacy: [facility]/pharmacy #[id number], 155, cm, 04/20/24 0:46:00 EDT, Height, kg, 04/20/24 0:46:00 EDT, Dosing Weight Start Date: 04/21/24 Status: Ordered Start: 04-27-2021 take 1 tablet by terence twice daily carvedilol 25 mg oral tablet 1 tab(s), Oral, BID, # 180 tab(s), 1 Refill(s), Pharmacy: [id number], 157.5, cm, 12/09/23 14:45:00 EST, Height, kg, 12/09/23 14:45:00 EST, Dosing Weight Start Date: 01/31/24 Status: Ordered cefdinir 300 mg oral capsule (1 source) Cephalosporin Antibacterial Start: 04-30-2024 End: 05-14-2024 cefdinir 300 mg oral capsule Dose : 300 mg = 1 cap(s), Oral, q12h, X 14 day(s), # 28 cap(s), 0 Refill(s), 05/14/24 11:48:00 AM EDT, Pharmacy: [facility]/pharmacy #[id number], 155, cm, 04/24/24 4:14:00 EDT, Height, [...] 90 tab(s), 3 Refill(s), Pharmacy: [facility], 156, cm, 07/22/24 15:12:00 EDT, Height, kg, 07/22/24 15:12:00 EDT, Dosing Weight Start Date: 07/23/24 Status: Ordered Start: 04-24-2017 clopidogrel 75 mg oral tablet Dose : 75 mg = 1 tab(s), Oral, qDay, # 90 tab(s), 3 Refill(s), Pharmacy: [facility] #[id number], 162.6, cm, 03/03/24 16:53:00 EDT, Height, kg, [...] qDay, # 90 cap(s), 3 Refill(s), Pharmacy: [facility]/pharmacy #[id number], Depression, 162.6, cm, 03/03/24 16:53:00 EDT, [...] 0 Refill(s), 03/08/24 5:01:00 PM EDT, Pharmacy: [facility]/pharmacy #[id number], Acute rhinosinusitis Cough, 159, cm, 02/27/24 [...] qDay, # 45 tab(s), 3 Refill(s), Pharmacy: [facility] #[id number], 157.5, cm, 12/09/23 14:45:00 EST, Height, kg, 12/09/23 14:45:00 EST, Dosing Weight Start Date: 01/02/24 Status: Ordered Start: 01-31-2022 losartan 100 m g oral tablet Dose : 100 mg = 1 tab(s), Oral, qDay, # 90 tab(s), 1 Refill(s), Pharmacy: [facility] #[id number], 155, cm, 12/06/22 15:28:00 EST, Height, kg, [...] pain, # 25 tab(s), 1 Refill(s), [id number] Start Date: 11/10/19 Status: Ordered oxyCODONE hydrochloride [...] Date: 07/22/24 Status: Ordered polyethylene glycol 3350 76462 mg powder for oral solution (10 sources) [...] qHS, # 90 tab(s), 3 Refill(s), Pharmacy: [facility]/pharmacy #[id number], Insomnia, 156, cm, 07/22/24 15:12:00 EDT, Height, kg, 07/22/24 15:12:00 EDT, Dosing Weight Start Date: 07/22/24 Stop Date: 07/17/25 Status: Ordered Start: 02-02-2023 End: 08-01-2023 traZODone 50 mg oral tablet Dose : 50 mg = 1 tab(s), Oral, qHS, # 90 tab(s), 3 Refill(s), Pharmacy: [facility] #[id number], Insomnia, 155, cm, 05/29/23 15:50:00 EDT, Height, kg, 05/29/23 15:50:00 EDT, Dosing Weight Start Date: 07/10/23 Status: Ordered Start: 10-27-2021 End: 04-25-2022 traZODone 50 mg oral tablet Dose : 50 mg = 1 tab(s), Oral, qHS, # 90 tab(s), 1 Refill(s), Pharmacy: [facility] #[id number], Insomnia, 157.5, cm, 08/08/21 10:36:00 EDT, Height, [...] Ordered Start: 04-18-2023 take 1 tablet by [facility] once daily verapamil 120 mg/12 hours oral tablet, extended release 1 tab(s), Oral, qDay, # 30 tab(s), 0 Refill(s), Pharmacy: [facility] #[id number], 155, cm, 03/28/23 13:14:00 EDT, Height, kg, 03/28/23 13:14:00 EDT, Dosing Weight Start Date: 04/18/23 Status: Ordered Start: 08-30-2022 take 1 tablet by terence every hour, then take 1 tablet by mouth once daily verapamil 120 mg/12 hours oral tablet, extended release Dose : 120 mg = 1 tab(s), Oral, qDay, # 30 tab(s), 4 Refill(s), [id number], 157.5, cm, 08/30/22 13:23:00 EST, Height, kg, [...] using, # 16 gram(s), 0 Refill(s), Pharmacy: [facility]/pharmacy #[id number], Acute rhinosinusitis Bilateral serous otitis media, [...] nausea/vomiting, # 12 tab(s), 0 Refill(s), Pharmacy: [facility]/pharmacy #[id number], Nausea with vomiting, 159, cm, 02/27/24 [...] Reports Accession: Collected Date/Time: Received Date/Time: Pathologist: [id number] 08/04/2024 12:09 EDT 08/05/2024 09:58 EDT MICHAEL [...] All parts labelled with patient name and [id number] Received in formalin labelled left femoral head [...] cm. Following decalcification. RS-1 Nolan Berg, Pathologists' [place] (ASCP) Performed by NOLAN BERG MICROSCOPIC DESCRIPTION: The microscopic examination is performed, except in the case of Gross Only. Electronically Signed by Pathology Report verified by [facility] MICHAEL SKINNER Sign out Date: 08/06/2024 13:02 Performing Lab: [facility], [address] [place] [address] Pathology Dept Disclaimer If ancillary studies were utilized, the following Laboratory Developed Test (LDT) disclaimer will apply: Under CLIA requirements, [facility] is qualified to perform high complexity testing. For all ancillary stains, positive and negative controls stain appropriately. Performance characteristics of immunohistochemical and chromogenic in-situ hybridization tests have been determined by [facility]. These tests are used for clinical purposes, They should not be regarded as investigational or for research. Normal [facility] .Auto Diffon 08-05-2024 Basophil, Absolute 0.0 10 3/mcL Normal 0.0-0.[address] [facility] Comment on above: Performed By: #### M RSAPCR #### [address] [address] Basophils/100 WBC (Bld) 0.4 % Normal 0.0-2.5 [facility] Comment on above: Performed By: #### M RSAPCR #### [address] [address] Eosinophil, Absolute 0.0 10 3/mcL Normal 0.0-0.7 [facility] Comment on above: Performed By: #### M RSAPCR #### [address] [address] Eosinophils/100 WBC (Bld) 0.0 % Normal 0.0-7.0 [facility] Comment on above: Performed By: #### M RSAPCR #### [address] [address] Lymphocyte, Absolute 0.8 10 3/mcL Low 0.9-4.3 [facility] Comment on above: Performed By: #### M RSAPCR #### [address] [address] Lymphocytes/100 WBC (Bld) 6.8 % Low 20.0-40.0 [facility] Comment on above: Performed By: #### M RSAPCR #### [address] [address] Monocyte, Absolute 0.6 10 3/mcL Normal 0.1-1.[address] [facility] Comment on above: Performed By: #### M RSAPCR #### [address] [address] Monocytes/100 WBC (Bld) 5.3 % Normal 2.0-13.0 [facility] Comment on above: Performed By: #### M RSAPCR #### [address] [address] Neutrophils/100 WBC (Bld) 87.5 % High 50.0-75.0 [facility] Comment on above: Performed By: #### M RSAPCR #### [address] [address] .GFRon 08-05-2024 GFR 35 ml/min/1.73sqm Normal [facility] Comment on above: Result Comment: GFR [...] meters Performed By: #### M RSAPCR #### [address] [address] GFR Non- 29 ml/min/1.73sqm Normal [facility] Comment on above: Result Comment: GFR [...] meters Performed By: #### M RSAPCR #### [address] [address] .NEUABSon 08-05-2024 Neutrophil, Absolute 9.7 10 3/mcL High 2.3-8.1 [facility] Comment on above: Performed By: #### M RSAPCR #### [address] [address] BMPon 08-05-2024 BUN/Creatinine Ratio 17 ratio Normal 7-[address] [facility] Comment on above: Performed By: #### M RSAPCR #### [address] [address] Calcium [Mass/Vol] 9.5 mg/dL Normal 8.4-10.2 [facility] Comment on above: Performed By: #### M RSAPCR #### [address] [address] Chloride [Moles/Vol] 101 mmol/L Normal 98-[address] [facility] Comment on above: Performed By: #### M RSAPCR #### [address] [address] CO2 [Moles/Vol] 25 mmol/L Normal 23-31 [facility] Comment on above: Performed By: #### M RSAPCR #### [address] [address] Creatinine [Mass/Vol] 1.72 mg/dL High 0.55-1.02 [facility] Comment on above: Result Comment: Test ing performed on Siemens Dimension EXL analyzer using a modified kinetic Lona technique. Performed By: #### M RSAPCR #### [address] [address] Electrolyte Balance 11.0 mEq/L Normal 4.0-15.0 [facility] Comment on above: Performed By: #### M RSAPCR #### [address] [address] Glucose [Mass/Vol] 158 mg/dL High 83-110 [facility] Comment on above: Performed By: #### M RSAPCR #### [address] [address] Potassium [Moles/Vol] 4.9 mmol/L Normal 3.5-5.1 [facility] Comment on above: Performed By: #### M RSAPCR #### [address] [address] Sodium [Moles/Vol] 137 mmol/L Normal 136-145 [facility] Comment on above: Performed By: #### M RSAPCR #### [place] [id number] Urea nitrogen [Mass/Vol] 30 mg/dL High 7-18 [facility] Comment on above: Performed By: #### M RSAPCR #### [address] [address] CBCon 08-05-2024 Erythrocyte distribution width (RBC) [Ratio] 16.5 % High 11.5-15.5 [facility] Comment on above: Performed By: #### M RSAPCR #### [place] [id number] Hematocrit (Bld) [Volume fraction] 27.2 % Low 34.0-46.0 [facility] Comment on above: Performed By: #### M RSAPCR #### [place] [address] Hgb 8.9 G/dL Low 12.0-16.0 [facility] Comment on above: Performed By: #### M RSAPCR #### [place] [id number] MCH (RBC) [Entitic mass] 31.9 pg Normal 27.0-33.0 [facility] Comment on above: Performed By: #### M RSAPCR #### [place] [address] MCHC 32.8 G/dL Normal 32.0-36.0 [facility] Comment on above: Performed By: #### M RSAPCR #### [place] [id number] MCV (RBC) [Entitic vol] 97.1 fL Normal 80.0-99.0 [facility] Comment on above: Performed By: #### M RSAPCR #### [place] [id number] Platelet 205 10 3/mcL Normal 150-450 [facility] Comment on above: Performed By: #### M RSAPCR #### [address] [address] Platelet mean volume (Bld) [Entitic vol] 10.3 fL Normal 6.6-10.5 [facility] Comment on above: Performed By: #### M RSAPCR #### [address] [address] RBC 2.80 10 6/mcL Low 4.10-5.30 [facility] Comment on above: Performed By: #### M RSAPCR #### [address] [address] WBC 11.1 10 3/mcL High 4.5-10.8 [facility] Comment on above: Performed By: #### M RSAPCR #### [place] [address] LABORATORYOrdered By: SYSTEM SYSTEM on 08-05-2024 Basophils [...] 08-04-2024 ABO/Rh Interp Positive Invalid Interpretation Code [facility] Comment on above: Performed By: #### M RSAPCR #### [address] [address] ABS (Gel)on 08-04-2024 ABSC Interp (Gel) Negative Normal [facility] Comment on above: Performed By: #### M RSAPCR #### [address] [address] LABORATORYOrdered By: Komal Vega on 08-04-2024 ABO and Rh group Nom (Bld) Blood group A Rh(D) positive Invalid Interpretation Code AO BB Auto SS Blood group antibody screen Ql Negative ABSC (08/04/24 9:38 AM) Normal AO BB Auto SS XR FLUORO 1-2 HRS TECH TIMEo n 08-04-2024 XR FLUORO 1-2 HRS TECH TIME ORIGINAL Images acquired, not reported on this accession number. Normal [facility] XR HIP LEFT W/PELVIS 4 VIEWS [...] 1:20:15 PM Ordering Provider: MAGED PEDRO Normal [facility] MRSAPCRon 07-15-2024 MRSA (PCR) Not detected Normal Not Detected [facility] Comment on above: Result Comment: [place] [id number] Performed By: #### M RSAPCR #### [place] [address] MRSA PCR Int Normal [facility] Comment on above: Result Comment: MRSA [...] Below Performed By: #### M RSAPCR #### [place] [address] .Auto Diffon 07-14-2024 Basophil, Absolute 0.0 10 3/mcL Normal 0.0-0.[address] [facility] Comment on above: Performed By: #### A LAW, ALB, CBC, BMP, ADIFF, GFR, ABOGEL, ABSGEL #### [address] [address] Basophils/100 WBC (Bld) 0.3 % Normal 0.0-2.5 [facility] Comment on above: Performed By: #### A LAW, ALB, CBC, BMP, ADIFF, GFR, ABOGEL, ABSGEL #### [address] [address] Eosinophil, Absolute 0.2 10 3/mcL Normal 0.0-0.7 [facility] Comment on above: Performed By: #### A LAW, ALB, CBC, BMP, ADIFF, GFR, ABOGEL, ABSGEL #### [address] [address] Eosinophils/100 WBC (Bld) 2.9 % Normal 0.0-7.0 [facility] Comment on above: Performed By: #### A LAW, ALB, CBC, BMP, ADIFF, GFR, ABOGEL, ABSGEL #### [address] [address] Lymphocyte, Absolute 1.5 10 3/mcL Normal 0.9-4.3 [facility] Comment on above: Performed By: #### A LAW, ALB, CBC, BMP, ADIFF, GFR, ABOGEL, ABSGEL #### [address] [address] Lymphocytes/100 WBC (Bld) 25.5 % Normal 20.0-40.0 [facility] Comment on above: Performed By: #### A LAW, ALB, CBC, BMP, ADIFF, GFR, ABOGEL, ABSGEL #### [address] [address] Monocyte, Absolute 0.6 10 3/mcL Normal 0.1-1.[address] [facility] Comment on above: Performed By: #### A LAW, ALB, CBC, BMP, ADIFF, GFR, ABOGEL, ABSGEL #### [address] [address] Monocytes/100 WBC (Bld) 10.1 % Normal 2.0-13.0 [facility] Comment on above: Performed By: #### A LAW, ALB, CBC, BMP, ADIFF, GFR, ABOGEL, ABSGEL #### [address] [address] Neutrophils/100 WBC (Bld) 61.2 % Normal 50.0-75.0 [facility] Comment on above: Performed By: #### A LAW, ALB, CBC, BMP, ADIFF, GFR, ABOGEL, ABSGEL #### [address] [address] .GFRon 07-14-2024 GFR 51 ml/min/1.73sqm Normal [facility] Comment on above: Result Comment: GFR [...] CBC, BMP, ADIFF, GFR, ABOGEL, ABSGEL #### [place] [id number] [place], [place] [address] GFR Non- 42 ml/min/1.73sqm Normal [facility] Comment on above: Result Comment: GFR [...] CBC, BMP, ADIFF, GFR, ABOGEL, ABSGEL #### [address] [address] .NEUABSon 07-14-2024 Neutrophil, Absolute 3.5 10 3/mcL Normal 2.3-8.1 [facility] Comment on above: Performed By: #### A LAW, ALB, CBC, BMP, ADIFF, GFR, ABOGEL, ABSGEL #### [address] [address] ABO/Rh (Gel)on 07-14-2024 ABO/Rh Interp Positive Invalid Interpretation Code [facility] Comment on above: Performed By: #### A LAW, ALB, CBC, BMP, ADIFF, GFR, ABOGEL, ABSGEL #### [address] [address] ABS (Gel)on 07-14-2024 ABSC Interp (Gel) Negative Normal [facility] Comment on above: Performed By: #### A LAW, ALB, CBC, BMP, ADIFF, GFR, ABOGEL, ABSGEL #### [address] [address] ALBon 07-14-2024 Albumin Level 3.8 G/dL Normal 3.4-4.8 [facility] Comment on above: Performed By: #### A LAW, ALB, CBC, BMP, ADIFF, GFR, ABOGEL, ABSGEL #### [address] [address] BMPon 07-14-2024 BUN/Creatinine Ratio 9 ratio Normal 7-[address] [facility] Comment on above: Performed By: #### A LAW, ALB, CBC, BMP, ADIFF, GFR, ABOGEL, ABSGEL #### [address] [address] Calcium [Mass/Vol] 9.8 mg/dL Normal 8.4-10.2 [facility] Comment on above: Performed By: #### A LAW, ALB, CBC, BMP, ADIFF, GFR, ABOGEL, ABSGEL #### [address] [address] Chloride [Moles/Vol] 105 mmol/L Normal 98-[address] [facility] Comment on above: Performed By: #### A LAW, ALB, CBC, BMP, ADIFF, GFR, ABOGEL, ABSGEL #### [address] [address] CO2 [Moles/Vol] 27 mmol/L Normal 23-31 [facility] Comment on above: Performed By: #### A LAW, ALB, CBC, BMP, ADIFF, GFR, ABOGEL, ABSGEL #### [address] [address] Creatinine [Mass/Vol] 1.26 mg/dL High 0.55-1.02 [facility] Comment on above: Result Comment: Test ing performed on Siemens Dimension EXL analyzer using a modified kinetic Lona technique. Performed By: #### A LAW, ALB, CBC, BMP, ADIFF, GFR, ABOGEL, ABSGEL #### [address] [address] Electrolyte Balance 7.0 mEq/L Normal 4.0-15.0 [facility] Comment on above: Performed By: #### A LAW, ALB, CBC, BMP, ADIFF, GFR, ABOGEL, ABSGEL #### [address] [address] Glucose [Mass/Vol] 85 mg/dL Normal 83-110 [facility] Comment on above: Performed By: #### A LAW, ALB, CBC, BMP, ADIFF, GFR, ABOGEL, ABSGEL #### [address] [address] Potassium [Moles/Vol] 4.4 mmol/L Normal 3.5-5.1 [facility] Comment on above: Performed By: #### A LAW, ALB, CBC, BMP, ADIFF, GFR, ABOGEL, ABSGEL #### [address] [address] Sodium [Moles/Vol] 139 mmol/L Normal 136-145 [facility] Comment on above: Performed By: #### A LAW, ALB, CBC, BMP, ADIFF, GFR, ABOGEL, ABSGEL #### [place] [id number] Urea nitrogen [Mass/Vol] 11 mg/dL Normal 7-18 [facility] Comment on above: Performed By: #### A LAW, ALB, CBC, BMP, ADIFF, GFR, ABOGEL, ABSGEL #### [place] [id number] CBCon 07-14-2024 Erythrocyte distribution width (RBC) [Ratio] 17.4 % High 11.5-15.5 [facility] Comment on above: Order Comment: Pre-A dmission Testing Performed By: #### A LAW, ALB, CBC, BMP, ADIFF, GFR, ABOGEL, ABSGEL #### [address] [address] Hematocrit (Bld) [Volume fraction] 33.1 % Low 34.0-46.0 [facility] Comment on above: Order Comment: Pre-A dmission Testing Performed By: #### A LAW, ALB, CBC, BMP, ADIFF, GFR, ABOGEL, ABSGEL #### [address] [address] Hgb 11.0 G/dL Low 12.0-16.0 [facility] Comment on above: Order Comment: Pre-A dmission Testing Performed By: #### A LAW, ALB, CBC, BMP, ADIFF, GFR, ABOGEL, ABSGEL #### [address] [address] MCH (RBC) [Entitic mass] 31.7 pg Normal 27.0-33.0 [facility] Comment on above: Order Comment: Pre-A dmission Testing Performed By: #### A LAW, ALB, CBC, BMP, ADIFF, GFR, ABOGEL, ABSGEL #### [address] [address] MCHC 33.1 G/dL Normal 32.0-36.0 [facility] Comment on above: Order Comment: Pre-A dmission Testing Performed By: #### A LAW, ALB, CBC, BMP, ADIFF, GFR, ABOGEL, ABSGEL #### [address] [id number] MCV (RBC) [Entitic vol] 95.7 fL Normal 80.0-99.0 [facility] Comment on above: Order Comment: Pre-A dmission Testing Performed By: #### A LAW, ALB, CBC, BMP, ADIFF, GFR, ABOGEL, ABSGEL #### [address] [address] Platelet 226 10 3/mcL Normal 150-450 [facility] Comment on above: Order Comment: Pre-A dmission Testing Performed By: #### A LAW, ALB, CBC, BMP, ADIFF, GFR, ABOGEL, ABSGEL #### [address] [address] Platelet mean volume (Bld) [Entitic vol] 10.1 fL Normal 6.6-10.5 [facility] Comment on above: Order Comment: Pre-A dmission Testing Performed By: #### A LAW, ALB, CBC, BMP, ADIFF, GFR, ABOGEL, ABSGEL #### [address] [address] RBC 3.46 10 6/mcL Low 4.10-5.30 [facility] Comment on above: Order Comment: Pre-A dmission Testing Performed By: #### A LAW, ALB, CBC, BMP, ADIFF, GFR, ABOGEL, ABSGEL #### [address] [address] WBC 5.8 10 3/mcL Normal 4.5-10.8 [facility] Comment on above: Order Comment: Pre-A dmission Testing Performed By: #### A LAW, ALB, CBC, BMP, ADIFF, GFR, ABOGEL, ABSGEL #### [place] [id number] [place], [place] [address] LABORATORYOrdered By: Wilma Lawler on 07-14-2024 ABO [...] 06-25-2024 CNPN Telephone (HEMSTEPHANIE) -------- HERB VALDES ([id number]) 1955 F Date Time Provider Department 06/25/24 [...] not feel comfortable doing her surgery at [facility] so he recommended a referral to a [facility] orthopedic surgeon. We could refer her to see someone at [place] or [facility]. Soonest appointment would be best. Tell her to continue Eliquis for now. Once she is reevaluated for surgery we can devise a plan to bridge her through with anticoagulation. DO Domitila Kelyl Kara, LPN 06/25/2024 4:32 PM Signed TC [...] Pedro does not feel comfortable doing at [facility].JESSICA Kraus Stephanie 06/26/2024 11:17 AM Signed [...] call. Please call 's cell phone at [phone] when able tonight so Herb can still have surgery tomorrow. Maribeth Flores Tracy Olmedo LPN 08/03/2024 4:[address] Pedro would like to speak with you today concerning surgical clearance for tomorrow. cell number [phone] please call. JESSICA Serna Paul A, DO [...] [M87.052] Order(s):CONSULT TO ORTHOPAEDICS [9026] Order #: [id number]: 1 FUTURE Prescriptions as of 08/04/2024 - [...] 02/18/2007 SO (more content not included)... Normal [facility] BETA 2 GLYCOPROTEIN, IGGon 0 06-17-2024 Beta 2 glycoprotein 1 IgG IA Qn <9 Normal <20 [facility] Comment on above: Order Comment: Speci men Type: BLOOD SPECIMEN Ordering Facility: [facility] Address: [address] [place] [address] Result Comment: <20 SGU Negative 20-80 SGU Low Positive >80 SGU High Positive These results were obtained with the Ensocareva QUANTA Lite B2 GPI IgG ARNULFO. B2 GPI IgG values obtained with different manufacturers' assay methods may not be used interchangeably. The magnitude of the reported IgG levels cannot be correlated to an endpoint titer. Performed By: #### B ETAErnst, FREEDOMGISRA, JEAN, 5076-5 #### [facility] CLIA [id number] [address] [place] [address] [place] BETA 2 GLYCOPROTEIN, IGMon 0 06-17-2024 Beta 2 glycoprotein 1 IgM IA Qn 13 SMU Normal <20 [facility] Comment on above: Order Comment: Asaf reyna Type: BLOOD SPECIMEN Ordering Facility: [facility] Address: [address] [place] [address] Result Comment: <20 SMU Negative 20-80 SMU [...] B ETA2M, BETA2G, CARDIRanjit, CARDI, 5076-5 #### [facility] CLIA [id number] [address] [place] [address] [place] CARDIOLIPIN IGG ABSon 2023 Cardiolipin IgG IA Qn (S) <9.0 Normal <15.0 [facility] Comment on above: Order Comment: Asaf reyna Type: BLOOD SPECIMEN Ordering Facility: [facility] Address: [address] [place] [address] Result Comment: <15 GPL Negative 15-20 GPL [...] B ETA2M, BETA2G, CARDIRanjit, CARDI, 5076-5 #### [facility] CLIA [id number] [address] [place] [address] [place] CARDIOLIPIN IGM ABSon 2023 Cardiolipin IgM IA Qn (S) 14.6 MPL High <12.5 [facility] Comment on above: Order Comment: Asaf reyna Type: BLOOD SPECIMEN Ordering Facility: [facility] Address: [address] [place] [address] Result Comment: <12. 5 MPL Negative 12.5-20 [...] B MASOOD NICHOLE CARDIM, CARDIG, 5076-5 #### [facility] CLIA [id number] [address] [place] [address] OF [facility] CNOVSPon 06-17-2024 CNOVSP Visit (SP) Office (HEMAWS) -------- HERB VALDES ([id number]) 1955 F Date Time Provider Department 06/17/24 [...] She was taken to the ED at [facility] on 04/19/2020 for 4 complaints of [...] was then taken to the ED at [facility] that night. CTA of the chest [...] interlobar septal thickening. She was transferred to [facility]. She was also diagnosed with E. coli bladder infection and septicemia, chronic kidney disease stage III, anemia and hyponatremia that resolved at the time of discharge. She self discontinued apixaban on May 27 or May 28 because she wants to have the hip replacement surgery. Seeing Dr. Maged Pedro at [facility]. Denies cough and shortness of breath presently. Was advised to use a walker but isn't. PAST MEDICAL HISTORY No date: Abdominal pain, unspecified site 1998: Acute gastritis without mention of hemorrhage No date: Discoid lupus erythematosus 1998: Diverticulosis of colon (without mention of hemorrhage) No date: Duodenitis without mention of hemorrhage No date: History of nephrolithiasis No date: Peripheral vascular disease, unspecified (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 Normal [facility] Cardiolipin IgA Ser IA-aCnco n 06-17-2024 Cardiolipin IgA IA Qn (S) <9.0 Normal <12.0 [facility] Comment on above: Order Comment: Speci men Type: BLOOD SPECIMEN Ordering Facility: [facility] Address: [address] [place] [address] Result Comment: <12 APL Negative 12-20 APL Indeterminate >20 APL Positive The following results were obtained with the Ensocareva QUANTA Lite GUI IgA III ARNULFO. Cardiolipin IgA values obtained with the different manufacturers' assay methods may not be used interchangeably. The magnitude of the reported IgA levels cannot be correlated to an endpoint titer. Performed By: #### B ETA2M, BETA2G, CARDIRanjit, CARDITara, 5076-5 #### [facility] CLIA [id number] [address] [place], [place] [address] [place] D dimer FEU PPP-mCncon 06-17 Fibrin D-dimer FEU (PPP) [Mass/Vol] 1260 ng/mL FEU High <500 [facility] Comment on above: Order Comment: Speci men Type: BLOOD SPECIMENOrdering Facility: [facility] Address: [address] [place] [address] Result Comment: Froz en Plasma Aliquot Performed By: #### 4 8065-7 ####[facility] [id number] [facility] [address] OF [facility] [id number] [address] OF [facility]#### [address]26[address]-9, 44536-9 ####[facility] [id number] [address] OF [facility] D-DIMEROrdered By: Lien herrera on 06-17-2024 Fibrin D-dimer FEU (PPP) [Mass/Vol] [address] [facility] Comment on above: Frozen Plasma Aliquo t Fibrin D-dimer FEU (PPP) [Ma ss/Vol]Ordered By: Lien Art on 06-17-2024 D Dimer Age-related Cutoff 700 ng/mL FEU [facility] Interpretation and review of laboratory results Abnormal [facility] 500 ng/mL FEU is the D [...] et al. [facility] Int Med 2016 165:253. [facility] Fibrin D-dimer FEU (PPP) [Ma ss/Vol]on 06-17-2024 D DIMER AGE-RELATED CUTOFF 700 ng/mL FEU Normal [facility] Comment on above: Order Comment: Speci men Type: BLOOD SPECIMENOrdering Facility: [facility] Address: [address] [place] [address] Performed By: #### 4 8065-7 ####[facility] [id number] [place] [id number] [place] [address] [place]#### 481[address]-9, 53241-9 ####[facility] [id number] [place] [address] [place] LUPUS PANELon 06-17-2024 aPTT Coag (Bld) [Time] 42.1 s Normal 30.2-43.0 [facility] Comment on above: Order Comment: Speci men Type: BLOOD SPECIMENOrdering Facility: [facility] Address: [address] [place] [address] Performed By: #### L UPPL ####[facility] [id number] [address] [place] aPTT Coag (Bld) [Time] 36.2 s Normal 31.5-38.3 [facility] Comment on above: Order Comment: Speci men Type: BLOOD SPECIMENOrdering Facility: [facility] Address: [address] [place] [address] Performed By: #### L UPPL ####[facility] [id number] [place] [id number] [place] aPTT Coag (Bld) [Time] 34.3 s Normal 24.0-35.1 [facility] Comment on above: Order Comment: Speci men Type: BLOOD SPECIMENOrdering Facility: [facility] Address: [address] [place] [address] Performed By: #### L UPPL ####[facility] [id number] [place] [address] [place] aPTT W excess hexagonal phase phospholipid Coag (PPP) [Time] 48.9 seconds Normal 34.0-51.8 [facility] Comment on above: Order Comment: Speci men Type: BLOOD SPECIMENOrdering Facility: [facility] Address: [address] [place] [address] Performed By: #### L UPPL ####[facility] [id number] [place] [address] [place] Coagulation factor X activated act Coag Qn (PPP) <0.10 Normal <0.10 [facility] Comment on above: Order Comment: Speci men Type: BLOOD SPECIMENOrdering Facility: [facility] Address: [address] [place] [address] Result Comment: This test was developed and its performance characteristics determined by [facility] [place] ([facility]). It has not been cleared or approved by the FDA. RT-PLMI is regulated under CLIA as qualified to perform high-complexity testing. This test is used for clinical purposes. It should not be regarded as investigational or for research. Performed By: #### L UPPL ####[facility]IA [id number] [address] [place] Delta dRVVT Coag (PPP) [Time diff] 0.7 delta seconds Normal <7.1 [facility] Comment on above: Order Comment: Speci men Type: BLOOD SPECIMENOrdering Facility: [facility] Address: [address] [place] [address] Performed By: #### L UPPL ####[facility] [id number] [place] [address] [place] dRVVT Coag (PPP) [Time] 42.9 s Normal 32.0-45.7 [facility] Comment on above: Order Comment: Speci men Type: BLOOD SPECIMENOrdering Facility: [facility] Address: [address] [place] [address] Performed By: #### L UPPL ####[facility] [id number] [place] [address] [place] dRVVT factor substitution immediately after 1:2 addition of normal plasma Coag (PPP) [Time] 37.7 seconds Normal 32.0-45.7 [facility] Comment on above: Order Comment: Speci men Type: BLOOD SPECIMENOrdering Facility: [facility] Address: [address] [place] [address] Performed By: #### L UPPL ####[facility] [id number] [place] [address] [place] dRVVT W excess hexagonal phase phospholipid actual/normal Coag (PPP) [Relative time] 48.2 seconds High 34.2-47.9 [facility] Comment on above: Order Comment: Speci men Type: BLOOD SPECIMENOrdering Facility: [facility] Address: [address] [place] [address] Performed By: #### L UPPL ####[facility] [id number] [place] [address] [place] dRVVT/dRVVT.excess phospholipid Coag (PPP) [Ratio] 1.10 Normal <1.32 [facility] Comment on above: Order Comment: Speci men Type: BLOOD SPECIMENOrdering Facility: [facility] Address: [address] [place] [address] Performed By: #### L UPPL ####[facility] [id number] [place] [address] [place] PLATELET NEUT 0.0 Seconds Normal <1.9 [facility] Comment on above: Order Comment: Asaf reyna Type: BLOOD SPECIMENOrdering Facility: [facility] Address: [address] [place] [address] Performed By: #### L UPPL ####[facility] LABCLIA [id number] [address] [place] Thrombin time Coag (PPP) [Time] 17.8 seconds Normal <18.6 [facility] Comment on above: Order Comment: Asaf reyna Type: BLOOD SPECIMENOrdering Facility: [facility] Address: [address] [place] [address] Performed By: #### L UPPL ####[facility] [id number] [address] [place] PT panel Coag (PPP)on 2023 INR Coag (PPP) [Relative time] 1.0 {INR} Normal 0.9-1.3 [facility] Comment on above: Order Comment: Asaf reyna Type: BLOOD SPECIMEN Ordering Facility: [facility] Address: [address] [place] [address] Result Comment: Adri min K Antagonist (VKA) [...] Chest 2012, 141:7S-47S Huseyin RA, et al. [facility] 2017, 70: 252-289 Performed By: #### 4 8065-7 #### [facility] CLIA [id number] [address] [place] [address] [place] [facility] CLIA [id number] [address] [place] [address] [place] #### 64389-3, 42570-8 #### [facility] CLIA [id number] [address] [place] [address] [place] PT Coag (PPP) [Time] 10.5 s Normal <13.1 [facility] Comment on above: Order Comment: Speci men Type: BLOOD SPECIMEN Ordering Facility: [facility] Address: [address] [place] [address] Performed By: #### 4 8065-7 #### [facility] CLIA [id number] [address] [place] [address] [place] [facility] CLIA [id number] [address] [place] [address] [place] #### 37590-8, 50234-3 #### [facility] CLIA [id number] [address] [place] [address] [place] aPTT PPPon 06-17-2024 aPTT Coag (PPP) [Time] 26.8 s Normal 23.0-32.4 [facility] Comment on above: Order Comment: Speci men Type: BLOOD SPECIMEN Ordering Facility: [facility] Address: [address] [place] [address] Performed By: #### 4 8065-7 #### [facility] CLIA [id number] [address] [place] [address] [place] [facility] CLIA [id number] [address] [place] [address] #### 47066-0, 01171-2 #### [facility] CLIA [id number] [address] [place] [address] NM MYOCARDIAL SPECT STRESS/R ESTon 06-02-2024 NM [...] Date: 06/02/2024 12:32:18 PM Ordering Provider:Velma Francisco [facility] ([place]) No Panel Informationon 05-16 Culture Urine 10,000 - 50,000 cfu/ ml Mixed growth consistent with normal urogenital katelynn. [facility] .Auto Diffon 04-30-2024 Basophil, Absolute 0.1 10 3/mcL Normal 0.0-0.3 [facility] ([place]) Comment on above: Performed By: #### C BC, BMP, ADIFF, ANEU, GFR ####[address] [address] Basophils/100 WBC (Bld) 0.6 % Normal 0.0-2.5 [facility] ([place]) Comment on above: Performed By: #### C BC, BMP, ADIFF, ANEU, GFR ####[address] [address] Eosinophil, Absolute 0.0 10 3/mcL Normal 0.0-0.7 [facility] ([place]) Comment on above: Performed By: #### C BC, BMP, ADIFF, ANEU, GFR ####[address] [address] Eosinophils/100 WBC (Bld) 0.2 % Normal 0.0-6.0 [facility] ([place]) Comment on above: Performed By: #### C BC, BMP, ADIFF, ANEU, GFR ####[address] [address] Lymphocyte, Absolute 1.4 10 3/mcL Normal 0.9-4.3 [facility] ([place]) Comment on above: Performed By: #### C BC, BMP, ADIFF, ANEU, GFR ####[address] [address] Lymphocytes/100 WBC (Bld) 9.1 % Low 20.0-40.0 [facility] ([place]) Comment on above: Performed By: #### C BC, BMP, ADIFF, ANEU, GFR ####[address] [address] Monocyte, Absolute 0.6 10 3/mcL Normal 0.1-1.4 [facility] ([place]) Comment on above: Performed By: #### C BC, BMP, ADIFF, ANEU, GFR ####[address] [address] Monocytes/100 WBC (Bld) 4.3 % Normal 2.0-13.0 [facility] ([place]) Comment on above: Performed By: #### C BC, BMP, ADIFF, ANEU, GFR ####[address] [address] Neutrophils/100 WBC (Bld) 85.8 % High 50.0-75.0 [facility] ([place]) Comment on above: Performed By: #### C BC, BMP, ADIFF, ANEU, GFR ####[address] [address] .CRYBF Path Reviewon 024 CRYPF Path Review Negative Normal [facility] ([place]) Comment on above: Result Comment: Elec tronically signed by: MICHAEL SKINNER 04.30.2024 13:49 EDT Performed By: #### C RYBFPR, CRYBF, SYNCT ####[place] [address] .GFRon 04-30-2024 GFR >60 Normal [facility] ([place]) Comment on above: Result Comment: GFR Population [...] #### C BC, BMP, ADIFF, ANEU, GFR ####[address] [address] GFR Non- >60 Normal [facility] ([place]) Comment on above: Result Comment: GFR Population [...] #### C BC, BMP, ADIFF, ANEU, GFR ####[address] [address] .NEUABSon 04-30-2024 Neutrophil, Absolute 12.9 10 3/mcL High 2.3-8.1 [facility] ([place]) Comment on above: Performed By: #### C BC, BMP, ADIFF, ANEU, GFR ####[place] [address] BMPon 04-30-2024 BUN/Creatinine Ratio 10.0 ratio Normal 10.0-22.0 [facility] ([place]) Comment on above: Performed By: #### C BC, BMP, ADIFF, ANEU, GFR ####[place] [address] Calcium [Mass/Vol] 8.5 mg/dL Low 8.7-10.4 [facility] ([place]) Comment on above: Performed By: #### C BC, BMP, ADIFF, ANEU, GFR ####[place] [address] Chloride [Moles/Vol] 100 mmol/L Normal 98-110 [facility] ([place]) Comment on above: Performed By: #### C BC, BMP, ADIFF, ANEU, GFR ####[place] [address] CO2 [Moles/Vol] 27 mmol/L Normal 22-32 [facility] ([place]) Comment on above: Performed By: #### C BC, BMP, ADIFF, ANEU, GFR ####[place] [address] Creatinine [Mass/Vol] 0.70 mg/dL Normal 0.50-1.20 [facility] ([place]) Comment on above: Performed By: #### C BC, BMP, ADIFF, ANEU, GFR ####[place] [address] Electrolyte Balance 12.0 mEq/L Normal 4.0-15.0 [facility] ([place]) Comment on above: Performed By: #### C BC, BMP, ADIFF, ANEU, GFR ####[place] [address] Glucose [Mass/Vol] 157 mg/dL High 82-115 [facility] ([place]) Comment on above: Performed By: #### C BC, BMP, ADIFF, ANEU, GFR ####[place] [address] Potassium [Moles/Vol] 3.6 mmol/L Normal 3.5-5.0 [facility] ([place]) Comment on above: Performed By: #### C BC, BMP, ADIFF, ANEU, GFR ####[place] [address] Sodium [Moles/Vol] 139 mmol/L Normal 136-145 [facility] ([place]) Comment on above: Performed By: #### C BC, BMP, ADIFF, ANEU, GFR ####[place] [address] Urea nitrogen [Mass/Vol] 7.0 mg/dL Low 8.0-22.0 [facility] ([place]) Comment on above: Performed By: #### C BC, BMP, ADIFF, ANEU, GFR ####[place] [address] CBCon 04-30-2024 Erythrocyte distribution width (RBC) [Ratio] 17.9 % High 11.5-15.5 [facility] ([place]) Comment on above: Performed By: #### C BC, BMP, ADIFF, ANEU, GFR ####[place] [address] Hematocrit (Bld) [Volume fraction] 32.8 % Low 34.0-46.0 [facility] ([place]) Comment on above: Performed By: #### C BC, BMP, ADIFF, ANEU, GFR ####[place] [address] Hgb 10.9 G/dL Low 12.0-16.0 [facility] ([place]) Comment on above: Performed By: #### C BC, BMP, ADIFF, ANEU, GFR ####[place] [address] MCH (RBC) [Entitic mass] 31.3 pg Normal 27.0-33.0 [facility] ([place]) Comment on above: Performed By: #### C BC, BMP, ADIFF, ANEU, GFR ####[place] [address] MCHC 33.2 G/dL Normal 32.0-36.0 [facility] ([place]) Comment on above: Performed By: #### C BC, BMP, ADIFF, ANEU, GFR ####[place] [address] MCV (RBC) [Entitic vol] 94.3 fL Normal 80.0-99.0 [facility] ([place]) Comment on above: Performed By: #### C BC, BMP, ADIFF, ANEU, GFR ####[place] [address] Platelet 353 10 3/mcL Normal 150-450 [facility] ([place]) Comment on above: Performed By: #### C BC, BMP, ADIFF, ANEU, GFR ####[place] [address] Platelet mean volume (Bld) [Entitic vol] 9.1 fL Normal 6.6-10.5 [facility] ([place]) Comment on above: Performed By: #### C BC, BMP, ADIFF, ANEU, GFR ####[place] [address] RBC 3.48 10 6/mcL Low 4.10-5.30 [facility] ([place]) Comment on above: Performed By: #### C BC, BMP, ADIFF, ANEU, GFR ####[place] [address] WBC 15.0 10 3/mcL High 4.5-10.8 [facility] ([place]) Comment on above: Performed By: #### C BC, BMP, ADIFF, ANEU, GFR ####[place] [address] LABORATORYOrdered By: SYSTEM SYSTEM on 04-30-2024 Basophils [...] Workflow SS .GFRon 04-29-2024 GFR >60 Normal [facility] ([place]) Comment on above: Result Comment: GFR Population [...] H FP, BMP, MORPH, CBC, DIFF, GFR ####[place] [address] GFR Non- >60 Normal [facility] ([place]) Comment on above: Result Comment: GFR Population [...] H FP, BMP, MORPH, CBC, DIFF, GFR ####[address] [address] .Manual Diffon 04-29-2024 Bands 2.0 % Normal 0.0-5.0 [facility] ([place]) Comment on above: Performed By: #### H FP, BMP, MORPH, CBC, DIFF, GFR ####[place] [address] Basophil %, Manual 0.0 % Normal 0.0-2.5 [facility] ([place]) Comment on above: Performed By: #### H FP, BMP, MORPH, CBC, DIFF, GFR ####[place] [address] Basophil, Abs Manual 0.0 10 3/mcL Normal 0.0-0.3 [facility] ([place]) Comment on above: Performed By: #### H FP, BMP, MORPH, CBC, DIFF, GFR ####[place] [address] Eosinophil %, Manual 2.0 % Normal 0.0-6.0 [facility] ([place]) Comment on above: Performed By: #### H FP, BMP, MORPH, CBC, DIFF, GFR ####[place] [address] Eosinophil, Abs Manual 0.3 10 3/mcL Normal 0.0-0.7 [facility] ([place]) Comment on above: Performed By: #### H FP, BMP, MORPH, CBC, DIFF, GFR ####[place] [address] Lymphocyte %, Manual 5.0 % Low 20.0-40.0 [facility] ([place]) Comment on above: Performed By: #### H FP, BMP, MORPH, CBC, DIFF, GFR ####[address] [address] Lymphocyte, Abs Manual 0.9 10 3/mcL Normal 0.9-4.3 [facility] ([place]) Comment on above: Performed By: #### H FP, BMP, MORPH, CBC, DIFF, GFR ####[place] [address] Monocyte %, Manual 4.0 % Normal 2.0-13.0 [facility] ([place]) Comment on above: Performed By: #### H FP, BMP, MORPH, CBC, DIFF, GFR ####[place] [address] Monocyte, Abs Manual 0.7 10 3/mcL Normal 0.1-1.4 [facility] ([place]) Comment on above: Performed By: #### H FP, BMP, MORPH, CBC, DIFF, GFR ####[address] [address] Myelocyte 1.0 % Normal [facility] ([place]) Comment on above: Performed By: #### H FP, BMP, MORPH, CBC, DIFF, GFR ####[address] [address] Neutrophil %, Manual 86.0 % High 50.0-75.0 [facility] ([place]) Comment on above: Performed By: #### H FP, BMP, MORPH, CBC, DIFF, GFR ####[address] [address] Neutrophil, Abs Manual 15.5 10 3/mcL High 2.3-8.1 [facility] ([place]) Comment on above: Performed By: #### H FP, BMP, MORPH, CBC, DIFF, GFR ####[address] [address] Nucleated RBC 0.0 /100 WBC Normal [facility] ([place]) Comment on above: Performed By: #### H FP, BMP, MORPH, CBC, DIFF, GFR ####[place] [place] [address] .Morphon 04-29-2024 Anisocytosis Ql (Bld) 1+ Normal [facility] ([place]) Comment on above: Performed By: #### H FP, BMP, MORPH, CBC, DIFF, GFR ####[place] [address] Large Platelets Few Normal [facility] ([place]) Comment on above: Performed By: #### H FP, BMP, MORPH, CBC, DIFF, GFR ####[place] [address] Ovalocytes 1+ Normal [facility] ([place] Comment on above: Performed By: #### H FP, BMP, MORPH, CBC, DIFF, GFR ####[place] [address] Platelet Estimate Normal Normal [facility] ([place] Comment on above: Performed By: #### H FP, BMP, MORPH, CBC, DIFF, GFR ####[place] [address] Poik 1+ Normal [facility] ([place] Comment on above: Performed By: #### H FP, BMP, MORPH, CBC, DIFF, GFR ####[place] [address] Polychrom 1+ Normal [facility] ([place] Comment on above: Performed By: #### H FP, BMP, MORPH, CBC, DIFF, GFR ####[place] [address] Tear Cell 1+ Normal [facility] ([place] Comment on above: Performed By: #### H FP, BMP, MORPH, CBC, DIFF, GFR ####[place] [address] Toxic Gran 1+ [facility] ([place] Comment on above: Performed By: #### H FP, BMP, MORPH, CBC, DIFF, GFR ####[place] [address] BMPon 04-29-2024 BUN/Creatinine Ratio 10.5 ratio Normal 10.0-22.0 [facility] ([place]) Comment on above: Performed By: #### H FP, BMP, MORPH, CBC, DIFF, GFR ####[address] [address] Calcium [Mass/Vol] 8.3 mg/dL Low 8.7-10.4 [facility] ([place]) Comment on above: Performed By: #### H FP, BMP, MORPH, CBC, DIFF, GFR ####[place] [address] Chloride [Moles/Vol] 108 mmol/L Normal 98-110 [facility] ([place] Comment on above: Performed By: #### H FP, BMP, MORPH, CBC, DIFF, GFR ####[place] [address] CO2 [Moles/Vol] 27 mmol/L Normal 22-32 [facility] ([place] Comment on above: Performed By: #### H FP, BMP, MORPH, CBC, DIFF, GFR ####[place] [address] Creatinine [Mass/Vol] 0.86 mg/dL Normal 0.50-1.20 [facility] ([place]) Comment on above: Performed By: #### H FP, BMP, MORPH, CBC, DIFF, GFR ####[address] [address] Electrolyte Balance 6.0 mEq/L Normal 4.0-15.0 [facility] ([place]) Comment on above: Performed By: #### H FP, BMP, MORPH, CBC, DIFF, GFR ####[address] [address] Glucose [Mass/Vol] 92 mg/dL Normal 82-115 [facility] ([place] Comment on above: Performed By: #### H FP, BMP, MORPH, CBC, DIFF, GFR ####[place] [address] Potassium [Moles/Vol] 3.5 mmol/L Normal 3.5-5.0 [facility] ([place]) Comment on above: Performed By: #### H FP, BMP, MORPH, CBC, DIFF, GFR ####[place] [address] Sodium [Moles/Vol] 141 mmol/L Normal 136-145 [facility] ([place] Comment on above: Performed By: #### H FP, BMP, MORPH, CBC, DIFF, GFR ####[place] [address] Urea nitrogen [Mass/Vol] 9.0 mg/dL Normal 8.0-22.0 [facility] ([place]) Comment on above: Performed By: #### H FP, BMP, MORPH, CBC, DIFF, GFR ####[place] [address] CBCon 04-29-2024 Erythrocyte distribution width (RBC) [Ratio] 17.3 % High 11.5-15.5 [facility] ([place]) Comment on above: Performed By: #### H FP, BMP, MORPH, CBC, DIFF, GFR ####[place] [address] Hematocrit (Bld) [Volume fraction] 30.6 % Low 34.0-46.0 [facility] ([place]) Comment on above: Performed By: #### H FP, BMP, MORPH, CBC, DIFF, GFR ####[place] [address] Hgb 10.2 G/dL Low 12.0-16.0 [facility] ([place]) Comment on above: Performed By: #### H FP, BMP, MORPH, CBC, DIFF, GFR ####[place] [address] MCH (RBC) [Entitic mass] 31.5 pg Normal 27.0-33.0 [facility] ([place]) Comment on above: Performed By: #### H FP, BMP, MORPH, CBC, DIFF, GFR ####[place] [address] MCHC 33.3 G/dL Normal 32.0-36.0 [facility] ([place]) Comment on above: Performed By: #### H FP, BMP, MORPH, CBC, DIFF, GFR ####[place] [address] MCV (RBC) [Entitic vol] 94.7 fL Normal 80.0-99.0 [facility] ([place]) Comment on above: Performed By: #### H FP, BMP, MORPH, CBC, DIFF, GFR ####[place] [address] Platelet 337 10 3/mcL Normal 150-450 [facility] ([place]) Comment on above: Performed By: #### H FP, BMP, MORPH, CBC, DIFF, GFR ####[place] [address] Platelet mean volume (Bld) [Entitic vol] 9.0 fL Normal 6.6-10.5 [facility] ([place]) Comment on above: Performed By: #### H FP, BMP, MORPH, CBC, DIFF, GFR ####[place] [address] RBC 3.23 10 6/mcL Low 4.10-5.30 [facility] ([place]) Comment on above: Performed By: #### H FP, BMP, MORPH, CBC, DIFF, GFR ####[place] [address] WBC 17.7 10 3/mcL High 4.5-10.8 [facility] ([place] Comment on above: Performed By: #### H FP, BMP, MORPH, CBC, DIFF, GFR ####[place] [address] CRYBFon 04-29-2024 Crystal BF Sp Synovial fluid Normal [facility] ([place]) Comment on above: Order Comment: Left hip synovial fluid IR aspiration Performed By: #### C RYBFPR, CRYBF, SYNCT ####[place] [address] HFPon 04-29-2024 Bili Indirect 0.2 mg/dL Normal 0.1-10.0 [facility] ([place] Comment on above: Performed By: #### H FP, BMP, MORPH, CBC, DIFF, GFR ####[place] [address] Albumin Level 2.1 G/dL Low 3.2-4.8 [facility] ([place] Comment on above: Performed By: #### H FP, BMP, MORPH, CBC, DIFF, GFR ####[address] [address] Albumin/Globulin [Mass ratio] 0.6 {ratio} Low 0.9-1.6 [facility] ([place]) Comment on above: Performed By: #### H FP, BMP, MORPH, CBC, DIFF, GFR ####[place] [address] ALP [Catalytic activity/Vol] 276 U/L High 38-126 [facility] ([place]) Comment on above: Performed By: #### H FP, BMP, MORPH, CBC, DIFF, GFR ####[place] [address] ALT [Catalytic activity/Vol] 110 U/L High 10-49 [facility] ([place] Comment on above: Performed By: #### H FP, BMP, MORPH, CBC, DIFF, GFR ####[place] [address] AST [Catalytic activity/Vol] 74 U/L High 8-34 [facility] ([place]) Comment on above: Performed By: #### H FP, BMP, MORPH, CBC, DIFF, GFR ####[place] [address] Bili Direct 0.2 mg/dL Normal 0.0-0.4 [facility] ([place]) Comment on above: Result Comment: Use of this assay is not recommended for patients undergoing treatment with eltrombopag due to the potential for falsely elevated results. Performed By: #### H FP, BMP, MORPH, CBC, DIFF, GFR ####[place] [address] Bili Total 0.40 mg/dL Normal 0.20-1.20 [facility] ([place]) Comment on above: Result Comment: Use of this assay is not recommended for patients undergoing treatment with eltrombopag due to the potential for falsely elevated results. Performed By: #### H FP, BMP, MORPH, CBC, DIFF, GFR ####[facility] [place] [address] Globulin 3.6 G/dL Normal 1.5-3.8 [facility] ([place]) Comment on above: Performed By: #### H FP, BMP, MORPH, CBC, DIFF, GFR ####[place] [id number] [place] [address] Total Protein 5.7 G/dL Normal 5.7-8.2 [facility] ([place]) Comment on above: Result Comment: No te - New Reference Range in effect 20 Performed By: #### H FP, BMP, MORPH, CBC, DIFF, GFR ####[place] [id number] [place] [address] LABORATORYOrdered By: Tracy Champion on 04-29-2024 Appearance [...] (S/P/Bld) [Vol rate/Area] ml/min/1.73sqm Invalid Interpretation Code [email or web address] Chemistry S Comment on above: Interpretive Data: [...] (S/P/Bld) [Vol rate/Area] ml/min/1.73sqm Invalid Interpretation Code [email or web address] Chemistry S Comment on above: Interpretive Data: [...] Culture Body Fluid No growth to date [facility] GS Unsedimented No organisms seen. [facility] SYNCTon 04-29-2024 Cells Counted (synovial) 100 Normal [facility] ([place]) Comment on above: Order Comment: Left hip synovial fluid IR aspiration Performed By: #### C MANUEL CRYBF, SYNCT ####[facility] [place] [address] Lymphocytes/100 WBC (Bld) 14 % Normal [facility] ([place]) Comment on above: Order Comment: Left hip synovial fluid IR aspiration Performed By: #### C MANUEL, CRYBF, SYNCT ####[address] [address] Mononuclear Cell % (synovial) 10 % Normal [facility] ([place]) Comment on above: Order Comment: Left hip synovial fluid IR aspiration Performed By: #### C RYBFPR, CRYBF, SYNCT ####[address] [address] Neutrophils/100 WBC (Bld) 75 % High 0-24 [facility] ([place]) Comment on above: Order Comment: Left hip synovial fluid IR aspiration Performed By: #### C RYBFPR, CRYBF, SYNCT ####[address] [address] Synovial Lining Cell (synovial) 1 % Normal [facility] ([place]) Comment on above: Order Comment: Left hip synovial fluid IR aspiration Performed By: #### C RYBFPR, CRYBF, SYNCT ####[address] [address] Clarity (U) Cloudy Normal [facility] ([place]) Comment on above: Order Comment: Left hip synovial fluid IR aspiration Performed By: #### C RYBFPR, CRYBF, SYNCT ####[address] [address] Color (U) Colorless Normal [facility] ([place]) Comment on above: Order Comment: Left hip synovial fluid IR aspiration Performed By: #### C RYBFPR, CRYBF, SYNCT ####[address] [address] Comment (synovial) See Below Normal [facility] ([place]) Comment on above: Order Comment: Left hip synovial fluid IR aspiration Result Comment: Cell count is approximate due to debris and/or cell clumps seen. Performed By: #### C RYBFPR, CRYBF, SYNCT ####[address] [address] White Blood Cells (synovial) 270 /mm3 High 0-199 [facility] ([place]) Comment on above: Order Comment: Left hip synovial fluid IR aspiration Performed By: #### C RYBFPR, CRYBF, SYNCT ####[address] [address] .GFRon 04-28-2024 GFR >60 Normal [facility] ([place]) Comment on above: Result Comment: GFR Population [...] #### B MP, DIFF, CBC, GFR, MORPH ####[address] [address] GFR Non- 60 ml/min/1.73sqm Normal [facility] ([place]) Comment on above: Result Comment: GFR Population [...] #### B MP, DIFF, CBC, GFR, MORPH ####[address] [address] .Manual Diffon 04-28-2024 Basophil %, Manual 0.0 % Normal 0.0-2.5 [facility] ([place] Comment on above: Performed By: #### B MP, DIFF, CBC, GFR, MORPH ####[address] [address] Basophil, Abs Manual 0.0 10 3/mcL Normal 0.0-0.3 [facility] ([place]) Comment on above: Performed By: #### B MP, DIFF, CBC, GFR, MORPH ####[address] [address] Eosinophil %, Manual 1.0 % Normal 0.0-6.0 [facility] ([place] Comment on above: Performed By: #### B MP, DIFF, CBC, GFR, MORPH ####[address] [address] Eosinophil, Abs Manual 0.2 10 3/mcL Normal 0.0-0.7 [facility] ([place]) Comment on above: Performed By: #### B MP, DIFF, CBC, GFR, MORPH ####[address] [address] Lymphocyte %, Manual 8.0 % Low 20.0-40.0 [facility] ([place] Comment on above: Performed By: #### B MP, DIFF, CBC, GFR, MORPH ####[address] [address] Lymphocyte, Abs Manual 1.5 10 3/mcL Normal 0.9-4.3 [facility] ([place]) Comment on above: Performed By: #### B MP, DIFF, CBC, GFR, MORPH ####[address] [address] Monocyte %, Manual 4.0 % Normal 2.0-13.0 [facility] ([place] Comment on above: Performed By: #### B MP, DIFF, CBC, GFR, MORPH ####[address] [address] Monocyte, Abs Manual 0.8 10 3/mcL Normal 0.1-1.4 [facility] ([place] Comment on above: Performed By: #### B MP, DIFF, CBC, GFR, MORPH ####[address] [address] Myelocyte 2.0 % Normal [facility] ([place]) Comment on above: Performed By: #### B MP, DIFF, CBC, GFR, MORPH ####[place] [address] Neutrophil %, Manual 85.0 % High 50.0-75.0 [facility] ([place] Comment on above: Performed By: #### B MP, DIFF, CBC, GFR, MORPH ####[place] [address] Neutrophil, Abs Manual 16.4 10 3/mcL High 2.3-8.1 [facility] ([place]) Comment on above: Performed By: #### B MP, DIFF, CBC, GFR, MORPH ####[place] [address] Nucleated RBC 1.0 /100 WBC Normal [facility] ([place] Comment on above: Performed By: #### B MP, DIFF, CBC, GFR, MORPH ####[place] [address] .Morphon 04-28-2024 Anisocytosis Ql (Bld) 1+ Normal [facility] ([place] Comment on above: Performed By: #### B MP, DIFF, CBC, GFR, MORPH ####[place] [address] Hypochrom 1+ Normal [facility] ([place] Comment on above: Performed By: #### B MP, DIFF, CBC, GFR, MORPH ####[place] [address] Ovalocytes 1+ Normal [facility] ([place] Comment on above: Performed By: #### B MP, DIFF, CBC, GFR, MORPH ####[place] [address] Platelet Estimate Normal Normal [facility] ([place] Comment on above: Performed By: #### B MP, DIFF, CBC, GFR, MORPH ####[place] [address] Poik 1+ Normal [facility] ([place] Comment on above: Performed By: #### B MP, DIFF, CBC, GFR, MORPH ####[place] [address] Polychrom 1+ Normal [facility] ([place] Comment on above: Performed By: #### B MP, DIFF, CBC, GFR, MORPH ####[place] [address] BMPon 04-28-2024 BUN/Creatinine Ratio 10.8 ratio Normal 10.0-22.0 [facility] ([place] Comment on above: Performed By: #### B MP, DIFF, CBC, GFR, MORPH ####[place] [address] Calcium [Mass/Vol] 8.2 mg/dL Low 8.7-10.4 [facility] ([place] Comment on above: Performed By: #### B MP, DIFF, CBC, GFR, MORPH ####[place] [address] Chloride [Moles/Vol] 109 mmol/L Normal 98-110 [facility] ([place] Comment on above: Performed By: #### B MP, DIFF, CBC, GFR, MORPH ####[place] [address] CO2 [Moles/Vol] 24 mmol/L Normal 22-32 [facility] ([place] Comment on above: Performed By: #### B MP, DIFF, CBC, GFR, MORPH ####[place] [address] Creatinine [Mass/Vol] 0.93 mg/dL Normal 0.50-1.20 [facility] ([place]) Comment on above: Performed By: #### B MP, DIFF, CBC, GFR, MORPH ####[place] [address] Electrolyte Balance 8.0 mEq/L Normal 4.0-15.0 [facility] ([place] Comment on above: Performed By: #### B MP, DIFF, CBC, GFR, MORPH ####[place] [address] Glucose [Mass/Vol] 75 mg/dL Low 82-115 [facility] ([place] Comment on above: Performed By: #### B MP, DIFF, CBC, GFR, MORPH ####[address] [address] Potassium [Moles/Vol] 3.6 mmol/L Normal 3.5-5.0 [facility] ([place]) Comment on above: Performed By: #### B MP, DIFF, CBC, GFR, MORPH ####[address] [address] Sodium [Moles/Vol] 141 mmol/L Normal 136-145 [facility] ([place] Comment on above: Performed By: #### B MP, DIFF, CBC, GFR, MORPH ####[place] [address] Urea nitrogen [Mass/Vol] 10.0 mg/dL Normal 8.0-22.0 [facility] ([place] Comment on above: Performed By: #### B MP, DIFF, CBC, GFR, MORPH ####[place] [address] CBCon 04-28-2024 Erythrocyte distribution width (RBC) [Ratio] 17.6 % High 11.5-15.5 [facility] ([place]) Comment on above: Performed By: #### B MP, DIFF, CBC, GFR, MORPH ####[place] [address] Hematocrit (Bld) [Volume fraction] 27.2 % Low 34.0-46.0 [facility] ([place] Comment on above: Performed By: #### B MP, DIFF, CBC, GFR, MORPH ####[place] [address] Hgb 9.2 G/dL Low 12.0-16.0 [facility] ([place] Comment on above: Performed By: #### B MP, DIFF, CBC, GFR, MORPH ####[place] [address] MCH (RBC) [Entitic mass] 32.2 pg Normal 27.0-33.0 [facility] ([place] Comment on above: Performed By: #### B MP, DIFF, CBC, GFR, MORPH ####[place] [address] MCHC 33.9 G/dL Normal 32.0-36.0 [facility] ([place]) Comment on above: Performed By: #### B MP, DIFF, CBC, GFR, MORPH ####[place] [address] MCV (RBC) [Entitic vol] 94.9 fL Normal 80.0-99.0 [facility] ([place]) Comment on above: Performed By: #### B MP, DIFF, CBC, GFR, MORPH ####[place] [address] Platelet 318 10 3/mcL Normal 150-450 [facility] ([place] Comment on above: Performed By: #### B MP, DIFF, CBC, GFR, MORPH ####[place] [address] Platelet mean volume (Bld) [Entitic vol] 9.4 fL Normal 6.6-10.5 [facility] ([place] Comment on above: Performed By: #### B MP, DIFF, CBC, GFR, MORPH ####[place] [address] RBC 2.86 10 6/mcL Low 4.10-5.30 [facility] ([place] Comment on above: Performed By: #### B MP, DIFF, CBC, GFR, MORPH ####[place] [address] WBC 19.4 10 3/mcL High 4.5-10.8 [facility] ([place] Comment on above: Performed By: #### B MP, DIFF, CBC, GFR, MORPH ####[place] [address] LABORATORYOrdered By: SYSTEM SYSTEM on 04-28-2024 Anisocytosis [...] (S/P/Bld) [Vol rate/Area] ml/min/1.73sqm Invalid Interpretation Code [email or web address] Chemistry S Comment on above: Interpretive Data: [...] [Vol rate/Area] 60 ml/min/1.73sqm Invalid Interpretation Code [email or web address] Chemistry S Comment on above: Interpretive Data: [...] .GFRon 04-27-2024 GFR Non- 57 ml/min/1.73sqm Normal [facility] ([place]) Comment on above: Result Comment: GFR Population [...] ORT, GFR, TSHR, MORPH, BMP, CBC, DIFF ####[address] [address] GFR >60 Normal [facility] ([place] Comment on above: Result Comment: GFR Population [...] ORT, GFR, TSHR, MORPH, BMP, CBC, DIFF ####[place] [address] .Manual Diffon 04-27-2024 Bands 1.0 % Normal 0.0-5.0 [facility] ([place]) Comment on above: Performed By: #### C ORT, GFR, TSHR, MORPH, BMP, CBC, DIFF ####[place] [address] Basophil %, Manual 0.0 % Normal 0.0-2.5 [facility] ([place] Comment on above: Performed By: #### C ORT, GFR, TSHR, MORPH, BMP, CBC, DIFF ####[place] [id number] Basophil, Abs Manual 0.0 10 3/mcL Normal 0.0-0.3 [facility] ([place] Comment on above: Performed By: #### C ORT, GFR, TSHR, MORPH, BMP, CBC, DIFF ####[place] [address] Eosinophil %, Manual 2.0 % Normal 0.0-6.0 [facility] ([place] Comment on above: Performed By: #### C ORT, GFR, TSHR, MORPH, BMP, CBC, DIFF ####[address] [address] Eosinophil, Abs Manual 0.4 10 3/mcL Normal 0.0-0.7 [facility] ([place]) Comment on above: Performed By: #### C ORT, GFR, TSHR, MORPH, BMP, CBC, DIFF ####[place] [id number] Lymphocyte %, Manual 4.0 % Low 20.0-40.0 [facility] ([place] Comment on above: Performed By: #### C ORT, GFR, TSHR, MORPH, BMP, CBC, DIFF ####[address] [address] Lymphocyte, Abs Manual 0.9 10 3/mcL Normal 0.9-4.3 [facility] ([place]) Comment on above: Performed By: #### C ORT, GFR, TSHR, MORPH, BMP, CBC, DIFF ####[place] [address] Metamyelocyte 1.0 % Normal [facility] ([place]) Comment on above: Performed By: #### C ORT, GFR, TSHR, MORPH, BMP, CBC, DIFF ####[place] [address] Monocyte %, Manual 2.0 % Normal 2.0-13.0 [facility] ([place] Comment on above: Performed By: #### C ORT, GFR, TSHR, MORPH, BMP, CBC, DIFF ####[address] [address] Monocyte, Abs Manual 0.5 10 3/mcL Normal 0.1-1.4 [facility] ([place] Comment on above: Performed By: #### C ORT, GFR, TSHR, MORPH, BMP, CBC, DIFF ####[address] [address] Neutrophil %, Manual 90.0 % High 50.0-75.0 [facility] ([place] Comment on above: Performed By: #### C ORT, GFR, TSHR, MORPH, BMP, CBC, DIFF ####[place] [address] Neutrophil, Abs Manual 20.2 10 3/mcL High 2.3-8.1 [facility] ([place]) Comment on above: Performed By: #### C ORT, GFR, TSHR, MORPH, BMP, CBC, DIFF ####[place] [address] Nucleated RBC 0.0 /100 WBC Normal [facility] ([place] Comment on above: Performed By: #### C ORT, GFR, TSHR, MORPH, BMP, CBC, DIFF ####[place] [address] .Morphon 04-27-2024 Anisocytosis Ql (Bld) 1+ Normal [facility] ([place] Comment on above: Performed By: #### C ORT, GFR, TSHR, MORPH, BMP, CBC, DIFF ####[place] [address] Ovalocytes 1+ Normal [facility] ([place] Comment on above: Performed By: #### C ORT, GFR, TSHR, MORPH, BMP, CBC, DIFF ####[place] [address] Platelet Estimate Normal Normal [facility] ([place] Comment on above: Performed By: #### C ORT, GFR, TSHR, MORPH, BMP, CBC, DIFF ####[place] [address] Poik 1+ Normal [facility] ([place] Comment on above: Performed By: #### C ORT, GFR, TSHR, MORPH, BMP, CBC, DIFF ####[place] [address] BMPon 04-27-2024 BUN/Creatinine Ratio 13.5 ratio Normal 10.0-22.0 [facility] ([place] Comment on above: Performed By: #### C ORT, GFR, TSHR, MORPH, BMP, CBC, DIFF ####[place] [address] Calcium [Mass/Vol] 8.0 mg/dL Low 8.7-10.4 [facility] ([place] Comment on above: Performed By: #### C ORT, GFR, TSHR, MORPH, BMP, CBC, DIFF ####[address] [address] Chloride [Moles/Vol] 109 mmol/L Normal 98-110 [facility] ([place] Comment on above: Performed By: #### C ORT, GFR, TSHR, MORPH, BMP, CBC, DIFF ####[address] [address] CO2 [Moles/Vol] 24 mmol/L Normal 22-32 [facility] ([place] Comment on above: Performed By: #### C ORT, GFR, TSHR, MORPH, BMP, CBC, DIFF ####[address] [address] Creatinine [Mass/Vol] 0.96 mg/dL Normal 0.50-1.20 [facility] ([place]) Comment on above: Performed By: #### C ORT, GFR, TSHR, MORPH, BMP, CBC, DIFF ####[address] [address] Electrolyte Balance 5.0 mEq/L Normal 4.0-15.0 [facility] ([place] Comment on above: Performed By: #### C ORT, GFR, TSHR, MORPH, BMP, CBC, DIFF ####[address] [address] Glucose [Mass/Vol] 81 mg/dL Low 82-115 [facility] [place] Comment on above: Performed By: #### C ORT, GFR, TSHR, MORPH, BMP, CBC, DIFF ####[address] [address] Potassium [Moles/Vol] 3.6 mmol/L Normal 3.5-5.0 [facility] ([place] Comment on above: Performed By: #### C ORT, GFR, TSHR, MORPH, BMP, CBC, DIFF ####[address] [address] Sodium [Moles/Vol] 138 mmol/L Normal 136-145 [facility] ([place] Comment on above: Performed By: #### C ORT, GFR, TSHR, MORPH, BMP, CBC, DIFF ####[place] [address] Urea nitrogen [Mass/Vol] 13.0 mg/dL Normal 8.0-22.0 [facility] ([place] Comment on above: Performed By: #### C ORT, GFR, TSHR, MORPH, BMP, CBC, DIFF ####[place] [address] CBCon 04-27-2024 Erythrocyte distribution width (RBC) [Ratio] 17.7 % High 11.5-15.5 [facility] ([place] Comment on above: Performed By: #### C ORT, GFR, TSHR, MORPH, BMP, CBC, DIFF ####[place] [address] Hematocrit (Bld) [Volume fraction] 25.1 % Low 34.0-46.0 [facility] ([place] Comment on above: Performed By: #### C ORT, GFR, TSHR, MORPH, BMP, CBC, DIFF ####[place] [address] Hgb 8.3 G/dL Low 12.0-16.0 [facility] ([place] Comment on above: Performed By: #### C ORT, GFR, TSHR, MORPH, BMP, CBC, DIFF ####[place] [address] MCH (RBC) [Entitic mass] 31.4 pg Normal 27.0-33.0 [facility] ([place] Comment on above: Performed By: #### C ORT, GFR, TSHR, MORPH, BMP, CBC, DIFF ####[place] [address] MCHC 33.3 G/dL Normal 32.0-36.0 [facility] ([place] Comment on above: Performed By: #### C ORT, GFR, TSHR, MORPH, BMP, CBC, DIFF ####[place] [address] MCV (RBC) [Entitic vol] 94.4 fL Normal 80.0-99.0 [facility] ([place] Comment on above: Performed By: #### C ORT, GFR, TSHR, MORPH, BMP, CBC, DIFF ####[place] [address] Platelet 298 10 3/mcL Normal 150-450 [facility] ([place] Comment on above: Performed By: #### C ORT, GFR, TSHR, MORPH, BMP, CBC, DIFF ####[place] [address] Platelet mean volume (Bld) [Entitic vol] 9.7 fL Normal 6.6-10.5 [facility] ([place]) Comment on above: Performed By: #### C ORT, GFR, TSHR, MORPH, BMP, CBC, DIFF ####[place] [address] RBC 2.66 10 6/mcL Low 4.10-5.30 [facility] ([place]) Comment on above: Performed By: #### C ORT, GFR, TSHR, MORPH, BMP, CBC, DIFF ####[place] [address] WBC 22.3 10 3/mcL High 4.5-10.8 [facility] ([place]) Comment on above: Performed By: #### C ORT, GFR, TSHR, MORPH, BMP, CBC, DIFF ####[place] [address] CORTon 04-27-2024 Cortisol Level 21.0 mcg/dL Normal [facility] ([place]) Comment on above: Result Comment: Jelani isol AM Reference Range 6.5-26.0 mcg/dL Cortisol PM Reference Range 3.5-15.0 mcg/dL Performed By: #### C ORT, GFR, TSHR, MORPH, BMP, CBC, DIFF ####[place] [address] CT ABDOMEN/PELVIS W/CONTRAST on 04-27-2024 CT ABDOMEN/PELVIS [...] 04/27/2024 8:45:58 PM Ordering Provider: AGUILAR [facility] ([place]) LABORATORYOrdered By: SYSTEM SYSTEM on 04-27-2024 Anisocytosis [...] TSHRon 04-27-2024 TSH 4.494 mIU/mL Normal 0.550-4.780 [facility] ([place]) Comment on above: Result Comment: No te - New Reference Range in effect 20 Performed By: #### C ORT, GFR, TSHR, MORPH, BMP, CBC, DIFF ####[address] [address] .GFRon 04-26-2024 GFR Non- 51 ml/min/1.73sqm Normal [facility] ([place]) Comment on above: Result Comment: GFR Population [...] #### C BC, BMP, DIFF, GFR, MORPH ####[address] [address] GFR >60 Normal [facility] ([place]) Comment on above: Result Comment: GFR Population [...] #### C BC, BMP, DIFF, GFR, MORPH ####[place] [address] .Manual Diffon 04-26-2024 Bands 1.0 % Normal 0.0-5.0 [facility] ([place]) Comment on above: Performed By: #### C BC, BMP, DIFF, GFR, MORPH ####[place] [address] Basophil %, Manual 0.0 % Normal 0.0-2.5 [facility] ([place]) Comment on above: Performed By: #### C BC, BMP, DIFF, GFR, MORPH ####[place] [address] Basophil, Abs Manual 0.0 10 3/mcL Normal 0.0-0.3 [facility] ([place]) Comment on above: Performed By: #### C BC, BMP, DIFF, GFR, MORPH ####[place] [address] Eosinophil %, Manual 2.0 % Normal 0.0-6.0 [facility] ([place]) Comment on above: Performed By: #### C BC, BMP, DIFF, GFR, MORPH ####[place] [address] Eosinophil, Abs Manual 0.5 10 3/mcL Normal 0.0-0.7 [facility] ([place]) Comment on above: Performed By: #### C BC, BMP, DIFF, GFR, MORPH ####[place] [address] Lymphocyte %, Manual 5.0 % Low 20.0-40.0 [facility] ([place]) Comment on above: Performed By: #### C BC, BMP, DIFF, GFR, MORPH ####[address] [address] Lymphocyte, Abs Manual 1.3 10 3/mcL Normal 0.9-4.3 [facility] ([place]) Comment on above: Performed By: #### C BC, BMP, DIFF, GFR, MORPH ####[address] [address] Metamyelocyte 1.0 % Normal [facility] ([place]) Comment on above: Performed By: #### C BC, BMP, DIFF, GFR, MORPH ####[address] [address] Monocyte %, Manual 3.0 % Normal 2.0-13.0 [facility] ([place]) Comment on above: Performed By: #### C BC, BMP, DIFF, GFR, MORPH ####[address] [address] Monocyte, Abs Manual 0.8 10 3/mcL Normal 0.1-1.4 [facility] ([place]) Comment on above: Performed By: #### C BC, BMP, DIFF, GFR, MORPH ####[address] [address] Neutrophil %, Manual 88.0 % High 50.0-75.0 [facility] ([place]) Comment on above: Performed By: #### C BC, BMP, DIFF, GFR, MORPH ####[address] [address] Neutrophil, Abs Manual 23.7 10 3/mcL High 2.3-8.1 [facility] ([place]) Comment on above: Performed By: #### C BC, BMP, DIFF, GFR, MORPH ####[address] [address] Nucleated RBC 1.0 /100 WBC Normal [facility] ([place]) Comment on above: Performed By: #### C BC, BMP, DIFF, GFR, MORPH ####[place] [address] .Morphon 04-26-2024 Anisocytosis Ql (Bld) 1+ Normal [facility] ([place]) Comment on above: Performed By: #### C BC, BMP, DIFF, GFR, MORPH ####[place] [address] Ovalocytes 1+ Normal [facility] ([place]) Comment on above: Performed By: #### C BC, BMP, DIFF, GFR, MORPH ####[place] [address] Platelet Estimate Normal Normal [facility] ([place]) Comment on above: Performed By: #### C BC, BMP, DIFF, GFR, MORPH ####[place] [address] Poik 1+ Normal [facility] ([place]) Comment on above: Performed By: #### C BC, BMP, DIFF, GFR, MORPH ####[place] [address] Toxic Gran 1+ Normal [facility] ([place]) Comment on above: Performed By: #### C BC, BMP, DIFF, GFR, MORPH ####[place] [address] APTTon 04-26-2024 aPTT Coag (Bld) [Time] 55.4 s High 25.0-35.0 [facility] ([place]) Comment on above: Result Comment: For Heparin anticoagulation therapy, the recommended therapeutic range is: 54-77 seconds (APTT Correlation with Anti-Xa therapeutic range of 0.3-0.7 units/ml). PLEASE REFERENCE THE PHARMACY PROTOCOL FOR DOSING. Performed By: #### C BC, BMP, DIFF, GFR, MORPH ####[place] [address] Heparin dose (APTT) Heparin IV Normal [facility] ([place]) Comment on above: Performed By: #### C BC, BMP, DIFF, GFR, MORPH ####[place] [address] BMPon 04-26-2024 BUN/Creatinine Ratio 17.0 ratio Normal 10.0-22.0 [facility] ([place]) Comment on above: Performed By: #### C BC, BMP, DIFF, GFR, MORPH ####[address] [address] Calcium [Mass/Vol] 8.3 mg/dL Low 8.7-10.4 [facility] ([place]) Comment on above: Performed By: #### C BC, BMP, DIFF, GFR, MORPH ####[place] [id number] Chloride [Moles/Vol] 105 mmol/L Normal 98-110 [facility] ([place]) Comment on above: Performed By: #### C BC, BMP, DIFF, GFR, MORPH ####[address] [address] CO2 [Moles/Vol] 23 mmol/L Normal 22-32 [facility] ([place]) Comment on above: Performed By: #### C BC, BMP, DIFF, GFR, MORPH ####[place] [address] Creatinine [Mass/Vol] 1.06 mg/dL Normal 0.50-1.20 [facility] ([place]) Comment on above: Performed By: #### C BC, BMP, DIFF, GFR, MORPH ####[address] [address] Electrolyte Balance 8.0 mEq/L Normal 4.0-15.0 [facility] ([place]) Comment on above: Performed By: #### C BC, BMP, DIFF, GFR, MORPH ####[address] [address] Glucose [Mass/Vol] 87 mg/dL Normal 82-115 [facility] ([place]) Comment on above: Performed By: #### C BC, BMP, DIFF, GFR, MORPH ####[address] [address] Potassium [Moles/Vol] 3.6 mmol/L Normal 3.5-5.0 [facility] ([place]) Comment on above: Performed By: #### C BC, BMP, DIFF, GFR, MORPH ####[place] [address] Sodium [Moles/Vol] 136 mmol/L Normal 136-145 [facility] ([place]) Comment on above: Performed By: #### C BC, BMP, DIFF, GFR, MORPH ####[place] [address] Urea nitrogen [Mass/Vol] 18.0 mg/dL Normal 8.0-22.0 [facility] ([place]) Comment on above: Performed By: #### C BC, BMP, DIFF, GFR, MORPH ####[place] [address] CBCon 04-26-2024 Erythrocyte distribution width (RBC) [Ratio] 17.6 % High 11.5-15.5 [facility] ([place]) Comment on above: Performed By: #### C BC, BMP, DIFF, GFR, MORPH ####[place] [address] Hematocrit (Bld) [Volume fraction] 27.5 % Low 34.0-46.0 [facility] ([place]) Comment on above: Performed By: #### C BC, BMP, DIFF, GFR, MORPH ####[place] [address] Hgb 9.0 G/dL Low 12.0-16.0 [facility] ([place]) Comment on above: Performed By: #### C BC, BMP, DIFF, GFR, MORPH ####[place] [address] MCH (RBC) [Entitic mass] 31.1 pg Normal 27.0-33.0 [facility] ([place]) Comment on above: Performed By: #### C BC, BMP, DIFF, GFR, MORPH ####[place] [address] MCHC 32.7 G/dL Normal 32.0-36.0 [facility] ([place]) Comment on above: Performed By: #### C BC, BMP, DIFF, GFR, MORPH ####[place] [address] MCV (RBC) [Entitic vol] 94.9 fL Normal 80.0-99.0 [facility] ([place]) Comment on above: Performed By: #### C BC, BMP, DIFF, GFR, MORPH ####[address] [address] Platelet 276 10 3/mcL Normal 150-450 [facility] ([place]) Comment on above: Performed By: #### C BC, BMP, DIFF, GFR, MORPH ####[place] [address] Platelet mean volume (Bld) [Entitic vol] 10.0 fL Normal 6.6-10.5 [facility] ([place]) Comment on above: Performed By: #### C BC, BMP, DIFF, GFR, MORPH ####[place] [address] RBC 2.89 10 6/mcL Low 4.10-5.30 [facility] ([place]) Comment on above: Performed By: #### C BC, BMP, DIFF, GFR, MORPH ####[place] [address] WBC 26.7 10 3/mcL High 4.5-10.8 [facility] ([place]) Comment on above: Performed By: #### C BC, BMP, DIFF, GFR, MORPH ####[address] [address] LABORATORYOrdered By: Juan on 04-26-2024 aPTT Coag [...] 04/26/2024 1:56:29 PM Ordering Provider: ELIZABETH LARA [facility] ([place]) XR ABDOMEN 2 VIEWS W/ DECUB/ ERECTon [...] 04/26/2024 3:24:13 PM Ordering Provider: AGUILAR LOPEZ [facility] ([place]) .GFRon 04-25-2024 GFR Non- 42 ml/min/1.73sqm Normal [facility] ([place]) Comment on above: Result Comment: GFR Population [...] meters Performed By: #### G FR, BMP ####[place] [address] GFR 51 ml/min/1.73sqm Normal [facility] ([place]) Comment on above: Result Comment: GFR Population [...] meters Performed By: #### G FR, BMP ####[place] [id number] .Manual Diffon 04-25-2024 Bands 1.0 % Normal 0.0-5.0 [facility] ([place]) Comment on above: Performed By: #### M ORPH, DIFF, CBC ####[address] [address] Basophil %, Manual 0.0 % Normal 0.0-2.5 [facility] ([place]) Comment on above: Performed By: #### M ORPH, DIFF, CBC ####[address] [address] Basophil, Abs Manual 0.0 10 3/mcL Normal 0.0-0.3 [facility] ([place]) Comment on above: Performed By: #### M ORPH, DIFF, CBC ####[address] [address] Eosinophil %, Manual 1.0 % Normal 0.0-6.0 [facility] ([place]) Comment on above: Performed By: #### M ORPH, DIFF, CBC ####[address] [address] Eosinophil, Abs Manual 0.2 10 3/mcL Normal 0.0-0.7 [facility] ([place]) Comment on above: Performed By: #### M ORPH, DIFF, CBC ####[address] [address] Lymphocyte %, Manual 11.0 % Low 20.0-40.0 [facility] ([place]) Comment on above: Performed By: #### M ORPH, DIFF, CBC ####[address] [address] Lymphocyte, Abs Manual 2.7 10 3/mcL Normal 0.9-4.3 [facility] ([place]) Comment on above: Performed By: #### M ORPH, DIFF, CBC ####[address] [address] Monocyte %, Manual 1.0 % Low 2.0-13.0 [facility] ([place]) Comment on above: Performed By: #### M ORPH, DIFF, CBC ####[address] [address] Monocyte, Abs Manual 0.2 10 3/mcL Normal 0.1-1.4 [facility] ([place]) Comment on above: Performed By: #### M ORPH, DIFF, CBC ####[place] [address] Neutrophil %, Manual 86.0 % High 50.0-75.0 [facility] ([place]) Comment on above: Performed By: #### M ORPH, DIFF, CBC ####[place] [address] Neutrophil, Abs Manual 20.9 10 3/mcL High 2.3-8.1 [facility] ([place]) Comment on above: Performed By: #### M ORPH, DIFF, CBC ####[place] [address] Nucleated RBC 0.0 /100 WBC Normal [facility] ([place]) Comment on above: Performed By: #### M ORPH, DIFF, CBC ####[place] [address] .Morphon 04-25-2024 Anisocytosis Ql (Bld) 1+ Normal [facility] ([place]) Comment on above: Performed By: #### M ORPH, DIFF, CBC ####[place] [address] Ovalocytes 1+ Normal [facility] ([place]) Comment on above: Performed By: #### M ORPH, DIFF, CBC ####[place] [address] Platelet Estimate Normal Normal [facility] ([place]) Comment on above: Performed By: #### M ORPH, DIFF, CBC ####[place] [address] Poik 1+ Normal [facility] ([place]) Comment on above: Performed By: #### M ORPH, DIFF, CBC ####[place] [address] Polychrom 1+ Normal [facility] ([place]) Comment on above: Performed By: #### M ORPH, DIFF, CBC ####[place] [address] ABO/Rh (Gel)on 04-25-2024 ABO/Rh Interp Positive Invalid Interpretation Code [facility] ([place]) Comment on above: Performed By: #### A JEF ASHFORD ####[place] [address] ABS (Gel)on 04-25-2024 ABSC Interp (Gel) Negative Normal [facility] ([place]) Comment on above: Performed By: #### A JEF ASHFORD ####[place] [address] APTTon 04-25-2024 aPTT Coag (Bld) [Time] 54.6 s High 25.0-35.0 [facility] ([place]) Comment on above: Result Comment: For Heparin anticoagulation therapy, the recommended therapeutic range is: 54-77 seconds (APTT Correlation with Anti-Xa therapeutic range of 0.3-0.7 units/ml). PLEASE REFERENCE THE PHARMACY PROTOCOL FOR DOSING. Heparin dose (APTT) Heparin IV Normal [facility] ([place]) aPTT Coag (Bld) [Time] 65.7 s High 25.0-35.0 [facility] ([place]) Comment on above: Result Comment: For Heparin anticoagulation therapy, the recommended therapeutic range is: 54-77 seconds (APTT Correlation with Anti-Xa therapeutic range of 0.3-0.7 units/ml). PLEASE REFERENCE THE PHARMACY PROTOCOL FOR DOSING. Heparin dose (APTT) Heparin IV Normal [facility] ([place]) aPTT Coag (Bld) [Time] 74.8 s High 25.0-35.0 [facility] ([place]) Comment on above: Result Comment: For Heparin anticoagulation therapy, the recommended therapeutic range is: 54-77 seconds (APTT Correlation with Anti-Xa therapeutic range of 0.3-0.7 units/ml). PLEASE REFERENCE THE PHARMACY PROTOCOL FOR DOSING. Performed By: ###FAIZAN NIXON ####[place] [address] Heparin dose (APTT) Heparin IV Normal [facility] ([place]) Comment on above: Performed By: #### FAIZAN LAMB ####[place] [address] BCIDon 04-25-2024 Acinetobacter michi-baumanii complex Not detected Normal Not Detected [facility] ([place]) Comment on above: Performed By: #### B JARET ####[place] [address] Bacteroides fragilis Not detected Normal Not Detected [facility] ([place] Comment on above: Performed By: #### B JARET ####[place] [address] BCID Comment See Comment Normal [facility] ([place] Comment on above: Result Comment: Anti [...] to follow. Performed By: #### B JARET ####[place] [address] Virginie albicans Not detected Normal Not Detected [facility] ([place] Comment on above: Performed By: #### B JARET ####[place] [address] Virginie auris Not detected Normal Not Detected [facility] ([place] Comment on above: Performed By: #### B JARET ####[place] [address] Virginie glabrata Not detected Normal Not Detected [facility] ([place] Comment on above: Performed By: #### B JARET ####[place] [address] Virginie krusei Not detected Normal Not Detected [facility] ([place] Comment on above: Performed By: #### B JARET ####[place] [address] Virginie parapsilosis Not detected Normal Not Detected [facility] ([place] Comment on above: Performed By: #### B JARET ####[place] [address] Virginie tropicalis Not detected Normal Not Detected [facility] ([place]) Comment on above: Performed By: #### B JARET ####[address] [place] [address] Cryptococcus neoformans-gattii Not detected Normal Not Detected [facility] ([place] Comment on above: Performed By: #### B JARET ####[place] [address] CTX-M (ESBL) Not detected Normal Not Detected [facility] ([place] Comment on above: Performed By: #### B JARET ####[place] [address] E. Coli Detected Abnormal Not Detected [facility] ([place] Comment on above: Performed By: #### B JARET ####[place] [address] Enterobacter cloacae Complex Not detected Normal Not Detected [facility] ([place] Comment on above: Performed By: #### B JARET ####[place] [address] Enterobacterales Detected Abnormal Not Detected [facility] ([place] Comment on above: Performed By: #### B JARET ####[place] [address] Enterococcus faecalis Not detected Normal Not Detected [facility] ([place] Comment on above: Performed By: #### B JARET ####[place] [address] Enterococcus faecium Not detected Normal Not Detected [facility] ([place] Comment on above: Performed By: #### B JARET ####[place] [address] Haemophilus influenzae Not detected Normal Not Detected [facility] ([place] Comment on above: Performed By: #### B JARET ####[place] [address] IMP (Carbapenemase) Not detected Normal Not Detected [facility] ([place] Comment on above: Performed By: #### B JARET ####[place] [address] Klebsiella aerogenes Not detected Normal Not Detected [facility] ([place] Comment on above: Performed By: #### B JARET ####[place] [address] Klebsiella oxytoca Not detected Normal Not Detected [facility] ([place] Comment on above: Performed By: #### B JARET ####[place] [address] Klebsiella pneumoniae group Not detected Normal Not Detected [facility] ([place] Comment on above: Performed By: #### B JARET ####[place] [address] KPC (Carbapenemase) Not detected Normal Not Detected [facility] ([place] Comment on above: Performed By: #### B JARET ####[place] [address] Listeria monocytogenes Not detected Normal Not Detected [facility] ([place] Comment on above: Performed By: #### B JARET ####[place] [address] MCR-1 (Colistin Resistance) Not detected Normal Not Detected [facility] ([place] Comment on above: Performed By: #### B JARET ####[place] [address] Mec A/C Not Applicable Normal Not Detected [facility] ([place] Comment on above: Performed By: #### B JARET ####[place] [address] Mec A/C-MREJ (MRSA) Not Applicable Normal Not Detected [facility] ([place] Comment on above: Performed By: #### B JARET ####[place] [address] NDM (Carbapenemase) Not detected Normal Not Detected [facility] ([place] Comment on above: Performed By: #### B JARET ####[place] [address] Neisseria meningitidis (Encapsalated) Not detected Normal Not Detected [facility] ([place] Comment on above: Performed By: #### B JARET ####[place] [address] OXA-48 like (Carbapenemase) Not detected Normal Not Detected [facility] ([place] Comment on above: Performed By: #### B JARET ####[place] [address] Proteus Not detected Normal Not Detected [facility] ([place] Comment on above: Performed By: #### B JARET ####[place] [address] Pseudomonas aeruginosa Not detected Normal Not Detected [facility] ([place] Comment on above: Performed By: #### B JARET ####[place] [address] S. agalactiae Org specific cx Ql (Vag fld) Not detected Normal Not Detected [facility] ([place] Comment on above: Performed By: #### B JARET ####[place] [address] Salmonella species Not detected Normal Not Detected [facility] ([place] Comment on above: Performed By: #### B JARET ####[place] [address] Serratia marcescens Not detected Normal Not Detected [facility] ([place] Comment on above: Performed By: #### B JARET ####[place] [address] Staphylococcus Not detected Normal Not Detected [facility] ([place] Comment on above: Performed By: #### B JARET ####[place] [address] Staphylococcus aureus Not detected Normal Not Detected [facility] ([place]) Comment on above: Result Comment: If S taphylococcus aureus is Detected , an Infectious Disease physician consult is required on identification. Performed By: #### B JARET ####[place] [address] Staphylococcus epidermidis Not detected Normal Not Detected [facility] ([place] Comment on above: Performed By: #### B JARET ####[place] [address] Staphylococcus lugdunensis Not detected Normal Not Detected [facility] ([place] Comment on above: Performed By: #### B JARET ####[place] [address] Stenotrophomonas maltophilia Not detected Normal Not Detected [facility] ([place] Comment on above: Performed By: #### B JARET ####[place] [address] Streptococcus Not detected Normal Not Detected [facility] ([place] Comment on above: Performed By: #### B JARET ####[place] [address] Streptococcus pneumoniae Not detected Normal Not Detected [facility] ([place] Comment on above: Performed By: #### B JARET ####[place] [address] Streptococcus pyogenes Not detected Normal Not Detected [facility] ([place] Comment on above: Performed By: #### B JARET ####[place] [address] Van A/B Not Applicable Normal Not Detected [facility] ([place] Comment on above: Performed By: #### B JARET ####[place] [address] VIM (Carbapenemase) Not detected Normal Not Detected [facility] ([place] Comment on above: Performed By: #### B JARET ####[place] [address] BMPon 04-25-2024 BUN/Creatinine Ratio 21.4 ratio Normal 10.0-22.0 [facility] ([place] Comment on above: Performed By: #### G FR, BMP ####[place] [address] Calcium [Mass/Vol] 7.6 mg/dL Low 8.7-10.4 [facility] ([place]) Comment on above: Performed By: #### G FR, BMP ####[place] [address] Chloride [Moles/Vol] 100 mmol/L Normal 98-110 [facility] ([place] Comment on above: Performed By: #### G FR, BMP ####[place] [id number] CO2 [Moles/Vol] 19 mmol/L Low 22-32 [facility] ([place] Comment on above: Performed By: #### G FR, BMP ####[address] [address] Creatinine [Mass/Vol] 1.26 mg/dL High 0.50-1.20 [facility] ([place]) Comment on above: Performed By: #### Tara SAMPSON, BMP ####[place] [address] Electrolyte Balance 9.0 mEq/L Normal 4.0-15.0 [facility] ([place] Comment on above: Performed By: #### Tara SAMPSON, BMP ####[place] [address] Glucose [Mass/Vol] 105 mg/dL Normal 82-115 [facility] ([place] Comment on above: Performed By: #### Tara SAMPSON, BMP ####[place] [address] Potassium [Moles/Vol] 3.8 mmol/L Normal 3.5-5.0 [facility] ([place] Comment on above: Performed By: #### Tara SAMPSON, BMP ####[place] [address] Sodium [Moles/Vol] 128 mmol/L Low 136-145 [facility] ([place] Comment on above: Performed By: #### Tara SAMPSON, BMP ####[place] [address] Urea nitrogen [Mass/Vol] 27.0 mg/dL High 8.0-22.0 [facility] ([place] Comment on above: Performed By: #### Tara SAMPSON, BMP ####[place] [address] CBCon 04-25-2024 Erythrocyte distribution width (RBC) [Ratio] 17.1 % High 11.5-15.5 [facility] ([place]) Comment on above: Performed By: #### M ORPH, DIFF, CBC ####[address] [address] Hematocrit (Bld) [Volume fraction] 19.4 % Low 34.0-46.0 [facility] ([place]) Comment on above: Performed By: #### M ORPH, DIFF, CBC ####[address] [address] Hgb 6.3 G/dL Critically abnormal 12.0-16.0 [facility] ([place]) Comment on above: Performed By: #### M ORPH, DIFF, CBC ####[address] [address] MCH (RBC) [Entitic mass] 31.3 pg Normal 27.0-33.0 [facility] ([place]) Comment on above: Performed By: #### M ORPH, DIFF, CBC ####[address] [address] MCHC 32.6 G/dL Normal 32.0-36.0 [facility] ([place] Comment on above: Performed By: #### M ORPH, DIFF, CBC ####[address] [address] MCV (RBC) [Entitic vol] 95.9 fL Normal 80.0-99.0 [facility] ([place] Comment on above: Performed By: #### M ORPH, DIFF, CBC ####[address] [address] Platelet 236 10 3/mcL Normal 150-450 [facility] ([place] Comment on above: Performed By: #### M ORPH, DIFF, CBC ####[address] [address] Platelet mean volume (Bld) [Entitic vol] 9.6 fL Normal 6.6-10.5 [facility] ([place] Comment on above: Performed By: #### M ORPH, DIFF, CBC ####[address] [address] RBC 2.02 10 6/mcL Low 4.10-5.30 [facility] ([place] Comment on above: Performed By: #### M ORPH, DIFF, CBC ####[address] [address] WBC 24.1 10 3/mcL High 4.5-10.8 [facility] ([place] Comment on above: Performed By: #### M ORPH, DIFF, CBC ####[facility] [place] [address] HHon 04-25-2024 Hematocrit (Bld) [Volume fraction] 25.8 % Low 34.0-46.0 [facility] ([place] Comment on above: Performed By: #### O SMOS #### [facility] [address] [place] [address] Hgb 8.6 G/dL Low 12.0-16.0 [facility] ([place]) Comment on above: Performed By: #### O SMOS #### [facility] [address] [place] [id number] LABORATORYOrdered By: Luis E Duke on 04-25-2024 [...] SS NAURon 04-25-2024 U Sodium <10 Normal [facility] ([place] Comment on above: Performed By: #### O BRANDEE BARRY ####[place] [id number] [address] [place] [address] No Panel Informationon 04-25 Microscopic examination of blood, culture Blood Culture: No Growth at [address] [facility] Microscopic examination of blood, culture Blood Culture: No Growth at [address] [facility] OSMOUon 04-25-2024 U Osmolality 111 mOsm/kg Low 390-1090 [facility] ([place] Comment on above: Performed By: #### O BRANDEE BARRY ####[address] [address] RBC (Product)on 04-25-2024 RBC Product Ready RBC Ready for Pickup Normal [facility] ([place] Comment on above: Performed By: #### R BCP #### [address] [address] .GFRon 04-24-2024 GFR 47 ml/min/1.73sqm Normal [facility] ([place] Comment on above: Result Comment: GFR Population [...] G FR, TROPHS, MG, HFP, LIPID, BMP ####[place] [address] GFR Non- 38 ml/min/1.73sqm Normal [facility] ([place] Comment on above: Result Comment: GFR Population [...] G FR, TROPHS, MG, HFP, LIPID, BMP ####[place] [address] .Manual Diffon 04-24-2024 Bands 2.0 % Normal 0.0-5.0 [facility] ([place]) Comment on above: Performed By: #### O SMOS #### [place] [address] Basophil %, Manual 0.0 % Normal 0.0-2.5 [facility] ([place]) Comment on above: Performed By: #### O SMOS #### [place] [address] Basophil, Abs Manual 0.0 10 3/mcL Normal 0.0-0.3 [facility] ([place]) Comment on above: Performed By: #### O SMOS #### [place] [address] Eosinophil %, Manual 0.0 % Normal 0.0-6.0 [facility] ([place]) Comment on above: Performed By: #### O SMOS #### [address] [address] Eosinophil, Abs Manual 0.0 10 3/mcL Normal 0.0-0.7 [facility] ([place]) Comment on above: Performed By: #### O SMOS #### [address] [address] Lymphocyte %, Manual 5.0 % Low 20.0-40.0 [facility] ([place] Comment on above: Performed By: #### O SMOS #### [address] [address] Lymphocyte, Abs Manual 1.6 10 3/mcL Normal 0.9-4.3 [facility] ([place]) Comment on above: Performed By: #### O SMOS #### [address] [address] Monocyte %, Manual 1.0 % Low 2.0-13.0 [facility] ([place]) Comment on above: Performed By: #### O SMOS #### [address] [address] Monocyte, Abs Manual 0.3 10 3/mcL Normal 0.1-1.4 [facility] ([place]) Comment on above: Performed By: #### O SMOS #### [address] [address] Myelocyte 1.0 % Normal [facility] ([place]) Comment on above: Performed By: #### O SMOS #### [address] [address] Neutrophil %, Manual 91.0 % High 50.0-75.0 [facility] ([place] Comment on above: Performed By: #### O SMOS #### [address] [address] Neutrophil, Abs Manual 29.4 10 3/mcL High 2.3-8.1 [facility] ([place]) Comment on above: Performed By: #### O SMOS #### [address] [address] Nucleated RBC 1.0 /100 WBC Normal [facility] ([place]) Comment on above: Performed By: #### O SMOS #### [place] [address] .Morphon 04-24-2024 Anisocytosis Ql (Bld) 1+ Normal [facility] ([place]) Comment on above: Performed By: #### O SMOS #### [place] [address] Hypochrom 1+ Normal [facility] ([place]) Comment on above: Performed By: #### O SMOS #### [place] [address] Ovalocytes 1+ Normal [facility] ([place]) Comment on above: Performed By: #### O SMOS #### [place] [address] Platelet Estimate Normal Normal [facility] ([place]) Comment on above: Performed By: #### O SMOS #### [place] [address] Poik 1+ Normal [facility] ([place]) Comment on above: Performed By: #### O SMOS #### [place] [address] Polychrom 1+ Normal [facility] ([place]) Comment on above: Performed By: #### O SMOS #### [place] [address] Toxic Gran 1+ Normal [facility] ([place]) Comment on above: Performed By: #### O SMOS #### [place] [address] APTTon 04-24-2024 aPTT Coag (Bld) [Time] 87.6 s High 25.0-35.0 [facility] ([place]) Comment on above: Result Comment: For Heparin anticoagulation therapy, the recommended therapeutic range is: 54-77 seconds (APTT Correlation with Anti-Xa therapeutic range of 0.3-0.7 units/ml). PLEASE REFERENCE THE PHARMACY PROTOCOL FOR DOSING. Heparin dose (APTT) Heparin IV Normal [facility] ([place]) aPTT Coag (Bld) [Time] 147.9 s Critically abnormal 25.0-35.0 [facility] ([place]) Comment on above: Order Comment: recol lect Result Comment: For Heparin anticoagulation therapy, the recommended therapeutic range is: 54-77 seconds (APTT Correlation with Anti-Xa therapeutic range of 0.3-0.7 units/ml). PLEASE REFERENCE THE PHARMACY PROTOCOL FOR DOSING. Heparin dose (APTT) Heparin IV Normal [facility] [place]) Comment on above: Order Comment: recol lect aPTT Coag (Bld) [Time] 145.4 s Critically abnormal 25.0-35.0 [facility] ([place]) Comment on above: Result Comment: For Heparin anticoagulation therapy, the recommended therapeutic range is: 54-77 seconds (APTT Correlation with Anti-Xa therapeutic range of 0.3-0.7 units/ml). PLEASE REFERENCE THE PHARMACY PROTOCOL FOR DOSING. Heparin dose (APTT) Heparin IV Normal [facility] [place] aPTT Coag (Bld) [Time] 125.7 s Critically abnormal 25.0-35.0 [facility] ([place]) Comment on above: Result Comment: For Heparin anticoagulation therapy, the recommended therapeutic range is: 54-77 seconds (APTT Correlation with Anti-Xa therapeutic range of 0.3-0.7 units/ml). PLEASE REFERENCE THE PHARMACY PROTOCOL FOR DOSING. Performed By: #### O SMOS #### [address] [address] Heparin dose (APTT) Coumadin PO Normal [facility] ([place] Comment on above: Performed By: #### O SMOS #### [address] [address] BMPon 04-24-2024 BUN/Creatinine Ratio 17.6 ratio Normal 10.0-22.0 [facility] ([place] Comment on above: Performed By: #### G FR, TROPHS, MG, HFP, LIPID, BMP ####[address] [address] Calcium [Mass/Vol] 7.6 mg/dL Low 8.7-10.4 [facility] ([place]) Comment on above: Performed By: #### G FR, TROPHS, MG, HFP, LIPID, BMP ####[address] [address] Chloride [Moles/Vol] 100 mmol/L Normal 98-110 [facility] ([place] Comment on above: Performed By: #### G FR, TROPHS, MG, HFP, LIPID, BMP ####[address] [address] CO2 [Moles/Vol] 17 mmol/L Low 22-32 [facility] ([place]) Comment on above: Performed By: #### G FR, TROPHS, MG, HFP, LIPID, BMP ####[address] [address] Creatinine [Mass/Vol] 1.36 mg/dL High 0.50-1.20 [facility] ([place]) Comment on above: Performed By: #### G FR, TROPHS, MG, HFP, LIPID, BMP ####[place] [address] Electrolyte Balance 12.0 mEq/L Normal 4.0-15.0 [facility] ([place] Comment on above: Performed By: #### G FR, TROPHS, MG, HFP, LIPID, BMP ####[place] [address] Glucose [Mass/Vol] 111 mg/dL Normal 82-115 [facility] ([place] Comment on above: Performed By: #### G FR, TROPHS, MG, HFP, LIPID, BMP ####[place] [address] Potassium [Moles/Vol] 4.0 mmol/L Normal 3.5-5.0 [facility] ([place]) Comment on above: Performed By: #### G FR, TROPHS, MG, HFP, LIPID, BMP ####[place] [address] Sodium [Moles/Vol] 129 mmol/L Low 136-145 [facility] ([place] Comment on above: Performed By: #### G FR, TROPHS, MG, HFP, LIPID, BMP ####[place] [address] Urea nitrogen [Mass/Vol] 24.0 mg/dL High 8.0-22.0 [facility] ([place]) Comment on above: Performed By: #### G FR, TROPHS, MG, HFP, LIPID, BMP ####[place] [address] CBCon 04-24-2024 Erythrocyte distribution width (RBC) [Ratio] 17.0 % High 11.5-15.5 [facility] ([place]) Comment on above: Performed By: #### R BCP #### [place] [address] Hematocrit (Bld) [Volume fraction] 22.1 % Low 34.0-46.0 [facility] ([place]) Comment on above: Performed By: #### R BCP #### [place] [address] Hgb 7.3 G/dL Low 12.0-16.0 [facility] ([place]) Comment on above: Performed By: #### R BCP #### [place] [address] MCH (RBC) [Entitic mass] 31.7 pg Normal 27.0-33.0 [facility] ([place]) Comment on above: Performed By: #### R BCP #### [place] [address] MCHC 33.2 G/dL Normal 32.0-36.0 [facility] ([place]) Comment on above: Performed By: #### R BCP #### [place] [address] MCV (RBC) [Entitic vol] 95.6 fL Normal 80.0-99.0 [facility] ([place]) Comment on above: Performed By: #### R BCP #### [place] [address] Platelet 231 10 3/mcL Normal 150-450 [facility] ([place]) Comment on above: Performed By: #### R BCP #### [place] [id number] Platelet mean volume (Bld) [Entitic vol] 9.7 fL Normal 6.6-10.5 [facility] ([place]) Comment on above: Performed By: #### R BCP #### [place] [address] RBC 2.31 10 6/mcL Low 4.10-5.30 [facility] ([place]) Comment on above: Performed By: #### R BCP #### [place] [address] WBC 31.7 10 3/mcL High 4.5-10.8 [facility] ([place] Comment on above: Performed By: #### R BCP #### [place] [address] CVFLURVon 04-24-2024 FLU A PCR Negative Normal Negative [facility] ([place]) Comment on above: Performed By: #### C VFLURV ####[place] [address] FLU B PCR Negative Normal Negative [facility] ([place] Comment on above: Performed By: #### C VFLURV ####[place] [address] RSV PCR Negative Normal Negative [facility] ([place]) Comment on above: Performed By: #### C VFLURV ####[place] [address] SARS-CoV-2 (COVID-19) RNA TL+probe Ql (Unsp spec) Negative Normal Negative [facility] ([place]) Comment on above: Result Comment: This test [...] positive results. Performed By: #### C VFLURV ####[place] [address] Robbin 04-24-2024 Ferritin [Mass/Vol] 440.5 ng/mL High 8.0-252.0 [facility] ([place] Comment on above: Performed By: #### F ERR, FES ####[place] [address] FESon 04-24-2024 Iron [Mass/Vol] 26 ug/dL Low 50-170 [facility] ([place]) Comment on above: Performed By: #### F ERR, FES ####[place] [address] Iron Sat 15 % Normal [facility] ([place]) Comment on above: Performed By: #### F ERR, FES ####[place] [address] TIBC 168 mcg/dL Low 250-500 [facility] ([place] Comment on above: Performed By: #### F ERR, FES ####[place] [address] HFPon 04-24-2024 Bili Indirect 0.2 mg/dL Normal 0.1-10.0 [facility] ([place] Comment on above: Performed By: #### G FR, TROPHS, MG, HFP, LIPID, BMP ####[place] [address] Albumin Level 2.0 G/dL Low 3.2-4.8 [facility] ([place] Comment on above: Performed By: #### G FR, TROPHS, MG, HFP, LIPID, BMP ####[address] [address] Albumin/Globulin [Mass ratio] 0.6 {ratio} Low 0.9-1.6 [facility] ([place]) Comment on above: Performed By: #### G FR, TROPHS, MG, HFP, LIPID, BMP ####[address] [address] ALP [Catalytic activity/Vol] 151 U/L High 38-126 [facility] ([place]) Comment on above: Performed By: #### G FR, TROPHS, MG, HFP, LIPID, BMP ####[address] [address] ALT [Catalytic activity/Vol] 350 U/L High 10-49 [facility] ([place]) Comment on above: Performed By: #### G FR, TROPHS, MG, HFP, LIPID, BMP ####[address] [address] AST [Catalytic activity/Vol] 595 U/L High 8-34 [facility] ([place]) Comment on above: Performed By: #### G FR, TROPHS, MG, HFP, LIPID, BMP ####[place] [address] Bili Direct 0.3 mg/dL Normal 0.0-0.4 [facility] ([place]) Comment on above: Result Comment: Use of this assay is not recommended for patients undergoing treatment with eltrombopag due to the potential for falsely elevated results. Performed By: #### G FR, TROPHS, MG, HFP, LIPID, BMP ####[place] [address] Bili Total 0.50 mg/dL Normal 0.20-1.20 [facility] ([place]) Comment on above: Result Comment: Use of this assay is not recommended for patients undergoing treatment with eltrombopag due to the potential for falsely elevated results. Performed By: #### G FR, TROPHS, MG, HFP, LIPID, BMP ####[place] [address] Globulin 3.4 G/dL Normal 1.5-3.8 [facility] ([place]) Comment on above: Performed By: #### G FR, TROPHS, MG, HFP, LIPID, BMP ####[place] [id number] [place] [address] Total Protein 5.4 G/dL Low 5.7-8.2 [facility] ([place]) Comment on above: Result Comment: No te - New Reference Range in effect 20 Performed By: #### G FR, TROPHS, MG, HFP, LIPID, BMP ####[place] [id number] [address] [place] [id number] LABORATORYOrdered By: SYSTEM SYSTEM on 04-24-2024 Troponin [...] 04-24-2024 Cholesterol [Mass/Vol] 71 mg/dL Normal 50-199 [facility] ([place]) Comment on above: Result Comment: Chol esterol Reference Interval: Less than 200 Desirable 200-239 Borderline high risk 240 and above High risk Performed By: #### G FR, TROPHS, MG, HFP, LIPID, BMP ####[place] [address] Cholesterol in HDL [Mass/Vol] 8 mg/dL Low 40-59 [facility] ([place]) Comment on above: Performed By: #### G FR, TROPHS, MG, HFP, LIPID, BMP ####[place] [address] Cholesterol in LDL [Mass/Vol] 44 mg/dL Normal 0-129 [facility] ([place]) Comment on above: Performed By: #### G FR, TROPHS, MG, HFP, LIPID, BMP ####[place] [address] Triglyceride [Mass/Vol] 96 mg/dL Normal 3-149 [facility] ([place]) Comment on above: Performed By: #### G FR, TROPHS, MG, HFP, LIPID, BMP ####[place] [address] MGon 04-24-2024 Magnesium [Mass/Vol] 1.6 mg/dL Normal 1.6-2.4 [facility] ([place] Comment on above: Performed By: #### G FR, TROPHS, MG, HFP, LIPID, BMP ####[place] [address] OSMOSon 04-24-2024 Osmolality [Osmolality] 269 mosm/kg Low 275-300 [facility] ([place]) Comment on above: Performed By: #### O SMOS ####[place] [address] OSMOUon 04-24-2024 U Osmolality 315 mOsm/kg Low 390-1090 [facility] ([place] Comment on above: Performed By: #### O SMOS #### [place] [address] TROPHSon 04-24-2024 High Sensitivity Troponin I 370 ng/L High 0-34 [facility] ([place]) Comment on above: Result Comment: High Sensitive Troponin I Reference Ranges: Female: 0-34 ng/L Male: 0-54 ng/L Testing performed on [employer] IM analyzer using direct chemiluminescent technology. Performed By: #### T EVELIO ####[address] [address] High Sensitivity Troponin I 374 ng/L High 0-34 [facility] ([place]) Comment on above: Result Comment: High Sensitive Troponin I Reference Ranges: Female: 0-34 ng/L Male: 0-54 ng/L Testing performed on [employer] IM analyzer using direct chemiluminescent technology. Performed By: #### T EVELIO ####[place] [address] High Sensitivity Troponin I 456 ng/L High 0-34 [facility] ([place]) Comment on above: Result Comment: High Sensitive Troponin I Reference Ranges: Female: 0-34 ng/L Male: 0-54 ng/L Testing performed on [employer] IM analyzer using direct chemiluminescent technology. Performed By: #### T EVELIO ####[place] [address] High Sensitivity Troponin I 611 ng/L High 0-34 [facility] ([place] Comment on above: Result Comment: High Sensitive Troponin I Reference Ranges: Female: 0-34 ng/L Male: 0-54 ng/L Testing performed on [employer] IM analyzer using direct chemiluminescent technology. Performed By: #### G FR, TROPHS, MG, HFP, LIPID, BMP ####[place] [id number] .GFRon 04-23-2024 GFR 38 ml/min/1.73sqm Normal [facility] ([place]) Comment on above: Result Comment: GFR Population [...] DIFF, LAC, CBC, BMP, GFR ####[address] [place], [place] [address] GFR Non- 31 ml/min/1.73sqm Normal [facility] ([place]) Comment on above: Result Comment: GFR Population [...] PBNP, DIFF, LAC, CBC, BMP, GFR ####[id number] [place], [place] [address] .MDWon 04-23-2024 Monocyte Distribution Width 23.84 High 0.00-20.00 [facility] ([place]) Comment on above: Result Comment: For adults in ED, MDW>20.0 may be associated with a higher risk of sepsis during the first 12hrs of hospital admission The predictive value of MDW for identifying sepsis in patients with hematological abnormalities has not been established Performed By: #### M DW, MORPH, TROPHS, PBNP, DIFF, LAC, CBC, BMP, GFR ####[address] [place], [place] [address] .Manual Diffon 04-23-2024 Bands 3.0 % Normal 0.0-5.0 [facility] ([place]) Comment on above: Performed By: #### M DW, MORPH, TROPHS, PBNP, DIFF, LAC, CBC, BMP, GFR ####[address] [place], [place] [address] Basophil %, Manual 0.0 % Normal 0.0-2.5 [facility] ([place]) Comment on above: Performed By: #### M DW, MORPH, TROPHS, PBNP, DIFF, LAC, CBC, BMP, GFR ####[address] [place], [place] [address] Basophil, Abs Manual 0.0 10 3/mcL Normal 0.0-0.2 [facility] ([place]) Comment on above: Performed By: #### M DW, MORPH, TROPHS, PBNP, DIFF, LAC, CBC, BMP, GFR ####[address] [place], [place] [address] Eosinophil %, Manual 0.0 % Normal 0.0-7.0 [facility] ([place] Comment on above: Performed By: #### M DW, MORPH, TROPHS, PBNP, DIFF, LAC, CBC, BMP, GFR ####[address] [place], [place] [address] Eosinophil, Abs Manual 0.0 10 3/mcL Normal 0.0-0.4 [facility] ([place]) Comment on above: Performed By: #### M DW, MORPH, TROPHS, PBNP, DIFF, LAC, CBC, BMP, GFR ####[address] [place], [place] [address] Lymphocyte %, Manual 7.0 % Low 10.0-50.0 [facility] ([place] Comment on above: Performed By: #### M DW, MORPH, TROPHS, PBNP, DIFF, LAC, CBC, BMP, GFR ####[address] [place], [place] [address] Lymphocyte, Abs Manual 1.7 10 3/mcL Normal 0.8-3.9 [facility] ([place]) Comment on above: Performed By: #### M DW, MORPH, TROPHS, PBNP, DIFF, LAC, CBC, BMP, GFR ####[address] [place], [place] [address] Monocyte %, Manual 3.0 % Normal 1.7-13.0 [facility] ([place] Comment on above: Performed By: #### M DW, MORPH, TROPHS, PBNP, DIFF, LAC, CBC, BMP, GFR ####[address] [place], [place] [address] Monocyte, Abs Manual 0.7 10 3/mcL Normal 0.2-1.0 [facility] ([place] Comment on above: Performed By: #### M DW, MORPH, TROPHS, PBNP, DIFF, LAC, CBC, BMP, GFR ####[address] [place], [place] [address] Neutrophil %, Manual 87.0 % High 37.0-80.0 [facility] ([place] Comment on above: Performed By: #### M DW, MORPH, TROPHS, PBNP, DIFF, LAC, CBC, BMP, GFR ####[address] [place], [place] [address] Neutrophil, Abs Manual 21.1 10 3/mcL High 2.9-6.2 [facility] ([place]) Comment on above: Performed By: #### M DW, MORPH, TROPHS, PBNP, DIFF, LAC, CBC, BMP, GFR ####[address] [place], [place] [address] Nucleated RBC 0.0 /100 WBC Normal [facility] ([place] Comment on above: Performed By: #### M DW, MORPH, TROPHS, PBNP, DIFF, LAC, CBC, BMP, GFR ####[address] [place], [place] [address] .Morphon 04-23-2024 Anisocytosis Ql (Bld) 1+ Normal [facility] ([place] Comment on above: Performed By: #### M DW, MORPH, TROPHS, PBNP, DIFF, LAC, CBC, BMP, GFR ####[address] [place], [place] [address] Hypochrom 1+ Normal [facility] ([place] Comment on above: Performed By: #### M DW, MORPH, TROPHS, PBNP, DIFF, LAC, CBC, BMP, GFR ####[address] [place], [place] [address] Ovalocytes 1+ Normal [facility] ([place] Comment on above: Performed By: #### M DW, MORPH, TROPHS, PBNP, DIFF, LAC, CBC, BMP, GFR ####[address] [place], [place] [address] Platelet Estimate Normal Normal [facility] ([place] Comment on above: Performed By: #### M DW, MORPH, TROPHS, PBNP, DIFF, LAC, CBC, BMP, GFR ####[address] [place], [place] [address] APTTon 04-23-2024 aPTT Coag (Bld) [Time] 30.0 s Normal 25.0-35.0 [facility] ([place]) Comment on above: Result Comment: For Heparin anticoagulation therapy, the recommended therapeutic range is: 45.4-75.9 seconds. Patients on heparin therapy may have an extreme result. Performed By: #### P RO ####[address] [place], [place] [address] Heparin dose (APTT) Unknown Normal [facility] ([place] Comment on above: Performed By: #### P RO ####[address] [place], [place] [address] BMPon 04-23-2024 BUN/Creatinine Ratio 15 ratio Normal 7-27 [facility] ([place] Comment on above: Performed By: #### M DW, MORPH, TROPHS, PBNP, DIFF, LAC, CBC, BMP, GFR ####[address] [place], [place] [address] Calcium [Mass/Vol] 8.6 mg/dL Normal 8.4-10.2 [facility] ([place] Comment on above: Performed By: #### M DW, MORPH, TROPHS, PBNP, DIFF, LAC, CBC, BMP, GFR ####[address] [place], [place] [address] Chloride [Moles/Vol] 93 mmol/L Low 98-107 [facility] ([place] Comment on above: Performed By: #### M DW, MORPH, TROPHS, PBNP, DIFF, LAC, CBC, BMP, GFR ####[address] [place], [place] [address] CO2 [Moles/Vol] 20 mmol/L Low 23-31 [facility] ([place] Comment on above: Performed By: #### M DW, MORPH, TROPHS, PBNP, DIFF, LAC, CBC, BMP, GFR ####[address] [place], [place] [address] Creatinine [Mass/Vol] 1.62 mg/dL High 0.55-1.02 [facility] ([place]) Comment on above: Performed By: #### M DW, MORPH, TROPHS, PBNP, DIFF, LAC, CBC, BMP, GFR ####[address] [place], [place] [address] Electrolyte Balance 15.0 mEq/L Normal 4.0-15.0 [facility] ([place] Comment on above: Performed By: #### M DW, MORPH, TROPHS, PBNP, DIFF, LAC, CBC, BMP, GFR ####[address] [place], [place] [address] Glucose [Mass/Vol] 119 mg/dL High 83-110 [facility] ([place] Comment on above: Performed By: #### M DW, MORPH, TROPHS, PBNP, DIFF, LAC, CBC, BMP, GFR ####[address] [place], [place] [address] Potassium [Moles/Vol] 4.4 mmol/L Normal 3.5-5.1 [facility] ([place]) Comment on above: Performed By: #### M DW, MORPH, TROPHS, PBNP, DIFF, LAC, CBC, BMP, GFR ####[address] [place], [place] [address] Sodium [Moles/Vol] 128 mmol/L Low 136-145 [facility] ([place] Comment on above: Performed By: #### M DW, MORPH, TROPHS, PBNP, DIFF, LAC, CBC, BMP, GFR ####[address] [place], [place] [address] Urea nitrogen [Mass/Vol] 25 mg/dL High 7-18 [facility] ([place] Comment on above: Performed By: #### M DW, MORPH, TROPHS, PBNP, DIFF, LAC, CBC, BMP, GFR ####[address] [place], [place] [address] CBCon 04-23-2024 Erythrocyte distribution width (RBC) [Ratio] 16.2 % High 11.5-14.5 [facility] ([place]) Comment on above: Performed By: #### M DW, MORPH, TROPHS, PBNP, DIFF, LAC, CBC, BMP, GFR ####[address] [place], [place] [address] Hematocrit (Bld) [Volume fraction] 22.7 % Low 37.0-47.0 [facility] ([place] Comment on above: Performed By: #### M DW, MORPH, TROPHS, PBNP, DIFF, LAC, CBC, BMP, GFR ####[address] [place], [place] [address] Hgb 7.6 G/dL Low 12.0-16.0 [facility] ([place] Comment on above: Performed By: #### M DW, MORPH, TROPHS, PBNP, DIFF, LAC, CBC, BMP, GFR ####[address] [place], [place] [address] MCH (RBC) [Entitic mass] 32.3 pg High 27.0-31.2 [facility] ([place]) Comment on above: Performed By: #### M DW, MORPH, TROPHS, PBNP, DIFF, LAC, CBC, BMP, GFR ####[address] [place], [place] [address] MCHC 33.3 G/dL Normal 33.0-37.0 [facility] ([place] Comment on above: Performed By: #### M DW, MORPH, TROPHS, PBNP, DIFF, LAC, CBC, BMP, GFR ####[address] [place], [place] [address] MCV (RBC) [Entitic vol] 96.8 fL High 80.0-94.0 [facility] ([place]) Comment on above: Performed By: #### M DW, MORPH, TROPHS, PBNP, DIFF, LAC, CBC, BMP, GFR ####[address] [place], [place] [address] Platelet 250 10 3/mcL Normal 130-400 [facility] ([place] Comment on above: Performed By: #### M DW, MORPH, TROPHS, PBNP, DIFF, LAC, CBC, BMP, GFR ####[address] [place], [place] [address] Platelet mean volume (Bld) [Entitic vol] 9.4 fL Normal 7.4-10.4 [facility] ([place] Comment on above: Performed By: #### M DW, MORPH, TROPHS, PBNP, DIFF, LAC, CBC, BMP, GFR ####[address] [place], [place] [address] RBC 2.35 10 6/mcL Low 4.20-5.40 [facility] ([place] Comment on above: Performed By: #### M DW, MORPH, TROPHS, PBNP, DIFF, LAC, CBC, BMP, GFR ####[address] [place], [place] [address] WBC 23.5 10 3/mcL High 4.6-10.8 [facility] ([place] Comment on above: Performed By: #### M DW, MORPH, TROPHS, PBNP, DIFF, LAC, CBC, BMP, GFR ####[address] [place], [place] [address] CT ANGIOGRAPHY CHEST W/CONTR [place] 04-23-2024 CT [...] 04/23/2024 11:18:34 PM Ordering Provider: KINGSTON VELASCO [facility] ([place]) LABORATORYOrdered By: Isabel Julien on 04-23-2024 aPTT [...] ng/L Male: 0-76 ng/L Testing performed on [employer] using a homogeneous sandwich chemiluminescent immunoassay based on [employer] technology. Anisocytosis Ql (Bld) 1+ *NA* (04/23/24 [...] Workflow SS Natriuretic peptide.B prohormone N-Terminal [Mass/Vol] 65897 pg/mL High 0 - 125 pg/mL AO [...] ng/L Male: 0-76 ng/L Testing performed on [employer] using a homogeneous sandwich chemiluminescent immunoassay based on [employer] technology. Urea nitrogen [Mass/Vol] 25 mg/dL High [...] Lactic Acid Lvl 1.9 mmol/L Normal 0.4-2.0 [facility] ([place]) Comment on above: Performed By: #### M DW, MORPH, TROPHS, PBNP, DIFF, LAC, CBC, BMP, GFR ####Shahla [id number] [place] [id number] No Panel Informationon 04-23 GSANA Gram Negative Rods [facility] Microscopic examination of blood, culture Culture has been received in lab and is no growth to date. Routine cultures are held for 5 days. [facility] PBNPon 04-23-2024 Natriuretic peptide B (Bld) [Mass/Vol] 81167 pg/mL High 0-125 [facility] ([place]) Comment on above: Result Comment: NT-p roBNP results of less than 300 pg/mL effectively rules out acute congestive heart failure with 99% negative predictive value. Performed By: #### M DW, MORPH, TROPHS, PBNP, DIFF, LAC, CBC, BMP, GFR ####Shahla [address] [place], [place] [address] PROon 04-23-2024 PT Coag (PPP) [Time] 16.2 s High 9.0-14.4 [facility] ([place]) Comment on above: Performed By: #### P RO ####[address] [place], [place] [address] PT International Ratio 1.4 Normal [facility] ([place]) Comment on above: Result Comment: The [employer] (CHEST, 1992, 102:312S-25S) recommended therapeutic range for oral anticoagulant therapy is: LOW RISK: Prophylaxis of venous thrombosis INR: 2.0-3.0 Treatment of pulmonary embolism 2.0-3.0 Prevention of systemic embolism 2.0-3.0 HIGH RISK: Mechanical prosthetic valves 2.5-3.5 Performed By: #### P RO ####[address] [place], [place] [address] TROPHSon 04-23-2024 High Sensitivity Troponin I 478 ng/L High 0-51 [facility] ([place]) Comment on above: Result Comment: High Sensitive Troponin I Reference Ranges: Female: 0-51 ng/L Male: 0-76 ng/L Testing performed on [employer] using a homogeneous sandwich chemiluminescent immunoassay based on [employer] technology. Performed By: #### T ROPHS ####[address] [place], [place] [address] High Sensitivity Troponin I 468 ng/L High 0-51 [facility] ([place]) Comment on above: Result Comment: High Sensitive Troponin I Reference Ranges: Female: 0-51 ng/L Male: 0-76 ng/L Testing performed on [employer] using a homogeneous sandwich chemiluminescent immunoassay based on [employer] technology. Performed By: #### M DW, MORPH, TROPHS, PBNP, DIFF, LAC, CBC, BMP, GFR ####Shahla [address] [place], [place] [address] XR CHEST 1 VIEWon 04-23-2024 XR CHEST [...] 04/23/2024 9:49:22 PM Ordering Provider: [place] Francisco [facility] ([place]) .Auto Diffon 04-21-2024 Basophil, Absolute 0.0 10 3/mcL Normal 0.0-0.2 [facility] ([place]) Comment on above: Performed By: #### B 12 ####[address] [address]#### GFR, CBC, ANEU, BMP, MG, ADIFF ####Shahla [address] [place], [place] [address] Basophils/100 WBC (Bld) 0.3 % Normal 0.0-2.5 [facility] ([place]) Comment on above: Performed By: #### B 12 ####[address] [address]#### GFR, CBC, ANEU, BMP, MG, ADIFF ####[facility] [place], [place] [address] Eosinophil, Absolute 0.0 10 3/mcL Normal 0.0-0.4 [facility] ([place]) Comment on above: Performed By: #### B 12 ####[place] [address]#### GFR, CBC, ANEU, BMP, MG, ADIFF ####[facility] [place], [place] [address] Eosinophils/100 WBC (Bld) 0.4 % Normal 0.0-7.0 [facility] ([place]) Comment on above: Performed By: #### B 12 ####[place] [address]#### GFR, CBC, ANEU, BMP, MG, ADIFF ####[address] [address] Lymphocyte, Absolute 0.8 10 3/mcL Normal 0.8-3.9 [facility] ([place]) Comment on above: Performed By: #### B 12 ####[place] [address]#### GFR, CBC, ANEU, BMP, MG, ADIFF ####[address] [address] Lymphocytes/100 WBC (Bld) 7.6 % Low 10.0-50.0 [facility] ([place]) Comment on above: Performed By: #### B 12 ####[place] [address]#### GFR, CBC, ANEU, BMP, MG, ADIFF ####[facility] [place], [place] [address] Monocyte, Absolute 1.0 10 3/mcL Normal 0.2-1.0 [facility] ([place]) Comment on above: Performed By: #### B 12 ####[place] [address]#### GFR, CBC, ANEU, BMP, MG, ADIFF ####[address] [address] Monocytes/100 WBC (Bld) 8.8 % Normal 1.7-13.0 [facility] ([place]) Comment on above: Performed By: #### B 12 ####[address] [address]#### GFR, CBC, ANEU, BMP, MG, ADIFF ####Shahla Taaw[address] [place], [place] [address] Neutrophils/100 WBC (Bld) 82.9 % High 37.0-80.0 [facility] ([place]) Comment on above: Performed By: #### B 12 ####[address] [address]#### GFR, CBC, ANEU, BMP, MG, ADIFF ####[facility] [place], [place] [address] .GFRon 04-21-2024 GFR Non- 48 ml/min/1.73sqm Normal [facility] ([place]) Comment on above: Result Comment: GFR Population [...] square meters Performed By: #### B 12 ####[address] [address]#### GFR, CBC, ANEU, BMP, MG, ADIFF ####[facility] [place], [place] [address] GFR 58 ml/min/1.73sqm Normal [facility] ([place]) Comment on above: Result Comment: GFR Population [...] square meters Performed By: #### B 12 ####[address] [address]#### GFR, CBC, ANEU, BMP, MG, ADIFF ####[address] [place], [place] [address] .NEUABSon 04-21-2024 Neutrophil, Absolute 9.2 10 3/mcL High 2.9-6.2 [facility] ([place]) Comment on above: Performed By: #### B 12 ####[place] [address]#### GFR, CBC, ANEU, BMP, MG, ADIFF ####[address] [place], [place] [address] B12on 04-21-2024 Cobalamin (Vitamin B12) [Mass/Vol] 1197 pg/mL High 211-911 [facility] ([place]) Comment on above: Performed By: #### B 12 ####[place] [address]#### GFR, CBC, ANEU, BMP, MG, ADIFF ####[address]uz[address] [place], [place] [address] BMPon 04-21-2024 BUN/Creatinine Ratio 17 ratio Normal 7-27 [facility] ([place]) Comment on above: Performed By: #### B 12 ####[address] [address]#### GFR, CBC, ANEU, BMP, MG, ADIFF ####[address] [place], [place] [address] Calcium [Mass/Vol] 8.3 mg/dL Low 8.4-10.2 [facility] ([place]) Comment on above: Performed By: #### B 12 ####[place] [address]#### GFR, CBC, ANEU, BMP, MG, ADIFF ####[address]ds[address] [place], [place] [address] Chloride [Moles/Vol] 102 mmol/L Normal 98-107 [facility] ([place]) Comment on above: Performed By: #### B 12 ####[place] [address]#### GFR, CBC, ANEU, BMP, MG, ADIFF ####[address] [place] [address] CO2 [Moles/Vol] 21 mmol/L Low 23-31 [facility] ([place]) Comment on above: Performed By: #### B 12 ####[place] [address]#### GFR, CBC, ANEU, BMP, MG, ADIFF ####[address] [place], [place] [address] Creatinine [Mass/Vol] 1.13 mg/dL High 0.55-1.02 [facility] ([place]) Comment on above: Performed By: #### B 12 ####[place] [address]#### GFR, CBC, ANEU, BMP, MG, ADIFF ####[address] [place], [place] [address] Electrolyte Balance 11.0 mEq/L Normal 4.0-15.0 [facility] ([place]) Comment on above: Performed By: #### B 12 ####[place] [address]#### GFR, CBC, ANEU, BMP, MG, ADIFF ####[address] [place], [place] [address] Glucose [Mass/Vol] 91 mg/dL Normal 83-110 [facility] ([place]) Comment on above: Performed By: #### B 12 ####[place] [address]#### GFR, CBC, ANEU, BMP, MG, ADIFF ####Shahla [address] [place], [place] [address] Potassium [Moles/Vol] 4.1 mmol/L Normal 3.5-5.1 [facility] ([place]) Comment on above: Performed By: #### B 12 ####[place] [address]#### GFR, CBC, ANEU, BMP, MG, ADIFF ####Shahla [address] [place], [place] [address] Sodium [Moles/Vol] 134 mmol/L Low 136-145 [facility] ([place] Comment on above: Performed By: #### B 12 ####[place] [address]#### GFR, CBC, ANEU, BMP, MG, ADIFF ####Shahla Say[address] [place], [place] [address] Urea nitrogen [Mass/Vol] 19 mg/dL High 7-18 [facility] ([place]) Comment on above: Performed By: #### B 12 ####[place] [address]#### GFR, CBC, ANEU, BMP, MG, ADIFF ####Shahla [address] [place], [place] [address] CBCon 04-21-2024 Erythrocyte distribution width (RBC) [Ratio] 16.4 % High 11.5-14.5 [facility] ([place]) Comment on above: Performed By: #### B 12 ####[place] [address]#### GFR, CBC, ANEU, BMP, MG, ADIFF ####Shahla [address] [place], [place] [address] Hematocrit (Bld) [Volume fraction] 23.8 % Low 37.0-47.0 [facility] ([place]) Comment on above: Performed By: #### B 12 ####[place] [address]#### GFR, CBC, ANEU, BMP, MG, ADIFF ####[address] [place], [place] [address] Hgb 8.1 G/dL Low 12.0-16.0 [facility] ([place]) Comment on above: Performed By: #### B 12 ####[place] [address]#### GFR, CBC, ANEU, BMP, MG, ADIFF ####Shahla [address] [place], [place] [address] MCH (RBC) [Entitic mass] 32.5 pg High 27.0-31.2 [facility] ([place]) Comment on above: Performed By: #### B 12 ####[place] [address]#### GFR, CBC, ANEU, BMP, MG, ADIFF ####[facility] [place] [id number] MCHC 33.8 G/dL Normal 33.0-37.0 [facility] ([place]) Comment on above: Performed By: #### B 12 ####[place] [address]#### GFR, CBC, ANEU, BMP, MG, ADIFF ####[facility] [place], [place] [address] MCV (RBC) [Entitic vol] 96.1 fL High 80.0-94.0 [facility] ([place]) Comment on above: Performed By: #### B 12 ####[place] [address]#### GFR, CBC, ANEU, BMP, MG, ADIFF ####[facility] [place] [id number] Platelet 170 10 3/mcL Normal 130-400 [facility] ([place]) Comment on above: Performed By: #### B 12 ####[place] [address]#### GFR, CBC, ANEU, BMP, MG, ADIFF ####Shahla [address]aw[address] [place], [place] [address] Platelet mean volume (Bld) [Entitic vol] 9.3 fL Normal 7.4-10.4 [facility] ([place] Comment on above: Performed By: #### B 12 ####[place] [address]#### GFR, CBC, ANEU, BMP, MG, ADIFF ####Shahla [address] [place] [address] RBC 2.48 10 6/mcL Low 4.20-5.40 [facility] ([place] Comment on above: Performed By: #### B 12 ####[place] [address]#### GFR, CBC, ANEU, BMP, MG, ADIFF ####[address] [place] [address] WBC 11.1 10 3/mcL High 4.6-10.8 [facility] ([place] Comment on above: Performed By: #### B 12 ####[place] [address]#### GFR, CBC, ANEU, BMP, MG, ADIFF ####Shahla [address] [place] [address] LABORATORYOrdered By: SYSTEM SYSTEM on 04-21-2024 Basophil, [...] 04-21-2024 Magnesium [Mass/Vol] 1.8 mg/dL Normal 1.8-2.4 [facility] ([place]) Comment on above: Performed By: #### B 12 ####[address] [address]#### GFR, CBC, ANEU, BMP, MG, ADIFF ####[facility] [place], [place] [address] .Auto Diffon 04-20-2024 Basophil, Absolute 0.0 10 3/mcL Normal 0.0-0.2 [facility] ([place] Comment on above: Performed By: #### R BCP #### [address] [address] Basophils/100 WBC (Bld) 0.2 % Normal 0.0-2.5 [facility] ([place]) Comment on above: Performed By: #### R BCP #### [address] [address] Eosinophil, Absolute 0.0 10 3/mcL Normal 0.0-0.4 [facility] ([place] Comment on above: Performed By: #### R BCP #### [address] [address] Eosinophils/100 WBC (Bld) 0.0 % Normal 0.0-7.0 [facility] ([place]) Comment on above: Performed By: #### R BCP #### [address] [address] Lymphocyte, Absolute 1.0 10 3/mcL Normal 0.8-3.9 [facility] ([place] Comment on above: Performed By: #### R BCP #### [address] [address] Lymphocytes/100 WBC (Bld) 8.7 % Low 10.0-50.0 [facility] ([place]) Comment on above: Performed By: #### R BCP #### [address] [address] Monocyte, Absolute 1.0 10 3/mcL Normal 0.2-1.0 [facility] ([place]) Comment on above: Performed By: #### R BCP #### [address] [address] Monocytes/100 WBC (Bld) 8.8 % Normal 1.7-13.0 [facility] ([place]) Comment on above: Performed By: #### R BCP #### [address] [address] Neutrophils/100 WBC (Bld) 82.3 % High 37.0-80.0 [facility] ([place]) Comment on above: Performed By: #### R BCP #### [address] [address] .GFRon 04-20-2024 GFR 53 ml/min/1.73sqm Normal [facility] ([place]) Comment on above: Result Comment: GFR [...] meters Performed By: #### R BCP #### [address] [address] GFR Non- 44 ml/min/1.73sqm Normal [facility] ([place]) Comment on above: Result Comment: GFR [...] meters Performed By: #### R BCP #### [address] [address] .NEUABSon 04-20-2024 Neutrophil, Absolute 9.2 10 3/mcL High 2.9-6.2 [facility] ([place] Comment on above: Performed By: #### R BCP #### [place] [id number] BMPon 04-20-2024 BUN/Creatinine Ratio 18 ratio Normal 7-27 [facility] ([place] Comment on above: Performed By: #### R BCP #### [place] [id number] Calcium [Mass/Vol] 8.4 mg/dL Normal 8.4-10.2 [facility] ([place]) Comment on above: Performed By: #### R BCP #### [address] [address] Chloride [Moles/Vol] 95 mmol/L Low 98-107 [facility] ([place] Comment on above: Performed By: #### R BCP #### [place] [id number] CO2 [Moles/Vol] 22 mmol/L Low 23-31 [facility] ([place]) Comment on above: Performed By: #### R BCP #### [address] [address] Creatinine [Mass/Vol] 1.22 mg/dL High 0.55-1.02 [facility] ([place]) Comment on above: Performed By: #### R BCP #### [place] [id number] Electrolyte Balance 11.0 mEq/L Normal 4.0-15.0 [facility] ([place] Comment on above: Performed By: #### R BCP #### [address] [address] Glucose [Mass/Vol] 91 mg/dL Normal 83-110 [facility] ([place]) Comment on above: Performed By: #### R BCP #### [place] [id number] Potassium [Moles/Vol] 3.8 mmol/L Normal 3.5-5.1 [facility] ([place]) Comment on above: Performed By: #### R BCP #### [address] [address] Sodium [Moles/Vol] 128 mmol/L Low 136-145 [facility] ([place] Comment on above: Performed By: #### R BCP #### [place] [id number] Urea nitrogen [Mass/Vol] 22 mg/dL High 7-18 [facility] ([place]) Comment on above: Performed By: #### R BCP #### [place] [id number] CBCon 04-20-2024 Erythrocyte distribution width (RBC) [Ratio] 16.5 % High 11.5-14.5 [facility] ([place]) Comment on above: Performed By: #### R BCP #### [address] [address] Hematocrit (Bld) [Volume fraction] 26.2 % Low 37.0-47.0 [facility] ([place]) Comment on above: Performed By: #### R BCP #### [place] [id number] Hgb 8.9 G/dL Low 12.0-16.0 [facility] ([place]) Comment on above: Performed By: #### R BCP #### [place] [id number] MCH (RBC) [Entitic mass] 32.7 pg High 27.0-31.2 [facility] ([place]) Comment on above: Performed By: #### R BCP #### [place] [id number] MCHC 33.9 G/dL Normal 33.0-37.0 [facility] ([place] Comment on above: Performed By: #### R BCP #### [address] [address] MCV (RBC) [Entitic vol] 96.6 fL High 80.0-94.0 [facility] ([place]) Comment on above: Performed By: #### R BCP #### [place] [address] Platelet 171 10 3/mcL Normal 130-400 [facility] ([place] Comment on above: Performed By: #### R BCP #### [place] [address] Platelet mean volume (Bld) [Entitic vol] 9.2 fL Normal 7.4-10.4 [facility] ([place] Comment on above: Performed By: #### R BCP #### [place] [address] RBC 2.72 10 6/mcL Low 4.20-5.40 [facility] ([place] Comment on above: Performed By: #### R BCP #### [place] [id number] WBC 11.2 10 3/mcL High 4.6-10.8 [facility] ([place] Comment on above: Performed By: #### R BCP #### [place] [address] LABORATORYOrdered By: Wilma Lawler on 04-20-2024 Hemoglobin.gastroint [...] ng/L Male: 0-76 ng/L Testing performed on [employer] using a homogeneous sandwich chemiluminescent immunoassay based on [employer] technology. Urea nitrogen [Mass/Vol] 22 mg/dL High 7 - 18 mg/dL AO ADM SS Urea nitrogen/Creatinine [Mass ratio] 18 ratio Normal 7 - 27 ratio AO ADM SS WBC (Bld) [#/Vol] 11.2 103/mcL High 4.6 - 10.8 10^3/mcL AO Workflow SS MGon 04-20-2024 Magnesium [Mass/Vol] 1.8 mg/dL Normal 1.8-2.4 [facility] ([place] Comment on above: Performed By: #### R BCP #### [place] [address] NAURon 04-20-2024 Sodium [Moles/Vol] 10 mmol/L Low 20-110 [facility] ([place]) Comment on above: Performed By: #### N AUR ####Shahla [address] [address]#### OSMOU ####[address] [address] No Panel Informationon 04-20 Culture Urine >100,000 cfu/ml Escherichia coli ILIR to follow [facility] OCC (LAB)on 04-20-2024 Occult Blood Fecal Negative Normal Negative [facility] ([place]) Comment on above: Performed By: #### O CC ####[place] [address] [place], [place] [address] OSMOSon 04-20-2024 Osmolality [Osmolality] 270 mosm/kg Low 275-300 [facility] ([place]) Comment on above: Performed By: #### O SMOS #### [address] [address] OSMOUon 04-20-2024 U Osmolality 321 mOsm/kg Low 390-1090 [facility] ([place]) Comment on above: Performed By: #### N AUR ####[address] [address]#### OSMOU ####[address] [address] TROPHSon 04-20-2024 High Sensitivity Troponin I 47 ng/L Normal 0-51 [facility] ([place]) Comment on above: Result Comment: High Sensitive Troponin I Reference Ranges: Female: 0-51 ng/L Male: 0-76 ng/L Testing performed on [employer] using a homogeneous sandwich chemiluminescent immunoassay based on [employer] technology. Performed By: #### R BCP #### [place] [address] .Auto Diffon 04-19-2024 Basophil, Absolute 0.0 10 3/mcL Normal 0.0-0.2 [facility] ([place]) Comment on above: Performed By: #### C MP, ADIFF, CK, CBC, GFR, MDW, ANEU, TROPHS, LIP ####Shahla [address] [place], [place] [address] Basophils/100 WBC (Bld) 0.4 % Normal 0.0-2.5 [facility] ([place]) Comment on above: Performed By: #### C MP, ADIFF, CK, CBC, GFR, MDW, ANEU, TROPHS, LIP ####Shahla [address] [place], [place] [address] Eosinophil, Absolute 0.0 10 3/mcL Normal 0.0-0.4 [facility] ([place] Comment on above: Performed By: #### C MP, ADIFF, CK, CBC, GFR, MDW, ANEU, TROPHS, LIP ####Shahla [address] [place], [place] [address] Eosinophils/100 WBC (Bld) 0.1 % Normal 0.0-7.0 [facility] ([place]) Comment on above: Performed By: #### C MP, ADIFF, CK, CBC, GFR, MDW, ANEU, TROPHS, LIP ####Shahla [address] [place], [place] [address] Lymphocyte, Absolute 0.9 10 3/mcL Normal 0.8-3.9 [facility] ([place] Comment on above: Performed By: #### C MP, ADIFF, CK, CBC, GFR, MDW, ANEU, TROPHS, LIP ####Shahla [address] [place], [place] [address] Lymphocytes/100 WBC (Bld) 7.2 % Low 10.0-50.0 [facility] ([place]) Comment on above: Performed By: #### C MP, ADIFF, CK, CBC, GFR, MDW, ANEU, TROPHS, LIP ####Sh[address]la [address] [place], [place] [address] Monocyte, Absolute 1.2 10 3/mcL High 0.2-1.0 [facility] ([place] Comment on above: Performed By: #### C MP, ADIFF, CK, CBC, GFR, MDW, ANEU, TROPHS, LIP ####Sh[address]la [address] [place], [place] [address] Monocytes/100 WBC (Bld) 9.9 % Normal 1.7-13.0 [facility] ([place]) Comment on above: Performed By: #### C MP, ADIFF, CK, CBC, GFR, MDW, ANEU, TROPHS, LIP ####Shahla [address] [place], [place] [address] Neutrophils/100 WBC (Bld) 82.4 % High 37.0-80.0 [facility] ([place]) Comment on above: Performed By: #### C MP, ADIFF, CK, CBC, GFR, MDW, ANEU, TROPHS, LIP ####Shahla [address] [place], [place] [address] .GFRon 04-19-2024 GFR 48 ml/min/1.73sqm Normal [facility] ([place]) Comment on above: Result Comment: GFR Population [...] CBC, GFR, MDW, ANEU, TROPHS, LIP ####Shahla [address] [place], [place] [address] GFR Non- 40 ml/min/1.73sqm Normal [facility] ([place]) Comment on above: Result Comment: GFR Population [...] CBC, GFR, MDW, ANEU, TROPHS, LIP ####Shahla [address] [place], [place] [address] .Won 04-19-2024 Monocyte Distribution Width Not performed Normal 0.00-20.00 [facility] ([place] Comment on above: Result Comment: W testing performed only on adult ER patients between the ages of 18-89 years. Performed By: #### C MP, ADIFF, CK, CBC, GFR, MDW, ANEU, TROPHS, LIP ####Sh[address]la [address] [place], [place] [address] .NEUABSon 04-19-2024 Neutrophil, Absolute 9.8 10 3/mcL High 2.9-6.2 [facility] ([place] Comment on above: Performed By: #### C MP, ADIFF, CK, CBC, GFR, MDW, ANEU, TROPHS, LIP ####Shahla [address] [place], [place] [address] .Urinalysis Microscopic (AO) on 04-19-2024 UA RBC 0-5 Abnormal None Seen [facility] ([place]) Comment on above: Performed By: #### U A, UAMICAO ####Sh[address] [place] [address] UA Squam Epithelial 0-5 Abnormal None Seen [facility] [place] Comment on above: Performed By: #### U A, UAMICAO ####Sh[address] [place] [address] UA WBC 0-5 Abnormal None Seen [facility] ([place] Comment on above: Performed By: #### U A, UAMICAO ####Shahla [address] [place] [id number] CBCon 04-19-2024 Erythrocyte distribution width (RBC) [Ratio] 16.4 % High 11.5-14.5 [facility] ([place]) Comment on above: Performed By: #### C MP, ADIFF, CK, CBC, GFR, MDW, ANEU, TROPHS, LIP ####Shahla [address] [place], [place] [address] Hematocrit (Bld) [Volume fraction] 26.7 % Low 37.0-47.0 [facility] ([place] Comment on above: Performed By: #### C MP, ADIFF, CK, CBC, GFR, MDW, ANEU, TROPHS, LIP ####Sh[address]la [address] [place] [id number] Hgb 8.9 G/dL Low 12.0-16.0 [facility] ([place]) Comment on above: Performed By: #### C MP, ADIFF, CK, CBC, GFR, MDW, ANEU, TROPHS, LIP ####Sh[address]la [address] [place], [place] [address] MCH (RBC) [Entitic mass] 32.1 pg High 27.0-31.2 [facility] ([place]) Comment on above: Performed By: #### C MP, ADIFF, CK, CBC, GFR, MDW, ANEU, TROPHS, LIP ####Shahla [address] [place], [place] [address] MCHC 33.5 G/dL Normal 33.0-37.0 [facility] ([place]) Comment on above: Performed By: #### C MP, ADIFF, CK, CBC, GFR, MDW, ANEU, TROPHS, LIP ####Shahla [address] [place], [place] [address] MCV (RBC) [Entitic vol] 96.0 fL High 80.0-94.0 [facility] ([place]) Comment on above: Performed By: #### C MP, ADIFF, CK, CBC, GFR, MDW, ANEU, TROPHS, LIP ####Shahla [address] [place], [place] [address] Platelet 183 10 3/mcL Normal 130-400 [facility] ([place] Comment on above: Performed By: #### C MP, ADIFF, CK, CBC, GFR, MDW, ANEU, TROPHS, LIP ####Shahla [address] [place], [place] [address] Platelet mean volume (Bld) [Entitic vol] 9.0 fL Normal 7.4-10.4 [facility] ([place] Comment on above: Performed By: #### C MP, ADIFF, CK, CBC, GFR, MDW, ANEU, TROPHS, LIP ####Shahla [address] [place], [place] [address] RBC 2.79 10 6/mcL Low 4.20-5.40 [facility] ([place] Comment on above: Performed By: #### C MP, ADIFF, CK, CBC, GFR, MDW, ANEU, TROPHS, LIP ####Sh[address]la [address] [place], [place] [address] WBC 11.9 10 3/mcL High 4.6-10.8 [facility] ([place] Comment on above: Performed By: #### C MP, ADIFF, CK, CBC, GFR, MDW, ANEU, TROPHS, LIP ####Sh[address] [place], [place] [address] CKon 04-19-2024 CK [Catalytic activity/Vol] 108 U/L Normal 26-192 [facility] ([place]) Comment on above: Performed By: #### C MP, ADIFF, CK, CBC, GFR, MDW, ANEU, TROPHS, LIP ####Sh[address] [place], [place] [address] CMPon 04-19-2024 Albumin Level 2.7 G/dL Low 3.4-4.8 [facility] ([place] Comment on above: Performed By: #### C MP, ADIFF, CK, CBC, GFR, MDW, ANEU, TROPHS, LIP ####[id number] [place], [place] [address] Albumin/Globulin [Mass ratio] 0.7 {ratio} Low 1.1-2.5 [facility] ([place]) Comment on above: Performed By: #### C MP, ADIFF, CK, CBC, GFR, MDW, ANEU, TROPHS, LIP ####[address] [place], [place] [address] ALP [Catalytic activity/Vol] 146 U/L High 40-135 [facility] ([place]) Comment on above: Performed By: #### C MP, ADIFF, CK, CBC, GFR, MDW, ANEU, TROPHS, LIP ####[id number] [place], [place] [address] ALT [Catalytic activity/Vol] 40 U/L Normal 14-59 [facility] ([place]) Comment on above: Performed By: #### C MP, ADIFF, CK, CBC, GFR, MDW, ANEU, TROPHS, LIP ####[id number] [place], [place] [address] AST [Catalytic activity/Vol] 33 U/L Normal 10-40 [facility] ([place]) Comment on above: Performed By: #### C MP, ADIFF, CK, CBC, GFR, MDW, ANEU, TROPHS, LIP ####[id number] [place], [place] [address] Bili Total 0.6 mg/dL Normal 0.2-1.0 [facility] ([place]) Comment on above: Result Comment: Use of this assay is not recommended for patients undergoing treatment with eltrombopag due to the potential for falsely elevated results. Performed By: #### C MP, ADIFF, CK, CBC, GFR, MDW, ANEU, TROPHS, LIP ####Shahla [address] [place], [place] [address] BUN/Creatinine Ratio 21 ratio Normal 7-27 [facility] ([place]) Comment on above: Performed By: #### C MP, ADIFF, CK, CBC, GFR, MDW, ANEU, TROPHS, LIP ####Shahla [address] [place], [place] [address] Calcium [Mass/Vol] 8.9 mg/dL Normal 8.4-10.2 [facility] ([place]) Comment on above: Performed By: #### C MP, ADIFF, CK, CBC, GFR, MDW, ANEU, TROPHS, LIP ####Shahla [address] [place], [place] [address] Chloride [Moles/Vol] 92 mmol/L Low 98-107 [facility] ([place]) Comment on above: Performed By: #### C MP, ADIFF, CK, CBC, GFR, MDW, ANEU, TROPHS, LIP ####Shahla [address] [place], [place] [address] CO2 [Moles/Vol] 24 mmol/L Normal 23-31 [facility] ([place]) Comment on above: Performed By: #### C MP, ADIFF, CK, CBC, GFR, MDW, ANEU, TROPHS, LIP ####Shahla [address] [place], [place] [address] Creatinine [Mass/Vol] 1.32 mg/dL High 0.55-1.02 [facility] ([place]) Comment on above: Performed By: #### C MP, ADIFF, CK, CBC, GFR, MDW, ANEU, TROPHS, LIP ####Sh[address]la [address] [place], [place] [address] Electrolyte Balance 11.0 mEq/L Normal 4.0-15.0 [facility] ([place]) Comment on above: Performed By: #### C MP, ADIFF, CK, CBC, GFR, MDW, ANEU, TROPHS, LIP ####Shahla [address] [place], [place] [address] Globulin 4.1 G/dL Normal [facility] ([place]) Comment on above: Performed By: #### C MP, ADIFF, CK, CBC, GFR, MDW, ANEU, TROPHS, LIP ####Sh[address]la [address] [place], [place] [address] Glucose [Mass/Vol] 95 mg/dL Normal 83-110 [facility] ([place]) Comment on above: Performed By: #### C MP, ADIFF, CK, CBC, GFR, MDW, ANEU, TROPHS, LIP ####Sh[address]la [address] [place], [place] [address] Potassium [Moles/Vol] 4.0 mmol/L Normal 3.5-5.1 [facility] ([place]) Comment on above: Performed By: #### C MP, ADIFF, CK, CBC, GFR, MDW, ANEU, TROPHS, LIP ####Sh[address]la [address] [place], [place] [address] Sodium [Moles/Vol] 127 mmol/L Low 136-145 [facility] ([place]) Comment on above: Performed By: #### C MP, ADIFF, CK, CBC, GFR, MDW, ANEU, TROPHS, LIP ####Sh[address]la [address] [place], [place] [address] Total Protein 6.8 G/dL Normal 6.4-8.2 [facility] ([place]) Comment on above: Performed By: #### C MP, ADIFF, CK, CBC, GFR, MDW, ANEU, TROPHS, LIP ####Shahla [address] [place], [place] [address] Urea nitrogen [Mass/Vol] 28 mg/dL High 7-18 [facility] ([place]) Comment on above: Performed By: #### C MP, ADIFF, CK, CBC, GFR, MDW, ANEU, TROPHS, LIP ####Shahla [address] [place], [place] [address] CT HEAD OR BRAIN W/O CONTRAS Ton [...] Date: 04/19/2024 11:38:20 PM Ordering Provider: KARAN [facility]) CT SPINE CERVICAL W/O CONTRA Forrest [...] Date: 04/19/2024 11:32:28 PM Ordering Provider: KARAN [facility]) CVFLURVon 04-19-2024 FLU A PCR Negative Normal Negative [facility]) Comment on above: Performed By: #### C VFLURV ####Shahla [address] [place], [place] [address] FLU B PCR Negative Normal Negative [facility]) Comment on above: Performed By: #### C VFLURV ####Shahla [address] [place], [place] [address] RSV PCR Negative Normal Negative [facility]) Comment on above: Performed By: #### C VFLURV ####Shahla [address] [place], [place] [address] SARS-CoV-2 (COVID-19) RNA TL+probe Ql (Unsp spec) Negative Normal Negative [facility] ([place]) Comment on above: Result Comment: Resu lts [...] inaccurate positive results. Performed By: #### C [facility] ####Shahla [address] [place], [place] [address] LABORATORYOrdered By: SYSTEM SYSTEM on 04-19-2024 Basophil, [...] ng/L Male: 0-76 ng/L Testing performed on [employer] using a homogeneous sandwich chemiluminescent immunoassay based on [employer] technology. Urea nitrogen [Mass/Vol] 28 mg/dL High [...] 04-19-2024 Lipase Level 66 U/L Normal 16-77 [facility] ([place]) Comment on above: Performed By: #### C MP, ADIFF, CK, CBC, GFR, MDW, ANEU, TROPHS, LIP ####Shahla [address] [place], [place] [address] TROPHSon 04-19-2024 High Sensitivity Troponin I 60 ng/L High 0-51 [facility] ([place]) Comment on above: Result Comment: High Sensitive Troponin I Reference Ranges: Female: 0-51 ng/L Male: 0-76 ng/L Testing performed on [employer] using a homogeneous sandwich chemiluminescent immunoassay based on [employer] technology. Performed By: #### C MP, ADIFF, CK, CBC, GFR, MDW, ANEU, TROPHS, LIP ####Shahla [address] [place], [place] [address] UAon 04-19-2024 Color (U) Yellow Normal [facility] ([place]) Comment on above: Performed By: #### U A, UAMICAO ####[address] [place], [place] [address] Glucose (U) [Mass/Vol] Negative Normal Negative [facility] ([place]) Comment on above: Performed By: #### U A, UAMICAO ####Sh[address] [place], [place] [address] Ketones Ql (U) Negative Normal Negative [facility] ([place]) Comment on above: Performed By: #### U A, UAMICAO ####Sh[address] [place], [place] [address] UA Appear Clear Normal Clear [facility] ([place]) Comment on above: Performed By: #### U A, UAMICAO ####Sh[address] [place], [place] [address] UA Blood Moderate Abnormal Negative [facility] ([place]) Comment on above: Performed By: #### U A, UAMICAO ####Sh[address] [place], [place] [address] UA Leuk Est Negative Normal Negative [facility] ([place]) Comment on above: Performed By: #### U A UAMICAO ####Sh[address] [place], [place] [address] UA Nitrite Negative Normal Negative [facility] ([place]) Comment on above: Performed By: #### U Palmira UAMICAO ####Sh[address] [place], [place] [address] UA pH 5.5 Normal 5.0 - 8.0 [facility] ([place]) Comment on above: Performed By: #### U Palmira UAMICAO ####[address] [place], [place] [address] UA Protein 30 mg/dL Normal Negative [facility] ([place]) Comment on above: Performed By: #### U Palmira UAMICAO ####Sh[address]la [address] [place], [place] [address] UA Spec Grav 1.010 Abnormal 1.015-1.025 [facility] ([place]) Comment on above: Performed By: #### Kristen Chavis UAMICAO ####[address] [place], [place] [address] UA Specimen Type Clean Catch Normal [facility] ([place]) Comment on above: Performed By: #### Kristen Chavis UAMICAO ####[address] [place], [place] [address] UA Urobilinogen 0.2 E.U./dL Normal 0.2-1.0 [facility] ([place]) Comment on above: Performed By: #### U Palmira UAMICAO ####Sh[address] [place], [place] [address] Urobilinogen (U) [Mass/Vol] Negative Normal Negative [facility] ([place]) Comment on above: Performed By: #### U Palmira UAMICAO ####[address] [place], [place] [address] XR CHEST 1 VIEWon 04-19-2024 XR CHEST [...] Date: 04/19/2024 11:32:35 PM Ordering Provider: KARAN [facility] ([place]) XR HIP LEFT W/PELVIS 4 VIEWS on [...] Date: 04/19/2024 11:31:45 PM Ordering Provider: KARAN [facility] ([place]) .Auto Diffon 04-16-2024 Basophil, Absolute 0.1 10 3/mcL Normal 0.0-0.2 [facility]) Comment on above: Performed By: #### C RP, ESR, CBC, ANEU, ADIFF ####[facility] [place], [place] [address] Basophils/100 WBC (Bld) 0.4 % Normal 0.0-2.5 [facility] ([place]) Comment on above: Performed By: #### C RP, ESR, CBC, ANEU, ADIFF ####Sh[address] [place], [place] [address] Eosinophil, Absolute 0.1 10 3/mcL Normal 0.0-0.4 [facility] ([place]) Comment on above: Performed By: #### C RP, ESR, CBC, ANEU, ADIFF ####Sh[address] [place], [place] [address] Eosinophils/100 WBC (Bld) 0.5 % Normal 0.0-7.0 [facility] ([place]) Comment on above: Performed By: #### C RP, ESR, CBC, ANEU, ADIFF ####Shahla [address] [place], [place] [address] Lymphocyte, Absolute 1.3 10 3/mcL Normal 0.8-3.9 [facility] ([place]) Comment on above: Performed By: #### C RP, ESR, CBC, ANEU, ADIFF ####Sh[address] [place], [place] [address] Lymphocytes/100 WBC (Bld) 10.0 % Normal 10.0-50.0 [facility] ([place]) Comment on above: Performed By: #### C RP, ESR, CBC, ANEU, ADIFF ####Sh[address] [place], [place] [address] Monocyte, Absolute 1.0 10 3/mcL Normal 0.2-1.0 [facility] ([place]) Comment on above: Performed By: #### C RP, ESR, CBC, ANEU, ADIFF ####Sh[address] [place], [place] [address] Monocytes/100 WBC (Bld) 8.0 % Normal 1.7-13.0 [facility] ([place]) Comment on above: Performed By: #### C RP, ESR, CBC, ANEU, ADIFF ####[address] [place], [place] [address] Neutrophils/100 WBC (Bld) 81.1 % High 37.0-80.0 [facility] ([place]) Comment on above: Performed By: #### C RP, ESR, CBC, ANEU, ADIFF ####Sh[address]la [address] [place], [place] [address] .NEUABSon 04-16-2024 Neutrophil, Absolute 10.3 10 3/mcL High 2.9-6.2 A [facility] ([place]) Comment on above: Performed By: #### C RP, ESR, CBC, ANEU, ADIFF ####Sh[address]la [address] [place], [place] [address] CBCon 04-16-2024 Erythrocyte distribution width (RBC) [Ratio] 16.8 % High 11.5-14.5 [facility] ([place]) Comment on above: Performed By: #### C RP, ESR, CBC, ANEU, ADIFF ####Sh[address]la [address] [place], [place] [address] Hematocrit (Bld) [Volume fraction] 30.2 % Low 37.0-47.0 [facility] ([place]) Comment on above: Performed By: #### C RP, ESR, CBC, ANEU, ADIFF ####Sh[address]la [address] [place], [place] [address] Hgb 10.0 G/dL Low 12.0-16.0 [facility] ([place]) Comment on above: Performed By: #### C RP, ESR, CBC, ANEU, ADIFF ####Sh[address] [place], [place] [address] MCH (RBC) [Entitic mass] 32.5 pg High 27.0-31.2 [facility] ([place]) Comment on above: Performed By: #### C RP, ESR, CBC, ANEU, ADIFF ####Sh[address] [place], [place] [address] MCHC 33.3 G/dL Normal 33.0-37.0 [facility] ([place]) Comment on above: Performed By: #### C RP, ESR, CBC, ANEU, ADIFF ####Sh[address]la [address] [place], [place] [address] MCV (RBC) [Entitic vol] 97.6 fL High 80.0-94.0 [facility] ([place]) Comment on above: Performed By: #### C RP, ESR, CBC, ANEU, ADIFF ####Shahla [address] [place], [place] [address] Platelet 243 10 3/mcL Normal 130-400 [facility] ([place]) Comment on above: Performed By: #### C RP, ESR, CBC, ANEU, ADIFF ####Shahla [address] [place], [place] [address] Platelet mean volume (Bld) [Entitic vol] 9.1 fL Normal 7.4-10.4 [facility] ([place]) Comment on above: Performed By: #### C RP, ESR, CBC, ANEU, ADIFF ####Sh[address]la [address] [place], [place] [address] RBC 3.09 10 6/mcL Low 4.20-5.40 [facility] ([place]) Comment on above: Performed By: #### C RP, ESR, CBC, ANEU, ADIFF ####Sh[address]la [address] [place], [place] [address] WBC 12.7 10 3/mcL High 4.6-10.8 [facility] ([place]) Comment on above: Performed By: #### C RP, ESR, CBC, ANEU, ADIFF ####Sh[address] [place], [place] [address] CRPon 04-16-2024 C-Reactive Protein 5.8 mg/dL High 0.0-0.3 [facility] ([place]) Comment on above: Performed By: #### C RP, ESR, CBC, ANEU, ADIFF ####Sh[address] [place], [place] [address] CT HIP W/O CONTRAST LEFTon 0 04-16-2024 [...] in the right femoral head on the director dental services image and 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 Suggest right hip CT or MRI 2 clarify and exclude this possibility. Interpreted by: Wolf Kenney MD Preliminary Report By: Wolf Kenney MD Electronically signed By Wolf Kenney MD Dictated Date: 04/16/2024 3:29:38 PM Prelim Date: 04/16/2024 3:37:27 PM Sign Date: 04/16/2024 3:37:27 PM Ordering Provider: SHWETHA Francisco [facility] ([place]) ESRon 04-16-2024 Erythrocyte Sed Rate 109 mm/hr High 0-30 [facility] ([place]) Comment on above: Performed By: #### C RP, ESR, CBC, ANEU, ADIFF ####Shahla [address] [place], [place] [address] XR HAND MINIMUM 3 VIEWS LEFT on [...] 03/03/2024 4:32:59 PM Ordering Provider: AKI TADEO [facility] ([place]) XR SPINE LUMBAR AP/LATon XR SPINE LUMBAR [...] 02/24/2024 4:20:13 PM Ordering Provider: LUIS ELLIOTT [facility] ([place]) XR HIP 2-3 VIEWS LEFTon 04-3 XR [...] 02/18/2024 10:38:19 AM Ordering Provider: LUIS Francisco [facility] ([place]) .Auto Diffon 02-17-2024 Basophil, Absolute 0.0 10 3/mcL Normal 0.0-0.2 [facility] ([place]) Comment on above: Performed By: #### O SMOS #### [address] [address] Basophils/100 WBC (Bld) 0.2 % Normal 0.0-2.5 [facility] ([place]) Comment on above: Performed By: #### O SMOS #### [address] [address] Eosinophil, Absolute 0.1 10 3/mcL Normal 0.0-0.4 [facility] ([place]) Comment on above: Performed By: #### O SMOS #### [address] [address] Eosinophils/100 WBC (Bld) 0.7 % Normal 0.0-7.0 [facility] ([place]) Comment on above: Performed By: #### O SMOS #### [address] [address] Lymphocyte, Absolute 1.5 10 3/mcL Normal 0.8-3.9 [facility] ([place]) Comment on above: Performed By: #### O SMOS #### [address] [address] Lymphocytes/100 WBC (Bld) 17.3 % Normal 10.0-50.0 [facility] ([place]) Comment on above: Performed By: #### O SMOS #### [address] [address] Monocyte, Absolute 0.6 10 3/mcL Normal 0.2-1.0 [facility] ([place]) Comment on above: Performed By: #### O SMOS #### [address] [address] Monocytes/100 WBC (Bld) 7.2 % Normal 1.7-13.0 [facility] ([place]) Comment on above: Performed By: #### O SMOS #### [address] [address] Neutrophils/100 WBC (Bld) 74.6 % Normal 37.0-80.0 [facility] ([place]) Comment on above: Performed By: #### O SMOS #### [address] [address] .GFRon 02-17-2024 GFR 50 ml/min/1.73sqm Normal [facility] ([place]) Comment on above: Result Comment: GFR [...] meters Performed By: #### O SMOS #### [address] [address] GFR Non- 42 ml/min/1.73sqm Normal [facility] ([place]) Comment on above: Result Comment: GFR [...] meters Performed By: #### O SMOS #### [address] [address] .NEUABSon 02-17-2024 Neutrophil, Absolute 6.4 10 3/mcL High 2.9-6.2 [facility] ([place]) Comment on above: Performed By: #### O SMOS #### [address] [address] BMPon 02-17-2024 BUN/Creatinine Ratio 20 ratio Normal 7-27 [facility] ([place]) Comment on above: Performed By: #### O SMOS #### [place] [id number] Calcium [Mass/Vol] 9.2 mg/dL Normal 8.4-10.2 [facility] ([place]) Comment on above: Performed By: #### O SMOS #### [place] [address] Chloride [Moles/Vol] 104 mmol/L Normal 98-107 [facility] ([place]) Comment on above: Performed By: #### O SMOS #### [place] [address] CO2 [Moles/Vol] 25 mmol/L Normal 23-31 [facility] ([place]) Comment on above: Performed By: #### O SMOS #### [place] [address] Creatinine [Mass/Vol] 1.27 mg/dL High 0.55-1.02 [facility] ([place]) Comment on above: Performed By: #### O SMOS #### [place] [id number] Electrolyte Balance 12.0 mEq/L Normal 4.0-15.0 [facility] ([place]) Comment on above: Performed By: #### O SMOS #### [place] [address] Glucose [Mass/Vol] 111 mg/dL High 83-110 [facility] ([place]) Comment on above: Performed By: #### O SMOS #### [address] [address] Potassium [Moles/Vol] 4.3 mmol/L Normal 3.5-5.1 [facility] ([place]) Comment on above: Performed By: #### O SMOS #### [address] [address] Sodium [Moles/Vol] 141 mmol/L Normal 136-145 [facility] ([place]) Comment on above: Performed By: #### O SMOS #### [address] [address] Urea nitrogen [Mass/Vol] 25 mg/dL High 7-18 [facility] ([place]) Comment on above: Performed By: #### O SMOS #### [address] [address] CBCon 02-17-2024 Erythrocyte distribution width (RBC) [Ratio] 16.5 % High 11.5-14.5 [facility] ([place]) Comment on above: Performed By: #### O SMOS #### [address] [address] Hematocrit (Bld) [Volume fraction] 33.3 % Low 37.0-47.0 [facility] ([place]) Comment on above: Performed By: #### O SMOS #### [address] [address] Hgb 11.1 G/dL Low 12.0-16.0 [facility] ([place]) Comment on above: Performed By: #### O SMOS #### [address] [address] MCH (RBC) [Entitic mass] 31.9 pg High 27.0-31.2 [facility] ([place]) Comment on above: Performed By: #### O SMOS #### [address] [address] MCHC 33.5 G/dL Normal 33.0-37.0 [facility] ([place]) Comment on above: Performed By: #### O SMOS #### [address] [address] MCV (RBC) [Entitic vol] 95.2 fL High 80.0-94.0 [facility] ([place]) Comment on above: Performed By: #### O SMOS #### [address] [address] Platelet 239 10 3/mcL Normal 130-400 [facility] ([place]) Comment on above: Performed By: #### O SMOS #### [address] [address] Platelet mean volume (Bld) [Entitic vol] 9.8 fL Normal 7.4-10.4 [facility] ([place]) Comment on above: Performed By: #### O SMOS #### [place] [id number] RBC 3.49 10 6/mcL Low 4.20-5.40 [facility] ([place]) Comment on above: Performed By: #### O SMOS #### [address] [address] WBC 8.6 10 3/mcL Normal 4.6-10.8 [facility] ([place]) Comment on above: Performed By: #### O SMOS #### [address] [address] LABORATORYOrdered By: SYSTEM SYSTEM on 02-17-2024 Basophil, [...] [place] 08-30-2023 Gastrin 76.7 pg/mL Normal <115.0 [facility] ([place]) Comment on above: Result Comment: The Gastrin test was performed using the Siemens Immulite chemiluminescent immunometric method. Results obtained with different assay methods or kits cannot be used interchangeably. Performed By: [address] [address] [employer]: Lucio Chairez III, M.D. CLIA#: [id number] Performed By: #### G AST, RETO ####[address] [place], [place] [address] RETO (AO)on 08-29-2023 Immature Retic Fraction 0.45 IRF Normal 0.20-0.46 [facility] ([place]) Comment on above: Performed By: #### G AST, RETO ####Sh[address] [place], [place] [address] Reticulocytes, Auto 1.0 % Normal 0.2-2.3 [facility] ([place]) Comment on above: Performed By: #### G AST, RETO ####Sh[address] [place], [place] [address] METon 08-06-2023 Methylmalonic Acid, Blood 0.42 umol/l High <=0.40 [facility] ([place]) Comment on above: Result Comment: This test was developed and its performance characteristics determined by [facility] [place] ([facility] It has not been cleared or approved by the FDA. [facility] is regulated under CLIA as qualified to perform high-complexity testing. This test is used for clinical purposes. It should not be regarded as investigational or for research. Performed By: [address] [address] [employer]: Lucio Chairez III, M.D. CLIA#: [id number] Performed By: #### R BCP #### [address] [address] .Auto Diffon 08-01-2023 Basophil, Absolute 0.0 10 3/mcL Normal 0.0-0.2 [facility] ([place]) Comment on above: Performed By: #### M MA, ANEU, CBC, GFR, ADIFF, BMP ####[place] [address]#### HOMO ####[address] [address] Basophils/100 WBC (Bld) 0.4 % Normal 0.0-2.5 [facility] ([place]) Comment on above: Performed By: #### Ranjit MA, ANEU, CBC, GFR, ADIFF, BMP ####[place] [address]#### HOMO ####[address] [address] Eosinophil, Absolute 0.1 10 3/mcL Normal 0.0-0.4 [facility] ([place]) Comment on above: Performed By: #### Ranjit MA, ANEU, CBC, GFR, ADIFF, BMP ####[place] [address]#### HOMO ####[address] [address] Eosinophils/100 WBC (Bld) 1.2 % Normal 0.0-7.0 [facility] ([place]) Comment on above: Performed By: #### Ranjit MA, ANEU, CBC, GFR, ADIFF, BMP ####[place] [address]#### HOMO ####[address] [address] Lymphocyte, Absolute 1.7 10 3/mcL Normal 0.8-3.9 [facility] ([place]) Comment on above: Performed By: #### Ranjit MA, ANEU, CBC, GFR, ADIFF, BMP ####[place] [address]#### HOMO ####[address] [address] Lymphocytes/100 WBC (Bld) 17.7 % Normal 10.0-50.0 [facility] ([place]) Comment on above: Performed By: #### Ranjit MA, ANEU, CBC, GFR, ADIFF, BMP ####[address] [place] [address]#### HOMO ####[address] [address] Monocyte, Absolute 0.8 10 3/mcL Normal 0.2-1.0 [facility] ([place]) Comment on above: Performed By: #### Ranjit MA, ANEU, CBC, GFR, ADIFF, BMP ####Shahla [address] [place], [place] [address]#### HOMO ####[address] [address] Monocytes/100 WBC (Bld) 7.8 % Normal 1.7-13.0 [facility] ([place]) Comment on above: Performed By: #### Ranjit MA, ANEU, CBC, GFR, ADIFF, BMP ####Sh[address] [address]#### HOMO ####[address] [address] Neutrophils/100 WBC (Bld) 72.9 % Normal 37.0-80.0 [facility] ([place]) Comment on above: Performed By: #### M MA, ANEU, CBC, GFR, ADIFF, BMP ####[address] [address]#### HOMO ####[address] [address] .GFRon 08-01-2023 GFR Non- 41 ml/min/1.73sqm Normal [facility] ([place]) Comment on above: Result Comment: GFR Population [...] M MA, ANEU, CBC, GFR, ADIFF, BMP ####[place] [address]#### HOMO ####[address] [address] GFR 50 ml/min/1.73sqm Normal [facility] ([place]) Comment on above: Result Comment: GFR Population [...] Ranjit GARDNER, ANEU, CBC, GFR, ADIFF, BMP ####[place] [address]#### HOMO ####[place] [address] .NEUABSon 08-01-2023 Neutrophil, Absolute 7.0 10 3/mcL High 2.9-6.2 [facility] ([place]) Comment on above: Performed By: #### Ranjit GARDNER ANEU, CBC, GFR, ADIFF, BMP ####[place] [address]#### HOMO ####[place] [address] BMPon 08-01-2023 BUN/Creatinine Ratio 12 ratio Normal 7-27 [facility] ([place]) Comment on above: Performed By: #### Ranjit MA, ANEU, CBC, GFR, ADIFF, BMP ####[place] [address]#### HOMO ####[place] [address] Calcium [Mass/Vol] 9.4 mg/dL Normal 8.4-10.2 [facility] ([place]) Comment on above: Performed By: #### Ranjit GARDNER ANEU, CBC, GFR, ADIFF, BMP ####[place] [address]#### HOMO ####[place] [address] Chloride [Moles/Vol] 105 mmol/L Normal 98-107 [facility] ([place]) Comment on above: Performed By: #### Ranjit GARDNER, ANEU, CBC, GFR, ADIFF, BMP ####[place] [address]#### HOMO ####[place] [address] CO2 [Moles/Vol] 28 mmol/L Normal 23-31 [facility] ([place]) Comment on above: Performed By: #### Ranjit GARDNER ANEU, CBC, GFR, ADIFF, BMP ####[place] [address]#### HOMO ####[place] [address] Creatinine [Mass/Vol] 1.29 mg/dL High 0.55-1.02 [facility] ([place]) Comment on above: Performed By: #### Ranjit GARDNER ANEU, CBC, GFR, ADIFF, BMP ####[place] [address]#### HOMO ####[place] [address] Electrolyte Balance 9.0 mEq/L Normal 4.0-15.0 [facility] ([place] Comment on above: Performed By: #### Ranjit GARDNER ANEU, CBC, GFR, ADIFF, BMP ####[place] [address]#### HOMO ####[place] [address] Glucose [Mass/Vol] 97 mg/dL Normal 83-110 [facility] ([place] Comment on above: Performed By: #### Ranjit GARDNER, ANEU, CBC, GFR, ADIFF, BMP ####[address] [address]#### HOMO ####[address] [address] Potassium [Moles/Vol] 4.9 mmol/L Normal 3.5-5.1 [facility] ([place]) Comment on above: Performed By: #### Ranjit GARDNER, ANEU, CBC, GFR, ADIFF, BMP ####[place] [address]#### HOMO ####[place] [address] Sodium [Moles/Vol] 142 mmol/L Normal 136-145 [facility] ([place] Comment on above: Performed By: #### Ranjit GARDNER, ANEU, CBC, GFR, ADIFF, BMP ####[place] [address]#### HOMO ####[place] [address] Urea nitrogen [Mass/Vol] 15 mg/dL Normal 7-18 [facility] ([place]) Comment on above: Performed By: #### Ranjit GARDNER, ANEU, CBC, GFR, ADIFF, BMP ####[place] [address]#### HOMO ####[place] [address] CBCon 08-01-2023 Erythrocyte distribution width (RBC) [Ratio] 16.3 % High 11.5-14.5 [facility] ([place]) Comment on above: Performed By: #### Ranjit MA, ANEU, CBC, GFR, ADIFF, BMP ####[place] [address]#### HOMO ####[address] [address] Hematocrit (Bld) [Volume fraction] 33.4 % Low 37.0-47.0 [facility] ([place]) Comment on above: Performed By: #### M MA, ANEU, CBC, GFR, ADIFF, BMP ####[place] [address]#### HOMO ####[place] [address] Hgb 11.0 G/dL Low 12.0-16.0 [facility] ([place]) Comment on above: Performed By: #### Ranjit GARDNER, ANEU, CBC, GFR, ADIFF, BMP ####[place] [address]#### HOMO ####[place] [address] MCH (RBC) [Entitic mass] 31.4 pg High 27.0-31.2 [facility] ([place]) Comment on above: Performed By: #### Ranjit GARDNER, ANEU, CBC, GFR, ADIFF, BMP ####[place] [address]#### HOMO ####[place] [address] MCHC 32.9 G/dL Low 33.0-37.0 [facility] ([place]) Comment on above: Performed By: #### Ranjit GARDNER ANEU, CBC, GFR, ADIFF, BMP ####[place] [address]#### HOMO ####[place] [address] MCV (RBC) [Entitic vol] 95.4 fL High 80.0-94.0 [facility] ([place]) Comment on above: Performed By: #### Ranjit GARDNER, ANEU, CBC, GFR, ADIFF, BMP ####[place] [address]#### HOMO ####[place] [address] Platelet 229 10 3/mcL Normal 130-400 [facility] ([place]) Comment on above: Performed By: #### Ranjit GARDNER, ANEU, CBC, GFR, ADIFF, BMP ####[place] [address]#### HOMO ####[place] [address] Platelet mean volume (Bld) [Entitic vol] 10.0 fL Normal 7.4-10.4 [facility] ([place]) Comment on above: Performed By: #### M KENDRA, ANEU, CBC, GFR, ADIFF, BMP ####Shahla [id number] [place] [address]#### HOMO ####[place] [address] RBC 3.50 10 6/mcL Low 4.20-5.40 [facility] ([place]) Comment on above: Performed By: #### Ranjit GARDNER, ANEU, CBC, GFR, ADIFF, BMP ####Shahla [id number] [place] [address]#### HOMO ####[place] [address] WBC 9.6 10 3/mcL Normal 4.6-10.8 [facility] ([place]) Comment on above: Performed By: #### Ranjit GARDNER, ANEU, CBC, GFR, ADIFF, BMP ####[place] [address]#### HOMO ####[place] [address] FEon 08-01-2023 Iron [Mass/Vol] 54 ug/dL Normal 50-170 [facility] ([place]) Comment on above: Performed By: #### F E, FERR ####Shahla [id number] [place] [id number] Robbin 08-01-2023 Ferritin [Mass/Vol] 74.0 ng/mL Normal 8.0-252.0 [facility] ([place]) Comment on above: Performed By: #### F E, FERR ####Shahla [id number] [place] [id number] HOMOon 08-01-2023 Homocysteine 16.4 umol/l High 3.7-13.9 [facility] ([place]) Comment on above: Result Comment: No te - New Reference Range in effect 20 Performed By: #### R BCP #### [place] [address] LABORATORYOrdered By: SYSTEM SYSTEM on 08-01-2023 Basophil, [...] MA MAMMOGRAM SCREENING BILATERAL W/ANTHONY ORIGINAL FROM: [address] [address] PROCEDURE FOR: HERB VALDES [address] [place] [id number] Home: PID#: [id number] Exam#: [id number] : 1955 Age: 68 TO: LUIS ELLIOTT APRN [facility] [place], [place] [address] Fax: NO FAX EXAMINATION: SCREENING DIGITAL BILATERAL [...] 06/25/2023 7:12:43 PM Ordering Provider: LUIS ELLIOTT Counselor Education Professor: RIA JOHNSON RT (R)(M) letter sent: Normal BI-RADS 1 and 2 Mammogram BI-RADS: 2 Benign Normal [facility] ([place]) BD BONE DENSITY DEXA AXIAL S [facility] 2023 BD BONE DENSITY DEXA AXIAL SKELETON [...] 2023 3:45:59 PM Ordering Provider: LUIS ELLIOTT [facility] ([place]) LABORATORYOrdered By: Shanna Albarado on 05-29-2023 Albumin [...] Probable Contamination. Suggest recollection if clinically indicated. [facility] Vital Signs Date Time Vital Sign Value Performing Clinician Facility 08-05-2024 11:50-0400 Body temperature 97.7 [degF] DR MAGED PEDRO MD [facility] 08-05-2024 11:50-0400 Diastolic Blood Pressure Non-Invasive 89 mm[Hg] DR MAGED PEDRO MD [facility] 08-05-2024 11:50-0400 Heart rate 78 /min DR MAGED PEDRO MD [facility] 08-05-2024 11:50-0400 Reason For Taking VItal Signs DR MAGED PEDRO MD [facility] 08-05-2024 11:50-0400 Respiratory rate 18 /min DR MAGED PEDRO MD [facility] 08-05-2024 11:50-0400 Systolic Blood Pressure Non-Invasive 159 mm[Hg] DR MAGED PEDRO MD [facility] 08-05-2024 07:10-0400 Body temperature 97.7 [degF] DR MAGED PEDRO MD [facility] 08-05-2024 07:10-0400 Diastolic Blood Pressure Non-Invasive 76 mm[Hg] DR MAGED PEDRO MD [facility] 08-05-2024 07:10-0400 Heart rate 79 /min DR MAGED PEDRO MD [facility] 08-05-2024 07:10-0400 Respiratory rate 16 /min DR MAGED PEDRO MD [facility] 08-05-2024 07:10-0400 Systolic Blood Pressure Non-Invasive 126 mm[Hg] DR MAGED PEDRO MD [facility] 08-05-2024 04:21-0400 Body temperature 97.88 [degF] DR MAGED PEDRO MD [facility] 08-05-2024 04:21-0400 Diastolic Blood Pressure Non-Invasive 72 mm[Hg] DR MAGED PEDRO MD [facility] 08-05-2024 04:21-0400 Heart rate 58 /min DR MAGED PEDRO MD [facility] 08-05-2024 04:21-0400 Respiratory rate 16 /min DR MAGED PEDRO MD [facility] 08-05-2024 04:21-0400 Systolic Blood Pressure Non-Invasive 107 mm[Hg] DR MAGED PEDRO MD [facility] 08-04-2024 22:53-0400 Heart rate 78 /min DR MAGED PEDRO MD [facility] 08-04-2024 21:20-0400 Heart rate 78 /min DR MAGED PEDRO MD [facility] 08-04-2024 14:10-0400 Heart rate 70 /min DR MAGED PEDRO MD [facility] 08-04-2024 13:56-0400 Body height [address] MAGED PEDRO MD [facility] 08-04-2024 13:56-0400 Body weight [address] MAGED PEDRO MD [facility] 08-04-2024 13:56-0400 Body weight 23.42 kg/m2 DR MAGED PEDRO MD [facility] 08-04-2024 12:40-0400 Body temperature 96.8 [degF] DR MAGED PEDRO MD [facility] 08-04-2024 12:35-0400 Respiratory Rate - Anes 0 br/min DR MAGED PEDRO MD [facility] 08-04-2024 12:30-0400 Respiratory Rate - Anes 12 br/min DR MAGED PEDRO MD [facility] 08-04-2024 12:25-0400 Respiratory Rate - Anes 12 br/min DR MAGED PEDRO MD [facility] 08-04-2024 09:11-0400 Body height [address] MAGED PEDRO MD [facility] 08-04-2024 09:11-0400 Body temperature 97.16 [degF] DR MAGED PEDRO MD [facility] 08-04-2024 09:11-0400 Body weight [address] MAGED PEDRO MD [facility] 07-14-2024 12:52-0400 Blood Pressure Cuff Size DR MAGED PEDRO MD [facility] 07-14-2024 12:52-[address] MAGED PEDRO MD [facility] 07-14-2024 12:52-[address] MAGED Jimenez [facility] 07-14-2024 12:52-0400 Body height [address] MAGED PEDRO MD [facility] 07-14-2024 12:52-0400 Body weight 57.[address] MAGED PEDRO MD [facility] 07-14-2024 12:52-0400 Body weight 24.06 kg/m2 DR MAGED PEDRO MD [facility] 07-14-2024 12:52-0400 Diastolic Blood Pressure Non-Invasive 88 mm[Hg] DR MAGED PEDRO MD [facility] 07-14-2024 12:52-0400 Heart rate 67 /min DR MAGED PEDRO MD [facility] 07-14-2024 12:52-0400 Systolic Blood Pressure Non-Invasive 167 mm[Hg] DR MAGED PEDRO MD [facility] 06-17-2024 13:58-0400 Body height 155 cm Jaswinder Masci DO Work Phone: [facility] 06-17-2024 13:58-0400 Body mass index (BMI) [Ratio] 23.88 kg/m2 Jaswinder Masci DO Work Phone: [facility] 06-17-2024 13:58-0400 Body temperature 96.69 [degF] Jaswinder Masci DO Work Phone: [facility] 06-17-2024 13:58-0400 Body weight 57.38 kg Jaswinder Masci DO Work Phone: [facility] 06-17-2024 13:58-0400 Diastolic blood pressure 73 mm[Hg] Jaswinder Masci DO Work Phone: [facility] 06-17-2024 13:58-0400 Heart rate 71 /min Jaswinder Masci DO Work Phone: [facility] 06-17-2024 13:58-0400 SaO2% (BldA) [Mass fraction] 99 % Jaswinder Masci DO Work Phone: [facility] 06-17-2024 13:58-0400 Systolic blood pressure 127 mm[Hg] Jaswinder Masci DO Work Phone: [facility] 04-30-2024 14:34-0400 Blood Pressure Cuff Size CRISTIAN SOTO MD [facility] 04-30-2024 14:34-0400 Blood Pressure Location CRISTIAN SOTO MD [facility] 04-30-2024 14:34-0400 Blood Pressure Method CRISTIAN SOTO MD [facility] 04-30-2024 14:34-0400 Body temperature 98.06 [degF] CRISTIAN SOTO MD [facility] 04-30-2024 14:34-0400 Diastolic Blood Pressure Non-Invasive 70 mm[Hg] CRISTIAN SOTO MD [facility] 04-30-2024 14:34-0400 Heart rate 89 /min CRISTIAN SOTO MD [facility] 04-30-2024 14:34-0400 Reason For Taking VItal Signs CRISTIAN SOTO MD [facility] 04-30-2024 14:34-0400 Systolic Blood Pressure Non-Invasive 180 mm[Hg] CRISTIAN SOTO MD [facility] 04-30-2024 09:49-0400 Body temperature 97.88 [degF] CRISTIAN SOTO MD [facility] 04-30-2024 09:49-0400 Diastolic Blood Pressure Non-Invasive 82 mm[Hg] CRISTIAN SOTO MD [facility] 04-30-2024 09:49-0400 Heart rate 81 /min CRISTIAN SOTO MD [facility] 04-30-2024 09:49-0400 Reason For Taking VItal Signs CRISTIAN SOTO MD [facility] 04-30-2024 09:49-0400 Systolic Blood Pressure Non-Invasive 162 mm[Hg] CRISTIAN SOTO MD [facility] 04-30-2024 09:30-0400 Blood Pressure Cuff Size CRISTIAN SOTO MD [facility] 04-30-2024 09:30-0400 Blood Pressure Location CRISTIAN SOTO MD [address] [place] [address] 04-30-2024 09:30-0400 Blood Pressure Method CRISTIAN SOTO MD [address] [place] [address] 04-30-2024 09:30-0400 Diastolic Blood Pressure Non-Invasive 82 mm[Hg] CRISTIAN SOTO MD [address] [place] [address] 04-30-2024 09:30-0400 Systolic Blood Pressure Non-Invasive 162 mm[Hg] CRISTIAN SOTO MD [address] [place] [address] 04-30-2024 07:41-0400 Blood Pressure Cuff Size CRISTIAN SOTO MD [address] [place] [address] 04-30-2024 07:41-0400 Blood Pressure Location CRISTIAN SOTO MD [address] [place] [address] 04-30-2024 07:41-0400 Blood Pressure Method CRISTIAN SOTO MD [facility] 04-30-2024 06:40-0400 Body temperature 97.88 [degF] CRISTIAN SOTO MD [address] [place] [address] 04-30-2024 06:40-0400 Heart rate 81 /min CRISTIAN SOTO MD [facility] 04-30-2024 06:40-0400 Reason For Taking VItal Signs CRISTIAN SOTO MD [address] [place] [address] 04-29-2024 21:29-0400 Heart rate 72 /min CRISTIAN SOTO MD [address] [place] [address] 04-29-2024 21:29-0400 Respiratory rate 18 /min CRISTIAN SOTO MD [facility] 04-29-2024 14:51-0400 Body temperature 97.16 [degF] CRISTIAN SOTO MD [facility] 04-29-2024 14:51-0400 Respiratory rate 20 /min CRISTIAN SOTO MD [facility] 04-29-2024 07:06-0400 Respiratory rate 18 /min CRISTIAN SOTO MD [address] [place] [address] 04-26-2024 17:22-0400 Heart rate 73 /min CRISTIAN SOTO MD [address] [place] [address] 04-26-2024 11:58-0400 Heart rate 72 /min CRISTIAN SOTO MD [address] [place] [address] 04-26-2024 09:41-0400 Heart rate 70 /min CRISTIAN SOTO MD [address] [place] [address] 04-25-2024 15:23-0400 Body temperature 96.26 [degF] CRISTIAN SOTO MD [address] [place] [address] 04-25-2024 15:23-0400 Signs/Symptoms Transfusion Reaction CRISTIAN SOTO MD [address] [place] [address] 04-25-2024 14:35-0400 Body temperature 95 [degF] CRISTIAN SOTO MD [facility] 04-25-2024 14:35-0400 Diastolic blood pressure 58 mm[Hg] CRISTIAN SOTO MD [address] [place] [address] 04-25-2024 14:35-0400 Systolic blood pressure 116 mm[Hg] CRISTIAN SOTO MD [address] [place] [address] 04-25-2024 14:23-0400 Signs/Symptoms Transfusion Reaction No CRISTIAN SOTO MD [address] [place] [address] 04-25-2024 14:13-0400 Signs/Symptoms Transfusion Reaction CRISTIAN SOTO MD [facility] 04-25-2024 12:13-0400 Body temperature 95.18 [degF] CRISTIAN SOTO MD [facility] 04-24-2024 10:42-0400 Body temperature 97.7 [degF] CRISTIAN SOTO MD [facility] 04-24-2024 04:14-0400 Body height 155 cm CRISTIAN SOTO MD [facility] 04-24-2024 04:14-0400 Body weight 65.6 kg CRISTIAN SOTO MD [facility] 04-24-2024 04:14-0400 Body weight 27.3 kg/m2 CRISTIAN SOTO MD [facility] 04-24-2024 03:00-0400 Diastolic Blood Pressure Non-Invasive 84 mm[Hg] DR KINGSTON VELASCO MD [facility] 04-24-2024 03:00-0400 Respiratory rate 24 /min DR KINGSTON VELASCO MD [facility] 04-24-2024 03:00-0400 Systolic Blood Pressure Non-Invasive 171 mm[Hg] DR KINGSTON VELASCO MD [facility] 04-24-2024 02:55-0400 Respiratory rate 26 /min DR KINGSTON VELASCO MD [facility] 04-24-2024 02:28-0400 Blood Pressure Cuff Size DR KINGSTON VELASCO MD [facility] 04-24-2024 02:28-[address] KINGSTON VELASCO MD [facility] 04-24-2024 02:28-[address] KINGSTON VELASCO MD [facility] 04-24-2024 02:28-0400 Diastolic Blood Pressure Non-Invasive 95 mm[Hg] DR KINGSTON VELASCO MD [facility] 04-24-2024 02:28-0400 Heart rate 89 /min DR KINGSTON VELASCO MD [facility] 04-24-2024 02:28-0400 Respiratory rate 20 /min DR KINGSTON VELASCO MD [facility] 04-24-2024 02:28-0400 Systolic Blood Pressure Non-Invasive 178 mm[Hg] DR KINGSTON VELASCO MD [facility] 04-24-2024 01:11-0400 Blood Pressure Cuff Size DR KINGSTON VELASCO MD [facility] 04-24-2024 01:11-[address] KINGSTON VELASCO MD [facility] 04-24-2024 01:11-[address] KINGSTON VELASCO MD [facility] 04-24-2024 01:11-0400 Diastolic Blood Pressure Non-Invasive 77 mm[Hg] DR KINGSTON VELASCO MD [facility] 04-24-2024 01:11-0400 Heart rate 90 /min DR KINGSTON VELASCO MD [facility] 04-24-2024 01:11-0400 Systolic Blood Pressure Non-Invasive 157 mm[Hg] DR KINGSTON VELASCO MD [facility] 04-23-2024 20:03-0400 Body height [address] KINGSTON VELASCO MD [facility] 04-23-2024 20:03-0400 Body temperature 98.24 [degF] DR KINGSTON VELASCO MD [facility] 04-23-2024 20:03-0400 Body weight [address] KINGSTON VELASCO MD [facility] 04-21-2024 11:19-0400 Body temperature 98.24 [degF] MEGAN MIRAMONTES MANAGER [employer] TE[employer] INSTRUCTOR [facility] 04-21-2024 11:19-0400 Diastolic Blood Pressure Non-Invasive 88 mm[Hg] MEGAN MIRAMONTES MANAGER [employer] TE[employer] INSTRUCTOR [facility] 04-21-2024 11:19-0400 Heart rate 75 /min MEGAN MIRAMONTES MANAGER [employer]AL TECH INSTRUCTOR [facility] 04-21-2024 11:19-0400 Respiratory rate 20 /min MEGAN MIRAMONTES MANAGER [employer] TECH INSTRUCTOR [facility] 04-21-2024 11:19-0400 Systolic Blood Pressure Non-Invasive 130 mm[Hg] MEGAN MIRAMONTES MANAGER [employer]AL TECH INSTRUCTOR [facility] 04-21-2024 07:44-0400 Blood Pressure Cuff Size MEGAN MIRAMONTES MANAGER [employer]AL TECH INSTRUCTOR [facility] 04-21-2024 07:44-0400 Blood Pressure Location MEGAN MIRAMONTES MANAGER [employer]AL TECH INSTRUCTOR [facility] 04-21-2024 07:44-0400 Blood Pressure Method MEGAN MIRAMONTES MANAGER [employer] TE[employer] INSTRUCTOR [facility] 04-21-2024 07:44-0400 Diastolic Blood Pressure Non-Invasive 78 mm[Hg] MEGAN MIRAMONTES MANAGER [employer] TE[employer] INSTRUCTOR [facility] 04-21-2024 07:44-0400 Systolic Blood Pressure Non-Invasive 124 mm[Hg] MEGAN MIRAMONTES MANAGER [employer] TE[employer] INSTRUCTOR [facility] 04-21-2024 07:30-0400 Body temperature 98.24 [degF] MEGAN MIRAMONTES MANAGER [employer] TE[employer] INSTRUCTOR [facility] 04-21-2024 07:30-0400 Diastolic Blood Pressure Non-Invasive 65 mm[Hg] MEGAN MIRAMONTES MANAGER [employer] TE[employer] INSTRUCTOR [facility] 04-21-2024 07:30-0400 Heart rate 78 /min MEGAN MIRAMONTES MANAGER [employer] TE[employer] INSTRUCTOR [facility] 04-21-2024 07:30-0400 Respiratory rate 20 /min EMGAN MIRAMONTES MANAGER [employer] TE[employer] INSTRUCTOR [facility] 04-21-2024 07:30-0400 Systolic Blood Pressure Non-Invasive 99 mm[Hg] MEGAN MIRAMONTES MANAGER [employer] TE[employer] INSTRUCTOR [facility] 04-21-2024 03:30-0400 Body temperature 97.7 [degF] MEGAN MIRAMONTES MANAGER [employer] TE[employer] INSTRUCTOR [facility] 04-21-2024 03:30-0400 Heart rate 76 /min MEGAN MIRAMONTES MANAGER [employer] TE[employer] INSTRUCTOR [facility] 04-21-2024 03:30-0400 Reason For Taking VItal Signs MEGAN MIRAMONTES MANAGER [employer] TE[employer] INSTRUCTOR [facility] 04-21-2024 03:30-0400 Respiratory rate 20 /min MEGAN MIRAMONTES MANAGER [employer]AL TE[employer] INSTRUCTOR [facility] 04-20-2024 23:13-0400 Heart rate 69 /min MEGAN MIRAMONTES MANAGER [employer] TE[employer] INSTRUCTOR [facility] 04-20-2024 23:13-0400 Reason For Taking VItal Signs MEGAN MIRAMONTES MANAGER [employer] TE[employer] INSTRUCTOR [facility] 04-20-2024 19:32-0400 Blood Pressure Cuff Size MEGAN MIRAMONTES MANAGER [employer]AL TE[employer] INSTRUCTOR [facility] 04-20-2024 19:32-0400 Blood Pressure Location MEGAN MIRAMONTES MANAGER [employer]AL TECH INSTRUCTOR [facility] 04-20-2024 19:32-0400 Blood Pressure Method MEGAN MIRAMONTES MANAGER [employer] TE[employer] INSTRUCTOR [facility] 04-20-2024 19:24-0400 Reason For Taking VItal Signs MEGAN MIRAMONTES MANAGER [employer] TE[employer] INSTRUCTOR [facility] 04-20-2024 03:34-0400 Heart rate 85 /min MEGAN MIRAMONTES MANAGER [employer] TE[employer] INSTRUCTOR [facility] 04-20-2024 00:46-0400 Body height 155 cm MEGAN MIRAMONTES MANAGER [employer] TE[employer] INSTRUCTOR [facility] 04-20-2024 00:46-0400 Body weight 61.9 kg MEGAN MIRAMONTES MANAGER [employer] TE[employer] INSTRUCTOR [facility] 04-20-2024 00:46-0400 Body weight 25.76 kg/m2 MEGAN MIRAMONTES MANAGER [employer] TE[employer] INSTRUCTOR [facility] 04-20-2024 00:34-0400 Heart rate 86 /min MEGAN MIRAMONTES MANAGER [employer]AL TE[employer] INSTRUCTOR [facility] 04-19-2024 23:40-0400 Heart rate 91 /min MEGAN MIRAMONTES MANAGER [employer] TE[employer] INSTRUCTOR [facility] 04-19-2024 22:20-0400 Heart rate 83 /min MEGAN MIRAMONTES MANAGER [employer] TE[employer] INSTRUCTOR [facility] 06-25-2024 16:43-0400 Body height [address] TAE ALANIS MD [facility] 04-14-2024 16:43-0400 Body temperature 96.8 [degF] DR TAE ALANIS MD [facility] 04-14-2024 16:43-0400 Body weight [address] TAE ALANIS MD [facility] 04-14-2024 16:43-0400 Diastolic Blood Pressure Non-Invasive 66 mm[Hg] DR TAE ALANIS MD [facility] 04-14-2024 16:43-0400 Heart rate 75 /min DR TAE ALANIS MD [facility] 04-14-2024 16:43-0400 Respiratory rate 18 /min DR TAE ALANIS MD [facility] 04-14-2024 16:43-0400 Systolic Blood Pressure Non-Invasive 106 mm[Hg] DR TAE ALANIS MD [facility] 03-03-2024 16:40-0400 Body height 162.6 cm ZULY MASTERSROSENDA DO [facility] 03-03-2024 16:40-0400 Body temperature 97.16 [degF] ZULY FROMRUTH ANNT DO [facility] 03-03-2024 16:40-0400 Body weight 62 kg ZULY FROMRUTH ANNT DO [facility] 03-03-2024 16:40-0400 Diastolic Blood Pressure Non-Invasive 74 mm[Hg] ZULY FROMMELT DO [facility] 03-03-2024 16:40-0400 Heart rate 111 /min ZULY CASH DO [facility] 03-03-2024 16:40-0400 Respiratory rate 20 /min [facility] 03-03-2024 16:40-0400 Systolic Blood Pressure Non-Invasive 120 mm[Hg] [facility] 05-29-2022 08:38-0400 Diastolic blood pressure 74 mm[Hg] DR APRIL PABON MD [facility] 05-29-2022 08:38-0400 Heart rate 60 /min DR APRIL PABON MD [facility] 05-29-2022 08:38-0400 Mean blood pressure 90 mm[Hg] DR APRIL PABON MD [facility] 05-29-2022 08:38-0400 Respiratory rate 16 /min DR APRIL PABON MD [facility] 05-29-2022 08:38-0400 Systolic blood pressure 122 mm[Hg] DR APRIL PABON MD [facility] Encounters Encounter Date Encounter Type Care Provider Facility Start: 08-06-2024 ambulatory LUIS ELLIOTT MANAGER [employer] TECH INSTRUCTOR Fa cility:[facility] Start: 08-04-2024 End: 08-05-[address] MAGED PEDRO MD Facility:[facility] Start: 08-04-2024 End: 08-05-[address] MAGED PEDRO MD [facility] Start: 07-14-2024 End: 07-14-[address] MAGED PEDRO MD [facility] Start: 07-14-2024 End: 07-14-[address] MAGED PEDRO MD Facility:[facility] Start: 06-25-2024 End: 08-04-2024 Telephone encounter Jaswinder Schmidt DO Work Phone: Hematology/Oncology Comment on above: Follow Up Start: 06-17-2024 End: 06-17-2024 ambulatory Jaswinder Schmidt DO Work Phone: Hematology/Oncology Comment on above: Single subsegmental pulmonary embolism without acute cor pulmonale (HCC) (Primary Dx) Start: 06-17-2024 End: 06-17-2024 Patient encounter procedure Jaswinder Schmidt DO Work Phone: Hematology/Oncology Start: 06-02-2024 End: 06-02-2024 ambulatory VELMA REYNOLDS MANAGER [employer]AL TECH INSTRUCTOR Facility:[facility] Start: 05-16-2024 End: 05-20-2024 ambulatory LUIS ELLIOTT MANAGER [employer]AL TECH INSTRUCTOR Facility:[facility] Start: 05-16-2024 End: 05-20-[address] TATIANA CASEY DO [facility] Start: 05-01-2024 End: 06-02-2024 ambulatory LUIS ELLIOTT MANAGER [employer]AL TECH INSTRUCTOR Facility:[facility] Start: 04-24-2024 End: 04-30-2024 Evaluation and management of inpatient CRISTIAN SOTO MD [facility] Start: 04-23-2024 End: 04-24-2024 Emergency department patient visit DR KINGSTON VELASCO MD [facility] Start: 04-19-2024 End: 04-21-2024 Evaluation and management of inpatient MEGAN MIRAMONTES MANAGER [employer]AL TECH INSTRUCTOR [facility] Start: 04-16-2024 End: 04-16-2024 ambulatory LUIS ELLIOTT MANAGER [employer]AL TECH INSTRUCTOR Facility:[facility] Start: 04-14-2024 End: 04-14-2024 Emergency department patient visit DR TAE ALANIS MD [facility] Start: 03-03-2024 End: 03-03-2024 Emergency department patient visit ZULY CASH DO [facility] Start: 02-21-2024 End: 02-21-2024 ambulatory LUIS BALTES MANAGER [employer]AL TECH INSTRUCTOR Facility:[facility] Start: 02-21-2024 End: 02-21-2024 Patient encounter procedure LUIS BALTES MANAGER [employer]USTRIAL TECH INSTRUCTOR [facility] Start: 02-17-2024 End: 02-17-2024 ambulatory LUIS BALTES MANAGER [employer]RIAL TECH INSTRUCTOR Facility:[facility] Start: 02-17-2024 End: 02-17-2024 Patient encounter procedure LUIS BALTES MANAGER [employer]USTRIAL TECH INSTRUCTOR [facility] Start: 08-29-2023 End: 08-29-2023 ambulatory LUIS BALTES MANAGER [employer]INDUSTRIAL TECH INSTRUCTOR Facility:[facility] Start: 08-01-2023 End: 08-01-2023 ambulatory LUIS BALTES MANAGER [employer]ONE[employer]INDUSTRIAL TECH INSTRUCTOR Facility:[facility] Start: 08-01-2023 End: 08-01-2023 Patient encounter procedure LUIS BALTES MANAGER MONE[employer]INDUSTRIAL TECH INSTRUCTOR [facility] Start: 2023 End: 2023 ambulatory LUIS BALTES MANAGER MONEY-INDUSTRIAL TECH INSTRUCTOR Facility:B Start: 2023 End: 2023 Patient encounter procedure LUIS BALTES MANAGER [employer]ONE[employer]INDUSTRIAL TECH INSTRUCTOR [facility] Start: 05-29-2023 End: 06-02-2023 Outreach Lab LUIS BALTES MANAGER MONEY-INDUSTRIAL TECH INSTRUCTOR [facility] Start: 09-10-2022 End: 09-10-2022 Patient encounter procedure LUIS BALTES MANAGER MONEY-INDUSTRIAL TECH INSTRUCTOR [facility] Start: 08-14-2022 End: 08-14-2022 Patient encounter procedure VELMA REYNOLDS MANAGER MONEY-INDUSTRIAL TECH INSTRUCTOR [facility] Start: 05-29-2022 End: 05-29-[address] APRIL PABON MD [facility] Start: 05-24-2022 End: 05-24-2022 Patient encounter procedure LUIS TORRESFAITH MANAGER MONEY-INDUSTRIAL TECH INSTRUCTOR [facility] Start: 05-02-2022 End: 05-02-2022 Patient encounter procedure LUIS TORRESFAITH MANAGER MONEY-INDUSTRIAL TECH INSTRUCTOR [facility] Start: 05-01-2022 End: 05-01-2022 Patient encounter procedure LUIS EARL MANAGER MONEY-INDUSTRIAL TECH INSTRUCTOR [facility] Start: 01-31-2022 End: 02-04-2022 Outreach Lab LUIS ELLIOTT MANAGER MONEY-INDUSTRIAL TECH INSTRUCTOR [facility] Start: 01-31-2022 End: 01-31-2022 Patient encounter procedure LUIS TORRESFAITH MANAGER MONEY-INDUSTRIAL TECH INSTRUCTOR [facility] Procedures Date Procedure Procedure Detail Performing Clinician Start: 08-04-2024 Total replacement of left hip joint DR MAGED PEDRO MD Start: 03-11-2023 Cardiac catheterization LUIS ELLIOTT MANAGER MONEY-INDUSTRIAL TECH INSTRUCTOR Start: 03-11-2023 Placement of stent LUIS ELLIOTT MANAGER MONEY-INDUSTRIAL TECH INSTRUCTOR Start: 01-04-2020 Endarterectomy LUIS CUEVAS MANAGER MONEY-INDUSTRIAL TECH INSTRUCTOR Start: 02-06-2017 Nerve conduction study LUIS ELLIOTT MANAGER MONEYARI Comment on above: [facility];abn Start: 12-12-2016 CT angiography of ne ck vessels LUIS ELLIOTT MANAGER MONEY-Glythera Comment on above: [facility] Start: 11-14-2016 Duplex ultrasound (qualifier value) LUIS ELLIOTT MANAGER MONEYARI Comment on above: abn Start: 10-21-2007 Lithotripsy LUIS Patterson MANAGER MONEYARI Start: 09-06-2000 Lipid 1996 panel - S rach or Plasma Jaswinder Schmidt DO Work Phone: Abdominal hysterectomy LUIS ELLIOTT MANAGER MONEYARI Carotid artery struc ture (body structure) LUIS ELLIOTT MANAGER MONEYARI Comment on above: left side x2 section LUIS ELLIOTT MANAGER MONEYARI Cholecystectomy LUIS ELLIOTT MANAGER MONEYARI Colonoscopy LUIS ELLIOTT APR NARI Coronary artery bypa ss graft CABG - Coronary artery bypass graft( Confirmed ) 1 LUIS ELLIOTT MANAGER MONEYARI Comment on above: prior to CABG, pt st awads she had multiple stents placed for CAD. Remains on plavix for stent/shasta patency Coronary artery bypa ss graft x 1 LUIS ELLIOTT MANAGER MONEYARI Coronary stent site (finding) LUIS ELLIOTT MANAGER MONEYARI History of carotid endarterectomy History of carotid endarterectomy( Confirmed ) LUIS ELLIOTT MANAGER MONEYARI History of coronary artery bypass grafting Hx of CABG( Confirmed ) LUIS ELLIOTT MANAGER MONEYARI History of percutane ous transluminal coronary angioplasty History of PTCA( Confirmed ) LUIS ELLIOTT MANAGER MONEYARI History of percutane ous transluminal coronary angioplasty CRISTIAN SOTO MD Malcolm ORO Plan of Treatment Date Care Activity Detail Author Start: 03-03-2034 Urine microalbumin profile DTaP,Tdap,Td Vaccine (2 - Td or Tdap) [facility] Start: 2028 RSV Vaccine (1 - 1-d ose 75+ series) RSV Vaccine (1 - 1-dose 75+ series) [facility] Start: 06-17-2025 BP Controlled (<130/80) BP Controlle d (<130/80) [facility] Start: 12-18-2024 End: 12-18-2024 ambulatory 12/18/2024 2:30 PM EST Visit (SP) Office Hematology/Oncology [address] [place] [address] Jaswinder Schmidt DO [address] [address] 6 MO OV* Hematology/Oncology Comment on above: 6 MO OV* Start: 06-21-2024 Covid-19 Vaccine ( season) Covid-19 Vaccine ( season) [facility] Start: 06-21-2024 Influenza vaccination Influenza Vacc ine (#1) [facility] Start: 06-17-2024 End: 09-16-[address] [facility] Work Phone: Comment on above: Expected: 06/17/2024 , Expires: 09/16/2024 Start: 10-21-2023 Advance Directive Discussion Advance Directive Discussion [facility] Start: 06-21-2023 Covid-19 Vaccine ( season) Covid-19 Vaccine ( season) [facility] Start: 2023 Pneumococcal Vaccine : 65+ (3 of 3 - PPSV23 or PCV20) Pneumococcal Vaccine: 65+ (3 of 3 - PPSV23 or PCV20) [facility] Start: 01-04-2023 Diabetes Screening Diabetes Screenin g [facility] Start: 2018 Screening for osteoporosis Bone Density Screening [facility] Start: 06-09-2016 Shingrix Vaccine (2 of 3) Shingrix Vaccine (2 of 3) [facility] Start: 2013 RSV Vaccine (1 - 1-d ose 60+ series) RSV Vaccine (1 - 1-dose 60+ series) [facility] Start: 09-06-2005 Lipid panel Lipid Screening [facility] Start: 2003 Screening for malign ant neoplasm of lung Lung Cancer Screening [facility] Start: 09-06-2001 Hepatitis B surface antibody level LDL Cholesterol [facility] Start: 1998 Screening for malign ant neoplasm of colon [facility] Start: 1993 Screening for malign ant neoplasm of breast Mammogram Screening [facility] Start: 1971 Annual PCP Team Commercial Correspondent lili Disease Visit Annual PCP Team Chronic Disease Visit [facility] Start: 1971 Anxiety Screening Anxiety Screening [facility] Start: 1971 Depression Screening Depression Scre ening [facility] Start: 1971 Hepatitis C screening Hepatitis C Sc [facility] Immunizations Immunization Date Immunization Notes Care Provider Fa roshan 07-15-2024 influenza virus vacc ine, unspecified formulation DR MAGED PEDRO MD [facility] 03-03-2024 tetanus toxoid, redu vani diphtheria toxoid, and acellular pertussis vaccine, adsorbed ZULY FROMROSENDA DO [facility] 07-07-2023 influenza virus vacc ine, unspecified formulation LUIS ELLIOTT MANAGER MONEY-INDUSTRIAL TECH INSTRUCTOR [facility] 07-10-2022 influenza virus vacc ine, unspecified formulation VELMA REYNOLDS MANAGER MONEY-INDUSTRIAL TECH INSTRUCTOR [facility] 07-31-2021 SARS-CoV-2 mRNA (tozinameran) vaccine LUIS ELLIOTT MANAGER MONEY-INDUSTRIAL TECH INSTRUCTOR [facility] 11-22-2020 SARS-CoV-2 mRNA (tozinameran) vaccine LUIS ELLIOTT MANAGER MONEY-INDUSTRIAL TECH INSTRUCTOR [facility] 11-01-2020 SARS-CoV-2 mRNA (topravinnameran) vaccine LUIS ELLIOTT MANAGER MONEY-INDUSTRIAL TECH INSTRUCTOR [facility] 07-08-2020 influenza virus vacc ine, unspecified formulation LUIS ELLIOTT MANAGER MONEY-INDUSTRIAL TECH INSTRUCTOR [facility] 06-15-2019 influenza virus vacc ine, unspecified formulation LUIS BALFAITH MANAGER MONEY-INDUSTRIAL TECH INSTRUCTOR [facility] 2018 influenza virus vacc ine, unspecified formulation LUIS ELLIOTT MANAGER MONEY-INDUSTRIAL TECH INSTRUCTOR [facility] 2018 pneumococcal conjuga te vaccine, 13 valent LUIS ELLIOTT MANAGER MONEY-INDUSTRIAL TECH INSTRUCTOR [facility] 06-28-2017 influenza virus vacc ine, unspecified formulation LUIS ELLIOTT MANAGER MONEY-INDUSTRIAL TECH INSTRUCTOR [facility] 08-10-2016 influenza virus vacc ine, unspecified formulation LUIS ELLIOTT MANAGER MONEY-INDUSTRIAL TECH INSTRUCTOR [facility] 04-14-2016 zoster vaccine, live LUIS BA LTES MANAGER MONEY-INDUSTRIAL TECH INSTRUCTOR [facility] 10-21-2014 zoster vaccine, live LUIS BA LTES MANAGER MONEY-INDUSTRIAL TECH INSTRUCTOR [facility] 09-19-2014 zoster vaccine, live LUIS BA LTES MANAGER MONEY-INDUSTRIAL TECH INSTRUCTOR [facility] 10-21-2012 pneumococcal conjuga te vaccine, 13 valent LUIS ELLIOTT MANAGER MONEY-INDUSTRIAL TECH INSTRUCTOR [facility] 10-21-2012 pneumococcal polysaccharide vaccine, 23 valent LUIS ELLIOTT MANAGER MONEY-INDUSTRIAL TECH INSTRUCTOR [facility] 09-19-2012 pneumococcal polysaccharide vaccine, 23 valent LUIS ELLIOTT MANAGER MONEY-INDUSTRIAL TECH INSTRUCTOR [facility] Payers Date Payer Category Payer Medicare [id number] 2019 Medicare UHC AARP MEDICAR E [facility] MEDICARE PPO [id number] 2019-Present [phone] [address] [address] [place] [address] PPO [id number] 2019 Private Health Insurance [id number] 1953 Unknown [id number] .62 1955 Unknown [id number] .1953 Unknown [id number] [id number] .627 1953 Unknown [id number] 2.840.1.788984.3.579.2 .62 1953 Unknown [id number] 2.840.1.312529.3.579.2 .627 1953 Unknown [id number] 2.840.1.699053.3.579.2 .62 1953 Unknown [id number] 2.16.840.1.115447.3.579.2 .627 1953 Unknown [id number] 2.16.840.1.416713.3.579.2 .627 1953 Unknown [id number] 2.16.840.1.013145.3.579.2 .627 1953 Unknown [id number] 2.16.840.1.676557.3.579.2 .627 1953 Unknown [id number] 2.16.840.1.526113.3.579.2 .1953 Unknown [id number] 2.16.840.1.566815.3.579.2 .7 1953 Unknown [id number] 2.16.840.1.517111.3.579.2 .1955 Unknown [id number] 2.16.840.1.928862.3.579.2 .7 1953 Unknown [id number] 2.16.840.1.165390.3.579.2 .627 Social History Date Type Detail Facility Start: 07-17-2019 End: 12-06-2022 Tobacco smoking status Ex-smoker (finding) [facility] Comment on above: Quit in 2011 Sex Assigned At Female [facility] Start: 10-21-1980 End: 10-21-2010 History of tobacco use Current smoker [facility] Start: 10-21-1980 End: 10-21-2010 History of tobacco use Cigarette Smoker [facility] Start: 12-04-2019 End: 06-17-2024 Cigarettes smoked current (pack per day) - Reported 1 [facility] Work Phone: Start: 12-04-2019 Tobacco use and exposure Smokeless tobacco non-user [facility] Start: 06-17-2024 Alcoholic beverage intake Current non-drinker of alcohol (finding) [facility] Start: 01-05-2020 End: 06-17-[address] [facility] Work Phone: How hard is it for y ou to pay for the very basics like food, housing, medical care, and heating Not hard at all [facility] Work Phone: (I/We) worried wheth er (my/our) food would run out before (I/we) got money to buy more. Never true [facility] Start: 1955 Sex assigned at Not on file [facility] Medical Equipment Procedure Code Equipment Code Equipment Origin al Text Equipment Identifier Dates Graft 4-7mm Standard Directional Driller [place] 40cm Vascular Line Sterile - [id number] Start: 01-04-2020 Patch Bovine Pericardial Vascular Duravess 8x8 - [id number] Start: 01-04-2020 Comment on above: Description: bovine pericardial patch Functional Status Date Assessment Result Facility 08-05-2024 Functional Status Nurse Smiley medrano q2hrs Performed Other: 7a-12p [facility] 08-05-2024 Functional Status Independent [facility] 08-05-2024 Functional Status Identified as high risk, Fall ID band on, Room located near nursing station, Door open, Non-Slip footwear [facility] 08-05-2024 Functional Status [facility] 08-05-2024 Functional Status [facility] 08-05-2024 Functional Status [facility] 08-04-2024 Functional Status [facility] 08-04-2024 Functional Status [facility] 08-04-2024 Functional Status Single level home [facility] 08-04-2024 Functional Status [facility] 08-04-2024 Functional Status Maintained [facility] 07-14-2024 Functional Status Sensory Deficits None A [facility] 04-30-2024 Functional Status Room check performed [facility] 04-30-2024 Functional Status Lunch Percent [address] [facility] 04-30-2024 Functional Status Shahla Manuel spital [...] Status Assistive Equi pment elevated on pillows [facility] 04-24-2024 Functional Status Independent [facility] 04-24-[facility] Functional Status Single level home [facility] 04-24-2024 Functional Status Sensory Deficits None A [facility] 04-23-2024 Functional Status Awake, Lights dimmed, Resting [facility] 04-21-2024 Functional Status Nurse Smiley medrano q2hrs Performed Other: 7AM - 1PM [facility] 04-21-2024 Functional Status bilateral knee high removed/off [facility] 04-21-2024 Functional Status Identified as high risk, Bed alert on, Non-Slip footwear, Room check performed [facility] 04-21-2024 Functional Status Shahla [facility] 04-21-2024 Functional Status Shahla [facility] 04-20-2024 Functional Status Shahla [facility] 04-20-2024 Functional Status Shahla arellano [facility] 04-20-2024 Functional Status 25 Shahla arellano [facility] 04-20-2024 Functional Status Single level home [facility] 04-20-2024 Functional Status Shahla arellano [facility] 04-20-2024 Functional Status Shahla arellano [facility] 04-20-2024 Functional Status Shahla arellano [facility] 04-20-2024 Functional Status Sensory Deficits None [facility] 03-03-2024 Functional Status Independent Shahla arellano [facility] 05-29-2022 Functional Status Independent Shahla arellano Mental Status Date Assessment Result Facility 08-05-2024 [facility] 08-04-2024 Mental Status [facility] 08-04-2024 Mental Status [facility] 04-30-2024 Mental Status Orientation Oriented x 4 [facility] 04-29-2024 Mental Status [facility] 04-29-2024 Mental Status [facility] 04-28-2024 Mental Status Orientation Asse ssment Oriented x [address] [facility] 04-28-2024 Mental Status [facility] 04-27-2024 Mental Status [facility] 04-23-2024 Mental Status Orientation Oriented x 4 [facility] 04-21-2024 Mental Status Oriented x 4 [facility] 04-20-2024 Mental Status [facility] 04-20-2024 [facility] Status [facility] 03-03-2024 Mental Status Orientation Orie nted x 4, Not oriented to person, Not oriented to place [facility] Clinical Notes 05-29-2022 to 08-05-2024 Telephone Encounter - Jaswinder Schmidt DO - 08/03/2024 5:13 PM EDTTelephone Encounter - Jaswinder Schmidt, - 08/03/2024 5:13 PM EDTTelephone Encounter - Kailee Chavezela JESSICA Patterson - 08/03/2024 4:42 PM EDT Note Date & Type Note Facility 08-05-2024 Hospital Discharge instructions Patient Education 08/05/2024 10:18:25 Total Hip Replacement, Anterior, Care After, Dyjb-mo-Mhfp Total Hip Replacement, Anterior, Care After This sheet gives you information about how to care for yourself after your procedure. Your doctor may also give you more specific instructions. If you have problems or questions, contact your doctor. What can I expect after the procedure? After the procedure, it is common to have: Pain. Stiffness. Discomfort. Follow these instructions at home: Medicines Take cpaz-geo-eaqvqca and prescription medicines only as told by [...] use soap and water, use alcohol-based hand forestry aid technician. ?Change your bandage as told by your [...] include fried or sweet foods. ?Take an sobf-bgx-swstkxi or prescription medicine for constipation. Do not [...] 01/21/2019 Document Revised: 02/15/2020 Document Reviewed: 01/21/2019 [employer] Patient Education 2020 [employer] 08/05/2024 09:34:27 5 - [facility] Post-op Instruction 05/2017 (34133) [facility] Post-operative Instructions PLEASE FOLLOW [facility] POST-OP INSTRUCTIONS GIVEN WATCH FOR SIGNS OF INFECTION: call the office ([phone]) if experencing any of the following: (Usually [...] on your follow up instructions. Form: 338A (65024) R: 02/24 Follow Up Care 07/06/2024 09:57:10 With:LUIS ELLIOTT Address: [address] [place] [address] [phone] When:08/14/2024 12:30:00 Comments:This is your post-op appointment with PCP to go over labwork results. Please have your labs drawn a few days prior to this appointment. With:TUSHAR SHIELDS PA-C, Orthopedic Address: [address] [place] [address] [address] [facility], [place] [address] [phone] When:08/18/2024 14:00:00 Comments:This is your post-op appointment. Follow-up as scheduled. [facility] 08-05-2024 Note Discharge Instructions Thank you for allowing [facility] to assist you with your healthcare needs. [...] next Instructions From Your Doctor Stable for ne Scheduled Follow-Up Appointments 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 When With Where Contact Information StatusPC OV Hospital Follow-Up 08/14/2024 12:30 PM EDT LUIS ELLIOTT [address] [phone] Confirmed PC OV 08/26/2024 02:00 PM EST LUIS ELLIOTT [address] [phone] Confirmed Follow Up Appointments Follow Up with LUIS ELLIOTT When:08/14/2024 12:30 PM EDT Where:[address] [place] [phone] [phone] Additional Information: This is your post-op appointment with PCP to go over labwork results. Please have your labs drawn a few days prior to this appointment. Follow Up with TUSHAR SHIELDS PA-C, Orthopedic When:08/18/2024 02:00 PM EDT Where:[address] [facility] [address] [facility], [place] [address]- [phone] Additional Information: This is your post-op appointment. Follow-up as scheduled. The Following Activity and Diet Have Been Ordered for You No qualifying data available. No qualifying data available. The Following Treatments Have Been Ordered for You Discharge Labs Discharge Outpatient Labwork - Ordered -- CBC and BMP, Anemia and chronic kidney disease, follow-up within: 1-2 weeks, Results Notify to: LUIS ELLOITT, 08/05/24 9:33:00 EDT Discharge Radiology No qualifying [...] 12 hours Duration: 14 Days Pickup at [id number] New oxyCODONE (oxyCODONE 5 mg oral tablet ( IMMEDIATE release )) See instructions S/P total left hip arthroplasty 1-2 tab(s) Oral q4h, As needed for as needed for pain Pickup at [facility] Changed acetaminophen (Tylenol) 1,000 Milligram [...] Pharmacy Information [id number]: [address] [place], [place] [phone] What How Much When Comments Stop Taking [...] were not tolerated. Extended-release oxycodone is for cncafj-zis-kvxtm treatment of severe and chronic pain that [...] by your doctor. Stop taking all other jgtjif-xzo-ulzon opioid pain medicines when you start taking [...] may report side effects to FDA at 1-755-IPV-6321. What other drugs will affect oxycodone? You [...] may affect oxycodone. This includes prescription and ofmh-out-axoqeeh medicines, vitamins, and herbal products. Not all [...] to ensure that the information provided by [employer]. ('[employer]') is accurate, up-to-date, and complete, but no guarantee is made to that effect. Drug information contained herein may be time sensitive. [employer] information has been compiled for use by healthcare practitioners and consumers in the [place] and therefore [employer] does not warrant that uses outside of the [place] are appropriate, unless specifically indicated otherwise. [employer]'s drug information does not endorse drugs, diagnose patients or recommend therapy. [employer] drug information is an informational resource designed [...] effective or appropriate for any given patient. [facility] does not assume any responsibility for any aspect of healthcare administered with the aid of information [facility] provides. The information contained herein is not intended to cover all possible uses, directions, precautions, warnings, drug interactions, allergic reactions, or adverse effects. If you have questions about the drugs you are taking, check with your doctor, nurse or pharmacist. Copyright 6943-8078 [facility] [employer]. Version: 17.. Revision Date: 11/12/2023. doxycycline (oral/injection) (DOX steph carroll) Acticlate, Adoxa, Alodox, Avidoxy, Doryx, Doryx MPC, Lymepak, Mondoxyne NL, Monodox, Morgidox, Morgidox 1j134ay, Morgidox 1w280mb, Okebo, Oracea, Targadox, Vibramycin, Vibramycin Monohydrate What [...] or life-threatening conditions such as anthrax or [place] spotted fever. The benefit of treating a [...] may report side effects to FDA at 7-575-ZTC-2709. What other drugs will affect doxycycline? Sometimes it is not safe to use certain medications at the same time. Some drugs can affect your blood levels of other drugs you take, which may increase side effects or make the medications less effective. Other drugs may affect doxycycline, including prescription and eyoj-pkh-ksmqxzp medicines, vitamins, and herbal products. Tell your [...] to ensure that the information provided by [employer]. ('[employer]') is accurate, up-to-date, and complete, but no guarantee is made to that effect. Drug information contained herein may be time sensitive. [employer] information has been compiled for use by healthcare practitioners and consumers in the [place] and therefore [employer] does not warrant that uses outside of the [place] are appropriate, unless specifically indicated otherwise. [employer]'s drug information does not endorse drugs, diagnose patients or recommend therapy. [employer]'s drug information is an informational resource designed [...] effective or appropriate for any given patient. [facility] does not assume any responsibility for any aspect of healthcare administered with the aid of information [facility] provides. The information contained herein is not intended to cover all possible uses, directions, precautions, warnings, drug interactions, allergic reactions, or adverse effects. If you have questions about the drugs you are taking, check with your doctor, nurse or pharmacist. Copyright 2667-1837 [employer]. Version: .. Revision Date: 06/26/2023. Education Materials [...] Follow these instructions at home: Medicines Take fifk-slh-wromheq and prescription medicines only as told by [...] use soap and water, use alcohol-based hand forestry aid technician. ? Change your bandage as told by [...] fried or sweet foods. ? Take an orrr-fzl-jmirkao or prescription medicine for constipation. Do not [...] Document Reviewed: 01/21/2019 Elsevier Patient Education 2020 [employer] [facility] Post-operative Instructions PLEASE FOLLOW [facility] POST-OP INSTRUCTIONS GIVEN WATCH FOR SIGNS OF INFECTION: call the office ([phone]) if experencing any of the following: (Usually [...] on your follow up instructions. Form: 338A (97753) R: 02/24 Additional Information VACCINATE! IT SAVES LIVES! Members of the community who have not yet received the COVID-19 vaccine and would like to receive it can visit one of [facility] vaccine clinics. There are many vaccine clinic locations within the [facility]. For locations and available times, please visit [email or web address] It is important to note that some COVID mobile vaccine clinics are held outdoors and may be canceled in rainy or stormy conditions. To learn more about pediatric vaccinations (ages 5-11), we invite you to visit the [employer] webpage. [email or web address] -Asked-Questions.html To learn more about the COVID-19 vaccine, we invite you to visit the CDC website for a list of frequently asked questions.https://www.cdc.gov/coron avirus/2019-ncov/vaccines/faq.html [facility] Patient Portal Access Instructions: Stay connected with your healthcare team and access your personal medical information anytime with the [facility] Patient Portal. Please follow the directions below to create your [facility] [employer] account: 1.Access the email account you provided upon registration to the hospital/physician office.2.Look for an invitation email from [facility].3.Open the email and access the invitation link: Accept Invitation to [employer].4.Fill in the required del real to create your account. To access your account, visit [email or web address]. Click the blue button labeled Access Patient [...] you will allow to register on the [facility] Patient Portal for access to your information. You can also access the [facility] Patient Portal on the [facility] juli. Simply click on Patient Portal and then log into your account. If you would like to receive a full copy of your medical records, please contact the [facility] Medical Records Department by calling [phone], Saturday through Saturday between 8 a.m. and [...] Call your local pharmacy or go to [email or web address] to find one close to you.3.Make use of household items: Use cat litter or old coffee grounds to dispose medications if other options are not available. Mix your drugs with these household products, seal them in an airtight container and throw it into the garbage. Call [facility]: [phone] to be sure your drugs can be [...] Materials Total Hip Replacement, Anterior, Care After, Smen-ld-Wjpt 5 - [facility] Post-op Instruction 05/2017 (07008) Medication Leaflets oxycodone, doxycycline (oral/injection) My discharge plan and instructions have been reviewed and explained to me and I,HERB VALDES understand my current condition and have read and understand these discharge instructions. I have received a written copy of the plan/instructions. If I have questions, I am aware that I should contact my doctor. Patient/[employer] Signature: ____ Date/Time: Relationship to Patient: __ Witness Name/Signature: Date/Time: [facility] 08-05-2024 Note Date of Service August [...] change her pharmacy as her pharmacy in [place] did not have any narcotics for discharge. [...] medications to elle Paige in [facility]. Due to shortage of pain medication at [facility] we did need to make a [...] JAMES MORALES PA-C on 08/05/2024 09:32 AM [facility] 08-05-2024 Pastoral care Progress note Pastoral Care Note Entered On: 08/05/2024 9:00 EDT Performed On: 08/05/2024 8:59 EDT by James Moralez Pastoral Care Type of Pastoral Visit : Initial visit Spiritual Care Visit Initiated by : Parole Agent Spiritual Care Reason for Visit : General [...] by James Moralez on 08/05/2024 08:59 AM [facility] 08-04-2024 Note ORIGINAL HISTORY: Arthroplasty COMPARISON: [...] 08/04/2024 1:20:15 PM Ordering Provider: MAGED PEDRO [facility] 08-04-2024 Note ORIGINAL Images acquired, not reported on this accession number. [facility] 08-04-2024 Anesthesiology Consult note Patient: HERB [...] Problem list: Medical Anemia / SNOMED CT 910590408 / Confirmed Bronchitis / SNOMED CT 16025208 / Confirmed CABG - Coronary artery bypass graft / SNOMED CT 371756352 / Confirmed CAD - Coronary artery disease / SNOMED CT 2499626169 / Confirmed Carotid stenosis, bilateral / SNOMED CT 447273061 / Confirmed CKD (chronic kidney disease) / SNOMED CT 5424629014 / Confirmed Constipation / SNOMED CT 66672927 / Confirmed Cystocele with prolapse / SNOMED CT 531832374 / Confirmed Depression / SNOMED CT 691762293 / Confirmed High risk medication use / SNOMED CT 446376851 / Confirmed SOB (shortness of breath) / SNOMED CT 184100490 / Confirmed HYPERTENSION, ESSENTIAL / SNOMED CT 67915024 / Confirmed Glasses / SNOMED CT 6077637335 / Confirmed Headache / SNOMED CT 54653167 / Confirmed Heart disease / SNOMED CT 99575633 / Confirmed History of carotid endarterectomy / SNOMED CT 7133926825 / Confirmed Hx of CABG / SNOMED CT 4846474348 / Confirmed History of PTCA / SNOMED CT 2996341205 / Confirmed Hypertension / SNOMED CT [id number] 4 / Confirmed Insomnia / SNOMED CT 547999541 / Confirmed Irritable bowel syndrome / SNOMED CT 96358437 / Confirmed Nephrolithiasis / SNOMED CT 076326600 / Confirmed Lipoma / SNOMED CT 167398873 / Confirmed B12 deficiency anemia / SNOMED CT 221031074 / Confirmed Osteoarthritis / SNOMED CT 3206573394 / Confirmed Osteonecrosis of hip / SNOMED CT 9997469265 / Confirmed Osteopenia of femoral neck / SNOMED CT 751005673 / Confirmed Preop cardiovascular exam / SNOMED CT 797315846 / Confirmed Medicare annual wellness visit, subsequent / SNOMED CT 213491869 / Confirmed S/P PTCA (PERCUTANEOUS TRANSLUMINAL CORONARY ANGIOPLASTY) / SNOMED CT 4171616018 / Confirmed Pulmonary emboli / SNOMED CT 44725266 / Confirmed Seasonal allergy / SNOMED CT 1485418980 / Confirmed Spasm of back muscles / SNOMED CT 497965858 / Confirmed Thoracic outlet syndrome / SNOMED CT 920243707 / Confirmed, Active Problems (35) Anemia B12 [...] syndrome Histories Past Medical History: Active Nephrolithiasis (527360539): Onset in 2007 at 52 years. Hypertension ([id number]) Comments: 03/24/2014 EDT 0:25 EDT MARCI MALDONADO MD active prior to hospital admissiion without ischemic sx or cardiac limitations. Pt denies recent changes in cardiac standpoint or change in medical managament. EKG NSR, old inf, ant Q waves and lateral t wave flattening. No prior EKG present for comparison. took metoprolol yesterday am CABG - Coronary artery bypass graft (394220575) Comments: 03/24/2014 EDT 0:27 MARCI PURVIS MD prior to CABG, pt states she had multiple stents placed for CAD. Remains on plavix for stent/shasta patency Seasonal allergy (0923258848) Constipation (87427906) Irritable bowel syndrome (76475858) Headache (36812238) Glasses (0615450353) Depression (125989552) Resolved Bowel obstruction ([id number] ): Resolved. Comments: 03/24/2014 EDT 0:12 MARCI PURVIS MD Admitted earlier today with Abdominal pain, CT scan with suggestion for Bowel obtruction. Insomnia (048296809): Resolved. Chest pain in adult (07713262): Resolved. Family History: Heart disease Mother Sister Brother Cancer Father Sister Brother Procedure history: Cardiac catheterization (53896737) on 03/11/2023 at 67 Years. Placement of stent ([id number]) on 03/11/2023 at 67 Years. Endarterectomy (6492737633) on 01/04/2020 at 64 Years. Nerve conduction study (02871024) on 02/06/2017 at 61 Years. Comments: 12/22/2020 7:59 Sharri Whitfield LPN [facility];abn CT angiography of neck (1241055501) on 12/12/2016 at 61 Years. Comments: 12/22/2020 8:01 Sharri Whitfield LPN [facility] Duplex ultrasound, carotid (000251967) on 11/14/2016 at 61 Years. Comments: 12/22/2020 8:06 Sharri Whitfield LPN abn Lithotripsy (638426537) in 2008 at 53 Years. section (23648052). Cholecystectomy (22911639). CABG x 1 - Coronary artery bypass graft x 1 (116422493). Colonoscopy (857657849). Abdominal hysterectomy (878479963). Coronary stent site (837443191). Carotid artery (239834676). Comments: 07/09/2018 21:07 EDT - MARCK Mcfadden left side x2 US - Ultrasound carotid (102282398). 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: grand dtr and her dad live w/her [...] Signs (last 24 hrs) Last Charted Temp Qcgvzdsp85.2 DegC (AUG 04 09:11) Heart Rate Zckhxxfmj47 bpm (AUG 04 11:15) WPN045 mmHg (AUG 04 11:10) DBP65 mmHg (AUG 04 11:10) Measurements from flowsheet : Measurements 08/04/2024 9:11 EDT Height 156 cm Admission Weight 57 kg Meyers Chuck Body Weight 48.76 kg Admission Body Mass [...] Lab results 08/04/2024 11:24 EDT SN - [place] - Route of Administration Local SN - [place] - Route of Administration Local SN - [place] - By (Single) SN - [place] - By (Single) SN - [place] - By (Single) SN - [place] - By (Single) 08/04/2024 11:15 EDT Heart [...] - Additive IRRIGATION CHG 0.05% IRRISEPT 12/ [id number] SN - Irl - Additive BETADINE (POVIDONE [...] Surgeon SN - CAt - Role Performed CLIP ON SUNGLASSES ASSEMBLER SN - CAt - Role Performed Scrub 1 SN - CAt - Role Performed Lacquer Pin Press Operator 1 SN - CAt - Role Performed Roustabout 1 SN - CAt - Role Performed Physician Ironmolder SN - CAt - Role Performed Production Line Operator 08/04/2024 10:03 EDT SN - Preop - [...] Height 156 cm Admission Weight 57 kg Meyers Chuck Body Weight 48.76 kg Admission Body Mass [...] Quadrants Present Skin Temperature Warm Skin Description [place] Skin Integrity Intact Mucous Membrane Color [place] Neurological Symptoms Patient denies Characteristics of Speech Clear Level of Consciousness Alert Strength All Extremities Strong Affect/Behavior Appropriate, Calm, Cooperative Orientation Oriented x 4 Standard Safety ID band on, Allergy Band on, Call device within reach, Bed in low position, Wheels locked, Non-Slip footwear 08/04/2024 9:08 EDT Designated Person #1 We May Share [facility] Zita [phone] Designated Person #1 Relationship Daughter Privacy Restrictions [...] Directive Type [place] Durable Power of Director [employer] [facility], [place] Declaration (Living Will) Advance Directive Location [...] evident Teaching Method Explanation Preferred Spoken Language Tajik Preferred Written Language Tajik Teaching Evaluation Verbalizes/Nonverbally indicates understanding Total Joint [...] by LOBITO CRUZ on 08/04/2024 11:30 AM [facility] 08-03-2024 Telephone encounter Note Spoke with Dr. Pedro. I called patient. She was taking apixaban consistently up until last . Held it after that. Surgical clearance provided. We faxed the form to his office. Jaswinder Schmidt DO [facility] 08-03-2024 Miscellaneous Notes Spoke with Dr. Pedro. I called patient. She was taking apixaban consistently up until last . Held it after that. Surgical clearance provided. We faxed the form to his office. Jaswinder Schmidt DO DR. Pedro would like to speak with you today concerning surgical clearance for tomorrow. cell number [phone] please call. Tracy Chavez LPN 's office called again stating that there has been some issue getting the surgery clearance form faxed to them so to have Herb cleared for the surgery tomorrow needs to speak with via a phone call. Please call 's cell phone at [phone] when able tonight so Herb can still [...] Pedro does not feel comfortable doing at [facility].Jenna Ramesh LPN TC to pt, no answer, no VM set up. Will try again later. Can let her know that the blood work we did the day of the office visit was suggestive that she still may have ongoing blood clots and she had been off the Eliquis. I spoke with Dr. Pedro. He does not feel comfortable doing her surgery at [facility] so he recommended a referral to a [facility] orthopedic surgeon. We could refer her to see someone at [place] or [facility]. Soonest appointment would be best. Tell her to continue Eliquis for now. Once she is reevaluated for surgery we can devise a plan to bridge her through with anticoagulation. Jaswinder Schmidt DO documented in this encounter [facility] 08-03-[address] Pedro would like to speak with you today concerning surgical clearance for tomorrow. cell number [phone] please call. Tracy Chavez LPN [facility] 08-03-2024 Telephone encounter Note 's office called again stating that there has been some issue getting the surgery clearance form faxed to them so to have Herb cleared for the surgery tomorrow needs to speak with via a phone call. Please call 's cell phone at [phone] when able tonight so Herb can still have surgery tomorrow. Maribeth Dunlap [facility] 08-03-2024 Telephone encounter Note Rodrigo called and stated they are needing the surgical clearance SAL because patient is on for surgery tomorrow. I did tell him we were waiting to hear back from the patient but we will get on this as quickly as possible. Maribeth Flores Pss [facility] 08-03-2024 Telephone encounter Note Patient called back. States she NO longer taking that medication. [facility] 08-03-2024 Telephone encounter Note Attempted to contact patient; VM full, unable to leave a message. Lynette Hendricks LPN [facility] 08-03-2024 Telephone encounter Note I received a form for surgical clearance for her. See if she is still taking apixaban. Jaswinder Schmidt DO [facility] 07-01-2024 Telephone encounter Note Spoke with patient. She states he has an appointment this Saturday with Dr. Pedro to discuss. She will call back and schedule with [facility] orth if needed. Patient informed of order/referral. [facility] Work Phone: 06-26-2024 Telephone encounter Note ATC patient but no answer and voicemail is full. Moon Ruggiero [facility] 06-26-2024 Telephone encounter Note TC to pt and discussed, she is agreeable to this. She will continue Eliquis and see a [facility] ortho. PSS please assist pt in scheduling with a [facility] ortho to move forward with hip relplacement surgery as Dr Pedro does not feel comfortable doing at [facility].Jenna Ramesh LPN [facility] 06-25-2024 Telephone encounter Note TC to pt, no answer, no VM set up. Will try again later. [facility] 06-25-2024 Telephone encounter Note Can let her know that the blood work we did the day of the office visit was suggestive that she still may have ongoing blood clots and she had been off the Eliquis. I spoke with Dr. Pedro. He does not feel comfortable doing her surgery at [facility] so he recommended a referral to a [facility] orthopedic surgeon. We could refer her to see someone at [place] or [facility]. Soonest appointment would be best. Tell her to continue Eliquis for now. Once she is reevaluated for surgery we can devise a plan to bridge her through with anticoagulation. Jaswinder Schmidt DO [facility] 06-17-2024 Note HNO ID: [id number] Author: JASWINDER SCHMIDT DO Service: ? Author [...] She was taken to the ED at [facility] on 04/19/2020 for 4 complaints of [...] was then taken to the ED at [facility] that night. CTA of the chest [...] interlobar septal thickening. She was transferred to [facility]. She was also diagnosed with E. coli bladder infection and septicemia, chronic kidney disease stage III, anemia and hyponatremia that resolved at the time of discharge. She self discontinued apixaban on May 27 or May 28 because she wants to have the hip replacement surgery. Seeing Dr. Maged Pedro at [facility] [place]. Denies cough and shortness of breath presently. [...] Lung Cancer Sister (more content not included)... [facility] 06-17-2024 History of Present illness Narrative [...] She was taken to the ED at [facility] on 04/19/2020 for 4 complaints of [...] was then taken to the ED at [facility] that night. CTA of the chest [...] interlobar septal thickening. She was transferred to [facility]. She was also diagnosed with E. coli bladder infection and septicemia, chronic kidney disease stage III, anemia and hyponatremia that resolved at the time of discharge. She self discontinued apixaban on May 27 or May 28 because she wants to have the hip replacement surgery. Seeing Dr. Maged Pedro at [facility]. Denies cough and shortness of breath presently. [...] lobe pulmonary artery. -Provoked PE--she was in [facility] ED with fever 4 days prior [...] which included preparing to see the patient, hnxm-qo-qpjg patient care, completing clinical documentation, obtaining and/or reviewing separately obtained history, performing a medically appropriate examination, counseling and educating the patient/family/caregiver, ordering medications, tests, or procedures, communicating with other HCPs (not separately reported), and communicating results to the patient/family/caregiver. Jaswinder Schmidt DO documented in this encounter [facility] 05-17-2024 Note . MICRO - Microbiology [...] Locations *1: This test was performed at: [address], [facility] , [facility] ([place]) 05-06-2024 Note ORIGINAL PROCEDURE: LEFT HIP ASPIRATION UNDER FLUOROSCOPY CLINICAL STATEMENT: Left hip pain hip pain, known joint effusion noted on recent CT abdomen and pelvis CLINICAL TRIALS NURSE: Samantha Gil PA-C ANESTHESIA: Local ASPIRATE: 20 [...] Sign Date: 05/06/2024 3:01:40 PM Ordering Provider: [facility] 05-06-2024 Note . MICRO - Microbiology PROCEDURE: [...] Locations *1: This test was performed at: [facility], [address] [place] [address], [address] , [facility] ([place]) 04-30-2024 Hospital Discharge instructions Patient Education 04/30/2024 [...] Follow these instructions at home: Medicines Take ybli-sam-rtoqpaq and prescription medicines only as told by [...] right away. Call your local emergency services (631 in the [place] Do not drive yourself [...] 10/04/2001 Document Revised: 07/15/2019 Document Reviewed: 07/15/2019 [employer] Patient Education 2020 [employer]. Follow Up Care 04/23/2024 23:53:31 With:JAIDEN ABDUL BA, MD, Infectious Disease, Infectious Disease Group Address: [facility] [address] [place] [address]- [phone] When:Within 2 Week(s) With:KAYDEN SANDERS DO, Orthopedic Address: [address] [place] [address]- [phone] When:Within 3 Week(s) With:LUIS ELLIOTT Address: [address] [place] [address]- Business (1) When:1-2 days Comments:Please call the office to schedule a hospital follow-up appointment. With:SHWETHA WATTERS MD, Orthopedic Address: [address] [facility], [place] [address]- [phone] When:Within 2 Week(s) Comments:for L hip AVN With:[facility] Address:Unknown When: Unknown Comments:They will call you before they come out. Call [phone] with any questions or concerns. Home Physical and occupational therapy will resume and an RN has been added. [facility] 04-30-2024 Discharge summary Date of Service 04/30/2024 [...] (F32.A - ICD-10-CM) Atherosclerotic heart disease of [place] coronary artery without angina pectoris (I25.10 - [...] (one day only), Blood, Once, Preferred Lab: [facility], Stop date 04/30/24 5:00:00 EDT(Complete) Other status: CBC,04/30/24 5:00:00 EDT, Next AM Draw (one day only), Blood, Once, Preferred Lab: [facility], Stop date 04/30/24 5:00:00 EDT(Complete) Other status: [...] BID, # 60 tab(s), 0 Refill(s), Pharmacy: [facility]/pharmacy #[id number], 155, cm, 04/24/24 4:14:00 EDT, Height, 65.6, kg, 04/24/24 4:14:00 EDT, Dosing Weight Ordered: cefdinir 300 mg oral capsule,Dose : 300 mg = 1 cap(s), Oral, q12h, X 14 day(s), # 28 cap(s), 0 Refill(s), 05/14/24 11:48:00 EDT, Pharmacy: [facility]/pharmacy #[id number], 155, cm, 04/24/24 4:14:00 EDT, Height, [...] Where:[facility] [address] [place] [address]- [phone] Follow Up with KAYDEN SANDERS DO, Orthopedic When:In 3 weeks Where:[address] [facility], [place] [address]- [phone] Follow Up with LUIS ELLIOTT When:Within 1-2 days Where:[address] [place] [address]- Business (1) Additional Information: Please call the office to schedule a hospital follow-up appointment. Follow Up with SHWETHA WATTERS MD, Orthopedic When:In 2 weeks Where:[address] [facility], [place] [address]- [phone] Additional Information: for L hip AVN Follow Up with [facility] Additional Information: They will call you before they come out. Call [phone] with any questions or concerns. Home Physical [...] RYAN CAMPBELL MD on 04/30/2024 02:[address] [facility] 04-30-2024 Note Discharge Instructions Thank you for allowing [facility] to assist you with your healthcare needs. The following is important discharge information regarding your hospital visit. Your Care Team LUIS ELLIOTT Your Diagnosis Acute rhinosinusitis B12 deficiency anemia Bilateral serous otitis media Depression Insomnia Insomnia What to do next Scheduled Follow-Up Appointments 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 When With Where Contact Information StatusPC OV 05/21/2024 03:00 PM EDT BALTES, LUIS MANAGER [facility] [address] [place] [phone] Confirmed CV OV 06/15/2024 03:00 PM EDT VELMA REYNOLDS [facility] Confirmed Follow Up Appointments Follow Up with JAIDEN ABDUL BA, MD, Infectious Disease, Infectious Disease Group When:In 2 weeks Where:[facility] [address] [place] [address]- [phone] Follow Up with KAYDEN SANDERS DO, Orthopedic When:In 3 weeks Where:[address] [facility], [place] [address]- [phone] Follow Up with LUIS ELLIOTT When:Within 1-2 days Where:[address] [place] [phone]- Business (1) Additional Information: Please call the office to schedule a hospital follow-up appointment. Follow Up with SHWETHA WATTERS MD, Orthopedic When:In 2 weeks Where:[address] [facility], [place] [address]- [phone] Additional Information: for L hip AVN Follow Up with [facility] Additional Information: They will call you before they come out. Call [phone] with any questions or concerns. Home Physical [...] Two (2) times a day Pickup at [facility]/pharmacy #[id number] New cefdinir (cefdinir 300 mg oral capsule) 1 cap by mouth Every 12 hours Duration: 14 Days Pickup at [facility]/pharmacy #[id number] Unchanged acetaminophen (Tylenol Extra Strength 500 [...] mouth Daily at bedtime Insomnia Pharmacy Information [facility]/pharmacy #[id number]: [address], [place] [phone] Please take this list to your next [...] may report side effects to FDA at [phone]. What other drugs will affect cefdinir? Tell your doctor about all your other medicines, especially: probenecid; or vitamin or mineral supplements that contain iron. This list is not complete. Other drugs may affect cefdinir, including prescription and lynd-txj-nlqtnce medicines, vitamins, and herbal products. Not all [...] to ensure that the information provided by [employer]. ('[employer]') is accurate, up-to-date, and complete, but no guarantee is made to that effect. Drug information contained herein may be time sensitive. [employer] information has been compiled for use by healthcare practitioners and consumers in the [place] and therefore [employer] does not warrant that uses outside of the [place] are appropriate, unless specifically indicated otherwise. [employer] drug information does not endorse drugs, diagnose patients or recommend therapy. [employer] drug information is an informational resource designed [...] effective or appropriate for any given patient. [employer] does not assume any responsibility for any aspect of healthcare administered with the aid of information [employer] provides. The information contained herein is not intended to cover all possible uses, directions, precautions, warnings, drug interactions, allergic reactions, or adverse effects. If you have questions about the drugs you are taking, check with your doctor, nurse or pharmacist. Copyright 8891-6337 [employer]. Version: 9.01. Revision Date: 05/24/2023. apixaban (a PIX a ban) Andrew What is the most important information I should know about apixaban? Apixaban increases your risk of severe or fatal bleeding, especially if you take certain medicines at the same time (including some wkro-yrg-qbgzkrz medicines). Tell your doctor about all medicines [...] may report side effects to FDA at 0-453-OXU-5113. What other drugs will affect apixaban? Sometimes it is not safe to use certain medications at the same time. Some drugs can affect your blood levels of other drugs you take, which may increase side effects or make the medications less effective. Many other drugs (including some kqhy-qio-prfiwts medicines) can increase your risk of bleeding or blood clots. Tell your doctor about all medicines you have recently used, especially: any other medicines to treat or prevent blood clots; a blood thinner such as heparin or warfarin (Coumadin, Jantoven); an antidepressant; or aspirin or other NSAID (nonsteroidal anti-inflammatory drug) used joint terminal attack controller. This list is not complete and many other drugs may affect apixaban. This includes prescription and cwmh-vlm-kunvpqa medicines, vitamins, and herbal products. Not all [...] to ensure that the information provided by [employer]. ('Multum') is accurate, up-to-date, and complete, but no guarantee is made to that effect. Drug information contained herein may be time sensitive. [employer] information has been compiled for use by healthcare practitioners and consumers in the [place] and therefore [employer] does not warrant that uses outside of the [place] are appropriate, unless specifically indicated otherwise. [employer] drug information does not endorse drugs, diagnose patients or recommend therapy. [employer] drug information is an informational resource designed [...] effective or appropriate for any given patient. [employer] does not assume any responsibility for any aspect of healthcare administered with the aid of information [employer] provides. The information contained herein is not intended to cover all possible uses, directions, precautions, warnings, drug interactions, allergic reactions, or adverse effects. If you have questions about the drugs you are taking, check with your doctor, nurse or pharmacist. Copyright 8264-5052 [employer]. Version: 6.01. Revision Date: 06/13/2021. Education Materials [...] Follow these instructions at home: Medicines Take cfrh-zpr-yildawk and prescription medicines only as told by [...] 10/04/2001 Document Revised: 07/15/2019 Document Reviewed: 07/15/2019 [employer] Patient Education 2020 [employer]. Additional Information VACCINATE! IT SAVES LIVES! Members of the community who have not yet received the COVID-19 vaccine and would like to receive it can visit one of [facility] vaccine clinics. There are many vaccine clinic locations within the [facility]. For locations and available times, please visit [email or web address] It is important to note that some COVID mobile vaccine clinics are held outdoors and may be canceled in rainy or stormy conditions. To learn more about pediatric vaccinations (ages 5-11), we invite you to visit the [facility] webpage. https://www.[facility].org/page s/8392-Vqzpg-Jseksacwgku-Frequently -Asked-Questions.html To learn more about the COVID-19 vaccine, we invite you to visit the CDC website for a list of frequently asked questions.https://www.cdc.gov/coron avirus/2019-ncov/vaccines/faq.html [employer] Patient Portal Access Instructions: Stay connected with your healthcare team and access your personal medical information anytime with the [employer] Patient Portal. Please follow the directions below to create your [facility] account: 1.Access the email account you provided upon registration to the hospital/physician office.2.Look for an invitation email from [facility].3.Open the email and access the invitation link: Accept Invitation to [employer].4.Fill in the required del real to create your account. To access your account, visit lee [email or web address] [email or web address]. Click the blue button labeled Access Patient [...] you will allow to register on the [employer] Patient Portal for access to your information. You can also access the [facility] Patient Portal on the [employer] Scorecardwhere juli. Simply click on Patient Portal and then log into your account. If you would like to receive a full copy of your medical records, please contact the [facility] Medical Records Department by calling [phone], Saturday through Saturday between 8 a.m. and [...] Call your local pharmacy or go to http://bit.ly/1W6Nz8h to find one close to you.3.Make use of household items: Use cat litter or old coffee grounds to dispose medications if other options are not available. Mix your drugs with these household products, seal them in an airtight container and throw it into the garbage. Call [facility]: [phone] to be sure your drugs can be [...] aware that I should contact my doctor. Patient/Trimmer [employer] Clippings Signature: ____ Date/Time: Relationship to Patient: __ Witness Name/Signature: Date/Time: [facility] 04-30-2024 Note Discharge Instructions Thank you for [...] OV 05/21/2024 03:00 PM EDT LUIS ELLIOTT [address] [id number] Confirmed CV OV 06/15/2024 03:00 PM EDT VELMA REYNOLDS PREETHI [facility] Confirmed Follow Up Appointments Follow Up with JAIDEN ABDUL BA, MD, Infectious Disease, Infectious Disease Group When:In 2 weeks Where:[facility] [id number] [place] [address] [phone] Follow Up with KAYDEN SANDERS DO, Orthopedic When:In 3 weeks Where:[address] [facility], [place] [address]- [phone] Follow Up with LUIS ELLIOTT When:Within 1-2 days Where:[address] [place] [phone] Business (1) Additional Information: Please call the office to schedule a hospital follow-up appointment. Follow Up with SHWETHA WATTERS MD, Orthopedic When:In 2 weeks Where:[address] [facility], [place] [address] [phone] Additional Information: for L hip AVN Follow Up with [facility] Additional Information: They will call you before they come out. Call [phone] with any questions or concerns. Home Physical [...] Two (2) times a day Pickup at [facility]/pharmacy #4605 New cefdinir (cefdinir 300 mg oral capsule) 1 cap by mouth Every 12 hours Duration: 14 Days Pickup at [facility]/pharmacy #4605 Unchanged acetaminophen (Tylenol Extra Strength 500 [...] mouth Daily at bedtime Insomnia Pharmacy Information [facility]/pharmacy #[id number]: [address], [place] [phone] Please take this list to your next doctor s visit. Bring all medications you take, including over the counter medications, herbals and other supplements with you to your doctor s visit. Patients and families are reminded to discard old lists and to update any records with all medication providers or retail pharmacies. Medication Leaflets cefdinir ([facility] mark carter) What is the [...] may report side effects to FDA at 0-070-FWK-0420. What other drugs will affect cefdinir? Tell your doctor about all your other medicines, especially: probenecid; or vitamin or mineral supplements that contain iron. This list is not complete. Other drugs may affect cefdinir, including prescription and veyt-ufj-rkzswly medicines, vitamins, and herbal products. Not all [...] to ensure that the information provided by [employer]. ('Multum') is accurate, up-to-date, and complete, but no guarantee is made to that effect. Drug information contained herein may be time sensitive. [employer] information has been compiled for use by healthcare practitioners and consumers in the [place] and therefore [employer] does not warrant that uses outside of the [place] are appropriate, unless specifically indicated otherwise. [employer]'s drug information does not endorse drugs, diagnose patients or recommend therapy. [employer] drug information is an informational resource designed [...] effective or appropriate for any given patient. [facility] does not assume any responsibility for any aspect of healthcare administered with the aid of information [facility] provides. The information contained herein is not intended to cover all possible uses, directions, precautions, warnings, drug interactions, allergic reactions, or adverse effects. If you have questions about the drugs you are taking, check with your doctor, nurse or pharmacist. Copyright 1822-4923 [facility]. Version: 9.. Revision Date: 05/24/2023. apixaban (a PIX a ban) Andrew What is the most important information I should know about apixaban? Apixaban increases your risk of severe or fatal bleeding, especially if you take certain medicines at the same time (including some elez-viv-dhtivsn medicines). Tell your doctor about all medicines [...] may report side effects to FDA at 9-033-SVX-1444. What other drugs will affect apixaban? Sometimes it is not safe to use certain medications at the same time. Some drugs can affect your blood levels of other drugs you take, which may increase side effects or make the medications less effective. Many other drugs (including some jhwh-gun-cgieimb medicines) can increase your risk of bleeding or blood clots. Tell your doctor about all medicines you have recently used, especially: any other medicines to treat or prevent blood clots; a blood thinner such as heparin or warfarin (Coumadin, Jantoven); an antidepressant; or aspirin or other NSAID (nonsteroidal anti-inflammatory drug) used alf. This list is not complete and many other drugs may affect apixaban. This includes prescription and qzog-zcq-hhxtojg medicines, vitamins, and herbal products. Not all [...] to ensure that the information provided by [employer]. ('Multum') is accurate, up-to-date, and complete, but no guarantee is made to that effect. Drug information contained herein may be time sensitive. [employer] information has been compiled for use by healthcare practitioners and consumers in the [place] and therefore [employer] does not warrant that uses outside of the [place] are appropriate, unless specifically indicated otherwise. [employer]'s drug information does not endorse drugs, diagnose patients or recommend therapy. [employer] drug information is an informational resource designed [...] effective or appropriate for any given patient. [employer] does not assume any responsibility for any aspect of healthcare administered with the aid of information [employer] provides. The information contained herein is not intended to cover all possible uses, directions, precautions, warnings, drug interactions, allergic reactions, or adverse effects. If you have questions about the drugs you are taking, check with your doctor, nurse or pharmacist. Copyright 1717-8782 [employer]. Version: 6.01. Revision Date: 06/13/2021. Education Materials [...] Follow these instructions at home: Medicines Take qblu-qbx-drwiuxu and prescription medicines only as told by [...] 10/04/2001 Document Revised: 07/15/2019 Document Reviewed: 07/15/2019 [employer] Patient Education 2020 [employer]. Additional Information VACCINATE! IT SAVES LIVES! Members of the community who have not yet received the COVID-19 vaccine and would like to receive it can visit one of [facility] vaccine clinics. There are many vaccine clinic locations within the [facility]. For locations and available times, please visit [email or web address]/. It is important to note that some COVID mobile vaccine clinics are held outdoors and may be canceled in rainy or stormy conditions. To learn more about pediatric vaccinations (ages 5-11), we invite you to visit the [facility] webpage. https://www.[email or web address].org/page s/9665-Tggmc-Nwljuibalkp-Frequently -Asked-Questions.html To learn more about the COVID-19 vaccine, we invite you to visit the CDC website for a list of frequently asked questions.https://www.cdc.gov/coron avirus/2019-ncov/vaccines/faq.html [facility] Patient Portal Access Instructions: Stay connected with your healthcare team and access your personal medical information anytime with the [employer] Patient Portal. Please follow the directions below to create your [employer] account: 1.Access the email account you provided upon registration to the hospital/physician office.2.Look for an invitation email from [facility].3.Open the email and access the invitation link: Accept Invitation to [employer].4.Fill in the required del real to create your account. To access your account, visit [email or web address]. Click the blue button labeled Access Patient [...] you will allow to register on the [employer] Patient Portal for access to your information. You can also access the [employer] Patient Portal on the Reach Clothingwhere juli. Simply click on Patient Portal and then log into your account. If you would like to receive a full copy of your medical records, please contact the [facility] Medical Records Department by calling [phone], Saturday through Saturday between 8 a.m. and [...] Call your local pharmacy or go to http://Fooda.LinQpay/[email or web address] to find one close to you.3.Make use of household items: Use cat litter or old coffee grounds to dispose medications if other options are not available. Mix your drugs with these household products, seal them in an airtight container and throw it into the garbage. Call [facility]: [phone] to be sure your drugs can be [...] aware that I should contact my doctor. 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, left groin/hip procedure [...] tab(s), Oral, qHS fluticasone nasal 0.05 mg/inh [place] 100 mcg 2 spray(s), Nostril, each, qDay [...] Lisa Jimenez RN on 04/30/2024 09:[address] [facility] 04-30-2024 Infectious disease Progress note Date of [...] 24 hours SKIN: BUE/facial skin discolorations/rash noted 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, left groin/hip procedure site with ecchymosis and bloody drainage noted HARP ACTION ASSEMBLER INCISIONS/DRESSINGS: None EXTREMITIES: BUE skin discolorations/rash-chronic, generalized [...] tab(s), Oral, qHS fluticasone nasal 0.05 mg/inh [place] 100 mcg 2 spray(s), Nostril, each, qDay [...] Lisa Jimenez RN on 04/30/2024 09:[address] [facility] 04-30-2024 Orthopaedic surgery Progress note Date of [...] BIB ARTIS DO on 04/30/2024 07:[address] [facility] 04-30-2024 Orthopaedic surgery Progress note Date of [...] BIB ARTIS DO on 04/30/2024 07:[address] [facility] 04-30-2024 Orthopaedic surgery Progress note Date of [...] BIB ARTIS DO on 04/30/2024 07:[address] [facility] 04-30-2024 Note . MICRO - Microbiology PROCEDURE: [...] Locations *1: This test was performed at: [facility], [address] [place] [address], [id number] , [facility] ([place]) 04-30-2024 Note . MICRO - Microbiology PROCEDURE: [...] Locations *1: This test was performed at: [facility], [address] [place] [address], [facility] , [facility] ([place]) 04-29-2024 Procedure note IR Brief Post Procedure Note Preprocedure Dx: left hip pain Post Procedure Dx: Same Procedure: LEFT hip aspiration Anesthesia: Local EBL: Minimal Complications: None Status: Unchanged Findings: 1. Successful LEFT hip aspiration. Collected 20mL cloudy yellow synovial fluid. Plan: 1. Synovial fluid sent to lab. Full report to follow. Samantha Gil PA-C Interventional Radiology Pager: [phone] IR dept: [id number] Available on Wanderable Digitally Signed by SAMANTHA GIL PA-C on 04/29/2024 01:[address] [facility] 04-29-2024 Note IR Procedure Record Summary Primary Physician: SAMANTHA GIL PA-C Finalized Date/Time: 04/29/24 13:51:11 Pt. Name: HERB VALDES/Sex: 1955 Female Med Rec #: [id number] Physician: CRISTIAN SOTO MD Financial #: [id number] Pt. Type: I Room/Bed: 66/A Admit/Disch: 04/24/24 [...] RN Corey Tech Role Performed Circulating Technologist Lacquer Pin Press Operator 1 Details Time In 04/29/24 13:29:00 04/29/24 [...] and Delonte Aguilar, results are properly Shonna Every1Mobile, labeled and MARCK Pitts appropriately displayed, Alcohol [...] Radiology - Action Plan Outcomes Met? Yes Mason Helper MARCK Pitts Completing Procedure Plan Last Modified By: MARCK Pitts 04/29/24 13:47:14 Case Comments Finalized By: MARCK Pitts Document Signatures Signed By: MARCK Pitts 04/29/24 13:[address] [facility] 04-29-2024 Note Subjective: Patient seen for acute [...] tab(s), Oral, qHS fluticasone nasal 0.05 mg/inh [place] 100 mcg 2 spray(s), Nostril, each, qDay [...] RYAN CAMPBELL MD on 04/29/2024 01:[address] [facility] 04-29-2024 Orthopaedic surgery Consult note Date of Service 04/28/2024 Reason for Consultation Left hip CT findings Referring Physician ID History of Present Illness Patient is a 68-year-old female who presents to [facility] for other medical conditions, however was noted [...] with Dr. 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., 10/01/2023 Nutrition/Health Type of [...] BIB ARTIS DO on 04/28/2024 04:[address] [facility] 04-28-2024 Note Subjective: Patient seen for acute [...] tab(s), Oral, qHS fluticasone nasal 0.05 mg/inh [place] 100 mcg 2 spray(s), Nostril, each, qDay [...] RYAN CAMPBELL MD on 04/28/2024 01:[address] [facility] 04-28-2024 Infectious disease Progress note Date of [...] tab(s), Oral, qHS fluticasone nasal 0.05 mg/inh [place] 100 mcg 2 spray(s), Nostril, each, qDay [...] Lisa Jimenez RN on 04/28/2024 10:[address] [facility] 04-28-2024 Infectious disease Progress note Date of [...] this morning SKIN: BUE skin discolorations/rash noted 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 MICRO - Microbiology PROCEDURE: Blood Culture (bacterial) [*1] SOURCE: Blood BODY SITE: COLLECTED DATE/TIME: 04/23/2024 21:31 EDT RECEIVED DATE/TIME: 04/24/2024 14:11 EDT START DATE/TIME: 04/24/2024 14:11 EDT FREE TEXT SOURCE: FINAL REPORTS Final Report [] Verified Date/Time/Personnel: 04/28/2024 07:53 EDT Escherichia coli Isolated from anaerobe bottle only. Refer to previous culture for susceptibility. [id number] Escherichia coli #2 Isolated from anaerobe bottle only. PRELIMINARY REPORTS Preliminary Report [] Verified Date/Time/Personnel: 04/27/2024 09:10 EDT Escherichia coli Isolated from anaerobe bottle only. Refer to previous culture for susceptibility. [id number] Escherichia coli #2 Isolated from anaerobe bottle [...] Locations *1: This test was performed at: [facility], [address] [place] [address], [facility] , [facility] ([place]) 04-27-2024 Note ORIGINAL EXAMINATION: CT OF THE [...] 04/27/2024 8:45:58 PM Ordering Provider: AGUILARRENITA LOPEZ [facility] 04-27-2024 Note Date of Service April 27, [...] tab(s), Oral, qHS fluticasone nasal 0.05 mg/inh [place] 100 mcg 2 spray(s), Nostril, each, qDay [...] AGUILAR LOPEZ MD on 04/27/2024 08:[address] [facility] 04-27-2024 Infectious disease Progress note Date of [...] 24 hours SKIN: BUE skin discolorations/rash noted 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 INCISIONS/DRESSINGS: None EXTREMITIES: [...] tab(s), Oral, qHS fluticasone nasal 0.05 mg/inh [place] 100 mcg 2 spray(s), Nostril, each, qDay [...] Lisa Jimenez RN on 04/27/2024 09:[address] [facility] 04-27-2024 Infectious disease Progress note Date of [...] 24 hours SKIN: BUE skin discolorations/rash noted 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 INCISIONS/DRESSINGS: None EXTREMITIES: [...] tab(s), Oral, qHS fluticasone nasal 0.05 mg/inh [place] 100 mcg 2 spray(s), Nostril, each, qDay [...] Lisa Jimenez RN on 04/27/2024 09:[address] [facility] 04-26-2024 Orthopaedic surgery Consult note Date of Service 04/25 Reason for Consultation Left hip avascular necrosis Referring Physician Medicine History of Present Illness Patient is a 68-year-old female who presents to [facility] for other medical conditions, however was noted [...] Use, 07/09/2018 Use: Never., 07/17/2019 Home/Environment Primary English 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 Lopez History of Present Illness 68-year-old female with past medical history of coronary artery disease status post CABG, bilateral carotid stenosis status post carotid enterectomy, hypertension, chronic anemia, CKD, depression, thoracic outlet syndrome, recent avascular necrosis of the left hip as a transfer from [place] with shortness of breath, altered mental status, nausea, vomiting and chills. She recently had fall last week and injured her left hip and was seen initially in the ER due to this and was found to have avascular necrosis and was sent home. A few days later, patient developed the above symptoms so came to the ER and was transferred from [place]. She does have history of cholecystectomy. 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 Lopez History of Present Illness 68-year-old female with past medical history of coronary artery disease status post CABG, bilateral carotid stenosis status post carotid enterectomy, hypertension, chronic anemia, CKD, depression, thoracic outlet syndrome, recent avascular necrosis of the left hip as a transfer from [facility] with shortness of breath, altered mental status, nausea, vomiting and chills. She recently had fall last week and injured her left hip and was seen initially in the ER due to this and was found to have avascular necrosis and was sent home. A few days later, patient developed the above symptoms so came to the ER and was transferred from [facility]. She does have history of cholecystectomy. 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 Was recently discharged from [facility] due to decreased ambulation left [...] flow (brisk flow). IMPRESSIONS: Severe CAD in [place]. Patent COTO to LAD. 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., 10/01/2023 Nutrition/Health Type of [...] LOUIS RUBIO MD on 04/24/2024 03:[address] [facility] 04-24-2024 Evaluation + Plan note Extrac tarun [...] Appointment Date:05/21/2024 03:00:00 PM Scheduled Provider:LUIS ELLIOTT Location:[facility] 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:PC OV Appointment Date:06/15/2024 03:00:00 PM Scheduled Provider:VELMA REYNOLDS Location:[facility] 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:CV OV Diagnostic Tests Pending * Sodium Random Urine 04/26/24 * Osmolality Urine 04/26/24 Future Scheduled Tests Laboratory* Complete Blood Count 10/03/23 Radiology* BD Bone Density DEXA Axial Skeleton 06/19/[address] [facility] 07-05-2024 Note* Exam Date Time Procedure Performing Provider Status 04/24/24 10:53 AM Echocardiogram, Adult - CV Auth (Verified) [facility] 07-05-2024 NoteSinus rhythm Inferior infarct, old Prolonged QT interval Electronic Signature: DANIELLE VARNER MD 04/24/2024 20:41:20[facility] 07-05-2024 Cardiology Consult note Date of Service [...] shortness of breath. Was recently discharged from [facility] due to decreased ambulationleft hip [...] flow (brisk flow). IMPRESSIONS: Severe CAD in [place]. Patent COTO to LAD. 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., 10/01/2023 Nutrition/Health Type of [...] LOUIS RUBIO MD on 04/24/2024 03:[address] [id number] NoteSinus rhythm Inferior infarct, old Electronic Signature: DANIELLE VARNER MD 04/24/2024 20:34:33[facility] 07-05-2024 NoteSinus rhythm Inferior infarct, old Abnormal T, consider ischemia, anterior leads Prolonged QT interval Electronic Signature: DANIELLE VARNER MD 04/24/2024 08:36:54[facility] 07-05-2024 History and physical note Date of Service 04/24/2024 Chief Complaint shortness of breath History of Present Illness 68-year-old female with a history of CAD status post CABG followed by stent placement 02/2023, bilateral carotid stenosis status post carotid endarterectomy, hypertension, chronic anemia, CKD, depression, thoracic outlet syndrome recently admitted to [facility] fo decreased ambulation and left hip pain [...] Use, 07/09/2018 Use: Never., 07/17/2019 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/Environment 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 MICRO - Microbiology PROCEDURE: [...] Locations *1: This test was performed at: [facility], [address] [place] [address], [facility] , [facility] ([place])04-21-2024 Hospital Discharge instructions Patient Education 04/21/2024 11:41:36 Vitamin B12 Deficiency, Kghg-ri-Hkfe Vitamin B12 Deficiency Vitamin B12 deficiency means [...] 09/25/2012 Document Revised: 06/16/2019 Document Reviewed: 06/16/2019 [employer] Patient Education 2020 [employer]. 04/21/2024 11:41:27 Anemia Anemia Anemia is a [...] spleen. Follow these instructions at home: Take lyxh-bas-tucisal and prescription medicines only as told by [...] 11/14/2005 Document Revised: 09/19/2018 Document Reviewed: 11/08/2017 [employer] Patient Education 2020 [employer]. 04/21/2024 11:41:21 Nausea and Vomiting, Adult, Uxvd-qc-Kxgm Nausea and Vomiting, Adult Nausea is feeling [...] fruit juice). ?Low-calorie sports drinks. Eat bland, ymsz-wi-wksgia foods in small amounts as you are able, such as: ?Bananas. ?Applesauce. ?Rice. ?Low-fat (lean) meats. ?Edmonson. ?Crackers. Avoid drinking fluids that have a lot of sugar or caffeine in them. This includes energy drinks, sports drinks, and soda. Avoid alcohol. Avoid spicy or fatty foods. General instructions Take sscx-rkp-kbrbzyx and prescription medicines only as told by your doctor. Drink enough fluid to keep your pee (urine) pale yellow. Wash your hands often with soap and water. If you cannot use soap and water, use hand forestry aid technician. Make sure that all people in your [...] too much water in your body. Take iyta-jzi-rmlnmro and prescription medicines only as told by [...] 03/25/2009 Document Revised: 01/29/2020 Document Reviewed: 03/17/2019 [employer] Patient Education 2020 [employer] 04/21/2024 11:41:15 Hyponatremia, Xszm-gp-Evyi Hyponatremia Hyponatremia is when the amount of [...] symptoms. Follow these instructions at home: Take ivik-stc-tgtprie and prescription medicines only as told by [...] 06/18/2012 Document Revised: 12/24/2019 Document Reviewed: 09/10/2019 [employer] Patient Education 2020 [employer] Follow Up Care 04/19/2024 21:05:26 With:VELMA REYNOLDS APRN-[facility] Address: [address] [facility] [address] [facility] [place] [phone] When:04/28/2024 14:15:00 Comments:This is your post-hospital follow-up appointment. With:LUIS ELLIOTT Address: [address] [place] [phone] When:04/28/2024 11:30:00 Comments:This is your post-hospital appointment. Follow-up as scheduled. [facility] 07-02-2024 Note Discharge Instructions Thank you for allowing [facility] to assist you with your healthcare needs. [...] Hospital Follow-Up 04/28/2024 11:30 AM LUIS COBOS [address] [id number] Confirmed CV OV Hospital Follow Up 04/28/2024 02:15 PM EDVELMA LAO [facility] Confirmed PC OV 05/21/2024 03:00 PM EDT LUIS ELLIOTT [address] [phone] Confirmed CV OV 06/15/2024 03:00 PM EDT VELMA REYNOLDS [facility] Confirmed Follow Up Appointments Follow Up with LUIS ELLIOTT When:04/28/2024 11:30 AM EDT Where:[address] [place] [phone] Additional Information: This is your post-hospital appointment. Follow-up as scheduled. Follow Up with VELMA REYNOLDS When:04/28/2024 02:15 PM EDT Where:[address] [facility]. [address] [place] [phone] Additional Information: This is your post-hospital follow-up [...] mouth Twice daily with meals Pickup at [facility]/pharmacy #[id number] DID NOT TAKE TODAY Unchanged acetaminophen (Tylenol [...] bedtime Insomnia DID NOT TAKE Pharmacy Information [facility]/pharmacy #[id number]: [address], [place] [phone] What How Much When Comments Stop Taking [...] may report side effects to FDA at 7-066-KKE-7262. What other drugs will affect oral cyanocobalamin? [...] drugs may affect cyanocobalamin, including prescription and dbxs-tig-qwrnquk medicines, vitamins, and herbal products. Not all [...] to ensure that the information provided by [employer]. ('[employer]') is accurate, up-to-date, and complete, but no guarantee is made to that effect. Drug information contained herein may be time sensitive. [employer] information has been compiled for use by healthcare practitioners and consumers in the [place] and therefore [employer] does not warrant that uses outside of the [place] are appropriate, unless specifically indicated otherwise. [employer]'s drug information does not endorse drugs, diagnose patients or recommend therapy. [facility] drug information isan informational resource designed to [...] effective or appropriate for any given patient. [facility] does not assume any responsibility for any aspect of healthcare administered with the aid of information [facility] provides. The information contained herein is not intended to cover all possible uses, directions, precautions, warnings, drug interactions, allergic reactions, or adverse effects. If you have questions about the drugs you are taking, check with your doctor, nurse or pharmacist. Copyright 5211-5005 [employer]. Version: 9.. Revision Date: 07/23/2023. carvedilol (SERA [...] may report side effects to FDA at 8-504-PVB-7488. What other drugs will affect carvedilol? Sometimes it is not safe to use certain medications at the same time. Some drugs can affect your blood levels of other drugs you take, which may increase side effects or make the medications less effective. Other drugs may affect carvedilol, including prescription and juej-wph-sljixxe medicines, vitamins,and herbal products. Tell your doctor [...] to ensure that the information provided by [employer]. ('[employer]') is accurate, up-to-date, and complete, but no guarantee is made to that effect. Drug information contained herein may be time sensitive. [employer] information has been compiled for use by healthcare practitioners and consumers in the [place] and therefore [employer] does not warrant that uses outside of the [place] are appropriate, unless specifically indicated otherwise. [employer] drug information does not endorse drugs, diagnose patients or recommend therapy. [employer] drug information isan informational resource designed to [...] effective or appropriate for any given patient. [employer] does not assume any responsibility for any aspect of healthcare administered with the aid of information [employer] provides. The information contained herein is not intended to cover all possible uses, directions, precautions, warnings, drug interactions, allergic reactions, or adverse effects. If you have questions about the drugs you are taking, check with your doctor, nurse or pharmacist. Copyright 3652-4646 [employer]. Version: 16.01. Revision Date: 02/12/2019. ondansetron (oral) [...] may report side effects to FDA at 5-685-VTR-9108. What other drugs will affect ondansetron? Ondansetron [...] interact with ondansetron. This includes prescription and mboq-ilj-zjgwoql medicines, vitamins, and herbal products. Give a [...] to ensure that the information provided by [employer]. ('[employer]') is accurate, up-to-date, and complete, but no guarantee is made to that effect. Drug information contained herein may be time sensitive. [employer] information has been compiled for use by healthcare practitioners and consumers in the [place] and therefore [employer] does not warrant that uses outside of the [place] are appropriate, unless specifically indicated otherwise. [employer] drug information does not endorse drugs, diagnose patients or recommend therapy. [employer] drug information isan informational resource designed to [...] effective or appropriate for any given patient. [employer] does not assume any responsibility for any aspect of healthcare administered with the aid of information [employer] provides. The information contained herein is not intended to cover all possible uses, directions, precautions, warnings, drug interactions, allergic reactions, or adverse effects. If you have questions about the drugs you are taking, check with your doctor, nurse or pharmacist. Copyright 9525-7287 [employer]. Version: 16.. Revision Date: 05/23/2023. Education Materials [...] 09/25/2012 Document Revised: 06/16/2019 Document Reviewed: 06/16/2019 [employer] Patient Education 2020 [employer]. Anemia Anemia is a condition in which [...] spleen. Follow these instructions at home: Take wcbi-ktk-ymbgwho and prescription medicines only as told by [...] 11/14/2005 Document Revised: 09/19/2018 Document Reviewed: 11/08/2017 [employer] Patient Education 2020 [employer] Nausea and Vomiting, Adult Nausea is [...] Follow these i (more content not included)... [facility]07-01-2024 Note Date of Service 04/20/2024 Chief Complaint pt [facility] with [facility] with c/o a fall. was seen this morning at [place] for nausea and abd pain. everything was negative at [place]. tonight she fell and couldnt get out of the tub. History of Present Illness Patient is a 68-year-old female, who follows with Luis Elliott CNP with a past medical history significant for CAD s/p PTCA and CABG, hypertension, chronic kidney disease, and depression[facility] Patient has an active history recently for ED visits as well as PCP visits. She states that she presented to [facility] ED yesterday morning due to nausea/vomiting and left hip pain. She has been bedbound for about 4 days due to nausea and vomiting and generally not feeling well. 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 Patient was referred to [facility] who plans for surgery in the future and was started on oxycodone for pain. She states that [facility] ED did some lab work and [...] oxycodone for pain. Has follow-up scheduled with [facility]. DVT prophylaxis with SCDs. 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 Has follow-up scheduled with [facility]. DVT prophylaxis with SCDs. Code status: [...] Appointment Date:04/28/2024 11:30:00 AM Scheduled Provider:LUIS ELLIOTT Location:[facility] 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:[facility] Hospital Follow-Up Appointment Date:04/28/2024 02:15:00 PM Scheduled Provider:VELMA REYNOLDS Location:[facility] 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:[facility] Hospital Follow Up Appointment Date:05/21/2024 03:00:00 PM Scheduled Provider:LUIS ELLIOTT Location:[facility] 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: OV Appointment Date:06/15/2024 03:00:00 PM Scheduled Provider:VELMA REYNOLDS Location:[facility] 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:[facility] Future Scheduled Tests Laboratory* Complete Blood Count 10/03/23 Radiology* BD Bone Density DEXA Axial Skeleton 06/19/23 [facility] 06-30-2024 Note ORIGINAL EXAMINATION: CT OF [...] Sign Date: 04/19/2024 11:32:28 PM Ordering Provider: [facility]06-30-2024 Note ORIGINAL EXAMINATION: CT OF THE [...] Sign Date: 04/19/2024 11:38:20 PM Ordering Provider: [facility]06-30-2024 Note ORIGINAL EXAMINATION: 2 XRAY VIEW [...] Sign Date: 04/19/2024 11:31:45 PM Ordering Provider: [facility]06-30-2024 Note ORIGINAL EXAMINATION: ONE XRAY VIEW [...] Sign Date: 04/19/2024 11:32:35 PM Ordering Provider: [facility]06-30-2024 NoteSinus rhythm Inferior infarct, old Baseline wander in lead(s) II,III,aVR,aVF Electronic Signature: KARAN FRANCOIS DO 04/19/2024 21:30:18[facility] 06-25-2024 Hospital Discharge instructions Patient Education [...] or swelling over your back or spine [phone] [employer]. [address] [place] [address]. All rights reserved. This information is not intended as a substitute for professional medical care. Always follow yourhealthcare professional's instructions. Follow Up Care 04/14/2024 16:32:09 With:KRISTINE WRIGHT MD, Neurosurgery Address: [address] [place] [address] [place] [phone] When:2-4 days only if needed With:[facility]OTT [facility] Address: [address] [place] [phone] When:2-4 days [facility] 06-25-2024 Note Discharge Instructions Thank you for allowing [facility] to assist you with your healthcare needs. The following is importantdischarge information regarding your hospital visit. Diagnosis from Today's Visit Sciatic pain What to Do Next Instructions from Your Care Team No qualifying data available. Post Acute Orders No qualifying data available. You Need to Schedule the Following Appointments Follow Up with KRISTINE WRIGHT MD, Neurosurgery When:Within 2-4 days, only if needed Where:[address] [place] [address] [phone] Follow Up with LUIS ELLIOTT When:Within 2-4 days Where:[address] [facility] [place] [phone] Allergies Ultram confusion codeine nausea lisinopril Cough [...] or swelling over your back or spine [phone] [employer]. [address] [place] [address], [place] [address]. All rights reserved. This information is not intended as a substitute for professional medical care. Always follow yourhealthcare professional's instructions. Additional Information VACCINATE! IT SAVES LIVES! Members of the community who have not yet received the COVID-19 vaccine and would like to receive it can visit one of [facility] vaccine clinics. There are many vaccine clinic locations within the [facility]. For locations and available times, please visit [email or web address]/. It is important to note that some COVID mobile vaccine clinics are held outdoors and may be canceled in rainy or stormy conditions. To learn more about pediatric vaccinations (ages 5-11), we invite you to visit the [facility] webpage. https://www.[facility].org/pages/8369-Mwntf-Gfgeqcewvjk-Ugqhzrgryc-Qiwrb-Tsf stions.htmlTo learn more about the COVID-19 vaccine, we invite you to visit the CDC website for a list of frequently asked questions. https://www.cdc.gov/coronavirus/2019-ncov/vaccines/faq.html [employer] Patient Portal Access Instructions: Stay connected with your healthcare team and access your personal medical information anytime with the [employer] Patient Portal. If you would like a full copy of your medical records please contact the [facility] Medical Records Department Saturday through Saturday between 8a.m. and 4:30p.m. Please follow the directions below to access the portal: 1.Access the email account you provided upon registration to the hospital.2.Look for an invitation email from [facility].3.Open the email and access the invitation link: Accept Invitation to [employer]4.Fill in the required del real to create your account. Sign into [email or web address] with your username and password that you [...] you will allow to register on the [employer] Patient Portal for access to your information. You can also access the [employer] Patient Portal on the [employer]. Simply click on Health Records under yetu and then click on the [employer] logo. HOW TO SAFELY DISPOSE OF PRESCRIPTION [...] Call your local pharmacy or go to http://Fooda.LinQpay/1O5Tb5i to find one close to you.3.Make use of household items: Use cat litter or old coffee grounds to dispose medications if other options arenot available. Mix your drugs with these household products, seal them in an airtight container andthrow it into the garbage. Call [facility]: [phone] to be sure your drugs can be [...] am aware that I should contactmy doctor. Patient/[employer] Signature: Date/Time: Relationship to Patient: Witness Name/Signature: Date/Time: [facility]05-14-2024 Hospital Discharge instructions Patient Education 03/03/2024 [...] affected hand Decreased movement of the hand [phone] [employer]. [address] [place] [address], [place] [address]. All rights reserved. This information is not intended as a substitute for professional medical care. Always follow yourhealthcare professional's instructions. Follow Up Care 03/03/2024 15:47:45 With:Go to emergency room if symptoms worsen Address:Unknown When:2-4 days With:LUIS ELLIOTT APRN-INDUSTRIAL TECH INSTRUCTOR Address: [address] [place], [place] [address], [place] [address]- [phone] When:5 to 7 days [facility] 05-14-2024 Note Discharge Instructions Thank you [...] Within 5 to 7 days Where: [address] [place] [phone] Allergies Ultram (confusion) codeine (nausea) lisinopril (Cough) [...] affected hand Decreased movement of the hand [phone] [employer]. [address] [place] [address], [place] [address]. All rights reserved. This information is not intended as a substitute for professional medical care. Always follow yourhealthcare professional's instructions. Additional Information VACCINATE! IT SAVES LIVES! Members of the community who have not yet received the COVID-19 vaccine and would like to receive it can visit one of [facility] vaccine clinics. There are many vaccine clinic locations within the [facility]. For locations and available times, please visit [email or web address]/. It is important to note that some COVID mobile vaccine clinics are held outdoors and may be canceled in rainy or stormy conditions. To learn more about pediatric vaccinations (ages 5-11), we invite you to visit the [facility] webpage. https://www.[email or web address].org/pages/5863-Qwtiu-Ciosdhbdtur-Bcbkhgrxke-Qwals-Wjh stions.htmlTo learn more about the COVID-19 vaccine, we invite you to visit the CDC website for a list of frequently asked questions. https://www.cdc.gov/coronavirus/2019-ncov/vaccines/faq.html [facility] [employer] Patient Portal Access Instructions: Stay connected with your healthcare team and access your personal medical information anytime with the [facility] Patient Portal. If you would like a full copy of your medical records please contact the [facility] Medical Records Department Saturday through Saturday between 8a.m. and 4:30p.m. Please follow the directions below to access the portal: 1.Access the email account you provided upon registration to the [facility].2.Look for an invitation email from [facility].3.Open the email and access the invitation link: Accept Invitation to [employer]4.Fill in the required del real to create [...] you will allow to register on the [facility] Patient Portal for access to your information. You can also access the [employer] Patient Portal on the Compositence. Simply click on Health Records under yetu and then click on the Shahla logo. [...] Call your local pharmacy or go to http://Fooda.LinQpay/2I6Xg8g to find one close to you.3.Make use of household items: Use cat litter or old coffee grounds to dispose medications if other options arenot available. Mix your drugs with these household products, seal them in an airtight container andthrow it into the garbage. Call [facility]: [phone] to be sure your drugs can be [...] am aware that I should contactmy doctor. Patient/Trimmer Press Clippings Signature: Date/Time: Relationship to Patient: Witness Name/Signature: Date/Time: [facility]05-14-2024 Note Discharge Instructions Thank you for allowing [facility] to assist you with your healthcare needs. [...] Within 5 to 7 days Where: [address] [facility] [place] [address] [phone] Allergies Ultram (confusion) codeine (nausea) lisinopril (Cough) [...] affected hand Decreased movement of the hand [id number] The [employer]. [address] [place] [address], [place] [address]. All rights reserved. This information is not intended as a substitute for professional medical care. Always follow yourhealthcare professional's instructions. Additional Information VACCINATE! IT SAVES LIVES! Members of the community who have not yet received the COVID-19 vaccine and would like to receive it can visit one of [facility] vaccine clinics. There are many vaccine clinic locations within the [facility]. For locations and available times, please visit www.[email or web address].[place].gov/. It is important to note that some COVID mobile vaccine clinics are held outdoors and may be canceled in rainy or stormy conditions. To learn more about pediatric vaccinations (ages 5-11), we invite you to visit the [facility] webpage. https://www.akBenbrias.org/pages/3731-Nhlbu-Tlmejnozzob-Dyfdcfxxfc-Uyoru-Uqt stions.htmlTo learn more about the COVID-19 vaccine, we invite you to visit the CDC website for a list of frequently asked questions. https://www.cdc.gov/coronavirus/2019-ncov/vaccines/faq.html [facility] Patient Portal Access Instructions: Stay connected with your healthcare team and access your personal medical information anytime with the [employer] Patient Portal. If you would like a full copy of your medical records please contact the [facility] Medical Records Department Saturday through Saturday between 8a.m. and 4:30p.m. Please follow the directions below to access the portal: 1.Access the email account you provided upon registration to the hospital.2.Look for an invitation email from [facility].3.Open the email and access the invitation link: Accept Invitation to [employer]4.Fill in the required del real to create your account. Sign into [email or web address] with your username and password that you [...] you will allow to register on the [employer] Patient Portal for access to your information. You can also access the [employer] Patient Portal on the Compositence. Simply click on Health Records under yetu and then click on the [employer] logo. HOW TO SAFELY DISPOSE OF PRESCRIPTION [...] Call your local pharmacy or go to http://Fooda.LinQpay/5D8Mo3t to find one close to you.3.Make use of household items: Use cat litter or old coffee grounds to dispose medications if other options arenot available. Mix your drugs with these household products, seal them in an airtight container andthrow it into the garbage. Call [facility]: [phone] to be sure your drugs can be [...] am aware that I should contactmy doctor. Patient/Trimmer Press Clippings Signature: Date/Time: Relationship to Patient: Witness Name/Signature: Date/Time: [facility]05-14-2024 Note ORIGINAL EXAMINATION: THREE XRAY VIEWS [...] Date: 03/03/2024 4:32:59 PM Ordering Provider: AKI [facility]08-30-2023 Note ORIGINAL EXAMINATION: BONE DENSITOMETRY 2023 3:18 [...] Date: 2023 3:45:59 PM Ordering Provider: LUIS [facility]10-25-2022 Note ORIGINAL NM MYOCARDIAL SPECT STRESS/REST [...] Sign Date: 08/14/2022 4:22:45 PM Ordering Provider:Velma [facility]10-25-2022 Note ORIGINAL NM MYOCARDIAL SPECT STRESS/REST CLINICAL [...] PM Sign Date: 08/14/2022 4:22:45 PM Ordering Provider:Velam [facility]08-09-2022 Hospital Discharge instructions Patient Education 05/29/2022 08:53:26 [...] 09:54:02 With:APRIL PABON JR, MD, Surgery Address: [address] [place] [phone] When: Unknown [facility] 08-09-2022 Summary of episode note Discharge Instructions Thank you for allowing [facility] to assist you with your healthcare needs. The following is importantdischarge information regarding your hospital visit. Your Care Team LUIS ELLIOTT What to do next Scheduled Follow-Up Appointments 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 When With Where Contact InformationPC OV Follow Up 07/31/2022 10:00 AM LUIS COBOS [address] [id number] Follow Up Appointments Follow Up with APRIL PABON JR, MD, Surgery When Where: [address] [place] [phone] Education Materials Minor Surgery Discharge Instructions __X__ [...] to receive it can visit one of [facility] vaccine clinics. There are many vaccine clinic locations within the [facility]. For locations and available times, please visit [email or web address]/. It is important to note that some COVID mobile vaccine clinics are held outdoors and may be canceled in rainy or stormy conditions. To learn more about pediatric vaccinations (ages 5-11), we invite you to visit the [facility] webpage. https://www.akBenbrias.org/pages/8233-Blfgg-Fqjymerziwo-Uuovzpypyf-Yqiho-Ukh stions.htmlTo learn more about the COVID-19 vaccine, we invite you to visit the [facility] website for a list of frequently asked questions. https://IceWEB/assets/Vsmlzzza-ngo-Mywyleoo/sgajh-Ijcwolc-Mxxeqparua _Asked-Questions.pdf [facility] Patient Portal Access Instructions: Stay connected with your healthcare team and access your personal medical information anytime with the [employer] Patient Portal.If you would like a full copy of your medical records, please contact the [facility] Medical Records Department, Saturday through Saturday between 8a.m. and 4:30p.m. Please follow the directions below to access the portal: 1.Access the email account you provided upon registration to the [facility].2.Look for an invitation email from [facility].3.Open the email and access the invitation link: Accept Invitation to [employer]4.Fill in the required del real to create your account. Sign into [email or web address] with your username and password that you [...] you will allow to register on the [employer] Patient Portal for access to your information. You can also access the [employer] [facility] Patient Portal on the [employer] juli. Simply click on Health Records under yetu and then click on the [employer] logo. HOW TO SAFELY DISPOSE OF PRESCRIPTION [...] Call your local pharmacy or go to http://Fooda.LinQpay/1Y4Tr9t to find one close to you.3.Make use of household items: Use cat litter or old coffee grounds to dispose medications if other options arenot available. Mix your drugs with these household products, seal them in an airtight container andthrow it into the garbage. Call [facility]: [phone] to be sure your drugs can be [...] am aware that I should contactmy doctor. Patient/Trimmer Press Clippings Signature: Date/Time: Relationship to Patient: Witness Name/Signature: [facility] Appointment Date:05/01/2022 09:00:00 AM Scheduled Provider:LUIS ELLIOTT Location:[facility] 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:PC OV [facility] Evaluation + Plan note Future Appointments Appointment Date:07/31/2022 10:00:00 AM Scheduled Provider:LUIS ELLIOTT Location:[facility] 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: OV Follow Up Future Scheduled Tests Laboratory* Urinalysis 05/01/22 * Urine Culture 05/01/22 Radiology* US Soft Tissue Mass 05/01/22 [facility] Evaluation + Plan note Future Appointments Appointment Date:07/31/2022 10:00:00 AM Scheduled Provider:LUIS ELLIOTT Location:[facility] 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: OV Follow Up Diagnostic Tests Pending * Folate Level 05/02/22 * Vitamin B12 Level 05/02/22 * Urine Culture 05/02/22 Future Scheduled Tests Laboratory* Urinalysis 05/01/22 * Urine Culture 05/01/22 Radiology* US Soft Tissue Mass 05/01/22 [facility] Evaluation + Plan note Future Appointments Appointment Date:07/31/2022 10:00:00 AM Scheduled Provider:LUIS ELLIOTT Location:[facility] 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:PC OV Follow Up Future Scheduled Tests Laboratory* Urinalysis 05/01/22 * Urine Culture 05/01/22 [facility] Evaluation + Plan note Future Appointments Appointment Date:08/30/2022 01:00:00 PM Scheduled Provider:VELMA REYNOLDS Location:[facility] 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:CV OV Appointment Date:09/06/2022 03:30:00 PM Scheduled Provider:LUIS ELLIOTT Location:[facility] 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:PC OV Future Scheduled Tests Laboratory* Urinalysis 05/01/22 * Thyroid Stimulating Hormone 07/30/22 * Urine Culture 05/01/22 * Complete Blood Count 07/30/22 * Lipid Profile 07/30/22 * Complete Metabolic Panel 07/30/22 [facility] Evaluation + Plan note Future Appointments Appointment Date:09/17/2022 03:15:00 PM Scheduled Provider:ANUM GUY MD [facility] 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: HAZARDOUS SUBSTANCES ENGINEER Appointment Date:10/11/2022 02:30:00 PM Scheduled Provider:VELMA REYNOLDS Location:[facility] 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:CV OV Appointment Date:12/06/2022 03:30:00 PM Scheduled Provider:LUIS ELLIOTT Location:[facility] 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:PC OV Follow Up Diagnostic Tests Pending * Urine Culture 09/10/22 * Antinuclear Antibody Screen, Serum 09/10/22 Future Scheduled Tests Laboratory* Urinalysis 05/01/22 * Thyroid Stimulating Hormone 07/30/22 * Urine Culture 05/01/22 * Complete Blood Count 07/30/22 * Lipid Profile 07/30/22 * Complete Metabolic Panel 07/30/22 [facility] Evaluation + Plan note Future Appointments Appointment Date:08/29/2023 03:30:00 PM Scheduled Provider:LUIS ELLIOTT Location:[facility] 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:PC Wellness Medicare Appointment Date:12/09/2023 03:00:00 PM Scheduled Provider:VELMA REYNOLDS Location:[facility] 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:CV OV Future Scheduled [...] BD Bone Density DEXA Axial Skeleton 05/29/23 [facility] Evaluation + Plan note Future Appointments Appointment Date:08/29/2023 03:30:00 PM Scheduled Provider:LUIS ELLIOTT Location:[facility] 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:PC Wellness Medicare Appointment Date:12/09/2023 03:00:00 PM Scheduled Provider:VELMA REYNOLDS Location:[facility] 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:CV OV Future Scheduled [...] BD Bone Density DEXA Axial Skeleton 06/19/23 [facility] Evaluation + Plan note Future Appointments Appointment Date:08/29/2023 03:30:00 PM Scheduled Provider:LUIS ELLIOTT Location:[facility] 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:PC Wellness Medicare Appointment Date:12/09/2023 03:00:00 PM Scheduled Provider:VELMA REYNOLDS Location:[facility] 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:CV OV Diagnostic Tests Pending * Methylmalonic Acid 08/01/23 Future Scheduled Tests Laboratory* Thyroid Stimulating Hormone 09/15/22 Radiology* BD Bone Density DEXA Axial Skeleton 06/19/23 [facility] evaluation + Plan note Future Appointments Appointment Date:02/20/2024 02:00:00 PM Scheduled Provider:LUIS ELLIOTT Location:[facility] 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:PC OV Appointment Date:06/15/2024 03:00:00 PM Scheduled Provider:VELMA REYNOLDS Location:[facility] 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:CV OV Future Scheduled Tests Laboratory* Complete Blood Count 10/03/23 Radiology* BD Bone Density DEXA Axial Skeleton 06/19/23 [facility] evaluation + Plan note Future Appointments Appointment Date:05/21/2024 03:00:00 PM Scheduled Provider:LUIS ELLIOTT Location:[facility] 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:PC OV Appointment Date:06/15/2024 03:00:00 PM Scheduled Provider:VELMA REYNOLDS Location:[facility] 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:CV OV Future Scheduled Tests Laboratory* Complete Blood Count 10/03/23 Radiology* BD Bone Density DEXA Axial Skeleton 06/19/23 [facility] evaluation + Plan note Future Appointments Appointment Date:04/28/2024 11:30:00 AM Scheduled Provider:LUIS ELLIOTT Location:[facility] 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:PC OV Hospital Follow-Up Appointment Date:04/28/2024 02:15:00 PM Scheduled Provider:VELMA REYNOLDS Location:[facility] 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:CV OV Hospital Follow Up Appointment Date:05/21/2024 03:00:00 PM Scheduled Provider:LUIS ELLIOTT Location:[facility] 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:PC OV Appointment Date:06/15/2024 03:00:00 PM Scheduled Provider:VELMA REYNOLDS Location:[facility] 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:CV OV Future Scheduled Tests Laboratory* Complete Blood Count 12/14/23 Radiology* BD Bone Density DEXA Axial Skeleton 06/19/23 [facility] Evaluation + Plan note Future Appointments Appointment Date:07/22/2024 03:30:00 PM Scheduled Provider:LUIS ELLIOTT Location:[facility] 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: OV Pre Op Appointment Date:08/26/2024 02:00:00 PM Scheduled Provider:LUIS ELLIOTT Location:[facility] 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: OV Diagnostic Tests Pending * MRSA (PCR) 07/14/24 Future Scheduled Tests Laboratory* Ferritin 05/21/24 * Folate Level 05/21/24 * Iron Level 05/21/24 * Thyroid Stimulating Hormone 05/21/24 * Vitamin B12 Level 05/21/24 * Complete Blood Count 05/21/24 * Complete Blood Count 10/03/23 * Vitamin D Level 05/21/24 * Complete Metabolic Panel 05/21/24 [facility] Evaluation + Plan note Future Appointments Appointment Date:08/14/2024 12:30:00 PM Scheduled Provider:LUIS ELLIOTT Location:[facility] 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:[facility] Hospital Follow-Up Appointment Date:08/26/2024 02:00:00 PM Scheduled Provider:LUIS ELLIOTT Location:[facility] 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: OV Future Scheduled Tests Laboratory* Ferritin 05/21/24 * Folate Level 05/21/24 * Iron Level 05/21/24 * Thyroid Stimulating Hormone 05/21/24 * Vitamin B12 Level 05/21/24 * Complete Blood Count 05/21/24 * Complete Blood Count 10/03/23 * Vitamin D Level 05/21/24 * Complete Metabolic Panel 05/21/24 [facility] Evaluation note* Diagnosis Single subsegmental pulmonary embolism without acute cor pulmonale (HCC)- [facility] Avascular necrosis of bone of left hip (HCC)- [facility] Narrative No data available for this section [facility] Hospital Discharge instructions No data available for this section [facility] Nurse Progress note* ASIYA Salazar: PERFORM Event Display: Progress Note-Nurse Authored Date: [id number] [facility] Progress note No data available for this section [facility] Summary note* ASIYA Salazar: PERFORM Event Display: Patient Summary Documents Authored Date: [id number] [facility] Summary Purpose Family History No Family History Records Found Advance Directives No Advanced Directives Records FoundNo Advanced Directives Records FoundNo Advanced Directives Records FoundNo Advanced Directives Records Found Reason for Referral Specialty Diagnoses / Procedures Referred By Jordon upton Referred To Contact Orthopedics Diagnoses Avascular necrosis of bone of left hip (HCC) Procedures CONSULT TO ORTHOPAEDICS OFFICE/OUTPATIENT [facility] 60 MINUTES Jaswinder Schmidt, [address] [place] [address] Referral ID Status Reason Start Date Expiration Date Visits Requested Visits Authorized [id number] Authorized PCP Requested Referral 06/25/2024 06/25/2025 1 1 Additional Source Comments Care Team (unrecognized sect ion and content) Mason Helper Relationship Specialty Start Date End Date Luis Elliott CNP [address] [place] [address] PCP - General Family Medicine 12/24/19 Velma Reynolds CNP [address] [place] [id number] Family Medicine 06/17/24 Mason Helper Relationship Specialty Start Date End Date Luis Elliott CNP [address] [place] [address] PCP - General Family Medicine 12/24/19 Velma Reynolds CNP [address] [place] [id number] Family Medicine 06/17/24 Care Team (unrecognized sect ion and content) Care Team Personnel Name: LUIS ELLIOTT Position: P4 Advanced Practice Nurse Med Service: Active Provider Member Role: Primary Care Physician Address: Address: [address] [place] [address]- Name: VELMA REYNOLDS Position: P4 Advanced Practice Nurse Med Service: Active Provider Member Role: Mortgage Analyst Address: Address: [address] [place] [address]- Name: MOLINA COPELAND MD Position: Physician Med Service: Admitting Member Role: Gauge Checker Address: Address: [address] [place] [address]- Care Team Related Persons Name: PIA VALDESER Address: Home [address] [place], [place] [id number] [place] Care Team Personnel Name: LUIS ELLIOTT Position: P4 Advanced Practice Nurse Med Service: Active Provider Member Role: Primary Care Physician Address: Address: [address] [place] [id number] [place] [address] Name: VELMA REYNOLDS Position: P4 Advanced Practice Nurse Med Service: Active Provider Member Role: Mortgage Analyst Address: Address: [address] [place] [address]- Name: MOLINA COPELAND MD Position: Physician Med Service: Admitting Member Role: Gauge Checker Address: Address: [facility] [address] [address]- Care Team Related Persons Name: PIA VALDESER Address: Home [address] [place], [place] [phone] [place] Care Team Personnel Name: LUIS ELLIOTT Position: P4 Advanced Practice Nurse Med Service: Active Provider Member Role: Primary Care Physician Address: Address: [address] [place] [address]- [place] Name: VELMA REYNOLDS Position: P4 Advanced Practice Nurse Med Service: Active Provider Member Role: Mortgage Analyst Address: Address: [address] [place] [address] [address] [place] [address]- Name: MOLINA COPELAND MD Position: Physician Med Service: Admitting Member Role: Gauge Checker Address: Address: [address] [facility] [address] [place] [address]- [place] Care Team Related Persons Name: AMANDA LEAWOOD Address: Home [address] [place], [place] [phone] [place] Care Team Personnel Name: LUIS ELLIOTT Position: P4 Advanced Practice Nurse Med Service: Active Provider Member Role: Primary Care Physician Address: Address: [address] [place] [address]- Name: VELMA REYNOLDS Position: P4 Advanced Practice Nurse Med Service: Active Provider Member Role: Mortgage Analyst Address: Address: [address] [place] [address] [place] [address]- Name: MOLINA COPELAND MD Position: Physician Med Service: Admitting Member Role: Gauge Checker Address: Address: [address] [facility] [address] [place] [address]- Care Team Related Persons Name: [place] VALDES Address: Home [address] [place], [place] [phone] [place] Care Team Personnel Name: LUIS ELLIOTT Position: P4 Advanced Practice Nurse Member Role: Primary Care Physician Address: Address: [address] [place] [address]- Name: VELMA REYNOLDS Position: P4 Advanced Practice Nurse Member Role: Mortgage Analyst Address: Address: [address] [facility] [address] [place] [address]- [place] Name: MOLINA COPELAND MD Position: Physician Member Role: Gauge Checker Address: Address: [address] [facility] [address] [place] [address]- [place] Care Team Related Persons Name: [place] VALDES Address: Home [address] [place], [place] [phone] Care Team Personnel Name: LUIS ELLIOTT GAMAINDUSTRIAL TECH INSTRUCTOR Position: P4 Advanced Practice Nurse Member Role: Primary Care Physician Address: Address: [address] [facility] [place] [address]- [place] Name: JYOTI VELMA APRN-INDUSTRIAL TECH INSTRUCTOR Position: P4 Advanced Practice Nurse Member Role: Mortgage Analyst Address: Address: [address] [place] [address] [address] [facility] [place] [address]- [place] Name: MOLINA COPELAND MD Position: Physician Member Role: Gauge Checker Address: Address: [address] [facility] [address] [place] [address]- Care Team Related Persons Name: [place] VAL[place] Address: Home [address] [place], [place] [phone] INFORMATION SOURCE (unrecogn ized section and content) DATE CREATED AUTHOR 06/12/2024 [facility] ([place]) DATE CREATED AUTHOR AUTHOR'S ORGANIZ ATION 08/06/2024 [facility] DATE CREATED AUTHOR AUTHOR'S ORGANIZ ATION 08/09/2024 [facility] DATE CREATED AUTHOR AUTHOR'S ORGANIZ ATION 08/13/2024 [facility] Source Comments (unrecognize d section and content) In the event this informatio n is protected by the Federal Confidentiality of Alcohol and Drug Abuse Patient Records regulations: The Federal rules restrict any use of the information to criminally investigate or prosecute any alcohol or drug abuse patient.[facility] the event this information is protected by the Federal Confidentiality of Alcohol and Drug Abuse Patient Records regulations: The Federal rules restrict any use of the information to criminally investigate or prosecute any alcohol or drug abuse patient.[facility] Reason for Visit (unrecogniz ed section [...] BE BASED ON THE PRIMARY CLINICAL RECORDS. [facility]. provides no warranty or guarantee of the accuracy or completeness of information in this document.
[2024-08-17 00:22] LABS: Amphetamine Urine VISTA NEGATIVE (<1000 ng/mL); Barbiturate Urine VISTA NEGATIVE (< 200 ng/mL); Benzodiazepine Urine VISTA NEGATIVE (< 200 ng/mL); Cocaine Urine VISTA NEGATIVE (< 300 ng/mL); Ecstacy Urine VISTA POSITIVE (< 500 ng/mL); Methadone Urine VISTA NEGATIVE (< 300 ng/mL); PCP Urine VISTA NEGATIVE (< 25 ng/mL); THC Urine VISTA NEGATIVE (< 50 ng/mL); Vista UDS pH Range 5
[2024-08-17 00:30] VITALS: BP 162/77; PULSE 84; RESP 18; TEMP 36.8; O2SAT 96
[2024-08-17 00:56] LABS: Ferritin 283 ng/mL (8-252); Iron 57 ug/dL (50-170); Iron Binding Capacity,Total 281 ug/dL (250-450); PERCENT IRON SATURATION 20.3 % (15.0-55.0)
[2024-08-17] MEDS: Ceftriaxone 1 GM/50 ML BAG IV ×2 (00:56→21:23)
[2024-08-17] MEDS: Acetaminophen 325 MG Tablet 650 MG PO ×2 (00:56→14:13)
[2024-08-17] MEDS: 0.9% Normal Saline (1000mL) 1,000 ML 70 ML IV (00:56)
[2024-08-17] MEDS: MELATONIN 3 MG TABLET PO (00:57)
[2024-08-17 01:15] LABS: Hemoglobin A1c 5.5 % (3.8-5.6)
[2024-08-17 04:51] VITALS: BP 109/72; PULSE 79; RESP 18; TEMP 36.3; O2SAT 96
[2024-08-17 05:45] LABS: Absolute Lymphocyte Count 1.45 X10^3/uL (0.83-4.51); Absolute Neutrophil Count 7.4 X10^3/uL (2.0-7.7); Basophil# 0.03 X10^3/uL; Basophil% 0.3 % (0-1); Eosinophil# 0.37 X10^3/uL; Eosinophils% 3.6 % (0-5); Hematocrit 24.2 % (37-47); Lymphocyte # 1.45 X10^3/ul (0.83-4.51); Mean Corp Hgb Conc 33.1 g/dL (32-36); Mean Corpuscular Hgb 31.6 pg (27.0-32.0); Mean Corpuscular Volume 95.7 fL (81-99); Mean Platelet Vol. 11.2 fl (6.2-12.0); Monocyte# 0.99 X10^3/uL; Monocyte% 9.6 % (0-10); NRBC Flagged by Analyzer 0.3 % (0-5); Neutrophil # 7.42 X10^3/uL (2.7-7.7); Neutrophil % 71.8 % (47-70); Platelet Count 300 K/mm3 (150-450); RBC Distribution Width SD 55.6 fl (35.1-43.9); Red Blood Count 2.53 M/mm3 (4.2-5.4); White Blood Count 10.3 K/mm3 (4.4-11.0)
[2024-08-17 06:00] VITALS: BMI 23.8
[2024-08-17 07:07] LABS: Cholesterol 109 mg/dL (200); High Density Lipoprotein 29 mg/dL; Triglycerides 100 mg/dL; Very Low Density Lipoprotein 20 mg/dL (5-40)
--- NOTE | 2024-08-17 07:14 | PN.HOSP_ITS ---
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 Talk screen was positive for opiates and MDMA. Was also found to have slightly abnormal urinalysis consistent with UTI. Admitted to a monitored bed for subsequent management Objective Data Objective Data Vital Signs: Vital Signs Temp Pulse Resp BP Pulse Ox O2 Del Method 97.4 F L 79 18 109/72 96 Room Air 08/17/24 04:51 08/17/24 04:51 08/17/24 04:51 08/17/24 04:51 08/17/24 04:51 08/17/24 04:51 Oxygen Delivery Method Room Air Weight: 58.9 kg Body Mass Index (BMI) 23.8 Intake & Output: Intake and Output for Last 24 Hours 08/15/24 08/16/24 08/17/24 23:59 23:59 23:59 Intake Total 350 / 350 Balance 350 / 350 Lab / Micro Data 08/17/24 05:19 08/17/24 05:19 Labs: Laboratory Results - last 24 hr 08/16/24 18:30: WBC 11.1 H, RBC 2.85 L, Hgb 8.8 L, Hct 27.7 L, MCV 97.2, MCH 30.9, MCHC 31.8 L, RDW Std Deviation 55.2 H, RDW Coeff of Dave 15.9 H, Plt Count 357, MPV 11.1, Immature Gran % (Auto) 0.600, Neut % (Auto) 73.8 H, Lymph % (Auto) 14.6 L, [place] % (Auto) 7.0, Eos % (Auto) 3.8, Baso % (Auto) 0.2, Absolute Neuts (auto) 8.2 H, Absolute Lymphs (auto) 1.62, Nucleated RBC % 0.3, PT 16.7 H, INR 1.4, Sodium 135 L, Potassium 4.6, Chloride 100, Carbon Dioxide 28.0, Anion Gap 7, BUN 20 H, Creatinine 1.31 H, Estim Creat Clear Calc 32.26, Est GFR (MDRD) Af Amer 51 L, Est GFR (MDRD) Non-Af 43 L, BUN/Creatinine Ratio 15.3, Glucose 108 H, Hemoglobin A1c 5.5, Lactic Acid 1.1, Calcium 9.5, Iron 57, TIBC 281, Iron Saturation 20.3, Ferritin 283 H, Total Bilirubin 0.70, AST 32, ALT 18, Alkaline Phosphatase 190 H, Troponin I High Sens 6, Total Protein 7.9, Albumin 2.9 L, G lobulin 5.0 H, Albumin/Globulin Ratio 0.6 L, Lipase 31, Folate 54.10 08/16/24 20:00: Urine Color Yellow, Urine Clarity Clear, Urine pH 6.0, Ur Specific [place] 1.015, Urine Protein 15 H, Urine Glucose (UA) Normal, Urine Ketones Negative, Urine Occult Blood Negative, Urine Nitrite Negative, Urine Bilirubin Negative, Urine Urobilinogen Normal, Ur Leukocyte Esterase 25 H, Urine RBC 0 SEEN, Urine WBC 5-10 SEEN, Ur Squamous Epith Cells 5-10 SEEN, Urine Bacteria 1+, Urine Mucus 0 SEEN, Urine Opiates Screen POSITIVE H, Urine Methadone Screen NEGATIVE, Ur Barbiturates Screen NEGATIVE, Ur Phencyclidine Scrn NEGATIVE, Ur Amphetamines Screen NEGATIVE, MDMA (Ecstasy) Screen POSITIVE H , U Benzodiazepines Scrn NEGATIVE, Urine Cocaine Screen NEGATIVE, U Cannabinoids Screen NEGATIVE, Ur Drug Screen Comment 08/17/24 05:19: WBC 10.3, RBC 2.53 L, Hgb 8.0 L, Hct 24.2 L, MCV 95.7, MCH 31.6, MCHC 33.1, RDW Std Deviation 55.6 H, RDW Coeff of Dave 16.0 H, Plt Count 300, MPV 11.2, Immature Gran % (Auto) 0.700, Neut % (Auto) 71.8 H, Lymph % (Auto) 14.0 L, [place] % (Auto) 9.6, Eos % (Auto) 3.6, Baso % (Auto) 0.3, Absolute Neuts (auto) 7.4, Absolute Lymphs (auto) 1.45, Nucleated RBC % 0.3, Triglycerides 100, Cholesterol 109, LDL Cholesterol 60, VLDL Cholesterol 20, HDL Cholesterol 29 L Micro: Microbiology 08/16/24 18:45 Stool Stool Occult Blood (ILIR) - Final Radiography Diagnostic Testing: Radiology Impression Brain CT 08/16/24 18:09 IMPRESSION: No acute findings in the head/brain. Mild chronic changes. Electronically Signed: Lois Beckett MD at 21:08 EDT , Chest X-Ray 08/16/24 18:35 IMPRESSION: No acute findings in the chest. Electronically Signed: Lois Beckett MD at 19:55 EDT , Physical Exam Narrative GENERAL: cooperative HEENT: Atraumatic; normocephalic EYES; Anicteric, Normal Conjunctiva NECK; supple, normal thyroid, RESPIRATORY: Diminished to auscultation CARDIOVASCULAR: Regular S1 S2, GI: soft, normoactive bowel sounds, : No Renal angle tenderness; EXTREMITIES: No edema, no clubbing, MUSCULOSKELETAL: no muscle wasting NEURO: Awake; no lateralizing signs. SKIN: No Rash PSYCH; Flat affect Assessment & Plan Assessment/Plan (1) Acute cystitis without hematuria: (2) Metabolic encephalopathy: (3) Adverse drug reaction: QUALIFIERS: Encounter type: initial encounter Qualified Code(s): T50.905A - Adverse effect of unspecified drugs, medicaments and biological substances, initial encounter PLAN: Plan Patient is a 69-year-old lady with recent right hip surgery at [facility] thank you discharged on oxycodone for pain presented to the emergency department with altered mental status. Talk screen was positive for opiates and MDMA. Was also found to have slightly abnormal urinalysis consistent with UTI. Admitted to a monitored bed for subsequent management Acute acute encephalopathy -(Metabolic as well as toxic) ?Patient was thought to have had an adverse reaction to oxycodone. Talk screen was positive for opiates as well as MDMA admitted to a monitored bed suspected offending medication discontinued 2. Acute cystitis ? Patient started on ceftriaxone urine culture sent 3. Recent right hip surgery on account of avascular necrosis ? At [facility]. Requested for PT OT eval social service manager to assist with discharge planning 4. History of pulmonary embolism ? Patient is on apixaban, held on admission on suspicion of possible GI bleed stool guaiac obtained in the ED was apparently negative repeat ordered 5. Anemia ? Secondary to chronic disorder as well as suspected acute blood loss anemia. Admitted to monitored bed ordered H&H daily, iron studies as well as stool guaiac. Monitoring H&H and transfuse if patient becomes symptomatic or hemoglobin falls below 7 patient was started on Protonix consult placed to GI 6. Coronary artery disease ? With previous CABG patient remains on guideline directed medical therapy. Patient is on clopidogrel held given suspected GI bleed 7. Dyslipidemia ?Patient is on statin therapy, continued at home dose 8. Hypertension ? Blood pressure controlled, home medications continued with dose adjustment as needed 9. Depression ? Patient is on duloxetine did continue 10. Carotid artery disease ? With previous carotid endarterectomy 11. GERD ? On PPI 12. DVT prophylaxis ? Bilateral SCDs for now Time spent in the patient's overall evaluation,decision-making process, review of diagnostic data, adjustment of management, discussion with other providers, nursing nursing and ancillary staff involved in patient's care documentation, 50 Minutes Charges/Coding Visit Charges Inpatient E&M: 98451 Subs Hosp L2
[2024-08-17 07:17] LABS: ALB/GLOB Ratio 0.6 RATIO (0.9-2.4); AST(SGOT) 17 U/L (15-37); Alanine Aminotransfer ALT/SGPT 12 U/L (13-56); Albumin, Serum 2.5 g/dL (3.2-5.0); Alkaline Phosphatase 159 U/L (45-117); Anion Gap 5 (5-15); BUN 20 mg/dL (7-18); BUN/Creat Ratio 16.7 RATIO (10-20); Calcium,Total 9.1 mg/dL (8.5-10.1); Chloride 104 mmol/L (98-107); EST Glomerular Filtration Rate 47 mL/min (>60); Est Glom Filt Rate - Afr Amer 57 mL/min (>60); Estimated Creatinine Clearance 34.01 ml/min; Globulin 4.1 g/dL (2.2-4.2); Glucose 92 mg/dL (74-106); Magnesium 1.8 mg/dL (1.6-2.6); Phosphorus 4.2 mg/dL (2.5-4.9); Potassium 4.1 mmol/L (3.5-5.1); Protein, Total 6.6 g/dL (6.4-8.2); Sodium Level 136 mmol/L (136-145)
[2024-08-17 07:59] VITALS: BP 127/75; PULSE 71; RESP 16; TEMP 36.2; O2SAT 96
[2024-08-17 08:21] LABS: Vitamin B12 768 pg/mL (211-911)
[2024-08-17] MEDS: Verapamil SR 240 MG Tablet 120 MG PO (08:58)
--- NOTE | 2024-08-17 09:00 | MRI_ITS ---
EXAM: MR HEAD WITHOUT INTRAVENOUS CONTRAST CLINICAL INDICATION: Altered mental status. TECHNIQUE: Multiplanar and multisequence MR images of the brain were obtained without intravenous contrast. COMPARISON: Noncontrast head CT 08/16/2024. FINDINGS: BRAIN AND EXTRA-AXIAL SPACES: Abnormal T2 signal in the deep cerebral white matter is consistent with chronic small vessel ischemic/degenerative changes. The cerebral and cerebellar sulci are prominent consistent with brain atrophy. No intra- or extra-axial hemorrhage. No intracranial mass or mass effect. Basal cisterns are patent. SELLA: Unremarkable. Normal sella turcica, pituitary gland, infundibular stalk, optic chiasm and hypothalamus. AUDITORY SYSTEM: Unremarkable. The internal auditory canals are patent. BONES/JOINTS: Unremarkable. No discrete lytic or blastic abnormalities. SINUSES: Mucosal thickening and probable retention cyst left maxillary sinus. MASTOID AIR CELLS: Unremarkable as visualized. Clear. ORBITS: Unremarkable as visualized. Both globes, extraocular muscles, optic nerves and retrobulbar fat appear unremarkable. VASCULATURE: Unremarkable as visualized. Normal flow voids in the major intracranial circulation. MRI/Brain without Contrast IMPRESSION: 1. Mild chronic small vessel ischemic/degenerative changes. 2. Mild cerebral and cerebellar atrophy. 3. Mucosal thickening and probable retention cyst left maxillary sinus. Electronically Signed: Srikanth Alvarez MD at 1:58 EDT ,
[2024-08-17] MEDS: DULoxetine Hcl 60 MG Capsule PO (09:05)
[2024-08-17] MEDS: Pantoprazole Sodium 40 MG Tablet PO (09:05)
[2024-08-17] MEDS: Doxycycline 100 MG CAPSULE PO ×2 (09:05→21:23)
[2024-08-17] MEDS: ALPRAZolam 0.5 MG Tablet 1 MG PO ×2 (09:05→15:00)
[2024-08-17 10:50] VITALS: BP 121/76; PULSE 72; RESP 18; TEMP 36.8; O2SAT 94
--- NOTE | 2024-08-17 11:40 | NURSING ---
This RN noticed at 0930 this morning that pt got xanax from the student, Domitila when it was supposed to be given for the MRI. MRI had called me this morning around 8am and told this RN that MRI would not be done until 1500 today. Pt is sleeping. This RN called MRI to see if we could fit her in right now and they could not and said her MRI still wont be until 1500. Dr. Jackson is aware of all the above.
[2024-08-17 14:19] VITALS: BP 126/58; PULSE 71; RESP 18; TEMP 36.5; O2SAT 97
--- NOTE | 2024-08-17 16:22 | CASEMGMT ---
Met with patient to complete STRAUSS form. STRAUSS form explained to patient who voiced understanding and signed form. Original form placed in pt?s chart and copy provided to patient. Constance Dale, Discharge Planning Asst
[2024-08-17] MEDS: 0.9% Normal Saline (500mL Bag) 500 ML 15 ML IV (18:14)
[2024-08-17] MEDS: Bisacodyl 5 MG Tablet PO (18:44)
[2024-08-17 21:10] VITALS: BP 129/61; PULSE 70; RESP 16; TEMP 36.8; O2SAT 99
[2024-08-17] MEDS: traZODone 50 MG Tablet PO (21:23)
[2024-08-18 03:30] VITALS: BP 135/63; PULSE 72; RESP 16; TEMP 36.7; O2SAT 96
[2024-08-18 04:00] VITALS: BMI 22.8
[2024-08-18 06:05] LABS: Magnesium 1.8 mg/dL (1.6-2.6); Phosphorus 3.4 mg/dL (2.5-4.9)
[2024-08-18 06:13] VITALS: BMI 22.8
--- NOTE | 2024-08-18 08:02 | RAD_ITS ---
INDICATION: Pain. EXAMINATION/TECHNIQUE: X-RAY - XR Hips Bilateral with Pelvis when performed; Min 5 Views COMPARISON: No relevant prior comparison study available FINDINGS: PELVIC BONES: No displaced fracture, destructive or sclerotic lesions. Note that overlapping bowel shadows may however obscure fine detail. Sacroiliac joints are unremarkable. No widening of the pubic symphysis. HIPS: There is mild degenerative arthrosis of the right hip joint with tiny marginal osteophyte formation. There is a left hip arthroplasty in place, with no periprosthetic fracture. SOFT TISSUES: No soft tissue swelling or gas. RAD/Hips B/L min 2 views w/ Pelvis IMPRESSION: Mild degenerative arthrosis of the right hip joint. Left hip arthroplasty. No evidence of displaced pelvic or hip fracture. Electronically Signed: Jackson Hilario MD at 16:04 EDT ,
--- NOTE | 2024-08-18 08:04 | PCM.PN.HOSP ---
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 Consult was placed to Dr. Angela who did perform patient recent surgery at [facility] Objective Data Objective Data Vital Signs: Vital Signs Temp Pulse Resp BP Pulse Ox O2 Del Method 98.1 F 72 16 135/63 H 96 Room Air 08/18/24 03:30 08/18/24 03:30 08/18/24 03:30 08/18/24 03:30 08/18/24 03:30 08/18/24 04:23 Oxygen Delivery Method Room Air Weight: 56.6 kg Body Mass Index (BMI) 22.8 Intake & Output: Intake and Output for Last 24 Hours 08/16/24 08/17/24 08/18/24 23:59 23:59 23:59 Intake Total 2119 Balance 2119 Lab / Micro Data 08/18/24 08:57 08/18/24 08:57 Labs: Laboratory Results - last 24 hr 08/17/24 05:19: Vitamin B12 768 08/18/24 05:13: Phosphorus 3.4, Magnesium 1.8 Micro: Microbiology 08/16/24 18:45 Stool Stool Occult Blood (ILIR) - Final Radiography Diagnostic Testing: Radiology Impression Carotid Duplex 08/16/24 23:56 Interpretation Summary Moderate (50-69%) stenosis right extracranial internal carotid. Mild (<50%) stenosis left extracranial internal carotid. The Right vertebral flow is bidirectional. The Left vertebral is patent and antegrade. Ordering Physician: Trung Deleon Referring Physician: Markell Harris Performed By: Latanya Tran, RVT Echocardiogram 08/16/24 23:56 Interpretation Summary Normal LV size. Left ventricular systolic function is normal. The left ventricular ejection fraction is 60 %. Stage 1 diastolic dysfunction. Contrast injection was performed. Ordering Physician: Trung Deleon Performed By: Katherine Saucedo RDCS and Student Brain MRI 08/17/24 09:00 IMPRESSION: 1. Mild chronic small vessel ischemic/degenerative changes. 2. Mild cerebral and cerebellar atrophy. 3. Mucosal thickening and probable retention cyst left maxillary sinus. Electronically Signed: Srikanth Alvarez MD at 1:58 EDT , Physical Exam Narrative GENERAL: cooperative HEENT: Atraumatic; normocephalic EYES; Anicteric, Normal Conjunctiva NECK; supple, normal thyroid, RESPIRATORY: Diminished to auscultation CARDIOVASCULAR: Regular S1 S2, GI: soft, normoactive bowel sounds, : No Renal angle tenderness; EXTREMITIES: No edema, no clubbing, MUSCULOSKELETAL: no muscle wasting NEURO: Awake; no lateralizing signs. SKIN: No Rash PSYCH; Flat affect Const alert, oriented x3, no apparent distress and average body habitus General Appearance: cooperative HEENT normocephalic, head/scalp atraumatic, hearing grossly normal bilaterally and moist oral mucous membranes Eyes PERRL and EOMs intact bilaterally Neck no lymphadenopathy and supple Resp normal respiratory effort, no retractions, no use of accessory muscles and clear to auscultation bilaterally Cardio regular rate and regular rhythm GI normal to inspection, nondistended, normoactive bowel sounds, soft to palpation, non-tender and non-distended Extremity Extremity Narrative: Evidence of recent Right total hip replacement with scar healing without signs of infection, dehiscence or vascular compromise. Skin Skin Narrative: Patient has no evidence of rash, abscess or jaundice. Neuro oriented x3, CN's II-XII intact bilaterally, moves all extremities and no focal motor deficits Sensorium / Orientation: awake, alert, oriented to person, oriented to place and oriented to time Speech: speech normal Psych affect normal Assessment & Plan Assessment/Plan (1) Acute cystitis without hematuria: (2) Metabolic encephalopathy: (3) Adverse drug reaction: QUALIFIERS: Encounter type: initial encounter Qualified Code(s): T50.905A - Adverse effect of unspecified drugs, medicaments and biological substances, initial encounter PLAN: Plan Patient is a 69-year-old lady with recent right hip surgery at [facility] thank you discharged on oxycodone for pain presented to the emergency department with altered mental status. UD screen was positive for opiates and MDMA. Was also found to have slightly abnormal urinalysis consistent with UTI. Admitted to a monitored bed for subsequent management 1. Acute acute encephalopathy -(Metabolic as well as toxic) ?Patient was thought to have had an adverse reaction to oxycodone. Talk screen was positive for opiates as well as MDMA admitted to a monitored bed suspected offending medication discontinued ? 08/18/2024; patient back to be 2. Acute cystitis ? Patient started on ceftriaxone urine culture sent 3. Recent right hip surgery on account of avascular necrosis ? At [facility]. Requested for PT OT eval hospice social worker to assist with discharge planning ? 08/18/2024; patient surgical incision remains intact however notes some swelling around the incision site no erythema consult was placed to the orthopedic service 4. History of pulmonary embolism ? Patient is on apixaban, held on admission on suspicion of possible GI bleed stool guaiac obtained in the ED was apparently negative repeat ordered 5. Anemia ? Secondary to chronic disorder as well as suspected acute blood loss anemia. Admitted to monitored bed ordered H&H daily, iron studies as well as stool guaiac. Monitoring H&H and transfuse if patient becomes symptomatic or hemoglobin falls below 7 patient was started on Protonix consult placed to GI 6. Coronary artery disease ? With previous CABG patient remains on guideline directed medical therapy. Patient is on clopidogrel held given suspected GI bleed 7. Dyslipidemia ?Patient is on statin therapy, continued at home dose 8. Hypertension ? Blood pressure controlled, home medications continued with dose adjustment as needed 9. Depression ? Patient is on duloxetine did continue 10. Carotid artery disease ? With previous carotid endarterectomy 11. GERD ? On PPI 12. DVT prophylaxis ? Bilateral SCDs for now Time spent in the patient's overall evaluation,decision-making process, review of diagnostic data, adjustment of management, discussion with other providers, nursing nursing and ancillary staff involved in patient's care documentation, 36 Minutes Charges/Coding Visit Charges Inpatient E&M: 59222 Subs Hosp L2
[2024-08-18 08:13] VITALS: O2SAT 92
[2024-08-18 09:05] LABS: Absolute Lymphocyte Count 1.25 X10^3/uL (0.83-4.51); Absolute Neutrophil Count 7.2 X10^3/uL (2.0-7.7); Basophil# 0.02 X10^3/uL; Basophil% 0.2 % (0-1); Eosinophil# 0.54 X10^3/uL; Eosinophils% 5.6 % (0-5); Hematocrit 25.8 % (37-47); Hemoglobin 8.4 g/dL (12.0-15.0); Lymphocyte # 1.25 X10^3/ul (0.83-4.51); Lymphocyte % 12.9 % (19-41); Mean Corp Hgb Conc 32.6 g/dL (32-36); Mean Corpuscular Hgb 31.1 pg (27.0-32.0); Mean Corpuscular Volume 95.6 fL (81-99); Mean Platelet Vol. 10.9 fl (6.2-12.0); Monocyte# 0.63 X10^3/uL; Monocyte% 6.5 % (0-10); NRBC Flagged by Analyzer 0.4 % (0-5); Neutrophil % 74.2 % (47-70); Platelet Count 349 K/mm3 (150-450); RBC Distribution Width CV 16.1 % (11.6-14.6); RBC Distribution Width SD 54.7 fl (35.1-43.9); White Blood Count 9.7 K/mm3 (4.4-11.0)
[2024-08-18 09:25] LABS: Anion Gap 7 (5-15); BUN 16 mg/dL (7-18); BUN/Creat Ratio 14.8 RATIO (10-20); Calcium,Total 9.2 mg/dL (8.5-10.1); Chloride 106 mmol/L (98-107); Creatinine, Serum 1.08 mg/dL (0.55-1.02); EST Glomerular Filtration Rate 53 mL/min (>60); Est Glom Filt Rate - Afr Amer 64 mL/min (>60); Estimated Creatinine Clearance 37.79 ml/min; Glucose 93 mg/dL (74-106); Magnesium 2.2 mg/dL (1.6-2.6); Phosphorus 3.6 mg/dL (2.5-4.9); Potassium 3.5 mmol/L (3.5-5.1); Sodium Level 139 mmol/L (136-145)
[2024-08-18 10:00] VITALS: BP 144/62; PULSE 78; RESP 16; TEMP 36.2; O2SAT 99
[2024-08-18] MEDS: Verapamil SR 240 MG Tablet 120 MG PO (10:08)
[2024-08-18] MEDS: Pantoprazole Sodium 40 MG Tablet PO (10:08)
[2024-08-18] MEDS: Doxycycline 100 MG CAPSULE PO (10:08)
[2024-08-18] MEDS: DULoxetine Hcl 60 MG Capsule PO (10:08)
[2024-08-18] MEDS: Acetaminophen 325 MG Tablet 650 MG PO (10:10)
--- NOTE | 2024-08-18 13:11 | DS.PCM_ITS ---
Providers Date of Admission: 08/16/24 Primary Care Physician: JOSE Henning Consultations 08/17/24 19:24 Consult: Orthopedics Routine Consulting Provider: Harjinder Rosas Reason for Consult: abnormal Lt hip deformity EMERGENT Consult: No MD Notified: Yes Date Notified: 08/18/24 Time Notified: 07:18 Method of Notification: Text Comments:: Dr. Hoang not taking consults at night, call in am Reason For Visit: ACUTE CYSTITIS, WITHOUT HEMATURIA & ALTERED Diagnosis Discharge Diagnosis (1) Acute cystitis without hematuria: Status: Acute Code(s): N30.00 - Acute cystitis without hematuria (2) Metabolic encephalopathy: Status: Acute Code(s): G93.41 - Metabolic encephalopathy (3) Adverse drug reaction: Status: Acute Code(s): T50.905A - Adverse effect of unspecified drugs, medicaments and biological substances, initial encounter Qualifiers: Encounter type: initial encounter Qualified Code(s): T50.905A - Adverse effect of unspecified drugs, medicaments and biological substances, initial encounter Plan Patient is a 69-year-old lady with recent right hip surgery at [facility] thank you discharged on oxycodone for pain presented to the emergency department with altered mental status. UD screen was positive for opiates and MDMA. Was also found to have slightly abnormal urinalysis consistent with UTI. Admitted to a monitored bed for subsequent management 1. Acute acute encephalopathy -(Metabolic as well as toxic) ?Patient was thought to have had an adverse reaction to oxycodone. Talk screen was positive for opiates as well as MDMA admitted to a monitored bed suspected offending medication discontinued ? 08/18/2024; patient back to be 2. Acute cystitis ? Patient started on ceftriaxone urine culture sent 3. Recent right hip surgery on account of avascular necrosis ? At [facility]. Requested for PT OT eval social service coordinator to assist with discharge planning ? 08/18/2024; patient surgical incision remains intact however notes some swelling around the incision site no erythema consult was placed to the orthopedic service 4. History of pulmonary embolism ? Patient is on apixaban, held on admission on suspicion of possible GI bleed stool guaiac obtained in the ED was apparently negative repeat ordered 5. Anemia ? Secondary to chronic disorder as well as suspected acute blood loss anemia. Admitted to monitored bed ordered H&H daily, iron studies as well as stool guaiac. Monitoring H&H and transfuse if patient becomes symptomatic or hemoglobin falls below 7 patient was started on Protonix consult placed to GI 6. Coronary artery disease ? With previous CABG patient remains on guideline directed medical therapy. Patient is on clopidogrel held given suspected GI bleed 7. Dyslipidemia ?Patient is on statin therapy, continued at home dose 8. Hypertension ? Blood pressure controlled, home medications continued with dose adjustment as needed 9. Depression ? Patient is on duloxetine did continue 10. Carotid artery disease ? With previous carotid endarterectomy 11. GERD ? On PPI 12. DVT prophylaxis ? Bilateral SCDs for now Time spent in the patient's overall evaluation,decision-making process, review of diagnostic data, adjustment of management, discussion with other providers, nursing nursing and ancillary staff involved in patient's care documentation, 36 Minutes Medications at Discharge Home Medications amlodipine 5 mg tablet 5 mg PO DAILY blood pressure 07/15/21 carvedilol 25 mg tablet 25 mg PO BID blood pressure 07/15/21 clopidogrel 75 mg tablet 75 mg PO DAILY 07/15/21 eszopiclone 3 mg tablet 3 mg PO QHS sleep 07/15/21 ondansetron 4 mg disintegrating tablet 4 mg PO Q8H PRN PRN Nausea #14 tabs 07/15/21 apixaban 5 mg tablet (Eliquis) 5 mg PO BID blood thinner 08/16/24 doxycycline hyclate 100 mg capsule 100 mg PO Q12.TCU 08/16/24 duloxetine 60 mg capsule,delayed release 60 mg PO DAILY depression 08/16/24 ferrous sulfate PO 08/16/24 pantoprazole 40 mg tablet,delayed release 40 mg PO DAILY GERD 08/16/24 trazodone 50 mg tablet 50 mg PO QHS sleep 08/16/24 verapamil 120 mg tablet,extended release 120 mg PO DAILY blood pressure 08/16/24 Physical Exam Narrative GENERAL: cooperative HEENT: Atraumatic; normocephalic EYES; Anicteric, Normal Conjunctiva NECK; supple, normal thyroid, RESPIRATORY: Diminished to auscultation CARDIOVASCULAR: Regular S1 S2, GI: soft, normoactive bowel sounds, : No Renal angle tenderness; EXTREMITIES: No edema, no clubbing, MUSCULOSKELETAL: no muscle wasting NEURO: Awake; no lateralizing signs. SKIN: No Rash PSYCH; Flat affect Weight / BMI Weight Weight: 56.6 kg Body Mass Index (BMI) 22.8 ABG / Lab / Microbiology Data 08/18/24 08:57 08/18/24 08:57 Laboratory: Laboratory Results - last 24 hr 08/18/24 05:13: Phosphorus 3.4, Magnesium 1.8 08/18/24 08:57: WBC 9.7, RBC 2.70 L, Hgb 8.4 L, Hct 25.8 L, MCV 95.6, MCH 31.1, MCHC 32.6, RDW Std Deviation 54.7 H, RDW Coeff of Dave 16.1 H, Plt Count 349, MPV 10.9, Immature Gran % (Auto) 0.600, Neut % (Auto) 74.2 H, Lymph % (Auto) 12.9 L, [place]wood % (Auto) 6.5, Eos % (Auto) 5.6 H, Baso % (Auto) 0.2, Absolute Neuts (auto) 7.2, Absolute Lymphs (auto) 1.25, Nucleated RBC % 0.4, Sodium 139, Potassium 3.5, Chloride 106, Carbon Dioxide 25.0, Anion Gap 7, BUN 16, Creatinine 1.08 H, Estim Creat Clear Calc 37.79, Est GFR (MDRD) Af Amer 64, Est GFR (MDRD) Non-Af 53 L, BUN/Creatinine Ratio 14.8, Glucose 93, Calcium 9.2, Phosphorus 3.6, Magnesium 2.2 Microbiology: Microbiology 08/16/24 18:45 Stool Stool Occult Blood (ILIR) - Final Radiography Diagnostic Testing: Radiology Impression Carotid Duplex 08/16/24 23:56 Interpretation Summary Moderate (50-69%) stenosis right extracranial internal carotid. Mild (<50%) stenosis left extracranial internal carotid. The Right vertebral flow is bidirectional. The Left vertebral is patent and antegrade. Ordering Physician: Trung Deleon Referring Physician: Markell Harris Performed By: Latanya Tran, RVT Echocardiogram 08/16/24 23:56 Interpretation Summary Normal LV size. Left ventricular systolic function is normal. The left ventricular ejection fraction is 60 %. Stage 1 diastolic dysfunction. Contrast injection was performed. Ordering Physician: Trung Deleon Performed By: Katherine Saucedo RDCS and Student Brain MRI 08/17/24 09:00 IMPRESSION: 1. Mild chronic small vessel ischemic/degenerative changes. 2. Mild cerebral and cerebellar atrophy. 3. Mucosal thickening and probable retention cyst left maxillary sinus. Electronically Signed: Srikanth Alvarez MD at 1:58 EDT , D/C Instructions Discharge Diet: No restrictions Discharge Activity: Return to Normal Activity Call your doctor if you observe: Fever of 101 or Higher, Shortness of breath, Fainting spells and Chest pain Meaningful Use Info Meaningful Use Meaningful Use Diagnoses (Choose all that apply): None applicable Ischemic Stroke Statin Dosing Therapy Reference: STATIN DOSE THERAPY REFERENCE: * Patients > 75 years receive moderate or high dose statin therapy. * Patients 75 years or YOUNGER should receive HIGH intensity statin dose unless contraindicated. You will be required to document reason for non-treatment if statin daily dose does not meet guidelines. HIGH DOSE STATIN THERAPY DAILY Atorvastatin > than or = to 40 mg Rosuvastatin > than or = to 20 mg Amlodipine + Atorvastatin > than or = to 2.5/40 mg Ezetimibe + Simvastatin 10/80 mg Simvastatin 80mg Discharge Plan Admission Admit Date/Time: 08/16/24 23:29 Attending Provider: Trung Jackson Primary Care Provider: Markell Harris NP Consulting Providers: Trung Deleon; Harjinder Rosas Discharge Orders/Prescriptions Prescriptions: Continued carvedilol 25 mg tablet 25 mg PO BID Patient Comments: TAKE 1 TABLET BY MOUTH TWICE DAILY. clopidogrel 75 mg tablet 75 mg PO DAILY Patient Comments: TAKE 1 TABLET BY MOUTH EVERY DAY amlodipine 5 mg tablet 5 mg PO DAILY Patient Comments: TAKE 1 TABLET BY MOUTH EVERY DAY eszopiclone 3 mg tablet 3 mg PO QHS Patient Comments: TAKE ONE TABLET BY MOUTH AT BEDTIME NEEDED FOR INSOMNIA ondansetron 4 mg tablet,disintegrating 4 mg PO Q8H PRN PRN (Reason: Nausea) Qty: 14 0RF verapamil 120 mg tablet extended release 120 mg PO DAILY doxycycline hyclate 100 mg capsule 100 mg PO Q12.TCU trazodone 50 mg tablet 50 mg PO QHS pantoprazole 40 mg tablet,delayed release (DR/EC) 40 mg PO DAILY duloxetine 60 mg capsule,delayed release(DR/EC) 60 mg PO DAILY Eliquis 5 mg tablet 5 mg PO BID ferrous sulfate [Iron (ferrous sulfate)] PO Discontinued oxycodone 5 mg tablet 5 - 10 mg PO Q4H PRN PRN (Reason: pain) Referrals / Follow Up: Tanner Hoang MD [Med Staff - Active Staff] - Within 1 Week Markell Harris NP, SOFTWARE PROJECT MANAGER-C [Primary Care Provider] - Within 1 Week Disposition Disposition (needs filled in before D/C Order can be placed): Home Health Service Charges/Coding Visit Charges Inpatient E&M: 51511 Disch Hosp >30min
--- NOTE | 2024-08-18 14:09 | CASEMGMT ---
Discharge Planning HH resumption referral sent to [facility]. Asked for confirmation on disciplines currently in place. Constance Dale DC Planning Asst.
--- NOTE | 2024-08-18 15:40 | CASEMGMT ---
Patient has order for discharge. RN CM in to discuss needs at discharge. Patient is active with [facility]. Patient wishes to return home with resumption of HHC with [facility]. Patient declined further needs or concerns at discharge. Discharge strategic planning manager requested to send resumption referral to [facility].
[2024-08-18 16:00] VITALS: BP 132/67; PULSE 77; RESP 16; TEMP 36.4; O2SAT 99
== END 2024-08-18 13:10 | disposition home health service (06) ==
LOC: ED 22:32 → PCU 23:53
PROVIDERS: Nurse Practitioner; Admitting Provider Internal Medicine; Emergency Provider Emergency Medicine; PCP Nurse Practitioner Primary Care; Visit Provider Internal Medicine
DX: N30.00 Acute cystitis without hematuria (principal); Z95.1 Presence of aortocoronary bypass graft; G92.8 Other toxic encephalopathy; Z87.891 Personal history of nicotine dependence; I10 Essential (primary) hypertension; T40.2X5A Adverse effect of other opioids, initial encounter; E78.5 Hyperlipidemia, unspecified; R47.81 Slurred speech; D63.8 Anemia in other chronic diseases classified elsewhere; Z79.01 Long term (current) use of anticoagulants; I25.10 Atherosclerotic heart disease of native coronary artery without angina pectoris; Z79.899 Other long term (current) drug therapy; Z79.02 Long term (current) use of antithrombotics/antiplatelets; K21.9 Gastro-esophageal reflux disease without esophagitis; Z86.711 Personal history of pulmonary embolism; F32.A Depression, unspecified
CPT/HCPCS: 36415; 70450; 70551; 71045; 73521; 80048; 80053; 80061; 80307; 81001; 82274; 82607; 82728; 82746; 83036; 83540; 83550; 83605; 83690; 83735; 84100; 84443; 84484; 85025; 85610; 93005; 93306; 93880; 96365; 96366; 97110; 97162; 97166; 97530; 97535; 99221; 99285; J7030; J7040; Q9957; C8929; G0378